=== PATIENT | female | born 1945 | race Caucasian/White ===

== ENCOUNTER 2017-04-17 18:34 | Inpatient (IN) | payer MEDICARE, MEDICAID ==
[2017-04-17 18:45] VITALS: BMI 60.2
[2017-04-17] MEDS ORDERED: Albuterol-Ipratrop 3 mg / 0.5 (3 ml) UD INH STA ×3 (19:14→22:26)
--- NOTE | 2017-04-17 19:14 | C.PDOC ---
History Of Present Illness 71 year old female was brought to the ED from shelter after being found on the floor. Patient is known to be lethargic and complains of a headache. She denies nausea, vomiting, or fever. Chief Complaint (Nursing): Altered Mental Status History Per: EMS History/Exam Limitations: None Onset/Duration Of Symptoms: Hrs Onset Of Symptoms: Cannot Confirm Onset Current Symptoms Are (Timing): Still Present Usual Baseline: Other (patient is known to be lethargic ) Use Of Anticoag/Antiplatelets: No Recent travel outside of the [place]: No Additional History Per: Patient, Halfway Associated Symptoms: denies: Fever, Vomiting, Diarrhea Past Medical History Reviewed: Historical Data, Nursing Documentation, Vital Signs Vital Signs: Last Vital Signs Temp 99.2 F 04/17/17 18:45 Pulse 79 04/17/17 22:55 Resp 16 04/17/17 22:55 BP 136/58 L 04/17/17 22:55 Pulse Ox 93 L 04/17/17 22:55 - Medical History PMH: Anemia, Anxiety, Arthritis, Bipolar Disorder, COPD (on Bipap at night), Depression, HTN, Hypothyroidism, Parkinson's Disease, Sleep Apnea (on Bipap) - [facility] [place] Procedures ASSISTANCE WITH RESPIRATORY VENTILATION, 24-96 HRS, CPAP (10/21/16) CONTINUOUS INVASIVE MECHANICAL VENTILATION <96 CONSEC HRS (12/29/12) CONTINUOUS INVASIVE MECHANICAL VENTILATION =/>96 CONSEC HRS (02/28/13) DX ULTRASOUND-HEART (08/29/13) EXCISION OF RIGHT BREAST, OPEN APPROACH, DIAGNOSTIC (09/18/15) INCIS W REM OF FORIEGN BODY OR DEV FROM SKIN & SUBCUT TISSUE (08/29/13) INSERT ENDOTRACHEAL TUBE (02/28/13) INSERT INDWELLING CATH (12/26/12) INSERTION OF INFUSION DEV INTO SUP VENA CAVA, PERC APPROACH (10/21/16) NON-INVASIVE MECHANICAL VENTILATION (08/29/13) Family History: States: Unknown Family Hx - Social History Hx Tobacco Use: (Unknown) Hx Alcohol Use: No Hx Substance Use: No - Immunization History Hx Tetanus Toxoid Vaccination: No Hx Influenza Vaccination: No Hx Pneumococcal Vaccination: No (05/28/2009) Review Of Systems Constitutional: Negative for: Fever, Chills Cardiovascular: Negative for: Chest Pain Respiratory: Negative for: Cough, Shortness of Breath Gastrointestinal: Negative for: Nausea, Vomiting, Abdominal Pain, Diarrhea Neurological: Positive for: Headache Physical Exam - Physical Exam Appears: Non-toxic, No Acute Distress Skin: Warm, Dry Head: Atraumatic Eye(s): bilateral: Normal Inspection, PERRL, EOMI Oral Mucosa: Moist Neck: Supple Chest: Symmetrical, No Deformity Cardiovascular: Rhythm Regular, No Murmur Respiratory: No Rales, No Rhonchi, No Wheezing, Other (diminished breath sounds bilaterally ) Gastrointestinal/Abdominal: Soft, No Tenderness, No Distention, No Guarding, No Rebound Extremity: No Tenderness, No Calf Tenderness, Capillary Refill (good capillary refill, less than two seconds ), No Deformity, No Swelling Neurological/Psych: Other (Patient is arousable and able to answer questions. No focal defecits. ) ED Course And Treatment - Laboratory Results Result Diagrams: 04/17/17 19:20 04/17/17 20:44 ECG: Interpreted By Me, Viewed By Wy ECG Rhythm: Sinus Rhythm ECG Interpretation: Normal, No Acute Changes Interpretation Of ECG: NSR, no T wave abnormlity, normal tracings Rate From EC O2 Sat by Pulse Oximetry: 89 (on room air. Patient at 100 Sat on O2 mask. ) Pulse Ox Interpretation: Abnormal - Radiology CXR: Interpreted by Me, Viewed By Me CXR Interpretation: Yes: No Acute Disease, Other (potable chest-no definite infiltrate noted) - CT Scan/US Head CT W/O contrast Other Rad Studies (CT/US): Read By Radiologist, Radiology Report Reviewed CT/US Interpretation: FINDINGS: Brain: There is mild cortical atrophy noted of the left cerebral hemisphere as compared to the right. No hemorrhage. No significant white matter disease. No edema. Ventricles: Unremarkable. No ventriculomegaly. Bones/joints: There is hyperostosis frontalis interna. No acute fracture. Soft tissues: There are 6 para falcine lipomas. The largest measures 3 mm. Sinuses: There is opacification of the right maxillary sinus. Mastoid air cells: Motion artifact degrades images at the skull base. There is opacification of the right. mastoid air cells.. Other: There are bilateral ocular lens implants. IMPRESSION: 1. Opacified right maxillary sinus. 2. 6 para falcine lipomas. The largest measures 3 mm. 3. Mild global atrophy of the left cerebral hemisphere as compared to the right. 4. Partial opacification of the right mastoid air cells. Progress Note: Head CT, EKG, CXR, UA, and labs were ordered. Patient was given albuterol and IV fluids. ABG shows respiratory acidosis. Patient placed on BIPAP. Family presents document of patient's DNI. Disposition Discussed With Dr.: Hayden Tovar Jr. Doctor Will See Patient In The: Hospital Counseled Patient/Family Regarding: Diagnosis - Disposition Disposition: HOSPITALIZED Disposition Time: 22:58 Condition: GUARDED Forms: [employer] (Greenlandic) - POA Present On Arrival: None - Clinical Impression Clinical Impression: Respiratory failure, COPD (chronic obstructive pulmonary disease), Acute respiratory acidosis, Urinary tract infection - Scribe Statement The provider has reviewed the documentation as recorded by the Scribe Angi Estrada All medical record entries made by the Scribe were at my direction and personally dictated by me. I have reviewed the chart and agree that the record accurately reflects my personal performance of the history, physical exam, medical decision making, and the department course for this patient. I have also personally directed, reviewed, and agree with the discharge instructions and disposition.
[2017-04-17] MEDS ORDERED: Sodium Chloride 0.9% 1,000 ML IV ONE (19:15)
[2017-04-17] MEDS ORDERED: Sodium Chloride 0.9% 1,000 ML ONE (19:26)
[2017-04-17] MEDS ORDERED: Albuterol-Ipratrop 3 mg / 0.5 (3 ml) UD ONE ×3 (19:32→23:01)
[2017-04-17 19:35] LABS: RBC URINE 3 /hpf (0-3); URINE BACTERIA RARE (<OCC); URINE BILIRUBIN NEGATIVE (NEGATIVE); URINE COLOR Amber (YELLOW); URINE GLUCOSE (UA) NORMAL (Normal); URINE KETONE TRACE mg/dL (NEGATIVE); URINE PROTEIN 2+ mg/dL (NEGATIVE); URINE UROBILINOGEN NORMAL mg/dL (0.2-1.0); WBC URINE 6 /hpf (0-5)
[2017-04-17 19:37] LABS: URINE BLOOD TRACE (NEGATIVE); URINE LEUKOCYTE ESTERASE 1+ Leu/uL (Negative)
[2017-04-17 19:39] LABS: BASO # 0.1 K/uL (0.0-0.2); BASO % 0.7 % (0.0-2.0); EOS # 0.1 K/uL (0.0-0.7); EOS % 1.1 % (0.0-4.0); HEMATOCRIT 41.3 % (34.0-47.0); LYMPH # 2.4 K/uL (1.0-4.3); LYMPH % 19.4 % (20.0-40.0); MEAN CELL VOLUME 85.4 fL (81.0-99.0); MEAN CORPUSCULAR HEMOGLOBIN 26.9 pg (27.0-31.0); MEAN CORPUSCULAR HGB CONC 31.5 g/dL (33.0-37.0); MONO % 8.1 % (0.0-10.0); NRBC % 0.1 % (0.0-2.0); RED CELL DISTRIBUTION WIDTH 14.6 % (11.5-14.5); WHITE BLOOD COUNT 12.4 K/uL (4.8-10.8)
[2017-04-17 19:42] LABS: ABG ALLEN TEST POS; ARTERIAL BLOOD HGB O2 SAT 89.3 % (95.0-98.0); DRAW SITE RRA; HHB 7.4 % (0.0-5.0); METHEMOGLOBIN 1.2 % (0.0-3.0)
[2017-04-17] MEDS ORDERED: Ciprofloxacin 400mg/200ml D5W 400 MG/200 ML BAG IVPB STA (19:53)
[2017-04-17] MEDS ORDERED: Ciprofloxacin 400mg/200ml D5W 400 MG/200 ML BAG IVPB ONE (20:02)
[2017-04-17 20:08] LABS: CHLORIDE 98 mmol/L (98-107)
[2017-04-17 20:09] LABS: POTASSIUM 5.9 mmol/L (3.6-5.2); SODIUM 134 mmol/L (132-148)
[2017-04-17 20:11] LABS: AST/SGOT 17 U/L (14-36); BILIRUBIN,TOTAL 0.5 mg/dL (0.2-1.3); BLOOD UREA NITROGEN 18 mg/dL (7-17); CARBON DIOXIDE 29 mmol/L (22-30); GFR AFRICAN-AMERICAN > 60
[2017-04-17 20:12] LABS: ALKALINE PHOSPHATASE 68 U/L (38-126); ALT/SGPT 17 U/L (9-52); CALCIUM 8.8 mg/dl (8.6-10.4); GLUCOSE,RANDOM 128 mg/dL (65-105)
[2017-04-17 21:04] LABS: CHLORIDE 97 mmol/L (98-107); POTASSIUM 5.7 mmol/L (3.6-5.2); SODIUM 135 mmol/L (132-148)
[2017-04-17 21:07] LABS: BLOOD UREA NITROGEN 19 mg/dL (7-17); CARBON DIOXIDE 29 mmol/L (22-30); GFR AFRICAN-AMERICAN > 60; GLUCOSE,RANDOM 124 mg/dL (65-105)
[2017-04-17 21:08] LABS: CALCIUM 8.9 mg/dl (8.6-10.4)
[2017-04-17] MEDS ORDERED: Sodium Bicarbonate (8.4%) 50 Meq Syringe IVP ONE (21:12)
--- NOTE | 2017-04-17 21:12 | CT ---
EXAM: CT Head Without Intravenous Contrast EXAM DATE/TIME: Exam ordered 04/17/2017 7:11 PM CLINICAL HISTORY: 71 years and in both feet with an ileus and the assessment during the she's in the she's cyst in she of 20 and now is before no, female; Pain; Headache; Headache not specified TECHNIQUE: Axial computed tomography images of the head/brain without intravenous contrast. All CT scans at this facility use one or more dose reduction techniques, viz.: automated exposure control; ma/kV adjustment per patient size (including targeted exams where dose is matched to indication; i.e. head); or iterative reconstruction technique. Coronal and sagittal reformatted images were created and reviewed. COMPARISON: No relevant prior studies available. FINDINGS: Brain: There is mild cortical atrophy noted of the left cerebral hemisphere as compared to the right. No hemorrhage. No significant white matter disease. No edema. Ventricles: Unremarkable. No ventriculomegaly. Bones/joints: There is hyperostosis frontalis interna. No acute fracture. Soft tissues: There are 6 para falcine lipomas. The largest measures 3 mm. Sinuses: There is opacification of the right maxillary sinus. Mastoid air cells: Motion artifact degrades images at the skull base. There is opacification of the right mastoid air cells.. Other: There are bilateral ocular lens implants IMPRESSION: 1. Opacified right maxillary sinus 2. 6 para falcine lipomas. The largest measures 3 mm. 3. Mild global atrophy of the left cerebral hemisphere as compared to the right 4. Partial opacification of the right mastoid air cells.
[2017-04-17] MEDS ORDERED: (Novolin R) Insulin Human Regular 100 units/ml vial IV ONE (21:13)
[2017-04-17] MEDS ORDERED: Dextrose 50% SYRINGE Inj (50 ml) IV STA (21:13)
[2017-04-17] MEDS ORDERED: Sodium Bicarbonate (8.4%) 50 Meq Syringe ONE (21:21)
[2017-04-17] MEDS ORDERED: Dextrose 50% SYRINGE Inj (50 ml) ONE (21:21)
[2017-04-17] MEDS ORDERED: (Novolin R) Insulin Human Regular 100 units/ml vial ONE (21:22)
[2017-04-17 22:53] LABS: ARTERIAL BLOOD GAS MODE BiPAP; DRAW SITE RBA
[2017-04-18] MEDS: Albuterol-Ipratrop 3 mg / 0.5 (3 ml) UD INH SCH ×4 (02:37→20:25)
--- NOTE | 2017-04-18 04:03 | CP.PCM.HP ---
History of Present Illness - History of Present Illness History of Present Illness: CC: AMS and respiratory distress HPI: Patient is a 71 year old female with past medical history of Anemia, Anxiety, Arthritis, Bipolar Disorder, COPD, Depression, HTN, Hypothyroidism, Parkinson's, Sleep Apnea (on Bipap), who was brought to the ED via [facility] her [facility] due to alerted mental status change. As per EMS, patient was found on the floor in the [facility]. During patient encounter, patient was in respiratory distress and was placed on Bipap. Patient was very lethargic therefore, ROS and detailed HPI cannot be obtained. However, patient was responsive to pain. As per conservation with Dr. Tovar and on-call flame hardening machine operator, Dr. Cobb, regarding patient's condition and stability; clinical decision was made to admit patient to the ICU for close monitoring. PMHx: Anemia, Anxiety, Arthritis, Bipolar Disorder, COPD, Depression, HTN, Hypothyroidism, Parkinson's, Sleep Apnea (on Bipap) (As per chart review) PSHx: Right knee fusion, 1 ovary removed, uterine/ovarian cyst removal, C- sections, hysterectomy (As per chart review) FHx: HTN-mother, aunt, uncle; DM-son; Breast cysts-mother. (As per chart review) Medications: Please refer to the chart Allergies: Cephalosporins, penicillins, clonazepam, mustard (As per mariam review) Social History: Smoked 5 cigs/day for 40 yrs, quit 10 yrs ago. Denies EtOH and drug use (As per mariam review) Medications given in the ER: Duonebs, Cipro 400mg IV, Dextrose 50%, Solu-Medrol , Bicarb 50meq IVP, NS @ ud, Novolin R 10 units Present on Admission - Present on Admission Any Indicators Present on Admission: No Review of Systems - Review of Systems Review of Systems: Unable to access as patient was very lethargic Past Patient History - Infectious Disease Hx of Infectious Diseases: VRE - Past Medical History & Family History Past Medical History?: Yes - Past Social History Smoking Status: Never Smoked - CARDIAC Hx Cardiac Disorders: Yes Hx Angina: Yes Hx Hypertension: Yes - PULMONARY Hx Chronic Obstructive Pulmonary Disease (COPD): Yes (on Bipap at night) Hx Sleep Apnea: Yes (on Bipap) - NEUROLOGICAL Hx Parkinson's Disease: Yes - HEENT Hx HEENT Problems: No - RENAL Hx Chronic Kidney Disease: No - ENDOCRINE/METABOLIC Hx Hypothyroidism: Yes - HEMATOLOGICAL/ONCOLOGICAL Hx Anemia: Yes - INTEGUMENTARY Hx Dermatological Problems: No - MUSCULOSKELETAL/RHEUMATOLOGICAL Hx Falls: No - GASTROINTESTINAL Hx Constipation: Yes Hx Gastroesophageal Reflux: Yes - GENITOURINARY/GYNECOLOGICAL Hx Incontinence: Yes Hx Urinary Tract Infection: Yes - PSYCHIATRIC Hx Anxiety: Yes Hx Depression: Yes Hx Substance Use: No - SURGICAL HISTORY Hx Surgeries: Yes Other/Comment: right knee replacement 2014; right knee prosthesis removal s/p infection 2014 - ANESTHESIA Hx Anesthesia: Yes Hx Anesthesia Reactions: No Hx Malignant Hyperthermia: No Meds Allergies/Adverse Reactions: Allergies Allergy/AdvReac Type Severity Reaction Status Date / Time Cephalosporins Allergy Intermediate RASH Verified 04/17/17 18:44 Penicillins Allergy Intermediate RASH Verified 04/17/17 18:44 clonazepam [From Klonopin] Allergy Verified 04/17/17 18:44 mustard Allergy Intermediate RASH Uncoded 04/17/17 18:44 Physical Exam - Constitutional Appears: Non-toxic - Head Exam Head Exam: ATRAUMATIC - Respiratory Exam Respiratory Exam: Rales Additional comments: Limited due to patient habitus On BIPAP - Cardiovascular Exam Cardiovascular Exam: REGULAR RHYTHM, +S1, +S2 - GI/Abdominal Exam GI & Abdominal Exam: Normal Bowel Sounds, Soft - Extremities Exam Extremities exam: Positive for: tenderness. Negative for: pedal edema Additional comments: Patient was responsive with sign of discomfort upon palpation Results - Vital Signs Recent Vital Signs: Last Vital Signs Temp 96.9 F L 04/18/17 00:00 Pulse 94 H 04/18/17 03:30 Resp 14 04/18/17 03:30 BP 127/69 04/18/17 03:24 Pulse Ox 99 04/18/17 03:30 - Labs Result Diagrams: 04/17/17 19:20 04/17/17 20:44 Assessment & Plan (1) Acute respiratory acidosis Assessment and Plan: Cane Loader, Dr. Cobb consulted--> help appreciated * Admitted to the ICU ABG: * pH: 7.18 * PCO2: 96 * PO2: 62 * HCO3: 27.8 -Duonebs RQ6 PRN -Solumedrol 40mg IV Q8H Status: Acute (2) Hypothyroidism Assessment and Plan: - Synthroid 150mcg PO daily Status: Acute (3) HTN (hypertension) Assessment and Plan: Continue home medications * Coreg 25mg PO BID * Hydralazine 50mg PO DAILY * Imdur 30mg PO DAILY Status: Acute (4) Leukocytosis Assessment and Plan: On admission: -WBC: 12.4 -Cipro 200mg IV Q12H - NS @ 100MLS/HR - Monitor with am labs Status: Acute (5) Parkinsons Assessment and Plan: Continue home medications: - Sinemet 2 tab PO TID Status: Chronic (6) Prophylactic measure Assessment and Plan: - Scds - Pepcid 20mg PO BID Status: Acute
[2017-04-18] MEDS: MethylPREDNISolone 40 mg Vial IVP SCH ×3 (06:21→21:41)
[2017-04-18 06:56] LABS: CHLORIDE 95 mmol/L (98-107); POTASSIUM 5.4 mmol/L (3.6-5.2); SODIUM 137 mmol/L (132-148)
[2017-04-18 06:58] LABS: ALKALINE PHOSPHATASE 75 U/L (38-126); AST/SGOT 16 U/L (14-36); BILIRUBIN,TOTAL 0.4 mg/dL (0.2-1.3); CARBON DIOXIDE 27 mmol/L (22-30); GFR AFRICAN-AMERICAN > 60; TOTAL PROTEIN 7.4 g/dL (6.3-8.3)
[2017-04-18 06:59] LABS: ALT/SGPT 16 U/L (9-52); BLOOD UREA NITROGEN 23 mg/dL (7-17); CALCIUM 8.8 mg/dl (8.6-10.4); GLUCOSE,RANDOM 155 mg/dL (65-105); MAGNESIUM 2.2 mg/dL (1.6-2.3); PHOSPHOROUS 4.8 mg/dL (2.5-4.5)
[2017-04-18 08:15] LABS: BASO % 0.2 % (0.0-2.0); EOS % 0.1 % (0.0-4.0); HEMATOCRIT 39.9 % (34.0-47.0); LYMPH % 8.4 % (20.0-40.0); MEAN CELL VOLUME 86.3 fL (81.0-99.0); MEAN CORPUSCULAR HEMOGLOBIN 27.1 pg (27.0-31.0); MEAN CORPUSCULAR HGB CONC 31.4 g/dL (33.0-37.0); MEAN PLATELET VOLUME 8.3 fL (7.2-11.7); MONO # 0.2 K/uL (0.0-0.8); MONO % 1.2 % (0.0-10.0); PLATELET COUNT 284 K/uL (130-400); RED CELL DISTRIBUTION WIDTH 14.7 % (11.5-14.5); WHITE BLOOD COUNT 12.5 K/uL (4.8-10.8)
--- NOTE | 2017-04-18 08:28 | RAD ---
HISTORY: hypoxemia COMPARISON: 10/20/2016 FINDINGS: LUNGS: Limited exam given marked shallow lung volumes. Left lung base pathology-not excluded. No gross change appreciated between exams. PLEURA: Probable pleural effusion -similar-appearing, no pneumothorax apparent. CARDIOVASCULAR: Cardiomegaly leaving given the lung volumes suspect. Mild pulmonary venous congestion -a consideration -shallow lung volumes and crowding likely contributory OSSEOUS STRUCTURES: No significant abnormalities. VISUALIZED UPPER ABDOMEN: Normal. OTHER FINDINGS: None. IMPRESSION: As before, markedly limited exam- per very shallow lung volumes. No interval mid or upper lobe infiltrates. Cardiomegaly and pulmonary vasculature pattern - similar-appearing. Pulmonary venous congestion with small left pleural effusion probable
[2017-04-18 09:14] LABS: ABG ALLEN TEST POS; ARTERIAL BLOOD GAS MODE BiPAP; DRAW SITE RR
[2017-04-18 09:18] LABS: TOTAL CELLS COUNTED 100
[2017-04-18 09:24] LABS: NEUTROPHIL 90 % (50-75)
[2017-04-18] MEDS: Levothyroxine 150 MCG TAB PO SCH (09:31)
[2017-04-18] MEDS: Ciprofloxacin 200mg/100ml D5W 100 ML IVPB SCH ×2 (11:26→21:49)
[2017-04-18] MEDS: Clotrimazole 1% Cream 15 GM TUBE TOP SCH ×2 (12:24→17:26)
--- NOTE | 2017-04-18 15:10 | CP.PCM.CON ---
<Brian Dean R - Last Filed: 04/18/17 15:07> History of Present Illness - History of Present Illness History of Present Illness: CC: AMS and respiratory distress HPI: Patient is a 71 year old female with past medical history of Anemia, Anxiety, Arthritis, Bipolar Disorder, COPD, Depression, HTN, Hypothyroidism, Parkinson's, Sleep Apnea (on Bipap), who was brought to the ED via EMS from her long-term due to alerted mental status change. As per EMS, patient was found on the floor in the long-term. During patient encounter, patient was in respiratory distress and was placed on Bipap. Patient was very lethargic therefore, ROS and detailed HPI cannot be obtained. However, patient was responsive to pain. As per conservation with Dr. Tovar and on-call lens finisher, Dr. Cobb, regarding patient's condition and stability; clinical decision was made to admit patient to the ICU for close monitoring. PMHx: Anemia, Anxiety, Arthritis, Bipolar Disorder, COPD, Depression, HTN, Hypothyroidism, Parkinson's, Sleep Apnea (on Bipap) (As per chart review) PSHx: Right knee fusion, 1 ovary removed, uterine/ovarian cyst removal, C- sections, hysterectomy (As per chart review) FHx: HTN-mother, aunt, uncle; DM-son; Breast cysts-mother. (As per chart review) Medications: Please refer to the chart Allergies: Cephalosporins, penicillins, clonazepam, mustard (As per mariam review) Social History: Smoked 5 cigs/day for 40 yrs, quit 10 yrs ago. Denies EtOH and drug use (As per mariam review) Medications given in the ER: Duonebs, Cipro 400mg IV, Dextrose 50%, Solu-Medrol , Bicarb 50meq IVP, NS @ ud, Novolin R 10 units Review of Systems - Review of Systems Systems not reviewed;Unavailable: Respiratory Distress Past Patient History - Infectious Disease Hx of Infectious Diseases: VRE - Past Medical History & Family History Past Medical History?: Yes - Past Social History Smoking Status: Never Smoked - CARDIAC Hx Cardiac Disorders: Yes Hx Angina: Yes Hx Hypertension: Yes - PULMONARY Hx Chronic Obstructive Pulmonary Disease (COPD): Yes (on Bipap at night) Hx Sleep Apnea: Yes (on Bipap) - NEUROLOGICAL Hx Parkinson's Disease: Yes - HEENT Hx HEENT Problems: No - RENAL Hx Chronic Kidney Disease: No - ENDOCRINE/METABOLIC Hx Hypothyroidism: Yes - HEMATOLOGICAL/ONCOLOGICAL Hx Anemia: Yes - INTEGUMENTARY Hx Dermatological Problems: No - MUSCULOSKELETAL/RHEUMATOLOGICAL Hx Falls: No - GASTROINTESTINAL Hx Constipation: Yes Hx Gastroesophageal Reflux: Yes - GENITOURINARY/GYNECOLOGICAL Hx Incontinence: Yes Hx Urinary Tract Infection: Yes - PSYCHIATRIC Hx Anxiety: Yes Hx Depression: Yes Hx Substance Use: No - SURGICAL HISTORY Hx Surgeries: Yes Other/Comment: right knee replacement 2014; right knee prosthesis removal s/p infection 2014 - ANESTHESIA Hx Anesthesia: Yes Hx Anesthesia Reactions: No Hx Malignant Hyperthermia: No Meds Allergies/Adverse Reactions: Allergies Allergy/AdvReac Type Severity Reaction Status Date / Time Cephalosporins Allergy Intermediate RASH Verified 04/17/17 18:44 Penicillins Allergy Intermediate RASH Verified 04/17/17 18:44 clonazepam [From Klonopin] Allergy Verified 04/17/17 18:44 mustard Allergy Intermediate RASH Uncoded 04/17/17 18:44 - Medications Medications: Current Medications Albuterol/Ipratropium (Duoneb 3 Mg/0.5 Mg (3 Ml) Ud) 3 ml INH RQ6 [facility] Last Admin: 04/18/17 14:08 Dose: 3 ml Carbidopa/Levodopa (Sinemet) 2 tab PO TID [facility] Last Admin: 04/18/17 13:56 Dose: 2 tab Carvedilol (Coreg) 25 mg PO BID [facility] Last Admin: 04/18/17 09:31 Dose: 25 mg Clotrimazole (Lotrimin 1%) 15 gm TOP BID [facility] Last Admin: 04/18/17 12:24 Dose: 1 applic Docusate Sodium (Colace) 200 mg PO HS [facility] Famotidine (Pepcid) 20 mg PO BID [facility] Last Admin: 04/18/17 09:31 Dose: 20 mg Heparin Sodium (Porcine) (Heparin) 5,000 units SC Q8 [facility] Last Admin: 04/18/17 13:54 Dose: 5,000 units Hydralazine HCl (Apresoline) 50 mg PO DAILY [facility] Last Admin: 04/18/17 09:32 Dose: 50 mg Ciprofloxacin (Cipro 200mg/100ml D5w) 100 mls @ 67 mls/hr IVPB Q12H [facility] Last Admin: 04/18/17 11:26 Dose: 67 mls/hr Isosorbide Mononitrate (Imdur) 30 mg PO DAILY [facility] Last Admin: 04/18/17 09:31 Dose: 30 mg Lactulose (Enulose) 10 gm PO [facility] Levothyroxine Sodium (Synthroid) 150 mcg PO DAILY@0630 [facility] Last Admin: 04/18/17 09:31 Dose: 150 mcg Methylprednisolone (Solu-Medrol) 40 mg IVP Q8 [facility] Last Admin: 04/18/17 13:53 Dose: 40 mg Sennosides (Senokot Tab) 8.6 mg PO [facility] Physical Exam - Constitutional Appears: Non-toxic - Head Exam Head Exam: ATRAUMATIC - Respiratory Exam Respiratory Exam: Rales Additional comments: limited due to patient habitus; on bipap - Cardiovascular Exam Cardiovascular Exam: REGULAR RHYTHM, +S1, +S2 - GI/Abdominal Exam GI & Abdominal Exam: Normal Bowel Sounds, Soft - Extremities Exam Extremities exam: Positive for: normal inspection - Skin Skin Exam: Dry, Intact, Normal Color, Warm Results - Vital Signs Recent Vital Signs: Last Vital Signs Temp 97 F L 04/18/17 04:00 Pulse 83 04/18/17 14:08 Resp 12 04/18/17 07:00 BP 144/73 04/18/17 09:31 Pulse Ox 98 04/18/17 07:00 - Labs Result Diagrams: 04/18/17 07:59 04/18/17 06:34 Labs: Laboratory Results - last 24 hr 04/18/17 04/18/17 04/18/17 06:34 07:59 09:09 WBC 12.5 H RBC 4.63 Hgb 12.5 Hct 39.9 MCV 86.3 MCH 27.1 MCHC 31.4 L RDW 14.7 H Plt Count 284 MPV 8.3 Neut % (Auto) 90.1 H Lymph % (Auto) 8.4 L [place] % (Auto) 1.2 Eos % (Auto) 0.1 Baso % (Auto) 0.2 Neut # 11.3 H Lymph # 1.0 [place] # 0.2 Eos # 0.0 Baso # 0.0 Neutrophils % (Manual) 90 H Lymphocytes % (Manual) 9 L Monocytes % (Manual) 1 Platelet Estimate Normal Basophilic Stippling Slight Puncture Site Rr pCO2 85 H* pO2 78 L HCO3 24.1 ABG pH 7.16 L* ABG Total CO2 32.9 H ABG O2 Saturation 97.0 ABG Base Excess -0.8 Donta Test Pos ABG Potassium 4.8 A-a O2 Difference 30.0 Respiratory Index 0.4 Glucose 157 H Lactate 0.5 L Vent Mode Bipap FiO2 30.0 Inspiratory BiPAP 18 Expiratory BiPAP 8 Crit Value Called To Dr sutton Crit Value Called By Neris delvalle flight service specialist Crit Value Read Back Y Blood Gas Notified Time 915 Sodium 137 138.0 Potassium 5.4 H Chloride 95 L 102.0 Carbon Dioxide 27 Anion Gap 20 BUN 23 H Creatinine 0.8 Est GFR ( Amer) > 60 Est GFR (Non-Af Amer) > 60 Random Glucose 155 H Calcium 8.8 Phosphorus 4.8 H Magnesium 2.2 Total Bilirubin 0.4 AST 16 ALT 16 Alkaline Phosphatase 75 Total Protein 7.4 Albumin 3.7 Globulin 3.8 Albumin/Globulin Ratio 1.0 Arterial Blood Potassium 4.8 Assessment & Plan - Assessment and Plan (Free Text) Assessment: Patient is a 71 year old female with past medical history of Anemia, Anxiety, Arthritis, Bipolar Disorder, COPD, Depression, HTN, Hypothyroidism, Parkinson's , Sleep Apnea (on Bipap), who was brought to the ED via EMS from her long-term due to alerted mental status change. During encounter patient found to be in respiratory distress and was placed on Bipap. POLST form has been filled and patient is DNI. Neuro: Hx of Parkinson's - Carbidopa/Levodopa 2 tab po tid Pulmonary: Hx of COPD - retaining CO2, acidodic - duoneb - methylprednisolone 40mg iv q8 - follow ABGs - DNI CV: Hx of HTN - carvedilol 25mg po bid - hydralazine 50mg po daily - isosorbide 30mg po daily Endocrine: Hx of hypothyroidism - levothyroxine 150 mcg po daily GI: - docusate 200mg po hs - famotidine 20mg po bid - lactulose 10g po hs - sennosides 8.6mg po hs Hematology: Hx of anemia - H/H wnl Renal: elevated BUN - BUN/Cr: 23/0.8 MSK: ID: leukocytosis - UA: (+) protein, (+) trace blood, (+) leukocyte esterase, (+) wbc, (+) hyaline casts - ciprofloxacin 200mg iv q12 - clotrimazole 15mg topical - F/U blood cx, urine cx, MRSA screen Prophylaxis: - GI: famotidine 20mg po bid - DVT: heparin 5000u q8, SCDs - Diet: NPO <Tray Sutton P - Last Filed: 04/18/17 20:52> Meds - Medications Medications: Current Medications Albuterol/Ipratropium (Duoneb 3 Mg/0.5 Mg (3 Ml) Ud) 3 ml INH RQ6 [facility] Last Admin: 04/18/17 20:25 Dose: 3 ml Carbidopa/Levodopa (Sinemet) 2 tab PO TID [facility] Last Admin: 04/18/17 18:00 Dose: 2 tab Carvedilol (Coreg) 25 mg PO BID [facility] Last Admin: 04/18/17 17:24 Dose: 25 mg Clotrimazole (Lotrimin 1%) 15 gm TOP BID [facility] Last Admin: 04/18/17 17:26 Dose: 1 applic Docusate Sodium (Colace) 200 mg PO HS [facility] Famotidine (Pepcid) 20 mg PO BID [facility] Last Admin: 04/18/17 17:24 Dose: 20 mg Heparin Sodium (Porcine) (Heparin) 5,000 units SC Q8 [facility] Last Admin: 04/18/17 13:54 Dose: 5,000 units Hydralazine HCl (Apresoline) 50 mg PO DAILY [facility] Last Admin: 04/18/17 09:32 Dose: 50 mg Ciprofloxacin (Cipro 200mg/100ml D5w) 100 mls @ 67 mls/hr IVPB Q12H [facility] Last Admin: 04/18/17 11:26 Dose: 67 mls/hr Isosorbide Mononitrate (Imdur) 30 mg PO DAILY [facility] Last Admin: 04/18/17 09:31 Dose: 30 mg Lactulose (Enulose) 10 gm PO [facility] Levothyroxine Sodium (Synthroid) 150 mcg PO DAILY@0630 [facility] Last Admin: 04/18/17 09:31 Dose: 150 mcg Methylprednisolone (Solu-Medrol) 40 mg IVP Q8 [facility] Last Admin: 04/18/17 13:53 Dose: 40 mg Sennosides (Senokot Tab) 8.6 mg PO HS [facility] Results - Vital Signs Recent Vital Signs: Last Vital Signs Temp 98.5 F 04/18/17 20:00 Pulse 71 04/18/17 20:30 Resp 10 L 04/18/17 20:30 BP 119/56 L 04/18/17 20:11 Pulse Ox 99 04/18/17 20:30 - Labs Result Diagrams: 04/18/17 07:59 04/18/17 06:34 Labs: Laboratory Results - last 24 hr 04/18/17 04/18/17 04/18/17 06:34 07:59 09:09 WBC 12.5 H RBC 4.63 Hgb 12.5 Hct 39.9 MCV 86.3 MCH 27.1 MCHC 31.4 L RDW 14.7 H Plt Count 284 MPV 8.3 Neut % (Auto) 90.1 H Lymph % (Auto) 8.4 L [place] % (Auto) 1.2 Eos % (Auto) 0.1 Baso % (Auto) 0.2 Neut # 11.3 H Lymph # 1.0 [place] # 0.2 Eos # 0.0 Baso # 0.0 Neutrophils % (Manual) 90 H Lymphocytes % (Manual) 9 L Monocytes % (Manual) 1 Platelet Estimate Normal Basophilic Stippling Slight Puncture Site Rr pCO2 85 H* pO2 78 L HCO3 24.1 ABG pH 7.16 L* ABG Total CO2 32.9 H ABG O2 Saturation 97.0 ABG Base Excess -0.8 ABG Hemoglobin ABG Carboxyhemoglobin POC ABG HHb (Measured) ABG Methemoglobin Donta Test Pos ABG Potassium 4.8 A-a O2 Difference 30.0 Respiratory Index 0.4 Hgb O2 Saturation Glucose 157 H Lactate 0.5 L Vent Mode Bipap FiO2 30.0 Inspiratory BiPAP 18 Expiratory BiPAP 8 Crit Value Called To Dr sutton Crit Value Called By Neris delvalle flight service specialist Crit Value Read Back Y Blood Gas Notified Time 915 Sodium 137 138.0 Potassium 5.4 H Chloride 95 L 102.0 Carbon Dioxide 27 Anion Gap 20 BUN 23 H Creatinine 0.8 Est GFR ( Amer) > 60 Est GFR (Non-Af Amer) > 60 Random Glucose 155 H Calcium 8.8 Phosphorus 4.8 H Magnesium 2.2 Total Bilirubin 0.4 AST 16 ALT 16 Alkaline Phosphatase 75 Total Protein 7.4 Albumin 3.7 Globulin 3.8 Albumin/Globulin Ratio 1.0 Arterial Blood Potassium 4.8 04/18/17 16:20 WBC RBC Hgb Hct MCV MCH MCHC RDW Plt Count MPV Neut % (Auto) Lymph % (Auto) [place] % (Auto) Eos % (Auto) Baso % (Auto) Neut # Lymph # [place] # Eos # Baso # Neutrophils % (Manual) Lymphocytes % (Manual) Monocytes % (Manual) Platelet Estimate Basophilic Stippling Puncture Site Rra pCO2 69 H pO2 93 HCO3 27.9 ABG pH 7.28 L ABG Total CO2 34.5 H ABG O2 Saturation 98.5 H ABG Base Excess 3.8 H ABG Hemoglobin 12.2 ABG Carboxyhemoglobin 1.7 H POC ABG HHb (Measured) 1.5 ABG Methemoglobin 1.1 Donta Test Pos ABG Potassium A-a O2 Difference 35.0 Respiratory Index 0.4 Hgb O2 Saturation 95.8 Glucose Lactate Vent Mode FiO2 30.0 Inspiratory BiPAP 18 Expiratory BiPAP 9 Crit Value Called To Crit Value Called By Crit Value Read Back Blood Gas Notified Time Sodium Potassium Chloride Carbon Dioxide Anion Gap BUN Creatinine Est GFR ( Amer) Est GFR (Non-Af Amer) Random Glucose Calcium Phosphorus Magnesium Total Bilirubin AST ALT Alkaline Phosphatase Total Protein Albumin Globulin Albumin/Globulin Ratio Arterial Blood Potassium Attending/Attestation - Attestation I have personally seen and examined this patient.: Yes I have fully participated in the care of the patient.: Yes I have reviewed all pertinent clinical information: Yes Notes (Text): Patient was admitted overnight to the ICU Patient is a 71 year old female with past medical history of Anemia, Anxiety, Arthritis, Bipolar Disorder, COPD, Depression, HTN, Hypothyroidism, Parkinson's , Sleep Apnea, obesity hypoventilation on bipap, DNI on POLST was admitted with lethargy with severe CO2 retention in 90's resp acidosis, patient since in ICU on BIPAP FIO2 30% has been more awake but pleasantly confused with improvement in Ph to 7.26, PCO2 69. Empiric iv cipro started for the uti, continued home meds, no sedatives, dvt prophylaxis heparin subq, gi prophylaxis.
[2017-04-18 16:28] LABS: ABG ALLEN TEST POS; ARTERIAL BLOOD HGB O2 SAT 95.8 % (95.0-98.0); CARBOXYHEMOGLOBIN 1.7 % (0.5-1.5); DRAW SITE RRA; HHB 1.5 % (0.0-5.0); METHEMOGLOBIN 1.1 % (0.0-3.0)
--- NOTE | 2017-04-18 21:55 | CARD ---
APPROVED REPORT EKG Measurement Heart [id number] <Conclusion> Normal sinus rhythm Normal ECG
[2017-04-19] MEDS: Albuterol-Ipratrop 3 mg / 0.5 (3 ml) UD INH SCH ×2 (01:58→08:14)
[2017-04-19 05:42] LABS: BASO % 0.1 % (0.0-2.0); HEMATOCRIT 36.2 % (34.0-47.0); LYMPH # 0.9 K/uL (1.0-4.3); LYMPH % 10.1 % (20.0-40.0); MEAN CELL VOLUME 85.2 fL (81.0-99.0); MEAN CORPUSCULAR HEMOGLOBIN 26.4 pg (27.0-31.0); MEAN PLATELET VOLUME 9.1 fL (7.2-11.7); MONO # 0.2 K/uL (0.0-0.8); MONO % 1.8 % (0.0-10.0); RED CELL DISTRIBUTION WIDTH 14.5 % (11.5-14.5); WHITE BLOOD COUNT 9.2 K/uL (4.8-10.8)
[2017-04-19] MEDS: MethylPREDNISolone 40 mg Vial IVP SCH ×3 (05:42→21:28)
[2017-04-19] MEDS: Levothyroxine 150 MCG TAB PO SCH (05:58)
[2017-04-19 06:10] LABS: CHLORIDE 96 mmol/L (98-107); POTASSIUM 4.8 mmol/L (3.6-5.2); SODIUM 136 mmol/L (132-148)
[2017-04-19 06:12] LABS: BILIRUBIN,TOTAL 0.3 mg/dL (0.2-1.3); GFR AFRICAN-AMERICAN > 60
[2017-04-19 06:13] LABS: ALKALINE PHOSPHATASE 68 U/L (38-126); ALT/SGPT 22 U/L (9-52); AST/SGOT 27 U/L (14-36); BLOOD UREA NITROGEN 29 mg/dL (7-17); CARBON DIOXIDE 29 mmol/L (22-30); GLUCOSE,RANDOM 135 mg/dL (65-105); PHOSPHOROUS 2.9 mg/dL (2.5-4.5); TOTAL PROTEIN 6.8 g/dL (6.3-8.3)
[2017-04-19 06:14] LABS: CALCIUM 8.9 mg/dl (8.6-10.4); MAGNESIUM 2.4 mg/dL (1.6-2.3)
[2017-04-19 06:21] LABS: ABG ALLEN TEST POS; ARTERIAL BLOOD GAS MODE BiPAP; ARTERIAL BLOOD HGB O2 SAT 95.9 % (95.0-98.0); CARBOXYHEMOGLOBIN 1.5 % (0.5-1.5); DRAW SITE R RAD; HHB 1.4 % (0.0-5.0); METHEMOGLOBIN 1.2 % (0.0-3.0)
[2017-04-19] MEDS: Ciprofloxacin 200mg/100ml D5W 100 ML IVPB SCH ×2 (10:12→21:29)
[2017-04-19] MEDS: Clotrimazole 1% Cream 15 GM TUBE TOP SCH ×2 (10:19→17:28)
--- NOTE | 2017-04-19 11:57 | RAD ---
HISTORY: leukocytosis, respiratory distress, COPD COMPARISON: Comparison is made to 04/17/2017 FINDINGS: LUNGS: This study is again limited due to the patient's body habitus. Interval mild improvement in the lungs since the previous exam. PLEURA: No significant pleural effusion identified, no pneumothorax apparent. CARDIOVASCULAR: Cardiomegaly is again noted. OSSEOUS STRUCTURES: No significant abnormalities. VISUALIZED UPPER ABDOMEN: Normal. OTHER FINDINGS: None. IMPRESSION: Limited study due to the patient's body habitus. Interval mild improvement in the lungs since the previous exam. Suspicious for cardiomegaly.
[2017-04-19] MEDS ORDERED: Albuterol-Ipratrop 3 mg / 0.5 (3 ml) UD INH SCH (12:00)
[2017-04-19] MEDS: Albuterol-Ipratrop 3 mg / 0.5 (3 ml) UD INH PRN (14:08)
--- NOTE | 2017-04-19 15:24 | CP.CCUPN ---
<JermaineBrian R - Last Filed: 04/19/17 16:43> CCU Subjective - Physician Review Subjective (Free Text): Patient was seen and examined at bedside. Patient is alert, conversational, and much improved since yesterday when she was very confused. She complains of headache and pain in her legs b/l (hx of diabetic neuropathy). She had no other complaints. She denies chest pain, shortness of breath, abdominal pain, states she had a BM and is urinating normally. 04/19/17 16:43 CCU Objective - Vital Signs / Intake & Output Vital Signs (Last 4 hours): Vital Signs Pulse Resp BP Pulse Ox 04/19/17 12:11 66 20 135/69 97 04/19/17 11:53 71 Intake and Output (Last 8hrs): Intake & Output 04/19/17 04/19/17 04/19/17 06:59 14:59 22:59 Intake Total 440 100 Output Total 1050 400 Balance -610 -300 Weight 326 lb 4.546 oz Intake: Intake, IV Amount 100 100 Right Upper arm 100 Right Wrist 100 Oral 340 0 Output: Urine 1050 400 Urine, Voided 1050 400 Other: # Bowel Movements 0 0 - Physical Exam Narrative Physical Exam (Free Text): morbid obesity 04/19/17 15:44 Head: Positive for: Atraumatic Pupils: Positive for: PERRL Respiratory/Chest: Positive for: Decreased Breath Sounds, Rales, Other (limited pulmonary exam due to patient habitus; on bipap) Cardiovascular: Positive for: Regular Rate and Rhythm, Normal S1, S2 Abdomen: Positive for: Normal Bowel Sounds Upper Extremity: Negative for: Edema Lower Extremity: Positive for: Normal Inspection, NORMAL PULSES, Neurovascularly Intact, Capillary Refill < 2 s. Negative for: Edema, Cyanosis, Tenderness Skin: Positive for: Warm, Normal Color - Medications Active Medications: Active Medications Generic Name Dose Route Start Last Admin Trade Name Freq PRN Reason Stop Dose Admin Albuterol/Ipratropium 3 ml 04/19/17 09:45 04/19/17 14:08 Duoneb 3 Mg/0.5 Mg (3 Ml) Ud INH 3 ml QID PRN Administration Shortness of Breath Carbidopa/Levodopa 2 tab 04/18/17 18:00 04/19/17 13:41 Sinemet PO 2 tab TID TIMOTEO Administration Carvedilol 25 mg 04/18/17 10:00 04/19/17 10:19 Coreg PO 25 mg BID TIMOTEO Administration Clotrimazole 15 gm 04/18/17 10:00 04/19/17 10:19 Lotrimin 1% TOP 1 applic BID TIMOTEO Administration Docusate Sodium 200 mg 04/18/17 22:00 04/18/17 21:40 Colace PO 200 mg HS TIMOTEO Administration Famotidine 20 mg 04/18/17 10:00 04/19/17 10:19 Pepcid PO 20 mg BID TIMOTEO Administration Heparin Sodium (Porcine) 5,000 units 04/18/17 09:30 04/19/17 13:41 Heparin SC 5,000 units Q8 TIMOTEO Administration Hydralazine HCl 50 mg 04/18/17 10:00 04/19/17 10:19 Apresoline PO 50 mg DAILY TIMOTEO Administration Ciprofloxacin 100 mls @ 67 mls/hr 04/18/17 10:00 04/19/17 10:12 Cipro 200mg/100ml D5w IVPB 67 mls/hr Q12H TIMOTEO Administration Isosorbide Mononitrate 30 mg 04/18/17 10:00 04/19/17 10:19 Imdur PO 30 mg DAILY TIMOTEO Administration Lactulose 10 gm 04/18/17 22:00 04/18/17 21:41 Enulose PO 10 gm HS TIMOTEO Administration Levothyroxine Sodium 150 mcg 04/18/17 06:30 04/19/17 05:58 Synthroid PO 150 mcg DAILY@0630 TIMOTEO Administration Methylprednisolone 40 mg 04/18/17 06:00 04/19/17 15:15 Solu-Medrol IVP 40 mg Q8 TIMOTEO Administration Sennosides 8.6 mg 04/18/17 22:00 04/18/17 21:41 Senokot Tab PO 8.6 mg HS TIMOTEO Administration - Patient Studies Lab Studies: Microbiology Studies 04/18/17 08:50 MRSA Culture (Admit) - Final Naris MRSA NOT DETECTED Lab Studies 04/19/17 04/19/17 04/19/17 Range/Units 13:24 05:36 05:36 WBC 9.2 (4.8-10.8) K/uL RBC 4.25 (3.80-5.20) Mil/uL Hgb 11.2 (11.0-16.0) g/dL Hct 36.2 (34.0-47.0) % MCV 85.2 (81.0-99.0) fL MCH 26.4 L (27.0-31.0) pg MCHC 31.0 L (33.0-37.0) g/dL RDW 14.5 (11.5-14.5) % Plt Count 267 (130-400) K/uL MPV 9.1 (7.2-11.7) fL Neut % (Auto) 88.0 H (50.0-75.0) % Lymph % (Auto) 10.1 L (20.0-40.0) % [place] % (Auto) 1.8 (0.0-10.0) % Eos % (Auto) 0.0 (0.0-4.0) % Baso % (Auto) 0.1 (0.0-2.0) % Neut # 8.1 H (1.8-7.0) K/uL Lymph # 0.9 L (1.0-4.3) K/uL [place] # 0.2 (0.0-0.8) K/uL Eos # 0.0 (0.0-0.7) K/uL Baso # 0.0 (0.0-0.2) K/uL Puncture Site pCO2 (35-45) mm/Hg pO2 (80-100) mm/Hg HCO3 (21-28) mmol/L ABG pH (7.35-7.45) ABG Total CO2 (22-28) mmol/L ABG O2 Saturation (95-98) % ABG Base Excess (-2.0-3.0) mmol/L ABG Hemoglobin (11.7-17.4) g/dL ABG Carboxyhemoglobin (0.5-1.5) % POC ABG HHb (Measured) (0.0-5.0) % ABG Methemoglobin (0.0-3.0) % [place] Test A-a O2 Difference mm/Hg Respiratory Index Hgb O2 Saturation (95.0-98.0) % Vent Mode FiO2 % Inspiratory BiPAP Expiratory BiPAP Sodium 136 (132-148) mmol/L Potassium 4.8 (3.6-5.2) mmol/L Chloride 96 L (98-107) mmol/L Carbon Dioxide 29 (22-30) mmol/L Anion Gap 16 (10-20) BUN 29 H (7-17) mg/dL Creatinine 0.7 (0.7-1.2) MG/DL Est GFR ( Amer) > 60 Est GFR (Non-Af Amer) > 60 POC Glucose (mg/dL) 128 H (65-110) mg/dL Random Glucose 135 H (65-105) mg/dL Calcium 8.9 (8.6-10.4) mg/dl Phosphorus 2.9 (2.5-4.5) mg/dL Magnesium 2.4 H (1.6-2.3) mg/dL Total Bilirubin 0.3 (0.2-1.3) mg/dL AST 27 (14-36) U/L ALT 22 (9-52) U/L Alkaline Phosphatase 68 (38-126) U/L Total Protein 6.8 (6.3-8.3) g/dL Albumin 3.4 L (3.5-5.0) g/dL Globulin 3.4 (2.2-3.9) gm/dL Albumin/Globulin Ratio 1.0 (1.0-2.1) 04/19/17 04/18/17 Range/Units 04:56 16:20 WBC (4.8-10.8) K/uL RBC (3.80-5.20) Mil/uL Hgb (11.0-16.0) g/dL Hct (34.0-47.0) % MCV (81.0-99.0) fL MCH (27.0-31.0) pg MCHC (33.0-37.0) g/dL RDW (11.5-14.5) % Plt Count (130-400) K/uL MPV (7.2-11.7) fL Neut % (Auto) (50.0-75.0) % Lymph % (Auto) (20.0-40.0) % [place] % (Auto) (0.0-10.0) % Eos % (Auto) (0.0-4.0) % Baso % (Auto) (0.0-2.0) % Neut # (1.8-7.0) K/uL Lymph # (1.0-4.3) K/uL [place] # (0.0-0.8) K/uL Eos # (0.0-0.7) K/uL Baso # (0.0-0.2) K/uL Puncture Site R rad Rra pCO2 67 H 69 H (35-45) mm/Hg pO2 116 H 93 (80-100) mm/Hg HCO3 28.6 H 27.9 (21-28) mmol/L ABG pH 7.30 L 7.28 L (7.35-7.45) ABG Total CO2 35.1 H 34.5 H (22-28) mmol/L ABG O2 Saturation 98.6 H 98.5 H (95-98) % ABG Base Excess 4.7 H 3.8 H (-2.0-3.0) mmol/L ABG Hemoglobin 12.1 12.2 (11.7-17.4) g/dL ABG Carboxyhemoglobin 1.5 1.7 H (0.5-1.5) % POC ABG HHb (Measured) 1.4 1.5 (0.0-5.0) % ABG Methemoglobin 1.2 1.1 (0.0-3.0) % [place] Test Pos Pos A-a O2 Difference -21.0 35.0 mm/Hg Respiratory Index -0.2 0.4 Hgb O2 Saturation 95.9 95.8 (95.0-98.0) % Vent Mode Bipap FiO2 25.0 30.0 % Inspiratory BiPAP 18 18 Expiratory BiPAP 9 9 Sodium (132-148) mmol/L Potassium (3.6-5.2) mmol/L Chloride (98-107) mmol/L Carbon Dioxide (22-30) mmol/L Anion Gap (10-20) BUN (7-17) mg/dL Creatinine (0.7-1.2) MG/DL Est GFR ( Amer) Est GFR (Non-Af Amer) POC Glucose (mg/dL) (65-110) mg/dL Random Glucose (65-105) mg/dL Calcium (8.6-10.4) mg/dl Phosphorus (2.5-4.5) mg/dL Magnesium (1.6-2.3) mg/dL Total Bilirubin (0.2-1.3) mg/dL AST (14-36) U/L ALT (9-52) U/L Alkaline Phosphatase (38-126) U/L Total Protein (6.3-8.3) g/dL Albumin (3.5-5.0) g/dL Globulin (2.2-3.9) gm/dL Albumin/Globulin Ratio (1.0-2.1) Laboratory Results - last 24 hr 04/18/17 04/19/17 04/19/17 16:20 04:56 05:36 WBC 9.2 RBC 4.25 Hgb 11.2 Hct 36.2 MCV 85.2 MCH 26.4 L MCHC 31.0 L RDW 14.5 Plt Count 267 MPV 9.1 Neut % (Auto) 88.0 H Lymph % (Auto) 10.1 L [place] % (Auto) 1.8 Eos % (Auto) 0.0 Baso % (Auto) 0.1 Neut # 8.1 H Lymph # 0.9 L [place] # 0.2 Eos # 0.0 Baso # 0.0 Puncture Site Rra R rad pCO2 69 H 67 H pO2 93 116 H HCO3 27.9 28.6 H ABG pH 7.28 L 7.30 L ABG Total CO2 34.5 H 35.1 H ABG O2 Saturation 98.5 H 98.6 H ABG Base Excess 3.8 H 4.7 H ABG Hemoglobin 12.2 12.1 ABG Carboxyhemoglobin 1.7 H 1.5 POC ABG HHb (Measured) 1.5 1.4 ABG Methemoglobin 1.1 1.2 [place] Test Pos Pos A-a O2 Difference 35.0 -21.0 Respiratory Index 0.4 -0.2 Hgb O2 Saturation 95.8 95.9 Vent Mode Bipap FiO2 30.0 25.0 Inspiratory BiPAP 18 18 Expiratory BiPAP 9 9 Sodium Potassium Chloride Carbon Dioxide Anion Gap BUN Creatinine Est GFR ( Amer) Est GFR (Non-Af Amer) POC Glucose (mg/dL) Random Glucose Calcium Phosphorus Magnesium Total Bilirubin AST ALT Alkaline Phosphatase Total Protein Albumin Globulin Albumin/Globulin Ratio 04/19/17 04/19/17 05:36 13:24 WBC RBC Hgb Hct MCV MCH MCHC RDW Plt Count MPV Neut % (Auto) Lymph % (Auto) [place] % (Auto) Eos % (Auto) Baso % (Auto) Neut # Lymph # [place] # Eos # Baso # Puncture Site pCO2 pO2 HCO3 ABG pH ABG Total CO2 ABG O2 Saturation ABG Base Excess ABG Hemoglobin ABG Carboxyhemoglobin POC ABG HHb (Measured) ABG Methemoglobin [place] Test A-a O2 Difference Respiratory Index Hgb O2 Saturation Vent Mode FiO2 Inspiratory BiPAP Expiratory BiPAP Sodium 136 Potassium 4.8 Chloride 96 L Carbon Dioxide 29 Anion Gap 16 BUN 29 H Creatinine 0.7 Est GFR ( Amer) > 60 Est GFR (Non-Af Amer) > 60 POC Glucose (mg/dL) 128 H Random Glucose 135 H Calcium 8.9 Phosphorus 2.9 Magnesium 2.4 H Total Bilirubin 0.3 AST 27 ALT 22 Alkaline Phosphatase 68 Total Protein 6.8 Albumin 3.4 L Globulin 3.4 Albumin/Globulin Ratio 1.0 Fingerstick Blood Sugar Results: 146 Review of Systems - Review of Systems Systems not reviewed;Unavailable: Other - Constitutional Constitutional: absent: Fever, Chills, Sweats - Cardiovascular Cardiovascular: absent: Chest Pain, Diaphoresis - Respiratory Respiratory: absent: Cough, Dyspnea, Wheezing - Gastrointestinal Gastrointestinal: absent: Abdominal Pain, Constipation, Diarrhea - Genitourinary Genitourinary: absent: Dysuria - Musculoskeletal Musculoskeletal: Myalgias Additional comments: pain in legs b/l - Neurological Neurological: absent: Confusion Critical Care Progress Note - Nutrition Nutrition: Nutrition Category Date Time Status Heart Healthy Diet [DIET] Diets 04/19/17 Breakfast Active Assessment/Plan - Assessment and Plan (Free Text) Assessment: Patient is a 71 year old female with past medical history of Anemia, Anxiety, Arthritis, Bipolar Disorder, COPD, Depression, HTN, Hypothyroidism, Parkinson's , Sleep Apnea (on Bipap), who was brought to the ED via EMS from her intermediate due to alerted mental status change. She was admitted with lethargy with severe CO2 retention in 90's resp acidosis. POLST form has been filled and patient is DNI. ICU Course: Patient admitted to ICU on 04/18/17 and put on BIPAP FIO2 30% with Ph to 7.26, PCO2 69. Continued home meds, no sedatives, empiric IV cipro for positive UA. Overnight patient on BIPAP FIO2 25% with Ph to 7.30, PCO2 67. Today trial of breathing without BIPAP started and now patient breathing comfortably on 4L nasal cannula. Given clinical improvement and successful trial of breathing on nasal cannula, patient will be transferred to med/surg. Neuro: Hx of Parkinson's - Carbidopa/Levodopa 2 tab po tid Pulmonary: Hx of COPD - retaining CO2, acidodic - duoneb - methylprednisolone 40mg iv q8 - follow ABGs - DNI CV: Hx of HTN - carvedilol 25mg po bid - hydralazine 50mg po daily - isosorbide 30mg po daily Endocrine: Hx of hypothyroidism; Hx of DM - levothyroxine 150 mcg po daily - accuchecks; renal diet GI: - docusate 200mg po hs - famotidine 20mg po bid - lactulose 10g po hs - sennosides 8.6mg po hs Hematology: Hx of anemia - H/H wnl Renal: elevated BUN - BUN/Cr: 23/0.8 MSK: ID: leukocytosis - UA: (+) protein, (+) trace blood, (+) leukocyte esterase, (+) wbc, (+) hyaline casts - ciprofloxacin 200mg iv q12 - clotrimazole 15mg topical - F/U blood cx, urine cx, MRSA screen Prophylaxis: - GI: famotidine 20mg po bid - DVT: heparin 5000u q8, SCDs - Diet: renal diet <Lang Burton - Last Filed: 04/19/17 17:26> CCU Objective - Vital Signs / Intake & Output Intake and Output (Last 8hrs): Intake & Output 04/19/17 04/19/17 04/19/17 06:59 14:59 22:59 Intake Total 440 100 Output Total 1050 400 Balance -610 -300 Weight 326 lb 4.546 oz Intake: Intake, IV Amount 100 100 Right Upper arm 100 Right Wrist 100 Oral 340 0 Output: Urine 1050 400 Urine, Voided 1050 400 Other: # Bowel Movements 0 0 - Medications Active Medications: Active Medications Generic Name Dose Route Start Last Admin Trade Name Freq PRN Reason Stop Dose Admin Albuterol/Ipratropium 3 ml 04/19/17 09:45 04/19/17 14:08 Duoneb 3 Mg/0.5 Mg (3 Ml) Ud INH 3 ml QID PRN Administration Shortness of Breath Carbidopa/Levodopa 2 tab 04/18/17 18:00 04/19/17 13:41 Sinemet PO 2 tab TID TIMOTEO Administration Carvedilol 25 mg 04/18/17 10:00 04/19/17 10:19 Coreg PO 25 mg BID TIMOTEO Administration Clotrimazole 15 gm 04/18/17 10:00 04/19/17 10:19 Lotrimin 1% TOP 1 applic BID TIMOTEO Administration Docusate Sodium 200 mg 04/18/17 22:00 04/18/17 21:40 Colace PO 200 mg HS TIMOTEO Administration Famotidine 20 mg 04/18/17 10:00 04/19/17 10:19 Pepcid PO 20 mg BID TIMOTEO Administration Heparin Sodium (Porcine) 5,000 units 04/18/17 09:30 04/19/17 13:41 Heparin SC 5,000 units Q8 TIMOTEO Administration Hydralazine HCl 50 mg 04/18/17 10:00 04/19/17 10:19 Apresoline PO 50 mg DAILY TIMOTEO Administration Ciprofloxacin 100 mls @ 67 mls/hr 04/18/17 10:00 04/19/17 10:12 Cipro 200mg/100ml D5w IVPB 67 mls/hr Q12H TIMOTEO Administration Isosorbide Mononitrate 30 mg 04/18/17 10:00 04/19/17 10:19 Imdur PO 30 mg DAILY TIMOTEO Administration Lactulose 10 gm 04/18/17 22:00 04/18/17 21:41 Enulose PO 10 gm HS TIMOTEO Administration Levothyroxine Sodium 150 mcg 04/18/17 06:30 04/19/17 05:58 Synthroid PO 150 mcg DAILY@0630 TIMOTEO Administration Methylprednisolone 40 mg 04/18/17 06:00 04/19/17 15:15 Solu-Medrol IVP 40 mg Q8 TIMOTEO Administration Sennosides 8.6 mg 04/18/17 22:00 04/18/17 21:41 Senokot Tab PO 8.6 mg HS TIMOTEO Administration - Patient Studies Lab Studies: Microbiology Studies 04/18/17 08:50 MRSA Culture (Admit) - Final Naris MRSA NOT DETECTED Lab Studies 04/19/17 04/19/17 04/19/17 Range/Units 16:45 13:24 05:36 WBC (4.8-10.8) K/uL RBC (3.80-5.20) Mil/uL Hgb (11.0-16.0) g/dL Hct (34.0-47.0) % MCV (81.0-99.0) fL MCH (27.0-31.0) pg MCHC (33.0-37.0) g/dL RDW (11.5-14.5) % Plt Count (130-400) K/uL MPV (7.2-11.7) fL Neut % (Auto) (50.0-75.0) % Lymph % (Auto) (20.0-40.0) % [place] % (Auto) (0.0-10.0) % Eos % (Auto) (0.0-4.0) % Baso % (Auto) (0.0-2.0) % Neut # (1.8-7.0) K/uL Lymph # (1.0-4.3) K/uL [place] # (0.0-0.8) K/uL Eos # (0.0-0.7) K/uL Baso # (0.0-0.2) K/uL Puncture Site pCO2 (35-45) mm/Hg pO2 (80-100) mm/Hg HCO3 (21-28) mmol/L ABG pH (7.35-7.45) ABG Total CO2 (22-28) mmol/L ABG O2 Saturation (95-98) % ABG Base Excess (-2.0-3.0) mmol/L ABG Hemoglobin (11.7-17.4) g/dL ABG Carboxyhemoglobin (0.5-1.5) % POC ABG HHb (Measured) (0.0-5.0) % ABG Methemoglobin (0.0-3.0) % [place] Test A-a O2 Difference mm/Hg Respiratory Index Hgb O2 Saturation (95.0-98.0) % Vent Mode FiO2 % Inspiratory BiPAP Expiratory BiPAP Sodium 136 (132-148) mmol/L Potassium 4.8 (3.6-5.2) mmol/L Chloride 96 L (98-107) mmol/L Carbon Dioxide 29 (22-30) mmol/L Anion Gap 16 (10-20) BUN 29 H (7-17) mg/dL Creatinine 0.7 (0.7-1.2) MG/DL Est GFR ( Amer) > 60 Est GFR (Non-Af Amer) > 60 POC Glucose (mg/dL) 135 H 128 H (65-110) mg/dL Random Glucose 135 H (65-105) mg/dL Calcium 8.9 (8.6-10.4) mg/dl Phosphorus 2.9 (2.5-4.5) mg/dL Magnesium 2.4 H (1.6-2.3) mg/dL Total Bilirubin 0.3 (0.2-1.3) mg/dL AST 27 (14-36) U/L ALT 22 (9-52) U/L Alkaline Phosphatase 68 (38-126) U/L Total Protein 6.8 (6.3-8.3) g/dL Albumin 3.4 L (3.5-5.0) g/dL Globulin 3.4 (2.2-3.9) gm/dL Albumin/Globulin Ratio 1.0 (1.0-2.1) 04/19/17 04/19/17 Range/Units 05:36 04:56 WBC 9.2 (4.8-10.8) K/uL RBC 4.25 (3.80-5.20) Mil/uL Hgb 11.2 (11.0-16.0) g/dL Hct 36.2 (34.0-47.0) % MCV 85.2 (81.0-99.0) fL MCH 26.4 L (27.0-31.0) pg MCHC 31.0 L (33.0-37.0) g/dL RDW 14.5 (11.5-14.5) % Plt Count 267 (130-400) K/uL MPV 9.1 (7.2-11.7) fL Neut % (Auto) 88.0 H (50.0-75.0) % Lymph % (Auto) 10.1 L (20.0-40.0) % [place] % (Auto) 1.8 (0.0-10.0) % Eos % (Auto) 0.0 (0.0-4.0) % Baso % (Auto) 0.1 (0.0-2.0) % Neut # 8.1 H (1.8-7.0) K/uL Lymph # 0.9 L (1.0-4.3) K/uL [place] # 0.2 (0.0-0.8) K/uL Eos # 0.0 (0.0-0.7) K/uL Baso # 0.0 (0.0-0.2) K/uL Puncture Site R rad pCO2 67 H (35-45) mm/Hg pO2 116 H (80-100) mm/Hg HCO3 28.6 H (21-28) mmol/L ABG pH 7.30 L (7.35-7.45) ABG Total CO2 35.1 H (22-28) mmol/L ABG O2 Saturation 98.6 H (95-98) % ABG Base Excess 4.7 H (-2.0-3.0) mmol/L ABG Hemoglobin 12.1 (11.7-17.4) g/dL ABG Carboxyhemoglobin 1.5 (0.5-1.5) % POC ABG HHb (Measured) 1.4 (0.0-5.0) % ABG Methemoglobin 1.2 (0.0-3.0) % [place] Test Pos A-a O2 Difference -21.0 mm/Hg Respiratory Index -0.2 Hgb O2 Saturation 95.9 (95.0-98.0) % Vent Mode Bipap FiO2 25.0 % Inspiratory BiPAP 18 Expiratory BiPAP 9 Sodium (132-148) mmol/L Potassium (3.6-5.2) mmol/L Chloride (98-107) mmol/L Carbon Dioxide (22-30) mmol/L Anion Gap (10-20) BUN (7-17) mg/dL Creatinine (0.7-1.2) MG/DL Est GFR ( Amer) Est GFR (Non-Af Amer) POC Glucose (mg/dL) (65-110) mg/dL Random Glucose (65-105) mg/dL Calcium (8.6-10.4) mg/dl Phosphorus (2.5-4.5) mg/dL Magnesium (1.6-2.3) mg/dL Total Bilirubin (0.2-1.3) mg/dL AST (14-36) U/L ALT (9-52) U/L Alkaline Phosphatase (38-126) U/L Total Protein (6.3-8.3) g/dL Albumin (3.5-5.0) g/dL Globulin (2.2-3.9) gm/dL Albumin/Globulin Ratio (1.0-2.1) Laboratory Results - last 24 hr 04/19/17 04/19/17 04/19/17 04:56 05:36 05:36 WBC 9.2 RBC 4.25 Hgb 11.2 Hct 36.2 MCV 85.2 MCH 26.4 L MCHC 31.0 L RDW 14.5 Plt Count 267 MPV 9.1 Neut % (Auto) 88.0 H Lymph % (Auto) 10.1 L [place] % (Auto) 1.8 Eos % (Auto) 0.0 Baso % (Auto) 0.1 Neut # 8.1 H Lymph # 0.9 L [place] # 0.2 Eos # 0.0 Baso # 0.0 Puncture Site R rad pCO2 67 H pO2 116 H HCO3 28.6 H ABG pH 7.30 L ABG Total CO2 35.1 H ABG O2 Saturation 98.6 H ABG Base Excess 4.7 H ABG Hemoglobin 12.1 ABG Carboxyhemoglobin 1.5 POC ABG HHb (Measured) 1.4 ABG Methemoglobin 1.2 [place] Test Pos A-a O2 Difference -21.0 Respiratory Index -0.2 Hgb O2 Saturation 95.9 Vent Mode Bipap FiO2 25.0 Inspiratory BiPAP 18 Expiratory BiPAP 9 Sodium 136 Potassium 4.8 Chloride 96 L Carbon Dioxide 29 Anion Gap 16 BUN 29 H Creatinine 0.7 Est GFR ( Amer) > 60 Est GFR (Non-Af Amer) > 60 POC Glucose (mg/dL) Random Glucose 135 H Calcium 8.9 Phosphorus 2.9 Magnesium 2.4 H Total Bilirubin 0.3 AST 27 ALT 22 Alkaline Phosphatase 68 Total Protein 6.8 Albumin 3.4 L Globulin 3.4 Albumin/Globulin Ratio 1.0 04/19/17 04/19/17 13:24 16:45 WBC RBC Hgb Hct MCV MCH MCHC RDW Plt Count MPV Neut % (Auto) Lymph % (Auto) [place] % (Auto) Eos % (Auto) Baso % (Auto) Neut # Lymph # [place] # Eos # Baso # Puncture Site pCO2 pO2 HCO3 ABG pH ABG Total CO2 ABG O2 Saturation ABG Base Excess ABG Hemoglobin ABG Carboxyhemoglobin POC ABG HHb (Measured) ABG Methemoglobin [place] Test A-a O2 Difference Respiratory Index Hgb O2 Saturation Vent Mode FiO2 Inspiratory BiPAP Expiratory BiPAP Sodium Potassium Chloride Carbon Dioxide Anion Gap BUN Creatinine Est GFR ( Amer) Est GFR (Non-Af Amer) POC Glucose (mg/dL) 128 H 135 H Random Glucose Calcium Phosphorus Magnesium Total Bilirubin AST ALT Alkaline Phosphatase Total Protein Albumin Globulin Albumin/Globulin Ratio Critical Care Progress Note - Nutrition Nutrition: Nutrition Category Date Time Status Diabetic [Consistent Carbohydrate] [DIET] Diets 04/19/17 Dinner Active Attending/Attestation - Attestation I have personally seen and examined this patient.: Yes I have fully participated in the care of the patient.: Yes I have reviewed all pertinent clinical information: Yes Notes (Text): 04/19/17 17:24 I have seen and examined the patient. Medical records, lab studies, and imaging were reviewed by me and a management plan was formulated on multidisciplinary rounds with resident Dr. Torres. I agree with their above documented assessment and plan. Patient is clinically improved. Still requires BIPAP at night and prn during the day. Most likely has obesity hypoventilation along with FESTUS. Can downgrade to the floors. Critical Care Time 35 minutes. Multi-disciplinary rounds were performed with house staff, nursing, speech therapy, respiratory therapy, pharmacy and nutrition with integrated input from the primary team/attending and other consulting services. The documented time is cumulative and includes review of patient data/exams/labs/chart review and examination of the patient on rounds and throughout the day; time is exclusive of any procedures or teaching time.
[2017-04-20] MEDS: MethylPREDNISolone 40 mg Vial IVP SCH (06:24)
[2017-04-20] MEDS: Levothyroxine 150 MCG TAB PO SCH (06:55)
--- NOTE | 2017-04-20 09:18 | RAD ---
HISTORY: leukocytosis, respirtaroy distress, COPD COMPARISON: Portable chest 04/19/2017. FINDINGS: LUNGS: The left base is difficult to penetrate due to body habitus. Linear atelectasis suggested in the retrocardiac left base. No definite acute infiltrate identified bilaterally. PLEURA: No significant pleural effusion identified, no pneumothorax apparent. CARDIOVASCULAR: Cardiomegaly appears stable without CHF pattern appreciate this time. OSSEOUS STRUCTURES: No significant abnormalities. VISUALIZED UPPER ABDOMEN: Normal. OTHER FINDINGS: None. IMPRESSION: Linear atelectasis is suggested at the left base with no definitive infiltrate or pleural effusion identified bilaterally or pneumothorax.
[2017-04-20] MEDS ORDERED: Enalaprilat 2.5 MG/2 ML IV ONE (09:30)
[2017-04-20 09:32] LABS: ABG ALLEN TEST POS; ARTERIAL BLOOD HGB O2 SAT 87.3 % (95.0-98.0); CARBOXYHEMOGLOBIN 2.2 % (0.5-1.5); DRAW SITE RRA; HHB 9.1 % (0.0-5.0); METHEMOGLOBIN 1.3 % (0.0-3.0)
[2017-04-20 09:51] LABS: BASO % 0.5 % (0.0-2.0); EOS % 0.2 % (0.0-4.0); HEMATOCRIT 39.7 % (34.0-47.0); LYMPH # 1.2 K/uL (1.0-4.3); LYMPH % 13.8 % (20.0-40.0); MEAN CELL VOLUME 84.4 fL (81.0-99.0); MEAN CORPUSCULAR HEMOGLOBIN 26.8 pg (27.0-31.0); MEAN CORPUSCULAR HGB CONC 31.8 g/dL (33.0-37.0); MEAN PLATELET VOLUME 8.9 fL (7.2-11.7); MONO # 0.5 K/uL (0.0-0.8); MONO % 5.2 % (0.0-10.0); NRBC % 0.1 % (0.0-2.0); RED CELL DISTRIBUTION WIDTH 14.3 % (11.5-14.5); WHITE BLOOD COUNT 8.7 K/uL (4.8-10.8)
[2017-04-20 10:03] LABS: CHLORIDE 99 mmol/L (98-107); SODIUM 137 mmol/L (132-148)
[2017-04-20 10:05] LABS: GFR AFRICAN-AMERICAN > 60
[2017-04-20 10:06] LABS: ALB/GLOB RATIO 1.1 (1.0-2.1); ALKALINE PHOSPHATASE 56 U/L (38-126); ALT/SGPT 23 U/L (9-52); AST/SGOT 32 U/L (14-36); BILIRUBIN,TOTAL 0.8 mg/dL (0.2-1.3); BLOOD UREA NITROGEN 27 mg/dL (7-17); CALCIUM 8.8 mg/dl (8.6-10.4); CARBON DIOXIDE 31 mmol/L (22-30); GLUCOSE,RANDOM 138 mg/dL (65-105); MAGNESIUM 2.1 mg/dL (1.6-2.3); PHOSPHOROUS 2.8 mg/dL (2.5-4.5); POTASSIUM 5.4 mmol/L (3.6-5.2); TOTAL PROTEIN 7.2 g/dL (6.3-8.3)
[2017-04-20] MEDS: Ciprofloxacin 200mg/100ml D5W 100 ML IVPB SCH ×2 (10:58→21:46)
[2017-04-20] MEDS: Clotrimazole 1% Cream 15 GM TUBE TOP SCH ×2 (11:03→18:08)
[2017-04-20] MEDS: (Novolog) Insulin Aspart, Recombinant 100 u/ml 10 ml vial SC SCH ×3 (12:45→21:55)
--- NOTE | 2017-04-20 20:13 | CP.PCM.PN ---
<Alba Soto - Last Filed: 04/20/17 20:07> Subjective - Date & Time of Evaluation Date of Evaluation: 04/20/17 Time of Evaluation: 11:00 - Subjective Subjective: Medicine Note: Patient was seen and examined at bedside in the AM. Per nurse no acute events overnight. Patient states she has chronic leg pain. Patient states she has no other complaints. Objective - Vital Signs/Intake and Output Vital Signs (last 24 hours): Temp Pulse Resp BP Pulse Ox 97.6 F 65 22 157/87 H 98 04/20/17 17:00 04/20/17 17:00 04/20/17 17:00 04/20/17 18:08 04/20/17 17:00 Intake and Output: 04/20/17 04/21/17 18:59 06:59 Intake Total 350 Output Total 650 Balance -300 - Medications Medications: Current Medications Albuterol/Ipratropium (Duoneb 3 Mg/0.5 Mg (3 Ml) Ud) 3 ml INH QID PRN PRN Reason: Shortness of Breath Last Admin: 04/19/17 14:08 Dose: 3 ml Carbidopa/Levodopa (Sinemet) 2 tab PO TID [facility] Last Admin: 04/20/17 18:09 Dose: 2 tab Carvedilol (Coreg) 25 mg PO BID [facility] Last Admin: 04/20/17 18:08 Dose: 25 mg Clotrimazole (Lotrimin 1%) 15 gm TOP BID [facility] Last Admin: 04/20/17 18:08 Dose: 1 applic Docusate Sodium (Colace) 200 mg PO HS [facility] Last Admin: 04/19/17 21:27 Dose: 200 mg Enalapril Maleate (Vasotec) 5 mg PO DAILY [facility] Famotidine (Pepcid) 20 mg PO BID [facility] Last Admin: 04/20/17 18:09 Dose: 20 mg Heparin Sodium (Porcine) (Heparin) 5,000 units SC Q8 [facility] Last Admin: 04/20/17 14:56 Dose: 5,000 units Hydralazine HCl (Apresoline) 50 mg PO DAILY [facility] Last Admin: 04/20/17 10:59 Dose: 50 mg Ciprofloxacin (Cipro 200mg/100ml D5w) 100 mls @ 67 mls/hr IVPB Q12H [facility] Last Admin: 04/20/17 10:58 Dose: 67 mls/hr Insulin Aspart (Novolog) 0 unit SC ACHS [facility] PRN Reason: Protocol Last Admin: 04/20/17 16:48 Dose: Not Given Isosorbide Mononitrate (Imdur) 30 mg PO DAILY [facility] Last Admin: 04/20/17 10:59 Dose: 30 mg Lactulose (Enulose) 10 gm PO HS [facility] Last Admin: 04/19/17 21:27 Dose: 10 gm Levothyroxine Sodium (Synthroid) 150 mcg PO DAILY@0630 [facility] Last Admin: 04/20/17 06:55 Dose: 150 mcg Methylprednisolone (Solu-Medrol) 40 mg IVP DAILY [facility] Sennosides (Senokot Tab) 8.6 mg PO [facility] Last Admin: 04/19/17 22:55 Dose: 8.6 mg - Labs Labs: 04/20/17 09:46 04/20/17 09:46 - Constitutional Appears: No Acute Distress - Head Exam Head Exam: ATRAUMATIC, NORMAL INSPECTION, NORMOCEPHALIC - Eye Exam Eye Exam: EOMI, Normal appearance, PERRL Pupil Exam: NORMAL ACCOMODATION - ENT Exam ENT Exam: Mucous Membranes Moist - Respiratory Exam Respiratory Exam: Clear to Ausculation Bilateral, NORMAL BREATHING PATTERN - Cardiovascular Exam Cardiovascular Exam: REGULAR RHYTHM, RRR, +S1, +S2 - GI/Abdominal Exam GI & Abdominal Exam: Soft, Normal Bowel Sounds. absent: Tenderness - Extremities Exam Extremities Exam: Normal Inspection, Tenderness (bilateral leg tenderness) - Neurological Exam Neurological Exam: Alert, Awake, Oriented x3 - Psychiatric Exam Psychiatric exam: Normal Affect, Normal Mood - Skin Skin Exam: Normal Color, Warm Assessment and Plan - Assessment and Plan (Free Text) Plan: History of COPD - retaining CO2 - duoneb - methylprednisolone 40mg iv q8 - BIPap 25% History of Parkinson's - Carbidopa/Levodopa 2 tab po tid History of HTN - carvedilol 25mg po bid - hydralazine 50mg po daily - isosorbide 30mg po daily - Analapril 5mg daily History of Hypothyroidism - levothyroxine 150 mcg po daily History of Anemia Monitor Leukocytosis - UA: (+) protein, (+) trace blood, (+) leukocyte esterase, (+) wbc, (+) hyaline casts - ciprofloxacin 200mg iv q12 - clotrimazole 15mg topical - F/U blood cx - no growth - preliminary - urine cx - no growth - MRSA screen- no detected Prophylaxis: - GI: famotidine 20mg po bid - DVT: heparin 5000u q8, SCDs Case Discussed with Dr. Guy Soto PGY-1 <Hayden Tovar Jr. - Last Filed: 04/22/17 14:09> Objective - Vital Signs/Intake and Output Vital Signs (last 24 hours): Temp Pulse Resp BP Pulse Ox 97.4 F L 74 20 130/80 100 04/22/17 07:25 04/22/17 07:49 04/22/17 07:25 04/22/17 10:06 04/22/17 07:25 Intake and Output: 04/22/17 04/22/17 06:59 18:59 Intake Total 900 Output Total 500 Balance 400 - Labs Labs: 04/22/17 08:34 04/22/17 11:01 Attending/Attestation - Attestation I have personally seen and examined this patient.: Yes I have fully participated in the care of the patient.: Yes I have reviewed all pertinent clinical information, including history, physical exam and plan: Yes Notes (Text): 04/22/17 14:09 Agree with resident note and plan of care
[2017-04-21] MEDS: Levothyroxine 150 MCG TAB PO SCH (06:00)
[2017-04-21] MEDS: (Novolog) Insulin Aspart, Recombinant 100 u/ml 10 ml vial SC SCH ×4 (07:48→21:11)
[2017-04-21] MEDS: Albuterol-Ipratrop 3 mg / 0.5 (3 ml) UD INH PRN ×2 (07:50→19:23)
--- NOTE | 2017-04-21 07:55 | RAD ---
HISTORY: leukocytosis, respirtaroy distress, COPD COMPARISON: Portable chest 04/20/2017. FINDINGS: LUNGS: Prior linear atelectasis appears to have resolved with left base. No acute infiltrate is identified bilaterally. PLEURA: No significant pleural effusion identified, no pneumothorax apparent. CARDIOVASCULAR: Cardiomegaly appears unchanged. No pulmonary vascular derangement identified. OSSEOUS STRUCTURES: No significant abnormalities. VISUALIZED UPPER ABDOMEN: Normal. OTHER FINDINGS: None. IMPRESSION: No definite acute pulmonary disease is identified. Linear atelectasis left base appears to have cleared. Stable cardiomegaly.
[2017-04-21] MEDS: MethylPREDNISolone 40 mg Vial IVP SCH (09:10)
[2017-04-21] MEDS: Clotrimazole 1% Cream 15 GM TUBE TOP SCH ×2 (09:11→17:17)
[2017-04-21] MEDS: Ciprofloxacin 200mg/100ml D5W 100 ML IVPB SCH (10:08)
--- NOTE | 2017-04-21 11:07 | CP.PCM.PN ---
<Alba Soto - Last Filed: 04/21/17 16:12> Subjective - Date & Time of Evaluation Date of Evaluation: 04/21/17 Time of Evaluation: 09:00 - Subjective Subjective: Medicine Note: Patient was seen and examined at bedside in the AM. Per nurse no acute events overnight. Patient states she has chronic leg pain. Patient states she has no other complaints. Objective - Vital Signs/Intake and Output Vital Signs (last 24 hours): Temp Pulse Resp BP Pulse Ox 98.3 F 67 23 168/90 H 98 04/21/17 08:00 04/21/17 08:00 04/21/17 08:00 04/21/17 09:09 04/21/17 08:00 Intake and Output: 04/21/17 04/21/17 06:59 18:59 Intake Total 715 Output Total 1400 Balance -685 - Medications Medications: Current Medications Albuterol/Ipratropium (Duoneb 3 Mg/0.5 Mg (3 Ml) Ud) 3 ml INH QID PRN PRN Reason: Shortness of Breath Last Admin: 04/21/17 07:50 Dose: 3 ml Carbidopa/Levodopa (Sinemet) 2 tab PO TID [facility] Last Admin: 04/21/17 09:06 Dose: 2 tab Carvedilol (Coreg) 25 mg PO BID [facility] Last Admin: 04/21/17 09:07 Dose: 25 mg Clotrimazole (Lotrimin 1%) 15 gm TOP BID [facility] Last Admin: 04/21/17 09:11 Dose: 1 applic Docusate Sodium (Colace) 200 mg PO HS [facility] Last Admin: 04/20/17 21:54 Dose: 200 mg Enalapril Maleate (Vasotec) 5 mg PO DAILY [facility] Last Admin: 04/21/17 09:09 Dose: 5 mg Famotidine (Pepcid) 20 mg PO BID [facility] Last Admin: 04/21/17 09:07 Dose: 20 mg Heparin Sodium (Porcine) (Heparin) 5,000 units SC Q8 [facility] Last Admin: 04/21/17 06:00 Dose: 5,000 units Hydralazine HCl (Apresoline) 50 mg PO DAILY [facility] Last Admin: 04/21/17 09:06 Dose: 50 mg Ciprofloxacin (Cipro 200mg/100ml D5w) 100 mls @ 67 mls/hr IVPB Q12H [facility] Last Admin: 04/21/17 10:08 Dose: 67 mls/hr Insulin Aspart (Novolog) 0 unit SC ACHS [facility] PRN Reason: Protocol Last Admin: 04/21/17 07:48 Dose: Not Given Isosorbide Mononitrate (Imdur) 30 mg PO DAILY [facility] Last Admin: 04/21/17 09:07 Dose: 30 mg Lactulose (Enulose) 10 gm PO [facility] Last Admin: 04/20/17 21:54 Dose: 10 gm Levothyroxine Sodium (Synthroid) 150 mcg PO DAILY@0630 [facility] Last Admin: 04/21/17 06:00 Dose: 150 mcg Methylprednisolone (Solu-Medrol) 40 mg IVP DAILY [facility] Last Admin: 04/21/17 09:10 Dose: 40 mg Sennosides (Senokot Tab) 8.6 mg PO [facility] Last Admin: 04/20/17 21:55 Dose: 8.6 mg - Labs Labs: 04/20/17 09:46 04/20/17 09:46 - Constitutional Appears: No Acute Distress - Head Exam Head Exam: ATRAUMATIC, NORMAL INSPECTION, NORMOCEPHALIC - Eye Exam Eye Exam: EOMI, Normal appearance, PERRL Pupil Exam: NORMAL ACCOMODATION - ENT Exam ENT Exam: Mucous Membranes Moist - Respiratory Exam Respiratory Exam: Clear to Ausculation Bilateral, NORMAL BREATHING PATTERN Additional comments: Bipap 25% - Cardiovascular Exam Cardiovascular Exam: REGULAR RHYTHM, RRR, +S1, +S2 - GI/Abdominal Exam GI & Abdominal Exam: Soft, Normal Bowel Sounds. absent: Tenderness - Extremities Exam Extremities Exam: Tenderness (bilateral leg tenderness) - Neurological Exam Neurological Exam: Alert, Awake, Oriented x3 - Psychiatric Exam Psychiatric exam: Normal Affect - Skin Skin Exam: Normal Color, Warm Assessment and Plan - Assessment and Plan (Free Text) Plan: History of COPD - retaining CO2 - duoneb - methylprednisolone 40mg iv q8 - BIPap 25% History of Parkinson's - Carbidopa/Levodopa 2 tab po tid History of HTN - carvedilol 25mg po bid - hydralazine 50mg po daily - isosorbide 30mg po daily - Analapril 5mg daily History of Hypothyroidism - levothyroxine 150 mcg po daily History of Anemia Monitor Leukocytosis - UA: (+) protein, (+) trace blood, (+) leukocyte esterase, (+) wbc, (+) hyaline casts - ciprofloxacin 200mg iv q12 - clotrimazole 15mg topical - F/U blood cx - no growth - preliminary - urine cx - no growth - MRSA screen- no detected Prophylaxis: - GI: famotidine 20mg po bid - DVT: heparin 5000u q8, SCDs Disposition: Spoke with case management transfer to [facility] tomorrow 04/22/[address] Guy Soto PGY-1 <Hayden Tovar Jr. - Last Filed: 04/22/17 14:12> Objective - Vital Signs/Intake and Output Vital Signs (last 24 hours): Temp Pulse Resp BP Pulse Ox 97.4 F L 74 20 130/80 100 04/22/17 07:25 04/22/17 07:49 04/22/17 07:25 04/22/17 10:06 04/22/17 07:25 Intake and Output: 04/22/17 04/22/17 06:59 18:59 Intake Total 900 Output Total 500 Balance 400 - Labs Labs: 04/22/17 08:34 04/22/17 11:01 Attending/Attestation - Attestation I have personally seen and examined this patient.: Yes I have fully participated in the care of the patient.: Yes I have reviewed all pertinent clinical information, including history, physical exam and plan: Yes Notes (Text): 04/22/17 14:12 Agree with resident note and plan of care
[2017-04-21] MEDS ORDERED: Aluminum Hydroxide/Magnesium Hydroxide Susp (30 mL) PO PRN (13:55)
[2017-04-21 14:02] LABS: BASO % 0.4 % (0.0-2.0); HEMATOCRIT 39.8 % (34.0-47.0); LYMPH % 11.7 % (20.0-40.0); MEAN CELL VOLUME 84.9 fL (81.0-99.0); MEAN CORPUSCULAR HEMOGLOBIN 26.7 pg (27.0-31.0); MEAN CORPUSCULAR HGB CONC 31.5 g/dL (33.0-37.0); MEAN PLATELET VOLUME 8.9 fL (7.2-11.7); MONO # 0.2 K/uL (0.0-0.8); MONO % 2.8 % (0.0-10.0); RED CELL DISTRIBUTION WIDTH 14.7 % (11.5-14.5); WHITE BLOOD COUNT 8.9 K/uL (4.8-10.8)
[2017-04-21 14:09] LABS: ALKALINE PHOSPHATASE 60 U/L (38-126); ALT/SGPT 16 U/L (9-52); AST/SGOT 17 U/L (14-36); BILIRUBIN,TOTAL 0.4 mg/dL (0.2-1.3); BLOOD UREA NITROGEN 19 mg/dL (7-17); CALCIUM 8.9 mg/dl (8.6-10.4); CARBON DIOXIDE 32 mmol/L (22-30); CHLORIDE 93 mmol/L (98-107); GFR AFRICAN-AMERICAN > 60; GLUCOSE,RANDOM 204 mg/dL (65-105); MAGNESIUM 1.9 mg/dL (1.6-2.3); PHOSPHOROUS 3.4 mg/dL (2.5-4.5); POTASSIUM 4.3 mmol/L (3.6-5.2); SODIUM 135 mmol/L (132-148); TOTAL PROTEIN 6.8 g/dL (6.3-8.3)
[2017-04-21 16:05] VITALS: RESP 20; O2SAT 100
[2017-04-22] MEDS: Levothyroxine 150 MCG TAB PO SCH (05:45)
[2017-04-22 07:30] VITALS: TEMP 97.4
[2017-04-22] MEDS: Albuterol-Ipratrop 3 mg / 0.5 (3 ml) UD INH PRN ×2 (07:48→13:14)
[2017-04-22 07:51] VITALS: PULSE 74
[2017-04-22] MEDS: (Novolog) Insulin Aspart, Recombinant 100 u/ml 10 ml vial SC SCH ×2 (08:09→11:14)
[2017-04-22 08:43] LABS: BASO % 0.4 % (0.0-2.0); EOS % 0.4 % (0.0-4.0); HEMATOCRIT 41.5 % (34.0-47.0); LYMPH # 3.3 K/uL (1.0-4.3); LYMPH % 34.2 % (20.0-40.0); MEAN CELL VOLUME 85.9 fL (81.0-99.0); MEAN CORPUSCULAR HEMOGLOBIN 26.8 pg (27.0-31.0); MEAN CORPUSCULAR HGB CONC 31.2 g/dL (33.0-37.0); MEAN PLATELET VOLUME 9.7 fL (7.2-11.7); MONO # 1.4 K/uL (0.0-0.8); MONO % 14.5 % (0.0-10.0); NRBC % 0.1 % (0.0-2.0); RED CELL DISTRIBUTION WIDTH 14.7 % (11.5-14.5); WHITE BLOOD COUNT 9.6 K/uL (4.8-10.8)
[2017-04-22 10:08] VITALS: BP 130/80
[2017-04-22] MEDS: MethylPREDNISolone 40 mg Vial IVP SCH (10:08)
--- NOTE | 2017-04-22 10:36 | CP.PCM.DIS ---
Provider - Provider Date of Admission: 04/17/17 22:56 Attending physician: Hayden Tovar Jr, MD Time Spent in preparation of Discharge (in minutes): 45 Diagnosis - Discharge Diagnosis (1) COPD (chronic obstructive pulmonary disease) Status: Chronic Comment: Please see summary for details. (2) Urinary tract infection Status: Acute Comment: Please see summary for details. (3) HTN (hypertension) Status: Chronic Comment: Please see summary for details. (4) Hypothyroidism Status: Chronic Comment: Please see summary for details. (5) Parkinsons Status: Chronic Comment: Please see summary for details. Hospital Course - Lab Results Lab Results: Micro Results 04/20/17 15:18 [facility] MRSA Culture - Final MRSA NOT DETECTED 04/18/17 08:50 [facility] MRSA Culture (Admit) - Final MRSA NOT DETECTED Most Recent Lab Values WBC 9.6 K/uL (4.8-10.8) 04/22/17 08:34 RBC 4.83 Mil/uL (3.80-5.20) 04/22/17 08:34 Hgb 12.9 g/dL (11.0-16.0) 04/22/17 08:34 Hct 41.5 % (34.0-47.0) 04/22/17 08:34 MCV 85.9 fL (81.0-99.0) 04/22/17 08:34 MCH 26.8 pg (27.0-31.0) L 04/22/17 08:34 MCHC 31.2 g/dL (33.0-37.0) L 04/22/17 08:34 RDW 14.7 % (11.5-14.5) H 04/22/17 08:34 Plt Count 220 K/uL (130-400) 04/22/17 08:34 MPV 9.7 fL (7.2-11.7) 04/22/17 08:34 Neut % (Auto) 50.5 % (50.0-75.0) 04/22/17 08:34 Lymph % (Auto) 34.2 % (20.0-40.0) 04/22/17 08:34 [place] % (Auto) 14.5 % (0.0-10.0) H 04/22/17 08:34 Eos % (Auto) 0.4 % (0.0-4.0) 04/22/17 08:34 Baso % (Auto) 0.4 % (0.0-2.0) 04/22/17 08:34 Neut # 4.9 K/uL (1.8-7.0) 04/22/17 08:34 Lymph # 3.3 K/uL (1.0-4.3) 04/22/17 08:34 [place] # 1.4 K/uL (0.0-0.8) H 04/22/17 08:34 Eos # 0.0 K/uL (0.0-0.7) 04/22/17 08:34 Baso # 0.0 K/uL (0.0-0.2) 04/22/17 08:34 Neutrophils % (Manual) 90 % (50-75) H 04/18/17 07:59 Lymphocytes % (Manual) 9 % (20-40) L 04/18/17 07:59 Monocytes % (Manual) 1 % (0-10) 04/18/17 07:59 Platelet Estimate Normal (NORMAL) 04/18/17 07:59 Basophilic Stippling Slight 04/18/17 07:59 Puncture Site Rra 04/20/17 05:27 pCO2 55 mm/Hg (35-45) H 04/20/17 05:27 pO2 51 mm/Hg (80-100) L 04/20/17 05:27 HCO3 31.3 mmol/L (21-28) H 04/20/17 05:27 ABG pH 7.41 (7.35-7.45) 04/20/17 05:27 ABG Total CO2 36.6 mmol/L (22-28) H 04/20/17 05:27 ABG O2 Saturation 90.6 % (95-98) L 04/20/17 05:27 ABG Base Excess 8.5 mmol/L (-2.0-3.0) H 04/20/17 05:27 ABG Hemoglobin 13.0 g/dL (11.7-17.4) 04/20/17 05:27 ABG Carboxyhemoglobin 2.2 % (0.5-1.5) H 04/20/17 05:27 POC ABG HHb (Measured) 9.1 % (0.0-5.0) H 04/20/17 05:27 ABG Methemoglobin 1.3 % (0.0-3.0) 04/20/17 05:27 [place] Test Pos 04/20/17 05:27 ABG Potassium 4.8 mmol/L (3.6-5.2) 04/18/17 09:09 A-a O2 Difference 80.0 mm/Hg 04/20/17 05:27 Respiratory Index 1.6 04/20/17 05:27 Hgb O2 Saturation 87.3 % (95.0-98.0) L 04/20/17 05:27 Sodium 138.0 mmol/l (132-148) 04/18/17 09:09 Chloride 102.0 mmol/L (98-107) 04/18/17 09:09 Glucose 157 mg/dl (65-105) H 04/18/17 09:09 Lactate 0.5 mmol/L (0.7-2.1) L 04/18/17 09:09 Liter Flow 2.0 04/20/17 05:27 Vent Mode Bipap 04/19/17 04:56 FiO2 28.0 % 04/20/17 05:27 Inspiratory BiPAP 18 04/19/17 04:56 Expiratory BiPAP 9 04/19/17 04:56 Crit Value Called To Dr little 04/18/17 09:09 Crit Value Called By Neris delvalle electric shaver mechanic 04/18/17 09:09 Crit Value Read Back Y 04/18/17 09:09 Blood Gas Notified Time 915 04/18/17 09:09 Sodium 135 mmol/L (132-148) 04/21/17 13:52 Potassium 4.3 mmol/L (3.6-5.2) 04/21/17 13:52 Chloride 93 mmol/L (98-107) L 04/21/17 13:52 Carbon Dioxide 32 mmol/L (22-30) H 04/21/17 13:52 Anion Gap 14 (10-20) 04/21/17 13:52 BUN 19 mg/dL (7-17) H 04/21/17 13:52 Creatinine 0.7 MG/DL (0.7-1.2) 04/21/17 13:52 Est GFR ( Amer) > 60 04/21/17 13:52 Est GFR (Non-Af Amer) > 60 04/21/17 13:52 POC Glucose (mg/dL) 144 mg/dL (65-110) H 04/22/17 07:28 Random Glucose 204 mg/dL (65-105) H 04/21/17 13:52 Calcium 8.9 mg/dl (8.6-10.4) 04/21/17 13:52 Phosphorus 3.4 mg/dL (2.5-4.5) 04/21/17 13:52 Magnesium 1.9 mg/dL (1.6-2.3) 04/21/17 13:52 Total Bilirubin 0.4 mg/dL (0.2-1.3) 04/21/17 13:52 AST 17 U/L (14-36) 04/21/17 13:52 ALT 16 U/L (9-52) 04/21/17 13:52 Alkaline Phosphatase 60 U/L (38-126) 04/21/17 13:52 Troponin I < 0.0120 ng/mL (0.00-0.120) 04/17/17 22:10 Total Protein 6.8 g/dL (6.3-8.3) 04/21/17 13:52 Albumin 3.4 g/dL (3.5-5.0) L 04/21/17 13:52 Globulin 3.4 gm/dL (2.2-3.9) 04/21/17 13:52 Albumin/Globulin Ratio 1.0 (1.0-2.1) 04/21/17 13:52 Arterial Blood Potassium 4.8 mmol/L (3.6-5.2) 04/18/17 09:09 Urine Color Jill (YELLOW) 04/17/17 19:26 Urine Clarity Hazy (Clear) 04/17/17 19:26 Urine pH 5.0 (5.0-8.0) 04/17/17 19:26 Ur Specific [place] 1.018 (1.003-1.030) 04/17/17 19:26 Urine Protein 2+ mg/dL (NEGATIVE) H 04/17/17 19:26 Urine Glucose (UA) Normal mg/dL (Normal) 04/17/17 19:26 Urine Ketones Trace mg/dL (NEGATIVE) 04/17/17 19:26 Urine Blood Trace (NEGATIVE) H 04/17/17 19:26 Urine Nitrate Negative (NEGATIVE) 04/17/17 19:26 Urine Bilirubin Negative (NEGATIVE) 04/17/17 19:26 Urine Urobilinogen Normal mg/dL (0.2-1.0) 04/17/17 19:26 Ur Leukocyte Esterase 1+ [place]/uL (Negative) H 04/17/17 19:26 Urine WBC (Auto) 6 /hpf (0-5) H 04/17/17 19:26 Urine RBC (Auto) 3 /hpf (0-3) 04/17/17 19:26 Ur Squamous Epith Cells 1 /hpf (0-5) 04/17/17 19:26 Urine Bacteria Rare (<OCC) 04/17/17 19:26 Hyaline Casts 6-10 /lpf (0-2) H 04/17/17 19:26 - Hospital Course Hospital Course: "CC: AMS and respiratory distress HPI: Patient is a 71 year old female with past medical history of Anemia, Anxiety, Arthritis, Bipolar Disorder, COPD, Depression, HTN, Hypothyroidism, Parkinson's, Sleep Apnea (on Bipap), who was [facility] the ED [facility] due to alerted mental status change. As per EMS, patient was [facility]. During patient encounter, patient was in respiratory distress and was placed on Bipap. Patient was very lethargic therefore, ROS and detailed HPI cannot be obtained. However, patient was responsive to pain. As per conservation with Dr. Tovar and on-call sand mixer operator, Dr. Cobb, regarding patient's condition and stability; clinical decision was made to admit patient to the ICU for close monitoring." Hospital course: Head CT: 1. opacified right maxillary sinus, 2. 6 para falcine lipomas. largest measures 3mm. 3. mild global atrophy of the left cerebral hemisphere as compared to the right, 4. partial opacification of the right mastoid air cells. Parkinson's: Patient treated with Carbidopa/Levodopa 2 tab po tid and BiPAP COPD: Patient treated with duoneb and methylprednisolone 40mg iv q8. ABGs were followed HTN: Patient treated with carvedilol 25mg po bid, hydralazine 50mg po daily, isosorbide 30mg po daily, analapril 5mg daily Hypothyroid: Patient treated with levothyroxine 150 mcg po daily GI: Patient treated with docusate 200mg po hs, famotidine 20mg po bid, lactulose 10g po hs, sennosides 8.6mg po hs UTI: patient treated with ciprofloxacin 200mg iv q12, clotrimazole 15mg topical Prophylactic treatment: GI: famotidine 20mg po bid, DVT: heparin 5000u q8, SCDs Patient moved out of ICU on 04/20. Blood cultures, urine culture and MRSA screen were negative. Patient is improving and feeling better. Patient stable for discharge to [facility] as per Dr. Tovar. Discharge Exam - Head Exam Head Exam: ATRAUMATIC, NORMAL INSPECTION, NORMOCEPHALIC - Eye Exam Eye Exam: EOMI, Normal appearance, PERRL - ENT Exam ENT Exam: Mucous Membranes Moist - Neck Exam Neck exam: Full Rom - Respiratory Exam Respiratory Exam: Clear to PA & Lateral, NORMAL BREATHING PATTERN. absent: Rales, Rhonchi, Wheezes, Respiratory Distress, Stridor - Cardiovascular Exam Cardiovascular Exam: REGULAR RHYTHM, RRR - GI/Abdominal Exam GI & Abdominal Exam: Normal Bowel Sounds, Soft. absent: Distended, Firm, Tenderness - Extremities Exam Extremities exam: tenderness - Neurological Exam Neurological exam: Alert, Oriented x3 - Psychiatric Exam Psychiatric exam: Normal Affect, Normal Mood - Skin Skin Exam: Intact, Normal Color, Warm Discharge Plan - Discharge Medications Prescriptions: Enalapril Maleate [Vasotec] 5 mg PO DAILY #30 tab - Follow Up Plan Condition: GUARDED Disposition: REHAB FACILITY/REHAB UNIT Instructions: Enalapril (By mouth), COPD (Chronic Obstructive Pulmonary Disease ) (DC), Chronic Respiratory Failure (DC)
[2017-04-22 11:21] LABS: CHLORIDE 96 mmol/L (98-107)
[2017-04-22 11:22] LABS: POTASSIUM 4.1 mmol/L (3.6-5.2); SODIUM 136 mmol/L (132-148)
[2017-04-22 11:23] LABS: BILIRUBIN,TOTAL 0.5 mg/dL (0.2-1.3); GFR AFRICAN-AMERICAN > 60
[2017-04-22 11:24] LABS: ALB/GLOB RATIO 1.1 (1.0-2.1); ALKALINE PHOSPHATASE 54 U/L (38-126); ALT/SGPT 15 U/L (9-52); AST/SGOT 17 U/L (14-36); BLOOD UREA NITROGEN 19 mg/dL (7-17); CARBON DIOXIDE 32 mmol/L (22-30); GLUCOSE,RANDOM 116 mg/dL (65-105); PHOSPHOROUS 2.5 mg/dL (2.5-4.5); TOTAL PROTEIN 6.6 g/dL (6.3-8.3)
[2017-04-22 11:25] LABS: CALCIUM 8.5 mg/dl (8.6-10.4); MAGNESIUM 1.8 mg/dL (1.6-2.3)
== END 2017-04-22 13:36 | DRG 189 ==
LOC: C.ER 18:34 → C.9I 22:56 → C.3T 04-20 17:51
PROVIDERS: ADMIT Internal Medicine; ATTEND Internal Medicine
PROC: 5A09457 Assistance with Respiratory Ventilation, 24-96 Consecutive Hours, Continuous Positive Airway Pressure (ICD-10-PCS; principal; 2017-04-17)
DX: J96.90 Respiratory failure, unspecified, unspecified whether with hypoxia or hypercapnia (principal); E87.2 Acidosis; G20 Parkinson's disease; E11.40 Type 2 diabetes mellitus with diabetic neuropathy, unspecified; E66.2 Morbid (severe) obesity with alveolar hypoventilation; N39.0 Urinary tract infection, site not specified; Z68.43 Body mass index [BMI] 50.0-59.9, adult; I10 Essential (primary) hypertension; E03.9 Hypothyroidism, unspecified; J44.9 Chronic obstructive pulmonary disease, unspecified; F31.9 Bipolar disorder, unspecified; G89.29 Other chronic pain; F41.9 Anxiety disorder, unspecified; D64.9 Anemia, unspecified; Z96.651 Presence of right artificial knee joint; Z83.3 Family history of diabetes mellitus; K21.9 Gastro-esophageal reflux disease without esophagitis; D17.9 Benign lipomatous neoplasm, unspecified; Z79.4 Long term (current) use of insulin; Z87.891 Personal history of nicotine dependence

== ENCOUNTER 2017-07-14 00:44 | Inpatient (IN) | payer MEDICARE, MEDICAID ==
[2017-07-14 00:46] VITALS: BMI 60.2
[2017-07-14] MEDS ORDERED: MethylPREDNISolone 40 mg Vial IVP STA (01:11)
[2017-07-14] MEDS ORDERED: Albuterol-Ipratrop 3 mg / 0.5 (3 ml) UD INH STA ×3 (01:11)
--- NOTE | 2017-07-14 01:20 | C.PDOC ---
History Of Present Illness 72 year old female with a Hx of COPD [facility] and [facility]MS. Patient was recently admitted in the past for similar symptoms and was found to be hypoxic and hypercarbic. Due to patient's lethargy no further Hx can be obtained. Time Seen by Provider: 07/14/17 00:49 Chief Complaint (Nursing): Altered Mental Status History Per: EMS History/Exam Limitations: None Onset/Duration Of Symptoms: Hrs Onset Of Symptoms: Cannot Confirm Onset Current Symptoms Are (Timing): Still Present Exacerbating Factor(s): Unknown Use Of Anticoag/Antiplatelets: Unknown Speech Is: Other (Cannot assess) Recent travel outside of the [place]: No Associated Symptoms: Other (Lethargy) Past Medical History Reviewed: Historical Data, Nursing Documentation, Vital Signs Vital Signs: Last Vital Signs Temp 98.3 F 07/15/17 08:00 Pulse 65 07/15/17 11:00 Resp 15 07/15/17 11:00 BP 153/72 H 07/15/17 10:46 Pulse Ox 100 07/15/17 11:00 - Medical History PMH: Anemia, Anxiety, Arthritis, Bipolar Disorder, COPD, Depression, HTN, Hypothyroidism, Parkinson's Disease, Sleep Apnea (on Bipap) - [facility] Procedures ASSISTANCE WITH RESPIRATORY VENTILATION, 24-96 HRS, CPAP (06/22/17) CONTINUOUS INVASIVE MECHANICAL VENTILATION <96 CONSEC HRS (12/29/12) CONTINUOUS INVASIVE MECHANICAL VENTILATION =/>96 CONSEC HRS (02/28/13) DX ULTRASOUND-HEART (08/29/13) EXCISION OF RIGHT BREAST, OPEN APPROACH, DIAGNOSTIC (09/18/15) INCIS W REM OF FORIEGN BODY OR DEV FROM SKIN & SUBCUT TISSUE (08/29/13) INSERT ENDOTRACHEAL TUBE (02/28/13) INSERT INDWELLING CATH (12/26/12) INSERTION OF INFUSION DEV INTO SUP VENA CAVA, PERC APPROACH (10/21/16) NON-INVASIVE MECHANICAL VENTILATION (08/29/13) Family History: States: Unknown Family Hx - Social History Hx Tobacco Use: (Unknown) Hx Alcohol Use: No Hx Substance Use: No - Immunization History Hx Tetanus Toxoid Vaccination: No Hx Influenza Vaccination: No Hx Pneumococcal Vaccination: No (05/28/2009) Review Of Systems Review Of Systems: ROS cannot be obtained secondary to pt's inabilty to answer questions. Physical Exam - Physical Exam Appears: Other (Morbidly Obese) Skin: Warm, Dry Head: Atraumatic, Normacephalic Eye(s): bilateral: Normal Inspection, PERRL Oral Mucosa: Moist Neck: Normal, Supple Chest: Symmetrical, No Tenderness Cardiovascular: Rhythm Regular Respiratory: Other (Diminished breath sounds symmetrically and bilaterally) Gastrointestinal/Abdominal: Soft, No Tenderness ED Course And Treatment - Laboratory Results Result Diagrams: 07/15/17 06:20 07/15/17 06:20 ECG: Interpreted By Me, Viewed By Me ECG Rhythm: Sinus Rhythm Interpretation Of ECG: No ST/T wave changes. Rate From EC O2 Sat by Pulse Oximetry: 95 (Room air) Pulse Ox Interpretation: Normal - CT Scan/US CT Head Other Rad Studies (CT/US): Read By Radiologist, Radiology Report Reviewed CT/US Interpretation: EXAM: CT Head Without Intravenous Contrast. CLINICAL HISTORY: 72 years old, female; Signs and symptoms; Altered mental status/ memory loss; Confusion or. disorientation; Additional info: AMS. TECHNIQUE: Axial computed tomography images of the head/brain without intravenous contrast. All CT scans at. this facility use one or more dose reduction techniques, viz.: automated exposure control; ma/kV. adjustment per patient size (including targeted exams where dose is matched to indication; i.e. head); . or iterative reconstruction technique. COMPARISON: CT - HEAD W/O CONTRAST 2017-06-22 01:29. FINDINGS: Limitations: Motion artifact - mild. Brain: Mild atrophy. No definite intracranial hemorrhage. No mass. No definite edema. Ventricles: No hydrocephalus. Bones/joints: No acute fracture. Soft tissues: Unremarkable. Sinuses: Complete opacification of RIGHT maxillary sinus. Scattered minimal mucosal thickening of. remaining sinuses. Mastoid air cells : Partial opacification of RIGHT mastoid. Orbits: Unremarkable as visualized. Tubes, lines and devices: Endotracheal tube. IMPRESSION: 1. No definite acute intracranial abnormality. Acute infarction may be CT occult within first 24 hours. If a focal deficit persists, consider followup CT or MRI for further evaluation. 2. Sinus disease. 3. Mastoid disease. 4. Incidental/non-acute findings are described above. Medical Decision Making Medical Decision Making: Blood work, EKG, and CXR ordered. Duoneb and prednisone administered. [id number]: call made out to Dr. Tovar, aceepts to service. anestehisa intubated pt as pt with large neck, large tongue, difficult airway. accepted to [facility] Disposition - Disposition Disposition: HOSPITALIZED Disposition Time: 03:00 Condition: CRITICAL - Clinical Impression Clinical Impression: COPD (chronic obstructive pulmonary disease), Respiratory failure, Acute respiratory acidosis, Acute respiratory failure with hypoxia and hypercapnia - Scribe Statement The provider has reviewed the documentation as recorded by the Scribe Shilo Estrada All medical record entries made by the Guerreroibe were at my direction and personally dictated by me. I have reviewed the chart and agree that the record accurately reflects my personal performance of the history, physical exam, medical decision making, and the department course for this patient. I have also personally directed, reviewed, and agree with the discharge instructions and disposition.
[2017-07-14] MEDS ORDERED: Albuterol-Ipratrop 3 mg / 0.5 (3 ml) UD ONE (01:22)
[2017-07-14 01:50] LABS: BASO # 0.1 K/uL (0.0-0.2); BASO % 0.6 % (0.0-2.0); EOS # 0.1 K/uL (0.0-0.7); EOS % 0.4 % (0.0-4.0); LYMPH # 2.1 K/uL (1.0-4.3); LYMPH % 17.2 % (20.0-40.0); MEAN CELL VOLUME 88.9 fL (81.0-99.0); MEAN CORPUSCULAR HEMOGLOBIN 27.6 pg (27.0-31.0); MEAN CORPUSCULAR HGB CONC 31.1 g/dL (33.0-37.0); MEAN PLATELET VOLUME 8.3 fL (7.2-11.7); RED CELL DISTRIBUTION WIDTH 15.2 % (11.5-14.5); WHITE BLOOD COUNT 12.3 K/uL (4.8-10.8)
[2017-07-14 02:10] LABS: ALKALINE PHOSPHATASE 60 U/L (38-126); ALT/SGPT 20 U/L (9-52); AST/SGOT 11 U/L (14-36); BILIRUBIN,TOTAL 0.3 mg/dL (0.2-1.3); BLOOD UREA NITROGEN 20 mg/dL (7-17); CALCIUM 8.6 mg/dl (8.6-10.4); CHLORIDE 91 mmol/L (98-107); GFR AFRICAN-AMERICAN > 60; GLUCOSE,RANDOM 132 mg/dL (65-105); POTASSIUM 4.3 mmol/L (3.6-5.2); SODIUM 137 mmol/L (132-148); TOTAL PROTEIN 7.5 g/dL (6.3-8.3)
[2017-07-14 02:20] LABS: CARBON DIOXIDE 39 mmol/L (22-30)
[2017-07-14] MEDS ORDERED: Midazolam 2 MG/2 ML VIAL ONE (02:44)
[2017-07-14] MEDS ORDERED: Propofol 10 mg/ml Inj (20 ML) ONE (02:46)
--- NOTE | 2017-07-14 03:01 | CP.PCM.CON ---
History of Present Illness - History of Present Illness History of Present Illness: 72 y/o patient not responding to any tactile or noxious stimuli. Patient placed on bi-pap but no air movement. Patient immediately intubated using glydoscope. No other history could be obtained. As patient was in Co2 narcosis. Review of Systems - Review of Systems Systems not reviewed;Unavailable: Intubated Review of Systems: Limited ROS 2nd Co2 narcosis Past Patient History - Infectious Disease Hx of Infectious Diseases: VRE - Tetanus Immunizations Tetanus Immunization: Unknown - Past Medical History & Family History Past Medical History?: Yes - Past Social History Smoking Status: Unable to obtain as patient has Co2 narcosis - CARDIAC Hx Hypertension: Yes - PULMONARY Hx Chronic Obstructive Pulmonary Disease (COPD): Yes Hx Sleep Apnea: Yes (on Bipap) - NEUROLOGICAL Hx Parkinson's Disease: Yes - HEENT Hx HEENT Problems: No - RENAL Hx Chronic Kidney Disease: No - ENDOCRINE/METABOLIC Hx Hypothyroidism: Yes - HEMATOLOGICAL/ONCOLOGICAL Hx Anemia: Yes - INTEGUMENTARY Hx Dermatological Problems: No - MUSCULOSKELETAL/RHEUMATOLOGICAL Hx Arthritis: Yes - GASTROINTESTINAL Hx Constipation: Yes Hx Gastroesophageal Reflux: Yes - GENITOURINARY/GYNECOLOGICAL Hx Incontinence: Yes Hx Urinary Tract Infection: Yes - PSYCHIATRIC Hx Anxiety: Yes Hx Bipolar Disorder: Yes Hx Depression: Yes Hx Substance Use: No - SURGICAL HISTORY Hx Surgeries: Yes Other/Comment: right knee replacement 2014; right knee prosthesis removal s/p infection 2014 - ANESTHESIA Hx Anesthesia: Yes Hx Anesthesia Reactions: No Hx Malignant Hyperthermia: No Meds Allergies/Adverse Reactions: Allergies Allergy/AdvReac Type Severity Reaction Status Date / Time Cephalosporins Allergy Intermediate RASH Verified 04/17/17 18:44 Penicillins Allergy Intermediate RASH Verified 04/17/17 18:44 clonazepam [From Klonopin] Allergy Verified 04/17/17 18:44 mustard Allergy Intermediate RASH Uncoded 04/17/17 18:44 Physical Exam - Constitutional Appears: In Acute Distress, Confused Additional comments: obese - Head Exam Additional comments: pupils pinpoint - Respiratory Exam Respiratory Exam: Decreased Breath Sounds - Cardiovascular Exam Cardiovascular Exam: +S1, +S2 - GI/Abdominal Exam Additional comments: obese, soft, limited - Extremities Exam Additional comments: edema lower leg with scar at knee c/.w previous knee surgery - Neurological Exam Additional comments: not responsive to stimuli, Co2 narcosis Results - Vital Signs Recent Vital Signs: Last Vital Signs Temp Pulse 73 11/26/17 01:11 Resp 18 07/14/17 01:07 BP 116/95 H 07/14/17 01:07 Pulse Ox 95 07/14/17 02:36 - Labs Result Diagrams: 07/14/17 01:47 07/14/17 01:47 Labs: Laboratory Results - last 24 hr 07/14/17 07/14/17 07/14/17 01:19 01:47 01:47 WBC 12.3 H D RBC 4.16 Hgb 11.5 Hct 37.0 MCV 88.9 D MCH 27.6 MCHC 31.1 L RDW 15.2 H Plt Count 310 MPV 8.3 Neut % (Auto) 73.8 Lymph % (Auto) 17.2 L [place] % (Auto) 8.0 Eos % (Auto) 0.4 Baso % (Auto) 0.6 Neut # 9.0 H Lymph # 2.1 [place] # 1.0 H Eos # 0.1 Baso # 0.1 PT INR APTT Puncture Site R b pCO2 101 H* pO2 90 HCO3 22.0 ABG pH 7.07 L* ABG Total CO2 32.4 H ABG O2 Saturation 97.2 ABG Base Excess -3.6 L Donta Test Na ABG Potassium 2.7 L A-a O2 Difference 497.0 Respiratory Index 5.5 Sodium 146.0 137 Chloride 115.0 H 91 L Glucose 101 Lactate 0.5 L Liter Flow 15.0 FiO2 100.0 Crit Value Called To Dr sol Crit Value Called By Yecenia ayala rt Crit Value Read Back Y Blood Gas Notified Time 126 Potassium 4.3 Carbon Dioxide 39 H Anion Gap 11 BUN 20 H Creatinine 0.8 Est GFR ( Amer) > 60 Est GFR (Non-Af Amer) > 60 Random Glucose 132 H Calcium 8.6 Total Bilirubin 0.3 AST 11 L D ALT 20 Alkaline Phosphatase 60 Troponin I < 0.0120 NT-Pro-B Natriuret Pep 362 Total Protein 7.5 Albumin 3.7 Globulin 3.8 Albumin/Globulin Ratio 1.0 Arterial Blood Potassium 2.7 L 07/14/17 01:47 WBC RBC Hgb Hct MCV MCH MCHC RDW Plt Count MPV Neut % (Auto) Lymph % (Auto) [place] % (Auto) Eos % (Auto) Baso % (Auto) Neut # Lymph # [place] # Eos # Baso # PT 11.3 INR 1.0 APTT 36 H Puncture Site pCO2 pO2 HCO3 ABG pH ABG Total CO2 ABG O2 Saturation ABG Base Excess Donta Test ABG Potassium A-a O2 Difference Respiratory Index Sodium Chloride Glucose Lactate Liter Flow FiO2 Crit Value Called To Crit Value Called By Crit Value Read Back Blood Gas Notified Time Potassium Carbon Dioxide Anion Gap BUN Creatinine Est GFR ( Amer) Est GFR (Non-Af Amer) Random Glucose Calcium Total Bilirubin AST ALT Alkaline Phosphatase Troponin I NT-Pro-B Natriuret Pep Total Protein Albumin Globulin Albumin/Globulin Ratio Arterial Blood Potassium - EKG Data EKG Interpreted by: Myself EKG shows normal: Sinus rhythm Rate: Normal Assessment & Plan - Assessment and Plan (Free Text) Plan: -Hypercapneic respiratory failure: immediately intubated by anesthesia, patient not responsive during intubation. continue ventilation to keep spo2 >92 and pH b /w 7.35-7.45, start bronchodilators -Leukocytosis: sepsis protocol, serial lactic, IVF, yonug culture, Empriical abx, moxi/vanco/aztreonam. -Utox, pending, CT head pending -BGM q6hrs, ISS/aspart -propofol to keep rass score -2 -dvt ppx heparin sq -pud ppx ppi cc time 45 minutes -repeat abg pending -multiple diagnostic tests pending -prognosis unknown pending above diagnostic tests. - Date & Time Date: 07/14/17 Time: 03:05
[2017-07-14] MEDS ORDERED: Propofol 10 mg/ml 1,000 MG/100 ML VIAL IVP PRN (03:20)
--- NOTE | 2017-07-14 03:21 | CP.PCM.CON ---
History of Present Illness - History of Present Illness History of Present Illness: 72 y/o HTN, DM hypothyroidism, morbidly obesity, in ER obtunded from CO2 narcosis. Called for emergent intubation. Review of Systems - Review of Systems Systems not reviewed;Unavailable: Respiratory Distress - Gastrointestinal Additional comments: soft Past Patient History - Infectious Disease Hx of Infectious Diseases: VRE - Tetanus Immunizations Tetanus Immunization: Unknown - Past Medical History & Family History Past Medical History?: Yes - Past Social History Smoking Status: Unable to obtain as patient has Co2 narcosis - CARDIAC Hx Hypertension: Yes - PULMONARY Hx Chronic Obstructive Pulmonary Disease (COPD): Yes Hx Sleep Apnea: Yes (on Bipap) - NEUROLOGICAL Hx Parkinson's Disease: Yes - HEENT Hx HEENT Problems: No - RENAL Hx Chronic Kidney Disease: No - ENDOCRINE/METABOLIC Hx Hypothyroidism: Yes - HEMATOLOGICAL/ONCOLOGICAL Hx Anemia: Yes - INTEGUMENTARY Hx Dermatological Problems: No - MUSCULOSKELETAL/RHEUMATOLOGICAL Hx Arthritis: Yes - GASTROINTESTINAL Hx Constipation: Yes Hx Gastroesophageal Reflux: Yes - GENITOURINARY/GYNECOLOGICAL Hx Incontinence: Yes Hx Urinary Tract Infection: Yes - PSYCHIATRIC Hx Anxiety: Yes Hx Bipolar Disorder: Yes Hx Depression: Yes Hx Substance Use: No - SURGICAL HISTORY Hx Surgeries: Yes Other/Comment: right knee replacement 2014; right knee prosthesis removal s/p infection 2014 - ANESTHESIA Hx Anesthesia: Yes Hx Anesthesia Reactions: No Hx Malignant Hyperthermia: No Meds Allergies/Adverse Reactions: Allergies Allergy/AdvReac Type Severity Reaction Status Date / Time Cephalosporins Allergy Intermediate RASH Verified 04/17/17 18:44 Penicillins Allergy Intermediate RASH Verified 04/17/17 18:44 clonazepam [From Klonopin] Allergy Verified 04/17/17 18:44 mustard Allergy Intermediate RASH Uncoded 04/17/17 18:44 - Medications Medications: Current Medications Albuterol/Ipratropium (Duoneb 3 Mg/0.5 Mg (3 Ml) Ud) 3 ml INH RQ6 TIMOTEO Physical Exam - Constitutional Appears: In Acute Distress - Respiratory Exam Additional comments: coarse, decreased breath sounds/hypoventilating - Cardiovascular Exam Cardiovascular Exam: REGULAR RHYTHM - GI/Abdominal Exam GI & Abdominal Exam: Soft - Extremities Exam Additional comments: all extremities warm well perfused Results - Vital Signs Recent Vital Signs: Last Vital Signs Temp Pulse 73 07/14/17 01:11 Resp 18 07/14/17 01:07 BP 116/95 H 07/14/17 01:07 Pulse Ox 95 07/14/17 02:36 - Labs Result Diagrams: 07/14/17 01:47 07/14/17 01:47 Labs: Laboratory Results - last 24 hr 07/14/17 07/14/17 07/14/17 01:19 01:47 01:47 WBC 12.3 H D RBC 4.16 Hgb 11.5 Hct 37.0 MCV 88.9 D MCH 27.6 MCHC 31.1 L RDW 15.2 H Plt Count 310 MPV 8.3 Neut % (Auto) 73.8 Lymph % (Auto) 17.2 L Pe[place] % (Auto) 8.0 Eos % (Auto) 0.4 Baso % (Auto) 0.6 Neut # 9.0 H Lymph # 2.1 Pe[place] # 1.0 H Eos # 0.1 Baso # 0.1 PT INR APTT Puncture Site R b pCO2 101 H* pO2 90 HCO3 22.0 ABG pH 7.07 L* ABG Total CO2 32.4 H ABG O2 Saturation 97.2 ABG Base Excess -3.6 L Donta Test Na ABG Potassium 2.7 L A-a O2 Difference 497.0 Respiratory Index 5.5 Sodium 146.0 137 Chloride 115.0 H 91 L Glucose 101 Lactate 0.5 L Liter Flow 15.0 FiO2 100.0 Crit Value Called To Dr sol Crit Value Called By Yecenia ayala rt Crit Value Read Back Y Blood Gas Notified Time 126 Potassium 4.3 Carbon Dioxide 39 H Anion Gap 11 BUN 20 H Creatinine 0.8 Est GFR ( Amer) > 60 Est GFR (Non-Af Amer) > 60 Random Glucose 132 H Calcium 8.6 Total Bilirubin 0.3 AST 11 L D ALT 20 Alkaline Phosphatase 60 Troponin I < 0.0120 NT-Pro-B Natriuret Pep 362 Total Protein 7.5 Albumin 3.7 Globulin 3.8 Albumin/Globulin Ratio 1.0 Arterial Blood Potassium 2.7 L 07/14/17 01:47 WBC RBC Hgb Hct MCV MCH MCHC RDW Plt Count MPV Neut % (Auto) Lymph % (Auto) Peach % (Auto) Eos % (Auto) Baso % (Auto) Neut # Lymph # [place] # Eos # Baso # PT 11.3 INR 1.0 APTT 36 H Puncture Site pCO2 pO2 HCO3 ABG pH ABG Total CO2 ABG O2 Saturation ABG Base Excess Donta Test ABG Potassium A-a O2 Difference Respiratory Index Sodium Chloride Glucose Lactate Liter Flow FiO2 Crit Value Called To Crit Value Called By Crit Value Read Back Blood Gas Notified Time Potassium Carbon Dioxide Anion Gap BUN Creatinine Est GFR ( Amer) Est GFR (Non-Af Amer) Random Glucose Calcium Total Bilirubin AST ALT Alkaline Phosphatase Troponin I NT-Pro-B Natriuret Pep Total Protein Albumin Globulin Albumin/Globulin Ratio Arterial Blood Potassium
[2017-07-14] MEDS ORDERED: Vancomycin 1 gm/NS 200 ml 1 GM/200 ML BAG IVPB STA (03:22)
[2017-07-14] MEDS ORDERED: Sodium Chloride 0.9% 1,000 ML IV SCH (03:30)
--- NOTE | 2017-07-14 03:32 | PCM.ANES ---
Anesthesia Emergent Intubation - Diagnosis Working Diagnosis:: C02 narcosis, respiratory acidosis, hypercapneic respiratory failure - Intubation Attempts Previous Number of Intubation Attempts:: 1 - Pre-Intubation Vital Signs Blood Pressure: 120/83 Heart Rate: 100 O2 Sat: 85 Oxygen Delivery Method: BiPAP Level Of Consciousness: Comatose/Unresponsive Intubation Meds Given: Succinylcholine - Airway Management Oropharyngeal Area Suctioned: Yes Rapid Sequence: Yes Cricoid Pressure: Yes Possible Aspiration: No - Method of Intubation Intubation Method: Oral ETT ETT Size: 7.0 Lipline@: 22 Easy: Yes Atramatic: Yes - Intubation Devices Ridgeley Scope Used: Yes - Placement Confirmation Breath Sounds Present & Equal Bilaterally: Yes Gurgling Sounds Not Audible at Epigastrum: Yes Positive EtCO2: Yes Portable CXR: Yes (pending) Recommendations: Ventilator - Post-Intubation Vital Signs Blood Pressure: 140/80 Heart Rate: 90 Respiratory Rate: 18 O2 Sat: 99
[2017-07-14] MEDS ORDERED: Aztreonam 1 GM in Sodium Chloride 0.9% 100 ML IVPB SCH ×3 (04:00→06:45)
[2017-07-14 04:03] LABS: ABG MECHANICAL RATE 22; ARTERIAL BLOOD GAS MODE A/C; ATERIAL BLOOD GAS PEEP 5
--- NOTE | 2017-07-14 04:03 | CP.PCM.HP ---
History of Present Illness - History of Present Illness History of Present Illness: HPI: 71F with PMH COPD and DM per ER nurse presents to the ED from [facility] after being found unresponsive in the [facility] since 5pm. Patient was recently admitted in the past for similar symptoms and was found to be hypoxic and hypercarbic. Patient was intubated in the ED. ROS could not be obtained. PMD: Dr. Tovar [facility] Medical History per [facility] paperwork: Pyogenic arthritis; HTN; anemia; parkinson's disease; anxiety disorder; COPD; bipolar disorder; inflammatory polyneuropathy; angina pectoris; constipation; unspecified acute conjunctivitis ; hypothyroidism; major depressive disorder; CAD; GERD; lyme disease; Diabetes Present on Admission - Present on Admission Any Indicators Present on Admission: No Review of Systems - Review of Systems Systems not reviewed;Unavailable: Intubated Past Patient History - Infectious Disease Hx of Infectious Diseases: VRE - Tetanus Immunizations Tetanus Immunization: Unknown - Past Medical History & Family History Past Medical History?: Yes - Past Social History Smoking Status: Unable to obtain as patient has Co2 narcosis - CARDIAC Hx Hypertension: Yes - PULMONARY Hx Chronic Obstructive Pulmonary Disease (COPD): Yes Hx Sleep Apnea: Yes (on Bipap) - NEUROLOGICAL Hx Parkinson's Disease: Yes - HEENT Hx HEENT Problems: No - RENAL Hx Chronic Kidney Disease: No - ENDOCRINE/METABOLIC Hx Hypothyroidism: Yes - HEMATOLOGICAL/ONCOLOGICAL Hx Anemia: Yes - INTEGUMENTARY Hx Dermatological Problems: No - MUSCULOSKELETAL/RHEUMATOLOGICAL Hx Arthritis: Yes - GASTROINTESTINAL Hx Constipation: Yes Hx Gastroesophageal Reflux: Yes - GENITOURINARY/GYNECOLOGICAL Hx Incontinence: Yes Hx Urinary Tract Infection: Yes - PSYCHIATRIC Hx Anxiety: Yes Hx Bipolar Disorder: Yes Hx Depression: Yes Hx Substance Use: No - SURGICAL HISTORY Hx Surgeries: Yes Other/Comment: right knee replacement 2014; right knee prosthesis removal s/p infection 2015 - ANESTHESIA Hx Anesthesia: Yes Hx Anesthesia Reactions: No Hx Malignant Hyperthermia: No Meds Allergies/Adverse Reactions: Allergies Allergy/AdvReac Type Severity Reaction Status Date / Time Cephalosporins Allergy Intermediate RASH Verified 04/17/17 18:44 Penicillins Allergy Intermediate RASH Verified 04/17/17 18:44 clonazepam [From Klonopin] Allergy Verified 04/17/17 18:44 mustard Allergy Intermediate RASH Uncoded 04/17/17 18:44 Physical Exam - Constitutional Appears: Chronically Ill - Head Exam Head Exam: ATRAUMATIC, NORMAL INSPECTION - Eye Exam Pupil Exam: Fixed - ENT Exam ENT Exam: Mucous Membranes Dry - Respiratory Exam Respiratory Exam: NORMAL BREATHING PATTERN - Cardiovascular Exam Cardiovascular Exam: REGULAR RHYTHM, +S1, +S2 - GI/Abdominal Exam GI & Abdominal Exam: Hypoactive Bowel Sounds, Soft - Extremities Exam Extremities exam: Positive for: normal inspection - Skin Skin Exam: Normal Color, Warm Results - Vital Signs Recent Vital Signs: Last Vital Signs Temp Pulse 100 H 07/14/17 03:39 Resp 18 07/14/17 01:07 BP 120/83 07/14/17 03:39 Pulse Ox 85 L 07/14/17 03:39 - Labs Result Diagrams: 07/14/17 01:47 07/14/17 01:47 Labs: Laboratory Results - last 24 hr 07/14/17 07/14/17 07/14/17 01:19 01:47 01:47 WBC 12.3 H D RBC 4.16 Hgb 11.5 Hct 37.0 MCV 88.9 D MCH 27.6 MCHC 31.1 L RDW 15.2 H Plt Count 310 MPV 8.3 Neut % (Auto) 73.8 Lymph % (Auto) 17.2 L Jennings % (Auto) 8.0 Eos % (Auto) 0.4 Baso % (Auto) 0.6 Neut # 9.0 H Lymph # 2.1 Jennings # 1.0 H Eos # 0.1 Baso # 0.1 PT INR APTT Puncture Site R b pCO2 101 H* pO2 90 HCO3 22.0 ABG pH 7.07 L* ABG Total CO2 32.4 H ABG O2 Saturation 97.2 ABG Base Excess -3.6 L Donta Test Na ABG Potassium 2.7 L A-a O2 Difference 497.0 Respiratory Index 5.5 Sodium 146.0 137 Chloride 115.0 H 91 L Glucose 101 Lactate 0.5 L Liter Flow 15.0 FiO2 100.0 Crit Value Called To Dr sol Crit Value Called By Yecenia ayala rt Crit Value Read Back Y Blood Gas Notified Time 126 Potassium 4.3 Carbon Dioxide 39 H Anion Gap 11 BUN 20 H Creatinine 0.8 Est GFR ( Amer) > 60 Est GFR (Non-Af Amer) > 60 Random Glucose 132 H Calcium 8.6 Total Bilirubin 0.3 AST 11 L D ALT 20 Alkaline Phosphatase 60 Troponin I < 0.0120 NT-Pro-B Natriuret Pep 362 Total Protein 7.5 Albumin 3.7 Globulin 3.8 Albumin/Globulin Ratio 1.0 Arterial Blood Potassium 2.7 L 07/14/17 01:47 WBC RBC Hgb Hct MCV MCH MCHC RDW Plt Count MPV Neut % (Auto) Lymph % (Auto) [place] % (Auto) Eos % (Auto) Baso % (Auto) Neut # Lymph # [place] # Eos # Baso # PT 11.3 INR 1.0 APTT 36 H Puncture Site pCO2 pO2 HCO3 ABG pH ABG Total CO2 ABG O2 Saturation ABG Base Excess Donta Test ABG Potassium A-a O2 Difference Respiratory Index Sodium Chloride Glucose Lactate Liter Flow FiO2 Crit Value Called To Crit Value Called By Crit Value Read Back Blood Gas Notified Time Potassium Carbon Dioxide Anion Gap BUN Creatinine Est GFR ( Amer) Est GFR (Non-Af Amer) Random Glucose Calcium Total Bilirubin AST ALT Alkaline Phosphatase Troponin I NT-Pro-B Natriuret Pep Total Protein Albumin Globulin Albumin/Globulin Ratio Arterial Blood Potassium Assessment & Plan - Assessment and Plan (Free Text) Assessment: 1.) Hypercapneic respiratory failure - patient intubated by anesthesia in the ED - Patient admitted to the ICU - f/u head CT - f/u chest xray - Propofol 10mg/ml 2.) Leukocytosis: - Sepsis protocol - f/u repeat ABG - IVF @42cc/hr - f/u blood culture and sputum culture Medications: * vancomycin 1g * Aztreonam 1gm q8h * moxifloxaxin 400mg q24h 3.) Prophylaxis - heparin sc - protonix 40mg IV q12h
[2017-07-14] MEDS: Moxifloxacin IV 400mg/250ml NS 400 MG/250 ML BAG IVPB SCH (04:20)
[2017-07-14] MEDS ORDERED: Propofol 10 mg/ml 1,000 MG/100 ML VIAL ONE (04:26)
--- NOTE | 2017-07-14 05:12 | CT ---
EXAM: CT Head Without Intravenous Contrast CLINICAL HISTORY: 72 years old, female; Signs and symptoms; Altered mental status/memory loss; Confusion or disorientation; Additional info: AMS TECHNIQUE: Axial computed tomography images of the head/brain without intravenous contrast. All CT scans at this facility use one or more dose reduction techniques, viz.: automated exposure control; ma/kV adjustment per patient size (including targeted exams where dose is matched to indication; i.e. head); or iterative reconstruction technique. COMPARISON: CT - HEAD W/O CONTRAST 2017-06-22 01:29 FINDINGS: Limitations: Motion artifact - mild. Brain: Mild atrophy. No definite intracranial hemorrhage. No mass. No definite edema. Ventricles: No hydrocephalus. Bones/joints: No acute fracture. Soft tissues: Unremarkable. Sinuses: Complete opacification of RIGHT maxillary sinus. Scattered minimal mucosal thickening of remaining sinuses. Mastoid air cells: Partial opacification of RIGHT mastoid. Orbits: Unremarkable as visualized. Tubes, lines and devices: Endotracheal tube. IMPRESSION: 1. No definite acute intracranial abnormality. Acute infarction may be CT occult within first 24 hours. If a focal deficit persists, consider followup CT or MRI for further evaluation. 2. Sinus disease. 3. Mastoid disease. 4. Incidental/non-acute findings are described above.
[2017-07-14] MEDS ORDERED: Vancomycin 1 gm/NS 200 ml 1 GM/200 ML BAG IVPB ONE (06:00)
[2017-07-14 06:19] LABS: ABG ALLEN TEST POS; ABG MECHANICAL RATE 22; ARTERIAL BLOOD GAS MODE A/C; ATERIAL BLOOD GAS PEEP 5; DRAW SITE RR
[2017-07-14 06:21] LABS: DRAW SITE R B
[2017-07-14] MEDS: MethylPREDNISolone 40 mg Vial IVP SCH ×3 (06:36→21:35)
[2017-07-14 06:41] LABS: RBC URINE 4 /hpf (0-3); URINE BACTERIA MANY (<OCC); URINE BILIRUBIN NEGATIVE (NEGATIVE); URINE BLOOD NEGATIVE (NEGATIVE); URINE COLOR Amber (YELLOW); URINE GLUCOSE (UA) NORMAL (Normal); URINE KETONE TRACE mg/dL (NEGATIVE); URINE LEUKOCYTE ESTERASE 2+ Leu/uL (Negative); URINE PROTEIN 3+ mg/dL (NEGATIVE); URINE UROBILINOGEN NORMAL mg/dL (0.2-1.0); WBC URINE 316 /hpf (0-5)
[2017-07-14] MEDS: (Novolog) Insulin Aspart, Recombinant 100 u/ml 10 ml vial SC SCH ×3 (06:41→18:00)
[2017-07-14] MEDS ORDERED: Propofol 10 mg/ml Inj (100 ml) IV PRN (07:00)
[2017-07-14] MEDS ORDERED: Propofol 10 mg/ml Inj (100 ml) IV SCH (07:00)
[2017-07-14] MEDS: Propofol 10 mg/ml 1,000 MG/100 ML VIAL IV PRN ×5 (07:00→23:10)
[2017-07-14 07:04] LABS: PHOSPHOROUS 3.9 mg/dL (2.5-4.5)
[2017-07-14] MEDS: Sodium Chloride 0.9% 1,000 ML IV SCH ×2 (12:00→19:00)
--- NOTE | 2017-07-14 19:10 | RAD ---
HISTORY: et tube Comparison chest dated COMPARISON: Comparison chest dated 07/14/2017 at 01:32 hours FINDINGS: ETT tip lies approximately 4.7 cm above aleena. LUNGS: Right basilar atelectasis. Left lower lobe opacity may represent sequela underpenetration and cardiomegaly however possibility of left lower lobe atelectasis/infiltrate and effusion not excluded. PLEURA: No significant pleural effusion identified, no pneumothorax apparent. CARDIOVASCULAR: Cardiomegaly. OSSEOUS STRUCTURES: No significant abnormalities. VISUALIZED UPPER ABDOMEN: Normal. OTHER FINDINGS: None. IMPRESSION: ETT as above. Right basilar atelectasis. Left lower lobe opacity may represent sequela underpenetration and cardiomegaly however possibility of left lower lobe atelectasis/infiltrate and effusion not excluded.
--- NOTE | 2017-07-14 19:11 | RAD ---
PROCEDURE: CHEST RADIOGRAPH, 1 VIEW HISTORY: chest pain COMPARISON: Comparison made with chest radiograph 06/22/2017. FINDINGS: LUNGS: Poor inspiration with low lung volumes, crowded bronchovascular markings and mild bibasilar atelectasis. PLEURA: No pneumothorax or pleural fluid seen. CARDIOVASCULAR: Cardiomegaly. OSSEOUS STRUCTURES: No significant abnormalities. VISUALIZED UPPER ABDOMEN: Normal. OTHER FINDINGS: None. IMPRESSION: Poor inspiration with low lung volumes, crowded bronchovascular markings and mild bibasilar atelectasis.
[2017-07-14] MEDS: Albuterol-Ipratrop 3 mg / 0.5 (3 ml) UD INH SCH (20:50)
[2017-07-15] MEDS: (Novolog) Insulin Aspart, Recombinant 100 u/ml 10 ml vial SC SCH ×5 (00:56→22:46)
[2017-07-15] MEDS: Albuterol-Ipratrop 3 mg / 0.5 (3 ml) UD INH SCH ×4 (02:54→20:34)
[2017-07-15] MEDS: Moxifloxacin IV 400mg/250ml NS 400 MG/250 ML BAG IVPB SCH (03:33)
[2017-07-15] MEDS: Propofol 10 mg/ml 1,000 MG/100 ML VIAL IV PRN (03:38)
[2017-07-15] MEDS: Sodium Chloride 0.9% 1,000 ML IV SCH (03:40)
[2017-07-15 05:54] LABS: ABG ALLEN TEST POS; ABG MECHANICAL RATE 18; ARTERIAL BLOOD GAS MODE PRVC; ARTERIAL BLOOD HGB O2 SAT 96.2 % (95.0-98.0); ATERIAL BLOOD GAS PEEP 5; CARBOXYHEMOGLOBIN 1.5 % (0.5-1.5); DRAW SITE RR; HHB 1.3 % (0.0-5.0)
[2017-07-15] MEDS: MethylPREDNISolone 40 mg Vial IVP SCH ×3 (06:38→23:26)
[2017-07-15 06:40] LABS: BASO % 0.1 % (0.0-2.0); HEMATOCRIT 32.2 % (34.0-47.0); LYMPH # 1.5 K/uL (1.0-4.3); LYMPH % 15.8 % (20.0-40.0); MEAN CELL VOLUME 84.9 fL (81.0-99.0); MEAN CORPUSCULAR HEMOGLOBIN 28.4 pg (27.0-31.0); MEAN CORPUSCULAR HGB CONC 33.5 g/dL (33.0-37.0); MEAN PLATELET VOLUME 8.8 fL (7.2-11.7); MONO # 0.9 K/uL (0.0-0.8); MONO % 8.8 % (0.0-10.0); RED CELL DISTRIBUTION WIDTH 15.2 % (11.5-14.5); WHITE BLOOD COUNT 9.6 K/uL (4.8-10.8)
[2017-07-15 06:54] LABS: CHLORIDE 95 mmol/L (98-107)
[2017-07-15 07:22] LABS: ALB/GLOB RATIO 1.2 (1.0-2.1); ALKALINE PHOSPHATASE 66 U/L (38-126); ALT/SGPT 24 U/L (9-52); AST/SGOT 12 U/L (14-36); BILIRUBIN,TOTAL 0.6 mg/dL (0.2-1.3); BLOOD UREA NITROGEN 23 mg/dL (7-17); CARBON DIOXIDE 30 mmol/L (22-30); GFR AFRICAN-AMERICAN > 60; GLUCOSE,RANDOM 136 mg/dL (65-105); MAGNESIUM 1.8 mg/dL (1.6-2.3); PHOSPHOROUS 2.3 mg/dL (2.5-4.5); POTASSIUM 3.7 mmol/L (3.6-5.2); SODIUM 131 mmol/L (132-148)
[2017-07-15] MEDS: Levothyroxine 150 MCG TAB PO SCH (10:10)
--- NOTE | 2017-07-15 11:10 | RAD ---
HISTORY: on vent COMPARISON: Portable chest 07/14/2017. FINDINGS: Nasogastric tube is now placed with the tip directed into the left parveen abdomen but off the image inferiorly. Endotracheal tube is unchanged in position. LUNGS: Persistent dense opacification left base is unchanged with crowding of the right medial right basilar bronchovascular markings favored over additional infiltrate. PLEURA: Left pleural effusions not excluded. None is seen at the right. No pneumothorax in the interval bilaterally. CARDIOVASCULAR: Prominent cardiac silhouette is stable with borderline pulmonary venous congestion however. OSSEOUS STRUCTURES: No significant abnormalities. VISUALIZED UPPER ABDOMEN: Normal. OTHER FINDINGS: None. IMPRESSION: Stable chest radiograph with persistent dense atelectasis or infiltrate opacified base with left pleural effusion not excluded. The crowding of the bronchovascular markings is favored over infiltrate in the right infrahilar space/medial right base. Nasogastric tube now identified in position.
--- NOTE | 2017-07-15 17:10 | CP.CCUPN ---
CCU Subjective - Physician Review Subjective (Free Text): PGY1 ICU Progress Note for Dr. Cobb Patient seen and examined at bedside this morning. Patient intubated. ROS unobtainable. CCU Objective - Vital Signs / Intake & Output Vital Signs (Last 4 hours): Vital Signs Temp Pulse Resp BP Pulse Ox 07/15/17 16:00 98.8 F 65 11 L 07/15/17 15:53 65 17 147/88 100 07/15/17 15:01 69 12 147/88 100 07/15/17 15:00 73 23 07/15/17 14:01 69 29 H 160/79 H 100 07/15/17 14:00 66 29 H 100 Intake and Output (Last 8hrs): Intake & Output 07/15/17 07/15/17 07/15/17 06:59 14:59 22:59 Intake Total 1355.0 466.5 40 Output Total 295 350 100 Balance 1060.0 116.5 -60 Weight 299 lb 9.731 oz Intake: IV 248 Intake, IV Amount 1107.0 466.5 RF TLC Distal 150.2 41.5 RF TLC Medial 956.8 425 Oral 0 TPN/PPN 40 Output: Urine 295 350 100 Urethral (Edmond) 295 350 100 Other: # Bowel Movements 0 - Physical Exam Head: Positive for: Atraumatic, Normocephalic Respiratory/Chest: Positive for: Decreased Breath Sounds (obese). Negative for : Respiratory Distress, Accessory Muscle Use Upper Extremity: Negative for: Edema Lower Extremity: Positive for: Edema Neurological: Positive for: Other (intubated) Skin: Negative for: Warm, Dry Psychiatric: Negative for: Alert - Medications Active Medications: Active Medications Generic Name Dose Route Start Last Admin Trade Name Freq PRN Reason Stop Dose Admin Albuterol/Ipratropium 3 ml 07/14/17 08:00 07/15/17 14:35 Duoneb 3 Mg/0.5 Mg (3 Ml) Ud INH 3 ml RQ6 TIMOTEO Administration Carvedilol 25 mg 07/14/17 18:00 07/15/17 10:10 Coreg PO 25 mg BID TIMOTEO Administration Docusate Sodium 200 mg 07/14/17 22:00 07/14/17 21:36 Colace PO 200 mg HS TIMOTEO Administration Duloxetine HCl 30 mg 07/14/17 18:00 07/15/17 10:10 Cymbalta PO 30 mg BID TIMOTEO Administration Enalapril Maleate 5 mg 07/15/17 10:00 07/15/17 10:11 Vasotec PO 5 mg DAILY TIMOTEO Administration Gabapentin 300 mg 07/14/17 18:00 07/15/17 10:10 Neurontin PO 300 mg BID TIMOTEO Administration Heparin Sodium (Porcine) 5,000 units 07/14/17 06:00 07/15/17 14:02 Heparin SC 5,000 units Q8 TIMOTEO Administration Aztreonam 1 gm/ Sodium 50 mls @ 200 mls/hr 07/14/17 06:45 07/15/17 14:02 Chloride IVPB 200 mls/hr Q8H TIMOTEO Administration Propofol 1,000 mg in 100 mls @ 33.29 mls/hr 07/14/17 07:39 07/15/17 06:30 Diprivan IV 10 mcg/kg/min .Q3H1M PRN 8.323 mls/hr TITRATE PER MD ORDER Titration Protocol 40 MCG/KG/MIN Insulin Aspart 0 unit 07/14/17 06:00 07/15/17 12:54 Novolog SC 2 unit Q6 TIMOTEO Administration Protocol Levothyroxine Sodium 150 mcg 07/15/17 10:00 07/15/17 10:10 Synthroid PO 150 mcg DAILY TIMOTEO Administration Methylprednisolone 40 mg 07/14/17 06:00 07/15/17 14:02 Solu-Medrol IVP 40 mg Q8 TIMOTEO Administration Montelukast Sodium 10 mg 07/15/17 10:00 07/15/17 10:10 Singulair PO 10 mg DAILY TIMOTEO Administration Moxifloxacin HCl 400 mg 07/16/17 10:00 Avelox PO DAILY TIMOTEO Pantoprazole Sodium 40 mg 07/14/17 03:30 07/15/17 16:54 Protonix Inj IVP 40 mg Q12H TIMOTEO Administration - Patient Studies Lab Studies: Microbiology Studies 07/14/17 01:30 Blood Culture - Preliminary Blood NO GROWTH AFTER 24 HOURS 07/14/17 01:00 Blood Culture - Preliminary Blood NO GROWTH AFTER 24 HOURS 07/14/17 06:02 Urine Culture - Preliminary Urine Gram Negative Darwin 07/14/17 05:41 Gram Stain - Final Trachasp Lab Studies 11/27/17 11/27/17 11/27/17 Range/Units 12:24 06:36 06:20 WBC 9.6 (4.8-10.8) K/uL RBC 3.80 (3.80-5.20) Mil/uL Hgb 10.8 L (11.0-16.0) g/dL Hct 32.2 L (34.0-47.0) % MCV 84.9 D (81.0-99.0) fL MCH 28.4 (27.0-31.0) pg MCHC 33.5 (33.0-37.0) g/dL RDW 15.2 H (11.5-14.5) % Plt Count 296 (130-400) K/uL MPV 8.8 (7.2-11.7) fL Neut % (Auto) 75.3 H (50.0-75.0) % Lymph % (Auto) 15.8 L (20.0-40.0) % George % (Auto) 8.8 (0.0-10.0) % Eos % (Auto) 0.0 (0.0-4.0) % Baso % (Auto) 0.1 (0.0-2.0) % Neut # 7.2 H (1.8-7.0) K/uL Lymph # 1.5 (1.0-4.3) K/uL George # 0.9 H (0.0-0.8) K/uL Eos # 0.0 (0.0-0.7) K/uL Baso # 0.0 (0.0-0.2) K/uL Puncture Site pCO2 (35-45) mm/Hg pO2 (80-100) mm/Hg HCO3 (21-28) mmol/L ABG pH (7.35-7.45) ABG Total CO2 (22-28) mmol/L ABG O2 Saturation (95-98) % ABG Base Excess (-2.0-3.0) mmol/L ABG Hemoglobin (11.7-17.4) g/dL ABG Carboxyhemoglobin (0.5-1.5) % POC ABG HHb (Measured) (0.0-5.0) % ABG Methemoglobin (0.0-3.0) % Donta Test A-a O2 Difference mm/Hg Respiratory Index Hgb O2 Saturation (95.0-98.0) % Vent Mode Mechanical Rate FiO2 % Tidal Volume PEEP Sodium (132-148) mmol/L Potassium (3.6-5.2) mmol/L Chloride (98-107) mmol/L Carbon Dioxide (22-30) mmol/L Anion Gap (10-20) BUN (7-17) mg/dL Creatinine (0.7-1.2) mg/dL Est GFR ( Amer) Est GFR (Non-Af Amer) POC Glucose (mg/dL) 161 H (65-110) mg/dL Random Glucose (65-105) mg/dL Lactic Acid 1.4 (0.7-2.1) mmol/L Calcium (8.6-10.4) mg/dl Phosphorus (2.5-4.5) mg/dL Magnesium (1.6-2.3) mg/dL Total Bilirubin (0.2-1.3) mg/dL AST (14-36) U/L ALT (9-52) U/L Alkaline Phosphatase (38-126) U/L Troponin I (0.00-0.120) ng/mL Total Protein (6.3-8.3) g/dL Albumin (3.5-5.0) g/dL Globulin (2.2-3.9) gm/dL Albumin/Globulin Ratio (1.0-2.1) 07/15/17 07/15/17 07/15/17 Range/Units 06:20 05:35 05:03 WBC (4.8-10.8) K/uL RBC (3.80-5.20) Mil/uL Hgb (11.0-16.0) g/dL Hct (34.0-47.0) % MCV (81.0-99.0) fL MCH (27.0-31.0) pg MCHC (33.0-37.0) g/dL RDW (11.5-14.5) % Plt Count (130-400) K/uL MPV (7.2-11.7) fL Neut % (Auto) (50.0-75.0) % Lymph % (Auto) (20.0-40.0) % George % (Auto) (0.0-10.0) % Eos % (Auto) (0.0-4.0) % Baso % (Auto) (0.0-2.0) % Neut # (1.8-7.0) K/uL Lymph # (1.0-4.3) K/uL George # (0.0-0.8) K/uL Eos # (0.0-0.7) K/uL Baso # (0.0-0.2) K/uL Puncture Site Rr pCO2 41 (35-45) mm/Hg pO2 103 H (80-100) mm/Hg HCO3 32.5 H (21-28) mmol/L ABG pH 7.52 H (7.35-7.45) ABG Total CO2 34.8 H (22-28) mmol/L ABG O2 Saturation 98.7 H (95-98) % ABG Base Excess 9.7 H (-2.0-3.0) mmol/L ABG Hemoglobin 11.0 L (11.7-17.4) g/dL ABG Carboxyhemoglobin 1.5 (0.5-1.5) % POC ABG HHb (Measured) 1.3 (0.0-5.0) % ABG Methemoglobin 1.0 (0.0-3.0) % Donta Test Pos A-a O2 Difference 345.0 mm/Hg Respiratory Index 3.3 Hgb O2 Saturation 96.2 (95.0-98.0) % Vent Mode Prvc Mechanical Rate 18 FiO2 70.0 % Tidal Volume 450 PEEP 5 Sodium 131 L (132-148) mmol/L Potassium 3.7 (3.6-5.2) mmol/L Chloride 95 L (98-107) mmol/L Carbon Dioxide 30 (22-30) mmol/L Anion Gap 10 (10-20) BUN 23 H (7-17) mg/dL Creatinine 0.7 (0.7-1.2) mg/dL Est GFR ( Amer) > 60 Est GFR (Non-Af Amer) > 60 POC Glucose (mg/dL) 149 H (65-110) mg/dL Random Glucose 136 H (65-105) mg/dL Lactic Acid (0.7-2.1) mmol/L Calcium 8.0 L (8.6-10.4) mg/dl Phosphorus 2.3 L (2.5-4.5) mg/dL Magnesium 1.8 (1.6-2.3) mg/dL Total Bilirubin 0.6 (0.2-1.3) mg/dL AST 12 L (14-36) U/L ALT 24 (9-52) U/L Alkaline Phosphatase 66 (38-126) U/L Troponin I 0.0120 (0.00-0.120) ng/mL Total Protein 6.0 L (6.3-8.3) g/dL Albumin 3.3 L (3.5-5.0) g/dL Globulin 2.7 (2.2-3.9) gm/dL Albumin/Globulin Ratio 1.2 (1.0-2.1) 07/15/17 07/14/17 07/14/17 Range/Units 00:20 23:44 17:47 WBC (4.8-10.8) K/uL RBC (3.80-5.20) Mil/uL Hgb (11.0-16.0) g/dL Hct (34.0-47.0) % MCV (81.0-99.0) fL MCH (27.0-31.0) pg MCHC (33.0-37.0) g/dL RDW (11.5-14.5) % Plt Count (130-400) K/uL MPV (7.2-11.7) fL Neut % (Auto) (50.0-75.0) % Lymph % (Auto) (20.0-40.0) % George % (Auto) (0.0-10.0) % Eos % (Auto) (0.0-4.0) % Baso % (Auto) (0.0-2.0) % Neut # (1.8-7.0) K/uL Lymph # (1.0-4.3) K/uL George # (0.0-0.8) K/uL Eos # (0.0-0.7) K/uL Baso # (0.0-0.2) K/uL Puncture Site pCO2 (35-45) mm/Hg pO2 (80-100) mm/Hg HCO3 (21-28) mmol/L ABG pH (7.35-7.45) ABG Total CO2 (22-28) mmol/L ABG O2 Saturation (95-98) % ABG Base Excess (-2.0-3.0) mmol/L ABG Hemoglobin (11.7-17.4) g/dL ABG Carboxyhemoglobin (0.5-1.5) % POC ABG HHb (Measured) (0.0-5.0) % ABG Methemoglobin (0.0-3.0) % Donta Test A-a O2 Difference mm/Hg Respiratory Index Hgb O2 Saturation (95.0-98.0) % Vent Mode Mechanical Rate FiO2 % Tidal Volume PEEP Sodium (132-148) mmol/L Potassium (3.6-5.2) mmol/L Chloride (98-107) mmol/L Carbon Dioxide (22-30) mmol/L Anion Gap (10-20) BUN (7-17) mg/dL Creatinine (0.7-1.2) mg/dL Est GFR ( Amer) Est GFR (Non-Af Amer) POC Glucose (mg/dL) 183 H 152 H (65-110) mg/dL Random Glucose (65-105) mg/dL Lactic Acid (0.7-2.1) mmol/L Calcium (8.6-10.4) mg/dl Phosphorus (2.5-4.5) mg/dL Magnesium (1.6-2.3) mg/dL Total Bilirubin (0.2-1.3) mg/dL AST (14-36) U/L ALT (9-52) U/L Alkaline Phosphatase (38-126) U/L Troponin I < 0.0120 (0.00-0.120) ng/mL Total Protein (6.3-8.3) g/dL Albumin (3.5-5.0) g/dL Globulin (2.2-3.9) gm/dL Albumin/Globulin Ratio (1.0-2.1) Laboratory Results - last 24 hr 07/14/17 07/14/17 07/15/17 17:47 23:44 00:20 WBC RBC Hgb Hct MCV MCH MCHC RDW Plt Count MPV Neut % (Auto) Lymph % (Auto) George % (Auto) Eos % (Auto) Baso % (Auto) Neut # Lymph # George # Eos # Baso # Puncture Site pCO2 pO2 HCO3 ABG pH ABG Total CO2 ABG O2 Saturation ABG Base Excess ABG Hemoglobin ABG Carboxyhemoglobin POC ABG HHb (Measured) ABG Methemoglobin Donta Test A-a O2 Difference Respiratory Index Hgb O2 Saturation Vent Mode Mechanical Rate FiO2 Tidal Volume PEEP Sodium Potassium Chloride Carbon Dioxide Anion Gap BUN Creatinine Est GFR ( Amer) Est GFR (Non-Af Amer) POC Glucose (mg/dL) 152 H 183 H Random Glucose Lactic Acid Calcium Phosphorus Magnesium Total Bilirubin AST ALT Alkaline Phosphatase Troponin I < 0.0120 Total Protein Albumin Globulin Albumin/Globulin Ratio 07/15/17 07/15/17 07/15/17 05:03 05:35 06:20 WBC RBC Hgb Hct MCV MCH MCHC RDW Plt Count MPV Neut % (Auto) Lymph % (Auto) George % (Auto) Eos % (Auto) Baso % (Auto) Neut # Lymph # George # Eos # Baso # Puncture Site Rr pCO2 41 pO2 103 H HCO3 32.5 H ABG pH 7.52 H ABG Total CO2 34.8 H ABG O2 Saturation 98.7 H ABG Base Excess 9.7 H ABG Hemoglobin 11.0 L ABG Carboxyhemoglobin 1.5 POC ABG HHb (Measured) 1.3 ABG Methemoglobin 1.0 Donta Test Pos A-a O2 Difference 345.0 Respiratory Index 3.3 Hgb O2 Saturation 96.2 Vent Mode Prvc Mechanical Rate 18 FiO2 70.0 Tidal Volume 450 PEEP 5 Sodium 131 L Potassium 3.7 Chloride 95 L Carbon Dioxide 30 Anion Gap 10 BUN 23 H Creatinine 0.7 Est GFR ( Amer) > 60 Est GFR (Non-Af Amer) > 60 POC Glucose (mg/dL) 149 H Random Glucose 136 H Lactic Acid Calcium 8.0 L Phosphorus 2.3 L Magnesium 1.8 Total Bilirubin 0.6 AST 12 L ALT 24 Alkaline Phosphatase 66 Troponin I 0.0120 Total Protein 6.0 L Albumin 3.3 L Globulin 2.7 Albumin/Globulin Ratio 1.2 07/15/17 07/15/17 07/15/17 06:20 06:36 12:24 WBC 9.6 RBC 3.80 Hgb 10.8 L Hct 32.2 L MCV 84.9 D MCH 28.4 MCHC 33.5 RDW 15.2 H Plt Count 296 MPV 8.8 Neut % (Auto) 75.3 H Lymph % (Auto) 15.8 L George % (Auto) 8.8 Eos % (Auto) 0.0 Baso % (Auto) 0.1 Neut # 7.2 H Lymph # 1.5 George # 0.9 H Eos # 0.0 Baso # 0.0 Puncture Site pCO2 pO2 HCO3 ABG pH ABG Total CO2 ABG O2 Saturation ABG Base Excess ABG Hemoglobin ABG Carboxyhemoglobin POC ABG HHb (Measured) ABG Methemoglobin Donta Test A-a O2 Difference Respiratory Index Hgb O2 Saturation Vent Mode Mechanical Rate FiO2 Tidal Volume PEEP Sodium Potassium Chloride Carbon Dioxide Anion Gap BUN Creatinine Est GFR ( Amer) Est GFR (Non-Af Amer) POC Glucose (mg/dL) 161 H Random Glucose Lactic Acid 1.4 Calcium Phosphorus Magnesium Total Bilirubin AST ALT Alkaline Phosphatase Troponin I Total Protein Albumin Globulin Albumin/Globulin Ratio Fingerstick Blood Sugar Results: 149 Review of Systems - Review of Systems Systems not reviewed;Unavailable: Intubated Assessment/Plan - Assessment and Plan (Free Text) Assessment: 72 year old female with PMH of COPD and DM presents with hypercapneic respiratory failure, intubated in the ED. Plan: Respiratory: Intubated - CPAP w/ PS 12/28 35% - CPAP trail, possible extubation. will monitor. pCO2 47/pO2 72/HCO3 30.2/pH 7.44 CXR 07/15 - Stable chest radiograph with persistent dense atelectasis or infiltrate opacified base with left pleural effusion not excluded. The crowding of the bronchovascular markings is favored over infiltrate in the right infrahilar space/medial right base. Nasogastric tube now identified in position. Duonebs 3ml RQ6 Solumedrol 40 mg IVP Q8H Singulair 10mg PO daily Neuro: Head CT 07/14 - No definite acute intracranial abnormality. Acute infarction may be CT occult within first 24 hours. If a focal deficit persists, consider follow up CT or MRI for further evaluation. Sinus disease. Mastoid disease. Propofol drip Home meds - Cymbalta, Neurotin ID: Urine Culture - Gram Negative Darwin Blood Culture - Gram Positive Cocci x 1; negative x1 @ 24 hours Sputum Culture - negative Aztreonam 1gm IVPB Q8H Avelox 400mg PO daily CV: Coreg 25mg PO BID Vasotec 5mg PO daily Prophylactic Care: Heparin 5000u SC Q8H Protonix 40mg IVP Q12H ISS Synthroid 150mcg PO daily Case discussed with Dr. Reza Rondon
[2017-07-15 17:33] LABS: ARTERIAL BLOOD HGB O2 SAT 94.5 % (95.0-98.0); ATERIAL BLOOD GAS PEEP 5; CARBOXYHEMOGLOBIN 1.9 % (0.5-1.5); DRAW SITE RRA; HHB 2.7 % (0.0-5.0); METHEMOGLOBIN 0.9 % (0.0-3.0)
[2017-07-16] MEDS: Albuterol-Ipratrop 3 mg / 0.5 (3 ml) UD INH SCH ×4 (03:03→20:04)
[2017-07-16] MEDS: MethylPREDNISolone 40 mg Vial IVP SCH ×3 (05:22→21:59)
[2017-07-16 06:23] LABS: BASO % 0.1 % (0.0-2.0); HEMATOCRIT 35.3 % (34.0-47.0); LYMPH # 1.4 K/uL (1.0-4.3); LYMPH % 17.4 % (20.0-40.0); MEAN CORPUSCULAR HEMOGLOBIN 28.2 pg (27.0-31.0); MEAN CORPUSCULAR HGB CONC 32.8 g/dL (33.0-37.0); MEAN PLATELET VOLUME 8.9 fL (7.2-11.7); MONO # 0.7 K/uL (0.0-0.8); MONO % 8.8 % (0.0-10.0); NRBC % 0.1 % (0.0-2.0); RED CELL DISTRIBUTION WIDTH 15.3 % (11.5-14.5); WHITE BLOOD COUNT 7.8 K/uL (4.8-10.8)
[2017-07-16 07:47] LABS: ALB/GLOB RATIO 1.3 (1.0-2.1); ALKALINE PHOSPHATASE 67 U/L (38-126); ALT/SGPT 24 U/L (9-52); AST/SGOT 14 U/L (14-36); BILIRUBIN,TOTAL 0.6 mg/dL (0.2-1.3); BLOOD UREA NITROGEN 20 mg/dL (7-17); CALCIUM 7.7 mg/dl (8.6-10.4); CARBON DIOXIDE 29 mmol/L (22-30); CHLORIDE 96 mmol/L (98-107); GFR AFRICAN-AMERICAN > 60; GLUCOSE,RANDOM 131 mg/dL (65-105); PHOSPHOROUS 3.5 mg/dL (2.5-4.5); POTASSIUM 3.8 mmol/L (3.6-5.2); SODIUM 134 mmol/L (132-148); TOTAL PROTEIN 6.4 g/dL (6.3-8.3)
[2017-07-16] MEDS: (Novolog) Insulin Aspart, Recombinant 100 u/ml 10 ml vial SC SCH ×4 (08:06→22:03)
[2017-07-16] MEDS: Levothyroxine 150 MCG TAB PO SCH (09:16)
--- NOTE | 2017-07-16 10:47 | RAD ---
HISTORY: post extubation COMPARISON: 07/15/2017. FINDINGS: LUNGS: The right lung is clear. There is persistent consolidation in the left lower lobe. PLEURA: No change in left pleural effusion. No right pleural effusion or no pneumothorax apparent. CARDIOVASCULAR: Normal. OSSEOUS STRUCTURES: No significant abnormalities. VISUALIZED UPPER ABDOMEN: Normal. OTHER FINDINGS: None. IMPRESSION: Little interval change in left lower lobe consolidation and left pleural effusion. Follow-up is advised.
--- NOTE | 2017-07-16 16:52 | CP.CCUPN ---
<Mario Rondon - Last Filed: 07/16/17 17:01> CCU Subjective - Physician Review Subjective (Free Text): PGY1 ICU Progress Note for Dr. Romeo Patient seen and examined at bedside this morning. Patient is resting in bed on BiPAP. Patient state she is breathing better but does not appear completely comfortable. She says she is feeling much better and has no complaints at this time. CCU Objective - Vital Signs / Intake & Output Vital Signs (Last 4 hours): Vital Signs Temp Pulse Resp BP Pulse Ox 07/16/17 16:03 66 07/16/17 16:00 98.1 F 67 20 100 07/16/17 15:23 63 21 149/80 100 07/16/17 15:00 61 22 100 07/16/17 14:23 63 24 153/84 H 100 07/16/17 14:09 63 07/16/17 14:00 65 23 100 07/16/17 13:23 70 23 157/75 H 100 07/16/17 13:00 74 16 97 Intake and Output (Last 8hrs): Intake & Output 07/16/17 07/16/17 07/16/17 06:59 14:59 22:59 Intake Total 100 800 0 Output Total 920 975 Balance -820 -175 0 Weight 307 lb 5.19 oz Intake: Intake, IV Amount 50 RF TLC Proximal 50 Oral 750 0 TPN/PPN 100 Output: Urine 920 975 Urethral (Edmond) 920 775 Urine, Voided 200 Other: # Bowel Movements 1 - Physical Exam Head: Positive for: Atraumatic, Normocephalic Respiratory/Chest: Positive for: Respiratory Distress (mildly. short of breath.) , Decreased Breath Sounds (obese). Negative for: Accessory Muscle Use Upper Extremity: Negative for: Edema Lower Extremity: Positive for: Edema Neurological: Positive for: Motor Func Grossly Intact, Other (extubated. SOB on BiPAP) Skin: Positive for: Warm, Dry Psychiatric: Positive for: Alert, Oriented x 3 - Medications Active Medications: Active Medications Generic Name Dose Route Start Last Admin Trade Name Freq PRN Reason Stop Dose Admin Albuterol/Ipratropium 3 ml 07/14/17 08:00 07/16/17 14:08 Duoneb 3 Mg/0.5 Mg (3 Ml) Ud INH 3 ml RQ6 TIMOTEO Administration Carvedilol 25 mg 07/14/17 18:00 07/16/17 09:12 Coreg PO 25 mg BID TIMOTEO Administration Docusate Sodium 200 mg 07/14/17 22:00 07/15/17 22:22 Colace PO 200 mg HS TIMOTEO Administration Duloxetine HCl 30 mg 07/14/17 18:00 07/16/17 09:16 Cymbalta PO 30 mg BID TIMOTEO Administration Enalapril Maleate 5 mg 07/15/17 10:00 07/16/17 09:12 Vasotec PO 5 mg DAILY TIMOTEO Administration Gabapentin 300 mg 07/14/17 18:00 07/16/17 09:11 Neurontin PO 300 mg BID TIMOTEO Administration Heparin Sodium (Porcine) 5,000 units 07/14/17 06:00 07/16/17 13:48 Heparin SC 5,000 units Q8 TIMOTEO Administration Aztreonam 1 gm/ Sodium 50 mls @ 200 mls/hr 07/14/17 06:45 07/16/17 13:49 Chloride IVPB 200 mls/hr Q8H TIMOTEO Administration Insulin Aspart 0 unit 07/15/17 22:00 07/16/17 12:19 Novolog SC 2 unit ACHS TIMOTEO Administration Protocol Levothyroxine Sodium 150 mcg 07/15/17 10:00 07/16/17 09:16 Synthroid PO 150 mcg DAILY TIMOTEO Administration Methylprednisolone 40 mg 07/14/17 06:00 07/16/17 13:47 Solu-Medrol IVP 40 mg Q8 TIMOTEO Administration Montelukast Sodium 10 mg 07/15/17 10:00 07/16/17 09:11 Singulair PO 10 mg DAILY TIMOTEO Administration Moxifloxacin HCl 400 mg 07/16/17 10:00 07/16/17 09:11 Avelox PO 400 mg DAILY TIMOTEO Administration Pantoprazole Sodium 40 mg 07/14/17 03:30 07/16/17 15:45 Protonix Inj IVP 40 mg Q12H TIMOTEO Administration - Patient Studies Lab Studies: Microbiology Studies 07/14/17 01:30 Blood Culture - Preliminary Blood NO GROWTH AFTER 48 HOURS 07/14/17 05:41 Gram Stain - Final Trachasp Sputum Culture - Final NORMAL ORAL BREANNA 07/14/17 04:16 MRSA Culture (Admit) - Final Nose 07/14/17 06:02 Urine Culture - Final Urine Providencia Styadirtii 07/14/17 01:00 S.aureus & Coag-Neg Staph PNA FISH - Final Blood Blood Culture - Preliminary Gram Positive Cocci Gram Stain - Final Lab Studies 07/16/17 07/16/17 07/16/17 Range/Units 16:08 11:20 07:12 WBC (4.8-10.8) K/uL RBC (3.80-5.20) Mil/uL Hgb (11.0-16.0) g/dL Hct (34.0-47.0) % MCV (81.0-99.0) fL MCH (27.0-31.0) pg MCHC (33.0-37.0) g/dL RDW (11.5-14.5) % Plt Count (130-400) K/uL MPV (7.2-11.7) fL Neut % (Auto) (50.0-75.0) % Lymph % (Auto) (20.0-40.0) % [place] % (Auto) (0.0-10.0) % Eos % (Auto) (0.0-4.0) % Baso % (Auto) (0.0-2.0) % Neut # (1.8-7.0) K/uL Lymph # (1.0-4.3) K/uL [place] # (0.0-0.8) K/uL Eos # (0.0-0.7) K/uL Baso # (0.0-0.2) K/uL Puncture Site pCO2 (35-45) mm/Hg pO2 (80-100) mm/Hg HCO3 (21-28) mmol/L ABG pH (7.35-7.45) ABG Total CO2 (22-28) mmol/L ABG O2 Saturation (95-98) % ABG Base Excess (-2.0-3.0) mmol/L ABG Hemoglobin (11.7-17.4) g/dL ABG Carboxyhemoglobin (0.5-1.5) % POC ABG HHb (Measured) (0.0-5.0) % ABG Methemoglobin (0.0-3.0) % [place] Test A-a O2 Difference mm/Hg Respiratory Index Hgb O2 Saturation (95.0-98.0) % FiO2 % PEEP Pressure Support Sodium (132-148) mmol/L Potassium (3.6-5.2) mmol/L Chloride (98-107) mmol/L Carbon Dioxide (22-30) mmol/L Anion Gap (10-20) BUN (7-17) mg/dL Creatinine (0.7-1.2) mg/dL Est GFR ( Amer) Est GFR (Non-Af Amer) POC Glucose (mg/dL) 178 H 194 H 136 H (65-110) mg/dL Random Glucose (65-105) mg/dL Calcium (8.6-10.4) mg/dl Phosphorus (2.5-4.5) mg/dL Magnesium (1.6-2.3) mg/dL Total Bilirubin (0.2-1.3) mg/dL AST (14-36) U/L ALT (9-52) U/L Alkaline Phosphatase (38-126) U/L Troponin I (0.00-0.120) ng/mL Total Protein (6.3-8.3) g/dL Albumin (3.5-5.0) g/dL Globulin (2.2-3.9) gm/dL Albumin/Globulin Ratio (1.0-2.1) 07/16/17 07/16/17 07/16/17 Range/Units 06:15 06:15 05:12 WBC 7.8 (4.8-10.8) K/uL RBC 4.10 (3.80-5.20) Mil/uL Hgb 11.6 (11.0-16.0) g/dL Hct 35.3 (34.0-47.0) % MCV 86.0 (81.0-99.0) fL MCH 28.2 (27.0-31.0) pg MCHC 32.8 L (33.0-37.0) g/dL RDW 15.3 H (11.5-14.5) % Plt Count 321 (130-400) K/uL MPV 8.9 (7.2-11.7) fL Neut % (Auto) 73.7 (50.0-75.0) % Lymph % (Auto) 17.4 L (20.0-40.0) % [place] % (Auto) 8.8 (0.0-10.0) % Eos % (Auto) 0.0 (0.0-4.0) % Baso % (Auto) 0.1 (0.0-2.0) % Neut # 5.8 (1.8-7.0) K/uL Lymph # 1.4 (1.0-4.3) K/uL [place] # 0.7 (0.0-0.8) K/uL Eos # 0.0 (0.0-0.7) K/uL Baso # 0.0 (0.0-0.2) K/uL Puncture Site pCO2 (35-45) mm/Hg pO2 (80-100) mm/Hg HCO3 (21-28) mmol/L ABG pH (7.35-7.45) ABG Total CO2 (22-28) mmol/L ABG O2 Saturation (95-98) % ABG Base Excess (-2.0-3.0) mmol/L ABG Hemoglobin (11.7-17.4) g/dL ABG Carboxyhemoglobin (0.5-1.5) % POC ABG HHb (Measured) (0.0-5.0) % ABG Methemoglobin (0.0-3.0) % [place] Test A-a O2 Difference mm/Hg Respiratory Index Hgb O2 Saturation (95.0-98.0) % FiO2 % PEEP Pressure Support Sodium 134 (132-148) mmol/L Potassium 3.8 (3.6-5.2) mmol/L Chloride 96 L (98-107) mmol/L Carbon Dioxide 29 (22-30) mmol/L Anion Gap 13 (10-20) BUN 20 H (7-17) mg/dL Creatinine 0.7 (0.7-1.2) mg/dL Est GFR ( Amer) > 60 Est GFR (Non-Af Amer) > 60 POC Glucose (mg/dL) 166 H (65-110) mg/dL Random Glucose 131 H (65-105) mg/dL Calcium 7.7 L (8.6-10.4) mg/dl Phosphorus 3.5 (2.5-4.5) mg/dL Magnesium 2.0 (1.6-2.3) mg/dL Total Bilirubin 0.6 (0.2-1.3) mg/dL AST 14 (14-36) U/L ALT 24 (9-52) U/L Alkaline Phosphatase 67 (38-126) U/L Troponin I < 0.0120 (0.00-0.120) ng/mL Total Protein 6.4 (6.3-8.3) g/dL Albumin 3.6 (3.5-5.0) g/dL Globulin 2.8 (2.2-3.9) gm/dL Albumin/Globulin Ratio 1.3 (1.0-2.1) 07/15/17 07/15/17 07/15/17 Range/Units 22:44 17:37 17:30 WBC (4.8-10.8) K/uL RBC (3.80-5.20) Mil/uL Hgb (11.0-16.0) g/dL Hct (34.0-47.0) % MCV (81.0-99.0) fL MCH (27.0-31.0) pg MCHC (33.0-37.0) g/dL RDW (11.5-14.5) % Plt Count (130-400) K/uL MPV (7.2-11.7) fL Neut % (Auto) (50.0-75.0) % Lymph % (Auto) (20.0-40.0) % [place] % (Auto) (0.0-10.0) % Eos % (Auto) (0.0-4.0) % Baso % (Auto) (0.0-2.0) % Neut # (1.8-7.0) K/uL Lymph # (1.0-4.3) K/uL [place] # (0.0-0.8) K/uL Eos # (0.0-0.7) K/uL Baso # (0.0-0.2) K/uL Puncture Site Rra pCO2 47 H (35-45) mm/Hg pO2 72 L (80-100) mm/Hg HCO3 30.2 H (21-28) mmol/L ABG pH 7.44 (7.35-7.45) ABG Total CO2 33.3 H (22-28) mmol/L ABG O2 Saturation 97.2 (95-98) % ABG Base Excess 6.8 H (-2.0-3.0) mmol/L ABG Hemoglobin 11.6 L (11.7-17.4) g/dL ABG Carboxyhemoglobin 1.9 H (0.5-1.5) % POC ABG HHb (Measured) 2.7 (0.0-5.0) % ABG Methemoglobin 0.9 (0.0-3.0) % [place] Test Na A-a O2 Difference 119.0 mm/Hg Respiratory Index 1.7 Hgb O2 Saturation 94.5 L (95.0-98.0) % FiO2 35.0 % PEEP 5 Pressure Support 12 Sodium (132-148) mmol/L Potassium (3.6-5.2) mmol/L Chloride (98-107) mmol/L Carbon Dioxide (22-30) mmol/L Anion Gap (10-20) BUN (7-17) mg/dL Creatinine (0.7-1.2) mg/dL Est GFR ( Amer) Est GFR (Non-Af Amer) POC Glucose (mg/dL) 150 H 148 H (65-110) mg/dL Random Glucose (65-105) mg/dL Calcium (8.6-10.4) mg/dl Phosphorus (2.5-4.5) mg/dL Magnesium (1.6-2.3) mg/dL Total Bilirubin (0.2-1.3) mg/dL AST (14-36) U/L ALT (9-52) U/L Alkaline Phosphatase (38-126) U/L Troponin I (0.00-0.120) ng/mL Total Protein (6.3-8.3) g/dL Albumin (3.5-5.0) g/dL Globulin (2.2-3.9) gm/dL Albumin/Globulin Ratio (1.0-2.1) Laboratory Results - last 24 hr 07/15/17 07/15/17 07/15/17 17:30 17:37 22:44 WBC RBC Hgb Hct MCV MCH MCHC RDW Plt Count MPV Neut % (Auto) Lymph % (Auto) [place] % (Auto) Eos % (Auto) Baso % (Auto) Neut # Lymph # [place] # Eos # Baso # Puncture Site Rra pCO2 47 H pO2 72 L HCO3 30.2 H ABG pH 7.44 ABG Total CO2 33.3 H ABG O2 Saturation 97.2 ABG Base Excess 6.8 H ABG Hemoglobin 11.6 L ABG Carboxyhemoglobin 1.9 H POC ABG HHb (Measured) 2.7 ABG Methemoglobin 0.9 [place] Test Na A-a O2 Difference 119.0 Respiratory Index 1.7 Hgb O2 Saturation 94.5 L FiO2 35.0 PEEP 5 Pressure Support 12 Sodium Potassium Chloride Carbon Dioxide Anion Gap BUN Creatinine Est GFR ( Amer) Est GFR (Non-Af Amer) POC Glucose (mg/dL) 148 H 150 H Random Glucose Calcium Phosphorus Magnesium Total Bilirubin AST ALT Alkaline Phosphatase Troponin I Total Protein Albumin Globulin Albumin/Globulin Ratio 07/16/17 07/16/17 07/16/17 05:12 06:15 06:15 WBC 7.8 RBC 4.10 Hgb 11.6 Hct 35.3 MCV 86.0 MCH 28.2 MCHC 32.8 L RDW 15.3 H Plt Count 321 MPV 8.9 Neut % (Auto) 73.7 Lymph % (Auto) 17.4 L [place] % (Auto) 8.8 Eos % (Auto) 0.0 Baso % (Auto) 0.1 Neut # 5.8 Lymph # 1.4 [place] # 0.7 Eos # 0.0 Baso # 0.0 Puncture Site pCO2 pO2 HCO3 ABG pH ABG Total CO2 ABG O2 Saturation ABG Base Excess ABG Hemoglobin ABG Carboxyhemoglobin POC ABG HHb (Measured) ABG Methemoglobin [place] Test A-a O2 Difference Respiratory Index Hgb O2 Saturation FiO2 PEEP Pressure Support Sodium 134 Potassium 3.8 Chloride 96 L Carbon Dioxide 29 Anion Gap 13 BUN 20 H Creatinine 0.7 Est GFR ( Amer) > 60 Est GFR (Non-Af Amer) > 60 POC Glucose (mg/dL) 166 H Random Glucose 131 H Calcium 7.7 L Phosphorus 3.5 Magnesium 2.0 Total Bilirubin 0.6 AST 14 ALT 24 Alkaline Phosphatase 67 Troponin I < 0.0120 Total Protein 6.4 Albumin 3.6 Globulin 2.8 Albumin/Globulin Ratio 1.3 07/16/17 07/16/17 07/16/17 07:12 11:20 16:08 WBC RBC Hgb Hct MCV MCH MCHC RDW Plt Count MPV Neut % (Auto) Lymph % (Auto) [place] % (Auto) Eos % (Auto) Baso % (Auto) Neut # Lymph # [place] # Eos # Baso # Puncture Site pCO2 pO2 HCO3 ABG pH ABG Total CO2 ABG O2 Saturation ABG Base Excess ABG Hemoglobin ABG Carboxyhemoglobin POC ABG HHb (Measured) ABG Methemoglobin [place] Test A-a O2 Difference Respiratory Index Hgb O2 Saturation FiO2 PEEP Pressure Support Sodium Potassium Chloride Carbon Dioxide Anion Gap BUN Creatinine Est GFR ( Amer) Est GFR (Non-Af Amer) POC Glucose (mg/dL) 136 H 194 H 178 H Random Glucose Calcium Phosphorus Magnesium Total Bilirubin AST ALT Alkaline Phosphatase Troponin I Total Protein Albumin Globulin Albumin/Globulin Ratio Fingerstick Blood Sugar Results: 194 Review of Systems - Review of Systems All systems: reviewed and no additional remarkable complaints except (as per HPI ) Critical Care Progress Note - Nutrition Nutrition: Nutrition Category Date Time Status Consistent Carbohydrate [DIET] Diets 07/16/17 Lunch Active Assessment/Plan - Assessment and Plan (Free Text) Assessment: 72 year old female with PMH of COPD and DM presents with hypercapneic respiratory failure, intubated in the ED. Patient extubated yesterday, currently on BiPAP. Plan: Respiratory: Extubated. BiPAP setting on 03/04 on FiO2 35% CXR 07/16 - Little interval change in left lower lobe consolidation and left pleural effusion. Duonebs 3ml RQ6 Solumedrol 40 mg IVP Q8H Singulair 10mg PO daily Neuro: Head CT 07/14 - No definite acute intracranial abnormality. Acute infarction may be CT occult within first 24 hours. If a focal deficit persists, consider follow up CT or MRI for further evaluation. Sinus disease. Mastoid disease. Propofol drip - discontinued Home meds - Cymbalta, Neurotin ID: Urine Culture - Providencia Stuartii - susceptible to Aztreonam Blood Culture - Gram Positive Cocci x 1; negative x1 @ 48 hours Sputum Culture - negative Aztreonam 1gm IVPB Q8H Avelox 400mg PO daily CV: Coreg 25mg PO BID Vasotec 5mg PO daily Prophylactic Care: Heparin 5000u SC Q8H Protonix 40mg IVP Q12H ISS Synthroid 150mcg PO daily Colace 200mg PO HS Case discussed with Dr. Ousmane Rondon <Johan Romeo S - Last Filed: 07/17/17 17:42> CCU Objective - Vital Signs / Intake & Output Vital Signs (Last 4 hours): Vital Signs Temp Pulse Resp BP Pulse Ox 07/17/17 16:00 98.5 F 62 22 100 07/17/17 15:38 68 20 165/90 H 07/17/17 15:23 63 23 179/83 H 07/17/17 15:00 66 22 07/17/17 14:23 67 24 168/89 H 07/17/17 13:57 69 Intake and Output (Last 8hrs): Intake & Output 07/17/17 07/17/17 07/17/17 06:59 14:59 22:59 Intake Total 50 600 Output Total 700 700 500 Balance -650 -100 -500 Weight 321 lb 13.998 oz Intake: Intake, IV Amount 50 50 RF TLC Proximal 50 50 Oral 0 550 Output: Urine 700 700 500 Urine, Voided 700 700 500 - Medications Active Medications: Active Medications Generic Name Dose Route Start Last Admin Trade Name Freq PRN Reason Stop Dose Admin Albuterol/Ipratropium 3 ml 07/14/17 08:00 07/17/17 13:57 Duoneb 3 Mg/0.5 Mg (3 Ml) Ud INH 3 ml RQ6 TIMOTEO Administration Carvedilol 25 mg 07/14/17 18:00 07/17/17 09:18 Coreg PO 25 mg BID TIMOTEO Administration Docusate Sodium 200 mg 07/14/17 22:00 07/16/17 21:58 Colace PO 200 mg HS TIMOTEO Administration Duloxetine HCl 30 mg 07/14/17 18:00 07/17/17 09:19 Cymbalta PO 30 mg BID TIMOTEO Administration Enalapril Maleate 5 mg 07/15/17 10:00 07/17/17 09:20 Vasotec PO 5 mg DAILY TIMOTEO Administration Gabapentin 300 mg 07/14/17 18:00 07/17/17 09:19 Neurontin PO 300 mg BID TIMOTEO Administration Heparin Sodium (Porcine) 5,000 units 07/14/17 06:00 07/17/17 13:55 Heparin SC 5,000 units Q8 TIMOTEO Administration Aztreonam 1 gm/ Sodium 100 mls @ 200 mls/hr 07/17/17 22:45 Chloride IVPB Q8H TIMOTEO Insulin Aspart 0 unit 07/15/17 22:00 07/17/17 17:00 Novolog SC 2 unit ACHS TIMOTEO Administration Protocol Levothyroxine Sodium 150 mcg 07/15/17 10:00 07/17/17 09:20 Synthroid PO 150 mcg DAILY TIMOTEO Administration Methylprednisolone 40 mg 07/14/17 06:00 07/17/17 13:55 Solu-Medrol IVP 40 mg Q8 TIMOTEO Administration Montelukast Sodium 10 mg 07/15/17 10:00 07/17/17 09:19 Singulair PO 10 mg DAILY TIMOTEO Administration Moxifloxacin HCl 400 mg 07/16/17 10:00 07/17/17 09:17 Avelox PO 400 mg DAILY TIMOTEO Administration Pantoprazole Sodium 40 mg 07/14/17 03:30 07/17/17 15:45 Protonix Inj IVP 40 mg Q12H TIMOTEO Administration - Patient Studies Lab Studies: Microbiology Studies 07/14/17 01:30 Blood Culture - Preliminary Blood NO GROWTH AFTER 3 DAYS 07/14/17 01:00 S.aureus & Coag-Neg Staph PNA FISH - Final Blood Blood Culture - Final Coagulase Neg Staphylococcus Gram Stain - Final Lab Studies 07/17/17 07/17/17 07/17/17 Range/Units 16:20 11:50 07:27 WBC (4.8-10.8) K/uL RBC (3.80-5.20) Mil/uL Hgb (11.0-16.0) g/dL Hct (34.0-47.0) % MCV (81.0-99.0) fL MCH (27.0-31.0) pg MCHC (33.0-37.0) g/dL RDW (11.5-14.5) % Plt Count (130-400) K/uL MPV (7.2-11.7) fL Neut % (Auto) (50.0-75.0) % Lymph % (Auto) (20.0-40.0) % [place] % (Auto) (0.0-10.0) % Eos % (Auto) (0.0-4.0) % Baso % (Auto) (0.0-2.0) % Neut # (1.8-7.0) K/uL Lymph # (1.0-4.3) K/uL [place] # (0.0-0.8) K/uL Eos # (0.0-0.7) K/uL Baso # (0.0-0.2) K/uL Sodium (132-148) mmol/L Potassium (3.6-5.2) mmol/L Chloride (98-107) mmol/L Carbon Dioxide (22-30) mmol/L Anion Gap (10-20) BUN (7-17) mg/dL Creatinine (0.7-1.2) mg/dL Est GFR ( Amer) Est GFR (Non-Af Amer) POC Glucose (mg/dL) 164 H 239 H 120 H (65-110) mg/dL Random Glucose (65-105) mg/dL Calcium (8.6-10.4) mg/dl Phosphorus (2.5-4.5) mg/dL Magnesium (1.6-2.3) mg/dL Total Bilirubin (0.2-1.3) mg/dL AST (14-36) U/L ALT (9-52) U/L Alkaline Phosphatase (38-126) U/L Total Protein (6.3-8.3) g/dL Albumin (3.5-5.0) g/dL Globulin (2.2-3.9) gm/dL Albumin/Globulin Ratio (1.0-2.1) 07/17/17 07/17/17 07/16/17 Range/Units 06:29 06:29 21:34 WBC 7.7 (4.8-10.8) K/uL RBC 4.20 (3.80-5.20) Mil/uL Hgb 11.5 (11.0-16.0) g/dL Hct 36.3 (34.0-47.0) % MCV 86.6 (81.0-99.0) fL MCH 27.3 (27.0-31.0) pg MCHC 31.5 L (33.0-37.0) g/dL RDW 15.5 H (11.5-14.5) % Plt Count 332 (130-400) K/uL MPV 8.9 (7.2-11.7) fL Neut % (Auto) 71.6 (50.0-75.0) % Lymph % (Auto) 19.3 L (20.0-40.0) % [place] % (Auto) 8.9 (0.0-10.0) % Eos % (Auto) 0.0 (0.0-4.0) % Baso % (Auto) 0.2 (0.0-2.0) % Neut # 5.5 (1.8-7.0) K/uL Lymph # 1.5 (1.0-4.3) K/uL [place] # 0.7 (0.0-0.8) K/uL Eos # 0.0 (0.0-0.7) K/uL Baso # 0.0 (0.0-0.2) K/uL Sodium 133 (132-148) mmol/L Potassium 4.1 (3.6-5.2) mmol/L Chloride 96 L (98-107) mmol/L Carbon Dioxide 30 (22-30) mmol/L Anion Gap 11 (10-20) BUN 23 H (7-17) mg/dL Creatinine 0.8 (0.7-1.2) mg/dL Est GFR ( Amer) > 60 Est GFR (Non-Af Amer) > 60 POC Glucose (mg/dL) 173 H (65-110) mg/dL Random Glucose 125 H (65-105) mg/dL Calcium 7.5 L (8.6-10.4) mg/dl Phosphorus 2.8 (2.5-4.5) mg/dL Magnesium 2.0 (1.6-2.3) mg/dL Total Bilirubin 0.3 (0.2-1.3) mg/dL AST 12 L (14-36) U/L ALT 30 (9-52) U/L Alkaline Phosphatase 61 (38-126) U/L Total Protein 7.3 (6.3-8.3) g/dL Albumin 3.6 (3.5-5.0) g/dL Globulin 3.7 (2.2-3.9) gm/dL Albumin/Globulin Ratio 1.0 (1.0-2.1) Laboratory Results - last 24 hr 07/16/17 07/17/17 07/17/17 21:34 06:29 06:29 WBC 7.7 RBC 4.20 Hgb 11.5 Hct 36.3 MCV 86.6 MCH 27.3 MCHC 31.5 L RDW 15.5 H Plt Count 332 MPV 8.9 Neut % (Auto) 71.6 Lymph % (Auto) 19.3 L [place] % (Auto) 8.9 Eos % (Auto) 0.0 Baso % (Auto) 0.2 Neut # 5.5 Lymph # 1.5 [place] # 0.7 Eos # 0.0 Baso # 0.0 Sodium 133 Potassium 4.1 Chloride 96 L Carbon Dioxide 30 Anion Gap 11 BUN 23 H Creatinine 0.8 Est GFR ( Amer) > 60 Est GFR (Non-Af Amer) > 60 POC Glucose (mg/dL) 173 H Random Glucose 125 H Calcium 7.5 L Phosphorus 2.8 Magnesium 2.0 Total Bilirubin 0.3 AST 12 L ALT 30 Alkaline Phosphatase 61 Total Protein 7.3 Albumin 3.6 Globulin 3.7 Albumin/Globulin Ratio 1.0 07/17/17 07/17/17 07/17/17 07:27 11:50 16:20 WBC RBC Hgb Hct MCV MCH MCHC RDW Plt Count MPV Neut % (Auto) Lymph % (Auto) [place] % (Auto) Eos % (Auto) Baso % (Auto) Neut # Lymph # [place] # Eos # Baso # Sodium Potassium Chloride Carbon Dioxide Anion Gap BUN Creatinine Est GFR ( Amer) Est GFR (Non-Af Amer) POC Glucose (mg/dL) 120 H 239 H 164 H Random Glucose Calcium Phosphorus Magnesium Total Bilirubin AST ALT Alkaline Phosphatase Total Protein Albumin Globulin Albumin/Globulin Ratio Critical Care Progress Note - Nutrition Nutrition: Nutrition Category Date Time Status Consistent Carbohydrate [DIET] Diets 07/16/17 Lunch Active Attending/Attestation - Attestation I have personally seen and examined this patient.: Yes I have fully participated in the care of the patient.: Yes I have reviewed all pertinent clinical information: Yes Notes (Text): Patient seen and examined in the intensive care unit. 72 year old female with PMH of COPD and DM presents with hypercapneic respiratory failure, intubated in the ED. Patient extubated yesterday, currently on BiPAP. Continue steroids, nebulizer treatment and antibiotics Follow-up ABG and chest x-ray
[2017-07-17] MEDS: Albuterol-Ipratrop 3 mg / 0.5 (3 ml) UD INH SCH ×4 (01:04→20:34)
[2017-07-17 06:36] LABS: BASO % 0.2 % (0.0-2.0); HEMATOCRIT 36.3 % (34.0-47.0); LYMPH # 1.5 K/uL (1.0-4.3); LYMPH % 19.3 % (20.0-40.0); MEAN CELL VOLUME 86.6 fL (81.0-99.0); MEAN CORPUSCULAR HEMOGLOBIN 27.3 pg (27.0-31.0); MEAN CORPUSCULAR HGB CONC 31.5 g/dL (33.0-37.0); MEAN PLATELET VOLUME 8.9 fL (7.2-11.7); MONO # 0.7 K/uL (0.0-0.8); MONO % 8.9 % (0.0-10.0); NRBC % 0.1 % (0.0-2.0); RED CELL DISTRIBUTION WIDTH 15.5 % (11.5-14.5); WHITE BLOOD COUNT 7.7 K/uL (4.8-10.8)
[2017-07-17] MEDS: MethylPREDNISolone 40 mg Vial IVP SCH ×3 (06:57→21:44)
[2017-07-17 07:15] LABS: ALKALINE PHOSPHATASE 61 U/L (38-126); ALT/SGPT 30 U/L (9-52); AST/SGOT 12 U/L (14-36); BILIRUBIN,TOTAL 0.3 mg/dL (0.2-1.3); BLOOD UREA NITROGEN 23 mg/dL (7-17); CALCIUM 7.5 mg/dl (8.6-10.4); CARBON DIOXIDE 30 mmol/L (22-30); CHLORIDE 96 mmol/L (98-107); GFR AFRICAN-AMERICAN > 60; GLUCOSE,RANDOM 125 mg/dL (65-105); PHOSPHOROUS 2.8 mg/dL (2.5-4.5); POTASSIUM 4.1 mmol/L (3.6-5.2); SODIUM 133 mmol/L (132-148); TOTAL PROTEIN 7.3 g/dL (6.3-8.3)
[2017-07-17] MEDS: (Novolog) Insulin Aspart, Recombinant 100 u/ml 10 ml vial SC SCH ×4 (08:42→21:43)
[2017-07-17] MEDS: Levothyroxine 150 MCG TAB PO SCH (09:20)
--- NOTE | 2017-07-17 12:19 | RAD ---
PROCEDURE: CHEST RADIOGRAPH, 1 VIEW HISTORY: s/p picc line insertion COMPARISON: 07/16/2017 FINDINGS: LUNGS: Examination limited due to portable technique and oblique positioning of the patient. No infiltrate identified. Previously described left lower lobe consolidation is not clearly evident. PLEURA: No pneumothorax or pleural fluid seen. CARDIOVASCULAR: Normal. OSSEOUS STRUCTURES: No significant abnormalities. VISUALIZED UPPER ABDOMEN: Normal. OTHER FINDINGS: None. IMPRESSION: No active disease.
--- NOTE | 2017-07-17 14:00 | CP.CCUPN ---
<Mario Rondon - Last Filed: 07/17/17 13:58> CCU Subjective - Physician Review Subjective (Free Text): PGY1 ICU Progress Note for Dr. Romeo Patient seen and examined at bedside this morning. Patient is laying in bed, eating breakfast with oxygen delivered by [place]. Patient states she is feeling much better. She has a sore throat but she remembers this as being similar from the last time she was intubated. Patient has no complaints at this time. CCU Objective - Vital Signs / Intake & Output Vital Signs (Last 4 hours): Vital Signs Temp Pulse Resp BP Pulse Ox 07/17/17 13:26 80 16 174/138 H 07/17/17 13:00 78 17 07/17/17 12:23 70 15 170/80 H 07/17/17 12:00 98.7 F 70 17 07/17/17 11:23 69 14 164/79 H 80 L 07/17/17 11:00 70 17 100 07/17/17 10:23 72 18 158/77 H Intake and Output (Last 8hrs): Intake & Output 07/16/17 07/17/17 07/17/17 22:59 06:59 14:59 Intake Total 450 50 200 Output Total 300 700 700 Balance 150 -650 -500 Weight 321 lb 13.998 oz Intake: Intake, IV Amount 50 50 0 RF TLC Proximal 50 50 0 Oral 400 0 200 Output: Urine 300 700 700 Urine, Voided 300 700 700 - Physical Exam Head: Positive for: Atraumatic, Normocephalic Mouth: Positive for: Moist Mucous Membranes Respiratory/Chest: Positive for: Clear to Auscultation, Decreased Breath Sounds (obese). Negative for: Accessory Muscle Use Cardiovascular: Positive for: Regular Rate and Rhythm Abdomen: Positive for: Other (obese). Negative for: Tenderness, Distention Upper Extremity: Negative for: Edema Lower Extremity: Positive for: Edema Neurological: Positive for: Motor Func Grossly Intact. Negative for: Speech Normal (mildly SOB - patient states that this is her baseline) Skin: Positive for: Warm, Dry Psychiatric: Positive for: Alert, Oriented x 3 - Medications Active Medications: Active Medications Generic Name Dose Route Start Last Admin Trade Name Freq PRN Reason Stop Dose Admin Albuterol/Ipratropium 3 ml 07/14/17 08:00 07/17/17 13:57 Duoneb 3 Mg/0.5 Mg (3 Ml) Ud INH 3 ml RQ6 TIMOETO Administration Carvedilol 25 mg 07/14/17 18:00 07/17/17 09:18 Coreg PO 25 mg BID TIMOTEO Administration Docusate Sodium 200 mg 07/14/17 22:00 07/16/17 21:58 Colace PO 200 mg HS TIMOTEO Administration Duloxetine HCl 30 mg 07/14/17 18:00 07/17/17 09:19 Cymbalta PO 30 mg BID TIMOTEO Administration Enalapril Maleate 5 mg 07/15/17 10:00 07/17/17 09:20 Vasotec PO 5 mg DAILY TIMOTEO Administration Gabapentin 300 mg 07/14/17 18:00 07/17/17 09:19 Neurontin PO 300 mg BID TIMOTEO Administration Heparin Sodium (Porcine) 5,000 units 07/14/17 06:00 07/17/17 06:56 Heparin SC 5,000 units Q8 TIMOTEO Administration Aztreonam 1 gm/ Sodium 50 mls @ 200 mls/hr 07/14/17 06:45 07/17/17 06:00 Chloride IVPB 200 mls/hr Q8H TIMOTEO Administration Insulin Aspart 0 unit 07/15/17 22:00 07/17/17 11:58 Novolog SC 3 unit ACHS TIMOTEO Administration Protocol Levothyroxine Sodium 150 mcg 07/15/17 10:00 07/17/17 09:20 Synthroid PO 150 mcg DAILY TIMOTEO Administration Methylprednisolone 40 mg 07/14/17 06:00 07/17/17 06:57 Solu-Medrol IVP 40 mg Q8 TIMOTEO Administration Montelukast Sodium 10 mg 07/15/17 10:00 07/17/17 09:19 Singulair PO 10 mg DAILY TIMOTEO Administration Moxifloxacin HCl 400 mg 07/16/17 10:00 07/17/17 09:17 Avelox PO 400 mg DAILY TIMOTEO Administration Pantoprazole Sodium 40 mg 07/14/17 03:30 07/17/17 04:30 Protonix Inj IVP 40 mg Q12H TIMOTEO Administration - Patient Studies Lab Studies: Microbiology Studies 07/14/17 01:30 Blood Culture - Preliminary Blood NO GROWTH AFTER 3 DAYS 07/14/17 01:00 S.aureus & Coag-Neg Staph PNA FISH - Final Blood Blood Culture - Final Coagulase Neg Staphylococcus Gram Stain - Final 07/14/17 05:41 Gram Stain - Final Trachasp Sputum Culture - Final NORMAL ORAL BREANNA 07/14/17 04:16 MRSA Culture (Admit) - Final Nose Lab Studies 07/17/17 07/17/17 07/17/17 Range/Units 07:27 06:29 06:29 WBC 7.7 (4.8-10.8) K/uL RBC 4.20 (3.80-5.20) Mil/uL Hgb 11.5 (11.0-16.0) g/dL Hct 36.3 (34.0-47.0) % MCV 86.6 (81.0-99.0) fL MCH 27.3 (27.0-31.0) pg MCHC 31.5 L (33.0-37.0) g/dL RDW 15.5 H (11.5-14.5) % Plt Count 332 (130-400) K/uL MPV 8.9 (7.2-11.7) fL Neut % (Auto) 71.6 (50.0-75.0) % Lymph % (Auto) 19.3 L (20.0-40.0) % [place] % (Auto) 8.9 (0.0-10.0) % Eos % (Auto) 0.0 (0.0-4.0) % Baso % (Auto) 0.2 (0.0-2.0) % Neut # 5.5 (1.8-7.0) K/uL Lymph # 1.5 (1.0-4.3) K/uL [place] # 0.7 (0.0-0.8) K/uL Eos # 0.0 (0.0-0.7) K/uL Baso # 0.0 (0.0-0.2) K/uL Sodium 133 (132-148) mmol/L Potassium 4.1 (3.6-5.2) mmol/L Chloride 96 L (98-107) mmol/L Carbon Dioxide 30 (22-30) mmol/L Anion Gap 11 (10-20) BUN 23 H (7-17) mg/dL Creatinine 0.8 (0.7-1.2) mg/dL Est GFR ( Amer) > 60 Est GFR (Non-Af Amer) > 60 POC Glucose (mg/dL) 120 H (65-110) mg/dL Random Glucose 125 H (65-105) mg/dL Calcium 7.5 L (8.6-10.4) mg/dl Phosphorus 2.8 (2.5-4.5) mg/dL Magnesium 2.0 (1.6-2.3) mg/dL Total Bilirubin 0.3 (0.2-1.3) mg/dL AST 12 L (14-36) U/L ALT 30 (9-52) U/L Alkaline Phosphatase 61 (38-126) U/L Total Protein 7.3 (6.3-8.3) g/dL Albumin 3.6 (3.5-5.0) g/dL Globulin 3.7 (2.2-3.9) gm/dL Albumin/Globulin Ratio 1.0 (1.0-2.1) 07/16/17 07/16/17 Range/Units 21:34 16:08 WBC (4.8-10.8) K/uL RBC (3.80-5.20) Mil/uL Hgb (11.0-16.0) g/dL Hct (34.0-47.0) % MCV (81.0-99.0) fL MCH (27.0-31.0) pg MCHC (33.0-37.0) g/dL RDW (11.5-14.5) % Plt Count (130-400) K/uL MPV (7.2-11.7) fL Neut % (Auto) (50.0-75.0) % Lymph % (Auto) (20.0-40.0) % [place] % (Auto) (0.0-10.0) % Eos % (Auto) (0.0-4.0) % Baso % (Auto) (0.0-2.0) % Neut # (1.8-7.0) K/uL Lymph # (1.0-4.3) K/uL [place] # (0.0-0.8) K/uL Eos # (0.0-0.7) K/uL Baso # (0.0-0.2) K/uL Sodium (132-148) mmol/L Potassium (3.6-5.2) mmol/L Chloride (98-107) mmol/L Carbon Dioxide (22-30) mmol/L Anion Gap (10-20) BUN (7-17) mg/dL Creatinine (0.7-1.2) mg/dL Est GFR ( Amer) Est GFR (Non-Af Amer) POC Glucose (mg/dL) 173 H 178 H (65-110) mg/dL Random Glucose (65-105) mg/dL Calcium (8.6-10.4) mg/dl Phosphorus (2.5-4.5) mg/dL Magnesium (1.6-2.3) mg/dL Total Bilirubin (0.2-1.3) mg/dL AST (14-36) U/L ALT (9-52) U/L Alkaline Phosphatase (38-126) U/L Total Protein (6.3-8.3) g/dL Albumin (3.5-5.0) g/dL Globulin (2.2-3.9) gm/dL Albumin/Globulin Ratio (1.0-2.1) Laboratory Results - last 24 hr 07/16/17 07/16/17 07/17/17 16:08 21:34 06:29 WBC 7.7 RBC 4.20 Hgb 11.5 Hct 36.3 MCV 86.6 MCH 27.3 MCHC 31.5 L RDW 15.5 H Plt Count 332 MPV 8.9 Neut % (Auto) 71.6 Lymph % (Auto) 19.[address] [place] % (Auto) 8.9 Eos % (Auto) 0.0 Baso % (Auto) 0.2 Neut # 5.5 Lymph # 1.5 [place] # 0.7 Eos # 0.0 Baso # 0.0 Sodium Potassium Chloride Carbon Dioxide Anion Gap BUN Creatinine Est GFR ( Amer) Est GFR (Non-Af Amer) POC Glucose (mg/dL) 178 H 173 H Random Glucose Calcium Phosphorus Magnesium Total Bilirubin AST ALT Alkaline Phosphatase Total Protein Albumin Globulin Albumin/Globulin Ratio 07/17/17 07/17/17 06:29 07:27 WBC RBC Hgb Hct MCV MCH MCHC RDW Plt Count MPV Neut % (Auto) Lymph % (Auto) [place] % (Auto) Eos % (Auto) Baso % (Auto) Neut # Lymph # [place] # Eos # Baso # Sodium 133 Potassium 4.1 Chloride 96 L Carbon Dioxide 30 Anion Gap 11 BUN 23 H Creatinine 0.8 Est GFR ( Amer) > 60 Est GFR (Non-Af Amer) > 60 POC Glucose (mg/dL) 120 H Random Glucose 125 H Calcium 7.5 L Phosphorus 2.8 Magnesium 2.0 Total Bilirubin 0.3 AST 12 L ALT 30 Alkaline Phosphatase 61 Total Protein 7.3 Albumin 3.6 Globulin 3.7 Albumin/Globulin Ratio 1.0 Fingerstick Blood Sugar Results: 239 Review of Systems - Review of Systems All systems: reviewed and no additional remarkable complaints except (as per HPI ) Critical Care Progress Note - Nutrition Nutrition: Nutrition Category Date Time Status Consistent Carbohydrate [DIET] Diets 07/16/17 Lunch Active Assessment/Plan - Assessment and Plan (Free Text) Assessment: 72 year old female with PMH of COPD and DM presents with hypercapneic respiratory failure and sepsis Plan: Respiratory: Extubated. BiPAP setting on 03/04 on FiO2 35% CXR 07/17 - No active disease. Duonebs 3ml RQ6 Solumedrol 40 mg IVP Q8H Singulair 10mg PO daily Neuro: Head CT 07/14 - No definite acute intracranial abnormality. Acute infarction may be CT occult within first 24 hours. If a focal deficit persists, consider follow up CT or MRI for further evaluation. Sinus disease. Mastoid disease. Home meds - [place] Neurontin ID: Sepsis WBC 7.7 Urine Culture - Providencia Stuartii - susceptible to Aztreonam Blood Culture - Coag Neg Staph x 1 (believed to be contamination) ; negative x1 @ 48 hours Sputum Culture - negative Aztreonam 1gm IVPB Q8H Avelox 400mg PO daily CV: Coreg 25mg PO BID Vasotec 5mg PO daily Prophylactic Care: Heparin 5000u SC Q8H Protonix 40mg IVP Q12H ISS Synthroid 150mcg PO daily Colace 200mg PO HS Case discussed with Dr. Ousmane Rondon <Johan Romeo - Last Filed: 07/17/17 17:43> CCU Objective - Vital Signs / Intake & Output Vital Signs (Last 4 hours): Vital Signs Temp Pulse Resp BP Pulse Ox 07/17/17 16:00 98.5 F 62 22 100 07/17/17 15:38 68 20 165/90 H 07/17/17 15:23 63 23 179/83 H 07/17/17 15:00 66 22 07/17/17 14:23 67 24 168/89 H 07/17/17 13:57 69 Intake and Output (Last 8hrs): Intake & Output 07/17/17 07/17/17 07/17/17 06:59 14:59 22:59 Intake Total 50 600 Output Total 700 700 500 Balance -650 -100 -500 Weight 321 lb 13.998 oz Intake: Intake, IV Amount 50 50 RF TLC Proximal 50 50 Oral 0 550 Output: Urine 700 700 500 Urine, Voided 700 700 500 - Medications Active Medications: Active Medications Generic Name Dose Route Start Last Admin Trade Name Ruddyq PRN Reason Stop Dose Admin Albuterol/Ipratropium 3 ml 07/14/17 08:00 07/17/17 13:57 Duoneb 3 Mg/0.5 Mg (3 Ml) Ud INH 3 ml RQ6 TIMOTEO Administration Carvedilol 25 mg 07/14/17 18:00 07/17/17 09:18 Coreg PO 25 mg BID TIMOTEO Administration Docusate Sodium 200 mg 07/14/17 22:00 07/16/17 21:58 Colace PO 200 mg HS TIMOTEO Administration Duloxetine HCl 30 mg 07/14/17 18:00 07/17/17 09:19 Cymbalta PO 30 mg BID TIMOTEO Administration Enalapril Maleate 5 mg 07/15/17 10:00 07/17/17 09:20 Vasotec PO 5 mg DAILY TIMOTEO Administration Gabapentin 300 mg 07/14/17 18:00 07/17/17 09:19 Neurontin PO 300 mg BID TIMOTEO Administration Heparin Sodium (Porcine) 5,000 units 07/14/17 06:00 07/17/17 13:55 Heparin SC 5,000 units Q8 TIMOTEO Administration Aztreonam 1 gm/ Sodium 100 mls @ 200 mls/hr 07/17/17 22:45 Chloride IVPB Q8H [facility] Insulin Aspart 0 unit 07/15/17 22:00 07/17/17 17:00 Novolog SC 2 unit ACHS TIMOTEO Administration Protocol Levothyroxine Sodium 150 mcg 07/15/17 10:00 07/17/17 09:20 Synthroid PO 150 mcg DAILY TIMOTEO Administration Methylprednisolone 40 mg 07/14/17 06:00 07/17/17 13:55 Solu-Medrol IVP 40 mg Q8 TIMOTEO Administration Montelukast Sodium 10 mg 07/15/17 10:00 07/17/17 09:19 Singulair PO 10 mg DAILY TIMOTEO Administration Moxifloxacin HCl 400 mg 07/16/17 10:00 07/17/17 09:17 Avelox PO 400 mg DAILY TIMOTEO Administration Pantoprazole Sodium 40 mg 07/14/17 03:30 07/17/17 15:45 Protonix Inj IVP 40 mg Q12H TIMOTEO Administration - Patient Studies Lab Studies: Microbiology Studies 07/14/17 01:30 Blood Culture - Preliminary Blood NO GROWTH AFTER 3 DAYS 07/14/17 01:00 S.aureus & Coag-Neg Staph PNA FISH - Final Blood Blood Culture - Final Coagulase Neg Staphylococcus Gram Stain - Final Lab Studies 07/17/17 07/17/17 07/17/17 Range/Units 16:20 11:50 07:27 WBC (4.8-10.8) K/uL RBC (3.80-5.20) Mil/uL Hgb (11.0-16.0) g/dL Hct (34.0-47.0) % MCV (81.0-99.0) fL MCH (27.0-31.0) pg MCHC (33.0-37.0) g/dL RDW (11.5-14.5) % Plt Count (130-400) K/uL MPV (7.2-11.7) fL Neut % (Auto) (50.0-75.0) % Lymph % (Auto) (20.0-40.0) % [place] % (Auto) (0.0-10.0) % Eos % (Auto) (0.0-4.0) % Baso % (Auto) (0.0-2.0) % Neut # (1.8-7.0) K/uL Lymph # (1.0-4.3) K/uL [place] # (0.0-0.8) K/uL Eos # (0.0-0.7) K/uL Baso # (0.0-0.2) K/uL Sodium (132-148) mmol/L Potassium (3.6-5.2) mmol/L Chloride (98-107) mmol/L Carbon Dioxide (22-30) mmol/L Anion Gap (10-20) BUN (7-17) mg/dL Creatinine (0.7-1.2) mg/dL Est GFR ( Amer) Est GFR (Non-Af Amer) POC Glucose (mg/dL) 164 H 239 H 120 H (65-110) mg/dL Random Glucose (65-105) mg/dL Calcium (8.6-10.4) mg/dl Phosphorus (2.5-4.5) mg/dL Magnesium (1.6-2.3) mg/dL Total Bilirubin (0.2-1.3) mg/dL AST (14-36) U/L ALT (9-52) U/L Alkaline Phosphatase (38-126) U/L Total Protein (6.3-8.3) g/dL Albumin (3.5-5.0) g/dL Globulin (2.2-3.9) gm/dL Albumin/Globulin Ratio (1.0-2.1) 07/17/17 07/17/17 07/16/17 Range/Units 06:29 06:29 21:34 WBC 7.7 (4.8-10.8) K/uL RBC 4.20 (3.80-5.20) Mil/uL Hgb 11.5 (11.0-16.0) g/dL Hct 36.3 (34.0-47.0) % MCV 86.6 (81.0-99.0) fL MCH 27.3 (27.0-31.0) pg MCHC 31.5 L (33.0-37.0) g/dL RDW 15.5 H (11.5-14.5) % Plt Count 332 (130-400) K/uL MPV 8.9 (7.2-11.7) fL Neut % (Auto) 71.6 (50.0-75.0) % Lymph % (Auto) 19.3 L (20.0-40.0) % [place] % (Auto) 8.9 (0.0-10.0) % Eos % (Auto) 0.0 (0.0-4.0) % Baso % (Auto) 0.2 (0.0-2.0) % Neut # 5.5 (1.8-7.0) K/uL Lymph # 1.5 (1.0-4.3) K/uL [place] # 0.7 (0.0-0.8) K/uL Eos # 0.0 (0.0-0.7) K/uL Baso # 0.0 (0.0-0.2) K/uL Sodium 133 (132-148) mmol/L Potassium 4.1 (3.6-5.2) mmol/L Chloride 96 L (98-107) mmol/L Carbon Dioxide 30 (22-30) mmol/L Anion Gap 11 (10-20) BUN 23 H (7-17) mg/dL Creatinine 0.8 (0.7-1.2) mg/dL Est GFR ( Amer) > 60 Est GFR (Non-Af Amer) > 60 POC Glucose (mg/dL) 173 H (65-110) mg/dL Random Glucose 125 H (65-105) mg/dL Calcium 7.5 L (8.6-10.4) mg/dl Phosphorus 2.8 (2.5-4.5) mg/dL Magnesium 2.0 (1.6-2.3) mg/dL Total Bilirubin 0.3 (0.2-1.3) mg/dL AST 12 L (14-36) U/L ALT 30 (9-52) U/L Alkaline Phosphatase 61 (38-126) U/L Total Protein 7.3 (6.3-8.3) g/dL Albumin 3.6 (3.5-5.0) g/dL Globulin 3.7 (2.2-3.9) gm/dL Albumin/Globulin Ratio 1.0 (1.0-2.1) Laboratory Results - last 24 hr 07/16/17 07/17/17 07/17/17 21:34 06:29 06:29 WBC 7.7 RBC 4.20 Hgb 11.5 Hct 36.3 MCV 86.6 MCH 27.3 MCHC 31.5 L RDW 15.5 H Plt Count 332 MPV 8.9 Neut % (Auto) 71.6 Lymph % (Auto) 19.[address] [place] % (Auto) 8.9 Eos % (Auto) 0.0 Baso % (Auto) 0.2 Neut # 5.5 Lymph # 1.5 [place] # 0.7 Eos # 0.0 Baso # 0.0 Sodium 133 Potassium 4.1 Chloride 96 L Carbon Dioxide 30 Anion Gap 11 BUN 23 H Creatinine 0.8 Est GFR ( Amer) > 60 Est GFR (Non-Af Amer) > 60 POC Glucose (mg/dL) 173 H Random Glucose 125 H Calcium 7.5 L Phosphorus 2.8 Magnesium 2.0 Total Bilirubin 0.3 AST 12 L ALT 30 Alkaline Phosphatase 61 Total Protein 7.3 Albumin 3.6 Globulin 3.7 Albumin/Globulin Ratio 1.0 07/17/17 07/17/17 07/17/17 07:27 11:50 16:20 WBC RBC Hgb Hct MCV MCH MCHC RDW Plt Count MPV Neut % (Auto) Lymph % (Auto) [place] % (Auto) Eos % (Auto) Baso % (Auto) Neut # Lymph # [place] # Eos # Baso # Sodium Potassium Chloride Carbon Dioxide Anion Gap BUN Creatinine Est GFR ( Amer) Est GFR (Non-Af Amer) POC Glucose (mg/dL) 120 H 239 H 164 H Random Glucose Calcium Phosphorus Magnesium Total Bilirubin AST ALT Alkaline Phosphatase Total Protein Albumin Globulin Albumin/Globulin Ratio Critical Care Progress Note - Nutrition Nutrition: Nutrition Category Date Time Status Consistent Carbohydrate [DIET] Diets 07/16/17 Lunch Active Attending/Attestation - Attestation I have personally seen and examined this patient.: Yes I have fully participated in the care of the patient.: Yes I have reviewed all pertinent clinical information: Yes Notes (Text): 07/17/17 17:42 Patient seen and examined Case discussed with STAFF Continue IV steroids, nebulizer treatment Continue BiPAP as needed Stable for transfer to floor
--- NOTE | 2017-07-17 14:58 | RAD ---
PROCEDURE: CHEST RADIOGRAPH, 1 VIEW HISTORY: unable to verify PICC tip. COMPARISON: 07/17/2017 FINDINGS: LUNGS: Clear. PLEURA: Minimal blunting of both costophrenic angles may reflect small pleural effusions or chronic pleural thickening. CARDIOVASCULAR: Mild cardiomegaly. This may be artifactual due to oblique positioning and portable technique. There is a new right PICC catheter terminating at the cavoatrial junction. OSSEOUS STRUCTURES: No significant abnormalities. VISUALIZED UPPER ABDOMEN: Normal. OTHER FINDINGS: None. IMPRESSION: New right PICC catheter terminating at the cavoatrial junction.
[2017-07-17] MEDS: Aztreonam 1 GM in Sodium Chloride 0.9% 100 ML IVPB SCH (22:45)
[2017-07-18] MEDS: Albuterol-Ipratrop 3 mg / 0.5 (3 ml) UD INH SCH ×4 (01:46→19:53)
[2017-07-18] MEDS: Aztreonam 1 GM in Sodium Chloride 0.9% 100 ML IVPB SCH ×3 (06:00→22:00)
[2017-07-18 06:33] LABS: BASO % 0.3 % (0.0-2.0); HEMATOCRIT 37.2 % (34.0-47.0); LYMPH # 1.7 K/uL (1.0-4.3); LYMPH % 20.2 % (20.0-40.0); MEAN CELL VOLUME 85.8 fL (81.0-99.0); MEAN CORPUSCULAR HEMOGLOBIN 28.2 pg (27.0-31.0); MEAN CORPUSCULAR HGB CONC 32.9 g/dL (33.0-37.0); MEAN PLATELET VOLUME 8.7 fL (7.2-11.7); MONO % 11.8 % (0.0-10.0); NRBC % 0.1 % (0.0-2.0); RED CELL DISTRIBUTION WIDTH 15.5 % (11.5-14.5); WHITE BLOOD COUNT 8.5 K/uL (4.8-10.8)
[2017-07-18] MEDS: MethylPREDNISolone 40 mg Vial IVP SCH (06:34)
[2017-07-18 07:01] LABS: ALKALINE PHOSPHATASE 51 U/L (38-126); ALT/SGPT 34 U/L (9-52); AST/SGOT 18 U/L (14-36); BILIRUBIN,TOTAL 0.3 mg/dL (0.2-1.3); BLOOD UREA NITROGEN 22 mg/dL (7-17); CALCIUM 7.6 mg/dl (8.6-10.4); CARBON DIOXIDE 30 mmol/L (22-30); CHLORIDE 95 mmol/L (98-107); GFR AFRICAN-AMERICAN > 60; GLUCOSE,RANDOM 123 mg/dL (65-105); PHOSPHOROUS 3.3 mg/dL (2.5-4.5); POTASSIUM 4.8 mmol/L (3.6-5.2); SODIUM 134 mmol/L (132-148); TOTAL PROTEIN 7.1 g/dL (6.3-8.3)
[2017-07-18] MEDS: (Novolog) Insulin Aspart, Recombinant 100 u/ml 10 ml vial SC SCH ×4 (07:23→22:12)
[2017-07-18] MEDS: Levothyroxine 150 MCG TAB PO SCH (09:06)
--- NOTE | 2017-07-18 11:01 | CP.CCUPN ---
<Mario Rondon - Last Filed: 07/18/17 15:56> CCU Subjective - Physician Review Subjective (Free Text): PGY1 ICU Progress Note for Dr. Rivera Patient seen and examined at bedside this morning. Patient is laying in bed and is in good spirits. Patient states she is feeling well and has no complaints at this time. CCU Objective - Vital Signs / Intake & Output Vital Signs (Last 4 hours): Vital Signs Temp Pulse Resp BP Pulse Ox 07/18/17 09:24 65 15 172/63 H 07/18/17 09:07 199/83 H 07/18/17 09:03 199/83 H 07/18/17 08:35 62 13 199/83 H 100 07/18/17 08:00 97.7 F 07/18/17 07:52 54 L 07/18/17 07:00 62 19 Intake and Output (Last 8hrs): Intake & Output 07/17/17 07/18/17 07/18/17 22:59 06:59 14:59 Intake Total 470 850 300 Output Total 293 351 9140 Balance - Weight 316 lb Intake: Intake, IV Amount 100 100 0 RF TLC Proximal 100 100 0 Oral 370 750 300 Output: Urine 647 693 9445 Urine, Voided 098 690 7570 Stool 0 Other: # Bowel Movements 0 - Physical Exam Head: Positive for: Atraumatic, Normocephalic Pupils: Positive for: PERRL Extroacular Muscles: Positive for: EOMI Conjunctiva: Positive for: Normal Mouth: Positive for: Moist Mucous Membranes Respiratory/Chest: Positive for: Clear to Auscultation, Decreased Breath Sounds (obese). Negative for: Accessory Muscle Use Cardiovascular: Positive for: Regular Rate and Rhythm Abdomen: Positive for: Other (obese). Negative for: Tenderness, Distention Upper Extremity: Negative for: Edema Lower Extremity: Positive for: Edema Neurological: Positive for: Motor Func Grossly Intact. Negative for: Speech Normal (mildly SOB - patient states that this is her baseline) Skin: Positive for: Warm, Dry Psychiatric: Positive for: Alert, Oriented x 3 - Medications Active Medications: Active Medications Generic Name Dose Route Start Last Admin Trade Name Freq PRN Reason Stop Dose Admin Acetaminophen 650 mg 07/18/17 10:56 Tylenol 325mg Tab PO Q6 PRN Fever/pain Albuterol/Ipratropium 3 ml 07/14/17 08:00 07/18/17 07:52 Duoneb 3 Mg/0.5 Mg (3 Ml) Ud INH 3 ml RQ6 TIMOTEO Administration Carvedilol 25 mg 07/14/17 18:00 07/18/17 09:03 Coreg PO 25 mg BID TIMOTEO Administration Docusate Sodium 200 mg 07/14/17 22:00 07/17/17 21:03 Colace PO 200 mg HS TIMOTEO Administration Duloxetine HCl 30 mg 07/14/17 18:00 07/18/17 09:05 Cymbalta PO 30 mg BID TIMOTEO Administration Enalapril Maleate 5 mg 07/15/17 10:00 07/18/17 09:07 Vasotec PO 5 mg DAILY TIMOTEO Administration Gabapentin 300 mg 07/14/17 18:00 07/18/17 09:06 Neurontin PO 300 mg BID TIMOTEO Administration Heparin Sodium (Porcine) 5,000 units 07/14/17 06:00 07/18/17 06:20 Heparin SC 5,000 units Q8 TIMOTEO Administration Aztreonam 1 gm/ Sodium 100 mls @ 200 mls/hr 07/17/17 22:45 07/18/17 06:00 Chloride IVPB 200 mls/hr Q8H TIMOTEO Administration Insulin Aspart 0 unit 07/15/17 22:00 07/18/17 07:23 Novolog SC Not Given ACHS [facility] Protocol Levothyroxine Sodium 150 mcg 07/15/17 10:00 07/18/17 09:06 Synthroid PO 150 mcg DAILY TIMOTEO Administration Montelukast Sodium 10 mg 07/15/17 10:00 07/18/17 09:06 Singulair PO 10 mg DAILY TIMOTEO Administration Pantoprazole Sodium 40 mg 07/19/17 10:00 Protonix Ec Tab PO DAILY [facility] Prednisone 40 mg 07/19/17 10:00 Prednisone Tab PO DAILY [facility] - Patient Studies Lab Studies: Microbiology Studies 07/14/17 01:30 Blood Culture - Preliminary Blood NO GROWTH AFTER 3 DAYS 07/14/17 01:00 S.aureus & Coag-Neg Staph PNA FISH - Final Blood Blood Culture - Final Coagulase Neg Staphylococcus Gram Stain - Final Lab Studies 07/18/17 07/18/17 07/18/17 Range/Units 07:19 06:26 06:26 WBC 8.5 (4.8-10.8) K/uL RBC 4.33 (3.80-5.20) Mil/uL Hgb 12.2 (11.0-16.0) g/dL Hct 37.2 (34.0-47.0) % MCV 85.8 (81.0-99.0) fL MCH 28.2 (27.0-31.0) pg MCHC 32.9 L (33.0-37.0) g/dL RDW 15.5 H (11.5-14.5) % Plt Count 302 (130-400) K/uL MPV 8.7 (7.2-11.7) fL Neut % (Auto) 67.7 (50.0-75.0) % Lymph % (Auto) 20.2 (20.0-40.0) % [place] % (Auto) 11.8 H (0.0-10.0) % Eos % (Auto) 0.0 (0.0-4.0) % Baso % (Auto) 0.3 (0.0-2.0) % Neut # 5.8 (1.8-7.0) K/uL Lymph # 1.7 (1.0-4.3) K/uL [place] # 1.0 H (0.0-0.8) K/uL Eos # 0.0 (0.0-0.7) K/uL Baso # 0.0 (0.0-0.2) K/uL Sodium 134 (132-148) mmol/L Potassium 4.8 (3.6-5.2) mmol/L Chloride 95 L (98-107) mmol/L Carbon Dioxide 30 (22-30) mmol/L Anion Gap 13 (10-20) BUN 22 H (7-17) mg/dL Creatinine 0.6 L (0.7-1.2) mg/dL Est GFR ( Amer) > 60 Est GFR (Non-Af Amer) > 60 POC Glucose (mg/dL) 131 H (65-110) mg/dL Random Glucose 123 H (65-105) mg/dL Calcium 7.6 L (8.6-10.4) mg/dl Phosphorus 3.3 (2.5-4.5) mg/dL Magnesium 2.0 (1.6-2.3) mg/dL Total Bilirubin 0.3 (0.2-1.3) mg/dL AST 18 (14-36) U/L ALT 34 (9-52) U/L Alkaline Phosphatase 51 (38-126) U/L Total Protein 7.1 (6.3-8.3) g/dL Albumin 3.5 (3.5-5.0) g/dL Globulin 3.6 (2.2-3.9) gm/dL Albumin/Globulin Ratio 1.0 (1.0-2.1) 07/17/17 07/17/17 07/17/17 Range/Units 21:12 16:20 11:50 WBC (4.8-10.8) K/uL RBC (3.80-5.20) Mil/uL Hgb (11.0-16.0) g/dL Hct (34.0-47.0) % MCV (81.0-99.0) fL MCH (27.0-31.0) pg MCHC (33.0-37.0) g/dL RDW (11.5-14.5) % Plt Count (130-400) K/uL MPV (7.2-11.7) fL Neut % (Auto) (50.0-75.0) % Lymph % (Auto) (20.0-40.0) % [place] % (Auto) (0.0-10.0) % Eos % (Auto) (0.0-4.0) % Baso % (Auto) (0.0-2.0) % Neut # (1.8-7.0) K/uL Lymph # (1.0-4.3) K/uL [place] # (0.0-0.8) K/uL Eos # (0.0-0.7) K/uL Baso # (0.0-0.2) K/uL Sodium (132-148) mmol/L Potassium (3.6-5.2) mmol/L Chloride (98-107) mmol/L Carbon Dioxide (22-30) mmol/L Anion Gap (10-20) BUN (7-17) mg/dL Creatinine (0.7-1.2) mg/dL Est GFR ( Amer) Est GFR (Non-Af Amer) POC Glucose (mg/dL) 157 H 164 H 239 H (65-110) mg/dL Random Glucose (65-105) mg/dL Calcium (8.6-10.4) mg/dl Phosphorus (2.5-4.5) mg/dL Magnesium (1.6-2.3) mg/dL Total Bilirubin (0.2-1.3) mg/dL AST (14-36) U/L ALT (9-52) U/L Alkaline Phosphatase (38-126) U/L Total Protein (6.3-8.3) g/dL Albumin (3.5-5.0) g/dL Globulin (2.2-3.9) gm/dL Albumin/Globulin Ratio (1.0-2.1) Laboratory Results - last 24 hr 07/17/17 07/17/17 07/17/17 11:50 16:20 21:12 WBC RBC Hgb Hct MCV MCH MCHC RDW Plt Count MPV Neut % (Auto) Lymph % (Auto) [place] % (Auto) Eos % (Auto) Baso % (Auto) Neut # Lymph # [place] # Eos # Baso # Sodium Potassium Chloride Carbon Dioxide Anion Gap BUN Creatinine Est GFR ( Amer) Est GFR (Non-Af Amer) POC Glucose (mg/dL) 239 H 164 H 157 H Random Glucose Calcium Phosphorus Magnesium Total Bilirubin AST ALT Alkaline Phosphatase Total Protein Albumin Globulin Albumin/Globulin Ratio 07/18/17 07/18/17 07/18/17 06:26 06:26 07:19 WBC 8.5 RBC 4.33 Hgb 12.2 Hct 37.2 MCV 85.8 MCH 28.2 MCHC 32.9 L RDW 15.5 H Plt Count 302 MPV 8.7 Neut % (Auto) 67.7 Lymph % (Auto) 20.2 [place] % (Auto) 11.8 H Eos % (Auto) 0.0 Baso % (Auto) 0.3 Neut # 5.8 Lymph # 1.7 [place] # 1.0 H Eos # 0.0 Baso # 0.0 Sodium 134 Potassium 4.8 Chloride 95 L Carbon Dioxide 30 Anion Gap 13 BUN 22 H Creatinine 0.6 L Est GFR ( Amer) > 60 Est GFR (Non-Af Amer) > 60 POC Glucose (mg/dL) 131 H Random Glucose 123 H Calcium 7.6 L Phosphorus 3.3 Magnesium 2.0 Total Bilirubin 0.3 AST 18 ALT 34 Alkaline Phosphatase 51 Total Protein 7.1 Albumin 3.5 Globulin 3.6 Albumin/Globulin Ratio 1.0 Fingerstick Blood Sugar Results: 131 Review of Systems - Review of Systems All systems: reviewed and no additional remarkable complaints except (as per HPI ) Critical Care Progress Note - Nutrition Nutrition: Nutrition Category Date Time Status Consistent Carbohydrate [DIET] Diets 07/16/17 Lunch Active Assessment/Plan - Assessment and Plan (Free Text) Assessment: 72 year old female with PMH of COPD and DM presents with hypercapneic respiratory failure and sepsis Plan: Respiratory: Extubated. BiPAP PRN CXR 07/17 - No active disease. Duonebs 3ml RQ6 Solumedrol 40 mg IVP Q8H - discontinued Prednisone 40 mg PO daily Singulair 10mg PO daily Neuro: Normal Mental Status Head CT 07/14 - No definite acute intracranial abnormality. Acute infarction may be CT occult within first 24 hours. If a focal deficit persists, consider follow up CT or MRI for further evaluation. Sinus disease. Mastoid disease. Home meds - Cymbalta, Neurontin ID: Sepsis WBC 8.5 Urine Culture - Providencia Stuartii - susceptible to Aztreonam Blood Culture - Coag Neg Staph x 1 (believed to be contamination) ; negative x1 @ 3 days Sputum Culture - negative Aztreonam 1gm IVPB Q8H Avelox 400mg PO daily - discontinued CV: Coreg 25mg PO BID Vasotec 5mg PO daily Prophylactic Care: Heparin 5000u SC Q8H Protonix 40mg PO daily ISS Synthroid 150mcg PO daily - f/u TSH in am Colace 200mg PO HS Case discussed with Dr. Miguel Rondon <Hudson Rivera - Last Filed: 07/18/17 18:59> CCU Objective - Vital Signs / Intake & Output Vital Signs (Last 4 hours): Vital Signs Temp Pulse Resp BP Pulse Ox 07/18/17 18:23 66 17 146/75 95 07/18/17 17:25 69 18 124/93 H 65 L 07/18/17 17:18 153/74 H 07/18/17 16:24 63 153/74 H 97 07/18/17 16:00 98.6 F 07/18/17 15:08 64 10 L 186/93 H 100 Intake and Output (Last 8hrs): Intake & Output 07/18/17 07/18/17 07/18/17 06:59 14:59 22:59 Intake Total 850 600 700 Output Total 900 2400 520 Balance -50 -1800 180 Weight 316 lb Intake: Intake, IV Amount 100 0 100 RF TLC Proximal 100 0 Right PICC 100 Oral 750 600 600 Output: Urine 900 2400 520 Urine, Voided 900 2400 520 Stool 0 - Medications Active Medications: Active Medications Generic Name Dose Route Start Last Admin Trade Name Freq PRN Reason Stop Dose Admin Acetaminophen 650 mg 07/18/17 10:56 07/18/17 11:07 Tylenol 325mg Tab PO 650 mg Q6 PRN Administration Fever/pain Albuterol/Ipratropium 3 ml 07/14/17 08:00 07/18/17 13:56 Duoneb 3 Mg/0.5 Mg (3 Ml) Ud INH 3 ml RQ6 TIMOTEO Administration Carvedilol 25 mg 07/14/17 18:00 07/18/17 17:18 Coreg PO 25 mg BID TIMOTEO Administration Docusate Sodium 200 mg 07/14/17 22:00 07/17/17 21:03 Colace PO 200 mg HS TIMOTEO Administration Duloxetine HCl 30 mg 07/14/17 18:00 07/18/17 17:19 Cymbalta PO 30 mg BID TIMOTEO Administration Enalapril Maleate 5 mg 07/15/17 10:00 07/18/17 09:07 Vasotec PO 5 mg DAILY TIMOTEO Administration Gabapentin 300 mg 07/14/17 18:00 07/18/17 17:20 Neurontin PO 300 mg BID TIMOTEO Administration Heparin Sodium (Porcine) 5,000 units 07/14/17 06:00 07/18/17 17:18 Heparin SC 5,000 units Q8 TIMOTEO Administration Aztreonam 1 gm/ Sodium 100 mls @ 200 mls/hr 07/17/17 22:45 07/18/17 17:12 Chloride IVPB 200 mls/hr Q8H TIMOTEO Administration Insulin Aspart 0 unit 07/15/17 22:00 07/18/17 17:05 Novolog SC Not Given ACHS TIMOTEO Protocol Levothyroxine Sodium 150 mcg 07/15/17 10:00 07/18/17 09:06 Synthroid PO 150 mcg DAILY TIMOTEO Administration Montelukast Sodium 10 mg 07/15/17 10:00 07/18/17 09:06 Singulair PO 10 mg DAILY TIMOTEO Administration Pantoprazole Sodium 40 mg 07/19/17 10:00 Protonix Ec Tab PO DAILY TIMOTEO Prednisone 40 mg 07/19/17 10:00 Prednisone Tab PO DAILY TIMOTEO - Patient Studies Lab Studies: Microbiology Studies 07/14/17 01:30 Blood Culture - Preliminary Blood NO GROWTH AFTER 4 DAYS Lab Studies 07/18/17 07/18/17 07/18/17 Range/Units 16:37 11:08 07:19 WBC (4.8-10.8) K/uL RBC (3.80-5.20) Mil/uL Hgb (11.0-16.0) g/dL Hct (34.0-47.0) % MCV (81.0-99.0) fL MCH (27.0-31.0) pg MCHC (33.0-37.0) g/dL RDW (11.5-14.5) % Plt Count (130-400) K/uL MPV (7.2-11.7) fL Neut % (Auto) (50.0-75.0) % Lymph % (Auto) (20.0-40.0) % [place] % (Auto) (0.0-10.0) % Eos % (Auto) (0.0-4.0) % Baso % (Auto) (0.0-2.0) % Neut # (1.8-7.0) K/uL Lymph # (1.0-4.3) K/uL [place] # (0.0-0.8) K/uL Eos # (0.0-0.7) K/uL Baso # (0.0-0.2) K/uL Sodium (132-148) mmol/L Potassium (3.6-5.2) mmol/L Chloride (98-107) mmol/L Carbon Dioxide (22-30) mmol/L Anion Gap (10-20) BUN (7-17) mg/dL Creatinine (0.7-1.2) mg/dL Est GFR ( Amer) Est GFR (Non-Af Amer) POC Glucose (mg/dL) 137 H 253 H 131 H (65-110) mg/dL Random Glucose (65-105) mg/dL Calcium (8.6-10.4) mg/dl Phosphorus (2.5-4.5) mg/dL Magnesium (1.6-2.3) mg/dL Total Bilirubin (0.2-1.3) mg/dL AST (14-36) U/L ALT (9-52) U/L Alkaline Phosphatase (38-126) U/L Total Protein (6.3-8.3) g/dL Albumin (3.5-5.0) g/dL Globulin (2.2-3.9) gm/dL Albumin/Globulin Ratio (1.0-2.1) 07/18/17 07/18/17 07/17/17 Range/Units 06:26 06:26 21:12 WBC 8.5 (4.8-10.8) K/uL RBC 4.33 (3.80-5.20) Mil/uL Hgb 12.2 (11.0-16.0) g/dL Hct 37.2 (34.0-47.0) % MCV 85.8 (81.0-99.0) fL MCH 28.2 (27.0-31.0) pg MCHC 32.9 L (33.0-37.0) g/dL RDW 15.5 H (11.5-14.5) % Plt Count 302 (130-400) K/uL MPV 8.7 (7.2-11.7) fL Neut % (Auto) 67.7 (50.0-75.0) % Lymph % (Auto) 20.2 (20.0-40.0) % [place] % (Auto) 11.8 H (0.0-10.0) % Eos % (Auto) 0.0 (0.0-4.0) % Baso % (Auto) 0.3 (0.0-2.0) % Neut # 5.8 (1.8-7.0) K/uL Lymph # 1.7 (1.0-4.3) K/uL [place] # 1.0 H (0.0-0.8) K/uL Eos # 0.0 (0.0-0.7) K/uL Baso # 0.0 (0.0-0.2) K/uL Sodium 134 (132-148) mmol/L Potassium 4.8 (3.6-5.2) mmol/L Chloride 95 L (98-107) mmol/L Carbon Dioxide 30 (22-30) mmol/L Anion Gap 13 (10-20) BUN 22 H (7-17) mg/dL Creatinine 0.6 L (0.7-1.2) mg/dL Est GFR ( Amer) > 60 Est GFR (Non-Af Amer) > 60 POC Glucose (mg/dL) 157 H (65-110) mg/dL Random Glucose 123 H (65-105) mg/dL Calcium 7.6 L (8.6-10.4) mg/dl Phosphorus 3.3 (2.5-4.5) mg/dL Magnesium 2.0 (1.6-2.3) mg/dL Total Bilirubin 0.3 (0.2-1.3) mg/dL AST 18 (14-36) U/L ALT 34 (9-52) U/L Alkaline Phosphatase 51 (38-126) U/L Total Protein 7.1 (6.3-8.3) g/dL Albumin 3.5 (3.5-5.0) g/dL Globulin 3.6 (2.2-3.9) gm/dL Albumin/Globulin Ratio 1.0 (1.0-2.1) Laboratory Results - last 24 hr 07/17/17 07/18/17 07/18/17 21:12 06:26 06:26 WBC 8.5 RBC 4.33 Hgb 12.2 Hct 37.2 MCV 85.8 MCH 28.2 MCHC 32.9 L RDW 15.5 H Plt Count 302 MPV 8.7 Neut % (Auto) 67.7 Lymph % (Auto) 20.2 [place] % (Auto) 11.8 H Eos % (Auto) 0.0 Baso % (Auto) 0.3 Neut # 5.8 Lymph # 1.7 [place] # 1.0 H Eos # 0.0 Baso # 0.0 Sodium 134 Potassium 4.8 Chloride 95 L Carbon Dioxide 30 Anion Gap 13 BUN 22 H Creatinine 0.6 L Est GFR ( Amer) > 60 Est GFR (Non-Af Amer) > 60 POC Glucose (mg/dL) 157 H Random Glucose 123 H Calcium 7.6 L Phosphorus 3.3 Magnesium 2.0 Total Bilirubin 0.3 AST 18 ALT 34 Alkaline Phosphatase 51 Total Protein 7.1 Albumin 3.5 Globulin 3.6 Albumin/Globulin Ratio 1.0 07/18/17 07/18/17 07/18/17 07:19 11:08 16:37 WBC RBC Hgb Hct MCV MCH MCHC RDW Plt Count MPV Neut % (Auto) Lymph % (Auto) [place] % (Auto) Eos % (Auto) Baso % (Auto) Neut # Lymph # [place] # Eos # Baso # Sodium Potassium Chloride Carbon Dioxide Anion Gap BUN Creatinine Est GFR ( Amer) Est GFR (Non-Af Amer) POC Glucose (mg/dL) 131 H 253 H 137 H Random Glucose Calcium Phosphorus Magnesium Total Bilirubin AST ALT Alkaline Phosphatase Total Protein Albumin Globulin Albumin/Globulin Ratio Critical Care Progress Note - Nutrition Nutrition: Nutrition Category Date Time Status Consistent Carbohydrate [DIET] Diets 07/16/17 Lunch Active Attending/Attestation - Attestation I have personally seen and examined this patient.: Yes I have fully participated in the care of the patient.: Yes I have reviewed all pertinent clinical information: Yes Notes (Text): 07/18/17 18:59 Today: June The Patient was seen and examined at the bedside, Medical records reviewed, and management issues were discussed and formulated with the house staff. I have reviewed all the relevant clinical, laboratory, hemodynamic, radiographic data and medications Events reviewed Pain issues, skin care, head of the bed elevation, glycemic control were addressed. Agree with above resident's assessment and treatment plans of care as transcribed in Dr. Rondon note.
[2017-07-19] MEDS ORDERED: Acetaminophen 650mg/20.3ml solution UD PO PRN (00:15)
[2017-07-19] MEDS: Albuterol-Ipratrop 3 mg / 0.5 (3 ml) UD INH SCH ×4 (01:42→19:42)
[2017-07-19] MEDS: Aztreonam 1 GM in Sodium Chloride 0.9% 100 ML IVPB SCH ×3 (06:11→21:44)
[2017-07-19 06:34] LABS: BASO % 0.3 % (0.0-2.0); EOS # 0.1 K/uL (0.0-0.7); EOS % 1.1 % (0.0-4.0); HEMATOCRIT 40.9 % (34.0-47.0); LYMPH # 3.6 K/uL (1.0-4.3); LYMPH % 30.2 % (20.0-40.0); MEAN CORPUSCULAR HEMOGLOBIN 27.1 pg (27.0-31.0); MEAN CORPUSCULAR HGB CONC 31.1 g/dL (33.0-37.0); MEAN PLATELET VOLUME 8.6 fL (7.2-11.7); MONO # 1.9 K/uL (0.0-0.8); MONO % 15.6 % (0.0-10.0); NRBC % 0.1 % (0.0-2.0); RED CELL DISTRIBUTION WIDTH 15.5 % (11.5-14.5)
[2017-07-19 06:40] LABS: ALB/GLOB RATIO 1.3 (1.0-2.1); ALKALINE PHOSPHATASE 51 U/L (38-126); ALT/SGPT 48 U/L (9-52); AST/SGOT 22 U/L (14-36); BILIRUBIN,TOTAL 0.6 mg/dL (0.2-1.3); BLOOD UREA NITROGEN 22 mg/dL (7-17); CALCIUM 7.8 mg/dl (8.6-10.4); CARBON DIOXIDE 32 mmol/L (22-30); CHLORIDE 97 mmol/L (98-107); GFR AFRICAN-AMERICAN > 60; GLUCOSE,RANDOM 116 mg/dL (65-105); PHOSPHOROUS 3.4 mg/dL (2.5-4.5); POTASSIUM 4.5 mmol/L (3.6-5.2); SODIUM 134 mmol/L (132-148); TOTAL PROTEIN 6.2 g/dL (6.3-8.3)
[2017-07-19 07:09] LABS: THYROID STIMULATING HORMONE 4.03 mIU/L (0.46-4.68)
[2017-07-19] MEDS: (Novolog) Insulin Aspart, Recombinant 100 u/ml 10 ml vial SC SCH ×4 (07:30→21:26)
[2017-07-19] MEDS: Levothyroxine 150 MCG TAB PO SCH (09:41)
[2017-07-19] MEDS ORDERED: Pantoprazole 40 mg EC Tab PO SCH (10:00)
--- NOTE | 2017-07-19 18:21 | CP.PCM.DIS ---
Provider - Provider Date of Admission: 07/14/17 02:49 Attending physician: Hayden Tovar Jr, MD Time Spent in preparation of Discharge (in minutes): 35 Hospital Course - Lab Results Lab Results: Micro Results 07/14/17 01:30 Blood Blood Culture - Final NO GROWTH AFTER 5 DAYS 07/14/17 01:30 Blood Gram Stain - Final TEST NOT PERFORMED 07/14/17 01:00 Blood S.aureus & Coag-Neg Staph PNA FISH - Final 07/14/17 01:00 Blood Blood Culture - Final Coagulase Neg Staphylococcus 07/14/17 01:00 Blood Gram Stain - Final 07/14/17 05:41 Trachasp Gram Stain - Final 07/14/17 05:41 Trachasp Sputum Culture - Final NORMAL ORAL BREANNA 07/14/17 04:16 Nose MRSA Culture (Admit) - Final 07/14/17 06:02 Urine Urine Culture - Final Providencia Stuartii Most Recent Lab Values WBC 12.0 K/uL (4.8-10.8) H 07/19/17 06:18 RBC 4.71 Mil/uL (3.80-5.20) 07/19/17 06:18 Hgb 12.7 g/dL (11.0-16.0) 07/19/17 06:18 Hct 40.9 % (34.0-47.0) 07/19/17 06:18 MCV 87.0 fL (81.0-99.0) 07/19/17 06:18 MCH 27.1 pg (27.0-31.0) 07/19/17 06:18 MCHC 31.1 g/dL (33.0-37.0) L 07/19/17 06:18 RDW 15.5 % (11.5-14.5) H 07/19/17 06:18 Plt Count 304 K/uL (130-400) 07/19/17 06:18 MPV 8.6 fL (7.2-11.7) 07/19/17 06:18 Neut % (Auto) 52.8 % (50.0-75.0) 07/19/17 06:18 Lymph % (Auto) 30.2 % (20.0-40.0) 07/19/17 06:18 [place] % (Auto) 15.6 % (0.0-10.0) H 07/19/17 06:18 Eos % (Auto) 1.1 % (0.0-4.0) 07/19/17 06:18 Baso % (Auto) 0.3 % (0.0-2.0) 07/19/17 06:18 Neut # 6.3 K/uL (1.8-7.0) 07/19/17 06:18 Lymph # 3.6 K/uL (1.0-4.3) 07/19/17 06:18 [place] # 1.9 K/uL (0.0-0.8) H 07/19/17 06:18 Eos # 0.1 K/uL (0.0-0.7) 07/19/17 06:18 Baso # 0.0 K/uL (0.0-0.2) 07/19/17 06:18 PT 11.3 SECONDS (9.7-12.2) 07/14/17 01:47 INR 1.0 07/14/17 01:47 APTT 36 SECONDS (21-34) H 07/14/17 01:47 Puncture Site Rra 07/15/17 17:30 pCO2 47 mm/Hg (35-45) H 07/15/17 17:30 pO2 72 mm/Hg (80-100) L 07/15/17 17:30 HCO3 30.2 mmol/L (21-28) H 07/15/17 17:30 ABG pH 7.44 (7.35-7.45) 07/15/17 17:30 ABG Total CO2 33.3 mmol/L (22-28) H 07/15/17 17:30 ABG O2 Saturation 97.2 % (95-98) 07/15/17 17:30 ABG Base Excess 6.8 mmol/L (-2.0-3.0) H 07/15/17 17:30 ABG Hemoglobin 11.6 g/dL (11.7-17.4) L 07/15/17 17:30 ABG Carboxyhemoglobin 1.9 % (0.5-1.5) H 07/15/17 17:30 POC ABG HHb (Measured) 2.7 % (0.0-5.0) 07/15/17 17:30 ABG Methemoglobin 0.9 % (0.0-3.0) 07/15/17 17:30 [place] Test Na 07/15/17 17:30 ABG Potassium 2.7 mmol/L (3.6-5.2) L 07/14/17 01:19 A-a O2 Difference 119.0 mm/Hg 07/15/17 17:30 Respiratory Index 1.7 07/15/17 17:30 Hgb O2 Saturation 94.5 % (95.0-98.0) L 07/15/17 17:30 Sodium 146.0 mmol/l (132-148) 07/14/17 01:19 Chloride 115.0 mmol/L (98-107) H 07/14/17 01:19 Glucose 101 mg/dl (65-105) 07/14/17 01:19 Lactate 0.5 mmol/L (0.7-2.1) L 07/14/17 01:19 Liter Flow 15.0 07/14/17 01:19 Vent Mode Prvc 07/15/17 05:03 Mechanical Rate 18 07/15/17 05:03 FiO2 35.0 % 07/15/17 17:30 Tidal Volume 450 07/15/17 05:03 PEEP 5 07/15/17 17:30 Pressure Support 12 07/15/17 17:30 Crit Value Called To Dr sol 07/14/17 01:19 Crit Value Called By Yecenia ayala rt 07/14/17 01:19 Crit Value Read Back Y 07/14/17 01:19 Blood Gas Notified Time 126 07/14/17 01:19 Sodium 134 mmol/L (132-148) 07/19/17 06:18 Potassium 4.5 mmol/L (3.6-5.2) 07/19/17 06:18 Chloride 97 mmol/L (98-107) L 07/19/17 06:18 Carbon Dioxide 32 mmol/L (22-30) H 07/19/17 06:18 Anion Gap 10 (10-20) 07/19/17 06:18 BUN 22 mg/dL (7-17) H 07/19/17 06:18 Creatinine 0.7 mg/dL (0.7-1.2) 07/19/17 06:18 Est GFR ( Amer) > 60 07/19/17 06:18 Est GFR (Non-Af Amer) > 60 07/19/17 06:18 POC Glucose (mg/dL) 246 mg/dL (65-110) H 07/19/17 16:32 Random Glucose 116 mg/dL (65-105) H 07/19/17 06:18 Lactic Acid 1.4 mmol/L (0.7-2.1) 07/15/17 06:36 Calcium 7.8 mg/dl (8.6-10.4) L 07/19/17 06:18 Phosphorus 3.4 mg/dL (2.5-4.5) 07/19/17 06:18 Magnesium 2.0 mg/dL (1.6-2.3) 07/19/17 06:18 Total Bilirubin 0.6 mg/dL (0.2-1.3) 07/19/17 06:18 AST 22 U/L (14-36) 07/19/17 06:18 ALT 48 U/L (9-52) 07/19/17 06:18 Alkaline Phosphatase 51 U/L (38-126) 07/19/17 06:18 Troponin I < 0.0120 ng/mL (0.00-0.120) 07/16/17 06:15 NT-Pro-B Natriuret Pep 407 pg/mL (0-900) 07/14/17 06:30 Total Protein 6.2 g/dL (6.3-8.3) L 07/19/17 06:18 Albumin 3.5 g/dL (3.5-5.0) 07/19/17 06:18 Globulin 2.8 gm/dL (2.2-3.9) 07/19/17 06:18 Albumin/Globulin Ratio 1.3 (1.0-2.1) 07/19/17 06:18 Procalcitonin < 0.05 NG/ML (0.19-0.49) L 07/14/17 06:30 TSH 3rd Generation 4.03 mIU/L (0.46-4.68) 07/19/17 06:18 Arterial Blood Potassium 2.7 mmol/L (3.6-5.2) L 07/14/17 01:19 Urine Color Jill (YELLOW) 07/14/17 06:30 Urine Clarity Hazy (Clear) 07/14/17 06:30 Urine pH 5.0 (5.0-8.0) 07/14/17 06:30 Ur Specific [place] 1.023 (1.003-1.030) 07/14/17 06:30 Urine Protein 3+ mg/dL (NEGATIVE) H 07/14/17 06:30 Urine Glucose (UA) Normal mg/dL (Normal) 07/14/17 06:30 Urine Ketones Trace mg/dL (NEGATIVE) 07/14/17 06:30 Urine Blood Negative (NEGATIVE) 07/14/17 06:30 Urine Nitrate Positive (NEGATIVE) H 07/14/17 06:30 Urine Bilirubin Negative (NEGATIVE) 07/14/17 06:30 Urine Urobilinogen Normal mg/dL (0.2-1.0) 07/14/17 06:30 Ur Leukocyte Esterase 2+ Cony/uL (Negative) H 07/14/17 06:30 Urine WBC (Auto) 316 /hpf (0-5) H 07/14/17 06:30 Urine RBC (Auto) 4 /hpf (0-3) H 07/14/17 06:30 Ur Squamous Epith Cells 7 /hpf (0-5) H 07/14/17 06:30 Urine Bacteria Many (<OCC) H 07/14/17 06:30 Urine Opiates Screen Negative (NEGATIVE) 07/14/17 06:30 Urine Methadone Screen Negative (NEGATIVE) 07/14/17 06:30 Ur Barbiturates Screen Negative (NEGATIVE) 07/14/17 06:30 Ur Phencyclidine Scrn Negative (NEGATIVE) 07/14/17 06:30 Ur Amphetamines Screen Negative (NEGATIVE) 07/14/17 06:30 U Benzodiazepines Scrn Negative (NEGATIVE) 07/14/17 06:30 U Oth Cocaine Metabols Negative (NEGATIVE) 07/14/17 06:30 U Cannabinoids Screen Negative (NEGATIVE) 07/14/17 06:30 - Hospital Course Hospital Course: HPI ( As per admission): 71F with PMHx COPD and DM per ER nurse presents to the ED from assisted after being found unresponsive in the assisted since 5pm. Patient was recently admitted in the past for similar symptoms and was found to be hypoxic and hypercarbic. Patient was intubated in the ED. ROS could not be obtained. Hospital Course: Patient was admitted with the consideration hypercapneic respiratory failure, patient was placed on BIpap but no air movement was noted, therefore, patient was intubated. In addition, sepsis protocol was initiated and urine culture was positive Providencia Stuartii and Blood culture positive for coagulase negative staphylcoccus, therefore, patient was started on the appropriate antibiotics. Patient was extubated on 07/16/17 and was placed on BiPap and was breathing comfortably. By the third day of admission, patient was downgraded from BiPap to nasal cannula and did well. Patient had no acute issues during the hospital course. Patient was deemed stable and was discharge to [facility]. Pertinent Imaging: Head CT 07/14 - No definite acute intracranial abnormality. Acute infarction may be CT occult within first 24 hours. This is a brief summary of events. For a complete course, please refer to the medical records Discharge Exam - Head Exam Head Exam: ATRAUMATIC, NORMAL INSPECTION - Eye Exam Eye Exam: EOMI - ENT Exam ENT Exam: Mucous Membranes Moist - Respiratory Exam Respiratory Exam: NORMAL BREATHING PATTERN Additional comments: Cleared anteriorly, limited exam due to body habitus - Cardiovascular Exam Cardiovascular Exam: REGULAR RHYTHM, +S1, +S2 - GI/Abdominal Exam GI & Abdominal Exam: Normal Bowel Sounds, Soft. absent: Tenderness - Extremities Exam Extremities exam: normal inspection - Neurological Exam Neurological exam: Alert - Psychiatric Exam Psychiatric exam: Normal Affect - Skin Skin Exam: Normal Color Discharge Plan - Follow Up Plan Condition: CRITICAL Disposition: HOME/ ROUTINE Instructions: COPD (Chronic Obstructive Pulmonary Disease) (DC), Chronic Respiratory Failure (DC) Additional Instructions: Please discharge patient to [facility] as per Dr. Tovar Patient should continue home medications as prescribed Please follow up with your PMD Patient return to the ED if symptoms resumes or worsen
[2017-07-19 18:53] VITALS: BP 134/84
[2017-07-19 20:17] VITALS: PULSE 74; RESP 17; O2SAT 100
[2017-07-19 20:20] VITALS: TEMP 98.2
== END 2017-07-19 23:50 | disposition home or self-care (01) | DRG 871 ==
LOC: C.ER 00:44 → C.9E 02:49 → C.9I 03:35
PROVIDERS: ADMIT Internal Medicine; ATTEND Internal Medicine
PROC: 0BH17EZ Insertion of Endotracheal Airway into Trachea, Via Natural or Artificial Opening (ICD-10-PCS; principal; 2017-07-14)
PROC: 5A1945Z Respiratory Ventilation, 24-96 Consecutive Hours (ICD-10-PCS; 2017-07-14)
PROC: 5A09457 Assistance with Respiratory Ventilation, 24-96 Consecutive Hours, Continuous Positive Airway Pressure (ICD-10-PCS; 2017-07-15)
DX: A41.9 Sepsis, unspecified organism (principal); J96.02 Acute respiratory failure with hypercapnia; E87.2 Acidosis; Z68.42 Body mass index [BMI] 45.0-49.9, adult; N39.0 Urinary tract infection, site not specified; B96.89 Other specified bacterial agents as the cause of diseases classified elsewhere; I10 Essential (primary) hypertension; E11.9 Type 2 diabetes mellitus without complications; I25.10 Atherosclerotic heart disease of native coronary artery without angina pectoris; G20 Parkinson's disease; E03.9 Hypothyroidism, unspecified; G47.30 Sleep apnea, unspecified; J44.9 Chronic obstructive pulmonary disease, unspecified; E66.01 Morbid (severe) obesity due to excess calories; F31.9 Bipolar disorder, unspecified; K21.9 Gastro-esophageal reflux disease without esophagitis; Z87.440 Personal history of urinary (tract) infections

== ENCOUNTER 2017-09-07 11:28 | Inpatient (IN) | payer MEDICARE, MEDICAID ==
[2017-09-07 11:28] VITALS: BMI 60.2
[2017-09-07 12:21] LABS: BASO # 0.1 K/uL (0.0-0.2); BASO % 0.9 % (0.0-2.0); EOS # 0.1 K/uL (0.0-0.7); HEMOGLOBIN 11.7 g/dL (11.0-16.0); LYMPH # 1.9 K/uL (1.0-4.3); LYMPH % 15.2 % (20.0-40.0); MEAN CELL VOLUME 87.5 fL (81.0-99.0); MEAN CORPUSCULAR HEMOGLOBIN 28.1 pg (27.0-31.0); MEAN CORPUSCULAR HGB CONC 32.1 g/dL (33.0-37.0); MEAN PLATELET VOLUME 8.8 fL (7.2-11.7); MONO # 1.2 K/uL (0.0-0.8); MONO % 9.4 % (0.0-10.0); NEUT # 9.2 K/uL (1.8-7.0); NEUT % 73.5 % (50.0-75.0); RBC 4.18 Mil/uL (3.80-5.20); RED CELL DISTRIBUTION WIDTH 14.2 % (11.5-14.5); WHITE BLOOD COUNT 12.5 K/uL (4.8-10.8)
[2017-09-07 12:29] LABS: ABG ALLEN TEST PO; ARTERIAL BLOOD GAS HCO3 27.2 mmol/L (21-28); ARTERIAL BLOOD GAS HEMOGLOBIN 11.5 g/dL (11.7-17.4); ARTERIAL BLOOD GAS O2 SAT 98.8 % (95-98); ARTERIAL BLOOD GAS PCO2 93 mm/Hg (35-45); ARTERIAL BLOOD GAS PH 7.17 (7.35-7.45); ARTERIAL BLOOD GAS PO2 102 mm/Hg (80-100); ARTERIAL BLOOD GAS TCO2 36.8 mmol/L (22-28)
[2017-09-07 12:38] LABS: ALB/GLOB RATIO 1.1 (1.0-2.1); ALBUMIN 3.9 g/dL (3.5-5.0); ALT/SGPT 14 U/L (9-52); AST/SGOT 17 U/L (14-36); BLOOD UREA NITROGEN 23 mg/dL (7-17); CALCIUM 8.4 mg/dl (8.6-10.4); GFR AFRICAN-AMERICAN > 60; GFR NON-AFRICAN AMERICAN > 60
[2017-09-07 12:45] LABS: B-TYPE NATRIURETIC PEPTIDE 220 pg/mL (0-900)
--- NOTE | 2017-09-07 12:54 | C.PDOC ---
History Of Present Illness 72 y/o female sent [facility] because of altered mental status and low pulse-ox. Patient has known hx of COPD. Has an order for BiPAP, and given prn as needed. Pt was previously diagnosed with pneumonia earlier this month and was treated with levaquin. Patient denies fever or cough at this time. According to nursing, on arrival patient was awake and alert, able to speech and answer questions. Time Seen by Provider: 09/07/17 11:44 Chief Complaint (Nursing): Respiratory Distress History Per: Patient History/Exam Limitations: no limitations Onset/Duration Of Symptoms: Hrs Current Symptoms Are (Timing): Still Present Associated Symptoms: Other (Altered mental status). denies: Fever, Productive Cough Recent travel outside of the [place]: No Past Medical History Reviewed: Historical Data, Nursing Documentation, Vital Signs Vital Signs: Last Vital Signs Temp Pulse 74 09/07/17 14:11 Resp 18 09/07/17 14:11 BP 105/42 L 09/07/17 14:11 Pulse Ox 100 09/07/17 14:21 - Medical History PMH: Anemia, Anxiety, Arthritis, Bipolar Disorder, COPD, Depression, HTN, Hypothyroidism, Parkinson's Disease, Sleep Apnea (on Bipap) - [employer] Procedures ASSISTANCE WITH RESPIRATORY VENTILATION, 24-96 HRS, CPAP (07/14/17) CONTINUOUS INVASIVE MECHANICAL VENTILATION <96 CONSEC HRS (12/29/12) CONTINUOUS INVASIVE MECHANICAL VENTILATION =/>96 CONSEC HRS (02/28/13) DX ULTRASOUND-HEART (08/29/13) EXCISION OF RIGHT BREAST, OPEN APPROACH, DIAGNOSTIC (09/18/15) INCIS W REM OF FORIEGN BODY OR DEV FROM SKIN & SUBCUT TISSUE (08/29/13) INSERT ENDOTRACHEAL TUBE (02/28/13) INSERT INDWELLING CATH (12/26/12) INSERTION OF ENDOTRACHEAL AIRWAY INTO TRACHEA, VIA OPENING (07/14/17) INSERTION OF INFUSION DEV INTO SUP VENA CAVA, PERC APPROACH (10/21/16) NON-INVASIVE MECHANICAL VENTILATION (08/29/13) RESPIRATORY VENTILATION, 24-96 CONSECUTIVE HOURS (07/14/17) Family History: States: Unknown Family Hx - Social History Hx Tobacco Use: (Unknown) Hx Alcohol Use: No Hx Substance Use: No - Immunization History Hx Tetanus Toxoid Vaccination: No Hx Influenza Vaccination: No Hx Pneumococcal Vaccination: No (05/28/2009) Review Of Systems Constitutional: Positive for: Other (Low pulse-ox). Negative for: Fever Respiratory: Negative for: Cough Gastrointestinal: Negative for: Nausea, Vomiting, Diarrhea Neurological: Positive for: Altered Mental Status. Negative for: Weakness, Numbness Physical Exam - Physical Exam Appears: Non-toxic, No Acute Distress Skin: Warm, Dry Head: Atraumatic, Normacephalic Eye(s): bilateral: Normal Inspection Nose: Other (Pulse 80% 2L; nasal cannula) Oral Mucosa: Moist Neck: Supple Chest: Symmetrical, No Tenderness Cardiovascular: Rhythm Regular Respiratory: Normal Breath Sounds, No Rales, No Rhonchi, No Wheezing Gastrointestinal/Abdominal: Soft, No Tenderness, Other (Obese ) Extremity: Normal ROM, No Tenderness, No Swelling Extremity: Bilateral: Normal Color And Temperature, Normal ROM Neurological/Psych: Oriented x3, Normal Speech, Normal Cognition, Other (no focal deficits) ED Course And Treatment - Laboratory Results Result Diagrams: 09/07/17 12:15 09/07/17 12:15 Lab Interpretation: Abnormal (WBC 12.5, Na 129, Cl 90, BUN 23 pCO2 93, pO2 102 pH 7.17 on BIPAP 50%) ECG: Interpreted By Me ECG Rhythm: Sinus Rhythm ECG Interpretation: No Acute Changes O2 Sat by Pulse Oximetry: 100 (RA) Pulse Ox Interpretation: Normal - Radiology CXR: Viewed By Me, Read By Radiologist CXR Interpretation: Yes: Cardiomegaly Progress Note: Ordered EKG, BG, blood work, CXR, and BIPAP procedure. 1:00 O2 on BIPAP lowered to 35%, Pulse ox remains 99%. will repeat ABG. Reevaluation Time: 14:33 Reassessment Condition: Unchanged - Physician Consult Information Time Consulting Physician Contacted: 14:20 Physician Contacted: Hayden Tovar Jr. Outcome Of Conversation: Patient is well known to him and has a history of frequent episodes of hypercapnia. she will be admitted for pulmonary evaluation. Consultation with Dr Ousmane talavera. Disposition - Disposition Disposition: HOSPITALIZED Disposition Time: 14:34 Condition: FAIR - POA Present On Arrival: None - Clinical Impression Clinical Impression: COPD (chronic obstructive pulmonary disease), Hypercapnic acidosis - Scribe Statement The provider has reviewed the documentation as recorded by the Guerreroibjohn Poole All medical record entries made by the Scribe were at my direction and personally dictated by me. I have reviewed the chart and agree that the record accurately reflects my personal performance of the history, physical exam, medical decision making, and the department course for this patient. I have also personally directed, reviewed, and agree with the discharge instructions and disposition.
--- NOTE | 2017-09-07 13:53 | RAD ---
PROCEDURE: CHEST RADIOGRAPH, 1 VIEW HISTORY: SOB COMPARISON: 07/17/2017 FINDINGS: LUNGS: Clear. PLEURA: No pneumothorax or pleural fluid seen. CARDIOVASCULAR: Mild cardiomegaly. No congestive change. OSSEOUS STRUCTURES: No significant abnormalities. VISUALIZED UPPER ABDOMEN: Normal. OTHER FINDINGS: None. IMPRESSION: No active disease.
[2017-09-07 15:11] LABS: ARTERIAL BLOOD GAS HEMOGLOBIN 11.9 g/dL (11.7-17.4)
--- NOTE | 2017-09-07 15:23 | CP.PCM.HP ---
<Carlos Manuel Owens - Last Filed: 09/07/17 15:20> History of Present Illness - History of Present Illness History of Present Illness: PGY2 Resident - Medicine H&P CC: HPI: 72 y/o [facility] sent from [facility] because of altered mental status and low pulse-ox. Patient has known hx of COPD. Has an order for BiPAP, and given prn as needed. Pt was previously diagnosed with pneumonia earlier this month and was treated with levaquin. Patient denies fever or cough at this time. According to nursing, on arrival patient was awake and alert, able to speech and answer questions. PMHx: Anemia, Anxiety, Arthritis, Bipolar Disorder, COPD, Depression, HTN, Hypothyroidism, Parkinson's, Sleep Apnea (on Bipap) (As per chart review) PSHx: Right knee fusion, 1 ovary removed, uterine/ovarian cyst removal, C- sections, hysterectomy (As per chart review) FHx: HTN-mother, aunt, uncle; DM-son; Breast cysts-mother. (As per chart review) Medications: Please refer to the chart Allergies: Cephalosporins, penicillins, clonazepam, mustard (As per maraim review) Social History: Smoked 5 cigs/day for 40 yrs, quit 10 yrs ago. Denies EtOH and drug use (As per mariam review) PMD: Dr. Tovar Review of Systems: -Gen: denies fever, chills, headache, lethargy, weakness. -HEENT: denies dizziness, change in vision, change in hearing, sore throat, dysphagia, nasal congestion, mucous. -Cardio: denies chest pain, palpitations, lower extremity edema, orthopnea. -Resp: denies cough, dyspnea, hemoptysis, wheezing, pain on inspiration. -GI: denies abdominal pain, nausea/vomiting, diarrhea/constipation, hematochezia , hematemesis. -: denies dysuria, urinary freq, incontinence, hematuria, change in urinary stream. -MSK: denies back pain, muscle weakness, radiating pain. -Skin: denies itching, rash, lesions. -Neuro: denies confusion, numbness, tingling, focal weakness, radicular pain, syncope. -Psych: denies anxiety, depression, H/I, S/I, hallucinations. Past Patient History - Infectious Disease Hx of Infectious Diseases: VRE - Tetanus Immunizations Tetanus Immunization: Unknown - Past Medical History & Family History Past Medical History?: Yes - Past Social History Smoking Status: Former Smoker - CARDIAC Hx Hypertension: Yes - PULMONARY Hx Chronic Obstructive Pulmonary Disease (COPD): Yes Hx Sleep Apnea: Yes (on Bipap) - NEUROLOGICAL Hx Parkinson's Disease: Yes - HEENT Hx HEENT Problems: No - RENAL Hx Chronic Kidney Disease: No - ENDOCRINE/METABOLIC Hx Hypothyroidism: Yes - HEMATOLOGICAL/ONCOLOGICAL Hx Anemia: Yes - INTEGUMENTARY Hx Dermatological Problems: No - MUSCULOSKELETAL/RHEUMATOLOGICAL Hx Arthritis: Yes - GASTROINTESTINAL Hx Gastrointestinal Disorders: Yes Hx Constipation: Yes Hx Gastroesophageal Reflux: Yes - GENITOURINARY/GYNECOLOGICAL Hx Genitourinary Disorders: Yes Hx Incontinence: Yes Hx Urinary Tract Infection: Yes - PSYCHIATRIC Hx Anxiety: Yes Hx Bipolar Disorder: Yes Hx Depression: Yes Hx Substance Use: No - SURGICAL HISTORY Hx Surgeries: Yes Hx Orthopedic Surgery: Yes Other/Comment: right knee replacement 2014; right knee prosthesis removal s/p infection 2014 - ANESTHESIA Hx Anesthesia: Yes Hx Anesthesia Reactions: No Hx Malignant Hyperthermia: No Meds Allergies/Adverse Reactions: Allergies Allergy/AdvReac Type Severity Reaction Status Date / Time Cephalosporins Allergy Intermediate RASH Verified 09/07/17 11:46 Penicillins Allergy Intermediate RASH Verified 09/07/17 11:46 clonazepam [From Klonopin] Allergy Verified 09/07/17 11:46 mustard Allergy Intermediate RASH Uncoded 04/17/17 18:44 Results - Vital Signs Recent Vital Signs: Last Vital Signs Temp Pulse 74 09/07/17 14:11 Resp 18 09/07/17 14:11 BP 105/42 L 09/07/17 14:11 Pulse Ox 100 09/07/17 14:35 - Labs Result Diagrams: 09/07/17 12:15 09/07/17 12:15 Labs: Laboratory Results - last 24 hr 09/07/17 09/07/17 09/07/17 12:15 12:15 12:25 WBC 12.5 H RBC 4.18 Hgb 11.7 Hct 36.6 MCV 87.5 MCH 28.1 MCHC 32.1 L RDW 14.2 Plt Count 291 MPV 8.8 Neut % (Auto) 73.5 Lymph % (Auto) 15.2 L [place] % (Auto) 9.4 Eos % (Auto) 1.0 Baso % (Auto) 0.9 Neut # 9.2 H Lymph # 1.9 [place] # 1.2 H Eos # 0.1 Baso # 0.1 Puncture Site Lra pCO2 93 H* pO2 102 H HCO3 27.2 ABG pH 7.17 L* ABG Total CO2 36.8 H ABG O2 Saturation 98.8 H ABG Base Excess 3.0 ABG Hemoglobin 11.5 L ABG Carboxyhemoglobin 2.4 H POC ABG HHb (Measured) 1.2 ABG Methemoglobin 1.1 Donta Test Po A-a O2 Difference 138.0 Respiratory Index 1.4 Hgb O2 Saturation 95.2 Vent Mode Bipap FiO2 50.0 Inspiratory BiPAP 12 Expiratory BiPAP 6 Crit Value Called To md Raphael Crit Value Called By Mathew torres,oil well services supervisor Crit Value Read Back Y Blood Gas Notified Time 1235 Sodium 129 L Potassium 4.6 Chloride 90 L Carbon Dioxide 32 H Anion Gap 12 BUN 23 H Creatinine 0.9 Est GFR ( Amer) > 60 Est GFR (Non-Af Amer) > 60 Random Glucose 158 H Calcium 8.4 L Total Bilirubin 0.4 AST 17 ALT 14 Alkaline Phosphatase 50 Troponin I < 0.0120 NT-Pro-B Natriuret Pep 220 Total Protein 7.3 Albumin 3.9 Globulin 3.4 Albumin/Globulin Ratio 1.1 09/07/17 15:07 WBC RBC Hgb Hct MCV MCH MCHC RDW Plt Count MPV Neut % (Auto) Lymph % (Auto) [place] % (Auto) Eos % (Auto) Baso % (Auto) Neut # Lymph # [place] # Eos # Baso # Puncture Site Rra pCO2 104 H* pO2 74 L HCO3 27.6 ABG pH 7.14 L* ABG Total CO2 38.6 H ABG O2 Saturation 96.2 ABG Base Excess 3.5 H ABG Hemoglobin 11.9 ABG Carboxyhemoglobin 2.3 H POC ABG HHb (Measured) 3.7 ABG Methemoglobin 1.3 Donta Test Po A-a O2 Difference 46.0 Respiratory Index 0.6 Hgb O2 Saturation 92.7 L Vent Mode Bipap FiO2 35.0 Inspiratory BiPAP 16 Expiratory BiPAP 6 Crit Value Called To md Raphael Crit Value Called By Venkat torres,oil well services supervisor Crit Value Read Back Y Blood Gas Notified Time 1515 Sodium Potassium Chloride Carbon Dioxide Anion Gap BUN Creatinine Est GFR ( Amer) Est GFR (Non-Af Amer) Random Glucose Calcium Total Bilirubin AST ALT Alkaline Phosphatase Troponin I NT-Pro-B Natriuret Pep Total Protein Albumin Globulin Albumin/Globulin Ratio Assessment & Plan - Date & Time Date: 09/07/17 Time: 15:21 <Niyah Reyes - Last Filed: 09/07/17 15:38> Present on Admission - Present on Admission Any Indicators Present on Admission: No Results - Vital Signs Recent Vital Signs: Last Vital Signs Temp Pulse 69 09/07/17 15:30 Resp 16 09/07/17 15:30 BP 107/49 L 09/07/17 15:30 Pulse Ox 95 09/07/17 15:30 - Labs Result Diagrams: 09/07/17 12:15 09/07/17 12:15 Labs: Laboratory Results - last 24 hr 09/07/17 09/07/17 09/07/17 12:15 12:15 12:25 WBC 12.5 H RBC 4.18 Hgb 11.7 Hct 36.6 MCV 87.5 MCH 28.1 MCHC 32.1 L RDW 14.2 Plt Count 291 MPV 8.8 Neut % (Auto) 73.5 Lymph % (Auto) 15.2 L [place] % (Auto) 9.4 Eos % (Auto) 1.0 Baso % (Auto) 0.9 Neut # 9.2 H Lymph # 1.9 [place] # 1.2 H Eos # 0.1 Baso # 0.1 Puncture Site Lra pCO2 93 H* pO2 102 H HCO3 27.2 ABG pH 7.17 L* ABG Total CO2 36.8 H ABG O2 Saturation 98.8 H ABG Base Excess 3.0 ABG Hemoglobin 11.5 L ABG Carboxyhemoglobin 2.4 H POC ABG HHb (Measured) 1.2 ABG Methemoglobin 1.1 Donta Test Po A-a O2 Difference 138.0 Respiratory Index 1.4 Hgb O2 Saturation 95.2 Vent Mode Bipap FiO2 50.0 Inspiratory BiPAP 12 Expiratory BiPAP 6 Crit Value Called To md Raphael Crit Value Called By Mathew torres,oil well services supervisor Crit Value Read Back Y Blood Gas Notified Time 1235 Sodium 129 L Potassium 4.6 Chloride 90 L Carbon Dioxide 32 H Anion Gap 12 BUN 23 H Creatinine 0.9 Est GFR ( Amer) > 60 Est GFR (Non-Af Amer) > 60 Random Glucose 158 H Calcium 8.4 L Total Bilirubin 0.4 AST 17 ALT 14 Alkaline Phosphatase 50 Troponin I < 0.0120 NT-Pro-B Natriuret Pep 220 Total Protein 7.3 Albumin 3.9 Globulin 3.4 Albumin/Globulin Ratio 1.1 09/07/17 15:07 WBC RBC Hgb Hct MCV MCH MCHC RDW Plt Count MPV Neut % (Auto) Lymph % (Auto) [place] % (Auto) Eos % (Auto) Baso % (Auto) Neut # Lymph # [place] # Eos # Baso # Puncture Site Rra pCO2 104 H* pO2 74 L HCO3 27.6 ABG pH 7.14 L* ABG Total CO2 38.6 H ABG O2 Saturation 96.2 ABG Base Excess 3.5 H ABG Hemoglobin 11.9 ABG Carboxyhemoglobin 2.3 H POC ABG HHb (Measured) 3.7 ABG Methemoglobin 1.3 Donta Test Po A-a O2 Difference 46.0 Respiratory Index 0.6 Hgb O2 Saturation 92.7 L Vent Mode Bipap FiO2 35.0 Inspiratory BiPAP 16 Expiratory BiPAP 6 Crit Value Called To Er, Crit Value Called By Venkat torres,elieser Crit Value Read Back Y Blood Gas Notified Time 1515 Sodium Potassium Chloride Carbon Dioxide Anion Gap BUN Creatinine Est GFR ( Amer) Est GFR (Non-Af Amer) Random Glucose Calcium Total Bilirubin AST ALT Alkaline Phosphatase Troponin I NT-Pro-B Natriuret Pep Total Protein Albumin Globulin Albumin/Globulin Ratio Addendum Addendum: 09/07/17 15:37 Repeat ABG showing worsening hypercapnia and acidosis. Case discussed with Dr Romeo and Dr Burton. Patient to be transferred to ICU. BIPAP settings changed to 20/10 with rate 18. Patient still responsive.
[2017-09-07 17:54] LABS: ABG ALLEN TEST POS; ARTERIAL BLOOD GAS HCO3 26.5 mmol/L (21-28); ARTERIAL BLOOD GAS O2 SAT 97.5 % (95-98); ARTERIAL BLOOD GAS PCO2 87 mm/Hg (35-45); ARTERIAL BLOOD GAS PH 7.19 (7.35-7.45); ARTERIAL BLOOD GAS PO2 77 mm/Hg (80-100); ARTERIAL BLOOD GAS TCO2 35.9 mmol/L (22-28)
--- NOTE | 2017-09-07 18:16 | CP.PCM.CON ---
History of Present Illness - History of Present Illness History of Present Illness: 72yo F. PMHx COPD, parkinson's disease, hypothyroidism, anemia of chronic disease, arthritis, GERD, anxiety, depression, bipolar disorder, HTN. p/w recurrent acute respiratory failure with hypercarbia. Review of Systems - Review of Systems All systems: reviewed and no additional remarkable complaints except - Respiratory Respiratory: Dyspnea Past Patient History - Infectious Disease Hx of Infectious Diseases: VRE - Tetanus Immunizations Tetanus Immunization: Unknown - Past Medical History & Family History Past Medical History?: Yes - Past Social History Smoking Status: Former Smoker - CARDIAC Hx Hypertension: Yes - PULMONARY Hx Chronic Obstructive Pulmonary Disease (COPD): Yes Hx Sleep Apnea: Yes (on Bipap) - NEUROLOGICAL Hx Parkinson's Disease: Yes - HEENT Hx HEENT Problems: No - RENAL Hx Chronic Kidney Disease: No - ENDOCRINE/METABOLIC Hx Hypothyroidism: Yes - HEMATOLOGICAL/ONCOLOGICAL Hx Anemia: Yes - INTEGUMENTARY Hx Dermatological Problems: No - MUSCULOSKELETAL/RHEUMATOLOGICAL Hx Arthritis: Yes - GASTROINTESTINAL Hx Gastrointestinal Disorders: Yes Hx Constipation: Yes Hx Gastroesophageal Reflux: Yes - GENITOURINARY/GYNECOLOGICAL Hx Genitourinary Disorders: Yes Hx Incontinence: Yes Hx Urinary Tract Infection: Yes - PSYCHIATRIC Hx Anxiety: Yes Hx Bipolar Disorder: Yes Hx Depression: Yes Hx Substance Use: No - SURGICAL HISTORY Hx Surgeries: Yes Hx Orthopedic Surgery: Yes Other/Comment: right knee replacement 2014; right knee prosthesis removal s/p infection 2014 - ANESTHESIA Hx Anesthesia: Yes Hx Anesthesia Reactions: No Hx Malignant Hyperthermia: No Meds Allergies/Adverse Reactions: Allergies Allergy/AdvReac Type Severity Reaction Status Date / Time Cephalosporins Allergy Intermediate RASH Verified 09/07/17 11:46 Penicillins Allergy Intermediate RASH Verified 09/07/17 11:46 clonazepam [From Klonopin] Allergy Verified 09/07/17 11:46 mustard Allergy Intermediate RASH Uncoded 04/17/17 18:44 Physical Exam - Head Exam Head Exam: ATRAUMATIC, NORMAL INSPECTION, NORMOCEPHALIC - Eye Exam Eye Exam: EOMI, Normal appearance, PERRL - ENT Exam ENT Exam: Mucous Membranes Moist, Normal Exam - Respiratory Exam Respiratory Exam: Clear to Auscultation Bilateral, NORMAL BREATHING PATTERN - Cardiovascular Exam Cardiovascular Exam: REGULAR RHYTHM - GI/Abdominal Exam GI & Abdominal Exam: Normal Bowel Sounds, Soft. absent: Tenderness - Neurological Exam Neurological exam: Alert, CN II-XII Intact, Normal Gait, Oriented x3, Reflexes Normal - Psychiatric Exam Psychiatric exam: Anxious, Normal Affect Results - Vital Signs Recent Vital Signs: Last Vital Signs Temp Pulse 71 09/07/17 15:40 Resp 16 09/07/17 15:30 BP 107/49 L 09/07/17 15:30 Pulse Ox 95 09/07/17 15:30 - Labs Result Diagrams: 09/07/17 12:15 09/07/17 12:15 Labs: Laboratory Results - last 24 hr 09/07/17 09/07/17 09/07/17 12:15 12:15 12:25 WBC 12.5 H RBC 4.18 Hgb 11.7 Hct 36.6 MCV 87.5 MCH 28.1 MCHC 32.1 L RDW 14.2 Plt Count 291 MPV 8.8 Neut % (Auto) 73.5 Lymph % (Auto) 15.2 L [place] % (Auto) 9.4 Eos % (Auto) 1.0 Baso % (Auto) 0.9 Neut # 9.2 H Lymph # 1.9 [place] # 1.2 H Eos # 0.1 Baso # 0.1 Puncture Site Lra pCO2 93 H* pO2 102 H HCO3 27.2 ABG pH 7.17 L* ABG Total CO2 36.8 H ABG O2 Saturation 98.8 H ABG Base Excess 3.0 ABG Hemoglobin 11.5 L ABG Carboxyhemoglobin 2.4 H POC ABG HHb (Measured) 1.2 ABG Methemoglobin 1.1 Donta Test Po A-a O2 Difference 138.0 Respiratory Index 1.4 Hgb O2 Saturation 95.2 Vent Mode Bipap FiO2 50.0 Inspiratory BiPAP 12 Expiratory BiPAP 6 Crit Value Called To md Raphael Crit Value Called By Mathew torres,computer information systems instructor Crit Value Read Back Y Blood Gas Notified Time 1235 Sodium 129 L Potassium 4.6 Chloride 90 L Carbon Dioxide 32 H Anion Gap 12 BUN 23 H Creatinine 0.9 Est GFR ( Amer) > 60 Est GFR (Non-Af Amer) > 60 Random Glucose 158 H Calcium 8.4 L Total Bilirubin 0.4 AST 17 ALT 14 Alkaline Phosphatase 50 Troponin I < 0.0120 NT-Pro-B Natriuret Pep 220 Total Protein 7.3 Albumin 3.9 Globulin 3.4 Albumin/Globulin Ratio 1.1 09/07/17 15:07 WBC RBC Hgb Hct MCV MCH MCHC RDW Plt Count MPV Neut % (Auto) Lymph % (Auto) [place] % (Auto) Eos % (Auto) Baso % (Auto) Neut # Lymph # [place] # Eos # Baso # Puncture Site Rra pCO2 87 H* pO2 77 L HCO3 26.5 ABG pH 7.19 L* ABG Total CO2 35.9 H ABG O2 Saturation 97.5 ABG Base Excess 2.2 ABG Hemoglobin 11.9 ABG Carboxyhemoglobin 2.3 H POC ABG HHb (Measured) 3.7 ABG Methemoglobin 1.3 Donta Test Pos A-a O2 Difference 64.0 Respiratory Index 0.8 Hgb O2 Saturation 92.7 L Vent Mode Bipap FiO2 35.0 Inspiratory BiPAP 20 Expiratory BiPAP 10 Crit Value Called To Dr to Crit Value Called By [facility] Crit Value Read Back Y Blood Gas Notified Time 1754 Sodium Potassium Chloride Carbon Dioxide Anion Gap BUN Creatinine Est GFR ( Amer) Est GFR (Non-Af Amer) Random Glucose Calcium Total Bilirubin AST ALT Alkaline Phosphatase Troponin I NT-Pro-B Natriuret Pep Total Protein Albumin Globulin Albumin/Globulin Ratio Assessment & Plan (1) Acute respiratory failure with hypoxia and hypercapnia Assessment and Plan: 72yo F. PMHx COPD, parkinson's disease, hypothyroidism, anemia of chronic disease, arthritis, GERD, anxiety, depression, bipolar disorder, HTN. p/w recurrent acute respiratory failure with hypercarbia. Neuro: alert and oriented x 3 Pulm: acute respiratory failure with hypercarbia and hypoxia, continue on BIPAP. Risk for intubation is high. Steroids, duonebs. CV: hemodynamically stable. Hem: anemia of chronic disease, is stable. Renal: no acute issues Endo: hypothyroidism continue levothyroxine GI: NPO while on BIPAP ID: no acute issues. DVT proph - lovenox GI proph - protonix for GERD Code status - full code Critical Care Time spent 35 minutes Multi-disciplinary rounds were performed with house staff, nursing, speech therapy, respiratory therapy, pharmacy and nutrition with integrated input from the primary team/attending and other consulting services. The documented time is cumulative and includes review of patient data/exams/labs/chart review and examination of the patient on rounds and throughout the day; time is exclusive of any procedures or teaching time. Status: Acute
--- NOTE | 2017-09-07 18:41 | CP.PCM.HP ---
History of Present Illness - History of Present Illness History of Present Illness: PGY2 Resident - Medicine H&P HPI: This 72 year old female with PMHx of Anemia, Anxiety, Arthritis, Bipolar Disorder, COPD, Depression, HTN, Hypothyroidism, Parkinson's, Sleep Apnea (on Bipap) - was sent from her [facility] secondary to AMS and low pulse-ox. Per chart review, patient was diagnosed with pneumonia earlier this month and was treated with Levaquin. She has a long-standing history of frequent hypercapnic episodes requiring hospital admission. She was placed on BiPAP in the ED, however repeat ABG showed worsening hypercapnia and acidosis. ROS was limited as patient is on BiPAP, lethargic, and SOB. Due to the severity of her presentation, she was admitted directly to the ICU. PMHx: Anemia, Anxiety, Arthritis, Bipolar Disorder, COPD, Depression, HTN, Hypothyroidism, Parkinson's, Sleep Apnea (on Bipap) (per chart review) PSHx: Right knee fusion, 1 ovary removed, uterine/ovarian cyst removal, C- sections, hysterectomy (per chart review) FHx: HTN-mother, aunt, uncle; DM-son; Breast cysts-mother. (per chart review) Meds: Please refer to the chart Allergies: Cephalosporins, penicillins, clonazepam, mustard (per mariam review) SocHx: Smoked 5 cigs/day for 40 yrs, quit 10 yrs ago. Denies EtOH and drug use ( per mariam review) PMD: Dr. Tovar Present on Admission - Present on Admission Any Indicators Present on Admission: No History of DVT/PE: No History of Uncontrolled Diabetes: No Review of Systems - Review of Systems Systems not reviewed;Unavailable: Respiratory Distress Past Patient History - Infectious Disease Hx of Infectious Diseases: VRE - Tetanus Immunizations Tetanus Immunization: Unknown - Past Medical History & Family History Past Medical History?: Yes - Past Social History Smoking Status: Former Smoker - CARDIAC Hx Hypertension: Yes - PULMONARY Hx Chronic Obstructive Pulmonary Disease (COPD): Yes Hx Sleep Apnea: Yes (on Bipap) - NEUROLOGICAL Hx Parkinson's Disease: Yes - HEENT Hx HEENT Problems: No - RENAL Hx Chronic Kidney Disease: No - ENDOCRINE/METABOLIC Hx Hypothyroidism: Yes - HEMATOLOGICAL/ONCOLOGICAL Hx Anemia: Yes - INTEGUMENTARY Hx Dermatological Problems: No - MUSCULOSKELETAL/RHEUMATOLOGICAL Hx Arthritis: Yes - GASTROINTESTINAL Hx Gastrointestinal Disorders: Yes Hx Constipation: Yes Hx Gastroesophageal Reflux: Yes - GENITOURINARY/GYNECOLOGICAL Hx Genitourinary Disorders: Yes Hx Incontinence: Yes Hx Urinary Tract Infection: Yes - PSYCHIATRIC Hx Anxiety: Yes Hx Bipolar Disorder: Yes Hx Depression: Yes Hx Substance Use: No - SURGICAL HISTORY Hx Surgeries: Yes Hx Orthopedic Surgery: Yes Other/Comment: right knee replacement 2014; right knee prosthesis removal s/p infection 2014 - ANESTHESIA Hx Anesthesia: Yes Hx Anesthesia Reactions: No Hx Malignant Hyperthermia: No Meds Allergies/Adverse Reactions: Allergies Allergy/AdvReac Type Severity Reaction Status Date / Time Cephalosporins Allergy Intermediate RASH Verified 09/07/17 11:46 Penicillins Allergy Intermediate RASH Verified 09/07/17 11:46 clonazepam [From Klonopin] Allergy Verified 09/07/17 11:46 mustard Allergy Intermediate RASH Uncoded 04/17/17 18:44 Physical Exam - Additional Findings Additional findings: - Constitutional Appears: Chronically Ill - Eye Exam Eye Exam: PERRL - ENT Exam Additional comments: on BiPAP - Respiratory Exam Respiratory Exam: Decreased Breath Sounds (2/2 body habitus ), Clear to Auscultation Bilateral. absent: Rales, Rhonchi, Wheezes Additional comments: On BiPAP, short of breath - Cardiovascular Exam Cardiovascular Exam: REGULAR RHYTHM, +S1, +S2. absent: Bradycardia, Tachycardia , Diastolic murmur, Gallop, Rubs, Systolic Murmur - GI/Abdominal Exam GI & Abdominal Exam: Normal Bowel Sounds, Soft Additional comments: Obese abdomen - Extremities Exam Extremities exam: Positive for: normal inspection - Neurological Exam Neurological exam: Altered, Oriented x3 Note- lethargic - Skin Skin Exam: Dry, Intact, Normal Color, Cool Results - Vital Signs Recent Vital Signs: Last Vital Signs Temp Pulse 75 09/07/17 18:28 Resp 18 09/07/17 18:28 BP 107/51 L 09/07/17 18:28 Pulse Ox 87 L 09/07/17 18:28 - Labs Result Diagrams: 09/07/17 12:15 09/07/17 12:15 Labs: Laboratory Results - last 24 hr 09/07/17 09/07/17 09/07/17 12:15 12:15 12:25 WBC 12.5 H RBC 4.18 Hgb 11.7 Hct 36.6 MCV 87.5 MCH 28.1 MCHC 32.1 L RDW 14.2 Plt Count 291 MPV 8.8 Neut % (Auto) 73.5 Lymph % (Auto) 15.2 L Bacon % (Auto) 9.4 Eos % (Auto) 1.0 Baso % (Auto) 0.9 Neut # 9.2 H Lymph # 1.9 Bacon # 1.2 H Eos # 0.1 Baso # 0.1 Puncture Site Lra pCO2 93 H* pO2 102 H HCO3 27.2 ABG pH 7.17 L* ABG Total CO2 36.8 H ABG O2 Saturation 98.8 H ABG Base Excess 3.0 ABG Hemoglobin 11.5 L ABG Carboxyhemoglobin 2.4 H POC ABG HHb (Measured) 1.2 ABG Methemoglobin 1.1 Donta Test Po A-a O2 Difference 138.0 Respiratory Index 1.4 Hgb O2 Saturation 95.2 Vent Mode Bipap FiO2 50.0 Inspiratory BiPAP 12 Expiratory BiPAP 6 Crit Value Called To Ermd Crit Value Called By Mathew torres,loan review manager Crit Value Read Back Y Blood Gas Notified Time 1235 Sodium 129 L Potassium 4.6 Chloride 90 L Carbon Dioxide 32 H Anion Gap 12 BUN 23 H Creatinine 0.9 Est GFR ( Amer) > 60 Est GFR (Non-Af Amer) > 60 Random Glucose 158 H Calcium 8.4 L Total Bilirubin 0.4 AST 17 ALT 14 Alkaline Phosphatase 50 Troponin I < 0.0120 NT-Pro-B Natriuret Pep 220 Total Protein 7.3 Albumin 3.9 Globulin 3.4 Albumin/Globulin Ratio 1.1 09/07/17 15:07 WBC RBC Hgb Hct MCV MCH MCHC RDW Plt Count MPV Neut % (Auto) Lymph % (Auto) Bacon % (Auto) Eos % (Auto) Baso % (Auto) Neut # Lymph # Bacon # Eos # Baso # Puncture Site Rra pCO2 87 H* pO2 77 L HCO3 26.5 ABG pH 7.19 L* ABG Total CO2 35.9 H ABG O2 Saturation 97.5 ABG Base Excess 2.2 ABG Hemoglobin 11.9 ABG Carboxyhemoglobin 2.3 H POC ABG HHb (Measured) 3.7 ABG Methemoglobin 1.3 Donta Test Pos A-a O2 Difference 64.0 Respiratory Index 0.8 Hgb O2 Saturation 92.7 L Vent Mode Bipap FiO2 35.0 Inspiratory BiPAP 20 Expiratory BiPAP 10 Crit Value Called To Dr to Crit Value Called By Michael christiana Crit Value Read Back Y Blood Gas Notified Time 1754 Sodium Potassium Chloride Carbon Dioxide Anion Gap BUN Creatinine Est GFR ( Amer) Est GFR (Non-Af Amer) Random Glucose Calcium Total Bilirubin AST ALT Alkaline Phosphatase Troponin I NT-Pro-B Natriuret Pep Total Protein Albumin Globulin Albumin/Globulin Ratio Assessment & Plan - Assessment and Plan (Free Text) Assessment: Acute respiratory failure with hypoxia and hypercapnia Patient was high risk and admitted directly to ICU Consult placed to Pulm, Dr. Romeo - help appreciated Continue on BIPAP. Steroids, duonebs. Pantoprazole Sodium (Protonix Inj) 40 mg IVP DAILY [facility] Solu-Medrol 40 mg IVP Q8H [facility] Hypothyroidism Continue Synthroid 75 mcg IVP DAILY [facility] Diabetes Insulin Aspart (Novolog) 0 unit SC Q6 [facility] Insulin Detemir (Levemir) 14 unit SC HS [facility] Leukocytosis WBC 12.5; afebrile - no antibiotics at this time Will monitor - likely 2/2 steroid use Prophylaxis DVT proph - lovenox GI proph - protonix for GERD Code status - full code NPO (on BiPAP) NS 0.9 at 60cc/hr SCDs Case discussed with attending. All medical management as per Dr. Tovar - Date & Time Date: 09/07/17 Time: 15:21
[2017-09-07] MEDS ORDERED: Sodium Chloride 0.9% 1,000 ML IV ONE (19:00)
[2017-09-07] MEDS: Albuterol-Ipratrop 3 mg / 0.5 (3 ml) UD INH SCH (20:29)
--- NOTE | 2017-09-07 20:32 | CP.PCM.CON ---
History of Present Illness - History of Present Illness History of Present Illness: reason for consultation: hypercapnic respiratory failure [id number] female with history of COPD, sleep apnea, bipolar disorder, depression, Parkinson's disease who was transferred from intermediate for altered mental status. Patient found to have elevated pCO2, was placed on BiPAP and admitted to ICU . patient open eyes to tactile stimuli PMHx: Anemia, Anxiety, Arthritis, Bipolar Disorder, COPD, Depression, HTN, Hypothyroidism, Parkinson's, Sleep Apnea (on Bipap) (As per chart review) PSHx: Right knee fusion, 1 ovary removed, uterine/ovarian cyst removal, C- sections, hysterectomy (As per chart review) FHx: HTN-mother, aunt, uncle; DM-son; Breast cysts-mother. (As per chart review) Medications: Please refer to the chart Allergies: Cephalosporins, penicillins, clonazepam, mustard (As per mariam review) Social History: Smoked 5 cigs/day for 40 yrs, quit 10 yrs ago. Denies EtOH and drug use (As per mariam review) Review of Systems - Review of Systems Systems not reviewed;Unavailable: Other (on BiPAP) Past Patient History - Infectious Disease Hx of Infectious Diseases: VRE - Tetanus Immunizations Tetanus Immunization: Unknown - Past Medical History & Family History Past Medical History?: Yes - Past Social History Smoking Status: Former Smoker - CARDIAC Hx Hypertension: Yes - PULMONARY Hx Chronic Obstructive Pulmonary Disease (COPD): Yes Hx Sleep Apnea: Yes (on Bipap) - NEUROLOGICAL Hx Parkinson's Disease: Yes - HEENT Hx HEENT Problems: No - RENAL Hx Chronic Kidney Disease: No - ENDOCRINE/METABOLIC Hx Hypothyroidism: Yes - HEMATOLOGICAL/ONCOLOGICAL Hx Anemia: Yes - INTEGUMENTARY Hx Dermatological Problems: No - MUSCULOSKELETAL/RHEUMATOLOGICAL Hx Arthritis: Yes - GASTROINTESTINAL Hx Gastrointestinal Disorders: Yes Hx Constipation: Yes Hx Gastroesophageal Reflux: Yes - GENITOURINARY/GYNECOLOGICAL Hx Genitourinary Disorders: Yes Hx Incontinence: Yes Hx Urinary Tract Infection: Yes - PSYCHIATRIC Hx Anxiety: Yes Hx Bipolar Disorder: Yes Hx Depression: Yes Hx Substance Use: No - SURGICAL HISTORY Hx Surgeries: Yes Hx Orthopedic Surgery: Yes Other/Comment: right knee replacement 2014; right knee prosthesis removal s/p infection 2014 - ANESTHESIA Hx Anesthesia: Yes Hx Anesthesia Reactions: No Hx Malignant Hyperthermia: No Meds Allergies/Adverse Reactions: Allergies Allergy/AdvReac Type Severity Reaction Status Date / Time Cephalosporins Allergy Intermediate RASH Verified 09/07/17 11:46 Penicillins Allergy Intermediate RASH Verified 09/07/17 11:46 clonazepam [From Klonopin] Allergy Verified 09/07/17 11:46 mustard Allergy Intermediate RASH Uncoded 04/17/17 18:44 - Medications Medications: Current Medications Albuterol/Ipratropium (Duoneb 3 Mg/0.5 Mg (3 Ml) Ud) 3 ml INH RQ6 [facility] Enoxaparin Sodium (Lovenox) 40 mg SC DAILY [facility] Sodium Chloride (Sodium Chloride 0.9%) 1,000 mls @ 60 mls/hr IV CONT ONE Stop: 09/08/17 11:39 Last Admin: 09/07/17 19:58 Dose: 60 mls/hr Insulin Aspart (Novolog) 0 unit SC Q6 [facility] PRN Reason: Protocol Insulin Detemir (Levemir) 14 unit SC HS [facility] Levothyroxine Sodium (Synthroid) 75 mcg IVP DAILY [facility] Methylprednisolone (Solu-Medrol) 40 mg IVP Q8H [facility] Pantoprazole Sodium (Protonix Inj) 40 mg IVP DAILY [facility] Physical Exam - Head Exam Head Exam: ATRAUMATIC, NORMOCEPHALIC - Eye Exam Eye Exam: Normal appearance - ENT Exam ENT Exam: Normal Oropharynx - Respiratory Exam Respiratory Exam: Decreased Breath Sounds - Cardiovascular Exam Cardiovascular Exam: REGULAR RHYTHM Results - Vital Signs Recent Vital Signs: Last Vital Signs Temp 97.6 F 09/07/17 18:51 Pulse 70 09/07/17 20:00 Resp 17 09/07/17 20:00 BP 111/48 L 09/07/17 19:29 Pulse Ox 98 09/07/17 20:00 - Labs Result Diagrams: 09/07/17 12:15 09/07/17 12:15 Labs: Laboratory Results - last 24 hr 09/07/17 09/07/17 09/07/17 12:15 12:15 12:25 WBC 12.5 H RBC 4.18 Hgb 11.7 Hct 36.6 MCV 87.5 MCH 28.1 MCHC 32.1 L RDW 14.2 Plt Count 291 MPV 8.8 Neut % (Auto) 73.5 Lymph % (Auto) 15.2 L H[place] % (Auto) 9.4 Eos % (Auto) 1.0 Baso % (Auto) 0.9 Neut # 9.2 H Lymph # 1.9 Hays # 1.2 H Eos # 0.1 Baso # 0.1 Puncture Site Lra pCO2 93 H* pO2 102 H HCO3 27.2 ABG pH 7.17 L* ABG Total CO2 36.8 H ABG O2 Saturation 98.8 H ABG Base Excess 3.0 ABG Hemoglobin 11.5 L ABG Carboxyhemoglobin 2.4 H POC ABG HHb (Measured) 1.2 ABG Methemoglobin 1.1 Donta Test Po A-a O2 Difference 138.0 Respiratory Index 1.4 Hgb O2 Saturation 95.2 Vent Mode Bipap FiO2 50.0 Inspiratory BiPAP 12 Expiratory BiPAP 6 Crit Value Called To md Raphael Crit Value Called By Mathew torres,hay stacker operator Crit Value Read Back Y Blood Gas Notified Time 1235 Sodium 129 L Potassium 4.6 Chloride 90 L Carbon Dioxide 32 H Anion Gap 12 BUN 23 H Creatinine 0.9 Est GFR ( Amer) > 60 Est GFR (Non-Af Amer) > 60 Random Glucose 158 H Calcium 8.4 L Total Bilirubin 0.4 AST 17 ALT 14 Alkaline Phosphatase 50 Troponin I < 0.0120 NT-Pro-B Natriuret Pep 220 Total Protein 7.3 Albumin 3.9 Globulin 3.4 Albumin/Globulin Ratio 1.1 09/07/17 15:07 WBC RBC Hgb Hct MCV MCH MCHC RDW Plt Count MPV Neut % (Auto) Lymph % (Auto) Hays % (Auto) Eos % (Auto) Baso % (Auto) Neut # Lymph # Hays # Eos # Baso # Puncture Site Rra pCO2 87 H* pO2 77 L HCO3 26.5 ABG pH 7.19 L* ABG Total CO2 35.9 H ABG O2 Saturation 97.5 ABG Base Excess 2.2 ABG Hemoglobin 11.9 ABG Carboxyhemoglobin 2.3 H POC ABG HHb (Measured) 3.7 ABG Methemoglobin 1.3 Donta Test Pos A-a O2 Difference 64.0 Respiratory Index 0.8 Hgb O2 Saturation 92.7 L Vent Mode Bipap FiO2 35.0 Inspiratory BiPAP 20 Expiratory BiPAP 10 Crit Value Called To Dr to Crit Value Called By Michael villeda Crit Value Read Back Y Blood Gas Notified Time 1754 Sodium Potassium Chloride Carbon Dioxide Anion Gap BUN Creatinine Est GFR ( Amer) Est GFR (Non-Af Amer) Random Glucose Calcium Total Bilirubin AST ALT Alkaline Phosphatase Troponin I NT-Pro-B Natriuret Pep Total Protein Albumin Globulin Albumin/Globulin Ratio Assessment & Plan (1) Acute respiratory failure with hypoxia and hypercapnia Status: Acute Comment: continue BiPAP. Followup ABG. Ventilatory support if condition worsen. IV steroids. Nebulizer treatment. empirc antibiotic coverage (2) COPD (chronic obstructive pulmonary disease) Status: Chronic (3) Parkinsons Status: Chronic
[2017-09-07 21:01] LABS: ARTERIAL BLOOD GAS HCO3 27.2 mmol/L (21-28); ARTERIAL BLOOD GAS HEMOGLOBIN 11.3 g/dL (11.7-17.4); ARTERIAL BLOOD GAS O2 SAT 95.6 % (95-98); ARTERIAL BLOOD GAS PCO2 96 mm/Hg (35-45); ARTERIAL BLOOD GAS PH 7.16 (7.35-7.45); ARTERIAL BLOOD GAS PO2 64 mm/Hg (80-100); ARTERIAL BLOOD GAS TCO2 37.1 mmol/L (22-28)
[2017-09-08 02:30] LABS: ABG ALLEN TEST POS; ARTERIAL BLOOD GAS HCO3 12.6 mmol/L (21-28); ARTERIAL BLOOD GAS HEMOGLOBIN 4.7 g/dL (11.7-17.4); ARTERIAL BLOOD GAS O2 SAT 89.5 % (95-98); ARTERIAL BLOOD GAS PCO2 28 mm/Hg (35-45); ARTERIAL BLOOD GAS PO2 43 mm/Hg (80-100); ARTERIAL BLOOD GAS TCO2 11.8 mmol/L (22-28)
[2017-09-08] MEDS: Albuterol-Ipratrop 3 mg / 0.5 (3 ml) UD INH SCH ×4 (02:37→19:50)
[2017-09-08] MEDS: MethylPREDNISolone 40 mg Vial IVP SCH ×3 (03:05→19:39)
[2017-09-08 03:23] LABS: ABG ALLEN TEST POS; ARTERIAL BLOOD GAS HCO3 25.5 mmol/L (21-28); ARTERIAL BLOOD GAS O2 SAT 95.4 % (95-98); ARTERIAL BLOOD GAS PCO2 73 mm/Hg (35-45); ARTERIAL BLOOD GAS PH 7.23 (7.35-7.45); ARTERIAL BLOOD GAS PO2 69 mm/Hg (80-100); ARTERIAL BLOOD GAS TCO2 32.8 mmol/L (22-28)
[2017-09-08] MEDS: (Novolog) Insulin Aspart, Recombinant 100 u/ml 10 ml vial SC SCH ×4 (06:13→18:49)
[2017-09-08 06:52] LABS: HEMOGLOBIN 11.9 g/dL (11.0-16.0); MEAN CELL VOLUME 88.8 fL (81.0-99.0); MEAN CORPUSCULAR HEMOGLOBIN 28.1 pg (27.0-31.0); MEAN CORPUSCULAR HGB CONC 31.7 g/dL (33.0-37.0); MEAN PLATELET VOLUME 9.2 fL (7.2-11.7); RBC 4.24 Mil/uL (3.80-5.20); RED CELL DISTRIBUTION WIDTH 14.5 % (11.5-14.5); WHITE BLOOD COUNT 10.2 K/uL (4.8-10.8)
[2017-09-08 07:08] LABS: ALB/GLOB RATIO 1.1 (1.0-2.1); ALBUMIN 3.8 g/dL (3.5-5.0); CALCIUM 8.4 mg/dl (8.6-10.4); MAGNESIUM 2.2 mg/dL (1.6-2.3)
[2017-09-08] MEDS: Levothyroxine 100 mcg (0.1 mg) Inj IVP SCH (11:30)
[2017-09-08] MEDS: Enoxaparin 40 mg Syringe SC SCH (11:30)
[2017-09-08 12:00] LABS: ABG ALLEN TEST PO; ARTERIAL BLOOD GAS HCO3 27.5 mmol/L (21-28); ARTERIAL BLOOD GAS HEMOGLOBIN 10.7 g/dL (11.7-17.4); ARTERIAL BLOOD GAS O2 SAT 97.7 % (95-98); ARTERIAL BLOOD GAS PCO2 61 mm/Hg (35-45); ARTERIAL BLOOD GAS PH 7.31 (7.35-7.45); ARTERIAL BLOOD GAS PO2 78 mm/Hg (80-100); ARTERIAL BLOOD GAS TCO2 32.6 mmol/L (22-28)
[2017-09-08] MEDS ORDERED: Influenza Virus Vaccine 45 mcg/0.5 ml Syr (36 months - 7 yrs) IM ONE (16:04)
[2017-09-08] MEDS ORDERED: Albuterol-Ipratrop 3 mg / 0.5 (3 ml) UD IH PRN (20:29)
--- NOTE | 2017-09-08 21:18 | CP.PCM.PN ---
Subjective - Date & Time of Evaluation Date of Evaluation: 09/08/17 Time of Evaluation: 07:00 - Subjective Subjective: Medicine Progress Note: Patient was seen and examined at bedside in the AM. Per nurse no acute events overnight. No complaints at this time. Objective - Vital Signs/Intake and Output Vital Signs (last 24 hours): Temp Pulse Resp BP Pulse Ox 98.5 F 76 9 L 159/75 H 100 09/08/17 16:00 09/08/17 20:00 09/08/17 20:00 09/08/17 19:30 09/08/17 20:00 Intake and Output: 09/08/17 09/09/17 18:59 06:59 Intake Total 720 60 Output Total 1350 0 Balance -630 60 - Medications Medications: Current Medications Albuterol/Ipratropium (Duoneb 3 Mg/0.5 Mg (3 Ml) Ud) 3 ml INH RQ6 [facility] Last Admin: 09/08/17 19:50 Dose: 3 ml Albuterol/Ipratropium (Duoneb 3 Mg/0.5 Mg (3 Ml) Ud) 3 ml IH RQ6 PRN PRN Reason: Shortness of Breath Carbidopa/Levodopa (Sinemet) 1 tab PO TID [facility] Carvedilol (Coreg) 25 mg PO BID [facility] Clonidine HCl (Catapres) 0.1 mg PO BID [facility] Docusate Sodium (Colace) 200 mg PO HS [facility] Duloxetine HCl (Cymbalta) 30 mg PO BID [facility] Enalapril Maleate (Vasotec) 5 mg PO DAILY [facility] Enoxaparin Sodium (Lovenox) 40 mg SC DAILY [facility] [place] Last Admin: 09/08/17 11:30 Dose: 40 mg Escitalopram Oxalate (Lexapro) 20 mg PO DAILY [facility] Famotidine (Pepcid) 20 mg PO DAILY [facility] [place] Ferrous Sulfate (Feosol) 325 mg PO BID [facility] Home Med (Buprenorphine [Butrans]) 1 each TD QWK [facility] Hydralazine HCl (Apresoline) 50 mg PO DAILY [facility] [place] Insulin Aspart (Novolog) 0 unit SC Q6 [facility] PRN Reason: Protocol Last Admin: 09/08/17 18:49 Dose: Not Given Insulin Detemir (Levemir) 14 unit SC HS [facility] [place] Isosorbide Mononitrate (Imdur Er) 30 mg PO QAM [facility] Levothyroxine Sodium (Synthroid) 75 mcg IVP DAILY [facility] [place] Last Admin: 09/08/17 11:30 Dose: 75 mcg Levothyroxine Sodium (Synthroid) 150 mcg PO DAILY@0630 [facility] Methylprednisolone (Solu-Medrol) 40 mg IVP Q8H [facility] [place] Last Admin: 09/08/17 19:39 Dose: 40 mg Montelukast Sodium (Singulair) 10 mg PO DAILY [facility] Pantoprazole Sodium (Protonix Inj) 40 mg IVP DAILY [facility] [place] Last Admin: 09/08/17 11:30 Dose: 40 mg Pramipexole Dihydrochloride (Mirapex) 0.25 mg PO HS [facility] - Labs Labs: 09/08/17 06:38 09/08/17 06:40 - Constitutional Appears: No Acute Distress - Head Exam Head Exam: ATRAUMATIC, NORMAL INSPECTION - Eye Exam Eye Exam: EOMI, Normal appearance - ENT Exam ENT Exam: Mucous Membranes Moist - Respiratory Exam Respiratory Exam: Clear to Ausculation Bilateral, NORMAL BREATHING PATTERN Additional comments: bipap - GI/Abdominal Exam GI & Abdominal Exam: Soft, Normal Bowel Sounds. absent: Tenderness Additional comments: obese - Neurological Exam Neurological Exam: Alert, Awake - Psychiatric Exam Psychiatric exam: Normal Affect, Normal Mood Assessment and Plan - Assessment and Plan (Free Text) Assessment: Acute respiratory failure with hypoxia and hypercapnia Patient was high risk and admitted directly to ICU Consult placed to PulDr. Ousmane myrick - help appreciated Continue on BIPAP. Steroids, duonebs. Pantoprazole Sodium (Protonix Inj) 40 mg IVP DAILY [facility] Solu-Medrol 40 mg IVP Q8H [facility] Hypothyroidism Continue Synthroid 75 mcg IVP DAILY [facility] Diabetes Insulin Aspart (Novolog) 0 unit SC Q6 [facility] Insulin Detemir (Levemir) 14 unit SC HS [facility] Leukocytosis WBC 12.5; afebrile - no antibiotics at this time Will monitor - likely 2/2 steroid use Prophylaxis DVT proph - lovenox GI proph - protonix for GERD Code status - full code NPO (on BiPAP) NS 0.9 at 60cc/hr SCDs Case discussed with Dr. Guy Soto PGY-1
[2017-09-08] MEDS: Insulin Detemir 100 units/ml Vial (Levemir) SC SCH (21:40)
[2017-09-09] MEDS: (Novolog) Insulin Aspart, Recombinant 100 u/ml 10 ml vial SC SCH ×4 (00:38→18:24)
[2017-09-09] MEDS: Albuterol-Ipratrop 3 mg / 0.5 (3 ml) UD INH SCH (01:38)
[2017-09-09 02:56] VITALS: RESP 20
[2017-09-09] MEDS: MethylPREDNISolone 40 mg Vial IVP SCH ×3 (03:01→18:22)
[2017-09-09] MEDS ORDERED: Levothyroxine 150 MCG TAB PO SCH (06:30)
[2017-09-09 08:56] VITALS: TEMP 98.4
[2017-09-09] MEDS ORDERED: Influenza Vaccine 60 mcg/0.5 mL SYR (4YR UP) IM ONE (10:00)
[2017-09-09] MEDS: Levothyroxine 100 mcg (0.1 mg) Inj IVP SCH (11:06)
[2017-09-09] MEDS: Enoxaparin 40 mg Syringe SC SCH (11:16)
--- NOTE | 2017-09-09 13:26 | CP.PCM.DIS ---
Provider - Provider Date of Admission: 09/07/17 14:36 Attending physician: Hayden Tovar Jr, MD Primary care physician: Dr. Tovar Consults: Pulmonology: Dr. Romeo Time Spent in preparation of Discharge (in minutes): 45 Hospital Course - Lab Results Lab Results: Micro Results 09/07/17 Unknown Naris MRSA Culture (Admit) - Final MRSA DETECTED Most Recent Lab Values WBC 10.2 K/uL (4.8-10.8) 09/08/17 06:38 RBC 4.24 Mil/uL (3.80-5.20) 09/08/17 06:38 Hgb 11.9 g/dL (11.0-16.0) 09/08/17 06:38 Hct 37.6 % (34.0-47.0) 09/08/17 06:38 MCV 88.8 fL (81.0-99.0) 09/08/17 06:38 MCH 28.1 pg (27.0-31.0) 09/08/17 06:38 MCHC 31.7 g/dL (33.0-37.0) L 09/08/17 06:38 RDW 14.5 % (11.5-14.5) 09/08/17 06:38 Plt Count 292 K/uL (130-400) 09/08/17 06:38 MPV 9.2 fL (7.2-11.7) 09/08/17 06:38 Neut % (Auto) 73.5 % (50.0-75.0) 09/07/17 12:15 Lymph % (Auto) 15.2 % (20.0-40.0) L 09/07/17 12:15 [place] % (Auto) 9.4 % (0.0-10.0) 09/07/17 12:15 Eos % (Auto) 1.0 % (0.0-4.0) 09/07/17 12:15 Baso % (Auto) 0.9 % (0.0-2.0) 09/07/17 12:15 Neut # 9.2 K/uL (1.8-7.0) H 09/07/17 12:15 Lymph # 1.9 K/uL (1.0-4.3) 09/07/17 12:15 [place] # 1.2 K/uL (0.0-0.8) H 09/07/17 12:15 Eos # 0.1 K/uL (0.0-0.7) 09/07/17 12:15 Baso # 0.1 K/uL (0.0-0.2) 09/07/17 12:15 Puncture Site Rra 09/08/17 11:57 pCO2 61 mm/Hg (35-45) H 09/08/17 11:57 pO2 78 mm/Hg (80-100) L 09/08/17 11:57 HCO3 27.5 mmol/L (21-28) 09/08/17 11:57 ABG pH 7.31 (7.35-7.45) L 09/08/17 11:57 ABG Total CO2 32.6 mmol/L (22-28) H 09/08/17 11:57 ABG O2 Saturation 97.7 % (95-98) 09/08/17 11:57 ABG Base Excess 3.3 mmol/L (-2.0-3.0) H 09/08/17 11:57 ABG Hemoglobin 10.7 g/dL (11.7-17.4) L 09/08/17 11:57 ABG Carboxyhemoglobin 2.2 % (0.5-1.5) H 09/08/17 11:57 POC ABG HHb (Measured) 2.2 % (0.0-5.0) 09/08/17 11:57 ABG Methemoglobin 1.1 % (0.0-3.0) 09/08/17 11:57 Donta Test Po 09/08/17 11:57 ABG Potassium 4.6 mmol/L (3.6-5.2) 09/08/17 03:12 A-a O2 Difference 60.0 mm/Hg 09/08/17 11:57 Respiratory Index 0.8 09/08/17 11:57 Hgb O2 Saturation 94.5 % (95.0-98.0) L 09/08/17 11:57 Sodium 135.0 mmol/l (132-148) 09/08/17 03:12 Chloride 101.0 mmol/L (98-107) 09/08/17 03:12 Glucose 152 mg/dl (65-105) H 09/08/17 03:12 Lactate 0.5 mmol/L (0.7-2.1) L 09/08/17 03:12 Vent Mode Bipap 09/08/17 11:57 FiO2 30.0 % 09/08/17 11:57 Tidal Volume 10 09/07/17 08:57 Inspiratory BiPAP 20 09/08/17 11:57 Expiratory BiPAP 10 09/08/17 11:57 Crit Value Called To [facility] agricultural adviser 09/08/17 03:12 Crit Value Called By Yecenia daniel rt 09/08/17 03:12 Crit Value Read Back Y 09/08/17 03:12 Blood Gas Notified Time 320 09/08/17 03:12 Sodium 131 mmol/L (132-148) L 09/08/17 06:40 Potassium 5.2 mmol/L (3.6-5.2) 09/08/17 06:40 Chloride 91 mmol/L (98-107) L 09/08/17 06:40 Carbon Dioxide 32 mmol/L (22-30) H 09/08/17 06:40 Anion Gap 14 (10-20) 09/08/17 06:40 BUN 31 mg/dL (7-17) H 09/08/17 06:40 Creatinine 1.2 mg/dL (0.7-1.2) 09/08/17 06:40 Est GFR ( Amer) 54 09/08/17 06:40 Est GFR (Non-Af Amer) 44 09/08/17 06:40 POC Glucose (mg/dL) 123 mg/dL (65-110) H 09/09/17 06:25 Random Glucose 145 mg/dL (65-105) H 09/08/17 06:40 Calcium 8.4 mg/dl (8.6-10.4) L 09/08/17 06:40 Phosphorus 5.5 mg/dL (2.5-4.5) H 09/08/17 06:40 Magnesium 2.2 mg/dL (1.6-2.3) 09/08/17 06:40 Total Bilirubin 0.4 mg/dL (0.2-1.3) 09/08/17 06:40 AST 27 U/L (14-36) 09/08/17 06:40 ALT 19 U/L (9-52) 09/08/17 06:40 Alkaline Phosphatase 58 U/L (38-126) 09/08/17 06:40 Troponin I < 0.0120 ng/mL (0.00-0.120) 09/07/17 12:15 NT-Pro-B Natriuret Pep 220 pg/mL (0-900) 09/07/17 12:15 Total Protein 7.3 g/dL (6.3-8.3) 09/08/17 06:40 Albumin 3.8 g/dL (3.5-5.0) 09/08/17 06:40 Globulin 3.5 gm/dL (2.2-3.9) 09/08/17 06:40 Albumin/Globulin Ratio 1.1 (1.0-2.1) 09/08/17 06:40 Arterial Blood Potassium 4.6 mmol/L (3.6-5.2) 09/08/17 03:12 - Hospital Course Hospital Course: HPI: This 72 year old female with PMHx of Anemia, Anxiety, Arthritis, Bipolar Disorder, COPD, Depression, HTN, Hypothyroidism, Parkinson's, Sleep Apnea (on Bipap) - was sent from her detention secondary to AMS and low pulse-ox. Per chart review, patient was diagnosed with pneumonia earlier this month and was treated with Levaquin. She has a long-standing history of frequent hypercapnic episodes requiring hospital admission. She was placed on BiPAP in the ED, however repeat ABG showed worsening hypercapnia and acidosis. ROS was limited as patient is on BiPAP, lethargic, and SOB. Due to the severity of her presentation, she was admitted directly to the ICU. PMD: Dr. Tovar PMHx: Anemia, Anxiety, Arthritis, Bipolar Disorder, COPD, Depression, HTN, Hypothyroidism, Parkinson's, Sleep Apnea (on Bipap) (per chart review) PSHx: Right knee fusion, 1 ovary removed, uterine/ovarian cyst removal, C- sections, hysterectomy (per chart review) FHx: HTN-mother, aunt, uncle; DM-son; Breast cysts-mother. (per chart review) Meds: Please refer to the chart Allergies: Cephalosporins, penicillins, clonazepam, mustard (per mariam review) SocHx: Smoked 5 cigs/day for 40 yrs, quit 10 yrs ago. Denies EtOH and drug use ( per mariam review) Hospital Course: Patient was admitted on 09/07/17 for respiratory distress. In the ED, labs were drawn and chest xray was performed. ICU was immediately consulted due to patients high risk of respiratory failure. Chest xray showed no active pulmonary disease. Patient was found to be hypercarbic and placed on BiPAP; steroids and duonebs were started. Pulmonolgy, Dr. Romeo, was consulted and recommended to continue BiPAP, steroids, duonebs and monitor ABGs. Labs showed leukocytosis which was likely secondary to steroid use and trended down to normal range the following day. Patient's history of diabetes and hypothyroidism were monitored and managed throughout hospital stay. Patient improved and was transferred to the floors on the morning of 09/09/17. Patient was seen and examined at bedside. Patient has BiPAP on as needed. Patient was in no respiratory distress and reports feeling better. Patient is stable for transfer to her detention. Patient should continue using BiPAP at detention. Patient must follow up with PMD within one week of discharge. This is a brief summary of the hospital course. Please see EMR for more details. Discharge Exam - Head Exam Head Exam: ATRAUMATIC, NORMAL INSPECTION - Eye Exam Eye Exam: EOMI - ENT Exam ENT Exam: Mucous Membranes Moist - Respiratory Exam Respiratory Exam: Decreased Breath Sounds, NORMAL BREATHING PATTERN. absent: Rales, Rhonchi, Wheezes, Respiratory Distress Additional comments: on BiPAP - Cardiovascular Exam Cardiovascular Exam: REGULAR RHYTHM, +S1, +S2 - GI/Abdominal Exam GI & Abdominal Exam: Normal Bowel Sounds, Soft. absent: Distended, Firm, Guarding, Tenderness Additional comments: Obese abdomen - Extremities Exam Extremities exam: normal inspection - Neurological Exam Neurological exam: Alert, Oriented x3 - Psychiatric Exam Psychiatric exam: Normal Affect, Normal Mood - Skin Skin Exam: Dry, Intact, Normal Color, Warm Discharge Plan - Follow Up Plan Condition: FAIR Disposition: HOME/ ROUTINE Instructions: Diabetic Foot Care (DC), Diabetes Mellitus Type 2 in Adults (DC) , COPD (Chronic Obstructive Pulmonary Disease) (DC), Basic Carbohydrate Counting (DC), Meal Planning with the Plate Method (DC), Meal Planning with Diabetes Exchanges (DC), Chronic Respiratory Failure (DC) Additional Instructions: Patient is stable for discharge to detention. Patient should continue all home medications. Patient should continue to use BiPAP. Patient must follow up with their PMD, Dr. Tovar, within one week of discharge. If symptoms worsen or reoccur, patient should return to the ED. Referrals: Hayden Tovar Jr., MD [Medical Doctor] -
[2017-09-09 16:48] VITALS: PULSE 64; O2SAT 99
--- NOTE | 2017-09-09 18:03 | CP.PCM.PN ---
Subjective - Date & Time of Evaluation Date of Evaluation: 09/09/17 Time of Evaluation: 09:30 Objective - Vital Signs/Intake and Output Vital Signs (last 24 hours): Temp Pulse Resp BP Pulse Ox 98.4 F 64 20 165/80 H 99 09/09/17 15:16 09/09/17 15:16 09/09/17 15:16 09/09/17 15:16 09/09/17 15:16 Intake and Output: 09/09/17 09/09/17 06:59 18:59 Intake Total 480 200 Output Total 200 400 Balance 280 -200 - Medications Medications: Current Medications Albuterol/Ipratropium (Duoneb 3 Mg/0.5 Mg (3 Ml) Ud) 3 ml INH RQ6 [facility] Last Admin: 09/09/17 01:38 Dose: 3 ml Albuterol/Ipratropium (Duoneb 3 Mg/0.5 Mg (3 Ml) Ud) 3 ml IH RQ6 PRN PRN Reason: Shortness of Breath Carbidopa/Levodopa (Sinemet) 1 tab PO TID [facility] Last Admin: 09/09/17 13:26 Dose: 1 tab Carvedilol (Coreg) 25 mg PO BID [facility] Last Admin: 09/09/17 11:26 Dose: 25 mg Clonidine HCl (Catapres) 0.1 mg PO BID [facility] Last Admin: 09/09/17 11:21 Dose: 0.1 mg Docusate Sodium (Colace) 200 mg PO HS [facility] Last Admin: 09/08/17 21:39 Dose: 200 mg Duloxetine HCl (Cymbalta) 30 mg PO BID [facility] Last Admin: 09/09/17 11:26 Dose: 30 mg Enalapril Maleate (Vasotec) 5 mg PO DAILY [facility] Last Admin: 09/09/17 11:21 Dose: 5 mg Enoxaparin Sodium (Lovenox) 40 mg SC DAILY [facility] Last Admin: 09/09/17 11:16 Dose: 40 mg Escitalopram Oxalate (Lexapro) 20 mg PO DAILY [facility] Last Admin: 09/09/17 11:17 Dose: 20 mg Famotidine (Pepcid) 20 mg PO DAILY [facility] Last Admin: 09/09/17 11:20 Dose: 20 mg Ferrous Sulfate (Feosol) 325 mg PO BID [facility] Last Admin: 09/09/17 11:17 Dose: 325 mg Home Med (Buprenorphine [Butrans]) 1 each TD QWK [facility] Hydralazine HCl (Apresoline) 50 mg PO DAILY [facility] Last Admin: 09/09/17 11:26 Dose: Not Given Insulin Aspart (Novolog) 0 unit SC Q6 [facility] PRN Reason: Protocol Last Admin: 09/09/17 12:35 Dose: Not Given Insulin Detemir (Levemir) 14 unit SC HS [facility] Last Admin: 09/08/17 21:40 Dose: Not Given Isosorbide Mononitrate (Imdur Er) 30 mg PO QAM [facility] Last Admin: 09/09/17 11:17 Dose: 30 mg Levothyroxine Sodium (Synthroid) 150 mcg PO DAILY@0630 [facility] Methylprednisolone (Solu-Medrol) 40 mg IVP Q8H [facility] Last Admin: 09/09/17 11:20 Dose: 40 mg Montelukast Sodium (Singulair) 10 mg PO DAILY [facility] Last Admin: 09/09/17 11:24 Dose: 10 mg Pantoprazole Sodium (Protonix Inj) 40 mg IVP DAILY [facility] Last Admin: 09/09/17 11:21 Dose: 40 mg Pramipexole Dihydrochloride (Mirapex) 0.25 mg PO [facility] Last Admin: 09/08/17 21:40 Dose: 0.25 mg - Labs Labs: 09/08/17 06:38 09/08/17 06:40 Assessment and Plan (1) Acute respiratory failure with hypoxia and hypercapnia Status: Acute (2) COPD (chronic obstructive pulmonary disease) Status: Chronic (3) Parkinsons Status: Chronic
[2017-09-09 18:24] VITALS: BP 166/88
[2017-09-09] MEDS: Insulin Detemir 100 units/ml Vial (Levemir) SC SCH (22:55)
--- NOTE | 2017-09-09 23:37 | CARD ---
APPROVED REPORT EKG Measurement Heart [id number] <Conclusion> Sinus rhythm with 1o AV block Baseline artifact Otehrwise normal EKG
[2017-09-10] MEDS ORDERED: Levothyroxine 150 MCG TAB PO SCH (06:30)
[2017-09-15] MEDS ORDERED: BUPRENORPHINE TD SCH (10:00)
== END 2017-09-09 23:55 | DRG 189 ==
LOC: C.ER 11:28 → C.9E 14:36 → C.9I 15:38 → C.6T 09-09 02:35
PROVIDERS: ADMIT Internal Medicine; ATTEND Internal Medicine
PROC: 5A09457 Assistance with Respiratory Ventilation, 24-96 Consecutive Hours, Continuous Positive Airway Pressure (ICD-10-PCS; principal; 2017-09-07)
DX: J96.22 Acute and chronic respiratory failure with hypercapnia (principal); E87.2 Acidosis; G20 Parkinson's disease; D63.8 Anemia in other chronic diseases classified elsewhere; E11.9 Type 2 diabetes mellitus without complications; D72.829 Elevated white blood cell count, unspecified; E03.9 Hypothyroidism, unspecified; J44.9 Chronic obstructive pulmonary disease, unspecified; R41.82 Altered mental status, unspecified; F32.9 Major depressive disorder, single episode, unspecified; I10 Essential (primary) hypertension; F41.9 Anxiety disorder, unspecified; G47.30 Sleep apnea, unspecified; Z87.891 Personal history of nicotine dependence; Z96.651 Presence of right artificial knee joint; K21.9 Gastro-esophageal reflux disease without esophagitis; Z79.4 Long term (current) use of insulin; Z88.0 Allergy status to penicillin; T38.0X5A Adverse effect of glucocorticoids and synthetic analogues, initial encounter

== ENCOUNTER 2017-09-16 11:47 | Inpatient (IN) | payer MEDICARE, MEDICAID ==
[2017-09-16 11:47] VITALS: BMI 60.2
[2017-09-16] MEDS ORDERED: MethylPREDNISolone 40 mg Vial IVP STA (12:00)
[2017-09-16] MEDS ORDERED: Albuterol-Ipratrop 3 mg / 0.5 (3 ml) UD INH STA ×3 (12:00→12:01)
[2017-09-16 12:31] LABS: VENOUS BLOOD GAS BASE EXCESS 9.4 mmol/L (0.0-2.0); VENOUS BLOOD GAS PCO2 95 mmHg (40-60); VENOUS BLOOD GAS PO2 61 mm/Hg (30-55); VENOUS BLOOD PH 7.24 (7.32-7.43)
[2017-09-16 12:36] LABS: BASO # 0.1 K/uL (0.0-0.2); BASO % 1.2 % (0.0-2.0); EOS # 0.1 K/uL (0.0-0.7); EOS % 1.1 % (0.0-4.0); HEMOGLOBIN 12.2 g/dL (11.0-16.0); LYMPH # 1.8 K/uL (1.0-4.3); LYMPH % 15.8 % (20.0-40.0); MEAN CORPUSCULAR HEMOGLOBIN 27.5 pg (27.0-31.0); MEAN CORPUSCULAR HGB CONC 31.8 g/dL (33.0-37.0); MEAN PLATELET VOLUME 9.3 fL (7.2-11.7); MONO % 8.3 % (0.0-10.0); NEUT # 8.5 K/uL (1.8-7.0); NEUT % 73.6 % (50.0-75.0); NRBC % 0.1 % (0.0-2.0); RBC 4.43 Mil/uL (3.80-5.20); WHITE BLOOD COUNT 11.6 K/uL (4.8-10.8)
[2017-09-16 12:40] LABS: MEAN CELL VOLUME 86.7 fL (81.0-99.0)
[2017-09-16] MEDS ORDERED: Albuterol-Ipratrop 3 mg / 0.5 (3 ml) UD ONE (12:47)
[2017-09-16 12:48] LABS: INR 0.9; PROTHROMBIN TIME 10.4 SECONDS (9.7-12.2)
[2017-09-16 12:51] LABS: SQUAMOUS EPITHIAL 1 /hpf (0-5); URINE BILIRUBIN NEGATIVE (NEGATIVE); URINE BLOOD NEGATIVE (NEGATIVE); URINE CLARITY Clear (Clear); URINE COLOR Yellow (YELLOW); URINE GLUCOSE (UA) NORMAL (Normal); URINE LEUKOCYTE ESTERASE NEG Leu/uL (Negative); URINE NITRATE NEGATIVE (NEGATIVE); URINE PROTEIN 2+ mg/dL (NEGATIVE); URINE UROBILINOGEN NORMAL mg/dL (0.2-1.0)
--- NOTE | 2017-09-16 13:11 | C.PDOC ---
History Of Present Illness 72 y/o female with history of COPD and Hypercapnia brought to ED by EMS from [facility] in an Altered Mental status. Patient seen at ED multiple times for similar episode. HPI limited secondary to Patient's clinical condition. Time Seen by Provider: 09/16/17 11:57 Chief Complaint (Nursing): Altered Mental Status History Per: EMS History/Exam Limitations: Clinical Condition Onset/Duration Of Symptoms: Hrs Current Symptoms Are (Timing): Still Present Past Medical History Reviewed: Historical Data, Nursing Documentation, Vital Signs Vital Signs: Last Vital Signs Temp 98.5 F 09/16/17 17:59 Pulse 70 09/16/17 18:02 Resp 19 09/16/17 18:02 BP 144/72 09/16/17 18:03 Pulse Ox 98 09/16/17 18:02 - Medical History PMH: Anemia, Anxiety, Arthritis, Bipolar Disorder, COPD, Depression, HTN, Hypothyroidism, Parkinson's Disease, Sleep Apnea (on Bipap) Surgical History: No Surg Hx - [facility] Procedures ASSISTANCE WITH RESPIRATORY VENTILATION, 24-96 HRS, CPAP (09/07/17) CONTINUOUS INVASIVE MECHANICAL VENTILATION <96 CONSEC HRS (12/29/12) CONTINUOUS INVASIVE MECHANICAL VENTILATION =/>96 CONSEC HRS (02/28/13) DX ULTRASOUND-HEART (08/29/13) EXCISION OF RIGHT BREAST, OPEN APPROACH, DIAGNOSTIC (09/18/15) INCIS W REM OF FORIEGN BODY OR DEV FROM SKIN & SUBCUT TISSUE (08/29/13) INSERT ENDOTRACHEAL TUBE (02/28/13) INSERT INDWELLING CATH (12/26/12) INSERTION OF ENDOTRACHEAL AIRWAY INTO TRACHEA, VIA OPENING (07/14/17) INSERTION OF INFUSION DEV INTO SUP VENA CAVA, PERC APPROACH (10/21/16) NON-INVASIVE MECHANICAL VENTILATION (08/29/13) RESPIRATORY VENTILATION, 24-96 CONSECUTIVE HOURS (07/14/17) Family History: States: No Known Family Hx - Social History Hx Tobacco Use: (Unknown) Hx Alcohol Use: No Hx Substance Use: No - Immunization History Hx Tetanus Toxoid Vaccination: No Hx Influenza Vaccination: No Hx Pneumococcal Vaccination: No (05/28/2009) Review Of Systems Review Of Systems: ROS cannot be obtained secondary to pt's inabilty to answer questions. Physical Exam - Physical Exam Appears: Other (Arousable to external rub) Skin: Warm, Dry, No Rash Head: Atraumatic, Normacephalic Eye(s): bilateral: Normal Inspection Oral Mucosa: Moist Neck: Normal ROM, Supple Cardiovascular: Rhythm Regular Respiratory: Decreased Breath Sounds (bilateral), No Rales, No Rhonchi, No Wheezing Gastrointestinal/Abdominal: Soft, No Tenderness, No Guarding, No Rebound Extremity: Normal ROM, Capillary Refill (<2 seconds) ED Course And Treatment - Laboratory Results Result Diagrams: 09/16/17 12:33 09/16/17 12:57 ECG: Interpreted By Me, Viewed By Me ECG Rhythm: Sinus Rhythm Rate From EC (bpm) O2 Sat by Pulse Oximetry: 98 (RA) Pulse Ox Interpretation: Normal Critical Care Time - Critical Care Note Total Time (in mins): 60 Documented critical care: time excludes all time spent performing seperately billable procedures. Disposition - Disposition Disposition: HOSPITALIZED Disposition Time: 14:53 Condition: CRITICAL - Clinical Impression Clinical Impression: COPD (chronic obstructive pulmonary disease), Hypercarbia - Scribe Statement The provider has reviewed the documentation as recorded by the Guerreroibjohn Miner All medical record entries made by the Guerreroibjohn were at my direction and personally dictated by me. I have reviewed the chart and agree that the record accurately reflects my personal performance of the history, physical exam, medical decision making, and the department course for this patient. I have also personally directed, reviewed, and agree with the discharge instructions and disposition. Decision To Admit - Pt Status Changed To: Hospital Disposition Of: Inpatient - Admit Certification Admit to Inpatient:: After my assessment, the patient will require hospitalization for at least two midnights. This is because of the severity of symptoms shown, intensity of services needed, and/or the medical risk in this patient being treated as an outpatient. - InPatient: Physician Admission Certification:: need icu - . Bed Request Type: ICU Admitting Physician: Hayden Tovar Jr. Patient Diagnosis: COPD (chronic obstructive pulmonary disease), Hypercarbia
--- NOTE | 2017-09-16 13:39 | RAD ---
PROCEDURE: CHEST RADIOGRAPH, 1 VIEW HISTORY: chest pain COMPARISON: Comparison chest dated 09/07/2017 FINDINGS: LUNGS: Poor inspiration with low lung volumes, crowded bronchovascular markings and mild bibasilar atelectasis left greater than right. There also appears to be small left-sided effusion. PLEURA: No pneumothorax or pleural fluid seen. CARDIOVASCULAR: Cardiomegaly. OSSEOUS STRUCTURES: Multilevel degenerative spondylosis thoracic spine with Monica scoliosis the mid to lower thoracic region. . VISUALIZED UPPER ABDOMEN: Normal. OTHER FINDINGS: None. IMPRESSION: Poor inspiration with low lung volumes, crowded bronchovascular markings and mild bibasilar atelectasis left greater than right. There also appears to be small left-sided effusion.
[2017-09-16 13:42] LABS: ALB/GLOB RATIO 1.1 (1.0-2.1); ALBUMIN 3.7 g/dL (3.5-5.0); ALT/SGPT 9 U/L (9-52); AST/SGOT 26 U/L (14-36); BLOOD UREA NITROGEN 18 mg/dL (7-17); CALCIUM 8.4 mg/dl (8.6-10.4); GFR AFRICAN-AMERICAN > 60; GFR NON-AFRICAN AMERICAN > 60
[2017-09-16 13:49] LABS: B-TYPE NATRIURETIC PEPTIDE 370 pg/mL (0-900)
[2017-09-16] MEDS ORDERED: Sodium Chloride 0.9% 1,000 ML ONE (14:09)
[2017-09-16 14:20] LABS: ABG ALLEN TEST PO; ARTERIAL BLOOD GAS HCO3 31.5 mmol/L (21-28); ARTERIAL BLOOD GAS HEMOGLOBIN 11.3 g/dL (11.7-17.4); ARTERIAL BLOOD GAS O2 SAT 96.1 % (95-98); ARTERIAL BLOOD GAS PCO2 83 mm/Hg (35-45); ARTERIAL BLOOD GAS PH 7.27 (7.35-7.45); ARTERIAL BLOOD GAS PO2 74 mm/Hg (80-100); ARTERIAL BLOOD GAS TCO2 40.6 mmol/L (22-28)
--- NOTE | 2017-09-16 15:14 | CP.PCM.HP ---
History of Present Illness - History of Present Illness History of Present Illness: Medicine H/P CC: AMS HPI: Patient is a 72F with hx of COPD, HTN and Parkinsons and multiple previous hospitalizations for similar complaints is brought to ED by EMS from [facility] with AMS. Pt unable to answer questions and is unresponsive at time of interview. CCU consulted after ABG reveals significant respiratory acidosis. Patient wa given duonebs x 2, solumedrol 125 and [address] mg [address]ix[address] Patient was place on a bipap at that time and repeat ABG was taken. She continued to be acidotic at that time in spite of improving CO2 levels. Patient will be transported to ICU at this time for closer monitoring. PMH: Anemia, anxiety, arthritis, bipolar, COPD, depresseion, HTN, hypothyroidism , Parkinsons, FESTUS (per chart review) PSH: Rt knee fusion, 1 ovary removed, hysterectomy, C-sections (per chart review) Fam: HTN in mom, aunt, uncle, DM in son, breast cysts in mother (per chart review) Social: 5 cig/day for 40 years, quit 10 years ago. Denies EtOH and drug use ( per chart review). Allergies: cephalosporins, PCN, clonazepam, mustard PMD: Tovar Present on Admission - Present on Admission Any Indicators Present on Admission: No Review of Systems - Review of Systems Review of Systems: per HPI Past Patient History - Infectious Disease Hx of Infectious Diseases: VRE - Tetanus Immunizations Tetanus Immunization: Unknown - Past Medical History & Family History Past Medical History?: Yes - Past Social History Smoking Status: Former Smoker - CARDIAC Hx Hypertension: Yes - PULMONARY Hx Chronic Obstructive Pulmonary Disease (COPD): Yes Hx Sleep Apnea: Yes (on Bipap) - NEUROLOGICAL Hx Parkinson's Disease: Yes - HEENT Hx HEENT Problems: No - RENAL Hx Chronic Kidney Disease: No - ENDOCRINE/METABOLIC Hx Hypothyroidism: Yes - HEMATOLOGICAL/ONCOLOGICAL Hx Anemia: Yes - INTEGUMENTARY Hx Dermatological Problems: No - MUSCULOSKELETAL/RHEUMATOLOGICAL Hx Arthritis: Yes - GASTROINTESTINAL Hx Gastrointestinal Disorders: Yes Hx Constipation: Yes Hx Gastroesophageal Reflux: Yes - GENITOURINARY/GYNECOLOGICAL Hx Genitourinary Disorders: Yes Hx Incontinence: Yes Hx Urinary Tract Infection: Yes - PSYCHIATRIC Hx Anxiety: Yes Hx Bipolar Disorder: Yes Hx Depression: Yes Hx Substance Use: No - SURGICAL HISTORY Hx Surgeries: Yes Hx Orthopedic Surgery: Yes Other/Comment: right knee replacement 2014; right knee prosthesis removal s/p infection 2015 - ANESTHESIA Hx Anesthesia: Yes Hx Anesthesia Reactions: No Hx Malignant Hyperthermia: No Meds Allergies/Adverse Reactions: Allergies Allergy/AdvReac Type Severity Reaction Status Date / Time Cephalosporins Allergy Intermediate RASH Verified 09/16/17 12:06 Penicillins Allergy Intermediate RASH Verified 09/16/17 12:06 clonazepam [From Klonopin] Allergy Verified 09/16/17 12:06 mustard Allergy Intermediate RASH Uncoded 09/16/17 12:06 Physical Exam - Constitutional Appears: Chronically Ill - Head Exam Head Exam: ATRAUMATIC, NORMAL INSPECTION, NORMOCEPHALIC - Eye Exam Eye Exam: EOMI Additional comments: on BIPAP - ENT Exam ENT Exam: Mucous Membranes Moist - Respiratory Exam Respiratory Exam: Respiratory Distress Additional comments: On BIPAP - Cardiovascular Exam Cardiovascular Exam: REGULAR RHYTHM - GI/Abdominal Exam GI & Abdominal Exam: Normal Bowel Sounds, Soft. absent: Distended, Tenderness - Extremities Exam Extremities exam: Negative for: joint swelling, tenderness - Skin Skin Exam: Dry, Intact, Normal Color, Warm Results - Vital Signs Recent Vital Signs: Last Vital Signs Temp 99 F 09/16/17 11:50 Pulse 66 09/16/17 14:44 Resp 24 09/16/17 14:44 BP 143/78 09/16/17 14:44 Pulse Ox 98 09/16/17 14:55 - Labs Result Diagrams: 09/16/17 12:33 09/16/17 12:57 Labs: Laboratory Results - last 24 hr 09/16/17 09/16/17 09/16/17 12:27 12:33 12:33 WBC 11.6 H RBC 4.43 Hgb 12.2 Hct 38.4 MCV 86.7 D MCH 27.5 MCHC 31.8 L RDW 15.0 H Plt Count 270 MPV 9.3 Neut % (Auto) 73.6 Lymph % (Auto) 15.8 L [place] % (Auto) 8.3 Eos % (Auto) 1.1 Baso % (Auto) 1.2 Neut # 8.5 H Lymph # 1.8 [place] # 1.0 H Eos # 0.1 Baso # 0.1 PT 10.4 INR 0.9 APTT 43 H Puncture Site pCO2 pO2 61 H HCO3 ABG pH ABG Total CO2 ABG O2 Saturation ABG Base Excess ABG Hemoglobin ABG Carboxyhemoglobin POC ABG HHb (Measured) ABG Methemoglobin Donta Test VBG pH 7.24 L VBG pCO2 95 H* VBG HCO3 32.0 VBG Total CO2 43.6 H VBG O2 Sat (Calc) 91.6 H VBG Base Excess 9.4 H VBG Potassium 4.3 A-a O2 Difference Respiratory Index Hgb O2 Saturation Sodium 135.0 Chloride 97.0 L Glucose 148 H Lactate 0.5 L Vent Mode FiO2 Inspiratory BiPAP Expiratory BiPAP Crit Value Called To mauricio Roy Crit Value Called By Venkat torres,metal window frame maker Crit Value Read Back Y Blood Gas Notified Time 1235 Potassium Carbon Dioxide Anion Gap BUN Creatinine Est GFR ( Amer) Est GFR (Non-Af Amer) Random Glucose Calcium Total Bilirubin AST ALT Alkaline Phosphatase Troponin I NT-Pro-B Natriuret Pep Total Protein Albumin Globulin Albumin/Globulin Ratio Venous Blood Potassium 4.3 Urine Color Urine Clarity Urine pH Ur Specific [place] Urine Protein Urine Glucose (UA) Urine Ketones Urine Blood Urine Nitrate Urine Bilirubin Urine Urobilinogen Ur Leukocyte Esterase Urine WBC (Auto) Urine RBC (Auto) Ur Squamous Epith Cells 09/16/17 09/16/17 09/16/17 12:33 12:57 14:16 WBC RBC Hgb Hct MCV MCH MCHC RDW Plt Count MPV Neut % (Auto) Lymph % (Auto) [place] % (Auto) Eos % (Auto) Baso % (Auto) Neut # Lymph # [place] # Eos # Baso # PT INR APTT Puncture Site Rra pCO2 83 H* pO2 74 L HCO3 31.5 H ABG pH 7.27 L ABG Total CO2 40.6 H ABG O2 Saturation 96.1 ABG Base Excess 8.6 H ABG Hemoglobin 11.3 L ABG Carboxyhemoglobin 2.4 H POC ABG HHb (Measured) 3.8 ABG Methemoglobin 0.9 Donta Test Po VBG pH VBG pCO2 VBG HCO3 VBG Total CO2 VBG O2 Sat (Calc) VBG Base Excess VBG Potassium A-a O2 Difference 107.0 Respiratory Index 1.4 Hgb O2 Saturation 92.9 L Sodium 130 L Chloride 89 L Glucose Lactate Vent Mode Bipap FiO2 40.0 Inspiratory BiPAP 18 Expiratory BiPAP 8 Crit Value Called To Crit Value Called By [email or web address].atel,metal window frame maker Crit Value Read Back Y Blood Gas Notified Time 1425 Potassium 5.4 H Carbon Dioxide 38 H Anion Gap 8 L BUN 18 H Creatinine 0.6 L Est GFR ( Amer) > 60 Est GFR (Non-Af Amer) > 60 Random Glucose 138 H Calcium 8.4 L Total Bilirubin 1.0 AST 26 ALT 9 D Alkaline Phosphatase 40 Troponin I 0.0140 NT-Pro-B Natriuret Pep 370 Total Protein 7.1 Albumin 3.7 Globulin 3.4 Albumin/Globulin Ratio 1.1 Venous Blood Potassium Urine Color Yellow Urine Clarity Clear Urine pH 7.0 Ur Specific [place] 1.011 Urine Protein 2+ H Urine Glucose (UA) Normal Urine Ketones Trace Urine Blood Negative Urine Nitrate Negative Urine Bilirubin Negative Urine Urobilinogen Normal Ur Leukocyte Esterase Neg Urine WBC (Auto) < 1 Urine RBC (Auto) 1 Ur Squamous Epith Cells 1 Assessment & Plan (1) Acute respiratory acidosis Assessment and Plan: duonebs lasix solumedrol abg ICU monitoring BiPAP PRN Will consider intubation if patient continues to deteriorate Status: Acute Priority: High
--- NOTE | 2017-09-16 15:24 | CP.PCM.CON ---
History of Present Illness - History of Present Illness History of Present Illness: CCU Consult note HPI: CC: AMS HPI: Patient is a 72F with hx of COPD, HTN and Parkinsons and multiple previous hospitalizations for similar complaints is brought to ED by EMS from group home with AMS. Pt unable to answer questions and is unresponsive at time of interview. CCU consulted after ABG reveals significant respiratory acidosis. Patient wa given duonebs x 2, solumedrol 125 and 20 mg lasix. Patient was place on a bipap at that time and repeat ABG was taken. She continued to be acidotic at that time in spite of improving CO2 levels. Patient will be transported to ICU at this time for closer monitoring. PMH: Anemia, anxiety, arthritis, bipolar, COPD, depresseion, HTN, hypothyroidism , Parkinsons, FESTUS (per chart review) PSH: Rt knee fusion, 1 ovary removed, hysterectomy, C-sections (per chart review) Fam: HTN in mom, aunt, uncle, DM in son, breast cysts in mother (per chart review) Social: 5 cig/day for 40 years, quit 10 years ago. Denies EtOH and drug use ( per chart review). Allergies: cephalosporins, PCN, clonazepam, mustard PMD: Tovar Review of Systems - Review of Systems Review of Systems: per hpi Past Patient History - Infectious Disease Hx of Infectious Diseases: VRE - Tetanus Immunizations Tetanus Immunization: Unknown - Past Medical History & Family History Past Medical History?: Yes - Past Social History Smoking Status: Former Smoker - CARDIAC Hx Hypertension: Yes - PULMONARY Hx Chronic Obstructive Pulmonary Disease (COPD): Yes Hx Sleep Apnea: Yes (on Bipap) - NEUROLOGICAL Hx Parkinson's Disease: Yes - HEENT Hx HEENT Problems: No - RENAL Hx Chronic Kidney Disease: No - ENDOCRINE/METABOLIC Hx Hypothyroidism: Yes - HEMATOLOGICAL/ONCOLOGICAL Hx Anemia: Yes - INTEGUMENTARY Hx Dermatological Problems: No - MUSCULOSKELETAL/RHEUMATOLOGICAL Hx Arthritis: Yes - GASTROINTESTINAL Hx Gastrointestinal Disorders: Yes Hx Constipation: Yes Hx Gastroesophageal Reflux: Yes - GENITOURINARY/GYNECOLOGICAL Hx Genitourinary Disorders: Yes Hx Incontinence: Yes Hx Urinary Tract Infection: Yes - PSYCHIATRIC Hx Anxiety: Yes Hx Bipolar Disorder: Yes Hx Depression: Yes Hx Substance Use: No - SURGICAL HISTORY Hx Surgeries: Yes Hx Orthopedic Surgery: Yes Other/Comment: right knee replacement 2014; right knee prosthesis removal s/p infection 2015 - ANESTHESIA Hx Anesthesia: Yes Hx Anesthesia Reactions: No Hx Malignant Hyperthermia: No Meds Allergies/Adverse Reactions: Allergies Allergy/AdvReac Type Severity Reaction Status Date / Time Cephalosporins Allergy Intermediate RASH Verified 09/16/17 12:06 Penicillins Allergy Intermediate RASH Verified 09/16/17 12:06 clonazepam [From Klonopin] Allergy Verified 09/16/17 12:06 mustard Allergy Intermediate RASH Uncoded 09/16/17 12:06 Physical Exam - Constitutional Appears: Chronically Ill - Head Exam Head Exam: ATRAUMATIC, NORMAL INSPECTION, NORMOCEPHALIC - Eye Exam Eye Exam: EOMI Pupil Exam: NORMAL ACCOMODATION - ENT Exam ENT Exam: Mucous Membranes Moist - Respiratory Exam Additional comments: BiPAP - GI/Abdominal Exam GI & Abdominal Exam: Normal Bowel Sounds, Soft. absent: Distended, Tenderness - Extremities Exam Extremities exam: Negative for: joint swelling, tenderness - Neurological Exam Neurological exam: Alert - Skin Skin Exam: Dry, Intact, Normal Color, Warm Results - Vital Signs Recent Vital Signs: Last Vital Signs Temp 99 F 09/16/17 11:50 Pulse 66 09/16/17 14:44 Resp 24 09/16/17 14:44 BP 143/78 09/16/17 14:44 Pulse Ox 98 09/16/17 14:55 - Labs Result Diagrams: 09/16/17 12:33 09/16/17 12:57 Labs: Laboratory Results - last 24 hr 09/16/17 09/16/17 09/16/17 12:27 12:33 12:33 WBC 11.6 H RBC 4.43 Hgb 12.2 Hct 38.4 MCV 86.7 D MCH 27.5 MCHC 31.8 L RDW 15.0 H Plt Count 270 MPV 9.3 Neut % (Auto) 73.6 Lymph % (Auto) 15.8 L [place] % (Auto) 8.3 Eos % (Auto) 1.1 Baso % (Auto) 1.2 Neut # 8.5 H Lymph # 1.8 [place] # 1.0 H Eos # 0.1 Baso # 0.1 PT 10.4 INR 0.9 APTT 43 H Puncture Site pCO2 pO2 61 H HCO3 ABG pH ABG Total CO2 ABG O2 Saturation ABG Base Excess ABG Hemoglobin ABG Carboxyhemoglobin POC ABG HHb (Measured) ABG Methemoglobin Donta Test VBG pH 7.24 L VBG pCO2 95 H* VBG HCO3 32.0 VBG Total CO2 43.6 H VBG O2 Sat (Calc) 91.6 H VBG Base Excess 9.4 H VBG Potassium 4.3 A-a O2 Difference Respiratory Index Hgb O2 Saturation Sodium 135.0 Chloride 97.0 L Glucose 148 H Lactate 0.5 L Vent Mode FiO2 Inspiratory BiPAP Expiratory BiPAP Crit Value Called To mauricio Roy Crit Value Called By Venkat torres,microfilm machine operator Crit Value Read Back Y Blood Gas Notified Time 1235 Potassium Carbon Dioxide Anion Gap BUN Creatinine Est GFR ( Amer) Est GFR (Non-Af Amer) Random Glucose Calcium Total Bilirubin AST ALT Alkaline Phosphatase Troponin I NT-Pro-B Natriuret Pep Total Protein Albumin Globulin Albumin/Globulin Ratio Venous Blood Potassium 4.3 Urine Color Urine Clarity Urine pH Ur Specific [place] Urine Protein Urine Glucose (UA) Urine Ketones Urine Blood Urine Nitrate Urine Bilirubin Urine Urobilinogen Ur Leukocyte Esterase Urine WBC (Auto) Urine RBC (Auto) Ur Squamous Epith Cells 09/16/17 09/16/17 09/16/17 12:33 12:57 14:16 WBC RBC Hgb Hct MCV MCH MCHC RDW Plt Count MPV Neut % (Auto) Lymph % (Auto) [place] % (Auto) Eos % (Auto) Baso % (Auto) Neut # Lymph # [place] # Eos # Baso # PT INR APTT Puncture Site Rra pCO2 83 H* pO2 74 L HCO3 31.5 H ABG pH 7.27 L ABG Total CO2 40.6 H ABG O2 Saturation 96.1 ABG Base Excess 8.6 H ABG Hemoglobin 11.3 L ABG Carboxyhemoglobin 2.4 H POC ABG HHb (Measured) 3.8 ABG Methemoglobin 0.9 Donta Test Po VBG pH VBG pCO2 VBG HCO3 VBG Total CO2 VBG O2 Sat (Calc) VBG Base Excess VBG Potassium A-a O2 Difference 107.0 Respiratory Index 1.4 Hgb O2 Saturation 92.9 L Sodium 130 L Chloride 89 L Glucose Lactate Vent Mode Bipap FiO2 40.0 Inspiratory BiPAP 18 Expiratory BiPAP 8 Crit Value Called To Crit Value Called By [email or web address],microfilm machine operator Crit Value Read Back Y Blood Gas Notified Time 1425 Potassium 5.4 H Carbon Dioxide 38 H Anion Gap 8 L BUN 18 H Creatinine 0.6 L Est GFR ( Amer) > 60 Est GFR (Non-Af Amer) > 60 Random Glucose 138 H Calcium 8.4 L Total Bilirubin 1.0 AST 26 ALT 9 D Alkaline Phosphatase 40 Troponin I 0.0140 NT-Pro-B Natriuret Pep 370 Total Protein 7.1 Albumin 3.7 Globulin 3.4 Albumin/Globulin Ratio 1.1 Venous Blood Potassium Urine Color Yellow Urine Clarity Clear Urine pH 7.0 Ur Specific [place] 1.011 Urine Protein 2+ H Urine Glucose (UA) Normal Urine Ketones Trace Urine Blood Negative Urine Nitrate Negative Urine Bilirubin Negative Urine Urobilinogen Normal Ur Leukocyte Esterase Neg Urine WBC (Auto) < 1 Urine RBC (Auto) 1 Ur Squamous Epith Cells 1 Assessment & Plan (1) Acute respiratory acidosis Status: Acute Priority: High - Assessment and Plan (Free Text) Assessment: 72F respiratory acidosis/AMS Plan: Neuro: AMS most likely 2/2 to acidosis and co2 retention BIPAP, consider intubation if patient deteriorates Cards: HTN vasotec coreg Pulm: Bipap, repeat abg, consider intubation, heide her GI: Pepcid Renal: no acute issues Endo: DM, ISS High, accuchecks PPX: pepcid, heparin
[2017-09-16] MEDS ORDERED: (Novolin R) Insulin Human Regular 100 units/ml vial SC SCH ×2 (16:30→21:30)
[2017-09-16] MEDS: Albuterol-Ipratrop 3 mg / 0.5 (3 ml) UD INH SCH (20:09)
[2017-09-16 21:55] LABS: ARTERIAL BLOOD GAS HCO3 31.6 mmol/L (21-28); ARTERIAL BLOOD GAS HEMOGLOBIN 12.8 g/dL (11.7-17.4); ARTERIAL BLOOD GAS O2 SAT 97.8 % (95-98); ARTERIAL BLOOD GAS PCO2 75 mm/Hg (35-45); ARTERIAL BLOOD GAS PH 7.31 (7.35-7.45); ARTERIAL BLOOD GAS PO2 92 mm/Hg (80-100); ARTERIAL BLOOD GAS TCO2 40.1 mmol/L (22-28)
[2017-09-16] MEDS: Enalaprilat 2.5 MG/2 ML IV SCH (22:12)
[2017-09-17] MEDS: (Novolin R) Insulin Human Regular 100 units/ml vial SC SCH ×4 (00:24→18:48)
[2017-09-17] MEDS: Albuterol-Ipratrop 3 mg / 0.5 (3 ml) UD INH SCH ×4 (02:35→19:39)
[2017-09-17 06:03] LABS: ABG ALLEN TEST POS; ARTERIAL BLOOD GAS HCO3 30.7 mmol/L (21-28); ARTERIAL BLOOD GAS HEMOGLOBIN 12.3 g/dL (11.7-17.4); ARTERIAL BLOOD GAS O2 SAT 98.4 % (95-98); ARTERIAL BLOOD GAS PCO2 76 mm/Hg (35-45); ARTERIAL BLOOD GAS PH 7.29 (7.35-7.45); ARTERIAL BLOOD GAS PO2 95 mm/Hg (80-100); ARTERIAL BLOOD GAS TCO2 38.8 mmol/L (22-28)
[2017-09-17] MEDS: Enalaprilat 2.5 MG/2 ML IV SCH ×2 (06:23→09:45)
[2017-09-17 06:33] LABS: BASO # 0.1 K/uL (0.0-0.2); BASO % 0.9 % (0.0-2.0); EOS % 0.1 % (0.0-4.0); LYMPH # 1.5 K/uL (1.0-4.3); LYMPH % 21.4 % (20.0-40.0); MEAN CELL VOLUME 86.6 fL (81.0-99.0); MEAN CORPUSCULAR HEMOGLOBIN 28.5 pg (27.0-31.0); MEAN CORPUSCULAR HGB CONC 32.9 g/dL (33.0-37.0); MEAN PLATELET VOLUME 9.8 fL (7.2-11.7); MONO # 0.4 K/uL (0.0-0.8); MONO % 5.3 % (0.0-10.0); NEUT % 72.3 % (50.0-75.0); RBC 4.22 Mil/uL (3.80-5.20); RED CELL DISTRIBUTION WIDTH 14.8 % (11.5-14.5)
[2017-09-17 06:46] LABS: ALB/GLOB RATIO 1.1 (1.0-2.1); ALBUMIN 3.6 g/dL (3.5-5.0); ALT/SGPT 19 U/L (9-52); AST/SGOT 13 U/L (14-36); BLOOD UREA NITROGEN 29 mg/dL (7-17); CALCIUM 8.4 mg/dl (8.6-10.4); GFR AFRICAN-AMERICAN > 60; GFR NON-AFRICAN AMERICAN > 60; MAGNESIUM 1.9 mg/dL (1.6-2.3)
--- NOTE | 2017-09-17 08:57 | RAD ---
Chest x-ray single frontal view History: Shortness of breath. Comparison: 09/16/2017 Findings: Right hilar prominence. Mild venous congestion. Patchy increased markings at the left lung base with small left pleural effusion. Enlarged ectatic aorta. Cardiomegaly. Degenerative changes in the spine and shoulders. Impression: Right hilar prominence. Mild venous congestion. Patchy increased markings at the left lung base with small left pleural effusion. Enlarged ectatic aorta. Cardiomegaly.
[2017-09-17] MEDS ORDERED: MethylPREDNISolone 40 mg Vial IVP SCH (10:00)
--- NOTE | 2017-09-17 14:36 | CP.CCUPN ---
<Ron Dodge - Last Filed: 09/17/17 14:34> CCU Subjective - Physician Review Subjective (Free Text): 09/17/17 14:34 patient seen and examined at bedisde doing much better breathing much better off of BiPAP refusing TLC at this time Tolerating diet CCU Objective - Vital Signs / Intake & Output Vital Signs (Last 4 hours): Vital Signs Temp Pulse Resp BP Pulse Ox 09/17/17 12:00 99.2 F 85 18 98 09/17/17 11:50 80 17 99 09/17/17 11:48 74 14 117/67 96 09/17/17 11:40 78 19 97 09/17/17 11:30 81 18 97 09/17/17 11:20 78 12 97 09/17/17 11:10 78 14 99 09/17/17 11:00 77 14 96 09/17/17 10:50 73 18 99 09/17/17 10:48 75 14 120/72 96 09/17/17 10:40 75 14 100 Intake and Output (Last 8hrs): Intake & Output 09/16/17 09/17/17 09/17/17 22:59 06:59 14:59 Intake Total 0 0 Output Total 470 255 115 Balance -470 -255 -115 Weight 305 lb 4.8 oz 304 lb 14.4 oz Intake: Intake, IV Amount 0 0 Left Hand 0 0 Right Antecubital 0 0 Output: Urine 470 255 115 Urethral (Edmond) 470 255 115 - Physical Exam Head: Positive for: Atraumatic, Normocephalic Pupils: Positive for: PERRL Extroacular Muscles: Positive for: EOMI Conjunctiva: Positive for: Normal Mouth: Positive for: Moist Mucous Membranes Neck: Positive for: Normal Range of Motion Respiratory/Chest: Positive for: Clear to Auscultation Cardiovascular: Positive for: Regular Rate and Rhythm Abdomen: Positive for: Normal Bowel Sounds. Negative for: Tenderness, Distention, Peritoneal Signs Psychiatric: Positive for: Alert, Oriented x 3 - Medications Active Medications: Active Medications Generic Name Dose Route Start Last Admin Trade Name Freq PRN Reason Stop Dose Admin Albuterol/Ipratropium 3 ml 09/16/17 20:00 09/17/17 14:20 Duoneb 3 Mg/0.5 Mg (3 Ml) Ud INH 3 ml RQ6 TIMOTEO Administration Carvedilol 25 mg 09/16/17 18:00 09/16/17 18:03 Coreg PO Not Given BID [facility] Enalaprilat 1.25 mg 09/16/17 21:45 09/17/17 09:45 Vasotec IV Not Given Q6H [facility] Famotidine 20 mg 09/18/17 10:00 Pepcid PO DAILY [facility] Heparin Sodium (Porcine) 5,000 units 09/16/17 22:00 09/17/17 14:24 Heparin SC 5,000 units Q8 TIMOTEO Administration Insulin Human Regular 0 unit 09/17/17 00:00 09/17/17 12:02 Novolin R SC Not Given Q6H [facility] Protocol Methylprednisolone 40 mg 09/17/17 10:00 Solu-Medrol IVP Q8H [facility] - Patient Studies Lab Studies: Lab Studies 09/17/17 09/17/17 09/17/17 Range/Units 06:30 06:25 06:23 WBC 7.0 (4.8-10.8) K/uL RBC 4.22 (3.80-5.20) Mil/uL Hgb 12.0 (11.0-16.0) g/dL Hct 36.5 (34.0-47.0) % MCV 86.6 (81.0-99.0) fL MCH 28.5 (27.0-31.0) pg MCHC 32.9 L (33.0-37.0) g/dL RDW 14.8 H (11.5-14.5) % Plt Count 269 (130-400) K/uL MPV 9.8 (7.2-11.7) fL Neut % (Auto) 72.3 (50.0-75.0) % Lymph % (Auto) 21.4 (20.0-40.0) % [place] % (Auto) 5.3 (0.0-10.0) % Eos % (Auto) 0.1 (0.0-4.0) % Baso % (Auto) 0.9 (0.0-2.0) % Neut # 5.0 (1.8-7.0) K/uL Lymph # 1.5 (1.0-4.3) K/uL [place]on # 0.4 (0.0-0.8) K/uL Eos # 0.0 (0.0-0.7) K/uL Baso # 0.1 (0.0-0.2) K/uL Puncture Site pCO2 (35-45) mm/Hg pO2 (80-100) mm/Hg HCO3 (21-28) mmol/L ABG pH (7.35-7.45) ABG Total CO2 (22-28) mmol/L ABG O2 Saturation (95-98) % ABG Base Excess (-2.0-3.0) mmol/L ABG Hemoglobin (11.7-17.4) g/dL ABG Carboxyhemoglobin (0.5-1.5) % POC ABG HHb (Measured) (0.0-5.0) % ABG Methemoglobin (0.0-3.0) % Donta Test A-a O2 Difference mm/Hg Respiratory Index Hgb O2 Saturation (95.0-98.0) % Vent Mode FiO2 % Inspiratory BiPAP Expiratory BiPAP Crit Value Called To Crit Value Called By Crit Value Read Back Blood Gas Notified Time Sodium 132 (132-148) mmol/L Potassium 4.6 (3.6-5.2) mmol/L Chloride 90 L (98-107) mmol/L Carbon Dioxide 34 H (22-30) mmol/L Anion Gap 13 (10-20) BUN 29 H (7-17) mg/dL Creatinine 0.7 (0.7-1.2) mg/dL Est GFR ( Amer) > 60 Est GFR (Non-Af Amer) > 60 POC Glucose (mg/dL) 116 H (65-110) mg/dL Random Glucose 126 H (65-105) mg/dL Calcium 8.4 L (8.6-10.4) mg/dl Phosphorus 5.3 H (2.5-4.5) mg/dL Magnesium 1.9 (1.6-2.3) mg/dL Total Bilirubin 0.4 (0.2-1.3) mg/dL AST 13 L D (14-36) U/L ALT 19 (9-52) U/L Alkaline Phosphatase 50 (38-126) U/L Total Protein 7.0 (6.3-8.3) g/dL Albumin 3.6 (3.5-5.0) g/dL Globulin 3.3 (2.2-3.9) gm/dL Albumin/Globulin Ratio 1.1 (1.0-2.1) 09/17/17 09/16/17 09/16/17 Range/Units 05:33 23:40 21:51 WBC (4.8-10.8) K/uL RBC (3.80-5.20) Mil/uL Hgb (11.0-16.0) g/dL Hct (34.0-47.0) % MCV (81.0-99.0) fL MCH (27.0-31.0) pg MCHC (33.0-37.0) g/dL RDW (11.5-14.5) % Plt Count (130-400) K/uL MPV (7.2-11.7) fL Neut % (Auto) (50.0-75.0) % Lymph % (Auto) (20.0-40.0) % [place] % (Auto) (0.0-10.0) % Eos % (Auto) (0.0-4.0) % Baso % (Auto) (0.0-2.0) % Neut # (1.8-7.0) K/uL Lymph # (1.0-4.3) K/uL [place]on # (0.0-0.8) K/uL Eos # (0.0-0.7) K/uL Baso # (0.0-0.2) K/uL Puncture Site Rr Rra pCO2 76 H* 75 H* (35-45) mm/Hg pO2 95 92 (80-100) mm/Hg HCO3 30.7 H 31.6 H (21-28) mmol/L ABG pH 7.29 L 7.31 L (7.35-7.45) ABG Total CO2 38.8 H 40.1 H (22-28) mmol/L ABG O2 Saturation 98.4 H 97.8 (95-98) % ABG Base Excess 7.4 H 8.7 H (-2.0-3.0) mmol/L ABG Hemoglobin 12.3 12.8 (11.7-17.4) g/dL ABG Carboxyhemoglobin 2.0 H 2.1 H (0.5-1.5) % POC ABG HHb (Measured) 1.6 2.1 (0.0-5.0) % ABG Methemoglobin 0.8 1.2 (0.0-3.0) % Donta Test Pos Na A-a O2 Difference 60.0 64.0 mm/Hg Respiratory Index 0.6 0.7 Hgb O2 Saturation 95.6 94.6 L (95.0-98.0) % Vent Mode Bipap Bipap FiO2 35.0 35.0 % Inspiratory BiPAP 20 20 Expiratory BiPAP 10 10 Crit Value Called To Kate [facility] agricultural service worker Crit Value Called By Tereso ledge man Lendl Crit Value Read Back Y Y Blood Gas Notified Time 602 2155 Sodium (132-148) mmol/L Potassium (3.6-5.2) mmol/L Chloride (98-107) mmol/L Carbon Dioxide (22-30) mmol/L Anion Gap (10-20) BUN (7-17) mg/dL Creatinine (0.7-1.2) mg/dL Est GFR ( Amer) Est GFR (Non-Af Amer) POC Glucose (mg/dL) 143 H (65-110) mg/dL Random Glucose (65-105) mg/dL Calcium (8.6-10.4) mg/dl Phosphorus (2.5-4.5) mg/dL Magnesium (1.6-2.3) mg/dL Total Bilirubin (0.2-1.3) mg/dL AST (14-36) U/L ALT (9-52) U/L Alkaline Phosphatase (38-126) U/L Total Protein (6.3-8.3) g/dL Albumin (3.5-5.0) g/dL Globulin (2.2-3.9) gm/dL Albumin/Globulin Ratio (1.0-2.1) Laboratory Results - last 24 hr 09/16/17 09/16/17 09/17/17 21:51 23:40 05:33 WBC RBC Hgb Hct MCV MCH MCHC RDW Plt Count MPV Neut % (Auto) Lymph % (Auto) [place]berson % (Auto) Eos % (Auto) Baso % (Auto) Neut # Lymph # [place] # Eos # Baso # Puncture Site Rra Rr pCO2 75 H* 76 H* pO2 92 95 HCO3 31.6 H 30.7 H ABG pH 7.31 L 7.29 L ABG Total CO2 40.1 H 38.8 H ABG O2 Saturation 97.8 98.4 H ABG Base Excess 8.7 H 7.4 H ABG Hemoglobin 12.8 12.3 ABG Carboxyhemoglobin 2.1 H 2.0 H POC ABG HHb (Measured) 2.1 1.6 ABG Methemoglobin 1.2 0.8 Donta Test Na Pos A-a O2 Difference 64.0 60.0 Respiratory Index 0.7 0.6 Hgb O2 Saturation 94.6 L 95.6 Vent Mode Bipap Bipap FiO2 35.0 35.0 Inspiratory BiPAP 20 20 Expiratory BiPAP 10 10 Crit Value Called To [facility] agricultural service workerangie Love Crit Value Called By Rowena Rider ledge man Crit Value Read Back Y Y Blood Gas Notified Time 2155 602 Sodium Potassium Chloride Carbon Dioxide Anion Gap BUN Creatinine Est GFR ( Amer) Est GFR (Non-Af Amer) POC Glucose (mg/dL) 143 H Random Glucose Calcium Phosphorus Magnesium Total Bilirubin AST ALT Alkaline Phosphatase Total Protein Albumin Globulin Albumin/Globulin Ratio 09/17/17 09/17/17 09/17/17 06:23 06:25 06:30 WBC 7.0 RBC 4.22 Hgb 12.0 Hct 36.5 MCV 86.6 MCH 28.5 MCHC 32.9 L RDW 14.8 H Plt Count 269 MPV 9.8 Neut % (Auto) 72.3 Lymph % (Auto) 21.4 [place]on % (Auto) 5.3 Eos % (Auto) 0.1 Baso % (Auto) 0.9 Neut # 5.0 Lymph # 1.5 [place]on # 0.4 Eos # 0.0 Baso # 0.1 Puncture Site pCO2 pO2 HCO3 ABG pH ABG Total CO2 ABG O2 Saturation ABG Base Excess ABG Hemoglobin ABG Carboxyhemoglobin POC ABG HHb (Measured) ABG Methemoglobin Donta Test A-a O2 Difference Respiratory Index Hgb O2 Saturation Vent Mode FiO2 Inspiratory BiPAP Expiratory BiPAP Crit Value Called To Crit Value Called By Crit Value Read Back Blood Gas Notified Time Sodium 132 Potassium 4.6 Chloride 90 L Carbon Dioxide 34 H Anion Gap 13 BUN 29 H Creatinine 0.7 Est GFR ( Amer) > 60 Est GFR (Non-Af Amer) > 60 POC Glucose (mg/dL) 116 H Random Glucose 126 H Calcium 8.4 L Phosphorus 5.3 H Magnesium 1.9 Total Bilirubin 0.4 AST 13 L D ALT 19 Alkaline Phosphatase 50 Total Protein 7.0 Albumin 3.6 Globulin 3.3 Albumin/Globulin Ratio 1.1 Fingerstick Blood Sugar Results: 129 Critical Care Progress Note - Nutrition Nutrition: Nutrition Category Date Time Status Consistent Carbohydrate [DIET] Diets 09/17/17 Lunch Active Assessment/Plan - Assessment and Plan (Free Text) Assessment: 72F with acute on chronic respiratory acidosis 2/2 copd exacerbation Plan: Psych: no acute issues Neuro: Parkinsons Cardio: HTN vasotec 1.25 mg IV Q6hr coreg 25mg PO BID Pulm: Chronic COPD BiPap FI02 35%, IPAP 20, EPAP 10, RR 16 PRN; on NC now tolerating well duoneb Solumedrol 40mg IV Q8hr GI: no active problems Renal: no acute issues Endo: DM2 ISS High accuchecks Prophylaxis: pepcid, heparin <Ousmane,Johan S - Last Filed: 09/17/17 17:36> CCU Objective - Vital Signs / Intake & Output Vital Signs (Last 4 hours): Vital Signs Temp Pulse Resp BP Pulse Ox 09/17/17 17:22 78 15 161/80 H 97 09/17/17 17:20 79 9 L 98 09/17/17 17:10 77 14 100 09/17/17 17:00 76 16 99 09/17/17 16:50 74 15 100 09/17/17 16:44 73 19 168/90 H 97 09/17/17 16:40 76 13 98 09/17/17 16:30 77 11 L 100 09/17/17 16:20 73 22 100 09/17/17 16:10 73 19 100 09/17/17 16:00 99.1 F 71 19 100 09/17/17 15:50 73 14 99 09/17/17 15:49 79 17 87/72 L 99 09/17/17 15:40 72 18 100 09/17/17 15:30 75 12 100 09/17/17 15:20 76 17 100 09/17/17 15:10 72 16 100 09/17/17 15:00 74 14 09/17/17 14:50 79 14 09/17/17 14:49 78 15 94/71 L 09/17/17 14:40 79 15 09/17/17 14:30 77 25 H 09/17/17 14:20 81 11 L 100 09/17/17 14:10 77 15 98 09/17/17 14:00 76 13 95 09/17/17 13:50 76 18 100 09/17/17 13:48 78 15 117/60 100 09/17/17 13:40 79 15 98 Intake and Output (Last 8hrs): Intake & Output 09/17/17 09/17/17 09/17/17 06:59 14:59 22:59 Intake Total 0 375 300 Output Total 255 230 70 Balance -255 145 230 Weight 304 lb 14.4 oz Intake: Intake, IV Amount 0 Left Hand 0 Right Antecubital 0 Oral 375 300 Output: Urine 255 230 70 Urethral (Edmond) 255 230 70 - Medications Active Medications: Active Medications Generic Name Dose Route Start Last Admin Trade Name Ruddyq PRN Reason Stop Dose Admin Albuterol/Ipratropium 3 ml 09/16/17 20:00 09/17/17 14:20 Duoneb 3 Mg/0.5 Mg (3 Ml) Ud INH 3 ml RQ6 TIMOTEO Administration Carvedilol 25 mg 09/16/17 18:00 09/16/17 18:03 Coreg PO Not Given BID TIMOTEO Enalapril Maleate 20 mg 09/17/17 15:45 09/17/17 17:22 Vasotec PO 20 mg DAILY TIMOTEO Administration Famotidine 20 mg 09/17/17 17:30 09/17/17 17:22 Pepcid PO 20 mg DAILY TIMOTEO Administration Heparin Sodium (Porcine) 5,000 units 09/16/17 22:00 09/17/17 14:24 Heparin SC 5,000 units Q8 TIMOTEO Administration Insulin Human Regular 0 unit 09/17/17 00:00 09/17/17 12:02 Novolin R SC Not Given Q6H [facility] Protocol Prednisone 20 mg 09/17/17 15:45 09/17/17 16:37 Prednisone Tab PO 20 mg DAILY TIMOTEO Administration - Patient Studies Lab Studies: Lab Studies 09/17/17 09/17/17 09/17/17 Range/Units 11:40 06:30 06:25 WBC 7.0 (4.8-10.8) K/uL RBC 4.22 (3.80-5.20) Mil/uL Hgb 12.0 (11.0-16.0) g/dL Hct 36.5 (34.0-47.0) % MCV 86.6 (81.0-99.0) fL MCH 28.5 (27.0-31.0) pg MCHC 32.9 L (33.0-37.0) g/dL RDW 14.8 H (11.5-14.5) % Plt Count 269 (130-400) K/uL MPV 9.8 (7.2-11.7) fL Neut % (Auto) 72.3 (50.0-75.0) % Lymph % (Auto) 21.4 (20.0-40.0) % [place] % (Auto) 5.3 (0.0-10.0) % Eos % (Auto) 0.1 (0.0-4.0) % Baso % (Auto) 0.9 (0.0-2.0) % Neut # 5.0 (1.8-7.0) K/uL Lymph # 1.5 (1.0-4.3) K/uL [place]on # 0.4 (0.0-0.8) K/uL Eos # 0.0 (0.0-0.7) K/uL Baso # 0.1 (0.0-0.2) K/uL Puncture Site pCO2 (35-45) mm/Hg pO2 (80-100) mm/Hg HCO3 (21-28) mmol/L ABG pH (7.35-7.45) ABG Total CO2 (22-28) mmol/L ABG O2 Saturation (95-98) % ABG Base Excess (-2.0-3.0) mmol/L ABG Hemoglobin (11.7-17.4) g/dL ABG Carboxyhemoglobin (0.5-1.5) % POC ABG HHb (Measured) (0.0-5.0) % ABG Methemoglobin (0.0-3.0) % Donta Test A-a O2 Difference mm/Hg Respiratory Index Hgb O2 Saturation (95.0-98.0) % Vent Mode FiO2 % Inspiratory BiPAP Expiratory BiPAP Crit Value Called To Crit Value Called By Crit Value Read Back Blood Gas Notified Time Sodium (132-148) mmol/L Potassium (3.6-5.2) mmol/L Chloride (98-107) mmol/L Carbon Dioxide (22-30) mmol/L Anion Gap (10-20) BUN (7-17) mg/dL Creatinine (0.7-1.2) mg/dL Est GFR ( Amer) Est GFR (Non-Af Amer) POC Glucose (mg/dL) 129 H 116 H (65-110) mg/dL Random Glucose (65-105) mg/dL Calcium (8.6-10.4) mg/dl Phosphorus (2.5-4.5) mg/dL Magnesium (1.6-2.3) mg/dL Total Bilirubin (0.2-1.3) mg/dL AST (14-36) U/L ALT (9-52) U/L Alkaline Phosphatase (38-126) U/L Total Protein (6.3-8.3) g/dL Albumin (3.5-5.0) g/dL Globulin (2.2-3.9) gm/dL Albumin/Globulin Ratio (1.0-2.1) 09/17/17 09/17/17 09/16/17 Range/Units 06:23 05:33 23:40 WBC (4.8-10.8) K/uL RBC (3.80-5.20) Mil/uL Hgb (11.0-16.0) g/dL Hct (34.0-47.0) % MCV (81.0-99.0) fL MCH (27.0-31.0) pg MCHC (33.0-37.0) g/dL RDW (11.5-14.5) % Plt Count (130-400) K/uL MPV (7.2-11.7) fL Neut % (Auto) (50.0-75.0) % Lymph % (Auto) (20.0-40.0) % [place] % (Auto) (0.0-10.0) % Eos % (Auto) (0.0-4.0) % Baso % (Auto) (0.0-2.0) % Neut # (1.8-7.0) K/uL Lymph # (1.0-4.3) K/uL [place] # (0.0-0.8) K/uL Eos # (0.0-0.7) K/uL Baso # (0.0-0.2) K/uL Puncture Site Rr pCO2 76 H* (35-45) mm/Hg pO2 95 (80-100) mm/Hg HCO3 30.7 H (21-28) mmol/L ABG pH 7.29 L (7.35-7.45) ABG Total CO2 38.8 H (22-28) mmol/L ABG O2 Saturation 98.4 H (95-98) % ABG Base Excess 7.4 H (-2.0-3.0) mmol/L ABG Hemoglobin 12.3 (11.7-17.4) g/dL ABG Carboxyhemoglobin 2.0 H (0.5-1.5) % POC ABG HHb (Measured) 1.6 (0.0-5.0) % ABG Methemoglobin 0.8 (0.0-3.0) % Donta Test Pos A-a O2 Difference 60.0 mm/Hg Respiratory Index 0.6 Hgb O2 Saturation 95.6 (95.0-98.0) % Vent Mode Bipap FiO2 35.0 % Inspiratory BiPAP 20 Expiratory BiPAP 10 Crit Value Called To Kate Crit Value Called By Tereso ledge man Crit Value Read Back Y Blood Gas Notified Time 602 Sodium 132 (132-148) mmol/L Potassium 4.6 (3.6-5.2) mmol/L Chloride 90 L (98-107) mmol/L Carbon Dioxide 34 H (22-30) mmol/L Anion Gap 13 (10-20) BUN 29 H (7-17) mg/dL Creatinine 0.7 (0.7-1.2) mg/dL Est GFR ( Amer) > 60 Est GFR (Non-Af Amer) > 60 POC Glucose (mg/dL) 143 H (65-110) mg/dL Random Glucose 126 H (65-105) mg/dL Calcium 8.4 L (8.6-10.4) mg/dl Phosphorus 5.3 H (2.5-4.5) mg/dL Magnesium 1.9 (1.6-2.3) mg/dL Total Bilirubin 0.4 (0.2-1.3) mg/dL AST 13 L D (14-36) U/L ALT 19 (9-52) U/L Alkaline Phosphatase 50 (38-126) U/L Total Protein 7.0 (6.3-8.3) g/dL Albumin 3.6 (3.5-5.0) g/dL Globulin 3.3 (2.2-3.9) gm/dL Albumin/Globulin Ratio 1.1 (1.0-2.1) 09/16/17 Range/Units 21:51 WBC (4.8-10.8) K/uL RBC (3.80-5.20) Mil/uL Hgb (11.0-16.0) g/dL Hct (34.0-47.0) % MCV (81.0-99.0) fL MCH (27.0-31.0) pg MCHC (33.0-37.0) g/dL RDW (11.5-14.5) % Plt Count (130-400) K/uL MPV (7.2-11.7) fL Neut % (Auto) (50.0-75.0) % Lymph % (Auto) (20.0-40.0) % [place] % (Auto) (0.0-10.0) % Eos % (Auto) (0.0-4.0) % Baso % (Auto) (0.0-2.0) % Neut # (1.8-7.0) K/uL Lymph # (1.0-4.3) K/uL [place] # (0.0-0.8) K/uL Eos # (0.0-0.7) K/uL Baso # (0.0-0.2) K/uL Puncture Site Rra pCO2 75 H* (35-45) mm/Hg pO2 92 (80-100) mm/Hg HCO3 31.6 H (21-28) mmol/L ABG pH 7.31 L (7.35-7.45) ABG Total CO2 40.1 H (22-28) mmol/L ABG O2 Saturation 97.8 (95-98) % ABG Base Excess 8.7 H (-2.0-3.0) mmol/L ABG Hemoglobin 12.8 (11.7-17.4) g/dL ABG Carboxyhemoglobin 2.1 H (0.5-1.5) % POC ABG HHb (Measured) 2.1 (0.0-5.0) % ABG Methemoglobin 1.2 (0.0-3.0) % Donta Test Na A-a O2 Difference 64.0 mm/Hg Respiratory Index 0.7 Hgb O2 Saturation 94.6 L (95.0-98.0) % Vent Mode Bipap FiO2 35.0 % Inspiratory BiPAP 20 Expiratory BiPAP 10 Crit Value Called To [facility] agricultural service worker Crit Value Called By Rowena Crit Value Read Back Y Blood Gas Notified Time 4 Sodium (132-148) mmol/L Potassium (3.6-5.2) mmol/L Chloride (98-107) mmol/L Carbon Dioxide (22-30) mmol/L Anion Gap (10-20) BUN (7-17) mg/dL Creatinine (0.7-1.2) mg/dL Est GFR ( Amer) Est GFR (Non-Af Amer) POC Glucose (mg/dL) (65-110) mg/dL Random Glucose (65-105) mg/dL Calcium (8.6-10.4) mg/dl Phosphorus (2.5-4.5) mg/dL Magnesium (1.6-2.3) mg/dL Total Bilirubin (0.2-1.3) mg/dL AST (14-36) U/L ALT (9-52) U/L Alkaline Phosphatase (38-126) U/L Total Protein (6.3-8.3) g/dL Albumin (3.5-5.0) g/dL Globulin (2.2-3.9) gm/dL Albumin/Globulin Ratio (1.0-2.1) Laboratory Results - last 24 hr 09/16/17 09/16/17 09/17/17 21:51 23:40 05:33 WBC RBC Hgb Hct MCV MCH MCHC RDW Plt Count MPV Neut % (Auto) Lymph % (Auto) [place] % (Auto) Eos % (Auto) Baso % (Auto) Neut # Lymph # [place] # Eos # Baso # Puncture Site Rra Rr pCO2 75 H* 76 H* pO2 92 95 HCO3 31.6 H 30.7 H ABG pH 7.31 L 7.29 L ABG Total CO2 40.1 H 38.8 H ABG O2 Saturation 97.8 98.4 H ABG Base Excess 8.7 H 7.4 H ABG Hemoglobin 12.8 12.3 ABG Carboxyhemoglobin 2.1 H 2.0 H POC ABG HHb (Measured) 2.1 1.6 ABG Methemoglobin 1.2 0.8 Donta Test Na Pos A-a O2 Difference 64.0 60.0 Respiratory Index 0.7 0.6 Hgb O2 Saturation 94.6 L 95.6 Vent Mode Bipap Bipap FiO2 35.0 35.0 Inspiratory BiPAP 20 20 Expiratory BiPAP 10 10 Crit Value Called To [facility] agricultural service workerangie Love Crit Value Called By Rowena Rider ledge man Crit Value Read Back Y Y Blood Gas Notified Time 2151 602 Sodium Potassium Chloride Carbon Dioxide Anion Gap BUN Creatinine Est GFR ( Amer) Est GFR (Non-Af Amer) POC Glucose (mg/dL) 143 H Random Glucose Calcium Phosphorus Magnesium Total Bilirubin AST ALT Alkaline Phosphatase Total Protein Albumin Globulin Albumin/Globulin Ratio 09/17/17 09/17/17 09/17/17 06:23 06:25 06:30 WBC 7.0 RBC 4.22 Hgb 12.0 Hct 36.5 MCV 86.6 MCH 28.5 MCHC 32.9 L RDW 14.8 H Plt Count 269 MPV 9.8 Neut % (Auto) 72.3 Lymph % (Auto) 21.4 [place] % (Auto) 5.3 Eos % (Auto) 0.1 Baso % (Auto) 0.9 Neut # 5.0 Lymph # 1.5 [place]berson # 0.4 Eos # 0.0 Baso # 0.1 Puncture Site pCO2 pO2 HCO3 ABG pH ABG Total CO2 ABG O2 Saturation ABG Base Excess ABG Hemoglobin ABG Carboxyhemoglobin POC ABG HHb (Measured) ABG Methemoglobin Donta Test A-a O2 Difference Respiratory Index Hgb O2 Saturation Vent Mode FiO2 Inspiratory BiPAP Expiratory BiPAP Crit Value Called To Crit Value Called By Crit Value Read Back Blood Gas Notified Time Sodium 132 Potassium 4.6 Chloride 90 L Carbon Dioxide 34 H Anion Gap 13 BUN 29 H Creatinine 0.7 Est GFR ( Amer) > 60 Est GFR (Non-Af Amer) > 60 POC Glucose (mg/dL) 116 H Random Glucose 126 H Calcium 8.4 L Phosphorus 5.3 H Magnesium 1.9 Total Bilirubin 0.4 AST 13 L D ALT 19 Alkaline Phosphatase 50 Total Protein 7.0 Albumin 3.6 Globulin 3.3 Albumin/Globulin Ratio 1.1 09/17/17 11:40 WBC RBC Hgb Hct MCV MCH MCHC RDW Plt Count MPV Neut % (Auto) Lymph % (Auto) [place] % (Auto) Eos % (Auto) Baso % (Auto) Neut # Lymph # [place] # Eos # Baso # Puncture Site pCO2 pO2 HCO3 ABG pH ABG Total CO2 ABG O2 Saturation ABG Base Excess ABG Hemoglobin ABG Carboxyhemoglobin POC ABG HHb (Measured) ABG Methemoglobin [place]a Test A-a O2 Difference Respiratory Index Hgb O2 Saturation Vent Mode FiO2 Inspiratory BiPAP Expiratory BiPAP Crit Value Called To Crit Value Called By Crit Value Read Back Blood Gas Notified Time Sodium Potassium Chloride Carbon Dioxide Anion Gap BUN Creatinine Est GFR ( Amer) Est GFR (Non-Af Amer) POC Glucose (mg/dL) 129 H Random Glucose Calcium Phosphorus Magnesium Total Bilirubin AST ALT Alkaline Phosphatase Total Protein Albumin Globulin Albumin/Globulin Ratio Critical Care Progress Note - Nutrition Nutrition: Nutrition Category Date Time Status Consistent Carbohydrate [DIET] Diets 09/17/17 Lunch Active Attending/Attestation - Attestation I have personally seen and examined this patient.: Yes I have fully participated in the care of the patient.: Yes I have reviewed all pertinent clinical information: Yes Notes (Text): 09/17/17 17:35 patient seen and examined in the intensive care unit. pt discussed with housestaff in the morning rounds Patient much more aphasic and responsive patient is off BiPAP Continue nebulizer treatment and steroids Continue BiPAP at night as needed Follow-up ABG
[2017-09-18] MEDS: Albuterol-Ipratrop 3 mg / 0.5 (3 ml) UD INH SCH ×4 (01:49→19:16)
[2017-09-18] MEDS ORDERED: Labetalol 25mg/5ml Syringe IVP STA (03:40)
[2017-09-18 06:29] LABS: BASO # 0.1 K/uL (0.0-0.2); BASO % 0.6 % (0.0-2.0); EOS % 0.1 % (0.0-4.0); LYMPH # 3.4 K/uL (1.0-4.3); LYMPH % 26.6 % (20.0-40.0); MEAN CORPUSCULAR HEMOGLOBIN 28.6 pg (27.0-31.0); MEAN CORPUSCULAR HGB CONC 33.2 g/dL (33.0-37.0); MEAN PLATELET VOLUME 9.3 fL (7.2-11.7); MONO # 1.2 K/uL (0.0-0.8); MONO % 9.6 % (0.0-10.0); NEUT % 63.1 % (50.0-75.0); RBC 3.86 Mil/uL (3.80-5.20); RED CELL DISTRIBUTION WIDTH 14.5 % (11.5-14.5); WHITE BLOOD COUNT 12.6 K/uL (4.8-10.8)
[2017-09-18 07:00] LABS: ALB/GLOB RATIO 1.2 (1.0-2.1); ALBUMIN 3.4 g/dL (3.5-5.0); ALT/SGPT 18 U/L (9-52); AST/SGOT 10 U/L (14-36); BLOOD UREA NITROGEN 29 mg/dL (7-17); CALCIUM 7.8 mg/dl (8.6-10.4); GFR AFRICAN-AMERICAN > 60; GFR NON-AFRICAN AMERICAN > 60
[2017-09-18] MEDS: (Novolin R) Insulin Human Regular 100 units/ml vial SC SCH ×4 (07:30→22:35)
--- NOTE | 2017-09-18 11:32 | CP.CCUPN ---
CCU Subjective - Physician Review Subjective (Free Text): 09/18/17 11:31 patient seen and examined at bedside breathing much better tolerating diet ok for transfer to [facility] no need for ICU care at this time CCU Objective - Vital Signs / Intake & Output Vital Signs (Last 4 hours): Vital Signs Temp Pulse Resp BP Pulse Ox 09/18/17 11:03 70 09/18/17 10:23 69 21 143/59 L 100 09/18/17 10:09 175/67 H 09/18/17 10:00 78 13 100 09/18/17 09:23 69 21 175/67 H 100 09/18/17 09:00 73 14 100 09/18/17 08:23 63 11 L 158/73 H 52 L 09/18/17 08:05 63 09/18/17 08:00 98.6 F 61 16 100 Intake and Output (Last 8hrs): Intake & Output 09/17/17 09/18/17 09/18/17 22:59 06:59 14:59 Intake Total 900 200 500 Output Total 305 530 260 Balance 595 -330 240 Weight 308 lb 2 oz Intake: Intake, IV Amount 0 0 0 Right Antecubital 0 0 0 Oral 900 200 500 Output: Urine 305 530 260 Urethral ([place]) 305 530 260 - Physical Exam Head: Positive for: Atraumatic, Normocephalic Pupils: Positive for: PERRL Extroacular Muscles: Positive for: EOMI Conjunctiva: Positive for: Normal Mouth: Positive for: Moist Mucous Membranes Neck: Positive for: Normal Range of Motion Respiratory/Chest: Positive for: Clear to Auscultation Cardiovascular: Positive for: Regular Rate and Rhythm Abdomen: Positive for: Normal Bowel Sounds. Negative for: Tenderness, Distention, Peritoneal Signs Psychiatric: Positive for: Alert, Oriented x 3 - Medications Active Medications: Active Medications Generic Name Dose Route Start Last Admin Trade Name Freq PRN Reason Stop Dose Admin Acetaminophen 650 mg 09/18/17 03:42 09/18/17 04:06 Tylenol 325mg Tab PO 650 mg Q6 PRN Administration Headache Albuterol/Ipratropium 3 ml 09/16/17 20:00 09/18/17 08:04 Duoneb 3 Mg/0.5 Mg (3 Ml) Ud INH 3 ml RQ6 TIMOTEO Administration Carvedilol 25 mg 09/16/17 18:00 09/16/17 18:03 Coreg PO Not Given BID TIMOTEO Enalapril Maleate 20 mg 09/17/17 15:45 09/18/17 10:09 Vasotec PO 20 mg DAILY TIM[facility]O Administration Famotidine 20 mg 09/17/17 17:30 09/18/17 10:09 Pepcid PO 20 mg DAILY TIMOTEO Administration Heparin Sodium (Porcine) 5,000 units 09/16/17 22:00 09/18/17 06:01 Heparin SC 5,000 units Q8 TIMOTEO Administration Insulin Human Regular 0 unit 09/18/17 07:30 09/18/17 07:30 Novolin R SC Not Given ACHS [facility] Protocol Prednisone 20 mg 09/17/17 15:45 09/18/17 10:09 Prednisone Tab PO 20 mg DAILY TIMOTEO Administration - Patient Studies Lab Studies: Microbiology Studies 09/16/17 17:54 MRSA Culture (Admit) - Final Naris MRSA DETECTED Lab Studies 09/18/17 09/18/17 09/18/17 Range/Units 11:01 07:25 06:19 WBC (4.8-10.8) K/uL RBC (3.80-5.20) Mil/uL Hgb (11.0-16.0) g/dL Hct (34.0-47.0) % MCV (81.0-99.0) fL MCH (27.0-31.0) pg MCHC (33.0-37.0) g/dL RDW (11.5-14.5) % Plt Count (130-400) K/uL MPV (7.2-11.7) fL Neut % (Auto) (50.0-75.0) % Lymph % (Auto) (20.0-40.0) % [place] % (Auto) (0.0-10.0) % Eos % (Auto) (0.0-4.0) % Baso % (Auto) (0.0-2.0) % Neut # (Auto) (1.8-7.0) K/uL Lymph # (Auto) (1.0-4.3) K/uL [place] # (Auto) (0.0-0.8) K/uL Eos # (Auto) (0.0-0.7) K/uL Baso # (Auto) (0.0-0.2) K/uL Sodium 127 L (132-148) mmol/L Potassium 4.2 (3.6-5.2) mmol/L Chloride 91 L (98-107) mmol/L Carbon Dioxide 33 H (22-30) mmol/L Anion Gap 7 L (10-20) BUN 29 H (7-17) mg/dL Creatinine 0.7 (0.7-1.2) mg/dL Est GFR ( Amer) > 60 Est GFR (Non-Af Amer) > 60 POC Glucose (mg/dL) 134 H 92 (65-110) mg/dL Random Glucose 98 (65-105) mg/dL Calcium 7.8 L (8.6-10.4) mg/dl Phosphorus 2.3 L (2.5-4.5) mg/dL Magnesium 2.0 (1.6-2.3) mg/dL Total Bilirubin 0.4 (0.2-1.3) mg/dL AST 10 L D (14-36) U/L ALT 18 (9-52) U/L Alkaline Phosphatase 45 (38-126) U/L Total Protein 6.2 L (6.3-8.3) g/dL Albumin 3.4 L (3.5-5.0) g/dL Globulin 2.8 (2.2-3.9) gm/dL Albumin/Globulin Ratio 1.2 (1.0-2.1) 09/18/17 09/17/17 09/17/17 Range/Units 06:18 17:46 11:40 WBC 12.6 H D (4.8-10.8) K/uL RBC 3.86 (3.80-5.20) Mil/uL Hgb 11.0 (11.0-16.0) g/dL Hct 33.2 L (34.0-47.0) % MCV 86.0 (81.0-99.0) fL MCH 28.6 (27.0-31.0) pg MCHC 33.2 (33.0-37.0) g/dL RDW 14.5 (11.5-14.5) % Plt Count 238 (130-400) K/uL MPV 9.3 (7.2-11.7) fL Neut % (Auto) 63.1 (50.0-75.0) % Lymph % (Auto) 26.6 (20.0-40.0) % [place] % (Auto) 9.6 (0.0-10.0) % Eos % (Auto) 0.1 (0.0-4.0) % Baso % (Auto) 0.6 (0.0-2.0) % Neut # (Auto) 8.0 H (1.8-7.0) K/uL Lymph # (Auto) 3.4 (1.0-4.3) K/uL [place] # (Auto) 1.2 H (0.0-0.8) K/uL Eos # (Auto) 0.0 (0.0-0.7) K/uL Baso # (Auto) 0.1 (0.0-0.2) K/uL Sodium (132-148) mmol/L Potassium (3.6-5.2) mmol/L Chloride (98-107) mmol/L Carbon Dioxide (22-30) mmol/L Anion Gap (10-20) BUN (7-17) mg/dL Creatinine (0.7-1.2) mg/dL Est GFR ( Amer) Est GFR (Non-Af Amer) POC Glucose (mg/dL) 128 H 129 H (65-110) mg/dL Random Glucose (65-105) mg/dL Calcium (8.6-10.4) mg/dl Phosphorus (2.5-4.5) mg/dL Magnesium (1.6-2.3) mg/dL Total Bilirubin (0.2-1.3) mg/dL AST (14-36) U/L ALT (9-52) U/L Alkaline Phosphatase (38-126) U/L Total Protein (6.3-8.3) g/dL Albumin (3.5-5.0) g/dL Globulin (2.2-3.9) gm/dL Albumin/Globulin Ratio (1.0-2.1) Laboratory Results - last 24 hr 09/17/17 09/17/17 09/18/17 11:40 17:46 06:18 WBC 12.6 H D RBC 3.86 Hgb 11.0 Hct 33.2 L MCV 86.0 MCH 28.6 MCHC 33.2 RDW 14.5 Plt Count 238 MPV 9.3 Neut % (Auto) 63.1 Lymph % (Auto) 26.6 [place] % (Auto) 9.6 Eos % (Auto) 0.1 Baso % (Auto) 0.6 Neut # (Auto) 8.0 H Lymph # (Auto) 3.4 [place] # (Auto) 1.2 H Eos # (Auto) 0.0 Baso # (Auto) 0.1 Sodium Potassium Chloride Carbon Dioxide Anion Gap BUN Creatinine Est GFR ( Amer) Est GFR (Non-Af Amer) POC Glucose (mg/dL) 129 H 128 H Random Glucose Calcium Phosphorus Magnesium Total Bilirubin AST ALT Alkaline Phosphatase Total Protein Albumin Globulin Albumin/Globulin Ratio 09/18/17 09/18/17 09/18/17 06:19 07:25 11:01 WBC RBC Hgb Hct MCV MCH MCHC RDW Plt Count MPV Neut % (Auto) Lymph % (Auto) [place] % (Auto) Eos % (Auto) Baso % (Auto) Neut # (Auto) Lymph # (Auto) [place] # (Auto) Eos # (Auto) Baso # (Auto) Sodium 127 L Potassium 4.2 Chloride 91 L Carbon Dioxide 33 H Anion Gap 7 L BUN 29 H Creatinine 0.7 Est GFR ( Amer) > 60 Est GFR (Non-Af Amer) > 60 POC Glucose (mg/dL) 92 134 H Random Glucose 98 Calcium 7.8 L Phosphorus 2.3 L Magnesium 2.0 Total Bilirubin 0.4 AST 10 L D ALT 18 Alkaline Phosphatase 45 Total Protein 6.2 L Albumin 3.4 L Globulin 2.8 Albumin/Globulin Ratio 1.2 Fingerstick Blood Sugar Results: 92 Critical Care Progress Note - Nutrition Nutrition: Nutrition Category Date Time Status Consistent Carbohydrate [DIET] Diets 09/17/17 Lunch Active
[2017-09-19] MEDS: Albuterol-Ipratrop 3 mg / 0.5 (3 ml) UD INH SCH ×2 (01:27→07:29)
--- NOTE | 2017-09-19 08:50 | CARD ---
APPROVED REPORT EKG Measurement Heart [id number] <Conclusion> Normal sinus rhythm poor r wave progression nonspecific st t wave abn abNormal ECG
[2017-09-19] MEDS: (Novolin R) Insulin Human Regular 100 units/ml vial SC SCH (08:54)
--- NOTE | 2017-09-19 14:00 | CP.PCM.DIS ---
Provider - Provider Date of Admission: 09/16/17 14:51 Attending physician: Hayden Tovar Jr, MD Primary care physician: Dr. Tovar Consults: Pulmonology: Dr. Romeo Time Spent in preparation of Discharge (in minutes): 45 Hospital Course - Lab Results Lab Results: Micro Results 09/16/17 17:54 Naris MRSA Culture (Admit) - Final MRSA DETECTED Most Recent Lab Values WBC 12.6 K/uL (4.8-10.8) H D 09/18/17 06:18 RBC 3.86 Mil/uL (3.80-5.20) 09/18/17 06:18 Hgb 11.0 g/dL (11.0-16.0) 09/18/17 06:18 Hct 33.2 % (34.0-47.0) L 09/18/17 06:18 MCV 86.0 fL (81.0-99.0) 09/18/17 06:18 MCH 28.6 pg (27.0-31.0) 09/18/17 06:18 MCHC 33.2 g/dL (33.0-37.0) 09/18/17 06:18 RDW 14.5 % (11.5-14.5) 09/18/17 06:18 Plt Count 238 K/uL (130-400) 09/18/17 06:18 MPV 9.3 fL (7.2-11.7) 09/18/17 06:18 Neut % (Auto) 63.1 % (50.0-75.0) 09/18/17 06:18 Lymph % (Auto) 26.6 % (20.0-40.0) 09/18/17 06:18 [place] % (Auto) 9.6 % (0.0-10.0) 09/18/17 06:18 Eos % (Auto) 0.1 % (0.0-4.0) 09/18/17 06:18 Baso % (Auto) 0.6 % (0.0-2.0) 09/18/17 06:18 Neut # (Auto) 8.0 K/uL (1.8-7.0) H 09/18/17 06:18 Lymph # (Auto) 3.4 K/uL (1.0-4.3) 09/18/17 06:18 [place] # (Auto) 1.2 K/uL (0.0-0.8) H 09/18/17 06:18 Eos # (Auto) 0.0 K/uL (0.0-0.7) 09/18/17 06:18 Baso # (Auto) 0.1 K/uL (0.0-0.2) 09/18/17 06:18 PT 10.4 SECONDS (9.7-12.2) 09/16/17 12:33 INR 0.9 09/16/17 12:33 APTT 43 SECONDS (21-34) H 09/16/17 12:33 Puncture Site Rr 09/17/17 05:33 pCO2 76 mm/Hg (35-45) H* 09/17/17 05:33 pO2 95 mm/Hg (80-100) 09/17/17 05:33 HCO3 30.7 mmol/L (21-28) H 09/17/17 05:33 ABG pH 7.29 (7.35-7.45) L 09/17/17 05:33 ABG Total CO2 38.8 mmol/L (22-28) H 09/17/17 05:33 ABG O2 Saturation 98.4 % (95-98) H 09/17/17 05:33 ABG Base Excess 7.4 mmol/L (-2.0-3.0) H 09/17/17 05:33 ABG Hemoglobin 12.3 g/dL (11.7-17.4) 09/17/17 05:33 ABG Carboxyhemoglobin 2.0 % (0.5-1.5) H 09/17/17 05:33 POC ABG HHb (Measured) 1.6 % (0.0-5.0) 09/17/17 05:33 ABG Methemoglobin 0.8 % (0.0-3.0) 09/17/17 05:33 [place] Test Pos 09/17/17 05:33 VBG pH 7.24 (7.32-7.43) L 09/16/17 12:27 VBG pCO2 95 mmHg (40-60) H* 09/16/17 12:27 VBG HCO3 32.0 mmol/L 09/16/17 12:27 VBG Total CO2 43.6 mmol/L (22-28) H 09/16/17 12:27 VBG O2 Sat (Calc) 91.6 % (40-65) H 09/16/17 12:27 VBG Base Excess 9.4 mmol/L (0.0-2.0) H 09/16/17 12:27 VBG Potassium 4.3 mmol/L (3.6-5.2) 09/16/17 12:27 A-a O2 Difference 60.0 mm/Hg 09/17/17 05:33 Respiratory Index 0.6 09/17/17 05:33 Hgb O2 Saturation 95.6 % (95.0-98.0) 09/17/17 05:33 Sodium 135.0 mmol/l (132-148) 09/16/17 12:27 Chloride 97.0 mmol/L (98-107) L 09/16/17 12:27 Glucose 148 mg/dl (65-105) H 09/16/17 12:27 Lactate 0.5 mmol/L (0.7-2.1) L 09/16/17 12:27 Vent Mode Bipap 09/17/17 05:33 FiO2 35.0 % 09/17/17 05:33 Inspiratory BiPAP 20 09/17/17 05:33 Expiratory BiPAP 10 09/17/17 05:33 Crit Value Called To Kate 09/17/17 05:33 Crit Value Called By Tereso assemblies and installations inspector 09/17/17 05:33 Crit Value Read Back Y 09/17/17 05:33 Blood Gas Notified Time 602 09/17/17 05:33 Sodium 127 mmol/L (132-148) L 09/18/17 06:19 Potassium 4.2 mmol/L (3.6-5.2) 09/18/17 06:19 Chloride 91 mmol/L (98-107) L 09/18/17 06:19 Carbon Dioxide 33 mmol/L (22-30) H 09/18/17 06:19 Anion Gap 7 (10-20) L 09/18/17 06:19 BUN 29 mg/dL (7-17) H 09/18/17 06:19 Creatinine 0.7 mg/dL (0.7-1.2) 09/18/17 06:19 Est GFR ( Amer) > 60 09/18/17 06:19 Est GFR (Non-Af Amer) > 60 09/18/17 06:19 POC Glucose (mg/dL) 150 mg/dL (65-110) H 09/19/17 11:16 Random Glucose 98 mg/dL (65-105) 09/18/17 06:19 Calcium 7.8 mg/dl (8.6-10.4) L 09/18/17 06:19 Phosphorus 2.3 mg/dL (2.5-4.5) L 09/18/17 06:19 Magnesium 2.0 mg/dL (1.6-2.3) 09/18/17 06:19 Total Bilirubin 0.4 mg/dL (0.2-1.3) 09/18/17 06:19 AST 10 U/L (14-36) L D 09/18/17 06:19 ALT 18 U/L (9-52) 09/18/17 06:19 Alkaline Phosphatase 45 U/L (38-126) 09/18/17 06:19 Troponin I 0.0140 ng/mL (0.00-0.120) 09/16/17 12:57 NT-Pro-B Natriuret Pep 370 pg/mL (0-900) 09/16/17 12:57 Total Protein 6.2 g/dL (6.3-8.3) L 09/18/17 06:19 Albumin 3.4 g/dL (3.5-5.0) L 09/18/17 06:19 Globulin 2.8 gm/dL (2.2-3.9) 09/18/17 06:19 Albumin/Globulin Ratio 1.2 (1.0-2.1) 09/18/17 06:19 Venous Blood Potassium 4.3 mmol/L (3.6-5.2) 09/16/17 12:27 Urine Color Yellow (YELLOW) 09/16/17 12:33 Urine Clarity Clear (Clear) 09/16/17 12:33 Urine pH 7.0 (5.0-8.0) 09/16/17 12:33 Ur Specific [place] 1.011 (1.003-1.030) 09/16/17 12:33 Urine Protein 2+ mg/dL (NEGATIVE) H 09/16/17 12:33 Urine Glucose (UA) Normal mg/dL (Normal) 09/16/17 12:33 Urine Ketones Trace mg/dL (NEGATIVE) 09/16/17 12:33 Urine Blood Negative (NEGATIVE) 09/16/17 12:33 Urine Nitrate Negative (NEGATIVE) 09/16/17 12:33 Urine Bilirubin Negative (NEGATIVE) 09/16/17 12:33 Urine Urobilinogen Normal mg/dL (0.2-1.0) 09/16/17 12:33 Ur Leukocyte Esterase Neg [place]/uL (Negative) 09/16/17 12:33 Urine WBC (Auto) < 1 /hpf (0-5) 09/16/17 12:33 Urine RBC (Auto) 1 /hpf (0-3) 09/16/17 12:33 Ur Squamous Epith Cells 1 /hpf (0-5) 09/16/17 12:33 - Hospital Course Hospital Course: CC: AMS HPI: Patient is a 72F with hx of COPD, HTN and Parkinsons and multiple previous hospitalizations for similar complaints is brought to ED by EMS from half-way with AMS. Pt unable to answer questions and is unresponsive at time of interview. CCU consulted after ABG reveals significant respiratory acidosis. Patient wa given duonebs x 2, solumedrol 125 and [address] Patient was place on a bipap at that time and repeat ABG was taken. She continued to be acidotic at that time in spite of improving CO2 levels. Patient will be transported to ICU at this time for closer monitoring. PMH: Anemia, anxiety, arthritis, bipolar, COPD, depression, HTN, hypothyroidism , Parkinsons, FESTUS (per chart review) PSH: Rt knee fusion, 1 ovary removed, hysterectomy, C-sections (per chart review) Fam: HTN in mom, aunt, uncle, DM in son, breast cysts in mother (per chart review) Social: 5 cig/day for 40 years, quit 10 years ago. Denies EtOH and drug use ( per chart review). Allergies: cephalosporins, PCN, clonazepam, mustard PMD: [place] Hospital Course: Patient was admitted on 09/16/17 for respiratory distress. In the ED, labs were drawn and chest xray was performed. ICU was consulted due to patients high risk of respiratory failure and patient was transferred to the ICU for continued monitoring. Chest xray on 09/16 showed poor inspiration with low lung volumes, crowded bronchovascular marking and mild bibasilar atelectasis , left greater than right; small left sided effusion. Patient was placed on BiPAP; lasix, steroids and duonebs were started. Labs showed leukocytosis, likely secondary to steroid use. Chest xray on 09/17 showed right hilar prominence, mild venous congestion, patchy increased markings at left lung base with small left pleural effusion, enlarged ectatic aorta, and cardiomegaly. Patient's history of diabetes was monitored and managed throughout hospital stay. Patient improved and was transferred to the floors on 09/18/17. Pulmonolgy , Dr. Romeo, was consulted and recommended to continue duonebs and consider trilogy-noninvasive ventilator. Patient was seen and examined at bedside. Patient has BiPAP on as needed. Patient was in no respiratory distress and reports feeling better. Patient is stable for transfer to her half-way. Patient should continue using BiPAP at half-way. Patient must follow up with PMD, Dr. Tovar, within one week of discharge. This is a brief summary of the hospital course. Please see EMR for more details. Discharge Exam - Head Exam Head Exam: ATRAUMATIC, NORMAL INSPECTION, NORMOCEPHALIC - Eye Exam Eye Exam: EOMI, Normal appearance - ENT Exam ENT Exam: Mucous Membranes Moist - Respiratory Exam Respiratory Exam: NORMAL BREATHING PATTERN. absent: Rales, Rhonchi, Wheezes, Respiratory Distress - Cardiovascular Exam Cardiovascular Exam: REGULAR RHYTHM, +S1, +S2 - GI/Abdominal Exam GI & Abdominal Exam: Normal Bowel Sounds, Soft. absent: Distended, Firm, Tenderness Additional comments: Obese - Neurological Exam Neurological exam: Alert, Oriented x3 - Psychiatric Exam Psychiatric exam: Normal Affect, Normal Mood - Skin Skin Exam: Dry, Intact, Normal Color, Warm Discharge Plan - Follow Up Plan Condition: STABLE Disposition: REHAB FACILITY/REHAB UNIT Instructions: Heart Healthy Diet (DC), COPD (Chronic Obstructive Pulmonary Disease) (DC), Hypertension (DC) Additional Instructions: [facility] all home medications. Patient must continue to use BiPAP. Patient must follow up with their PMD, Dr. Tovar, within one week of discharge. If symptoms worsen or reoccur, patient should return to the ED. Referrals: Johan Romeo MD [Staff Provider] -
[2017-09-19 15:50] VITALS: RESP 18; TEMP 98.8; O2SAT 98
[2017-09-19 16:06] VITALS: BP 155/71; PULSE 71
--- NOTE | 2017-09-19 16:09 | CP.PCM.CON ---
History of Present Illness - History of Present Illness History of Present Illness: Patient is a 72 y.o F with PMH of COPD, HTN, anemia, anxiety, hypothyroidism, FESTUS and Parkinsons presented with AMS and significant respiratory acidosis. Patient was given nebulizer treatment and Solumedrol, and placed on bipap. Patient is more responsive this morning, and tolerating diet. Off Bipap. Condition is stable. Assessment and Plan: Patient is a 72 y.o F with PMH of COPD, HTN, anemia, anxiety, hypothyroidism, FESTUS and Parkinsons presented with AMS, respiratory acidosis and co2 retention. -Continue nebulizer treatments -Patient will benefit from Trilogy- noninvasive ventilator -CXR from 09/17 showed right hilar prominence, mild venous congesion, patchy increased markings at the left lung base with small left pleural effusion. Enlarged ectatic aorta. Cardiomegaly. Past Patient History - Infectious Disease Hx of Infectious Diseases: VRE - Tetanus Immunizations Tetanus Immunization: Unknown - Past Medical History & Family History Past Medical History?: Yes - Past Social History Smoking Status: Former Smoker - CARDIAC Hx Hypertension: Yes - PULMONARY Hx Chronic Obstructive Pulmonary Disease (COPD): Yes - NEUROLOGICAL Hx Parkinson's Disease: Yes - HEENT Hx HEENT Problems: No - RENAL Hx Chronic Kidney Disease: No - ENDOCRINE/METABOLIC Hx Hypothyroidism: Yes - HEMATOLOGICAL/ONCOLOGICAL Hx Anemia: Yes - INTEGUMENTARY Hx Dermatological Problems: No - MUSCULOSKELETAL/RHEUMATOLOGICAL Hx Arthritis: Yes - GASTROINTESTINAL Hx Gastrointestinal Disorders: Yes Hx Constipation: Yes Hx Gastroesophageal Reflux: Yes - GENITOURINARY/GYNECOLOGICAL Hx Genitourinary Disorders: Yes Hx Incontinence: Yes Hx Urinary Tract Infection: Yes - PSYCHIATRIC Hx Anxiety: Yes Hx Bipolar Disorder: Yes Hx Depression: Yes Hx Substance Use: No - SURGICAL HISTORY Hx Surgeries: Yes Hx Hysterectomy: Yes Hx Orthopedic Surgery: Yes Other/Comment: right knee replacement 2015; right knee prosthesis removal s/p infection 2015 - ANESTHESIA Hx Anesthesia: Yes Hx Anesthesia Reactions: No Hx Malignant Hyperthermia: No Has any member of the family had a problem w/ anesthesia?: No Meds Home Medications: Home Medication List Medication Instructions Recorded Confirmed Type Gabapentin [Neurontin] 300 mg PO BID cap 09/19/17 Rx Allergies/Adverse Reactions: Allergies Allergy/AdvReac Type Severity Reaction Status Date / Time Cephalosporins Allergy Intermediate RASH Verified 09/16/17 12:06 Penicillins Allergy Intermediate RASH Verified 09/16/17 12:06 clonazepam [From Klonopin] Allergy Verified 09/16/17 12:06 mustard Allergy Intermediate RASH Uncoded 09/16/17 12:06 - Medications Medications: Current Medications Acetaminophen (Tylenol 325mg Tab) 650 mg PO Q6 PRN PRN Reason: Headache Last Admin: 09/18/17 12:56 Dose: 650 mg Albuterol/Ipratropium (Duoneb 3 Mg/0.5 Mg (3 Ml) Ud) 3 ml INH RQ6 [facility] Last Admin: 09/19/17 07:29 Dose: 3 ml Carvedilol (Coreg) 25 mg PO BID [facility] Last Admin: 09/16/17 18:03 Dose: Not Given Enalapril Maleate (Vasotec) 20 mg PO DAILY [facility] Last Admin: 09/19/17 09:53 Dose: 20 mg Famotidine (Pepcid) 20 mg PO DAILY [facility] Last Admin: 09/19/17 09:53 Dose: 20 mg Gabapentin (Neurontin) 300 mg PO BID [facility] Last Admin: 09/19/17 09:53 Dose: 300 mg Heparin Sodium (Porcine) (Heparin) 5,000 units SC Q8 [facility] Last Admin: 09/19/17 13:29 Dose: 5,000 units Insulin Human Regular (Novolin R) 0 unit SC ACHS [facility] PRN Reason: Protocol Last Admin: 09/19/17 08:54 Dose: Not Given Prednisone (Prednisone Tab) 20 mg PO DAILY [facility] Last Admin: 09/19/17 09:53 Dose: 20 mg Results - Vital Signs Recent Vital Signs: Last Vital Signs Temp 98.8 F 09/19/17 15:42 Pulse 71 09/19/17 16:05 Resp 18 09/19/17 15:42 BP 155/71 H 09/19/17 16:05 Pulse Ox 98 09/19/17 15:42 - Labs Result Diagrams: 09/18/17 06:18 09/18/17 06:19 Labs: Laboratory Results - last 24 hr 09/18/17 09/18/17 09/19/17 16:14 21:15 06:10 POC Glucose (mg/dL) 177 H 132 H 108 09/19/17 11:16 POC Glucose (mg/dL) 150 H
== END 2017-09-19 16:41 | DRG 191 ==
LOC: C.ER 11:47 → C.9I 14:51 → C.9E 14:51 → C.6T 09-18 16:35
PROVIDERS: ADMIT Internal Medicine; ATTEND Internal Medicine
PROC: 5A09457 Assistance with Respiratory Ventilation, 24-96 Consecutive Hours, Continuous Positive Airway Pressure (ICD-10-PCS; principal; 2017-09-17)
DX: J44.1 Chronic obstructive pulmonary disease with (acute) exacerbation (principal); E87.2 Acidosis; R06.89 Other abnormalities of breathing; G20 Parkinson's disease; R47.01 Aphasia; E11.9 Type 2 diabetes mellitus without complications; D72.829 Elevated white blood cell count, unspecified; J98.11 Atelectasis; I11.9 Hypertensive heart disease without heart failure; I51.7 Cardiomegaly; I77.819 Aortic ectasia, unspecified site; K21.9 Gastro-esophageal reflux disease without esophagitis; G47.33 Obstructive sleep apnea (adult) (pediatric); F31.9 Bipolar disorder, unspecified; E03.9 Hypothyroidism, unspecified; T38.0X5A Adverse effect of glucocorticoids and synthetic analogues, initial encounter; Z96.651 Presence of right artificial knee joint; Z87.440 Personal history of urinary (tract) infections; Z79.899 Other long term (current) drug therapy; Z87.891 Personal history of nicotine dependence; Z90.710 Acquired absence of both cervix and uterus

== ENCOUNTER 2017-12-11 16:28 | Inpatient (IN) | payer MEDICARE, MEDICAID ==
[2017-12-11 16:28] VITALS: BMI 60.2
--- NOTE | 2017-12-11 17:27 | C.PDOC ---
History Of Present Illness 72 year old female, whose PMHx includes Bipolar Disorder, COPD (on BiPAP at night), depression, hypertension, hyperthyroidism, and Parkinson's Disease, presents to the ED after being sent from her correction for evaluation of altered mental status onset earlier today. prison's initial 911 call was placed with complaint of shortness of breath. Upon medic arrival, patient appeared lethargic and was responsive but nonverbal. Patient underwent admission for altered mental status in August 2017 and was discharged in September. Patient also had an ICU admission for respiratory acidosis in Aug 2017. Patient appears lethargic in the ED but is able to shake her head to gesture "yes" or "no" to questions. Patient shakes her head gesturing "no" when asked if she is in pain or is having trouble breathing. Additional history limited secondary to patient's clinical condition. Time Seen by Provider: 12/11/17 16:44 Chief Complaint (Nursing): Altered Mental Status History Per: Patient, EMS History/Exam Limitations: Clinical Condition Onset/Duration Of Symptoms: Hrs Onset Of Symptoms: Cannot Confirm Onset Current Symptoms Are (Timing): Still Present Usual Baseline: Alert Oriented, Other (patient is verbal, alert and oriented at baseline ) Additional History Per: Patient, EMS Past Medical History Reviewed: Historical Data, Nursing Documentation, Vital Signs Vital Signs: Last Vital Signs Temp Pulse 78 12/11/17 18:28 Resp 14 12/11/17 18:05 BP 134/70 12/11/17 18:05 Pulse Ox 97 12/11/17 18:26 - Medical History PMH: Anemia, Anxiety, Arthritis, Bipolar Disorder, COPD, Depression, HTN, Hypothyroidism, Parkinson's Disease, Sleep Apnea (on Bipap) Denies: Chronic Kidney Disease Surgical History: No Surg Hx - [facility] Procedures ASSISTANCE WITH RESPIRATORY VENTILATION, 24-96 HRS, CPAP (09/16/17) CONTINUOUS INVASIVE MECHANICAL VENTILATION <96 CONSEC HRS (12/29/12) CONTINUOUS INVASIVE MECHANICAL VENTILATION =/>96 CONSEC HRS (02/28/13) DX ULTRASOUND-HEART (08/29/13) EXCISION OF RIGHT BREAST, OPEN APPROACH, DIAGNOSTIC (09/18/15) INCIS W REM OF FORIEGN BODY OR DEV FROM SKIN & SUBCUT TISSUE (08/29/13) INSERT ENDOTRACHEAL TUBE (02/28/13) INSERT INDWELLING CATH (12/26/12) INSERTION OF ENDOTRACHEAL AIRWAY INTO TRACHEA, VIA OPENING (07/14/17) INSERTION OF INFUSION DEV INTO SUP VENA CAVA, PERC APPROACH (10/21/16) NON-INVASIVE MECHANICAL VENTILATION (08/29/13) RESPIRATORY VENTILATION, 24-96 CONSECUTIVE HOURS (07/14/17) Family History: States: Unknown Family Hx - Social History Hx Tobacco Use: (Unknown) Hx Alcohol Use: No Hx Substance Use: No - Immunization History Hx Tetanus Toxoid Vaccination: No Hx Influenza Vaccination: No Hx Pneumococcal Vaccination: No (05/28/2009) Review Of Systems Review Of Systems: ROS cannot be obtained secondary to pt's inabilty to answer questions. Physical Exam - Physical Exam Appears: Non-toxic, No Acute Distress, Other (lethargic ) Skin: Normal Color, Warm, Dry Head: Atraumatic, Normacephalic Eye(s): bilateral: Normal Inspection Oral Mucosa: Moist Neck: Supple Chest: Symmetrical, No Deformity, No Tenderness Cardiovascular: Rhythm Regular, No Murmur Respiratory: Normal Breath Sounds, No Rales, No Rhonchi, No Wheezing Gastrointestinal/Abdominal: Soft, No Tenderness, No Guarding, No Rebound Extremity: Normal ROM, Capillary Refill (less than 2 seconds ) Neurological/Psych: No Normal Speech (nonverbal ), Eyes Open With Command ED Course And Treatment - Laboratory Results Result Diagrams: 12/11/17 17:37 Lab Interpretation: Abnormal (ABG PCO2 83, PO2 82 on NC, Hgb 9.0) ECG: Interpreted By Nd ECG Rhythm: Sinus Rhythm ECG Interpretation: Normal O2 Sat by Pulse Oximetry: 97 (on RA) Pulse Ox Interpretation: Normal Progress Note: Bloodwork, CXR, EKG ordered and reviewed. Patient in respiratory failure with hypercapnia. BIPAP started. Reevaluation Time: 19:40 Reassessment Condition: Improved (More alert on BIPAP. No respiratory distress. Responsive to verbal stimulation.) - Physician Consult Information Time Consulting Physician Contacted: 18:25 Physician Contacted: Hayden Tovar Jr. Outcome Of Conversation: Patient well known to him. Will admit. Requesting ICU evaluation. Disposition - Disposition Disposition: HOSPITALIZED Disposition Time: 19:41 Condition: SERIOUS - POA Present On Arrival: None - Clinical Impression Clinical Impression: Acute respiratory acidosis, Acute respiratory failure with hypoxia and hypercapnia, COPD (chronic obstructive pulmonary disease) - Scribe Statement The provider has reviewed the documentation as recorded by the Scribe (Radha Foster) Provider Attestation: All medical record entries made by the Scribe were at my direction and personally dictated by me. I have reviewed the chart and agree that the record accurately reflects my personal performance of the history, physical exam, medical decision making, and the department course for this patient. I have also personally directed, reviewed, and agree with the discharge instructions and disposition.
[2017-12-11 17:54] LABS: BASO # 0.1 K/uL (0.0-0.2); BASO % 0.7 % (0.0-2.0); EOS # 0.1 K/uL (0.0-0.7); EOS % 1.4 % (0.0-4.0); LYMPH # 1.3 K/uL (1.0-4.3); LYMPH % 14.8 % (20.0-40.0); MEAN CELL VOLUME 88.3 fL (81.0-99.0); MEAN CORPUSCULAR HEMOGLOBIN 28.4 pg (27.0-31.0); MEAN CORPUSCULAR HGB CONC 32.2 g/dL (33.0-37.0); MEAN PLATELET VOLUME 8.3 fL (7.2-11.7); MONO # 0.8 K/uL (0.0-0.8); MONO % 9.2 % (0.0-10.0); NEUT # 6.3 K/uL (1.8-7.0); NEUT % 73.9 % (50.0-75.0); RBC 3.16 Mil/uL (3.80-5.20); RED CELL DISTRIBUTION WIDTH 14.7 % (11.5-14.5); WHITE BLOOD COUNT 8.5 K/uL (4.8-10.8)
[2017-12-11 17:55] LABS: ARTERIAL BLOOD GAS O2 SAT 96.8 % (95-98); ARTERIAL BLOOD GAS PCO2 83 mm/Hg (35-45); ARTERIAL BLOOD GAS PH 7.27 (7.35-7.45); ARTERIAL BLOOD GAS PO2 82 mm/Hg (80-100); ARTERIAL BLOOD GAS TCO2 40.6 mmol/L (22-28)
[2017-12-11 20:31] LABS: ABG ALLEN TEST POS; ARTERIAL BLOOD GAS O2 SAT 98.9 % (95-98); ARTERIAL BLOOD GAS PCO2 79 mm/Hg (35-45); ARTERIAL BLOOD GAS PH 7.28 (7.35-7.45); ARTERIAL BLOOD GAS PO2 117 mm/Hg (80-100); ARTERIAL BLOOD GAS TCO2 39.5 mmol/L (22-28)
--- NOTE | 2017-12-11 20:39 | CP.PCM.CON ---
History of Present Illness - History of Present Illness History of Present Illness: 72yo F. PMHx COPD (former smoker), HTN, Parkinsons, bipolar disorder, FESTUS, morbid obesity, obesity hypoovenitlation, anxiety, arthritis, and multiple hospitalizations for hypercarbic respiratory failure with AMS. presents with recurrent hypercarbic respiratory failure with AMS. Review of Systems - Review of Systems Systems not reviewed;Unavailable: Altered Mental Status Past Patient History - Infectious Disease Hx of Infectious Diseases: VRE - Tetanus Immunizations Tetanus Immunization: Unknown - Past Medical History & Family History Past Medical History?: Yes - Past Social History Smoking Status: Former Smoker - CARDIAC Hx Hypertension: Yes - PULMONARY Hx Chronic Obstructive Pulmonary Disease (COPD): Yes Hx Sleep Apnea: Yes (on Bipap) - NEUROLOGICAL Hx Parkinson's Disease: Yes - HEENT Hx HEENT Problems: No - RENAL Hx Chronic Kidney Disease: No - ENDOCRINE/METABOLIC Hx Hypothyroidism: Yes - HEMATOLOGICAL/ONCOLOGICAL Hx Anemia: Yes - INTEGUMENTARY Hx Dermatological Problems: No - MUSCULOSKELETAL/RHEUMATOLOGICAL Hx Arthritis: Yes - GASTROINTESTINAL Hx Gastrointestinal Disorders: Yes Hx Constipation: Yes Hx Gastroesophageal Reflux: Yes - GENITOURINARY/GYNECOLOGICAL Hx Genitourinary Disorders: Yes Hx Incontinence: Yes Hx Urinary Tract Infection: Yes - PSYCHIATRIC Hx Anxiety: Yes Hx Bipolar Disorder: Yes Hx Depression: Yes Hx Substance Use: No - SURGICAL HISTORY Hx Surgeries: Yes Hx Hysterectomy: Yes Hx Orthopedic Surgery: Yes Other/Comment: right knee replacement 2014; right knee prosthesis removal s/p infection 2014 - ANESTHESIA Hx Anesthesia: Yes Hx Anesthesia Reactions: No Hx Malignant Hyperthermia: No Meds Allergies/Adverse Reactions: Allergies Allergy/AdvReac Type Severity Reaction Status Date / Time Cephalosporins Allergy Intermediate RASH Verified 12/11/17 16:41 Penicillins Allergy Intermediate RASH Verified 12/11/17 16:41 clonazepam [From Klonopin] Allergy Verified 12/11/17 16:41 mustard Allergy Intermediate RASH Uncoded 12/11/17 16:41 Physical Exam - Head Exam Head Exam: ATRAUMATIC, NORMAL INSPECTION, NORMOCEPHALIC - Eye Exam Eye Exam: EOMI, Normal appearance, PERRL Pupil Exam: NORMAL ACCOMODATION, PERRL - ENT Exam ENT Exam: Mucous Membranes Moist, Normal Exam - Respiratory Exam Respiratory Exam: Decreased Breath Sounds (at bases), Clear to Auscultation Bilateral, NORMAL BREATHING PATTERN - Cardiovascular Exam Cardiovascular Exam: REGULAR RHYTHM - GI/Abdominal Exam GI & Abdominal Exam: Normal Bowel Sounds, Soft. absent: Tenderness - Extremities Exam Extremities exam: Positive for: normal inspection - Neurological Exam Neurological exam: Alert - Psychiatric Exam Additional comments: lethargic Results - Vital Signs Recent Vital Signs: Last Vital Signs Temp Pulse 69 12/11/17 20:24 Resp 16 12/11/17 20:24 BP 139/70 12/11/17 20:24 Pulse Ox 97 12/11/17 20:24 - Labs Result Diagrams: 12/11/17 17:37 12/11/17 20:24 Labs: Laboratory Results - last 24 hr 12/11/17 12/11/17 12/11/17 16:40 17:37 17:51 WBC 8.5 RBC 3.16 L Hgb 9.0 L D Hct 27.9 L MCV 88.3 D MCH 28.4 MCHC 32.2 L RDW 14.7 H Plt Count 226 MPV 8.3 Neut % (Auto) 73.9 Lymph % (Auto) 14.8 L [place] % (Auto) 9.2 Eos % (Auto) 1.4 Baso % (Auto) 0.7 Neut # (Auto) 6.3 Lymph # (Auto) 1.3 [place] # (Auto) 0.8 Eos # (Auto) 0.1 Baso # (Auto) 0.1 Puncture Site B pCO2 83 H* pO2 82 HCO3 31.0 H ABG pH 7.27 L ABG Total CO2 40.6 H ABG O2 Saturation 96.8 ABG Base Excess 7.9 H ABG Hemoglobin ABG Carboxyhemoglobin POC ABG HHb (Measured) ABG Methemoglobin Donta Test Na ABG Potassium 4.2 A-a O2 Difference 71.0 Respiratory Index 0.9 Hgb O2 Saturation Sodium 127.0 L Chloride 91.0 L Glucose 133 H Lactate 0.6 L Liter Flow 4.0 Vent Mode Mechanical Rate FiO2 36.0 Inspiratory BiPAP Expiratory BiPAP Crit Value Called To Amy Crit Value Called By Ponce barrientos Crit Value Read Back Y Blood Gas Notified Time 1750 POC Glucose (mg/dL) 152 H Arterial Blood Potassium 4.2 12/11/17 20:25 WBC RBC Hgb Hct MCV MCH MCHC RDW Plt Count MPV Neut % (Auto) Lymph % (Auto) [place] % (Auto) Eos % (Auto) Baso % (Auto) Neut # (Auto) Lymph # (Auto) [place] # (Auto) Eos # (Auto) Baso # (Auto) Puncture Site Rradial pCO2 79 H* pO2 117 H HCO3 31.0 H ABG pH 7.28 L ABG Total CO2 39.5 H ABG O2 Saturation 98.9 H ABG Base Excess 7.8 H ABG Hemoglobin 12.0 ABG Carboxyhemoglobin 1.9 H POC ABG HHb (Measured) 1.1 ABG Methemoglobin 1.1 Donta Test Pos ABG Potassium A-a O2 Difference 34.0 Respiratory Index 0.3 Hgb O2 Saturation 95.9 Sodium Chloride Glucose Lactate Liter Flow Vent Mode Bipap Mechanical Rate 20 FiO2 35.0 Inspiratory BiPAP 25 Expiratory BiPAP 10 Crit Value Called To Crit Value Called By Lacey rosas rcp Crit Value Read Back Y Blood Gas Notified Time 2030 POC Glucose (mg/dL) Arterial Blood Potassium Assessment & Plan (1) Acute respiratory failure with hypercapnia Assessment and Plan: 72yo F. PMHx COPD (former smoker), HTN, Parkinsons, bipolar disorder, FSETUS, morbid obesity, obesity hypoovenitlation, anxiety, arthritis, and multiple hospitalizations for hypercarbic respiratory failure with AMS. presents with recurrent hypercarbic respiratory failure with AMS. Neuro: alert, follows commands, metabolic encephalopathy from hypercarbia. Pulm: acute respiratory failure with hypercarbia secondary to FESTUS, started on BIPAP. COPD continue steroids, duonebs. CV: hemodynamically stable Hem: anemia of chronic disease Renal: no acute issues, urine output wnl Endo: no acute issues GI: NPO while on BIPAP ID: empiric azithromycin, for possible atypical colonization. DVT proph - lovenox GI proph - not currently indicated Code status - Full code Critical Care Time spent 35 minutes Multi-disciplinary rounds were performed with house staff, nursing, speech therapy, respiratory therapy, pharmacy and nutrition with integrated input from the primary team/attending and other consulting services. The documented time is cumulative and includes review of patient data/exams/labs/chart review and examination of the patient on rounds and throughout the day; time is exclusive of any procedures or teaching time. Status: Acute
[2017-12-11 20:48] LABS: ALBUMIN 3.6 g/dL (3.5-5.0); AST/SGOT 14 U/L (14-36); BLOOD UREA NITROGEN 16 mg/dL (7-17); CALCIUM 8.7 mg/dl (8.6-10.4); GFR AFRICAN-AMERICAN > 60; GFR NON-AFRICAN AMERICAN > 60
[2017-12-11 20:52] LABS: ALT/SGPT < 6 U/L (9-52)
[2017-12-11 20:59] LABS: B-TYPE NATRIURETIC PEPTIDE 334 pg/mL (0-900)
[2017-12-11] MEDS ORDERED: Sodium Chloride 0.9% 1,000 ML IV SCH (21:15)
[2017-12-11 22:37] LABS: ARTERIAL BLOOD GAS HCO3 29.1 mmol/L (21-28); ARTERIAL BLOOD GAS HEMOGLOBIN 12.1 g/dL (11.7-17.4); ARTERIAL BLOOD GAS O2 SAT 97.7 % (95-98); ARTERIAL BLOOD GAS PCO2 85 mm/Hg (35-45); ARTERIAL BLOOD GAS PH 7.23 (7.35-7.45); ARTERIAL BLOOD GAS PO2 91 mm/Hg (80-100); ARTERIAL BLOOD GAS TCO2 38.2 mmol/L (22-28)
[2017-12-12] MEDS: MethylPREDNISolone 40 mg Vial IVP SCH ×4 (00:06→18:18)
[2017-12-12] MEDS: Albuterol-Ipratrop 3 mg / 0.5 (3 ml) UD INH SCH ×6 (00:09→19:11)
[2017-12-12 05:56] LABS: ABG ALLEN TEST POS; ARTERIAL BLOOD GAS HCO3 29.3 mmol/L (21-28); ARTERIAL BLOOD GAS HEMOGLOBIN 13.3 g/dL (11.7-17.4); ARTERIAL BLOOD GAS O2 SAT 97.5 % (95-98); ARTERIAL BLOOD GAS PCO2 87 mm/Hg (35-45); ARTERIAL BLOOD GAS PH 7.23 (7.35-7.45); ARTERIAL BLOOD GAS PO2 87 mm/Hg (80-100); ARTERIAL BLOOD GAS TCO2 39.1 mmol/L (22-28)
[2017-12-12 06:36] LABS: BASO % 0.2 % (0.0-2.0); EOS % 0.1 % (0.0-4.0); LYMPH # 0.8 K/uL (1.0-4.3); LYMPH % 8.9 % (20.0-40.0); MEAN CELL VOLUME 85.9 fL (81.0-99.0); MEAN CORPUSCULAR HEMOGLOBIN 28.2 pg (27.0-31.0); MEAN CORPUSCULAR HGB CONC 32.9 g/dL (33.0-37.0); MEAN PLATELET VOLUME 8.9 fL (7.2-11.7); MONO % 0.5 % (0.0-10.0); NEUT # 8.5 K/uL (1.8-7.0); NEUT % 90.3 % (50.0-75.0); PLATELET COUNT 296 K/uL (130-400); RBC 4.47 Mil/uL (3.80-5.20); WHITE BLOOD COUNT 9.4 K/uL (4.8-10.8)
--- NOTE | 2017-12-12 06:51 | RAD ---
Chest x-ray single frontal view History: Shortness of breath. Comparison: 09/16/2017 Findings: Moderate venous congestion. Small left pleural effusion. Patchy increased consolidative changes in the right infrahilar region as well as at the left mid to lower lung zone. Cardiomegaly. Calcification at the aortic knob. Degenerative changes in the spine and shoulders. Impression: Moderate venous congestion. Small left pleural effusion. Patchy increased consolidative changes in the right infrahilar region as well as at the left mid to lower lung zone. Cardiomegaly. Calcification at the aortic knob.
[2017-12-12 06:53] LABS: ALBUMIN 3.9 g/dL (3.5-5.0); ALT/SGPT 7 U/L (9-52); AST/SGOT 13 U/L (14-36); BLOOD UREA NITROGEN 14 mg/dL (7-17); CALCIUM 8.9 mg/dl (8.6-10.4); GFR AFRICAN-AMERICAN > 60; GFR NON-AFRICAN AMERICAN > 60
[2017-12-12 07:17] LABS: HEMOGLOBIN 12.6 g/dL (11.0-16.0)
[2017-12-12] MEDS ORDERED: Enalaprilat 2.5 MG/2 ML IV ONE (07:45)
[2017-12-12] MEDS ORDERED: (Novolog) Insulin Aspart, Recombinant 100 u/ml 10 ml vial SC SCH (08:45)
[2017-12-12] MEDS: Enoxaparin 40 mg Syringe SC SCH (10:21)
[2017-12-12] MEDS: Azithromycin 500 MG in Sodium Chloride 0.9% 250 ML IVPB SCH (10:21)
[2017-12-12 10:40] LABS: ANISOCYTOSIS SLIGHT; LYMPHOCYTE 8 % (20-40); MONOCYTE 1 % (0-10); NEUTROPHIL 91 % (50-75); PLATELET ESTIMATE NORMAL (NORMAL); TOTAL CELLS COUNTED 100
[2017-12-12 10:41] LABS: LARGE PLATELETS PRESENT; TARGET CELLS SLIGHT
[2017-12-12] MEDS: (Novolog) Insulin Aspart, Recombinant 100 u/ml 10 ml vial SC SCH ×2 (12:16→18:19)
--- NOTE | 2017-12-12 14:39 | CP.CCUPN ---
<Jasen Chaudhary S - Last Filed: 12/12/17 14:28> CCU Subjective - Physician Review Subjective (Free Text): 12/12/17 14:28 Patient seen and examined. Patient is arousable to noxious stimuli as well as loud verbal stimuli. When asked how she was doing, the patient nodded her head. Could not ascertain ROS at this time. CCU Objective - Vital Signs / Intake & Output Vital Signs (Last 4 hours): Vital Signs Temp Pulse Resp BP Pulse Ox 12/12/17 13:10 72 12/12/17 13:00 71 15 96 12/12/17 12:50 71 18 97 12/12/17 12:40 71 14 97 12/12/17 12:36 71 12 149/64 12/12/17 12:30 72 15 97 12/12/17 12:20 73 10 L 97 12/12/17 12:10 73 11 L 96 12/12/17 12:00 98.2 F 72 20 95 12/12/17 11:50 70 12 99 12/12/17 11:40 69 16 99 12/12/17 11:37 71 16 112/55 L 89 L 12/12/17 11:30 71 20 97 12/12/17 11:20 75 25 H 96 12/12/17 11:19 75 12/12/17 11:10 78 18 100 12/12/17 11:00 86 17 100 12/12/17 10:50 88 19 100 12/12/17 10:40 83 12 98 12/12/17 10:36 89 14 168/65 H 100 12/12/17 10:30 86 15 100 Intake and Output (Last 8hrs): Intake & Output 12/11/17 12/12/17 12/12/17 22:59 06:59 14:59 Intake Total 75 600 460 Output Total 220 450 Balance 75 380 10 Weight 350 lb 299 lb 13.259 oz Intake: Intake, IV Amount 75 600 400 left thumb 75 600 400 left thumb 0 Oral 60 Output: Urine 220 450 Urine, Voided 220 450 Other: # Voids Urine, Voided 1 - Physical Exam Head: Positive for: Atraumatic, Normocephalic Pupils: Positive for: PERRL Extroacular Muscles: Positive for: EOMI Mouth: Positive for: Moist Mucous Membranes Respiratory/Chest: Positive for: Decreased Breath Sounds Cardiovascular: Positive for: Regular Rate and Rhythm, Normal S1, S2 Abdomen: Positive for: Normal Bowel Sounds. Negative for: Tenderness Upper Extremity: Negative for: Edema Lower Extremity: Positive for: Edema Skin: Positive for: Warm, Dry - Medications Active Medications: Active Medications Generic Name Dose Route Start Last Admin Trade Name Freq PRN Reason Stop Dose Admin Albuterol/Ipratropium 3 ml 12/12/17 00:00 12/12/17 11:19 Duoneb 3 Mg/0.5 Mg (3 Ml) Ud INH 3 ml RQ4 TIMOTEO Administration Carvedilol 25 mg 12/12/17 10:00 12/12/17 10:21 Coreg PO 25 mg BID TIMOTEO Administration Clonidine HCl 0.1 mg 12/12/17 10:00 12/12/17 10:20 Catapres PO 0.1 mg BID TIMOTEO Administration Enoxaparin Sodium 40 mg 12/12/17 10:00 12/12/17 10:21 Lovenox SC 40 mg DAILY TIMOTEO Administration Famotidine 20 mg 12/12/17 10:00 12/12/17 10:21 Pepcid PO 20 mg BID TIMOTEO Administration Furosemide 40 mg 12/12/17 10:00 12/12/17 10:21 Lasix IVP 40 mg DAILY TIMOTEO Administration Azithromycin 500 mg/ Sodium 250 mls @ 250 mls/hr 12/12/17 10:00 12/12/17 10: 21 Chloride IVPB 12/17/17 10:01 250 mls/hr DAILY TIMOTEO Administration Protocol Insulin Aspart 0 unit 12/12/17 12:00 12/12/17 12:16 Novolog SC Not Given Q6 [facility] Protocol Insulin Detemir 14 unit 12/12/17 22:00 Levemir SC HS TIMOTEO Methylprednisolone 40 mg 12/12/17 00:00 12/12/17 12:19 Solu-Medrol IVP 12/13/17 18:01 40 mg Q6 TIMOTEO Administration Pneumococcal Polyvalent Vaccine 0.5 ml 12/13/17 10:00 Pneumovax 23 Vaccine IM 12/13/17 10:01 .ONCE ONE - Patient Studies Lab Studies: Lab Studies 12/12/17 12/12/17 12/12/17 Range/Units 11:32 09:46 06:30 WBC (4.8-10.8) K/uL RBC (3.80-5.20) Mil/uL Hgb (11.0-16.0) g/dL Hct (34.0-47.0) % MCV (81.0-99.0) fL MCH (27.0-31.0) pg MCHC (33.0-37.0) g/dL RDW (11.5-14.5) % Plt Count (130-400) K/uL MPV (7.2-11.7) fL Neut % (Auto) (50.0-75.0) % Lymph % (Auto) (20.0-40.0) % Reeves % (Auto) (0.0-10.0) % Eos % (Auto) (0.0-4.0) % Baso % (Auto) (0.0-2.0) % Neut # (Auto) (1.8-7.0) K/uL Lymph # (Auto) (1.0-4.3) K/uL Reeves # (Auto) (0.0-0.8) K/uL Eos # (Auto) (0.0-0.7) K/uL Baso # (Auto) (0.0-0.2) K/uL Neutrophils % (Manual) (50-75) % Lymphocytes % (Manual) (20-40) % Monocytes % (Manual) (0-10) % Platelet Estimate (NORMAL) Large Platelets Anisocytosis (manual) Target Cells Puncture Site pCO2 (35-45) mm/Hg pO2 (80-100) mm/Hg HCO3 (21-28) mmol/L ABG pH (7.35-7.45) ABG Total CO2 (22-28) mmol/L ABG O2 Saturation (95-98) % ABG Base Excess (-2.0-3.0) mmol/L ABG Hemoglobin (11.7-17.4) g/dL ABG Carboxyhemoglobin (0.5-1.5) % POC ABG HHb (Measured) (0.0-5.0) % ABG Methemoglobin (0.0-3.0) % Donta Test ABG Potassium (3.6-5.2) mmol/L A-a O2 Difference mm/Hg Respiratory Index Hgb O2 Saturation (95.0-98.0) % Sodium 134 (132-148) mmol/l Chloride 90 L (98-107) mmol/L Glucose (65-105) mg/dl Lactate (0.7-2.1) mmol/L Liter Flow Vent Mode Mechanical Rate FiO2 % Inspiratory BiPAP Expiratory BiPAP Crit Value Called To Crit Value Called By Crit Value Read Back Blood Gas Notified Time Potassium 4.4 (3.6-5.2) mmol/L Carbon Dioxide 34 H (22-30) mmol/L Anion Gap 15 (10-20) BUN 14 (7-17) mg/dL Creatinine 0.6 L (0.7-1.2) mg/dL Est GFR ( Amer) > 60 Est GFR (Non-Af Amer) > 60 POC Glucose (mg/dL) 143 H (65-110) mg/dL Random Glucose 163 H (65-105) mg/dL Hemoglobin A1c 6.3 (4.2-6.5) % Calcium 8.9 (8.6-10.4) mg/dl Phosphorus 5.5 H (2.5-4.5) mg/dL Magnesium 2.0 (1.6-2.3) mg/dL Total Bilirubin 0.3 (0.2-1.3) mg/dL AST 13 L (14-36) U/L ALT 7 L (9-52) U/L Alkaline Phosphatase 60 (38-126) U/L Troponin I (0.00-0.120) ng/mL NT-Pro-B Natriuret Pep (0-900) pg/mL Total Protein 7.6 (6.3-8.3) g/dL Albumin 3.9 (3.5-5.0) g/dL Globulin 3.7 (2.2-3.9) gm/dL Albumin/Globulin Ratio 1.0 (1.0-2.1) Arterial Blood Potassium (3.6-5.2) mmol/L 12/12/17 12/12/17 12/11/17 Range/Units 06:28 05:36 22:33 WBC 9.4 (4.8-10.8) K/uL RBC 4.47 (3.80-5.20) Mil/uL Hgb 12.6 D (11.0-16.0) g/dL Hct 38.4 (34.0-47.0) % MCV 85.9 D (81.0-99.0) fL MCH 28.2 (27.0-31.0) pg MCHC 32.9 L (33.0-37.0) g/dL RDW 15.0 H (11.5-14.5) % Plt Count 296 (130-400) K/uL MPV 8.9 (7.2-11.7) fL Neut % (Auto) 90.3 H (50.0-75.0) % Lymph % (Auto) 8.9 L (20.0-40.0) % Reeves % (Auto) 0.5 (0.0-10.0) % Eos % (Auto) 0.1 (0.0-4.0) % Baso % (Auto) 0.2 (0.0-2.0) % Neut # (Auto) 8.5 H (1.8-7.0) K/uL Lymph # (Auto) 0.8 L (1.0-4.3) K/uL Reeves # (Auto) 0.0 (0.0-0.8) K/uL Eos # (Auto) 0.0 (0.0-0.7) K/uL Baso # (Auto) 0.0 (0.0-0.2) K/uL Neutrophils % (Manual) 91 H (50-75) % Lymphocytes % (Manual) 8 L (20-40) % Monocytes % (Manual) 1 (0-10) % Platelet Estimate Normal (NORMAL) Large Platelets Present Anisocytosis (manual) Slight Target Cells Slight Puncture Site Rr Rra pCO2 87 H* 85 H* (35-45) mm/Hg pO2 87 91 (80-100) mm/Hg HCO3 29.3 H 29.1 H (21-28) mmol/L ABG pH 7.23 L 7.23 L (7.35-7.45) ABG Total CO2 39.1 H 38.2 H (22-28) mmol/L ABG O2 Saturation 97.5 97.7 (95-98) % ABG Base Excess 5.7 H 5.4 H (-2.0-3.0) mmol/L ABG Hemoglobin 13.3 12.1 (11.7-17.4) g/dL ABG Carboxyhemoglobin 2.0 H 1.9 H (0.5-1.5) % POC ABG HHb (Measured) 2.4 2.2 (0.0-5.0) % ABG Methemoglobin 0.8 0.9 (0.0-3.0) % Donta Test Pos Na ABG Potassium (3.6-5.2) mmol/L A-a O2 Difference 54.0 52.0 mm/Hg Respiratory Index 0.6 0.6 Hgb O2 Saturation 94.9 L 95.0 (95.0-98.0) % Sodium (132-148) mmol/l Chloride (98-107) mmol/L Glucose (65-105) mg/dl Lactate (0.7-2.1) mmol/L Liter Flow Vent Mode Bipap Bipap Mechanical Rate 20 FiO2 35.0 35.0 % Inspiratory BiPAP 20 20 Expiratory BiPAP 10 10 Crit Value Called To Clarence granger rn Fela interior horticulturist Crit Value Called By Tereso tool supervisor Lendl Crit Value Read Back Y Y Blood Gas Notified Time 071 [id number] Potassium (3.6-5.2) mmol/L Carbon Dioxide (22-30) mmol/L Anion Gap (10-20) BUN (7-17) mg/dL Creatinine (0.7-1.2) mg/dL Est GFR ( Amer) Est GFR (Non-Af Amer) POC Glucose (mg/dL) (65-110) mg/dL Random Glucose (65-105) mg/dL Hemoglobin A1c (4.2-6.5) % Calcium (8.6-10.4) mg/dl Phosphorus (2.5-4.5) mg/dL Magnesium (1.6-2.3) mg/dL Total Bilirubin (0.2-1.3) mg/dL AST (14-36) U/L ALT (9-52) U/L Alkaline Phosphatase (38-126) U/L Troponin I (0.00-0.120) ng/mL NT-Pro-B Natriuret Pep (0-900) pg/mL Total Protein (6.3-8.3) g/dL Albumin (3.5-5.0) g/dL Globulin (2.2-3.9) gm/dL Albumin/Globulin Ratio (1.0-2.1) Arterial Blood Potassium (3.6-5.2) mmol/L 12/11/17 12/11/17 12/11/17 Range/Units 20:25 20:24 17:51 WBC (4.8-10.8) K/uL RBC (3.80-5.20) Mil/uL Hgb (11.0-16.0) g/dL Hct (34.0-47.0) % MCV (81.0-99.0) fL MCH (27.0-31.0) pg MCHC (33.0-37.0) g/dL RDW (11.5-14.5) % Plt Count (130-400) K/uL MPV (7.2-11.7) fL Neut % (Auto) (50.0-75.0) % Lymph % (Auto) (20.0-40.0) % Reeves % (Auto) (0.0-10.0) % Eos % (Auto) (0.0-4.0) % Baso % (Auto) (0.0-2.0) % Neut # (Auto) (1.8-7.0) K/uL Lymph # (Auto) (1.0-4.3) K/uL Reeves # (Auto) (0.0-0.8) K/uL Eos # (Auto) (0.0-0.7) K/uL Baso # (Auto) (0.0-0.2) K/uL Neutrophils % (Manual) (50-75) % Lymphocytes % (Manual) (20-40) % Monocytes % (Manual) (0-10) % Platelet Estimate (NORMAL) Large Platelets Anisocytosis (manual) Target Cells Puncture Site Rradial B pCO2 79 H* 83 H* (35-45) mm/Hg pO2 117 H 82 (80-100) mm/Hg HCO3 31.0 H 31.0 H (21-28) mmol/L ABG pH 7.28 L 7.27 L (7.35-7.45) ABG Total CO2 39.5 H 40.6 H (22-28) mmol/L ABG O2 Saturation 98.9 H 96.8 (95-98) % ABG Base Excess 7.8 H 7.9 H (-2.0-3.0) mmol/L ABG Hemoglobin 12.0 (11.7-17.4) g/dL ABG Carboxyhemoglobin 1.9 H (0.5-1.5) % POC ABG HHb (Measured) 1.1 (0.0-5.0) % ABG Methemoglobin 1.1 (0.0-3.0) % Donta Test Pos Na ABG Potassium 4.2 (3.6-5.2) mmol/L A-a O2 Difference 34.0 71.0 mm/Hg Respiratory Index 0.3 0.9 Hgb O2 Saturation 95.9 (95.0-98.0) % Sodium 125 L 127.0 L (132-148) mmol/l Chloride 84 L 91.0 L (98-107) mmol/L Glucose 133 H (65-105) mg/dl Lactate 0.6 L (0.7-2.1) mmol/L Liter Flow 4.0 Vent Mode Bipap Mechanical Rate 20 FiO2 35.0 36.0 % Inspiratory BiPAP 25 Expiratory BiPAP 10 Crit Value Called To Dr.verano Reyes Crit Value Called By nanette Irene Crit Value Read Back Y Y Blood Gas Notified Time 2030 175 Potassium 4.2 (3.6-5.2) mmol/L Carbon Dioxide 31 H (22-30) mmol/L Anion Gap 14 (10-20) BUN 16 (7-17) mg/dL Creatinine 0.8 (0.7-1.2) mg/dL Est GFR ( Amer) > 60 Est GFR (Non-Af Amer) > 60 POC Glucose (mg/dL) (65-110) mg/dL Random Glucose 126 H (65-105) mg/dL Hemoglobin A1c (4.2-6.5) % Calcium 8.7 (8.6-10.4) mg/dl Phosphorus (2.5-4.5) mg/dL Magnesium 1.9 (1.6-2.3) mg/dL Total Bilirubin 0.4 (0.2-1.3) mg/dL AST 14 D (14-36) U/L ALT < 6 L D (9-52) U/L Alkaline Phosphatase 53 (38-126) U/L Troponin I < 0.0120 (0.00-0.120) ng/mL NT-Pro-B Natriuret Pep 334 (0-900) pg/mL Total Protein 7.2 (6.3-8.3) g/dL Albumin 3.6 (3.5-5.0) g/dL Globulin 3.6 (2.2-3.9) gm/dL Albumin/Globulin Ratio 1.0 (1.0-2.1) Arterial Blood Potassium 4.2 (3.6-5.2) mmol/L 12/11/17 12/11/17 Range/Units 17:37 16:40 WBC 8.5 (4.8-10.8) K/uL RBC 3.16 L (3.80-5.20) Mil/uL Hgb 9.0 L D (11.0-16.0) g/dL Hct 27.9 L (34.0-47.0) % MCV 88.3 D (81.0-99.0) fL MCH 28.4 (27.0-31.0) pg MCHC 32.2 L (33.0-37.0) g/dL RDW 14.7 H (11.5-14.5) % Plt Count 226 (130-400) K/uL MPV 8.3 (7.2-11.7) fL Neut % (Auto) 73.9 (50.0-75.0) % Lymph % (Auto) 14.8 L (20.0-40.0) % Reeves % (Auto) 9.2 (0.0-10.0) % Eos % (Auto) 1.4 (0.0-4.0) % Baso % (Auto) 0.7 (0.0-2.0) % Neut # (Auto) 6.3 (1.8-7.0) K/uL Lymph # (Auto) 1.3 (1.0-4.3) K/uL Reeves # (Auto) 0.8 (0.0-0.8) K/uL Eos # (Auto) 0.1 (0.0-0.7) K/uL Baso # (Auto) 0.1 (0.0-0.2) K/uL Neutrophils % (Manual) (50-75) % Lymphocytes % (Manual) (20-40) % Monocytes % (Manual) (0-10) % Platelet Estimate (NORMAL) Large Platelets Anisocytosis (manual) Target Cells Puncture Site pCO2 (35-45) mm/Hg pO2 (80-100) mm/Hg HCO3 (21-28) mmol/L ABG pH (7.35-7.45) ABG Total CO2 (22-28) mmol/L ABG O2 Saturation (95-98) % ABG Base Excess (-2.0-3.0) mmol/L ABG Hemoglobin (11.7-17.4) g/dL ABG Carboxyhemoglobin (0.5-1.5) % POC ABG HHb (Measured) (0.0-5.0) % ABG Methemoglobin (0.0-3.0) % Donta Test ABG Potassium (3.6-5.2) mmol/L A-a O2 Difference mm/Hg Respiratory Index Hgb O2 Saturation (95.0-98.0) % Sodium (132-148) mmol/l Chloride (98-107) mmol/L Glucose (65-105) mg/dl Lactate (0.7-2.1) mmol/L Liter Flow Vent Mode Mechanical Rate FiO2 % Inspiratory BiPAP Expiratory BiPAP Crit Value Called To Crit Value Called By Crit Value Read Back Blood Gas Notified Time Potassium (3.6-5.2) mmol/L Carbon Dioxide (22-30) mmol/L Anion Gap (10-20) BUN (7-17) mg/dL Creatinine (0.7-1.2) mg/dL Est GFR ( Amer) Est GFR (Non-Af Amer) POC Glucose (mg/dL) 152 H (65-110) mg/dL Random Glucose (65-105) mg/dL Hemoglobin A1c (4.2-6.5) % Calcium (8.6-10.4) mg/dl Phosphorus (2.5-4.5) mg/dL Magnesium (1.6-2.3) mg/dL Total Bilirubin (0.2-1.3) mg/dL AST (14-36) U/L ALT (9-52) U/L Alkaline Phosphatase (38-126) U/L Troponin I (0.00-0.120) ng/mL NT-Pro-B Natriuret Pep (0-900) pg/mL Total Protein (6.3-8.3) g/dL Albumin (3.5-5.0) g/dL Globulin (2.2-3.9) gm/dL Albumin/Globulin Ratio (1.0-2.1) Arterial Blood Potassium (3.6-5.2) mmol/L Laboratory Results - last 24 hr 12/11/17 12/11/17 12/11/17 16:40 17:37 17:51 WBC 8.5 RBC 3.16 L Hgb 9.0 L D Hct 27.9 L MCV 88.3 D MCH 28.4 MCHC 32.2 L RDW 14.7 H Plt Count 226 MPV 8.3 Neut % (Auto) 73.9 Lymph % (Auto) 14.8 L Reeves % (Auto) 9.2 Eos % (Auto) 1.4 Baso % (Auto) 0.7 Neut # (Auto) 6.3 Lymph # (Auto) 1.3 Reeves # (Auto) 0.8 Eos # (Auto) 0.1 Baso # (Auto) 0.1 Neutrophils % (Manual) Lymphocytes % (Manual) Monocytes % (Manual) Platelet Estimate Large Platelets Anisocytosis (manual) Target Cells Puncture Site B pCO2 83 H* pO2 82 HCO3 31.0 H ABG pH 7.27 L ABG Total CO2 40.6 H ABG O2 Saturation 96.8 ABG Base Excess 7.9 H ABG Hemoglobin ABG Carboxyhemoglobin POC ABG HHb (Measured) ABG Methemoglobin Donta Test Na ABG Potassium 4.2 A-a O2 Difference 71.0 Respiratory Index 0.9 Hgb O2 Saturation Sodium 127.0 L Chloride 91.0 L Glucose 133 H Lactate 0.6 L Liter Flow 4.0 Vent Mode Mechanical Rate FiO2 36.0 Inspiratory BiPAP Expiratory BiPAP Crit Value Called To Amy Crit Value Called By Ponce barrientos Crit Value Read Back Y Blood Gas Notified Time 1751 Potassium Carbon Dioxide Anion Gap BUN Creatinine Est GFR ( Amer) Est GFR (Non-Af Amer) POC Glucose (mg/dL) 152 H Random Glucose Hemoglobin A1c Calcium Phosphorus Magnesium Total Bilirubin AST ALT Alkaline Phosphatase Troponin I NT-Pro-B Natriuret Pep Total Protein Albumin Globulin Albumin/Globulin Ratio Arterial Blood Potassium 4.2 0412/11/17 12/11/17 20:24 20:25 22:33 WBC RBC Hgb Hct MCV MCH MCHC RDW Plt Count MPV Neut % (Auto) Lymph % (Auto) Reeves % (Auto) Eos % (Auto) Baso % (Auto) Neut # (Auto) Lymph # (Auto) Reeves # (Auto) Eos # (Auto) Baso # (Auto) Neutrophils % (Manual) Lymphocytes % (Manual) Monocytes % (Manual) Platelet Estimate Large Platelets Anisocytosis (manual) Target Cells Puncture Site Rradial Rra pCO2 79 H* 85 H* pO2 117 H 91 HCO3 31.0 H 29.1 H ABG pH 7.28 L 7.23 L ABG Total CO2 39.5 H 38.2 H ABG O2 Saturation 98.9 H 97.7 ABG Base Excess 7.8 H 5.4 H ABG Hemoglobin 12.0 12.1 ABG Carboxyhemoglobin 1.9 H 1.9 H POC ABG HHb (Measured) 1.1 2.2 ABG Methemoglobin 1.1 0.9 Donta Test Pos Na ABG Potassium A-a O2 Difference 34.0 52.0 Respiratory Index 0.3 0.6 Hgb O2 Saturation 95.9 95.0 Sodium 125 L Chloride 84 L Glucose Lactate Liter Flow Vent Mode Bipap Bipap Mechanical Rate 20 20 FiO2 35.0 35.0 Inspiratory BiPAP 25 20 Expiratory BiPAP 10 10 Crit Value Called To Dr.verano Chahal interior horticulturist Crit Value Called By nanette Irene Crit Value Read Back Y Y Blood Gas Notified Time 2030 2236 Potassium 4.2 Carbon Dioxide 31 H Anion Gap 14 BUN 16 Creatinine 0.8 Est GFR ( Amer) > 60 Est GFR (Non-Af Amer) > 60 POC Glucose (mg/dL) Random Glucose 126 H Hemoglobin A1c Calcium 8.7 Phosphorus Magnesium 1.9 Total Bilirubin 0.4 AST 14 D ALT < 6 L D Alkaline Phosphatase 53 Troponin I < 0.0120 NT-Pro-B Natriuret Pep 334 Total Protein 7.2 Albumin 3.6 Globulin 3.6 Albumin/Globulin Ratio 1.0 Arterial Blood Potassium 12/12/17 12/12/17 12/12/17 05:36 06:28 06:30 WBC 9.4 RBC 4.47 Hgb 12.6 D Hct 38.4 MCV 85.9 D MCH 28.2 MCHC 32.9 L RDW 15.0 H Plt Count 296 MPV 8.9 Neut % (Auto) 90.3 H Lymph % (Auto) 8.9 L Reeves % (Auto) 0.5 Eos % (Auto) 0.1 Baso % (Auto) 0.2 Neut # (Auto) 8.5 H Lymph # (Auto) 0.8 L Reeves # (Auto) 0.0 Eos # (Auto) 0.0 Baso # (Auto) 0.0 Neutrophils % (Manual) 91 H Lymphocytes % (Manual) 8 L Monocytes % (Manual) 1 Platelet Estimate Normal Large Platelets Present Anisocytosis (manual) Slight Target Cells Slight Puncture Site Rr pCO2 87 H* pO2 87 HCO3 29.3 H ABG pH 7.23 L ABG Total CO2 39.1 H ABG O2 Saturation 97.5 ABG Base Excess 5.7 H ABG Hemoglobin 13.3 ABG Carboxyhemoglobin 2.0 H POC ABG HHb (Measured) 2.4 ABG Methemoglobin 0.8 Donta Test Pos ABG Potassium A-a O2 Difference 54.0 Respiratory Index 0.6 Hgb O2 Saturation 94.9 L Sodium 134 Chloride 90 L Glucose Lactate Liter Flow Vent Mode Bipap Mechanical Rate FiO2 35.0 Inspiratory BiPAP 20 Expiratory BiPAP 10 Crit Value Called To Clarence granger rn Crit Value Called By Tereso tool supervisor Crit Value Read Back Y Blood Gas Notified Time 556 Potassium 4.4 Carbon Dioxide 34 H Anion Gap 15 BUN 14 Creatinine 0.6 L Est GFR ( Amer) > 60 Est GFR (Non-Af Amer) > 60 POC Glucose (mg/dL) Random Glucose 163 H Hemoglobin A1c Calcium 8.9 Phosphorus 5.5 H Magnesium 2.0 Total Bilirubin 0.3 AST 13 L ALT 7 L Alkaline Phosphatase 60 Troponin I NT-Pro-B Natriuret Pep Total Protein 7.6 Albumin 3.9 Globulin 3.7 Albumin/Globulin Ratio 1.0 Arterial Blood Potassium 12/12/17 12/12/17 09:46 11:32 WBC RBC Hgb Hct MCV MCH MCHC RDW Plt Count MPV Neut % (Auto) Lymph % (Auto) Reeves % (Auto) Eos % (Auto) Baso % (Auto) Neut # (Auto) Lymph # (Auto) Reeves # (Auto) Eos # (Auto) Baso # (Auto) Neutrophils % (Manual) Lymphocytes % (Manual) Monocytes % (Manual) Platelet Estimate Large Platelets Anisocytosis (manual) Target Cells Puncture Site pCO2 pO2 HCO3 ABG pH ABG Total CO2 ABG O2 Saturation ABG Base Excess ABG Hemoglobin ABG Carboxyhemoglobin POC ABG HHb (Measured) ABG Methemoglobin Donta Test ABG Potassium A-a O2 Difference Respiratory Index Hgb O2 Saturation Sodium Chloride Glucose Lactate Liter Flow Vent Mode Mechanical Rate FiO2 Inspiratory BiPAP Expiratory BiPAP Crit Value Called To Crit Value Called By Crit Value Read Back Blood Gas Notified Time Potassium Carbon Dioxide Anion Gap BUN Creatinine Est GFR ( Amer) Est GFR (Non-Af Amer) POC Glucose (mg/dL) 143 H Random Glucose Hemoglobin A1c 6.3 Calcium Phosphorus Magnesium Total Bilirubin AST ALT Alkaline Phosphatase Troponin I NT-Pro-B Natriuret Pep Total Protein Albumin Globulin Albumin/Globulin Ratio Arterial Blood Potassium EKG/Cardiology Studies: Cardiology / EKG Studies 12/11/17 16:37 ELECTROCARDIOGRAM Stat Comment: Mode Of Transportation: BED Reason For Exam: SOB 12/11/17 16:58 ELECTROCARDIOGRAM Stat Comment: Mode Of Transportation: BED Reason For Exam: SOB Fingerstick Blood Sugar Results: 143 Assessment/Plan - Assessment and Plan (Free Text) Assessment: This is a 72 year old female with PMHx COPD, FESTUS, HTN, Parkinsons Disease, Bipolar disorder, morbid obesity, obesity hypoventilation syndrome, anxiety, arthritis who presented with hypercarbic respiratory failure with AMS. Neuro Awake, but not alert or verbal Cardio Assessment: Hx of HTN Coreg 25 mg PO BID Clonidine 0.1 mg PO BID Pulm Assessment: Hypercarbic respiratory failure, Hx of COPD On BiPAP: titrate FiO2 to keep saturation between 90-92% Duoneb Q4H TIMOTEO Solumedrol 40 mg IV Q6 x 8 total doses GI Pepcid 20 mg PO BID NPO for now except meds Endocrine Assessment: DM Aspart ISS Q6H Levemir 14 units HS Infectious Diseases Azithromycin 500 mg IV daily x 5 doses Prophylaxis Lovenox 40 mg SC daily Pepcid 20 mg PO BID Discussed with Dr. Lynda Foster <Reina Foster - Last Filed: 12/12/17 16:23> CCU Objective - Vital Signs / Intake & Output Vital Signs (Last 4 hours): Vital Signs Temp Pulse Resp BP Pulse Ox 12/12/17 16:10 73 13 97 12/12/17 16:00 98.5 F 74 11 L 94 L 12/12/17 15:50 74 12 97 12/12/17 15:44 70 16 151/84 H 89 L 12/12/17 15:40 74 15 89 L 12/12/17 15:37 72 24 96 12/12/17 15:30 76 14 95 12/12/17 15:20 73 14 96 12/12/17 15:10 78 18 97 12/12/17 15:00 70 18 99 12/12/17 14:50 74 17 97 12/12/17 14:40 71 16 96 12/12/17 14:36 71 20 174/81 H 97 12/12/17 14:30 70 15 96 12/12/17 14:20 69 15 96 12/12/17 14:10 70 15 96 12/12/17 14:00 73 20 97 12/12/17 13:50 73 20 97 12/12/17 13:40 68 16 97 12/12/17 13:35 71 13 163/74 H 97 12/12/17 13:30 71 16 96 12/12/17 13:20 71 14 96 12/12/17 13:10 71 12 97 12/12/17 13:00 71 15 96 12/12/17 12:50 71 18 97 12/12/17 12:40 71 14 97 12/12/17 12:36 71 12 149/64 12/12/17 12:30 72 15 97 12/12/17 12:20 73 10 L 97 Intake and Output (Last 8hrs): Intake & Output 12/12/17 12/12/17 12/12/17 06:59 14:59 22:59 Intake Total 600 460 0 Output Total 220 450 200 Balance 380 10 -200 Weight 299 lb 13.259 oz Intake: Intake, IV Amount 600 400 0 left thumb 600 400 0 left thumb 0 Oral 60 0 Output: Urine 220 450 200 Urine, Voided 220 450 200 Other: # Voids Urine, Voided 1 - Medications Active Medications: Active Medications Generic Name Dose Route Start Last Admin Trade Name Freq PRN Reason Stop Dose Admin Albuterol/Ipratropium 3 ml 12/12/17 00:00 12/12/17 16:09 Duoneb 3 Mg/0.5 Mg (3 Ml) Ud INH 3 ml RQ4 TIMOTEO Administration Carvedilol 25 mg 12/12/17 10:00 12/12/17 10:21 Coreg PO 25 mg BID TIMOTEO Administration Clonidine HCl 0.1 mg 12/12/17 10:00 12/12/17 10:20 Catapres PO 0.1 mg BID TIMOTEO Administration Enoxaparin Sodium 40 mg 12/12/17 10:00 12/12/17 10:21 Lovenox SC 40 mg DAILY TIMOTEO Administration Famotidine 20 mg 12/12/17 10:00 12/12/17 10:21 Pepcid PO 20 mg BID TIMOTEO Administration Furosemide 40 mg 12/12/17 10:00 12/12/17 10:21 Lasix IVP 40 mg DAILY TIMOTEO Administration Azithromycin 500 mg/ Sodium 250 mls @ 250 mls/hr 12/12/17 10:00 12/12/17 10: 21 Chloride IVPB 12/17/17 10:01 250 mls/hr DAILY TIMOTEO Administration Protocol Insulin Aspart 0 unit 12/12/17 12:00 12/12/17 12:16 Novolog SC Not Given Q6 [facility] Protocol Insulin Detemir 14 unit 12/12/17 22:00 Levemir SC HS TIMOTEO Methylprednisolone 40 mg 12/12/17 00:00 12/12/17 12:19 Solu-Medrol IVP 12/13/17 18:01 40 mg Q6 TIMOTEO Administration Pneumococcal Polyvalent Vaccine 0.5 ml 12/13/17 10:00 Pneumovax 23 Vaccine IM 12/13/17 10:01 .ONCE ONE - Patient Studies Lab Studies: Lab Studies 12/12/17 12/12/17 12/12/17 Range/Units 11:32 09:46 06:30 WBC (4.8-10.8) K/uL RBC (3.80-5.20) Mil/uL Hgb (11.0-16.0) g/dL Hct (34.0-47.0) % MCV (81.0-99.0) fL MCH (27.0-31.0) pg MCHC (33.0-37.0) g/dL RDW (11.5-14.5) % Plt Count (130-400) K/uL MPV (7.2-11.7) fL Neut % (Auto) (50.0-75.0) % Lymph % (Auto) (20.0-40.0) % Reeves % (Auto) (0.0-10.0) % Eos % (Auto) (0.0-4.0) % Baso % (Auto) (0.0-2.0) % Neut # (Auto) (1.8-7.0) K/uL Lymph # (Auto) (1.0-4.3) K/uL Reeves # (Auto) (0.0-0.8) K/uL Eos # (Auto) (0.0-0.7) K/uL Baso # (Auto) (0.0-0.2) K/uL Neutrophils % (Manual) (50-75) % Lymphocytes % (Manual) (20-40) % Monocytes % (Manual) (0-10) % Platelet Estimate (NORMAL) Large Platelets Anisocytosis (manual) Target Cells Puncture Site pCO2 (35-45) mm/Hg pO2 (80-100) mm/Hg HCO3 (21-28) mmol/L ABG pH (7.35-7.45) ABG Total CO2 (22-28) mmol/L ABG O2 Saturation (95-98) % ABG Base Excess (-2.0-3.0) mmol/L ABG Hemoglobin (11.7-17.4) g/dL ABG Carboxyhemoglobin (0.5-1.5) % POC ABG HHb (Measured) (0.0-5.0) % ABG Methemoglobin (0.0-3.0) % [place] Test ABG Potassium (3.6-5.2) mmol/L A-a O2 Difference mm/Hg Respiratory Index Hgb O2 Saturation (95.0-98.0) % Sodium 134 (132-148) mmol/l Chloride 90 L (98-107) mmol/L Glucose (65-105) mg/dl Lactate (0.7-2.1) mmol/L Liter Flow Vent Mode Mechanical Rate FiO2 % Inspiratory BiPAP Expiratory BiPAP Crit Value Called To Crit Value Called By Crit Value Read Back Blood Gas Notified Time Potassium 4.4 (3.6-5.2) mmol/L Carbon Dioxide 34 H (22-30) mmol/L Anion Gap 15 (10-20) BUN 14 (7-17) mg/dL Creatinine 0.6 L (0.7-1.2) mg/dL Est GFR ( Amer) > 60 Est GFR (Non-Af Amer) > 60 POC Glucose (mg/dL) 143 H (65-110) mg/dL Random Glucose 163 H (65-105) mg/dL Hemoglobin A1c 6.3 (4.2-6.5) % Calcium 8.9 (8.6-10.4) mg/dl Phosphorus 5.5 H (2.5-4.5) mg/dL Magnesium 2.0 (1.6-2.3) mg/dL Total Bilirubin 0.3 (0.2-1.3) mg/dL AST 13 L (14-36) U/L ALT 7 L (9-52) U/L Alkaline Phosphatase 60 (38-126) U/L Troponin I (0.00-0.120) ng/mL NT-Pro-B Natriuret Pep (0-900) pg/mL Total Protein 7.6 (6.3-8.3) g/dL Albumin 3.9 (3.5-5.0) g/dL Globulin 3.7 (2.2-3.9) gm/dL Albumin/Globulin Ratio 1.0 (1.0-2.1) Arterial Blood Potassium (3.6-5.2) mmol/L 12/12/17 12/12/17 12/11/17 Range/Units 06:28 05:36 22:33 WBC 9.4 (4.8-10.8) K/uL RBC 4.47 (3.80-5.20) Mil/uL Hgb 12.6 D (11.0-16.0) g/dL Hct 38.4 (34.0-47.0) % MCV 85.9 D (81.0-99.0) fL MCH 28.2 (27.0-31.0) pg MCHC 32.9 L (33.0-37.0) g/dL RDW 15.0 H (11.5-14.5) % Plt Count 296 (130-400) K/uL MPV 8.9 (7.2-11.7) fL Neut % (Auto) 90.3 H (50.0-75.0) % Lymph % (Auto) 8.9 L (20.0-40.0) % Reeves % (Auto) 0.5 (0.0-10.0) % Eos % (Auto) 0.1 (0.0-4.0) % Baso % (Auto) 0.2 (0.0-2.0) % Neut # (Auto) 8.5 H (1.8-7.0) K/uL Lymph # (Auto) 0.8 L (1.0-4.3) K/uL Reeves # (Auto) 0.0 (0.0-0.8) K/uL Eos # (Auto) 0.0 (0.0-0.7) K/uL Baso # (Auto) 0.0 (0.0-0.2) K/uL Neutrophils % (Manual) 91 H (50-75) % Lymphocytes % (Manual) 8 L (20-40) % Monocytes % (Manual) 1 (0-10) % Platelet Estimate Normal (NORMAL) Large Platelets Present Anisocytosis (manual) Slight Target Cells Slight Puncture Site Rr Rra pCO2 87 H* 85 H* (35-45) mm/Hg pO2 87 91 (80-100) mm/Hg HCO3 29.3 H 29.1 H (21-28) mmol/L ABG pH 7.23 L 7.23 L (7.35-7.45) ABG Total CO2 39.1 H 38.2 H (22-28) mmol/L ABG O2 Saturation 97.5 97.7 (95-98) % ABG Base Excess 5.7 H 5.4 H (-2.0-3.0) mmol/L ABG Hemoglobin 13.3 12.1 (11.7-17.4) g/dL ABG Carboxyhemoglobin 2.0 H 1.9 H (0.5-1.5) % POC ABG HHb (Measured) 2.4 2.2 (0.0-5.0) % ABG Methemoglobin 0.8 0.9 (0.0-3.0) % [place] Test Pos Na ABG Potassium (3.6-5.2) mmol/L A-a O2 Difference 54.0 52.0 mm/Hg Respiratory Index 0.6 0.6 Hgb O2 Saturation 94.9 L 95.0 (95.0-98.0) % Sodium (132-148) mmol/l Chloride (98-107) mmol/L Glucose (65-105) mg/dl Lactate (0.7-2.1) mmol/L Liter Flow Vent Mode Bipap Bipap Mechanical Rate 20 FiO2 35.0 35.0 % Inspiratory BiPAP 20 20 Expiratory BiPAP 10 10 Crit Value Called To Clarence granger rn Fela interior horticulturist Crit Value Called By Tereso tool supervisor Lendl Crit Value Read Back Y Y Blood Gas Notified Time 556 8047 Potassium (3.6-5.2) mmol/L Carbon Dioxide (22-30) mmol/L Anion Gap (10-20) BUN (7-17) mg/dL Creatinine (0.7-1.2) mg/dL Est GFR ( Amer) Est GFR (Non-Af Amer) POC Glucose (mg/dL) (65-110) mg/dL Random Glucose (65-105) mg/dL Hemoglobin A1c (4.2-6.5) % Calcium (8.6-10.4) mg/dl Phosphorus (2.5-4.5) mg/dL Magnesium (1.6-2.3) mg/dL Total Bilirubin (0.2-1.3) mg/dL AST (14-36) U/L ALT (9-52) U/L Alkaline Phosphatase (38-126) U/L Troponin I (0.00-0.120) ng/mL NT-Pro-B Natriuret Pep (0-900) pg/mL Total Protein (6.3-8.3) g/dL Albumin (3.5-5.0) g/dL Globulin (2.2-3.9) gm/dL Albumin/Globulin Ratio (1.0-2.1) Arterial Blood Potassium (3.6-5.2) mmol/L 12/11/17 12/11/17 12/11/17 Range/Units 20:25 20:24 17:51 WBC (4.8-10.8) K/uL RBC (3.80-5.20) Mil/uL Hgb (11.0-16.0) g/dL Hct (34.0-47.0) % MCV (81.0-99.0) fL MCH (27.0-31.0) pg MCHC (33.0-37.0) g/dL RDW (11.5-14.5) % Plt Count (130-400) K/uL MPV (7.2-11.7) fL Neut % (Auto) (50.0-75.0) % Lymph % (Auto) (20.0-40.0) % Reeves % (Auto) (0.0-10.0) % Eos % (Auto) (0.0-4.0) % Baso % (Auto) (0.0-2.0) % Neut # (Auto) (1.8-7.0) K/uL Lymph # (Auto) (1.0-4.3) K/uL Reeves # (Auto) (0.0-0.8) K/uL Eos # (Auto) (0.0-0.7) K/uL Baso # (Auto) (0.0-0.2) K/uL Neutrophils % (Manual) (50-75) % Lymphocytes % (Manual) (20-40) % Monocytes % (Manual) (0-10) % Platelet Estimate (NORMAL) Large Platelets Anisocytosis (manual) Target Cells Puncture Site Rradial B pCO2 79 H* 83 H* (35-45) mm/Hg pO2 117 H 82 (80-100) mm/Hg HCO3 31.0 H 31.0 H (21-28) mmol/L ABG pH 7.28 L 7.27 L (7.35-7.45) ABG Total CO2 39.5 H 40.6 H (22-28) mmol/L ABG O2 Saturation 98.9 H 96.8 (95-98) % ABG Base Excess 7.8 H 7.9 H (-2.0-3.0) mmol/L ABG Hemoglobin 12.0 (11.7-17.4) g/dL ABG Carboxyhemoglobin 1.9 H (0.5-1.5) % POC ABG HHb (Measured) 1.1 (0.0-5.0) % ABG Methemoglobin 1.1 (0.0-3.0) % [place] Test Pos Na ABG Potassium 4.2 (3.6-5.2) mmol/L A-a O2 Difference 34.0 71.0 mm/Hg Respiratory Index 0.3 0.9 Hgb O2 Saturation 95.9 (95.0-98.0) % Sodium 125 L 127.0 L (132-148) mmol/l Chloride 84 L 91.0 L (98-107) mmol/L Glucose 133 H (65-105) mg/dl Lactate 0.6 L (0.7-2.1) mmol/L Liter Flow 4.0 Vent Mode Bipap Mechanical Rate 20 FiO2 35.0 36.0 % Inspiratory BiPAP 25 Expiratory BiPAP 10 Crit Value Called To Dr.verano Reyes Crit Value Called By nanette Irene Crit Value Read Back Y Y Blood Gas Notified Time 2030 1754 Potassium 4.2 (3.6-5.2) mmol/L Carbon Dioxide 31 H (22-30) mmol/L Anion Gap 14 (10-20) BUN 16 (7-17) mg/dL Creatinine 0.8 (0.7-1.2) mg/dL Est GFR ( Amer) > 60 Est GFR (Non-Af Amer) > 60 POC Glucose (mg/dL) (65-110) mg/dL Random Glucose 126 H (65-105) mg/dL Hemoglobin A1c (4.2-6.5) % Calcium 8.7 (8.6-10.4) mg/dl Phosphorus (2.5-4.5) mg/dL Magnesium 1.9 (1.6-2.3) mg/dL Total Bilirubin 0.4 (0.2-1.3) mg/dL AST 14 D (14-36) U/L ALT < 6 L D (9-52) U/L Alkaline Phosphatase 53 (38-126) U/L Troponin I < 0.0120 (0.00-0.120) ng/mL NT-Pro-B Natriuret Pep 334 (0-900) pg/mL Total Protein 7.2 (6.3-8.3) g/dL Albumin 3.6 (3.5-5.0) g/dL Globulin 3.6 (2.2-3.9) gm/dL Albumin/Globulin Ratio 1.0 (1.0-2.1) Arterial Blood Potassium 4.2 (3.6-5.2) mmol/L 12/11/17 12/11/17 Range/Units 17:37 16:40 WBC 8.5 (4.8-10.8) K/uL RBC 3.16 L (3.80-5.20) Mil/uL Hgb 9.0 L D (11.0-16.0) g/dL Hct 27.9 L (34.0-47.0) % MCV 88.3 D (81.0-99.0) fL MCH 28.4 (27.0-31.0) pg MCHC 32.2 L (33.0-37.0) g/dL RDW 14.7 H (11.5-14.5) % Plt Count 226 (130-400) K/uL MPV 8.3 (7.2-11.7) fL Neut % (Auto) 73.9 (50.0-75.0) % Lymph % (Auto) 14.8 L (20.0-40.0) % Reeves % (Auto) 9.2 (0.0-10.0) % Eos % (Auto) 1.4 (0.0-4.0) % Baso % (Auto) 0.7 (0.0-2.0) % Neut # (Auto) 6.3 (1.8-7.0) K/uL Lymph # (Auto) 1.3 (1.0-4.3) K/uL Reeves # (Auto) 0.8 (0.0-0.8) K/uL Eos # (Auto) 0.1 (0.0-0.7) K/uL Baso # (Auto) 0.1 (0.0-0.2) K/uL Neutrophils % (Manual) (50-75) % Lymphocytes % (Manual) (20-40) % Monocytes % (Manual) (0-10) % Platelet Estimate (NORMAL) Large Platelets Anisocytosis (manual) Target Cells Puncture Site pCO2 (35-45) mm/Hg pO2 (80-100) mm/Hg HCO3 (21-28) mmol/L ABG pH (7.35-7.45) ABG Total CO2 (22-28) mmol/L ABG O2 Saturation (95-98) % ABG Base Excess (-2.0-3.0) mmol/L ABG Hemoglobin (11.7-17.4) g/dL ABG Carboxyhemoglobin (0.5-1.5) % POC ABG HHb (Measured) (0.0-5.0) % ABG Methemoglobin (0.0-3.0) % [place] Test ABG Potassium (3.6-5.2) mmol/L A-a O2 Difference mm/Hg Respiratory Index Hgb O2 Saturation (95.0-98.0) % Sodium (132-148) mmol/l Chloride (98-107) mmol/L Glucose (65-105) mg/dl Lactate (0.7-2.1) mmol/L Liter Flow Vent Mode Mechanical Rate FiO2 % Inspiratory BiPAP Expiratory BiPAP Crit Value Called To Crit Value Called By Crit Value Read Back Blood Gas Notified Time Potassium (3.6-5.2) mmol/L Carbon Dioxide (22-30) mmol/L Anion Gap (10-20) BUN (7-17) mg/dL Creatinine (0.7-1.2) mg/dL Est GFR ( Amer) Est GFR (Non-Af Amer) POC Glucose (mg/dL) 152 H (65-110) mg/dL Random Glucose (65-105) mg/dL Hemoglobin A1c (4.2-6.5) % Calcium (8.6-10.4) mg/dl Phosphorus (2.5-4.5) mg/dL Magnesium (1.6-2.3) mg/dL Total Bilirubin (0.2-1.3) mg/dL AST (14-36) U/L ALT (9-52) U/L Alkaline Phosphatase (38-126) U/L Troponin I (0.00-0.120) ng/mL NT-Pro-B Natriuret Pep (0-900) pg/mL Total Protein (6.3-8.3) g/dL Albumin (3.5-5.0) g/dL Globulin (2.2-3.9) gm/dL Albumin/Globulin Ratio (1.0-2.1) Arterial Blood Potassium (3.6-5.2) mmol/L Laboratory Results - last 24 hr 12/11/17 12/11/1712/11/18 16:40 17:37 17:51 WBC 8.5 RBC 3.16 L Hgb 9.0 L D Hct 27.9 L MCV 88.3 D MCH 28.4 MCHC 32.2 L RDW 14.7 H Plt Count 226 MPV 8.3 Neut % (Auto) 73.9 Lymph % (Auto) 14.8 L Reeves % (Auto) 9.2 Eos % (Auto) 1.4 Baso % (Auto) 0.7 Neut # (Auto) 6.3 Lymph # (Auto) 1.3 Reeves # (Auto) 0.8 Eos # (Auto) 0.1 Baso # (Auto) 0.1 Neutrophils % (Manual) Lymphocytes % (Manual) Monocytes % (Manual) Platelet Estimate Large Platelets Anisocytosis (manual) Target Cells Puncture Site B pCO2 83 H* pO2 82 HCO3 31.0 H ABG pH 7.27 L ABG Total CO2 40.6 H ABG O2 Saturation 96.8 ABG Base Excess 7.9 H ABG Hemoglobin ABG Carboxyhemoglobin POC ABG HHb (Measured) ABG Methemoglobin Donta Test Na ABG Potassium 4.2 A-a O2 Difference 71.0 Respiratory Index 0.9 Hgb O2 Saturation Sodium 127.0 L Chloride 91.0 L Glucose 133 H Lactate 0.6 L Liter Flow 4.0 Vent Mode Mechanical Rate FiO2 36.0 Inspiratory BiPAP Expiratory BiPAP Crit Value Called To Amy Crit Value Called By Ponce barrientos Crit Value Read Back Y Blood Gas Notified Time 1755 Potassium Carbon Dioxide Anion Gap BUN Creatinine Est GFR ( Amer) Est GFR (Non-Af Amer) POC Glucose (mg/dL) 152 H Random Glucose Hemoglobin A1c Calcium Phosphorus Magnesium Total Bilirubin AST ALT Alkaline Phosphatase Troponin I NT-Pro-B Natriuret Pep Total Protein Albumin Globulin Albumin/Globulin Ratio Arterial Blood Potassium 4.2 12/11/17 12/11/17 12/11/17 20:24 20:25 22:33 WBC RBC Hgb Hct MCV MCH MCHC RDW Plt Count MPV Neut % (Auto) Lymph % (Auto) Reeves % (Auto) Eos % (Auto) Baso % (Auto) Neut # (Auto) Lymph # (Auto) Reeves # (Auto) Eos # (Auto) Baso # (Auto) Neutrophils % (Manual) Lymphocytes % (Manual) Monocytes % (Manual) Platelet Estimate Large Platelets Anisocytosis (manual) Target Cells Puncture Site Rradial Rra pCO2 79 H* 85 H* pO2 117 H 91 HCO3 31.0 H 29.1 H ABG pH 7.28 L 7.23 L ABG Total CO2 39.5 H 38.2 H ABG O2 Saturation 98.9 H 97.7 ABG Base Excess 7.8 H 5.4 H ABG Hemoglobin 12.0 12.1 ABG Carboxyhemoglobin 1.9 H 1.9 H POC ABG HHb (Measured) 1.1 2.2 ABG Methemoglobin 1.1 0.9 D[place] Test Pos Na ABG Potassium A-a O2 Difference 34.0 52.0 Respiratory Index 0.3 0.6 Hgb O2 Saturation 95.9 95.0 Sodium 125 L Chloride 84 L Glucose Lactate Liter Flow Vent Mode Bipap Bipap Mechanical Rate 20 20 FiO2 35.0 35.0 Inspiratory BiPAP 25 20 Expiratory BiPAP 10 10 Crit Value Called To Dr.verano Chahal interior horticulturist Crit Value Called By nanette Irene Crit Value Read Back Y Y Blood Gas Notified Time 2030 2237 Potassium 4.2 Carbon Dioxide 31 H Anion Gap 14 BUN 16 Creatinine 0.8 Est GFR ( Amer) > 60 Est GFR (Non-Af Amer) > 60 POC Glucose (mg/dL) Random Glucose 126 H Hemoglobin A1c Calcium 8.7 Phosphorus Magnesium 1.9 Total Bilirubin 0.4 AST 14 D ALT < 6 L D Alkaline Phosphatase 53 Troponin I < 0.0120 NT-Pro-B Natriuret Pep 334 Total Protein 7.2 Albumin 3.6 Globulin 3.6 Albumin/Globulin Ratio 1.0 Arterial Blood Potassium 12/12/17 12/12/17 12/12/17 05:36 06:28 06:30 WBC 9.4 RBC 4.47 Hgb 12.6 D Hct 38.4 MCV 85.9 D MCH 28.2 MCHC 32.9 L RDW 15.0 H Plt Count 296 MPV 8.9 Neut % (Auto) 90.3 H Lymph % (Auto) 8.9 L Reeves % (Auto) 0.5 Eos % (Auto) 0.1 Baso % (Auto) 0.2 Neut # (Auto) 8.5 H Lymph # (Auto) 0.8 L Reeves # (Auto) 0.0 Eos # (Auto) 0.0 Baso # (Auto) 0.0 Neutrophils % (Manual) 91 H Lymphocytes % (Manual) 8 L Monocytes % (Manual) 1 Platelet Estimate Normal Large Platelets Present Anisocytosis (manual) Slight Target Cells Slight Puncture Site Rr pCO2 87 H* pO2 87 HCO3 29.3 H ABG pH 7.23 L ABG Total CO2 39.1 H ABG O2 Saturation 97.5 ABG Base Excess 5.7 H ABG Hemoglobin 13.3 ABG Carboxyhemoglobin 2.0 H POC ABG HHb (Measured) 2.4 ABG Methemoglobin 0.8 [place] Test Pos ABG Potassium A-a O2 Difference 54.0 Respiratory Index 0.6 Hgb O2 Saturation 94.9 L Sodium 134 Chloride 90 L Glucose Lactate Liter Flow Vent Mode Bipap Mechanical Rate FiO2 35.0 Inspiratory BiPAP 20 Expiratory BiPAP 10 Crit Value Called To Clarence granger rn Crit Value Called By Tereso tool supervisor Crit Value Read Back Y Blood Gas Notified Time 556 Potassium 4.4 Carbon Dioxide 34 H Anion Gap 15 BUN 14 Creatinine 0.6 L Est GFR ( Amer) > 60 Est GFR (Non-Af Amer) > 60 POC Glucose (mg/dL) Random Glucose 163 H Hemoglobin A1c Calcium 8.9 Phosphorus 5.5 H Magnesium 2.0 Total Bilirubin 0.3 AST 13 L ALT 7 L Alkaline Phosphatase 60 Troponin I NT-Pro-B Natriuret Pep Total Protein 7.6 Albumin 3.9 Globulin 3.7 Albumin/Globulin Ratio 1.0 Arterial Blood Potassium 12/12/17 12/12/17 09:46 11:32 WBC RBC Hgb Hct MCV MCH MCHC RDW Plt Count MPV Neut % (Auto) Lymph % (Auto) Reeves % (Auto) Eos % (Auto) Baso % (Auto) Neut # (Auto) Lymph # (Auto) Reeves # (Auto) Eos # (Auto) Baso # (Auto) Neutrophils % (Manual) Lymphocytes % (Manual) Monocytes % (Manual) Platelet Estimate Large Platelets Anisocytosis (manual) Target Cells Puncture Site pCO2 pO2 HCO3 ABG pH ABG Total CO2 ABG O2 Saturation ABG Base Excess ABG Hemoglobin ABG Carboxyhemoglobin POC ABG HHb (Measured) ABG Methemoglobin Donta Test ABG Potassium A-a O2 Difference Respiratory Index Hgb O2 Saturation Sodium Chloride Glucose Lactate Liter Flow Vent Mode Mechanical Rate FiO2 Inspiratory BiPAP Expiratory BiPAP Crit Value Called To Crit Value Called By Crit Value Read Back Blood Gas Notified Time Potassium Carbon Dioxide Anion Gap BUN Creatinine Est GFR ( Amer) Est GFR (Non-Af Amer) POC Glucose (mg/dL) 143 H Random Glucose Hemoglobin A1c 6.3 Calcium Phosphorus Magnesium Total Bilirubin AST ALT Alkaline Phosphatase Troponin I NT-Pro-B Natriuret Pep Total Protein Albumin Globulin Albumin/Globulin Ratio Arterial Blood Potassium EKG/Cardiology Studies: Cardiology / EKG Studies 12/11/17 16:37 ELECTROCARDIOGRAM Stat Comment: Mode Of Transportation: BED Reason For Exam: SOB 12/11/17 16:58 ELECTROCARDIOGRAM Stat Comment: Mode Of Transportation: BED Reason For Exam: SOB Critical Care Progress Note - Nutrition Nutrition: Nutrition Category Date Time Status NPO Diet [DIET] Diets 12/12/17 Breakfast Active Assessment/Plan - Assessment and Plan (Free Text) Plan: Above resident note reviewed and verified. Patient with high BMI with h/o obstructive lung disease and obesity hypoventilation was taking multiple opiods (not detected in urine). Hyper-capneic respiratory failure Patient will benefit from bi-pap -continue bronchodilators -HTN: continue home medications -CXR reveals congestion: lasix, hold IVF -repeat ABG -Dulcolax [place] for constipation (enterohepatic circulation) -PT/OT - Date & Time Date: 12/12/17 Time: 16:23
[2017-12-12 17:11] LABS: ARTERIAL BLOOD GAS HCO3 32.4 mmol/L (21-28); ARTERIAL BLOOD GAS O2 SAT 98.8 % (95-98); ARTERIAL BLOOD GAS PCO2 73 mm/Hg (35-45); ARTERIAL BLOOD GAS PH 7.33 (7.35-7.45); ARTERIAL BLOOD GAS PO2 110 mm/Hg (80-100); ARTERIAL BLOOD GAS TCO2 40.7 mmol/L (22-28)
[2017-12-12] MEDS ORDERED: Insulin Detemir 100 units/ml Vial (Levemir) SC SCH ×2 (22:00)
[2017-12-13] MEDS: Albuterol-Ipratrop 3 mg / 0.5 (3 ml) UD INH SCH ×6 (00:10→19:32)
[2017-12-13] MEDS: MethylPREDNISolone 40 mg Vial IVP SCH ×2 (05:32)
[2017-12-13] MEDS: (Novolog) Insulin Aspart, Recombinant 100 u/ml 10 ml vial SC SCH ×5 (05:49→21:39)
[2017-12-13 06:01] LABS: ARTERIAL BLOOD GAS HCO3 32.9 mmol/L (21-28); ARTERIAL BLOOD GAS HEMOGLOBIN 12.3 g/dL (11.7-17.4); ARTERIAL BLOOD GAS O2 SAT 96.7 % (95-98); ARTERIAL BLOOD GAS PCO2 72 mm/Hg (35-45); ARTERIAL BLOOD GAS PH 7.34 (7.35-7.45); ARTERIAL BLOOD GAS PO2 72 mm/Hg (80-100)
[2017-12-13 06:34] LABS: ALB/GLOB RATIO 1.1 (1.0-2.1); ALBUMIN 3.7 g/dL (3.5-5.0); ALT/SGPT 8 U/L (9-52); AST/SGOT 14 U/L (14-36); BLOOD UREA NITROGEN 24 mg/dL (7-17); CALCIUM 8.7 mg/dl (8.6-10.4); GFR AFRICAN-AMERICAN > 60; GFR NON-AFRICAN AMERICAN > 60
[2017-12-13] MEDS: Enoxaparin 40 mg Syringe SC SCH (09:57)
[2017-12-13] MEDS ORDERED: Pneumococcal 23-Valent Vaccine IM ONE (10:00)
--- NOTE | 2017-12-13 12:44 | CP.CCUPN ---
<Jasen Chaudhary - Last Filed: 12/13/17 12:37> CCU Subjective - Physician Review Subjective (Free Text): 12/12/17 14:28 Patient seen and examined. Patient is arousable to noxious stimuli as well as loud verbal stimuli. When asked how she was doing, the patient nodded her head. Could not ascertain ROS at this time. 12/13/17 12:37 Patient seen and examined. Patient is off of the BiPAP this morning and sitting in a chair. Patient requesting to speak with her PMD. CCU Objective - Vital Signs / Intake & Output Vital Signs (Last 4 hours): Vital Signs Pulse Resp BP Pulse Ox 12/13/17 11:00 80 14 12/13/17 10:50 74 11 L 85 L 12/13/17 10:46 124/100 H 12/13/17 10:30 78 15 93 L 12/13/17 10:00 77 13 88 L 12/13/17 09:57 141/68 12/13/17 09:56 141/68 12/13/17 09:50 75 16 89 L 12/13/17 09:40 74 11 L 91 L 12/13/17 09:30 72 11 L 86 L 12/13/17 09:24 70 13 141/68 12/13/17 09:20 69 18 87 L 12/13/17 09:10 71 11 L 92 L 12/13/17 09:00 68 10 L 97 12/13/17 08:53 73 14 90 L Intake and Output (Last 8hrs): Intake & Output 12/12/17 12/13/17 12/13/17 22:59 06:59 14:59 Intake Total 50 0 720 Output Total 1300 50 Balance -1250 -50 720 Weight 295 lb 6.711 oz Intake: Intake, IV Amount 0 0 left thumb 0 left thumb 0 0 Oral 50 0 720 Output: Urine 1300 50 Urine, Voided 1300 50 Other: # Voids Urine, Voided 1 # Bowel Movements 1 - Physical Exam Head: Positive for: Atraumatic, Normocephalic Pupils: Positive for: PERRL Extroacular Muscles: Positive for: EOMI Mouth: Positive for: Moist Mucous Membranes Respiratory/Chest: Positive for: Decreased Breath Sounds Cardiovascular: Positive for: Regular Rate and Rhythm, Normal S1, S2 Abdomen: Positive for: Normal Bowel Sounds. Negative for: Tenderness Upper Extremity: Negative for: Edema Lower Extremity: Positive for: Edema Skin: Positive for: Warm, Dry - Medications Active Medications: Active Medications Generic Name Dose Route Start Last Admin Trade Name Freq PRN Reason Stop Dose Admin Albuterol/Ipratropium 3 ml 12/12/17 00:00 12/13/17 11:13 Duoneb 3 Mg/0.5 Mg (3 Ml) Ud INH 3 ml RQ4 TIMOTEO Administration Bisacodyl 10 mg 12/12/17 16:30 12/12/17 16:43 Dulcolax [place] 10 mg DAILY TIMOTEO Administration Carvedilol 25 mg 12/12/17 10:00 12/13/17 09:56 Coreg PO 25 mg BID TIMOTEO Administration Clonidine HCl 0.1 mg 12/12/17 10:00 12/13/17 09:56 Catapres PO 0.1 mg BID TIMOTEO Administration Enoxaparin Sodium 40 mg 12/12/17 10:00 12/13/17 09:57 Lovenox SC 40 mg DAILY TIMOTEO Administration Famotidine 20 mg 12/12/17 10:00 12/13/17 09:57 Pepcid PO 20 mg BID TIMOTEO Administration Furosemide 40 mg 12/13/17 10:00 12/13/17 09:57 Lasix PO 40 mg DAILY TIMOTEO Administration Azithromycin 500 mg/ Sodium 250 mls @ 250 mls/hr 12/12/17 10:00 12/12/17 10: 21 Chloride IVPB 12/17/17 10:01 250 mls/hr DAILY TIMOTEO Administration Protocol Insulin Aspart 0 unit 12/13/17 11:30 Novolog SC ACHS [facility] Protocol Insulin Detemir 14 unit 12/13/17 22:00 Levemir SC HS [facility] - Patient Studies Lab Studies: Microbiology Studies 12/11/17 21:33 MRSA Culture (Admit) - Final Nose MRSA NOT DETECTED Lab Studies 12/13/17 12/13/17 12/13/17 Range/Units 12:00 06:12 05:53 Puncture Site Rra pCO2 72 H* (35-45) mm/Hg pO2 72 L (80-100) mm/Hg HCO3 32.9 H (21-28) mmol/L ABG pH 7.34 L (7.35-7.45) ABG Total CO2 41.0 H (22-28) mmol/L ABG O2 Saturation 96.7 (95-98) % ABG Base Excess 10.3 H (-2.0-3.0) mmol/L ABG Hemoglobin 12.3 (11.7-17.4) g/dL ABG Carboxyhemoglobin 2.0 H (0.5-1.5) % POC ABG HHb (Measured) 3.2 (0.0-5.0) % ABG Methemoglobin 0.7 (0.0-3.0) % Donta Test Na ABG Potassium (3.6-5.2) mmol/L A-a O2 Difference 16.0 mm/Hg Respiratory Index 0.2 Hgb O2 Saturation 94.1 L (95.0-98.0) % Sodium 137 (132-148) mmol/l Chloride 93 L (98-107) mmol/L Glucose (65-105) mg/dl Lactate (0.7-2.1) mmol/L Vent Mode Bipap FiO2 25.0 % Inspiratory BiPAP 25 Expiratory BiPAP 12 Crit Value Called To [place] [employer] extension educator Crit Value Called By Rowena Crit Value Read Back Y Blood Gas Notified Time 601 Potassium 4.6 (3.6-5.2) mmol/L Carbon Dioxide 35 H (22-30) mmol/L Anion Gap 14 (10-20) BUN 24 H (7-17) mg/dL Creatinine 0.7 (0.7-1.2) mg/dL Est GFR ( Amer) > 60 Est GFR (Non-Af Amer) > 60 POC Glucose (mg/dL) 197 H (65-110) mg/dL Random Glucose 134 H (65-105) mg/dL Calcium 8.7 (8.6-10.4) mg/dl Phosphorus 4.1 (2.5-4.5) mg/dL Magnesium 2.2 (1.6-2.3) mg/dL Total Bilirubin 0.5 (0.2-1.3) mg/dL AST 14 (14-36) U/L ALT 8 L (9-52) U/L Alkaline Phosphatase 49 (38-126) U/L Total Protein 7.2 (6.3-8.3) g/dL Albumin 3.7 (3.5-5.0) g/dL Globulin 3.5 (2.2-3.9) gm/dL Albumin/Globulin Ratio 1.1 (1.0-2.1) Arterial Blood Potassium (3.6-5.2) mmol/L 12/13/17 12/12/17 12/12/17 Range/Units 05:47 23:19 17:56 Puncture Site pCO2 (35-45) mm/Hg pO2 (80-100) mm/Hg HCO3 (21-28) mmol/L ABG pH (7.35-7.45) ABG Total CO2 (22-28) mmol/L ABG O2 Saturation (95-98) % ABG Base Excess (-2.0-3.0) mmol/L ABG Hemoglobin (11.7-17.4) g/dL ABG Carboxyhemoglobin (0.5-1.5) % POC ABG HHb (Measured) (0.0-5.0) % ABG Methemoglobin (0.0-3.0) % Donta Test ABG Potassium (3.6-5.2) mmol/L A-a O2 Difference mm/Hg Respiratory Index Hgb O2 Saturation (95.0-98.0) % Sodium (132-148) mmol/l Chloride (98-107) mmol/L Glucose (65-105) mg/dl Lactate (0.7-2.1) mmol/L Vent Mode FiO2 % Inspiratory BiPAP Expiratory BiPAP Crit Value Called To Crit Value Called By Crit Value Read Back Blood Gas Notified Time Potassium (3.6-5.2) mmol/L Carbon Dioxide (22-30) mmol/L Anion Gap (10-20) BUN (7-17) mg/dL Creatinine (0.7-1.2) mg/dL Est GFR ( Amer) Est GFR (Non-Af Amer) POC Glucose (mg/dL) 134 H 136 H 135 H (65-110) mg/dL Random Glucose (65-105) mg/dL Calcium (8.6-10.4) mg/dl Phosphorus (2.5-4.5) mg/dL Magnesium (1.6-2.3) mg/dL Total Bilirubin (0.2-1.3) mg/dL AST (14-36) U/L ALT (9-52) U/L Alkaline Phosphatase (38-126) U/L Total Protein (6.3-8.3) g/dL Albumin (3.5-5.0) g/dL Globulin (2.2-3.9) gm/dL Albumin/Globulin Ratio (1.0-2.1) Arterial Blood Potassium (3.6-5.2) mmol/L 12/12/17 Range/Units 17:07 Puncture Site Rra pCO2 73 H* (35-45) mm/Hg pO2 110 H (80-100) mm/Hg HCO3 32.4 H (21-28) mmol/L ABG pH 7.33 L (7.35-7.45) ABG Total CO2 40.7 H (22-28) mmol/L ABG O2 Saturation 98.8 H (95-98) % ABG Base Excess 9.6 H (-2.0-3.0) mmol/L ABG Hemoglobin (11.7-17.4) g/dL ABG Carboxyhemoglobin (0.5-1.5) % POC ABG HHb (Measured) (0.0-5.0) % ABG Methemoglobin (0.0-3.0) % Donta Test Na ABG Potassium 3.9 (3.6-5.2) mmol/L A-a O2 Difference -23.0 mm/Hg Respiratory Index -0.2 Hgb O2 Saturation (95.0-98.0) % Sodium 135.0 (132-148) mmol/l Chloride 97.0 L (98-107) mmol/L Glucose 130 H (65-105) mg/dl Lactate 0.7 (0.7-2.1) mmol/L Vent Mode Aprv FiO2 25.0 % Inspiratory BiPAP 25 Expiratory BiPAP 12 Crit Value Called To [place] [employer] extension educator Crit Value Called By Lendl Crit Value Read Back Y Blood Gas Notified Time 1710 Potassium (3.6-5.2) mmol/L Carbon Dioxide (22-30) mmol/L Anion Gap (10-20) BUN (7-17) mg/dL Creatinine (0.7-1.2) mg/dL Est GFR ( Amer) Est GFR (Non-Af Amer) POC Glucose (mg/dL) (65-110) mg/dL Random Glucose (65-105) mg/dL Calcium (8.6-10.4) mg/dl Phosphorus (2.5-4.5) mg/dL Magnesium (1.6-2.3) mg/dL Total Bilirubin (0.2-1.3) mg/dL AST (14-36) U/L ALT (9-52) U/L Alkaline Phosphatase (38-126) U/L Total Protein (6.3-8.3) g/dL Albumin (3.5-5.0) g/dL Globulin (2.2-3.9) gm/dL Albumin/Globulin Ratio (1.0-2.1) Arterial Blood Potassium 3.9 (3.6-5.2) mmol/L Laboratory Results - last 24 hr 12/12/17 12/12/17 12/12/17 17:07 17:56 23:19 Puncture Site Rra pCO2 73 H* pO2 110 H HCO3 32.4 H ABG pH 7.33 L ABG Total CO2 40.7 H ABG O2 Saturation 98.8 H ABG Base Excess 9.6 H ABG Hemoglobin ABG Carboxyhemoglobin POC ABG HHb (Measured) ABG Methemoglobin Donta Test Na ABG Potassium 3.9 A-a O2 Difference -23.0 Respiratory Index -0.2 Hgb O2 Saturation Sodium 135.0 Chloride 97.0 L Glucose 130 H Lactate 0.7 Vent Mode Aprv FiO2 25.0 Inspiratory BiPAP 25 Expiratory BiPAP 12 Crit Value Called To [place] [employer] extension educator Crit Value Called By Rowena Crit Value Read Back Y Blood Gas Notified Time 1710 Potassium Carbon Dioxide Anion Gap BUN Creatinine Est GFR ( Amer) Est GFR (Non-Af Amer) POC Glucose (mg/dL) 135 H 136 H Random Glucose Calcium Phosphorus Magnesium Total Bilirubin AST ALT Alkaline Phosphatase Total Protein Albumin Globulin Albumin/Globulin Ratio Arterial Blood Potassium 3.9 12/13/17 12/13/17 12/13/17 05:47 05:53 06:12 Puncture Site Rra pCO2 72 H* pO2 72 L HCO3 32.9 H ABG pH 7.34 L ABG Total CO2 41.0 H ABG O2 Saturation 96.7 ABG Base Excess 10.3 H ABG Hemoglobin 12.3 ABG Carboxyhemoglobin 2.0 H POC ABG HHb (Measured) 3.2 ABG Methemoglobin 0.7 Donta Test Na ABG Potassium A-a O2 Difference 16.0 Respiratory Index 0.2 Hgb O2 Saturation 94.1 L Sodium 137 Chloride 93 L Glucose Lactate Vent Mode Bipap FiO2 25.0 Inspiratory BiPAP 25 Expiratory BiPAP 12 Crit Value Called To [place] agricultural extension educator Crit Value Called By Rowena Crit Value Read Back Y Blood Gas Notified Time 601 Potassium 4.6 Carbon Dioxide 35 H Anion Gap 14 BUN 24 H Creatinine 0.7 Est GFR ( Amer) > 60 Est GFR (Non-Af Amer) > 60 POC Glucose (mg/dL) 134 H Random Glucose 134 H Calcium 8.7 Phosphorus 4.1 Magnesium 2.2 Total Bilirubin 0.5 AST 14 ALT 8 L Alkaline Phosphatase 49 Total Protein 7.2 Albumin 3.7 Globulin 3.5 Albumin/Globulin Ratio 1.1 Arterial Blood Potassium 12/13/17 12:00 Puncture Site pCO2 pO2 HCO3 ABG pH ABG Total CO2 ABG O2 Saturation ABG Base Excess ABG Hemoglobin ABG Carboxyhemoglobin POC ABG HHb (Measured) ABG Methemoglobin Donta Test ABG Potassium A-a O2 Difference Respiratory Index Hgb O2 Saturation Sodium Chloride Glucose Lactate Vent Mode FiO2 Inspiratory BiPAP Expiratory BiPAP Crit Value Called To Crit Value Called By Crit Value Read Back Blood Gas Notified Time Potassium Carbon Dioxide Anion Gap BUN Creatinine Est GFR ( Amer) Est GFR (Non-Af Amer) POC Glucose (mg/dL) 197 H Random Glucose Calcium Phosphorus Magnesium Total Bilirubin AST ALT Alkaline Phosphatase Total Protein Albumin Globulin Albumin/Globulin Ratio Arterial Blood Potassium Fingerstick Blood Sugar Results: 134 Critical Care Progress Note - Nutrition Nutrition: Nutrition Category Date Time Status Diabetic [Consistent Carbohydrate] [DIET] Diets 12/13/17 Breakfast Active Assessment/Plan - Assessment and Plan (Free Text) Assessment: This is a 72 year old female with PMHx COPD, FESTUS, HTN, Parkinsons Disease, Bipolar disorder, morbid obesity, obesity hypoventilation syndrome, anxiety, arthritis who presented with hypercarbic respiratory failure with AMS. After CO2 retention has decreased, the patient is now conversing with us and out of bed to chair. Neuro Awake, alert, verbal Cardio Assessment: Hx of HTN Coreg 25 mg PO BID Clonidine 0.1 mg PO BID Lasix 40 mg PO daily Pulm Assessment: Hypercarbic respiratory failure, Hx of COPD On BiPAP: titrate FiO2 to keep saturation between 90-92% Duoneb Q4H TIMOTEO GI Carbohydrate consistent diet Pepcid 20 mg PO BID Endocrine Assessment: DM Aspart ISS ACHS Levemir 14 units HS Infectious Diseases Azithromycin 500 mg IV daily x 5 doses Prophylaxis Lovenox 40 mg SC daily Pepcid 20 mg PO BID Discussed with Dr. Lynda Foster <CristianReina - Last Filed: 12/13/17 13:48> CCU Objective - Vital Signs / Intake & Output Vital Signs (Last 4 hours): Vital Signs Pulse Resp BP Pulse Ox 12/13/17 11:00 80 14 12/13/17 10:50 74 11 L 85 L 12/13/17 10:46 124/100 H 12/13/17 10:30 78 15 93 L 12/13/17 10:00 77 13 88 L 12/13/17 09:57 141/68 12/13/17 09:56 141/68 12/13/17 09:50 75 16 89 L Intake and Output (Last 8hrs): Intake & Output 12/12/17 12/13/17 12/13/17 22:59 06:59 14:59 Intake Total 50 0 720 Output Total 1300 50 Balance -1250 -50 720 Weight 295 lb 6.711 oz Intake: Intake, IV Amount 0 0 left thumb 0 left thumb 0 0 Oral 50 0 720 Output: Urine 1300 50 Urine, Voided 1300 50 Other: # Voids Urine, Voided 1 # Bowel Movements 1 - Medications Active Medications: Active Medications Generic Name Dose Route Start Last Admin Trade Name Freq PRN Reason Stop Dose Admin Albuterol/Ipratropium 3 ml 12/12/17 00:00 12/13/17 11:13 Duoneb 3 Mg/0.5 Mg (3 Ml) Ud INH 3 ml RQ4 TIMOTEO Administration Bisacodyl 10 mg 12/12/17 16:30 12/13/17 13:12 Dulcolax AK Not Given DAILY TIMOTEO Carvedilol 25 mg 12/12/17 10:00 12/13/17 09:56 Coreg PO 25 mg BID TIMOTEO Administration Clonidine HCl 0.1 mg 12/12/17 10:00 12/13/17 09:56 Catapres PO 0.1 mg BID TIMOTEO Administration Enoxaparin Sodium 40 mg 12/12/17 10:00 12/13/17 09:57 Lovenox SC 40 mg DAILY TIMOTEO Administration Famotidine 20 mg 12/12/17 10:00 12/13/17 09:57 Pepcid PO 20 mg BID TIMOTEO Administration Furosemide 40 mg 12/13/17 10:00 12/13/17 09:57 Lasix PO 40 mg DAILY TIMOTEO Administration Azithromycin 500 mg/ Sodium 250 mls @ 250 mls/hr 12/12/17 10:00 12/13/17 13: 13 Chloride IVPB 12/17/17 10:01 250 mls/hr DAILY TIMOTEO Administration Protocol Insulin Aspart 0 unit 12/13/17 11:30 12/13/17 13:13 Novolog SC 2 unit ACHS [facility] Administration Protocol Insulin Detemir 14 unit 12/13/17 22:00 Levemir SC HS [facility] - Patient Studies Lab Studies: Microbiology Studies 12/11/17 21:33 MRSA Culture (Admit) - Final Nose MRSA NOT DETECTED Lab Studies 12/13/17 12/13/17 12/13/17 Range/Units 12:00 06:12 05:53 Puncture Site Rra pCO2 72 H* (35-45) mm/Hg pO2 72 L (80-100) mm/Hg HCO3 32.9 H (21-28) mmol/L ABG pH 7.34 L (7.35-7.45) ABG Total CO2 41.0 H (22-28) mmol/L ABG O2 Saturation 96.7 (95-98) % ABG Base Excess 10.3 H (-2.0-3.0) mmol/L ABG Hemoglobin 12.3 (11.7-17.4) g/dL ABG Carboxyhemoglobin 2.0 H (0.5-1.5) % POC ABG HHb (Measured) 3.2 (0.0-5.0) % ABG Methemoglobin 0.7 (0.0-3.0) % Donta Test Na ABG Potassium (3.6-5.2) mmol/L A-a O2 Difference 16.0 mm/Hg Respiratory Index 0.2 Hgb O2 Saturation 94.1 L (95.0-98.0) % Sodium 137 (132-148) mmol/l Chloride 93 L (98-107) mmol/L Glucose (65-105) mg/dl Lactate (0.7-2.1) mmol/L Vent Mode Bipap FiO2 25.0 % Inspiratory BiPAP 25 Expiratory BiPAP 12 Crit Value Called To [place] agricultural extension educator Crit Value Called By Rowena Crit Value Read Back Y Blood Gas Notified Time 601 Potassium 4.6 (3.6-5.2) mmol/L Carbon Dioxide 35 H (22-30) mmol/L Anion Gap 14 (10-20) BUN 24 H (7-17) mg/dL Creatinine 0.7 (0.7-1.2) mg/dL Est GFR ( Amer) > 60 Est GFR (Non-Af Amer) > 60 POC Glucose (mg/dL) 197 H (65-110) mg/dL Random Glucose 134 H (65-105) mg/dL Calcium 8.7 (8.6-10.4) mg/dl Phosphorus 4.1 (2.5-4.5) mg/dL Magnesium 2.2 (1.6-2.3) mg/dL Total Bilirubin 0.5 (0.2-1.3) mg/dL AST 14 (14-36) U/L ALT 8 L (9-52) U/L Alkaline Phosphatase 49 (38-126) U/L Total Protein 7.2 (6.3-8.3) g/dL Albumin 3.7 (3.5-5.0) g/dL Globulin 3.5 (2.2-3.9) gm/dL Albumin/Globulin Ratio 1.1 (1.0-2.1) Arterial Blood Potassium (3.6-5.2) mmol/L 12/13/17 12/12/17 12/12/17 Range/Units 05:47 23:19 17:56 Puncture Site pCO2 (35-45) mm/Hg pO2 (80-100) mm/Hg HCO3 (21-28) mmol/L ABG pH (7.35-7.45) ABG Total CO2 (22-28) mmol/L ABG O2 Saturation (95-98) % ABG Base Excess (-2.0-3.0) mmol/L ABG Hemoglobin (11.7-17.4) g/dL ABG Carboxyhemoglobin (0.5-1.5) % POC ABG HHb (Measured) (0.0-5.0) % ABG Methemoglobin (0.0-3.0) % Donta Test ABG Potassium (3.6-5.2) mmol/L A-a O2 Difference mm/Hg Respiratory Index Hgb O2 Saturation (95.0-98.0) % Sodium (132-148) mmol/l Chloride (98-107) mmol/L Glucose (65-105) mg/dl Lactate (0.7-2.1) mmol/L Vent Mode FiO2 % Inspiratory BiPAP Expiratory BiPAP Crit Value Called To Crit Value Called By Crit Value Read Back Blood Gas Notified Time Potassium (3.6-5.2) mmol/L Carbon Dioxide (22-30) mmol/L Anion Gap (10-20) BUN (7-17) mg/dL Creatinine (0.7-1.2) mg/dL Est GFR ( Amer) Est GFR (Non-Af Amer) POC Glucose (mg/dL) 134 H 136 H 135 H (65-110) mg/dL Random Glucose (65-105) mg/dL Calcium (8.6-10.4) mg/dl Phosphorus (2.5-4.5) mg/dL Magnesium (1.6-2.3) mg/dL Total Bilirubin (0.2-1.3) mg/dL AST (14-36) U/L ALT (9-52) U/L Alkaline Phosphatase (38-126) U/L Total Protein (6.3-8.3) g/dL Albumin (3.5-5.0) g/dL Globulin (2.2-3.9) gm/dL Albumin/Globulin Ratio (1.0-2.1) Arterial Blood Potassium (3.6-5.2) mmol/L 12/12/17 Range/Units 17:07 Puncture Site Rra pCO2 73 H* (35-45) mm/Hg pO2 110 H (80-100) mm/Hg HCO3 32.4 H (21-28) mmol/L ABG pH 7.33 L (7.35-7.45) ABG Total CO2 40.7 H (22-28) mmol/L ABG O2 Saturation 98.8 H (95-98) % ABG Base Excess 9.6 H (-2.0-3.0) mmol/L ABG Hemoglobin (11.7-17.4) g/dL ABG Carboxyhemoglobin (0.5-1.5) % POC ABG HHb (Measured) (0.0-5.0) % ABG Methemoglobin (0.0-3.0) % Donta Test Na ABG Potassium 3.9 (3.6-5.2) mmol/L A-a O2 Difference -23.0 mm/Hg Respiratory Index -0.2 Hgb O2 Saturation (95.0-98.0) % Sodium 135.0 (132-148) mmol/l Chloride 97.0 L (98-107) mmol/L Glucose 130 H (65-105) mg/dl Lactate 0.7 (0.7-2.1) mmol/L Vent Mode Aprv FiO2 25.0 % Inspiratory BiPAP 25 Expiratory BiPAP 12 Crit Value Called To [place] agricultural extension educator Crit Value Called By Rowena Crit Value Read Back Y Blood Gas Notified Time 1710 Potassium (3.6-5.2) mmol/L Carbon Dioxide (22-30) mmol/L Anion Gap (10-20) BUN (7-17) mg/dL Creatinine (0.7-1.2) mg/dL Est GFR ( Amer) Est GFR (Non-Af Amer) POC Glucose (mg/dL) (65-110) mg/dL Random Glucose (65-105) mg/dL Calcium (8.6-10.4) mg/dl Phosphorus (2.5-4.5) mg/dL Magnesium (1.6-2.3) mg/dL Total Bilirubin (0.2-1.3) mg/dL AST (14-36) U/L ALT (9-52) U/L Alkaline Phosphatase (38-126) U/L Total Protein (6.3-8.3) g/dL Albumin (3.5-5.0) g/dL Globulin (2.2-3.9) gm/dL Albumin/Globulin Ratio (1.0-2.1) Arterial Blood Potassium 3.9 (3.6-5.2) mmol/L Laboratory Results - last 24 hr 12/12/17 12/12/17 12/12/17 17:07 17:56 23:19 Puncture Site Rra pCO2 73 H* pO2 110 H HCO3 32.4 H ABG pH 7.33 L ABG Total CO2 40.7 H ABG O2 Saturation 98.8 H ABG Base Excess 9.6 H ABG Hemoglobin ABG Carboxyhemoglobin POC ABG HHb (Measured) ABG Methemoglobin Donta Test Na ABG Potassium 3.9 A-a O2 Difference -23.0 Respiratory Index -0.2 Hgb O2 Saturation Sodium 135.0 Chloride 97.0 L Glucose 130 H Lactate 0.7 Vent Mode Aprv FiO2 25.0 Inspiratory BiPAP 25 Expiratory BiPAP 12 Crit Value Called To [place] agricultural extension educator Crit Value Called By Rowena Crit Value Read Back Y Blood Gas Notified Time 1710 Potassium Carbon Dioxide Anion Gap BUN Creatinine Est GFR ( Amer) Est GFR (Non-Af Amer) POC Glucose (mg/dL) 135 H 136 H Random Glucose Calcium Phosphorus Magnesium Total Bilirubin AST ALT Alkaline Phosphatase Total Protein Albumin Globulin Albumin/Globulin Ratio Arterial Blood Potassium 3.9 12/13/17 12/13/17 12/13/17 05:47 05:53 06:12 Puncture Site Rra pCO2 72 H* pO2 72 L HCO3 32.9 H ABG pH 7.34 L ABG Total CO2 41.0 H ABG O2 Saturation 96.7 ABG Base Excess 10.3 H ABG Hemoglobin 12.3 ABG Carboxyhemoglobin 2.0 H POC ABG HHb (Measured) 3.2 ABG Methemoglobin 0.7 Donta Test Na ABG Potassium A-a O2 Difference 16.0 Respiratory Index 0.2 Hgb O2 Saturation 94.1 L Sodium 137 Chloride 93 L Glucose Lactate Vent Mode Bipap FiO2 25.0 Inspiratory BiPAP 25 Expiratory BiPAP 12 Crit Value Called To [place] agricultural extension educator Crit Value Called By Rowena Crit Value Read Back Y Blood Gas Notified Time 601 Potassium 4.6 Carbon Dioxide 35 H Anion Gap 14 BUN 24 H Creatinine 0.7 Est GFR ( Amer) > 60 Est GFR (Non-Af Amer) > 60 POC Glucose (mg/dL) 134 H Random Glucose 134 H Calcium 8.7 Phosphorus 4.1 Magnesium 2.2 Total Bilirubin 0.5 AST 14 ALT 8 L Alkaline Phosphatase 49 Total Protein 7.2 Albumin 3.7 Globulin 3.5 Albumin/Globulin Ratio 1.1 Arterial Blood Potassium 12/13/17 12:00 Puncture Site pCO2 pO2 HCO3 ABG pH ABG Total CO2 ABG O2 Saturation ABG Base Excess ABG Hemoglobin ABG Carboxyhemoglobin POC ABG HHb (Measured) ABG Methemoglobin Donta Test ABG Potassium A-a O2 Difference Respiratory Index Hgb O2 Saturation Sodium Chloride Glucose Lactate Vent Mode FiO2 Inspiratory BiPAP Expiratory BiPAP Crit Value Called To Crit Value Called By Crit Value Read Back Blood Gas Notified Time Potassium Carbon Dioxide Anion Gap BUN Creatinine Est GFR ( Amer) Est GFR (Non-Af Amer) POC Glucose (mg/dL) 197 H Random Glucose Calcium Phosphorus Magnesium Total Bilirubin AST ALT Alkaline Phosphatase Total Protein Albumin Globulin Albumin/Globulin Ratio Arterial Blood Potassium Critical Care Progress Note - Nutrition Nutrition: Nutrition Category Date Time Status Diabetic [Consistent Carbohydrate] [DIET] Diets 12/13/17 Breakfast Active Assessment/Plan - Assessment and Plan (Free Text) Plan: Above resident has documented my clinical findings, including assessment and management. -PAtient is awake alert off bi-pap -tolerating oral diet -PAtient remains hemodynamically stable. -AVOID OPOIDS AND BENZOS - Date & Time Date: 12/13/17 Time: 13:48
[2017-12-13] MEDS: Azithromycin 500 MG in Sodium Chloride 0.9% 250 ML IVPB SCH (13:13)
--- NOTE | 2017-12-13 13:19 | CARD ---
APPROVED REPORT EKG Measurement Heart [id number] <Conclusion> Normal sinus rhythm Normal ECG
[2017-12-13 16:36] LABS: CK-MB 0.36 ng/mL (0.0-3.38)
[2017-12-13] MEDS: Insulin Detemir 100 units/ml Vial (Levemir) SC SCH (21:38)
[2017-12-14] MEDS: Albuterol-Ipratrop 3 mg / 0.5 (3 ml) UD INH SCH ×6 (01:11→19:19)
[2017-12-14] MEDS: (Novolog) Insulin Aspart, Recombinant 100 u/ml 10 ml vial SC SCH ×4 (08:59→21:47)
[2017-12-14] MEDS: Azithromycin 500 MG in Sodium Chloride 0.9% 250 ML IVPB SCH (10:27)
[2017-12-14] MEDS: Enoxaparin 40 mg Syringe SC SCH (10:30)
--- NOTE | 2017-12-14 17:09 | CP.PCM.PN ---
Subjective - Date & Time of Evaluation Date of Evaluation: 12/14/17 Time of Evaluation: 16:59 - Subjective Subjective: PGY2 progress note for Dr. Tovar Pt seen and examined at bedside. No acute events overnight. patient was downgraded to tele yesterday. Pt states breathing has improved. Currently denies having any Cp, SOB, abd pain, N/v/D/C, F/C. Pt tolerating PO intake and having regular BMs. Objective - Vital Signs/Intake and Output Vital Signs (last 24 hours): Temp Pulse Resp BP Pulse Ox 98.1 F 57 L 12 127/74 98 12/14/17 08:00 12/14/17 08:27 12/14/17 08:00 12/14/17 10:27 12/14/17 08:00 Intake and Output: 12/14/17 12/14/17 06:59 18:59 Intake Total 500 Output Total 800 Balance -300 - Medications Medications: Current Medications Albuterol/Ipratropium (Duoneb 3 Mg/0.5 Mg (3 Ml) Ud) 3 ml INH RQ4 [facility] Last Admin: 12/14/17 13:05 Dose: 3 ml Bisacodyl (Dulcolax) 10 mg OK DAILY [facility] Last Admin: 12/14/17 10:27 Dose: Not Given Carvedilol (Coreg) 25 mg PO BID [facility] Last Admin: 12/14/17 10:27 Dose: 25 mg Clonidine HCl (Catapres) 0.1 mg PO BID [facility] Last Admin: 12/14/17 10:27 Dose: 0.1 mg Enoxaparin Sodium (Lovenox) 40 mg SC DAILY [facility] Last Admin: 12/14/17 10:30 Dose: 40 mg Famotidine (Pepcid) 20 mg PO BID [facility] Last Admin: 12/14/17 10:26 Dose: 20 mg Furosemide (Lasix) 40 mg PO DAILY [facility] Last Admin: 12/14/17 10:26 Dose: 40 mg Azithromycin 500 mg/ Sodium (Chloride) 250 mls @ 250 mls/hr IVPB DAILY [facility] PRN Reason: Protocol Stop: 12/17/17 10:01 Last Admin: 12/14/17 10:27 Dose: 250 mls/hr Insulin Aspart (Novolog) 0 unit SC ACHS [facility] PRN Reason: Protocol Last Admin: 12/14/17 08:59 Dose: Not Given Insulin Detemir (Levemir) 14 unit SC HS [facility] Last Admin: 12/13/17 21:38 Dose: 14 unit - Labs Labs: 12/12/17 06:28 12/13/17 06:12 - Constitutional Appears: Non-toxic, No Acute Distress - Head Exam Head Exam: ATRAUMATIC - ENT Exam ENT Exam: Mucous Membranes Moist - Respiratory Exam Respiratory Exam: Clear to Ausculation Bilateral. absent: Accessory Muscle Use , Rales, Rhonchi, Wheezes, Respiratory Distress - Cardiovascular Exam Cardiovascular Exam: REGULAR RHYTHM, +S1, +S2. absent: Gallop, Rubs, Murmur - GI/Abdominal Exam GI & Abdominal Exam: Soft, Normal Bowel Sounds. absent: Distended, Firm, Guarding, Rigid, Tenderness, Organomegaly - Extremities Exam Extremities Exam: absent: Pedal Edema, Tenderness - Neurological Exam Neurological Exam: Alert, Awake, Oriented x3 - Psychiatric Exam Psychiatric exam: Normal Affect, Normal Mood - Skin Skin Exam: Dry, Intact, Normal Color, Warm Assessment and Plan - Assessment and Plan (Free Text) Assessment: 72 year old female with PMHx DM, COPD, FESTUS, HTN, Parkinsons Disease, Bipolar disorder, morbid obesity, obesity hypoventilation syndrome, anxiety, arthritis who presented with hypercarbic respiratory failure with AMS. Hypercarbic Respiratory Failure - With history of COPD, FESTUS and morbid obesity - Improved - currently on NC and saturating well - Continue Duonebs - continue zithromax x 5 doses 12/12-12/17 HTN - Continue Coreg 25 mg po BID - Clonidine 0.1 mg po BID - Lasixs 40 gm po QD DM - Accuchecks ACHS - Levemir 14 units HS - ISS Prophylaxis Lovenox 40 mg SC daily Pepcid 20 mg PO BID Colace PT/OT Dispo: Case management consulted for D/C back to shelter All orders and management per Dr. Tovar
--- NOTE | 2017-12-14 17:48 | CP.PCM.DIS ---
Provider - Provider Date of Admission: 12/11/17 19:39 Attending physician: Hayden Tovar Jr, MD Primary care physician: Dr. Tovar Consults: Critical Care; Dr. Lynda Foster Time Spent in preparation of Discharge (in minutes): 55 Diagnosis - Discharge Diagnosis (1) FESTUS (obstructive sleep apnea) Status: Chronic (2) Acute respiratory failure with hypercapnia Status: Acute (3) COPD (chronic obstructive pulmonary disease) Status: Chronic (4) Diabetes Status: Chronic (5) HTN (hypertension) Status: Chronic (6) Parkinsons Status: Chronic Hospital Course - Lab Results Lab Results: Micro Results 12/11/17 21:33 Nose MRSA Culture (Admit) - Final MRSA NOT DETECTED Most Recent Lab Values WBC 9.4 K/uL (4.8-10.8) 12/12/17 06:28 RBC 4.47 Mil/uL (3.80-5.20) 12/12/17 06:28 Hgb 12.6 g/dL (11.0-16.0) D 12/12/17 06:28 Hct 38.4 % (34.0-47.0) 12/12/17 06:28 MCV 85.9 fL (81.0-99.0) D 12/12/17 06:28 MCH 28.2 pg (27.0-31.0) 12/12/17 06:28 MCHC 32.9 g/dL (33.0-37.0) L 12/12/17 06:28 RDW 15.0 % (11.5-14.5) H 12/12/17 06:28 Plt Count 296 K/uL (130-400) 12/12/17 06:28 MPV 8.9 fL (7.2-11.7) 12/12/17 06:28 Neut % (Auto) 90.3 % (50.0-75.0) H 12/12/17 06:28 Lymph % (Auto) 8.9 % (20.0-40.0) L 12/12/17 06:28 [place] % (Auto) 0.5 % (0.0-10.0) 12/12/17 06:28 Eos % (Auto) 0.1 % (0.0-4.0) 12/12/17 06:28 Baso % (Auto) 0.2 % (0.0-2.0) 12/12/17 06:28 Neut # (Auto) 8.5 K/uL (1.8-7.0) H 12/12/17 06:28 Lymph # (Auto) 0.8 K/uL (1.0-4.3) L 12/12/17 06:28 [place] # (Auto) 0.0 K/uL (0.0-0.8) 12/12/17 06:28 Eos # (Auto) 0.0 K/uL (0.0-0.7) 12/12/17 06:28 Baso # (Auto) 0.0 K/uL (0.0-0.2) 12/12/17 06:28 Neutrophils % (Manual) 91 % (50-75) H 12/12/17 06:28 Lymphocytes % (Manual) 8 % (20-40) L 12/12/17 06:28 Monocytes % (Manual) 1 % (0-10) 12/12/17 06:28 Platelet Estimate Normal (NORMAL) 12/12/17 06:28 Large Platelets Present 12/12/17 06:28 Anisocytosis (manual) Slight 12/12/17 06:28 Target Cells Slight 12/12/17 06:28 Puncture Site Rra 12/13/17 05:53 pCO2 72 mm/Hg (35-45) H* 12/13/17 05:53 pO2 72 mm/Hg (80-100) L 12/13/17 05:53 HCO3 32.9 mmol/L (21-28) H 12/13/17 05:53 ABG pH 7.34 (7.35-7.45) L 12/13/17 05:53 ABG Total CO2 41.0 mmol/L (22-28) H 12/13/17 05:53 ABG O2 Saturation 96.7 % (95-98) 12/13/17 05:53 ABG Base Excess 10.3 mmol/L (-2.0-3.0) H 12/13/17 05:53 ABG Hemoglobin 12.3 g/dL (11.7-17.4) 12/13/17 05:53 ABG Carboxyhemoglobin 2.0 % (0.5-1.5) H 12/13/17 05:53 POC ABG HHb (Measured) 3.2 % (0.0-5.0) 12/13/17 05:53 ABG Methemoglobin 0.7 % (0.0-3.0) 12/13/17 05:53 [place] Test Na 12/13/17 05:53 ABG Potassium 3.9 mmol/L (3.6-5.2) 12/12/17 17:07 A-a O2 Difference 16.0 mm/Hg 12/13/17 05:53 Respiratory Index 0.2 12/13/17 05:53 Hgb O2 Saturation 94.1 % (95.0-98.0) L 12/13/17 05:53 Sodium 135.0 mmol/l (132-148) 12/12/17 17:07 Chloride 97.0 mmol/L (98-107) L 12/12/17 17:07 Glucose 130 mg/dl (65-105) H 12/12/17 17:07 Lactate 0.7 mmol/L (0.7-2.1) 12/12/17 17:07 Liter Flow 4.0 12/11/17 17:51 Vent Mode Bipap 12/13/17 05:53 Mechanical Rate 20 12/11/17 22:33 FiO2 25.0 % 12/13/17 05:53 Inspiratory BiPAP 12/13/17 05:53 Expiratory BiPAP 12/13/17 05:53 Crit Value Called To [employer] laboratory technician 12/13/17 05:53 Crit Value Called By Lendbrunilda 12/13/17 05:53 Crit Value Read Back Y 12/13/17 05:53 Blood Gas Notified Time 601 12/13/17 05:53 Sodium 137 mmol/L (132-148) 12/13/17 06:12 Potassium 4.6 mmol/L (3.6-5.2) 12/13/17 06:12 Chloride 93 mmol/L (98-107) L 12/13/17 06:12 Carbon Dioxide 35 mmol/L (22-30) H 12/13/17 06:12 Anion Gap 14 (10-20) 12/13/17 06:12 BUN 24 mg/dL (7-17) H 12/13/17 06:12 Creatinine 0.7 mg/dL (0.7-1.2) 12/13/17 06:12 Est GFR ( Amer) > 60 12/13/17 06:12 Est GFR (Non-Af Amer) > 60 12/13/17 06:12 POC Glucose (mg/dL) 89 mg/dL (65-110) 12/14/17 16:27 Random Glucose 134 mg/dL (65-105) H 12/13/17 06:12 Hemoglobin A1c 6.3 % (4.2-6.5) 12/12/17 09:46 Calcium 8.7 mg/dl (8.6-10.4) 12/13/17 06:12 Phosphorus 4.1 mg/dL (2.5-4.5) 12/13/17 06:12 Magnesium 2.2 mg/dL (1.6-2.3) 12/13/17 06:12 Total Bilirubin 0.5 mg/dL (0.2-1.3) 12/13/17 06:12 AST 14 U/L (14-36) 12/13/17 06:12 ALT 8 U/L (9-52) L 12/13/17 06:12 Alkaline Phosphatase 49 U/L (38-126) 12/13/17 06:12 Total Creatine Kinase < 20 U/L (30-135) L 12/13/17 16:08 CK-MB (Mass) 0.36 ng/mL (0.0-3.38) 12/13/17 16:08 Troponin I < 0.0120 ng/mL (0.00-0.120) 12/13/17 16:08 NT-Pro-B Natriuret Pep 334 pg/mL (0-900) 12/11/17 20:24 Total Protein 7.2 g/dL (6.3-8.3) 12/13/17 06:12 Albumin 3.7 g/dL (3.5-5.0) 12/13/17 06:12 Globulin 3.5 gm/dL (2.2-3.9) 12/13/17 06:12 Albumin/Globulin Ratio 1.1 (1.0-2.1) 12/13/17 06:12 Arterial Blood Potassium 3.9 mmol/L (3.6-5.2) 12/12/17 17:07 - Hospital Course Hospital Course: H&P: 72yo F. PMHx COPD (former smoker), DM, HTN, Parkinsons, bipolar disorder, FESTUS, morbid obesity, obesity hypoovenitlation, anxiety, arthritis, and multiple hospitalizations for hypercarbic respiratory failure with AMS. presents with recurrent hypercarbic respiratory failure with AMS. Briefly, patient presented with lethargy secondary to hypercarbic respiratory failure. Chest x ray on admission showed moderate venous congestion, small left pleural effusion and patchy increased consolidative changes in the right infrahilar region as well as left mid and lower lung. ICU consult was requested and patient was admitted to ICU. Patient was placed on BiPAP, breathing treatment, steroids and antibiotics. As patient respiratory status improved through the next few days, her mental status also improved. Patient was than down-graded out of ICU to telemetry. Patient's respiratory status remained stable and she was deemed stable for discharge back to halfway per Dr. Tovar. - Date & Time of H&P Date of H&P: 12/14/17 Time of H&P: 17:51 Discharge Exam - Head Exam Head Exam: ATRAUMATIC, NORMOCEPHALIC - Eye Exam Eye Exam: EOMI - ENT Exam ENT Exam: Mucous Membranes Moist - Respiratory Exam Respiratory Exam: Clear to PA & Lateral, NORMAL BREATHING PATTERN. absent: Accessory Muscle Use, Rales, Rhonchi, Wheezes - Cardiovascular Exam Cardiovascular Exam: REGULAR RHYTHM, +S1, +S2. absent: Diastolic murmur, Gallop , Rubs, Systolic Murmur - GI/Abdominal Exam GI & Abdominal Exam: Normal Bowel Sounds, Soft. absent: Distended, Firm, Guarding, Rigid, Unremarkable - Neurological Exam Neurological exam: Alert, Oriented x3 - Psychiatric Exam Psychiatric exam: Normal Affect, Normal Mood - Skin Skin Exam: Dry, Intact, Normal Color, Warm Discharge Plan - Follow Up Plan Condition: IMPROVED Disposition: NURSING FACILITY MEDICAID CERT Additional Instructions: Patient stable for discharge back to halfway per Dr. Tovar. Patient to continue her home medications as prescribed. Patient will continue Zithromax for 3 more days (stop on 12/17/17).
[2017-12-14 20:01] LABS: HEMOGLOBIN 11.4 g/dL (11.0-16.0); MEAN CORPUSCULAR HEMOGLOBIN 27.5 pg (27.0-31.0); MEAN CORPUSCULAR HGB CONC 32.3 g/dL (33.0-37.0); MEAN PLATELET VOLUME 8.7 fL (7.2-11.7); RBC 4.16 Mil/uL (3.80-5.20); RED CELL DISTRIBUTION WIDTH 15.1 % (11.5-14.5); WHITE BLOOD COUNT 11.5 K/uL (4.8-10.8)
[2017-12-14 20:16] LABS: ALB/GLOB RATIO 1.1 (1.0-2.1); ALBUMIN 3.3 g/dL (3.5-5.0); ALT/SGPT 12 U/L (9-52); AST/SGOT 11 U/L (14-36); BLOOD UREA NITROGEN 25 mg/dL (7-17); CALCIUM 8.2 mg/dl (8.6-10.4); GFR AFRICAN-AMERICAN > 60; GFR NON-AFRICAN AMERICAN > 60
[2017-12-14] MEDS: Insulin Detemir 100 units/ml Vial (Levemir) SC SCH (21:52)
[2017-12-14 23:53] VITALS: O2SAT 100
[2017-12-15] MEDS: Albuterol-Ipratrop 3 mg / 0.5 (3 ml) UD INH SCH ×4 (00:52→11:09)
[2017-12-15] MEDS: (Novolog) Insulin Aspart, Recombinant 100 u/ml 10 ml vial SC SCH (08:36)
[2017-12-15] MEDS: Enoxaparin 40 mg Syringe SC SCH (09:24)
[2017-12-15 12:45] VITALS: BP 116/74; PULSE 62; RESP 14; TEMP 98.2
== END 2017-12-15 13:10 | DRG 189 ==
LOC: C.ER 16:28 → C.9I 19:39 → C.9E 19:39
PROVIDERS: ADMIT Internal Medicine; ATTEND Internal Medicine
PROC: 5A09457 Assistance with Respiratory Ventilation, 24-96 Consecutive Hours, Continuous Positive Airway Pressure (ICD-10-PCS; principal; 2017-12-11)
PROC: 03H733Z Insertion of Infusion Device into Right Brachial Artery, Percutaneous Approach (ICD-10-PCS; 2017-12-13)
DX: J96.02 Acute respiratory failure with hypercapnia (principal); G93.41 Metabolic encephalopathy; J44.1 Chronic obstructive pulmonary disease with (acute) exacerbation; E87.2 Acidosis; E66.2 Morbid (severe) obesity with alveolar hypoventilation; I10 Essential (primary) hypertension; G47.33 Obstructive sleep apnea (adult) (pediatric); E11.9 Type 2 diabetes mellitus without complications; E03.9 Hypothyroidism, unspecified; D63.8 Anemia in other chronic diseases classified elsewhere; G20 Parkinson's disease; F31.9 Bipolar disorder, unspecified; Z68.42 Body mass index [BMI] 45.0-49.9, adult; K21.9 Gastro-esophageal reflux disease without esophagitis; Z96.651 Presence of right artificial knee joint; Z87.891 Personal history of nicotine dependence; Z79.4 Long term (current) use of insulin; Z90.710 Acquired absence of both cervix and uterus; Z87.440 Personal history of urinary (tract) infections

== ENCOUNTER 2018-01-07 14:05 | Inpatient (IN) | payer MEDICARE, MEDICAID ==
[2018-01-07 14:05] VITALS: BMI 60.2
[2018-01-07] MEDS ORDERED: Naloxone 0.4 mg/ml Inj (Adult) IVP ONE (15:11)
[2018-01-07 15:14] LABS: BASO # 0.1 K/uL (0.0-0.2); BASO % 0.7 % (0.0-2.0); EOS % 0.2 % (0.0-4.0); HEMOGLOBIN 11.3 g/dL (11.0-16.0); LYMPH # 1.7 K/uL (1.0-4.3); MEAN CORPUSCULAR HGB CONC 31.4 g/dL (33.0-37.0); MEAN PLATELET VOLUME 8.6 fL (7.2-11.7); MONO # 0.9 K/uL (0.0-0.8); MONO % 5.9 % (0.0-10.0); NEUT # 12.6 K/uL (1.8-7.0); NEUT % 82.2 % (50.0-75.0); RBC 4.03 Mil/uL (3.80-5.20); RED CELL DISTRIBUTION WIDTH 14.6 % (11.5-14.5); WHITE BLOOD COUNT 15.3 K/uL (4.8-10.8)
--- NOTE | 2018-01-07 15:15 | C.PDOC ---
History Of Present Illness 72yo female with history of COPD, dementia, is sent to ER from [facility] for evaluation of altered mental status. A full HPI and ROS is limited due to the patient's clinical condition. PMD: Dr. Lor Foster Time Seen by Provider: 01/07/18 14:43 Chief Complaint (Nursing): Altered Mental Status History Per: Other (halfway records) History/Exam Limitations: Clinical Condition Onset/Duration Of Symptoms: Unknown Past Medical History Reviewed: Historical Data, Nursing Documentation, Vital Signs Vital Signs: Last Vital Signs Temp 97.6 F 01/07/18 15:26 Pulse 74 01/07/18 22:03 Resp 18 01/07/18 21:40 BP 139/75 01/07/18 21:37 Pulse Ox 90 L 01/07/18 22:28 - Medical History PMH: Anemia, Anxiety, Arthritis, Bipolar Disorder, COPD, Depression, HTN, Hypothyroidism, Parkinson's Disease, Sleep Apnea (on Bipap) Denies: Chronic Kidney Disease Surgical History: No Surg Hx - [facility] Procedures ASSISTANCE WITH RESPIRATORY VENTILATION, 24-96 HRS, CPAP (12/11/17) CONTINUOUS INVASIVE MECHANICAL VENTILATION <96 CONSEC HRS (12/29/12) CONTINUOUS INVASIVE MECHANICAL VENTILATION =/>96 CONSEC HRS (02/28/13) DX ULTRASOUND-HEART (08/29/13) EXCISION OF RIGHT BREAST, OPEN APPROACH, DIAGNOSTIC (09/18/15) INCIS W REM OF FORIEGN BODY OR DEV FROM SKIN & SUBCUT TISSUE (08/29/13) INSERT ENDOTRACHEAL TUBE (02/28/13) INSERT INDWELLING CATH (12/26/12) INSERTION OF ENDOTRACHEAL AIRWAY INTO TRACHEA, VIA OPENING (07/14/17) INSERTION OF INFUSION DEV INTO SUP VENA CAVA, PERC APPROACH (10/21/16) INSERTION OF INFUSION DEVICE INTO R BRACH ART, PERC APPROACH (12/11/17) NON-INVASIVE MECHANICAL VENTILATION (08/29/13) RESPIRATORY VENTILATION, 24-96 CONSECUTIVE HOURS (07/14/17) Family History: States: Unknown Family Hx - Social History Hx Tobacco Use: (Unknown) Hx Alcohol Use: No Hx Substance Use: No - Immunization History Hx Tetanus Toxoid Vaccination: No Hx Influenza Vaccination: No Hx Pneumococcal Vaccination: No (05/28/2009) Review Of Systems Except As Marked, All Systems Reviewed And Found Negative. Constitutional: Negative for: Fever, Chills Eyes: Negative for: Pain ENT: Negative for: Ear Pain, Throat Pain Cardiovascular: Negative for: Chest Pain Respiratory: Negative for: Cough, Shortness of Breath, SOB with Excertion, Pleuritic Pain Gastrointestinal: Negative for: Nausea, Vomiting, Abdominal Pain, Constipation, Melena Genitourinary: Negative for: Dysuria, Hematuria Musculoskeletal: Negative for: Neck Pain, Shoulder Pain, Back Pain Skin: Negative for: Rash Neurological: Positive for: Altered Mental Status. Negative for: Weakness Psych: Negative for: Anxiety, Depression Physical Exam - Physical Exam Appears: Other (morbidly obese) Skin: Warm, Dry Head: Atraumatic, Normacephalic Eye(s): bilateral: Other (constricted pupils 2mm) Ear(s): Bilateral: Normal Oral Mucosa: Moist Tongue: Normal Appearing Lips: Normal Appearing Teeth: Normal Dentition Throat: Normal Neck: Normal ROM, Supple Chest: Symmetrical Cardiovascular: Other (heart sounds distant) Respiratory: Decreased Breath Sounds, Other (posterior crackles) Gastrointestinal/Abdominal: Soft, No Tenderness, Other (large pannus) Back: Normal Inspection, No Vertebral Tenderness, No Paraspinal Tenderness Extremity: Normal ROM, No Pedal Edema Extremity: Bilateral: Atraumatic Neurological/Psych: Other (lethargic but arousable to voice commands) ED Course And Treatment - Laboratory Results Result Diagrams: 01/07/18 15:08 01/07/18 15:50 ECG: Interpreted By Id ECG Rhythm: Sinus Rhythm, 1st Degree HB Interpretation Of ECG: [place] 218 QRS 100 QT 438 QTC 444 Rate From EC O2 Sat by Pulse Oximetry: 90 Critical Care Time - Critical Care Note Total Time (in mins): 45 Documented critical care: time excludes all time spent performing seperately billable procedures. Medical Decision Making Medical Decision Making: Impression: Altered mental status Plan: -- Labs -- CT head -- CXR -- Narcan 0.04mg IVP -- Urinalysis -- ABG shock panel Time: 1548 CXR FINDINGS: LUNGS: There are low lung volumes. There is mild pulmonary venous congestion. PLEURA: Suspect small pleural effusions. No pneumothorax. CARDIOVASCULAR: Persistent moderate cardiomegaly. Atherosclerotic aortic arch calcifications are present. OSSEOUS STRUCTURES: No significant abnormalities. VISUALIZED UPPER ABDOMEN: Normal. OTHER FINDINGS: None. IMPRESSION: Persistent moderate cardiomegaly and suspect small pleural effusions with mild pulmonary venous congestion. Time: 1556 PH 7.1 Co2 119 PO 31 patient to be placed on BIPAP and if she failed, patient to be intubated. Time: 1625 CT Head FINDINGS: HEMORRHAGE: No intracranial hemorrhage. BRAIN: Kurtz-white matter differentiation is preserved. There is no mass, mass effect or abnormal extra-axial fluid collection VENTRICLES: There is mild age-related global parenchymal volume loss and proportionate enlargement of the ventricles and cortical sulci. CALVARIUM: The skull base and calvarium are normal. There is mild hyperostosis frontalis interna. PARANASAL SINUSES: There is mild chronic right maxillary sinusitis. The remaining included paranasal sinuses are clear. MASTOID AIR CELLS: Unremarkable as visualized. No inflammatory changes. OTHER FINDINGS: None. IMPRESSION: No acute intracranial abnormality. Mild age-related global parenchymal volume loss. Time: [address] Romeo and patient to be admitted to ICU. Patient given lasix IVP Time: 20:24 Case discussed with patient's primary doctor, Dr. Lor Foster, who accepts patient for admission. Disposition - Disposition Disposition: HOSPITALIZED Disposition Time: 20:24 Condition: CRITICAL - Clinical Impression Clinical Impression: Acute respiratory failure with hypoxia and hypercapnia - Scribe Statement The provider has reviewed the documentation as recorded by the Scribe (Nori Kim) Provider Attestation: All medical record entries made by the Scribe were at my direction and personally dictated by me. I have reviewed the chart and agree that the record accurately reflects my personal performance of the history, physical exam, medical decision making, and the department course for this patient. I have also personally directed, reviewed, and agree with the discharge instructions and disposition.
--- NOTE | 2018-01-07 15:50 | RAD ---
PROCEDURE: CHEST RADIOGRAPH, 1 VIEW HISTORY: AMS COMPARISON: 12/11/2017. FINDINGS: LUNGS: There are low lung volumes. There is mild pulmonary venous congestion. PLEURA: Suspect small pleural effusions. No pneumothorax. CARDIOVASCULAR: Persistent moderate cardiomegaly. Atherosclerotic aortic arch calcifications are present. OSSEOUS STRUCTURES: No significant abnormalities. VISUALIZED UPPER ABDOMEN: Normal. OTHER FINDINGS: None. IMPRESSION: Persistent moderate cardiomegaly and suspect small pleural effusions with mild pulmonary venous congestion.
[2018-01-07 15:53] LABS: ARTERIAL BLOOD GAS O2 SAT 58.9 % (95-98); ARTERIAL BLOOD GAS PCO2 119 mm/Hg (35-45); ARTERIAL BLOOD GAS PH 7.13 (7.35-7.45); ARTERIAL BLOOD GAS PO2 31 mm/Hg (80-100); ARTERIAL BLOOD GAS TCO2 43.3 mmol/L (22-28)
[2018-01-07 16:08] LABS: PROTHROMBIN TIME 11.3 SECONDS (9.7-12.2)
[2018-01-07] MEDS ORDERED: Calcium Gluconate 4.65 mEq/10 ml Inj ONE (16:15)
[2018-01-07 16:16] LABS: ALB/GLOB RATIO 1.1 (1.0-2.1); ALBUMIN 3.7 g/dL (3.5-5.0); ALT/SGPT 13 U/L (9-52); AST/SGOT 24 U/L (14-36); BLOOD UREA NITROGEN 22 mg/dL (7-17); GFR AFRICAN-AMERICAN > 60; GFR NON-AFRICAN AMERICAN 55
[2018-01-07] MEDS ORDERED: Dextrose 50% SYRINGE Inj (50 ml) ONE (16:16)
[2018-01-07] MEDS ORDERED: Magnesium Sulfate 1 gm in D5W 0 GM/0 ML BAG IVPB ONE (16:17)
[2018-01-07] MEDS ORDERED: (Novolin R) Insulin Human Regular 100 units/ml vial ONE (16:17)
--- NOTE | 2018-01-07 16:27 | CT ---
PROCEDURE: CT HEAD WITHOUT CONTRAST. HISTORY: AMS COMPARISON: 07/14/2017. TECHNIQUE: Axial computed tomography images were obtained through the head/brain without intravenous contrast. Radiation dose: Total exam DLP = 1446.71 mGy-cm. This CT exam was performed using one or more of the following dose reduction techniques: Automated exposure control, adjustment of the mA and/or kV according to patient size, and/or use of iterative reconstruction technique. FINDINGS: HEMORRHAGE: No intracranial hemorrhage. BRAIN: Kurtz-white matter differentiation is preserved. There is no mass, mass effect or abnormal extra-axial fluid collection VENTRICLES: There is mild age-related global parenchymal volume loss and proportionate enlargement of the ventricles and cortical sulci. CALVARIUM: The skull base and calvarium are normal. There is mild hyperostosis frontalis interna. PARANASAL SINUSES: There is mild chronic right maxillary sinusitis. The remaining included paranasal sinuses are clear. MASTOID AIR CELLS: Unremarkable as visualized. No inflammatory changes. OTHER FINDINGS: None. IMPRESSION: No acute intracranial abnormality. Mild age-related global parenchymal volume loss.
[2018-01-07 17:33] LABS: ABG ALLEN TEST POS; ARTERIAL BLOOD GAS HCO3 28.9 mmol/L (21-28); ARTERIAL BLOOD GAS HEMOGLOBIN 11.6 g/dL (11.7-17.4); ARTERIAL BLOOD GAS O2 SAT 97.3 % (95-98); ARTERIAL BLOOD GAS PCO2 89 mm/Hg (35-45); ARTERIAL BLOOD GAS PH 7.21 (7.35-7.45); ARTERIAL BLOOD GAS PO2 77 mm/Hg (80-100); ARTERIAL BLOOD GAS TCO2 38.3 mmol/L (22-28)
[2018-01-07 18:27] LABS: SQUAMOUS EPITHIAL < 1 /hpf (0-5); URINE BACTERIA RARE (<OCC); URINE BILIRUBIN NEGATIVE (NEGATIVE); URINE BLOOD NEGATIVE (NEGATIVE); URINE CLARITY Clear (Clear); URINE COLOR Yellow (YELLOW); URINE GLUCOSE (UA) NORMAL (Normal); URINE LEUKOCYTE ESTERASE NEG Leu/uL (Negative); URINE PROTEIN 1+ mg/dL (NEGATIVE); URINE UROBILINOGEN NORMAL mg/dL (0.2-1.0)
[2018-01-07 20:09] LABS: ARTERIAL BLOOD GAS HEMOGLOBIN 11.9 g/dL (11.7-17.4); ARTERIAL BLOOD GAS O2 SAT 97.6 % (95-98); ARTERIAL BLOOD GAS PCO2 88 mm/Hg (35-45); ARTERIAL BLOOD GAS PH 7.23 (7.35-7.45); ARTERIAL BLOOD GAS PO2 78 mm/Hg (80-100); ARTERIAL BLOOD GAS TCO2 39.6 mmol/L (22-28)
--- NOTE | 2018-01-07 20:12 | CP.PCM.CON ---
History of Present Illness - History of Present Illness History of Present Illness: 72yo female with history of COPD,Obesity hypoventillation syndrome,Bipolar disorder,HTN,DM,Hypothyroidism former smoker with multiple admissions for hypercapnic respiratory failure sent to ER from [facility] for evaluation of altered mental status. In ER patients pH was 7.13 with ,PaCO2 of 119 ,place on BIPAP with improvement in PaCO2 and mental status. Patient is able to answer questions.She doesnot know why she is in the hospital.Denies chestpain,palpitations,nausea,vomiting,abdominal pain.Uses BIPAP at the intermediate Review of Systems - Constitutional Constitutional: absent: Chills, Fever - EENT Eyes: absent: Pain Ears: absent: Ear Pain, Dizziness Nose/Mouth/Throat: absent: Nasal Congestion, Sore Throat - Cardiovascular Cardiovascular: absent: Chest Pain, Leg Edema - Respiratory Respiratory: absent: Cough, Dyspnea, Chest Congestion - Gastrointestinal Gastrointestinal: absent: Abdominal Pain, Nausea, Vomiting - Genitourinary Genitourinary: absent: Dysuria - Musculoskeletal Musculoskeletal: absent: Joint Swelling - Neurological Neurological: absent: Dizziness - Endocrine Endocrine: absent: Palpitations, Polyuria Past Patient History - Infectious Disease Hx of Infectious Diseases: VRE - Tetanus Immunizations Tetanus Immunization: Unknown - Past Medical History & Family History Past Medical History?: Yes - Past Social History Smoking Status: Former Smoker Alcohol: None - CARDIAC Hx Hypertension: Yes - PULMONARY Hx Chronic Obstructive Pulmonary Disease (COPD): Yes Hx Sleep Apnea: Yes (on Bipap) - NEUROLOGICAL Hx Parkinson's Disease: Yes - HEENT Hx HEENT Problems: No - RENAL Hx Chronic Kidney Disease: No - ENDOCRINE/METABOLIC Hx Hypothyroidism: Yes - HEMATOLOGICAL/ONCOLOGICAL Hx Anemia: Yes - INTEGUMENTARY Hx Dermatological Problems: No - MUSCULOSKELETAL/RHEUMATOLOGICAL Hx Arthritis: Yes - GASTROINTESTINAL Hx Gastrointestinal Disorders: Yes Hx Constipation: Yes Hx Gastroesophageal Reflux: Yes - GENITOURINARY/GYNECOLOGICAL Hx Genitourinary Disorders: Yes Hx Incontinence: Yes Hx Urinary Tract Infection: Yes - PSYCHIATRIC Hx Anxiety: Yes Hx Bipolar Disorder: Yes Hx Depression: Yes Hx Substance Use: No - SURGICAL HISTORY Hx Surgeries: Yes Hx Hysterectomy: Yes Hx Orthopedic Surgery: Yes Other/Comment: right knee replacement 2014; right knee prosthesis removal s/p infection 2014 - ANESTHESIA Hx Anesthesia: Yes Hx Anesthesia Reactions: No Hx Malignant Hyperthermia: No Meds Allergies/Adverse Reactions: Allergies Allergy/AdvReac Type Severity Reaction Status Date / Time Cephalosporins Allergy Intermediate RASH Verified 01/07/18 14:29 Penicillins Allergy Intermediate RASH Verified 01/07/18 14:29 clonazepam [From Klonopin] Allergy Verified 01/07/18 14:29 mustard Allergy Intermediate RASH Uncoded 01/07/18 14:29 Physical Exam - Constitutional Appears: No Acute Distress Additional comments: morbidly obese - Head Exam Head Exam: ATRAUMATIC, NORMAL INSPECTION, NORMOCEPHALIC - Eye Exam Eye Exam: EOMI, PERRL. absent: Conjunctival injection - ENT Exam ENT Exam: Mucous Membranes Dry, Normal External Ear Exam - Neck Exam Neck exam: Positive for: Normal Inspection - Respiratory Exam Respiratory Exam: Clear to Auscultation Bilateral Additional comments: on BIPAP,decreased air entry in bases no rhonchi or rales - Cardiovascular Exam Cardiovascular Exam: REGULAR RHYTHM. absent: JVD - GI/Abdominal Exam GI & Abdominal Exam: Normal Bowel Sounds, Soft. absent: Tenderness Additional comments: Obese - Extremities Exam Extremities exam: Positive for: normal inspection. Negative for: calf tenderness, pedal edema - Neurological Exam Neurological exam: Alert, Oriented x3 - Skin Skin Exam: Dry, Intact, Warm Results - Vital Signs Recent Vital Signs: Last Vital Signs Temp 97.6 F 01/07/18 15:26 Pulse 69 01/07/18 18:22 Resp 16 01/07/18 18:22 BP 137/61 01/07/18 18:22 Pulse Ox 90 L 01/07/18 18:57 - Labs Result Diagrams: 01/07/18 15:08 01/07/18 15:50 Labs: Laboratory Results - last 24 hr 01/07/18 01/07/18 01/07/18 14:12 15:08 15:50 WBC 15.3 H RBC 4.03 Hgb 11.3 Hct 35.9 MCV 89.0 D MCH 28.0 MCHC 31.4 L RDW 14.6 H Plt Count 321 MPV 8.6 Neut % (Auto) 82.2 H Lymph % (Auto) 11.0 L [place] % (Auto) 5.9 Eos % (Auto) 0.2 Baso % (Auto) 0.7 Neut # (Auto) 12.6 H Lymph # (Auto) 1.7 [place] # (Auto) 0.9 H Eos # (Auto) 0.0 Baso # (Auto) 0.1 PT 11.3 INR 1.0 APTT 30 Puncture Site pCO2 pO2 HCO3 ABG pH ABG Total CO2 ABG O2 Saturation ABG Base Excess ABG Hemoglobin ABG Carboxyhemoglobin POC ABG HHb (Measured) ABG Methemoglobin Donta Test ABG Potassium A-a O2 Difference Respiratory Index Hgb O2 Saturation Sodium Chloride Glucose Lactate Liter Flow FiO2 Inspiratory BiPAP Expiratory BiPAP Crit Value Called To Crit Value Called By Crit Value Read Back Blood Gas Notified Time Potassium Carbon Dioxide Anion Gap BUN Creatinine Est GFR ( Amer) Est GFR (Non-Af Amer) POC Glucose (mg/dL) 191 H Random Glucose Calcium Total Bilirubin AST ALT Alkaline Phosphatase Total Protein Albumin Globulin Albumin/Globulin Ratio Arterial Blood Potassium Urine Color Urine Clarity Urine pH Ur Specific [place] Urine Protein Urine Glucose (UA) Urine Ketones Urine Blood Urine Nitrate Urine Bilirubin Urine Urobilinogen Ur Leukocyte Esterase Urine WBC (Auto) Urine RBC (Auto) Ur Squamous Epith Cells Urine Bacteria Hyaline Casts 01/07/18 01/07/18 01/07/18 15:50 15:50 17:25 WBC RBC Hgb Hct MCV MCH MCHC RDW Plt Count MPV Neut % (Auto) Lymph % (Auto) [place] % (Auto) Eos % (Auto) Baso % (Auto) Neut # (Auto) Lymph # (Auto) [place] # (Auto) Eos # (Auto) Baso # (Auto) PT INR APTT Puncture Site Rb Lra pCO2 119 H* 89 H* pO2 31 L* 77 L HCO3 28.0 28.9 H ABG pH 7.13 L* 7.21 L ABG Total CO2 43.3 H 38.3 H ABG O2 Saturation 58.9 L 97.3 ABG Base Excess 6.0 H 5.2 H ABG Hemoglobin 11.6 L ABG Carboxyhemoglobin 2.2 H POC ABG HHb (Measured) 2.6 ABG Methemoglobin 1.4 Donta Test Na Pos ABG Potassium 4.6 A-a O2 Difference 20.0 26.0 Respiratory Index 0.6 0.3 Hgb O2 Saturation 93.8 L Sodium 134.0 134 Chloride 95.0 L 91 L Glucose 155 H Lactate 0.7 Liter Flow 2.0 FiO2 28.0 30.0 Inspiratory BiPAP 22 Expiratory BiPAP 11 Crit Value Called To Dr yanci cosme Crit Value Called By Michael sanidad [facility] Crit Value Read Back Y Y Blood Gas Notified Time 1553 1733 Potassium 5.2 Carbon Dioxide 35 H Anion Gap 13 BUN 22 H Creatinine 1.0 Est GFR ( Amer) > 60 Est GFR (Non-Af Amer) 55 POC Glucose (mg/dL) Random Glucose 157 H Calcium 9.0 Total Bilirubin 0.5 AST 24 ALT 13 Alkaline Phosphatase 66 Total Protein 7.1 Albumin 3.7 Globulin 3.4 Albumin/Globulin Ratio 1.1 Arterial Blood Potassium 4.6 Urine Color Urine Clarity Urine pH Ur Specific [place] Urine Protein Urine Glucose (UA) Urine Ketones Urine Blood Urine Nitrate Urine Bilirubin Urine Urobilinogen Ur Leukocyte Esterase Urine WBC (Auto) Urine RBC (Auto) Ur Squamous Epith Cells Urine Bacteria Hyaline Casts 01/07/18 18:20 WBC RBC Hgb Hct MCV MCH MCHC RDW Plt Count MPV Neut % (Auto) Lymph % (Auto) [place] % (Auto) Eos % (Auto) Baso % (Auto) Neut # (Auto) Lymph # (Auto) [place] # (Auto) Eos # (Auto) Baso # (Auto) PT INR APTT Puncture Site pCO2 pO2 HCO3 ABG pH ABG Total CO2 ABG O2 Saturation ABG Base Excess ABG Hemoglobin ABG Carboxyhemoglobin POC ABG HHb (Measured) ABG Methemoglobin Donta Test ABG Potassium A-a O2 Difference Respiratory Index Hgb O2 Saturation Sodium Chloride Glucose Lactate Liter Flow FiO2 Inspiratory BiPAP Expiratory BiPAP Crit Value Called To Crit Value Called By Crit Value Read Back Blood Gas Notified Time Potassium Carbon Dioxide Anion Gap BUN Creatinine Est GFR ( Amer) Est GFR (Non-Af Amer) POC Glucose (mg/dL) Random Glucose Calcium Total Bilirubin AST ALT Alkaline Phosphatase Total Protein Albumin Globulin Albumin/Globulin Ratio Arterial Blood Potassium Urine Color Yellow Urine Clarity Clear Urine pH 7.0 Ur Specific [place] 1.011 Urine Protein 1+ H Urine Glucose (UA) Normal Urine Ketones Negative Urine Blood Negative Urine Nitrate Negative Urine Bilirubin Negative Urine Urobilinogen Normal Ur Leukocyte Esterase Neg Urine WBC (Auto) 5 Urine RBC (Auto) 4 H Ur Squamous Epith Cells < 1 Urine Bacteria Rare Hyaline Casts 6-10 H - EKG Data EKG Interpreted by: Myself - Imaging and Cardiology Chest x-ray Status: Image reviewed by me, Report reviewed by me CT scan - head Status: Image reviewed by me, Report reviewed by me Assessment & Plan - Assessment and Plan (Free Text) Assessment: 1.Hypercapnic respiratory failure in 72 y/o female with COPD/OHS with multiple admissions for respiratory failure,clinically improved with BIPAP Continue BIPAP Bronchodilators steroids 2.HTN Coreg,vasotec,clonidine,imdur 3.DM NPO tonight Insulin 4.Hypothyroidism on synthroid 5.Bipolar disorder
[2018-01-07] MEDS ORDERED: Albuterol-Ipratrop 3 mg / 0.5 (3 ml) UD INH PRN (20:45)
[2018-01-07] MEDS ORDERED: methylPREDNISolone 40 MG in Sodium Chloride 0.9% 100 ML IVPB SCH (22:00)
[2018-01-07] MEDS: MethylPREDNISolone 40 mg Vial IV SCH (22:36)
[2018-01-08 00:23] LABS: ABG ALLEN TEST POS; ARTERIAL BLOOD GAS HCO3 30.4 mmol/L (21-28); ARTERIAL BLOOD GAS HEMOGLOBIN 11.8 g/dL (11.7-17.4); ARTERIAL BLOOD GAS O2 SAT 95.1 % (95-98); ARTERIAL BLOOD GAS PCO2 82 mm/Hg (35-45); ARTERIAL BLOOD GAS PH 7.26 (7.35-7.45); ARTERIAL BLOOD GAS PO2 63 mm/Hg (80-100); ARTERIAL BLOOD GAS TCO2 39.3 mmol/L (22-28)
[2018-01-08] MEDS: (Novolin R) Insulin Human Regular 100 units/ml vial SC SCH ×5 (00:32→21:59)
[2018-01-08 05:56] LABS: ABG ALLEN TEST POS; ARTERIAL BLOOD GAS HCO3 31.6 mmol/L (21-28); ARTERIAL BLOOD GAS HEMOGLOBIN 12.1 g/dL (11.7-17.4); ARTERIAL BLOOD GAS O2 SAT 97.1 % (95-98); ARTERIAL BLOOD GAS PCO2 72 mm/Hg (35-45); ARTERIAL BLOOD GAS PH 7.32 (7.35-7.45); ARTERIAL BLOOD GAS PO2 82 mm/Hg (80-100); ARTERIAL BLOOD GAS TCO2 39.3 mmol/L (22-28)
[2018-01-08] MEDS: MethylPREDNISolone 40 mg Vial IV SCH ×3 (05:56→21:58)
[2018-01-08] MEDS: Levothyroxine 150 MCG TAB PO SCH (06:14)
[2018-01-08 06:51] LABS: ALB/GLOB RATIO 1.2 (1.0-2.1); ALBUMIN 4.3 g/dL (3.5-5.0); ALT/SGPT 13 U/L (9-52); AST/SGOT 18 U/L (14-36); BLOOD UREA NITROGEN 25 mg/dL (7-17); CALCIUM 8.9 mg/dl (8.6-10.4); GFR AFRICAN-AMERICAN > 60; GFR NON-AFRICAN AMERICAN > 60
[2018-01-08 06:56] LABS: BASO % 0.1 % (0.0-2.0); HEMOGLOBIN 11.4 g/dL (11.0-16.0); LYMPH # 1.1 K/uL (1.0-4.3); LYMPH % 7.8 % (20.0-40.0); MEAN CELL VOLUME 87.1 fL (81.0-99.0); MEAN CORPUSCULAR HEMOGLOBIN 27.6 pg (27.0-31.0); MEAN CORPUSCULAR HGB CONC 31.7 g/dL (33.0-37.0); MONO # 0.1 K/uL (0.0-0.8); MONO % 0.8 % (0.0-10.0); NEUT # 12.5 K/uL (1.8-7.0); NEUT % 91.3 % (50.0-75.0); NRBC % 0.1 % (0.0-2.0); PLATELET COUNT 335 K/uL (130-400); RBC 4.14 Mil/uL (3.80-5.20); RED CELL DISTRIBUTION WIDTH 14.3 % (11.5-14.5); WHITE BLOOD COUNT 13.7 K/uL (4.8-10.8)
--- NOTE | 2018-01-08 08:27 | RAD ---
PROCEDURE: CHEST RADIOGRAPH, 1 VIEW HISTORY: respiratory failure COMPARISON: 01/07/2018. FINDINGS: LUNGS: The lungs are well inflated and clear. PLEURA: No pneumothorax or pleural fluid seen. CARDIOVASCULAR: Again seen is moderate cardiomegaly. OSSEOUS STRUCTURES: No significant abnormalities. VISUALIZED UPPER ABDOMEN: Normal. OTHER FINDINGS: None. IMPRESSION: No active pulmonary disease.
[2018-01-08 08:54] LABS: LYMPHOCYTE 10 % (20-40); MONOCYTE 1 % (0-10); NEUTROPHIL 89 % (50-75); PLATELET ESTIMATE NORMAL (NORMAL); TOTAL CELLS COUNTED 100
[2018-01-08] MEDS: Enoxaparin 40 mg Syringe SC SCH (10:18)
[2018-01-08] MEDS: Ciprofloxacin 400mg/200ml D5W 400 MG/200 ML BAG IVPB SCH ×2 (10:19→21:30)
--- NOTE | 2018-01-08 13:26 | CARD ---
APPROVED REPORT EKG Measurement Heart [id number] <Conclusion> Sinus rhythm with 1st degree AV block Otherwise normal ECG
[2018-01-08] MEDS: Albuterol-Ipratrop 3 mg / 0.5 (3 ml) UD INH SCH ×2 (13:34→19:28)
--- NOTE | 2018-01-08 16:11 | RAD ---
HISTORY: verify right PICC COMPARISON: Plain radiographs performed earlier the same day FINDINGS: The right PICC line terminates in the axillary vein. LUNGS: The lungs are clear. PLEURA: No significant pleural effusion identified, no pneumothorax apparent. CARDIOVASCULAR: The heart is normal in size. Atherosclerotic aortic arch calcifications are present. OSSEOUS STRUCTURES: No significant abnormalities. VISUALIZED UPPER ABDOMEN: Normal. OTHER FINDINGS: None. IMPRESSION: The right PICC line terminates in the axillary vein. No acute findings.
--- NOTE | 2018-01-08 17:31 | CP.PCM.HP ---
Past Patient History - Infectious Disease Hx of Infectious Diseases: VRE - Tetanus Immunizations Tetanus Immunization: Unknown - Past Medical History & Family History Past Medical History?: Yes - Past Social History Smoking Status: Former Smoker - CARDIAC Hx Hypertension: Yes - PULMONARY Hx Chronic Obstructive Pulmonary Disease (COPD): Yes Hx Sleep Apnea: Yes (on Bipap) - NEUROLOGICAL Hx Parkinson's Disease: Yes - HEENT Hx HEENT Problems: No - RENAL Hx Chronic Kidney Disease: No - ENDOCRINE/METABOLIC Hx Hypothyroidism: Yes - HEMATOLOGICAL/ONCOLOGICAL Hx Anemia: Yes - INTEGUMENTARY Hx Dermatological Problems: No - MUSCULOSKELETAL/RHEUMATOLOGICAL Hx Arthritis: Yes - GASTROINTESTINAL Hx Gastrointestinal Disorders: Yes Hx Constipation: Yes Hx Gastroesophageal Reflux: Yes - GENITOURINARY/GYNECOLOGICAL Hx Genitourinary Disorders: Yes Hx Incontinence: Yes Hx Urinary Tract Infection: Yes - PSYCHIATRIC Hx Anxiety: Yes Hx Bipolar Disorder: Yes Hx Depression: Yes Hx Substance Use: No - SURGICAL HISTORY Hx Surgeries: Yes Hx Hysterectomy: Yes Hx Orthopedic Surgery: Yes Other/Comment: right knee replacement 2014; right knee prosthesis removal s/p infection 2014 - ANESTHESIA Hx Anesthesia: Yes Hx Anesthesia Reactions: No Hx Malignant Hyperthermia: No Meds Allergies/Adverse Reactions: Allergies Allergy/AdvReac Type Severity Reaction Status Date / Time Cephalosporins Allergy Intermediate RASH Verified 01/07/18 14:29 Penicillins Allergy Intermediate RASH Verified 01/07/18 14:29 clonazepam [From Klonopin] Allergy Verified 01/07/18 14:29 mustard Allergy Intermediate RASH Uncoded 01/07/18 14:29 Physical Exam - Constitutional Appears: Well - Head Exam Head Exam: ATRAUMATIC, NORMAL INSPECTION, NORMOCEPHALIC - Eye Exam Eye Exam: EOMI, Normal appearance, PERRL Pupil Exam: NORMAL ACCOMODATION, PERRL - ENT Exam ENT Exam: Mucous Membranes Moist, Normal Exam - Neck Exam Neck exam: Positive for: Normal Inspection - Respiratory Exam Respiratory Exam: Decreased Breath Sounds - Cardiovascular Exam Cardiovascular Exam: REGULAR RHYTHM, +S1, +S2 - GI/Abdominal Exam GI & Abdominal Exam: Diminished Bowel Sounds, Soft - Rectal Exam Rectal Exam: Deferred Results - Vital Signs Recent Vital Signs: Last Vital Signs Temp 99.2 F 01/08/18 12:00 Pulse 80 01/08/18 15:40 Resp 17 01/08/18 15:07 BP 124/73 01/08/18 15:07 Pulse Ox 92 L 01/08/18 15:07 - Labs Result Diagrams: 01/08/18 06:28 01/08/18 06:28 Labs: Laboratory Results - last 24 hr 01/07/18 01/07/18 01/07/18 17:25 18:20 20:06 WBC RBC Hgb Hct MCV MCH MCHC RDW Plt Count MPV Neut % (Auto) Lymph % (Auto) [place] % (Auto) Eos % (Auto) Baso % (Auto) Neut # (Auto) Lymph # (Auto) [place] # (Auto) Eos # (Auto) Baso # (Auto) Neutrophils % (Manual) Lymphocytes % (Manual) Monocytes % (Manual) Platelet Estimate RBC Morphology Puncture Site Lra Rra pCO2 89 H* 88 H* pO2 77 L 78 L HCO3 28.9 H 30.0 H ABG pH 7.21 L 7.23 L ABG Total CO2 38.3 H 39.6 H ABG O2 Saturation 97.3 97.6 ABG Base Excess 5.2 H 6.6 H ABG Hemoglobin 11.6 L 11.9 ABG Carboxyhemoglobin 2.2 H 2.4 H POC ABG HHb (Measured) 2.6 2.3 ABG Methemoglobin 1.4 1.2 Donta Test Pos Na A-a O2 Difference 26.0 26.0 Respiratory Index 0.3 0.3 Hgb O2 Saturation 93.8 L 94.2 L Vent Mode Bipap FiO2 30.0 30.0 Inspiratory BiPAP 22 18 Expiratory BiPAP 11 8 Crit Value Called To Dr carmelina Cerrato md Crit Value Called By [facility] Crit Value Read Back Y Y Blood Gas Notified Time 1732 2008 Sodium Potassium Chloride Carbon Dioxide Anion Gap BUN Creatinine Est GFR ( Amer) Est GFR (Non-Af Amer) POC Glucose (mg/dL) Random Glucose Calcium Phosphorus Magnesium Total Bilirubin AST ALT Alkaline Phosphatase Troponin I Total Protein Albumin Globulin Albumin/Globulin Ratio TSH 3rd Generation Urine Color Yellow Urine Clarity Clear Urine pH 7.0 Ur Specific [place] 1.011 Urine Protein 1+ H Urine Glucose (UA) Normal Urine Ketones Negative Urine Blood Negative Urine Nitrate Negative Urine Bilirubin Negative Urine Urobilinogen Normal Ur Leukocyte Esterase Neg Urine WBC (Auto) 5 Urine RBC (Auto) 4 H Ur Squamous Epith Cells < 1 Urine Bacteria Rare Hyaline Casts 6-10 H 01/08/18 01/08/18 01/08/18 00:09 00:17 05:30 WBC RBC Hgb Hct MCV MCH MCHC RDW Plt Count MPV Neut % (Auto) Lymph % (Auto) [place] % (Auto) Eos % (Auto) Baso % (Auto) Neut # (Auto) Lymph # (Auto) [place] # (Auto) Eos # (Auto) Baso # (Auto) Neutrophils % (Manual) Lymphocytes % (Manual) Monocytes % (Manual) Platelet Estimate RBC Morphology Puncture Site Rr Rr pCO2 82 H* 72 H* pO2 63 L 82 HCO3 30.4 H 31.6 H ABG pH 7.26 L 7.32 L ABG Total CO2 39.3 H 39.3 H ABG O2 Saturation 95.1 97.1 ABG Base Excess 7.1 H 8.6 H ABG Hemoglobin 11.8 12.1 ABG Carboxyhemoglobin 2.2 H 2.0 H POC ABG HHb (Measured) 4.8 2.8 ABG Methemoglobin 0.4 1.1 Donta Test Pos Pos A-a O2 Difference 48.0 42.0 Respiratory Index 0.8 0.5 Hgb O2 Saturation 92.7 L 94.1 L Vent Mode Bipap Bipap FiO2 30.0 30.0 Inspiratory BiPAP 20 20 Expiratory BiPAP 10 10 Crit Value Called To Dr. elkin Fournier Crit Value Called By [facility] Crit Value Read Back Y Y Blood Gas Notified Time 22 555 Sodium Potassium Chloride Carbon Dioxide Anion Gap BUN Creatinine Est GFR ( Amer) Est GFR (Non-Af Amer) POC Glucose (mg/dL) 117 H Random Glucose Calcium Phosphorus Magnesium Total Bilirubin AST ALT Alkaline Phosphatase Troponin I Total Protein Albumin Globulin Albumin/Globulin Ratio TSH 3rd Generation Urine Color Urine Clarity Urine pH Ur Specific [place] Urine Protein Urine Glucose (UA) Urine Ketones Urine Blood Urine Nitrate Urine Bilirubin Urine Urobilinogen Ur Leukocyte Esterase Urine WBC (Auto) Urine RBC (Auto) Ur Squamous Epith Cells Urine Bacteria Hyaline Casts 01/08/18 01/08/18 01/08/18 05:44 06:28 06:28 WBC 13.7 H RBC 4.14 Hgb 11.4 Hct 36.0 MCV 87.1 MCH 27.6 MCHC 31.7 L RDW 14.3 Plt Count 335 MPV 9.0 Neut % (Auto) 91.3 H Lymph % (Auto) 7.8 L [place] % (Auto) 0.8 Eos % (Auto) 0.0 Baso % (Auto) 0.1 Neut # (Auto) 12.5 H Lymph # (Auto) 1.1 [place] # (Auto) 0.1 Eos # (Auto) 0.0 Baso # (Auto) 0.0 Neutrophils % (Manual) 89 H Lymphocytes % (Manual) 10 L Monocytes % (Manual) 1 Platelet Estimate Normal RBC Morphology Normal Puncture Site pCO2 pO2 HCO3 ABG pH ABG Total CO2 ABG O2 Saturation ABG Base Excess ABG Hemoglobin ABG Carboxyhemoglobin POC ABG HHb (Measured) ABG Methemoglobin Donta Test A-a O2 Difference Respiratory Index Hgb O2 Saturation Vent Mode FiO2 Inspiratory BiPAP Expiratory BiPAP Crit Value Called To Crit Value Called By Crit Value Read Back Blood Gas Notified Time Sodium 135 Potassium 5.0 Chloride 92 L Carbon Dioxide 33 H Anion Gap 14 BUN 25 H Creatinine 0.8 Est GFR ( Amer) > 60 Est GFR (Non-Af Amer) > 60 POC Glucose (mg/dL) 153 H Random Glucose 134 H Calcium 8.9 Phosphorus 4.1 Magnesium 2.3 Total Bilirubin 0.5 AST 18 ALT 13 Alkaline Phosphatase 83 Troponin I < 0.0120 Total Protein 8.0 Albumin 4.3 Globulin 3.7 Albumin/Globulin Ratio 1.2 TSH 3rd Generation 0.41 L Urine Color Urine Clarity Urine pH Ur Specific [place] Urine Protein Urine Glucose (UA) Urine Ketones Urine Blood Urine Nitrate Urine Bilirubin Urine Urobilinogen Ur Leukocyte Esterase Urine WBC (Auto) Urine RBC (Auto) Ur Squamous Epith Cells Urine Bacteria Hyaline Casts 01/08/18 01/08/18 11:40 16:39 WBC RBC Hgb Hct MCV MCH MCHC RDW Plt Count MPV Neut % (Auto) Lymph % (Auto) [place] % (Auto) Eos % (Auto) Baso % (Auto) Neut # (Auto) Lymph # (Auto) [place] # (Auto) Eos # (Auto) Baso # (Auto) Neutrophils % (Manual) Lymphocytes % (Manual) Monocytes % (Manual) Platelet Estimate RBC Morphology Puncture Site pCO2 pO2 HCO3 ABG pH ABG Total CO2 ABG O2 Saturation ABG Base Excess ABG Hemoglobin ABG Carboxyhemoglobin POC ABG HHb (Measured) ABG Methemoglobin Donta Test A-a O2 Difference Respiratory Index Hgb O2 Saturation Vent Mode FiO2 Inspiratory BiPAP Expiratory BiPAP Crit Value Called To Crit Value Called By Crit Value Read Back Blood Gas Notified Time Sodium Potassium Chloride Carbon Dioxide Anion Gap BUN Creatinine Est GFR ( Amer) Est GFR (Non-Af Amer) POC Glucose (mg/dL) 219 H 117 H Random Glucose Calcium Phosphorus Magnesium Total Bilirubin AST ALT Alkaline Phosphatase Troponin I Total Protein Albumin Globulin Albumin/Globulin Ratio TSH 3rd Generation Urine Color Urine Clarity Urine pH Ur Specific [place] Urine Protein Urine Glucose (UA) Urine Ketones Urine Blood Urine Nitrate Urine Bilirubin Urine Urobilinogen Ur Leukocyte Esterase Urine WBC (Auto) Urine RBC (Auto) Ur Squamous Epith Cells Urine Bacteria Hyaline Casts
--- NOTE | 2018-01-08 19:16 | CP.PCM.PN ---
Subjective - Date & Time of Evaluation Date of Evaluation: 01/08/18 Time of Evaluation: 16:00 - Subjective Subjective: 72yo female with history of COPD,Obesity hypoventillation syndrome,Bipolar disorder,HTN,DM,Hypothyroidism former smoker with multiple admissions for hypercapnic respiratory failure sent to ER from [facility] for evaluation of altered mental status. In ER patients pH was 7.13 with ,PaCO2 of 119 ,place on BIPAP with improvement in PaCO2 and mental status. Objective - Vital Signs/Intake and Output Vital Signs (last 24 hours): Temp Pulse Resp BP Pulse Ox 99.1 F 86 20 115/76 99 01/08/18 16:00 01/08/18 18:00 01/08/18 18:00 01/08/18 17:59 01/08/18 18:00 Intake and Output: 01/08/18 01/09/18 18:59 06:59 Intake Total 800 Output Total 450 Balance 350 - Medications Medications: Current Medications Albuterol/Ipratropium (Duoneb 3 Mg/0.5 Mg (3 Ml) Ud) 3 ml INH RQ6 [facility] Last Admin: 01/08/18 13:34 Dose: 3 ml Carvedilol (Coreg) 12.5 mg PO BID [facility] Last Admin: 01/08/18 17:59 Dose: 12.5 mg Clonidine HCl (Catapres) 0.1 mg PO BID [facility] Last Admin: 01/08/18 18:01 Dose: Not Given Enoxaparin Sodium (Lovenox) 40 mg SC DAILY [facility] Last Admin: 01/08/18 10:18 Dose: 40 mg Famotidine (Pepcid) 20 mg PO DAILY [facility] Last Admin: 01/08/18 10:18 Dose: 20 mg Furosemide (Lasix) 40 mg IVP DAILY [facility] Ciprofloxacin (Cipro 400mg/200ml Dsw) 400 mg in 200 mls @ 133 mls/hr IVPB Q12H [facility] PRN Reason: Protocol Last Admin: 01/08/18 10:19 Dose: 133 mls/hr Insulin Human Regular (Novolin R) 0 unit SC ACHS [facility] PRN Reason: Protocol Last Admin: 01/08/18 16:30 Dose: Not Given Isosorbide Mononitrate (Imdur Er) 30 mg PO DAILY [facility] Last Admin: 01/08/18 10:18 Dose: 30 mg Ketorolac Tromethamine (Toradol) 30 mg IVP Q6 PRN PRN Reason: Pain, severe (8-10) Stop: 01/11/18 12:01 Last Admin: 01/08/18 12:20 Dose: 30 mg Levothyroxine Sodium (Synthroid) 150 mcg PO DAILY@0630 [facility] Last Admin: 01/08/18 06:14 Dose: 150 mcg Methylprednisolone (Solu-Medrol) 40 mg IV Q8H [facility] Last Admin: 01/08/18 14:19 Dose: 40 mg Montelukast Sodium (Singulair) 10 mg PO HS [facility] Last Admin: 01/07/18 23:17 Dose: Not Given - Labs Labs: 01/08/18 06:28 01/08/18 06:28 PT 11.3 SECONDS (9.7-12.2) 01/07/18 15:50 INR 1.0 01/07/18 15:50 APTT 30 SECONDS (21-34) 01/07/18 15:50 - Head Exam Head Exam: ATRAUMATIC, NORMOCEPHALIC - ENT Exam ENT Exam: Mucous Membranes Moist - Neck Exam Neck Exam: Normal Inspection - Respiratory Exam Respiratory Exam: Decreased Breath Sounds - Cardiovascular Exam Cardiovascular Exam: REGULAR RHYTHM Assessment and Plan (1) Acute respiratory failure with hypercapnia Assessment & Plan: cont BIPAP iv steroids nebuliser treatment lasix Status: Acute (2) COPD (chronic obstructive pulmonary disease) Status: Acute (3) FESTUS (obstructive sleep apnea) Status: Chronic
[2018-01-09] MEDS: Albuterol-Ipratrop 3 mg / 0.5 (3 ml) UD INH SCH ×4 (01:00→20:25)
[2018-01-09] MEDS: MethylPREDNISolone 40 mg Vial IV SCH ×3 (06:53→22:20)
[2018-01-09] MEDS: Levothyroxine 150 MCG TAB PO SCH (06:53)
[2018-01-09] MEDS: (Novolin R) Insulin Human Regular 100 units/ml vial SC SCH ×4 (08:10→22:25)
[2018-01-09] MEDS: Ciprofloxacin 400mg/200ml D5W 400 MG/200 ML BAG IVPB SCH ×2 (10:00→22:23)
[2018-01-09] MEDS: Enoxaparin 40 mg Syringe SC SCH (10:43)
--- NOTE | 2018-01-09 13:04 | CP.PCM.CON ---
History of Present Illness - History of Present Illness History of Present Illness: I was asked to see patient by Dr Lor Foster. patient is a 72 year old female with PMH HTN, hypercholesterolemia who presents with dsypnea. Patient has sleep apnea and obesity hypoventilation syndrome. She has altered mental status associated with hypercapneic respiratory failure. Review of Systems - Constitutional Constitutional: absent: As Per HPI, Anorexia, Chills, Daytime Sleepiness, Excessive Sweating, Fatigue, Fever, Frequent Falls, Headache, Increased Appetite , Lethargy, Malaise, Night Sweats, Snoring, Sleep Apnea, Weight Gain, Weight Loss, Weakness, Other - EENT Eyes: absent: As Per HPI, Blind Spots, Blurred Vision, Change in Vision, Decreased Night Vision, Diplopia, Discharge, Dry Eye, Exophthalmos, Floaters, Irritation, Itchy Eyes, Loss of Peripheral Vision, Pain, Photophobia, Requires Corrective Lenses, Sees Flashes, Spots in Vision, Tunnel Vision, Other Visual Disturbances, Loss of Vision, Other Ears: absent: As Per HPI, Decreased Hearing, Ear Discharge, Ear Pain, Tinnitus, Abnormal Hearing, Disequilibrium, Dizziness, Other Nose/Mouth/Throat: absent: As Per HPI, Epistaxis, Nasal Congestion, Nasal Discharge, Nasal Obstruction, Nasal Trauma, Nose Pain, Post Nasal Drip, Sinus Pain, Sinus Pressure, Bleeding Gums, Change in Voice, Dental Pain, Dry Mouth, Dysphagia, Halitosis, Hoarsness, Lip Swelling, Mouth Lesions, Mouth Pain, Odynophagia, Sore Throat, Throat Swelling, Tongue Swelling, Facial Pain, Neck Pain, Neck Mass, Other - Breasts Breasts: absent: As Per HPI, Change in Shape, Mass, Pain, Nipple Discharge, Nipple Inversion, Skin Changes, Swelling, Other - Cardiovascular Cardiovascular: Dyspnea - Respiratory Respiratory: Dyspnea - Gastrointestinal Gastrointestinal: absent: As Per HPI, Abdominal Pain, Belching, Bloating, Change in Bowel Habits, Change in Stool Character, Coffee Ground Emesis, Constipation, Cramping, Diarrhea, Dyspepsia, Dysphagia, Early Satiety, Excessive Flatus, Fecal Incontinence, Heartburn, Hematemesis, Hematochezia, Loose Stools, Melena, Nausea, Odynophagia, Temesmus, Vomiting, Other - Genitourinary Genitourinary: absent: As Per HPI, Change in Urinary Stream, Difficulty Urinating, Dysuria, Flank Pain, Hematuria, Pyuria, Nocturia, Urinary Incontinence, Urinary Frequency, Urinary Hesitance, Urinary Urgency, Voiding Freq/Small Amts, Freq UTI, Hx Renal/Bladder Calculi, Hx /Renal Surgery, Bladder Distension, Other - Musculoskeletal Musculoskeletal: absent: As Per HPI, Abnormal Gait, Arthralgias, Atrophy, Back Pain, Deformity, Joint Swelling, Limited Range of Motion, Loss of Height, Muscle Cramps, Muscle Weakness, Myalgias, Neck Pain, Numbness, Radiating Pain into Limb, Stiffness, Tingling, Other - Integumentary Integumentary: absent: As Per HPI, Acne, Alopecia, Bleeding Lesions, Change in Hair, Change in Nails, Change in Pigmentation, Changing Lesions, Dry Skin, Erythema, Furuncle, Hirsutism, Lesions, New Lesions, Non-Healing Lesions, Photosensitivity, Pruritus, Rash, Skin Pain, Skin Ulcer, Sores, Striae, Swelling , Unusual Bruising, Wounds, Jaundice, Other - Neurological Neurological: absent: As Per HPI, Abnormal Gait, Abnormal Hearing, Abnormal Movements, Abnormal Speech, Behavioral Changes, Burning Sensations, Confusion, Convulsions, Disequilibrium, Dizziness, Numbness, Focal Weakness, Frequent Falls , Headaches, Lack of Coordination, Loss of Vision, Memory Loss, Paresthesias, Radicular Pain, Restless Legs, Sensory Deficit, Syncope, Tingling, Tremor, Vertigo, Weakness, Other Visual Disturbances, Other - Psychiatric Psychiatric: absent: As Per HPI, Abnormal Sleep Pattern, Anhedonia, Anxiety, Auditory Hallucinations, Behavioral Changes, Change in Appetite, Change in Libido, Confusion, Depression, Difficulty Concentrating, Hallucinations, Homicidal Ideation, Hopelessness, Irritability, Memory Loss, Mood Swings, Panic Attacks, Paranoia, Suicidal Ideation, Visual Hallucinations, Tactile Hallucinations, Other - Endocrine Endocrine: absent: As Per HPI, Change in Body Appearance, Change in Libido, Cold Intolorance, Deepening of Voice, Excessive Sweating, Fatigue, Flushing, Heat Intolorance, Increase in Ring/Shoe/Hat Size, Palpitations, Polydipsia, Polyphagia, Polyuria, Other - Hematologic/Lymphatic Hematologic: absent: As Per HPI, Easy Bleeding, Easy Bruising, Lymphadenopathy, Other Past Patient History - Infectious Disease Hx of Infectious Diseases: VRE - Tetanus Immunizations Tetanus Immunization: Unknown - Past Medical History & Family History Past Medical History?: Yes - Past Social History Smoking Status: Former Smoker - CARDIAC Hx Hypertension: Yes - PULMONARY Hx Chronic Obstructive Pulmonary Disease (COPD): Yes Hx Sleep Apnea: Yes (on Bipap) - NEUROLOGICAL Hx Parkinson's Disease: Yes - HEENT Hx HEENT Problems: No - RENAL Hx Chronic Kidney Disease: No - ENDOCRINE/METABOLIC Hx Hypothyroidism: Yes - HEMATOLOGICAL/ONCOLOGICAL Hx Anemia: Yes - INTEGUMENTARY Hx Dermatological Problems: No - MUSCULOSKELETAL/RHEUMATOLOGICAL Hx Arthritis: Yes - GASTROINTESTINAL Hx Gastrointestinal Disorders: Yes Hx Constipation: Yes Hx Gastroesophageal Reflux: Yes - GENITOURINARY/GYNECOLOGICAL Hx Genitourinary Disorders: Yes Hx Incontinence: Yes Hx Urinary Tract Infection: Yes - PSYCHIATRIC Hx Anxiety: Yes Hx Bipolar Disorder: Yes Hx Depression: Yes Hx Substance Use: No - SURGICAL HISTORY Hx Surgeries: Yes Hx Hysterectomy: Yes Hx Orthopedic Surgery: Yes Other/Comment: right knee replacement 2014; right knee prosthesis removal s/p infection 2014 - ANESTHESIA Hx Anesthesia: Yes Hx Anesthesia Reactions: No Hx Malignant Hyperthermia: No Meds Allergies/Adverse Reactions: Allergies Allergy/AdvReac Type Severity Reaction Status Date / Time Cephalosporins Allergy Intermediate RASH Verified 01/07/18 14:29 Penicillins Allergy Intermediate RASH Verified 01/07/18 14:29 clonazepam [From Klonopin] Allergy Verified 01/07/18 14:29 mustard Allergy Intermediate RASH Uncoded 01/07/18 14:29 - Medications Medications: Current Medications Albuterol/Ipratropium (Duoneb 3 Mg/0.5 Mg (3 Ml) Ud) 3 ml INH RQ6 [facility] Last Admin: 01/09/18 07:48 Dose: 3 ml Carvedilol (Coreg) 12.5 mg PO BID [facility] Last Admin: 01/09/18 10:42 Dose: 12.5 mg Clonidine HCl (Catapres) 0.1 mg PO BID [facility] Last Admin: 01/09/18 10:42 Dose: 0.1 mg Enoxaparin Sodium (Lovenox) 40 mg SC DAILY [facility] Last Admin: 01/09/18 10:43 Dose: 40 mg Famotidine (Pepcid) 20 mg PO DAILY [facility] Last Admin: 01/09/18 10:42 Dose: 20 mg Furosemide (Lasix) 40 mg IVP DAILY [facility] Last Admin: 01/09/18 10:42 Dose: 40 mg Ciprofloxacin (Cipro 400mg/200ml Dsw) 400 mg in 200 mls @ 133 mls/hr IVPB Q12H [facility] PRN Reason: Protocol Last Admin: 01/09/18 10:00 Dose: 133 mls/hr Insulin Human Regular (Novolin R) 0 unit SC ACHS [facility] PRN Reason: Protocol Last Admin: 01/09/18 12:32 Dose: 3 unit Isosorbide Mononitrate (Imdur Er) 30 mg PO DAILY [facility] Last Admin: 01/09/18 10:42 Dose: 30 mg Ketorolac Tromethamine (Toradol) 30 mg IVP Q6 PRN PRN Reason: Pain, severe (8-10) Stop: 01/11/18 12:01 Last Admin: 01/09/18 10:54 Dose: 30 mg Levothyroxine Sodium (Synthroid) 150 mcg PO DAILY@0630 [facility] Last Admin: 01/09/18 06:53 Dose: 150 mcg Methylprednisolone (Solu-Medrol) 40 mg IV Q8H [facility] Last Admin: 01/09/18 06:53 Dose: 40 mg Montelukast Sodium (Singulair) 10 mg PO HS [facility] Last Admin: 01/08/18 21:58 Dose: 10 mg Physical Exam - Head Exam Head Exam: NORMAL INSPECTION - Eye Exam Eye Exam: Normal appearance - ENT Exam ENT Exam: Mucous Membranes Moist - Neck Exam Neck exam: Positive for: Full Rom - Respiratory Exam Respiratory Exam: Decreased Breath Sounds - Cardiovascular Exam Cardiovascular Exam: REGULAR RHYTHM - GI/Abdominal Exam GI & Abdominal Exam: Normal Bowel Sounds - Rectal Exam Rectal Exam: Deferred - Extremities Exam Extremities exam: Negative for: pedal edema - Back Exam Back exam: NORMAL INSPECTION - Neurological Exam Neurological exam: Alert, Oriented x3 - Psychiatric Exam Additional comments: patient - Skin Skin Exam: Normal Color Results - Vital Signs Recent Vital Signs: Last Vital Signs Temp 97.5 F L 01/09/18 08:00 Pulse 75 01/09/18 09:00 Resp 14 01/09/18 09:00 BP 164/90 H 01/09/18 10:42 Pulse Ox 84 L 01/09/18 08:37 - Labs Result Diagrams: 01/08/18 06:28 01/08/18 06:28 Labs: Laboratory Results - last 24 hr 05/01/08/18 01/09/18 16:39 21:18 07:49 POC Glucose (mg/dL) 117 H 134 H 176 H 01/09/18 11:39 POC Glucose (mg/dL) 219 H - EKG Data EKG Interpreted by: Myself Assessment & Plan (1) COPD (chronic obstructive pulmonary disease) Assessment and Plan: patient's presentation is likely due COPD. Recommend echo to evaluate LV function and RV function. Status: Chronic (2) HTN (hypertension) Status: Chronic
--- NOTE | 2018-01-09 14:00 | CARD ---
APPROVED REPORT EKG Measurement Heart [id number] <Conclusion> Normal sinus rhythm Nonspecific ST and T wave abnormality Abnormal ECG
--- NOTE | 2018-01-09 14:27 | CP.PCM.CON ---
History of Present Illness - History of Present Illness History of Present Illness: INFECTIOUS DISEASE CONSULT. HPI: 72yo female with history of COPD, Morbid Obesity hypoventillation syndrome, Bipolar disorder,HTN,DM,Hypothyroidism former smoker with multiple admissions for hypercapnic respiratory failure sent to ER from [facility] on 01/07 for evaluation of altered mental status. In ER patients pH was 7.13 with ,PaCO2 of 119 ,placed on BIPAP with improvement in PaCO2 and mental status. PT PRESENTLY ON BIPAP. HX IS LIMITED UNABLE TO GIVE MUCH DETAILS. STATES HAS THICK SECRETIONS UNABLE TO EXPECTORATE. PT DENIES CHEST PAIN,OR PALPITATIONS. PT HAS MULTIPLE ALLERGIES. INFECTIOUS DISEASE CONSULT REQUESTED BY PMD DR Darrell NARVAEZ FOR AMS/EXASCERBATION OF COPD. PMH: Anemia, Anxiety, Arthritis, Bipolar Disorder, COPD, Depression, HTN, Hypothyroidism, Parkinson's Disease, Sleep Apnea (on Bipap) Denies: Chronic Kidney Disease Surgical History: No Surg Hx - [facility] Procedures ASSISTANCE WITH RESPIRATORY VENTILATION, 24-96 HRS, CPAP (12/11/17) CONTINUOUS INVASIVE MECHANICAL VENTILATION <96 CONSEC HRS (12/29/12) CONTINUOUS INVASIVE MECHANICAL VENTILATION =/>96 CONSEC HRS (02/28/13) DX ULTRASOUND-HEART (08/29/13) EXCISION OF RIGHT BREAST, OPEN APPROACH, DIAGNOSTIC (09/18/15) INCIS W REM OF FORIEGN BODY OR DEV FROM SKIN & SUBCUT TISSUE (08/29/13) INSERT ENDOTRACHEAL TUBE (02/28/13) INSERT INDWELLING CATH (12/26/12) INSERTION OF ENDOTRACHEAL AIRWAY INTO TRACHEA, VIA OPENING (07/14/17) INSERTION OF INFUSION DEV INTO SUP VENA CAVA, PERC APPROACH (10/21/16) INSERTION OF INFUSION DEVICE INTO R BRACH ART, PERC APPROACH (12/11/17) NON-INVASIVE MECHANICAL VENTILATION (08/29/13) RESPIRATORY VENTILATION, 24-96 CONSECUTIVE HOURS (07/14/17) Family History: States: Unknown Family Hx - Social History Hx Tobacco Use: (Unknown) Hx Alcohol Use: No Hx Substance Use: No - Immunization History Hx Tetanus Toxoid Vaccination: No Hx Influenza Vaccination: No Hx Pneumococcal Vaccination: No (05/28/2009 Review of Systems - Review of Systems All systems: reviewed and no additional remarkable complaints except - Cardiovascular Cardiovascular: As Per HPI, Dyspnea, Dyspnea on Exertion, Edema. absent: Chest Pain - Respiratory Respiratory: Cough, Dyspnea on Exertion, Change in Mucous Color. absent: Hemoptysis - Gastrointestinal Gastrointestinal: absent: Abdominal Pain, Diarrhea - Genitourinary Genitourinary: absent: Dysuria - Neurological Neurological: absent: Headaches - Hematologic/Lymphatic Hematologic: As Per HPI Past Patient History - Infectious Disease Hx of Infectious Diseases: VRE - Tetanus Immunizations Tetanus Immunization: Unknown - Past Medical History & Family History Past Medical History?: Yes - Past Social History Smoking Status: Former Smoker - CARDIAC Hx Hypertension: Yes - PULMONARY Hx Chronic Obstructive Pulmonary Disease (COPD): Yes Hx Sleep Apnea: Yes (on Bipap) - NEUROLOGICAL Hx Parkinson's Disease: Yes - HEENT Hx HEENT Problems: No - RENAL Hx Chronic Kidney Disease: No - ENDOCRINE/METABOLIC Hx Hypothyroidism: Yes - HEMATOLOGICAL/ONCOLOGICAL Hx Anemia: Yes - INTEGUMENTARY Hx Dermatological Problems: No - MUSCULOSKELETAL/RHEUMATOLOGICAL Hx Arthritis: Yes - GASTROINTESTINAL Hx Gastrointestinal Disorders: Yes Hx Constipation: Yes Hx Gastroesophageal Reflux: Yes - GENITOURINARY/GYNECOLOGICAL Hx Genitourinary Disorders: Yes Hx Incontinence: Yes Hx Urinary Tract Infection: Yes - PSYCHIATRIC Hx Anxiety: Yes Hx Bipolar Disorder: Yes Hx Depression: Yes Hx Substance Use: No - SURGICAL HISTORY Hx Surgeries: Yes Hx Hysterectomy: Yes Hx Orthopedic Surgery: Yes Other/Comment: right knee replacement 2014; right knee prosthesis removal s/p infection 2014 - ANESTHESIA Hx Anesthesia: Yes Hx Anesthesia Reactions: No Hx Malignant Hyperthermia: No Meds Allergies/Adverse Reactions: Allergies Allergy/AdvReac Type Severity Reaction Status Date / Time Cephalosporins Allergy Intermediate RASH Verified 01/07/18 14:29 Penicillins Allergy Intermediate RASH Verified 01/07/18 14:29 clonazepam [From Klonopin] Allergy Verified 01/07/18 14:29 mustard Allergy Intermediate RASH Uncoded 01/07/18 14:29 - Medications Medications: Current Medications Albuterol/Ipratropium (Duoneb 3 Mg/0.5 Mg (3 Ml) Ud) 3 ml INH RQ6 [facility] Last Admin: 01/09/18 07:48 Dose: 3 ml Carvedilol (Coreg) 12.5 mg PO BID [facility] Last Admin: 01/09/18 10:42 Dose: 12.5 mg Clonidine HCl (Catapres) 0.1 mg PO BID [facility] Last Admin: 01/09/18 10:42 Dose: 0.1 mg Enoxaparin Sodium (Lovenox) 40 mg SC DAILY [facility] Last Admin: 01/09/18 10:43 Dose: 40 mg Famotidine (Pepcid) 20 mg PO DAILY [facility] Last Admin: 01/09/18 10:42 Dose: 20 mg Furosemide (Lasix) 40 mg IVP DAILY [facility] Last Admin: 01/09/18 10:42 Dose: 40 mg Ciprofloxacin (Cipro 400mg/200ml Dsw) 400 mg in 200 mls @ 133 mls/hr IVPB Q12H [facility] PRN Reason: Protocol Last Admin: 01/09/18 10:00 Dose: 133 mls/hr Insulin Human Regular (Novolin R) 0 unit SC ACHS [facility] PRN Reason: Protocol Last Admin: 01/09/18 12:32 Dose: 3 unit Isosorbide Mononitrate (Imdur Er) 30 mg PO DAILY [facility] Last Admin: 01/09/18 10:42 Dose: 30 mg Ketorolac Tromethamine (Toradol) 30 mg IVP Q6 PRN PRN Reason: Pain, severe (8-10) Stop: 01/11/18 12:01 Last Admin: 01/09/18 10:54 Dose: 30 mg Levothyroxine Sodium (Synthroid) 150 mcg PO DAILY@0630 [facility] Last Admin: 01/09/18 06:53 Dose: 150 mcg Methylprednisolone (Solu-Medrol) 40 mg IV Q8H [facility] Last Admin: 01/09/18 13:50 Dose: 40 mg Montelukast Sodium (Singulair) 10 mg PO HS [facility] Last Admin: 01/08/18 21:58 Dose: 10 mg Physical Exam - Constitutional Appears: No Acute Distress - Head Exam Head Exam: ATRAUMATIC - Eye Exam Eye Exam: EOMI, PERRL - ENT Exam ENT Exam: Normal Oropharynx - Neck Exam Neck exam: Positive for: Normal Inspection - Respiratory Exam Respiratory Exam: Prolonged Expiratory Phase, Wheezes - Cardiovascular Exam Cardiovascular Exam: REGULAR RHYTHM, +S1, +S2 - GI/Abdominal Exam GI & Abdominal Exam: Normal Bowel Sounds, Soft. absent: Organomegaly, Tenderness - Extremities Exam Extremities exam: Positive for: pedal edema, pedal pulses present. Negative for : calf tenderness - Neurological Exam Neurological exam: Alert, CN II-XII Intact - Psychiatric Exam Psychiatric exam: Normal Mood - Skin Skin Exam: Normal Color, Warm Results - Vital Signs Recent Vital Signs: Last Vital Signs Temp 97.5 F L 01/09/18 08:00 Pulse 75 01/09/18 09:00 Resp 14 01/09/18 09:00 BP 164/90 H 01/09/18 10:42 Pulse Ox 84 L 01/09/18 08:37 - Labs Result Diagrams: 01/08/18 06:28 01/08/18 06:28 Labs: Laboratory Results - last 24 hr 01/08/18 01/08/18 01/09/18 16:39 21:18 07:49 POC Glucose (mg/dL) 117 H 134 H 176 H 01/09/18 11:39 POC Glucose (mg/dL) 219 H - Imaging and Cardiology Chest x-ray Status: Report reviewed by me (01/08/18 - NAD) Assessment & Plan (1) Acute respiratory failure with hypoxia and hypercapnia Status: Acute (2) COPD (chronic obstructive pulmonary disease) Status: Acute (3) Leukocytosis Status: Acute (4) FESTUS (obstructive sleep apnea) Status: Acute - Assessment and Plan (Free Text) Plan: PLAN; CONTINUE IV CIPRO 400MG IVPB Q 12HRLY. F/U SPUTUM CULTURE IV SOLUMEDROL PER PULMONARY PULMONARY TOILET.
--- NOTE | 2018-01-09 17:34 | CP.PCM.PN ---
Subjective - Date & Time of Evaluation Date of Evaluation: 01/09/18 Time of Evaluation: 10:55 - Subjective Subjective: Patient seen and examined. Patient more interactive and able to answer questions about how she was feeling. Patient states she feels improved on BiPap and pCO2 continues to trend down. Will continue to monitor. 1. Hypercapnic Respiratory Acidosis CO2 retention likely secondary to obesity-induced hypoventilation. pCO2 = 72 today, down from 119 on 01/07. Continue BiPap. 2. COPD Continue Duoneb breathing treatments, Solu-medrol 40 mg IV q8 Objective - Vital Signs/Intake and Output Vital Signs (last 24 hours): Temp Pulse Resp BP Pulse Ox 98.2 F 89 20 167/87 H 97 01/09/18 17:10 01/09/18 17:10 01/09/18 17:10 01/09/18 17:18 01/09/18 17:10 - Medications Medications: Current Medications Albuterol/Ipratropium (Duoneb 3 Mg/0.5 Mg (3 Ml) Ud) 3 ml INH RQ6 [facility] Last Admin: 01/09/18 07:48 Dose: 3 ml Carvedilol (Coreg) 12.5 mg PO BID [facility] Last Admin: 01/09/18 17:18 Dose: 12.5 mg Clonidine HCl (Catapres) 0.1 mg PO BID [facility] Last Admin: 01/09/18 17:18 Dose: 0.1 mg Enoxaparin Sodium (Lovenox) 40 mg SC DAILY [facility] Last Admin: 01/09/18 10:43 Dose: 40 mg Famotidine (Pepcid) 20 mg PO DAILY [facility] Last Admin: 01/09/18 10:42 Dose: 20 mg Furosemide (Lasix) 40 mg IVP DAILY [facility] Last Admin: 01/09/18 10:42 Dose: 40 mg Ciprofloxacin (Cipro 400mg/200ml Dsw) 400 mg in 200 mls @ 133 mls/hr IVPB Q12H [facility] PRN Reason: Protocol Last Admin: 01/09/18 10:00 Dose: 133 mls/hr Insulin Human Regular (Novolin R) 0 unit SC ACHS [facility] PRN Reason: Protocol Last Admin: 01/09/18 17:02 Dose: Not Given Isosorbide Mononitrate (Imdur Er) 30 mg PO DAILY [facility] Last Admin: 01/09/18 10:42 Dose: 30 mg Ketorolac Tromethamine (Toradol) 30 mg IVP Q6 PRN PRN Reason: Pain, severe (8-10) Stop: 01/11/18 12:01 Last Admin: 01/09/18 10:54 Dose: 30 mg Levothyroxine Sodium (Synthroid) 150 mcg PO DAILY@0630 [facility] Last Admin: 01/09/18 06:53 Dose: 150 mcg Methylprednisolone (Solu-Medrol) 40 mg IV Q8H [facility] Last Admin: 01/09/18 13:50 Dose: 40 mg Montelukast Sodium (Singulair) 10 mg PO HS [facility] Last Admin: 01/08/18 21:58 Dose: 10 mg - Labs Labs: 01/08/18 06:28 01/08/18 06:28 PT 11.3 SECONDS (9.7-12.2) 01/07/18 15:50 INR 1.0 01/07/18 15:50 APTT 30 SECONDS (21-34) 01/07/18 15:50 Assessment and Plan (1) Acute respiratory failure with hypercapnia Status: Acute (2) COPD (chronic obstructive pulmonary disease) Status: Acute (3) FESTUS (obstructive sleep apnea) Status: Chronic
--- NOTE | 2018-01-09 21:13 | CP.PCM.PN ---
Subjective - Date & Time of Evaluation Date of Evaluation: 01/09/18 Time of Evaluation: 11:20 - Subjective Subjective: clinically same Objective - Vital Signs/Intake and Output Vital Signs (last 24 hours): Temp Pulse Resp BP Pulse Ox 98.2 F 89 20 167/87 H 97 01/09/18 17:10 01/09/18 17:10 01/09/18 17:10 01/09/18 17:18 01/09/18 17:10 - Medications Medications: Current Medications Albuterol/Ipratropium (Duoneb 3 Mg/0.5 Mg (3 Ml) Ud) 3 ml INH RQ6 [facility] Last Admin: 01/09/18 20:25 Dose: 3 ml Carvedilol (Coreg) 12.5 mg PO BID [facility] Last Admin: 01/09/18 17:18 Dose: 12.5 mg Clonidine HCl (Catapres) 0.1 mg PO BID [facility] Last Admin: 01/09/18 17:18 Dose: 0.1 mg Enoxaparin Sodium (Lovenox) 40 mg SC DAILY [facility] Last Admin: 01/09/18 10:43 Dose: 40 mg Famotidine (Pepcid) 20 mg PO DAILY [facility] Last Admin: 01/09/18 10:42 Dose: 20 mg Furosemide (Lasix) 40 mg IVP DAILY [facility] Last Admin: 01/09/18 10:42 Dose: 40 mg Ciprofloxacin (Cipro 400mg/200ml Dsw) 400 mg in 200 mls @ 133 mls/hr IVPB Q12H [facility] PRN Reason: Protocol Last Admin: 01/09/18 10:00 Dose: 133 mls/hr Insulin Human Regular (Novolin R) 0 unit SC ACHS [facility] PRN Reason: Protocol Last Admin: 01/09/18 17:02 Dose: Not Given Isosorbide Mononitrate (Imdur Er) 30 mg PO DAILY [facility] Last Admin: 01/09/18 10:42 Dose: 30 mg Ketorolac Tromethamine (Toradol) 30 mg IVP Q6 PRN PRN Reason: Pain, severe (8-10) Stop: 01/11/18 12:01 Last Admin: 01/09/18 10:54 Dose: 30 mg Levothyroxine Sodium (Synthroid) 150 mcg PO DAILY@0630 [facility] Last Admin: 05/24/18 06:53 Dose: 150 mcg Methylprednisolone (Solu-Medrol) 40 mg IV Q8H [facility] Last Admin: 01/09/18 13:50 Dose: 40 mg Montelukast Sodium (Singulair) 10 mg PO HS [facility] Last Admin: 01/08/18 21:58 Dose: 10 mg - Labs Labs: 01/08/18 06:28 01/08/18 06:28 PT 11.3 SECONDS (9.7-12.2) 01/07/18 15:50 INR 1.0 01/07/18 15:50 APTT 30 SECONDS (21-34) 01/07/18 15:50 - Constitutional Appears: Well - Head Exam Head Exam: ATRAUMATIC, NORMAL INSPECTION, NORMOCEPHALIC - Eye Exam Eye Exam: EOMI, Normal appearance, PERRL Pupil Exam: NORMAL ACCOMODATION, PERRL - ENT Exam ENT Exam: Mucous Membranes Moist, Normal Exam - Neck Exam Neck Exam: Full ROM, Normal Inspection. absent: Lymphadenopathy - Respiratory Exam Respiratory Exam: Decreased Breath Sounds - Cardiovascular Exam Cardiovascular Exam: REGULAR RHYTHM, +S1, +S2 - GI/Abdominal Exam GI & Abdominal Exam: Soft, Diminished Bowel Sounds - Rectal Exam Rectal Exam: Deferred
[2018-01-10] MEDS: Albuterol-Ipratrop 3 mg / 0.5 (3 ml) UD INH SCH ×4 (01:56→19:13)
[2018-01-10] MEDS: MethylPREDNISolone 40 mg Vial IV SCH ×3 (05:41→21:58)
[2018-01-10] MEDS: Levothyroxine 150 MCG TAB PO SCH (05:41)
[2018-01-10] MEDS: (Novolin R) Insulin Human Regular 100 units/ml vial SC SCH ×4 (08:01→21:57)
[2018-01-10] MEDS: Ciprofloxacin 400mg/200ml D5W 400 MG/200 ML BAG IVPB SCH ×2 (10:12→21:58)
[2018-01-10] MEDS: Enoxaparin 40 mg Syringe SC SCH (10:14)
--- NOTE | 2018-01-10 10:52 | CP.PCM.PN ---
Subjective - Date & Time of Evaluation Date of Evaluation: 01/10/18 Time of Evaluation: 07:20 - Subjective Subjective: The patient seen and examined Patient remains on BiPAP Awake and responsive Good appetite Objective - Vital Signs/Intake and Output Vital Signs (last 24 hours): Temp Pulse Resp BP Pulse Ox 98.5 F 65 20 139/70 98 01/10/18 08:45 01/10/18 08:45 01/10/18 08:45 01/10/18 10:14 01/10/18 08:45 Intake and Output: 01/10/18 01/10/18 06:59 18:59 Intake Total 710 Balance 710 - Medications Medications: Current Medications Albuterol/Ipratropium (Duoneb 3 Mg/0.5 Mg (3 Ml) Ud) 3 ml INH RQ6 [facility] Last Admin: 01/10/18 08:34 Dose: 3 ml Carvedilol (Coreg) 12.5 mg PO BID [facility] Last Admin: 01/10/18 10:14 Dose: 12.5 mg Clonidine HCl (Catapres) 0.1 mg PO BID [facility] Last Admin: 01/10/18 10:12 Dose: 0.1 mg Enoxaparin Sodium (Lovenox) 40 mg SC DAILY [facility] Last Admin: 01/10/18 10:14 Dose: 40 mg Famotidine (Pepcid) 20 mg PO DAILY [facility] Last Admin: 01/10/18 10:12 Dose: 20 mg Furosemide (Lasix) 40 mg IVP DAILY [facility] Last Admin: 01/10/18 10:14 Dose: 40 mg Ciprofloxacin (Cipro 400mg/200ml Dsw) 400 mg in 200 mls @ 133 mls/hr IVPB Q12H [facility] PRN Reason: Protocol Last Admin: 01/10/18 10:12 Dose: 133 mls/hr Insulin Human Regular (Novolin R) 0 unit SC ACHS [facility] PRN Reason: Protocol Last Admin: 01/10/18 08:01 Dose: Not Given Isosorbide Mononitrate (Imdur Er) 30 mg PO DAILY [facility] Last Admin: 01/10/18 10:12 Dose: 30 mg Ketorolac Tromethamine (Toradol) 30 mg IVP Q6 PRN PRN Reason: Pain, severe (8-10) Stop: 01/11/18 12:01 Last Admin: 01/09/18 10:54 Dose: 30 mg Levothyroxine Sodium (Synthroid) 150 mcg PO DAILY@0630 [facility] Last Admin: 01/10/18 05:41 Dose: 150 mcg Methylprednisolone (Solu-Medrol) 40 mg IV Q8H [facility] Last Admin: 01/10/18 05:41 Dose: 40 mg Montelukast Sodium (Singulair) 10 mg PO HS [facility] Last Admin: 01/09/18 22:20 Dose: 10 mg - Labs Labs: 01/08/18 06:28 01/08/18 06:28 PT 11.3 SECONDS (9.7-12.2) 01/07/18 15:50 INR 1.0 01/07/18 15:50 APTT 30 SECONDS (21-34) 01/07/18 15:50 - Head Exam Head Exam: ATRAUMATIC, NORMOCEPHALIC - ENT Exam ENT Exam: Mucous Membranes Moist - Respiratory Exam Respiratory Exam: Decreased Breath Sounds - Cardiovascular Exam Cardiovascular Exam: REGULAR RHYTHM - GI/Abdominal Exam GI & Abdominal Exam: Soft, Normal Bowel Sounds - Extremities Exam Extremities Exam: Pedal Edema - Neurological Exam Neurological Exam: Awake Assessment and Plan (1) Acute respiratory failure with hypercapnia Assessment & Plan: Continue BiPAP as needed And at night Taper steroids Continue nebulizer treatment Continue Lasix Status: Acute (2) COPD (chronic obstructive pulmonary disease) Status: Acute (3) FESTUS (obstructive sleep apnea) Status: Chronic
--- NOTE | 2018-01-10 17:43 | CARD ---
APPROVED REPORT EXAM: Two-dimensional and M-mode echocardiogram with Doppler and color Doppler. Other Information Quality : TDSRhythm : INDICATION Dyspnea Chest Pain COPD RISK FACTORS Hypertension Diabetes 2D DIMENSIONS IVSd1.3 (0.7-1.1cm)LVDd4.4 (3.9-5.9cm) PWd1.3 (0.7-1.1cm)LVDs2.7 (2.5-4.0cm) FS (%) 39.1 %LVEF (%)69.8 (>50%) M-Mode DIMENSIONS Left Atrium (MM)3.75 (2.5-4.0cm)Aortic Root3.63 (2.2-3.7cm) Aortic Cusp Exc.2.65 (1.5-2.0cm) Mitral Valve MV E Ggmfzsus12.8cm/sMV A Hyhousnm63.8cm/s Tricuspid Valve TR Peak Pssazldt694hl/sTR Peak Gr.[id number] LEFT VENTRICLE The left ventricle is normal size. There is normal left ventricular wall thickness. The left ventricular function is normal. The left ventricular ejection fraction is within the normal range. There is normal LV segmental wall motion. Transmitral Doppler flow pattern is abnormal. RIGHT VENTRICLE The right ventricle is normal size. ATRIA The left atrium size is normal. The right atrium size is normal. AORTIC VALVE The aortic valve is normal in structure. MITRAL VALVE The mitral valve is normal in structure. TRICUSPID VALVE There is trace tricuspid regurgitation. <Conclusion> Technically difficult study. Normal LV systolic function. Diastolic dysfunction. Normal chamber size. Trace TR.
--- NOTE | 2018-01-10 18:20 | CP.PCM.PN ---
Subjective - Date & Time of Evaluation Date of Evaluation: 01/10/18 Time of Evaluation: 12:20 - Subjective Subjective: clinically same Objective - Vital Signs/Intake and Output Vital Signs (last 24 hours): Temp Pulse Resp BP Pulse Ox 99.1 F 64 20 159/81 H 99 01/10/18 15:25 01/10/18 15:25 01/10/18 15:25 01/10/18 17:45 01/10/18 15:25 Intake and Output: 01/10/18 01/10/18 06:59 18:59 Intake Total 710 Balance 710 - Medications Medications: Current Medications Albuterol/Ipratropium (Duoneb 3 Mg/0.5 Mg (3 Ml) Ud) 3 ml INH RQ6 [facility] Last Admin: 01/10/18 13:21 Dose: 3 ml Carvedilol (Coreg) 12.5 mg PO BID [facility] Last Admin: 01/10/18 17:45 Dose: 12.5 mg Clonidine HCl (Catapres) 0.1 mg PO BID [facility] Last Admin: 01/10/18 17:45 Dose: 0.1 mg Enoxaparin Sodium (Lovenox) 40 mg SC DAILY [facility] Last Admin: 01/10/18 10:14 Dose: 40 mg Famotidine (Pepcid) 20 mg PO DAILY [facility] Last Admin: 01/10/18 10:12 Dose: 20 mg Furosemide (Lasix) 40 mg IVP DAILY [facility] Last Admin: 01/10/18 10:14 Dose: 40 mg Ciprofloxacin (Cipro 400mg/200ml Dsw) 400 mg in 200 mls @ 133 mls/hr IVPB Q12H [facility] PRN Reason: Protocol Last Admin: 01/10/18 10:12 Dose: 133 mls/hr Insulin Human Regular (Novolin R) 0 unit SC ACHS [facility] PRN Reason: Protocol Last Admin: 01/10/18 17:41 Dose: 2 unit Isosorbide Mononitrate (Imdur Er) 30 mg PO DAILY [facility] Last Admin: 01/10/18 10:12 Dose: 30 mg Levothyroxine Sodium (Synthroid) 150 mcg PO DAILY@0630 [facility] Last Admin: 01/10/18 05:41 Dose: 150 mcg Methylprednisolone (Solu-Medrol) 40 mg IV Q8H [facility] Last Admin: 01/10/18 13:54 Dose: 40 mg Montelukast Sodium (Singulair) 10 mg PO HS [facility] Last Admin: 01/09/18 22:20 Dose: 10 mg - Labs Labs: 01/08/18 06:28 01/08/18 06:28 PT 11.3 SECONDS (9.7-12.2) 01/07/18 15:50 INR 1.0 01/07/18 15:50 APTT 30 SECONDS (21-34) 01/07/18 15:50 - Constitutional Appears: Well - Head Exam Head Exam: ATRAUMATIC, NORMAL INSPECTION, NORMOCEPHALIC - Eye Exam Eye Exam: EOMI, Normal appearance, PERRL Pupil Exam: NORMAL ACCOMODATION, PERRL - ENT Exam ENT Exam: Mucous Membranes Moist, Normal Exam - Neck Exam Neck Exam: Full ROM, Normal Inspection. absent: Lymphadenopathy - Respiratory Exam Respiratory Exam: Decreased Breath Sounds - Cardiovascular Exam Cardiovascular Exam: REGULAR RHYTHM, +S1, +S2 - GI/Abdominal Exam GI & Abdominal Exam: Soft, Diminished Bowel Sounds - Rectal Exam Rectal Exam: Deferred
[2018-01-11] MEDS: Albuterol-Ipratrop 3 mg / 0.5 (3 ml) UD INH SCH ×4 (01:27→19:42)
[2018-01-11] MEDS: MethylPREDNISolone 40 mg Vial IV SCH (06:14)
[2018-01-11] MEDS: Levothyroxine 150 MCG TAB PO SCH (06:15)
[2018-01-11 06:59] LABS: BASO % 0.4 % (0.0-2.0); HEMOGLOBIN 11.6 g/dL (11.0-16.0); LYMPH # 1.2 K/uL (1.0-4.3); LYMPH % 17.9 % (20.0-40.0); MEAN CELL VOLUME 85.9 fL (81.0-99.0); MEAN CORPUSCULAR HEMOGLOBIN 27.8 pg (27.0-31.0); MEAN CORPUSCULAR HGB CONC 32.3 g/dL (33.0-37.0); MEAN PLATELET VOLUME 9.3 fL (7.2-11.7); MONO # 0.4 K/uL (0.0-0.8); MONO % 6.5 % (0.0-10.0); NEUT # 5.1 K/uL (1.8-7.0); NEUT % 75.2 % (50.0-75.0); RBC 4.19 Mil/uL (3.80-5.20); RED CELL DISTRIBUTION WIDTH 14.7 % (11.5-14.5); WHITE BLOOD COUNT 6.7 K/uL (4.8-10.8)
[2018-01-11 07:35] LABS: BLOOD UREA NITROGEN 39 mg/dL (7-17); GFR AFRICAN-AMERICAN > 60; GFR NON-AFRICAN AMERICAN > 60
[2018-01-11 07:53] LABS: CALCIUM 6.7 mg/dl (8.6-10.4)
[2018-01-11] MEDS: (Novolin R) Insulin Human Regular 100 units/ml vial SC SCH ×4 (08:30→22:40)
--- NOTE | 2018-01-11 11:42 | CP.PCM.PN ---
Subjective - Date & Time of Evaluation Date of Evaluation: 01/11/18 Time of Evaluation: 11:40 - Subjective Subjective: The patient was Seen/interviewed and examined by me at the bedside, Medical records reviewed and Management issues were discussed and formulated with the house staff. Events reviewe, Less dyspnea Remains on BIPAP No chest pain overnight. Afebrile, NSR on the monitor, AM Labs reviewed, No Leucocytosis Objective - Vital Signs/Intake and Output Vital Signs (last 24 hours): Temp Pulse Resp BP Pulse Ox 97.6 F 60 18 157/86 H 99 01/11/18 07:00 01/11/18 08:17 01/11/18 07:00 01/11/18 07:00 01/11/18 07:00 Intake and Output: 01/11/18 01/11/18 06:59 18:59 Intake Total 250 Output Total 1150 Balance -900 - Medications Medications: Current Medications Albuterol/Ipratropium (Duoneb 3 Mg/0.5 Mg (3 Ml) Ud) 3 ml INH RQ6 [facility] Last Admin: 01/11/18 08:15 Dose: 3 ml Carvedilol (Coreg) 12.5 mg PO BID [facility] Last Admin: 01/10/18 17:45 Dose: 12.5 mg Clonidine HCl (Catapres) 0.1 mg PO BID [facility] Last Admin: 01/10/18 17:45 Dose: 0.1 mg Enoxaparin Sodium (Lovenox) 40 mg SC DAILY [facility] Last Admin: 01/10/18 10:14 Dose: 40 mg Famotidine (Pepcid) 20 mg PO DAILY [facility] Last Admin: 01/10/18 10:12 Dose: 20 mg Furosemide (Lasix) 40 mg IVP DAILY [facility] Last Admin: 01/10/18 10:14 Dose: 40 mg Insulin Human Regular (Novolin R) 0 unit SC ACHS [facility] PRN Reason: Protocol Last Admin: 01/10/18 21:57 Dose: Not Given Isosorbide Mononitrate (Imdur Er) 30 mg PO DAILY [facility] Last Admin: 01/10/18 10:12 Dose: 30 mg Levothyroxine Sodium (Synthroid) 150 mcg PO DAILY@0630 [facility] Last Admin: 01/11/18 06:15 Dose: 150 mcg Methylprednisolone (Solu-Medrol) 40 mg IV Q8H [facility] Last Admin: 01/11/18 06:14 Dose: 40 mg Montelukast Sodium (Singulair) 10 mg PO HS [facility] Last Admin: 01/10/18 21:58 Dose: 10 mg - Labs Labs: 01/11/18 06:48 01/11/18 06:48 PT 11.3 SECONDS (9.7-12.2) 01/07/18 15:50 INR 1.0 01/07/18 15:50 APTT 30 SECONDS (21-34) 01/07/18 15:50 - Head Exam Head Exam: ATRAUMATIC, NORMAL INSPECTION - Eye Exam Eye Exam: EOMI. absent: Conjunctival injection - ENT Exam ENT Exam: Mucous Membranes Moist - Neck Exam Neck Exam: Full ROM, Normal Inspection. absent: Lymphadenopathy, Tenderness, Thyromegaly - Respiratory Exam Respiratory Exam: Prolonged Expiratory Phase, Wheezes. absent: Accessory Muscle Use, Chest Wall Tenderness - Cardiovascular Exam Cardiovascular Exam: REGULAR RHYTHM, +S1, +S2. absent: Bradycardia, Tachycardia , JVD, RRR - GI/Abdominal Exam GI & Abdominal Exam: Soft, Normal Bowel Sounds. absent: Distended, Firm, Guarding, Rigid - Extremities Exam Extremities Exam: Full ROM, Normal Capillary Refill, Normal Inspection. absent : Joint Swelling, Pedal Edema, Tenderness - Neurological Exam Neurological Exam: Alert Assessment and Plan (1) Acute respiratory failure with hypoxia and hypercapnia Status: Acute (2) COPD (chronic obstructive pulmonary disease) Status: Acute (3) FESTUS (obstructive sleep apnea) Status: Acute - Assessment and Plan (Free Text) Assessment: Continue BiPAP as needed And at night Taper steroids Continue nebulizer treatment Continue Lasix
[2018-01-11] MEDS: Enoxaparin 40 mg Syringe SC SCH (12:59)
--- NOTE | 2018-01-11 15:46 | CP.PCM.PN ---
Subjective - Date & Time of Evaluation Date of Evaluation: 01/11/18 Time of Evaluation: 10:20 - Subjective Subjective: clinically same Objective - Vital Signs/Intake and Output Vital Signs (last 24 hours): Temp Pulse Resp BP Pulse Ox 97.6 F 60 18 140/72 99 01/11/18 07:00 01/11/18 08:17 01/11/18 07:00 01/11/18 13:01 01/11/18 07:00 Intake and Output: 01/11/18 01/11/18 06:59 18:59 Intake Total 250 Output Total 1150 Balance -900 - Medications Medications: Current Medications Albuterol/Ipratropium (Duoneb 3 Mg/0.5 Mg (3 Ml) Ud) 3 ml INH RQ6 [facility] Last Admin: 01/11/18 13:16 Dose: 3 ml Carvedilol (Coreg) 12.5 mg PO BID [facility] Last Admin: 01/11/18 12:59 Dose: 12.5 mg Clonidine HCl (Catapres) 0.1 mg PO BID [facility] Last Admin: 01/11/18 13:00 Dose: 0.1 mg Enoxaparin Sodium (Lovenox) 40 mg SC DAILY [facility] Last Admin: 01/11/18 12:59 Dose: 40 mg Famotidine (Pepcid) 20 mg PO DAILY [facility] Last Admin: 01/11/18 13:00 Dose: 20 mg Furosemide (Lasix) 40 mg IVP DAILY [facility] Last Admin: 01/11/18 13:01 Dose: 40 mg Insulin Human Regular (Novolin R) 0 unit SC ACHS [facility] PRN Reason: Protocol Last Admin: 01/11/18 14:32 Dose: 3 unit Isosorbide Mononitrate (Imdur Er) 30 mg PO DAILY [facility] Last Admin: 01/11/18 13:04 Dose: 30 mg Levothyroxine Sodium (Synthroid) 150 mcg PO DAILY@0630 [facility] Last Admin: 01/11/18 06:15 Dose: 150 mcg Methylprednisolone (Solu-Medrol) 40 mg IV Q8H [facility] Last Admin: 01/11/18 06:14 Dose: 40 mg Montelukast Sodium (Singulair) 10 mg PO HS [facility] Last Admin: 01/10/18 21:58 Dose: 10 mg Tramadol HCl (Ultram) 50 mg PO Q6H PRN PRN Reason: MODERATE PAIN Last Admin: 01/11/18 12:59 Dose: 50 mg - Labs Labs: 01/11/18 06:48 01/11/18 06:48 PT 11.3 SECONDS (9.7-12.2) 01/07/18 15:50 INR 1.0 01/07/18 15:50 APTT 30 SECONDS (21-34) 01/07/18 15:50 - Constitutional Appears: Well - Head Exam Head Exam: ATRAUMATIC, NORMAL INSPECTION, NORMOCEPHALIC - Eye Exam Eye Exam: EOMI, Normal appearance, PERRL Pupil Exam: NORMAL ACCOMODATION, PERRL - ENT Exam ENT Exam: Mucous Membranes Moist, Normal Exam - Neck Exam Neck Exam: Full ROM, Normal Inspection. absent: Lymphadenopathy - Respiratory Exam Respiratory Exam: Decreased Breath Sounds - Cardiovascular Exam Cardiovascular Exam: REGULAR RHYTHM, +S1, +S2 - GI/Abdominal Exam GI & Abdominal Exam: Soft, Diminished Bowel Sounds - Rectal Exam Rectal Exam: Deferred
[2018-01-11] MEDS ORDERED: MethylPREDNISolone 40 mg Vial IVP ONE ×2 (20:00→22:30)
--- NOTE | 2018-01-11 20:00 | CP.PCM.PN ---
Subjective - Date & Time of Evaluation Date of Evaluation: 01/11/18 Time of Evaluation: 20:00 - Subjective Subjective: AFEBRILE,TMAX 99.1 OFF BIPAP. ON NASAL CANULA. +VE SECRETIONS. ON ABX. Objective - Vital Signs/Intake and Output Vital Signs (last 24 hours): Temp Pulse Resp BP Pulse Ox 99.1 F 70 20 142/74 98 01/11/18 15:26 01/11/18 15:26 01/11/18 15:26 01/11/18 18:24 01/11/18 15:26 - Medications Medications: Current Medications Albuterol/Ipratropium (Duoneb 3 Mg/0.5 Mg (3 Ml) Ud) 3 ml INH RQ6 [facility] Last Admin: 01/11/18 19:42 Dose: 3 ml Carvedilol (Coreg) 12.5 mg PO BID [facility] Last Admin: 01/11/18 18:24 Dose: 12.5 mg Clonidine HCl (Catapres) 0.1 mg PO BID [facility] Last Admin: 01/11/18 18:24 Dose: 0.1 mg Enoxaparin Sodium (Lovenox) 40 mg SC DAILY [facility] Last Admin: 01/11/18 12:59 Dose: 40 mg Famotidine (Pepcid) 20 mg PO DAILY [facility] Last Admin: 01/11/18 13:00 Dose: 20 mg Furosemide (Lasix) 40 mg IVP DAILY [facility] Last Admin: 01/11/18 13:01 Dose: 40 mg Insulin Human Regular (Novolin R) 0 unit SC ACHS [facility] PRN Reason: Protocol Last Admin: 01/11/18 18:24 Dose: 2 unit Isosorbide Mononitrate (Imdur Er) 30 mg PO DAILY [facility] Last Admin: 01/11/18 13:04 Dose: 30 mg Levothyroxine Sodium (Synthroid) 150 mcg PO DAILY@0630 [facility] Last Admin: 01/11/18 06:15 Dose: 150 mcg Methylprednisolone (Solu-Medrol) 40 mg IV Q12H [facility] Methylprednisolone (Solu-Medrol) 40 mg IVP ONCE ONE Stop: 01/11/18 20:01 Montelukast Sodium (Singulair) 10 mg PO HS [facility] Last Admin: 01/10/18 21:58 Dose: 10 mg Tramadol HCl (Ultram) 50 mg PO Q6H PRN PRN Reason: MODERATE PAIN Last Admin: 01/11/18 18:24 Dose: 50 mg - Labs Labs: 01/11/18 06:48 01/11/18 06:48 PT 11.3 SECONDS (9.7-12.2) 01/07/18 15:50 INR 1.0 01/07/18 15:50 APTT 30 SECONDS (21-34) 01/07/18 15:50 - Constitutional Appears: No Acute Distress - Head Exam Head Exam: NORMAL INSPECTION - Eye Exam Eye Exam: EOMI, PERRL - ENT Exam ENT Exam: Normal Oropharynx - Neck Exam Neck Exam: Normal Inspection - Respiratory Exam Respiratory Exam: Decreased Breath Sounds, Prolonged Expiratory Phase - Cardiovascular Exam Cardiovascular Exam: REGULAR RHYTHM, +S1, +S2 - GI/Abdominal Exam GI & Abdominal Exam: Soft, Normal Bowel Sounds. absent: Organomegaly - Extremities Exam Extremities Exam: Normal Capillary Refill, Pedal Edema. absent: Calf Tenderness , Tenderness - Neurological Exam Neurological Exam: Awake, CN II-XII Intact, Oriented x3 - Psychiatric Exam Psychiatric exam: Normal Mood - Skin Skin Exam: Normal Color, Warm Assessment and Plan (1) Acute respiratory failure with hypoxia and hypercapnia Status: Acute (2) COPD (chronic obstructive pulmonary disease) Status: Acute (3) Leukocytosis Assessment & Plan: IMPROVING. Status: Acute (4) FESTUS (obstructive sleep apnea) Status: Acute - Assessment and Plan (Free Text) Plan: CONTINUE IV CIPRO 400MG IVPB Q 12HRLY. F/U SPUTUM CULTURE IV SOLUMEDROL PER PULMONARY PULMONARY TOILET.
[2018-01-11] MEDS: Ciprofloxacin 400mg/200ml D5W 400 MG/200 ML BAG IVPB SCH (22:09)
[2018-01-11] MEDS ORDERED: Ciprofloxacin 400mg/200ml D5W 400 MG/200 ML BAG IVPB ONE (22:15)
[2018-01-11] MEDS ORDERED: Sod Polystyrene Sulf 15 gm/60 ml Susp PO ONE (22:52)
[2018-01-12] MEDS: Albuterol-Ipratrop 3 mg / 0.5 (3 ml) UD INH SCH ×4 (01:35→19:32)
[2018-01-12] MEDS: MethylPREDNISolone 40 mg Vial IV SCH ×2 (05:35→18:48)
[2018-01-12] MEDS: Levothyroxine 150 MCG TAB PO SCH (05:36)
[2018-01-12] MEDS: (Novolin R) Insulin Human Regular 100 units/ml vial SC SCH ×4 (08:28→23:00)
[2018-01-12] MEDS: Enoxaparin 40 mg Syringe SC SCH (10:57)
[2018-01-12 16:54] LABS: BLOOD UREA NITROGEN 40 mg/dL (7-17); CALCIUM 7.8 mg/dl (8.6-10.4); GFR AFRICAN-AMERICAN > 60; GFR NON-AFRICAN AMERICAN > 60
--- NOTE | 2018-01-12 18:11 | CP.PCM.PN ---
Subjective - Date & Time of Evaluation Date of Evaluation: 01/12/18 Time of Evaluation: 11:20 - Subjective Subjective: clinically same Objective - Vital Signs/Intake and Output Vital Signs (last 24 hours): Temp Pulse Resp BP Pulse Ox 98.7 F 62 20 132/85 98 01/12/18 15:30 01/12/18 15:30 01/12/18 15:30 01/12/18 15:30 01/12/18 15:30 Intake and Output: 01/12/18 01/12/18 06:59 18:59 Output Total 1200 Balance -1200 - Medications Medications: Current Medications Albuterol/Ipratropium (Duoneb 3 Mg/0.5 Mg (3 Ml) Ud) 3 ml INH RQ6 [facility] Last Admin: 01/12/18 13:25 Dose: 3 ml Carvedilol (Coreg) 12.5 mg PO BID [facility] Last Admin: 01/12/18 10:36 Dose: 12.5 mg Clonidine HCl (Catapres) 0.1 mg PO BID [facility] Last Admin: 01/12/18 10:36 Dose: 0.1 mg Enoxaparin Sodium (Lovenox) 40 mg SC DAILY [facility] Last Admin: 01/12/18 10:57 Dose: 40 mg Famotidine (Pepcid) 20 mg PO DAILY [facility] Last Admin: 01/12/18 10:36 Dose: 20 mg Furosemide (Lasix) 40 mg IVP DAILY [facility] Last Admin: 01/12/18 10:36 Dose: 40 mg Insulin Human Regular (Novolin R) 0 unit SC ACHS [facility] PRN Reason: Protocol Last Admin: 01/12/18 13:42 Dose: 3 unit Isosorbide Mononitrate (Imdur Er) 30 mg PO DAILY [facility] Last Admin: 01/12/18 10:36 Dose: 30 mg Levothyroxine Sodium (Synthroid) 150 mcg PO DAILY@0630 [facility] Last Admin: 01/12/18 05:36 Dose: 150 mcg Methylprednisolone (Solu-Medrol) 40 mg IV Q12H [facility] Last Admin: 01/12/18 05:35 Dose: 40 mg Montelukast Sodium (Singulair) 10 mg PO HS [facility] Last Admin: 01/11/18 22:40 Dose: 10 mg Tramadol HCl (Ultram) 50 mg PO Q6H PRN PRN Reason: MODERATE PAIN Last Admin: 01/12/18 05:40 Dose: 50 mg - Labs Labs: 01/11/18 06:48 01/12/18 16:20 PT 11.3 SECONDS (9.7-12.2) 01/07/18 15:50 INR 1.0 01/07/18 15:50 APTT 30 SECONDS (21-34) 01/07/18 15:50 - Constitutional Appears: Well - Head Exam Head Exam: ATRAUMATIC, NORMAL INSPECTION, NORMOCEPHALIC - Eye Exam Eye Exam: EOMI, Normal appearance, PERRL Pupil Exam: NORMAL ACCOMODATION, PERRL - ENT Exam ENT Exam: Mucous Membranes Moist, Normal Exam - Neck Exam Neck Exam: Full ROM, Normal Inspection. absent: Lymphadenopathy - Respiratory Exam Respiratory Exam: Decreased Breath Sounds - Cardiovascular Exam Cardiovascular Exam: REGULAR RHYTHM, +S1, +S2 - GI/Abdominal Exam GI & Abdominal Exam: Soft, Diminished Bowel Sounds - Rectal Exam Rectal Exam: Deferred Assessment and Plan (1) Acute respiratory failure with hypoxia and hypercapnia Status: Acute (2) Acute respiratory acidosis Status: Acute (3) Acute respiratory failure with hypercapnia Status: Acute (4) Anemia Status: Acute (5) Arthritis Status: Acute (6) Breast mass Status: Acute (7) COPD (chronic obstructive pulmonary disease) Status: Acute (8) Chest pain Status: Acute (9) Cough Status: Acute (10) Depression Status: Acute (11) Hypercapnic acidosis Status: Acute (12) Hypercarbia Status: Acute (13) Hyponatremia Status: Acute (14) Lethargic Status: Acute (15) Leukocytosis Status: Acute (16) FESTUS (obstructive sleep apnea) Status: Acute (17) Pain of breast Status: Acute (18) Preoperative cardiovascular examination Status: Acute (19) Prophylactic measure Status: Acute (20) Respiratory failure Status: Acute (21) Urinary tract infection Status: Acute (22) COPD (chronic obstructive pulmonary disease) Status: Chronic (23) Diabetes Status: Chronic (24) HTN (hypertension) Status: Chronic (25) Hypothyroidism Status: Chronic (26) FESTUS (obstructive sleep apnea) Status: Chronic (27) Parkinsons Status: Chronic
--- NOTE | 2018-01-12 21:19 | CP.PCM.PN ---
Subjective - Date & Time of Evaluation Date of Evaluation: 01/12/18 Time of Evaluation: 21:18 - Subjective Subjective: The patient was Seen/interviewed and examined by me at the bedside, Medical records reviewed and Management issues were discussed and formulated with the house staff. Events reviewe, Less dyspnea Remains on BIPAP Afebrile, Less Dyspnea, No chest pain NSR on the monitor, AM Labs reviewed, No Leucocytosis Objective - Vital Signs/Intake and Output Vital Signs (last 24 hours): Temp Pulse Resp BP Pulse Ox 98.7 F 62 20 132/85 98 01/12/18 15:30 01/12/18 15:30 01/12/18 15:30 01/12/18 15:30 01/12/18 15:30 - Medications Medications: Current Medications Albuterol/Ipratropium (Duoneb 3 Mg/0.5 Mg (3 Ml) Ud) 3 ml INH RQ6 [facility] Last Admin: 01/12/18 19:32 Dose: 3 ml Carvedilol (Coreg) 12.5 mg PO BID [facility] Last Admin: 01/12/18 10:36 Dose: 12.5 mg Clonidine HCl (Catapres) 0.1 mg PO BID [facility] Last Admin: 01/12/18 18:45 Dose: 0.1 mg Enoxaparin Sodium (Lovenox) 40 mg SC DAILY [facility] Last Admin: 01/12/18 10:57 Dose: 40 mg Famotidine (Pepcid) 20 mg PO DAILY [facility] Last Admin: 01/12/18 10:36 Dose: 20 mg Furosemide (Lasix) 40 mg IVP DAILY [facility] Last Admin: 01/12/18 10:36 Dose: 40 mg Insulin Human Regular (Novolin R) 0 unit SC [facility] PRN Reason: Protocol Last Admin: 01/12/18 17:30 Dose: Not Given Isosorbide Mononitrate (Imdur Er) 30 mg PO DAILY [facility] Last Admin: 01/12/18 10:36 Dose: 30 mg Levothyroxine Sodium (Synthroid) 150 mcg PO DAILY@0630 [facility] Last Admin: 01/12/18 05:36 Dose: 150 mcg Methylprednisolone (Solu-Medrol) 40 mg IV Q12H [facility] Last Admin: 01/12/18 18:48 Dose: 40 mg Montelukast Sodium (Singulair) 10 mg PO HS [facility] Last Admin: 01/11/18 22:40 Dose: 10 mg Tramadol HCl (Ultram) 50 mg PO Q6H PRN PRN Reason: MODERATE PAIN Last Admin: 01/12/18 05:40 Dose: 50 mg - Labs Labs: 01/11/18 06:48 01/12/18 16:20 PT 11.3 SECONDS (9.7-12.2) 01/07/18 15:50 INR 1.0 01/07/18 15:50 APTT 30 SECONDS (21-34) 01/07/18 15:50 - Constitutional Appears: Well, Non-toxic, No Acute Distress - Eye Exam Eye Exam: EOMI, Normal appearance. absent: Conjunctival injection - Neck Exam Neck Exam: Full ROM, Normal Inspection - Respiratory Exam Respiratory Exam: Clear to Ausculation Bilateral, Prolonged Expiratory Phase, Rhonchi. absent: Accessory Muscle Use, Chest Wall Tenderness, Decreased Breath Sounds, Rales, Wheezes, Respiratory Distress - Cardiovascular Exam Cardiovascular Exam: absent: Bradycardia, Tachycardia - GI/Abdominal Exam GI & Abdominal Exam: Soft, Normal Bowel Sounds. absent: Distended, Firm, Guarding, Rigid - Back Exam Back Exam: absent: CVA tenderness (L), CVA tenderness (R) - Neurological Exam Neurological Exam: Alert, Awake Assessment and Plan (1) Acute respiratory failure with hypoxia and hypercapnia Status: Acute (2) COPD (chronic obstructive pulmonary disease) Status: Acute (3) FESTUS (obstructive sleep apnea) Status: Acute - Assessment and Plan (Free Text) Assessment: Supplemental oxygen Wean off BiPAP, only at night Taper steroids Continue nebulizer treatment, Albuterol/Ipratropium (Duoneb 3 Mg/0.5 Mg (3 Ml) Ud) 3 ml INH RQ6 Continue Singulair 10 mg PO HS Continue IV Lasix Strict I&O, daily Wt
[2018-01-13 00:18] LABS: CK-MB 0.38 ng/mL (0.0-3.38)
[2018-01-13] MEDS: Albuterol-Ipratrop 3 mg / 0.5 (3 ml) UD INH SCH ×3 (02:22→13:28)
[2018-01-13] MEDS: MethylPREDNISolone 40 mg Vial IV SCH ×2 (06:06→17:24)
[2018-01-13] MEDS: Levothyroxine 150 MCG TAB PO SCH (06:07)
[2018-01-13] MEDS: (Novolin R) Insulin Human Regular 100 units/ml vial SC SCH ×4 (08:00→21:06)
--- NOTE | 2018-01-13 08:32 | RAD ---
HISTORY: chest pain COMPARISON: Portable chest radiographs 01/08/2018. FINDINGS: LUNGS: No infiltrate is suspected however a obese body habitus obscures imaging through the left base. Right hemidiaphragm is quite elevated from an indeterminate etiology. PLEURA: No significant pleural effusion identified, no pneumothorax apparent. CARDIOVASCULAR: Cardiomegaly is reiterated with mild pulmonary vascular congestion. OSSEOUS STRUCTURES: No significant abnormalities. VISUALIZED UPPER ABDOMEN: Normal. OTHER FINDINGS: None. IMPRESSION: Mild pulmonary vascular congestion. No prominent infiltrate appear right diaphragm elevation noted with increased. Etiology uncertain. Obese body habitus obscures evaluation left base.
[2018-01-13] MEDS: Enoxaparin 40 mg Syringe SC SCH (09:31)
--- NOTE | 2018-01-13 12:15 | CP.PCM.PN ---
Subjective - Date & Time of Evaluation Date of Evaluation: 01/13/18 Time of Evaluation: 08:30 - Subjective Subjective: the patient seen and examined Patient is off BiPAP and appears comfortable Fluid appetite Complaining of epigastric discomfort Afebrile Objective - Vital Signs/Intake and Output Vital Signs (last 24 hours): Temp Pulse Resp BP Pulse Ox 98.6 F 56 L 20 150/60 99 01/13/18 07:55 01/13/18 07:55 01/13/18 07:55 01/13/18 09:32 01/13/18 07:55 Intake and Output: 01/13/18 01/13/18 06:59 18:59 Intake Total 350 Output Total 1400 Balance -1050 - Medications Medications: Current Medications Albuterol/Ipratropium (Duoneb 3 Mg/0.5 Mg (3 Ml) Ud) 3 ml INH RQ6 [facility] Last Admin: 01/13/18 07:23 Dose: 3 ml Carvedilol (Coreg) 12.5 mg PO BID [facility] Last Admin: 01/13/18 09:31 Dose: 12.5 mg Clonidine HCl (Catapres) 0.1 mg PO BID [facility] Last Admin: 01/13/18 09:31 Dose: 0.1 mg Enoxaparin Sodium (Lovenox) 40 mg SC DAILY [facility] Last Admin: 01/13/18 09:31 Dose: 40 mg Famotidine (Pepcid) 20 mg PO DAILY [facility] Last Admin: 01/13/18 09:31 Dose: 20 mg Furosemide (Lasix) 40 mg IVP DAILY [facility] Last Admin: 01/13/18 09:32 Dose: 40 mg Insulin Human Regular (Novolin R) 0 unit SC [facility] PRN Reason: Protocol Last Admin: 01/13/18 08:00 Dose: 2 unit Isosorbide Mononitrate (Imdur Er) 30 mg PO DAILY [facility] Last Admin: 01/13/18 09:31 Dose: 30 mg Levothyroxine Sodium (Synthroid) 150 mcg PO DAILY@0630 [facility] Last Admin: 01/13/18 06:07 Dose: 150 mcg Methylprednisolone (Solu-Medrol) 40 mg IV Q12H [facility] Last Admin: 01/13/18 06:06 Dose: 40 mg Montelukast Sodium (Singulair) 10 mg PO HS [facility] Last Admin: 01/12/18 23:00 Dose: 10 mg Tramadol HCl (Ultram) 50 mg PO Q6H PRN PRN Reason: MODERATE PAIN Last Admin: 01/13/18 10:03 Dose: 50 mg - Labs Labs: 01/11/18 06:48 01/12/18 16:20 PT 11.3 SECONDS (9.7-12.2) 01/07/18 15:50 INR 1.0 01/07/18 15:50 APTT 30 SECONDS (21-34) 01/07/18 15:50 Assessment and Plan (1) Acute respiratory failure with hypercapnia Assessment & Plan: Continue BiPAP at night and as needed Nebulizer treatment Steroids Continue diuretics Status: Acute (2) COPD (chronic obstructive pulmonary disease) Status: Acute (3) FESTUS (obstructive sleep apnea) Status: Chronic
--- NOTE | 2018-01-13 14:24 | CP.PCM.PN ---
Subjective - Date & Time of Evaluation Date of Evaluation: 01/13/18 Time of Evaluation: 11:20 - Subjective Subjective: clinically same Objective - Vital Signs/Intake and Output Vital Signs (last 24 hours): Temp Pulse Resp BP Pulse Ox 98.6 F 56 L 20 150/60 99 01/13/18 07:55 01/13/18 07:55 01/13/18 07:55 01/13/18 09:32 01/13/18 07:55 Intake and Output: 01/13/18 01/13/18 06:59 18:59 Intake Total 350 Output Total 1400 Balance -1050 - Medications Medications: Current Medications Albuterol/Ipratropium (Duoneb 3 Mg/0.5 Mg (3 Ml) Ud) 3 ml INH RQ6 [facility] Last Admin: 01/13/18 13:28 Dose: 3 ml Carvedilol (Coreg) 12.5 mg PO BID [facility] Last Admin: 01/13/18 09:31 Dose: 12.5 mg Clonidine HCl (Catapres) 0.1 mg PO BID [facility] Last Admin: 01/13/18 09:31 Dose: 0.1 mg Enoxaparin Sodium (Lovenox) 40 mg SC DAILY [facility] Last Admin: 01/13/18 09:31 Dose: 40 mg Famotidine (Pepcid) 20 mg PO DAILY [facility] Last Admin: 01/13/18 09:31 Dose: 20 mg Furosemide (Lasix) 40 mg IVP DAILY [facility] Last Admin: 01/13/18 09:32 Dose: 40 mg Insulin Human Regular (Novolin R) 0 unit SC ACHS [facility] PRN Reason: Protocol Last Admin: 01/13/18 11:45 Dose: 3 unit Isosorbide Mononitrate (Imdur Er) 30 mg PO DAILY [facility] Last Admin: 01/13/18 09:31 Dose: 30 mg Levothyroxine Sodium (Synthroid) 150 mcg PO DAILY@0630 [facility] Last Admin: 01/13/18 06:07 Dose: 150 mcg Methylprednisolone (Solu-Medrol) 40 mg IV Q12H [facility] Last Admin: 01/13/18 06:06 Dose: 40 mg Montelukast Sodium (Singulair) 10 mg PO HS [facility] Last Admin: 01/12/18 23:00 Dose: 10 mg Tramadol HCl (Ultram) 50 mg PO Q6H PRN PRN Reason: MODERATE PAIN Last Admin: 01/13/18 10:03 Dose: 50 mg - Labs Labs: 01/11/18 06:48 01/12/18 16:20 PT 11.3 SECONDS (9.7-12.2) 01/07/18 15:50 INR 1.0 01/07/18 15:50 APTT 30 SECONDS (21-34) 01/07/18 15:50 - Constitutional Appears: Well - Head Exam Head Exam: ATRAUMATIC, NORMAL INSPECTION, NORMOCEPHALIC - Eye Exam Eye Exam: EOMI, Normal appearance, PERRL Pupil Exam: NORMAL ACCOMODATION, PERRL - ENT Exam ENT Exam: Mucous Membranes Moist, Normal Exam - Neck Exam Neck Exam: Full ROM, Normal Inspection. absent: Lymphadenopathy - Respiratory Exam Respiratory Exam: Decreased Breath Sounds - Cardiovascular Exam Cardiovascular Exam: REGULAR RHYTHM, +S1, +S2 - GI/Abdominal Exam GI & Abdominal Exam: Soft, Diminished Bowel Sounds - Rectal Exam Rectal Exam: Deferred Assessment and Plan (1) Acute respiratory failure with hypoxia and hypercapnia Status: Acute (2) Acute respiratory acidosis Status: Acute (3) Acute respiratory failure with hypercapnia Status: Acute (4) Anemia Status: Acute (5) Arthritis Status: Acute (6) Breast mass Status: Acute (7) COPD (chronic obstructive pulmonary disease) Status: Acute (8) Chest pain Status: Acute (9) Cough Status: Acute (10) Depression Status: Acute (11) Hypercapnic acidosis Status: Acute (12) Hypercarbia Status: Acute (13) Hyponatremia Status: Acute (14) Lethargic Status: Acute (15) Leukocytosis Status: Acute (16) FESTUS (obstructive sleep apnea) Status: Acute (17) Pain of breast Status: Acute (18) Preoperative cardiovascular examination Status: Acute (19) Prophylactic measure Status: Acute (20) Respiratory failure Status: Acute (21) Urinary tract infection Status: Acute (22) COPD (chronic obstructive pulmonary disease) Status: Chronic (23) Diabetes Status: Chronic (24) HTN (hypertension) Status: Chronic (25) Hypothyroidism Status: Chronic (26) FESTUS (obstructive sleep apnea) Status: Chronic (27) Parkinsons Status: Chronic
--- NOTE | 2018-01-13 18:05 | CP.PCM.PN ---
Subjective - Date & Time of Evaluation Date of Evaluation: 01/13/18 Time of Evaluation: 18:05 - Subjective Subjective: Afebrile, OFF BIPAP . Less Dyspnea, No chest pain Labs reviewed. BLOOD CULTURES -VE MRSA -VE SPUTUM CULTURE ? NOT OBTAINED CXR 01/12/18 REVIEWED mILD PERIPHERAL VASCULAR CONGESTION nO ACUTE INFILTRATE oBESE BODY HABITUS OBSCURES LEFT BASE eLEVATED RIGHT HEMIDIAPHRAGM Objective - Vital Signs/Intake and Output Vital Signs (last 24 hours): Temp Pulse Resp BP Pulse Ox 98.6 F 69 20 150/60 99 01/13/18 07:55 01/13/18 16:14 01/13/18 07:55 01/13/18 17:25 01/13/18 07:55 Intake and Output: 01/13/18 01/13/18 06:59 18:59 Intake Total 350 650 Output Total 1400 1300 Balance -1050 -650 - Medications Medications: Current Medications Carvedilol (Coreg) 12.5 mg PO BID [facility] Last Admin: 01/13/18 17:25 Dose: 12.5 mg Clonidine HCl (Catapres) 0.1 mg PO BID [facility] Last Admin: 01/13/18 17:25 Dose: 0.1 mg Enoxaparin Sodium (Lovenox) 40 mg SC DAILY [facility] Last Admin: 01/13/18 09:31 Dose: 40 mg Famotidine (Pepcid) 20 mg PO DAILY [facility] Last Admin: 01/13/18 09:31 Dose: 20 mg Furosemide (Lasix) 40 mg IVP DAILY [facility] Last Admin: 01/13/18 09:32 Dose: 40 mg Insulin Human Regular (Novolin R) 0 unit SC [facility] PRN Reason: Protocol Last Admin: 01/13/18 17:24 Dose: 1 unit Isosorbide Mononitrate (Imdur Er) 30 mg PO DAILY [facility] Last Admin: 01/13/18 09:31 Dose: 30 mg Levothyroxine Sodium (Synthroid) 150 mcg PO DAILY@0630 [facility] Last Admin: 01/13/18 06:07 Dose: 150 mcg Methylprednisolone (Solu-Medrol) 40 mg IV Q12H [facility] Last Admin: 01/13/18 17:24 Dose: 40 mg Montelukast Sodium (Singulair) 10 mg PO HS [facility] Last Admin: 01/12/18 23:00 Dose: 10 mg Tramadol HCl (Ultram) 50 mg PO Q6H PRN PRN Reason: MODERATE PAIN Last Admin: 01/13/18 10:03 Dose: 50 mg - Labs Labs: 01/11/18 06:48 01/12/18 16:20 PT 11.3 SECONDS (9.7-12.2) 01/07/18 15:50 INR 1.0 01/07/18 15:50 APTT 30 SECONDS (21-34) 01/07/18 15:50 - Constitutional Appears: No Acute Distress - Head Exam Head Exam: NORMAL INSPECTION - Eye Exam Eye Exam: EOMI, PERRL - ENT Exam ENT Exam: Normal Oropharynx - Neck Exam Neck Exam: Normal Inspection - Respiratory Exam Respiratory Exam: Prolonged Expiratory Phase - Cardiovascular Exam Cardiovascular Exam: REGULAR RHYTHM, +S1, +S2 - GI/Abdominal Exam GI & Abdominal Exam: Soft, Normal Bowel Sounds - Extremities Exam Extremities Exam: Normal Capillary Refill, Pedal Edema. absent: Calf Tenderness - Neurological Exam Neurological Exam: Alert, Awake, CN II-XII Intact, Oriented x3 - Psychiatric Exam Psychiatric exam: Normal Mood - Skin Skin Exam: Normal Color, Warm Assessment and Plan (1) Acute respiratory failure with hypoxia and hypercapnia Assessment & Plan: OFF BIPAP. CONTINUE IV CIPRO 400MG IVPB Q 12HRLY.01/08/18 FOR 4 MORE DAYS TO COMPLETE 10 DAYS CASE DISCUSSED W PMD DR Lor NARVAEZ PULMONARY TOILET PER PULMONARY. Status: Acute (2) COPD (chronic obstructive pulmonary disease) Status: Acute (3) Leukocytosis Status: Acute (4) FESTUS (obstructive sleep apnea) Status: Acute
[2018-01-13] MEDS: Ciprofloxacin 400mg/200ml D5W 400 MG/200 ML BAG IVPB SCH (19:39)
[2018-01-14] MEDS: MethylPREDNISolone 40 mg Vial IV SCH (06:53)
[2018-01-14] MEDS: Levothyroxine 150 MCG TAB PO SCH (06:55)
[2018-01-14] MEDS: Ciprofloxacin 400mg/200ml D5W 400 MG/200 ML BAG IVPB SCH (06:55)
[2018-01-14] MEDS: (Novolin R) Insulin Human Regular 100 units/ml vial SC SCH ×3 (08:31→17:20)
[2018-01-14] MEDS: Enoxaparin 40 mg Syringe SC SCH (10:10)
[2018-01-14 11:00] LABS: HEMOGLOBIN 12.7 g/dL (11.0-16.0); MEAN CELL VOLUME 85.5 fL (81.0-99.0); MEAN CORPUSCULAR HEMOGLOBIN 27.7 pg (27.0-31.0); MEAN CORPUSCULAR HGB CONC 32.4 g/dL (33.0-37.0); MEAN PLATELET VOLUME 9.5 fL (7.2-11.7); RBC 4.57 Mil/uL (3.80-5.20); RED CELL DISTRIBUTION WIDTH 14.7 % (11.5-14.5); WHITE BLOOD COUNT 11.8 K/uL (4.8-10.8)
[2018-01-14 11:17] LABS: ALB/GLOB RATIO 1.1 (1.0-2.1); ALBUMIN 3.5 g/dL (3.5-5.0); ALT/SGPT 30 U/L (9-52); AST/SGOT 23 U/L (14-36); BLOOD UREA NITROGEN 35 mg/dL (7-17); CALCIUM 8.1 mg/dl (8.6-10.4); GFR AFRICAN-AMERICAN > 60; GFR NON-AFRICAN AMERICAN > 60
--- NOTE | 2018-01-14 12:00 | CP.PCM.PN ---
Subjective - Date & Time of Evaluation Date of Evaluation: 01/14/18 Time of Evaluation: 11:59 - Subjective Subjective: PT SEEN BY DR NARVAEZ AND CLEARED FOR D/C TO [facility] TODAY. PT TO BE FOLLOWED BY DR. NARVAEZ AT [facility]. PER DR. DUEÑAS , CONTINUE CIPRO IV UNTIL 01/18; PT HAS PICC LINE FOR IV ABX. DR. MOTTA ALSO CLEARED THE PT FOR D/C. BIPAP TO BE CONTINUE THERE WELL; SETTINGS TO BE DETERMINED UPON ARRIVAL. NO FURTHER ORDERS. SW TO ARRANGE TRANSPORTATION. -PLACE UNDER THE SERVICE OF DR. Lor NARVAEZ WHILE AT [facility]--CALL UPON ARRIVAL TO FACILITY OR ADMITTING ORDERS AND BED ASSIGNMENT. -CONTINUE MEDICATIONS PER THE MED REC FORM---CHANGES CAN BE MADE BY ATTENDING. -PICC LINE CARE PER FACILITY PROTOCOL. -PER ID RECOMMENDATIONS, CONTINUE THE FOLLOWING: CIPRO 400 MG IV Q12 HOURS ( STARTED ON 01/08/18 AND THE LAST DOSE IS TO BE GIVEN ON 01/18/18). -EVALUATE FOR BIPAP SETTINGS; TO BE USED NEEDED. -FOR FURTHER ORDERS, CONTACT DR. Darrell NARVAEZ'S OFFICE. Objective - Vital Signs/Intake and Output Vital Signs (last 24 hours): Temp Pulse Resp BP Pulse Ox 98.0 F 100 H 20 152/84 H 96 01/14/18 09:04 01/14/18 09:04 01/14/18 09:04 01/14/18 10:09 01/14/18 09:04 Intake and Output: 01/14/18 01/14/18 06:59 18:59 Intake Total 680 Output Total 2500 Balance -1820 - Medications Medications: Current Medications Albuterol/Ipratropium (Duoneb 3 Mg/0.5 Mg (3 Ml) Ud) 3 ml INH RQ6 [facility] Carvedilol (Coreg) 12.5 mg PO BID [facility] Last Admin: 01/14/18 10:09 Dose: 12.5 mg Clonidine HCl (Catapres) 0.1 mg PO BID [facility] Last Admin: 01/14/18 10:09 Dose: 0.1 mg Enoxaparin Sodium (Lovenox) 40 mg SC DAILY [facility] Last Admin: 01/14/18 10:10 Dose: 40 mg Famotidine (Pepcid) 20 mg PO DAILY [facility] Last Admin: 01/14/18 10:09 Dose: 20 mg Furosemide (Lasix) 40 mg IVP DAILY [facility] Last Admin: 01/14/18 10:09 Dose: 40 mg Ciprofloxacin (Cipro 400mg/200ml Dsw) 400 mg in 200 mls @ 133 mls/hr IVPB Q12H [facility] PRN Reason: Protocol Last Admin: 01/14/18 06:55 Dose: 133 mls/hr Insulin Human Regular (Novolin R) 0 unit SC ACHS [facility] PRN Reason: Protocol Last Admin: 01/14/18 08:31 Dose: Not Given Isosorbide Mononitrate (Imdur Er) 30 mg PO DAILY [facility] Last Admin: 01/14/18 10:09 Dose: 30 mg Levothyroxine Sodium (Synthroid) 150 mcg PO DAILY@0630 [facility] Last Admin: 01/14/18 06:55 Dose: 150 mcg Methylprednisolone (Solu-Medrol) 40 mg IV Q12H [facility] Last Admin: 01/14/18 06:53 Dose: 40 mg Montelukast Sodium (Singulair) 10 mg PO HS [facility] Last Admin: 01/13/18 21:05 Dose: 10 mg Tramadol HCl (Ultram) 50 mg PO Q6H PRN PRN Reason: MODERATE PAIN Last Admin: 01/14/18 04:52 Dose: 50 mg - Labs Labs: 01/14/18 10:53 01/14/18 10:53 PT 11.3 SECONDS (9.7-12.2) 01/07/18 15:50 INR 1.0 01/07/18 15:50 APTT 30 SECONDS (21-34) 01/07/18 15:50
[2018-01-14] MEDS: Albuterol-Ipratrop 3 mg / 0.5 (3 ml) UD INH SCH (13:47)
--- NOTE | 2018-01-14 15:20 | CP.PCM.PN ---
Subjective - Date & Time of Evaluation Date of Evaluation: 01/14/18 Time of Evaluation: 12:00 - Subjective Subjective: Patient seen and examined at bedside today. Patient was resting comfortably in bed on nasal cannual in no acute distress. According to patient's nurse, patient was able to remain off BiPap all day yesterday. Patient states she is feeling better. She still has some shortness of breath but it is improved. Assessment/Plan: 1. Acute Respiratory failure with hypercapnia, Resolved - CXR 01/12: Mild pulmonary vascular congestion. No prominent infiltrate appear right diaphragm elevated noted. Etiology uncertain. - Continue Bipap at night and as needed - Patient going to [facility] - Cleared from a pulmonary standpoint 2. COPD - Continue Singulair 3. Obstructive Sleep Apnea - Continue BiPap at night Objective - Vital Signs/Intake and Output Vital Signs (last 24 hours): Temp Pulse Resp BP Pulse Ox 98.0 F 100 H 20 152/84 H 96 01/14/18 09:04 01/14/18 09:04 01/14/18 09:04 01/14/18 10:09 01/14/18 09:04 Intake and Output: 01/14/18 01/14/18 06:59 18:59 Intake Total 680 Output Total 2500 Balance -1820 - Medications Medications: Current Medications Albuterol/Ipratropium (Duoneb 3 Mg/0.5 Mg (3 Ml) Ud) 3 ml INH RQ6 [facility] Last Admin: 01/14/18 13:47 Dose: Not Given Carvedilol (Coreg) 12.5 mg PO BID [facility] Last Admin: 01/14/18 10:09 Dose: 12.5 mg Clonidine HCl (Catapres) 0.1 mg PO BID [facility] Last Admin: 01/14/18 10:09 Dose: 0.1 mg Enoxaparin Sodium (Lovenox) 40 mg SC DAILY [facility] Last Admin: 01/14/18 10:10 Dose: 40 mg Famotidine (Pepcid) 20 mg PO DAILY [facility] Last Admin: 01/14/18 10:09 Dose: 20 mg Furosemide (Lasix) 40 mg IVP DAILY [facility] Last Admin: 01/14/18 10:09 Dose: 40 mg Ciprofloxacin (Cipro 400mg/200ml Dsw) 400 mg in 200 mls @ 133 mls/hr IVPB Q12H [facility] PRN Reason: Protocol Last Admin: 01/14/18 06:55 Dose: 133 mls/hr Insulin Human Regular (Novolin R) 0 unit SC ACHS [facility] PRN Reason: Protocol Last Admin: 01/14/18 12:45 Dose: 6 unit Isosorbide Mononitrate (Imdur Er) 30 mg PO DAILY [facility] Last Admin: 01/14/18 10:09 Dose: 30 mg Levothyroxine Sodium (Synthroid) 150 mcg PO DAILY@0630 [facility] Last Admin: 01/14/18 06:55 Dose: 150 mcg Methylprednisolone (Solu-Medrol) 40 mg IV Q12H [facility] Last Admin: 01/14/18 06:53 Dose: 40 mg Montelukast Sodium (Singulair) 10 mg PO HS [facility] Last Admin: 01/13/18 21:05 Dose: 10 mg Tramadol HCl (Ultram) 50 mg PO Q6H PRN PRN Reason: MODERATE PAIN Last Admin: 01/14/18 04:52 Dose: 50 mg - Labs Labs: 01/14/18 10:53 01/14/18 10:53 PT 11.3 SECONDS (9.7-12.2) 01/07/18 15:50 INR 1.0 01/07/18 15:50 APTT 30 SECONDS (21-34) 01/07/18 15:50 Assessment and Plan (1) Acute respiratory failure with hypercapnia Status: Acute (2) COPD (chronic obstructive pulmonary disease) Status: Acute (3) FESTUS (obstructive sleep apnea) Status: Chronic
--- NOTE | 2018-01-14 15:22 | CP.PCM.PN ---
Subjective - Date & Time of Evaluation Date of Evaluation: 01/14/18 Time of Evaluation: 10:40 - Subjective Subjective: clinically same Objective - Vital Signs/Intake and Output Vital Signs (last 24 hours): Temp Pulse Resp BP Pulse Ox 98.0 F 100 H 20 152/84 H 96 01/14/18 09:04 01/14/18 09:04 01/14/18 09:04 01/14/18 10:09 01/14/18 09:04 Intake and Output: 01/14/18 01/14/18 06:59 18:59 Intake Total 680 Output Total 2500 Balance -1820 - Medications Medications: Current Medications Albuterol/Ipratropium (Duoneb 3 Mg/0.5 Mg (3 Ml) Ud) 3 ml INH RQ6 [facility] Last Admin: 01/14/18 13:47 Dose: Not Given Carvedilol (Coreg) 12.5 mg PO BID [facility] Last Admin: 01/14/18 10:09 Dose: 12.5 mg Clonidine HCl (Catapres) 0.1 mg PO BID [facility] Last Admin: 01/14/18 10:09 Dose: 0.1 mg Enoxaparin Sodium (Lovenox) 40 mg SC DAILY [facility] Last Admin: 01/14/18 10:10 Dose: 40 mg Famotidine (Pepcid) 20 mg PO DAILY [facility] Last Admin: 01/14/18 10:09 Dose: 20 mg Furosemide (Lasix) 40 mg IVP DAILY [facility] Last Admin: 01/14/18 10:09 Dose: 40 mg Ciprofloxacin (Cipro 400mg/200ml Dsw) 400 mg in 200 mls @ 133 mls/hr IVPB Q12H [facility] PRN Reason: Protocol Last Admin: 01/14/18 06:55 Dose: 133 mls/hr Insulin Human Regular (Novolin R) 0 unit SC ACHS [facility] PRN Reason: Protocol Last Admin: 01/14/18 12:45 Dose: 6 unit Isosorbide Mononitrate (Imdur Er) 30 mg PO DAILY [facility] Last Admin: 01/14/18 10:09 Dose: 30 mg Levothyroxine Sodium (Synthroid) 150 mcg PO DAILY@0630 [facility] Last Admin: 01/14/18 06:55 Dose: 150 mcg Methylprednisolone (Solu-Medrol) 40 mg IV Q12H [facility] Last Admin: 01/14/18 06:53 Dose: 40 mg Montelukast Sodium (Singulair) 10 mg PO HS [facility] Last Admin: 01/13/18 21:05 Dose: 10 mg Tramadol HCl (Ultram) 50 mg PO Q6H PRN PRN Reason: MODERATE PAIN Last Admin: 01/14/18 04:52 Dose: 50 mg - Labs Labs: 01/14/18 10:53 01/14/18 10:53 PT 11.3 SECONDS (9.7-12.2) 01/07/18 15:50 INR 1.0 01/07/18 15:50 APTT 30 SECONDS (21-34) 01/07/18 15:50 - Constitutional Appears: Well - Head Exam Head Exam: ATRAUMATIC, NORMAL INSPECTION, NORMOCEPHALIC - Eye Exam Eye Exam: EOMI, Normal appearance, PERRL Pupil Exam: NORMAL ACCOMODATION, PERRL - ENT Exam ENT Exam: Mucous Membranes Moist, Normal Exam - Neck Exam Neck Exam: Full ROM, Normal Inspection. absent: Lymphadenopathy - Respiratory Exam Respiratory Exam: Decreased Breath Sounds - Cardiovascular Exam Cardiovascular Exam: REGULAR RHYTHM, +S1, +S2 - GI/Abdominal Exam GI & Abdominal Exam: Soft, Diminished Bowel Sounds - Rectal Exam Rectal Exam: Deferred Assessment and Plan (1) Acute respiratory failure with hypoxia and hypercapnia Status: Acute (2) Acute respiratory acidosis Status: Acute (3) Acute respiratory failure with hypercapnia Status: Acute (4) Anemia Status: Acute (5) Arthritis Status: Acute (6) Breast mass Status: Acute (7) COPD (chronic obstructive pulmonary disease) Status: Acute (8) Chest pain Status: Acute (9) Cough Status: Acute (10) Depression Status: Acute (11) Hypercapnic acidosis Status: Acute (12) Hypercarbia Status: Acute (13) Hyponatremia Status: Acute (14) Lethargic Status: Acute (15) Leukocytosis Status: Acute (16) FESTUS (obstructive sleep apnea) Status: Acute (17) Pain of breast Status: Acute (18) Preoperative cardiovascular examination Status: Acute (19) Prophylactic measure Status: Acute (20) Respiratory failure Status: Acute (21) Urinary tract infection Status: Acute (22) COPD (chronic obstructive pulmonary disease) Status: Chronic (23) Diabetes Status: Chronic (24) HTN (hypertension) Status: Chronic (25) Hypothyroidism Status: Chronic (26) FESTUS (obstructive sleep apnea) Status: Chronic (27) Parkinsons Status: Chronic
[2018-01-14 16:31] VITALS: BP 144/87; PULSE 67; RESP 29; TEMP 98; O2SAT 98
== END 2018-01-14 17:25 | DRG 189 ==
LOC: C.ER 14:05 → C.9I 20:24 → C.6T 01-09 10:02
PROVIDERS: ADMIT Internal Medicine Nephrology; ATTEND Internal Medicine Nephrology
PROC: 5A09557 Assistance with Respiratory Ventilation, Greater than 96 Consecutive Hours, Continuous Positive Airway Pressure (ICD-10-PCS; principal; 2018-01-07)
DX: J96.02 Acute respiratory failure with hypercapnia (principal); J96.01 Acute respiratory failure with hypoxia; J44.9 Chronic obstructive pulmonary disease, unspecified; N39.0 Urinary tract infection, site not specified; E66.2 Morbid (severe) obesity with alveolar hypoventilation; Z68.42 Body mass index [BMI] 45.0-49.9, adult; E87.2 Acidosis; E87.1 Hypo-osmolality and hyponatremia; J32.0 Chronic maxillary sinusitis; I11.9 Hypertensive heart disease without heart failure; M85.80 Other specified disorders of bone density and structure, unspecified site; N63.0 Unspecified lump in unspecified breast; N64.4 Mastodynia; M19.90 Unspecified osteoarthritis, unspecified site; I51.7 Cardiomegaly; G20 Parkinson's disease; G47.33 Obstructive sleep apnea (adult) (pediatric); F31.9 Bipolar disorder, unspecified; F03.90 Unspecified dementia, unspecified severity, without behavioral disturbance, psychotic disturbance, mood disturbance, and anxiety; E11.9 Type 2 diabetes mellitus without complications; D64.9 Anemia, unspecified; E03.9 Hypothyroidism, unspecified; E78.00 Pure hypercholesterolemia, unspecified; K21.9 Gastro-esophageal reflux disease without esophagitis; Z96.651 Presence of right artificial knee joint; Z87.440 Personal history of urinary (tract) infections; Z79.899 Other long term (current) drug therapy; Z87.891 Personal history of nicotine dependence; Z90.710 Acquired absence of both cervix and uterus

== ENCOUNTER 2018-03-02 18:30 | Inpatient (IN) | payer MEDICARE, MEDICAID ==
[2018-03-02 18:31] VITALS: BMI 60.2
--- NOTE | 2018-03-02 19:15 | C.PDOC ---
"History Of Present Illness 72 year old female with a PMHx of morbid obesity, COPD, HTN, Sleep apnea, and diabetes, presents to the ED from the residential with altered mental status. As per residential, patient has numerous visits to the ER for hypercarbia. Patient denies fever, nausea, vomiting. Patient denies any other complaints. HPI limited due to patient's clinical condition. Time Seen by Provider: 03/02/18 18:47 Chief Complaint (Nursing): Altered Mental Status History Per: Patient History/Exam Limitations: Clinical Condition Current Symptoms Are (Timing): Still Present Exacerbating Factor(s): Diabetic Associated Symptoms: denies: Fever, Vomiting Past Medical History Reviewed: Historical Data, Nursing Documentation, Vital Signs Vital Signs: Last Vital Signs Temp 98.4 F 03/03/18 00:20 Pulse 74 03/03/18 02:00 Resp 22 03/03/18 02:00 BP 147/58 L 03/03/18 00:35 Pulse Ox 100 03/03/18 02:00 - Medical History PMH: Anemia, Anxiety, Arthritis, Bipolar Disorder, COPD, Dementia, Depression, HTN, Hypothyroidism, Parkinson's Disease, Sleep Apnea (on Bipap) Denies: Chronic Kidney Disease Other Surgeries: Hx of surgeries - [facility] Procedures ASSISTANCE WITH RESPIRATORY VENTILATION, 24-96 HRS, CPAP (12/11/17) ASSISTANCE WITH RESPIRATORY VENTILATION, >96 HRS, CPAP (01/07/18) CONTINUOUS INVASIVE MECHANICAL VENTILATION <96 CONSEC HRS (12/29/12) CONTINUOUS INVASIVE MECHANICAL VENTILATION =/>96 CONSEC HRS (02/28/13) DX ULTRASOUND-HEART (08/29/13) EXCISION OF RIGHT BREAST, OPEN APPROACH, DIAGNOSTIC (09/18/15) INCIS W REM OF FORIEGN BODY OR DEV FROM SKIN & SUBCUT TISSUE (08/29/13) INSERT ENDOTRACHEAL TUBE (02/28/13) INSERT INDWELLING CATH (12/26/12) INSERTION OF ENDOTRACHEAL AIRWAY INTO TRACHEA, VIA OPENING (07/14/17) INSERTION OF INFUSION DEV INTO SUP VENA CAVA, PERC APPROACH (10/21/16) INSERTION OF INFUSION DEVICE INTO R BRACH ART, PERC APPROACH (12/11/17) NON-INVASIVE MECHANICAL VENTILATION (08/29/13) RESPIRATORY VENTILATION, 24-96 CONSECUTIVE HOURS (07/14/17) Family History: States: No Known Family Hx - Social History Hx Tobacco Use: (Unknown) Hx Alcohol Use: No Hx Substance Use: No - Immunization History Hx Tetanus Toxoid Vaccination: No Hx Influenza Vaccination: No Hx Pneumococcal Vaccination: No (05/28/2009) Review Of Systems Except As Marked, All Systems Reviewed And Found Negative. (ROS limited due to patient's clinical condition) Constitutional: Negative for: Fever, Chills Gastrointestinal: Negative for: Nausea, Vomiting Neurological: Positive for: Altered Mental Status Physical Exam - Physical Exam Appears: Non-toxic, No Acute Distress, Other (Obese) Skin: Normal Color, Warm, Dry Head: Atraumatic, Normacephalic Eye(s): bilateral: Normal Inspection Nose: Normal Oral Mucosa: Moist Neck: Supple Chest: Symmetrical Cardiovascular: Rhythm Regular Respiratory: Other (Diminished breath sounds symmetrically ) Neurological/Psych: Other (Alert, oriented x2. ) Gait: Steady ED Course And Treatment - Laboratory Results Result Diagrams: 03/02/18 20:50 03/02/18 20:50 ECG: Interpreted By Me, Viewed By Me ECG Rhythm: Sinus Rhythm Rate From EC O2 Sat by Pulse Oximetry: 99 (RA) - CT Scan/US CT Head Other Rad Studies (CT/US): Read By Radiologist, Radiology Report Reviewed CT/US Interpretation: Name: MARIETTA CARL Age: 72Years F Date: 03/02/2018. Requesting Physician: Vincent Martin : 1945. [facility] Procedure Ordered As Accession Number of Images. CT HEAD WO CT HEAD W O CONTRAST [id number] 428. Provided Clinical History: ams. EXAM: CT Head Without Intravenous Contrast. EXAM DATE/TIME: Examination ordered 03/02/2018 7: 11 PM. Image number total count reviewed 428. CLINICAL HISTORY: The patient is 72 years old and is female; Pain; Other: AMS Facility exam id and description : Ct_heads head w/o contrast. TECHNIQUE: Axial computed tomography images of the head/brain without intravenous contrast. All CT scans at. this facility use at least one of these dose optimization techniques: automated exposure control; mA. and/or kV adjustment per patient size (includes targeted exams where dose is matched to clinical. indication); or iterative reconstruction. COMPARISON: No relevant prior studies available. FINDINGS: BRAIN: Unremarkable. No hemorrhage. No significant white matter disease. No edema. VENTRICLES: Unremarkable. No ventriculomegaly. BONES/JOINTS: Unremarkable. No acute fracture. SOFT TISSUES: Unremarkable. SINUSES: Trace ethmoid and maxillary sinus mucosal thickening. MASTOID AIR CELLS: Right mastoid and middle ear fluid. IMPRESSION: 1. Trace ethmoid and maxillary sinus mucosal thickening. 2. Right mastoid and middle ear fluid. Thank you for allowing us to participate in the care of your patient. MARIETTA CARL | Preliminary Radiology Report. CONFIDENTIALITY STATEMENT. This report is intended only for the use of the referring physician , and only in accordance with law, If you received this in error, call . Page 2 of 2. Dictated and Authenticated by: Fritz Bustillos MD. 2017 9:03 PM Eastern Time ([place] & [place]) Critical Care Time - Critical Care Note Total Time (in mins): 45 Documented critical care: time excludes all time spent performing seperately billable procedures. Medical Decision Making Medical Decision Making: Plan - CT Head - EKG - Labs - CXR - UA - Reassess noted hypercarbia. bipap intiated. repeat abg minimal improvment. accpetd icu. bipap settings increased. accepted by dr rhianna torres. Disposition - Disposition Disposition: HOSPITALIZED Disposition Time: 11:00 Condition: FAIR - Clinical Impression Clinical Impression: Altered mental status - Scribe Statement The provider has reviewed the documentation as recorded by the Scribe Kayla Clark All medical record entries made by the Scribe were at my direction and personally dictated by me. I have reviewed the chart and agree that the record accurately reflects my personal performance of the history, physical exam, medical decision making, and the department course for this patient. I have also personally directed, reviewed, and agree with the discharge instructions and disposition. Decision To Admit - Pt Status Changed To: Hospital Disposition Of: Inpatient - Admit Certification Admit to Inpatient:: After my assessment, the patient will require hospitalization for at least two midnights. This is because of the severity of symptoms shown, intensity of services needed, and/or the medical risk in this patient being treated as an outpatient. - InPatient: Physician Admission Certification:: needs icu - . Bed Request Type: Telemetry Admitting Physician: Rita Torres Patient Diagnosis: Altered mental status"
[2018-03-02 20:04] LABS: VENOUS BLOOD GAS BASE EXCESS 12.3 mmol/L (0.0-2.0); VENOUS BLOOD GAS PCO2 82 mmHg (40-60); VENOUS BLOOD GAS PO2 21 mm/Hg (30-55); VENOUS BLOOD PH 7.32 (7.32-7.43)
[2018-03-02] MEDS ORDERED: MethylPREDNISolone 40 mg Vial IVP STA (20:05)
[2018-03-02] MEDS ORDERED: Albuterol-Ipratrop 3 mg / 0.5 (3 ml) UD INH STA ×3 (20:05)
[2018-03-02] MEDS ORDERED: Albuterol-Ipratrop 3 mg / 0.5 (3 ml) UD ONE ×2 (21:02→21:22)
[2018-03-02 21:06] LABS: BASO % 0.5 % (0.0-2.0); EOS # 0.2 K/uL (0.0-0.7); EOS % 2.2 % (0.0-4.0); HEMOGLOBIN 11.3 g/dL (11.0-16.0); LYMPH # 2.2 K/uL (1.0-4.3); LYMPH % 27.2 % (20.0-40.0); MEAN CELL VOLUME 87.7 fL (81.0-99.0); MEAN CORPUSCULAR HEMOGLOBIN 27.6 pg (27.0-31.0); MEAN CORPUSCULAR HGB CONC 31.5 g/dL (33.0-37.0); MEAN PLATELET VOLUME 9.9 fL (7.2-11.7); MONO # 0.8 K/uL (0.0-0.8); MONO % 9.7 % (0.0-10.0); NEUT # 4.8 K/uL (1.8-7.0); NEUT % 60.4 % (50.0-75.0); RBC 4.09 Mil/uL (3.80-5.20); RED CELL DISTRIBUTION WIDTH 15.6 % (11.5-14.5)
[2018-03-02 21:22] LABS: ALB/GLOB RATIO 1.1 (1.0-2.1); ALBUMIN 3.6 g/dL (3.5-5.0); ALT/SGPT 17 U/L (9-52); AST/SGOT 9 U/L (14-36); BLOOD UREA NITROGEN 15 mg/dL (7-17); CALCIUM 8.7 mg/dl (8.6-10.4); GFR AFRICAN-AMERICAN > 60; GFR NON-AFRICAN AMERICAN > 60
[2018-03-02 21:25] LABS: B-TYPE NATRIURETIC PEPTIDE 61.5 pg/mL (0-900)
[2018-03-02] MEDS ORDERED: Ciprofloxacin 400mg/200ml D5W 400 MG/200 ML BAG IVPB STA (21:39)
[2018-03-02 22:20] LABS: URINE BILIRUBIN NEGATIVE (NEGATIVE); URINE BLOOD NEGATIVE (NEGATIVE); URINE CLARITY Clear (Clear); URINE COLOR Yellow (YELLOW); URINE GLUCOSE (UA) NORMAL (Normal); URINE LEUKOCYTE ESTERASE NEG Leu/uL (Negative); URINE PROTEIN 1+ mg/dL (NEGATIVE); URINE UROBILINOGEN NORMAL mg/dL (0.2-1.0)
[2018-03-02] MEDS ORDERED: Ciprofloxacin 400mg/200ml D5W 400 MG/200 ML BAG IVPB ONE (22:21)
[2018-03-02 22:34] LABS: ABG ALLEN TEST POS; ARTERIAL BLOOD GAS HCO3 38.7 mmol/L (21-28); ARTERIAL BLOOD GAS O2 SAT 98.3 % (95-98); ARTERIAL BLOOD GAS PCO2 85 mm/Hg (35-45); ARTERIAL BLOOD GAS PH 7.35 (7.35-7.45); ARTERIAL BLOOD GAS PO2 83 mm/Hg (80-100); ARTERIAL BLOOD GAS TCO2 49.5 mmol/L (22-28)
--- NOTE | 2018-03-02 23:30 | CP.PCM.CON ---
History of Present Illness - History of Present Illness History of Present Illness: 72 year old morbidly obese female with a PMHx of Obesity Hypoventillation syndrome, COPD, HTN, Parkinsons disease,hypothyroidism , diabetes,former smoker with multiple admissions for hypercapnic respiratory failure presents to the ED from the custodial with altered mental status. In Er patient had been talking then became lethargic.Intial ABG pH 7.35,PCO2 85,Po2 82. The Patient had denied fever, nausea, vomiting. HPI limited due to patient's clinical condition. Past Patient History - Infectious Disease Hx of Infectious Diseases: VRE - Tetanus Immunizations Tetanus Immunization: Unknown - Past Medical History & Family History Past Medical History?: Yes - Past Social History Smoking Status: Former Smoker - CARDIAC Hx Hypertension: Yes - PULMONARY Hx Chronic Obstructive Pulmonary Disease (COPD): Yes Hx Sleep Apnea: Yes (on Bipap) - NEUROLOGICAL Hx Dementia: Yes Hx Parkinson's Disease: Yes - HEENT Hx HEENT Problems: No - RENAL Hx Chronic Kidney Disease: No - ENDOCRINE/METABOLIC Hx Hypothyroidism: Yes - HEMATOLOGICAL/ONCOLOGICAL Hx Anemia: Yes - INTEGUMENTARY Hx Dermatological Problems: No - MUSCULOSKELETAL/RHEUMATOLOGICAL Hx Arthritis: Yes - GASTROINTESTINAL Hx Gastrointestinal Disorders: Yes Hx Constipation: Yes Hx Gastroesophageal Reflux: Yes - GENITOURINARY/GYNECOLOGICAL Hx Genitourinary Disorders: Yes Hx Incontinence: Yes Hx Urinary Tract Infection: Yes - PSYCHIATRIC Hx Anxiety: Yes Hx Bipolar Disorder: Yes Hx Depression: Yes Hx Substance Use: No - SURGICAL HISTORY Hx Surgeries: Yes Hx Hysterectomy: Yes Hx Orthopedic Surgery: Yes Other/Comment: right knee replacement 2014; right knee prosthesis removal s/p infection 2014 - ANESTHESIA Hx Anesthesia: Yes Hx Anesthesia Reactions: No Hx Malignant Hyperthermia: No Meds Allergies/Adverse Reactions: Allergies Allergy/AdvReac Type Severity Reaction Status Date / Time Cephalosporins Allergy Intermediate RASH Verified 03/02/18 18:49 Penicillins Allergy Intermediate RASH Verified 03/02/18 18:49 clonazepam [From Klonopin] Allergy Verified 03/02/18 18:49 mustard Allergy Intermediate RASH Uncoded 03/02/18 18:49 Results - Vital Signs Recent Vital Signs: Last Vital Signs Temp 98.6 F 03/02/18 21:04 Pulse 76 03/02/18 22:59 Resp 14 03/02/18 22:29 BP 137/82 03/02/18 22:29 Pulse Ox 98 03/02/18 22:29 - Labs Result Diagrams: 03/02/18 20:50 03/02/18 20:50 Labs: Laboratory Results - last 24 hr 03/02/18 03/02/18 03/02/18 10:29 18:48 19:56 WBC RBC Hgb Hct MCV MCH MCHC RDW Plt Count MPV Neut % (Auto) Lymph % (Auto) [place] % (Auto) Eos % (Auto) Baso % (Auto) Neut # (Auto) Lymph # (Auto) [place] # (Auto) Eos # (Auto) Baso # (Auto) PT INR APTT Puncture Site Lra pCO2 85 H* pO2 83 21 L HCO3 38.7 H ABG pH 7.35 ABG Total CO2 49.5 H ABG O2 Saturation 98.3 H ABG Base Excess 17.7 H ABG Hemoglobin 11.0 L ABG Carboxyhemoglobin 2.3 H POC ABG HHb (Measured) 1.6 ABG Methemoglobin 0.8 Donta Test Pos VBG pH 7.32 VBG pCO2 82 H* VBG HCO3 32.7 VBG Total CO2 44.7 H VBG O2 Sat (Calc) 38.7 L VBG Base Excess 12.3 H VBG Potassium 2.8 L A-a O2 Difference 96.0 Respiratory Index 1.2 Hgb O2 Saturation 95.3 Sodium 147.0 Chloride 106.0 Glucose 86 Lactate 0.5 L Vent Mode Bipap FiO2 40.0 Inspiratory BiPAP 12 Expiratory BiPAP 6 Crit Value Called To Er Er Crit Value Called By Rt Rt Crit Value Read Back Y Y Blood Gas Notified Time 2232 2001 Potassium Carbon Dioxide Anion Gap BUN Creatinine Est GFR ( Amer) Est GFR (Non-Af Amer) POC Glucose (mg/dL) 136 H Random Glucose Calcium Total Bilirubin AST ALT Alkaline Phosphatase Troponin I NT-Pro-B Natriuret Pep Total Protein Albumin Globulin Albumin/Globulin Ratio Venous Blood Potassium 2.8 L Urine Color Urine Clarity Urine pH Ur Specific [place] Urine Protein Urine Glucose (UA) Urine Ketones Urine Blood Urine Nitrate Urine Bilirubin Urine Urobilinogen Ur Leukocyte Esterase Urine WBC (Auto) Urine RBC (Auto) 03/02/18 03/02/18 03/02/18 20:50 20:50 20:50 WBC 8.0 RBC 4.09 Hgb 11.3 Hct 35.9 MCV 87.7 D MCH 27.6 MCHC 31.5 L RDW 15.6 H Plt Count 189 MPV 9.9 Neut % (Auto) 60.4 Lymph % (Auto) 27.2 [place] % (Auto) 9.7 Eos % (Auto) 2.2 Baso % (Auto) 0.5 Neut # (Auto) 4.8 Lymph # (Auto) 2.2 [place] # (Auto) 0.8 Eos # (Auto) 0.2 Baso # (Auto) 0.0 PT 11.0 INR 1.0 APTT 39 H Puncture Site pCO2 pO2 HCO3 ABG pH ABG Total CO2 ABG O2 Saturation ABG Base Excess ABG Hemoglobin ABG Carboxyhemoglobin POC ABG HHb (Measured) ABG Methemoglobin Donta Test VBG pH VBG pCO2 VBG HCO3 VBG Total CO2 VBG O2 Sat (Calc) VBG Base Excess VBG Potassium A-a O2 Difference Respiratory Index Hgb O2 Saturation Sodium 142 Chloride 89 L Glucose Lactate Vent Mode FiO2 Inspiratory BiPAP Expiratory BiPAP Crit Value Called To Crit Value Called By Crit Value Read Back Blood Gas Notified Time Potassium 3.8 Carbon Dioxide 45 H* D Anion Gap 12 BUN 15 Creatinine 0.7 Est GFR ( Amer) > 60 Est GFR (Non-Af Amer) > 60 POC Glucose (mg/dL) Random Glucose 115 H Calcium 8.7 Total Bilirubin 0.4 AST 9 L D ALT 17 Alkaline Phosphatase 62 Troponin I < 0.0120 NT-Pro-B Natriuret Pep 61.5 Total Protein 6.8 Albumin 3.6 Globulin 3.2 Albumin/Globulin Ratio 1.1 Venous Blood Potassium Urine Color Urine Clarity Urine pH Ur Specific [place] Urine Protein Urine Glucose (UA) Urine Ketones Urine Blood Urine Nitrate Urine Bilirubin Urine Urobilinogen Ur Leukocyte Esterase Urine WBC (Auto) Urine RBC (Auto) 03/02/18 03/02/18 22:13 22:29 WBC RBC Hgb Hct MCV MCH MCHC RDW Plt Count MPV Neut % (Auto) Lymph % (Auto) [place] % (Auto) Eos % (Auto) Baso % (Auto) Neut # (Auto) Lymph # (Auto) [place] # (Auto) Eos # (Auto) Baso # (Auto) PT INR APTT Puncture Site pCO2 pO2 HCO3 ABG pH ABG Total CO2 ABG O2 Saturation ABG Base Excess ABG Hemoglobin ABG Carboxyhemoglobin POC ABG HHb (Measured) ABG Methemoglobin Donta Test VBG pH VBG pCO2 VBG HCO3 VBG Total CO2 VBG O2 Sat (Calc) VBG Base Excess VBG Potassium A-a O2 Difference Respiratory Index Hgb O2 Saturation Sodium Chloride Glucose Lactate Vent Mode FiO2 Inspiratory BiPAP Expiratory BiPAP Crit Value Called To Crit Value Called By Crit Value Read Back Blood Gas Notified Time Potassium Carbon Dioxide Anion Gap BUN Creatinine Est GFR ( Amer) Est GFR (Non-Af Amer) POC Glucose (mg/dL) 134 H Random Glucose Calcium Total Bilirubin AST ALT Alkaline Phosphatase Troponin I NT-Pro-B Natriuret Pep Total Protein Albumin Globulin Albumin/Globulin Ratio Venous Blood Potassium Urine Color Yellow Urine Clarity Clear Urine pH 6.0 Ur Specific [place] 1.016 Urine Protein 1+ H Urine Glucose (UA) Normal Urine Ketones Negative Urine Blood Negative Urine Nitrate Negative Urine Bilirubin Negative Urine Urobilinogen Normal Ur Leukocyte Esterase Neg Urine WBC (Auto) 1 Urine RBC (Auto) 1
[2018-03-02] MEDS ORDERED: MethylPREDNISolone 40 mg Vial IVP SCH (23:45)
[2018-03-02] MEDS ORDERED: (Novolin R) Insulin Human Regular 100 units/ml vial SC SCH (23:45)
[2018-03-02] MEDS ORDERED: Vancomycin 1 GM in Sodium Chloride 0.9% 200 ML IVPB STA (23:59)
[2018-03-03] MEDS: Albuterol-Ipratrop 3 mg / 0.5 (3 ml) UD INH SCH ×5 (00:15→20:14)
[2018-03-03] MEDS: (Novolin R) Insulin Human Regular 100 units/ml vial SC SCH ×5 (00:52→21:15)
[2018-03-03] MEDS: MethylPREDNISolone 40 mg Vial IVP SCH ×3 (00:55→17:01)
[2018-03-03 05:33] LABS: ABG ALLEN TEST POS; ARTERIAL BLOOD GAS HCO3 37.6 mmol/L (21-28); ARTERIAL BLOOD GAS HEMOGLOBIN 13.1 g/dL (11.7-17.4); ARTERIAL BLOOD GAS O2 SAT 98.3 % (95-98); ARTERIAL BLOOD GAS PCO2 86 mm/Hg (35-45); ARTERIAL BLOOD GAS PH 7.34 (7.35-7.45); ARTERIAL BLOOD GAS PO2 98 mm/Hg (80-100)
[2018-03-03] MEDS: Levothyroxine 150 MCG TAB PO SCH (06:19)
[2018-03-03 06:39] LABS: BASO % 0.1 % (0.0-2.0); HEMOGLOBIN 12.3 g/dL (11.0-16.0); LYMPH # 0.9 K/uL (1.0-4.3); LYMPH % 8.3 % (20.0-40.0); MEAN CORPUSCULAR HEMOGLOBIN 28.1 pg (27.0-31.0); MEAN CORPUSCULAR HGB CONC 31.9 g/dL (33.0-37.0); MEAN PLATELET VOLUME 10.2 fL (7.2-11.7); MONO # 0.1 K/uL (0.0-0.8); MONO % 0.6 % (0.0-10.0); NEUT # 9.4 K/uL (1.8-7.0); PLATELET COUNT 200 K/uL (130-400); RBC 4.39 Mil/uL (3.80-5.20); RED CELL DISTRIBUTION WIDTH 15.3 % (11.5-14.5); WHITE BLOOD COUNT 10.4 K/uL (4.8-10.8)
[2018-03-03 06:46] LABS: ALB/GLOB RATIO 1.2 (1.0-2.1); ALT/SGPT 17 U/L (9-52); AST/SGOT 13 U/L (14-36); BLOOD UREA NITROGEN 17 mg/dL (7-17); CALCIUM 8.9 mg/dl (8.6-10.4); GFR AFRICAN-AMERICAN > 60; GFR NON-AFRICAN AMERICAN > 60
--- NOTE | 2018-03-03 08:28 | CT ---
Date of service: 03/02/2018 PROCEDURE: CT HEAD WITHOUT CONTRAST. HISTORY: Altered mental status COMPARISON: None available. TECHNIQUE: Axial computed tomography images were obtained through the head/brain without intravenous contrast. Radiation dose: Total exam DLP = 1273 mGy-cm. This CT exam was performed using one or more of the following dose reduction techniques: Automated exposure control, adjustment of the mA and/or kV according to patient size, and/or use of iterative reconstruction technique. FINDINGS: HEMORRHAGE: No intracranial hemorrhage. Increased attenuation within the lateral aspect of the left cerebellum is likely related streak artifact. BRAIN: No mass effect or edema. No atrophy or chronic microvascular ischemic changes. VENTRICLES: Unremarkable. No hydrocephalus. CALVARIUM: Unremarkable. PARANASAL SINUSES: Trace ethmoid and maxillary sinus mucosal thickening. MASTOID AIR CELLS: Right mastoid and middle ear fluid. OTHER FINDINGS: Markedly limited evaluation of the posterior fossa given streak attenuation. IMPRESSION: Sinus mucosal thickening. Right mastoid and middle ear fluid. If symptoms persists, consider correlation with MRI. These findings were preliminarily reported at 9:03 p.m. on 03/02/[address] Fritz Bustillos from [facility].
[2018-03-03 08:33] LABS: LYMPHOCYTE 7 % (20-40); MONOCYTE 1 % (0-10); NEUTROPHIL 92 % (50-75); PLATELET ESTIMATE NORMAL (NORMAL); TOTAL CELLS COUNTED 100
[2018-03-03 08:34] LABS: ANISOCYTOSIS SLIGHT
[2018-03-03] MEDS: Pantoprazole 40 mg EC Tab PO SCH (10:40)
[2018-03-03] MEDS: Enoxaparin 40 mg Syringe SC SCH (10:40)
--- NOTE | 2018-03-03 12:07 | RAD ---
Date of service: 03/02/2018 PROCEDURE: CHEST RADIOGRAPH, 1 VIEW HISTORY: chest pain COMPARISON: Chest radiograph dated 01/13/2018. FINDINGS: LUNGS: Clear. PLEURA: Stable elevation of the right hemidiaphragm. No pneumothorax or pleural fluid seen. CARDIOVASCULAR: Atherosclerotic aortic calcifications. Cardiomediastinal silhouette stably enlarged. OSSEOUS STRUCTURES: Scoliosis. Unchanged. VISUALIZED UPPER ABDOMEN: Normal. OTHER FINDINGS: None. IMPRESSION: No active disease.
--- NOTE | 2018-03-03 12:29 | CP.CCUPN ---
CCU Subjective - Physician Review Subjective (Free Text): 03/03/18 12:05 72 yo F w/ PMHx of morbif obesity, obesity hypoventilation syndrome, COPD, HTN, Parkinson's, hypothyroidism, DM and a hx of multiple previous admissions for hypercapneic respiratory failure sent to ED from [place] w/ AMS. Pt seen and examined at bedside. No complaints at this time. Currently on BiPAP. CCU Objective - Vital Signs / Intake & Output Vital Signs (Last 4 hours): Vital Signs Pulse Resp BP Pulse Ox 03/03/18 11:00 86 13 53 L 03/03/18 10:40 149/69 03/03/18 10:34 89 14 03/03/18 10:21 88 15 149/69 03/03/18 10:00 82 12 100 03/03/18 09:00 76 21 93 L 03/03/18 08:35 90 10 L 175/88 H 99 Intake and Output (Last 8hrs): Intake & Output 03/02/18 03/03/18 03/03/18 22:59 06:59 14:59 Intake Total 230 0 Output Total 200 Balance 30 0 Weight 320 lb 295 lb Intake: Intake, IV Amount 200 0 Left Antecubital 200 0 Oral 30 0 Output: Urine 200 Urine, Voided 200 Other: Voiding Method Diaper # Bowel Movements 0 - Physical Exam Head: Positive for: Atraumatic, Normocephalic Extroacular Muscles: Positive for: EOMI Conjunctiva: Positive for: Normal Mouth: Positive for: Dry Respiratory/Chest: Positive for: Good Air Exchange. Negative for: Respiratory Distress, Wheezes Cardiovascular: Positive for: Regular Rate and Rhythm, Normal S1, S2. Negative for: Murmurs Abdomen: Positive for: Normal Bowel Sounds. Negative for: Tenderness, Distention Upper Extremity: Positive for: Normal Inspection Lower Extremity: Positive for: Normal Inspection Neurological: Positive for: GCS=15 Skin: Positive for: Warm Psychiatric: Positive for: Alert - Medications Active Medications: Active Medications Generic Name Dose Route Start Last Admin Trade Name Freq PRN Reason Stop Dose Admin Albuterol/Ipratropium 3 ml 03/03/18 00:00 03/03/18 07:57 Duoneb 3 Mg/0.5 Mg (3 Ml) Ud INH 3 ml RQ4 TIMOTEO Administration Enoxaparin Sodium 40 mg 03/03/18 10:00 03/03/18 10:40 Lovenox SC 40 mg DAILY TIMOTEO Administration Furosemide 40 mg 03/03/18 10:00 03/03/18 10:40 Lasix PO 40 mg DAILY TIMOTEO Administration Insulin Human Regular 0 unit 03/03/18 16:30 Novolin R SC ACHS TIMOTEO Protocol Isosorbide Mononitrate 30 mg 03/03/18 10:00 03/03/18 10:40 Imdur Er PO 30 mg DAILY TIMOTEO Administration Levothyroxine Sodium 150 mcg 03/03/18 06:30 03/03/18 06:19 Synthroid PO 150 mcg DAILY@0630 TIMOTEO Administration Methylprednisolone 60 mg 03/03/18 01:00 03/03/18 10:39 Solu-Medrol IVP 60 mg Q8H TIMOTEO Administration Montelukast Sodium 10 mg 03/03/18 22:00 Singulair PO HS TIMOTEO Pantoprazole Sodium 40 mg 03/03/18 10:00 03/03/18 10:40 Protonix Ec Tab PO 40 mg DAILY TIMOTEO Administration - Patient Studies Lab Studies: Lab Studies 03/03/18 03/03/18 03/03/18 Range/Units 11:41 06:24 06:24 WBC 10.4 (4.8-10.8) K/uL RBC 4.39 (3.80-5.20) Mil/uL Hgb 12.3 (11.0-16.0) g/dL Hct 38.7 (34.0-47.0) % MCV 88.0 (81.0-99.0) fL MCH 28.1 (27.0-31.0) pg MCHC 31.9 L (33.0-37.0) g/dL RDW 15.3 H (11.5-14.5) % Plt Count 200 (130-400) K/uL MPV 10.2 (7.2-11.7) fL Neut % (Auto) 91.0 H (50.0-75.0) % Lymph % (Auto) 8.3 L (20.0-40.0) % [place] % (Auto) 0.6 (0.0-10.0) % Eos % (Auto) 0.0 (0.0-4.0) % Baso % (Auto) 0.1 (0.0-2.0) % Neut # (Auto) 9.4 H (1.8-7.0) K/uL Lymph # (Auto) 0.9 L (1.0-4.3) K/uL [place] # (Auto) 0.1 (0.0-0.8) K/uL Eos # (Auto) 0.0 (0.0-0.7) K/uL Baso # (Auto) 0.0 (0.0-0.2) K/uL Neutrophils % (Manual) 92 H (50-75) % Lymphocytes % (Manual) 7 L (20-40) % Monocytes % (Manual) 1 (0-10) % Platelet Estimate Normal (NORMAL) Anisocytosis (manual) Slight PT (9.7-12.2) SECONDS INR APTT (21-34) SECONDS Puncture Site pCO2 (35-45) mm/Hg pO2 (80-100) mm/Hg HCO3 (21-28) mmol/L ABG pH (7.35-7.45) ABG Total CO2 (22-28) mmol/L ABG O2 Saturation (95-98) % ABG Base Excess (-2.0-3.0) mmol/L ABG Hemoglobin (11.7-17.4) g/dL ABG Carboxyhemoglobin (0.5-1.5) % POC ABG HHb (Measured) (0.0-5.0) % ABG Methemoglobin (0.0-3.0) % [place] Test VBG pH (7.32-7.43) VBG pCO2 (40-60) mmHg VBG HCO3 mmol/L VBG Total CO2 (22-28) mmol/L VBG O2 Sat (Calc) (40-65) % VBG Base Excess (0.0-2.0) mmol/L VBG Potassium (3.6-5.2) mmol/L A-a O2 Difference mm/Hg Respiratory Index Hgb O2 Saturation (95.0-98.0) % Sodium 143 (132-148) mmol/l Chloride 90 L (98-107) mmol/L Glucose (65-105) mg/dl Lactate (0.7-2.1) mmol/L Vent Mode FiO2 % Inspiratory BiPAP Expiratory BiPAP Crit Value Called To Crit Value Called By Crit Value Read Back Blood Gas Notified Time Potassium 4.6 (3.6-5.2) mmol/L Carbon Dioxide 41 H* (22-30) mmol/L Anion Gap 17 (10-20) BUN 17 (7-17) mg/dL Creatinine 0.5 L (0.7-1.2) mg/dL Est GFR ( Amer) > 60 Est GFR (Non-Af Amer) > 60 POC Glucose (mg/dL) 170 H (65-110) mg/dL Random Glucose 197 H (65-105) mg/dL Calcium 8.9 (8.6-10.4) mg/dl Phosphorus 4.1 (2.5-4.5) mg/dL Magnesium 2.2 (1.6-2.3) mg/dL Total Bilirubin 0.5 (0.2-1.3) mg/dL AST 13 L D (14-36) U/L ALT 17 (9-52) U/L Alkaline Phosphatase 69 (38-126) U/L Troponin I (0.00-0.120) ng/mL NT-Pro-B Natriuret Pep (0-900) pg/mL Total Protein 7.5 (6.3-8.3) g/dL Albumin 4.0 (3.5-5.0) g/dL Globulin 3.5 (2.2-3.9) gm/dL Albumin/Globulin Ratio 1.2 (1.0-2.1) TSH 3rd Generation 0.04 L (0.46-4.68) mIU/L Venous Blood Potassium (3.6-5.2) mmol/L Urine Color (YELLOW) Urine Clarity (Clear) Urine pH (5.0-8.0) Ur Specific [place] (1.003-1.030) Urine Protein (NEGATIVE) mg/dL Urine Glucose (UA) (Normal) mg/dL Urine Ketones (NEGATIVE) mg/dL Urine Blood (NEGATIVE) Urine Nitrate (NEGATIVE) Urine Bilirubin (NEGATIVE) Urine Urobilinogen (0.2-1.0) mg/dL Ur Leukocyte Esterase (Negative) Cony/uL Urine WBC (Auto) (0-5) /hpf Urine RBC (Auto) (0-3) /hpf 03/03/18 03/03/18 03/03/18 Range/Units 05:45 05:25 00:50 WBC (4.8-10.8) K/uL RBC (3.80-5.20) Mil/uL Hgb (11.0-16.0) g/dL Hct (34.0-47.0) % MCV (81.0-99.0) fL MCH (27.0-31.0) pg MCHC (33.0-37.0) g/dL RDW (11.5-14.5) % Plt Count (130-400) K/uL MPV (7.2-11.7) fL Neut % (Auto) (50.0-75.0) % Lymph % (Auto) (20.0-40.0) % [place] % (Auto) (0.0-10.0) % Eos % (Auto) (0.0-4.0) % Baso % (Auto) (0.0-2.0) % Neut # (Auto) (1.8-7.0) K/uL Lymph # (Auto) (1.0-4.3) K/uL [place] # (Auto) (0.0-0.8) K/uL Eos # (Auto) (0.0-0.7) K/uL Baso # (Auto) (0.0-0.2) K/uL Neutrophils % (Manual) (50-75) % Lymphocytes % (Manual) (20-40) % Monocytes % (Manual) (0-10) % Platelet Estimate (NORMAL) Anisocytosis (manual) PT (9.7-12.2) SECONDS INR APTT (21-34) SECONDS Puncture Site Lr pCO2 86 H* (35-45) mm/Hg pO2 98 (80-100) mm/Hg HCO3 37.6 H (21-28) mmol/L ABG pH 7.34 L (7.35-7.45) ABG Total CO2 49.0 H (22-28) mmol/L ABG O2 Saturation 98.3 H (95-98) % ABG Base Excess 16.3 H (-2.0-3.0) mmol/L ABG Hemoglobin 13.1 (11.7-17.4) g/dL ABG Carboxyhemoglobin 1.7 H (0.5-1.5) % POC ABG HHb (Measured) 1.7 (0.0-5.0) % ABG Methemoglobin 1.0 (0.0-3.0) % [place] Test Pos VBG pH (7.32-7.43) VBG pCO2 (40-60) mmHg VBG HCO3 mmol/L VBG Total CO2 (22-28) mmol/L VBG O2 Sat (Calc) (40-65) % VBG Base Excess (0.0-2.0) mmol/L VBG Potassium (3.6-5.2) mmol/L A-a O2 Difference 80.0 mm/Hg Respiratory Index 0.8 Hgb O2 Saturation 95.6 (95.0-98.0) % Sodium (132-148) mmol/l Chloride (98-107) mmol/L Glucose (65-105) mg/dl Lactate (0.7-2.1) mmol/L Vent Mode Bipap FiO2 40.0 % Inspiratory BiPAP 20 Expiratory BiPAP 5 Crit Value Called To Rain dailey/rn Crit Value Called By Mark larry/rt Crit Value Read Back Y Blood Gas Notified Time 535 Potassium (3.6-5.2) mmol/L Carbon Dioxide (22-30) mmol/L Anion Gap (10-20) BUN (7-17) mg/dL Creatinine (0.7-1.2) mg/dL Est GFR ( Amer) Est GFR (Non-Af Amer) POC Glucose (mg/dL) 216 H 174 H (65-110) mg/dL Random Glucose (65-105) mg/dL Calcium (8.6-10.4) mg/dl Phosphorus (2.5-4.5) mg/dL Magnesium (1.6-2.3) mg/dL Total Bilirubin (0.2-1.3) mg/dL AST (14-36) U/L ALT (9-52) U/L Alkaline Phosphatase (38-126) U/L Troponin I (0.00-0.120) ng/mL NT-Pro-B Natriuret Pep (0-900) pg/mL Total Protein (6.3-8.3) g/dL Albumin (3.5-5.0) g/dL Globulin (2.2-3.9) gm/dL Albumin/Globulin Ratio (1.0-2.1) TSH 3rd Generation (0.46-4.68) mIU/L Venous Blood Potassium (3.6-5.2) mmol/L Urine Color (YELLOW) Urine Clarity (Clear) Urine pH (5.0-8.0) Ur Specific [place] (1.003-1.030) Urine Protein (NEGATIVE) mg/dL Urine Glucose (UA) (Normal) mg/dL Urine Ketones (NEGATIVE) mg/dL Urine Blood (NEGATIVE) Urine Nitrate (NEGATIVE) Urine Bilirubin (NEGATIVE) Urine Urobilinogen (0.2-1.0) mg/dL Ur Leukocyte Esterase (Negative) Cony/uL Urine WBC (Auto) (0-5) /hpf Urine RBC (Auto) (0-3) /hpf 03/02/18 03/02/18 03/02/18 Range/Units 22:29 22:13 20:50 WBC (4.8-10.8) K/uL RBC (3.80-5.20) Mil/uL Hgb (11.0-16.0) g/dL Hct (34.0-47.0) % MCV (81.0-99.0) fL MCH (27.0-31.0) pg MCHC (33.0-37.0) g/dL RDW (11.5-14.5) % Plt Count (130-400) K/uL MPV (7.2-11.7) fL Neut % (Auto) (50.0-75.0) % Lymph % (Auto) (20.0-40.0) % [place] % (Auto) (0.0-10.0) % Eos % (Auto) (0.0-4.0) % Baso % (Auto) (0.0-2.0) % Neut # (Auto) (1.8-7.0) K/uL Lymph # (Auto) (1.0-4.3) K/uL [place] # (Auto) (0.0-0.8) K/uL Eos # (Auto) (0.0-0.7) K/uL Baso # (Auto) (0.0-0.2) K/uL Neutrophils % (Manual) (50-75) % Lymphocytes % (Manual) (20-40) % Monocytes % (Manual) (0-10) % Platelet Estimate (NORMAL) Anisocytosis (manual) PT (9.7-12.2) SECONDS INR APTT (21-34) SECONDS Puncture Site pCO2 (35-45) mm/Hg pO2 (80-100) mm/Hg HCO3 (21-28) mmol/L ABG pH (7.35-7.45) ABG Total CO2 (22-28) mmol/L ABG O2 Saturation (95-98) % ABG Base Excess (-2.0-3.0) mmol/L ABG Hemoglobin (11.7-17.4) g/dL ABG Carboxyhemoglobin (0.5-1.5) % POC ABG HHb (Measured) (0.0-5.0) % ABG Methemoglobin (0.0-3.0) % [place] Test VBG pH (7.32-7.43) VBG pCO2 (40-60) mmHg VBG HCO3 mmol/L VBG Total CO2 (22-28) mmol/L VBG O2 Sat (Calc) (40-65) % VBG Base Excess (0.0-2.0) mmol/L VBG Potassium (3.6-5.2) mmol/L A-a O2 Difference mm/Hg Respiratory Index Hgb O2 Saturation (95.0-98.0) % Sodium 142 (132-148) mmol/l Chloride 89 L (98-107) mmol/L Glucose (65-105) mg/dl Lactate (0.7-2.1) mmol/L Vent Mode FiO2 % Inspiratory BiPAP Expiratory BiPAP Crit Value Called To Crit Value Called By Crit Value Read Back Blood Gas Notified Time Potassium 3.8 (3.6-5.2) mmol/L Carbon Dioxide 45 H* D (22-30) mmol/L Anion Gap 12 (10-20) BUN 15 (7-17) mg/dL Creatinine 0.7 (0.7-1.2) mg/dL Est GFR ( Amer) > 60 Est GFR (Non-Af Amer) > 60 POC Glucose (mg/dL) 134 H (65-110) mg/dL Random Glucose 115 H (65-105) mg/dL Calcium 8.7 (8.6-10.4) mg/dl Phosphorus (2.5-4.5) mg/dL Magnesium (1.6-2.3) mg/dL Total Bilirubin 0.4 (0.2-1.3) mg/dL AST 9 L D (14-36) U/L ALT 17 (9-52) U/L Alkaline Phosphatase 62 (38-126) U/L Troponin I < 0.0120 (0.00-0.120) ng/mL NT-Pro-B Natriuret Pep 61.5 (0-900) pg/mL Total Protein 6.8 (6.3-8.3) g/dL Albumin 3.6 (3.5-5.0) g/dL Globulin 3.2 (2.2-3.9) gm/dL Albumin/Globulin Ratio 1.1 (1.0-2.1) TSH 3rd Generation (0.46-4.68) mIU/L Venous Blood Potassium (3.6-5.2) mmol/L Urine Color Yellow (YELLOW) Urine Clarity Clear (Clear) Urine pH 6.0 (5.0-8.0) Ur Specific [place] 1.016 (1.003-1.030) Urine Protein 1+ H (NEGATIVE) mg/dL Urine Glucose (UA) Normal (Normal) mg/dL Urine Ketones Negative (NEGATIVE) mg/dL Urine Blood Negative (NEGATIVE) Urine Nitrate Negative (NEGATIVE) Urine Bilirubin Negative (NEGATIVE) Urine Urobilinogen Normal (0.2-1.0) mg/dL Ur Leukocyte Esterase Neg (Negative) Cony/uL Urine WBC (Auto) 1 (0-5) /hpf Urine RBC (Auto) 1 (0-3) /hpf 03/02/18 03/02/18 03/02/18 Range/Units 20:50 20:50 19:56 WBC 8.0 (4.8-10.8) K/uL RBC 4.09 (3.80-5.20) Mil/uL Hgb 11.3 (11.0-16.0) g/dL Hct 35.9 (34.0-47.0) % MCV 87.7 D (81.0-99.0) fL MCH 27.6 (27.0-31.0) pg MCHC 31.5 L (33.0-37.0) g/dL RDW 15.6 H (11.5-14.5) % Plt Count 189 (130-400) K/uL MPV 9.9 (7.2-11.7) fL Neut % (Auto) 60.4 (50.0-75.0) % Lymph % (Auto) 27.2 (20.0-40.0) % [place] % (Auto) 9.7 (0.0-10.0) % Eos % (Auto) 2.2 (0.0-4.0) % Baso % (Auto) 0.5 (0.0-2.0) % Neut # (Auto) 4.8 (1.8-7.0) K/uL Lymph # (Auto) 2.2 (1.0-4.3) K/uL [place] # (Auto) 0.8 (0.0-0.8) K/uL Eos # (Auto) 0.2 (0.0-0.7) K/uL Baso # (Auto) 0.0 (0.0-0.2) K/uL Neutrophils % (Manual) (50-75) % Lymphocytes % (Manual) (20-40) % Monocytes % (Manual) (0-10) % Platelet Estimate (NORMAL) Anisocytosis (manual) PT 11.0 (9.7-12.2) SECONDS INR 1.0 APTT 39 H (21-34) SECONDS Puncture Site pCO2 (35-45) mm/Hg pO2 21 L (80-100) mm/Hg HCO3 (21-28) mmol/L ABG pH (7.35-7.45) ABG Total CO2 (22-28) mmol/L ABG O2 Saturation (95-98) % ABG Base Excess (-2.0-3.0) mmol/L ABG Hemoglobin (11.7-17.4) g/dL ABG Carboxyhemoglobin (0.5-1.5) % POC ABG HHb (Measured) (0.0-5.0) % ABG Methemoglobin (0.0-3.0) % [place] Test VBG pH 7.32 (7.32-7.43) VBG pCO2 82 H* (40-60) mmHg VBG HCO3 32.7 mmol/L VBG Total CO2 44.7 H (22-28) mmol/L VBG O2 Sat (Calc) 38.7 L (40-65) % VBG Base Excess 12.3 H (0.0-2.0) mmol/L VBG Potassium 2.8 L (3.6-5.2) mmol/L A-a O2 Difference mm/Hg Respiratory Index Hgb O2 Saturation (95.0-98.0) % Sodium 147.0 (132-148) mmol/l Chloride 106.0 (98-107) mmol/L Glucose 86 (65-105) mg/dl Lactate 0.5 L (0.7-2.1) mmol/L Vent Mode FiO2 % Inspiratory BiPAP Expiratory BiPAP Crit Value Called To Er Crit Value Called By Rt Crit Value Read Back Y Blood Gas Notified Time 2001 Potassium (3.6-5.2) mmol/L Carbon Dioxide (22-30) mmol/L Anion Gap (10-20) BUN (7-17) mg/dL Creatinine (0.7-1.2) mg/dL Est GFR ( Amer) Est GFR (Non-Af Amer) POC Glucose (mg/dL) (65-110) mg/dL Random Glucose (65-105) mg/dL Calcium (8.6-10.4) mg/dl Phosphorus (2.5-4.5) mg/dL Magnesium (1.6-2.3) mg/dL Total Bilirubin (0.2-1.3) mg/dL AST (14-36) U/L ALT (9-52) U/L Alkaline Phosphatase (38-126) U/L Troponin I (0.00-0.120) ng/mL NT-Pro-B Natriuret Pep (0-900) pg/mL Total Protein (6.3-8.3) g/dL Albumin (3.5-5.0) g/dL Globulin (2.2-3.9) gm/dL Albumin/Globulin Ratio (1.0-2.1) TSH 3rd Generation (0.46-4.68) mIU/L Venous Blood Potassium 2.8 L (3.6-5.2) mmol/L Urine Color (YELLOW) Urine Clarity (Clear) Urine pH (5.0-8.0) Ur Specific [place] (1.003-1.030) Urine Protein (NEGATIVE) mg/dL Urine Glucose (UA) (Normal) mg/dL Urine Ketones (NEGATIVE) mg/dL Urine Blood (NEGATIVE) Urine Nitrate (NEGATIVE) Urine Bilirubin (NEGATIVE) Urine Urobilinogen (0.2-1.0) mg/dL Ur Leukocyte Esterase (Negative) Cony/uL Urine WBC (Auto) (0-5) /hpf Urine RBC (Auto) (0-3) /hpf 03/02/18 03/02/18 Range/Units 18:48 10:29 WBC (4.8-10.8) K/uL RBC (3.80-5.20) Mil/uL Hgb (11.0-16.0) g/dL Hct (34.0-47.0) % MCV (81.0-99.0) fL MCH (27.0-31.0) pg MCHC (33.0-37.0) g/dL RDW (11.5-14.5) % Plt Count (130-400) K/uL MPV (7.2-11.7) fL Neut % (Auto) (50.0-75.0) % Lymph % (Auto) (20.0-40.0) % [place] % (Auto) (0.0-10.0) % Eos % (Auto) (0.0-4.0) % Baso % (Auto) (0.0-2.0) % Neut # (Auto) (1.8-7.0) K/uL Lymph # (Auto) (1.0-4.3) K/uL [place] # (Auto) (0.0-0.8) K/uL Eos # (Auto) (0.0-0.7) K/uL Baso # (Auto) (0.0-0.2) K/uL Neutrophils % (Manual) (50-75) % Lymphocytes % (Manual) (20-40) % Monocytes % (Manual) (0-10) % Platelet Estimate (NORMAL) Anisocytosis (manual) PT (9.7-12.2) SECONDS INR APTT (21-34) SECONDS Puncture Site Lra pCO2 85 H* (35-45) mm/Hg pO2 83 (80-100) mm/Hg HCO3 38.7 H (21-28) mmol/L ABG pH 7.35 (7.35-7.45) ABG Total CO2 49.5 H (22-28) mmol/L ABG O2 Saturation 98.3 H (95-98) % ABG Base Excess 17.7 H (-2.0-3.0) mmol/L ABG Hemoglobin 11.0 L (11.7-17.4) g/dL ABG Carboxyhemoglobin 2.3 H (0.5-1.5) % POC ABG HHb (Measured) 1.6 (0.0-5.0) % ABG Methemoglobin 0.8 (0.0-3.0) % [place] Test Pos VBG pH (7.32-7.43) VBG pCO2 (40-60) mmHg VBG HCO3 mmol/L VBG Total CO2 (22-28) mmol/L VBG O2 Sat (Calc) (40-65) % VBG Base Excess (0.0-2.0) mmol/L VBG Potassium (3.6-5.2) mmol/L A-a O2 Difference 96.0 mm/Hg Respiratory Index 1.2 Hgb O2 Saturation 95.3 (95.0-98.0) % Sodium (132-148) mmol/l Chloride (98-107) mmol/L Glucose (65-105) mg/dl Lactate (0.7-2.1) mmol/L Vent Mode Bipap FiO2 40.0 % Inspiratory BiPAP 12 Expiratory BiPAP 6 Crit Value Called To Er Crit Value Called By Rt Crit Value Read Back Y Blood Gas Notified Time 2233 Potassium (3.6-5.2) mmol/L Carbon Dioxide (22-30) mmol/L Anion Gap (10-20) BUN (7-17) mg/dL Creatinine (0.7-1.2) mg/dL Est GFR ( Amer) Est GFR (Non-Af Amer) POC Glucose (mg/dL) 136 H (65-110) mg/dL Random Glucose (65-105) mg/dL Calcium (8.6-10.4) mg/dl Phosphorus (2.5-4.5) mg/dL Magnesium (1.6-2.3) mg/dL Total Bilirubin (0.2-1.3) mg/dL AST (14-36) U/L ALT (9-52) U/L Alkaline Phosphatase (38-126) U/L Troponin I (0.00-0.120) ng/mL NT-Pro-B Natriuret Pep (0-900) pg/mL Total Protein (6.3-8.3) g/dL Albumin (3.5-5.0) g/dL Globulin (2.2-3.9) gm/dL Albumin/Globulin Ratio (1.0-2.1) TSH 3rd Generation (0.46-4.68) mIU/L Venous Blood Potassium (3.6-5.2) mmol/L Urine Color (YELLOW) Urine Clarity (Clear) Urine pH (5.0-8.0) Ur Specific [place] (1.003-1.030) Urine Protein (NEGATIVE) mg/dL Urine Glucose (UA) (Normal) mg/dL Urine Ketones (NEGATIVE) mg/dL Urine Blood (NEGATIVE) Urine Nitrate (NEGATIVE) Urine Bilirubin (NEGATIVE) Urine Urobilinogen (0.2-1.0) mg/dL Ur Leukocyte Esterase (Negative) Cony/uL Urine WBC (Auto) (0-5) /hpf Urine RBC (Auto) (0-3) /hpf Laboratory Results - last 24 hr 03/02/18 03/02/18 03/02/18 10:29 18:48 19:56 WBC RBC Hgb Hct MCV MCH MCHC RDW Plt Count MPV Neut % (Auto) Lymph % (Auto) [place] % (Auto) Eos % (Auto) Baso % (Auto) Neut # (Auto) Lymph # (Auto) [place] # (Auto) Eos # (Auto) Baso # (Auto) Neutrophils % (Manual) Lymphocytes % (Manual) Monocytes % (Manual) Platelet Estimate Anisocytosis (manual) PT INR APTT Puncture Site Lra pCO2 85 H* pO2 83 21 L HCO3 38.7 H ABG pH 7.35 ABG Total CO2 49.5 H ABG O2 Saturation 98.3 H ABG Base Excess 17.7 H ABG Hemoglobin 11.0 L ABG Carboxyhemoglobin 2.3 H POC ABG HHb (Measured) 1.6 ABG Methemoglobin 0.8 [place] Test Pos VBG pH 7.32 VBG pCO2 82 H* VBG HCO3 32.7 VBG Total CO2 44.7 H VBG O2 Sat (Calc) 38.7 L VBG Base Excess 12.3 H VBG Potassium 2.8 L A-a O2 Difference 96.0 Respiratory Index 1.2 Hgb O2 Saturation 95.3 Sodium 147.0 Chloride 106.0 Glucose 86 Lactate 0.5 L Vent Mode Bipap FiO2 40.0 Inspiratory BiPAP 12 Expiratory BiPAP 6 Crit Value Called To Er Er Crit Value Called By Rt Rt Crit Value Read Back Y Y Blood Gas Notified Time 2232 2001 Potassium Carbon Dioxide Anion Gap BUN Creatinine Est GFR ( Amer) Est GFR (Non-Af Amer) POC Glucose (mg/dL) 136 H Random Glucose Calcium Phosphorus Magnesium Total Bilirubin AST ALT Alkaline Phosphatase Troponin I NT-Pro-B Natriuret Pep Total Protein Albumin Globulin Albumin/Globulin Ratio TSH 3rd Generation Venous Blood Potassium 2.8 L Urine Color Urine Clarity Urine pH Ur Specific [place] Urine Protein Urine Glucose (UA) Urine Ketones Urine Blood Urine Nitrate Urine Bilirubin Urine Urobilinogen Ur Leukocyte Esterase Urine WBC (Auto) Urine RBC (Auto) 03/02/18 03/02/18 03/02/18 20:50 20:50 20:50 WBC 8.0 RBC 4.09 Hgb 11.3 Hct 35.9 MCV 87.7 D MCH 27.6 MCHC 31.5 L RDW 15.6 H Plt Count 189 MPV 9.9 Neut % (Auto) 60.4 Lymph % (Auto) 27.2 [place] % (Auto) 9.7 Eos % (Auto) 2.2 Baso % (Auto) 0.5 Neut # (Auto) 4.8 Lymph # (Auto) 2.2 [place] # (Auto) 0.8 Eos # (Auto) 0.2 Baso # (Auto) 0.0 Neutrophils % (Manual) Lymphocytes % (Manual) Monocytes % (Manual) Platelet Estimate Anisocytosis (manual) PT 11.0 INR 1.0 APTT 39 H Puncture Site pCO2 pO2 HCO3 ABG pH ABG Total CO2 ABG O2 Saturation ABG Base Excess ABG Hemoglobin ABG Carboxyhemoglobin POC ABG HHb (Measured) ABG Methemoglobin Donta Test VBG pH VBG pCO2 VBG HCO3 VBG Total CO2 VBG O2 Sat (Calc) VBG Base Excess VBG Potassium A-a O2 Difference Respiratory Index Hgb O2 Saturation Sodium 142 Chloride 89 L Glucose Lactate Vent Mode FiO2 Inspiratory BiPAP Expiratory BiPAP Crit Value Called To Crit Value Called By Crit Value Read Back Blood Gas Notified Time Potassium 3.8 Carbon Dioxide 45 H* D Anion Gap 12 BUN 15 Creatinine 0.7 Est GFR ( Amer) > 60 Est GFR (Non-Af Amer) > 60 POC Glucose (mg/dL) Random Glucose 115 H Calcium 8.7 Phosphorus Magnesium Total Bilirubin 0.4 AST 9 L D ALT 17 Alkaline Phosphatase 62 Troponin I < 0.0120 NT-Pro-B Natriuret Pep 61.5 Total Protein 6.8 Albumin 3.6 Globulin 3.2 Albumin/Globulin Ratio 1.1 TSH 3rd Generation Venous Blood Potassium Urine Color Urine Clarity Urine pH Ur Specific [place] Urine Protein Urine Glucose (UA) Urine Ketones Urine Blood Urine Nitrate Urine Bilirubin Urine Urobilinogen Ur Leukocyte Esterase Urine WBC (Auto) Urine RBC (Auto) 03/02/18 03/02/18 03/03/18 22:13 22:29 00:50 WBC RBC Hgb Hct MCV MCH MCHC RDW Plt Count MPV Neut % (Auto) Lymph % (Auto) [place] % (Auto) Eos % (Auto) Baso % (Auto) Neut # (Auto) Lymph # (Auto) [place] # (Auto) Eos # (Auto) Baso # (Auto) Neutrophils % (Manual) Lymphocytes % (Manual) Monocytes % (Manual) Platelet Estimate Anisocytosis (manual) PT INR APTT Puncture Site pCO2 pO2 HCO3 ABG pH ABG Total CO2 ABG O2 Saturation ABG Base Excess ABG Hemoglobin ABG Carboxyhemoglobin POC ABG HHb (Measured) ABG Methemoglobin Donta Test VBG pH VBG pCO2 VBG HCO3 VBG Total CO2 VBG O2 Sat (Calc) VBG Base Excess VBG Potassium A-a O2 Difference Respiratory Index Hgb O2 Saturation Sodium Chloride Glucose Lactate Vent Mode FiO2 Inspiratory BiPAP Expiratory BiPAP Crit Value Called To Crit Value Called By Crit Value Read Back Blood Gas Notified Time Potassium Carbon Dioxide Anion Gap BUN Creatinine Est GFR ( Amer) Est GFR (Non-Af Amer) POC Glucose (mg/dL) 134 H 174 H Random Glucose Calcium Phosphorus Magnesium Total Bilirubin AST ALT Alkaline Phosphatase Troponin I NT-Pro-B Natriuret Pep Total Protein Albumin Globulin Albumin/Globulin Ratio TSH 3rd Generation Venous Blood Potassium Urine Color Yellow Urine Clarity Clear Urine pH 6.0 Ur Specific [place] 1.016 Urine Protein 1+ H Urine Glucose (UA) Normal Urine Ketones Negative Urine Blood Negative Urine Nitrate Negative Urine Bilirubin Negative Urine Urobilinogen Normal Ur Leukocyte Esterase Neg Urine WBC (Auto) 1 Urine RBC (Auto) 1 03/03/18 03/03/18 03/03/18 05:25 05:45 06:24 WBC 10.4 RBC 4.39 Hgb 12.3 Hct 38.7 MCV 88.0 MCH 28.1 MCHC 31.9 L RDW 15.3 H Plt Count 200 MPV 10.2 Neut % (Auto) 91.0 H Lymph % (Auto) 8.3 L [place] % (Auto) 0.6 Eos % (Auto) 0.0 Baso % (Auto) 0.1 Neut # (Auto) 9.4 H Lymph # (Auto) 0.9 L [place] # (Auto) 0.1 Eos # (Auto) 0.0 Baso # (Auto) 0.0 Neutrophils % (Manual) 92 H Lymphocytes % (Manual) 7 L Monocytes % (Manual) 1 Platelet Estimate Normal Anisocytosis (manual) Slight PT INR APTT Puncture Site Lr pCO2 86 H* pO2 98 HCO3 37.6 H ABG pH 7.34 L ABG Total CO2 49.0 H ABG O2 Saturation 98.3 H ABG Base Excess 16.3 H ABG Hemoglobin 13.1 ABG Carboxyhemoglobin 1.7 H POC ABG HHb (Measured) 1.7 ABG Methemoglobin 1.0 Donta Test Pos VBG pH VBG pCO2 VBG HCO3 VBG Total CO2 VBG O2 Sat (Calc) VBG Base Excess VBG Potassium A-a O2 Difference 80.0 Respiratory Index 0.8 Hgb O2 Saturation 95.6 Sodium Chloride Glucose Lactate Vent Mode Bipap FiO2 40.0 Inspiratory BiPAP 20 Expiratory BiPAP 5 Crit Value Called To Rain dailey/rn Crit Value Called By Mark larry/rt Crit Value Read Back Y Blood Gas Notified Time 535 Potassium Carbon Dioxide Anion Gap BUN Creatinine Est GFR ( Amer) Est GFR (Non-Af Amer) POC Glucose (mg/dL) 216 H Random Glucose Calcium Phosphorus Magnesium Total Bilirubin AST ALT Alkaline Phosphatase Troponin I NT-Pro-B Natriuret Pep Total Protein Albumin Globulin Albumin/Globulin Ratio TSH 3rd Generation Venous Blood Potassium Urine Color Urine Clarity Urine pH Ur Specific [place] Urine Protein Urine Glucose (UA) Urine Ketones Urine Blood Urine Nitrate Urine Bilirubin Urine Urobilinogen Ur Leukocyte Esterase Urine WBC (Auto) Urine RBC (Auto) 03/03/18 03/03/18 06:24 11:41 WBC RBC Hgb Hct MCV MCH MCHC RDW Plt Count MPV Neut % (Auto) Lymph % (Auto) [place] % (Auto) Eos % (Auto) Baso % (Auto) Neut # (Auto) Lymph # (Auto) [place] # (Auto) Eos # (Auto) Baso # (Auto) Neutrophils % (Manual) Lymphocytes % (Manual) Monocytes % (Manual) Platelet Estimate Anisocytosis (manual) PT INR APTT Puncture Site pCO2 pO2 HCO3 ABG pH ABG Total CO2 ABG O2 Saturation ABG Base Excess ABG Hemoglobin ABG Carboxyhemoglobin POC ABG HHb (Measured) ABG Methemoglobin Donta Test VBG pH VBG pCO2 VBG HCO3 VBG Total CO2 VBG O2 Sat (Calc) VBG Base Excess VBG Potassium A-a O2 Difference Respiratory Index Hgb O2 Saturation Sodium 143 Chloride 90 L Glucose Lactate Vent Mode FiO2 Inspiratory BiPAP Expiratory BiPAP Crit Value Called To Crit Value Called By Crit Value Read Back Blood Gas Notified Time Potassium 4.6 Carbon Dioxide 41 H* Anion Gap 17 BUN 17 Creatinine 0.5 L Est GFR ( Amer) > 60 Est GFR (Non-Af Amer) > 60 POC Glucose (mg/dL) 170 H Random Glucose 197 H Calcium 8.9 Phosphorus 4.1 Magnesium 2.2 Total Bilirubin 0.5 AST 13 L D ALT 17 Alkaline Phosphatase 69 Troponin I NT-Pro-B Natriuret Pep Total Protein 7.5 Albumin 4.0 Globulin 3.5 Albumin/Globulin Ratio 1.2 TSH 3rd Generation 0.04 L Venous Blood Potassium Urine Color Urine Clarity Urine pH Ur Specific [place] Urine Protein Urine Glucose (UA) Urine Ketones Urine Blood Urine Nitrate Urine Bilirubin Urine Urobilinogen Ur Leukocyte Esterase Urine WBC (Auto) Urine RBC (Auto) EKG/Cardiology Studies: Cardiology / EKG Studies 03/02/18 19:10 ELECTROCARDIOGRAM Stat Comment: Mode Of Transportation: BED Reason For Exam: chest pain Fingerstick Blood Sugar Results: 170 Review of Systems - Constitutional Constitutional: absent: Chills - EENT Eyes: UNREMARKABLE - Cardiovascular Cardiovascular: absent: Chest Pain, Dyspnea, Palpitations - Respiratory Respiratory: absent: Hemoptysis, Pain on Inspiration - Gastrointestinal Gastrointestinal: absent: Abdominal Pain Critical Care Progress Note - Prophylaxis GI Prophylaxis GI: PPI - Prophylaxis DVT Prophylaxis DVT: Lovenox - Nutrition Nutrition: Nutrition Category Date Time Status Heart Healthy Diet [DIET] Diets 03/03/18 Lunch Active Assessment/Plan - Assessment and Plan (Free Text) Assessment: 72 yo F w/ PMHx of morbid obesity, obesity hypoventilation syndrome, COPD, HTN, Parkinson's, hypothyroidism, DM and hypercapneic respiratory failure admitted [place] ICU from [place] w/ AMS 1. AMS most likely due to -Head CT-neg for acute findings -CXR-neg for acute findings -pH 7.34 w/ goal between 7.35-7.45 -pCO2 86, goal 35-45 -f/u blood cultures -TSH .04 -BiPAP, pending ABG 2. COPD-former smoker -Duonebs q4 singulair 10mg methylprednisolone 60mg q8 3. HTN -episodes of HTN overnight attributed to wrong sized cuff per tejal. Cuff adjusted and repeat BP 148/87 -Lasix 40mg 4. DM2 -ISS -heart healthy mod carb diet 5. Hypothyroid -TSH .04, Levothyroxine 150mcg Ppx -Lovenox 40sc -protonix 40mg
--- NOTE | 2018-03-03 16:44 | CP.PCM.CON ---
History of Present Illness - History of Present Illness History of Present Illness: Pulmonology consulted for COPD HPI: 72 year old female patient with past medical history of morbid obesity, COPD, hypertension, sleep apnea and diabetes presented to the ED from [facility] with complaint of altered mental status. Patient has history of multiple admissions due to hypercarbia. Patient was seen and examined this morning at bedside. Patient is awake and responsive. Patient is currently on BiPAP. Patient is in no acute distress. Patient is afebrile. Chest X-ray showed no active pulmonary disease. Patient has no acute complaints. PMH: Anemia, anxiety, arthritis, bipolar disorder, COPD, dementia, depression, hypertension, hypothryroidism, Parkinson's Disease, sleep apnea Meds: Albuterol/ Ipratropium 3 ml INH RQ4 Enoxaparin Sodium 40 mg SC Daily Furosemide 40 mg PO Daily Isosorbide Mononitrate 30 mg PO Daily Levothyroxine Sodium 150 mcg Po Daily Methylprednisolone 60 mg IVP Q8H Montelukast Sodium 10 mg PO HS Pantoprazole Sodium 40 mg PO Daily ROS: Constitutional: Patient denies fever and chills. Cardiovascular: Patient denies chest pain, palpitations. Respiratory: Patient denies shortness of breath, cough Gastrointestinal: Patient denies nausea, vomiting, diarrhea. Neurological: altered mental status Physical Exam HEENT: Atraumatic, normocephalic, mucuous membranes moist Repiratory: Clear to auscultation bilaterally. No wheezing or rhonchi. No use of accessory muscles. Cardiovascular: +S1/ S2, regular rate and rhythm GI: Normal bowel sounds in all 4 quadrants, no tenderness, no distention Extremities: No LE edema Neurological: Awake, alert, altered mental status Assessment: 72 year old female patient with past medical history of morbid obesity, COPD, hypertension, sleep apnea and diabetes; patient presentation consistent with COPD exacerbation and hypercapnea. 1. Altered Mental Status Status: Acute 2. COPD Status: Chronic - Albuterol/ Ipratropium 3 ml INH RQ4 - Methylprednisolone 60 mg IVP Q8H - Montelukast Sodium 10 mg PO HS - BiPAP 3. Hypertension Status: Chronic - Furosemide 40 mg PO Daily 4. Hypothyroid Status: Chronic - Levothyroxine Sodium 150 mcg Po Daily Past Patient History - Infectious Disease Hx of Infectious Diseases: VRE - Tetanus Immunizations Tetanus Immunization: Unknown - Past Medical History & Family History Past Medical History?: Yes - Past Social History Smoking Status: Former Smoker - CARDIAC Hx Hypertension: Yes - PULMONARY Hx Chronic Obstructive Pulmonary Disease (COPD): Yes Hx Sleep Apnea: Yes (on Bipap) - NEUROLOGICAL Hx Dementia: Yes Hx Parkinson's Disease: Yes - HEENT Hx HEENT Problems: No - RENAL Hx Chronic Kidney Disease: No - ENDOCRINE/METABOLIC Hx Hypothyroidism: Yes - HEMATOLOGICAL/ONCOLOGICAL Hx Anemia: Yes - INTEGUMENTARY Hx Dermatological Problems: No - MUSCULOSKELETAL/RHEUMATOLOGICAL Hx Arthritis: Yes - GASTROINTESTINAL Hx Gastrointestinal Disorders: Yes Hx Constipation: Yes Hx Gastroesophageal Reflux: Yes - GENITOURINARY/GYNECOLOGICAL Hx Genitourinary Disorders: Yes Hx Incontinence: Yes Hx Urinary Tract Infection: Yes - PSYCHIATRIC Hx Anxiety: Yes Hx Bipolar Disorder: Yes Hx Depression: Yes Hx Substance Use: No - SURGICAL HISTORY Hx Surgeries: Yes Hx Hysterectomy: Yes Hx Orthopedic Surgery: Yes Other/Comment: right knee replacement 2014; right knee prosthesis removal s/p infection 2014 - ANESTHESIA Hx Anesthesia: Yes Hx Anesthesia Reactions: No Hx Malignant Hyperthermia: No Meds Allergies/Adverse Reactions: Allergies Allergy/AdvReac Type Severity Reaction Status Date / Time Cephalosporins Allergy Intermediate RASH Verified 03/02/18 18:49 Penicillins Allergy Intermediate RASH Verified 03/02/18 18:49 clonazepam [From Klonopin] Allergy Verified 03/02/18 18:49 mustard Allergy Intermediate RASH Uncoded 03/02/18 18:49 - Medications Medications: Current Medications Albuterol/Ipratropium (Duoneb 3 Mg/0.5 Mg (3 Ml) Ud) 3 ml INH RQ4 [facility] Last Admin: 03/03/18 16:43 Dose: 3 ml Enoxaparin Sodium (Lovenox) 40 mg SC DAILY [facility] Last Admin: 03/03/18 10:40 Dose: 40 mg Furosemide (Lasix) 40 mg PO DAILY [facility] Last Admin: 03/03/18 10:40 Dose: 40 mg Insulin Human Regular (Novolin R) 0 unit SC [facility] PRN Reason: Protocol Isosorbide Mononitrate (Imdur Er) 30 mg PO DAILY [facility] Last Admin: 03/03/18 10:40 Dose: 30 mg Levothyroxine Sodium (Synthroid) 150 mcg PO DAILY@0630 [facility] Last Admin: 03/03/18 06:19 Dose: 150 mcg Methylprednisolone (Solu-Medrol) 60 mg IVP Q8H [facility] Last Admin: 03/03/18 10:39 Dose: 60 mg Montelukast Sodium (Singulair) 10 mg PO HS [facility] Pantoprazole Sodium (Protonix Ec Tab) 40 mg PO DAILY [facility] Last Admin: 03/03/18 10:40 Dose: 40 mg Results - Vital Signs Recent Vital Signs: Last Vital Signs Temp 99.0 F 03/03/18 16:00 Pulse 93 H 03/03/18 16:00 Resp 16 03/03/18 16:00 BP 115/93 H 03/03/18 15:36 Pulse Ox 99 03/03/18 16:00 - Labs Result Diagrams: 03/03/18 06:24 03/03/18 06:24 Labs: Laboratory Results - last 24 hr 03/02/18 03/02/18 03/02/18 10:29 18:48 19:56 WBC RBC Hgb Hct MCV MCH MCHC RDW Plt Count MPV Neut % (Auto) Lymph % (Auto) [place] % (Auto) Eos % (Auto) Baso % (Auto) Neut # (Auto) Lymph # (Auto) [place] # (Auto) Eos # (Auto) Baso # (Auto) Neutrophils % (Manual) Lymphocytes % (Manual) Monocytes % (Manual) Platelet Estimate Anisocytosis (manual) PT INR APTT Puncture Site Lra pCO2 85 H* pO2 83 21 L HCO3 38.7 H ABG pH 7.35 ABG Total CO2 49.5 H ABG O2 Saturation 98.3 H ABG Base Excess 17.7 H ABG Hemoglobin 11.0 L ABG Carboxyhemoglobin 2.3 H POC ABG HHb (Measured) 1.6 ABG Methemoglobin 0.8 D[place] Test Pos VBG pH 7.32 VBG pCO2 82 H* VBG HCO3 32.7 VBG Total CO2 44.7 H VBG O2 Sat (Calc) 38.7 L VBG Base Excess 12.3 H VBG Potassium 2.8 L A-a O2 Difference 96.0 Respiratory Index 1.2 Hgb O2 Saturation 95.3 Sodium 147.0 Chloride 106.0 Glucose 86 Lactate 0.5 L Vent Mode Bipap FiO2 40.0 Inspiratory BiPAP 12 Expiratory BiPAP 6 Crit Value Called To Er Er Crit Value Called By Rt Rt Crit Value Read Back Y Y Blood Gas Notified Time 2232 2001 Potassium Carbon Dioxide Anion Gap BUN Creatinine Est GFR ( Amer) Est GFR (Non-Af Amer) POC Glucose (mg/dL) 136 H Random Glucose Calcium Phosphorus Magnesium Total Bilirubin AST ALT Alkaline Phosphatase Troponin I NT-Pro-B Natriuret Pep Total Protein Albumin Globulin Albumin/Globulin Ratio TSH 3rd Generation Venous Blood Potassium 2.8 L Urine Color Urine Clarity Urine pH Ur Specific [place] Urine Protein Urine Glucose (UA) Urine Ketones Urine Blood Urine Nitrate Urine Bilirubin Urine Urobilinogen Ur Leukocyte Esterase Urine WBC (Auto) Urine RBC (Auto) 03/02/18 03/02/18 03/02/18 20:50 20:50 20:50 WBC 8.0 RBC 4.09 Hgb 11.3 Hct 35.9 MCV 87.7 D MCH 27.6 MCHC 31.5 L RDW 15.6 H Plt Count 189 MPV 9.9 Neut % (Auto) 60.4 Lymph % (Auto) 27.2 [place] % (Auto) 9.7 Eos % (Auto) 2.2 Baso % (Auto) 0.5 Neut # (Auto) 4.8 Lymph # (Auto) 2.2 [place] # (Auto) 0.8 Eos # (Auto) 0.2 Baso # (Auto) 0.0 Neutrophils % (Manual) Lymphocytes % (Manual) Monocytes % (Manual) Platelet Estimate Anisocytosis (manual) PT 11.0 INR 1.0 APTT 39 H Puncture Site pCO2 pO2 HCO3 ABG pH ABG Total CO2 ABG O2 Saturation ABG Base Excess ABG Hemoglobin ABG Carboxyhemoglobin POC ABG HHb (Measured) ABG Methemoglobin Donta Test VBG pH VBG pCO2 VBG HCO3 VBG Total CO2 VBG O2 Sat (Calc) VBG Base Excess VBG Potassium A-a O2 Difference Respiratory Index Hgb O2 Saturation Sodium 142 Chloride 89 L Glucose Lactate Vent Mode FiO2 Inspiratory BiPAP Expiratory BiPAP Crit Value Called To Crit Value Called By Crit Value Read Back Blood Gas Notified Time Potassium 3.8 Carbon Dioxide 45 H* D Anion Gap 12 BUN 15 Creatinine 0.7 Est GFR ( Amer) > 60 Est GFR (Non-Af Amer) > 60 POC Glucose (mg/dL) Random Glucose 115 H Calcium 8.7 Phosphorus Magnesium Total Bilirubin 0.4 AST 9 L D ALT 17 Alkaline Phosphatase 62 Troponin I < 0.0120 NT-Pro-B Natriuret Pep 61.5 Total Protein 6.8 Albumin 3.6 Globulin 3.2 Albumin/Globulin Ratio 1.1 TSH 3rd Generation Venous Blood Potassium Urine Color Urine Clarity Urine pH Ur Specific [place] Urine Protein Urine Glucose (UA) Urine Ketones Urine Blood Urine Nitrate Urine Bilirubin Urine Urobilinogen Ur Leukocyte Esterase Urine WBC (Auto) Urine RBC (Auto) 03/02/18 03/02/18 03/03/18 22:13 22:29 00:50 WBC RBC Hgb Hct MCV MCH MCHC RDW Plt Count MPV Neut % (Auto) Lymph % (Auto) [place] % (Auto) Eos % (Auto) Baso % (Auto) Neut # (Auto) Lymph # (Auto) [place] # (Auto) Eos # (Auto) Baso # (Auto) Neutrophils % (Manual) Lymphocytes % (Manual) Monocytes % (Manual) Platelet Estimate Anisocytosis (manual) PT INR APTT Puncture Site pCO2 pO2 HCO3 ABG pH ABG Total CO2 ABG O2 Saturation ABG Base Excess ABG Hemoglobin ABG Carboxyhemoglobin POC ABG HHb (Measured) ABG Methemoglobin Donta Test VBG pH VBG pCO2 VBG HCO3 VBG Total CO2 VBG O2 Sat (Calc) VBG Base Excess VBG Potassium A-a O2 Difference Respiratory Index Hgb O2 Saturation Sodium Chloride Glucose Lactate Vent Mode FiO2 Inspiratory BiPAP Expiratory BiPAP Crit Value Called To Crit Value Called By Crit Value Read Back Blood Gas Notified Time Potassium Carbon Dioxide Anion Gap BUN Creatinine Est GFR ( Amer) Est GFR (Non-Af Amer) POC Glucose (mg/dL) 134 H 174 H Random Glucose Calcium Phosphorus Magnesium Total Bilirubin AST ALT Alkaline Phosphatase Troponin I NT-Pro-B Natriuret Pep Total Protein Albumin Globulin Albumin/Globulin Ratio TSH 3rd Generation Venous Blood Potassium Urine Color Yellow Urine Clarity Clear Urine pH 6.0 Ur Specific [place] 1.016 Urine Protein 1+ H Urine Glucose (UA) Normal Urine Ketones Negative Urine Blood Negative Urine Nitrate Negative Urine Bilirubin Negative Urine Urobilinogen Normal Ur Leukocyte Esterase Neg Urine WBC (Auto) 1 Urine RBC (Auto) 1 03/03/18 03/03/18 03/03/18 05:25 05:45 06:24 WBC 10.4 RBC 4.39 Hgb 12.3 Hct 38.7 MCV 88.0 MCH 28.1 MCHC 31.9 L RDW 15.3 H Plt Count 200 MPV 10.2 Neut % (Auto) 91.0 H Lymph % (Auto) 8.3 L [place] % (Auto) 0.6 Eos % (Auto) 0.0 Baso % (Auto) 0.1 Neut # (Auto) 9.4 H Lymph # (Auto) 0.9 L [place] # (Auto) 0.1 Eos # (Auto) 0.0 Baso # (Auto) 0.0 Neutrophils % (Manual) 92 H Lymphocytes % (Manual) 7 L Monocytes % (Manual) 1 Platelet Estimate Normal Anisocytosis (manual) Slight PT INR APTT Puncture Site Lr pCO2 86 H* pO2 98 HCO3 37.6 H ABG pH 7.34 L ABG Total CO2 49.0 H ABG O2 Saturation 98.3 H ABG Base Excess 16.3 H ABG Hemoglobin 13.1 ABG Carboxyhemoglobin 1.7 H POC ABG HHb (Measured) 1.7 ABG Methemoglobin 1.0 Donta Test Pos VBG pH VBG pCO2 VBG HCO3 VBG Total CO2 VBG O2 Sat (Calc) VBG Base Excess VBG Potassium A-a O2 Difference 80.0 Respiratory Index 0.8 Hgb O2 Saturation 95.6 Sodium Chloride Glucose Lactate Vent Mode Bipap FiO2 40.0 Inspiratory BiPAP 20 Expiratory BiPAP 5 Crit Value Called To Rain dailey/rn Crit Value Called By Mark larry/rt Crit Value Read Back Y Blood Gas Notified Time 535 Potassium Carbon Dioxide Anion Gap BUN Creatinine Est GFR ( Amer) Est GFR (Non-Af Amer) POC Glucose (mg/dL) 216 H Random Glucose Calcium Phosphorus Magnesium Total Bilirubin AST ALT Alkaline Phosphatase Troponin I NT-Pro-B Natriuret Pep Total Protein Albumin Globulin Albumin/Globulin Ratio TSH 3rd Generation Venous Blood Potassium Urine Color Urine Clarity Urine pH Ur Specific [place] Urine Protein Urine Glucose (UA) Urine Ketones Urine Blood Urine Nitrate Urine Bilirubin Urine Urobilinogen Ur Leukocyte Esterase Urine WBC (Auto) Urine RBC (Auto) 03/03/18 03/03/18 03/03/18 06:24 11:41 16:04 WBC RBC Hgb Hct MCV MCH MCHC RDW Plt Count MPV Neut % (Auto) Lymph % (Auto) [place] % (Auto) Eos % (Auto) Baso % (Auto) Neut # (Auto) Lymph # (Auto) [place] # (Auto) Eos # (Auto) Baso # (Auto) Neutrophils % (Manual) Lymphocytes % (Manual) Monocytes % (Manual) Platelet Estimate Anisocytosis (manual) PT INR APTT Puncture Site pCO2 pO2 HCO3 ABG pH ABG Total CO2 ABG O2 Saturation ABG Base Excess ABG Hemoglobin ABG Carboxyhemoglobin POC ABG HHb (Measured) ABG Methemoglobin Donta Test VBG pH VBG pCO2 VBG HCO3 VBG Total CO2 VBG O2 Sat (Calc) VBG Base Excess VBG Potassium A-a O2 Difference Respiratory Index Hgb O2 Saturation Sodium 143 Chloride 90 L Glucose Lactate Vent Mode FiO2 Inspiratory BiPAP Expiratory BiPAP Crit Value Called To Crit Value Called By Crit Value Read Back Blood Gas Notified Time Potassium 4.6 Carbon Dioxide 41 H* Anion Gap 17 BUN 17 Creatinine 0.5 L Est GFR ( Amer) > 60 Est GFR (Non-Af Amer) > 60 POC Glucose (mg/dL) 170 H 233 H Random Glucose 197 H Calcium 8.9 Phosphorus 4.1 Magnesium 2.2 Total Bilirubin 0.5 AST 13 L D ALT 17 Alkaline Phosphatase 69 Troponin I NT-Pro-B Natriuret Pep Total Protein 7.5 Albumin 4.0 Globulin 3.5 Albumin/Globulin Ratio 1.2 TSH 3rd Generation 0.04 L Venous Blood Potassium Urine Color Urine Clarity Urine pH Ur Specific [place] Urine Protein Urine Glucose (UA) Urine Ketones Urine Blood Urine Nitrate Urine Bilirubin Urine Urobilinogen Ur Leukocyte Esterase Urine WBC (Auto) Urine RBC (Auto)
--- NOTE | 2018-03-03 17:15 | CP.PCM.HP ---
History of Present Illness - History of Present Illness History of Present Illness: Coverage for Dr. Lor Foster 72-year-old female with morbid obesity, hypertension, COPD, FESTUS, OHS, DM was brought from alf for worsening mental status. Review of records show that patient has had multiple hospitalizations for COPD exacerbation and hypercarbic respiratory failure. Patient's condition has improved after treatment in the emergency room and is currently in intensive care unit on BiPAP. Patient is more awake and follows simple commands. She denies any fever , chills and chest pain. Present on Admission - Present on Admission Any Indicators Present on Admission: No History of DVT/PE: No History of Uncontrolled Diabetes: No Urinary Catheter: No Decubitus Ulcer Present: No Review of Systems - Review of Systems All systems: reviewed and no additional remarkable complaints except (As mentioned in HPI) Past Patient History - Infectious Disease Hx of Infectious Diseases: VRE - Tetanus Immunizations Tetanus Immunization: Unknown - Past Medical History & Family History Past Medical History?: Yes - Past Social History Smoking Status: Former Smoker - CARDIAC Hx Hypertension: Yes - PULMONARY Hx Chronic Obstructive Pulmonary Disease (COPD): Yes Hx Sleep Apnea: Yes (on Bipap) - NEUROLOGICAL Hx Dementia: Yes Hx Parkinson's Disease: Yes - HEENT Hx HEENT Problems: No - RENAL Hx Chronic Kidney Disease: No - ENDOCRINE/METABOLIC Hx Hypothyroidism: Yes - HEMATOLOGICAL/ONCOLOGICAL Hx Anemia: Yes - INTEGUMENTARY Hx Dermatological Problems: No - MUSCULOSKELETAL/RHEUMATOLOGICAL Hx Arthritis: Yes - GASTROINTESTINAL Hx Gastrointestinal Disorders: Yes Hx Constipation: Yes Hx Gastroesophageal Reflux: Yes - GENITOURINARY/GYNECOLOGICAL Hx Genitourinary Disorders: Yes Hx Incontinence: Yes Hx Urinary Tract Infection: Yes - PSYCHIATRIC Hx Anxiety: Yes Hx Bipolar Disorder: Yes Hx Depression: Yes Hx Substance Use: No - SURGICAL HISTORY Hx Surgeries: Yes Hx Hysterectomy: Yes Hx Orthopedic Surgery: Yes Other/Comment: right knee replacement 2014; right knee prosthesis removal s/p infection 2015 - ANESTHESIA Hx Anesthesia: Yes Hx Anesthesia Reactions: No Hx Malignant Hyperthermia: No Meds Home Medications: Home Medication List Medication Instructions Recorded Confirmed Type Albuterol/Ipratropium [Duoneb 3 3 ml INH Q6H neb 03/06/18 Rx mg/0.5 mg (3 ml) UD] predniSONE [Prednisone] 10 mg PO DAILY #19 tab 03/06/18 Rx Allergies/Adverse Reactions: Allergies Allergy/AdvReac Type Severity Reaction Status Date / Time Cephalosporins Allergy Intermediate RASH Verified 03/02/18 18:49 Penicillins Allergy Intermediate RASH Verified 03/02/18 18:49 clonazepam [From Klonopin] Allergy Verified 03/02/18 18:49 mustard Allergy Intermediate RASH Uncoded 03/02/18 18:49 Physical Exam - Head Exam Head Exam: NORMAL INSPECTION - Eye Exam Eye Exam: Normal appearance - ENT Exam ENT Exam: Mucous Membranes Moist - Respiratory Exam Respiratory Exam: Decreased Breath Sounds, Prolonged Expiratory Phase, Wheezes - Cardiovascular Exam Cardiovascular Exam: REGULAR RHYTHM, +S1, +S2 - GI/Abdominal Exam GI & Abdominal Exam: Normal Bowel Sounds, Soft - Extremities Exam Extremities exam: Positive for: pedal edema - Neurological Exam Neurological exam: Alert Results - Vital Signs Recent Vital Signs: Last Vital Signs Temp 99.0 F 03/03/18 16:00 Pulse 93 H 03/03/18 16:35 Resp 12 03/03/18 16:35 BP 146/72 03/03/18 16:35 Pulse Ox 99 03/03/18 16:35 - Labs Result Diagrams: 03/03/18 06:24 03/03/18 06:24 Labs: Laboratory Results - last 24 hr 03/02/18 03/02/18 03/02/18 10:29 18:48 19:56 WBC RBC Hgb Hct MCV MCH MCHC RDW Plt Count MPV Neut % (Auto) Lymph % (Auto) [place] % (Auto) Eos % (Auto) Baso % (Auto) Neut # (Auto) Lymph # (Auto) [place] # (Auto) Eos # (Auto) Baso # (Auto) Neutrophils % (Manual) Lymphocytes % (Manual) Monocytes % (Manual) Platelet Estimate Anisocytosis (manual) PT INR APTT Puncture Site Lra pCO2 85 H* pO2 83 21 L HCO3 38.7 H ABG pH 7.35 ABG Total CO2 49.5 H ABG O2 Saturation 98.3 H ABG Base Excess 17.7 H ABG Hemoglobin 11.0 L ABG Carboxyhemoglobin 2.3 H POC ABG HHb (Measured) 1.6 ABG Methemoglobin 0.8 Donta Test Pos VBG pH 7.32 VBG pCO2 82 H* VBG HCO3 32.7 VBG Total CO2 44.7 H VBG O2 Sat (Calc) 38.7 L VBG Base Excess 12.3 H VBG Potassium 2.8 L A-a O2 Difference 96.0 Respiratory Index 1.2 Hgb O2 Saturation 95.3 Sodium 147.0 Chloride 106.0 Glucose 86 Lactate 0.5 L Vent Mode Bipap FiO2 40.0 Inspiratory BiPAP 12 Expiratory BiPAP 6 Crit Value Called To Er Er Crit Value Called By Rt Rt Crit Value Read Back Y Y Blood Gas Notified Time 2232 2001 Potassium Carbon Dioxide Anion Gap BUN Creatinine Est GFR ( Amer) Est GFR (Non-Af Amer) POC Glucose (mg/dL) 136 H Random Glucose Calcium Phosphorus Magnesium Total Bilirubin AST ALT Alkaline Phosphatase Troponin I NT-Pro-B Natriuret Pep Total Protein Albumin Globulin Albumin/Globulin Ratio TSH 3rd Generation Venous Blood Potassium 2.8 L Urine Color Urine Clarity Urine pH Ur Specific [place] Urine Protein Urine Glucose (UA) Urine Ketones Urine Blood Urine Nitrate Urine Bilirubin Urine Urobilinogen Ur Leukocyte Esterase Urine WBC (Auto) Urine RBC (Auto) 03/02/18 03/02/18 03/02/18 20:50 20:50 20:50 WBC 8.0 RBC 4.09 Hgb 11.3 Hct 35.9 MCV 87.7 D MCH 27.6 MCHC 31.5 L RDW 15.6 H Plt Count 189 MPV 9.9 Neut % (Auto) 60.4 Lymph % (Auto) 27.2 [place] % (Auto) 9.7 Eos % (Auto) 2.2 Baso % (Auto) 0.5 Neut # (Auto) 4.8 Lymph # (Auto) 2.2 [place] # (Auto) 0.8 Eos # (Auto) 0.2 Baso # (Auto) 0.0 Neutrophils % (Manual) Lymphocytes % (Manual) Monocytes % (Manual) Platelet Estimate Anisocytosis (manual) PT 11.0 INR 1.0 APTT 39 H Puncture Site pCO2 pO2 HCO3 ABG pH ABG Total CO2 ABG O2 Saturation ABG Base Excess ABG Hemoglobin ABG Carboxyhemoglobin POC ABG HHb (Measured) ABG Methemoglobin Donta Test VBG pH VBG pCO2 VBG HCO3 VBG Total CO2 VBG O2 Sat (Calc) VBG Base Excess VBG Potassium A-a O2 Difference Respiratory Index Hgb O2 Saturation Sodium 142 Chloride 89 L Glucose Lactate Vent Mode FiO2 Inspiratory BiPAP Expiratory BiPAP Crit Value Called To Crit Value Called By Crit Value Read Back Blood Gas Notified Time Potassium 3.8 Carbon Dioxide 45 H* D Anion Gap 12 BUN 15 Creatinine 0.7 Est GFR ( Amer) > 60 Est GFR (Non-Af Amer) > 60 POC Glucose (mg/dL) Random Glucose 115 H Calcium 8.7 Phosphorus Magnesium Total Bilirubin 0.4 AST 9 L D ALT 17 Alkaline Phosphatase 62 Troponin I < 0.0120 NT-Pro-B Natriuret Pep 61.5 Total Protein 6.8 Albumin 3.6 Globulin 3.2 Albumin/Globulin Ratio 1.1 TSH 3rd Generation Venous Blood Potassium Urine Color Urine Clarity Urine pH Ur Specific [place] Urine Protein Urine Glucose (UA) Urine Ketones Urine Blood Urine Nitrate Urine Bilirubin Urine Urobilinogen Ur Leukocyte Esterase Urine WBC (Auto) Urine RBC (Auto) 03/02/18 03/02/18 03/03/18 22:13 22:29 00:50 WBC RBC Hgb Hct MCV MCH MCHC RDW Plt Count MPV Neut % (Auto) Lymph % (Auto) [place] % (Auto) Eos % (Auto) Baso % (Auto) Neut # (Auto) Lymph # (Auto) [place] # (Auto) Eos # (Auto) Baso # (Auto) Neutrophils % (Manual) Lymphocytes % (Manual) Monocytes % (Manual) Platelet Estimate Anisocytosis (manual) PT INR APTT Puncture Site pCO2 pO2 HCO3 ABG pH ABG Total CO2 ABG O2 Saturation ABG Base Excess ABG Hemoglobin ABG Carboxyhemoglobin POC ABG HHb (Measured) ABG Methemoglobin Donta Test VBG pH VBG pCO2 VBG HCO3 VBG Total CO2 VBG O2 Sat (Calc) VBG Base Excess VBG Potassium A-a O2 Difference Respiratory Index Hgb O2 Saturation Sodium Chloride Glucose Lactate Vent Mode FiO2 Inspiratory BiPAP Expiratory BiPAP Crit Value Called To Crit Value Called By Crit Value Read Back Blood Gas Notified Time Potassium Carbon Dioxide Anion Gap BUN Creatinine Est GFR ( Amer) Est GFR (Non-Af Amer) POC Glucose (mg/dL) 134 H 174 H Random Glucose Calcium Phosphorus Magnesium Total Bilirubin AST ALT Alkaline Phosphatase Troponin I NT-Pro-B Natriuret Pep Total Protein Albumin Globulin Albumin/Globulin Ratio TSH 3rd Generation Venous Blood Potassium Urine Color Yellow Urine Clarity Clear Urine pH 6.0 Ur Specific [place] 1.016 Urine Protein 1+ H Urine Glucose (UA) Normal Urine Ketones Negative Urine Blood Negative Urine Nitrate Negative Urine Bilirubin Negative Urine Urobilinogen Normal Ur Leukocyte Esterase Neg Urine WBC (Auto) 1 Urine RBC (Auto) 1 03/03/18 03/03/18 03/03/18 05:25 05:45 06:24 WBC 10.4 RBC 4.39 Hgb 12.3 Hct 38.7 MCV 88.0 MCH 28.1 MCHC 31.9 L RDW 15.3 H Plt Count 200 MPV 10.2 Neut % (Auto) 91.0 H Lymph % (Auto) 8.3 L [place] % (Auto) 0.6 Eos % (Auto) 0.0 Baso % (Auto) 0.1 Neut # (Auto) 9.4 H Lymph # (Auto) 0.9 L [place] # (Auto) 0.1 Eos # (Auto) 0.0 Baso # (Auto) 0.0 Neutrophils % (Manual) 92 H Lymphocytes % (Manual) 7 L Monocytes % (Manual) 1 Platelet Estimate Normal Anisocytosis (manual) Slight PT INR APTT Puncture Site Lr pCO2 86 H* pO2 98 HCO3 37.6 H ABG pH 7.34 L ABG Total CO2 49.0 H ABG O2 Saturation 98.3 H ABG Base Excess 16.3 H ABG Hemoglobin 13.1 ABG Carboxyhemoglobin 1.7 H POC ABG HHb (Measured) 1.7 ABG Methemoglobin 1.0 Donta Test Pos VBG pH VBG pCO2 VBG HCO3 VBG Total CO2 VBG O2 Sat (Calc) VBG Base Excess VBG Potassium A-a O2 Difference 80.0 Respiratory Index 0.8 Hgb O2 Saturation 95.6 Sodium Chloride Glucose Lactate Vent Mode Bipap FiO2 40.0 Inspiratory BiPAP 20 Expiratory BiPAP 5 Crit Value Called To Rain dailey/rn Crit Value Called By Mark larry/rt Crit Value Read Back Y Blood Gas Notified Time 535 Potassium Carbon Dioxide Anion Gap BUN Creatinine Est GFR ( Amer) Est GFR (Non-Af Amer) POC Glucose (mg/dL) 216 H Random Glucose Calcium Phosphorus Magnesium Total Bilirubin AST ALT Alkaline Phosphatase Troponin I NT-Pro-B Natriuret Pep Total Protein Albumin Globulin Albumin/Globulin Ratio TSH 3rd Generation Venous Blood Potassium Urine Color Urine Clarity Urine pH Ur Specific [place] Urine Protein Urine Glucose (UA) Urine Ketones Urine Blood Urine Nitrate Urine Bilirubin Urine Urobilinogen Ur Leukocyte Esterase Urine WBC (Auto) Urine RBC (Auto) 03/03/18 03/03/18 03/03/18 06:24 11:41 16:04 WBC RBC Hgb Hct MCV MCH MCHC RDW Plt Count MPV Neut % (Auto) Lymph % (Auto) [place] % (Auto) Eos % (Auto) Baso % (Auto) Neut # (Auto) Lymph # (Auto) [place] # (Auto) Eos # (Auto) Baso # (Auto) Neutrophils % (Manual) Lymphocytes % (Manual) Monocytes % (Manual) Platelet Estimate Anisocytosis (manual) PT INR APTT Puncture Site pCO2 pO2 HCO3 ABG pH ABG Total CO2 ABG O2 Saturation ABG Base Excess ABG Hemoglobin ABG Carboxyhemoglobin POC ABG HHb (Measured) ABG Methemoglobin Donta Test VBG pH VBG pCO2 VBG HCO3 VBG Total CO2 VBG O2 Sat (Calc) VBG Base Excess VBG Potassium A-a O2 Difference Respiratory Index Hgb O2 Saturation Sodium 143 Chloride 90 L Glucose Lactate Vent Mode FiO2 Inspiratory BiPAP Expiratory BiPAP Crit Value Called To Crit Value Called By Crit Value Read Back Blood Gas Notified Time Potassium 4.6 Carbon Dioxide 41 H* Anion Gap 17 BUN 17 Creatinine 0.5 L Est GFR ( Amer) > 60 Est GFR (Non-Af Amer) > 60 POC Glucose (mg/dL) 170 H 233 H Random Glucose 197 H Calcium 8.9 Phosphorus 4.1 Magnesium 2.2 Total Bilirubin 0.5 AST 13 L D ALT 17 Alkaline Phosphatase 69 Troponin I NT-Pro-B Natriuret Pep Total Protein 7.5 Albumin 4.0 Globulin 3.5 Albumin/Globulin Ratio 1.2 TSH 3rd Generation 0.04 L Venous Blood Potassium Urine Color Urine Clarity Urine pH Ur Specific [place] Urine Protein Urine Glucose (UA) Urine Ketones Urine Blood Urine Nitrate Urine Bilirubin Urine Urobilinogen Ur Leukocyte Esterase Urine WBC (Auto) Urine RBC (Auto) Assessment & Plan (1) COPD exacerbation Status: Acute (2) Acute respiratory acidosis Status: Acute Priority: High (3) Acute respiratory failure with hypoxia and hypercapnia Status: Acute (4) Altered mental status Status: Acute (5) Diabetes Status: Chronic (6) HTN (hypertension) Status: Chronic (7) FESTUS (obstructive sleep apnea) Status: Chronic - Assessment and Plan (Free Text) Plan: Continue BiPAP Bronchodilators IV steroids Advair 250/50 micrograms 1 puff twice a day Accu-Chek Insulin coverage Blood pressure control DVT/GI prophylaxis
[2018-03-04] MEDS: Albuterol-Ipratrop 3 mg / 0.5 (3 ml) UD INH SCH ×7 (00:05→23:38)
[2018-03-04] MEDS: Levothyroxine 150 MCG TAB PO SCH (05:35)
[2018-03-04] MEDS: (Novolin R) Insulin Human Regular 100 units/ml vial SC SCH ×4 (08:26→21:45)
[2018-03-04] MEDS: MethylPREDNISolone 40 mg Vial IVP SCH ×3 (08:26→16:36)
[2018-03-04] MEDS: Enoxaparin 40 mg Syringe SC SCH (10:38)
[2018-03-04] MEDS: Pantoprazole 40 mg EC Tab PO SCH (10:38)
[2018-03-04 15:54] VITALS: RESP 20
--- NOTE | 2018-03-04 16:44 | CP.PCM.PN ---
Subjective - Date & Time of Evaluation Date of Evaluation: 03/04/18 Time of Evaluation: 12:30 - Subjective Subjective: Patient was seen and examined this morning at bedside. Patient is awake and reponsive. Patient continues on BiPAP. Patient is in no acute distress. Patient is afebrile. Patient has no acute complaints. PMH: Anemia, anxiety, arthritis, bipolar disorder, COPD, dementia, depression, hypertension, hypothryroidism, Parkinson's Disease, sleep apnea ROS: Constitutional: Patient denies fever and chills. Cardiovascular: Patient denies chest pain, palpitations. Respiratory: Patient denies shortness of breath, cough Gastrointestinal: Patient denies nausea, vomiting, diarrhea. Neurological: altered mental status Physical Exam HEENT: Atraumatic, normocephalic, mucuous membranes moist Repiratory: Clear to auscultation bilaterally. No wheezing or rhonchi. No use of accessory muscles. Cardiovascular: +S1/ S2, regular rate and rhythm GI: Normal bowel sounds in all 4 quadrants, no tenderness, no distention Extremities: No LE edema Neurological: Awake, alert, altered mental status Assessment: 72 year old female patient with past medical history of morbid obesity, COPD, hypertension, sleep apnea and diabetes; patient presentation consistent with COPD exacerbation and hypercapnea. 1. Altered Mental Status Status: Acute 2. COPD Status: Chronic - Albuterol/ Ipratropium 3 ml INH RQ4 - Methylprednisolone 60 mg IVP Q8H - Montelukast Sodium 10 mg PO HS - BiPAP 3. Hypertension Status: Chronic - Furosemide 40 mg PO Daily 4. Hypothyroid Status: Chronic - Levothyroxine Sodium 150 mcg Po Daily Objective - Vital Signs/Intake and Output Vital Signs (last 24 hours): Temp Pulse Resp BP Pulse Ox 98.0 F 83 20 117/79 98 03/04/18 15:00 03/04/18 15:00 03/04/18 15:00 03/04/18 15:00 03/04/18 15:00 Intake and Output: 03/04/18 03/04/18 06:59 18:59 Intake Total 480 0 Output Total 200 Balance 280 0 - Medications Medications: Current Medications Albuterol/Ipratropium (Duoneb 3 Mg/0.5 Mg (3 Ml) Ud) 3 ml INH RQ4 [facility] Last Admin: 03/04/18 16:07 Dose: 3 ml Enoxaparin Sodium (Lovenox) 40 mg SC DAILY [facility] Last Admin: 03/04/18 10:38 Dose: 40 mg Furosemide (Lasix) 40 mg PO DAILY [facility] Last Admin: 03/04/18 10:38 Dose: 40 mg Insulin Human Regular (Novolin R) 0 unit SC [facility] PRN Reason: Protocol Last Admin: 03/04/18 16:35 Dose: 4 units Isosorbide Mononitrate (Imdur Er) 30 mg PO DAILY [facility] Last Admin: 03/04/18 10:38 Dose: 30 mg Levothyroxine Sodium (Synthroid) 150 mcg PO DAILY@0630 [facility] Last Admin: 03/04/18 05:35 Dose: 150 mcg Methylprednisolone (Solu-Medrol) 60 mg IVP Q8H [facility] Last Admin: 03/04/18 16:36 Dose: 60 mg Montelukast Sodium (Singulair) 10 mg PO HS [facility] Last Admin: 03/03/18 21:15 Dose: 10 mg Pantoprazole Sodium (Protonix Ec Tab) 40 mg PO DAILY [facility] Last Admin: 03/04/18 10:38 Dose: 40 mg - Labs Labs: 03/03/18 06:24 03/03/18 06:24 PT 11.0 SECONDS (9.7-12.2) 03/02/18 20:50 INR 1.0 03/02/18 20:50 APTT 39 SECONDS (21-34) H 03/02/18 20:50
--- NOTE | 2018-03-04 18:33 | CP.PCM.PN ---
Subjective - Date & Time of Evaluation Date of Evaluation: 03/04/18 Time of Evaluation: 18:33 - Subjective Subjective: Patient seen and examined More awake and alert Off BiPAP Objective - Vital Signs/Intake and Output Vital Signs (last 24 hours): Temp Pulse Resp BP Pulse Ox 98.0 F 83 20 117/79 98 03/04/18 15:00 03/04/18 15:00 03/04/18 15:00 03/04/18 15:00 03/04/18 15:00 Intake and Output: 03/04/18 03/04/18 06:59 18:59 Intake Total 480 0 Output Total 200 Balance 280 0 - Medications Medications: Current Medications Albuterol/Ipratropium (Duoneb 3 Mg/0.5 Mg (3 Ml) Ud) 3 ml INH RQ4 [facility] Last Admin: 03/04/18 16:07 Dose: 3 ml Enoxaparin Sodium (Lovenox) 40 mg SC DAILY [facility] Last Admin: 03/04/18 10:38 Dose: 40 mg Furosemide (Lasix) 40 mg PO DAILY [facility] Last Admin: 03/04/18 10:38 Dose: 40 mg Insulin Human Regular (Novolin R) 0 unit SC [facility] PRN Reason: Protocol Last Admin: 03/04/18 16:35 Dose: 4 units Isosorbide Mononitrate (Imdur Er) 30 mg PO DAILY [facility] Last Admin: 03/04/18 10:38 Dose: 30 mg Levothyroxine Sodium (Synthroid) 150 mcg PO DAILY@0630 [facility] Last Admin: 03/04/18 05:35 Dose: 150 mcg Methylprednisolone (Solu-Medrol) 60 mg IVP Q8H [facility] Last Admin: 03/04/18 16:36 Dose: 60 mg Montelukast Sodium (Singulair) 10 mg PO HS [facility] Last Admin: 03/03/18 21:15 Dose: 10 mg Pantoprazole Sodium (Protonix Ec Tab) 40 mg PO DAILY [facility] Last Admin: 03/04/18 10:38 Dose: 40 mg - Labs Labs: 03/03/18 06:24 03/03/18 06:24 PT 11.0 SECONDS (9.7-12.2) 03/02/18 20:50 INR 1.0 03/02/18 20:50 APTT 39 SECONDS (21-34) H 03/02/18 20:50 - Head Exam Head Exam: NORMAL INSPECTION - Eye Exam Eye Exam: Normal appearance - ENT Exam ENT Exam: Mucous Membranes Moist - Respiratory Exam Respiratory Exam: Decreased Breath Sounds, Prolonged Expiratory Phase - Cardiovascular Exam Cardiovascular Exam: REGULAR RHYTHM, +S1, +S2 - GI/Abdominal Exam GI & Abdominal Exam: Soft, Normal Bowel Sounds - Extremities Exam Extremities Exam: Pedal Edema - Neurological Exam Neurological Exam: Alert, Oriented x3 Assessment and Plan (1) Acute respiratory failure with hypoxia and hypercapnia Status: Acute (2) Altered mental status Status: Acute (3) COPD exacerbation Status: Acute (4) Diabetes Status: Chronic (5) HTN (hypertension) Status: Chronic (6) FESTUS (obstructive sleep apnea) Status: Chronic - Assessment and Plan (Free Text) Plan: BiPAP as needed Bronchodilators Steroids Advair 250/50 micrograms 1 puff twice a day Accu-Chek Insulin coverage Blood pressure control DVT/GI prophylaxis
[2018-03-05] MEDS: MethylPREDNISolone 40 mg Vial IVP SCH ×3 (00:32→17:21)
[2018-03-05] MEDS: Albuterol-Ipratrop 3 mg / 0.5 (3 ml) UD INH SCH ×6 (03:09→23:28)
[2018-03-05] MEDS: Levothyroxine 150 MCG TAB PO SCH (05:54)
[2018-03-05] MEDS: (Novolin R) Insulin Human Regular 100 units/ml vial SC SCH ×4 (08:30→21:30)
[2018-03-05] MEDS: Pantoprazole 40 mg EC Tab PO SCH (09:04)
[2018-03-05] MEDS: Enoxaparin 40 mg Syringe SC SCH (09:04)
--- NOTE | 2018-03-05 16:26 | CP.PCM.PN ---
Subjective - Date & Time of Evaluation Date of Evaluation: 03/05/18 Time of Evaluation: 11:15 - Subjective Subjective: : Patient was seen and examined this morning at bedside. Patient is awake and reponsive. Patient continues on BiPAP. Patient is in no acute distress. Patient had no acute events overnight. Patient is afebrile. Patient has no acute complaints. PMH: Anemia, anxiety, arthritis, bipolar disorder, COPD, dementia, depression, hypertension, hypothryroidism, Parkinson's Disease, sleep apnea ROS: Constitutional: Patient denies fever and chills. Cardiovascular: Patient denies chest pain, palpitations. Respiratory: Patient denies shortness of breath, cough Gastrointestinal: Patient denies nausea, vomiting, diarrhea. Neurological: altered mental status Physical Exam HEENT: Atraumatic, normocephalic, mucuous membranes moist Repiratory: Clear to auscultation bilaterally. No wheezing or rhonchi. No use of accessory muscles. Cardiovascular: +S1/ S2, regular rate and rhythm GI: Normal bowel sounds in all 4 quadrants, no tenderness, no distention Extremities: No LE edema Neurological: Awake, alert, altered mental status Assessment: 72 year old female patient with past medical history of morbid obesity, COPD, hypertension, sleep apnea and diabetes; patient presentation consistent with COPD exacerbation and hypercapnea. 1. Altered Mental Status Status: Acute 2. COPD Status: Chronic - Albuterol/ Ipratropium 3 ml INH RQ4 - Methylprednisolone 60 mg IVP Q8H - Montelukast Sodium 10 mg PO HS - BiPAP 3. Hypertension Status: Chronic - Furosemide 40 mg PO Daily 4. Hypothyroid Status: Chronic - Levothyroxine Sodium 150 mcg Po Daily Objective - Vital Signs/Intake and Output Vital Signs (last 24 hours): Temp Pulse Resp BP Pulse Ox 98.2 F 81 20 143/83 100 03/05/18 15:36 03/05/18 15:47 03/05/18 15:36 03/05/18 15:36 03/05/18 15:36 Intake and Output: 03/05/18 03/05/18 06:59 18:59 Output Total 1800 Balance -1800 - Medications Medications: Current Medications Albuterol/Ipratropium (Duoneb 3 Mg/0.5 Mg (3 Ml) Ud) 3 ml INH RQ4 [facility] Last Admin: 03/05/18 16:21 Dose: 3 ml Enoxaparin Sodium (Lovenox) 40 mg SC DAILY [facility] Last Admin: 03/05/18 09:04 Dose: 40 mg Furosemide (Lasix) 40 mg PO DAILY [facility] Last Admin: 03/05/18 09:04 Dose: 40 mg Gabapentin (Neurontin) 300 mg PO BID [facility] Last Admin: 03/05/18 09:04 Dose: 300 mg Insulin Human Regular (Novolin R) 0 unit SC [facility] PRN Reason: Protocol Last Admin: 03/05/18 12:23 Dose: Not Given Isosorbide Mononitrate (Imdur Er) 30 mg PO DAILY [facility] Last Admin: 03/05/18 09:04 Dose: 30 mg Levothyroxine Sodium (Synthroid) 150 mcg PO DAILY@0630 [facility] Last Admin: 03/05/18 05:54 Dose: 150 mcg Methylprednisolone (Solu-Medrol) 60 mg IVP Q8H [facility] Last Admin: 03/05/18 09:10 Dose: 60 mg Montelukast Sodium (Singulair) 10 mg PO HS [facility] Last Admin: 03/04/18 21:51 Dose: 10 mg Pantoprazole Sodium (Protonix Ec Tab) 40 mg PO DAILY [facility] Last Admin: 03/05/18 09:04 Dose: 40 mg - Labs Labs: 03/03/18 06:24 03/03/18 06:24 PT 11.0 SECONDS (9.7-12.2) 03/02/18 20:50 INR 1.0 03/02/18 20:50 APTT 39 SECONDS (21-34) H 03/02/18 20:50
--- NOTE | 2018-03-05 16:36 | CP.PCM.PN ---
Subjective - Date & Time of Evaluation Date of Evaluation: 03/05/18 Time of Evaluation: 16:35 - Subjective Subjective: Patient seen and examined No events overnight Reports improved dyspnea Objective - Vital Signs/Intake and Output Vital Signs (last 24 hours): Temp Pulse Resp BP Pulse Ox 98.2 F 81 20 143/83 100 03/05/18 15:36 03/05/18 15:47 03/05/18 15:36 03/05/18 15:36 03/05/18 15:36 Intake and Output: 03/05/18 03/05/18 06:59 18:59 Output Total 1800 Balance -1800 - Medications Medications: Current Medications Albuterol/Ipratropium (Duoneb 3 Mg/0.5 Mg (3 Ml) Ud) 3 ml INH RQ4 [facility] Last Admin: 03/05/18 16:21 Dose: 3 ml Enoxaparin Sodium (Lovenox) 40 mg SC DAILY [facility] Last Admin: 03/05/18 09:04 Dose: 40 mg Furosemide (Lasix) 40 mg PO DAILY [facility] Last Admin: 03/05/18 09:04 Dose: 40 mg Gabapentin (Neurontin) 300 mg PO BID [facility] Last Admin: 03/05/18 09:04 Dose: 300 mg Insulin Human Regular (Novolin R) 0 unit SC [facility] PRN Reason: Protocol Last Admin: 03/05/18 12:23 Dose: Not Given Isosorbide Mononitrate (Imdur Er) 30 mg PO DAILY [facility] Last Admin: 03/05/18 09:04 Dose: 30 mg Levothyroxine Sodium (Synthroid) 150 mcg PO DAILY@0630 [facility] Last Admin: 03/05/18 05:54 Dose: 150 mcg Methylprednisolone (Solu-Medrol) 60 mg IVP Q8H [facility] Last Admin: 03/05/18 09:10 Dose: 60 mg Montelukast Sodium (Singulair) 10 mg PO HS [facility] Last Admin: 03/04/18 21:51 Dose: 10 mg Pantoprazole Sodium (Protonix Ec Tab) 40 mg PO DAILY [facility] Last Admin: 03/05/18 09:04 Dose: 40 mg - Labs Labs: 03/03/18 06:24 03/03/18 06:24 PT 11.0 SECONDS (9.7-12.2) 03/02/18 20:50 INR 1.0 03/02/18 20:50 APTT 39 SECONDS (21-34) H 03/02/18 20:50 - Head Exam Head Exam: NORMAL INSPECTION - Eye Exam Eye Exam: Normal appearance - ENT Exam ENT Exam: Mucous Membranes Moist - Respiratory Exam Respiratory Exam: Decreased Breath Sounds - Cardiovascular Exam Cardiovascular Exam: REGULAR RHYTHM - GI/Abdominal Exam GI & Abdominal Exam: Soft, Normal Bowel Sounds - Extremities Exam Extremities Exam: Pedal Edema - Neurological Exam Neurological Exam: Alert, Oriented x3 Assessment and Plan (1) Acute respiratory failure with hypercapnia Status: Acute (2) Altered mental status Status: Acute (3) COPD exacerbation Status: Acute (4) Diabetes Status: Chronic (5) HTN (hypertension) Status: Chronic (6) FESTUS (obstructive sleep apnea) Status: Chronic - Assessment and Plan (Free Text) Plan: BiPAP at night Bronchodilators IV steroids Advair 250/50 micrograms 1 puff twice a day Accu-Chek Insulin coverage Lasix DVT/GI prophylaxis
[2018-03-06] MEDS: MethylPREDNISolone 40 mg Vial IVP SCH ×3 (00:13→17:19)
[2018-03-06] MEDS: Albuterol-Ipratrop 3 mg / 0.5 (3 ml) UD INH SCH ×4 (03:19→16:13)
[2018-03-06] MEDS: Levothyroxine 150 MCG TAB PO SCH (05:43)
[2018-03-06] MEDS: (Novolin R) Insulin Human Regular 100 units/ml vial SC SCH ×3 (09:08→17:19)
[2018-03-06] MEDS: Pantoprazole 40 mg EC Tab PO SCH (09:09)
[2018-03-06] MEDS: Enoxaparin 40 mg Syringe SC SCH (09:09)
--- NOTE | 2018-03-06 14:32 | CP.PCM.PN ---
Subjective - Date & Time of Evaluation Date of Evaluation: 03/06/18 Time of Evaluation: 07:15 - Subjective Subjective: Clinically same Objective - Vital Signs/Intake and Output Vital Signs (last 24 hours): Temp Pulse Resp BP Pulse Ox 97.9 F 66 20 178/92 H 98 03/06/18 08:00 03/06/18 08:00 03/06/18 08:00 03/06/18 09:09 03/06/18 08:00 Intake and Output: 03/06/18 03/06/18 06:59 18:59 Intake Total 500 Output Total 400 Balance 100 - Medications Medications: Current Medications Albuterol/Ipratropium (Duoneb 3 Mg/0.5 Mg (3 Ml) Ud) 3 ml INH RQ4 [facility] Last Admin: 03/06/18 11:30 Dose: 3 ml Enoxaparin Sodium (Lovenox) 40 mg SC DAILY [facility] Last Admin: 03/06/18 09:09 Dose: 40 mg Furosemide (Lasix) 40 mg PO DAILY [facility] Last Admin: 03/06/18 09:09 Dose: 40 mg Gabapentin (Neurontin) 300 mg PO BID [facility] Last Admin: 03/06/18 09:09 Dose: 300 mg Insulin Human Regular (Novolin R) 0 unit SC [facility] PRN Reason: Protocol Last Admin: 03/06/18 12:19 Dose: 10 units Isosorbide Mononitrate (Imdur Er) 30 mg PO DAILY [facility] Last Admin: 03/06/18 09:09 Dose: 30 mg Levothyroxine Sodium (Synthroid) 150 mcg PO DAILY@0630 [facility] Last Admin: 03/06/18 05:43 Dose: 150 mcg Methylprednisolone (Solu-Medrol) 60 mg IVP Q8H [facility] Last Admin: 03/06/18 09:08 Dose: 60 mg Montelukast Sodium (Singulair) 10 mg PO HS [facility] Last Admin: 03/05/18 21:30 Dose: 10 mg Pantoprazole Sodium (Protonix Ec Tab) 40 mg PO DAILY [facility] Last Admin: 03/06/18 09:09 Dose: 40 mg - Labs Labs: 03/03/18 06:24 03/03/18 06:24 PT 11.0 SECONDS (9.7-12.2) 03/02/18 20:50 INR 1.0 03/02/18 20:50 APTT 39 SECONDS (21-34) H 03/02/18 20:50 - Constitutional Appears: Well - Head Exam Head Exam: ATRAUMATIC, NORMAL INSPECTION, NORMOCEPHALIC - Eye Exam Eye Exam: EOMI, Normal appearance, PERRL Pupil Exam: NORMAL ACCOMODATION, PERRL - ENT Exam ENT Exam: Mucous Membranes Moist, Normal Exam - Neck Exam Neck Exam: Full ROM, Normal Inspection. absent: Lymphadenopathy - Respiratory Exam Respiratory Exam: Decreased Breath Sounds - Cardiovascular Exam Cardiovascular Exam: REGULAR RHYTHM, +S1, +S2 - GI/Abdominal Exam GI & Abdominal Exam: Soft, Diminished Bowel Sounds - Rectal Exam Rectal Exam: Deferred
--- NOTE | 2018-03-06 14:55 | CP.PCM.PN ---
Subjective - Date & Time of Evaluation Date of Evaluation: 03/06/18 Time of Evaluation: 11:00 - Subjective Subjective: awake, alert, follows commands, no acute distress. Objective - Vital Signs/Intake and Output Vital Signs (last 24 hours): Temp Pulse Resp BP Pulse Ox 97.9 F 66 20 178/92 H 98 03/06/18 08:00 03/06/18 08:00 03/06/18 08:00 03/06/18 09:09 03/06/18 08:00 Intake and Output: 03/06/18 03/06/18 06:59 18:59 Intake Total 500 360 Output Total 400 200 Balance 100 160 - Medications Medications: Current Medications Albuterol/Ipratropium (Duoneb 3 Mg/0.5 Mg (3 Ml) Ud) 3 ml INH RQ4 [facility] Last Admin: 03/06/18 11:30 Dose: 3 ml Enoxaparin Sodium (Lovenox) 40 mg SC DAILY [facility] Last Admin: 03/06/18 09:09 Dose: 40 mg Furosemide (Lasix) 40 mg PO DAILY [facility] Last Admin: 03/06/18 09:09 Dose: 40 mg Gabapentin (Neurontin) 300 mg PO BID [facility] Last Admin: 03/06/18 09:09 Dose: 300 mg Insulin Human Regular (Novolin R) 0 unit SC [facility] PRN Reason: Protocol Last Admin: 03/06/18 12:19 Dose: 10 units Isosorbide Mononitrate (Imdur Er) 30 mg PO DAILY [facility] Last Admin: 03/06/18 09:09 Dose: 30 mg Levothyroxine Sodium (Synthroid) 150 mcg PO DAILY@0630 [facility] Last Admin: 03/06/18 05:43 Dose: 150 mcg Methylprednisolone (Solu-Medrol) 60 mg IVP Q8H [facility] Last Admin: 03/06/18 09:08 Dose: 60 mg Montelukast Sodium (Singulair) 10 mg PO HS [facility] Last Admin: 03/05/18 21:30 Dose: 10 mg Pantoprazole Sodium (Protonix Ec Tab) 40 mg PO DAILY [facility] Last Admin: 03/06/18 09:09 Dose: 40 mg - Labs Labs: 03/03/18 06:24 03/03/18 06:24 PT 11.0 SECONDS (9.7-12.2) 03/02/18 20:50 INR 1.0 03/02/18 20:50 APTT 39 SECONDS (21-34) H 03/02/18 20:50 Assessment and Plan - Assessment and Plan (Free Text) Assessment: 72 yr old female admitted from [facility] with COPD exacerbation, seen and examined. Denies sob or chest pains, no acute distress. Discussed with DR Valdivia, plan to discharge back to [place], patient in stable condition.
[2018-03-06 16:18] VITALS: BP 168/92; PULSE 80; TEMP 98.9; O2SAT 97
--- NOTE | 2018-03-06 16:19 | CP.PCM.PN ---
Subjective - Date & Time of Evaluation Date of Evaluation: 03/06/18 Time of Evaluation: 10:00 - Subjective Subjective: Patient was seen and examined this morning at bedside. Patient is awake and responsive. Patient was found comfortably laying in bed eating breakfast. Patient continues on BiPAP. Patient is in no acute distress. Patient had no acute events overnight. Patient is afebrile. Patient has no acute complaints. Patient can be discharged home. PMH: Anemia, anxiety, arthritis, bipolar disorder, COPD, dementia, depression, hypertension, hypothryroidism, Parkinson's Disease, sleep apnea ROS: Constitutional: Patient denies fever and chills. Cardiovascular: Patient denies chest pain, palpitations. Respiratory: Patient denies shortness of breath, cough Gastrointestinal: Patient denies nausea, vomiting, diarrhea. Neurological: altered mental status Physical Exam HEENT: Atraumatic, normocephalic, mucuous membranes moist Repiratory: Clear to auscultation bilaterally. No wheezing or rhonchi. No use of accessory muscles. Cardiovascular: +S1/ S2, regular rate and rhythm GI: Normal bowel sounds in all 4 quadrants, no tenderness, no distention Extremities: No LE edema Neurological: Awake, alert, altered mental status Assessment: 72 year old female patient with past medical history of morbid obesity, COPD, hypertension, sleep apnea and diabetes; patient presentation consistent with COPD exacerbation and hypercapnea. 1. Altered Mental Status Status: Acute 2. COPD Status: Chronic - Albuterol/ Ipratropium 3 ml INH RQ4 - Methylprednisolone 60 mg IVP Q8H - Montelukast Sodium 10 mg PO HS - BiPAP 3. Hypertension Status: Chronic - Furosemide 40 mg PO Daily 4. Hypothyroid Status: Chronic - Levothyroxine Sodium 150 mcg Po Daily Objective - Vital Signs/Intake and Output Vital Signs (last 24 hours): Temp Pulse Resp BP Pulse Ox 98.9 F 80 20 168/92 H 97 03/06/18 15:16 03/06/18 15:16 03/06/18 15:16 03/06/18 15:16 03/06/18 15:16 Intake and Output: 03/06/18 03/06/18 06:59 18:59 Intake Total 500 360 Output Total 400 200 Balance 100 160 - Medications Medications: Current Medications Albuterol/Ipratropium (Duoneb 3 Mg/0.5 Mg (3 Ml) Ud) 3 ml INH RQ4 [facility] Last Admin: 03/06/18 16:13 Dose: 3 ml Enoxaparin Sodium (Lovenox) 40 mg SC DAILY [facility] Last Admin: 03/06/18 09:09 Dose: 40 mg Furosemide (Lasix) 40 mg PO DAILY [facility] Last Admin: 03/06/18 09:09 Dose: 40 mg Gabapentin (Neurontin) 300 mg PO BID [facility] Last Admin: 03/06/18 09:09 Dose: 300 mg Insulin Human Regular (Novolin R) 0 unit SC [facility] PRN Reason: Protocol Last Admin: 03/06/18 12:19 Dose: 10 units Isosorbide Mononitrate (Imdur Er) 30 mg PO DAILY [facility] Last Admin: 03/06/18 09:09 Dose: 30 mg Levothyroxine Sodium (Synthroid) 150 mcg PO DAILY@0630 [facility] Last Admin: 03/06/18 05:43 Dose: 150 mcg Methylprednisolone (Solu-Medrol) 60 mg IVP Q8H [facility] Last Admin: 03/06/18 09:08 Dose: 60 mg Montelukast Sodium (Singulair) 10 mg PO HS [facility] Last Admin: 03/05/18 21:30 Dose: 10 mg Pantoprazole Sodium (Protonix Ec Tab) 40 mg PO DAILY [facility] Last Admin: 03/06/18 09:09 Dose: 40 mg Pneumococcal Polyvalent Vaccine (Pneumovax 23 Vaccine) 0.5 ml IM .ONCE ONE Stop: 03/06/18 16:31 - Labs Labs: 03/03/18 06:24 03/03/18 06:24 PT 11.0 SECONDS (9.7-12.2) 03/02/18 20:50 INR 1.0 03/02/18 20:50 APTT 39 SECONDS (21-34) H 03/02/18 20:50
[2018-03-06] MEDS ORDERED: Pneumococcal 23-Valent Vaccine IM ONE (16:30)
--- NOTE | 2018-03-07 16:18 | PQF ---
PROVIDER RESPONSE TEXT: Metabolic Encephalopathy REVIEWER QUERY TEXT: Encephalopathy Type -- Metabolic -- Other, please specify The patient's Clinical Indicators include: ?72 year old female with a PMHx of morbid obesity, COPD, HTN, Sleep apnea, and diabetes, presents to the ED from the shelter with altered mental status. As per shelter, patient has numerous vi sits to the ER for hypercarbia?. CO2: 45/41 V/S: Temp 98.4 F Pulse 74 Resp 22 BP 147/58 L Pulse Ox 100 BMI: 52.3 Appears: Non-toxic, No Acute Distress, Obese Cardiovascular: Rhythm Regular Respiratory: Diminished breath sounds symmetrically Blood Gas: pCO2 85mmHg/86mmhg Please consider verify and document Metabolic Encephalopathy, if agree. Query created by: Timmy Galaviz on 03/04/2018 11:09 AM PROVIDER RESPONSE TEXT: Acute on Chronic Respiratory Failure with hypercapnia REVIEWER QUERY TEXT: Respiratory Failure Acuity and Type Please specify the type and acuity (includes suspected or probable) Such as: -- Acute respiratory failure - With hypoxia - With hypercapnia -- Chronic respiratory failure - With hypoxia - With hypercapnia -- Acute on chronic respiratory failure - With hypoxia - With hypercapnia -- Other, please specify The patient's Clinical Indicators include: ?72 year old female with a PMHx of morbid obesity, COPD, HTN, Sleep apnea, and diabetes, presents to the ED from the shelter with altered mental status. As per shelter, patient has numerous vi sits to the ER for hypercarbia?. Appears: Non-toxic, No Acute Distress, Obese Cardiovascular: Rhythm Regular Respiratory: Diminished breath sounds symmetrically CO2: 45/41 Blood Gas: pCO2 85mmHg/86mmhg Patient in Ventilation Internal Medicine Doctor (BiPAP/CPAP). Please consider verify and document Acute on Chronic Respiratory Failure with hypercapnia, I agree. Query created by: Timmy Galaviz on 03/04/2018 11:13 AM Electronically signed by: Minda Valdivia MD 03/07/2018 4:15 PM
--- NOTE | 2018-03-08 11:29 | CARD ---
APPROVED REPORT Date of service: 03/02/2018 EKG Measurement Heart [id number] <Conclusion> Normal sinus rhythm Normal ECG
--- NOTE | 2018-03-12 02:31 | CP.PCM.DIS ---
Provider - Provider Date of Admission: 03/02/18 21:40 Attending physician: Madonna Foster MD Time Spent in preparation of Discharge (in minutes): 25 Hospital Course - Lab Results Lab Results: Micro Results 03/02/18 22:13 Blood-Venous Blood Culture - Final NO GROWTH AFTER 5 DAYS 03/02/18 22:13 Blood-Venous Gram Stain - Final TEST NOT PERFORMED 03/02/18 22:13 Blood-Venous S.aureus & Coag-Neg Staph PNA FISH - Final 03/02/18 22:13 Blood-Venous Blood Culture - Final Coagulase Neg Staphylococcus 03/02/18 22:13 Blood-Venous Gram Stain - Final 03/04/18 13:35 Naris MRSA Culture - Final MRSA NOT DETECTED 03/03/18 06:36 Naris MRSA Culture (Admit) - Final MRSA NOT DETECTED Most Recent Lab Values WBC 10.4 K/uL (4.8-10.8) 03/03/18 06:24 RBC 4.39 Mil/uL (3.80-5.20) 03/03/18 06:24 Hgb 12.3 g/dL (11.0-16.0) 03/03/18 06:24 Hct 38.7 % (34.0-47.0) 03/03/18 06:24 MCV 88.0 fL (81.0-99.0) 03/03/18 06:24 MCH 28.1 pg (27.0-31.0) 03/03/18 06:24 MCHC 31.9 g/dL (33.0-37.0) L 03/03/18 06:24 RDW 15.3 % (11.5-14.5) H 03/03/18 06:24 Plt Count 200 K/uL (130-400) 03/03/18 06:24 MPV 10.2 fL (7.2-11.7) 03/03/18 06:24 Neut % (Auto) 91.0 % (50.0-75.0) H 03/03/18 06:24 Lymph % (Auto) 8.3 % (20.0-40.0) L 03/03/18 06:24 [place] % (Auto) 0.6 % (0.0-10.0) 03/03/18 06:24 Eos % (Auto) 0.0 % (0.0-4.0) 03/03/18 06:24 Baso % (Auto) 0.1 % (0.0-2.0) 03/03/18 06:24 Neut # (Auto) 9.4 K/uL (1.8-7.0) H 03/03/18 06:24 Lymph # (Auto) 0.9 K/uL (1.0-4.3) L 03/03/18 06:24 [place] # (Auto) 0.1 K/uL (0.0-0.8) 03/03/18 06:24 Eos # (Auto) 0.0 K/uL (0.0-0.7) 03/03/18 06:24 Baso # (Auto) 0.0 K/uL (0.0-0.2) 03/03/18 06:24 Neutrophils % (Manual) 92 % (50-75) H 03/03/18 06:24 Lymphocytes % (Manual) 7 % (20-40) L 03/03/18 06:24 Monocytes % (Manual) 1 % (0-10) 03/03/18 06:24 Platelet Estimate Normal (NORMAL) 03/03/18 06:24 Anisocytosis (manual) Slight 03/03/18 06:24 PT 11.0 SECONDS (9.7-12.2) 03/02/18 20:50 INR 1.0 03/02/18 20:50 APTT 39 SECONDS (21-34) H 03/02/18 20:50 Puncture Site Lr 03/03/18 05:25 pCO2 86 mm/Hg (35-45) H* 03/03/18 05:25 pO2 98 mm/Hg (80-100) 03/03/18 05:25 HCO3 37.6 mmol/L (21-28) H 03/03/18 05:25 ABG pH 7.34 (7.35-7.45) L 03/03/18 05:25 ABG Total CO2 49.0 mmol/L (22-28) H 03/03/18 05:25 ABG O2 Saturation 98.3 % (95-98) H 03/03/18 05:25 ABG Base Excess 16.3 mmol/L (-2.0-3.0) H 03/03/18 05:25 ABG Hemoglobin 13.1 g/dL (11.7-17.4) 03/03/18 05:25 ABG Carboxyhemoglobin 1.7 % (0.5-1.5) H 03/03/18 05:25 POC ABG HHb (Measured) 1.7 % (0.0-5.0) 03/03/18 05:25 ABG Methemoglobin 1.0 % (0.0-3.0) 03/03/18 05:25 [place] Test Pos 03/03/18 05:25 VBG pH 7.32 (7.32-7.43) 03/02/18 19:56 VBG pCO2 82 mmHg (40-60) H* 03/02/18 19:56 VBG HCO3 32.7 mmol/L 03/02/18 19:56 VBG Total CO2 44.7 mmol/L (22-28) H 03/02/18 19:56 VBG O2 Sat (Calc) 38.7 % (40-65) L 03/02/18 19:56 VBG Base Excess 12.3 mmol/L (0.0-2.0) H 03/02/18 19:56 VBG Potassium 2.8 mmol/L (3.6-5.2) L 03/02/18 19:56 A-a O2 Difference 80.0 mm/Hg 03/03/18 05:25 Respiratory Index 0.8 03/03/18 05:25 Hgb O2 Saturation 95.6 % (95.0-98.0) 03/03/18 05:25 Sodium 147.0 mmol/l (132-148) 03/02/18 19:56 Chloride 106.0 mmol/L (98-107) 03/02/18 19:56 Glucose 86 mg/dl (65-105) 03/02/18 19:56 Lactate 0.5 mmol/L (0.7-2.1) L 03/02/18 19:56 Vent Mode Bipap 03/03/18 05:25 FiO2 40.0 % 03/03/18 05:25 Inspiratory BiPAP 20 03/03/18 05:25 Expiratory BiPAP 5 03/03/18 05:25 Crit Value Called To Rain [email or web address] 03/03/18 05:25 Crit Value Called By Mark [email or web address]/rt 03/03/18 05:25 Crit Value Read Back Y 03/03/18 05:25 Blood Gas Notified Time 535 03/03/18 05:25 Sodium 143 mmol/L (132-148) 03/03/18 06:24 Potassium 4.6 mmol/L (3.6-5.2) 03/03/18 06:24 Chloride 90 mmol/L (98-107) L 03/03/18 06:24 Carbon Dioxide 41 mmol/L (22-30) H* 03/03/18 06:24 Anion Gap 17 (10-20) 03/03/18 06:24 BUN 17 mg/dL (7-17) 03/03/18 06:24 Creatinine 0.5 mg/dL (0.7-1.2) L 03/03/18 06:24 Est GFR ( Amer) > 60 03/03/18 06:24 Est GFR (Non-Af Amer) > 60 03/03/18 06:24 POC Glucose (mg/dL) 295 mg/dL (65-110) H 03/06/18 16:11 Random Glucose 197 mg/dL (65-105) H 03/03/18 06:24 Calcium 8.9 mg/dl (8.6-10.4) 03/03/18 06:24 Phosphorus 4.1 mg/dL (2.5-4.5) 03/03/18 06:24 Magnesium 2.2 mg/dL (1.6-2.3) 03/03/18 06:24 Total Bilirubin 0.5 mg/dL (0.2-1.3) 03/03/18 06:24 AST 13 U/L (14-36) L D 03/03/18 06:24 ALT 17 U/L (9-52) 03/03/18 06:24 Alkaline Phosphatase 69 U/L (38-126) 03/03/18 06:24 Troponin I < 0.0120 ng/mL (0.00-0.120) 03/02/18 20:50 NT-Pro-B Natriuret Pep 61.5 pg/mL (0-900) 03/02/18 20:50 Total Protein 7.5 g/dL (6.3-8.3) 03/03/18 06:24 Albumin 4.0 g/dL (3.5-5.0) 03/03/18 06:24 Globulin 3.5 gm/dL (2.2-3.9) 03/03/18 06:24 Albumin/Globulin Ratio 1.2 (1.0-2.1) 03/03/18 06:24 TSH 3rd Generation 0.04 mIU/L (0.46-4.68) L 03/03/18 06:24 Venous Blood Potassium 2.8 mmol/L (3.6-5.2) L 03/02/18 19:56 Urine Color Yellow (YELLOW) 03/02/18 22:13 Urine Clarity Clear (Clear) 03/02/18 22:13 Urine pH 6.0 (5.0-8.0) 03/02/18 22:13 Ur Specific [place] 1.016 (1.003-1.030) 03/02/18 22:13 Urine Protein 1+ mg/dL (NEGATIVE) H 03/02/18 22:13 Urine Glucose (UA) Normal mg/dL (Normal) 03/02/18 22:13 Urine Ketones Negative mg/dL (NEGATIVE) 03/02/18 22:13 Urine Blood Negative (NEGATIVE) 03/02/18 22:13 Urine Nitrate Negative (NEGATIVE) 03/02/18 22:13 Urine Bilirubin Negative (NEGATIVE) 03/02/18 22:13 Urine Urobilinogen Normal mg/dL (0.2-1.0) 03/02/18 22:13 Ur Leukocyte Esterase Neg Cony/uL (Negative) 03/02/18 22:13 Urine WBC (Auto) 1 /hpf (0-5) 03/02/18 22:13 Urine RBC (Auto) 1 /hpf (0-3) 03/02/18 22:13 - Hospital Course Hospital Course: Patient presented with hypercapnia and altered mental status. Patient was initially admitted to intensive care unit and treated with BiPAP. Patient was also treated with IV steroids, bronchodilators and Lasix. Her condition improved and is being transferred to residential Discharge Exam - Head Exam Head Exam: ATRAUMATIC, NORMAL INSPECTION, NORMOCEPHALIC - ENT Exam ENT Exam: Mucous Membranes Moist - Respiratory Exam Respiratory Exam: Prolonged Expiratory Phase - Cardiovascular Exam Cardiovascular Exam: REGULAR RHYTHM, +S1, +S2 - GI/Abdominal Exam GI & Abdominal Exam: Normal Bowel Sounds - Extremities Exam Extremities exam: pedal edema Discharge Plan - Discharge Medications Prescriptions: predniSONE [Prednisone] 10 mg PO DAILY #19 tab - Follow Up Plan Condition: FAIR Disposition: TRANSF TO SNF Instructions: Altered Mental Status (DC), Exacerbation of COPD (DC), Altered Mental Status (GEN), Hypertension (DC), Hypertension (GEN) Referrals: Minda Valdivia MD [Staff Provider] - Rita Foster MD [Staff Provider] -
== END 2018-03-06 18:48 | DRG 70 ==
LOC: C.ER 18:30 → C.9E 21:40 → C.9I 23:21 → C.5S 03-04 14:01 → C.3T 03-06 07:01
PROVIDERS: ADMIT Internal Medicine Nephrology; ATTEND Internal Medicine Nephrology
PROC: 5A09457 Assistance with Respiratory Ventilation, 24-96 Consecutive Hours, Continuous Positive Airway Pressure (ICD-10-PCS; principal; 2018-03-02)
DX: G93.41 Metabolic encephalopathy (principal); J96.22 Acute and chronic respiratory failure with hypercapnia; J44.1 Chronic obstructive pulmonary disease with (acute) exacerbation; Z68.43 Body mass index [BMI] 50.0-59.9, adult; R41.82 Altered mental status, unspecified; E11.9 Type 2 diabetes mellitus without complications; E66.01 Morbid (severe) obesity due to excess calories; E03.9 Hypothyroidism, unspecified; G20 Parkinson's disease; Z96.651 Presence of right artificial knee joint; F02.80 Dementia in other diseases classified elsewhere, unspecified severity, without behavioral disturbance, psychotic disturbance, mood disturbance, and anxiety; F31.9 Bipolar disorder, unspecified; G47.30 Sleep apnea, unspecified; I10 Essential (primary) hypertension; K21.9 Gastro-esophageal reflux disease without esophagitis; Z87.440 Personal history of urinary (tract) infections; Z87.891 Personal history of nicotine dependence; Z79.4 Long term (current) use of insulin

== ENCOUNTER 2018-03-26 18:39 | Inpatient (IN) | payer MEDICARE, MEDICAID ==
[2018-03-26 19:11] VITALS: BMI 53.1
[2018-03-26] MEDS ORDERED: Sodium Chloride 0.9% 1,000 ML IV ONE (19:13)
--- NOTE | 2018-03-26 19:17 | C.PDOC ---
History Of Present Illness 72 year old female with a Hx of COPD and HTN sent from residential after being found lethargic. In the ER, patient is oriented and responsive to questioning, complaining of RLQ pain and chest pain. Denies nausea, vomiting, fever, or chills. Chief Complaint (Nursing): Altered Mental Status History Per: Patient History/Exam Limitations: None Onset/Duration Of Symptoms: Hrs Onset Of Symptoms: Cannot Confirm Onset Current Symptoms Are (Timing): Still Present Usual Baseline: Alert Oriented Exacerbating Factor(s): Unknown Speech Is: Normal Recent travel outside of the [place]: No Past Medical History Reviewed: Historical Data, Nursing Documentation, Vital Signs Vital Signs: Last Vital Signs Temp 97.7 F 03/26/18 19:12 Pulse 76 03/26/18 21:45 Resp 20 03/26/18 21:45 BP 104/48 L 03/26/18 21:45 Pulse Ox 99 03/26/18 21:45 - Medical History PMH: Anemia, Anxiety, Arthritis, Bipolar Disorder, COPD, Dementia, Depression, HTN, Hypothyroidism, Parkinson's Disease, Sleep Apnea (on Bipap) Denies: Chronic Kidney Disease - [facility] Procedures ASSISTANCE WITH RESPIRATORY VENTILATION, 24-96 HRS, CPAP (03/02/18) ASSISTANCE WITH RESPIRATORY VENTILATION, >96 HRS, CPAP (01/07/18) CONTINUOUS INVASIVE MECHANICAL VENTILATION <96 CONSEC HRS (12/29/12) CONTINUOUS INVASIVE MECHANICAL VENTILATION =/>96 CONSEC HRS (02/28/13) DX ULTRASOUND-HEART (08/29/13) EXCISION OF RIGHT BREAST, OPEN APPROACH, DIAGNOSTIC (09/18/15) INCIS W REM OF FORIEGN BODY OR DEV FROM SKIN & SUBCUT TISSUE (08/29/13) INSERT ENDOTRACHEAL TUBE (02/28/13) INSERT INDWELLING CATH (12/26/12) INSERTION OF ENDOTRACHEAL AIRWAY INTO TRACHEA, VIA OPENING (07/14/17) INSERTION OF INFUSION DEV INTO SUP VENA CAVA, PERC APPROACH (10/21/16) INSERTION OF INFUSION DEVICE INTO R BRACH ART, PERC APPROACH (12/11/17) NON-INVASIVE MECHANICAL VENTILATION (08/29/13) RESPIRATORY VENTILATION, 24-96 CONSECUTIVE HOURS (07/14/17) Family History: States: Unknown Family Hx - Social History Hx Tobacco Use: (Unknown) Hx Alcohol Use: No Hx Substance Use: No - Immunization History Hx Tetanus Toxoid Vaccination: No Hx Influenza Vaccination: No Hx Pneumococcal Vaccination: No (05/28/2009) Review Of Systems Constitutional: Negative for: Fever, Chills Cardiovascular: Positive for: Chest Pain. Negative for: Palpitations Respiratory: Negative for: Cough, Shortness of Breath Gastrointestinal: Positive for: Abdominal Pain. Negative for: Nausea, Vomiting Physical Exam - Physical Exam Appears: Non-toxic Skin: Normal Color, Warm, Dry Head: Atraumatic, Normacephalic Eye(s): bilateral: Normal Inspection Oral Mucosa: Moist Throat: Normal, No Erythema Neck: Normal, Supple Chest: Symmetrical, No Tenderness Cardiovascular: Rhythm Regular Respiratory: Normal Breath Sounds, No Rales, No Rhonchi, No Wheezing Gastrointestinal/Abdominal: Soft, Tenderness (Localized RLQ), No Guarding, No Rebound Back: No CVA Tenderness Neurological/Psych: Oriented x3, Normal Speech ED Course And Treatment - Laboratory Results Result Diagrams: 03/26/18 19:50 03/26/18 19:50 ECG: Interpreted By Me, Viewed By Me ECG Rhythm: Sinus Rhythm, R BBB ECG Interpretation: Abnormal Interpretation Of ECG: Sinus arrythmia with PAC. IRBBB. abnormal tracings. Rate From EC - Radiology CXR: Interpreted by Me, Viewed By Me CXR Interpretation: Yes: No Acute Disease. No: Infiltrates (no acute findings on portable CXR) Progress Note: Blood work, EKG, CXR, and urinalysis ordered. IV fluids administered. Disposition Discussed With : Rita Foster Doctor Will See Patient In The: Hospital Counseled Patient/Family Regarding: Diagnosis - Disposition Disposition: HOSPITALIZED Disposition Time: 22:26 Condition: STABLE Forms: [facility] (Romanian) - POA Present On Arrival: None - Clinical Impression Clinical Impression: COPD exacerbation, Hypercapnia, Pneumonia, Gall bladder stones - Scribe Statement The provider has reviewed the documentation as recorded by the Scribjohn Estrada All medical record entries made by the Scribe were at my direction and personally dictated by me. I have reviewed the chart and agree that the record accurately reflects my personal performance of the history, physical exam, medical decision making, and the department course for this patient. I have also personally directed, reviewed, and agree with the discharge instructions and disposition.
[2018-03-26 20:05] LABS: BASO # 0.1 K/uL (0.0-0.2); BASO % 0.6 % (0.0-2.0); EOS # 0.2 K/uL (0.0-0.7); EOS % 1.2 % (0.0-4.0); HEMOGLOBIN 11.3 g/dL (11.0-16.0); LYMPH # 2.3 K/uL (1.0-4.3); LYMPH % 17.2 % (20.0-40.0); MEAN CELL VOLUME 86.4 fL (81.0-99.0); MEAN CORPUSCULAR HEMOGLOBIN 27.4 pg (27.0-31.0); MEAN CORPUSCULAR HGB CONC 31.8 g/dL (33.0-37.0); MEAN PLATELET VOLUME 8.6 fL (7.2-11.7); MONO % 7.4 % (0.0-10.0); NEUT # 9.7 K/uL (1.8-7.0); NEUT % 73.6 % (50.0-75.0); RBC 4.13 Mil/uL (3.80-5.20); RED CELL DISTRIBUTION WIDTH 15.4 % (11.5-14.5); WHITE BLOOD COUNT 13.1 K/uL (4.8-10.8)
[2018-03-26 20:05] LABS: ARTERIAL BLOOD GAS HCO3 38.2 mmol/L (21-28); ARTERIAL BLOOD GAS HEMOGLOBIN 11.6 g/dL (11.7-17.4); ARTERIAL BLOOD GAS O2 SAT 96.6 % (95-98); ARTERIAL BLOOD GAS PCO2 73 mm/Hg (35-45); ARTERIAL BLOOD GAS PO2 74 mm/Hg (80-100); ARTERIAL BLOOD GAS TCO2 47.4 mmol/L (22-28)
[2018-03-26 20:10] LABS: ALB/GLOB RATIO 1.3 (1.0-2.1); ALBUMIN 3.7 g/dL (3.5-5.0); ALT/SGPT 14 U/L (9-52); AST/SGOT 11 U/L (14-36); BLOOD UREA NITROGEN 10 mg/dL (7-17); CALCIUM 8.9 mg/dl (8.6-10.4); GFR AFRICAN-AMERICAN > 60; GFR NON-AFRICAN AMERICAN > 60
[2018-03-26 20:20] LABS: B-TYPE NATRIURETIC PEPTIDE 237 pg/mL (0-900)
[2018-03-26] MEDS ORDERED: Iodixanol 320 MG/ML 100 ML BOTTLE IV ONE (20:25)
[2018-03-26] MEDS ORDERED: Albuterol 0.083% Inhal Sol (2.5 mg/3 mL) UD INH STA (20:27)
[2018-03-26] MEDS ORDERED: Albuterol-Ipratrop 3 mg / 0.5 (3 ml) UD INH STA ×3 (20:28→20:31)
[2018-03-26 21:47] LABS: URINE BACTERIA RARE (<OCC); URINE BILIRUBIN NEGATIVE (NEGATIVE); URINE BLOOD NEGATIVE (NEGATIVE); URINE CLARITY Clear (Clear); URINE COLOR Yellow (YELLOW); URINE GLUCOSE (UA) NORMAL (Normal); URINE HYALINE CAST 0-2 /lpf (0-2); URINE LEUKOCYTE ESTERASE NEG Leu/uL (Negative); URINE PROTEIN 1+ mg/dL (NEGATIVE)
[2018-03-26] MEDS ORDERED: cefTRIAXone IV 1 gm in Dextros 50 ML IVPB ONE (22:19)
[2018-03-26 22:20] LABS: ARTERIAL BLOOD GAS HCO3 37.3 mmol/L (21-28); ARTERIAL BLOOD GAS HEMOGLOBIN 11.7 g/dL (11.7-17.4); ARTERIAL BLOOD GAS O2 SAT 96.1 % (95-98); ARTERIAL BLOOD GAS PCO2 67 mm/Hg (35-45); ARTERIAL BLOOD GAS PH 7.42 (7.35-7.45); ARTERIAL BLOOD GAS PO2 70 mm/Hg (80-100); ARTERIAL BLOOD GAS TCO2 45.6 mmol/L (22-28)
[2018-03-26] MEDS ORDERED: Azithromycin 500mg/250ML NS 500 MG/250 ML BAG IV STA (22:20)
[2018-03-26] MEDS ORDERED: Magnesium Hydroxide Susp 30 ml UD PO PRN (23:22)
[2018-03-26] MEDS ORDERED: Azithromycin 500mg/250ML NS 500 MG/250 ML BAG IVPB SCH (23:30)
[2018-03-27] MEDS: Albuterol-Ipratrop 3 mg / 0.5 (3 ml) UD INH SCH ×6 (00:47→20:01)
[2018-03-27] MEDS: Levothyroxine 150 MCG TAB PO SCH (06:22)
[2018-03-27] MEDS: (Novolin R) Insulin Human Regular 100 units/ml vial SC SCH ×4 (08:17→21:41)
[2018-03-27 08:25] VITALS: RESP 20
--- NOTE | 2018-03-27 09:54 | RAD ---
Date of service: 03/26/2018 PROCEDURE: CHEST RADIOGRAPH, 1 VIEW HISTORY: SOB COMPARISON: 03/02/2018 FINDINGS: LUNGS: Shallow lung volumes. Limited evaluation of the left lung base due to colon shallow lung volumes, cardiomegaly, and large body habitus. Left basal pathology cannot be excluded given current appearance PLEURA: Probable left pleural effusion CARDIOVASCULAR: Cardiomegaly. Pulmonary venous congestion -similar OSSEOUS STRUCTURES: Dextroscoliosis. Thoracic spondylosis. Unchanged VISUALIZED UPPER ABDOMEN: Normal. OTHER FINDINGS: None. IMPRESSION: Limited exam. Nevertheless cardiomegaly, an mild pulmonary venous congestion findings compatible with mild CHF are suspect. Probable small left pleural effusion as well.
[2018-03-27] MEDS ORDERED: Home Med 1 UNIT (Amino Acids/Protein Hydrolys [Prostat 15 G Packet] 30 ML) PO SCH (10:00)
--- NOTE | 2018-03-27 10:14 | CP.PCM.CON ---
History of Present Illness - History of Present Illness History of Present Illness: CC: Shortness of breath HPI: 72 year old female with chronic medical conditions 1. COPD worsening on Bipap improved with hospitalization 2. Diabetes is chronic and stable on insulin 3. Morbid obesity chronic and stable Review of Systems - Review of Systems All systems: reviewed and no additional remarkable complaints except Past Patient History - Infectious Disease Hx of Infectious Diseases: VRE - Tetanus Immunizations Tetanus Immunization: Unknown - Past Medical History & Family History Past Medical History?: Yes - Past Social History Smoking Status: Former Smoker - CARDIAC Hx Hypertension: Yes - PULMONARY Hx Chronic Obstructive Pulmonary Disease (COPD): Yes Hx Sleep Apnea: Yes (on Bipap) - NEUROLOGICAL Hx Dementia: Yes Hx Parkinson's Disease: Yes - HEENT Hx HEENT Problems: No - RENAL Hx Chronic Kidney Disease: No - ENDOCRINE/METABOLIC Hx Hypothyroidism: Yes - HEMATOLOGICAL/ONCOLOGICAL Hx Anemia: Yes - INTEGUMENTARY Hx Dermatological Problems: No - MUSCULOSKELETAL/RHEUMATOLOGICAL Hx Falls: Yes - GASTROINTESTINAL Hx Gastrointestinal Disorders: Yes Hx Constipation: Yes Hx Gastroesophageal Reflux: Yes - GENITOURINARY/GYNECOLOGICAL Hx Genitourinary Disorders: Yes Hx Incontinence: Yes Hx Urinary Tract Infection: Yes - PSYCHIATRIC Hx Substance Use: No - SURGICAL HISTORY Hx Surgeries: Yes Hx Hysterectomy: Yes Hx Orthopedic Surgery: Yes Other/Comment: right knee replacement 2014; right knee prosthesis removal s/p infection 2014 - ANESTHESIA Hx Anesthesia: Yes Hx Anesthesia Reactions: No Hx Malignant Hyperthermia: No Meds Allergies/Adverse Reactions: Allergies Allergy/AdvReac Type Severity Reaction Status Date / Time Cephalosporins Allergy Intermediate RASH Verified 03/26/18 19:16 Penicillins Allergy Intermediate RASH Verified 03/26/18 19:16 clonazepam [From Klonopin] Allergy Verified 03/26/18 19:16 mustard Allergy Intermediate RASH Uncoded 03/26/18 19:16 - Medications Medications: Current Medications Acetaminophen (Tylenol 325mg Tab) 325 mg PO Q4H PRN PRN Reason: Pain, Mild (1-3) Albuterol/Ipratropium (Duoneb 3 Mg/0.5 Mg (3 Ml) Ud) 3 ml INH RQ4 [facility] Last Admin: 03/27/18 03:58 Dose: 3 ml Enoxaparin Sodium (Lovenox) 40 mg SC DAILY [facility] Furosemide (Lasix) 40 mg IVP DAILY [facility] Gabapentin (Neurontin) 300 mg PO BID [facility] Home Med (Amino Acids/Protein Hydrolys [Prostat 15 G Packet]) 30 ml PO DAILY [facility] Ceftriaxone Sodium 1 gm/ (Sodium Chloride) 100 mls @ 100 mls/hr IVPB DAILY [facility] PRN Reason: Protocol Azithromycin (Zithromax 500mg In Ns Addvantage) 500 mg in 250 mls @ 167 mls/hr IVPB Q24H [facility] PRN Reason: Protocol Last Admin: 03/27/18 01:34 Dose: 167 mls/hr Insulin Detemir (Levemir) 40 unit SC HS [facility] Insulin Human Regular (Novolin R) 0 unit SC ACHS [facility] PRN Reason: Protocol Last Admin: 03/27/18 08:17 Dose: Not Given Levothyroxine Sodium (Synthroid) 150 mcg PO DAILY@0630 [facility] Last Admin: 03/27/18 06:22 Dose: Not Given Magnesium Hydroxide (Milk Of Magnesia) 30 ml PO PRN PRN PRN Reason: Heartburn Montelukast Sodium (Singulair) 10 mg PO HS [facility] Pantoprazole Sodium (Protonix Inj) 40 mg IVP DAILY [facility] Physical Exam - Constitutional Appears: Non-toxic, Confused - Head Exam Head Exam: ATRAUMATIC, NORMAL INSPECTION - Eye Exam Eye Exam: PERRL. absent: Scleral icterus Pupil Exam: PERRL, Unequal - ENT Exam ENT Exam: Mucous Membranes Dry, Normal External Ear Exam - Neck Exam Neck exam: Negative for: Lymphadenopathy, Thyromegaly - Respiratory Exam Respiratory Exam: NORMAL BREATHING PATTERN - Cardiovascular Exam Cardiovascular Exam: REGULAR RHYTHM, RRR, +S1, +S2. absent: JVD - GI/Abdominal Exam GI & Abdominal Exam: Normal Bowel Sounds. absent: Organomegaly - Extremities Exam Extremities exam: Negative for: calf tenderness, pedal edema - Neurological Exam Neurological exam: Altered, Reflexes Normal - Psychiatric Exam Additional comments: LEthargic Results - Vital Signs Recent Vital Signs: Last Vital Signs Temp 97.9 F 03/27/18 08:24 Pulse 80 03/27/18 08:24 Resp 20 03/27/18 08:24 BP 144/80 03/27/18 08:24 Pulse Ox 99 03/27/18 08:24 - Labs Result Diagrams: 03/26/18 19:50 03/26/18 19:50 Labs: Laboratory Results - last 24 hr 03/26/18 03/26/18 03/26/18 18:51 19:50 19:50 WBC 13.1 H RBC 4.13 Hgb 11.3 Hct 35.7 MCV 86.4 MCH 27.4 MCHC 31.8 L RDW 15.4 H Plt Count 263 MPV 8.6 Neut % (Auto) 73.6 Lymph % (Auto) 17.2 L Brooke % (Auto) 7.4 Eos % (Auto) 1.2 Baso % (Auto) 0.6 Neut # (Auto) 9.7 H Lymph # (Auto) 2.3 Brooke # (Auto) 1.0 H Eos # (Auto) 0.2 Baso # (Auto) 0.1 D-Dimer, Quantitative Puncture Site pCO2 pO2 HCO3 ABG pH ABG Total CO2 ABG O2 Saturation ABG Base Excess ABG Hemoglobin ABG Carboxyhemoglobin POC ABG HHb (Measured) ABG Methemoglobin Donta Test A-a O2 Difference Respiratory Index Hgb O2 Saturation Liter Flow Mechanical Rate FiO2 Inspiratory BiPAP Expiratory BiPAP Crit Value Called To Crit Value Called By Crit Value Read Back Blood Gas Notified Time Sodium 135 Potassium 3.7 Chloride 86 L Carbon Dioxide 39 H Anion Gap 14 BUN 10 Creatinine 0.5 L Est GFR ( Amer) > 60 Est GFR (Non-Af Amer) > 60 POC Glucose (mg/dL) 117 H Random Glucose 121 H Calcium 8.9 Total Bilirubin 0.5 AST 11 L ALT 14 Alkaline Phosphatase 84 NT-Pro-B Natriuret Pep 237 Total Protein 6.7 Albumin 3.7 Globulin 2.9 Albumin/Globulin Ratio 1.3 Urine Color Urine Clarity Urine pH Ur Specific [place] Urine Protein Urine Glucose (UA) Urine Ketones Urine Blood Urine Nitrate Urine Bilirubin Urine Urobilinogen Ur Leukocyte Esterase Urine WBC (Auto) Urine RBC (Auto) Urine Bacteria Hyaline Casts 03/26/18 03/26/18 03/26/18 19:50 20:02 21:35 WBC RBC Hgb Hct MCV MCH MCHC RDW Plt Count MPV Neut % (Auto) Lymph % (Auto) Brooke % (Auto) Eos % (Auto) Baso % (Auto) Neut # (Auto) Lymph # (Auto) Brooke # (Auto) Eos # (Auto) Baso # (Auto) D-Dimer, Quantitative < 200 Puncture Site Rba pCO2 73 H* pO2 74 L HCO3 38.2 H ABG pH 7.40 ABG Total CO2 47.4 H ABG O2 Saturation 96.6 ABG Base Excess 17.1 H ABG Hemoglobin 11.6 L ABG Carboxyhemoglobin 2.1 H POC ABG HHb (Measured) 3.3 ABG Methemoglobin 1.3 Donta Test Na A-a O2 Difference Respiratory Index Hgb O2 Saturation 93.2 L Liter Flow 2.0 Mechanical Rate FiO2 Inspiratory BiPAP Expiratory BiPAP Crit Value Called To David paulson Crit Value Called By Lendbrunilda Crit Value Read Back Y Blood Gas Notified Time 2004 Sodium Potassium Chloride Carbon Dioxide Anion Gap BUN Creatinine Est GFR ( Amer) Est GFR (Non-Af Amer) POC Glucose (mg/dL) Random Glucose Calcium Total Bilirubin AST ALT Alkaline Phosphatase NT-Pro-B Natriuret Pep Total Protein Albumin Globulin Albumin/Globulin Ratio Urine Color Yellow Urine Clarity Clear Urine pH 7.0 Ur Specific [place] 1.016 Urine Protein 1+ H Urine Glucose (UA) Normal Urine Ketones Trace Urine Blood Negative Urine Nitrate Negative Urine Bilirubin Negative Urine Urobilinogen 2.0 H Ur Leukocyte Esterase Neg Urine WBC (Auto) 1 Urine RBC (Auto) 1 Urine Bacteria Rare Hyaline Casts 0-2 03/26/18 03/26/18 03/27/18 22:17 23:38 06:06 WBC RBC Hgb Hct MCV MCH MCHC RDW Plt Count MPV Neut % (Auto) Lymph % (Auto) Brooke % (Auto) Eos % (Auto) Baso % (Auto) Neut # (Auto) Lymph # (Auto) Brooke # (Auto) Eos # (Auto) Baso # (Auto) D-Dimer, Quantitative Puncture Site Rba pCO2 67 H pO2 70 L HCO3 37.3 H ABG pH 7.42 ABG Total CO2 45.6 H ABG O2 Saturation 96.1 ABG Base Excess 16.0 H ABG Hemoglobin 11.7 ABG Carboxyhemoglobin 2.1 H POC ABG HHb (Measured) 3.8 ABG Methemoglobin 0.8 Donta Test Na A-a O2 Difference 60.0 Respiratory Index 0.9 Hgb O2 Saturation 93.3 L Liter Flow Mechanical Rate 20 FiO2 30.0 Inspiratory BiPAP 16 Expiratory BiPAP 8 Crit Value Called To Crit Value Called By Crit Value Read Back Blood Gas Notified Time Sodium Potassium Chloride Carbon Dioxide Anion Gap BUN Creatinine Est GFR ( Amer) Est GFR (Non-Af Amer) POC Glucose (mg/dL) 159 H 159 H Random Glucose Calcium Total Bilirubin AST ALT Alkaline Phosphatase NT-Pro-B Natriuret Pep Total Protein Albumin Globulin Albumin/Globulin Ratio Urine Color Urine Clarity Urine pH Ur Specific [place] Urine Protein Urine Glucose (UA) Urine Ketones Urine Blood Urine Nitrate Urine Bilirubin Urine Urobilinogen Ur Leukocyte Esterase Urine WBC (Auto) Urine RBC (Auto) Urine Bacteria Hyaline Casts - EKG Data EKG Interpreted by: Myself EKG shows normal: Sinus rhythm Rate: Normal - Imaging and Cardiology Chest x-ray Additional comment: Interstitial lung disease no infiltrates Assessment & Plan - Assessment and Plan (Free Text) Assessment: 72 year old female with AMS due to delerium or dementia COPD exacerbation is now stable on abx, steroids, bronchodilators. Would encourage caution with Bipap in poor mental status. DM is chronic and stable on insulin Please call back as needed - Date & Time Date: 03/27/18 Time: 10:17
[2018-03-27] MEDS: Enoxaparin 40 mg Syringe SC SCH (10:52)
--- NOTE | 2018-03-27 14:38 | CT ---
Date of service: 03/26/2018 PROCEDURE: CT Abdomen and Pelvis without intravenous contrast HISTORY: LLQ abd pain COMPARISON: None. TECHNIQUE: Unenhanced study. Neither oral nor intravenous contrast administered. Radiation dose: Total exam DLP = 2550.56 mGy-cm. This CT exam was performed using one or more of the following dose reduction techniques: Automated exposure control, adjustment of the mA and/or kV according to patient size, and/or use of iterative reconstruction technique. FINDINGS: LOWER THORAX: Unremarkable. LIVER: Unremarkable. No gross lesion or ductal dilatation. GALLBLADDER AND BILE DUCTS: Cholelithiasis without CT evidence of acute cholecystitis. PANCREAS: Unremarkable. No gross lesion or ductal dilatation. SPLEEN: Unremarkable. ADRENALS: Unremarkable. No mass. KIDNEYS AND URETERS: Unremarkable. No hydronephrosis. No solid mass. VASCULATURE: Unremarkable. No aortic aneurysm. BOWEL: Diverticulosis without an acute inflammatory component or other associated pathologic process. APPENDIX: Unremarkable. Normal appendix. PERITONEUM: Unremarkable. No free fluid. No free air. LYMPH NODES: Unremarkable. No enlarged lymph nodes. BLADDER: Unremarkable. REPRODUCTIVE: Unremarkable. BONES: No acute fracture. Scoliosis, secondary degenerative change at multiple levels. OTHER FINDINGS: None. IMPRESSION: Cholelithiasis without CT evidence of acute cholecystitis. Additional benign and/or incidental findings described above. Concordant results (preliminary interpretation) provided by [employer]. Procedure Completed: 21:11. Preliminary ([facility]) Report: Dictated and Authenticated: 21:46. Final Interpretation: 14:36 March 27, 2018.
--- NOTE | 2018-03-27 17:12 | CP.PCM.CON ---
History of Present Illness - History of Present Illness History of Present Illness: reason for consultation; hypercapnic respiratory failure/COPD 72 year old female patient with past medical history of morbid obesity, COPD, hypertension, sleep apnea and diabetes [facility] with complaint of altered mental status. Patient has history of multiple admissions due to hypercarbia. Patient was seen and examined this morning at bedside. Patient is awake and responsive. Patient is currently on BiPAP. Patient is in no acute distress. Patient is afebrile. Chest X-ray showed no active pulmonary disease. Patient has no acute complaints. PMH: Anemia, anxiety, arthritis, bipolar disorder, COPD, dementia, depression, hypertension, hypothryroidism, Parkinson's Disease, sleep apnea Meds: Albuterol/ Ipratropium 3 ml INH RQ4 Enoxaparin Sodium 40 mg SC Daily Furosemide 40 mg PO Daily Isosorbide Mononitrate 30 mg PO Daily Levothyroxine Sodium 150 mcg Po Daily Montelukast Sodium 10 mg PO HS Pantoprazole Sodium 40 mg PO Daily Review of Systems - Review of Systems All systems: reviewed and no additional remarkable complaints except (Change in mental status) Past Patient History - Infectious Disease Hx of Infectious Diseases: VRE - Tetanus Immunizations Tetanus Immunization: Unknown - Past Medical History & Family History Past Medical History?: Yes - Past Social History Smoking Status: Former Smoker - CARDIAC Hx Hypertension: Yes - PULMONARY Hx Chronic Obstructive Pulmonary Disease (COPD): Yes - NEUROLOGICAL Hx Dementia: Yes Hx Parkinson's Disease: Yes - HEENT Hx HEENT Problems: No - RENAL Hx Chronic Kidney Disease: No - ENDOCRINE/METABOLIC Hx Hypothyroidism: Yes - HEMATOLOGICAL/ONCOLOGICAL Hx Anemia: Yes - INTEGUMENTARY Hx Dermatological Problems: No - MUSCULOSKELETAL/RHEUMATOLOGICAL Hx Falls: Yes - GASTROINTESTINAL Hx Gastrointestinal Disorders: Yes Hx Constipation: Yes Hx Gastroesophageal Reflux: Yes - GENITOURINARY/GYNECOLOGICAL Hx Genitourinary Disorders: Yes Hx Incontinence: Yes Hx Urinary Tract Infection: Yes - PSYCHIATRIC Hx Substance Use: No - SURGICAL HISTORY Hx Surgeries: Yes Hx Hysterectomy: Yes Hx Orthopedic Surgery: Yes Other/Comment: right knee replacement 2014; right knee prosthesis removal s/p infection 2014 - ANESTHESIA Hx Anesthesia: Yes Hx Anesthesia Reactions: No Hx Malignant Hyperthermia: No Meds Allergies/Adverse Reactions: Allergies Allergy/AdvReac Type Severity Reaction Status Date / Time Cephalosporins Allergy Intermediate RASH Verified 03/26/18 19:16 Penicillins Allergy Intermediate RASH Verified 03/26/18 19:16 clonazepam [From Klonopin] Allergy Verified 03/26/18 19:16 mustard Allergy Intermediate RASH Uncoded 03/26/18 19:16 - Medications Medications: Current Medications Acetaminophen (Tylenol 325mg Tab) 325 mg PO Q4H PRN PRN Reason: Pain, Mild (1-3) Albuterol/Ipratropium (Duoneb 3 Mg/0.5 Mg (3 Ml) Ud) 3 ml INH RQ4 [facility] Last Admin: 03/27/18 16:03 Dose: 3 ml Enoxaparin Sodium (Lovenox) 40 mg SC DAILY [facility] Last Admin: 03/27/18 10:52 Dose: 40 mg Furosemide (Lasix) 40 mg IVP DAILY [facility] Last Admin: 03/27/18 10:51 Dose: 40 mg Gabapentin (Neurontin) 300 mg PO BID [facility] Last Admin: 03/27/18 16:59 Dose: 300 mg Ceftriaxone Sodium 1 gm/ (Sodium Chloride) 100 mls @ 100 mls/hr IVPB DAILY [facility] PRN Reason: Protocol Last Admin: 03/27/18 10:53 Dose: 100 mls/hr Azithromycin 500 mg/ Sodium (Chloride) 250 mls @ 167 mls/hr IVPB Q24H [facility] PRN Reason: Protocol Insulin Detemir (Levemir) 40 unit SC HS [facility] Insulin Human Regular (Novolin R) 0 unit SC ACHS [facility] PRN Reason: Protocol Last Admin: 03/27/18 11:44 Dose: Not Given Levothyroxine Sodium (Synthroid) 150 mcg PO DAILY@0630 [facility] Last Admin: 03/27/18 06:22 Dose: Not Given Magnesium Hydroxide (Milk Of Magnesia) 30 ml PO PRN PRN PRN Reason: Heartburn Montelukast Sodium (Singulair) 10 mg PO HS [facility] Pantoprazole Sodium (Protonix Inj) 40 mg IVP DAILY [facility] Last Admin: 03/27/18 10:50 Dose: 40 mg Vitamin A (Vitamin A&D) 1 applic TP Q6 [facility] Physical Exam - Head Exam Head Exam: ATRAUMATIC, NORMOCEPHALIC - ENT Exam ENT Exam: Mucous Membranes Moist - Respiratory Exam Respiratory Exam: Decreased Breath Sounds - Cardiovascular Exam Cardiovascular Exam: REGULAR RHYTHM - GI/Abdominal Exam GI & Abdominal Exam: Normal Bowel Sounds - Extremities Exam Extremities exam: Positive for: normal inspection - Neurological Exam Neurological exam: Alert Results - Vital Signs Recent Vital Signs: Last Vital Signs Temp 97.9 F 03/27/18 08:24 Pulse 85 03/27/18 16:05 Resp 20 03/27/18 08:24 BP 144/80 03/27/18 10:51 Pulse Ox 99 03/27/18 08:24 - Labs Result Diagrams: 03/26/18 19:50 03/26/18 19:50 Labs: Laboratory Results - last 24 hr 03/26/18 03/26/18 03/26/18 18:51 19:50 19:50 WBC 13.1 H RBC 4.13 Hgb 11.3 Hct 35.7 MCV 86.4 MCH 27.4 MCHC 31.8 L RDW 15.4 H Plt Count 263 MPV 8.6 Neut % (Auto) 73.6 Lymph % (Auto) 17.2 L [place] % (Auto) 7.4 Eos % (Auto) 1.2 Baso % (Auto) 0.6 Neut # (Auto) 9.7 H Lymph # (Auto) 2.3 [place] # (Auto) 1.0 H Eos # (Auto) 0.2 Baso # (Auto) 0.1 D-Dimer, Quantitative Puncture Site pCO2 pO2 HCO3 ABG pH ABG Total CO2 ABG O2 Saturation ABG Base Excess ABG Hemoglobin ABG Carboxyhemoglobin POC ABG HHb (Measured) ABG Methemoglobin Donta Test A-a O2 Difference Respiratory Index Hgb O2 Saturation Liter Flow Mechanical Rate FiO2 Inspiratory BiPAP Expiratory BiPAP Crit Value Called To Crit Value Called By Crit Value Read Back Blood Gas Notified Time Sodium 135 Potassium 3.7 Chloride 86 L Carbon Dioxide 39 H Anion Gap 14 BUN 10 Creatinine 0.5 L Est GFR ( Amer) > 60 Est GFR (Non-Af Amer) > 60 POC Glucose (mg/dL) 117 H Random Glucose 121 H Calcium 8.9 Total Bilirubin 0.5 AST 11 L ALT 14 Alkaline Phosphatase 84 NT-Pro-B Natriuret Pep 237 Total Protein 6.7 Albumin 3.7 Globulin 2.9 Albumin/Globulin Ratio 1.3 Urine Color Urine Clarity Urine pH Ur Specific [place] Urine Protein Urine Glucose (UA) Urine Ketones Urine Blood Urine Nitrate Urine Bilirubin Urine Urobilinogen Ur Leukocyte Esterase Urine WBC (Auto) Urine RBC (Auto) Urine Bacteria Hyaline Casts 03/26/18 03/26/18 03/26/18 19:50 20:02 21:35 WBC RBC Hgb Hct MCV MCH MCHC RDW Plt Count MPV Neut % (Auto) Lymph % (Auto) [place] % (Auto) Eos % (Auto) Baso % (Auto) Neut # (Auto) Lymph # (Auto) [place] # (Auto) Eos # (Auto) Baso # (Auto) D-Dimer, Quantitative < 200 Puncture Site Rba pCO2 73 H* pO2 74 L HCO3 38.2 H ABG pH 7.40 ABG Total CO2 47.4 H ABG O2 Saturation 96.6 ABG Base Excess 17.1 H ABG Hemoglobin 11.6 L ABG Carboxyhemoglobin 2.1 H POC ABG HHb (Measured) 3.3 ABG Methemoglobin 1.3 Donta Test Na A-a O2 Difference Respiratory Index Hgb O2 Saturation 93.2 L Liter Flow 2.0 Mechanical Rate FiO2 Inspiratory BiPAP Expiratory BiPAP Crit Value Called To David paulson Crit Value Called By Rowena Crit Value Read Back Y Blood Gas Notified Time 2004 Sodium Potassium Chloride Carbon Dioxide Anion Gap BUN Creatinine Est GFR ( Amer) Est GFR (Non-Af Amer) POC Glucose (mg/dL) Random Glucose Calcium Total Bilirubin AST ALT Alkaline Phosphatase NT-Pro-B Natriuret Pep Total Protein Albumin Globulin Albumin/Globulin Ratio Urine Color Yellow Urine Clarity Clear Urine pH 7.0 Ur Specific [place] 1.016 Urine Protein 1+ H Urine Glucose (UA) Normal Urine Ketones Trace Urine Blood Negative Urine Nitrate Negative Urine Bilirubin Negative Urine Urobilinogen 2.0 H Ur Leukocyte Esterase Neg Urine WBC (Auto) 1 Urine RBC (Auto) 1 Urine Bacteria Rare Hyaline Casts 0-2 03/26/18 03/26/18 03/27/18 22:17 23:38 06:06 WBC RBC Hgb Hct MCV MCH MCHC RDW Plt Count MPV Neut % (Auto) Lymph % (Auto) [place] % (Auto) Eos % (Auto) Baso % (Auto) Neut # (Auto) Lymph # (Auto) [place] # (Auto) Eos # (Auto) Baso # (Auto) D-Dimer, Quantitative Puncture Site Rba pCO2 67 H pO2 70 L HCO3 37.3 H ABG pH 7.42 ABG Total CO2 45.6 H ABG O2 Saturation 96.1 ABG Base Excess 16.0 H ABG Hemoglobin 11.7 ABG Carboxyhemoglobin 2.1 H POC ABG HHb (Measured) 3.8 ABG Methemoglobin 0.8 Donta Test Na A-a O2 Difference 60.0 Respiratory Index 0.9 Hgb O2 Saturation 93.3 L Liter Flow Mechanical Rate 20 FiO2 30.0 Inspiratory BiPAP 16 Expiratory BiPAP 8 Crit Value Called To Crit Value Called By Crit Value Read Back Blood Gas Notified Time Sodium Potassium Chloride Carbon Dioxide Anion Gap BUN Creatinine Est GFR ( Amer) Est GFR (Non-Af Amer) POC Glucose (mg/dL) 159 H 159 H Random Glucose Calcium Total Bilirubin AST ALT Alkaline Phosphatase NT-Pro-B Natriuret Pep Total Protein Albumin Globulin Albumin/Globulin Ratio Urine Color Urine Clarity Urine pH Ur Specific [place] Urine Protein Urine Glucose (UA) Urine Ketones Urine Blood Urine Nitrate Urine Bilirubin Urine Urobilinogen Ur Leukocyte Esterase Urine WBC (Auto) Urine RBC (Auto) Urine Bacteria Hyaline Casts Assessment & Plan (1) COPD exacerbation Status: Acute Comment: continue BiPAP. Nebulizer treatment. add steroids. followup ABG and chest x-ray (2) Altered mental status Status: Acute (3) FESTUS (obstructive sleep apnea) Status: Acute
--- NOTE | 2018-03-27 17:31 | CP.PCM.HP ---
Past Patient History - Infectious Disease Hx of Infectious Diseases: VRE - Tetanus Immunizations Tetanus Immunization: Unknown - Past Medical History & Family History Past Medical History?: Yes - Past Social History Smoking Status: Former Smoker - CARDIAC Hx Hypertension: Yes - PULMONARY Hx Chronic Obstructive Pulmonary Disease (COPD): Yes - NEUROLOGICAL Hx Dementia: Yes Hx Parkinson's Disease: Yes - HEENT Hx HEENT Problems: No - RENAL Hx Chronic Kidney Disease: No - ENDOCRINE/METABOLIC Hx Hypothyroidism: Yes - HEMATOLOGICAL/ONCOLOGICAL Hx Anemia: Yes - INTEGUMENTARY Hx Dermatological Problems: No - MUSCULOSKELETAL/RHEUMATOLOGICAL Hx Falls: Yes - GASTROINTESTINAL Hx Gastrointestinal Disorders: Yes Hx Constipation: Yes Hx Gastroesophageal Reflux: Yes - GENITOURINARY/GYNECOLOGICAL Hx Genitourinary Disorders: Yes Hx Incontinence: Yes Hx Urinary Tract Infection: Yes - PSYCHIATRIC Hx Substance Use: No - SURGICAL HISTORY Hx Surgeries: Yes Hx Hysterectomy: Yes Hx Orthopedic Surgery: Yes Other/Comment: right knee replacement 2014; right knee prosthesis removal s/p infection 2014 - ANESTHESIA Hx Anesthesia: Yes Hx Anesthesia Reactions: No Hx Malignant Hyperthermia: No Meds Allergies/Adverse Reactions: Allergies Allergy/AdvReac Type Severity Reaction Status Date / Time Cephalosporins Allergy Intermediate RASH Verified 03/26/18 19:16 Penicillins Allergy Intermediate RASH Verified 03/26/18 19:16 clonazepam [From Klonopin] Allergy Verified 03/26/18 19:16 mustard Allergy Intermediate RASH Uncoded 03/26/18 19:16 Physical Exam - Constitutional Appears: Well - Head Exam Head Exam: ATRAUMATIC, NORMAL INSPECTION, NORMOCEPHALIC - Eye Exam Eye Exam: EOMI, Normal appearance, PERRL Pupil Exam: NORMAL ACCOMODATION, PERRL - ENT Exam ENT Exam: Mucous Membranes Moist, Normal Exam - Neck Exam Neck exam: Positive for: Normal Inspection - Respiratory Exam Respiratory Exam: Decreased Breath Sounds - Cardiovascular Exam Cardiovascular Exam: REGULAR RHYTHM, +S1, +S2 - GI/Abdominal Exam GI & Abdominal Exam: Diminished Bowel Sounds, Soft - Rectal Exam Rectal Exam: Deferred Results - Vital Signs Recent Vital Signs: Last Vital Signs Temp 98.6 F 03/27/18 15:00 Pulse 85 03/27/18 16:05 Resp 20 03/27/18 15:00 BP 114/78 03/27/18 15:00 Pulse Ox 96 03/27/18 15:00 - Labs Result Diagrams: 03/26/18 19:50 03/26/18 19:50 Labs: Laboratory Results - last 24 hr 03/26/18 03/26/18 03/26/18 18:51 19:50 19:50 WBC 13.1 H RBC 4.13 Hgb 11.3 Hct 35.7 MCV 86.4 MCH 27.4 MCHC 31.8 L RDW 15.4 H Plt Count 263 MPV 8.6 Neut % (Auto) 73.6 Lymph % (Auto) 17.2 L Sargent % (Auto) 7.4 Eos % (Auto) 1.2 Baso % (Auto) 0.6 Neut # (Auto) 9.7 H Lymph # (Auto) 2.3 S[place]ent # (Auto) 1.0 H Eos # (Auto) 0.2 Baso # (Auto) 0.1 D-Dimer, Quantitative Puncture Site pCO2 pO2 HCO3 ABG pH ABG Total CO2 ABG O2 Saturation ABG Base Excess ABG Hemoglobin ABG Carboxyhemoglobin POC ABG HHb (Measured) ABG Methemoglobin Donta Test A-a O2 Difference Respiratory Index Hgb O2 Saturation Liter Flow Mechanical Rate FiO2 Inspiratory BiPAP Expiratory BiPAP Crit Value Called To Crit Value Called By Crit Value Read Back Blood Gas Notified Time Sodium 135 Potassium 3.7 Chloride 86 L Carbon Dioxide 39 H Anion Gap 14 BUN 10 Creatinine 0.5 L Est GFR ( Amer) > 60 Est GFR (Non-Af Amer) > 60 POC Glucose (mg/dL) 117 H Random Glucose 121 H Calcium 8.9 Total Bilirubin 0.5 AST 11 L ALT 14 Alkaline Phosphatase 84 NT-Pro-B Natriuret Pep 237 Total Protein 6.7 Albumin 3.7 Globulin 2.9 Albumin/Globulin Ratio 1.3 Urine Color Urine Clarity Urine pH Ur Specific [place] Urine Protein Urine Glucose (UA) Urine Ketones Urine Blood Urine Nitrate Urine Bilirubin Urine Urobilinogen Ur Leukocyte Esterase Urine WBC (Auto) Urine RBC (Auto) Urine Bacteria Hyaline Casts 03/26/18 03/26/18 03/26/18 19:50 20:02 21:35 WBC RBC Hgb Hct MCV MCH MCHC RDW Plt Count MPV Neut % (Auto) Lymph % (Auto) Sargent % (Auto) Eos % (Auto) Baso % (Auto) Neut # (Auto) Lymph # (Auto) Sargent # (Auto) Eos # (Auto) Baso # (Auto) D-Dimer, Quantitative < 200 Puncture Site Rba pCO2 73 H* pO2 74 L HCO3 38.2 H ABG pH 7.40 ABG Total CO2 47.4 H ABG O2 Saturation 96.6 ABG Base Excess 17.1 H ABG Hemoglobin 11.6 L ABG Carboxyhemoglobin 2.1 H POC ABG HHb (Measured) 3.3 ABG Methemoglobin 1.3 Donta Test Na A-a O2 Difference Respiratory Index Hgb O2 Saturation 93.2 L Liter Flow 2.0 Mechanical Rate FiO2 Inspiratory BiPAP Expiratory BiPAP Crit Value Called To David paulson Crit Value Called By Rowena Crit Value Read Back Y Blood Gas Notified Time 2004 Sodium Potassium Chloride Carbon Dioxide Anion Gap BUN Creatinine Est GFR ( Amer) Est GFR (Non-Af Amer) POC Glucose (mg/dL) Random Glucose Calcium Total Bilirubin AST ALT Alkaline Phosphatase NT-Pro-B Natriuret Pep Total Protein Albumin Globulin Albumin/Globulin Ratio Urine Color Yellow Urine Clarity Clear Urine pH 7.0 Ur Specific [place] 1.016 Urine Protein 1+ H Urine Glucose (UA) Normal Urine Ketones Trace Urine Blood Negative Urine Nitrate Negative Urine Bilirubin Negative Urine Urobilinogen 2.0 H Ur Leukocyte Esterase Neg Urine WBC (Auto) 1 Urine RBC (Auto) 1 Urine Bacteria Rare Hyaline Casts 0-2 03/26/18 03/26/18 03/27/18 22:17 23:38 06:06 WBC RBC Hgb Hct MCV MCH MCHC RDW Plt Count MPV Neut % (Auto) Lymph % (Auto) S[place]ent % (Auto) Eos % (Auto) Baso % (Auto) Neut # (Auto) Lymph # (Auto) S[place]ent # (Auto) Eos # (Auto) Baso # (Auto) D-Dimer, Quantitative Puncture Site Rba pCO2 67 H pO2 70 L HCO3 37.3 H ABG pH 7.42 ABG Total CO2 45.6 H ABG O2 Saturation 96.1 ABG Base Excess 16.0 H ABG Hemoglobin 11.7 ABG Carboxyhemoglobin 2.1 H POC ABG HHb (Measured) 3.8 ABG Methemoglobin 0.8 Donta Test Na A-a O2 Difference 60.0 Respiratory Index 0.9 Hgb O2 Saturation 93.3 L Liter Flow Mechanical Rate 20 FiO2 30.0 Inspiratory BiPAP 16 Expiratory BiPAP 8 Crit Value Called To Crit Value Called By Crit Value Read Back Blood Gas Notified Time Sodium Potassium Chloride Carbon Dioxide Anion Gap BUN Creatinine Est GFR ( Amer) Est GFR (Non-Af Amer) POC Glucose (mg/dL) 159 H 159 H Random Glucose Calcium Total Bilirubin AST ALT Alkaline Phosphatase NT-Pro-B Natriuret Pep Total Protein Albumin Globulin Albumin/Globulin Ratio Urine Color Urine Clarity Urine pH Ur Specific [place] Urine Protein Urine Glucose (UA) Urine Ketones Urine Blood Urine Nitrate Urine Bilirubin Urine Urobilinogen Ur Leukocyte Esterase Urine WBC (Auto) Urine RBC (Auto) Urine Bacteria Hyaline Casts 03/27/18 17:29 WBC RBC Hgb Hct MCV MCH MCHC RDW Plt Count MPV Neut % (Auto) Lymph % (Auto) S[place] % (Auto) Eos % (Auto) Baso % (Auto) Neut # (Auto) Lymph # (Auto) [place] # (Auto) Eos # (Auto) Baso # (Auto) D-Dimer, Quantitative Puncture Site pCO2 pO2 HCO3 ABG pH ABG Total CO2 ABG O2 Saturation ABG Base Excess ABG Hemoglobin ABG Carboxyhemoglobin POC ABG HHb (Measured) ABG Methemoglobin Donta Test A-a O2 Difference Respiratory Index Hgb O2 Saturation Liter Flow Mechanical Rate FiO2 Inspiratory BiPAP Expiratory BiPAP Crit Value Called To Crit Value Called By Crit Value Read Back Blood Gas Notified Time Sodium Potassium Chloride Carbon Dioxide Anion Gap BUN Creatinine Est GFR ( Amer) Est GFR (Non-Af Amer) POC Glucose (mg/dL) 171 H Random Glucose Calcium Total Bilirubin AST ALT Alkaline Phosphatase NT-Pro-B Natriuret Pep Total Protein Albumin Globulin Albumin/Globulin Ratio Urine Color Urine Clarity Urine pH Ur Specific [place] Urine Protein Urine Glucose (UA) Urine Ketones Urine Blood Urine Nitrate Urine Bilirubin Urine Urobilinogen Ur Leukocyte Esterase Urine WBC (Auto) Urine RBC (Auto) Urine Bacteria Hyaline Casts
[2018-03-27] MEDS: Vitamins A & D Oint UD Foilpak TOP SCH (17:40)
[2018-03-27] MEDS: Insulin Detemir 100 units/ml Vial (Levemir) SC SCH (21:42)
[2018-03-27] MEDS: Azithromycin 500 MG in Sodium Chloride 0.9% 250 ML IVPB SCH (22:09)
[2018-03-28] MEDS: Vitamins A & D Oint UD Foilpak TOP SCH ×4 (00:07→17:49)
[2018-03-28] MEDS: Albuterol-Ipratrop 3 mg / 0.5 (3 ml) UD INH SCH ×6 (00:19→19:33)
[2018-03-28] MEDS: Levothyroxine 150 MCG TAB PO SCH (05:43)
[2018-03-28] MEDS: (Novolin R) Insulin Human Regular 100 units/ml vial SC SCH ×4 (07:55→22:03)
[2018-03-28] MEDS: Enoxaparin 40 mg Syringe SC SCH (09:49)
[2018-03-28 11:21] LABS: MEAN CELL VOLUME 87.3 fL (81.0-99.0); MEAN CORPUSCULAR HEMOGLOBIN 27.7 pg (27.0-31.0); MEAN CORPUSCULAR HGB CONC 31.8 g/dL (33.0-37.0); MEAN PLATELET VOLUME 9.6 fL (7.2-11.7); RBC 3.95 Mil/uL (3.80-5.20); RED CELL DISTRIBUTION WIDTH 15.6 % (11.5-14.5); WHITE BLOOD COUNT 8.6 K/uL (4.8-10.8)
[2018-03-28 11:42] LABS: ALB/GLOB RATIO 1.4 (1.0-2.1); ALBUMIN 3.9 g/dL (3.5-5.0); ALT/SGPT 15 U/L (9-52); AST/SGOT 10 U/L (14-36); BLOOD UREA NITROGEN 25 mg/dL (7-17); CALCIUM 8.7 mg/dl (8.6-10.4); GFR AFRICAN-AMERICAN > 60; GFR NON-AFRICAN AMERICAN > 60
--- NOTE | 2018-03-28 13:37 | CP.PCM.PN ---
Subjective - Date & Time of Evaluation Date of Evaluation: 03/28/18 Time of Evaluation: 10:00 - Subjective Subjective: patient seen and examined Shortness of breath much improved Patient is awake and responsive On BiPAP at night or as needed Objective - Vital Signs/Intake and Output Vital Signs (last 24 hours): Temp Pulse Resp BP Pulse Ox 98 F 70 20 144/78 97 03/28/18 07:56 03/28/18 07:56 03/28/18 07:56 03/28/18 09:48 03/28/18 07:56 Intake and Output: 03/28/18 03/28/18 06:59 18:59 Intake Total 700 Output Total 1850 Balance -1150 - Medications Medications: Current Medications Acetaminophen (Tylenol 325mg Tab) 325 mg PO Q4H PRN PRN Reason: Pain, Mild (1-3) Albuterol/Ipratropium (Duoneb 3 Mg/0.5 Mg (3 Ml) Ud) 3 ml INH RQ4 [facility] Last Admin: 03/28/18 11:35 Dose: 3 ml Enoxaparin Sodium (Lovenox) 40 mg SC DAILY [facility] Last Admin: 03/28/18 09:49 Dose: 40 mg Furosemide (Lasix) 40 mg IVP DAILY [facility] Last Admin: 03/28/18 09:48 Dose: 40 mg Gabapentin (Neurontin) 300 mg PO BID [facility] Last Admin: 03/28/18 09:48 Dose: 300 mg Ceftriaxone Sodium 1 gm/ (Sodium Chloride) 100 mls @ 100 mls/hr IVPB DAILY [facility] PRN Reason: Protocol Last Admin: 03/28/18 09:48 Dose: 100 mls/hr Azithromycin 500 mg/ Sodium (Chloride) 250 mls @ 167 mls/hr IVPB Q24H [facility] PRN Reason: Protocol Last Admin: 03/27/18 22:09 Dose: 167 mls/hr Insulin Detemir (Levemir) 40 unit SC HS [facility] Last Admin: 03/27/18 21:42 Dose: 40 units Insulin Human Regular (Novolin R) 0 unit SC ACHS [facility] PRN Reason: Protocol Last Admin: 03/28/18 12:58 Dose: 1 unit Levothyroxine Sodium (Synthroid) 150 mcg PO DAILY@0630 [facility] Last Admin: 03/28/18 05:43 Dose: 150 mcg Magnesium Hydroxide (Milk Of Magnesia) 30 ml PO PRN PRN PRN Reason: Heartburn Methylprednisolone (Solu-Medrol) 40 mg IV Q8H [facility] Last Admin: 03/28/18 09:44 Dose: 40 mg Montelukast Sodium (Singulair) 10 mg PO HS [facility] Pantoprazole Sodium (Protonix Inj) 40 mg IVP DAILY [facility] Last Admin: 03/28/18 09:44 Dose: 40 mg Vitamin A (Vitamin A & D Oint Ud Foilpak) 1 ea TOP Q6 [facility] Last Admin: 03/28/18 12:58 Dose: 1 ea - Labs Labs: 03/28/18 11:12 03/28/18 11:12 - Head Exam Head Exam: ATRAUMATIC, NORMOCEPHALIC - ENT Exam ENT Exam: Mucous Membranes Moist - Neck Exam Neck Exam: Normal Inspection - Respiratory Exam Respiratory Exam: Decreased Breath Sounds - Cardiovascular Exam Cardiovascular Exam: REGULAR RHYTHM - GI/Abdominal Exam GI & Abdominal Exam: Soft, Normal Bowel Sounds - Extremities Exam Extremities Exam: Pedal Edema Assessment and Plan (1) COPD exacerbation Assessment & Plan: taper steroids Continue nebulizer treatment BiPAP Followup ABG Condition much improved Status: Acute (2) Altered mental status Status: Acute (3) FESTUS (obstructive sleep apnea) Status: Acute
--- NOTE | 2018-03-28 19:39 | CP.PCM.PN ---
Subjective - Date & Time of Evaluation Date of Evaluation: 03/28/18 Time of Evaluation: 09:30 - Subjective Subjective: clinically same Objective - Vital Signs/Intake and Output Vital Signs (last 24 hours): Temp Pulse Resp BP Pulse Ox 99.2 F 82 20 128/71 96 03/28/18 15:00 03/28/18 15:00 03/28/18 15:00 03/28/18 15:00 03/28/18 15:00 Intake and Output: 03/28/18 03/29/18 18:59 06:59 Intake Total 550 Output Total 1550 Balance -1000 - Medications Medications: Current Medications Acetaminophen (Tylenol 325mg Tab) 325 mg PO Q4H PRN PRN Reason: Pain, Mild (1-3) Albuterol/Ipratropium (Duoneb 3 Mg/0.5 Mg (3 Ml) Ud) 3 ml INH RQ4 [facility] Last Admin: 03/28/18 19:33 Dose: 3 ml Enoxaparin Sodium (Lovenox) 40 mg SC DAILY [facility] Last Admin: 03/28/18 09:49 Dose: 40 mg Furosemide (Lasix) 40 mg IVP DAILY [facility] Last Admin: 03/28/18 09:48 Dose: 40 mg Gabapentin (Neurontin) 300 mg PO BID [facility] Last Admin: 03/28/18 17:50 Dose: 300 mg Ceftriaxone Sodium 1 gm/ (Sodium Chloride) 100 mls @ 100 mls/hr IVPB DAILY [facility] PRN Reason: Protocol Last Admin: 03/28/18 09:48 Dose: 100 mls/hr Azithromycin 500 mg/ Sodium (Chloride) 250 mls @ 167 mls/hr IVPB Q24H [facility] PRN Reason: Protocol Last Admin: 03/27/18 22:09 Dose: 167 mls/hr Insulin Detemir (Levemir) 40 unit SC HS [facility] Last Admin: 03/27/18 21:42 Dose: 40 units Insulin Human Regular (Novolin R) 0 unit SC ACHS [facility] PRN Reason: Protocol Last Admin: 03/28/18 17:53 Dose: 1 unit Levothyroxine Sodium (Synthroid) 150 mcg PO DAILY@0630 [facility] Last Admin: 03/28/18 05:43 Dose: 150 mcg Magnesium Hydroxide (Milk Of Magnesia) 30 ml PO PRN PRN PRN Reason: Heartburn Methylprednisolone (Solu-Medrol) 40 mg IV Q8H [facility] Last Admin: 03/28/18 17:49 Dose: 40 mg Montelukast Sodium (Singulair) 10 mg PO HS [facility] Pantoprazole Sodium (Protonix Inj) 40 mg IVP DAILY [facility] Last Admin: 03/28/18 09:44 Dose: 40 mg Vitamin A (Vitamin A & D Oint Ud Foilpak) 1 ea TOP Q6 [facility] Last Admin: 03/28/18 17:49 Dose: 1 ea - Labs Labs: 03/28/18 11:12 03/28/18 11:12 - Constitutional Appears: Well - Head Exam Head Exam: ATRAUMATIC, NORMAL INSPECTION, NORMOCEPHALIC - Eye Exam Eye Exam: EOMI, Normal appearance, PERRL Pupil Exam: NORMAL ACCOMODATION, PERRL - ENT Exam ENT Exam: Mucous Membranes Moist, Normal Exam - Neck Exam Neck Exam: Full ROM, Normal Inspection. absent: Lymphadenopathy - Respiratory Exam Respiratory Exam: Decreased Breath Sounds - Cardiovascular Exam Cardiovascular Exam: REGULAR RHYTHM, +S1, +S2 - GI/Abdominal Exam GI & Abdominal Exam: Soft, Diminished Bowel Sounds - Rectal Exam Rectal Exam: Deferred
[2018-03-28] MEDS: Insulin Detemir 100 units/ml Vial (Levemir) SC SCH (22:02)
[2018-03-28] MEDS: Azithromycin 500 MG in Sodium Chloride 0.9% 250 ML IVPB SCH (22:09)
[2018-03-29] MEDS: Vitamins A & D Oint UD Foilpak TOP SCH ×4 (00:25→17:52)
[2018-03-29] MEDS: Albuterol-Ipratrop 3 mg / 0.5 (3 ml) UD INH SCH ×7 (00:44→23:39)
[2018-03-29] MEDS: Levothyroxine 150 MCG TAB PO SCH (05:48)
[2018-03-29] MEDS: (Novolin R) Insulin Human Regular 100 units/ml vial SC SCH ×4 (08:04→22:24)
[2018-03-29] MEDS: Enoxaparin 40 mg Syringe SC SCH (09:33)
[2018-03-29] MEDS ORDERED: Pneumococcal 23-Valent Vaccine IM ONE (11:00)
[2018-03-29 11:58] LABS: HEMOGLOBIN 11.2 g/dL (11.0-16.0); MEAN CELL VOLUME 87.9 fL (81.0-99.0); MEAN CORPUSCULAR HEMOGLOBIN 28.3 pg (27.0-31.0); MEAN CORPUSCULAR HGB CONC 32.2 g/dL (33.0-37.0); MEAN PLATELET VOLUME 9.1 fL (7.2-11.7); RBC 3.94 Mil/uL (3.80-5.20); RED CELL DISTRIBUTION WIDTH 15.5 % (11.5-14.5)
[2018-03-29 12:17] LABS: BLOOD UREA NITROGEN 26 mg/dL (7-17); CALCIUM 8.9 mg/dl (8.6-10.4); GFR AFRICAN-AMERICAN > 60; GFR NON-AFRICAN AMERICAN > 60
--- NOTE | 2018-03-29 15:54 | CP.PCM.PN ---
Subjective - Date & Time of Evaluation Date of Evaluation: 03/29/18 Time of Evaluation: 10:20 - Subjective Subjective: clinically same Objective - Vital Signs/Intake and Output Vital Signs (last 24 hours): Temp Pulse Resp BP Pulse Ox 97.9 F 60 20 142/66 97 03/29/18 07:00 03/29/18 08:03 03/29/18 07:00 03/29/18 07:00 03/29/18 07:00 Intake and Output: 03/29/18 03/29/18 06:59 18:59 Intake Total 880 Output Total 2400 Balance -1520 - Medications Medications: Current Medications Acetaminophen (Tylenol 325mg Tab) 325 mg PO Q4H PRN PRN Reason: Pain, Mild (1-3) Albuterol/Ipratropium (Duoneb 3 Mg/0.5 Mg (3 Ml) Ud) 3 ml INH RQ4 [facility] Last Admin: 03/29/18 11:16 Dose: 3 ml Enoxaparin Sodium (Lovenox) 40 mg SC DAILY [facility] Last Admin: 03/29/18 09:33 Dose: 40 mg Furosemide (Lasix) 40 mg IVP DAILY [facility] Last Admin: 03/29/18 10:02 Dose: Not Given Gabapentin (Neurontin) 300 mg PO BID [facility] Last Admin: 03/29/18 09:35 Dose: 300 mg Ceftriaxone Sodium 1 gm/ (Sodium Chloride) 100 mls @ 100 mls/hr IVPB DAILY [facility] PRN Reason: Protocol Last Admin: 03/29/18 09:36 Dose: Not Given Azithromycin 500 mg/ Sodium (Chloride) 250 mls @ 167 mls/hr IVPB Q24H [facility] PRN Reason: Protocol Last Admin: 03/28/18 22:09 Dose: 167 mls/hr Insulin Detemir (Levemir) 40 unit SC HS [facility] Last Admin: 03/28/18 22:02 Dose: 40 units Insulin Human Regular (Novolin R) 0 unit SC ACHS [facility] PRN Reason: Protocol Last Admin: 03/29/18 13:00 Dose: 2 unit Levothyroxine Sodium (Synthroid) 150 mcg PO DAILY@0630 [facility] Last Admin: 03/29/18 05:48 Dose: 150 mcg Magnesium Hydroxide (Milk Of Magnesia) 30 ml PO PRN PRN PRN Reason: Heartburn Methylprednisolone (Solu-Medrol) 40 mg IV Q8H [facility] Last Admin: 03/29/18 09:36 Dose: Not Given Montelukast Sodium (Singulair) 10 mg PO HS [facility] Last Admin: 03/28/18 22:04 Dose: 10 mg Pantoprazole Sodium (Protonix Inj) 40 mg IVP DAILY [facility] Last Admin: 03/29/18 09:35 Dose: Not Given Vitamin A (Vitamin A & D Oint Ud Foilpak) 1 ea TOP Q6 [facility] Last Admin: 03/29/18 13:17 Dose: 1 ea - Labs Labs: 03/29/18 11:44 03/29/18 11:44 - Constitutional Appears: Well - Head Exam Head Exam: ATRAUMATIC, NORMAL INSPECTION, NORMOCEPHALIC - Eye Exam Eye Exam: EOMI, Normal appearance, PERRL Pupil Exam: NORMAL ACCOMODATION, PERRL - ENT Exam ENT Exam: Mucous Membranes Moist, Normal Exam - Neck Exam Neck Exam: Full ROM, Normal Inspection. absent: Lymphadenopathy - Respiratory Exam Respiratory Exam: Decreased Breath Sounds - Cardiovascular Exam Cardiovascular Exam: REGULAR RHYTHM, +S1, +S2 - GI/Abdominal Exam GI & Abdominal Exam: Soft, Diminished Bowel Sounds - Rectal Exam Rectal Exam: Deferred
[2018-03-29] MEDS: Insulin Detemir 100 units/ml Vial (Levemir) SC SCH (21:48)
--- NOTE | 2018-03-29 22:12 | CP.PCM.PN ---
Subjective - Date & Time of Evaluation Date of Evaluation: 03/29/18 Time of Evaluation: 20:20 - Subjective Subjective: patient seen and examined Lying comfortably in no acute distress BiPAP at night or as needed Overall condition much improved Fair appetite Objective - Vital Signs/Intake and Output Vital Signs (last 24 hours): Temp Pulse Resp BP Pulse Ox 99.1 F 74 20 146/78 99 03/29/18 15:00 03/29/18 15:00 03/29/18 15:00 03/29/18 15:00 03/29/18 15:00 Intake and Output: 03/29/18 03/30/18 18:59 06:59 Intake Total 400 Output Total 1000 Balance -600 - Medications Medications: Current Medications Acetaminophen (Tylenol 325mg Tab) 325 mg PO Q4H PRN PRN Reason: Pain, Mild (1-3) Albuterol/Ipratropium (Duoneb 3 Mg/0.5 Mg (3 Ml) Ud) 3 ml INH RQ4 [facility] Last Admin: 03/29/18 19:13 Dose: 3 ml Carbidopa/Levodopa (Sinemet) 2 tab PO TID [facility] Last Admin: 03/29/18 18:51 Dose: 2 tab Carvedilol (Coreg) 25 mg PO DAILY [facility] Enoxaparin Sodium (Lovenox) 40 mg SC DAILY [facility] Last Admin: 03/29/18 09:33 Dose: 40 mg Furosemide (Lasix) 40 mg IVP DAILY [facility] Last Admin: 03/29/18 10:02 Dose: Not Given Gabapentin (Neurontin) 300 mg PO BID [facility] Last Admin: 03/29/18 17:52 Dose: 300 mg Ceftriaxone Sodium 1 gm/ (Sodium Chloride) 100 mls @ 100 mls/hr IVPB DAILY [facility] PRN Reason: Protocol Last Admin: 03/29/18 09:36 Dose: Not Given Azithromycin 500 mg/ Sodium (Chloride) 250 mls @ 167 mls/hr IVPB Q24H [facility] PRN Reason: Protocol Last Admin: 03/28/18 22:09 Dose: 167 mls/hr Insulin Detemir (Levemir) 40 unit SC HS [facility] Last Admin: 03/29/18 21:48 Dose: 40 units Insulin Human Regular (Novolin R) 0 unit SC ACHS [facility] PRN Reason: Protocol Last Admin: 03/29/18 17:19 Dose: Not Given Levothyroxine Sodium (Synthroid) 150 mcg PO DAILY@0630 [facility] Last Admin: 03/29/18 05:48 Dose: 150 mcg Magnesium Hydroxide (Milk Of Magnesia) 30 ml PO PRN PRN PRN Reason: Heartburn Methylprednisolone (Solu-Medrol) 40 mg IV Q8H [facility] Last Admin: 03/29/18 17:30 Dose: Not Given Montelukast Sodium (Singulair) 10 mg PO HS [facility] Last Admin: 03/29/18 21:44 Dose: 10 mg Pantoprazole Sodium (Protonix Inj) 40 mg IVP DAILY [facility] Last Admin: 03/29/18 09:35 Dose: Not Given Vitamin A (Vitamin A & D Oint Ud Foilpak) 1 ea TOP Q6 [facility] Last Admin: 03/29/18 17:52 Dose: 1 ea - Labs Labs: 03/29/18 11:44 03/29/18 11:44 - Head Exam Head Exam: ATRAUMATIC, NORMOCEPHALIC - ENT Exam ENT Exam: Mucous Membranes Moist, Normal Exam - Respiratory Exam Respiratory Exam: Clear to Ausculation Bilateral - Cardiovascular Exam Cardiovascular Exam: REGULAR RHYTHM Assessment and Plan (1) COPD exacerbation Status: Acute (2) Altered mental status Status: Acute (3) FESTUS (obstructive sleep apnea) Status: Acute
[2018-03-29] MEDS: Azithromycin 500 MG in Sodium Chloride 0.9% 250 ML IVPB SCH (22:25)
[2018-03-30] MEDS: Vitamins A & D Oint UD Foilpak TOP SCH ×4 (00:11→17:33)
[2018-03-30] MEDS: Albuterol-Ipratrop 3 mg / 0.5 (3 ml) UD INH SCH ×6 (03:35→23:35)
[2018-03-30] MEDS: Levothyroxine 150 MCG TAB PO SCH (05:55)
[2018-03-30] MEDS: (Novolin R) Insulin Human Regular 100 units/ml vial SC SCH ×4 (07:30→21:52)
[2018-03-30] MEDS: Enoxaparin 40 mg Syringe SC SCH (09:15)
--- NOTE | 2018-03-30 13:25 | CP.PCM.PN ---
Subjective - Date & Time of Evaluation Date of Evaluation: 03/30/18 Time of Evaluation: 10:00 - Subjective Subjective: clinically same Objective - Vital Signs/Intake and Output Vital Signs (last 24 hours): Temp Pulse Resp BP Pulse Ox 98.2 F 70 20 158/85 H 97 03/30/18 07:30 03/30/18 07:42 03/30/18 07:30 03/30/18 09:17 03/30/18 07:30 Intake and Output: 03/30/18 03/30/18 06:59 18:59 Intake Total 360 Output Total 2220 Balance -1860 - Medications Medications: Current Medications Acetaminophen (Tylenol 325mg Tab) 325 mg PO Q4H PRN PRN Reason: Pain, Mild (1-3) Albuterol/Ipratropium (Duoneb 3 Mg/0.5 Mg (3 Ml) Ud) 3 ml INH RQ4 [facility] Last Admin: 03/30/18 11:15 Dose: 3 ml Carbidopa/Levodopa (Sinemet) 2 tab PO TID [facility] Last Admin: 03/30/18 09:15 Dose: 2 tab Carvedilol (Coreg) 25 mg PO DAILY [facility] Last Admin: 03/30/18 09:17 Dose: 25 mg Enoxaparin Sodium (Lovenox) 40 mg SC DAILY [facility] Last Admin: 03/30/18 09:15 Dose: 40 mg Furosemide (Lasix) 40 mg IVP DAILY [facility] Last Admin: 03/30/18 09:19 Dose: Not Given Gabapentin (Neurontin) 300 mg PO BID [facility] Last Admin: 03/30/18 09:15 Dose: 300 mg Ceftriaxone Sodium 1 gm/ (Sodium Chloride) 100 mls @ 100 mls/hr IVPB DAILY [facility] PRN Reason: Protocol Last Admin: 03/30/18 09:20 Dose: Not Given Azithromycin 500 mg/ Sodium (Chloride) 250 mls @ 167 mls/hr IVPB Q24H [facility] PRN Reason: Protocol Last Admin: 03/29/18 22:25 Dose: Not Given Insulin Detemir (Levemir) 40 unit SC HS [facility] Last Admin: 03/29/18 21:48 Dose: 40 units Insulin Human Regular (Novolin R) 0 unit SC ACHS [facility] PRN Reason: Protocol Last Admin: 03/30/18 07:30 Dose: Not Given Levothyroxine Sodium (Synthroid) 150 mcg PO DAILY@0630 [facility] Last Admin: 03/30/18 05:55 Dose: 150 mcg Magnesium Hydroxide (Milk Of Magnesia) 30 ml PO PRN PRN PRN Reason: Heartburn Methylprednisolone (Solu-Medrol) 40 mg IV Q8H [facility] Last Admin: 03/30/18 09:21 Dose: Not Given Montelukast Sodium (Singulair) 10 mg PO HS [facility] Last Admin: 03/29/18 21:44 Dose: 10 mg Pantoprazole Sodium (Protonix Inj) 40 mg IVP DAILY [facility] Last Admin: 03/30/18 09:20 Dose: Not Given Vitamin A (Vitamin A & D Oint Ud Foilpak) 1 ea TOP Q6 [facility] Last Admin: 03/30/18 05:55 Dose: 1 ea - Labs Labs: 03/29/18 11:44 03/29/18 11:44 - Constitutional Appears: Well - Head Exam Head Exam: ATRAUMATIC, NORMAL INSPECTION, NORMOCEPHALIC - Eye Exam Eye Exam: EOMI, Normal appearance, PERRL Pupil Exam: NORMAL ACCOMODATION, PERRL - ENT Exam ENT Exam: Mucous Membranes Moist, Normal Exam - Neck Exam Neck Exam: Full ROM, Normal Inspection. absent: Lymphadenopathy - Respiratory Exam Respiratory Exam: Decreased Breath Sounds - Cardiovascular Exam Cardiovascular Exam: REGULAR RHYTHM, +S1, +S2 - GI/Abdominal Exam GI & Abdominal Exam: Soft, Diminished Bowel Sounds - Rectal Exam Rectal Exam: Deferred
[2018-03-30] MEDS: Insulin Detemir 100 units/ml Vial (Levemir) SC SCH (21:52)
--- NOTE | 2018-03-30 22:14 | CARD ---
APPROVED REPORT Date of service: 03/26/2018 EKG Measurement Heart [id number] <Conclusion> Sinus rhythm with premature atrial complexes Incomplete right bundle branch block Nonspecific ST and T wave abnormality Abnormal ECG
[2018-03-30] MEDS: Azithromycin 500 MG in Sodium Chloride 0.9% 250 ML IVPB SCH (23:02)
[2018-03-31] MEDS: Vitamins A & D Oint UD Foilpak TOP SCH ×2 (00:52→05:35)
[2018-03-31] MEDS: Albuterol-Ipratrop 3 mg / 0.5 (3 ml) UD INH SCH ×3 (03:16→13:34)
[2018-03-31] MEDS: Levothyroxine 150 MCG TAB PO SCH (05:35)
[2018-03-31] MEDS: (Novolin R) Insulin Human Regular 100 units/ml vial SC SCH ×2 (07:51→11:53)
[2018-03-31 08:52] VITALS: BP 145/93; PULSE 80; TEMP 98; O2SAT 100
[2018-03-31] MEDS: Enoxaparin 40 mg Syringe SC SCH (10:57)
--- NOTE | 2018-03-31 15:26 | CP.PCM.PN ---
Subjective - Date & Time of Evaluation Date of Evaluation: 03/31/18 Time of Evaluation: 08:20 - Subjective Subjective: patient seen and examined Lying comfortably in no acute distress No cough Afebrile On BiPAP at night Stable from pulmonary standpoint Taper steroids Nebulizer treatment Objective - Vital Signs/Intake and Output Vital Signs (last 24 hours): Temp Pulse Resp BP Pulse Ox 98.0 F 80 20 145/93 H 100 03/31/18 07:25 03/31/18 07:25 03/31/18 07:25 03/31/18 10:58 03/31/18 07:25 Intake and Output: 03/31/18 03/31/18 06:59 18:59 Intake Total 360 Output Total 2400 Balance -2040 - Medications Medications: Current Medications Acetaminophen (Tylenol 325mg Tab) 325 mg PO Q4H PRN PRN Reason: Pain, Mild (1-3) Albuterol/Ipratropium (Duoneb 3 Mg/0.5 Mg (3 Ml) Ud) 3 ml INH RQ4 [facility] Last Admin: 03/31/18 13:34 Dose: 3 ml Carbidopa/Levodopa (Sinemet) 2 tab PO TID [facility] Last Admin: 03/31/18 14:01 Dose: 2 tab Carvedilol (Coreg) 25 mg PO DAILY [facility] Last Admin: 03/31/18 10:58 Dose: 25 mg Enoxaparin Sodium (Lovenox) 40 mg SC DAILY [facility] Last Admin: 03/31/18 10:57 Dose: 40 mg Furosemide (Lasix) 40 mg IVP DAILY [facility] Last Admin: 03/31/18 10:59 Dose: Not Given Gabapentin (Neurontin) 300 mg PO BID [facility] Last Admin: 03/31/18 10:57 Dose: 300 mg Ceftriaxone Sodium 1 gm/ (Sodium Chloride) 100 mls @ 100 mls/hr IVPB DAILY [facility] PRN Reason: Protocol Last Admin: 03/31/18 11:00 Dose: Not Given Azithromycin 500 mg/ Sodium (Chloride) 250 mls @ 167 mls/hr IVPB Q24H [facility] PRN Reason: Protocol Last Admin: 03/30/18 23:02 Dose: Not Given Insulin Detemir (Levemir) 40 unit SC HS [facility] Last Admin: 03/30/18 21:52 Dose: 40 units Insulin Human Regular (Novolin R) 0 unit SC ACHS [facility] PRN Reason: Protocol Last Admin: 03/31/18 11:53 Dose: Not Given Levothyroxine Sodium (Synthroid) 150 mcg PO DAILY@0630 [facility] Last Admin: 03/31/18 05:35 Dose: 150 mcg Magnesium Hydroxide (Milk Of Magnesia) 30 ml PO PRN PRN PRN Reason: Heartburn Methylprednisolone (Solu-Medrol) 40 mg IV Q8H [facility] Last Admin: 03/31/18 11:00 Dose: Not Given Montelukast Sodium (Singulair) 10 mg PO HS [facility] Last Admin: 03/30/18 21:52 Dose: 10 mg Pantoprazole Sodium (Protonix Inj) 40 mg IVP DAILY [facility] Last Admin: 03/31/18 11:00 Dose: Not Given Vitamin A (Vitamin A & D Oint Ud Foilpak) 1 ea TOP Q6 [facility] Last Admin: 03/31/18 05:35 Dose: 1 ea - Labs Labs: 03/29/18 11:44 03/29/18 11:44 Assessment and Plan (1) COPD exacerbation Status: Acute (2) Altered mental status Status: Acute (3) FESTUS (obstructive sleep apnea) Status: Acute
== END 2018-03-31 15:43 | DRG 193 ==
LOC: C.ER 18:39 → C.9E 22:36 → C.6T 22:59
PROVIDERS: ADMIT Internal Medicine Nephrology; ATTEND Internal Medicine Nephrology
PROC: 5A09557 Assistance with Respiratory Ventilation, Greater than 96 Consecutive Hours, Continuous Positive Airway Pressure (ICD-10-PCS; principal; 2018-03-26)
DX: J18.9 Pneumonia, unspecified organism (principal); J96.92 Respiratory failure, unspecified with hypercapnia; J44.0 Chronic obstructive pulmonary disease with (acute) lower respiratory infection; Z68.43 Body mass index [BMI] 50.0-59.9, adult; G47.33 Obstructive sleep apnea (adult) (pediatric); I10 Essential (primary) hypertension; G20 Parkinson's disease; F31.9 Bipolar disorder, unspecified; F03.90 Unspecified dementia, unspecified severity, without behavioral disturbance, psychotic disturbance, mood disturbance, and anxiety; E66.01 Morbid (severe) obesity due to excess calories; E11.9 Type 2 diabetes mellitus without complications; E03.9 Hypothyroidism, unspecified; Z79.4 Long term (current) use of insulin; Z87.891 Personal history of nicotine dependence; Z96.651 Presence of right artificial knee joint

== ENCOUNTER 2018-04-08 20:04 | Inpatient (IN) | payer MEDICARE, MEDICAID ==
[2018-04-08 20:04] VITALS: BMI 53.1
[2018-04-08 21:10] LABS: BASO # 0.1 K/uL (0.0-0.2); BASO % 0.7 % (0.0-2.0); EOS # 0.1 K/uL (0.0-0.7); EOS % 0.7 % (0.0-4.0); HEMOGLOBIN 11.3 g/dL (11.0-16.0); LYMPH # 1.4 K/uL (1.0-4.3); MEAN CORPUSCULAR HEMOGLOBIN 27.8 pg (27.0-31.0); MEAN CORPUSCULAR HGB CONC 30.6 g/dL (33.0-37.0); MEAN PLATELET VOLUME 8.5 fL (7.2-11.7); MONO # 1.1 K/uL (0.0-0.8); MONO % 7.5 % (0.0-10.0); NEUT # 12.4 K/uL (1.8-7.0); NEUT % 82.1 % (50.0-75.0); NRBC % 0.1 % (0.0-2.0); PLATELET COUNT 330 K/uL (130-400); RBC 4.06 Mil/uL (3.80-5.20); RED CELL DISTRIBUTION WIDTH 15.7 % (11.5-14.5)
[2018-04-08 21:13] LABS: MEAN CELL VOLUME 90.9 fL (81.0-99.0); WHITE BLOOD COUNT 15.1 K/uL (4.8-10.8)
--- NOTE | 2018-04-08 21:29 | C.PDOC ---
History Of Present Illness 72yo female, with history of anemia, bipolar disorder, COPD, hypertension, sleep apnea, is brought to ER by EMS from shelter with complaitns of shortness of breath. Patient reportedly refused BIPAP while at shelter but in the ER is agreeable. She also reports a mid-chest pressure sensation. A full HPI and ROS is unobtainable due to generalized lethargy. Of note, patient is DNI. Time Seen by Provider: 04/08/18 20:58 Chief Complaint (Nursing): Shortness Of Breath History Per: EMS History/Exam Limitations: other (generalized lethargy) Past Medical History Reviewed: Historical Data, Nursing Documentation, Vital Signs Vital Signs: Last Vital Signs Temp 99.2 F 04/08/18 20:11 Pulse 62 04/08/18 23:55 Resp 21 04/08/18 23:38 BP 113/51 L 04/08/18 23:38 Pulse Ox 94 L 04/08/18 23:38 - Medical History PMH: Anemia, Anxiety, Arthritis, Bipolar Disorder, COPD, Dementia, Depression, HTN, Hypothyroidism, Parkinson's Disease, Sleep Apnea (on Bipap) Denies: Chronic Kidney Disease Surgical History: No Surg Hx - [facility] Procedures ASSISTANCE WITH RESPIRATORY VENTILATION, 24-96 HRS, CPAP (03/02/18) ASSISTANCE WITH RESPIRATORY VENTILATION, >96 HRS, CPAP (03/26/18) CONTINUOUS INVASIVE MECHANICAL VENTILATION <96 CONSEC HRS (12/29/12) CONTINUOUS INVASIVE MECHANICAL VENTILATION =/>96 CONSEC HRS (02/28/13) DX ULTRASOUND-HEART (08/29/13) EXCISION OF RIGHT BREAST, OPEN APPROACH, DIAGNOSTIC (09/18/15) INCIS W REM OF FORIEGN BODY OR DEV FROM SKIN & SUBCUT TISSUE (08/29/13) INSERT ENDOTRACHEAL TUBE (02/28/13) INSERT INDWELLING CATH (12/26/12) INSERTION OF ENDOTRACHEAL AIRWAY INTO TRACHEA, VIA OPENING (07/14/17) INSERTION OF INFUSION DEV INTO SUP VENA CAVA, PERC APPROACH (10/21/16) INSERTION OF INFUSION DEVICE INTO R BRACH ART, PERC APPROACH (12/11/17) NON-INVASIVE MECHANICAL VENTILATION (08/29/13) RESPIRATORY VENTILATION, 24-96 CONSECUTIVE HOURS (07/14/17) Family History: States: Unknown Family Hx - Social History Hx Tobacco Use: (Unknown) Hx Alcohol Use: No Hx Substance Use: No - Immunization History Hx Tetanus Toxoid Vaccination: No Hx Influenza Vaccination: No Hx Pneumococcal Vaccination: No (05/28/2009) Review Of Systems Review Of Systems: ROS cannot be obtained secondary to pt's inabilty to answer questions. Physical Exam - Physical Exam Additional Physical Exam Comments: Constitutional: Morbidly obese. Head: Normocephalic. Atraumatic. Eyes: PERRL. ENT: Sputum present in ooropharynx. Neck: Supple. Cardiovascular: Regular rate. Radial pulse 2+ bilaterally. Chest: No tenderness. Respiratory: Clear to auscultation bilaterally. Pulse oxygen dropped to mid 80' s on room air. GI: Soft. Nontender. Back: No CVA tenderness. Musculoskeletal: No tenderness or swelling of extremities. Skin: No rash. Neurologic: Drowsy but answering questions with 1 word answers. ED Course And Treatment - Laboratory Results Result Diagrams: 04/08/18 21:04 04/08/18 21:50 O2 Sat by Pulse Oximetry: 99 (O2 3.5L via NC) Pulse Ox Interpretation: Normal Critical Care Time - Critical Care Note Total Time (in mins): 45 Comments: Required frequent reassessment and specialty consultation for life threatening condition. Documented critical care: time excludes all time spent performing seperately billable procedures. Medical Decision Making Medical Decision Making: Impression: 72yo female with shortness of breath, mid-chest pain Plan: * Labs * EKG * BIPAP * Urinalysis EKG: Sinus rhythm 66 beats per minute Poor baseline No obvious ST elevations CXR poor lung volumes, no obvious infiltrate or consolidation. Placed on BiPap, repeat abg no improvement in pCO2. Patient continues to be obtunded. Consulted ICU, According to Dr. Rivera, he discussed case with son who gives permission to intubate. Patient's DNI indicates that should she no longer have capacity to make decisions, she gives full authorization to her son to make these decisions. Disposition - Disposition Referrals: Rita Foster MD [Primary Care Provider] - Disposition: HOSPITALIZED Disposition Time: 00:32 Condition: CRITICAL Forms: [facility] (Pakistani) - Clinical Impression Clinical Impression: Hypercapnic respiratory failure - Scribe Statement The provider has reviewed the documentation as recorded by the Candelaria Kim Provider Attestation: All medical record entries made by the Scribe were at my direction and personally dictated by me. I have reviewed the chart and agree that the record accurately reflects my personal performance of the history, physical exam, medical decision making, and the department course for this patient. I have also personally directed, reviewed, and agree with the discharge instructions and disposition.
[2018-04-08 21:34] LABS: ANISOCYTOSIS SLIGHT; HYPOCHROMIC SLIGHT; LYMPHOCYTE 11 % (20-40); MONOCYTE 7 % (0-10); NEUTROPHIL 82 % (50-75); PLATELET ESTIMATE NORMAL (NORMAL); POIKILOCYTOSIS SLIGHT; TOTAL CELLS COUNTED 100
[2018-04-08 21:40] LABS: ABG ALLEN TEST POS; ARTERIAL BLOOD GAS HCO3 35.4 mmol/L (21-28); ARTERIAL BLOOD GAS O2 SAT 97.9 % (95-98); ARTERIAL BLOOD GAS PCO2 120 mm/Hg (35-45); ARTERIAL BLOOD GAS PO2 100 mm/Hg (80-100); ARTERIAL BLOOD GAS TCO2 50.6 mmol/L (22-28)
[2018-04-08 21:50] LABS: PROTHROMBIN TIME 10.7 SECONDS (9.7-12.2)
[2018-04-08 22:15] LABS: ALB/GLOB RATIO 1.2 (1.0-2.1); ALBUMIN 3.9 g/dL (3.5-5.0); ALT/SGPT 10 U/L (9-52); AST/SGOT 10 U/L (14-36); BLOOD UREA NITROGEN 25 mg/dL (7-17); CALCIUM 8.6 mg/dl (8.6-10.4); GFR NON-AFRICAN AMERICAN > 60
[2018-04-08 22:24] LABS: B-TYPE NATRIURETIC PEPTIDE 311 pg/mL (0-900); CK-MB 0.57 ng/mL (0.0-3.38)
[2018-04-08] MEDS ORDERED: Moxifloxacin IV 400mg/250ml NS 400 MG/250 ML BAG IVPB ONE ×2 (22:38→23:23)
[2018-04-08 23:38] LABS: ARTERIAL BLOOD GAS HCO3 37.3 mmol/L (21-28); ARTERIAL BLOOD GAS HEMOGLOBIN 10.9 g/dL (11.7-17.4); ARTERIAL BLOOD GAS O2 SAT 96.5 % (95-98); ARTERIAL BLOOD GAS PCO2 120 mm/Hg (35-45); ARTERIAL BLOOD GAS PH 7.21 (7.35-7.45); ARTERIAL BLOOD GAS PO2 77 mm/Hg (80-100); ARTERIAL BLOOD GAS TCO2 51.7 mmol/L (22-28)
[2018-04-09] MEDS ORDERED: Etomidate 20 mg/10ml Inj IV ONE (00:48)
--- NOTE | 2018-04-09 00:58 | CP.CCUPN ---
CCU Subjective - Physician Review Events Since Last Encounter (Free Text): 04/09/18 The patient was Seen/interviewed and examined by me at the bedside, Medical records reviewed and Management issues were discussed and formulated with the house staff. Events reviewed 77 Y/O F with PMHx Hypertension, Anemia, Anxiety, Arthritis, Bipolar Disorder, COPD, Dementia, Depression, HTN, Hypothyroidism, Parkinson's Disease and Sleep Apnea (on Bipap) Who [facility] with complains of shortness of breath and mid-chest pressure sensation. Patient reportedly refused BIPAP while at [facility] Upon evaluation in the Emergency department, she was on BIPAP, ABG with severe Acute and chronic respiratory acidosis, Pt obtruded, not following any commands, I called the son discussed the patient code status and her wishes for DNI, Son agreeable for intubation (as per JULIANNA, he is assigned HCP in case she is not able to make decisions) Patient was urgently intubated, tolerated well CCU Objective - Vital Signs / Intake & Output Vital Signs (Last 4 hours): Vital Signs Pulse Resp BP Pulse Ox 04/09/18 00:33 99 04/08/18 23:55 62 04/08/18 23:38 62 21 113/51 L 94 L 04/08/18 22:00 64 04/08/18 21:02 16 99 Intake and Output (Last 8hrs): Intake & Output 04/08/18 04/08/18 04/09/18 14:59 22:59 06:59 Weight 300 lb - Physical Exam Physical Exam Limitations: Positive for: Altered Mental Status, Clinical Condition, Uncooperative Head: Positive for: Atraumatic, Normocephalic Pupils: Positive for: PERRL, Sluggish. Negative for: Non-Reactive Extroacular Muscles: Positive for: EOMI Conjunctiva: Positive for: Normal. Negative for: Injected, Icteric Mouth: Positive for: Dry Pharnyx: Positive for: Normal Nose (External): Positive for: Atraumatic. Negative for: Abrasion Nose (Internal): Positive for: Normal Inspection Neck: Positive for: Normal Range of Motion, MIDLINE TENDERNESS, Trachea Midline. Negative for: JVD, Lymphadenopathy, Bruit Respiratory/Chest: Positive for: Respiratory Distress, Accessory Muscle Use, Decreased Breath Sounds, Rhonchi Cardiovascular: Positive for: Regular Rate and Rhythm, Normal S1, S2, Peripheal Pulses Present. Negative for: Murmurs, Irregular Rhythm, Tachycardic, Bradycardic Abdomen: Positive for: Distention, Normal Bowel Sounds. Negative for: Tenderness Neurological: Negative for: GCS=15 Psychiatric: Negative for: Alert, Oriented x 3 - Patient Studies Lab Studies: Lab Studies 04/08/18 04/08/18 04/08/18 Range/Units 23:30 21:50 21:38 WBC (4.8-10.8) K/uL RBC (3.80-5.20) Mil/uL Hgb (11.0-16.0) g/dL Hct (34.0-47.0) % MCV (81.0-99.0) fL MCH (27.0-31.0) pg MCHC (33.0-37.0) g/dL RDW (11.5-14.5) % Plt Count (130-400) K/uL MPV (7.2-11.7) fL Neut % (Auto) (50.0-75.0) % Lymph % (Auto) (20.0-40.0) % [place] % (Auto) (0.0-10.0) % Eos % (Auto) (0.0-4.0) % Baso % (Auto) (0.0-2.0) % Neut # (Auto) (1.8-7.0) K/uL Lymph # (Auto) (1.0-4.3) K/uL [place] # (Auto) (0.0-0.8) K/uL Eos # (Auto) (0.0-0.7) K/uL Baso # (Auto) (0.0-0.2) K/uL Neutrophils % (Manual) (50-75) % Lymphocytes % (Manual) (20-40) % Monocytes % (Manual) (0-10) % Platelet Estimate (NORMAL) Hypochromasia (manual) Poikilocytosis (manual Anisocytosis (manual) PT 10.7 (9.7-12.2) SECONDS INR 1.0 APTT 38 H (21-34) SECONDS Puncture Site Rb pCO2 120 H* (35-45) mm/Hg pO2 77 L (80-100) mm/Hg HCO3 37.3 H (21-28) mmol/L ABG pH 7.21 L (7.35-7.45) ABG Total CO2 51.7 H (22-28) mmol/L ABG O2 Saturation 96.5 (95-98) % ABG Base Excess 15.9 H (-2.0-3.0) mmol/L ABG Hemoglobin 10.9 L (11.7-17.4) g/dL ABG Carboxyhemoglobin 2.2 H (0.5-1.5) % POC ABG HHb (Measured) 3.4 (0.0-5.0) % ABG Methemoglobin 0.9 (0.0-3.0) % Donta Test Na ABG Potassium (3.6-5.2) mmol/L A-a O2 Difference 58.0 mm/Hg Respiratory Index 0.8 Hgb O2 Saturation 93.5 L (95.0-98.0) % Sodium 144 (132-148) mmol/l Chloride 91 L (98-107) mmol/L Glucose (65-105) mg/dl Lactate (0.7-2.1) mmol/L Liter Flow Vent Mode Bipap FiO2 40.0 % Inspiratory BiPAP 20 Expiratory BiPAP 10 Crit Value Called To Yazan simpson/rn Crit Value Called By Mark larry/rt Crit Value Read Back Y Blood Gas Notified Time 2340 Potassium 4.1 (3.6-5.2) mmol/L Carbon Dioxide 40 H* (22-30) mmol/L Anion Gap 17 (10-20) BUN 25 H (7-17) mg/dL Creatinine 0.6 L (0.7-1.2) mg/dL Est GFR ( Amer) > 60 Est GFR (Non-Af Amer) > 60 POC Glucose (mg/dL) (65-110) mg/dL Random Glucose 128 H (65-105) mg/dL Calcium 8.6 (8.6-10.4) mg/dl Total Bilirubin 0.3 (0.2-1.3) mg/dL AST 10 L (14-36) U/L ALT 10 (9-52) U/L Alkaline Phosphatase 77 (38-126) U/L Total Creatine Kinase 21 L (30-135) U/L CK-MB (Mass) 0.57 (0.0-3.38) ng/mL Troponin I < 0.0120 (0.00-0.120) ng/mL NT-Pro-B Natriuret Pep 311 (0-900) pg/mL Total Protein 7.1 (6.3-8.3) g/dL Albumin 3.9 (3.5-5.0) g/dL Globulin 3.2 (2.2-3.9) gm/dL Albumin/Globulin Ratio 1.2 (1.0-2.1) Arterial Blood Potassium (3.6-5.2) mmol/L 04/08/18 04/08/18 04/08/18 Range/Units 21:35 21:04 20:12 WBC 15.1 H D (4.8-10.8) K/uL RBC 4.06 (3.80-5.20) Mil/uL Hgb 11.3 (11.0-16.0) g/dL Hct 36.9 (34.0-47.0) % MCV 90.9 D (81.0-99.0) fL MCH 27.8 (27.0-31.0) pg MCHC 30.6 L (33.0-37.0) g/dL RDW 15.7 H (11.5-14.5) % Plt Count 330 (130-400) K/uL MPV 8.5 (7.2-11.7) fL Neut % (Auto) 82.1 H (50.0-75.0) % Lymph % (Auto) 9.0 L (20.0-40.0) % [place] % (Auto) 7.5 (0.0-10.0) % Eos % (Auto) 0.7 (0.0-4.0) % Baso % (Auto) 0.7 (0.0-2.0) % Neut # (Auto) 12.4 H (1.8-7.0) K/uL Lymph # (Auto) 1.4 (1.0-4.3) K/uL [place] # (Auto) 1.1 H (0.0-0.8) K/uL Eos # (Auto) 0.1 (0.0-0.7) K/uL Baso # (Auto) 0.1 (0.0-0.2) K/uL Neutrophils % (Manual) 82 H (50-75) % Lymphocytes % (Manual) 11 L (20-40) % Monocytes % (Manual) 7 (0-10) % Platelet Estimate Normal (NORMAL) Hypochromasia (manual) Slight Poikilocytosis (manual Slight Anisocytosis (manual) Slight PT (9.7-12.2) SECONDS INR APTT (21-34) SECONDS Puncture Site Rradial pCO2 120 H* (35-45) mm/Hg pO2 100 (80-100) mm/Hg HCO3 35.4 H (21-28) mmol/L ABG pH 7.20 L (7.35-7.45) ABG Total CO2 50.6 H (22-28) mmol/L ABG O2 Saturation 97.9 (95-98) % ABG Base Excess 13.5 H (-2.0-3.0) mmol/L ABG Hemoglobin (11.7-17.4) g/dL ABG Carboxyhemoglobin (0.5-1.5) % POC ABG HHb (Measured) (0.0-5.0) % ABG Methemoglobin (0.0-3.0) % Donta Test Pos ABG Potassium 3.5 L (3.6-5.2) mmol/L A-a O2 Difference -50.0 mm/Hg Respiratory Index -0.5 Hgb O2 Saturation (95.0-98.0) % Sodium 144.0 (132-148) mmol/l Chloride 102.0 (98-107) mmol/L Glucose 112 H (65-105) mg/dl Lactate 0.4 L (0.7-2.1) mmol/L Liter Flow 2.0 Vent Mode FiO2 28.0 % Inspiratory BiPAP Expiratory BiPAP Crit Value Called To Crit Value Called By Lacey rosas rcp Crit Value Read Back Y Blood Gas Notified Time 2140 Potassium (3.6-5.2) mmol/L Carbon Dioxide (22-30) mmol/L Anion Gap (10-20) BUN (7-17) mg/dL Creatinine (0.7-1.2) mg/dL Est GFR ( Amer) Est GFR (Non-Af Amer) POC Glucose (mg/dL) 122 H (65-110) mg/dL Random Glucose (65-105) mg/dL Calcium (8.6-10.4) mg/dl Total Bilirubin (0.2-1.3) mg/dL AST (14-36) U/L ALT (9-52) U/L Alkaline Phosphatase (38-126) U/L Total Creatine Kinase (30-135) U/L CK-MB (Mass) (0.0-3.38) ng/mL Troponin I (0.00-0.120) ng/mL NT-Pro-B Natriuret Pep (0-900) pg/mL Total Protein (6.3-8.3) g/dL Albumin (3.5-5.0) g/dL Globulin (2.2-3.9) gm/dL Albumin/Globulin Ratio (1.0-2.1) Arterial Blood Potassium 3.5 L (3.6-5.2) mmol/L Laboratory Results - last 24 hr 04/08/18 04/08/18 04/08/18 20:12 21:04 21:35 WBC 15.1 H D RBC 4.06 Hgb 11.3 Hct 36.9 MCV 90.9 D MCH 27.8 MCHC 30.6 L RDW 15.7 H Plt Count 330 MPV 8.5 Neut % (Auto) 82.1 H Lymph % (Auto) 9.0 L [place] % (Auto) 7.5 Eos % (Auto) 0.7 Baso % (Auto) 0.7 Neut # (Auto) 12.4 H Lymph # (Auto) 1.4 [place] # (Auto) 1.1 H Eos # (Auto) 0.1 Baso # (Auto) 0.1 Neutrophils % (Manual) 82 H Lymphocytes % (Manual) 11 L Monocytes % (Manual) 7 Platelet Estimate Normal Hypochromasia (manual) Slight Poikilocytosis (manual Slight Anisocytosis (manual) Slight PT INR APTT Puncture Site Rradial pCO2 120 H* pO2 100 HCO3 35.4 H ABG pH 7.20 L ABG Total CO2 50.6 H ABG O2 Saturation 97.9 ABG Base Excess 13.5 H ABG Hemoglobin ABG Carboxyhemoglobin POC ABG HHb (Measured) ABG Methemoglobin Donta Test Pos ABG Potassium 3.5 L A-a O2 Difference -50.0 Respiratory Index -0.5 Hgb O2 Saturation Sodium 144.0 Chloride 102.0 Glucose 112 H Lactate 0.4 L Liter Flow 2.0 Vent Mode FiO2 28.0 Inspiratory BiPAP Expiratory BiPAP Crit Value Called To Crit Value Called By Lacey rosas rcp Crit Value Read Back Y Blood Gas Notified Time 2140 Potassium Carbon Dioxide Anion Gap BUN Creatinine Est GFR ( Amer) Est GFR (Non-Af Amer) POC Glucose (mg/dL) 122 H Random Glucose Calcium Total Bilirubin AST ALT Alkaline Phosphatase Total Creatine Kinase CK-MB (Mass) Troponin I NT-Pro-B Natriuret Pep Total Protein Albumin Globulin Albumin/Globulin Ratio Arterial Blood Potassium 3.5 L 04/08/18 04/08/18 04/08/18 21:38 21:50 23:30 WBC RBC Hgb Hct MCV MCH MCHC RDW Plt Count MPV Neut % (Auto) Lymph % (Auto) [place] % (Auto) Eos % (Auto) Baso % (Auto) Neut # (Auto) Lymph # (Auto) [place] # (Auto) Eos # (Auto) Baso # (Auto) Neutrophils % (Manual) Lymphocytes % (Manual) Monocytes % (Manual) Platelet Estimate Hypochromasia (manual) Poikilocytosis (manual Anisocytosis (manual) PT 10.7 INR 1.0 APTT 38 H Puncture Site Rb pCO2 120 H* pO2 77 L HCO3 37.3 H ABG pH 7.21 L ABG Total CO2 51.7 H ABG O2 Saturation 96.5 ABG Base Excess 15.9 H ABG Hemoglobin 10.9 L ABG Carboxyhemoglobin 2.2 H POC ABG HHb (Measured) 3.4 ABG Methemoglobin 0.9 Donta Test Na ABG Potassium A-a O2 Difference 58.0 Respiratory Index 0.8 Hgb O2 Saturation 93.5 L Sodium 144 Chloride 91 L Glucose Lactate Liter Flow Vent Mode Bipap FiO2 40.0 Inspiratory BiPAP 20 Expiratory BiPAP 10 Crit Value Called To Yazan simpson/angie Crit Value Called By Mark larry/rt Crit Value Read Back Y Blood Gas Notified Time 2340 Potassium 4.1 Carbon Dioxide 40 H* Anion Gap 17 BUN 25 H Creatinine 0.6 L Est GFR ( Amer) > 60 Est GFR (Non-Af Amer) > 60 POC Glucose (mg/dL) Random Glucose 128 H Calcium 8.6 Total Bilirubin 0.3 AST 10 L ALT 10 Alkaline Phosphatase 77 Total Creatine Kinase 21 L CK-MB (Mass) 0.57 Troponin I < 0.0120 NT-Pro-B Natriuret Pep 311 Total Protein 7.1 Albumin 3.9 Globulin 3.2 Albumin/Globulin Ratio 1.2 Arterial Blood Potassium EKG/Cardiology Studies: Cardiology / EKG Studies 04/08/18 20:41 EKG [ELECTROCARDIOGRAM] Stat Comment: Mode Of Transportation: STRETCHER Reason For Exam: SOB Fingerstick Blood Sugar Results: 122 Review of Systems - Review of Systems Systems not reviewed;Unavailable: Altered Mental Status Critical Care Progress Note - Extremities/Vascular Does the Patient have a Central Venous Catheter?: No Does the Patient need a Central Venous Catheter?: No Does the Patient have a Edmond Catheter?: No Does the Patient need a Edmond Catheter?: No Assessment/Plan (1) Acute respiratory acidosis Current Visit: Yes Status: Acute Priority: High (2) Acute respiratory failure with hypercapnia Current Visit: Yes Status: Acute Priority: High (3) Altered mental status Current Visit: Yes Status: Acute Priority: High (4) COPD (chronic obstructive pulmonary disease) Current Visit: Yes Status: Acute Priority: High (5) COPD exacerbation Current Visit: Yes Status: Acute Priority: High (6) FESTUS (obstructive sleep apnea) Current Visit: Yes Status: Acute Priority: High - Assessment and Plan (Free Text) Assessment: Acute bronchospasm likely related to COPD exacerbation likely precipitated by Viral URI. No clinical evidence of pneumonia or PE ABG with acute respiratory acidosis Admit to the ICU Frequent neuro check Full vent support overnight Post intubation CXR and ABG Avoid alkalemia and hyperoxia. ALBUTEROL/Atrovent Nebs q4h RTC IV Methylprednisolone to 80 mg IVPB Q8H HOB maintained at 30 degrees. Maintain aspiration precutions Aggressive pulmonary toilet, chest PT, suctioning
--- NOTE | 2018-04-09 00:59 | PCM.PROC ---
Procedures Attestation:: I certify that I have explained the specified Operation(s) or Procedure(s), risks, benefits and reasonable alternatives to the Patient and/or other person responsible. The opportunity was given to ask questions and all questions answered - Intubation Time Out Performed: Yes Sedative: Etomidate Laryngoscope: [place] ET Tube Size: 8.0 ET Tube Placement Confirmation: Visualized Passing Through Cords, Breath Sounds Equal Bilaterally, No Breath Sounds Over Epigastrum, Confirmation w/Capnometry Patient Tolerated Procedure: Well, No Complications
[2018-04-09] MEDS: Propofol 10 mg/ml 1,000 MG/100 ML VIAL IV PRN ×4 (01:40→21:22)
[2018-04-09] MEDS: Albuterol-Ipratrop 3 mg / 0.5 (3 ml) UD INH SCH ×5 (03:30→19:57)
[2018-04-09 05:29] LABS: ARTERIAL BLOOD GAS HCO3 36.9 mmol/L (21-28); ARTERIAL BLOOD GAS O2 SAT 97.9 % (95-98); ARTERIAL BLOOD GAS PCO2 39 mm/Hg (35-45); ARTERIAL BLOOD GAS PO2 68 mm/Hg (80-100); ARTERIAL BLOOD GAS TCO2 39.5 mmol/L (22-28)
[2018-04-09 06:27] LABS: BASO % 0.2 % (0.0-2.0); HEMOGLOBIN 10.8 g/dL (11.0-16.0); LYMPH # 0.9 K/uL (1.0-4.3); MEAN CELL VOLUME 88.9 fL (81.0-99.0); MEAN CORPUSCULAR HEMOGLOBIN 28.3 pg (27.0-31.0); MEAN CORPUSCULAR HGB CONC 31.9 g/dL (33.0-37.0); MEAN PLATELET VOLUME 8.6 fL (7.2-11.7); MONO # 0.2 K/uL (0.0-0.8); MONO % 1.6 % (0.0-10.0); NEUT % 91.2 % (50.0-75.0); NRBC % 0.1 % (0.0-2.0); PLATELET COUNT 284 K/uL (130-400); RBC 3.83 Mil/uL (3.80-5.20); RED CELL DISTRIBUTION WIDTH 15.4 % (11.5-14.5); WHITE BLOOD COUNT 12.1 K/uL (4.8-10.8)
[2018-04-09 06:38] LABS: ALB/GLOB RATIO 1.4 (1.0-2.1); ALBUMIN 3.7 g/dL (3.5-5.0); ALT/SGPT 21 U/L (9-52); AST/SGOT 11 U/L (14-36); BLOOD UREA NITROGEN 27 mg/dL (7-17); CALCIUM 8.5 mg/dl (8.6-10.4); GFR NON-AFRICAN AMERICAN > 60
[2018-04-09 08:18] LABS: BANDS 1 % (0-2); LYMPHOCYTE 7 % (20-40); MONOCYTE 2 % (0-10); NEUTROPHIL 90 % (50-75); PLATELET ESTIMATE NORMAL (NORMAL); TOTAL CELLS COUNTED 100
[2018-04-09 08:20] LABS: ROULEAUX FORMATION SLIGHT
[2018-04-09] MEDS: Potassium & Sodium Phosphate PO SCH ×2 (10:30→18:28)
[2018-04-09] MEDS: Enoxaparin 120 mg Syringe SC SCH (10:31)
--- NOTE | 2018-04-09 10:40 | CP.CCUPN ---
<Yecenia Erazo P - Last Filed: 04/09/18 15:27> CCU Subjective - Physician Review Subjective (Free Text): PGY-1 critical care progress note. Patient seen and evaluated at bedside. Patient intubated. FiO2 50%. On propofol for sedation- will start weening off sedation prior to pressure support trial. CCU Objective - Vital Signs / Intake & Output Vital Signs (Last 4 hours): Vital Signs Pulse Resp BP Pulse Ox 04/09/18 10:30 145/70 04/09/18 07:51 72 18 114/65 100 04/09/18 07:31 71 18 129/71 99 04/09/18 07:11 71 18 132/73 99 04/09/18 06:51 71 18 139/73 98 Intake and Output (Last 8hrs): Intake & Output 04/08/18 04/09/18 04/09/18 22:59 06:59 14:59 Intake Total 206.4 120.4 Output Total 150 Balance 206.4 -29.6 Weight 300 lb 295 lb 10.238 oz Intake: IV 100 100 Intake, IV Amount 106.4 20.4 Right Forearm 106.4 20.4 Tube Feeding 0 0 Output: Urine 150 Urine, Voided 150 Other: # Voids Urine, Voided 1 1 # Bowel Movements 0 - Physical Exam Head: Positive for: Atraumatic, Normocephalic Pupils: Negative for: Non-Reactive Nose (External): Negative for: Abrasion Neck: Negative for: JVD, Lymphadenopathy Respiratory/Chest: Positive for: Decreased Breath Sounds, Other (ET tube in place) Cardiovascular: Positive for: Regular Rate and Rhythm, Normal S1, S2. Negative for: Murmurs, Irregular Rhythm, Tachycardic, Bradycardic Abdomen: Positive for: Normal Bowel Sounds. Negative for: Tenderness Lower Extremity: Negative for: Edema Neurological: Positive for: Other (pt sedated and intubated). Negative for: GCS =15 Skin: Positive for: Warm, Dry Psychiatric: Negative for: Alert, Oriented x 3 - Medications Active Medications: Active Medications Generic Name Dose Route Start Last Admin Trade Name Freq PRN Reason Stop Dose Admin Albuterol/Ipratropium 3 ml 04/09/18 04:00 04/09/18 08:02 Duoneb 3 Mg/0.5 Mg (3 Ml) Ud INH 3 ml RQ4 TIMOTEO Administration Carbidopa/Levodopa 1 tab 04/09/18 10:00 Sinemet PO TID TIMOTEO Carvedilol 25 mg 04/09/18 10:00 Coreg PO DAILY TIMOTEO Enoxaparin Sodium 120 mg 04/09/18 10:00 04/09/18 10:31 Lovenox SC 120 mg DAILY TIMOTEO Administration Furosemide 40 mg 04/09/18 10:00 04/09/18 10:30 Lasix PO 40 mg DAILY TIMOTEO Administration Gabapentin 300 mg 04/09/18 10:00 04/09/18 10:30 Neurontin PO 300 mg BID TIMOTEO Administration Propofol 1,000 mg in 100 mls @ 8.165 mls/hr 04/09/18 01:38 04/09/18 10:25 Diprivan IV 20 mcg/kg/min .[id number] PRN 16.329 mls/hr TITRATE PER MD ORDER Administration Protocol 10 MCG/KG/MIN Insulin Detemir 40 unit 04/09/18 22:00 Levemir SC HS TIMOTEO Levothyroxine Sodium 150 mcg 04/09/18 10:15 Synthroid PO DAILY@0630 TIMOTEO Methylprednisolone 80 mg 04/09/18 06:00 04/09/18 05:38 Solu-Medrol IVP 80 mg Q8 TIMOTEO Administration Montelukast Sodium 10 mg 04/09/18 22:00 Singulair PO HS TIMOTEO Pantoprazole Sodium 40 mg 04/09/18 10:00 04/09/18 10:30 Protonix Inj IVP 40 mg DAILY TIMOTEO Administration Potassium Phos/Sodium Phos 1 pkt 04/09/18 10:00 04/09/18 10:30 Neutra-Phos PO 04/11/18 10:01 1 pkt BID TIMOTEO Administration Vitamin A 1 ea 04/09/18 12:00 Vitamin A & D Oint Ud Foilpak TOP Q6 TIMOTEO - Patient Studies Lab Studies: Lab Studies 04/09/18 04/09/18 04/09/18 Range/Units 06:14 06:14 05:00 WBC 12.1 H (4.8-10.8) K/uL RBC 3.83 (3.80-5.20) Mil/uL Hgb 10.8 L (11.0-16.0) g/dL Hct 34.0 (34.0-47.0) % MCV 88.9 D (81.0-99.0) fL MCH 28.3 (27.0-31.0) pg MCHC 31.9 L (33.0-37.0) g/dL RDW 15.4 H (11.5-14.5) % Plt Count 284 (130-400) K/uL MPV 8.6 (7.2-11.7) fL Neut % (Auto) 91.2 H (50.0-75.0) % Lymph % (Auto) 7.0 L (20.0-40.0) % [place] % (Auto) 1.6 (0.0-10.0) % Eos % (Auto) 0.0 (0.0-4.0) % Baso % (Auto) 0.2 (0.0-2.0) % Neut # (Auto) 11.0 H (1.8-7.0) K/uL Lymph # (Auto) 0.9 L (1.0-4.3) K/uL [place] # (Auto) 0.2 (0.0-0.8) K/uL Eos # (Auto) 0.0 (0.0-0.7) K/uL Baso # (Auto) 0.0 (0.0-0.2) K/uL Neutrophils % (Manual) 90 H (50-75) % Band Neutrophils % 1 (0-2) % Lymphocytes % (Manual) 7 L (20-40) % Monocytes % (Manual) 2 (0-10) % Platelet Estimate Normal (NORMAL) Hypochromasia (manual) Poikilocytosis (manual Basophilic Stippling Slight Anisocytosis (manual) Rouleaux Slight PT (9.7-12.2) SECONDS INR APTT (21-34) SECONDS Puncture Site Rb pCO2 39 (35-45) mm/Hg pO2 68 L (80-100) mm/Hg HCO3 36.9 H (21-28) mmol/L ABG pH 7.60 H (7.35-7.45) ABG Total CO2 39.5 H (22-28) mmol/L ABG O2 Saturation 97.9 (95-98) % ABG Base Excess 15.4 H (-2.0-3.0) mmol/L ABG Hemoglobin 11.0 L (11.7-17.4) g/dL ABG Carboxyhemoglobin 1.5 (0.5-1.5) % POC ABG HHb (Measured) 2.0 (0.0-5.0) % ABG Methemoglobin 1.2 (0.0-3.0) % Donta Test Na ABG Potassium (3.6-5.2) mmol/L A-a O2 Difference 240.0 mm/Hg Respiratory Index 3.5 Hgb O2 Saturation 95.3 (95.0-98.0) % Sodium 137 (132-148) mmol/l Chloride 94 L (98-107) mmol/L Glucose (65-105) mg/dl Lactate (0.7-2.1) mmol/L Liter Flow Vent Mode Prvc Mechanical Rate 18 FiO2 50.0 % Tidal Volume 500 PEEP 5 Inspiratory BiPAP Expiratory BiPAP Crit Value Called To Crit Value Called By Crit Value Read Back Blood Gas Notified Time Potassium 4.2 (3.6-5.2) mmol/L Carbon Dioxide 33 H (22-30) mmol/L Anion Gap 14 (10-20) BUN 27 H (7-17) mg/dL Creatinine 0.6 L (0.7-1.2) mg/dL Est GFR ( Amer) > 60 Est GFR (Non-Af Amer) > 60 POC Glucose (mg/dL) (65-110) mg/dL Random Glucose 143 H (65-105) mg/dL Calcium 8.5 L (8.6-10.4) mg/dl Phosphorus 1.9 L (2.5-4.5) mg/dL Magnesium 2.1 (1.6-2.3) mg/dL Total Bilirubin 0.6 (0.2-1.3) mg/dL AST 11 L (14-36) U/L ALT 21 (9-52) U/L Alkaline Phosphatase 74 (38-126) U/L Total Creatine Kinase (30-135) U/L CK-MB (Mass) (0.0-3.38) ng/mL Troponin I (0.00-0.120) ng/mL NT-Pro-B Natriuret Pep (0-900) pg/mL Total Protein 6.4 (6.3-8.3) g/dL Albumin 3.7 (3.5-5.0) g/dL Globulin 2.7 (2.2-3.9) gm/dL Albumin/Globulin Ratio 1.4 (1.0-2.1) Arterial Blood Potassium (3.6-5.2) mmol/L 04/08/18 04/08/18 04/08/18 Range/Units 23:30 21:50 21:38 WBC (4.8-10.8) K/uL RBC (3.80-5.20) Mil/uL Hgb (11.0-16.0) g/dL Hct (34.0-47.0) % MCV (81.0-99.0) fL MCH (27.0-31.0) pg MCHC (33.0-37.0) g/dL RDW (11.5-14.5) % Plt Count (130-400) K/uL MPV (7.2-11.7) fL Neut % (Auto) (50.0-75.0) % Lymph % (Auto) (20.0-40.0) % [place] % (Auto) (0.0-10.0) % Eos % (Auto) (0.0-4.0) % Baso % (Auto) (0.0-2.0) % Neut # (Auto) (1.8-7.0) K/uL Lymph # (Auto) (1.0-4.3) K/uL [place] # (Auto) (0.0-0.8) K/uL Eos # (Auto) (0.0-0.7) K/uL Baso # (Auto) (0.0-0.2) K/uL Neutrophils % (Manual) (50-75) % Band Neutrophils % (0-2) % Lymphocytes % (Manual) (20-40) % Monocytes % (Manual) (0-10) % Platelet Estimate (NORMAL) Hypochromasia (manual) Poikilocytosis (manual Basophilic Stippling Anisocytosis (manual) Rouleaux PT 10.7 (9.7-12.2) SECONDS INR 1.0 APTT 38 H (21-34) SECONDS Puncture Site Rb pCO2 120 H* (35-45) mm/Hg pO2 77 L (80-100) mm/Hg HCO3 37.3 H (21-28) mmol/L ABG pH 7.21 L (7.35-7.45) ABG Total CO2 51.7 H (22-28) mmol/L ABG O2 Saturation 96.5 (95-98) % ABG Base Excess 15.9 H (-2.0-3.0) mmol/L ABG Hemoglobin 10.9 L (11.7-17.4) g/dL ABG Carboxyhemoglobin 2.2 H (0.5-1.5) % POC ABG HHb (Measured) 3.4 (0.0-5.0) % ABG Methemoglobin 0.9 (0.0-3.0) % [place]a Test Na ABG Potassium (3.6-5.2) mmol/L A-a O2 Difference 58.0 mm/Hg Respiratory Index 0.8 Hgb O2 Saturation 93.5 L (95.0-98.0) % Sodium 144 (132-148) mmol/l Chloride 91 L (98-107) mmol/L Glucose (65-105) mg/dl Lactate (0.7-2.1) mmol/L Liter Flow Vent Mode Bipap Mechanical Rate FiO2 40.0 % Tidal Volume PEEP Inspiratory BiPAP 20 Expiratory BiPAP 10 Crit Value Called To Yazan simpson/rn Crit Value Called By Mark larry/rt Crit Value Read Back Y Blood Gas Notified Time 2340 Potassium 4.1 (3.6-5.2) mmol/L Carbon Dioxide 40 H* (22-30) mmol/L Anion Gap 17 (10-20) BUN 25 H (7-17) mg/dL Creatinine 0.6 L (0.7-1.2) mg/dL Est GFR ( Amer) > 60 Est GFR (Non-Af Amer) > 60 POC Glucose (mg/dL) (65-110) mg/dL Random Glucose 128 H (65-105) mg/dL Calcium 8.6 (8.6-10.4) mg/dl Phosphorus (2.5-4.5) mg/dL Magnesium (1.6-2.3) mg/dL Total Bilirubin 0.3 (0.2-1.3) mg/dL AST 10 L (14-36) U/L ALT 10 (9-52) U/L Alkaline Phosphatase 77 (38-126) U/L Total Creatine Kinase 21 L (30-135) U/L CK-MB (Mass) 0.57 (0.0-3.38) ng/mL Troponin I < 0.0120 (0.00-0.120) ng/mL NT-Pro-B Natriuret Pep 311 (0-900) pg/mL Total Protein 7.1 (6.3-8.3) g/dL Albumin 3.9 (3.5-5.0) g/dL Globulin 3.2 (2.2-3.9) gm/dL Albumin/Globulin Ratio 1.2 (1.0-2.1) Arterial Blood Potassium (3.6-5.2) mmol/L 04/08/18 04/08/18 04/08/18 Range/Units 21:35 21:04 20:12 WBC 15.1 H D (4.8-10.8) K/uL RBC 4.06 (3.80-5.20) Mil/uL Hgb 11.3 (11.0-16.0) g/dL Hct 36.9 (34.0-47.0) % MCV 90.9 D (81.0-99.0) fL MCH 27.8 (27.0-31.0) pg MCHC 30.6 L (33.0-37.0) g/dL RDW 15.7 H (11.5-14.5) % Plt Count 330 (130-400) K/uL MPV 8.5 (7.2-11.7) fL Neut % (Auto) 82.1 H (50.0-75.0) % Lymph % (Auto) 9.0 L (20.0-40.0) % [place] % (Auto) 7.5 (0.0-10.0) % Eos % (Auto) 0.7 (0.0-4.0) % Baso % (Auto) 0.7 (0.0-2.0) % Neut # (Auto) 12.4 H (1.8-7.0) K/uL Lymph # (Auto) 1.4 (1.0-4.3) K/uL [place] # (Auto) 1.1 H (0.0-0.8) K/uL Eos # (Auto) 0.1 (0.0-0.7) K/uL Baso # (Auto) 0.1 (0.0-0.2) K/uL Neutrophils % (Manual) 82 H (50-75) % Band Neutrophils % (0-2) % Lymphocytes % (Manual) 11 L (20-40) % Monocytes % (Manual) 7 (0-10) % Platelet Estimate Normal (NORMAL) Hypochromasia (manual) Slight Poikilocytosis (manual Slight Basophilic Stippling Anisocytosis (manual) Slight Rouleaux PT (9.7-12.2) SECONDS INR APTT (21-34) SECONDS Puncture Site Rradial pCO2 120 H* (35-45) mm/Hg pO2 100 (80-100) mm/Hg HCO3 35.4 H (21-28) mmol/L ABG pH 7.20 L (7.35-7.45) ABG Total CO2 50.6 H (22-28) mmol/L ABG O2 Saturation 97.9 (95-98) % ABG Base Excess 13.5 H (-2.0-3.0) mmol/L ABG Hemoglobin (11.7-17.4) g/dL ABG Carboxyhemoglobin (0.5-1.5) % POC ABG HHb (Measured) (0.0-5.0) % ABG Methemoglobin (0.0-3.0) % D[place]a Test Pos ABG Potassium 3.5 L (3.6-5.2) mmol/L A-a O2 Difference -50.0 mm/Hg Respiratory Index -0.5 Hgb O2 Saturation (95.0-98.0) % Sodium 144.0 (132-148) mmol/l Chloride 102.0 (98-107) mmol/L Glucose 112 H (65-105) mg/dl Lactate 0.4 L (0.7-2.1) mmol/L Liter Flow 2.0 Vent Mode Mechanical Rate FiO2 28.0 % Tidal Volume PEEP Inspiratory BiPAP Expiratory BiPAP Crit Value Called To Crit Value Called By Lacey rosas rcp Crit Value Read Back Y Blood Gas Notified Time 2140 Potassium (3.6-5.2) mmol/L Carbon Dioxide (22-30) mmol/L Anion Gap (10-20) BUN (7-17) mg/dL Creatinine (0.7-1.2) mg/dL Est GFR ( Amer) Est GFR (Non-Af Amer) POC Glucose (mg/dL) 122 H (65-110) mg/dL Random Glucose (65-105) mg/dL Calcium (8.6-10.4) mg/dl Phosphorus (2.5-4.5) mg/dL Magnesium (1.6-2.3) mg/dL Total Bilirubin (0.2-1.3) mg/dL AST (14-36) U/L ALT (9-52) U/L Alkaline Phosphatase (38-126) U/L Total Creatine Kinase (30-135) U/L CK-MB (Mass) (0.0-3.38) ng/mL Troponin I (0.00-0.120) ng/mL NT-Pro-B Natriuret Pep (0-900) pg/mL Total Protein (6.3-8.3) g/dL Albumin (3.5-5.0) g/dL Globulin (2.2-3.9) gm/dL Albumin/Globulin Ratio (1.0-2.1) Arterial Blood Potassium 3.5 L (3.6-5.2) mmol/L Laboratory Results - last 24 hr 04/08/18 04/08/18 04/08/18 20:12 21:04 21:35 WBC 15.1 H D RBC 4.06 Hgb 11.3 Hct 36.9 MCV 90.9 D MCH 27.8 MCHC 30.6 L RDW 15.7 H Plt Count 330 MPV 8.5 Neut % (Auto) 82.1 H Lymph % (Auto) 9.0 L [place] % (Auto) 7.5 Eos % (Auto) 0.7 Baso % (Auto) 0.7 Neut # (Auto) 12.4 H Lymph # (Auto) 1.4 [place] # (Auto) 1.1 H Eos # (Auto) 0.1 Baso # (Auto) 0.1 Neutrophils % (Manual) 82 H Band Neutrophils % Lymphocytes % (Manual) 11 L Monocytes % (Manual) 7 Platelet Estimate Normal Hypochromasia (manual) Slight Poikilocytosis (manual Slight Basophilic Stippling Anisocytosis (manual) Slight Rouleaux PT INR APTT Puncture Site Rradial pCO2 120 H* pO2 100 HCO3 35.4 H ABG pH 7.20 L ABG Total CO2 50.6 H ABG O2 Saturation 97.9 ABG Base Excess 13.5 H ABG Hemoglobin ABG Carboxyhemoglobin POC ABG HHb (Measured) ABG Methemoglobin Donta Test Pos ABG Potassium 3.5 L A-a O2 Difference -50.0 Respiratory Index -0.5 Hgb O2 Saturation Sodium 144.0 Chloride 102.0 Glucose 112 H Lactate 0.4 L Liter Flow 2.0 Vent Mode Mechanical Rate FiO2 28.0 Tidal Volume PEEP Inspiratory BiPAP Expiratory BiPAP Crit Value Called To Crit Value Called By Lacey rosas rcp Crit Value Read Back Y Blood Gas Notified Time 2140 Potassium Carbon Dioxide Anion Gap BUN Creatinine Est GFR ( Amer) Est GFR (Non-Af Amer) POC Glucose (mg/dL) 122 H Random Glucose Calcium Phosphorus Magnesium Total Bilirubin AST ALT Alkaline Phosphatase Total Creatine Kinase CK-MB (Mass) Troponin I NT-Pro-B Natriuret Pep Total Protein Albumin Globulin Albumin/Globulin Ratio Arterial Blood Potassium 3.5 L 04/08/18 04/08/18 04/08/18 21:38 21:50 23:30 WBC RBC Hgb Hct MCV MCH MCHC RDW Plt Count MPV Neut % (Auto) Lymph % (Auto) [place] % (Auto) Eos % (Auto) Baso % (Auto) Neut # (Auto) Lymph # (Auto) [place] # (Auto) Eos # (Auto) Baso # (Auto) Neutrophils % (Manual) Band Neutrophils % Lymphocytes % (Manual) Monocytes % (Manual) Platelet Estimate Hypochromasia (manual) Poikilocytosis (manual Basophilic Stippling Anisocytosis (manual) Rouleaux PT 10.7 INR 1.0 APTT 38 H Puncture Site Rb pCO2 120 H* pO2 77 L HCO3 37.3 H ABG pH 7.21 L ABG Total CO2 51.7 H ABG O2 Saturation 96.5 ABG Base Excess 15.9 H ABG Hemoglobin 10.9 L ABG Carboxyhemoglobin 2.2 H POC ABG HHb (Measured) 3.4 ABG Methemoglobin 0.9 Donta Test Na ABG Potassium A-a O2 Difference 58.0 Respiratory Index 0.8 Hgb O2 Saturation 93.5 L Sodium 144 Chloride 91 L Glucose Lactate Liter Flow Vent Mode Bipap Mechanical Rate FiO2 40.0 Tidal Volume PEEP Inspiratory BiPAP 20 Expiratory BiPAP 10 Crit Value Called To Yazan simpson/rn Crit Value Called By Mark larry/rt Crit Value Read Back Y Blood Gas Notified Time 2340 Potassium 4.1 Carbon Dioxide 40 H* Anion Gap 17 BUN 25 H Creatinine 0.6 L Est GFR ( Amer) > 60 Est GFR (Non-Af Amer) > 60 POC Glucose (mg/dL) Random Glucose 128 H Calcium 8.6 Phosphorus Magnesium Total Bilirubin 0.3 AST 10 L ALT 10 Alkaline Phosphatase 77 Total Creatine Kinase 21 L CK-MB (Mass) 0.57 Troponin I < 0.0120 NT-Pro-B Natriuret Pep 311 Total Protein 7.1 Albumin 3.9 Globulin 3.2 Albumin/Globulin Ratio 1.2 Arterial Blood Potassium 04/09/18 04/09/18 04/09/18 05:00 06:14 06:14 WBC 12.1 H RBC 3.83 Hgb 10.8 L Hct 34.0 MCV 88.9 D MCH 28.3 MCHC 31.9 L RDW 15.4 H Plt Count 284 MPV 8.6 Neut % (Auto) 91.2 H Lymph % (Auto) 7.0 L [place] % (Auto) 1.6 Eos % (Auto) 0.0 Baso % (Auto) 0.2 Neut # (Auto) 11.0 H Lymph # (Auto) 0.9 L [place] # (Auto) 0.2 Eos # (Auto) 0.0 Baso # (Auto) 0.0 Neutrophils % (Manual) 90 H Band Neutrophils % 1 Lymphocytes % (Manual) 7 L Monocytes % (Manual) 2 Platelet Estimate Normal Hypochromasia (manual) Poikilocytosis (manual Basophilic Stippling Slight Anisocytosis (manual) Rouleaux Slight PT INR APTT Puncture Site Rb pCO2 39 pO2 68 L HCO3 36.9 H ABG pH 7.60 H ABG Total CO2 39.5 H ABG O2 Saturation 97.9 ABG Base Excess 15.4 H ABG Hemoglobin 11.0 L ABG Carboxyhemoglobin 1.5 POC ABG HHb (Measured) 2.0 ABG Methemoglobin 1.2 Donta Test Na ABG Potassium A-a O2 Difference 240.0 Respiratory Index 3.5 Hgb O2 Saturation 95.3 Sodium 137 Chloride 94 L Glucose Lactate Liter Flow Vent Mode Prvc Mechanical Rate 18 FiO2 50.0 Tidal Volume 500 PEEP 5 Inspiratory BiPAP Expiratory BiPAP Crit Value Called To Crit Value Called By Crit Value Read Back Blood Gas Notified Time Potassium 4.2 Carbon Dioxide 33 H Anion Gap 14 BUN 27 H Creatinine 0.6 L Est GFR ( Amer) > 60 Est GFR (Non-Af Amer) > 60 POC Glucose (mg/dL) Random Glucose 143 H Calcium 8.5 L Phosphorus 1.9 L Magnesium 2.1 Total Bilirubin 0.6 AST 11 L ALT 21 Alkaline Phosphatase 74 Total Creatine Kinase CK-MB (Mass) Troponin I NT-Pro-B Natriuret Pep Total Protein 6.4 Albumin 3.7 Globulin 2.7 Albumin/Globulin Ratio 1.4 Arterial Blood Potassium EKG/Cardiology Studies: Cardiology / EKG Studies 04/08/18 20:41 EKG [ELECTROCARDIOGRAM] Stat Comment: Mode Of Transportation: STRETCHER Reason For Exam: SOB Fingerstick Blood Sugar Results: 122 Review of Systems - Review of Systems Systems not reviewed;Unavailable: Intubated Critical Care Progress Note - Vent Settings MODE:: PRVC TIDAL VOLUME:: 500 RESP RATE:: 10 FIO2:: 50 PEEP:: 5 - Prophylaxis GI Prophylaxis GI: PPI - Prophylaxis DVT Prophylaxis DVT: SCDs Assessment/Plan - Assessment and Plan (Free Text) Plan: 72 yo F with PMHx of COPD, obstructive sleep apnea, HTN, anemia, bipolar disorder admitted to ICU for COPD exacerbation. Intuabated 04/08. Neuro: weened off sedation Carbidopa/Levodopa 1tab PO TID Gabapentin Cardio: Carvedilol 25mg PO daily Lasix 40mg PO daily Pulm: Intubated Pressure support trial Duoneb Q4 Methylprednisolone 80mg IVP Q8 Singulair 10mg PO HS GI: Restart diet tomorrow Renal: Cr:0.6 Endo: Levemir 40u SC HS Levothyroxine 150mcg PO daily Neutra-Phos 1pkt PO BID Heme: H/H: . Lovenox 120 SC daily ID: WBC: downtrending PPx: Protonix Dispo: Continue ICU management Case was reviewed and discussed with attending physician, Dr. Rmoeo. <Johan Romeo S - Last Filed: 04/09/18 17:26> CCU Subjective - Physician Review Critical Care Time Spent (in minutes): 35 CCU Objective - Vital Signs / Intake & Output Vital Signs (Last 4 hours): Vital Signs Pulse Resp BP Pulse Ox 04/09/18 15:11 81 24 151/79 H 100 04/09/18 15:00 76 10 L 100 04/09/18 14:51 77 10 L 132/84 100 04/09/18 14:31 80 10 L 141/87 100 04/09/18 14:30 80 18 100 04/09/18 14:11 80 14 150/81 100 04/09/18 14:00 80 11 L 100 04/09/18 13:51 77 10 L 166/81 H 100 04/09/18 13:31 76 15 162/77 H 100 04/09/18 13:30 76 18 100 Intake and Output (Last 8hrs): Intake & Output 04/09/18 04/09/18 04/09/18 06:59 14:59 22:59 Intake Total 206.4 226.5 0 Output Total 150 700 Balance 206.4 76.5 -700 Weight 295 lb 10.238 oz Intake: IV 100 100 Intake, IV Amount 106.4 126.5 0 Right Forearm 106.4 126.5 0 Tube Feeding 0 0 Output: Urine 150 700 Urine, Voided 150 700 Other: # Voids Urine, Voided 1 1 # Bowel Movements 0 - Medications Active Medications: Active Medications Generic Name Dose Route Start Last Admin Trade Name Freq PRN Reason Stop Dose Admin Albuterol/Ipratropium 3 ml 04/09/18 04:00 04/09/18 16:12 Duoneb 3 Mg/0.5 Mg (3 Ml) Ud INH 3 ml RQ4 TIMOTEO Administration Carbidopa/Levodopa 1 tab 04/09/18 10:00 04/09/18 11:07 Sinemet PO 1 tab TID TIMOTEO Administration Carvedilol 25 mg 04/09/18 10:00 Coreg PO DAILY TIMOTEO Enoxaparin Sodium 120 mg 04/09/18 10:00 04/09/18 10:31 Lovenox SC 120 mg DAILY TIMOTEO Administration Furosemide 40 mg 04/09/18 10:00 04/09/18 10:30 Lasix PO 40 mg DAILY TIMOTEO Administration Gabapentin 300 mg 04/09/18 10:00 04/09/18 10:30 Neurontin PO 300 mg BID TIMOTEO Administration Propofol 1,000 mg in 100 mls @ 8.165 mls/hr 04/09/18 01:38 04/09/18 10:25 Diprivan IV 20 mcg/kg/min .[id number] PRN 16.329 mls/hr TITRATE PER MD ORDER Administration Protocol 10 MCG/KG/MIN Insulin Detemir 40 unit 04/09/18 22:00 Levemir SC HS TIMOTEO Levothyroxine Sodium 150 mcg 04/09/18 10:15 04/09/18 11:06 Synthroid PO 150 mcg DAILY@0630 TIMOTEO Administration Methylprednisolone 80 mg 04/09/18 06:00 04/09/18 05:38 Solu-Medrol IVP 80 mg Q8 TIMOTEO Administration Montelukast Sodium 10 mg 04/09/18 22:00 Singulair PO HS TIMOTEO Pantoprazole Sodium 40 mg 04/09/18 10:00 04/09/18 10:30 Protonix Inj IVP 40 mg DAILY TIMOTEO Administration Potassium Phos/Sodium Phos 1 pkt 04/09/18 10:00 04/09/18 10:30 Neutra-Phos PO 04/11/18 10:01 1 pkt BID TIMOTEO Administration Vitamin A 1 ea 04/09/18 12:00 Vitamin A & D Oint Ud Foilpak TOP Q6 TIMOTEO - Patient Studies Lab Studies: Lab Studies 04/09/18 04/09/18 04/09/18 Range/Units 13:16 13:15 06:14 WBC (4.8-10.8) K/uL RBC (3.80-5.20) Mil/uL Hgb (11.0-16.0) g/dL Hct (34.0-47.0) % MCV (81.0-99.0) fL MCH (27.0-31.0) pg MCHC (33.0-37.0) g/dL RDW (11.5-14.5) % Plt Count (130-400) K/uL MPV (7.2-11.7) fL Neut % (Auto) (50.0-75.0) % Lymph % (Auto) (20.0-40.0) % [place] % (Auto) (0.0-10.0) % Eos % (Auto) (0.0-4.0) % Baso % (Auto) (0.0-2.0) % Neut # (Auto) (1.8-7.0) K/uL Lymph # (Auto) (1.0-4.3) K/uL [place] # (Auto) (0.0-0.8) K/uL Eos # (Auto) (0.0-0.7) K/uL Baso # (Auto) (0.0-0.2) K/uL Neutrophils % (Manual) (50-75) % Band Neutrophils % (0-2) % Lymphocytes % (Manual) (20-40) % Monocytes % (Manual) (0-10) % Platelet Estimate (NORMAL) Hypochromasia (manual) Poikilocytosis (manual Basophilic Stippling Anisocytosis (manual) Rouleaux PT (9.7-12.2) SECONDS INR APTT (21-34) SECONDS Puncture Site pCO2 (35-45) mm/Hg pO2 (80-100) mm/Hg HCO3 (21-28) mmol/L ABG pH (7.35-7.45) ABG Total CO2 (22-28) mmol/L ABG O2 Saturation (95-98) % ABG Base Excess (-2.0-3.0) mmol/L ABG Hemoglobin (11.7-17.4) g/dL ABG Carboxyhemoglobin (0.5-1.5) % POC ABG HHb (Measured) (0.0-5.0) % ABG Methemoglobin (0.0-3.0) % [place] Test ABG Potassium (3.6-5.2) mmol/L A-a O2 Difference mm/Hg Respiratory Index Hgb O2 Saturation (95.0-98.0) % Sodium 137 (132-148) mmol/l Chloride 94 L (98-107) mmol/L Glucose (65-105) mg/dl Lactate (0.7-2.1) mmol/L Liter Flow Vent Mode Mechanical Rate FiO2 % Tidal Volume PEEP Inspiratory BiPAP Expiratory BiPAP Crit Value Called To Crit Value Called By Crit Value Read Back Blood Gas Notified Time Potassium 4.2 (3.6-5.2) mmol/L Carbon Dioxide 33 H (22-30) mmol/L Anion Gap 14 (10-20) BUN 27 H (7-17) mg/dL Creatinine 0.6 L (0.7-1.2) mg/dL Est GFR ( Amer) > 60 Est GFR (Non-Af Amer) > 60 POC Glucose (mg/dL) (65-110) mg/dL Random Glucose 143 H (65-105) mg/dL Calcium 8.5 L (8.6-10.4) mg/dl Phosphorus 1.9 L (2.5-4.5) mg/dL Magnesium 2.1 (1.6-2.3) mg/dL Total Bilirubin 0.6 (0.2-1.3) mg/dL AST 11 L (14-36) U/L ALT 21 (9-52) U/L Alkaline Phosphatase 74 (38-126) U/L Total Creatine Kinase (30-135) U/L CK-MB (Mass) (0.0-3.38) ng/mL Troponin I (0.00-0.120) ng/mL NT-Pro-B Natriuret Pep (0-900) pg/mL Total Protein 6.4 (6.3-8.3) g/dL Albumin 3.7 (3.5-5.0) g/dL Globulin 2.7 (2.2-3.9) gm/dL Albumin/Globulin Ratio 1.4 (1.0-2.1) Free T4 2.20 H (0.78-2.19) ng/dL Free T3 pg/mL 3.20 (2.77-5.27) pg/mL TSH 3rd Generation 0.08 L (0.46-4.68) mIU/L Arterial Blood Potassium (3.6-5.2) mmol/L 04/09/18 04/09/18 04/08/18 Range/Units 06:14 05:00 23:30 WBC 12.1 H (4.8-10.8) K/uL RBC 3.83 (3.80-5.20) Mil/uL Hgb 10.8 L (11.0-16.0) g/dL Hct 34.0 (34.0-47.0) % MCV 88.9 D (81.0-99.0) fL MCH 28.3 (27.0-31.0) pg MCHC 31.9 L (33.0-37.0) g/dL RDW 15.4 H (11.5-14.5) % Plt Count 284 (130-400) K/uL MPV 8.6 (7.2-11.7) fL Neut % (Auto) 91.2 H (50.0-75.0) % Lymph % (Auto) 7.0 L (20.0-40.0) % [place] % (Auto) 1.6 (0.0-10.0) % Eos % (Auto) 0.0 (0.0-4.0) % Baso % (Auto) 0.2 (0.0-2.0) % Neut # (Auto) 11.0 H (1.8-7.0) K/uL Lymph # (Auto) 0.9 L (1.0-4.3) K/uL [place] # (Auto) 0.2 (0.0-0.8) K/uL Eos # (Auto) 0.0 (0.0-0.7) K/uL Baso # (Auto) 0.0 (0.0-0.2) K/uL Neutrophils % (Manual) 90 H (50-75) % Band Neutrophils % 1 (0-2) % Lymphocytes % (Manual) 7 L (20-40) % Monocytes % (Manual) 2 (0-10) % Platelet Estimate Normal (NORMAL) Hypochromasia (manual) Poikilocytosis (manual Basophilic Stippling Slight Anisocytosis (manual) Rouleaux Slight PT (9.7-12.2) SECONDS INR APTT (21-34) SECONDS Puncture Site Rb Rb pCO2 39 120 H* (35-45) mm/Hg pO2 68 L 77 L (80-100) mm/Hg HCO3 36.9 H 37.3 H (21-28) mmol/L ABG pH 7.60 H 7.21 L (7.35-7.45) ABG Total CO2 39.5 H 51.7 H (22-28) mmol/L ABG O2 Saturation 97.9 96.5 (95-98) % ABG Base Excess 15.4 H 15.9 H (-2.0-3.0) mmol/L ABG Hemoglobin 11.0 L 10.9 L (11.7-17.4) g/dL ABG Carboxyhemoglobin 1.5 2.2 H (0.5-1.5) % POC ABG HHb (Measured) 2.0 3.4 (0.0-5.0) % ABG Methemoglobin 1.2 0.9 (0.0-3.0) % [place] Test Na Na ABG Potassium (3.6-5.2) mmol/L A-a O2 Difference 240.0 58.0 mm/Hg Respiratory Index 3.5 0.8 Hgb O2 Saturation 95.3 93.5 L (95.0-98.0) % Sodium (132-148) mmol/l Chloride (98-107) mmol/L Glucose (65-105) mg/dl Lactate (0.7-2.1) mmol/L Liter Flow Vent Mode Prvc Bipap Mechanical Rate 18 FiO2 50.0 40.0 % Tidal Volume 500 PEEP 5 Inspiratory BiPAP 20 Expiratory BiPAP 10 Crit Value Called To Yazan simpson/rn Crit Value Called By Mark larry/rt Crit Value Read Back Y Blood Gas Notified Time 2340 Potassium (3.6-5.2) mmol/L Carbon Dioxide (22-30) mmol/L Anion Gap (10-20) BUN (7-17) mg/dL Creatinine (0.7-1.2) mg/dL Est GFR ( Amer) Est GFR (Non-Af Amer) POC Glucose (mg/dL) (65-110) mg/dL Random Glucose (65-105) mg/dL Calcium (8.6-10.4) mg/dl Phosphorus (2.5-4.5) mg/dL Magnesium (1.6-2.3) mg/dL Total Bilirubin (0.2-1.3) mg/dL AST (14-36) U/L ALT (9-52) U/L Alkaline Phosphatase (38-126) U/L Total Creatine Kinase (30-135) U/L CK-MB (Mass) (0.0-3.38) ng/mL Troponin I (0.00-0.120) ng/mL NT-Pro-B Natriuret Pep (0-900) pg/mL Total Protein (6.3-8.3) g/dL Albumin (3.5-5.0) g/dL Globulin (2.2-3.9) gm/dL Albumin/Globulin Ratio (1.0-2.1) Free T4 (0.78-2.19) ng/dL Free T3 pg/mL (2.77-5.27) pg/mL TSH 3rd Generation (0.46-4.68) mIU/L Arterial Blood Potassium (3.6-5.2) mmol/L 04/08/18 04/08/18 04/08/18 Range/Units 21:50 21:38 21:35 WBC (4.8-10.8) K/uL RBC (3.80-5.20) Mil/uL Hgb (11.0-16.0) g/dL Hct (34.0-47.0) % MCV (81.0-99.0) fL MCH (27.0-31.0) pg MCHC (33.0-37.0) g/dL RDW (11.5-14.5) % Plt Count (130-400) K/uL MPV (7.2-11.7) fL Neut % (Auto) (50.0-75.0) % Lymph % (Auto) (20.0-40.0) % [place] % (Auto) (0.0-10.0) % Eos % (Auto) (0.0-4.0) % Baso % (Auto) (0.0-2.0) % Neut # (Auto) (1.8-7.0) K/uL Lymph # (Auto) (1.0-4.3) K/uL [place] # (Auto) (0.0-0.8) K/uL Eos # (Auto) (0.0-0.7) K/uL Baso # (Auto) (0.0-0.2) K/uL Neutrophils % (Manual) (50-75) % Band Neutrophils % (0-2) % Lymphocytes % (Manual) (20-40) % Monocytes % (Manual) (0-10) % Platelet Estimate (NORMAL) Hypochromasia (manual) Poikilocytosis (manual Basophilic Stippling Anisocytosis (manual) Rouleaux PT 10.7 (9.7-12.2) SECONDS INR 1.0 APTT 38 H (21-34) SECONDS Puncture Site Rradial pCO2 120 H* (35-45) mm/Hg pO2 100 (80-100) mm/Hg HCO3 35.4 H (21-28) mmol/L ABG pH 7.20 L (7.35-7.45) ABG Total CO2 50.6 H (22-28) mmol/L ABG O2 Saturation 97.9 (95-98) % ABG Base Excess 13.5 H (-2.0-3.0) mmol/L ABG Hemoglobin (11.7-17.4) g/dL ABG Carboxyhemoglobin (0.5-1.5) % POC ABG HHb (Measured) (0.0-5.0) % ABG Methemoglobin (0.0-3.0) % [place] Test Pos ABG Potassium 3.5 L (3.6-5.2) mmol/L A-a O2 Difference -50.0 mm/Hg Respiratory Index -0.5 Hgb O2 Saturation (95.0-98.0) % Sodium 144 144.0 (132-148) mmol/l Chloride 91 L 102.0 (98-107) mmol/L Glucose 112 H (65-105) mg/dl Lactate 0.4 L (0.7-2.1) mmol/L Liter Flow 2.0 Vent Mode Mechanical Rate FiO2 28.0 % Tidal Volume PEEP Inspiratory BiPAP Expiratory BiPAP Crit Value Called To Crit Value Called By Lacey rosas rcp Crit Value Read Back Y Blood Gas Notified Time 2140 Potassium 4.1 (3.6-5.2) mmol/L Carbon Dioxide 40 H* (22-30) mmol/L Anion Gap 17 (10-20) BUN 25 H (7-17) mg/dL Creatinine 0.6 L (0.7-1.2) mg/dL Est GFR ( Amer) > 60 Est GFR (Non-Af Amer) > 60 POC Glucose (mg/dL) (65-110) mg/dL Random Glucose 128 H (65-105) mg/dL Calcium 8.6 (8.6-10.4) mg/dl Phosphorus (2.5-4.5) mg/dL Magnesium (1.6-2.3) mg/dL Total Bilirubin 0.3 (0.2-1.3) mg/dL AST 10 L (14-36) U/L ALT 10 (9-52) U/L Alkaline Phosphatase 77 (38-126) U/L Total Creatine Kinase 21 L (30-135) U/L CK-MB (Mass) 0.57 (0.0-3.38) ng/mL Troponin I < 0.0120 (0.00-0.120) ng/mL NT-Pro-B Natriuret Pep 311 (0-900) pg/mL Total Protein 7.1 (6.3-8.3) g/dL Albumin 3.9 (3.5-5.0) g/dL Globulin 3.2 (2.2-3.9) gm/dL Albumin/Globulin Ratio 1.2 (1.0-2.1) Free T4 (0.78-2.19) ng/dL Free T3 pg/mL (2.77-5.27) pg/mL TSH 3rd Generation (0.46-4.68) mIU/L Arterial Blood Potassium 3.5 L (3.6-5.2) mmol/L 04/08/18 04/08/18 Range/Units 21:04 20:12 WBC 15.1 H D (4.8-10.8) K/uL RBC 4.06 (3.80-5.20) Mil/uL Hgb 11.3 (11.0-16.0) g/dL Hct 36.9 (34.0-47.0) % MCV 90.9 D (81.0-99.0) fL MCH 27.8 (27.0-31.0) pg MCHC 30.6 L (33.0-37.0) g/dL RDW 15.7 H (11.5-14.5) % Plt Count 330 (130-400) K/uL MPV 8.5 (7.2-11.7) fL Neut % (Auto) 82.1 H (50.0-75.0) % Lymph % (Auto) 9.0 L (20.0-40.0) % [place] % (Auto) 7.5 (0.0-10.0) % Eos % (Auto) 0.7 (0.0-4.0) % Baso % (Auto) 0.7 (0.0-2.0) % Neut # (Auto) 12.4 H (1.8-7.0) K/uL Lymph # (Auto) 1.4 (1.0-4.3) K/uL [place] # (Auto) 1.1 H (0.0-0.8) K/uL Eos # (Auto) 0.1 (0.0-0.7) K/uL Baso # (Auto) 0.1 (0.0-0.2) K/uL Neutrophils % (Manual) 82 H (50-75) % Band Neutrophils % (0-2) % Lymphocytes % (Manual) 11 L (20-40) % Monocytes % (Manual) 7 (0-10) % Platelet Estimate Normal (NORMAL) Hypochromasia (manual) Slight Poikilocytosis (manual Slight Basophilic Stippling Anisocytosis (manual) Slight Rouleaux PT (9.7-12.2) SECONDS INR APTT (21-34) SECONDS Puncture Site pCO2 (35-45) mm/Hg pO2 (80-100) mm/Hg HCO3 (21-28) mmol/L ABG pH (7.35-7.45) ABG Total CO2 (22-28) mmol/L ABG O2 Saturation (95-98) % ABG Base Excess (-2.0-3.0) mmol/L ABG Hemoglobin (11.7-17.4) g/dL ABG Carboxyhemoglobin (0.5-1.5) % POC ABG HHb (Measured) (0.0-5.0) % ABG Methemoglobin (0.0-3.0) % [place] Test ABG Potassium (3.6-5.2) mmol/L A-a O2 Difference mm/Hg Respiratory Index Hgb O2 Saturation (95.0-98.0) % Sodium (132-148) mmol/l Chloride (98-107) mmol/L Glucose (65-105) mg/dl Lactate (0.7-2.1) mmol/L Liter Flow Vent Mode Mechanical Rate FiO2 % Tidal Volume PEEP Inspiratory BiPAP Expiratory BiPAP Crit Value Called To Crit Value Called By Crit Value Read Back Blood Gas Notified Time Potassium (3.6-5.2) mmol/L Carbon Dioxide (22-30) mmol/L Anion Gap (10-20) BUN (7-17) mg/dL Creatinine (0.7-1.2) mg/dL Est GFR ( Amer) Est GFR (Non-Af Amer) POC Glucose (mg/dL) 122 H (65-110) mg/dL Random Glucose (65-105) mg/dL Calcium (8.6-10.4) mg/dl Phosphorus (2.5-4.5) mg/dL Magnesium (1.6-2.3) mg/dL Total Bilirubin (0.2-1.3) mg/dL AST (14-36) U/L ALT (9-52) U/L Alkaline Phosphatase (38-126) U/L Total Creatine Kinase (30-135) U/L CK-MB (Mass) (0.0-3.38) ng/mL Troponin I (0.00-0.120) ng/mL NT-Pro-B Natriuret Pep (0-900) pg/mL Total Protein (6.3-8.3) g/dL Albumin (3.5-5.0) g/dL Globulin (2.2-3.9) gm/dL Albumin/Globulin Ratio (1.0-2.1) Free T4 (0.78-2.19) ng/dL Free T3 pg/mL (2.77-5.27) pg/mL TSH 3rd Generation (0.46-4.68) mIU/L Arterial Blood Potassium (3.6-5.2) mmol/L Laboratory Results - last 24 hr 04/08/18 04/08/18 04/08/18 20:12 21:04 21:35 WBC 15.1 H D RBC 4.06 Hgb 11.3 Hct 36.9 MCV 90.9 D MCH 27.8 MCHC 30.6 L RDW 15.7 H Plt Count 330 MPV 8.5 Neut % (Auto) 82.1 H Lymph % (Auto) 9.0 L [place] % (Auto) 7.5 Eos % (Auto) 0.7 Baso % (Auto) 0.7 Neut # (Auto) 12.4 H Lymph # (Auto) 1.4 [place] # (Auto) 1.1 H Eos # (Auto) 0.1 Baso # (Auto) 0.1 Neutrophils % (Manual) 82 H Band Neutrophils % Lymphocytes % (Manual) 11 L Monocytes % (Manual) 7 Platelet Estimate Normal Hypochromasia (manual) Slight Poikilocytosis (manual Slight Basophilic Stippling Anisocytosis (manual) Slight Rouleaux PT INR APTT Puncture Site Rradial pCO2 120 H* pO2 100 HCO3 35.4 H ABG pH 7.20 L ABG Total CO2 50.6 H ABG O2 Saturation 97.9 ABG Base Excess 13.5 H ABG Hemoglobin ABG Carboxyhemoglobin POC ABG HHb (Measured) ABG Methemoglobin Donta Test Pos ABG Potassium 3.5 L A-a O2 Difference -50.0 Respiratory Index -0.5 Hgb O2 Saturation Sodium 144.0 Chloride 102.0 Glucose 112 H Lactate 0.4 L Liter Flow 2.0 Vent Mode Mechanical Rate FiO2 28.0 Tidal Volume PEEP Inspiratory BiPAP Expiratory BiPAP Crit Value Called To Crit Value Called By Lacey rosas rcp Crit Value Read Back Y Blood Gas Notified Time 2140 Potassium Carbon Dioxide Anion Gap BUN Creatinine Est GFR ( Amer) Est GFR (Non-Af Amer) POC Glucose (mg/dL) 122 H Random Glucose Calcium Phosphorus Magnesium Total Bilirubin AST ALT Alkaline Phosphatase Total Creatine Kinase CK-MB (Mass) Troponin I NT-Pro-B Natriuret Pep Total Protein Albumin Globulin Albumin/Globulin Ratio Free T4 Free T3 pg/mL TSH 3rd Generation Arterial Blood Potassium 3.5 L 04/08/18 04/08/18 04/08/18 21:38 21:50 23:30 WBC RBC Hgb Hct MCV MCH MCHC RDW Plt Count MPV Neut % (Auto) Lymph % (Auto) [place] % (Auto) Eos % (Auto) Baso % (Auto) Neut # (Auto) Lymph # (Auto) [place] # (Auto) Eos # (Auto) Baso # (Auto) Neutrophils % (Manual) Band Neutrophils % Lymphocytes % (Manual) Monocytes % (Manual) Platelet Estimate Hypochromasia (manual) Poikilocytosis (manual Basophilic Stippling Anisocytosis (manual) Rouleaux PT 10.7 INR 1.0 APTT 38 H Puncture Site Rb pCO2 120 H* pO2 77 L HCO3 37.3 H ABG pH 7.21 L ABG Total CO2 51.7 H ABG O2 Saturation 96.5 ABG Base Excess 15.9 H ABG Hemoglobin 10.9 L ABG Carboxyhemoglobin 2.2 H POC ABG HHb (Measured) 3.4 ABG Methemoglobin 0.9 D[place]a Test Na ABG Potassium A-a O2 Difference 58.0 Respiratory Index 0.8 Hgb O2 Saturation 93.5 L Sodium 144 Chloride 91 L Glucose Lactate Liter Flow Vent Mode Bipap Mechanical Rate FiO2 40.0 Tidal Volume PEEP Inspiratory BiPAP 20 Expiratory BiPAP 10 Crit Value Called To Yazan simpson/rn Crit Value Called By Mark larry/rt Crit Value Read Back Y Blood Gas Notified Time 2340 Potassium 4.1 Carbon Dioxide 40 H* Anion Gap 17 BUN 25 H Creatinine 0.6 L Est GFR ( Amer) > 60 Est GFR (Non-Af Amer) > 60 POC Glucose (mg/dL) Random Glucose 128 H Calcium 8.6 Phosphorus Magnesium Total Bilirubin 0.3 AST 10 L ALT 10 Alkaline Phosphatase 77 Total Creatine Kinase 21 L CK-MB (Mass) 0.57 Troponin I < 0.0120 NT-Pro-B Natriuret Pep 311 Total Protein 7.1 Albumin 3.9 Globulin 3.2 Albumin/Globulin Ratio 1.2 Free T4 Free T3 pg/mL TSH 3rd Generation Arterial Blood Potassium 04/09/18 04/09/18 04/09/18 05:00 06:14 06:14 WBC 12.1 H RBC 3.83 Hgb 10.8 L Hct 34.0 MCV 88.9 D MCH 28.3 MCHC 31.9 L RDW 15.4 H Plt Count 284 MPV 8.6 Neut % (Auto) 91.2 H Lymph % (Auto) 7.0 L [place] % (Auto) 1.6 Eos % (Auto) 0.0 Baso % (Auto) 0.2 Neut # (Auto) 11.0 H Lymph # (Auto) 0.9 L [place] # (Auto) 0.2 Eos # (Auto) 0.0 Baso # (Auto) 0.0 Neutrophils % (Manual) 90 H Band Neutrophils % 1 Lymphocytes % (Manual) 7 L Monocytes % (Manual) 2 Platelet Estimate Normal Hypochromasia (manual) Poikilocytosis (manual Basophilic Stippling Slight Anisocytosis (manual) Rouleaux Slight PT INR APTT Puncture Site Rb pCO2 39 pO2 68 L HCO3 36.9 H ABG pH 7.60 H ABG Total CO2 39.5 H ABG O2 Saturation 97.9 ABG Base Excess 15.4 H ABG Hemoglobin 11.0 L ABG Carboxyhemoglobin 1.5 POC ABG HHb (Measured) 2.0 ABG Methemoglobin 1.2 D[place]a Test Na ABG Potassium A-a O2 Difference 240.0 Respiratory Index 3.5 Hgb O2 Saturation 95.3 Sodium 137 Chloride 94 L Glucose Lactate Liter Flow Vent Mode Prvc Mechanical Rate 18 FiO2 50.0 Tidal Volume 500 PEEP 5 Inspiratory BiPAP Expiratory BiPAP Crit Value Called To Crit Value Called By Crit Value Read Back Blood Gas Notified Time Potassium 4.2 Carbon Dioxide 33 H Anion Gap 14 BUN 27 H Creatinine 0.6 L Est GFR ( Amer) > 60 Est GFR (Non-Af Amer) > 60 POC Glucose (mg/dL) Random Glucose 143 H Calcium 8.5 L Phosphorus 1.9 L Magnesium 2.1 Total Bilirubin 0.6 AST 11 L ALT 21 Alkaline Phosphatase 74 Total Creatine Kinase CK-MB (Mass) Troponin I NT-Pro-B Natriuret Pep Total Protein 6.4 Albumin 3.7 Globulin 2.7 Albumin/Globulin Ratio 1.4 Free T4 Free T3 pg/mL TSH 3rd Generation Arterial Blood Potassium 04/09/18 04/09/18 13:15 13:16 WBC RBC Hgb Hct MCV MCH MCHC RDW Plt Count MPV Neut % (Auto) Lymph % (Auto) [place] % (Auto) Eos % (Auto) Baso % (Auto) Neut # (Auto) Lymph # (Auto) [place] # (Auto) Eos # (Auto) Baso # (Auto) Neutrophils % (Manual) Band Neutrophils % Lymphocytes % (Manual) Monocytes % (Manual) Platelet Estimate Hypochromasia (manual) Poikilocytosis (manual Basophilic Stippling Anisocytosis (manual) Rouleaux PT INR APTT Puncture Site pCO2 pO2 HCO3 ABG pH ABG Total CO2 ABG O2 Saturation ABG Base Excess ABG Hemoglobin ABG Carboxyhemoglobin POC ABG HHb (Measured) ABG Methemoglobin [place] Test ABG Potassium A-a O2 Difference Respiratory Index Hgb O2 Saturation Sodium Chloride Glucose Lactate Liter Flow Vent Mode Mechanical Rate FiO2 Tidal Volume PEEP Inspiratory BiPAP Expiratory BiPAP Crit Value Called To Crit Value Called By Crit Value Read Back Blood Gas Notified Time Potassium Carbon Dioxide Anion Gap BUN Creatinine Est GFR ( Amer) Est GFR (Non-Af Amer) POC Glucose (mg/dL) Random Glucose Calcium Phosphorus Magnesium Total Bilirubin AST ALT Alkaline Phosphatase Total Creatine Kinase CK-MB (Mass) Troponin I NT-Pro-B Natriuret Pep Total Protein Albumin Globulin Albumin/Globulin Ratio Free T4 2.20 H Free T3 pg/mL 3.20 TSH 3rd Generation 0.08 L Arterial Blood Potassium EKG/Cardiology Studies: Cardiology / EKG Studies 04/08/18 20:41 EKG [ELECTROCARDIOGRAM] Stat Comment: Mode Of Transportation: STRETCHER Reason For Exam: SOB Attending/Attestation - Attestation I have personally seen and examined this patient.: Yes I have fully participated in the care of the patient.: Yes I have reviewed all pertinent clinical information: Yes Notes (Text): 04/09/18 17:25 patient seen and examined in the intensive care unit. Patient remained intubated on ventilatory support Adjustment made on ventilator settings as ABG consistent with respiratory alkalosis Sedation vacation wean as tolerated Continue nebulizer treatment, steroids IV diuretics
--- NOTE | 2018-04-09 10:49 | RAD ---
HISTORY: SOB COMPARISON: Chest x-ray performed 03/26/18 TECHNIQUE: Chest, one view. FINDINGS: Examination limited by habitus and hypoinflation. LUNGS: Mild to moderate venous congestion. Small left pleural effusion and/or consolidation. No definite pneumothorax. Please note that chest x-ray has limited sensitivity for the detection of pulmonary masses. CARDIOVASCULAR: Cardiomegaly. OSSEOUS STRUCTURES: Degenerative changes. VISUALIZED UPPER ABDOMEN: Unremarkable. OTHER FINDINGS: None. IMPRESSION: Hypoinflation.Mild to moderate venous congestion. Small left pleural effusion and/or consolidation. Cardiomegaly.
--- NOTE | 2018-04-09 11:04 | RAD ---
HISTORY: intubation COMPARISON: Chest x-ray performed 04/08/18 TECHNIQUE: Chest, one view. FINDINGS: Examination markedly limited by habitus and hypoinflation. Endotracheal tube extends to the aleena ; recommend pulling back approximately 3 cm. Nasogastric tube extends beyond hemidiaphragm, beyond the confines of the image. LUNGS: Mild pulmonary venous congestion. Partially imaged left pleural effusion and/or consolidation. No definite pneumothorax. Please note that chest x-ray has limited sensitivity for the detection of pulmonary masses. CARDIOVASCULAR: Partially imaged cardiomegaly. OSSEOUS STRUCTURES: Degenerative changes. VISUALIZED UPPER ABDOMEN: Unremarkable. OTHER FINDINGS: None. IMPRESSION: Endotracheal tube extends to the aleena ; recommend pulling back approximately 3 cm. Findings discussed with CODY Avitia on 04/09/18 at 10:59 a.m. Nasogastric tube extends beyond hemidiaphragm, beyond the confines of the image. Mild pulmonary venous congestion. Partially imaged left pleural effusion and/or consolidation.
[2018-04-09] MEDS: Levothyroxine 150 MCG TAB PO SCH (11:06)
[2018-04-09] MEDS: Vitamins A & D Oint UD Foilpak TOP SCH ×2 (12:35→18:31)
--- NOTE | 2018-04-09 13:39 | RAD ---
Chest x-ray single frontal view History: Repositioning of endotracheal tube. Comparison: 04/09/2018 Findings: Lines and tubes in stable position. Moderate to severe venous congestion. Right hilar prominence. Elevated right hemidiaphragm. Small to moderate left pleural effusion with left basilar airspace opacity. Cardiomegaly. Degenerative changes in the spine and shoulders. Scoliotic curvature of the spine. Impression: Lines and tubes in stable position. Moderate to severe venous congestion. Right hilar prominence. Elevated right hemidiaphragm. Small to moderate left pleural effusion with left basilar airspace opacity. Cardiomegaly. Degenerative changes in the spine and shoulders. Scoliotic curvature of the spine.
[2018-04-09] MEDS ORDERED: Labetalol 5mg/ml (4ml) IVP STA (16:26)
--- NOTE | 2018-04-09 17:45 | CP.PCM.HP ---
Past Patient History - Infectious Disease Hx of Infectious Diseases: None, VRE - Tetanus Immunizations Tetanus Immunization: Unknown - Past Medical History & Family History Past Medical History?: Yes - Past Social History Smoking Status: Never Smoked - CARDIAC Hx Cardiac Disorders: Yes Hx Angina: Yes Hx Hypertension: Yes - PULMONARY Hx Respiratory Disorders: Yes Hx Chronic Obstructive Pulmonary Disease (COPD): Yes Hx Sleep Apnea: Yes (on Bipap) - NEUROLOGICAL Hx Neurological Disorder: Yes Hx Dementia: Yes Hx Parkinson's Disease: Yes - HEENT Hx HEENT Problems: No - RENAL Hx Chronic Kidney Disease: No - ENDOCRINE/METABOLIC Hx Endocrine Disorders: Yes Hx Hypothyroidism: Yes - HEMATOLOGICAL/ONCOLOGICAL Hx Blood Disorders: Yes Hx Anemia: Yes - INTEGUMENTARY Hx Dermatological Problems: No - MUSCULOSKELETAL/RHEUMATOLOGICAL Hx Musculoskeletal Disorders: Yes Hx Arthritis: Yes Hx Falls: No - GASTROINTESTINAL Hx Gastrointestinal Disorders: Yes Hx Constipation: Yes Hx Gastroesophageal Reflux: Yes - GENITOURINARY/GYNECOLOGICAL Hx Genitourinary Disorders: Yes Hx Incontinence: Yes Hx Urinary Tract Infection: Yes - PSYCHIATRIC Hx Psychophysiologic Disorder: Yes Hx Anxiety: Yes Hx Bipolar Disorder: Yes Hx Depression: Yes - SURGICAL HISTORY Hx Surgeries: Yes Hx Hysterectomy: Yes Hx Orthopedic Surgery: Yes Other/Comment: right knee replacement 2014; right knee prosthesis removal s/p infection 2015 - ANESTHESIA Hx Anesthesia: Yes Hx Anesthesia Reactions: No Hx Malignant Hyperthermia: No Meds Allergies/Adverse Reactions: Allergies Allergy/AdvReac Type Severity Reaction Status Date / Time Cephalosporins Allergy Intermediate RASH Verified 04/08/18 20:07 Penicillins Allergy Intermediate RASH Verified 04/08/18 20:07 clonazepam [From Klonopin] Allergy Verified 04/08/18 20:07 mustard Allergy Intermediate RASH Uncoded 04/08/18 20:07 Results - Vital Signs Recent Vital Signs: Last Vital Signs Temp 98.6 F 04/09/18 16:00 Pulse 87 04/09/18 17:32 Resp 16 04/09/18 17:32 BP 119/76 04/09/18 17:33 Pulse Ox 100 04/09/18 17:32 - Labs Result Diagrams: 04/09/18 06:14 04/09/18 06:14 Labs: Laboratory Results - last 24 hr 04/08/18 04/08/18 04/08/18 20:12 21:04 21:35 WBC 15.1 H D RBC 4.06 Hgb 11.3 Hct 36.9 MCV 90.9 D MCH 27.8 MCHC 30.6 L RDW 15.7 H Plt Count 330 MPV 8.5 Neut % (Auto) 82.1 H Lymph % (Auto) 9.0 L [place] % (Auto) 7.5 Eos % (Auto) 0.7 Baso % (Auto) 0.7 Neut # (Auto) 12.4 H Lymph # (Auto) 1.4 [place] # (Auto) 1.1 H Eos # (Auto) 0.1 Baso # (Auto) 0.1 Neutrophils % (Manual) 82 H Band Neutrophils % Lymphocytes % (Manual) 11 L Monocytes % (Manual) 7 Platelet Estimate Normal Hypochromasia (manual) Slight Poikilocytosis (manual Slight Basophilic Stippling Anisocytosis (manual) Slight Rouleaux PT INR APTT Puncture Site Rradial pCO2 120 H* pO2 100 HCO3 35.4 H ABG pH 7.20 L ABG Total CO2 50.6 H ABG O2 Saturation 97.9 ABG Base Excess 13.5 H ABG Hemoglobin ABG Carboxyhemoglobin POC ABG HHb (Measured) ABG Methemoglobin Donta Test Pos ABG Potassium 3.5 L A-a O2 Difference -50.0 Respiratory Index -0.5 Hgb O2 Saturation Sodium 144.0 Chloride 102.0 Glucose 112 H Lactate 0.4 L Liter Flow 2.0 Vent Mode Mechanical Rate FiO2 28.0 Tidal Volume PEEP Inspiratory BiPAP Expiratory BiPAP Crit Value Called To Crit Value Called By Lacey rosas rcp Crit Value Read Back Y Blood Gas Notified Time 2140 Potassium Carbon Dioxide Anion Gap BUN Creatinine Est GFR ( Amer) Est GFR (Non-Af Amer) POC Glucose (mg/dL) 122 H Random Glucose Calcium Phosphorus Magnesium Total Bilirubin AST ALT Alkaline Phosphatase Total Creatine Kinase CK-MB (Mass) Troponin I NT-Pro-B Natriuret Pep Total Protein Albumin Globulin Albumin/Globulin Ratio Free T4 Free T3 pg/mL TSH 3rd Generation Arterial Blood Potassium 3.5 L 04/08/18 04/08/18 04/08/18 21:38 21:50 23:30 WBC RBC Hgb Hct MCV MCH MCHC RDW Plt Count MPV Neut % (Auto) Lymph % (Auto) [place] % (Auto) Eos % (Auto) Baso % (Auto) Neut # (Auto) Lymph # (Auto) [place] # (Auto) Eos # (Auto) Baso # (Auto) Neutrophils % (Manual) Band Neutrophils % Lymphocytes % (Manual) Monocytes % (Manual) Platelet Estimate Hypochromasia (manual) Poikilocytosis (manual Basophilic Stippling Anisocytosis (manual) Rouleaux PT 10.7 INR 1.0 APTT 38 H Puncture Site Rb pCO2 120 H* pO2 77 L HCO3 37.3 H ABG pH 7.21 L ABG Total CO2 51.7 H ABG O2 Saturation 96.5 ABG Base Excess 15.9 H ABG Hemoglobin 10.9 L ABG Carboxyhemoglobin 2.2 H POC ABG HHb (Measured) 3.4 ABG Methemoglobin 0.9 Donta Test Na ABG Potassium A-a O2 Difference 58.0 Respiratory Index 0.8 Hgb O2 Saturation 93.5 L Sodium 144 Chloride 91 L Glucose Lactate Liter Flow Vent Mode Bipap Mechanical Rate FiO2 40.0 Tidal Volume PEEP Inspiratory BiPAP 20 Expiratory BiPAP 10 Crit Value Called To Yazan simpson/rn Crit Value Called By Mark larry/rt Crit Value Read Back Y Blood Gas Notified Time 2340 Potassium 4.1 Carbon Dioxide 40 H* Anion Gap 17 BUN 25 H Creatinine 0.6 L Est GFR ( Amer) > 60 Est GFR (Non-Af Amer) > 60 POC Glucose (mg/dL) Random Glucose 128 H Calcium 8.6 Phosphorus Magnesium Total Bilirubin 0.3 AST 10 L ALT 10 Alkaline Phosphatase 77 Total Creatine Kinase 21 L CK-MB (Mass) 0.57 Troponin I < 0.0120 NT-Pro-B Natriuret Pep 311 Total Protein 7.1 Albumin 3.9 Globulin 3.2 Albumin/Globulin Ratio 1.2 Free T4 Free T3 pg/mL TSH 3rd Generation Arterial Blood Potassium 04/09/18 04/09/18 04/09/18 05:00 06:14 06:14 WBC 12.1 H RBC 3.83 Hgb 10.8 L Hct 34.0 MCV 88.9 D MCH 28.3 MCHC 31.9 L RDW 15.4 H Plt Count 284 MPV 8.6 Neut % (Auto) 91.2 H Lymph % (Auto) 7.0 L [place] % (Auto) 1.6 Eos % (Auto) 0.0 Baso % (Auto) 0.2 Neut # (Auto) 11.0 H Lymph # (Auto) 0.9 L [place] # (Auto) 0.2 Eos # (Auto) 0.0 Baso # (Auto) 0.0 Neutrophils % (Manual) 90 H Band Neutrophils % 1 Lymphocytes % (Manual) 7 L Monocytes % (Manual) 2 Platelet Estimate Normal Hypochromasia (manual) Poikilocytosis (manual Basophilic Stippling Slight Anisocytosis (manual) Rouleaux Slight PT INR APTT Puncture Site Rb pCO2 39 pO2 68 L HCO3 36.9 H ABG pH 7.60 H ABG Total CO2 39.5 H ABG O2 Saturation 97.9 ABG Base Excess 15.4 H ABG Hemoglobin 11.0 L ABG Carboxyhemoglobin 1.5 POC ABG HHb (Measured) 2.0 ABG Methemoglobin 1.2 Donta Test Na ABG Potassium A-a O2 Difference 240.0 Respiratory Index 3.5 Hgb O2 Saturation 95.3 Sodium 137 Chloride 94 L Glucose Lactate Liter Flow Vent Mode Prvc Mechanical Rate 18 FiO2 50.0 Tidal Volume 500 PEEP 5 Inspiratory BiPAP Expiratory BiPAP Crit Value Called To Crit Value Called By Crit Value Read Back Blood Gas Notified Time Potassium 4.2 Carbon Dioxide 33 H Anion Gap 14 BUN 27 H Creatinine 0.6 L Est GFR ( Amer) > 60 Est GFR (Non-Af Amer) > 60 POC Glucose (mg/dL) Random Glucose 143 H Calcium 8.5 L Phosphorus 1.9 L Magnesium 2.1 Total Bilirubin 0.6 AST 11 L ALT 21 Alkaline Phosphatase 74 Total Creatine Kinase CK-MB (Mass) Troponin I NT-Pro-B Natriuret Pep Total Protein 6.4 Albumin 3.7 Globulin 2.7 Albumin/Globulin Ratio 1.4 Free T4 Free T3 pg/mL TSH 3rd Generation Arterial Blood Potassium 04/09/18 04/09/18 13:15 13:16 WBC RBC Hgb Hct MCV MCH MCHC RDW Plt Count MPV Neut % (Auto) Lymph % (Auto) [place] % (Auto) Eos % (Auto) Baso % (Auto) Neut # (Auto) Lymph # (Auto) [place] # (Auto) Eos # (Auto) Baso # (Auto) Neutrophils % (Manual) Band Neutrophils % Lymphocytes % (Manual) Monocytes % (Manual) Platelet Estimate Hypochromasia (manual) Poikilocytosis (manual Basophilic Stippling Anisocytosis (manual) Rouleaux PT INR APTT Puncture Site pCO2 pO2 HCO3 ABG pH ABG Total CO2 ABG O2 Saturation ABG Base Excess ABG Hemoglobin ABG Carboxyhemoglobin POC ABG HHb (Measured) ABG Methemoglobin Donta Test ABG Potassium A-a O2 Difference Respiratory Index Hgb O2 Saturation Sodium Chloride Glucose Lactate Liter Flow Vent Mode Mechanical Rate FiO2 Tidal Volume PEEP Inspiratory BiPAP Expiratory BiPAP Crit Value Called To Crit Value Called By Crit Value Read Back Blood Gas Notified Time Potassium Carbon Dioxide Anion Gap BUN Creatinine Est GFR ( Amer) Est GFR (Non-Af Amer) POC Glucose (mg/dL) Random Glucose Calcium Phosphorus Magnesium Total Bilirubin AST ALT Alkaline Phosphatase Total Creatine Kinase CK-MB (Mass) Troponin I NT-Pro-B Natriuret Pep Total Protein Albumin Globulin Albumin/Globulin Ratio Free T4 2.20 H Free T3 pg/mL 3.20 TSH 3rd Generation 0.08 L Arterial Blood Potassium
[2018-04-09] MEDS: Insulin Detemir 100 units/ml Vial (Levemir) SC SCH (22:52)
--- NOTE | 2018-04-09 23:43 | CARD ---
APPROVED REPORT Date of service: 04/08/2018 EKG Measurement Heart [id number] <Conclusion> Poor data quality, interpretation may be adversely affected Sinus rhythm Nonspecific T wave abnormality Abnormal ECG
[2018-04-10] MEDS: Albuterol-Ipratrop 3 mg / 0.5 (3 ml) UD INH SCH ×6 (00:02→19:40)
[2018-04-10] MEDS: Vitamins A & D Oint UD Foilpak TOP SCH ×4 (01:18→17:55)
[2018-04-10] MEDS: Propofol 10 mg/ml 1,000 MG/100 ML VIAL IV PRN (02:08)
[2018-04-10 05:55] LABS: ABG ALLEN TEST POS; ARTERIAL BLOOD GAS HCO3 34.7 mmol/L (21-28); ARTERIAL BLOOD GAS O2 SAT 97.2 % (95-98); ARTERIAL BLOOD GAS PCO2 44 mm/Hg (35-45); ARTERIAL BLOOD GAS PH 7.53 (7.35-7.45); ARTERIAL BLOOD GAS PO2 71 mm/Hg (80-100); ARTERIAL BLOOD GAS TCO2 38.2 mmol/L (22-28)
[2018-04-10 06:08] LABS: BASO % 0.3 % (0.0-2.0); HEMOGLOBIN 11.1 g/dL (11.0-16.0); LYMPH # 0.8 K/uL (1.0-4.3); LYMPH % 8.3 % (20.0-40.0); MEAN CELL VOLUME 87.5 fL (81.0-99.0); MEAN CORPUSCULAR HEMOGLOBIN 29.3 pg (27.0-31.0); MEAN CORPUSCULAR HGB CONC 33.4 g/dL (33.0-37.0); MEAN PLATELET VOLUME 10.3 fL (7.2-11.7); MONO # 0.2 K/uL (0.0-0.8); MONO % 2.3 % (0.0-10.0); NEUT # 8.1 K/uL (1.8-7.0); NEUT % 89.1 % (50.0-75.0); PLATELET COUNT 282 K/uL (130-400); RED CELL DISTRIBUTION WIDTH 16.1 % (11.5-14.5); WHITE BLOOD COUNT 9.1 K/uL (4.8-10.8)
[2018-04-10] MEDS: Levothyroxine 150 MCG TAB PO SCH (06:09)
[2018-04-10 06:44] LABS: ALB/GLOB RATIO 1.4 (1.0-2.1); ALBUMIN 3.9 g/dL (3.5-5.0); ALT/SGPT 25 U/L (9-52); AST/SGOT 12 U/L (14-36); BLOOD UREA NITROGEN 35 mg/dL (7-17); CALCIUM 8.9 mg/dl (8.6-10.4); GFR NON-AFRICAN AMERICAN > 60
--- NOTE | 2018-04-10 06:59 | CP.CCUPN ---
<Yecenia Erazo P - Last Filed: 04/10/18 19:22> CCU Subjective - Physician Review Subjective (Free Text): PGY-1 critical care progress note. Patient seen and evaluated at bedside. Patient awake, alert and oriented. Extubated this afternoon after cpap trial. Currently on bipap, SpO2 100%. Patient states breathing is much improved. States she is hungry and would like to eat. Denies chest pain, dizziness, abdominal pain, nausea, and vomiting. CCU Objective - Vital Signs / Intake & Output Vital Signs (Last 4 hours): Vital Signs Temp Pulse Resp BP Pulse Ox 04/10/18 06:16 84 14 122/61 91 L 04/10/18 05:16 86 10 L 131/73 96 04/10/18 04:16 85 17 158/69 H 97 04/10/18 04:00 99.4 F 04/10/18 03:16 81 11 L 158/89 H 100 Intake and Output (Last 8hrs): Intake & Output 04/09/18 04/09/18 04/10/18 14:59 22:59 06:59 Intake Total 226.5 181.5 255.0 Output Total 150 1100 Balance 76.5 -918.5 255.0 Weight 291 lb 0.163 oz Intake: IV 100 100 100 Intake, IV Amount 126.5 81.5 155.0 Right Forearm 126.5 81.5 155.0 Tube Feeding 0 Output: Urine 150 1100 Urine, Voided 150 1100 Other: # Voids Urine, Voided 1 1 # Bowel Movements 0 1 - Physical Exam Head: Positive for: Atraumatic, Normocephalic Pupils: Negative for: Non-Reactive Extroacular Muscles: Positive for: EOMI Conjunctiva: Positive for: Normal. Negative for: Injected, Icteric Nose (External): Negative for: Abrasion Neck: Negative for: JVD, Lymphadenopathy Respiratory/Chest: Positive for: Decreased Breath Sounds, Other (on bipap ) Cardiovascular: Positive for: Regular Rate and Rhythm, Normal S1, S2. Negative for: Murmurs, Irregular Rhythm, Tachycardic, Bradycardic Abdomen: Positive for: Normal Bowel Sounds. Negative for: Tenderness Lower Extremity: Negative for: Edema Neurological: Positive for: CN II-XII Intact. Negative for: GCS=15 Skin: Positive for: Warm, Dry Psychiatric: Positive for: Alert, Oriented x 3 - Medications Active Medications: Active Medications Generic Name Dose Route Start Last Admin Trade Name Freq PRN Reason Stop Dose Admin Albuterol/Ipratropium 3 ml 04/09/18 04:00 04/10/18 03:05 Duoneb 3 Mg/0.5 Mg (3 Ml) Ud INH 3 ml RQ4 TIMOTEO Administration Carbidopa/Levodopa 1 tab 04/09/18 10:00 04/09/18 18:29 Sinemet PO 1 tab TID TIMOTEO Administration Carvedilol 25 mg 04/09/18 18:00 04/09/18 18:28 Coreg PO 25 mg DAILY TIMOTEO Administration Enoxaparin Sodium 120 mg 04/09/18 10:00 04/09/18 10:31 Lovenox SC 120 mg DAILY TIMOTEO Administration Furosemide 40 mg 04/09/18 10:00 04/09/18 10:30 Lasix PO 40 mg DAILY TIMOTEO Administration Gabapentin 300 mg 04/09/18 10:00 04/09/18 18:28 Neurontin PO 300 mg BID TIMOTEO Administration Propofol 1,000 mg in 100 mls @ 8.165 mls/hr 04/09/18 01:38 04/10/18 02:08 Diprivan IV 25 mcg/kg/min .[id number] PRN 20.412 mls/hr TITRATE PER MD ORDER Administration Protocol 10 MCG/KG/MIN Insulin Detemir 40 unit 04/09/18 22:00 04/09/18 22:52 Levemir SC Not Given HS TIMOTEO Levothyroxine Sodium 150 mcg 04/09/18 10:15 04/10/18 06:09 Synthroid PO 150 mcg DAILY@0630 TIMOTEO Administration Methylprednisolone 80 mg 04/09/18 06:00 04/10/18 06:09 Solu-Medrol IVP 80 mg Q8 TIMOTEO Administration Montelukast Sodium 10 mg 04/09/18 22:00 04/09/18 22:52 Singulair PO 10 mg HS TIMOTEO Administration Pantoprazole Sodium 40 mg 04/09/18 10:00 04/09/18 10:30 Protonix Inj IVP 40 mg DAILY TIMOTEO Administration Potassium Phos/Sodium Phos 1 pkt 04/09/18 10:00 04/09/18 18:28 Neutra-Phos PO 04/11/18 10:01 1 pkt BID TIMOTEO Administration Vitamin A 1 ea 04/09/18 12:00 04/10/18 06:09 Vitamin A & D Oint Ud Foilpak TOP 1 ea Q6 TIMOTEO Administration - Patient Studies Lab Studies: Microbiology Studies 04/08/18 21:00 Blood Culture - Preliminary Blood-Venous NO GROWTH AFTER 24 HOURS 04/08/18 21:15 Blood Culture - Preliminary Blood-Venous NO GROWTH AFTER 24 HOURS Lab Studies 04/10/18 04/10/18 04/10/18 Range/Units 06:00 06:00 05:52 WBC 9.1 (4.8-10.8) K/uL RBC 3.80 (3.80-5.20) Mil/uL Hgb 11.1 (11.0-16.0) g/dL Hct 33.3 L (34.0-47.0) % MCV 87.5 (81.0-99.0) fL MCH 29.3 (27.0-31.0) pg MCHC 33.4 (33.0-37.0) g/dL RDW 16.1 H (11.5-14.5) % Plt Count 282 (130-400) K/uL MPV 10.3 (7.2-11.7) fL Neut % (Auto) 89.1 H (50.0-75.0) % Lymph % (Auto) 8.3 L (20.0-40.0) % [place] % (Auto) 2.3 (0.0-10.0) % Eos % (Auto) 0.0 (0.0-4.0) % Baso % (Auto) 0.3 (0.0-2.0) % Neut # (Auto) 8.1 H (1.8-7.0) K/uL Lymph # (Auto) 0.8 L (1.0-4.3) K/uL [place] # (Auto) 0.2 (0.0-0.8) K/uL Eos # (Auto) 0.0 (0.0-0.7) K/uL Baso # (Auto) 0.0 (0.0-0.2) K/uL Neutrophils % (Manual) (50-75) % Band Neutrophils % (0-2) % Lymphocytes % (Manual) (20-40) % Monocytes % (Manual) (0-10) % Platelet Estimate (NORMAL) Basophilic Stippling Rouleaux Puncture Site pCO2 (35-45) mm/Hg pO2 (80-100) mm/Hg HCO3 (21-28) mmol/L ABG pH (7.35-7.45) ABG Total CO2 (22-28) mmol/L ABG O2 Saturation (95-98) % ABG Base Excess (-2.0-3.0) mmol/L [place] Test ABG Potassium (3.6-5.2) mmol/L A-a O2 Difference mm/Hg Respiratory Index Sodium 140 (132-148) mmol/l Chloride 94 L (98-107) mmol/L Glucose (65-105) mg/dl Lactate (0.7-2.1) mmol/L Vent Mode Mechanical Rate FiO2 % Tidal Volume PEEP Potassium 3.6 (3.6-5.2) mmol/L Carbon Dioxide 37 H (22-30) mmol/L Anion Gap 14 (10-20) BUN 35 H (7-17) mg/dL Creatinine 0.9 (0.7-1.2) mg/dL Est GFR ( Amer) > 60 Est GFR (Non-Af Amer) > 60 POC Glucose (mg/dL) 199 H (65-110) mg/dL Random Glucose 186 H (65-105) mg/dL Calcium 8.9 (8.6-10.4) mg/dl Phosphorus 2.9 (2.5-4.5) mg/dL Magnesium 2.3 (1.6-2.3) mg/dL Total Bilirubin 0.3 (0.2-1.3) mg/dL AST 12 L (14-36) U/L ALT 25 (9-52) U/L Alkaline Phosphatase 74 (38-126) U/L Total Protein 6.7 (6.3-8.3) g/dL Albumin 3.9 (3.5-5.0) g/dL Globulin 2.8 (2.2-3.9) gm/dL Albumin/Globulin Ratio 1.4 (1.0-2.1) Free T4 (0.78-2.19) ng/dL Free T3 pg/mL (2.77-5.27) pg/mL TSH 3rd Generation (0.46-4.68) mIU/L Arterial Blood Potassium (3.6-5.2) mmol/L 04/10/18 04/09/18 04/09/18 Range/Units 05:18 23:57 22:03 WBC (4.8-10.8) K/uL RBC (3.80-5.20) Mil/uL Hgb (11.0-16.0) g/dL Hct (34.0-47.0) % MCV (81.0-99.0) fL MCH (27.0-31.0) pg MCHC (33.0-37.0) g/dL RDW (11.5-14.5) % Plt Count (130-400) K/uL MPV (7.2-11.7) fL Neut % (Auto) (50.0-75.0) % Lymph % (Auto) (20.0-40.0) % [place] % (Auto) (0.0-10.0) % Eos % (Auto) (0.0-4.0) % Baso % (Auto) (0.0-2.0) % Neut # (Auto) (1.8-7.0) K/uL Lymph # (Auto) (1.0-4.3) K/uL [place] # (Auto) (0.0-0.8) K/uL Eos # (Auto) (0.0-0.7) K/uL Baso # (Auto) (0.0-0.2) K/uL Neutrophils % (Manual) (50-75) % Band Neutrophils % (0-2) % Lymphocytes % (Manual) (20-40) % Monocytes % (Manual) (0-10) % Platelet Estimate (NORMAL) Basophilic Stippling Rouleaux Puncture Site Rr pCO2 44 (35-45) mm/Hg pO2 71 L (80-100) mm/Hg HCO3 34.7 H (21-28) mmol/L ABG pH 7.53 H (7.35-7.45) ABG Total CO2 38.2 H (22-28) mmol/L ABG O2 Saturation 97.2 (95-98) % ABG Base Excess 12.6 H (-2.0-3.0) mmol/L [place] Test Pos ABG Potassium 3.4 L (3.6-5.2) mmol/L A-a O2 Difference 231.0 mm/Hg Respiratory Index 3.3 Sodium 138.0 (132-148) mmol/l Chloride 100.0 (98-107) mmol/L Glucose 196 H (65-105) mg/dl Lactate 1.6 (0.7-2.1) mmol/L Vent Mode Prvc Mechanical Rate 10 FiO2 50.0 % Tidal Volume 500 PEEP 5 Potassium (3.6-5.2) mmol/L Carbon Dioxide (22-30) mmol/L Anion Gap (10-20) BUN (7-17) mg/dL Creatinine (0.7-1.2) mg/dL Est GFR ( Amer) Est GFR (Non-Af Amer) POC Glucose (mg/dL) 131 H 134 H (65-110) mg/dL Random Glucose (65-105) mg/dL Calcium (8.6-10.4) mg/dl Phosphorus (2.5-4.5) mg/dL Magnesium (1.6-2.3) mg/dL Total Bilirubin (0.2-1.3) mg/dL AST (14-36) U/L ALT (9-52) U/L Alkaline Phosphatase (38-126) U/L Total Protein (6.3-8.3) g/dL Albumin (3.5-5.0) g/dL Globulin (2.2-3.9) gm/dL Albumin/Globulin Ratio (1.0-2.1) Free T4 (0.78-2.19) ng/dL Free T3 pg/mL (2.77-5.27) pg/mL TSH 3rd Generation (0.46-4.68) mIU/L Arterial Blood Potassium 3.4 L (3.6-5.2) mmol/L 04/09/18 04/09/18 04/09/18 Range/Units 13:16 13:15 06:14 WBC (4.8-10.8) K/uL RBC (3.80-5.20) Mil/uL Hgb (11.0-16.0) g/dL Hct (34.0-47.0) % MCV (81.0-99.0) fL MCH (27.0-31.0) pg MCHC (33.0-37.0) g/dL RDW (11.5-14.5) % Plt Count (130-400) K/uL MPV (7.2-11.7) fL Neut % (Auto) (50.0-75.0) % Lymph % (Auto) (20.0-40.0) % [place] % (Auto) (0.0-10.0) % Eos % (Auto) (0.0-4.0) % Baso % (Auto) (0.0-2.0) % Neut # (Auto) (1.8-7.0) K/uL Lymph # (Auto) (1.0-4.3) K/uL [place] # (Auto) (0.0-0.8) K/uL Eos # (Auto) (0.0-0.7) K/uL Baso # (Auto) (0.0-0.2) K/uL Neutrophils % (Manual) 90 H (50-75) % Band Neutrophils % 1 (0-2) % Lymphocytes % (Manual) 7 L (20-40) % Monocytes % (Manual) 2 (0-10) % Platelet Estimate Normal (NORMAL) Basophilic Stippling Slight Rouleaux Slight Puncture Site pCO2 (35-45) mm/Hg pO2 (80-100) mm/Hg HCO3 (21-28) mmol/L ABG pH (7.35-7.45) ABG Total CO2 (22-28) mmol/L ABG O2 Saturation (95-98) % ABG Base Excess (-2.0-3.0) mmol/L [place] Test ABG Potassium (3.6-5.2) mmol/L A-a O2 Difference mm/Hg Respiratory Index Sodium (132-148) mmol/l Chloride (98-107) mmol/L Glucose (65-105) mg/dl Lactate (0.7-2.1) mmol/L Vent Mode Mechanical Rate FiO2 % Tidal Volume PEEP Potassium (3.6-5.2) mmol/L Carbon Dioxide (22-30) mmol/L Anion Gap (10-20) BUN (7-17) mg/dL Creatinine (0.7-1.2) mg/dL Est GFR ( Amer) Est GFR (Non-Af Amer) POC Glucose (mg/dL) (65-110) mg/dL Random Glucose (65-105) mg/dL Calcium (8.6-10.4) mg/dl Phosphorus (2.5-4.5) mg/dL Magnesium (1.6-2.3) mg/dL Total Bilirubin (0.2-1.3) mg/dL AST (14-36) U/L ALT (9-52) U/L Alkaline Phosphatase (38-126) U/L Total Protein (6.3-8.3) g/dL Albumin (3.5-5.0) g/dL Globulin (2.2-3.9) gm/dL Albumin/Globulin Ratio (1.0-2.1) Free T4 2.20 H (0.78-2.19) ng/dL Free T3 pg/mL 3.20 (2.77-5.27) pg/mL TSH 3rd Generation 0.08 L (0.46-4.68) mIU/L Arterial Blood Potassium (3.6-5.2) mmol/L Laboratory Results - last 24 hr 04/09/18 04/09/18 04/09/18 06:14 13:15 13:16 WBC RBC Hgb Hct MCV MCH MCHC RDW Plt Count MPV Neut % (Auto) Lymph % (Auto) [place] % (Auto) Eos % (Auto) Baso % (Auto) Neut # (Auto) Lymph # (Auto) [place] # (Auto) Eos # (Auto) Baso # (Auto) Neutrophils % (Manual) 90 H Band Neutrophils % 1 Lymphocytes % (Manual) 7 L Monocytes % (Manual) 2 Platelet Estimate Normal Basophilic Stippling Slight Rouleaux Slight Puncture Site pCO2 pO2 HCO3 ABG pH ABG Total CO2 ABG O2 Saturation ABG Base Excess [place] Test ABG Potassium A-a O2 Difference Respiratory Index Sodium Chloride Glucose Lactate Vent Mode Mechanical Rate FiO2 Tidal Volume PEEP Potassium Carbon Dioxide Anion Gap BUN Creatinine Est GFR ( Amer) Est GFR (Non-Af Amer) POC Glucose (mg/dL) Random Glucose Calcium Phosphorus Magnesium Total Bilirubin AST ALT Alkaline Phosphatase Total Protein Albumin Globulin Albumin/Globulin Ratio Free T4 2.20 H Free T3 pg/mL 3.20 TSH 3rd Generation 0.08 L Arterial Blood Potassium 04/09/18 04/09/18 04/10/18 22:03 23:57 05:18 WBC RBC Hgb Hct MCV MCH MCHC RDW Plt Count MPV Neut % (Auto) Lymph % (Auto) [place] % (Auto) Eos % (Auto) Baso % (Auto) Neut # (Auto) Lymph # (Auto) [place] # (Auto) Eos # (Auto) Baso # (Auto) Neutrophils % (Manual) Band Neutrophils % Lymphocytes % (Manual) Monocytes % (Manual) Platelet Estimate Basophilic Stippling Rouleaux Puncture Site Rr pCO2 44 pO2 71 L HCO3 34.7 H ABG pH 7.53 H ABG Total CO2 38.2 H ABG O2 Saturation 97.2 ABG Base Excess 12.6 H [place] Test Pos ABG Potassium 3.4 L A-a O2 Difference 231.0 Respiratory Index 3.3 Sodium 138.0 Chloride 100.0 Glucose 196 H Lactate 1.6 Vent Mode Prvc Mechanical Rate 10 FiO2 50.0 Tidal Volume 500 PEEP 5 Potassium Carbon Dioxide Anion Gap BUN Creatinine Est GFR ( Amer) Est GFR (Non-Af Amer) POC Glucose (mg/dL) 134 H 131 H Random Glucose Calcium Phosphorus Magnesium Total Bilirubin AST ALT Alkaline Phosphatase Total Protein Albumin Globulin Albumin/Globulin Ratio Free T4 Free T3 pg/mL TSH 3rd Generation Arterial Blood Potassium 3.4 L 04/10/18 04/10/18 04/10/18 05:52 06:00 06:00 WBC 9.1 RBC 3.80 Hgb 11.1 Hct 33.3 L MCV 87.5 MCH 29.3 MCHC 33.4 RDW 16.1 H Plt Count 282 MPV 10.3 Neut % (Auto) 89.1 H Lymph % (Auto) 8.3 L [place] % (Auto) 2.3 Eos % (Auto) 0.0 Baso % (Auto) 0.3 Neut # (Auto) 8.1 H Lymph # (Auto) 0.8 L [place] # (Auto) 0.2 Eos # (Auto) 0.0 Baso # (Auto) 0.0 Neutrophils % (Manual) Band Neutrophils % Lymphocytes % (Manual) Monocytes % (Manual) Platelet Estimate Basophilic Stippling Rouleaux Puncture Site pCO2 pO2 HCO3 ABG pH ABG Total CO2 ABG O2 Saturation ABG Base Excess [place] Test ABG Potassium A-a O2 Difference Respiratory Index Sodium 140 Chloride 94 L Glucose Lactate Vent Mode Mechanical Rate FiO2 Tidal Volume PEEP Potassium 3.6 Carbon Dioxide 37 H Anion Gap 14 BUN 35 H Creatinine 0.9 Est GFR ( Amer) > 60 Est GFR (Non-Af Amer) > 60 POC Glucose (mg/dL) 199 H Random Glucose 186 H Calcium 8.9 Phosphorus 2.9 Magnesium 2.3 Total Bilirubin 0.3 AST 12 L ALT 25 Alkaline Phosphatase 74 Total Protein 6.7 Albumin 3.9 Globulin 2.8 Albumin/Globulin Ratio 1.4 Free T4 Free T3 pg/mL TSH 3rd Generation Arterial Blood Potassium Fingerstick Blood Sugar Results: 199 Review of Systems - Review of Systems All systems: reviewed and no additional remarkable complaints except (as per HPI ) Critical Care Progress Note - Prophylaxis GI Prophylaxis GI: PPI - Prophylaxis DVT Prophylaxis DVT: Lovenox Assessment/Plan - Assessment and Plan (Free Text) Plan: 72 yo F with PMHx of COPD, obstructive sleep apnea, HTN, anemia, bipolar disorder admitted to ICU for COPD exacerbation. Intubated 04/08 due to AMS secondary to hypercapnea, pCO2 120 on admission. Hypercapnea resolved, repeat pCO2=44. Patient off sedation, awake and alert, following commands. Extubated . Neuro: off propofol sedation since this morning. Patient awake, alert and oriented x3. Carbidopa/Levodopa 1tab PO TID Gabapentin 300 mg PO BID Restart Lexapro 10mg PO tomorrow Cardio: Carvedilol 25mg PO BID, increased due to elevated sbp in the 180s off sedation Lasix 40mg PO daily Pulm: tolerated cpap trial today and subsequently extubated this afternoon, now on bipap, SpO2 100% CXR 04/10: Moderate venous congestion, patchy bibasilar airspace opacities. Moderate L and small R pleural effusion. Cardiomegaly (see full report). Duoneb Q4 Methylprednisolone 80mg IVP Q8 Singulair 10mg PO HS GI: diet pending swallow evaluation Renal: Cr:0.9 Neutra-Phos 1pkt PO BID Endo: Levemir 40u SC HS Levothyroxine 150mcg PO daily Heme: H/H stable WBC and PLT wnl ID: WBC: downtrending afebrile PPx: Protonix, Lovenox 120 SC daily Dispo: Continue ICU management Case was reviewed and discussed with attending physician, Dr. Rivera. <Hudson Rivera - Last Filed: 04/15/18 21:11> CCU Subjective - Physician Review Critical Care Time Spent (in minutes): 52 CCU Objective - Vital Signs / Intake & Output Intake and Output (Last 8hrs): Intake & Output 04/15/18 04/15/18 04/15/18 06:59 14:59 22:59 Output Total 1200 Balance -1200 Weight 295 lb Output: Urine 1200 Urine, Voided 1200 - Medications Active Medications: Active Medications Generic Name Dose Route Start Last Admin Trade Name Freq PRN Reason Stop Dose Admin Albuterol/Ipratropium 3 ml 04/15/18 00:15 04/15/18 19:12 Duoneb 3 Mg/0.5 Mg (3 Ml) Ud INH 3 ml RQ4 TIMOTEO Administration Aspirin 81 mg 04/11/18 10:00 04/15/18 09:34 Aspirin Chewable PO 81 mg DAILY TIMOTEO Administration Carbidopa/Levodopa 1 tab 04/15/18 10:00 04/15/18 18:35 Sinemet PO 1 tab BID TIMOTEO Administration Dextrose 0 ml 04/10/18 19:16 Dextrose 50% Inj IV STAT PRN Hypoglycemia Protocol Protocol Dextrose 0 gm 04/10/18 19:16 Glutose 15 PO ONCE PRN Hypoglycemia Protocol Protocol Escitalopram Oxalate 10 mg 04/11/18 10:00 04/15/18 09:34 Lexapro PO 10 mg DAILY TIMOTEO Administration Gabapentin 300 mg 04/09/18 10:00 04/15/18 18:35 Neurontin PO 300 mg BID TIMOTEO Administration Glucagon 0 mg 04/10/18 19:16 Glucagen Diagnostic Kit IM STAT PRN Hypoglycemia Protocol Protocol Insulin Detemir 40 unit 04/09/18 22:00 04/14/18 21:53 Levemir SC 40 u HS TIMOTEO Administration Insulin Human Regular 0 unit 04/11/18 17:15 04/15/18 18:35 Novolin R SC 4 units ACHS TIMOTEO Administration Protocol Levothyroxine Sodium 150 mcg 04/09/18 10:15 04/15/18 05:34 Synthroid PO 150 mcg DAILY@0630 TIMOTEO Administration Lisinopril 2.5 mg 04/11/18 10:00 04/15/18 09:45 Zestril PO 2.5 mg DAILY TIMOTEO Administration Methylprednisolone 40 mg 04/11/18 09:00 04/15/18 18:00 Solu-Medrol IVP 40 mg Q8H TIMOTEO Administration Metoprolol Tartrate 25 mg 04/11/18 18:00 04/15/18 09:33 Lopressor PO 25 mg BID TIMOTEO Administration Montelukast Sodium 10 mg 04/09/18 22:00 04/14/18 21:53 Singulair PO 10 mg HS TIMOTEO Administration Pantoprazole Sodium 40 mg 04/11/18 10:00 04/15/18 09:34 Protonix Ec Tab PO 40 mg DAILY TIMOTEO Administration Primidone 50 mg 04/15/18 22:00 Mysoline PO HS TIMOTEO Rosuvastatin Calcium 2.5 mg 04/11/18 22:00 04/14/18 21:52 Crestor PO 2.5 mg HS TIMOTEO Administration Vitamin A 1 ea 04/09/18 12:00 04/15/18 18:35 Vitamin A & D Oint Ud Foilpak TOP 1 ea Q6 TIMOTEO Administration - Patient Studies Lab Studies: Lab Studies 04/15/18 04/15/18 04/15/18 Range/Units 17:20 17:20 12:22 WBC (4.8-10.8) K/uL RBC (3.80-5.20) Mil/uL Hgb (11.0-16.0) g/dL Hct (34.0-47.0) % MCV (81.0-99.0) fL MCH (27.0-31.0) pg MCHC (33.0-37.0) g/dL RDW (11.5-14.5) % Plt Count (130-400) K/uL MPV (7.2-11.7) fL Neut % (Auto) (50.0-75.0) % Lymph % (Auto) (20.0-40.0) % [place] % (Auto) (0.0-10.0) % Eos % (Auto) (0.0-4.0) % Baso % (Auto) (0.0-2.0) % Neut # (Auto) (1.8-7.0) K/uL Lymph # (Auto) (1.0-4.3) K/uL [place] # (Auto) (0.0-0.8) K/uL Eos # (Auto) (0.0-0.7) K/uL Baso # (Auto) (0.0-0.2) K/uL Neutrophils % (Manual) (50-75) % Lymphocytes % (Manual) (20-40) % Monocytes % (Manual) (0-10) % Platelet Estimate (NORMAL) Anisocytosis (manual) Ovalocytes ESR (0-20) mm/hr Sodium (132-148) mmol/L Potassium (3.6-5.2) mmol/L Chloride (98-107) mmol/L Carbon Dioxide (22-30) mmol/L Anion Gap (10-20) BUN (7-17) mg/dL Creatinine (0.7-1.2) mg/dL Est GFR ( Amer) Est GFR (Non-Af Amer) POC Glucose (mg/dL) 175 H (65-110) mg/dL Random Glucose (65-105) mg/dL Calcium (8.6-10.4) mg/dl Phosphorus (2.5-4.5) mg/dL Magnesium (1.6-2.3) mg/dL Total Bilirubin (0.2-1.3) mg/dL AST (14-36) U/L ALT (9-52) U/L Alkaline Phosphatase (38-126) U/L Ammonia < 9 L (9-33) umol/L Total Protein (6.3-8.3) g/dL Albumin (3.5-5.0) g/dL Globulin (2.2-3.9) gm/dL Albumin/Globulin Ratio (1.0-2.1) Vitamin B12 (239-931) pg/mL Free T4 1.24 (0.78-2.19) ng/dL TSH 3rd Generation 0.31 L (0.46-4.68) mIU/L Prolactin (3.0-18.9) ng/mL 04/15/18 04/15/18 04/15/18 Range/Units 06:26 06:26 06:15 WBC 10.4 (4.8-10.8) K/uL RBC 4.37 (3.80-5.20) Mil/uL Hgb 11.9 (11.0-16.0) g/dL Hct 37.9 (34.0-47.0) % MCV 86.9 (81.0-99.0) fL MCH 27.4 (27.0-31.0) pg MCHC 31.5 L (33.0-37.0) g/dL RDW 15.8 H (11.5-14.5) % Plt Count 198 (130-400) K/uL MPV 10.3 (7.2-11.7) fL Neut % (Auto) 88.1 H (50.0-75.0) % Lymph % (Auto) 7.1 L (20.0-40.0) % [place] % (Auto) 4.8 (0.0-10.0) % Eos % (Auto) 0.0 (0.0-4.0) % Baso % (Auto) 0.0 (0.0-2.0) % Neut # (Auto) 9.2 H (1.8-7.0) K/uL Lymph # (Auto) 0.7 L (1.0-4.3) K/uL [place] # (Auto) 0.5 (0.0-0.8) K/uL Eos # (Auto) 0.0 (0.0-0.7) K/uL Baso # (Auto) 0.0 (0.0-0.2) K/uL Neutrophils % (Manual) 90 H (50-75) % Lymphocytes % (Manual) 6 L (20-40) % Monocytes % (Manual) 4 (0-10) % Platelet Estimate Normal (NORMAL) Anisocytosis (manual) Slight Ovalocytes Slight ESR 30 H (0-20) mm/hr Sodium 136 (132-148) mmol/L Potassium 4.8 (3.6-5.2) mmol/L Chloride 99 (98-107) mmol/L Carbon Dioxide 30 (22-30) mmol/L Anion Gap 13 (10-20) BUN 35 H (7-17) mg/dL Creatinine 1.0 (0.7-1.2) mg/dL Est GFR ( Amer) > 60 Est GFR (Non-Af Amer) 55 POC Glucose (mg/dL) 275 H (65-110) mg/dL Random Glucose 275 H (65-105) mg/dL Calcium 8.8 (8.6-10.4) mg/dl Phosphorus 3.4 (2.5-4.5) mg/dL Magnesium 2.3 (1.6-2.3) mg/dL Total Bilirubin 0.3 (0.2-1.3) mg/dL AST 19 (14-36) U/L ALT 39 (9-52) U/L Alkaline Phosphatase 61 (38-126) U/L Ammonia (9-33) umol/L Total Protein 6.3 (6.3-8.3) g/dL Albumin 3.6 (3.5-5.0) g/dL Globulin 2.7 (2.2-3.9) gm/dL Albumin/Globulin Ratio 1.3 (1.0-2.1) Vitamin B12 751 (239-931) pg/mL Free T4 (0.78-2.19) ng/dL TSH 3rd Generation (0.46-4.68) mIU/L Prolactin 14.6 (3.0-18.9) ng/mL 04/14/18 Range/Units 20:59 WBC (4.8-10.8) K/uL RBC (3.80-5.20) Mil/uL Hgb (11.0-16.0) g/dL Hct (34.0-47.0) % MCV (81.0-99.0) fL MCH (27.0-31.0) pg MCHC (33.0-37.0) g/dL RDW (11.5-14.5) % Plt Count (130-400) K/uL MPV (7.2-11.7) fL Neut % (Auto) (50.0-75.0) % Lymph % (Auto) (20.0-40.0) % [place] % (Auto) (0.0-10.0) % Eos % (Auto) (0.0-4.0) % Baso % (Auto) (0.0-2.0) % Neut # (Auto) (1.8-7.0) K/uL Lymph # (Auto) (1.0-4.3) K/uL [place] # (Auto) (0.0-0.8) K/uL Eos # (Auto) (0.0-0.7) K/uL Baso # (Auto) (0.0-0.2) K/uL Neutrophils % (Manual) (50-75) % Lymphocytes % (Manual) (20-40) % Monocytes % (Manual) (0-10) % Platelet Estimate (NORMAL) Anisocytosis (manual) Ovalocytes ESR (0-20) mm/hr Sodium (132-148) mmol/L Potassium (3.6-5.2) mmol/L Chloride (98-107) mmol/L Carbon Dioxide (22-30) mmol/L Anion Gap (10-20) BUN (7-17) mg/dL Creatinine (0.7-1.2) mg/dL Est GFR ( Amer) Est GFR (Non-Af Amer) POC Glucose (mg/dL) 200 H (65-110) mg/dL Random Glucose (65-105) mg/dL Calcium (8.6-10.4) mg/dl Phosphorus (2.5-4.5) mg/dL Magnesium (1.6-2.3) mg/dL Total Bilirubin (0.2-1.3) mg/dL AST (14-36) U/L ALT (9-52) U/L Alkaline Phosphatase (38-126) U/L Ammonia (9-33) umol/L Total Protein (6.3-8.3) g/dL Albumin (3.5-5.0) g/dL Globulin (2.2-3.9) gm/dL Albumin/Globulin Ratio (1.0-2.1) Vitamin B12 (239-931) pg/mL Free T4 (0.78-2.19) ng/dL TSH 3rd Generation (0.46-4.68) mIU/L Prolactin (3.0-18.9) ng/mL Laboratory Results - last 24 hr 04/14/18 04/15/18 04/15/18 20:59 06:15 06:26 WBC 10.4 RBC 4.37 Hgb 11.9 Hct 37.9 MCV 86.9 MCH 27.4 MCHC 31.5 L RDW 15.8 H Plt Count 198 MPV 10.3 Neut % (Auto) 88.1 H Lymph % (Auto) 7.1 L [place] % (Auto) 4.8 Eos % (Auto) 0.0 Baso % (Auto) 0.0 Neut # (Auto) 9.2 H Lymph # (Auto) 0.7 L [place] # (Auto) 0.5 Eos # (Auto) 0.0 Baso # (Auto) 0.0 Neutrophils % (Manual) 90 H Lymphocytes % (Manual) 6 L Monocytes % (Manual) 4 Platelet Estimate Normal Anisocytosis (manual) Slight Ovalocytes Slight ESR 30 H Sodium Potassium Chloride Carbon Dioxide Anion Gap BUN Creatinine Est GFR ( Amer) Est GFR (Non-Af Amer) POC Glucose (mg/dL) 200 H 275 H Random Glucose Calcium Phosphorus Magnesium Total Bilirubin AST ALT Alkaline Phosphatase Ammonia Total Protein Albumin Globulin Albumin/Globulin Ratio Vitamin B12 Free T4 TSH 3rd Generation Prolactin 04/15/18 04/15/18 04/15/18 06:26 12:22 17:20 WBC RBC Hgb Hct MCV MCH MCHC RDW Plt Count MPV Neut % (Auto) Lymph % (Auto) [place] % (Auto) Eos % (Auto) Baso % (Auto) Neut # (Auto) Lymph # (Auto) [place] # (Auto) Eos # (Auto) Baso # (Auto) Neutrophils % (Manual) Lymphocytes % (Manual) Monocytes % (Manual) Platelet Estimate Anisocytosis (manual) Ovalocytes ESR Sodium 136 Potassium 4.8 Chloride 99 Carbon Dioxide 30 Anion Gap 13 BUN 35 H Creatinine 1.0 Est GFR ( Amer) > 60 Est GFR (Non-Af Amer) 55 POC Glucose (mg/dL) 175 H Random Glucose 275 H Calcium 8.8 Phosphorus 3.4 Magnesium 2.3 Total Bilirubin 0.3 AST 19 ALT 39 Alkaline Phosphatase 61 Ammonia < 9 L Total Protein 6.3 Albumin 3.6 Globulin 2.7 Albumin/Globulin Ratio 1.3 Vitamin B12 751 Free T4 TSH 3rd Generation Prolactin 14.6 04/15/18 17:20 WBC RBC Hgb Hct MCV MCH MCHC RDW Plt Count MPV Neut % (Auto) Lymph % (Auto) [place] % (Auto) Eos % (Auto) Baso % (Auto) Neut # (Auto) Lymph # (Auto) [place] # (Auto) Eos # (Auto) Baso # (Auto) Neutrophils % (Manual) Lymphocytes % (Manual) Monocytes % (Manual) Platelet Estimate Anisocytosis (manual) Ovalocytes ESR Sodium Potassium Chloride Carbon Dioxide Anion Gap BUN Creatinine Est GFR ( Amer) Est GFR (Non-Af Amer) POC Glucose (mg/dL) Random Glucose Calcium Phosphorus Magnesium Total Bilirubin AST ALT Alkaline Phosphatase Ammonia Total Protein Albumin Globulin Albumin/Globulin Ratio Vitamin B12 Free T4 1.24 TSH 3rd Generation 0.31 L Prolactin Critical Care Progress Note - Nutrition Nutrition: Nutrition Category Date Time Status Consistent Carbohydrate [DIET] Diets 04/15/18 Dinner Active Assessment/Plan (1) Acute respiratory acidosis Current Visit: Yes Status: Acute Priority: High (2) Acute respiratory failure with hypercapnia Current Visit: Yes Status: Acute Priority: High (3) Altered mental status Current Visit: Yes Status: Acute Priority: High (4) COPD (chronic obstructive pulmonary disease) Current Visit: Yes Status: Acute Priority: High (5) COPD exacerbation Current Visit: Yes Status: Acute Priority: High (6) FESTUS (obstructive sleep apnea) Current Visit: Yes Status: Acute Priority: High
[2018-04-10 08:55] LABS: LYMPHOCYTE 7 % (20-40); TOTAL CELLS COUNTED 100
[2018-04-10 08:56] LABS: ANISOCYTOSIS SLIGHT; HYPOCHROMIC SLIGHT; MONOCYTE 2 % (0-10); NEUTROPHIL 91 % (50-75); PLATELET ESTIMATE NORMAL (NORMAL); POIKILOCYTOSIS SLIGHT
[2018-04-10] MEDS: Potassium & Sodium Phosphate PO SCH ×2 (10:15→17:55)
--- NOTE | 2018-04-10 10:27 | RAD ---
Chest x-ray single frontal view History: Intubation. Comparison: 04/09/2018 Findings: Endotracheal tube extending into the midthoracic trachea. NG tube extending into the stomach. Moderate venous congestion. Patchy bibasilar airspace opacities. Moderate left and small right pleural effusion. Cardiomegaly. Scoliotic curvature of the spine. Degenerative changes in the spine and shoulders. Impression: Endotracheal tube extending into the midthoracic trachea. NG tube extending into the stomach. Moderate venous congestion. Patchy bibasilar airspace opacities. Moderate left and small right pleural effusion. Cardiomegaly. Scoliotic curvature of the spine.
[2018-04-10] MEDS: Enoxaparin 120 mg Syringe SC SCH (10:55)
[2018-04-10 15:54] LABS: ABG ALLEN TEST PO; ARTERIAL BLOOD GAS HCO3 35.8 mmol/L (21-28); ARTERIAL BLOOD GAS O2 SAT 97.5 % (95-98); ARTERIAL BLOOD GAS PCO2 42 mm/Hg (35-45); ARTERIAL BLOOD GAS PH 7.56 (7.35-7.45); ARTERIAL BLOOD GAS PO2 78 mm/Hg (80-100); ARTERIAL BLOOD GAS TCO2 38.9 mmol/L (22-28)
[2018-04-10] MEDS ORDERED: Potassium Chloride 20 mEq/15 ml LIQ UD PO ONE (16:02)
--- NOTE | 2018-04-10 16:19 | PCM.PROC ---
Procedures Attestation:: I certify that I have explained the specified Operation(s) or Procedure(s), risks, benefits and reasonable alternatives to the Patient and/or other person responsible. The opportunity was given to ask questions and all questions answered - Extubation RSBI Score: 36 Clinical Parameters: Resolution/Stabilization of disease process, Hemodynamically Stable, Intact Cough/Gag Reflex, Spontaneous Respirations, Acceptable Vent Settings (FIO2<50%, PEEP<8, PaO2>75, pH>7.25) Weaning Criteria Met: Yes General Weaning Approaches: Pressure Support Ventilation (PSV) Weaning Patient Condition: Patient has been successfully extubated and assessed Oxygen Therapy: Bipap Patient Tolerated Procedure: Well
--- NOTE | 2018-04-10 17:16 | CP.PCM.CON ---
History of Present Illness - History of Present Illness History of Present Illness: reason for consultation: hypercapnic respiratory failure [id number] female with history of COPD, sleep apnea, bipolar disorder, depression, Parkinson's disease who was [place] for shortness of breath and chest pressur. Patient found to have elevated pCO2, was placed on BiPAP and admitted to ICU . in the ICU patient was intubated and placed on ventilatory support. PMHx: Anemia, Anxiety, Arthritis, Bipolar Disorder, COPD, Depression, HTN, Hypothyroidism, Parkinson's, Sleep Apnea (on Bipap) (As per chart review) PSHx: Right knee fusion, 1 ovary removed, uterine/ovarian cyst removal, C- sections, hysterectomy (As per chart review) FHx: HTN-mother, aunt, uncle; DM-son; Breast cysts-mother. (As per chart review) Medications: Please refer to the chart Allergies: Cephalosporins, penicillins, clonazepam, mustard (As per mariam review) Social History: Smoked 5 cigs/day for 40 yrs, quit 10 yrs ago. Denies EtOH and drug use (As per mariam review) Review of Systems - Review of Systems Systems not reviewed;Unavailable: Intubated Past Patient History - Infectious Disease Hx of Infectious Diseases: None, VRE - Tetanus Immunizations Tetanus Immunization: Unknown - Past Medical History & Family History Past Medical History?: Yes - Past Social History Smoking Status: Never Smoked - CARDIAC Hx Cardiac Disorders: Yes Hx Angina: Yes Hx Hypertension: Yes - PULMONARY Hx Respiratory Disorders: Yes Hx Chronic Obstructive Pulmonary Disease (COPD): Yes Hx Sleep Apnea: Yes (on Bipap) - NEUROLOGICAL Hx Neurological Disorder: Yes Hx Dementia: Yes Hx Parkinson's Disease: Yes - HEENT Hx HEENT Problems: No - RENAL Hx Chronic Kidney Disease: No - ENDOCRINE/METABOLIC Hx Endocrine Disorders: Yes Hx Hypothyroidism: Yes - HEMATOLOGICAL/ONCOLOGICAL Hx Blood Disorders: Yes Hx Anemia: Yes - INTEGUMENTARY Hx Dermatological Problems: No - MUSCULOSKELETAL/RHEUMATOLOGICAL Hx Musculoskeletal Disorders: Yes Hx Arthritis: Yes Hx Falls: No - GASTROINTESTINAL Hx Gastrointestinal Disorders: Yes Hx Constipation: Yes Hx Gastroesophageal Reflux: Yes - GENITOURINARY/GYNECOLOGICAL Hx Genitourinary Disorders: Yes Hx Incontinence: Yes Hx Urinary Tract Infection: Yes - PSYCHIATRIC Hx Psychophysiologic Disorder: Yes Hx Anxiety: Yes Hx Bipolar Disorder: Yes Hx Depression: Yes - SURGICAL HISTORY Hx Surgeries: Yes Hx Hysterectomy: Yes Hx Orthopedic Surgery: Yes Other/Comment: right knee replacement 2015; right knee prosthesis removal s/p infection 2015 - ANESTHESIA Hx Anesthesia: Yes Hx Anesthesia Reactions: No Hx Malignant Hyperthermia: No Meds Allergies/Adverse Reactions: Allergies Allergy/AdvReac Type Severity Reaction Status Date / Time Cephalosporins Allergy Intermediate RASH Verified 04/08/18 20:07 Penicillins Allergy Intermediate RASH Verified 04/08/18 20:07 clonazepam [From Klonopin] Allergy Verified 04/08/18 20:07 mustard Allergy Intermediate RASH Uncoded 04/08/18 20:07 - Medications Medications: Current Medications Albuterol/Ipratropium (Duoneb 3 Mg/0.5 Mg (3 Ml) Ud) 3 ml INH RQ4 [facility] Last Admin: 04/10/18 16:13 Dose: 3 ml Carbidopa/Levodopa (Sinemet) 1 tab PO TID [facility] Last Admin: 04/09/18 18:29 Dose: 1 tab Carvedilol (Coreg) 25 mg PO DAILY [facility] Last Admin: 04/09/18 18:28 Dose: 25 mg Enoxaparin Sodium (Lovenox) 120 mg SC DAILY [facility] Last Admin: 04/09/18 10:31 Dose: 120 mg Furosemide (Lasix) 40 mg PO DAILY [facility] Last Admin: 04/09/18 10:30 Dose: 40 mg Gabapentin (Neurontin) 300 mg PO BID [facility] Last Admin: 04/09/18 18:28 Dose: 300 mg Potassium Chloride (Potassium Chloride 10 Meq/100 Ml) 10 meq in 100 mls @ 100 mls/hr IVPB Q1H [facility] Stop: 04/10/18 17:59 Insulin Detemir (Levemir) 40 unit SC [facility] Last Admin: 04/09/18 22:52 Dose: Not Given Levothyroxine Sodium (Synthroid) 150 mcg PO DAILY@0630 [facility] Last Admin: 04/10/18 06:09 Dose: 150 mcg Methylprednisolone (Solu-Medrol) 80 mg IVP Q8 [facility] Last Admin: 04/10/18 06:09 Dose: 80 mg Montelukast Sodium (Singulair) 10 mg PO [facility] Last Admin: 04/09/18 22:52 Dose: 10 mg Pantoprazole Sodium (Protonix Inj) 40 mg IVP DAILY [facility] Last Admin: 04/09/18 10:30 Dose: 40 mg Potassium Phos/Sodium Phos (Neutra-Phos) 1 pkt PO BID [facility] Stop: 04/11/18 10:01 Last Admin: 04/09/18 18:28 Dose: 1 pkt Vitamin A (Vitamin A & D Oint Ud Foilpak) 1 ea TOP Q6 [facility] Last Admin: 04/10/18 06:09 Dose: 1 ea Physical Exam - Head Exam Head Exam: ATRAUMATIC, NORMOCEPHALIC - ENT Exam ENT Exam: Mucous Membranes Moist - Neck Exam Neck exam: Positive for: Normal Inspection - Respiratory Exam Respiratory Exam: Decreased Breath Sounds - Cardiovascular Exam Cardiovascular Exam: REGULAR RHYTHM - GI/Abdominal Exam GI & Abdominal Exam: Normal Bowel Sounds, Soft - Extremities Exam Extremities exam: Positive for: pedal edema Results - Vital Signs Recent Vital Signs: Last Vital Signs Temp 98.0 F 04/10/18 08:00 Pulse 76 04/10/18 15:15 Resp 14 04/10/18 15:15 BP 176/83 H 04/10/18 15:15 Pulse Ox 69 L 04/10/18 15:15 - Labs Result Diagrams: 04/10/18 06:00 04/10/18 06:00 Labs: Laboratory Results - last 24 hr 04/09/18 04/09/18 04/10/18 22:03 23:57 05:18 WBC RBC Hgb Hct MCV MCH MCHC RDW Plt Count MPV Neut % (Auto) Lymph % (Auto) Carbon % (Auto) Eos % (Auto) Baso % (Auto) Neut # (Auto) Lymph # (Auto) Carbon # (Auto) Eos # (Auto) Baso # (Auto) Neutrophils % (Manual) Lymphocytes % (Manual) Monocytes % (Manual) Platelet Estimate Hypochromasia (manual) Poikilocytosis (manual Anisocytosis (manual) Puncture Site Rr pCO2 44 pO2 71 L HCO3 34.7 H ABG pH 7.53 H ABG Total CO2 38.2 H ABG O2 Saturation 97.2 ABG Base Excess 12.6 H Donta Test Pos ABG Potassium 3.4 L A-a O2 Difference 231.0 Respiratory Index 3.3 Sodium 138.0 Chloride 100.0 Glucose 196 H Lactate 1.6 Vent Mode Prvc Mechanical Rate 10 FiO2 50.0 Tidal Volume 500 PEEP 5 Pressure Support Potassium Carbon Dioxide Anion Gap BUN Creatinine Est GFR ( Amer) Est GFR (Non-Af Amer) POC Glucose (mg/dL) 134 H 131 H Random Glucose Calcium Phosphorus Magnesium Total Bilirubin AST ALT Alkaline Phosphatase Total Protein Albumin Globulin Albumin/Globulin Ratio Arterial Blood Potassium 3.4 L 04/10/18 04/10/18 04/10/18 05:52 06:00 06:00 WBC 9.1 RBC 3.80 Hgb 11.1 Hct 33.3 L MCV 87.5 MCH 29.3 MCHC 33.4 RDW 16.1 H Plt Count 282 MPV 10.3 Neut % (Auto) 89.1 H Lymph % (Auto) 8.3 L Carbon % (Auto) 2.3 Eos % (Auto) 0.0 Baso % (Auto) 0.3 Neut # (Auto) 8.1 H Lymph # (Auto) 0.8 L Carbon # (Auto) 0.2 Eos # (Auto) 0.0 Baso # (Auto) 0.0 Neutrophils % (Manual) 91 H Lymphocytes % (Manual) 7 L Monocytes % (Manual) 2 Platelet Estimate Normal Hypochromasia (manual) Slight Poikilocytosis (manual Slight Anisocytosis (manual) Slight Puncture Site pCO2 pO2 HCO3 ABG pH ABG Total CO2 ABG O2 Saturation ABG Base Excess Donta Test ABG Potassium A-a O2 Difference Respiratory Index Sodium 140 Chloride 94 L Glucose Lactate Vent Mode Mechanical Rate FiO2 Tidal Volume PEEP Pressure Support Potassium 3.6 Carbon Dioxide 37 H Anion Gap 14 BUN 35 H Creatinine 0.9 Est GFR ( Amer) > 60 Est GFR (Non-Af Amer) > 60 POC Glucose (mg/dL) 199 H Random Glucose 186 H Calcium 8.9 Phosphorus 2.9 Magnesium 2.3 Total Bilirubin 0.3 AST 12 L ALT 25 Alkaline Phosphatase 74 Total Protein 6.7 Albumin 3.9 Globulin 2.8 Albumin/Globulin Ratio 1.4 Arterial Blood Potassium 04/10/18 04/10/18 11:57 15:52 WBC RBC Hgb Hct MCV MCH MCHC RDW Plt Count MPV Neut % (Auto) Lymph % (Auto) Carbon % (Auto) Eos % (Auto) Baso % (Auto) Neut # (Auto) Lymph # (Auto) Carbon # (Auto) Eos # (Auto) Baso # (Auto) Neutrophils % (Manual) Lymphocytes % (Manual) Monocytes % (Manual) Platelet Estimate Hypochromasia (manual) Poikilocytosis (manual Anisocytosis (manual) Puncture Site Rr pCO2 42 pO2 78 L HCO3 35.8 H ABG pH 7.56 H ABG Total CO2 38.9 H ABG O2 Saturation 97.5 ABG Base Excess 13.9 H Donta Test Po ABG Potassium 3.1 L A-a O2 Difference 226.0 Respiratory Index 2.9 Sodium 140.0 Chloride 101.0 Glucose 168 H Lactate 1.0 Vent Mode Cpap Mechanical Rate FiO2 50.0 Tidal Volume PEEP 5 Pressure Support 8 Potassium Carbon Dioxide Anion Gap BUN Creatinine Est GFR ( Amer) Est GFR (Non-Af Amer) POC Glucose (mg/dL) 201 H Random Glucose Calcium Phosphorus Magnesium Total Bilirubin AST ALT Alkaline Phosphatase Total Protein Albumin Globulin Albumin/Globulin Ratio Arterial Blood Potassium 3.1 L Assessment & Plan (1) Acute respiratory failure with hypercapnia Assessment and Plan: wean as tolerated Continue nebulizer treatment and IV antibiotics Followup ABG Continue Lasix Status: Acute Priority: High (2) COPD (chronic obstructive pulmonary disease) Status: Acute Priority: High (3) FESTUS (obstructive sleep apnea) Status: Acute Priority: High
--- NOTE | 2018-04-10 18:31 | CP.PCM.PN ---
Subjective - Date & Time of Evaluation Date of Evaluation: 04/10/18 Objective - Vital Signs/Intake and Output Vital Signs (last 24 hours): Temp Pulse Resp BP Pulse Ox 98.0 F 76 14 176/83 H 69 L 04/10/18 08:00 04/10/18 15:15 04/10/18 15:15 04/10/18 15:15 04/10/18 15:15 Intake and Output: 04/10/18 04/10/18 06:59 18:59 Intake Total 320.2 20.4 Output Total 400 Balance -79.8 20.4 - Medications Medications: Current Medications Albuterol/Ipratropium (Duoneb 3 Mg/0.5 Mg (3 Ml) Ud) 3 ml INH RQ4 [facility] Last Admin: 04/10/18 16:13 Dose: 3 ml Carbidopa/Levodopa (Sinemet) 1 tab PO TID [facility] Last Admin: 04/10/18 17:57 Dose: 1 tab Carvedilol (Coreg) 25 mg PO DAILY [facility] Last Admin: 04/10/18 10:56 Dose: 25 mg Enoxaparin Sodium (Lovenox) 120 mg SC DAILY [facility] Last Admin: 04/10/18 10:55 Dose: 120 mg Furosemide (Lasix) 40 mg PO DAILY [facility] Last Admin: 04/10/18 10:55 Dose: 40 mg Gabapentin (Neurontin) 300 mg PO BID [facility] Last Admin: 04/10/18 18:05 Dose: 300 mg Insulin Detemir (Levemir) 40 unit SC [facility] Last Admin: 04/09/18 22:52 Dose: Not Given Levothyroxine Sodium (Synthroid) 150 mcg PO DAILY@0630 [facility] Last Admin: 04/10/18 06:09 Dose: 150 mcg Methylprednisolone (Solu-Medrol) 80 mg IVP Q8 [facility] Last Admin: 04/10/18 14:57 Dose: 80 mg Montelukast Sodium (Singulair) 10 mg PO HS [facility] Last Admin: 04/09/18 22:52 Dose: 10 mg Pantoprazole Sodium (Protonix Inj) 40 mg IVP DAILY [facility] Last Admin: 04/10/18 10:00 Dose: 40 mg Potassium Phos/Sodium Phos (Neutra-Phos) 1 pkt PO BID [facility] Stop: 04/11/18 10:01 Last Admin: 04/10/18 17:55 Dose: 1 pkt Vitamin A (Vitamin A & D Oint Ud Foilpak) 1 ea TOP Q6 [facility] Last Admin: 04/10/18 17:55 Dose: 1 ea - Labs Labs: 04/10/18 06:00 04/10/18 06:00 PT 10.7 SECONDS (9.7-12.2) 04/08/18 21:38 INR 1.0 04/08/18 21:38 APTT 38 SECONDS (21-34) H 04/08/18 21:38
[2018-04-10] MEDS ORDERED: Glucagon Recombinant 1 mg Inj IM PRN (19:16)
[2018-04-10] MEDS ORDERED: Dextrose 50% SYRINGE Inj (50 ml) IV PRN (19:16)
[2018-04-10] MEDS: Insulin Detemir 100 units/ml Vial (Levemir) SC SCH (22:53)
[2018-04-11] MEDS: Albuterol-Ipratrop 3 mg / 0.5 (3 ml) UD INH SCH ×6 (00:19→19:45)
[2018-04-11] MEDS: Vitamins A & D Oint UD Foilpak TOP SCH ×5 (01:12→23:58)
[2018-04-11 05:44] LABS: ABG ALLEN TEST POS; ARTERIAL BLOOD GAS O2 SAT 97.2 % (95-98); ARTERIAL BLOOD GAS PCO2 47 mm/Hg (35-45); ARTERIAL BLOOD GAS PH 7.47 (7.35-7.45); ARTERIAL BLOOD GAS PO2 75 mm/Hg (80-100); ARTERIAL BLOOD GAS TCO2 35.6 mmol/L (22-28)
[2018-04-11] MEDS: Levothyroxine 150 MCG TAB PO SCH (05:50)
[2018-04-11 06:56] LABS: BASO % 0.1 % (0.0-2.0); HEMOGLOBIN 11.1 g/dL (11.0-16.0); LYMPH # 0.6 K/uL (1.0-4.3); LYMPH % 8.6 % (20.0-40.0); MEAN CELL VOLUME 86.9 fL (81.0-99.0); MEAN CORPUSCULAR HEMOGLOBIN 28.5 pg (27.0-31.0); MEAN CORPUSCULAR HGB CONC 32.7 g/dL (33.0-37.0); MEAN PLATELET VOLUME 9.3 fL (7.2-11.7); MONO # 0.1 K/uL (0.0-0.8); MONO % 2.1 % (0.0-10.0); NEUT # 6.4 K/uL (1.8-7.0); NEUT % 89.2 % (50.0-75.0); NRBC % 0.1 % (0.0-2.0); PLATELET COUNT 268 K/uL (130-400); RBC 3.92 Mil/uL (3.80-5.20); RED CELL DISTRIBUTION WIDTH 16.1 % (11.5-14.5); WHITE BLOOD COUNT 7.2 K/uL (4.8-10.8)
[2018-04-11 07:00] LABS: ALB/GLOB RATIO 1.4 (1.0-2.1); ALBUMIN 3.9 g/dL (3.5-5.0); ALT/SGPT 21 U/L (9-52); AST/SGOT 16 U/L (14-36); BLOOD UREA NITROGEN 35 mg/dL (7-17); CALCIUM 8.7 mg/dl (8.6-10.4); GFR NON-AFRICAN AMERICAN > 60
--- NOTE | 2018-04-11 07:37 | CP.CCUPN ---
<Yecenia Erazo P - Last Filed: 04/11/18 17:09> CCU Subjective - Physician Review Subjective (Free Text): PGY-1 critical care progress note. Patient seen and evaluated at bedside. On bipap now. States she feels much better. Only complains of hunger. Denies chest pain, SOB, nausea, vomiting, abdominal pain, leg pain. CCU Objective - Vital Signs / Intake & Output Vital Signs (Last 4 hours): Vital Signs Temp Pulse Resp BP Pulse Ox 04/11/18 07:16 70 17 163/81 H 100 04/11/18 06:20 78 15 163/91 H 100 04/11/18 05:49 78 04/11/18 05:15 73 20 149/74 100 04/11/18 04:00 98.2 F Intake and Output (Last 8hrs): Intake & Output 04/10/18 04/11/18 04/11/18 22:59 06:59 14:59 Intake Total 320 20 Output Total 400 300 Balance -80 -280 Weight 281 lb 15.539 oz Intake: Intake, IV Amount 270 20 Right Forearm 270 20 Oral 50 Output: Urine 400 300 Urine, Voided 400 300 Other: # Voids Urine, Voided 0 1 0 # Bowel Movements 0 - Physical Exam Head: Positive for: Atraumatic, Normocephalic Pupils: Negative for: Non-Reactive Extroacular Muscles: Positive for: EOMI Conjunctiva: Positive for: Normal. Negative for: Injected, Icteric Mouth: Positive for: Dry Pharnyx: Positive for: Normal Nose (External): Negative for: Abrasion Nose (Internal): Positive for: Normal Inspection Neck: Negative for: JVD, Lymphadenopathy Respiratory/Chest: Positive for: Decreased Breath Sounds, Other (on bipap ) Cardiovascular: Positive for: Regular Rate and Rhythm, Normal S1, S2. Negative for: Murmurs, Irregular Rhythm, Tachycardic, Bradycardic Abdomen: Positive for: Normal Bowel Sounds. Negative for: Tenderness Lower Extremity: Negative for: Edema Neurological: Positive for: CN II-XII Intact. Negative for: GCS=15 Skin: Positive for: Warm, Dry Psychiatric: Positive for: Alert, Oriented x 3 - Medications Active Medications: Active Medications Generic Name Dose Route Start Last Admin Trade Name Freq PRN Reason Stop Dose Admin Albuterol/Ipratropium 3 ml 08/22/18 04:00 04/11/18 03:06 Duoneb 3 Mg/0.5 Mg (3 Ml) Ud INH 3 ml RQ4 TIMOTEO Administration Carbidopa/Levodopa 1 tab 04/09/18 10:00 04/10/18 17:57 Sinemet PO 1 tab TID TIMOTEO Administration Carvedilol 25 mg 04/11/18 10:00 Coreg PO BID TIMOTEO Dextrose 0 ml 04/10/18 19:16 Dextrose 50% Inj IV STAT PRN Hypoglycemia Protocol Protocol Dextrose 0 gm 04/10/18 19:16 Glutose 15 PO ONCE PRN Hypoglycemia Protocol Protocol Enoxaparin Sodium 120 mg 04/09/18 10:00 04/10/18 10:55 Lovenox SC 120 mg DAILY TIMOTEO Administration Escitalopram Oxalate 10 mg 04/11/18 10:00 Lexapro PO DAILY TIMOTEO Furosemide 40 mg 04/09/18 10:00 04/10/18 10:55 Lasix PO 40 mg DAILY TIMOTEO Administration Gabapentin 300 mg 04/09/18 10:00 04/10/18 18:05 Neurontin PO 300 mg BID TIMOTEO Administration Glucagon 0 mg 04/10/18 19:16 Glucagen Diagnostic Kit IM STAT PRN Hypoglycemia Protocol Protocol Dextrose 1,000 mls @ 0 mls/hr 04/10/18 19:16 Dextrose 5% In Water 1000 Ml IV .Q0M PRN Hypoglycemia Protocol Protocol Per Protocol Insulin Detemir 40 unit 04/09/18 22:00 04/10/18 22:53 Levemir SC Not Given HS TIMOTEO Levothyroxine Sodium 150 mcg 04/09/18 10:15 04/11/18 05:50 Synthroid PO Not Given DAILY@0630 TIMOTEO Methylprednisolone 80 mg 04/09/18 06:00 04/11/18 05:49 Solu-Medrol IVP 80 mg Q8 TIMOTEO Administration Montelukast Sodium 10 mg 04/09/18 22:00 04/10/18 22:53 Singulair PO Not Given HS TIMOTEO Pantoprazole Sodium 40 mg 04/09/18 10:00 04/10/18 10:00 Protonix Inj IVP 40 mg DAILY TIMOTEO Administration Potassium Phos/Sodium Phos 1 pkt 04/09/18 10:00 04/10/18 17:55 Neutra-Phos PO 08/24/18 10:01 1 pkt BID TIMOTEO Administration Vitamin A 1 ea 04/09/18 12:00 04/11/18 05:50 Vitamin A & D Oint Ud Foilpak TOP 1 ea Q6 TIMOTEO Administration - Patient Studies Lab Studies: Microbiology Studies 04/08/18 21:00 Blood Culture - Preliminary Blood-Venous NO GROWTH AFTER 48 HOURS 04/08/18 21:15 Blood Culture - Preliminary Blood-Venous NO GROWTH AFTER 48 HOURS 04/09/18 09:36 MRSA Culture (Admit) - Final Nose MRSA NOT DETECTED Lab Studies 04/11/18 04/11/18 04/11/18 Range/Units 06:40 06:37 05:45 WBC 7.2 (4.8-10.8) K/uL RBC 3.92 (3.80-5.20) Mil/uL Hgb 11.1 (11.0-16.0) g/dL Hct 34.1 (34.0-47.0) % MCV 86.9 (81.0-99.0) fL MCH 28.5 (27.0-31.0) pg MCHC 32.7 L (33.0-37.0) g/dL RDW 16.1 H (11.5-14.5) % Plt Count 268 (130-400) K/uL MPV 9.3 (7.2-11.7) fL Neut % (Auto) 89.2 H (50.0-75.0) % Lymph % (Auto) 8.6 L (20.0-40.0) % Mckenzie % (Auto) 2.1 (0.0-10.0) % Eos % (Auto) 0.0 (0.0-4.0) % Baso % (Auto) 0.1 (0.0-2.0) % Neut # (Auto) 6.4 (1.8-7.0) K/uL Lymph # (Auto) 0.6 L (1.0-4.3) K/uL Mckenzie # (Auto) 0.1 (0.0-0.8) K/uL Eos # (Auto) 0.0 (0.0-0.7) K/uL Baso # (Auto) 0.0 (0.0-0.2) K/uL Neutrophils % (Manual) (50-75) % Lymphocytes % (Manual) (20-40) % Monocytes % (Manual) (0-10) % Platelet Estimate (NORMAL) Hypochromasia (manual) Poikilocytosis (manual Anisocytosis (manual) Puncture Site pCO2 (35-45) mm/Hg pO2 (80-100) mm/Hg HCO3 (21-28) mmol/L ABG pH (7.35-7.45) ABG Total CO2 (22-28) mmol/L ABG O2 Saturation (95-98) % ABG Base Excess (-2.0-3.0) mmol/L [place] Test ABG Potassium (3.6-5.2) mmol/L A-a O2 Difference mm/Hg Respiratory Index Sodium 141 (132-148) mmol/l Chloride 97 L (98-107) mmol/L Glucose (65-105) mg/dl Lactate (0.7-2.1) mmol/L Vent Mode FiO2 % PEEP Pressure Support Inspiratory BiPAP Expiratory BiPAP Potassium 4.2 (3.6-5.2) mmol/L Carbon Dioxide 33 H (22-30) mmol/L Anion Gap 15 (10-20) BUN 35 H (7-17) mg/dL Creatinine 0.7 (0.7-1.2) mg/dL Est GFR ( Amer) > 60 Est GFR (Non-Af Amer) > 60 POC Glucose (mg/dL) 138 H (65-110) mg/dL Random Glucose 176 H (65-105) mg/dL Calcium 8.7 (8.6-10.4) mg/dl Phosphorus 3.9 (2.5-4.5) mg/dL Magnesium 2.3 (1.6-2.3) mg/dL Total Bilirubin 0.5 (0.2-1.3) mg/dL AST 16 (14-36) U/L ALT 21 (9-52) U/L Alkaline Phosphatase 64 (38-126) U/L Total Protein 6.7 (6.3-8.3) g/dL Albumin 3.9 (3.5-5.0) g/dL Globulin 2.8 (2.2-3.9) gm/dL Albumin/Globulin Ratio 1.4 (1.0-2.1) Arterial Blood Potassium (3.6-5.2) mmol/L 08/04/11/18 04/10/18 Range/Units 05:11 00:18 17:34 WBC (4.8-10.8) K/uL RBC (3.80-5.20) Mil/uL Hgb (11.0-16.0) g/dL Hct (34.0-47.0) % MCV (81.0-99.0) fL MCH (27.0-31.0) pg MCHC (33.0-37.0) g/dL RDW (11.5-14.5) % Plt Count (130-400) K/uL MPV (7.2-11.7) fL Neut % (Auto) (50.0-75.0) % Lymph % (Auto) (20.0-40.0) % Mckenzie % (Auto) (0.0-10.0) % Eos % (Auto) (0.0-4.0) % Baso % (Auto) (0.0-2.0) % Neut # (Auto) (1.8-7.0) K/uL Lymph # (Auto) (1.0-4.3) K/uL Mckenzie # (Auto) (0.0-0.8) K/uL Eos # (Auto) (0.0-0.7) K/uL Baso # (Auto) (0.0-0.2) K/uL Neutrophils % (Manual) (50-75) % Lymphocytes % (Manual) (20-40) % Monocytes % (Manual) (0-10) % Platelet Estimate (NORMAL) Hypochromasia (manual) Poikilocytosis (manual Anisocytosis (manual) Puncture Site Lr pCO2 47 H (35-45) mm/Hg pO2 75 L (80-100) mm/Hg HCO3 32.0 H (21-28) mmol/L ABG pH 7.47 H (7.35-7.45) ABG Total CO2 35.6 H (22-28) mmol/L ABG O2 Saturation 97.2 (95-98) % ABG Base Excess 9.1 H (-2.0-3.0) mmol/L [place] Test Pos ABG Potassium 3.7 (3.6-5.2) mmol/L A-a O2 Difference 223.0 mm/Hg Respiratory Index 3.0 Sodium 142.0 (132-148) mmol/l Chloride 106.0 (98-107) mmol/L Glucose 174 H (65-105) mg/dl Lactate 0.7 (0.7-2.1) mmol/L Vent Mode Bipap FiO2 50.0 % PEEP Pressure Support Inspiratory BiPAP 14 Expiratory BiPAP 5 Potassium (3.6-5.2) mmol/L Carbon Dioxide (22-30) mmol/L Anion Gap (10-20) BUN (7-17) mg/dL Creatinine (0.7-1.2) mg/dL Est GFR ( Amer) Est GFR (Non-Af Amer) POC Glucose (mg/dL) 115 H 160 H (65-110) mg/dL Random Glucose (65-105) mg/dL Calcium (8.6-10.4) mg/dl Phosphorus (2.5-4.5) mg/dL Magnesium (1.6-2.3) mg/dL Total Bilirubin (0.2-1.3) mg/dL AST (14-36) U/L ALT (9-52) U/L Alkaline Phosphatase (38-126) U/L Total Protein (6.3-8.3) g/dL Albumin (3.5-5.0) g/dL Globulin (2.2-3.9) gm/dL Albumin/Globulin Ratio (1.0-2.1) Arterial Blood Potassium 3.7 (3.6-5.2) mmol/L 04/10/18 04/10/18 04/10/18 Range/Units 15:52 11:57 06:00 WBC (4.8-10.8) K/uL RBC (3.80-5.20) Mil/uL Hgb (11.0-16.0) g/dL Hct (34.0-47.0) % MCV (81.0-99.0) fL MCH (27.0-31.0) pg MCHC (33.0-37.0) g/dL RDW (11.5-14.5) % Plt Count (130-400) K/uL MPV (7.2-11.7) fL Neut % (Auto) (50.0-75.0) % Lymph % (Auto) (20.0-40.0) % Mckenzie % (Auto) (0.0-10.0) % Eos % (Auto) (0.0-4.0) % Baso % (Auto) (0.0-2.0) % Neut # (Auto) (1.8-7.0) K/uL Lymph # (Auto) (1.0-4.3) K/uL Mckenzie # (Auto) (0.0-0.8) K/uL Eos # (Auto) (0.0-0.7) K/uL Baso # (Auto) (0.0-0.2) K/uL Neutrophils % (Manual) 91 H (50-75) % Lymphocytes % (Manual) 7 L (20-40) % Monocytes % (Manual) 2 (0-10) % Platelet Estimate Normal (NORMAL) Hypochromasia (manual) Slight Poikilocytosis (manual Slight Anisocytosis (manual) Slight Puncture Site Rr pCO2 42 (35-45) mm/Hg pO2 78 L (80-100) mm/Hg HCO3 35.8 H (21-28) mmol/L ABG pH 7.56 H (7.35-7.45) ABG Total CO2 38.9 H (22-28) mmol/L ABG O2 Saturation 97.5 (95-98) % ABG Base Excess 13.9 H (-2.0-3.0) mmol/L [place] Test Po ABG Potassium 3.1 L (3.6-5.2) mmol/L A-a O2 Difference 226.0 mm/Hg Respiratory Index 2.9 Sodium 140.0 (132-148) mmol/l Chloride 101.0 (98-107) mmol/L Glucose 168 H (65-105) mg/dl Lactate 1.0 (0.7-2.1) mmol/L Vent Mode Cpap FiO2 50.0 % PEEP 5 Pressure Support 8 Inspiratory BiPAP Expiratory BiPAP Potassium (3.6-5.2) mmol/L Carbon Dioxide (22-30) mmol/L Anion Gap (10-20) BUN (7-17) mg/dL Creatinine (0.7-1.2) mg/dL Est GFR ( Amer) Est GFR (Non-Af Amer) POC Glucose (mg/dL) 201 H (65-110) mg/dL Random Glucose (65-105) mg/dL Calcium (8.6-10.4) mg/dl Phosphorus (2.5-4.5) mg/dL Magnesium (1.6-2.3) mg/dL Total Bilirubin (0.2-1.3) mg/dL AST (14-36) U/L ALT (9-52) U/L Alkaline Phosphatase (38-126) U/L Total Protein (6.3-8.3) g/dL Albumin (3.5-5.0) g/dL Globulin (2.2-3.9) gm/dL Albumin/Globulin Ratio (1.0-2.1) Arterial Blood Potassium 3.1 L (3.6-5.2) mmol/L Laboratory Results - last 24 hr 04/10/18 04/10/18 04/10/18 06:00 11:57 15:52 WBC RBC Hgb Hct MCV MCH MCHC RDW Plt Count MPV Neut % (Auto) Lymph % (Auto) Mckenzie % (Auto) Eos % (Auto) Baso % (Auto) Neut # (Auto) Lymph # (Auto) Mckenzie # (Auto) Eos # (Auto) Baso # (Auto) Neutrophils % (Manual) 91 H Lymphocytes % (Manual) 7 L Monocytes % (Manual) 2 Platelet Estimate Normal Hypochromasia (manual) Slight Poikilocytosis (manual Slight Anisocytosis (manual) Slight Puncture Site Rr pCO2 42 pO2 78 L HCO3 35.8 H ABG pH 7.56 H ABG Total CO2 38.9 H ABG O2 Saturation 97.5 ABG Base Excess 13.9 H [place] Test Po ABG Potassium 3.1 L A-a O2 Difference 226.0 Respiratory Index 2.9 Sodium 140.0 Chloride 101.0 Glucose 168 H Lactate 1.0 Vent Mode Cpap FiO2 50.0 PEEP 5 Pressure Support 8 Inspiratory BiPAP Expiratory BiPAP Potassium Carbon Dioxide Anion Gap BUN Creatinine Est GFR ( Amer) Est GFR (Non-Af Amer) POC Glucose (mg/dL) 201 H Random Glucose Calcium Phosphorus Magnesium Total Bilirubin AST ALT Alkaline Phosphatase Total Protein Albumin Globulin Albumin/Globulin Ratio Arterial Blood Potassium 3.1 L 04/10/18 04/11/18 04/11/18 17:34 00:18 05:11 WBC RBC Hgb Hct MCV MCH MCHC RDW Plt Count MPV Neut % (Auto) Lymph % (Auto) Mckenzie % (Auto) Eos % (Auto) Baso % (Auto) Neut # (Auto) Lymph # (Auto) Mckenzie # (Auto) Eos # (Auto) Baso # (Auto) Neutrophils % (Manual) Lymphocytes % (Manual) Monocytes % (Manual) Platelet Estimate Hypochromasia (manual) Poikilocytosis (manual Anisocytosis (manual) Puncture Site Lr pCO2 47 H pO2 75 L HCO3 32.0 H ABG pH 7.47 H ABG Total CO2 35.6 H ABG O2 Saturation 97.2 ABG Base Excess 9.1 H [place] Test Pos ABG Potassium 3.7 A-a O2 Difference 223.0 Respiratory Index 3.0 Sodium 142.0 Chloride 106.0 Glucose 174 H Lactate 0.7 Vent Mode Bipap FiO2 50.0 PEEP Pressure Support Inspiratory BiPAP 14 Expiratory BiPAP 5 Potassium Carbon Dioxide Anion Gap BUN Creatinine Est GFR ( Amer) Est GFR (Non-Af Amer) POC Glucose (mg/dL) 160 H 115 H Random Glucose Calcium Phosphorus Magnesium Total Bilirubin AST ALT Alkaline Phosphatase Total Protein Albumin Globulin Albumin/Globulin Ratio Arterial Blood Potassium 3.7 04/11/18 04/11/18 04/11/18 05:45 06:37 06:40 WBC 7.2 RBC 3.92 Hgb 11.1 Hct 34.1 MCV 86.9 MCH 28.5 MCHC 32.7 L RDW 16.1 H Plt Count 268 MPV 9.3 Neut % (Auto) 89.2 H Lymph % (Auto) 8.6 L Mckenzie % (Auto) 2.1 Eos % (Auto) 0.0 Baso % (Auto) 0.1 Neut # (Auto) 6.4 Lymph # (Auto) 0.6 L Mckenzie # (Auto) 0.1 Eos # (Auto) 0.0 Baso # (Auto) 0.0 Neutrophils % (Manual) Lymphocytes % (Manual) Monocytes % (Manual) Platelet Estimate Hypochromasia (manual) Poikilocytosis (manual Anisocytosis (manual) Puncture Site pCO2 pO2 HCO3 ABG pH ABG Total CO2 ABG O2 Saturation ABG Base Excess [place] Test ABG Potassium A-a O2 Difference Respiratory Index Sodium 141 Chloride 97 L Glucose Lactate Vent Mode FiO2 PEEP Pressure Support Inspiratory BiPAP Expiratory BiPAP Potassium 4.2 Carbon Dioxide 33 H Anion Gap 15 BUN 35 H Creatinine 0.7 Est GFR ( Amer) > 60 Est GFR (Non-Af Amer) > 60 POC Glucose (mg/dL) 138 H Random Glucose 176 H Calcium 8.7 Phosphorus 3.9 Magnesium 2.3 Total Bilirubin 0.5 AST 16 ALT 21 Alkaline Phosphatase 64 Total Protein 6.7 Albumin 3.9 Globulin 2.8 Albumin/Globulin Ratio 1.4 Arterial Blood Potassium Fingerstick Blood Sugar Results: 138 Review of Systems - Review of Systems All systems: reviewed and no additional remarkable complaints except (as per HPI ) Critical Care Progress Note - Prophylaxis GI Prophylaxis GI: PPI - Prophylaxis DVT Prophylaxis DVT: Heparin SQ Assessment/Plan - Assessment and Plan (Free Text) Plan: 72 yo F with PMHx of COPD, obstructive sleep apnea, HTN, DM, anemia, bipolar disorder admitted to ICU for COPD exacerbation. Intubated 04/08 due to AMS secondary to hypercapnea, pCO2 120 on admission. Hypercapnea resolved, repeat pCO2=44. Extubated 04/10/18. SpO2 100 on bipap . Neuro: Patient awake, alert and oriented x3. OOB to chair today Carbidopa/Levodopa 1tab PO TID Gabapentin 300 mg PO BID Lexapro 10mg PO restarted Cardio: Carvedilol switched to Lopressor 25mg Q12H Lasix 40mg PO daily crestor 5mg PO HS Lisinopril 2.5mg PO BID Pulm: bipap- titrate saturation to 92-100%, Nasal cannula when not on bipap CXR 04/11: Persistent bibasilar opacities likely representing combination of atelectasis/infiltrate and bilateral effusions (see full report). Duoneb Q4 Methylprednisolone 40mg IVP Q8 Singulair 10mg PO HS GI: Heart healthy diet Renal: Cr:0.9 Neutra-Phos 1pkt PO BID Endo: Levemir 40u SC HS RISS Levothyroxine 150mcg PO daily Heme: H/H stable WBC and PLT wnl ID: WBC: downtrending afebrile PPx: Protonix, Lovenox 120 SC daily Dispo: Continue ICU management Case was reviewed and discussed with attending physician, Dr. Lynda Foster. <Reina Foster - Last Filed: 04/11/18 18:04> CCU Objective - Vital Signs / Intake & Output Vital Signs (Last 4 hours): Vital Signs Temp Pulse Resp BP Pulse Ox 04/11/18 17:21 144/65 04/11/18 17:00 83 18 98 04/11/18 16:30 75 20 144/65 100 04/11/18 16:00 98.1 F 71 22 92 L 04/11/18 15:30 73 143/70 99 04/11/18 15:00 71 17 97 04/11/18 14:30 66 20 144/68 97 Intake and Output (Last 8hrs): Intake & Output 04/11/18 04/11/18 04/11/18 06:59 14:59 22:59 Intake Total 20 250 250 Output Total 300 Balance -280 250 250 Weight 281 lb 15.539 oz Intake: Intake, IV Amount 20 Right Forearm 20 Oral 250 250 Output: Urine 300 Urine, Voided 300 Other: # Voids Urine, Voided 1 0 # Bowel Movements 0 1 - Medications Active Medications: Active Medications Generic Name Dose Route Start Last Admin Trade Name Freq PRN Reason Stop Dose Admin Albuterol/Ipratropium 3 ml 04/09/18 04:00 04/11/18 16:20 Duoneb 3 Mg/0.5 Mg (3 Ml) Ud INH 3 ml RQ4 TIMOTEO Administration Aspirin 81 mg 04/11/18 10:00 04/11/18 09:34 Aspirin Chewable PO 81 mg DAILY TIMOTEO Administration Carbidopa/Levodopa 1 tab 04/09/18 10:00 04/11/18 17:21 Sinemet PO 1 tab TID TIMOTEO Administration Dextrose 0 ml 04/10/18 19:16 Dextrose 50% Inj IV STAT PRN Hypoglycemia Protocol Protocol Dextrose 0 gm 04/10/18 19:16 Glutose 15 PO ONCE PRN Hypoglycemia Protocol Protocol Escitalopram Oxalate 10 mg 04/11/18 10:00 04/11/18 09:34 Lexapro PO 10 mg DAILY TIMOTEO Administration Gabapentin 300 mg 04/09/18 10:00 04/11/18 17:24 Neurontin PO 300 mg BID TIMOTEO Administration Glucagon 0 mg 04/10/18 19:16 Glucagen Diagnostic Kit IM STAT PRN Hypoglycemia Protocol Protocol Heparin Sodium (Porcine) 5,000 units 04/11/18 22:00 Heparin SC Q8 TIMOTEO Dextrose 1,000 mls @ 0 mls/hr 04/10/18 19:16 Dextrose 5% In Water 1000 Ml IV .Q0M PRN Hypoglycemia Protocol Protocol Per Protocol Insulin Detemir 40 unit 04/09/18 22:00 04/10/18 22:53 Levemir SC Not Given HS TIMOTEO Insulin Human Regular 0 unit 04/11/18 17:15 04/11/18 17:21 Novolin R SC 3 units ACHS TIMOTEO Administration Protocol Levothyroxine Sodium 150 mcg 04/09/18 10:15 04/11/18 05:50 Synthroid PO Not Given DAILY@0630 TIMOTEO Lisinopril 2.5 mg 04/11/18 10:00 04/11/18 09:55 Zestril PO 2.5 mg DAILY TIMOTEO Administration Methylprednisolone 40 mg 04/11/18 09:00 04/11/18 16:41 Solu-Medrol IVP 40 mg Q8H TIMOTEO Administration Metoprolol Tartrate 25 mg 04/11/18 18:00 04/11/18 17:21 Lopressor PO 25 mg BID TIMOTEO Administration Montelukast Sodium 10 mg 04/09/18 22:00 04/10/18 22:53 Singulair PO Not Given HS TIMOTEO Pantoprazole Sodium 40 mg 04/11/18 10:00 04/11/18 09:34 Protonix Ec Tab PO 40 mg DAILY TIMOTEO Administration Rosuvastatin Calcium 2.5 mg 04/11/18 22:00 Crestor PO HS TIMOTEO Vitamin A 1 ea 04/09/18 12:00 04/11/18 17:22 Vitamin A & D Oint Ud Foilpak TOP 1 ea Q6 TIMOTEO Administration - Patient Studies Lab Studies: Microbiology Studies 04/08/18 21:00 Blood Culture - Preliminary Blood-Venous NO GROWTH AFTER 48 HOURS 04/08/18 21:15 Blood Culture - Preliminary Blood-Venous NO GROWTH AFTER 48 HOURS Lab Studies 04/11/18 04/11/18 04/11/18 Range/Units 16:25 11:35 06:40 WBC 7.2 (4.8-10.8) K/uL RBC 3.92 (3.80-5.20) Mil/uL Hgb 11.1 (11.0-16.0) g/dL Hct 34.1 (34.0-47.0) % MCV 86.9 (81.0-99.0) fL MCH 28.5 (27.0-31.0) pg MCHC 32.7 L (33.0-37.0) g/dL RDW 16.1 H (11.5-14.5) % Plt Count 268 (130-400) K/uL MPV 9.3 (7.2-11.7) fL Neut % (Auto) 89.2 H (50.0-75.0) % Lymph % (Auto) 8.6 L (20.0-40.0) % Mckenzie % (Auto) 2.1 (0.0-10.0) % Eos % (Auto) 0.0 (0.0-4.0) % Baso % (Auto) 0.1 (0.0-2.0) % Neut # (Auto) 6.4 (1.8-7.0) K/uL Lymph # (Auto) 0.6 L (1.0-4.3) K/uL Mckenzie # (Auto) 0.1 (0.0-0.8) K/uL Eos # (Auto) 0.0 (0.0-0.7) K/uL Baso # (Auto) 0.0 (0.0-0.2) K/uL Neutrophils % (Manual) 90 H (50-75) % Lymphocytes % (Manual) 7 L (20-40) % Monocytes % (Manual) 2 (0-10) % Basophils % (Manual) 1 (0-2) % Platelet Estimate Normal (NORMAL) Poikilocytosis (manual Slight Anisocytosis (manual) Slight Ovalocytes Slight Puncture Site pCO2 (35-45) mm/Hg pO2 (80-100) mm/Hg HCO3 (21-28) mmol/L ABG pH (7.35-7.45) ABG Total CO2 (22-28) mmol/L ABG O2 Saturation (95-98) % ABG Base Excess (-2.0-3.0) mmol/L [place] Test ABG Potassium (3.6-5.2) mmol/L A-a O2 Difference mm/Hg Respiratory Index Sodium (132-148) mmol/l Chloride (98-107) mmol/L Glucose (65-105) mg/dl Lactate (0.7-2.1) mmol/L Vent Mode FiO2 % Inspiratory BiPAP Expiratory BiPAP Potassium (3.6-5.2) mmol/L Carbon Dioxide (22-30) mmol/L Anion Gap (10-20) BUN (7-17) mg/dL Creatinine (0.7-1.2) mg/dL Est GFR ( Amer) Est GFR (Non-Af Amer) POC Glucose (mg/dL) 215 H 178 H (65-110) mg/dL Random Glucose (65-105) mg/dL Calcium (8.6-10.4) mg/dl Phosphorus (2.5-4.5) mg/dL Magnesium (1.6-2.3) mg/dL Total Bilirubin (0.2-1.3) mg/dL AST (14-36) U/L ALT (9-52) U/L Alkaline Phosphatase (38-126) U/L Total Protein (6.3-8.3) g/dL Albumin (3.5-5.0) g/dL Globulin (2.2-3.9) gm/dL Albumin/Globulin Ratio (1.0-2.1) Arterial Blood Potassium (3.6-5.2) mmol/L 04/11/18 04/11/18 04/11/18 Range/Units 06:37 05:45 05:11 WBC (4.8-10.8) K/uL RBC (3.80-5.20) Mil/uL Hgb (11.0-16.0) g/dL Hct (34.0-47.0) % MCV (81.0-99.0) fL MCH (27.0-31.0) pg MCHC (33.0-37.0) g/dL RDW (11.5-14.5) % Plt Count (130-400) K/uL MPV (7.2-11.7) fL Neut % (Auto) (50.0-75.0) % Lymph % (Auto) (20.0-40.0) % Mckenzie % (Auto) (0.0-10.0) % Eos % (Auto) (0.0-4.0) % Baso % (Auto) (0.0-2.0) % Neut # (Auto) (1.8-7.0) K/uL Lymph # (Auto) (1.0-4.3) K/uL Mckenzie # (Auto) (0.0-0.8) K/uL Eos # (Auto) (0.0-0.7) K/uL Baso # (Auto) (0.0-0.2) K/uL Neutrophils % (Manual) (50-75) % Lymphocytes % (Manual) (20-40) % Monocytes % (Manual) (0-10) % Basophils % (Manual) (0-2) % Platelet Estimate (NORMAL) Poikilocytosis (manual Anisocytosis (manual) Ovalocytes Puncture Site Lr pCO2 47 H (35-45) mm/Hg pO2 75 L (80-100) mm/Hg HCO3 32.0 H (21-28) mmol/L ABG pH 7.47 H (7.35-7.45) ABG Total CO2 35.6 H (22-28) mmol/L ABG O2 Saturation 97.2 (95-98) % ABG Base Excess 9.1 H (-2.0-3.0) mmol/L [place] Test Pos ABG Potassium 3.7 (3.6-5.2) mmol/L A-a O2 Difference 223.0 mm/Hg Respiratory Index 3.0 Sodium 141 142.0 (132-148) mmol/l Chloride 97 L 106.0 (98-107) mmol/L Glucose 174 H (65-105) mg/dl Lactate 0.7 (0.7-2.1) mmol/L Vent Mode Bipap FiO2 50.0 % Inspiratory BiPAP 14 Expiratory BiPAP 5 Potassium 4.2 (3.6-5.2) mmol/L Carbon Dioxide 33 H (22-30) mmol/L Anion Gap 15 (10-20) BUN 35 H (7-17) mg/dL Creatinine 0.7 (0.7-1.2) mg/dL Est GFR ( Amer) > 60 Est GFR (Non-Af Amer) > 60 POC Glucose (mg/dL) 138 H (65-110) mg/dL Random Glucose 176 H (65-105) mg/dL Calcium 8.7 (8.6-10.4) mg/dl Phosphorus 3.9 (2.5-4.5) mg/dL Magnesium 2.3 (1.6-2.3) mg/dL Total Bilirubin 0.5 (0.2-1.3) mg/dL AST 16 (14-36) U/L ALT 21 (9-52) U/L Alkaline Phosphatase 64 (38-126) U/L Total Protein 6.7 (6.3-8.3) g/dL Albumin 3.9 (3.5-5.0) g/dL Globulin 2.8 (2.2-3.9) gm/dL Albumin/Globulin Ratio 1.4 (1.0-2.1) Arterial Blood Potassium 3.7 (3.6-5.2) mmol/L 04/11/18 Range/Units 00:18 WBC (4.8-10.8) K/uL RBC (3.80-5.20) Mil/uL Hgb (11.0-16.0) g/dL Hct (34.0-47.0) % MCV (81.0-99.0) fL MCH (27.0-31.0) pg MCHC (33.0-37.0) g/dL RDW (11.5-14.5) % Plt Count (130-400) K/uL MPV (7.2-11.7) fL Neut % (Auto) (50.0-75.0) % Lymph % (Auto) (20.0-40.0) % Mckenzie % (Auto) (0.0-10.0) % Eos % (Auto) (0.0-4.0) % Baso % (Auto) (0.0-2.0) % Neut # (Auto) (1.8-7.0) K/uL Lymph # (Auto) (1.0-4.3) K/uL Mckenzie # (Auto) (0.0-0.8) K/uL Eos # (Auto) (0.0-0.7) K/uL Baso # (Auto) (0.0-0.2) K/uL Neutrophils % (Manual) (50-75) % Lymphocytes % (Manual) (20-40) % Monocytes % (Manual) (0-10) % Basophils % (Manual) (0-2) % Platelet Estimate (NORMAL) Poikilocytosis (manual Anisocytosis (manual) Ovalocytes Puncture Site pCO2 (35-45) mm/Hg pO2 (80-100) mm/Hg HCO3 (21-28) mmol/L ABG pH (7.35-7.45) ABG Total CO2 (22-28) mmol/L ABG O2 Saturation (95-98) % ABG Base Excess (-2.0-3.0) mmol/L [place] Test ABG Potassium (3.6-5.2) mmol/L A-a O2 Difference mm/Hg Respiratory Index Sodium (132-148) mmol/l Chloride (98-107) mmol/L Glucose (65-105) mg/dl Lactate (0.7-2.1) mmol/L Vent Mode FiO2 % Inspiratory BiPAP Expiratory BiPAP Potassium (3.6-5.2) mmol/L Carbon Dioxide (22-30) mmol/L Anion Gap (10-20) BUN (7-17) mg/dL Creatinine (0.7-1.2) mg/dL Est GFR ( Amer) Est GFR (Non-Af Amer) POC Glucose (mg/dL) 115 H (65-110) mg/dL Random Glucose (65-105) mg/dL Calcium (8.6-10.4) mg/dl Phosphorus (2.5-4.5) mg/dL Magnesium (1.6-2.3) mg/dL Total Bilirubin (0.2-1.3) mg/dL AST (14-36) U/L ALT (9-52) U/L Alkaline Phosphatase (38-126) U/L Total Protein (6.3-8.3) g/dL Albumin (3.5-5.0) g/dL Globulin (2.2-3.9) gm/dL Albumin/Globulin Ratio (1.0-2.1) Arterial Blood Potassium (3.6-5.2) mmol/L Laboratory Results - last 24 hr 04/11/18 04/11/18 04/11/18 00:18 05:11 05:45 WBC RBC Hgb Hct MCV MCH MCHC RDW Plt Count MPV Neut % (Auto) Lymph % (Auto) Mckenzie % (Auto) Eos % (Auto) Baso % (Auto) Neut # (Auto) Lymph # (Auto) Mckenzie # (Auto) Eos # (Auto) Baso # (Auto) Neutrophils % (Manual) Lymphocytes % (Manual) Monocytes % (Manual) Basophils % (Manual) Platelet Estimate Poikilocytosis (manual Anisocytosis (manual) Ovalocytes Puncture Site Lr pCO2 47 H pO2 75 L HCO3 32.0 H ABG pH 7.47 H ABG Total CO2 35.6 H ABG O2 Saturation 97.2 ABG Base Excess 9.1 H [place] Test Pos ABG Potassium 3.7 A-a O2 Difference 223.0 Respiratory Index 3.0 Sodium 142.0 Chloride 106.0 Glucose 174 H Lactate 0.7 Vent Mode Bipap FiO2 50.0 Inspiratory BiPAP 14 Expiratory BiPAP 5 Potassium Carbon Dioxide Anion Gap BUN Creatinine Est GFR ( Amer) Est GFR (Non-Af Amer) POC Glucose (mg/dL) 115 H 138 H Random Glucose Calcium Phosphorus Magnesium Total Bilirubin AST ALT Alkaline Phosphatase Total Protein Albumin Globulin Albumin/Globulin Ratio Arterial Blood Potassium 3.7 04/11/18 04/11/18 04/11/18 06:37 06:40 11:35 WBC 7.2 RBC 3.92 Hgb 11.1 Hct 34.1 MCV 86.9 MCH 28.5 MCHC 32.7 L RDW 16.1 H Plt Count 268 MPV 9.3 Neut % (Auto) 89.2 H Lymph % (Auto) 8.6 L Mckenzie % (Auto) 2.1 Eos % (Auto) 0.0 Baso % (Auto) 0.1 Neut # (Auto) 6.4 Lymph # (Auto) 0.6 L Mckenzie # (Auto) 0.1 Eos # (Auto) 0.0 Baso # (Auto) 0.0 Neutrophils % (Manual) 90 H Lymphocytes % (Manual) 7 L Monocytes % (Manual) 2 Basophils % (Manual) 1 Platelet Estimate Normal Poikilocytosis (manual Slight Anisocytosis (manual) Slight Ovalocytes Slight Puncture Site pCO2 pO2 HCO3 ABG pH ABG Total CO2 ABG O2 Saturation ABG Base Excess Donta Test ABG Potassium A-a O2 Difference Respiratory Index Sodium 141 Chloride 97 L Glucose Lactate Vent Mode FiO2 Inspiratory BiPAP Expiratory BiPAP Potassium 4.2 Carbon Dioxide 33 H Anion Gap 15 BUN 35 H Creatinine 0.7 Est GFR ( Amer) > 60 Est GFR (Non-Af Amer) > 60 POC Glucose (mg/dL) 178 H Random Glucose 176 H Calcium 8.7 Phosphorus 3.9 Magnesium 2.3 Total Bilirubin 0.5 AST 16 ALT 21 Alkaline Phosphatase 64 Total Protein 6.7 Albumin 3.9 Globulin 2.8 Albumin/Globulin Ratio 1.4 Arterial Blood Potassium 04/11/18 16:25 WBC RBC Hgb Hct MCV MCH MCHC RDW Plt Count MPV Neut % (Auto) Lymph % (Auto) Mckenzie % (Auto) Eos % (Auto) Baso % (Auto) Neut # (Auto) Lymph # (Auto) Mckenzie # (Auto) Eos # (Auto) Baso # (Auto) Neutrophils % (Manual) Lymphocytes % (Manual) Monocytes % (Manual) Basophils % (Manual) Platelet Estimate Poikilocytosis (manual Anisocytosis (manual) Ovalocytes Puncture Site pCO2 pO2 HCO3 ABG pH ABG Total CO2 ABG O2 Saturation ABG Base Excess Donta Test ABG Potassium A-a O2 Difference Respiratory Index Sodium Chloride Glucose Lactate Vent Mode FiO2 Inspiratory BiPAP Expiratory BiPAP Potassium Carbon Dioxide Anion Gap BUN Creatinine Est GFR ( Amer) Est GFR (Non-Af Amer) POC Glucose (mg/dL) 215 H Random Glucose Calcium Phosphorus Magnesium Total Bilirubin AST ALT Alkaline Phosphatase Total Protein Albumin Globulin Albumin/Globulin Ratio Arterial Blood Potassium Critical Care Progress Note - Nutrition Nutrition: Nutrition Category Date Time Status Heart Healthy Diet [DIET] Diets 04/11/18 Lunch Active Assessment/Plan - Assessment and Plan (Free Text) Plan: Patient seen and examined at bedside. Patient with h/o Obesity hypoventilatoin, Chronci diasotlic heart failure, Diabetes and COPD [facility] with AMS and hyper-capneic repiratory failure -Continue bi-pap to keep Spo2 b/w 90-92 and -continue bronchodialtors -PT/OT -complete abx regimen -use heparin 7500 units q8hrs d/w ICu team -Patient remains clinically stable - Date & Time Date: 04/11/18 Time: 18:04
[2018-04-11 08:43] LABS: ANISOCYTOSIS SLIGHT; BASOPHIL 1 % (0-2); LYMPHOCYTE 7 % (20-40); MONOCYTE 2 % (0-10); NEUTROPHIL 90 % (50-75); PLATELET ESTIMATE NORMAL (NORMAL); TOTAL CELLS COUNTED 100
[2018-04-11 08:44] LABS: OVALOCYTES SLIGHT; POIKILOCYTOSIS SLIGHT
[2018-04-11] MEDS: Pantoprazole 40 mg EC Tab PO SCH (09:34)
[2018-04-11] MEDS: Potassium & Sodium Phosphate PO SCH (09:34)
[2018-04-11] MEDS: MethylPREDNISolone 40 mg Vial IVP SCH ×2 (09:35→16:41)
--- NOTE | 2018-04-11 10:10 | RAD ---
Date of service: 04/11/2018 HISTORY: intubation COMPARISON: No prior. FINDINGS: Study is limited by motion artifact. Interval removal ETT and NGT. LUNGS: Persistent bibasilar opacities likely representing combination of atelectasis/infiltrate and bilateral effusions. PLEURA: As above. No pneumothorax apparent. CARDIOVASCULAR: Heart size remains mildly enlarged. OSSEOUS STRUCTURES: Moderate multilevel degenerative spondylosis with dextroscoliosis centered in the lower thoracic region. VISUALIZED UPPER ABDOMEN: Normal. OTHER FINDINGS: None. IMPRESSION: Persistent bibasilar opacities likely representing combination of atelectasis/infiltrate and bilateral effusions.
[2018-04-11] MEDS: (Novolin R) Insulin Human Regular 100 units/ml vial SC SCH ×2 (17:21→21:27)
--- NOTE | 2018-04-11 20:30 | CP.PCM.PN ---
Subjective - Date & Time of Evaluation Date of Evaluation: 04/11/18 Time of Evaluation: 11:00 - Subjective Subjective: clinically same Objective - Vital Signs/Intake and Output Vital Signs (last 24 hours): Temp Pulse Resp BP Pulse Ox 98.1 F 71 18 147/84 98 04/11/18 16:00 04/11/18 19:00 04/11/18 19:00 04/11/18 18:30 04/11/18 19:00 Intake and Output: 04/11/18 04/12/18 18:59 06:59 Intake Total 500 0 Output Total 300 Balance 200 0 - Medications Medications: Current Medications Albuterol/Ipratropium (Duoneb 3 Mg/0.5 Mg (3 Ml) Ud) 3 ml INH RQ4 [facility] Last Admin: 04/11/18 19:45 Dose: 3 ml Aspirin (Aspirin Chewable) 81 mg PO DAILY [facility] Last Admin: 04/11/18 09:34 Dose: 81 mg Carbidopa/Levodopa (Sinemet) 1 tab PO TID [facility] Last Admin: 04/11/18 17:21 Dose: 1 tab Dextrose (Dextrose 50% Inj) 0 ml IV STAT PRN; Protocol PRN Reason: Hypoglycemia Protocol Dextrose (Glutose 15) 0 gm PO ONCE PRN; Protocol PRN Reason: Hypoglycemia Protocol Escitalopram Oxalate (Lexapro) 10 mg PO DAILY [facility] Last Admin: 04/11/18 09:34 Dose: 10 mg Gabapentin (Neurontin) 300 mg PO BID [facility] Last Admin: 04/11/18 17:24 Dose: 300 mg Glucagon (Glucagen Diagnostic Kit) 0 mg IM STAT PRN; Protocol PRN Reason: Hypoglycemia Protocol Heparin Sodium (Porcine) (Heparin) 7,500 units SC Q8 [facility] Dextrose (Dextrose 5% In Water 1000 Ml) 1,000 mls @ 0 mls/hr IV .Q0M PRN; Protocol; Per Protocol PRN Reason: Hypoglycemia Protocol Insulin Detemir (Levemir) 40 unit SC HS [facility] Last Admin: 04/10/18 22:53 Dose: Not Given Insulin Human Regular (Novolin R) 0 unit SC ACHS [facility] PRN Reason: Protocol Last Admin: 04/11/18 17:21 Dose: 3 units Levothyroxine Sodium (Synthroid) 150 mcg PO DAILY@0630 [facility] Last Admin: 04/11/18 05:50 Dose: Not Given Lisinopril (Zestril) 2.5 mg PO DAILY [facility] Last Admin: 04/11/18 09:55 Dose: 2.5 mg Methylprednisolone (Solu-Medrol) 40 mg IVP Q8H [facility] Last Admin: 04/11/18 16:41 Dose: 40 mg Metoprolol Tartrate (Lopressor) 25 mg PO BID [facility] Last Admin: 04/11/18 17:21 Dose: 25 mg Montelukast Sodium (Singulair) 10 mg PO HS [facility] Last Admin: 04/10/18 22:53 Dose: Not Given Pantoprazole Sodium (Protonix Ec Tab) 40 mg PO DAILY [facility] Last Admin: 04/11/18 09:34 Dose: 40 mg Rosuvastatin Calcium (Crestor) 2.5 mg PO [facility] Vitamin A (Vitamin A & D Oint Ud Foilpak) 1 ea TOP Q6 [facility] Last Admin: 04/11/18 17:22 Dose: 1 ea - Labs Labs: 04/11/18 06:40 04/11/18 06:37 PT 10.7 SECONDS (9.7-12.2) 04/08/18 21:38 INR 1.0 04/08/18 21:38 APTT 38 SECONDS (21-34) H 04/08/18 21:38 - Constitutional Appears: Well - Head Exam Head Exam: ATRAUMATIC, NORMAL INSPECTION, NORMOCEPHALIC - Eye Exam Eye Exam: EOMI, Normal appearance, PERRL Pupil Exam: NORMAL ACCOMODATION, PERRL - ENT Exam ENT Exam: Mucous Membranes Moist, Normal Exam - Neck Exam Neck Exam: Full ROM, Normal Inspection. absent: Lymphadenopathy - Respiratory Exam Respiratory Exam: Decreased Breath Sounds - Cardiovascular Exam Cardiovascular Exam: REGULAR RHYTHM, +S1, +S2 - GI/Abdominal Exam GI & Abdominal Exam: Soft, Diminished Bowel Sounds - Rectal Exam Rectal Exam: Deferred
[2018-04-11] MEDS: Rosuvastatin Calcium 2.5 mg Tab PO SCH (21:33)
[2018-04-11] MEDS: Insulin Detemir 100 units/ml Vial (Levemir) SC SCH (21:34)
[2018-04-11] MEDS ORDERED: (Novolin R) Insulin Human Regular 100 units/ml vial SC SCH (22:00)
[2018-04-12] MEDS: MethylPREDNISolone 40 mg Vial IVP SCH ×3 (00:54→17:26)
[2018-04-12] MEDS: Albuterol-Ipratrop 3 mg / 0.5 (3 ml) UD INH SCH ×7 (00:57→23:42)
[2018-04-12] MEDS: Levothyroxine 150 MCG TAB PO SCH (06:04)
[2018-04-12] MEDS: Vitamins A & D Oint UD Foilpak TOP SCH ×4 (06:07→17:27)
[2018-04-12] MEDS: (Novolin R) Insulin Human Regular 100 units/ml vial SC SCH ×4 (08:05→22:00)
--- NOTE | 2018-04-12 08:37 | RAD ---
Date of service: 04/12/2018 HISTORY: intubation COMPARISON: No prior. FINDINGS: LUNGS: Persistent left basilar airspace disease with none on the right. PLEURA: Left pleural effusion not excluded. None is seen the right. No pneumothorax bilaterally. Inspiratory volume appears limited. CARDIOVASCULAR: Stable cardiomediastinal silhouette. No pulmonary vascular congestion. OSSEOUS STRUCTURES: No significant abnormalities. VISUALIZED UPPER ABDOMEN: Normal. OTHER FINDINGS: None. IMPRESSION: Diminished inspiratory volume. No interval change in left basilar airspace disease and possible left pleural effusion. No active disease.
[2018-04-12] MEDS: Pantoprazole 40 mg EC Tab PO SCH (09:30)
[2018-04-12 11:35] LABS: HEMOGLOBIN 11.2 g/dL (11.0-16.0); LYMPH # 0.8 K/uL (1.0-4.3); MEAN CELL VOLUME 86.1 fL (81.0-99.0); MEAN CORPUSCULAR HEMOGLOBIN 27.7 pg (27.0-31.0); MEAN CORPUSCULAR HGB CONC 32.2 g/dL (33.0-37.0); MEAN PLATELET VOLUME 9.2 fL (7.2-11.7); MONO # 0.4 K/uL (0.0-0.8); MONO % 4.8 % (0.0-10.0); NEUT # 6.9 K/uL (1.8-7.0); NEUT % 85.2 % (50.0-75.0); NRBC % 0.1 % (0.0-2.0); RBC 4.04 Mil/uL (3.80-5.20); RED CELL DISTRIBUTION WIDTH 15.9 % (11.5-14.5)
[2018-04-12 12:02] LABS: ALB/GLOB RATIO 1.5 (1.0-2.1); ALBUMIN 3.7 g/dL (3.5-5.0); ALT/SGPT 20 U/L (9-52); AST/SGOT 8 U/L (14-36); BLOOD UREA NITROGEN 28 mg/dL (7-17); GFR NON-AFRICAN AMERICAN > 60
--- NOTE | 2018-04-12 15:46 | CP.PCM.PN ---
Subjective - Date & Time of Evaluation Date of Evaluation: 04/12/18 Time of Evaluation: 08:45 - Subjective Subjective: clinically same Objective - Vital Signs/Intake and Output Vital Signs (last 24 hours): Temp Pulse Resp BP Pulse Ox 97.8 F 63 20 169/84 H 98 04/12/18 08:24 04/12/18 12:00 04/12/18 08:24 04/12/18 09:30 04/12/18 08:24 Intake and Output: 04/12/18 04/12/18 06:59 18:59 Intake Total 240 Output Total 700 900 Balance -460 -900 - Medications Medications: Current Medications Albuterol/Ipratropium (Duoneb 3 Mg/0.5 Mg (3 Ml) Ud) 3 ml INH RQ4 [facility] Last Admin: 04/12/18 11:35 Dose: 3 ml Aspirin (Aspirin Chewable) 81 mg PO DAILY [facility] Last Admin: 04/12/18 09:29 Dose: 81 mg Carbidopa/Levodopa (Sinemet) 1 tab PO TID [facility] Last Admin: 04/12/18 14:18 Dose: 1 tab Dextrose (Dextrose 50% Inj) 0 ml IV STAT PRN; Protocol PRN Reason: Hypoglycemia Protocol Dextrose (Glutose 15) 0 gm PO ONCE PRN; Protocol PRN Reason: Hypoglycemia Protocol Escitalopram Oxalate (Lexapro) 10 mg PO DAILY [facility] Last Admin: 04/12/18 10:21 Dose: 10 mg Gabapentin (Neurontin) 300 mg PO BID [facility] Last Admin: 04/12/18 09:29 Dose: 300 mg Glucagon (Glucagen Diagnostic Kit) 0 mg IM STAT PRN; Protocol PRN Reason: Hypoglycemia Protocol Heparin Sodium (Porcine) (Heparin) 7,500 units SC Q8 [facility] Last Admin: 04/12/18 14:20 Dose: Not Given Dextrose (Dextrose 5% In Water 1000 Ml) 1,000 mls @ 0 mls/hr IV .Q0M PRN; Protocol; Per Protocol PRN Reason: Hypoglycemia Protocol Insulin Detemir (Levemir) 40 unit SC HS [facility] Last Admin: 04/11/18 21:34 Dose: 40 u Insulin Human Regular (Novolin R) 0 unit SC ACHS [facility] PRN Reason: Protocol Last Admin: 04/12/18 12:27 Dose: 3 units Levothyroxine Sodium (Synthroid) 150 mcg PO DAILY@0630 [facility] Last Admin: 04/12/18 06:04 Dose: 150 mcg Lisinopril (Zestril) 2.5 mg PO DAILY [facility] Last Admin: 04/12/18 09:30 Dose: 2.5 mg Methylprednisolone (Solu-Medrol) 40 mg IVP Q8H [facility] Last Admin: 04/12/18 08:05 Dose: 40 mg Metoprolol Tartrate (Lopressor) 25 mg PO BID [facility] Last Admin: 04/12/18 09:30 Dose: 25 mg Montelukast Sodium (Singulair) 10 mg PO HS [facility] Last Admin: 04/11/18 21:33 Dose: 10 mg Pantoprazole Sodium (Protonix Ec Tab) 40 mg PO DAILY [facility] Last Admin: 04/12/18 09:30 Dose: 40 mg Rosuvastatin Calcium (Crestor) 2.5 mg PO HS [facility] Last Admin: 04/11/18 21:33 Dose: 2.5 mg Vitamin A (Vitamin A & D Oint Ud Foilpak) 1 ea TOP Q6 [facility] Last Admin: 04/12/18 12:27 Dose: 1 ea - Labs Labs: 04/12/18 11:27 04/12/18 11:27 PT 10.7 SECONDS (9.7-12.2) 04/08/18 21:38 INR 1.0 04/08/18 21:38 APTT 38 SECONDS (21-34) H 04/08/18 21:38 - Constitutional Appears: Well - Head Exam Head Exam: ATRAUMATIC, NORMAL INSPECTION, NORMOCEPHALIC - Eye Exam Eye Exam: EOMI, Normal appearance, PERRL Pupil Exam: NORMAL ACCOMODATION, PERRL - ENT Exam ENT Exam: Mucous Membranes Moist, Normal Exam - Neck Exam Neck Exam: Full ROM, Normal Inspection. absent: Lymphadenopathy - Respiratory Exam Respiratory Exam: Decreased Breath Sounds - Cardiovascular Exam Cardiovascular Exam: REGULAR RHYTHM, +S1, +S2 - GI/Abdominal Exam GI & Abdominal Exam: Soft, Diminished Bowel Sounds - Rectal Exam Rectal Exam: Deferred
[2018-04-12] MEDS: guaiFENesin 100 mg/5 ml Syrup UD PO PRN (20:16)
[2018-04-12] MEDS: Rosuvastatin Calcium 2.5 mg Tab PO SCH (21:42)
[2018-04-12] MEDS: Insulin Detemir 100 units/ml Vial (Levemir) SC SCH (21:43)
[2018-04-13] MEDS: Vitamins A & D Oint UD Foilpak TOP SCH ×4 (00:19→18:01)
[2018-04-13] MEDS: MethylPREDNISolone 40 mg Vial IVP SCH ×3 (00:19→18:02)
[2018-04-13] MEDS: Albuterol-Ipratrop 3 mg / 0.5 (3 ml) UD INH SCH ×6 (03:18→23:59)
[2018-04-13] MEDS: Levothyroxine 150 MCG TAB PO SCH (05:57)
[2018-04-13] MEDS: (Novolin R) Insulin Human Regular 100 units/ml vial SC SCH ×4 (07:30→21:20)
[2018-04-13] MEDS: Pantoprazole 40 mg EC Tab PO SCH (09:37)
[2018-04-13] MEDS: guaiFENesin 100 mg/5 ml Syrup UD PO PRN (09:38)
--- NOTE | 2018-04-13 13:30 | CP.PCM.PN ---
Subjective - Date & Time of Evaluation Date of Evaluation: 04/13/18 Time of Evaluation: 08:30 - Subjective Subjective: clinically same Objective - Vital Signs/Intake and Output Vital Signs (last 24 hours): Temp Pulse Resp BP Pulse Ox 98.3 F 57 L 18 160/80 H 96 04/13/18 07:15 04/13/18 07:15 04/13/18 07:15 04/13/18 09:37 04/13/18 07:15 Intake and Output: 04/13/18 04/13/18 06:59 18:59 Intake Total 360 Output Total 1650 Balance -1290 - Medications Medications: Current Medications Albuterol/Ipratropium (Duoneb 3 Mg/0.5 Mg (3 Ml) Ud) 3 ml INH RQ4 [facility] Last Admin: 04/13/18 12:16 Dose: 3 ml Aspirin (Aspirin Chewable) 81 mg PO DAILY [facility] Last Admin: 04/13/18 09:38 Dose: 81 mg Carbidopa/Levodopa (Sinemet) 1 tab PO TID [facility] Last Admin: 04/13/18 12:59 Dose: 1 tab Dextrose (Dextrose 50% Inj) 0 ml IV STAT PRN; Protocol PRN Reason: Hypoglycemia Protocol Dextrose (Glutose 15) 0 gm PO ONCE PRN; Protocol PRN Reason: Hypoglycemia Protocol Escitalopram Oxalate (Lexapro) 10 mg PO DAILY [facility] Last Admin: 04/13/18 09:39 Dose: 10 mg Gabapentin (Neurontin) 300 mg PO BID [facility] Last Admin: 04/13/18 09:41 Dose: 300 mg Glucagon (Glucagen Diagnostic Kit) 0 mg IM STAT PRN; Protocol PRN Reason: Hypoglycemia Protocol Guaifenesin (Robitussin) 100 mg PO Q4H PRN PRN Reason: Cough Last Admin: 04/13/18 09:38 Dose: 100 mg Heparin Sodium (Porcine) (Heparin) 7,500 units SC Q8 [facility] Last Admin: 04/13/18 13:07 Dose: Not Given Dextrose (Dextrose 5% In Water 1000 Ml) 1,000 mls @ 0 mls/hr IV .Q0M PRN; Protocol; Per Protocol PRN Reason: Hypoglycemia Protocol Insulin Detemir (Levemir) 40 unit SC HS [facility] Last Admin: 04/12/18 21:43 Dose: 40 u Insulin Human Regular (Novolin R) 0 unit SC ACHS [facility] PRN Reason: Protocol Last Admin: 04/13/18 12:00 Dose: 2 units Levothyroxine Sodium (Synthroid) 150 mcg PO DAILY@0630 [facility] Last Admin: 04/13/18 05:57 Dose: 150 mcg Lisinopril (Zestril) 2.5 mg PO DAILY [facility] Last Admin: 04/13/18 09:38 Dose: 2.5 mg Methylprednisolone (Solu-Medrol) 40 mg IVP Q8H [facility] Last Admin: 04/13/18 09:36 Dose: 40 mg Metoprolol Tartrate (Lopressor) 25 mg PO BID [facility] Last Admin: 04/13/18 09:37 Dose: 25 mg Montelukast Sodium (Singulair) 10 mg PO HS [facility] Last Admin: 04/12/18 21:42 Dose: 10 mg Pantoprazole Sodium (Protonix Ec Tab) 40 mg PO DAILY [facility] Last Admin: 04/13/18 09:37 Dose: 40 mg Rosuvastatin Calcium (Crestor) 2.5 mg PO HS [facility] Last Admin: 04/12/18 21:42 Dose: 2.5 mg Vitamin A (Vitamin A & D Oint Ud Foilpak) 1 ea TOP Q6 [facility] Last Admin: 04/13/18 12:59 Dose: 1 ea - Labs Labs: 04/12/18 11:27 04/12/18 11:27 PT 10.7 SECONDS (9.7-12.2) 04/08/18 21:38 INR 1.0 04/08/18 21:38 APTT 38 SECONDS (21-34) H 04/08/18 21:38 - Constitutional Appears: Well - Head Exam Head Exam: ATRAUMATIC, NORMAL INSPECTION, NORMOCEPHALIC - Eye Exam Eye Exam: EOMI, Normal appearance, PERRL Pupil Exam: NORMAL ACCOMODATION, PERRL - ENT Exam ENT Exam: Mucous Membranes Moist, Normal Exam - Neck Exam Neck Exam: Full ROM, Normal Inspection. absent: Lymphadenopathy - Respiratory Exam Respiratory Exam: Decreased Breath Sounds - Cardiovascular Exam Cardiovascular Exam: REGULAR RHYTHM, +S1, +S2 - GI/Abdominal Exam GI & Abdominal Exam: Soft, Diminished Bowel Sounds - Rectal Exam Rectal Exam: Deferred
[2018-04-13 13:56] LABS: BASO % 0.1 % (0.0-2.0); HEMOGLOBIN 11.6 g/dL (11.0-16.0); LYMPH # 1.1 K/uL (1.0-4.3); LYMPH % 7.9 % (20.0-40.0); MEAN CELL VOLUME 86.5 fL (81.0-99.0); MEAN CORPUSCULAR HEMOGLOBIN 28.4 pg (27.0-31.0); MEAN CORPUSCULAR HGB CONC 32.8 g/dL (33.0-37.0); MEAN PLATELET VOLUME 9.4 fL (7.2-11.7); MONO # 0.7 K/uL (0.0-0.8); MONO % 5.5 % (0.0-10.0); NEUT # 11.8 K/uL (1.8-7.0); NEUT % 86.5 % (50.0-75.0); NRBC % 0.1 % (0.0-2.0); PLATELET COUNT 241 K/uL (130-400); RED CELL DISTRIBUTION WIDTH 15.4 % (11.5-14.5)
[2018-04-13 14:01] LABS: WHITE BLOOD COUNT 13.6 K/uL (4.8-10.8)
[2018-04-13 14:10] LABS: ALB/GLOB RATIO 1.2 (1.0-2.1); ALBUMIN 3.7 g/dL (3.5-5.0); ALT/SGPT 9 U/L (9-52); AST/SGOT 10 U/L (14-36); BLOOD UREA NITROGEN 30 mg/dL (7-17); CALCIUM 8.6 mg/dl (8.6-10.4); GFR NON-AFRICAN AMERICAN > 60
[2018-04-13 14:48] LABS: LYMPHOCYTE 6 % (20-40); MONOCYTE 5 % (0-10); NEUTROPHIL 89 % (50-75); PLATELET ESTIMATE NORMAL (NORMAL); TOTAL CELLS COUNTED 100
[2018-04-13 14:49] LABS: ANISOCYTOSIS SLIGHT; HYPOCHROMIC SLIGHT; LARGE PLATELETS PRESENT; POLYCHROMIC SLIGHT; TOXIC GRANULATION PRESENT
[2018-04-13 14:50] LABS: GIANT PLATELETS PRESENT
[2018-04-13 16:15] VITALS: RESP 20
[2018-04-13] MEDS: Insulin Detemir 100 units/ml Vial (Levemir) SC SCH (21:47)
[2018-04-13] MEDS: Rosuvastatin Calcium 2.5 mg Tab PO SCH (21:47)
[2018-04-14] MEDS: Vitamins A & D Oint UD Foilpak TOP SCH ×4 (01:11→18:15)
[2018-04-14] MEDS: MethylPREDNISolone 40 mg Vial IVP SCH ×3 (01:11→18:14)
[2018-04-14] MEDS: Albuterol-Ipratrop 3 mg / 0.5 (3 ml) UD INH SCH (03:18)
[2018-04-14] MEDS: Levothyroxine 150 MCG TAB PO SCH (05:29)
[2018-04-14 07:23] LABS: MEAN PLATELET VOLUME 10.4 fL (7.2-11.7); MONO # 0.5 K/uL (0.0-0.8)
[2018-04-14 07:57] LABS: BASO # 0.1 K/uL (0.0-0.2); BASO % 0.6 % (0.0-2.0); EOS % 0.4 % (0.0-4.0); HEMOGLOBIN 11.2 g/dL (11.0-16.0); LYMPH % 8.5 % (20.0-40.0); MEAN CORPUSCULAR HEMOGLOBIN 27.7 pg (27.0-31.0); MEAN CORPUSCULAR HGB CONC 32.2 g/dL (33.0-37.0); MONO % 4.4 % (0.0-10.0); NEUT # 10.2 K/uL (1.8-7.0); NEUT % 86.1 % (50.0-75.0); NRBC % 0.2 % (0.0-2.0); PLATELET COUNT 214 K/uL (130-400); RBC 4.05 Mil/uL (3.80-5.20); RED CELL DISTRIBUTION WIDTH 15.3 % (11.5-14.5); WHITE BLOOD COUNT 11.8 K/uL (4.8-10.8)
[2018-04-14] MEDS: (Novolin R) Insulin Human Regular 100 units/ml vial SC SCH ×4 (08:16→21:15)
[2018-04-14 08:32] LABS: ALB/GLOB RATIO 1.3 (1.0-2.1); ALBUMIN 3.5 g/dL (3.5-5.0); ALT/SGPT 24 U/L (9-52); AST/SGOT 13 U/L (14-36); BLOOD UREA NITROGEN 35 mg/dL (7-17); CALCIUM 8.2 mg/dl (8.6-10.4); GFR NON-AFRICAN AMERICAN > 60
[2018-04-14 09:24] LABS: LYMPHOCYTE 8 % (20-40); MONOCYTE 4 % (0-10); NEUTROPHIL 88 % (50-75); TOTAL CELLS COUNTED 100
[2018-04-14 09:25] LABS: PLATELET ESTIMATE NORMAL (NORMAL)
[2018-04-14 09:26] LABS: ANISOCYTOSIS SLIGHT; HYPOCHROMIC SLIGHT; POLYCHROMIC SLIGHT
[2018-04-14] MEDS: Pantoprazole 40 mg EC Tab PO SCH (10:20)
--- NOTE | 2018-04-14 16:43 | CP.PCM.PN ---
Subjective - Date & Time of Evaluation Date of Evaluation: 04/14/18 Time of Evaluation: 16:00 - Subjective Subjective: the patient seen and examined No shortness of breath Patient is alert and oriented Complaining of blackouts Afebrile Objective - Vital Signs/Intake and Output Vital Signs (last 24 hours): Temp Pulse Resp BP Pulse Ox 98.4 F 64 20 163/74 H 97 04/14/18 07:22 04/14/18 12:00 04/14/18 07:22 04/14/18 10:21 04/14/18 07:22 Intake and Output: 04/14/18 04/14/18 06:59 18:59 Intake Total 1000 Output Total 2600 Balance -1600 - Medications Medications: Current Medications Aspirin (Aspirin Chewable) 81 mg PO DAILY [facility] Last Admin: 04/14/18 10:20 Dose: 81 mg Carbidopa/Levodopa (Sinemet) 1 tab PO TID [facility] Last Admin: 04/14/18 13:03 Dose: 1 tab Dextrose (Dextrose 50% Inj) 0 ml IV STAT PRN; Protocol PRN Reason: Hypoglycemia Protocol Dextrose (Glutose 15) 0 gm PO ONCE PRN; Protocol PRN Reason: Hypoglycemia Protocol Escitalopram Oxalate (Lexapro) 10 mg PO DAILY [facility] Last Admin: 04/14/18 10:20 Dose: 10 mg Gabapentin (Neurontin) 300 mg PO BID [facility] Last Admin: 04/14/18 10:20 Dose: 300 mg Glucagon (Glucagen Diagnostic Kit) 0 mg IM STAT PRN; Protocol PRN Reason: Hypoglycemia Protocol Heparin Sodium (Porcine) (Heparin) 7,500 units SC Q8 [facility] Last Admin: 04/14/18 13:03 Dose: Not Given Insulin Detemir (Levemir) 40 unit SC HS [facility] Last Admin: 04/13/18 21:47 Dose: 40 u Insulin Human Regular (Novolin R) 0 unit SC ACHS [facility] PRN Reason: Protocol Last Admin: 04/14/18 12:30 Dose: 3 units Levothyroxine Sodium (Synthroid) 150 mcg PO DAILY@0630 [facility] Last Admin: 04/14/18 05:29 Dose: 150 mcg Lisinopril (Zestril) 2.5 mg PO DAILY [facility] Last Admin: 04/14/18 10:21 Dose: 2.5 mg Methylprednisolone (Solu-Medrol) 40 mg IVP Q8H [facility] Last Admin: 04/14/18 09:21 Dose: 40 mg Metoprolol Tartrate (Lopressor) 25 mg PO BID [facility] Last Admin: 04/14/18 10:21 Dose: 25 mg Montelukast Sodium (Singulair) 10 mg PO HS [facility] Last Admin: 04/13/18 21:47 Dose: 10 mg Pantoprazole Sodium (Protonix Ec Tab) 40 mg PO DAILY [facility] Last Admin: 04/14/18 10:20 Dose: 40 mg Rosuvastatin Calcium (Crestor) 2.5 mg PO HS [facility] Last Admin: 04/13/18 21:47 Dose: 2.5 mg Vitamin A (Vitamin A & D Oint Ud Foilpak) 1 ea TOP Q6 [facility] Last Admin: 04/14/18 12:30 Dose: 1 ea - Labs Labs: 04/14/18 07:09 04/14/18 07:09 PT 10.7 SECONDS (9.7-12.2) 04/08/18 21:38 INR 1.0 04/08/18 21:38 APTT 38 SECONDS (21-34) H 04/08/18 21:38 - Head Exam Head Exam: ATRAUMATIC, NORMOCEPHALIC - ENT Exam ENT Exam: Mucous Membranes Moist - Neck Exam Neck Exam: Normal Inspection - Respiratory Exam Respiratory Exam: Clear to Ausculation Bilateral - Cardiovascular Exam Cardiovascular Exam: REGULAR RHYTHM - GI/Abdominal Exam GI & Abdominal Exam: Soft Assessment and Plan (1) Acute respiratory failure with hypercapnia Assessment & Plan: status post extubation Breathing better BiPAP at night Nebulizer treatment Switch to prednisone Neurology consult for blackouts Status: Acute (2) COPD (chronic obstructive pulmonary disease) Status: Acute (3) FESTUS (obstructive sleep apnea) Status: Acute
--- NOTE | 2018-04-14 19:50 | CP.PCM.PN ---
Subjective - Date & Time of Evaluation Date of Evaluation: 04/14/18 Time of Evaluation: 08:30 - Subjective Subjective: clinically same Objective - Vital Signs/Intake and Output Vital Signs (last 24 hours): Temp Pulse Resp BP Pulse Ox 97.8 F 65 20 159/84 H 96 04/14/18 15:00 04/14/18 15:00 04/14/18 15:00 04/14/18 18:19 04/14/18 15:00 Intake and Output: 04/14/18 04/15/18 18:59 06:59 Output Total 1250 Balance -1250 - Medications Medications: Current Medications Aspirin (Aspirin Chewable) 81 mg PO DAILY [facility] Last Admin: 04/14/18 10:20 Dose: 81 mg Carbidopa/Levodopa (Sinemet) 1 tab PO TID [facility] Last Admin: 04/14/18 18:22 Dose: 1 tab Dextrose (Dextrose 50% Inj) 0 ml IV STAT PRN; Protocol PRN Reason: Hypoglycemia Protocol Dextrose (Glutose 15) 0 gm PO ONCE PRN; Protocol PRN Reason: Hypoglycemia Protocol Escitalopram Oxalate (Lexapro) 10 mg PO DAILY [facility] Last Admin: 04/14/18 10:20 Dose: 10 mg Gabapentin (Neurontin) 300 mg PO BID [facility] Last Admin: 04/14/18 18:22 Dose: 300 mg Glucagon (Glucagen Diagnostic Kit) 0 mg IM STAT PRN; Protocol PRN Reason: Hypoglycemia Protocol Heparin Sodium (Porcine) (Heparin) 7,500 units SC Q8 [facility] Last Admin: 04/14/18 13:03 Dose: Not Given Insulin Detemir (Levemir) 40 unit SC HS [facility] Last Admin: 04/13/18 21:47 Dose: 40 u Insulin Human Regular (Novolin R) 0 unit SC ACHS [facility] PRN Reason: Protocol Last Admin: 04/14/18 18:14 Dose: 2 units Levothyroxine Sodium (Synthroid) 150 mcg PO DAILY@0630 [facility] Last Admin: 04/14/18 05:29 Dose: 150 mcg Lisinopril (Zestril) 2.5 mg PO DAILY [facility] Last Admin: 04/14/18 10:21 Dose: 2.5 mg Methylprednisolone (Solu-Medrol) 40 mg IVP Q8H [facility] Last Admin: 04/14/18 18:14 Dose: 40 mg Metoprolol Tartrate (Lopressor) 25 mg PO BID [facility] Last Admin: 04/14/18 18:19 Dose: 25 mg Montelukast Sodium (Singulair) 10 mg PO HS [facility] Last Admin: 04/13/18 21:47 Dose: 10 mg Pantoprazole Sodium (Protonix Ec Tab) 40 mg PO DAILY [facility] Last Admin: 04/14/18 10:20 Dose: 40 mg Rosuvastatin Calcium (Crestor) 2.5 mg PO HS [facility] Last Admin: 04/13/18 21:47 Dose: 2.5 mg Vitamin A (Vitamin A & D Oint Ud Foilpak) 1 ea TOP Q6 [facility] Last Admin: 04/14/18 18:15 Dose: 1 ea - Labs Labs: 04/14/18 07:09 04/14/18 07:09 PT 10.7 SECONDS (9.7-12.2) 04/08/18 21:38 INR 1.0 04/08/18 21:38 APTT 38 SECONDS (21-34) H 04/08/18 21:38 - Constitutional Appears: Well - Head Exam Head Exam: ATRAUMATIC, NORMAL INSPECTION, NORMOCEPHALIC - Eye Exam Eye Exam: EOMI, Normal appearance, PERRL Pupil Exam: NORMAL ACCOMODATION, PERRL - ENT Exam ENT Exam: Mucous Membranes Moist, Normal Exam - Neck Exam Neck Exam: Full ROM, Normal Inspection. absent: Lymphadenopathy - Respiratory Exam Respiratory Exam: Prolonged Expiratory Phase - Cardiovascular Exam Cardiovascular Exam: REGULAR RHYTHM, +S1, +S2 - GI/Abdominal Exam GI & Abdominal Exam: Soft, Diminished Bowel Sounds - Rectal Exam Rectal Exam: Deferred
[2018-04-14] MEDS: Rosuvastatin Calcium 2.5 mg Tab PO SCH (21:52)
[2018-04-14] MEDS: Insulin Detemir 100 units/ml Vial (Levemir) SC SCH (21:53)
[2018-04-15] MEDS: MethylPREDNISolone 40 mg Vial IVP SCH ×3 (00:18→18:00)
[2018-04-15] MEDS: Vitamins A & D Oint UD Foilpak TOP SCH ×4 (00:18→18:35)
[2018-04-15] MEDS: Albuterol-Ipratrop 3 mg / 0.5 (3 ml) UD INH SCH ×6 (00:31→19:12)
[2018-04-15] MEDS: Levothyroxine 150 MCG TAB PO SCH (05:34)
--- NOTE | 2018-04-15 07:15 | CP.PCM.CON ---
History of Present Illness - History of Present Illness History of Present Illness: CONSULT DICATATED OBESITY HYPOVENTILATION SYNDROME WITH CENTRAL SLEEP APNEA ON DE N CURSE FAMILIAL TREMOR NO SIGHN OF [place] - WILL TAPER OF SINEMET PRIMIDONE CAN HELP FOR TREMOR AND ??? SEIZURES EEG/CAT BRAIN NON INV VENTILATOR FOR HER SRBD DVT PROPHYLAXIS Past Patient History - Infectious Disease Hx of Infectious Diseases: None, VRE - Tetanus Immunizations Tetanus Immunization: Unknown - Past Medical History & Family History Past Medical History?: Yes - Past Social History Smoking Status: Never Smoked - CARDIAC Hx Cardiac Disorders: Yes Hx Angina: Yes Hx Hypertension: Yes - PULMONARY Hx Respiratory Disorders: Yes Hx Chronic Obstructive Pulmonary Disease (COPD): Yes Hx Sleep Apnea: Yes (on Bipap) - NEUROLOGICAL Hx Neurological Disorder: Yes Hx Dementia: Yes Hx Parkinson's Disease: Yes - HEENT Hx HEENT Problems: No - RENAL Hx Chronic Kidney Disease: No - ENDOCRINE/METABOLIC Hx Endocrine Disorders: Yes Hx Hypothyroidism: Yes - HEMATOLOGICAL/ONCOLOGICAL Hx Blood Disorders: Yes Hx Anemia: Yes - INTEGUMENTARY Hx Dermatological Problems: No - MUSCULOSKELETAL/RHEUMATOLOGICAL Hx Musculoskeletal Disorders: Yes Hx Arthritis: Yes Hx Falls: No - GASTROINTESTINAL Hx Gastrointestinal Disorders: Yes Hx Constipation: Yes Hx Gastroesophageal Reflux: Yes - GENITOURINARY/GYNECOLOGICAL Hx Genitourinary Disorders: Yes Hx Incontinence: Yes Hx Urinary Tract Infection: Yes - PSYCHIATRIC Hx Psychophysiologic Disorder: Yes Hx Anxiety: Yes Hx Bipolar Disorder: Yes Hx Depression: Yes - SURGICAL HISTORY Hx Surgeries: Yes Hx Hysterectomy: Yes Hx Orthopedic Surgery: Yes Other/Comment: right knee replacement 2014; right knee prosthesis removal s/p infection 2014 - ANESTHESIA Hx Anesthesia: Yes Hx Anesthesia Reactions: No Hx Malignant Hyperthermia: No Meds Allergies/Adverse Reactions: Allergies Allergy/AdvReac Type Severity Reaction Status Date / Time Cephalosporins Allergy Intermediate RASH Verified 04/08/18 20:07 Penicillins Allergy Intermediate RASH Verified 04/08/18 20:07 clonazepam [From Klonopin] Allergy Verified 04/08/18 20:07 mustard Allergy Intermediate RASH Uncoded 04/08/18 20:07 - Medications Medications: Current Medications Albuterol/Ipratropium (Duoneb 3 Mg/0.5 Mg (3 Ml) Ud) 3 ml INH RQ4 [facility] Last Admin: 04/15/18 04:21 Dose: 3 ml Aspirin (Aspirin Chewable) 81 mg PO DAILY [facility] Last Admin: 04/14/18 10:20 Dose: 81 mg Dextrose (Dextrose 50% Inj) 0 ml IV STAT PRN; Protocol PRN Reason: Hypoglycemia Protocol Dextrose (Glutose 15) 0 gm PO ONCE PRN; Protocol PRN Reason: Hypoglycemia Protocol Escitalopram Oxalate (Lexapro) 10 mg PO DAILY [facility] Last Admin: 04/14/18 10:20 Dose: 10 mg Gabapentin (Neurontin) 300 mg PO BID [facility] Last Admin: 04/14/18 18:22 Dose: 300 mg Glucagon (Glucagen Diagnostic Kit) 0 mg IM STAT PRN; Protocol PRN Reason: Hypoglycemia Protocol Insulin Detemir (Levemir) 40 unit SC HS [facility] Last Admin: 04/14/18 21:53 Dose: 40 u Insulin Human Regular (Novolin R) 0 unit SC [facility] PRN Reason: Protocol Last Admin: 04/14/18 21:15 Dose: Not Given Levothyroxine Sodium (Synthroid) 150 mcg PO DAILY@0630 [facility] Last Admin: 04/15/18 05:34 Dose: 150 mcg Lisinopril (Zestril) 2.5 mg PO DAILY [facility] Last Admin: 04/14/18 10:21 Dose: 2.5 mg Methylprednisolone (Solu-Medrol) 40 mg IVP Q8H [facility] Last Admin: 04/15/18 00:18 Dose: 40 mg Metoprolol Tartrate (Lopressor) 25 mg PO BID [facility] Last Admin: 04/14/18 18:19 Dose: 25 mg Montelukast Sodium (Singulair) 10 mg PO HS [facility] Last Admin: 04/14/18 21:53 Dose: 10 mg Pantoprazole Sodium (Protonix Ec Tab) 40 mg PO DAILY [facility] Last Admin: 04/14/18 10:20 Dose: 40 mg Primidone (Mysoline) 50 mg PO HS [facility] Rosuvastatin Calcium (Crestor) 2.5 mg PO HS [facility] Last Admin: 04/14/18 21:52 Dose: 2.5 mg Vitamin A (Vitamin A & D Oint Ud Foilpak) 1 ea TOP Q6 [facility] Last Admin: 04/15/18 05:34 Dose: 1 ea Results - Vital Signs Recent Vital Signs: Last Vital Signs Temp 97.8 F 04/14/18 23:10 Pulse 63 04/15/18 01:00 Resp 20 04/14/18 23:10 BP 161/72 H 04/14/18 23:10 Pulse Ox 95 04/14/18 23:10 - Labs Result Diagrams: 04/14/18 07:09 04/14/18 07:09 Labs: Laboratory Results - last 24 hr 04/14/18 04/14/18 04/14/18 06:21 07:09 07:09 WBC 11.8 H RBC 4.05 Hgb 11.2 Hct 34.8 MCV 86.0 MCH 27.7 MCHC 32.2 L RDW 15.3 H Plt Count 214 MPV 10.4 Neut % (Auto) 86.1 H Lymph % (Auto) 8.5 L [place] % (Auto) 4.4 Eos % (Auto) 0.4 Baso % (Auto) 0.6 Neut # (Auto) 10.2 H Lymph # (Auto) 1.0 [place] # (Auto) 0.5 Eos # (Auto) 0.0 Baso # (Auto) 0.1 Neutrophils % (Manual) 88 H Lymphocytes % (Manual) 8 L Monocytes % (Manual) 4 Platelet Estimate Normal Polychromasia Slight Hypochromasia (manual) Slight Anisocytosis (manual) Slight Sodium 134 Potassium 5.0 Chloride 97 L Carbon Dioxide 28 Anion Gap 14 BUN 35 H Creatinine 0.9 Est GFR ( Amer) > 60 Est GFR (Non-Af Amer) > 60 POC Glucose (mg/dL) 187 H Random Glucose 180 H Calcium 8.2 L Phosphorus 2.9 Magnesium 2.2 Total Bilirubin 0.2 AST 13 L D ALT 24 Alkaline Phosphatase 55 Total Protein 6.2 L Albumin 3.5 Globulin 2.7 Albumin/Globulin Ratio 1.3 04/14/18 04/14/18 04/14/18 11:26 16:29 20:59 WBC RBC Hgb Hct MCV MCH MCHC RDW Plt Count MPV Neut % (Auto) Lymph % (Auto) [place] % (Auto) Eos % (Auto) Baso % (Auto) Neut # (Auto) Lymph # (Auto) [place] # (Auto) Eos # (Auto) Baso # (Auto) Neutrophils % (Manual) Lymphocytes % (Manual) Monocytes % (Manual) Platelet Estimate Polychromasia Hypochromasia (manual) Anisocytosis (manual) Sodium Potassium Chloride Carbon Dioxide Anion Gap BUN Creatinine Est GFR ( Amer) Est GFR (Non-Af Amer) POC Glucose (mg/dL) 223 H 176 H 200 H Random Glucose Calcium Phosphorus Magnesium Total Bilirubin AST ALT Alkaline Phosphatase Total Protein Albumin Globulin Albumin/Globulin Ratio
[2018-04-15 07:42] LABS: ALB/GLOB RATIO 1.3 (1.0-2.1); ALBUMIN 3.6 g/dL (3.5-5.0); ALT/SGPT 39 U/L (9-52); AST/SGOT 19 U/L (14-36); BLOOD UREA NITROGEN 35 mg/dL (7-17); CALCIUM 8.8 mg/dl (8.6-10.4); GFR NON-AFRICAN AMERICAN 55
[2018-04-15] MEDS: (Novolin R) Insulin Human Regular 100 units/ml vial SC SCH ×4 (08:10→21:37)
[2018-04-15 08:30] LABS: HEMOGLOBIN 11.9 g/dL (11.0-16.0); LYMPH # 0.7 K/uL (1.0-4.3); LYMPH % 7.1 % (20.0-40.0); MEAN CELL VOLUME 86.9 fL (81.0-99.0); MEAN CORPUSCULAR HEMOGLOBIN 27.4 pg (27.0-31.0); MEAN CORPUSCULAR HGB CONC 31.5 g/dL (33.0-37.0); MEAN PLATELET VOLUME 10.3 fL (7.2-11.7); MONO # 0.5 K/uL (0.0-0.8); MONO % 4.8 % (0.0-10.0); NEUT # 9.2 K/uL (1.8-7.0); NEUT % 88.1 % (50.0-75.0); NRBC % 0.1 % (0.0-2.0); PLATELET COUNT 198 K/uL (130-400); RBC 4.37 Mil/uL (3.80-5.20); RED CELL DISTRIBUTION WIDTH 15.8 % (11.5-14.5); WHITE BLOOD COUNT 10.4 K/uL (4.8-10.8)
[2018-04-15 08:40] LABS: LYMPHOCYTE 6 % (20-40); MONOCYTE 4 % (0-10); NEUTROPHIL 90 % (50-75); PLATELET ESTIMATE NORMAL (NORMAL); TOTAL CELLS COUNTED 100
[2018-04-15 08:41] LABS: ANISOCYTOSIS SLIGHT; OVALOCYTES SLIGHT
[2018-04-15 08:52] LABS: ERYTHROCYTE SEDIMENTATION RATE 30 mm/hr (0-20)
[2018-04-15] MEDS: Pantoprazole 40 mg EC Tab PO SCH (09:34)
[2018-04-15 10:24] LABS: PROLACTIN 14.6 ng/mL (3.0-18.9)
--- NOTE | 2018-04-15 12:34 | CT ---
Date of service: 04/15/2018 PROCEDURE: CT HEAD WITHOUT CONTRAST. HISTORY: R/O mass COMPARISON: Comparison is made to the previous study dated 03/02/2018 TECHNIQUE: Axial computed tomography images were obtained through the head/brain without intravenous contrast. Radiation dose: Total exam DLP = 1638.28 mGy-cm. This CT exam was performed using one or more of the following dose reduction techniques: Automated exposure control, adjustment of the mA and/or kV according to patient size, and/or use of iterative reconstruction technique. FINDINGS: HEMORRHAGE: No intracranial hemorrhage. BRAIN: No mass effect or edema. Woam-zn-cuqxomvk atrophy and oaha-gw-obhrdenc chronic microvascular white matter ischemic disease are again noted. VENTRICLES: Unremarkable. No hydrocephalus. CALVARIUM: Unremarkable. PARANASAL SINUSES: Unremarkable as visualized. No significant inflammatory changes. MASTOID AIR CELLS: Unremarkable as visualized. No inflammatory changes. OTHER FINDINGS: None. IMPRESSION: No evidence of acute intracranial hemorrhage intracranial collection mass effect or midline shift. No significant interval change noted since the previous exam. Nabb-el-jzdkgxwy atrophy and qovh-fw-giwcembi chronic microvascular white matter ischemic disease are again noted.
--- NOTE | 2018-04-15 18:05 | CP.PCM.PN ---
Subjective - Date & Time of Evaluation Date of Evaluation: 04/15/18 Time of Evaluation: 08:30 - Subjective Subjective: clinically same Objective - Vital Signs/Intake and Output Vital Signs (last 24 hours): Temp Pulse Resp BP Pulse Ox 99.7 F H 60 20 164/85 H 95 04/15/18 15:00 04/15/18 15:00 04/15/18 15:00 04/15/18 15:00 04/15/18 15:00 Intake and Output: 04/15/18 04/15/18 06:59 18:59 Output Total 3450 Balance -3450 - Medications Medications: Current Medications Albuterol/Ipratropium (Duoneb 3 Mg/0.5 Mg (3 Ml) Ud) 3 ml INH RQ4 [facility] Last Admin: 04/15/18 12:01 Dose: 3 ml Aspirin (Aspirin Chewable) 81 mg PO DAILY [facility] Last Admin: 04/15/18 09:34 Dose: 81 mg Carbidopa/Levodopa (Sinemet) 1 tab PO BID [facility] Last Admin: 04/15/18 09:33 Dose: 1 tab Dextrose (Dextrose 50% Inj) 0 ml IV STAT PRN; Protocol PRN Reason: Hypoglycemia Protocol Dextrose (Glutose 15) 0 gm PO ONCE PRN; Protocol PRN Reason: Hypoglycemia Protocol Escitalopram Oxalate (Lexapro) 10 mg PO DAILY [facility] Last Admin: 04/15/18 09:34 Dose: 10 mg Gabapentin (Neurontin) 300 mg PO BID [facility] Last Admin: 04/15/18 09:33 Dose: 300 mg Glucagon (Glucagen Diagnostic Kit) 0 mg IM STAT PRN; Protocol PRN Reason: Hypoglycemia Protocol Insulin Detemir (Levemir) 40 unit SC HS [facility] Last Admin: 04/14/18 21:53 Dose: 40 u Insulin Human Regular (Novolin R) 0 unit SC ACHS [facility] PRN Reason: Protocol Last Admin: 04/15/18 13:16 Dose: 2 units Levothyroxine Sodium (Synthroid) 150 mcg PO DAILY@0630 [facility] Last Admin: 04/15/18 05:34 Dose: 150 mcg Lisinopril (Zestril) 2.5 mg PO DAILY [facility] Last Admin: 04/15/18 09:45 Dose: 2.5 mg Methylprednisolone (Solu-Medrol) 40 mg IVP Q8H [facility] Last Admin: 04/15/18 09:36 Dose: 40 mg Metoprolol Tartrate (Lopressor) 25 mg PO BID [facility] Last Admin: 04/15/18 09:33 Dose: 25 mg Montelukast Sodium (Singulair) 10 mg PO HS [facility] Last Admin: 04/14/18 21:53 Dose: 10 mg Pantoprazole Sodium (Protonix Ec Tab) 40 mg PO DAILY [facility] Last Admin: 04/15/18 09:34 Dose: 40 mg Primidone (Mysoline) 50 mg PO [facility] Rosuvastatin Calcium (Crestor) 2.5 mg PO HS [facility] Last Admin: 04/14/18 21:52 Dose: 2.5 mg Vitamin A (Vitamin A & D Oint Ud Foilpak) 1 ea TOP Q6 [facility] Last Admin: 04/15/18 13:17 Dose: 1 ea - Labs Labs: 04/15/18 06:26 04/15/18 06:26 PT 10.7 SECONDS (9.7-12.2) 04/08/18 21:38 INR 1.0 04/08/18 21:38 APTT 38 SECONDS (21-34) H 04/08/18 21:38 - Constitutional Appears: Well - Head Exam Head Exam: ATRAUMATIC, NORMAL INSPECTION, NORMOCEPHALIC - Eye Exam Eye Exam: EOMI, Normal appearance, PERRL Pupil Exam: NORMAL ACCOMODATION, PERRL - ENT Exam ENT Exam: Mucous Membranes Moist, Normal Exam - Neck Exam Neck Exam: Full ROM, Normal Inspection. absent: Lymphadenopathy - Respiratory Exam Respiratory Exam: Decreased Breath Sounds - Cardiovascular Exam Cardiovascular Exam: REGULAR RHYTHM, +S1, +S2 - GI/Abdominal Exam GI & Abdominal Exam: Soft, Diminished Bowel Sounds - Rectal Exam Rectal Exam: Deferred
[2018-04-15 18:15] LABS: FREE T4 1.24 ng/dL (0.78-2.19)
--- NOTE | 2018-04-15 18:50 | CON ---
Copied To: Homer Valentine MD Attending MD: Madonna Foster MD DATE: 04/15/2018 LOCATION: Room #652, bed A. REASON FOR CONSULTATION: Blackouts. CHIEF COMPLAINT: The patient was admitted on 04/08/2018 because of her mid sternal pain. Initially, she was in the ICU, been intubated and extubated lately. From neurological point, I was called into evaluate her because of her history of recurrent blackouts. HISTORY OF PRESENT ILLNESS: Ms. Linda George is a 72-year-old morbidly obese right-handed Setsw[place]-speaking female, presenting with more than a year history of blackouts. This can happen any time while she is awake. This can happen while sitting, standing, and lying down. Even it happened while during conversation, suddenly she blacks out and then she comes back up. No obvious witnessed tonic-clonic activities, bowel or bladder incontinence or bitten tongue. The patient has been suffering from tremor, which related to her mother having tremor and her son also having the tremor, been seen by neurologist in the past, been treated with Sinemet for long period of time without any benefits. No history of head trauma. No history of neck injuries. PAST MEDICAL HISTORY: Significant for bipolar disorder, COPD, dementia, depression, hypertension, hypothyroidism ?, Parkinson disease, and sleep apnea. SURGERY: No surgeries. PERSONAL HISTORY: Denies smoking or alcohol use. ALLERGIES: TO CEPHALOSPORIN, PENICILLIN, CLONAZEPAM, AND MUSTARD SEED. REVIEW OF SYSTEMS: A 12-point system being reviewed. From neuro, recurrent blackout spell. PHYSICAL EXAMINATION: VITAL SIGNS: Blood pressure 161/72, mean arterial pressure of 101, respiratory rate 20. She is on BiPAP at present. Pulse rate 63 regular, temperature 97.8. NECK: Supple. No carotid bruits. HEART: Sounds regular. CHEST: Fair air entry. EXTREMITIES: Postsurgical scar seen over the right knee. Both lower extremities are edematous with persistent tremor. NEUROLOGICAL: Mental status: She is awake, alert, and oriented to person, place, and time. Speech is clear. Naming, repetition, fluency, comprehension all within normal. No sign of depression. No sign of suicidal ideation. No sign of hallucination. Cranial nerve: Visual field intact. Pupil reactive to light. Extraocular movement normal. No nystagmus. No facial sensory deficit. No facial asymmetry. Hearing is normal. Tongue is midline. Good gag. Motor: On outstretched hand with eyes closed, no drift noted. No asterixis. Strength is equal in all four extremities. All movements are limited due to her physical nature. Deep tendon reflexes are absent. Plantars are downgoing. Sensory: Grossly intact. No cortical sensory loss. Mild distal sensory motor neuropathy. Coordination: Akfahu-er-boqh test is intact. BLOOD WORKUP: WBC 11.8, hemoglobin 11.2, hematocrit 34.8, platelet 214. Sodium 134, potassium 5, chloride 97, bicarbonate 28, BUN 35, creatinine 0.9, GFR more than 60, glucose 200, and AST 13. CONCLUSION: 1. Ms. Linda George has been presenting with recurrent episode of blackouts. Not associating with seizure activities. It could be nonconvulsive seizures or it could be complication from central sleep apnea. However, other possible causes from central nervous system should be ruled out. 2. 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 The patient does not have Parkinson disease. 3. Metabolic-induced distal sensory motor neuropathy. 4. Central sleep apnea superimposed with obesity hypoventilation syndrome under bilevel positive airway pressure. RECOMMENDATIONS: 1. CT of the head to rule out any central nervous system lesion. 2. Electroencephalogram to rule out seizures. If regular EEG is negative, the patient definitely need extended ambulatory electroencephalogram, which can be done as outpatient. 3. Sinemet should be slowly tapered off. I would like to start her on primidone and primidone dose can be titrated as she tolerates slowly. 4. DVT prophylaxis. 5. Noninvasive nocturnal ventilators can be good for her to prevent complex sleep apnea versus central sleep apnea as well. 6. The patient's condition has been well discussed with her. She agreed with my plan of management. The patient will be followed closely while she is in the hospital. Homer Valentine MD [facility]
[2018-04-15] MEDS: Rosuvastatin Calcium 2.5 mg Tab PO SCH (22:22)
[2018-04-15] MEDS: Insulin Detemir 100 units/ml Vial (Levemir) SC SCH (22:31)
[2018-04-16] MEDS: Vitamins A & D Oint UD Foilpak TOP SCH ×4 (00:14→17:49)
[2018-04-16] MEDS: MethylPREDNISolone 40 mg Vial IVP SCH ×3 (00:17→21:35)
[2018-04-16] MEDS: Albuterol-Ipratrop 3 mg / 0.5 (3 ml) UD INH SCH ×6 (00:42→19:15)
[2018-04-16] MEDS: Levothyroxine 150 MCG TAB PO SCH (05:39)
[2018-04-16] MEDS: (Novolin R) Insulin Human Regular 100 units/ml vial SC SCH ×4 (08:22→22:11)
[2018-04-16 08:56] LABS: EOS % 0.1 % (0.0-4.0); MEAN CORPUSCULAR HGB CONC 32.4 g/dL (33.0-37.0)
[2018-04-16 09:15] LABS: BASO # 0.1 K/uL (0.0-0.2); BASO % 0.6 % (0.0-2.0); HEMOGLOBIN 11.8 g/dL (11.0-16.0); LYMPH # 1.3 K/uL (1.0-4.3); LYMPH % 9.2 % (20.0-40.0); MEAN CELL VOLUME 87.1 fL (81.0-99.0); MEAN CORPUSCULAR HEMOGLOBIN 28.2 pg (27.0-31.0); MEAN PLATELET VOLUME 10.5 fL (7.2-11.7); MONO # 0.7 K/uL (0.0-0.8); MONO % 4.8 % (0.0-10.0); NEUT # 12.4 K/uL (1.8-7.0); NEUT % 85.3 % (50.0-75.0); NRBC % 0.4 % (0.0-2.0); PLATELET COUNT 188 K/uL (130-400); RBC 4.19 Mil/uL (3.80-5.20); RED CELL DISTRIBUTION WIDTH 15.5 % (11.5-14.5); WHITE BLOOD COUNT 14.6 K/uL (4.8-10.8)
[2018-04-16] MEDS: Pantoprazole 40 mg EC Tab PO SCH (09:41)
[2018-04-16 10:45] LABS: LYMPHOCYTE 11 % (20-40); MONOCYTE 3 % (0-10); NEUTROPHIL 86 % (50-75); TOTAL CELLS COUNTED 100
[2018-04-16 10:46] LABS: ANISOCYTOSIS SLIGHT; PLATELET ESTIMATE NORMAL (NORMAL); POIKILOCYTOSIS SLIGHT; TARGET CELLS SLIGHT
--- NOTE | 2018-04-16 11:05 | PN ---
Copied To: Homer Valentine MD Attending MD: Homer Valentine MD DATE OF EVALUATION: 04/16/2018 NEUROLOGICAL PROBLEM: Blackout, possible nonconvulsive seizures versus central sleep apnea. PHYSICAL EXAMINATION: GENERAL: The patient claims no blackouts; however, sleep is not bright. She is on BiPAP. VITAL SIGNS: Blood pressure 143/83, respiratory rate 20, temperature 97.9, pulse rate 80. Examination is unchanged compared with my previous examination. WORKUP: Prolactin level was 14.6, TSH is 0.31, B12 is 751. RECOMMENDATION: Continue primidone, the dose can be increased to 100 mg at night. Again, the dose can be slowly increased to 250 mg as she tolerates. Her further workup and electroencephalogram is still pending. The patient should have MRI of the brain because her physique not done at this facility. That can be done as outpatient. The patient will be followed closely with you. Homer Valentine MD MTDOctavio
[2018-04-16 11:46] LABS: ALB/GLOB RATIO 1.3 (1.0-2.1); ALBUMIN 3.7 g/dL (3.5-5.0); ALT/SGPT 40 U/L (9-52); AST/SGOT 16 U/L (14-36); BLOOD UREA NITROGEN 41 mg/dL (7-17); CALCIUM 8.8 mg/dl (8.6-10.4); GFR NON-AFRICAN AMERICAN > 60
[2018-04-16 14:32] LABS: ARTERIAL BLOOD GAS HCO3 26.6 mmol/L (21-28); ARTERIAL BLOOD GAS HEMOGLOBIN 10.9 g/dL (11.7-17.4); ARTERIAL BLOOD GAS PCO2 67 mm/Hg (35-45); ARTERIAL BLOOD GAS PH 7.28 (7.35-7.45); ARTERIAL BLOOD GAS PO2 30 mm/Hg (80-100); ARTERIAL BLOOD GAS TCO2 33.6 mmol/L (22-28)
--- NOTE | 2018-04-16 17:52 | CP.PCM.PN ---
Subjective - Date & Time of Evaluation Date of Evaluation: 04/16/18 Time of Evaluation: 09:00 - Subjective Subjective: clinically same Objective - Vital Signs/Intake and Output Vital Signs (last 24 hours): Temp Pulse Resp BP Pulse Ox 97.9 F 57 L 20 160/75 H 94 L 04/16/18 15:30 04/16/18 16:06 04/16/18 15:30 04/16/18 17:49 04/16/18 15:30 Intake and Output: 04/16/18 04/16/18 06:59 18:59 Intake Total 530 600 Output Total 2600 500 Balance -2070 100 - Medications Medications: Current Medications Albuterol/Ipratropium (Duoneb 3 Mg/0.5 Mg (3 Ml) Ud) 3 ml INH RQ4 [facility] Last Admin: 04/16/18 16:06 Dose: 3 ml Aspirin (Aspirin Chewable) 81 mg PO DAILY [facility] Last Admin: 04/16/18 09:40 Dose: 81 mg Carbidopa/Levodopa (Sinemet) 1 tab PO BID [facility] Last Admin: 04/16/18 17:49 Dose: 1 tab Dextrose (Dextrose 50% Inj) 0 ml IV STAT PRN; Protocol PRN Reason: Hypoglycemia Protocol Dextrose (Glutose 15) 0 gm PO ONCE PRN; Protocol PRN Reason: Hypoglycemia Protocol Escitalopram Oxalate (Lexapro) 10 mg PO DAILY [facility] Last Admin: 04/16/18 09:41 Dose: 10 mg Gabapentin (Neurontin) 300 mg PO BID [facility] Last Admin: 04/16/18 17:49 Dose: 300 mg Glucagon (Glucagen Diagnostic Kit) 0 mg IM STAT PRN; Protocol PRN Reason: Hypoglycemia Protocol Heparin Sodium (Porcine) (Heparin) 7,500 units SC Q8 [facility] Last Admin: 04/16/18 13:47 Dose: 7,500 units Insulin Detemir (Levemir) 40 unit SC HS [facility] Last Admin: 04/15/18 22:31 Dose: 40 u Insulin Human Regular (Novolin R) 0 unit SC ACHS [facility] PRN Reason: Protocol Last Admin: 04/16/18 17:49 Dose: 4 units Levothyroxine Sodium (Synthroid) 150 mcg PO DAILY@0630 [facility] Last Admin: 04/16/18 05:39 Dose: 150 mcg Lisinopril (Zestril) 2.5 mg PO DAILY [facility] Last Admin: 04/16/18 09:41 Dose: 2.5 mg Methylprednisolone (Solu-Medrol) 40 mg IVP Q12H [facility] Metoprolol Tartrate (Lopressor) 25 mg PO BID [facility] Last Admin: 04/16/18 17:49 Dose: 25 mg Montelukast Sodium (Singulair) 10 mg PO HS [facility] Last Admin: 04/15/18 22:22 Dose: 10 mg Pantoprazole Sodium (Protonix Ec Tab) 40 mg PO DAILY [facility] Last Admin: 04/16/18 09:41 Dose: 40 mg Primidone (Mysoline) 50 mg PO HS [facility] Last Admin: 04/15/18 22:22 Dose: 50 mg Rosuvastatin Calcium (Crestor) 2.5 mg PO [facility] Last Admin: 04/15/18 22:22 Dose: 2.5 mg Vitamin A (Vitamin A & D Oint Ud Foilpak) 1 ea TOP Q6 [facility] Last Admin: 04/16/18 17:49 Dose: 1 ea - Labs Labs: 04/16/18 08:39 04/16/18 11:18 PT 10.7 SECONDS (9.7-12.2) 04/08/18 21:38 INR 1.0 04/08/18 21:38 APTT 38 SECONDS (21-34) H 04/08/18 21:38 - Constitutional Appears: Well - Head Exam Head Exam: ATRAUMATIC, NORMAL INSPECTION, NORMOCEPHALIC - Eye Exam Eye Exam: EOMI, Normal appearance, PERRL Pupil Exam: NORMAL ACCOMODATION, PERRL - ENT Exam ENT Exam: Mucous Membranes Moist, Normal Exam - Neck Exam Neck Exam: Full ROM, Normal Inspection. absent: Lymphadenopathy - Respiratory Exam Respiratory Exam: Decreased Breath Sounds - Cardiovascular Exam Cardiovascular Exam: REGULAR RHYTHM, +S1, +S2 - GI/Abdominal Exam GI & Abdominal Exam: Soft, Diminished Bowel Sounds - Rectal Exam Rectal Exam: Deferred
--- NOTE | 2018-04-16 18:14 | CP.PCM.PN ---
Subjective - Date & Time of Evaluation Date of Evaluation: 04/16/18 Time of Evaluation: 09:45 - Subjective Subjective: Medicine progress note for Dr. Foster's service Patient is a 72 year old female s/p intubation 04/09 for AMS due to hypercapnea with subsequent extubation 04/10/18. Patient currently resting comfortably in bed out of ICU. Patient reports breathing is more comfortable compared to previous days. Objective - Vital Signs/Intake and Output Vital Signs (last 24 hours): Temp Pulse Resp BP Pulse Ox 97.9 F 57 L 20 160/75 H 94 L 04/16/18 15:30 04/16/18 16:06 04/16/18 15:30 04/16/18 17:49 04/16/18 15:30 Intake and Output: 04/16/18 04/16/18 06:59 18:59 Intake Total 530 600 Output Total 2600 500 Balance -2070 100 - Medications Medications: Current Medications Albuterol/Ipratropium (Duoneb 3 Mg/0.5 Mg (3 Ml) Ud) 3 ml INH RQ4 [facility] Last Admin: 04/16/18 16:06 Dose: 3 ml Aspirin (Aspirin Chewable) 81 mg PO DAILY [facility] Last Admin: 04/16/18 09:40 Dose: 81 mg Carbidopa/Levodopa (Sinemet) 1 tab PO BID [facility] Last Admin: 04/16/18 17:49 Dose: 1 tab Dextrose (Dextrose 50% Inj) 0 ml IV STAT PRN; Protocol PRN Reason: Hypoglycemia Protocol Dextrose (Glutose 15) 0 gm PO ONCE PRN; Protocol PRN Reason: Hypoglycemia Protocol Escitalopram Oxalate (Lexapro) 10 mg PO DAILY [facility] Last Admin: 04/16/18 09:41 Dose: 10 mg Gabapentin (Neurontin) 300 mg PO BID [facility] Last Admin: 04/16/18 17:49 Dose: 300 mg Glucagon (Glucagen Diagnostic Kit) 0 mg IM STAT PRN; Protocol PRN Reason: Hypoglycemia Protocol Heparin Sodium (Porcine) (Heparin) 7,500 units SC Q8 [facility] Last Admin: 04/16/18 13:47 Dose: 7,500 units Insulin Detemir (Levemir) 40 unit SC HS [facility] Last Admin: 04/15/18 22:31 Dose: 40 u Insulin Human Regular (Novolin R) 0 unit SC ACHS [facility] PRN Reason: Protocol Last Admin: 04/16/18 17:49 Dose: 4 units Levothyroxine Sodium (Synthroid) 150 mcg PO DAILY@0630 [facility] Last Admin: 04/16/18 05:39 Dose: 150 mcg Lisinopril (Zestril) 2.5 mg PO DAILY [facility] Last Admin: 04/16/18 09:41 Dose: 2.5 mg Methylprednisolone (Solu-Medrol) 40 mg IVP Q12H [facility] Metoprolol Tartrate (Lopressor) 25 mg PO BID [facility] Last Admin: 04/16/18 17:49 Dose: 25 mg Montelukast Sodium (Singulair) 10 mg PO HS [facility] Last Admin: 04/15/18 22:22 Dose: 10 mg Pantoprazole Sodium (Protonix Ec Tab) 40 mg PO DAILY [facility] Last Admin: 04/16/18 09:41 Dose: 40 mg Primidone (Mysoline) 50 mg PO HS [facility] Last Admin: 04/15/18 22:22 Dose: 50 mg Rosuvastatin Calcium (Crestor) 2.5 mg PO [facility] Last Admin: 04/15/18 22:22 Dose: 2.5 mg Vitamin A (Vitamin A & D Oint Ud Foilpak) 1 ea TOP Q6 [facility] Last Admin: 04/16/18 17:49 Dose: 1 ea - Labs Labs: 04/16/18 08:39 04/16/18 11:18 PT 10.7 SECONDS (9.7-12.2) 04/08/18 21:38 INR 1.0 04/08/18 21:38 APTT 38 SECONDS (21-34) H 04/08/18 21:38 - Constitutional Appears: No Acute Distress, Chronically Ill, Other (morbidly obese) - Head Exam Head Exam: ATRAUMATIC, NORMOCEPHALIC - Eye Exam Eye Exam: EOMI - ENT Exam ENT Exam: Mucous Membranes Moist - Respiratory Exam Respiratory Exam: Decreased Breath Sounds. absent: Rales, Rhonchi, Wheezes - Cardiovascular Exam Cardiovascular Exam: +S1, +S2. absent: Tachycardia, Murmur - GI/Abdominal Exam GI & Abdominal Exam: Soft, Normal Bowel Sounds. absent: Tenderness - Exam Additional comments: andrews catheter - Extremities Exam Extremities Exam: absent: Pedal Edema - Neurological Exam Neurological Exam: Alert, Awake - Psychiatric Exam Psychiatric exam: Normal Affect - Skin Skin Exam: Normal Color Assessment and Plan - Assessment and Plan (Free Text) Assessment: 72 yo F with PMHx of COPD, obstructive sleep apnea, HTN, DM, anemia, bipolar disorder admitted to ICU for COPD exacerbation. Intubated 04/08 due to AMS secondary to hypercapnea, pCO2 120 on admission. COPD with Hypercapnea patient on BiPAP at night but was using nasal canula during the day repeat ABG done today 04/16 with pCO2 67, pO2 of 30- patient placed back on BiPAP and repeat ABG ordered continue duonebs q4h, solumedrol 40mg IV Q12h Blackouts Dr. Valentine, neurology, on board to evaluate whether patient's "blackouts" are associated with central sleep apnea plan for EEG to rule out seizure activity while inpatient and possible extended study as outpatient if inpatient study is negative HTN lisinopril 2.5mg po daily metoprolol 25mg PO BID Hypothyroidism synthroid 150mcg Depression continue lexapro 10mg PO daily Diabetes continue levemir 40u SCHS ISS hypoglycemia protocol Sleep apnea continue BiPAP Familial tremor Per Dr. Valentine, patient does not have Parkinson disase but has familial tremor plan to slowly taper off sinemet and start primidone and titrate up dose as tolerated Prophylactic measure heparin sc q8h- dose 7500u due to patient's weight 140kg protonix 40mg PO daily All management as per Dr. Foster
[2018-04-16 19:08] LABS: ABG ALLEN TEST POS; ARTERIAL BLOOD GAS HCO3 25.6 mmol/L (21-28); ARTERIAL BLOOD GAS O2 SAT 95.1 % (95-98); ARTERIAL BLOOD GAS PCO2 49 mm/Hg (35-45); ARTERIAL BLOOD GAS PH 7.35 (7.35-7.45); ARTERIAL BLOOD GAS PO2 66 mm/Hg (80-100); ARTERIAL BLOOD GAS TCO2 28.6 mmol/L (22-28)
[2018-04-16] MEDS: Rosuvastatin Calcium 2.5 mg Tab PO SCH (21:18)
[2018-04-16] MEDS: Insulin Detemir 100 units/ml Vial (Levemir) SC SCH (21:19)
[2018-04-17] MEDS: Vitamins A & D Oint UD Foilpak TOP SCH ×4 (00:17→17:27)
[2018-04-17] MEDS: Albuterol-Ipratrop 3 mg / 0.5 (3 ml) UD INH SCH ×3 (00:43→16:17)
[2018-04-17] MEDS: Levothyroxine 150 MCG TAB PO SCH (06:11)
[2018-04-17 07:16] LABS: BASO % 0.1 % (0.0-2.0); HEMOGLOBIN 11.5 g/dL (11.0-16.0); LYMPH # 1.4 K/uL (1.0-4.3); LYMPH % 11.4 % (20.0-40.0); MEAN CORPUSCULAR HGB CONC 32.1 g/dL (33.0-37.0); MEAN PLATELET VOLUME 10.1 fL (7.2-11.7); MONO # 0.7 K/uL (0.0-0.8); MONO % 5.9 % (0.0-10.0); NEUT # 10.4 K/uL (1.8-7.0); NEUT % 82.6 % (50.0-75.0); RBC 4.13 Mil/uL (3.80-5.20); RED CELL DISTRIBUTION WIDTH 15.8 % (11.5-14.5); WHITE BLOOD COUNT 12.6 K/uL (4.8-10.8)
[2018-04-17 07:38] LABS: ALB/GLOB RATIO 1.3 (1.0-2.1); ALBUMIN 3.4 g/dL (3.5-5.0); ALT/SGPT 46 U/L (9-52); AST/SGOT 15 U/L (14-36); BLOOD UREA NITROGEN 36 mg/dL (7-17); CALCIUM 8.2 mg/dl (8.6-10.4); GFR NON-AFRICAN AMERICAN > 60
[2018-04-17] MEDS: MethylPREDNISolone 40 mg Vial IVP SCH (08:09)
[2018-04-17] MEDS: (Novolin R) Insulin Human Regular 100 units/ml vial SC SCH ×3 (08:11→17:28)
--- NOTE | 2018-04-17 08:19 | CP.PCM.PN ---
Subjective - Date & Time of Evaluation Date of Evaluation: 04/17/18 Time of Evaluation: 08:00 - Subjective Subjective: Medicine progress note for Dr. Foster's service Patient is a 72 year old female s/p intubation 04/09 for AMS due to hypercapnea with subsequent extubation 04/10/18. Patient currently resting comfortably in bed eating breakfast. Patient reports breathing is more comfortable compared to previous days and she states she has been using her bipap machine. Per nurse patient has refused heparin sc x2 days. Objective - Vital Signs/Intake and Output Vital Signs (last 24 hours): Temp Pulse Resp BP Pulse Ox 98.8 F 71 20 145/86 95 04/16/18 23:15 04/17/18 04:26 04/16/18 23:15 04/16/18 23:15 04/16/18 23:15 Intake and Output: 04/17/18 04/17/18 06:59 18:59 Intake Total 1000 Output Total 2100 Balance -1100 - Medications Medications: Current Medications Albuterol/Ipratropium (Duoneb 3 Mg/0.5 Mg (3 Ml) Ud) 3 ml INH RQ4 [facility] Last Admin: 04/17/18 04:25 Dose: 3 ml Aspirin (Aspirin Chewable) 81 mg PO DAILY [facility] Last Admin: 04/16/18 09:40 Dose: 81 mg Carbidopa/Levodopa (Sinemet) 1 tab PO BID [facility] Last Admin: 04/16/18 17:49 Dose: 1 tab Dextrose (Dextrose 50% Inj) 0 ml IV STAT PRN; Protocol PRN Reason: Hypoglycemia Protocol Dextrose (Glutose 15) 0 gm PO ONCE PRN; Protocol PRN Reason: Hypoglycemia Protocol Escitalopram Oxalate (Lexapro) 10 mg PO DAILY [facility] Last Admin: 04/16/18 09:41 Dose: 10 mg Gabapentin (Neurontin) 300 mg PO BID [facility] Last Admin: 04/16/18 17:49 Dose: 300 mg Glucagon (Glucagen Diagnostic Kit) 0 mg IM STAT PRN; Protocol PRN Reason: Hypoglycemia Protocol Heparin Sodium (Porcine) (Heparin) 7,500 units SC Q8 [facility] Last Admin: 04/17/18 06:11 Dose: Not Given Insulin Detemir (Levemir) 40 unit SC HS [facility] Last Admin: 04/16/18 21:19 Dose: 40 u Insulin Human Regular (Novolin R) 0 unit SC ACHS [facility] PRN Reason: Protocol Last Admin: 04/17/18 08:11 Dose: 4 units Levothyroxine Sodium (Synthroid) 150 mcg PO DAILY@0630 [facility] Last Admin: 04/17/18 06:11 Dose: 150 mcg Lisinopril (Zestril) 2.5 mg PO DAILY [facility] Last Admin: 04/16/18 09:41 Dose: 2.5 mg Methylprednisolone (Solu-Medrol) 40 mg IVP Q12H [facility] Last Admin: 04/17/18 08:09 Dose: 40 mg Metoprolol Tartrate (Lopressor) 25 mg PO BID [facility] Last Admin: 04/16/18 17:49 Dose: 25 mg Montelukast Sodium (Singulair) 10 mg PO HS [facility] Last Admin: 04/16/18 21:18 Dose: 10 mg Pantoprazole Sodium (Protonix Ec Tab) 40 mg PO DAILY [facility] Last Admin: 04/16/18 09:41 Dose: 40 mg Primidone (Mysoline) 100 mg PO [facility] Rosuvastatin Calcium (Crestor) 2.5 mg PO [facility] Last Admin: 04/16/18 21:18 Dose: 2.5 mg Vitamin A (Vitamin A & D Oint Ud Foilpak) 1 ea TOP Q6 [facility] Last Admin: 04/17/18 06:11 Dose: 1 ea - Labs Labs: 04/17/18 06:48 04/17/18 06:48 PT 10.7 SECONDS (9.7-12.2) 04/08/18 21:38 INR 1.0 04/08/18 21:38 APTT 38 SECONDS (21-34) H 04/08/18 21:38 - Constitutional Appears: No Acute Distress, Chronically Ill, Other (morbidly obese) - Eye Exam Eye Exam: EOMI, Normal appearance - ENT Exam ENT Exam: Mucous Membranes Moist - Respiratory Exam Respiratory Exam: NORMAL BREATHING PATTERN - Cardiovascular Exam Cardiovascular Exam: REGULAR RHYTHM, +S1, +S2 - GI/Abdominal Exam GI & Abdominal Exam: Soft, Normal Bowel Sounds. absent: Tenderness - Extremities Exam Extremities Exam: absent: Pedal Edema - Neurological Exam Neurological Exam: Alert, Awake - Psychiatric Exam Psychiatric exam: Normal Affect - Skin Skin Exam: Normal Color Assessment and Plan - Assessment and Plan (Free Text) Assessment: 72 yo F with PMHx of COPD, obstructive sleep apnea, HTN, DM, anemia, bipolar disorder admitted to ICU for COPD exacerbation. Intubated 04/08 due to AMS secondary to hypercapnea, pCO2 120 on admission. COPD with Hypercapnea patient on BiPAP at night but was using nasal canula during the day repeat ABG done today 04/16 with pCO2 67, pO2 of 30- patient placed back on BiPAP and repeat ABG ordered continue duonebs q4h, solumedrol 40mg IV Q12h Blackouts Dr. Valentine, neurology, on board to evaluate whether patient's "blackouts" are associated with central sleep apnea plan for EEG to rule out seizure activity while inpatient and possible extended study as outpatient if inpatient study is negative HTN lisinopril 2.5mg po daily metoprolol 25mg PO BID Hypothyroidism synthroid 150mcg Depression continue lexapro 10mg PO daily Diabetes continue levemir 40u SCHS ISS hypoglycemia protocol Sleep apnea continue BiPAP Familial tremor Per Dr. Valentine, patient does not have Parkinson disase but has familial tremor plan to slowly taper off sinemet and start primidone and titrate up dose as tolerated; per Dr. Valentine patient is stable for discharge and to follow up outpatient. Prophylactic measure heparin sc q8h- dose 7500u due to patient's weight 140kg protonix 40mg PO daily Patient stable for discharge back to LTC at [place]. All management as per Dr. Foster
[2018-04-17 09:11] VITALS: O2SAT 98
[2018-04-17] MEDS: Pantoprazole 40 mg EC Tab PO SCH (10:15)
[2018-04-17 10:45] LABS: CERULOPLASMIN 20 mg/dL (18-53)
--- NOTE | 2018-04-17 10:59 | PN ---
Copied To: Homer Valentine MD Attending MD: Homer Valentine MD DATE: 04/17/2018 NEUROLOGICAL PROBLEM: Blackout spell with central apnea and hypoventilation syndrome. PHYSICAL EXAMINATION: VITAL SIGNS: Her blood pressure 145/86, mean arterial pressure of 105, respiratory rate 18 to 20 on BiPAP, pulse rate 60 regular with temperature 98.8. The patient is sleepy, easily arousable on calling her name. Her tremor is somewhat slightly decreased. She blames that her sleep is somewhat better than previous nights. The patient is tolerating well with primidone. RECOMMENDATIONS: Primidone dose is increased to mg, that I will keep her on this current dose and the dose can be titrated as she tolerated as an outpatient. From neurological point of view, the patient is stable and can be discharged. She is medically stable and the patient is advised to see me as outpatient for followup. Homer Valentine MD
--- NOTE | 2018-04-17 11:27 | CP.PCM.PN ---
Subjective - Date & Time of Evaluation Date of Evaluation: 04/17/18 Time of Evaluation: 11:00 - Subjective Subjective: patient seen and examined On BiPAP Patient is awake and responsive Afebrile Objective - Vital Signs/Intake and Output Vital Signs (last 24 hours): Temp Pulse Resp BP Pulse Ox 97.5 F L 60 20 160/77 H 98 04/17/18 07:15 04/17/18 07:15 04/17/18 07:15 04/17/18 10:15 04/17/18 07:15 Intake and Output: 04/17/18 04/17/18 06:59 18:59 Intake Total 1000 Output Total 2100 Balance -1100 - Medications Medications: Current Medications Albuterol/Ipratropium (Duoneb 3 Mg/0.5 Mg (3 Ml) Ud) 3 ml INH RQ4 [facility] Last Admin: 04/17/18 04:25 Dose: 3 ml Aspirin (Aspirin Chewable) 81 mg PO DAILY [facility] Last Admin: 04/17/18 10:15 Dose: 81 mg Carbidopa/Levodopa (Sinemet) 1 tab PO BID [facility] Last Admin: 04/17/18 10:15 Dose: 1 tab Dextrose (Dextrose 50% Inj) 0 ml IV STAT PRN; Protocol PRN Reason: Hypoglycemia Protocol Dextrose (Glutose 15) 0 gm PO ONCE PRN; Protocol PRN Reason: Hypoglycemia Protocol Escitalopram Oxalate (Lexapro) 10 mg PO DAILY [facility] Last Admin: 04/17/18 10:15 Dose: 10 mg Gabapentin (Neurontin) 300 mg PO BID [facility] Last Admin: 04/17/18 10:15 Dose: 300 mg Glucagon (Glucagen Diagnostic Kit) 0 mg IM STAT PRN; Protocol PRN Reason: Hypoglycemia Protocol Heparin Sodium (Porcine) (Heparin) 7,500 units SC Q8 [facility] Last Admin: 04/17/18 06:11 Dose: Not Given Insulin Detemir (Levemir) 40 unit SC HS [facility] Last Admin: 04/16/18 21:19 Dose: 40 u Insulin Human Regular (Novolin R) 0 unit SC ACHS [facility] PRN Reason: Protocol Last Admin: 04/17/18 08:11 Dose: 4 units Levothyroxine Sodium (Synthroid) 150 mcg PO DAILY@0630 [facility] Last Admin: 04/17/18 06:11 Dose: 150 mcg Lisinopril (Zestril) 2.5 mg PO DAILY [facility] Last Admin: 04/17/18 10:16 Dose: 2.5 mg Methylprednisolone (Solu-Medrol) 40 mg IVP Q12H [facility] Last Admin: 04/17/18 08:09 Dose: 40 mg Metoprolol Tartrate (Lopressor) 25 mg PO BID [facility] Last Admin: 04/17/18 10:15 Dose: 25 mg Montelukast Sodium (Singulair) 10 mg PO HS [facility] Last Admin: 04/16/18 21:18 Dose: 10 mg Pantoprazole Sodium (Protonix Ec Tab) 40 mg PO DAILY [facility] Last Admin: 04/17/18 10:15 Dose: 40 mg Primidone (Mysoline) 100 mg PO [facility] Rosuvastatin Calcium (Crestor) 2.5 mg PO HS [facility] Last Admin: 04/16/18 21:18 Dose: 2.5 mg Vitamin A (Vitamin A & D Oint Ud Foilpak) 1 ea TOP Q6 [facility] Last Admin: 04/17/18 06:11 Dose: 1 ea - Labs Labs: 04/17/18 06:48 04/17/18 06:48 PT 10.7 SECONDS (9.7-12.2) 04/08/18 21:38 INR 1.0 04/08/18 21:38 APTT 38 SECONDS (21-34) H 04/08/18 21:38 - Head Exam Head Exam: ATRAUMATIC, NORMOCEPHALIC - ENT Exam ENT Exam: Mucous Membranes Moist - Neck Exam Neck Exam: Normal Inspection - Respiratory Exam Respiratory Exam: Decreased Breath Sounds - Cardiovascular Exam Cardiovascular Exam: REGULAR RHYTHM Assessment and Plan (1) COPD (chronic obstructive pulmonary disease) Assessment & Plan: Patient advised to use BiPAP Nebulizer treatment and steroids Okay to discharge to alf Status: Acute (2) FESTUS (obstructive sleep apnea) Status: Acute
[2018-04-17 15:57] VITALS: BP 148/84; TEMP 98.1
[2018-04-18 00:51] VITALS: PULSE 57
== END 2018-04-17 18:20 | DRG 208 ==
LOC: C.ER 20:04 → SUPCPDRO 20:04 → C.9I 04-09 00:28 → C.9E 04-09 00:28 → C.6T 04-11 23:50
PROVIDERS: ADMIT Internal Medicine Nephrology; ATTEND Internal Medicine Nephrology
PROC: 5A09357 Assistance with Respiratory Ventilation, Less than 24 Consecutive Hours, Continuous Positive Airway Pressure (ICD-10-PCS; 2018-04-08)
PROC: 5A1945Z Respiratory Ventilation, 24-96 Consecutive Hours (ICD-10-PCS; principal; 2018-04-09)
PROC: 0BH18EZ Insertion of Endotracheal Airway into Trachea, Via Natural or Artificial Opening Endoscopic (ICD-10-PCS; 2018-04-09)
PROC: 5A09557 Assistance with Respiratory Ventilation, Greater than 96 Consecutive Hours, Continuous Positive Airway Pressure (ICD-10-PCS; 2018-04-10)
DX: J96.02 Acute respiratory failure with hypercapnia (principal); J44.1 Chronic obstructive pulmonary disease with (acute) exacerbation; J06.9 Acute upper respiratory infection, unspecified; I10 Essential (primary) hypertension; G90.09 Other idiopathic peripheral autonomic neuropathy; G25.0 Essential tremor; R56.9 Unspecified convulsions; B34.9 Viral infection, unspecified; G47.31 Primary central sleep apnea; G20 Parkinson's disease; K21.9 Gastro-esophageal reflux disease without esophagitis; E66.01 Morbid (severe) obesity due to excess calories; Z96.651 Presence of right artificial knee joint; Z68.42 Body mass index [BMI] 45.0-49.9, adult; Z87.440 Personal history of urinary (tract) infections; Z87.891 Personal history of nicotine dependence; Z90.710 Acquired absence of both cervix and uterus; Z66 Do not resuscitate

== ENCOUNTER 2018-05-02 15:04 | Inpatient (IN) | payer MEDICARE, MEDICAID ==
[2018-05-02 15:15] VITALS: BMI 55.0
[2018-05-02] MEDS ORDERED: Naloxone 0.4 mg/ml Inj (Adult) ONE (15:16)
[2018-05-02] MEDS ORDERED: Naloxone 0.4 mg/ml Inj (Adult) IVP STA (15:16)
[2018-05-02] MEDS ORDERED: Iodixanol 320 MG/ML 100 ML BOTTLE IV ONE (15:22)
[2018-05-02 15:29] LABS: BASO # 0.1 K/uL (0.0-0.2); BASO % 0.7 % (0.0-2.0); EOS # 0.1 K/uL (0.0-0.7); EOS % 0.5 % (0.0-4.0); HEMOGLOBIN 12.4 g/dL (11.0-16.0); LYMPH # 1.1 K/uL (1.0-4.3); MEAN CORPUSCULAR HEMOGLOBIN 28.3 pg (27.0-31.0); MEAN CORPUSCULAR HGB CONC 31.5 g/dL (33.0-37.0); MEAN PLATELET VOLUME 8.9 fL (7.2-11.7); MONO # 0.4 K/uL (0.0-0.8); MONO % 2.9 % (0.0-10.0); NEUT # 12.2 K/uL (1.8-7.0); NEUT % 87.9 % (50.0-75.0); PLATELET COUNT 224 K/uL (130-400); RBC 4.38 Mil/uL (3.80-5.20); RED CELL DISTRIBUTION WIDTH 15.2 % (11.5-14.5); WHITE BLOOD COUNT 13.9 K/uL (4.8-10.8)
[2018-05-02 15:31] LABS: MEAN CELL VOLUME 89.7 fL (81.0-99.0)
[2018-05-02 15:38] LABS: INR 0.9; PROTHROMBIN TIME 10.1 SECONDS (9.7-12.2)
--- NOTE | 2018-05-02 15:55 | CT ---
Date of service: 05/02/2018 PROCEDURE: CT HEAD WITHOUT CONTRAST. HISTORY: Code Stroke COMPARISON: 04/15/2018. TECHNIQUE: Axial computed tomography images were obtained through the head/brain without intravenous contrast. Radiation dose: Total exam DLP = 5328.23 mGy-cm. This CT exam was performed using one or more of the following dose reduction techniques: Automated exposure control, adjustment of the mA and/or kV according to patient size, and/or use of iterative reconstruction technique. FINDINGS: HEMORRHAGE: No intracranial hemorrhage. BRAIN: There is no mass, mass effect or abnormal extra-axial fluid collection. There is no territorial infarction. The midline sagittal structures are normal. VENTRICLES: There is mild age-related global parenchymal volume loss and proportionate enlargement of the ventricles and cortical sulci. CALVARIUM: The skull base and calvarium are normal. PARANASAL SINUSES: There is mild chronic maxillary sinusitis. The remaining included paranasal sinuses are clear. MASTOID AIR CELLS: Predominantly clear. OTHER FINDINGS: None. IMPRESSION: No acute intracranial abnormality. Mild age-related global parenchymal volume loss. Important findings were discussed with Dr. Chinedu SAEZ on 05/02/2018 at 3:50 p.m..
[2018-05-02 15:56] LABS: LDL CHOLESTEROL 67 mg/dL (0-129)
[2018-05-02 16:03] LABS: ALB/GLOB RATIO 1.2 (1.0-2.1); ALT/SGPT 11 U/L (9-52); AST/SGOT 18 U/L (14-36); BLOOD UREA NITROGEN 18 mg/dL (7-17); GFR NON-AFRICAN AMERICAN > 60; HDL CHOLESTEROL 68 mg/dL (30-70)
[2018-05-02 16:17] LABS: LYMPHOCYTE 12 % (20-40); MONOCYTE 2 % (0-10); NEUTROPHIL 86 % (50-75); PLATELET ESTIMATE NORMAL (NORMAL); TOTAL CELLS COUNTED 100
--- NOTE | 2018-05-02 16:27 | RAD ---
Date of service: 05/02/2018 HISTORY: Code Stroke COMPARISON: 04/09/2018. FINDINGS: LUNGS: There are low lung volumes. PLEURA: No significant pleural effusion identified, no pneumothorax apparent. CARDIOVASCULAR: There is moderate cardiomegaly. OSSEOUS STRUCTURES: No significant abnormalities. VISUALIZED UPPER ABDOMEN: Normal. OTHER FINDINGS: None. IMPRESSION: Low lung volumes may be related to poor inspiratory effort. Moderate cardiomegaly.
[2018-05-02 16:48] LABS: ARTERIAL BLOOD GAS HCO3 36.3 mmol/L (21-28); ARTERIAL BLOOD GAS O2 SAT 97.7 % (95-98); ARTERIAL BLOOD GAS PCO2 107 mm/Hg (35-45); ARTERIAL BLOOD GAS PH 7.25 (7.35-7.45); ARTERIAL BLOOD GAS PO2 95 mm/Hg (80-100); ARTERIAL BLOOD GAS TCO2 50.2 mmol/L (22-28)
[2018-05-02] MEDS ORDERED: Albuterol-Ipratrop 3 mg / 0.5 (3 ml) UD ONE (16:58)
[2018-05-02] MEDS ORDERED: Sodium Chloride 0.9% 1,000 ML IV ONE (17:40)
--- NOTE | 2018-05-02 18:52 | CP.PCM.CON ---
History of Present Illness - History of Present Illness History of Present Illness: ICU consult note HPI: 72-year-old female with history of COPD, sleep apnea, bipolar disorder, depression, Parkinson's disease who [facility]. Patient found to have elevated pCO2, was placed on BiPAP and admitted to ICU. PMHx: Anemia, Anxiety, Arthritis, Bipolar Disorder, COPD, Depression, HTN, Hypothyroidism, Parkinson's, Sleep Apnea PSHx: Right knee fusion, 1 ovary removed, uterine/ovarian cyst removal, C- sections, hysterectomy FHx: HTN-mother, aunt, uncle; DM-son; Breast cysts-mother Allergies: Cephalosporins, penicillins, clonazepam, mustard Social History: Smoked 5 cigs/day for 40 yrs, quit 10 yrs ago. Denies EtOH and drug use Review of Systems - Review of Systems Systems not reviewed;Unavailable: Altered Mental Status Past Patient History - Infectious Disease Hx of Infectious Diseases: None, VRE - Tetanus Immunizations Tetanus Immunization: Unknown - Past Medical History & Family History Past Medical History?: Yes - Past Social History Smoking Status: Never Smoked - CARDIAC Hx Cardiac Disorders: Yes Hx Angina: Yes Hx Hypertension: Yes - PULMONARY Hx Respiratory Disorders: Yes Hx Chronic Obstructive Pulmonary Disease (COPD): Yes Hx Sleep Apnea: Yes (on Bipap) - NEUROLOGICAL Hx Neurological Disorder: Yes Hx Dementia: Yes Hx Parkinson's Disease: Yes - HEENT Hx HEENT Problems: No - RENAL Hx Chronic Kidney Disease: No - ENDOCRINE/METABOLIC Hx Endocrine Disorders: Yes Hx Hypothyroidism: Yes - HEMATOLOGICAL/ONCOLOGICAL Hx Blood Disorders: Yes Hx Anemia: Yes - INTEGUMENTARY Hx Dermatological Problems: No - MUSCULOSKELETAL/RHEUMATOLOGICAL Hx Musculoskeletal Disorders: Yes Hx Arthritis: Yes - GASTROINTESTINAL Hx Gastrointestinal Disorders: Yes Hx Constipation: Yes Hx Gastroesophageal Reflux: Yes - GENITOURINARY/GYNECOLOGICAL Hx Genitourinary Disorders: Yes Hx Incontinence: Yes Hx Urinary Tract Infection: Yes - PSYCHIATRIC Hx Psychophysiologic Disorder: Yes Hx Anxiety: Yes Hx Bipolar Disorder: Yes Hx Depression: Yes Hx Substance Use: No - SURGICAL HISTORY Hx Surgeries: Yes Hx Hysterectomy: Yes Hx Orthopedic Surgery: Yes Other/Comment: right knee replacement 2014; right knee prosthesis removal s/p infection 2014 - ANESTHESIA Hx Anesthesia: Yes Hx Anesthesia Reactions: No Hx Malignant Hyperthermia: No Meds Allergies/Adverse Reactions: Allergies Allergy/AdvReac Type Severity Reaction Status Date / Time Cephalosporins Allergy Intermediate RASH Verified 05/02/18 15:14 Penicillins Allergy Intermediate RASH Verified 05/02/18 15:14 clonazepam [From Klonopin] Allergy Verified 05/02/18 15:14 mustard Allergy Intermediate RASH Uncoded 04/08/18 20:07 - Medications Medications: Current Medications Albuterol/Ipratropium (Duoneb 3 Mg/0.5 Mg (3 Ml) Ud) 3 ml INH RQ4 TIMOTEO Azithromycin 500 mg/ Sodium (Chloride) 250 mls @ 250 mls/hr IVPB DAILY TIMOTEO PRN Reason: Protocol Physical Exam - Constitutional Additional comments: Somnolent, opens eyes occasionally to pain - Head Exam Head Exam: ATRAUMATIC, NORMOCEPHALIC - Eye Exam Eye Exam: EOMI - ENT Exam ENT Exam: Mucous Membranes Moist - Respiratory Exam Respiratory Exam: Decreased Breath Sounds, Prolonged Expiratory Phase - Cardiovascular Exam Cardiovascular Exam: REGULAR RHYTHM, +S1, +S2 - GI/Abdominal Exam GI & Abdominal Exam: Soft. absent: Tenderness Additional comments: Obese abdomen - Extremities Exam Extremities exam: Positive for: pedal pulses present. Negative for: calf tenderness, pedal edema - Neurological Exam Additional comments: Somnolent Results - Vital Signs Recent Vital Signs: Last Vital Signs Temp 97.1 F L 05/02/18 16:12 Pulse 69 05/02/18 18:03 Resp 18 05/02/18 18:03 BP 108/70 05/02/18 18:03 Pulse Ox 100 05/02/18 18:03 - Labs Result Diagrams: 05/02/18 15:25 05/02/18 15:25 Labs: Laboratory Results - last 24 hr 05/02/18 05/02/18 05/02/18 15:07 15:25 15:25 WBC 13.9 H RBC 4.38 Hgb 12.4 Hct 39.3 MCV 89.7 D MCH 28.3 MCHC 31.5 L RDW 15.2 H Plt Count 224 MPV 8.9 Neut % (Auto) 87.9 H Lymph % (Auto) 8.0 L [place] % (Auto) 2.9 Eos % (Auto) 0.5 Baso % (Auto) 0.7 Neut # (Auto) 12.2 H Lymph # (Auto) 1.1 [place] # (Auto) 0.4 Eos # (Auto) 0.1 Baso # (Auto) 0.1 Neutrophils % (Manual) 86 H Lymphocytes % (Manual) 12 L Monocytes % (Manual) 2 Platelet Estimate Normal PT 10.1 INR 0.9 APTT 36 H Puncture Site pCO2 pO2 HCO3 ABG pH ABG Total CO2 ABG O2 Saturation ABG Base Excess Donta Test ABG Potassium A-a O2 Difference Respiratory Index Glucose Lactate Mechanical Rate FiO2 Inspiratory BiPAP Expiratory BiPAP Crit Value Called To Crit Value Called By Crit Value Read Back Blood Gas Notified Time Sodium Potassium Chloride Carbon Dioxide Anion Gap BUN Creatinine Est GFR ( Amer) Est GFR (Non-Af Amer) POC Glucose (mg/dL) 157 H Random Glucose Hemoglobin A1c Calcium Total Bilirubin AST ALT Alkaline Phosphatase Troponin I Total Protein Albumin Globulin Albumin/Globulin Ratio Triglycerides Cholesterol LDL Cholesterol Direct HDL Cholesterol Arterial Blood Potassium 05/02/18 05/02/18 05/02/18 15:25 15:25 16:40 WBC RBC Hgb Hct MCV MCH MCHC RDW Plt Count MPV Neut % (Auto) Lymph % (Auto) [place] % (Auto) Eos % (Auto) Baso % (Auto) Neut # (Auto) Lymph # (Auto) [place] # (Auto) Eos # (Auto) Baso # (Auto) Neutrophils % (Manual) Lymphocytes % (Manual) Monocytes % (Manual) Platelet Estimate PT INR APTT Puncture Site Rb pCO2 107 H* pO2 95 HCO3 36.3 H ABG pH 7.25 L ABG Total CO2 50.2 H ABG O2 Saturation 97.7 ABG Base Excess 14.6 H Donta Test Na ABG Potassium 3.6 A-a O2 Difference 56.0 Respiratory Index 0.6 Glucose 168 H Lactate 0.5 L Mechanical Rate 18 FiO2 40.0 Inspiratory BiPAP 16 Expiratory BiPAP 8 Crit Value Called To Bonnie gary Crit Value Called By Domonique collier Crit Value Read Back Y Blood Gas Notified Time 1646 Sodium 138 137.0 Potassium 4.9 Chloride 86 L 94.0 L Carbon Dioxide 43 H* D Anion Gap 14 BUN 18 H Creatinine 0.5 L Est GFR ( Amer) > 60 Est GFR (Non-Af Amer) > 60 POC Glucose (mg/dL) Random Glucose 158 H Hemoglobin A1c 6.8 H Calcium 9.0 Total Bilirubin 0.6 AST 18 ALT 11 Alkaline Phosphatase 75 Troponin I 0.0200 Total Protein 7.3 Albumin 4.0 Globulin 3.3 Albumin/Globulin Ratio 1.2 Triglycerides 84 Cholesterol 174 LDL Cholesterol Direct 67 HDL Cholesterol 68 Arterial Blood Potassium 3.6 Assessment & Plan - Assessment and Plan (Free Text) Assessment: 72 year old female with history of COPD, sleep apnea, bipolar disorder, depression, Parkinson's disease, who [facility] for shortness of breath and chest pressure. She was found to be hypercapneic and in respiratory distress. She was placed on BIPAP and admitted to ICU. Plan: Neuro Somnolent CT head No acute intracranial abnormality.Mild age-related global parenchymal volume loss. Cardiovascular Continue to monitor BP D5 NS @ 100cc/hr IV Pulmonary CXR Low lung volumes may be related to poor inspiratory effort. Moderate cardiomegaly. ABG pH 7.25 CO2 107 O2 95 HCO3 37 Azithromycin 500mg IV Duonebs Q4 Solumedrol 60mg Q8 GI Pepcid 20mg PO Renal BUN/Cr 18/0.5 Continue to monitor I&Os D5/NS @ 100cc/hr IV ID Monitor white count Endo A1c 6.8 ISS Heme H/H 12.4/39.3 PPX: Pepcid, Lovenox Case discussed with Dr. Burton
--- NOTE | 2018-05-02 19:42 | C.PDOC ---
History Of Present Illness 72-year-old female, presents to the emergency department via BLS for "lethargy" . Pt sent in from long-term, unknown when symptoms started. Pt has a Hx of hypercapnic respiratory failure. Due to presentation, code stroke was called. Pt offered no complaint. She is full code as per family. Chief Complaint (Nursing): Weakness/Neurological Deficit History Per: EMS, Family History/Exam Limitations: clinical condition Past Medical History Reviewed: Historical Data, Nursing Documentation, Vital Signs Vital Signs: Last Vital Signs Temp 97 F L 05/03/18 00:30 Pulse 73 05/03/18 00:06 Resp 20 05/03/18 00:06 BP 119/32 L 05/03/18 00:06 Pulse Ox 95 05/03/18 00:06 - Medical History PMH: Anemia, Anxiety, Arthritis, Bipolar Disorder, COPD, Dementia, Depression, HTN, Hypothyroidism, Parkinson's Disease, Sleep Apnea (on Bipap) - [facility] Procedures ASSISTANCE WITH RESPIRATORY VENTILATION, 24-96 HRS, CPAP (03/02/18) ASSISTANCE WITH RESPIRATORY VENTILATION, <24 HRS, CPAP (04/09/18) ASSISTANCE WITH RESPIRATORY VENTILATION, >96 HRS, CPAP (04/09/18) CONTINUOUS INVASIVE MECHANICAL VENTILATION <96 CONSEC HRS (12/29/12) CONTINUOUS INVASIVE MECHANICAL VENTILATION =/>96 CONSEC HRS (02/28/13) DX ULTRASOUND-HEART (08/29/13) EXCISION OF RIGHT BREAST, OPEN APPROACH, DIAGNOSTIC (09/18/15) INCIS W REM OF FORIEGN BODY OR DEV FROM SKIN & SUBCUT TISSUE (08/29/13) INSERT ENDOTRACHEAL TUBE (02/28/13) INSERT INDWELLING CATH (12/26/12) INSERTION OF ENDOTRACHEAL AIRWAY INTO TRACHEA, ENDO (04/09/18) INSERTION OF ENDOTRACHEAL AIRWAY INTO TRACHEA, VIA OPENING (07/14/17) INSERTION OF INFUSION DEV INTO SUP VENA CAVA, PERC APPROACH (10/21/16) INSERTION OF INFUSION DEVICE INTO R BRACH ART, PERC APPROACH (12/11/17) NON-INVASIVE MECHANICAL VENTILATION (08/29/13) RESPIRATORY VENTILATION, 24-96 CONSECUTIVE HOURS (04/09/18) Family History: States: No Known Family Hx - Social History Hx Tobacco Use: (Unknown) Hx Alcohol Use: No Hx Substance Use: No - Immunization History Hx Tetanus Toxoid Vaccination: No Hx Influenza Vaccination: No Hx Pneumococcal Vaccination: No Review Of Systems Review Of Systems: ROS cannot be obtained secondary to pt's inabilty to answer questions. Physical Exam - Physical Exam Appears: Other (Minimal response with sternal rub) Skin: Warm, Dry, No Rash Head: Atraumatic, Normacephalic Eye(s): bilateral: Other (Constricted but reactive) Nose: Normal Oral Mucosa: Moist Lips: Normal Appearing Neck: Normal ROM Cardiovascular: Rhythm Regular, No Murmur Respiratory: Normal Breath Sounds, No Accessory Muscle Use Gastrointestinal/Abdominal: Soft, No Tenderness Extremity: Other (BL lower extremity edema.) ED Course And Treatment - Laboratory Results Result Diagrams: 05/02/18 15:25 05/02/18 15:25 Interpretation Of ECG: first degree AV block Rate From EC O2 Sat by Pulse Oximetry: 100 Pulse Ox Interpretation: Normal (RA) Critical Care Time - Critical Care Note Total Time (in mins): 75 Documented critical care: time excludes all time spent performing seperately billable procedures. Medical Decision Making Medical Decision Making: Case discussed with Dr Burton. Pt placed on BiPAP, states to hold off intubation at this time as pt is becoming more responsive Disposition - Disposition Disposition: HOSPITALIZED Disposition Time: 16:20 Condition: SERIOUS - Clinical Impression Clinical Impression: Acute respiratory failure with hypoxia and hypercapnia, FESTUS (obstructive sleep apnea) - Scribe Statement The provider has reviewed the documentation as recorded by the Scribe (Andrey Shin) Provider Attestation: All medical record entries made by the Scribe were at my direction and personally dictated by me. I have reviewed the chart and agree that the record accurately reflects my personal performance of the history, physical exam, medical decision making, and the department course for this patient. I have also personally directed, reviewed, and agree with the discharge instructions and disposition.
[2018-05-02] MEDS: Albuterol-Ipratrop 3 mg / 0.5 (3 ml) UD INH SCH (19:56)
[2018-05-02 20:46] LABS: ARTERIAL BLOOD GAS O2 SAT 98.6 % (95-98); ARTERIAL BLOOD GAS PCO2 113 mm/Hg (35-45); ARTERIAL BLOOD GAS PH 7.19 (7.35-7.45); ARTERIAL BLOOD GAS PO2 118 mm/Hg (80-100); ARTERIAL BLOOD GAS TCO2 46.7 mmol/L (22-28)
[2018-05-02] MEDS: Dextrose 5%/0.9% NS 1,000 ML IV SCH (21:00)
[2018-05-02] MEDS ORDERED: DOPamine 400mg/250ml D5W 400 MG/250 ML BAG IV PRN (21:49)
[2018-05-02] MEDS: (Novolin R) Insulin Human Regular 100 units/ml vial SC SCH (22:22)
[2018-05-02 22:29] LABS: ARTERIAL BLOOD GAS HCO3 27.3 mmol/L (21-28); ARTERIAL BLOOD GAS O2 SAT 93.8 % (95-98); ARTERIAL BLOOD GAS PCO2 69 mm/Hg (35-45); ARTERIAL BLOOD GAS PH 7.28 (7.35-7.45); ARTERIAL BLOOD GAS PO2 58 mm/Hg (80-100); ARTERIAL BLOOD GAS TCO2 34.5 mmol/L (22-28)
--- NOTE | 2018-05-02 22:48 | PCM.PROC ---
Procedures Attestation:: I certify that I have explained the specified Operation(s) or Procedure(s), risks, benefits and reasonable alternatives to the Patient and/or other person responsible. The opportunity was given to ask questions and all questions answered - Central Line Placement Right Femoral Triple Lumen Catheter Aseptic technique was employed throughout the procedure: Hand Hygiene done prior to procedure, Full sterile barriers (mask, hair cover, sterile gown, sterile gloves), Full body sterile drape, Chloraprep Antiseptic: 2 minute prep for Femoral Pt. Placed on Pulse Ox Monitor: Yes Central Line Prep: Povidone-Iodine 1% Local Anesthesia Used: Lidocaine 1% Amount of Anesthesia Used (mls): 5 Ultrasound Used for Placement: No Central Line Lumen Inserted: triple Post Procedure: Sutured in Place Secured by: Suture Post procedure dressing: Chlorhexidine disc (Biopatch) Post Procedure X-Ray: No Patient Tolerated Procedure: Well Additional Comments: patient hypotensive,intubated unable to give consent was unable to contact family Central line placed under emergency condition
[2018-05-02 23:11] LABS: SQUAMOUS EPITHIAL 1 /hpf (0-5); URINE BACTERIA RARE (<OCC); URINE BILIRUBIN NEGATIVE (NEGATIVE); URINE BLOOD NEGATIVE (NEGATIVE); URINE CLARITY Hazy (Clear); URINE COLOR Yellow (YELLOW); URINE GLUCOSE (UA) NORMAL (Normal); URINE LEUKOCYTE ESTERASE NEG Leu/uL (Negative); URINE PROTEIN 1+ mg/dL (NEGATIVE); URINE UROBILINOGEN NORMAL mg/dL (0.2-1.0)
[2018-05-02] MEDS: Aztreonam 2 GM in Sodium Chloride 0.9% 100 ML IVPB SCH (23:48)
[2018-05-03] MEDS: Albuterol-Ipratrop 3 mg / 0.5 (3 ml) UD INH SCH ×6 (00:31→19:37)
[2018-05-03 05:47] LABS: ABG ALLEN TEST POS; ARTERIAL BLOOD GAS HCO3 34.5 mmol/L (21-28); ARTERIAL BLOOD GAS HEMOGLOBIN 11.2 g/dL (11.7-17.4); ARTERIAL BLOOD GAS PCO2 70 mm/Hg (35-45); ARTERIAL BLOOD GAS PH 7.37 (7.35-7.45); ARTERIAL BLOOD GAS PO2 45 mm/Hg (80-100); ARTERIAL BLOOD GAS TCO2 42.6 mmol/L (22-28)
[2018-05-03] MEDS: Aztreonam 2 GM in Sodium Chloride 0.9% 100 ML IVPB SCH ×2 (06:01→15:00)
[2018-05-03] MEDS: Dextrose 5%/0.9% NS 1,000 ML IV SCH ×2 (06:02→11:30)
[2018-05-03 06:28] LABS: HEMOGLOBIN 11.4 g/dL (11.0-16.0); LYMPH # 0.5 K/uL (1.0-4.3); LYMPH % 4.4 % (20.0-40.0); MEAN CELL VOLUME 89.9 fL (81.0-99.0); MEAN CORPUSCULAR HEMOGLOBIN 28.8 pg (27.0-31.0); MEAN PLATELET VOLUME 9.3 fL (7.2-11.7); MONO # 0.1 K/uL (0.0-0.8); NEUT # 10.3 K/uL (1.8-7.0); NEUT % 94.6 % (50.0-75.0); PLATELET COUNT 200 K/uL (130-400); RBC 3.97 Mil/uL (3.80-5.20); RED CELL DISTRIBUTION WIDTH 15.1 % (11.5-14.5); WHITE BLOOD COUNT 10.9 K/uL (4.8-10.8)
[2018-05-03 06:45] LABS: ALB/GLOB RATIO 1.5 (1.0-2.1); ALT/SGPT 10 U/L (9-52); AST/SGOT 9 U/L (14-36); BLOOD UREA NITROGEN 21 mg/dL (7-17); CALCIUM 8.8 mg/dl (8.6-10.4); GFR NON-AFRICAN AMERICAN > 60
--- NOTE | 2018-05-03 07:15 | CP.PCM.CON ---
History of Present Illness - History of Present Illness History of Present Illness: I was asked to evaluate patient by Dr Lor Foster. Patient is a 72 year old female with history of HTN obesity/hypoventilation who presents from [facility] with altered mental status. Patient is a poor historian and is not able to give an adequate history. She previously was admitted to [facility] with dyspnea. There is a current concern for CVA. Review of Systems - Review of Systems Systems not reviewed;Unavailable: Altered Mental Status Past Patient History - Infectious Disease Hx of Infectious Diseases: None, VRE - Tetanus Immunizations Tetanus Immunization: Unknown - Past Medical History & Family History Past Medical History?: Yes - Past Social History Smoking Status: Never Smoked - CARDIAC Hx Hypertension: Yes - PULMONARY Hx Chronic Obstructive Pulmonary Disease (COPD): Yes Hx Sleep Apnea: Yes (on Bipap) - NEUROLOGICAL Hx Dementia: Yes Hx Parkinson's Disease: Yes - HEENT Hx HEENT Problems: No - RENAL Hx Chronic Kidney Disease: No - ENDOCRINE/METABOLIC Hx Hypothyroidism: Yes - HEMATOLOGICAL/ONCOLOGICAL Hx Anemia: Yes - INTEGUMENTARY Hx Dermatological Problems: No - MUSCULOSKELETAL/RHEUMATOLOGICAL Hx Arthritis: Yes - GASTROINTESTINAL Hx Gastrointestinal Disorders: Yes Hx Constipation: Yes Hx Gastroesophageal Reflux: Yes - GENITOURINARY/GYNECOLOGICAL Hx Genitourinary Disorders: Yes Hx Incontinence: Yes Hx Urinary Tract Infection: Yes - PSYCHIATRIC Hx Anxiety: Yes Hx Bipolar Disorder: Yes Hx Depression: Yes Hx Substance Use: No - SURGICAL HISTORY Hx Surgeries: Yes Hx Hysterectomy: Yes Hx Orthopedic Surgery: Yes Other/Comment: right knee replacement 2014; right knee prosthesis removal s/p infection 2014 - ANESTHESIA Hx Anesthesia: Yes Hx Anesthesia Reactions: No Hx Malignant Hyperthermia: No Meds Allergies/Adverse Reactions: Allergies Allergy/AdvReac Type Severity Reaction Status Date / Time Cephalosporins Allergy Intermediate RASH Verified 05/02/18 15:14 Penicillins Allergy Intermediate RASH Verified 05/02/18 15:14 clonazepam [From Klonopin] Allergy Verified 05/02/18 15:14 mustard Allergy Intermediate RASH Uncoded 04/08/18 20:07 - Medications Medications: Current Medications Albuterol/Ipratropium (Duoneb 3 Mg/0.5 Mg (3 Ml) Ud) 3 ml INH RQ4 [facility] Last Admin: 05/03/18 03:07 Dose: 3 ml Enoxaparin Sodium (Lovenox) 30 mg SC DAILY [facility] Famotidine (Pepcid) 20 mg IVP DAILY [facility] Azithromycin 500 mg/ Sodium (Chloride) 250 mls @ 250 mls/hr IVPB DAILY [facility] PRN Reason: Protocol Dextrose/Sodium Chloride (Dextrose 5%/0.9% Ns 1000 Ml) 1,000 mls @ 100 mls/hr IV .Q10H [facility] Last Admin: 05/03/18 06:02 Dose: Not Given Dopamine HCl/Dextrose (Dopamine 400mg/250ml D5w) 400 mg in 250 mls @ 10.247 mls /hr IV .Q24H PRN; Protocol; 2 MCG/KG/MIN PRN Reason: TITRATE PER MD ORDER Last Titration: 05/03/18 06:00 Dose: 0 mcg/kg/min, 0 mls/hr Aztreonam 2 gm/ Sodium (Chloride) 100 mls @ 200 mls/hr IVPB Q8H [facility] PRN Reason: Protocol Last Admin: 05/03/18 06:01 Dose: 200 mls/hr Insulin Human Regular (Novolin R) 0 unit SC ACHS [facility] PRN Reason: Protocol Last Admin: 05/02/18 22:22 Dose: Not Given Methylprednisolone (Solu-Medrol) 60 mg IV Q8 [facility] Last Admin: 05/03/18 06:00 Dose: 60 mg Physical Exam - Constitutional Appears: Chronically Ill - Head Exam Head Exam: NORMAL INSPECTION - Eye Exam Eye Exam: Normal appearance - ENT Exam ENT Exam: Mucous Membranes Moist - Neck Exam Neck exam: Positive for: Full Rom - Respiratory Exam Respiratory Exam: Decreased Breath Sounds - Cardiovascular Exam Cardiovascular Exam: REGULAR RHYTHM - GI/Abdominal Exam GI & Abdominal Exam: Normal Bowel Sounds - Rectal Exam Rectal Exam: Deferred - Extremities Exam Extremities exam: Positive for: pedal edema - Back Exam Back exam: NORMAL INSPECTION - Psychiatric Exam Psychiatric exam: Flat Affect - Skin Skin Exam: Normal Color Results - Vital Signs Recent Vital Signs: Last Vital Signs Temp 97 F L 05/03/18 00:30 Pulse 67 05/03/18 06:36 Resp 16 05/03/18 06:36 BP 135/77 05/03/18 06:36 Pulse Ox 97 05/03/18 06:36 - Labs Result Diagrams: 05/03/18 06:18 05/03/18 06:13 Labs: Laboratory Results - last 24 hr 05/02/18 05/02/18 05/02/18 15:07 15:25 15:25 WBC 13.9 H RBC 4.38 Hgb 12.4 Hct 39.3 MCV 89.7 D MCH 28.3 MCHC 31.5 L RDW 15.2 H Plt Count 224 MPV 8.9 Neut % (Auto) 87.9 H Lymph % (Auto) 8.0 L [place] % (Auto) 2.9 Eos % (Auto) 0.5 Baso % (Auto) 0.7 Neut # (Auto) 12.2 H Lymph # (Auto) 1.1 [place] # (Auto) 0.4 Eos # (Auto) 0.1 Baso # (Auto) 0.1 Neutrophils % (Manual) 86 H Lymphocytes % (Manual) 12 L Monocytes % (Manual) 2 Platelet Estimate Normal PT 10.1 INR 0.9 APTT 36 H Puncture Site pCO2 pO2 HCO3 ABG pH ABG Total CO2 ABG O2 Saturation ABG Base Excess ABG Hemoglobin ABG Carboxyhemoglobin POC ABG HHb (Measured) ABG Methemoglobin [place] Test ABG Potassium A-a O2 Difference Respiratory Index Hgb O2 Saturation Glucose Lactate Liter Flow Vent Mode Mechanical Rate FiO2 Inspiratory BiPAP Expiratory BiPAP Crit Value Called To Crit Value Called By Crit Value Read Back Blood Gas Notified Time Sodium Potassium Chloride Carbon Dioxide Anion Gap BUN Creatinine Est GFR ( Amer) Est GFR (Non-Af Amer) POC Glucose (mg/dL) 157 H Random Glucose Hemoglobin A1c Calcium Phosphorus Magnesium Total Bilirubin AST ALT Alkaline Phosphatase Troponin I Total Protein Albumin Globulin Albumin/Globulin Ratio Triglycerides Cholesterol LDL Cholesterol Direct HDL Cholesterol Arterial Blood Potassium Urine Color Urine Clarity Urine pH Ur Specific [place] Urine Protein Urine Glucose (UA) Urine Ketones Urine Blood Urine Nitrate Urine Bilirubin Urine Urobilinogen Ur Leukocyte Esterase Urine WBC (Auto) Urine RBC (Auto) Ur Squamous Epith Cells Urine Bacteria Hyaline Casts 05/02/18 05/02/18 05/02/18 15:25 15:25 16:40 WBC RBC Hgb Hct MCV MCH MCHC RDW Plt Count MPV Neut % (Auto) Lymph % (Auto) [place] % (Auto) Eos % (Auto) Baso % (Auto) Neut # (Auto) Lymph # (Auto) [place] # (Auto) Eos # (Auto) Baso # (Auto) Neutrophils % (Manual) Lymphocytes % (Manual) Monocytes % (Manual) Platelet Estimate PT INR APTT Puncture Site Rb pCO2 107 H* pO2 95 HCO3 36.3 H ABG pH 7.25 L ABG Total CO2 50.2 H ABG O2 Saturation 97.7 ABG Base Excess 14.6 H ABG Hemoglobin ABG Carboxyhemoglobin POC ABG HHb (Measured) ABG Methemoglobin Donta Test Na ABG Potassium 3.6 A-a O2 Difference 56.0 Respiratory Index 0.6 Hgb O2 Saturation Glucose 168 H Lactate 0.5 L Liter Flow Vent Mode Mechanical Rate 18 FiO2 40.0 Inspiratory BiPAP 16 Expiratory BiPAP 8 Crit Value Called To Bonnie gary Crit Value Called By Domonique collier Crit Value Read Back Y Blood Gas Notified Time 1646 Sodium 138 137.0 Potassium 4.9 Chloride 86 L 94.0 L Carbon Dioxide 43 H* D Anion Gap 14 BUN 18 H Creatinine 0.5 L Est GFR ( Amer) > 60 Est GFR (Non-Af Amer) > 60 POC Glucose (mg/dL) Random Glucose 158 H Hemoglobin A1c 6.8 H Calcium 9.0 Phosphorus Magnesium Total Bilirubin 0.6 AST 18 ALT 11 Alkaline Phosphatase 75 Troponin I 0.0200 Total Protein 7.3 Albumin 4.0 Globulin 3.3 Albumin/Globulin Ratio 1.2 Triglycerides 84 Cholesterol 174 LDL Cholesterol Direct 67 HDL Cholesterol 68 Arterial Blood Potassium 3.6 Urine Color Urine Clarity Urine pH Ur Specific [place] Urine Protein Urine Glucose (UA) Urine Ketones Urine Blood Urine Nitrate Urine Bilirubin Urine Urobilinogen Ur Leukocyte Esterase Urine WBC (Auto) Urine RBC (Auto) Ur Squamous Epith Cells Urine Bacteria Hyaline Casts 05/02/18 05/02/18 05/02/18 20:43 21:28 22:28 WBC RBC Hgb Hct MCV MCH MCHC RDW Plt Count MPV Neut % (Auto) Lymph % (Auto) [place] % (Auto) Eos % (Auto) Baso % (Auto) Neut # (Auto) Lymph # (Auto) [place] # (Auto) Eos # (Auto) Baso # (Auto) Neutrophils % (Manual) Lymphocytes % (Manual) Monocytes % (Manual) Platelet Estimate PT INR APTT Puncture Site Rb Lb pCO2 113 H* 69 H pO2 118 H 58 L HCO3 33.0 H 27.3 ABG pH 7.19 L* 7.28 L ABG Total CO2 46.7 H 34.5 H ABG O2 Saturation 98.6 H 93.8 L ABG Base Excess 10.3 H 3.5 H ABG Hemoglobin ABG Carboxyhemoglobin POC ABG HHb (Measured) ABG Methemoglobin Donta Test Na Na ABG Potassium 3.5 L A-a O2 Difference -45.0 5.0 Respiratory Index -0.4 0.1 Hgb O2 Saturation Glucose 154 H Lactate 0.4 L Liter Flow Vent Mode Bipap Bipap Mechanical Rate FiO2 30.0 21.0 Inspiratory BiPAP 20 24 Expiratory BiPAP 8 8 Crit Value Called To Dr jones Crit Value Called By Ponce barrientos Crit Value Read Back Y Blood Gas Notified Time 2045 Sodium 137.0 Potassium Chloride 97.0 L Carbon Dioxide Anion Gap BUN Creatinine Est GFR ( Amer) Est GFR (Non-Af Amer) POC Glucose (mg/dL) 187 H Random Glucose Hemoglobin A1c Calcium Phosphorus Magnesium Total Bilirubin AST ALT Alkaline Phosphatase Troponin I Total Protein Albumin Globulin Albumin/Globulin Ratio Triglycerides Cholesterol LDL Cholesterol Direct HDL Cholesterol Arterial Blood Potassium 3.5 L Urine Color Urine Clarity Urine pH Ur Specific [place] Urine Protein Urine Glucose (UA) Urine Ketones Urine Blood Urine Nitrate Urine Bilirubin Urine Urobilinogen Ur Leukocyte Esterase Urine WBC (Auto) Urine RBC (Auto) Ur Squamous Epith Cells Urine Bacteria Hyaline Casts 05/02/18 05/03/18 05/03/18 23:12 05:30 06:13 WBC RBC Hgb Hct MCV MCH MCHC RDW Plt Count MPV Neut % (Auto) Lymph % (Auto) [place] % (Auto) Eos % (Auto) Baso % (Auto) Neut # (Auto) Lymph # (Auto) [place] # (Auto) Eos # (Auto) Baso # (Auto) Neutrophils % (Manual) Lymphocytes % (Manual) Monocytes % (Manual) Platelet Estimate PT INR APTT Puncture Site R rad pCO2 70 H pO2 45 L HCO3 34.5 H ABG pH 7.37 ABG Total CO2 42.6 H ABG O2 Saturation 86.0 L ABG Base Excess 12.6 H ABG Hemoglobin 11.2 L ABG Carboxyhemoglobin 2.3 H POC ABG HHb (Measured) 13.6 H ABG Methemoglobin 0.9 Donta Test Pos ABG Potassium A-a O2 Difference 17.0 Respiratory Index 0.4 Hgb O2 Saturation 83.3 L Glucose Lactate Liter Flow 0 Vent Mode Mechanical Rate FiO2 21.0 Inspiratory BiPAP Expiratory BiPAP Crit Value Called To Crit Value Called By Crit Value Read Back Blood Gas Notified Time Sodium 137 Potassium 4.2 Chloride 91 L Carbon Dioxide 38 H Anion Gap 12 BUN 21 H Creatinine 0.7 Est GFR ( Amer) > 60 Est GFR (Non-Af Amer) > 60 POC Glucose (mg/dL) Random Glucose 211 H Hemoglobin A1c Calcium 8.8 Phosphorus 3.4 Magnesium 2.0 Total Bilirubin 0.3 AST 9 L D ALT 10 Alkaline Phosphatase 83 Troponin I Total Protein 6.7 Albumin 4.0 Globulin 2.7 Albumin/Globulin Ratio 1.5 Triglycerides Cholesterol LDL Cholesterol Direct HDL Cholesterol Arterial Blood Potassium Urine Color Yellow Urine Clarity Hazy Urine pH 5.0 Ur Specific [place] 1.012 Urine Protein 1+ H Urine Glucose (UA) Normal Urine Ketones Negative Urine Blood Negative Urine Nitrate Negative Urine Bilirubin Negative Urine Urobilinogen Normal Ur Leukocyte Esterase Neg Urine WBC (Auto) 1 Urine RBC (Auto) 2 Ur Squamous Epith Cells 1 Urine Bacteria Rare Hyaline Casts 3-5 H 05/03/18 06:18 WBC 10.9 H RBC 3.97 Hgb 11.4 Hct 35.7 MCV 89.9 MCH 28.8 MCHC 32.0 L RDW 15.1 H Plt Count 200 MPV 9.3 Neut % (Auto) 94.6 H Lymph % (Auto) 4.4 L [place] % (Auto) 1.0 Eos % (Auto) 0.0 Baso % (Auto) 0.0 Neut # (Auto) 10.3 H Lymph # (Auto) 0.5 L [place] # (Auto) 0.1 Eos # (Auto) 0.0 Baso # (Auto) 0.0 Neutrophils % (Manual) Lymphocytes % (Manual) Monocytes % (Manual) Platelet Estimate PT INR APTT Puncture Site pCO2 pO2 HCO3 ABG pH ABG Total CO2 ABG O2 Saturation ABG Base Excess ABG Hemoglobin ABG Carboxyhemoglobin POC ABG HHb (Measured) ABG Methemoglobin Donta Test ABG Potassium A-a O2 Difference Respiratory Index Hgb O2 Saturation Glucose Lactate Liter Flow Vent Mode Mechanical Rate FiO2 Inspiratory BiPAP Expiratory BiPAP Crit Value Called To Crit Value Called By Crit Value Read Back Blood Gas Notified Time Sodium Potassium Chloride Carbon Dioxide Anion Gap BUN Creatinine Est GFR ( Amer) Est GFR (Non-Af Amer) POC Glucose (mg/dL) Random Glucose Hemoglobin A1c Calcium Phosphorus Magnesium Total Bilirubin AST ALT Alkaline Phosphatase Troponin I Total Protein Albumin Globulin Albumin/Globulin Ratio Triglycerides Cholesterol LDL Cholesterol Direct HDL Cholesterol Arterial Blood Potassium Urine Color Urine Clarity Urine pH Ur Specific [place] Urine Protein Urine Glucose (UA) Urine Ketones Urine Blood Urine Nitrate Urine Bilirubin Urine Urobilinogen Ur Leukocyte Esterase Urine WBC (Auto) Urine RBC (Auto) Ur Squamous Epith Cells Urine Bacteria Hyaline Casts - EKG Data EKG Interpreted by: Myself Assessment & Plan (1) Acute respiratory failure with hypoxia and hypercapnia Assessment and Plan: continue pulmonary management. Status: Acute (2) Diabetes Assessment and Plan: risk factor for CVA, CAD. blood glucose control Status: Chronic (3) HTN (hypertension) Assessment and Plan: will adjust therapy. previous LV function is normal by echocardiogram Status: Chronic
[2018-05-03] MEDS: (Novolin R) Insulin Human Regular 100 units/ml vial SC SCH ×4 (08:16→22:33)
[2018-05-03 08:27] LABS: BANDS 1 % (0-2); EOSINOPHIL 2 % (0-4); LYMPHOCYTE 6 % (20-40); MONOCYTE 1 % (0-10); NEUTROPHIL 90 % (50-75); TOTAL CELLS COUNTED 100
[2018-05-03 08:28] LABS: ANISOCYTOSIS SLIGHT; PLATELET ESTIMATE NORMAL (NORMAL)
[2018-05-03 08:29] LABS: HYPOCHROMIC SLIGHT
--- NOTE | 2018-05-03 09:35 | CP.CCUPN ---
<Yifan Garcia - Last Filed: 05/03/18 15:32> CCU Subjective - Physician Review Subjective (Free Text): 05/03/18 15:32 Patient seen and examined in ICU this AM. Nursing reports that earlier this AM , patient became more awake and alert, and tore off her Bipap mask. This AM, patient is again lethargic, poorly responsive, and ABG concerning for hypoxia and worsening CO2 retention with pCO2 70 and pO2 45. Bipap replaced, will obtain another ABG and reassess after 2 hours of Bipap. CCU Objective - Vital Signs / Intake & Output Vital Signs (Last 4 hours): Vital Signs Pulse Resp BP Pulse Ox 05/03/18 07:36 57 L 26 H 144/82 96 05/03/18 07:06 78 18 153/69 H 98 05/03/18 07:00 80 25 H 98 05/03/18 06:36 67 16 135/77 97 05/03/18 06:06 69 13 152/76 H 94 L 05/03/18 06:00 71 13 92 L 05/03/18 05:36 73 15 145/71 81 L Intake and Output (Last 8hrs): Intake & Output 05/02/18 05/03/18 05/03/18 22:59 06:59 14:59 Intake Total 200 1121.6 100 Output Total 0 390 Balance 200 731.6 100 Weight 136.622 kg 136.6 kg Intake: IV 120 Intake, IV Amount 200 1001.6 100 Right Distal Port Femoral 101.6 Right Hand 0 0 Right Proximal Port 200 900 100 Femoral Oral 0 0 Output: Urine 0 390 Urethral ([place]) 0 390 Urine, Voided 0 0 Other: # Voids Urine, Voided 1 # Bowel Movements 1 - Physical Exam Physical Exam Limitations: Positive for: Altered Mental Status (somnolent/ poorly responsive, likely CO2 narcosis +/- hypoxia) Head: Positive for: Atraumatic, Normocephalic Pupils: Negative for: Pinpoint Extroacular Muscles: Positive for: Other (not following commands for EOMI assessment, but tried to close manually opened eyelids and moves eyes away from light challenge) Conjunctiva: Positive for: Normal. Negative for: Injected, Icteric Mouth: Positive for: Moist Mucous Membranes. Negative for: Dry, Drooling Pharnyx: Positive for: Other (Malampati 4 airway) Nose (External): Positive for: Atraumatic. Negative for: Abrasion, Contusion, Laceration Nose (Internal): Positive for: No Active Bleeding. Negative for: Epistaxis Neck: Positive for: Normal Range of Motion, Trachea Midline, Other (Bull-neck). Negative for: JVD Respiratory/Chest: Positive for: Clear to Auscultation, Decreased Breath Sounds (moderate to severely decreased breath sounds in all loera, likely some component 2/2 body habitus). Negative for: Good Air Exchange, Respiratory Distress, Wheezes, Rales, Rhonchi Cardiovascular: Positive for: Regular Rate and Rhythm, Normal S1, S2, Peripheal Pulses Present (+2 radials, +1 dorsalis pedis bilaterally). Negative for: Tachycardic, Bradycardic Abdomen: Positive for: Normal Bowel Sounds. Negative for: Distention (morbidly obese but not distended) Upper Extremity: Positive for: Normal Inspection, NORMAL PULSES. Negative for: Cyanosis, Edema, Swelling, Erythema, Deformity Lower Extremity: Positive for: Normal Inspection, NORMAL PULSES. Negative for: Edema, Cyanosis, Swelling, Erythema, Deformity Neurological: Positive for: Other (somnolent/poorly responsive, not following most commands, briefly arousable with noxious physical stimuli but rapidly returns to somnolence). Negative for: GCS=15 (GCS 11 ([id number])) Skin: Positive for: Warm, Dry, Normal Color. Negative for: Rashes Psychiatric: Positive for: Other (somnolent/poorly responsive, unable to assess) - Medications Active Medications: Active Medications Generic Name Dose Route Start Last Admin Trade Name Ruddyq PRN Reason Stop Dose Admin Albuterol/Ipratropium 3 ml 05/02/18 20:00 05/03/18 07:59 Duoneb 3 Mg/0.5 Mg (3 Ml) Ud INH 3 ml RQ4 [facility] Administration Enoxaparin Sodium 30 mg 05/03/18 10:00 Lovenox SC DAILY [facility] Famotidine 20 mg 05/03/18 10:00 Pepcid IVP DAILY [facility] Azithromycin 500 mg/ Sodium 250 mls @ 250 mls/hr 05/03/18 10:00 Chloride IVPB DAILY [facility] Protocol Dextrose/Sodium Chloride 1,000 mls @ 100 mls/hr 05/02/18 19:15 05/03/18 06:02 Dextrose 5%/0.9% Ns 1000 Ml IV Not Given .Q10H [facility] Dopamine HCl/Dextrose 400 mg in 250 mls @ 10.247 mls/hr 05/02/18 21:49 06:00 Dopamine 400mg/250ml D5w IV 0 mcg/kg/min .Q24H PRN 0 mls/hr TITRATE PER MD ORDER Titration Protocol 2 MCG/KG/MIN Aztreonam 2 gm/ Sodium 100 mls @ 200 mls/hr 05/02/18 23:00 05/03/18 06:01 Chloride IVPB 200 mls/hr Q8H [facility] Administration Protocol Insulin Human Regular 0 unit 05/02/18 22:00 05/03/18 08:16 Novolin R SC 3 u ACHS [facility] Administration Protocol Methylprednisolone 60 mg 05/02/18 22:00 05/03/18 06:00 Solu-Medrol IV 60 mg Q8 [facility] Administration - Patient Studies Lab Studies: Lab Studies 05/03/18 05/03/18 05/03/18 Range/Units 07:49 06:18 06:13 WBC 10.9 H (4.8-10.8) K/uL RBC 3.97 (3.80-5.20) Mil/uL Hgb 11.4 (11.0-16.0) g/dL Hct 35.7 (34.0-47.0) % MCV 89.9 (81.0-99.0) fL MCH 28.8 (27.0-31.0) pg MCHC 32.0 L (33.0-37.0) g/dL RDW 15.1 H (11.5-14.5) % Plt Count 200 (130-400) K/uL MPV 9.3 (7.2-11.7) fL Neut % (Auto) 94.6 H (50.0-75.0) % Lymph % (Auto) 4.4 L (20.0-40.0) % Owen % (Auto) 1.0 (0.0-10.0) % Eos % (Auto) 0.0 (0.0-4.0) % Baso % (Auto) 0.0 (0.0-2.0) % Neut # (Auto) 10.3 H (1.8-7.0) K/uL Lymph # (Auto) 0.5 L (1.0-4.3) K/uL Owen # (Auto) 0.1 (0.0-0.8) K/uL Eos # (Auto) 0.0 (0.0-0.7) K/uL Baso # (Auto) 0.0 (0.0-0.2) K/uL Neutrophils % (Manual) 90 H (50-75) % Band Neutrophils % 1 (0-2) % Lymphocytes % (Manual) 6 L (20-40) % Monocytes % (Manual) 1 (0-10) % Eosinophils % (Manual) 2 (0-4) % Platelet Estimate Normal (NORMAL) Hypochromasia (manual) Slight Anisocytosis (manual) Slight PT (9.7-12.2) SECONDS INR APTT (21-34) SECONDS Puncture Site pCO2 (35-45) mm/Hg pO2 (80-100) mm/Hg HCO3 (21-28) mmol/L ABG pH (7.35-7.45) ABG Total CO2 (22-28) mmol/L ABG O2 Saturation (95-98) % ABG Base Excess (-2.0-3.0) mmol/L ABG Hemoglobin (11.7-17.4) g/dL ABG Carboxyhemoglobin (0.5-1.5) % POC ABG HHb (Measured) (0.0-5.0) % ABG Methemoglobin (0.0-3.0) % [place] Test ABG Potassium (3.6-5.2) mmol/L A-a O2 Difference mm/Hg Respiratory Index Hgb O2 Saturation (95.0-98.0) % Glucose (65-105) mg/dl Lactate (0.7-2.1) mmol/L Liter Flow Vent Mode Mechanical Rate FiO2 % Inspiratory BiPAP Expiratory BiPAP Crit Value Called To Crit Value Called By Crit Value Read Back Blood Gas Notified Time Sodium 137 (132-148) mmol/L Potassium 4.2 (3.6-5.2) mmol/L Chloride 91 L (98-107) mmol/L Carbon Dioxide 38 H (22-30) mmol/L Anion Gap 12 (10-20) BUN 21 H (7-17) mg/dL Creatinine 0.7 (0.7-1.2) mg/dL Est GFR ( Amer) > 60 Est GFR (Non-Af Amer) > 60 POC Glucose (mg/dL) 207 H (65-110) mg/dL Random Glucose 211 H (65-105) mg/dL Hemoglobin A1c (4.2-6.5) % Calcium 8.8 (8.6-10.4) mg/dl Phosphorus 3.4 (2.5-4.5) mg/dL Magnesium 2.0 (1.6-2.3) mg/dL Total Bilirubin 0.3 (0.2-1.3) mg/dL AST 9 L D (14-36) U/L ALT 10 (9-52) U/L Alkaline Phosphatase 83 (38-126) U/L Troponin I (0.00-0.120) ng/mL Total Protein 6.7 (6.3-8.3) g/dL Albumin 4.0 (3.5-5.0) g/dL Globulin 2.7 (2.2-3.9) gm/dL Albumin/Globulin Ratio 1.5 (1.0-2.1) Triglycerides (0-149) mg/dL Cholesterol (0-199) mg/dL LDL Cholesterol Direct (0-129) mg/dL HDL Cholesterol (30-70) mg/dL Arterial Blood Potassium (3.6-5.2) mmol/L Urine Color (YELLOW) Urine Clarity (Clear) Urine pH (5.0-8.0) Ur Specific [place] (1.003-1.030) Urine Protein (NEGATIVE) mg/dL Urine Glucose (UA) (Normal) mg/dL Urine Ketones (NEGATIVE) mg/dL Urine Blood (NEGATIVE) Urine Nitrate (NEGATIVE) Urine Bilirubin (NEGATIVE) Urine Urobilinogen (0.2-1.0) mg/dL Ur Leukocyte Esterase (Negative) Cony/uL Urine WBC (Auto) (0-5) /hpf Urine RBC (Auto) (0-3) /hpf Ur Squamous Epith Cells (0-5) /hpf Urine Bacteria (<OCC) Hyaline Casts (0-2) /lpf 05/03/18 05/02/18 05/02/18 Range/Units 05:30 23:12 22:28 WBC (4.8-10.8) K/uL RBC (3.80-5.20) Mil/uL Hgb (11.0-16.0) g/dL Hct (34.0-47.0) % MCV (81.0-99.0) fL MCH (27.0-31.0) pg MCHC (33.0-37.0) g/dL RDW (11.5-14.5) % Plt Count (130-400) K/uL MPV (7.2-11.7) fL Neut % (Auto) (50.0-75.0) % Lymph % (Auto) (20.0-40.0) % Owen % (Auto) (0.0-10.0) % Eos % (Auto) (0.0-4.0) % Baso % (Auto) (0.0-2.0) % Neut # (Auto) (1.8-7.0) K/uL Lymph # (Auto) (1.0-4.3) K/uL Owen # (Auto) (0.0-0.8) K/uL Eos # (Auto) (0.0-0.7) K/uL Baso # (Auto) (0.0-0.2) K/uL Neutrophils % (Manual) (50-75) % Band Neutrophils % (0-2) % Lymphocytes % (Manual) (20-40) % Monocytes % (Manual) (0-10) % Eosinophils % (Manual) (0-4) % Platelet Estimate (NORMAL) Hypochromasia (manual) Anisocytosis (manual) PT (9.7-12.2) SECONDS INR APTT (21-34) SECONDS Puncture Site R rad Lb pCO2 70 H 69 H (35-45) mm/Hg pO2 45 L 58 L (80-100) mm/Hg HCO3 34.5 H 27.3 (21-28) mmol/L ABG pH 7.37 7.28 L (7.35-7.45) ABG Total CO2 42.6 H 34.5 H (22-28) mmol/L ABG O2 Saturation 86.0 L 93.8 L (95-98) % ABG Base Excess 12.6 H 3.5 H (-2.0-3.0) mmol/L ABG Hemoglobin 11.2 L (11.7-17.4) g/dL ABG Carboxyhemoglobin 2.3 H (0.5-1.5) % POC ABG HHb (Measured) 13.6 H (0.0-5.0) % ABG Methemoglobin 0.9 (0.0-3.0) % [place] Test Pos Na ABG Potassium (3.6-5.2) mmol/L A-a O2 Difference 17.0 5.0 mm/Hg Respiratory Index 0.4 0.1 Hgb O2 Saturation 83.3 L (95.0-98.0) % Glucose (65-105) mg/dl Lactate (0.7-2.1) mmol/L Liter Flow 0 Vent Mode Bipap Mechanical Rate FiO2 21.0 21.0 % Inspiratory BiPAP 24 Expiratory BiPAP 8 Crit Value Called To Crit Value Called By Crit Value Read Back Blood Gas Notified Time Sodium (132-148) mmol/L Potassium (3.6-5.2) mmol/L Chloride (98-107) mmol/L Carbon Dioxide (22-30) mmol/L Anion Gap (10-20) BUN (7-17) mg/dL Creatinine (0.7-1.2) mg/dL Est GFR ( Amer) Est GFR (Non-Af Amer) POC Glucose (mg/dL) (65-110) mg/dL Random Glucose (65-105) mg/dL Hemoglobin A1c (4.2-6.5) % Calcium (8.6-10.4) mg/dl Phosphorus (2.5-4.5) mg/dL Magnesium (1.6-2.3) mg/dL Total Bilirubin (0.2-1.3) mg/dL AST (14-36) U/L ALT (9-52) U/L Alkaline Phosphatase (38-126) U/L Troponin I (0.00-0.120) ng/mL Total Protein (6.3-8.3) g/dL Albumin (3.5-5.0) g/dL Globulin (2.2-3.9) gm/dL Albumin/Globulin Ratio (1.0-2.1) Triglycerides (0-149) mg/dL Cholesterol (0-199) mg/dL LDL Cholesterol Direct (0-129) mg/dL HDL Cholesterol (30-70) mg/dL Arterial Blood Potassium (3.6-5.2) mmol/L Urine Color Yellow (YELLOW) Urine Clarity Hazy (Clear) Urine pH 5.0 (5.0-8.0) Ur Specific [place] 1.012 (1.003-1.030) Urine Protein 1+ H (NEGATIVE) mg/dL Urine Glucose (UA) Normal (Normal) mg/dL Urine Ketones Negative (NEGATIVE) mg/dL Urine Blood Negative (NEGATIVE) Urine Nitrate Negative (NEGATIVE) Urine Bilirubin Negative (NEGATIVE) Urine Urobilinogen Normal (0.2-1.0) mg/dL Ur Leukocyte Esterase Neg (Negative) Cony/uL Urine WBC (Auto) 1 (0-5) /hpf Urine RBC (Auto) 2 (0-3) /hpf Ur Squamous Epith Cells 1 (0-5) /hpf Urine Bacteria Rare (<OCC) Hyaline Casts 3-5 H (0-2) /lpf 05/02/18 05/02/18 05/02/18 Range/Units 21:28 20:43 16:40 WBC (4.8-10.8) K/uL RBC (3.80-5.20) Mil/uL Hgb (11.0-16.0) g/dL Hct (34.0-47.0) % MCV (81.0-99.0) fL MCH (27.0-31.0) pg MCHC (33.0-37.0) g/dL RDW (11.5-14.5) % Plt Count (130-400) K/uL MPV (7.2-11.7) fL Neut % (Auto) (50.0-75.0) % Lymph % (Auto) (20.0-40.0) % Owen % (Auto) (0.0-10.0) % Eos % (Auto) (0.0-4.0) % Baso % (Auto) (0.0-2.0) % Neut # (Auto) (1.8-7.0) K/uL Lymph # (Auto) (1.0-4.3) K/uL Owen # (Auto) (0.0-0.8) K/uL Eos # (Auto) (0.0-0.7) K/uL Baso # (Auto) (0.0-0.2) K/uL Neutrophils % (Manual) (50-75) % Band Neutrophils % (0-2) % Lymphocytes % (Manual) (20-40) % Monocytes % (Manual) (0-10) % Eosinophils % (Manual) (0-4) % Platelet Estimate (NORMAL) Hypochromasia (manual) Anisocytosis (manual) PT (9.7-12.2) SECONDS INR APTT (21-34) SECONDS Puncture Site Rb Rb pCO2 113 H* 107 H* (35-45) mm/Hg pO2 118 H 95 (80-100) mm/Hg HCO3 33.0 H 36.3 H (21-28) mmol/L ABG pH 7.19 L* 7.25 L (7.35-7.45) ABG Total CO2 46.7 H 50.2 H (22-28) mmol/L ABG O2 Saturation 98.6 H 97.7 (95-98) % ABG Base Excess 10.3 H 14.6 H (-2.0-3.0) mmol/L ABG Hemoglobin (11.7-17.4) g/dL ABG Carboxyhemoglobin (0.5-1.5) % POC ABG HHb (Measured) (0.0-5.0) % ABG Methemoglobin (0.0-3.0) % [place] Test Na Na ABG Potassium 3.5 L 3.6 (3.6-5.2) mmol/L A-a O2 Difference -45.0 56.0 mm/Hg Respiratory Index -0.4 0.6 Hgb O2 Saturation (95.0-98.0) % Glucose 154 H 168 H (65-105) mg/dl Lactate 0.4 L 0.5 L (0.7-2.1) mmol/L Liter Flow Vent Mode Bipap Mechanical Rate 18 FiO2 30.0 40.0 % Inspiratory BiPAP 20 16 Expiratory BiPAP 8 8 Crit Value Called To Dr karen gary Crit Value Called By Ponce collier Crit Value Read Back Y Y Blood Gas Notified Time 2045 1645 Sodium 137.0 137.0 (132-148) mmol/L Potassium (3.6-5.2) mmol/L Chloride 97.0 L 94.0 L (98-107) mmol/L Carbon Dioxide (22-30) mmol/L Anion Gap (10-20) BUN (7-17) mg/dL Creatinine (0.7-1.2) mg/dL Est GFR ( Amer) Est GFR (Non-Af Amer) POC Glucose (mg/dL) 187 H (65-110) mg/dL Random Glucose (65-105) mg/dL Hemoglobin A1c (4.2-6.5) % Calcium (8.6-10.4) mg/dl Phosphorus (2.5-4.5) mg/dL Magnesium (1.6-2.3) mg/dL Total Bilirubin (0.2-1.3) mg/dL AST (14-36) U/L ALT (9-52) U/L Alkaline Phosphatase (38-126) U/L Troponin I (0.00-0.120) ng/mL Total Protein (6.3-8.3) g/dL Albumin (3.5-5.0) g/dL Globulin (2.2-3.9) gm/dL Albumin/Globulin Ratio (1.0-2.1) Triglycerides (0-149) mg/dL Cholesterol (0-199) mg/dL LDL Cholesterol Direct (0-129) mg/dL HDL Cholesterol (30-70) mg/dL Arterial Blood Potassium 3.5 L 3.6 (3.6-5.2) mmol/L Urine Color (YELLOW) Urine Clarity (Clear) Urine pH (5.0-8.0) Ur Specific [place] (1.003-1.030) Urine Protein (NEGATIVE) mg/dL Urine Glucose (UA) (Normal) mg/dL Urine Ketones (NEGATIVE) mg/dL Urine Blood (NEGATIVE) Urine Nitrate (NEGATIVE) Urine Bilirubin (NEGATIVE) Urine Urobilinogen (0.2-1.0) mg/dL Ur Leukocyte Esterase (Negative) Cony/uL Urine WBC (Auto) (0-5) /hpf Urine RBC (Auto) (0-3) /hpf Ur Squamous Epith Cells (0-5) /hpf Urine Bacteria (<OCC) Hyaline Casts (0-2) /lpf 05/02/18 05/02/18 05/02/18 Range/Units 15:25 15:25 15:25 WBC (4.8-10.8) K/uL RBC (3.80-5.20) Mil/uL Hgb (11.0-16.0) g/dL Hct (34.0-47.0) % MCV (81.0-99.0) fL MCH (27.0-31.0) pg MCHC (33.0-37.0) g/dL RDW (11.5-14.5) % Plt Count (130-400) K/uL MPV (7.2-11.7) fL Neut % (Auto) (50.0-75.0) % Lymph % (Auto) (20.0-40.0) % Owen % (Auto) (0.0-10.0) % Eos % (Auto) (0.0-4.0) % Baso % (Auto) (0.0-2.0) % Neut # (Auto) (1.8-7.0) K/uL Lymph # (Auto) (1.0-4.3) K/uL Owen # (Auto) (0.0-0.8) K/uL Eos # (Auto) (0.0-0.7) K/uL Baso # (Auto) (0.0-0.2) K/uL Neutrophils % (Manual) (50-75) % Band Neutrophils % (0-2) % Lymphocytes % (Manual) (20-40) % Monocytes % (Manual) (0-10) % Eosinophils % (Manual) (0-4) % Platelet Estimate (NORMAL) Hypochromasia (manual) Anisocytosis (manual) PT 10.1 (9.7-12.2) SECONDS INR 0.9 APTT 36 H (21-34) SECONDS Puncture Site pCO2 (35-45) mm/Hg pO2 (80-100) mm/Hg HCO3 (21-28) mmol/L ABG pH (7.35-7.45) ABG Total CO2 (22-28) mmol/L ABG O2 Saturation (95-98) % ABG Base Excess (-2.0-3.0) mmol/L ABG Hemoglobin (11.7-17.4) g/dL ABG Carboxyhemoglobin (0.5-1.5) % POC ABG HHb (Measured) (0.0-5.0) % ABG Methemoglobin (0.0-3.0) % [place] Test ABG Potassium (3.6-5.2) mmol/L A-a O2 Difference mm/Hg Respiratory Index Hgb O2 Saturation (95.0-98.0) % Glucose (65-105) mg/dl Lactate (0.7-2.1) mmol/L Liter Flow Vent Mode Mechanical Rate FiO2 % Inspiratory BiPAP Expiratory BiPAP Crit Value Called To Crit Value Called By Crit Value Read Back Blood Gas Notified Time Sodium 138 (132-148) mmol/L Potassium 4.9 (3.6-5.2) mmol/L Chloride 86 L (98-107) mmol/L Carbon Dioxide 43 H* D (22-30) mmol/L Anion Gap 14 (10-20) BUN 18 H (7-17) mg/dL Creatinine 0.5 L (0.7-1.2) mg/dL Est GFR ( Amer) > 60 Est GFR (Non-Af Amer) > 60 POC Glucose (mg/dL) (65-110) mg/dL Random Glucose 158 H (65-105) mg/dL Hemoglobin A1c 6.8 H (4.2-6.5) % Calcium 9.0 (8.6-10.4) mg/dl Phosphorus (2.5-4.5) mg/dL Magnesium (1.6-2.3) mg/dL Total Bilirubin 0.6 (0.2-1.3) mg/dL AST 18 (14-36) U/L ALT 11 (9-52) U/L Alkaline Phosphatase 75 (38-126) U/L Troponin I 0.0200 (0.00-0.120) ng/mL Total Protein 7.3 (6.3-8.3) g/dL Albumin 4.0 (3.5-5.0) g/dL Globulin 3.3 (2.2-3.9) gm/dL Albumin/Globulin Ratio 1.2 (1.0-2.1) Triglycerides 84 (0-149) mg/dL Cholesterol 174 (0-199) mg/dL LDL Cholesterol Direct 67 (0-129) mg/dL HDL Cholesterol 68 (30-70) mg/dL Arterial Blood Potassium (3.6-5.2) mmol/L Urine Color (YELLOW) Urine Clarity (Clear) Urine pH (5.0-8.0) Ur Specific [place] (1.003-1.030) Urine Protein (NEGATIVE) mg/dL Urine Glucose (UA) (Normal) mg/dL Urine Ketones (NEGATIVE) mg/dL Urine Blood (NEGATIVE) Urine Nitrate (NEGATIVE) Urine Bilirubin (NEGATIVE) Urine Urobilinogen (0.2-1.0) mg/dL Ur Leukocyte Esterase (Negative) Cony/uL Urine WBC (Auto) (0-5) /hpf Urine RBC (Auto) (0-3) /hpf Ur Squamous Epith Cells (0-5) /hpf Urine Bacteria (<OCC) Hyaline Casts (0-2) /lpf 05/02/18 05/02/18 Range/Units 15:25 15:07 WBC 13.9 H (4.8-10.8) K/uL RBC 4.38 (3.80-5.20) Mil/uL Hgb 12.4 (11.0-16.0) g/dL Hct 39.3 (34.0-47.0) % MCV 89.7 D (81.0-99.0) fL MCH 28.3 (27.0-31.0) pg MCHC 31.5 L (33.0-37.0) g/dL RDW 15.2 H (11.5-14.5) % Plt Count 224 (130-400) K/uL MPV 8.9 (7.2-11.7) fL Neut % (Auto) 87.9 H (50.0-75.0) % Lymph % (Auto) 8.0 L (20.0-40.0) % Owen % (Auto) 2.9 (0.0-10.0) % Eos % (Auto) 0.5 (0.0-4.0) % Baso % (Auto) 0.7 (0.0-2.0) % Neut # (Auto) 12.2 H (1.8-7.0) K/uL Lymph # (Auto) 1.1 (1.0-4.3) K/uL Owen # (Auto) 0.4 (0.0-0.8) K/uL Eos # (Auto) 0.1 (0.0-0.7) K/uL Baso # (Auto) 0.1 (0.0-0.2) K/uL Neutrophils % (Manual) 86 H (50-75) % Band Neutrophils % (0-2) % Lymphocytes % (Manual) 12 L (20-40) % Monocytes % (Manual) 2 (0-10) % Eosinophils % (Manual) (0-4) % Platelet Estimate Normal (NORMAL) Hypochromasia (manual) Anisocytosis (manual) PT (9.7-12.2) SECONDS INR APTT (21-34) SECONDS Puncture Site pCO2 (35-45) mm/Hg pO2 (80-100) mm/Hg HCO3 (21-28) mmol/L ABG pH (7.35-7.45) ABG Total CO2 (22-28) mmol/L ABG O2 Saturation (95-98) % ABG Base Excess (-2.0-3.0) mmol/L ABG Hemoglobin (11.7-17.4) g/dL ABG Carboxyhemoglobin (0.5-1.5) % POC ABG HHb (Measured) (0.0-5.0) % ABG Methemoglobin (0.0-3.0) % [place] Test ABG Potassium (3.6-5.2) mmol/L A-a O2 Difference mm/Hg Respiratory Index Hgb O2 Saturation (95.0-98.0) % Glucose (65-105) mg/dl Lactate (0.7-2.1) mmol/L Liter Flow Vent Mode Mechanical Rate FiO2 % Inspiratory BiPAP Expiratory BiPAP Crit Value Called To Crit Value Called By Crit Value Read Back Blood Gas Notified Time Sodium (132-148) mmol/L Potassium (3.6-5.2) mmol/L Chloride (98-107) mmol/L Carbon Dioxide (22-30) mmol/L Anion Gap (10-20) BUN (7-17) mg/dL Creatinine (0.7-1.2) mg/dL Est GFR ( Amer) Est GFR (Non-Af Amer) POC Glucose (mg/dL) 157 H (65-110) mg/dL Random Glucose (65-105) mg/dL Hemoglobin A1c (4.2-6.5) % Calcium (8.6-10.4) mg/dl Phosphorus (2.5-4.5) mg/dL Magnesium (1.6-2.3) mg/dL Total Bilirubin (0.2-1.3) mg/dL AST (14-36) U/L ALT (9-52) U/L Alkaline Phosphatase (38-126) U/L Troponin I (0.00-0.120) ng/mL Total Protein (6.3-8.3) g/dL Albumin (3.5-5.0) g/dL Globulin (2.2-3.9) gm/dL Albumin/Globulin Ratio (1.0-2.1) Triglycerides (0-149) mg/dL Cholesterol (0-199) mg/dL LDL Cholesterol Direct (0-129) mg/dL HDL Cholesterol (30-70) mg/dL Arterial Blood Potassium (3.6-5.2) mmol/L Urine Color (YELLOW) Urine Clarity (Clear) Urine pH (5.0-8.0) Ur Specific [place] (1.003-1.030) Urine Protein (NEGATIVE) mg/dL Urine Glucose (UA) (Normal) mg/dL Urine Ketones (NEGATIVE) mg/dL Urine Blood (NEGATIVE) Urine Nitrate (NEGATIVE) Urine Bilirubin (NEGATIVE) Urine Urobilinogen (0.2-1.0) mg/dL Ur Leukocyte Esterase (Negative) Cony/uL Urine WBC (Auto) (0-5) /hpf Urine RBC (Auto) (0-3) /hpf Ur Squamous Epith Cells (0-5) /hpf Urine Bacteria (<OCC) Hyaline Casts (0-2) /lpf Laboratory Results - last 24 hr 05/02/18 05/02/18 05/02/18 15:07 15:25 15:25 WBC 13.9 H RBC 4.38 Hgb 12.4 Hct 39.3 MCV 89.7 D MCH 28.3 MCHC 31.5 L RDW 15.2 H Plt Count 224 MPV 8.9 Neut % (Auto) 87.9 H Lymph % (Auto) 8.0 L Owen % (Auto) 2.9 Eos % (Auto) 0.5 Baso % (Auto) 0.7 Neut # (Auto) 12.2 H Lymph # (Auto) 1.1 Owen # (Auto) 0.4 Eos # (Auto) 0.1 Baso # (Auto) 0.1 Neutrophils % (Manual) 86 H Band Neutrophils % Lymphocytes % (Manual) 12 L Monocytes % (Manual) 2 Eosinophils % (Manual) Platelet Estimate Normal Hypochromasia (manual) Anisocytosis (manual) PT 10.1 INR 0.9 APTT 36 H Puncture Site pCO2 pO2 HCO3 ABG pH ABG Total CO2 ABG O2 Saturation ABG Base Excess ABG Hemoglobin ABG Carboxyhemoglobin POC ABG HHb (Measured) ABG Methemoglobin Donta Test ABG Potassium A-a O2 Difference Respiratory Index Hgb O2 Saturation Glucose Lactate Liter Flow Vent Mode Mechanical Rate FiO2 Inspiratory BiPAP Expiratory BiPAP Crit Value Called To Crit Value Called By Crit Value Read Back Blood Gas Notified Time Sodium Potassium Chloride Carbon Dioxide Anion Gap BUN Creatinine Est GFR ( Amer) Est GFR (Non-Af Amer) POC Glucose (mg/dL) 157 H Random Glucose Hemoglobin A1c Calcium Phosphorus Magnesium Total Bilirubin AST ALT Alkaline Phosphatase Troponin I Total Protein Albumin Globulin Albumin/Globulin Ratio Triglycerides Cholesterol LDL Cholesterol Direct HDL Cholesterol Arterial Blood Potassium Urine Color Urine Clarity Urine pH Ur Specific [place] Urine Protein Urine Glucose (UA) Urine Ketones Urine Blood Urine Nitrate Urine Bilirubin Urine Urobilinogen Ur Leukocyte Esterase Urine WBC (Auto) Urine RBC (Auto) Ur Squamous Epith Cells Urine Bacteria Hyaline Casts 05/02/18 05/02/18 05/02/18 15:25 15:25 16:40 WBC RBC Hgb Hct MCV MCH MCHC RDW Plt Count MPV Neut % (Auto) Lymph % (Auto) Owen % (Auto) Eos % (Auto) Baso % (Auto) Neut # (Auto) Lymph # (Auto) Owen # (Auto) Eos # (Auto) Baso # (Auto) Neutrophils % (Manual) Band Neutrophils % Lymphocytes % (Manual) Monocytes % (Manual) Eosinophils % (Manual) Platelet Estimate Hypochromasia (manual) Anisocytosis (manual) PT INR APTT Puncture Site Rb pCO2 107 H* pO2 95 HCO3 36.3 H ABG pH 7.25 L ABG Total CO2 50.2 H ABG O2 Saturation 97.7 ABG Base Excess 14.6 H ABG Hemoglobin ABG Carboxyhemoglobin POC ABG HHb (Measured) ABG Methemoglobin Donta Test Na ABG Potassium 3.6 A-a O2 Difference 56.0 Respiratory Index 0.6 Hgb O2 Saturation Glucose 168 H Lactate 0.5 L Liter Flow Vent Mode Mechanical Rate 18 FiO2 40.0 Inspiratory BiPAP 16 Expiratory BiPAP 8 Crit Value Called To Bonnie gary Crit Value Called By Domonique collier Crit Value Read Back Y Blood Gas Notified Time 1646 Sodium 138 137.0 Potassium 4.9 Chloride 86 L 94.0 L Carbon Dioxide 43 H* D Anion Gap 14 BUN 18 H Creatinine 0.5 L Est GFR ( Amer) > 60 Est GFR (Non-Af Amer) > 60 POC Glucose (mg/dL) Random Glucose 158 H Hemoglobin A1c 6.8 H Calcium 9.0 Phosphorus Magnesium Total Bilirubin 0.6 AST 18 ALT 11 Alkaline Phosphatase 75 Troponin I 0.0200 Total Protein 7.3 Albumin 4.0 Globulin 3.3 Albumin/Globulin Ratio 1.2 Triglycerides 84 Cholesterol 174 LDL Cholesterol Direct 67 HDL Cholesterol 68 Arterial Blood Potassium 3.6 Urine Color Urine Clarity Urine pH Ur Specific [place] Urine Protein Urine Glucose (UA) Urine Ketones Urine Blood Urine Nitrate Urine Bilirubin Urine Urobilinogen Ur Leukocyte Esterase Urine WBC (Auto) Urine RBC (Auto) Ur Squamous Epith Cells Urine Bacteria Hyaline Casts 05/02/18 05/02/18 05/02/18 20:43 21:28 22:28 WBC RBC Hgb Hct MCV MCH MCHC RDW Plt Count MPV Neut % (Auto) Lymph % (Auto) Owen % (Auto) Eos % (Auto) Baso % (Auto) Neut # (Auto) Lymph # (Auto) Owen # (Auto) Eos # (Auto) Baso # (Auto) Neutrophils % (Manual) Band Neutrophils % Lymphocytes % (Manual) Monocytes % (Manual) Eosinophils % (Manual) Platelet Estimate Hypochromasia (manual) Anisocytosis (manual) PT INR APTT Puncture Site Rb Lb pCO2 113 H* 69 H pO2 118 H 58 L HCO3 33.0 H 27.3 ABG pH 7.19 L* 7.28 L ABG Total CO2 46.7 H 34.5 H ABG O2 Saturation 98.6 H 93.8 L ABG Base Excess 10.3 H 3.5 H ABG Hemoglobin ABG Carboxyhemoglobin POC ABG HHb (Measured) ABG Methemoglobin Donta Test Na Na ABG Potassium 3.5 L A-a O2 Difference -45.0 5.0 Respiratory Index -0.4 0.1 Hgb O2 Saturation Glucose 154 H Lactate 0.4 L Liter Flow Vent Mode Bipap Bipap Mechanical Rate FiO2 30.0 21.0 Inspiratory BiPAP 20 24 Expiratory BiPAP 8 8 Crit Value Called To Dr jones Crit Value Called By Ponce barrientos Crit Value Read Back Y Blood Gas Notified Time 2045 Sodium 137.0 Potassium Chloride 97.0 L Carbon Dioxide Anion Gap BUN Creatinine Est GFR ( Amer) Est GFR (Non-Af Amer) POC Glucose (mg/dL) 187 H Random Glucose Hemoglobin A1c Calcium Phosphorus Magnesium Total Bilirubin AST ALT Alkaline Phosphatase Troponin I Total Protein Albumin Globulin Albumin/Globulin Ratio Triglycerides Cholesterol LDL Cholesterol Direct HDL Cholesterol Arterial Blood Potassium 3.5 L Urine Color Urine Clarity Urine pH Ur Specific [place] Urine Protein Urine Glucose (UA) Urine Ketones Urine Blood Urine Nitrate Urine Bilirubin Urine Urobilinogen Ur Leukocyte Esterase Urine WBC (Auto) Urine RBC (Auto) Ur Squamous Epith Cells Urine Bacteria Hyaline Casts 05/02/18 05/03/18 05/03/18 23:12 05:30 06:13 WBC RBC Hgb Hct MCV MCH MCHC RDW Plt Count MPV Neut % (Auto) Lymph % (Auto) Owen % (Auto) Eos % (Auto) Baso % (Auto) Neut # (Auto) Lymph # (Auto) Owen # (Auto) Eos # (Auto) Baso # (Auto) Neutrophils % (Manual) Band Neutrophils % Lymphocytes % (Manual) Monocytes % (Manual) Eosinophils % (Manual) Platelet Estimate Hypochromasia (manual) Anisocytosis (manual) PT INR APTT Puncture Site R rad pCO2 70 H pO2 45 L HCO3 34.5 H ABG pH 7.37 ABG Total CO2 42.6 H ABG O2 Saturation 86.0 L ABG Base Excess 12.6 H ABG Hemoglobin 11.2 L ABG Carboxyhemoglobin 2.3 H POC ABG HHb (Measured) 13.6 H ABG Methemoglobin 0.9 Donta Test Pos ABG Potassium A-a O2 Difference 17.0 Respiratory Index 0.4 Hgb O2 Saturation 83.3 L Glucose Lactate Liter Flow 0 Vent Mode Mechanical Rate FiO2 21.0 Inspiratory BiPAP Expiratory BiPAP Crit Value Called To Crit Value Called By Crit Value Read Back Blood Gas Notified Time Sodium 137 Potassium 4.2 Chloride 91 L Carbon Dioxide 38 H Anion Gap 12 BUN 21 H Creatinine 0.7 Est GFR ( Amer) > 60 Est GFR (Non-Af Amer) > 60 POC Glucose (mg/dL) Random Glucose 211 H Hemoglobin A1c Calcium 8.8 Phosphorus 3.4 Magnesium 2.0 Total Bilirubin 0.3 AST 9 L D ALT 10 Alkaline Phosphatase 83 Troponin I Total Protein 6.7 Albumin 4.0 Globulin 2.7 Albumin/Globulin Ratio 1.5 Triglycerides Cholesterol LDL Cholesterol Direct HDL Cholesterol Arterial Blood Potassium Urine Color Yellow Urine Clarity Hazy Urine pH 5.0 Ur Specific [place] 1.012 Urine Protein 1+ H Urine Glucose (UA) Normal Urine Ketones Negative Urine Blood Negative Urine Nitrate Negative Urine Bilirubin Negative Urine Urobilinogen Normal Ur Leukocyte Esterase Neg Urine WBC (Auto) 1 Urine RBC (Auto) 2 Ur Squamous Epith Cells 1 Urine Bacteria Rare Hyaline Casts 3-5 H 05/03/18 05/03/18 06:18 07:49 WBC 10.9 H RBC 3.97 Hgb 11.4 Hct 35.7 MCV 89.9 MCH 28.8 MCHC 32.0 L RDW 15.1 H Plt Count 200 MPV 9.3 Neut % (Auto) 94.6 H Lymph % (Auto) 4.4 L Owen % (Auto) 1.0 Eos % (Auto) 0.0 Baso % (Auto) 0.0 Neut # (Auto) 10.3 H Lymph # (Auto) 0.5 L Owen # (Auto) 0.1 Eos # (Auto) 0.0 Baso # (Auto) 0.0 Neutrophils % (Manual) 90 H Band Neutrophils % 1 Lymphocytes % (Manual) 6 L Monocytes % (Manual) 1 Eosinophils % (Manual) 2 Platelet Estimate Normal Hypochromasia (manual) Slight Anisocytosis (manual) Slight PT INR APTT Puncture Site pCO2 pO2 HCO3 ABG pH ABG Total CO2 ABG O2 Saturation ABG Base Excess ABG Hemoglobin ABG Carboxyhemoglobin POC ABG HHb (Measured) ABG Methemoglobin Donta Test ABG Potassium A-a O2 Difference Respiratory Index Hgb O2 Saturation Glucose Lactate Liter Flow Vent Mode Mechanical Rate FiO2 Inspiratory BiPAP Expiratory BiPAP Crit Value Called To Crit Value Called By Crit Value Read Back Blood Gas Notified Time Sodium Potassium Chloride Carbon Dioxide Anion Gap BUN Creatinine Est GFR ( Amer) Est GFR (Non-Af Amer) POC Glucose (mg/dL) 207 H Random Glucose Hemoglobin A1c Calcium Phosphorus Magnesium Total Bilirubin AST ALT Alkaline Phosphatase Troponin I Total Protein Albumin Globulin Albumin/Globulin Ratio Triglycerides Cholesterol LDL Cholesterol Direct HDL Cholesterol Arterial Blood Potassium Urine Color Urine Clarity Urine pH Ur Specific [place] Urine Protein Urine Glucose (UA) Urine Ketones Urine Blood Urine Nitrate Urine Bilirubin Urine Urobilinogen Ur Leukocyte Esterase Urine WBC (Auto) Urine RBC (Auto) Ur Squamous Epith Cells Urine Bacteria Hyaline Casts EKG/Cardiology Studies: Cardiology / EKG Studies 05/02/18 15:12 EKG [ELECTROCARDIOGRAM] Stat Comment: Mode Of Transportation: BED Reason For Exam: cp 05/02/18 15:14 ELECTROCARDIOGRAM Stat Comment: Mode Of Transportation: BED Reason For Exam: code stroke Fingerstick Blood Sugar Results: 207 Review of Systems - Review of Systems Systems not reviewed;Unavailable: Altered Mental Status Assessment/Plan - Assessment and Plan (Free Text) Assessment: This is a 72 yo F with PMH of COPD, obstructive sleep apnea/obesity hypoventilation syndrome, bipolar disorder, depression, and Parkinson's disease who was transferred from retirement for shortness of breath and chest pressure. She was found to be hypercapneic and in respiratory distress, and was transferred to ICU on Bipap. Removed it this AM, became somnolent again, now back on Bipap pending repeat ABG. Plan: Neuro: -Somnolent, arousable with noxious physical stimuli briefly but rapidly returns to somnolence Likely CO2 Narcosis +/- hypoxia (pO2 45, pCO2 70 on ABG this AM) Resuming bipap, will reassess -CT head: No acute intracranial abnormality, Mild age-related global parenchymal volume loss. -Neuro consulted, appreciate all recs; AMS likely 2/2 hypoxia, nothing from Neurologic standpoint, signing off Cardio: -maintaining MAP > 65 -D5NS decreased to 60cc/hr -Lovenox 30mg SC daily for DVT ppx -Cardio consulted, appreciate all recs; recs hypoxia/hypercarbia management as per pulm, will adjust HTN meds, reports normal LV fxn on last Echo (December 2017) Pulmonary: -CXR today reviewed and compared to prior, appears unchanged, read as stable small to moderate L pleural effusion and cardiomegaly If pleural effusion persists on CXR tmr, can consider diuresis -ABG this AM reviewed and compared to prior, concerning acutely this AM for worsening hypoxia in setting of elevated pCO2 while on Nasal [place] pCO2 70, pO2 45, pH 7.37, HCO3 34.5, FiO2 21% Improved pCO2 since admission (maxed at 113 after arrival), but acutely worsening hypoxia since switch from Bipap to NC (118 -> 58 -> 45) Resume Bipap, will repeat ABG at Noon, reassess and adjust further as needed ; if no improvement may need to intubate -Continue Duonebs Q4 TIMOTEO, Solumedrol 60mg Q8 -Pulm consulted, appreciate all recs; recs holding abx, continue Bipap, steroids , nebs Holding Zithromax and Aztreonam GI: -Pepcid 20mg PO for ppx -AMS, so NPO; if awakens, can consider HHD with Consistent Carbs Renal: -BUN/Cr 21/0.7 -Continue to monitor I&Os -D5/NS decreased to 60cc/hr ID: -Leukocytosis improved from 13.9 to 10.9 -elevated leukocytosis without fever more likely 2/2 steroids than infectious process -abx held as per Pulm's recs, will continue to monitor Endo: -A1c 6.8 -ISS and accuchecks Heme: -H/H 11.4/35.7 -No signs of bleeding, continue to monitor -Lovenox 30 units SC for DVT ppx Dispo: ICU, restarted on Bipap pending repeat ABG to assess in response to worsening hypoxia and hypercarbia, may require intubation if Bipap unsuccessful FEN: NPO, D5NS 60cc/hr Access: Peripheral IV, R groin TLC Consults: Cardio, Pulm, Neuro (signed off), ICU Ppx: Pepcid for GI, Lovenox SC for DVT Code Status: Unknown, so Full by default Seen, reviewed, and discussed with attending, Dr. Burton <Lang Burton - Last Filed: 05/03/18 17:52> CCU Objective - Vital Signs / Intake & Output Vital Signs (Last 4 hours): Vital Signs Temp Pulse Resp BP Pulse Ox 05/03/18 16:03 72 23 114/68 90 L 05/03/18 16:00 98.2 F 71 21 98 05/03/18 15:00 71 20 98 05/03/18 14:00 82 17 96 Intake and Output (Last 8hrs): Intake & Output 05/03/18 05/03/18 05/03/18 06:59 14:59 22:59 Intake Total 1121.6 1130 240 Output Total 390 255 70 Balance 731.6 875 170 Weight 301 lb 2.423 oz Intake: IV 120 Intake, IV Amount 1001.6 870 180 Right Distal Port Femoral 101.6 Right Hand 0 Right Proximal Port 900 870 180 Femoral Oral 0 260 60 Output: Urine 390 255 70 Urethral ([place]) 390 255 70 Urine, Voided 0 Emesis 0 0 Other: # Bowel Movements 1 0 0 - Medications Active Medications: Active Medications Generic Name Dose Route Start Last Admin Trade Name Freq PRN Reason Stop Dose Admin Albuterol/Ipratropium 3 ml 05/02/18 20:00 05/03/18 15:43 Duoneb 3 Mg/0.5 Mg (3 Ml) Ud INH 3 ml RQ4 TIMOTEO Administration Enoxaparin Sodium 30 mg 05/03/18 10:00 05/03/18 10:11 Lovenox SC 30 mg DAILY TIMOTEO Administration Famotidine 20 mg 05/03/18 10:00 05/03/18 10:11 Pepcid IVP 20 mg DAILY TIMOTEO Administration Azithromycin 500 mg/ Sodium 250 mls @ 250 mls/hr 05/03/18 10:00 05/03/18 12: 25 Chloride IVPB 250 mls/hr DAILY TIMOTEO Administration Protocol Dopamine HCl/Dextrose 400 mg in 250 mls @ 10.247 mls/hr 05/02/18 21:49 06:00 Dopamine 400mg/250ml D5w IV 0 mcg/kg/min .Q24H PRN 0 mls/hr TITRATE PER MD ORDER Titration Protocol 2 MCG/KG/MIN Aztreonam 2 gm/ Sodium 100 mls @ 200 mls/hr 05/02/18 23:00 05/03/18 15:00 Chloride IVPB Not Given Q8H TIMOTEO Protocol Dextrose/Sodium Chloride 1,000 mls @ 60 mls/hr 05/03/18 10:54 05/03/18 11:30 Dextrose 5%/0.9% Ns 1000 Ml IV 60 mls/hr .[id number] TIMOTEO Administration Insulin Human Regular 0 unit 05/02/18 22:00 05/03/18 16:49 Novolin R SC 2 u ACHS TIMOTEO Administration Protocol Methylprednisolone 60 mg 05/02/18 22:00 05/03/18 14:30 Solu-Medrol IV 60 mg Q8 TIMOTEO Administration - Patient Studies Lab Studies: Lab Studies 05/03/18 05/03/18 05/03/18 Range/Units 15:59 11:46 11:26 WBC (4.8-10.8) K/uL RBC (3.80-5.20) Mil/uL Hgb (11.0-16.0) g/dL Hct (34.0-47.0) % MCV (81.0-99.0) fL MCH (27.0-31.0) pg MCHC (33.0-37.0) g/dL RDW (11.5-14.5) % Plt Count (130-400) K/uL MPV (7.2-11.7) fL Neut % (Auto) (50.0-75.0) % Lymph % (Auto) (20.0-40.0) % Owen % (Auto) (0.0-10.0) % Eos % (Auto) (0.0-4.0) % Baso % (Auto) (0.0-2.0) % Neut # (Auto) (1.8-7.0) K/uL Lymph # (Auto) (1.0-4.3) K/uL Owen # (Auto) (0.0-0.8) K/uL Eos # (Auto) (0.0-0.7) K/uL Baso # (Auto) (0.0-0.2) K/uL Neutrophils % (Manual) (50-75) % Band Neutrophils % (0-2) % Lymphocytes % (Manual) (20-40) % Monocytes % (Manual) (0-10) % Eosinophils % (Manual) (0-4) % Platelet Estimate (NORMAL) Hypochromasia (manual) Anisocytosis (manual) Puncture Site Rra pCO2 66 H (35-45) mm/Hg pO2 71 L (80-100) mm/Hg HCO3 33.9 H (21-28) mmol/L ABG pH 7.38 (7.35-7.45) ABG Total CO2 41.0 H (22-28) mmol/L ABG O2 Saturation 96.4 (95-98) % ABG Base Excess 11.6 H (-2.0-3.0) mmol/L ABG Hemoglobin 11.2 L (11.7-17.4) g/dL ABG Carboxyhemoglobin 2.0 H (0.5-1.5) % POC ABG HHb (Measured) 3.5 (0.0-5.0) % ABG Methemoglobin 1.2 (0.0-3.0) % Donta Test Po ABG Potassium (3.6-5.2) mmol/L A-a O2 Difference 25.0 mm/Hg Respiratory Index 0.4 Hgb O2 Saturation 93.3 L (95.0-98.0) % Sodium (132-148) mmol/l Chloride (98-107) mmol/L Glucose (65-105) mg/dl Lactate (0.7-2.1) mmol/L Liter Flow Vent Mode Bipap FiO2 25.0 % Inspiratory BiPAP 16 Expiratory BiPAP 8 Crit Value Called To Crit Value Called By Crit Value Read Back Blood Gas Notified Time Potassium (3.6-5.2) mmol/L Carbon Dioxide (22-30) mmol/L Anion Gap (10-20) BUN (7-17) mg/dL Creatinine (0.7-1.2) mg/dL Est GFR ( Amer) Est GFR (Non-Af Amer) POC Glucose (mg/dL) 164 H 190 H (65-110) mg/dL Random Glucose (65-105) mg/dL Calcium (8.6-10.4) mg/dl Phosphorus (2.5-4.5) mg/dL Magnesium (1.6-2.3) mg/dL Total Bilirubin (0.2-1.3) mg/dL AST (14-36) U/L ALT (9-52) U/L Alkaline Phosphatase (38-126) U/L Total Protein (6.3-8.3) g/dL Albumin (3.5-5.0) g/dL Globulin (2.2-3.9) gm/dL Albumin/Globulin Ratio (1.0-2.1) Arterial Blood Potassium (3.6-5.2) mmol/L Urine Color (YELLOW) Urine Clarity (Clear) Urine pH (5.0-8.0) Ur Specific [place] (1.003-1.030) Urine Protein (NEGATIVE) mg/dL Urine Glucose (UA) (Normal) mg/dL Urine Ketones (NEGATIVE) mg/dL Urine Blood (NEGATIVE) Urine Nitrate (NEGATIVE) Urine Bilirubin (NEGATIVE) Urine Urobilinogen (0.2-1.0) mg/dL Ur Leukocyte Esterase (Negative) Cony/uL Urine WBC (Auto) (0-5) /hpf Urine RBC (Auto) (0-3) /hpf Ur Squamous Epith Cells (0-5) /hpf Urine Bacteria (<OCC) Hyaline Casts (0-2) /lpf 05/03/18 05/03/18 05/03/18 Range/Units 07:49 06:18 06:13 WBC 10.9 H (4.8-10.8) K/uL RBC 3.97 (3.80-5.20) Mil/uL Hgb 11.4 (11.0-16.0) g/dL Hct 35.7 (34.0-47.0) % MCV 89.9 (81.0-99.0) fL MCH 28.8 (27.0-31.0) pg MCHC 32.0 L (33.0-37.0) g/dL RDW 15.1 H (11.5-14.5) % Plt Count 200 (130-400) K/uL MPV 9.3 (7.2-11.7) fL Neut % (Auto) 94.6 H (50.0-75.0) % Lymph % (Auto) 4.4 L (20.0-40.0) % Owen % (Auto) 1.0 (0.0-10.0) % Eos % (Auto) 0.0 (0.0-4.0) % Baso % (Auto) 0.0 (0.0-2.0) % Neut # (Auto) 10.3 H (1.8-7.0) K/uL Lymph # (Auto) 0.5 L (1.0-4.3) K/uL Owen # (Auto) 0.1 (0.0-0.8) K/uL Eos # (Auto) 0.0 (0.0-0.7) K/uL Baso # (Auto) 0.0 (0.0-0.2) K/uL Neutrophils % (Manual) 90 H (50-75) % Band Neutrophils % 1 (0-2) % Lymphocytes % (Manual) 6 L (20-40) % Monocytes % (Manual) 1 (0-10) % Eosinophils % (Manual) 2 (0-4) % Platelet Estimate Normal (NORMAL) Hypochromasia (manual) Slight Anisocytosis (manual) Slight Puncture Site pCO2 (35-45) mm/Hg pO2 (80-100) mm/Hg HCO3 (21-28) mmol/L ABG pH (7.35-7.45) ABG Total CO2 (22-28) mmol/L ABG O2 Saturation (95-98) % ABG Base Excess (-2.0-3.0) mmol/L ABG Hemoglobin (11.7-17.4) g/dL ABG Carboxyhemoglobin (0.5-1.5) % POC ABG HHb (Measured) (0.0-5.0) % ABG Methemoglobin (0.0-3.0) % Donta Test ABG Potassium (3.6-5.2) mmol/L A-a O2 Difference mm/Hg Respiratory Index Hgb O2 Saturation (95.0-98.0) % Sodium 137 (132-148) mmol/l Chloride 91 L (98-107) mmol/L Glucose (65-105) mg/dl Lactate (0.7-2.1) mmol/L Liter Flow Vent Mode FiO2 % Inspiratory BiPAP Expiratory BiPAP Crit Value Called To Crit Value Called By Crit Value Read Back Blood Gas Notified Time Potassium 4.2 (3.6-5.2) mmol/L Carbon Dioxide 38 H (22-30) mmol/L Anion Gap 12 (10-20) BUN 21 H (7-17) mg/dL Creatinine 0.7 (0.7-1.2) mg/dL Est GFR ( Amer) > 60 Est GFR (Non-Af Amer) > 60 POC Glucose (mg/dL) 207 H (65-110) mg/dL Random Glucose 211 H (65-105) mg/dL Calcium 8.8 (8.6-10.4) mg/dl Phosphorus 3.4 (2.5-4.5) mg/dL Magnesium 2.0 (1.6-2.3) mg/dL Total Bilirubin 0.3 (0.2-1.3) mg/dL AST 9 L D (14-36) U/L ALT 10 (9-52) U/L Alkaline Phosphatase 83 (38-126) U/L Total Protein 6.7 (6.3-8.3) g/dL Albumin 4.0 (3.5-5.0) g/dL Globulin 2.7 (2.2-3.9) gm/dL Albumin/Globulin Ratio 1.5 (1.0-2.1) Arterial Blood Potassium (3.6-5.2) mmol/L Urine Color (YELLOW) Urine Clarity (Clear) Urine pH (5.0-8.0) Ur Specific [place] (1.003-1.030) Urine Protein (NEGATIVE) mg/dL Urine Glucose (UA) (Normal) mg/dL Urine Ketones (NEGATIVE) mg/dL Urine Blood (NEGATIVE) Urine Nitrate (NEGATIVE) Urine Bilirubin (NEGATIVE) Urine Urobilinogen (0.2-1.0) mg/dL Ur Leukocyte Esterase (Negative) Cony/uL Urine WBC (Auto) (0-5) /hpf Urine RBC (Auto) (0-3) /hpf Ur Squamous Epith Cells (0-5) /hpf Urine Bacteria (<OCC) Hyaline Casts (0-2) /lpf 05/03/18 05/02/18 05/02/18 Range/Units 05:30 23:12 22:28 WBC (4.8-10.8) K/uL RBC (3.80-5.20) Mil/uL Hgb (11.0-16.0) g/dL Hct (34.0-47.0) % MCV (81.0-99.0) fL MCH (27.0-31.0) pg MCHC (33.0-37.0) g/dL RDW (11.5-14.5) % Plt Count (130-400) K/uL MPV (7.2-11.7) fL Neut % (Auto) (50.0-75.0) % Lymph % (Auto) (20.0-40.0) % Owen % (Auto) (0.0-10.0) % Eos % (Auto) (0.0-4.0) % Baso % (Auto) (0.0-2.0) % Neut # (Auto) (1.8-7.0) K/uL Lymph # (Auto) (1.0-4.3) K/uL Owen # (Auto) (0.0-0.8) K/uL Eos # (Auto) (0.0-0.7) K/uL Baso # (Auto) (0.0-0.2) K/uL Neutrophils % (Manual) (50-75) % Band Neutrophils % (0-2) % Lymphocytes % (Manual) (20-40) % Monocytes % (Manual) (0-10) % Eosinophils % (Manual) (0-4) % Platelet Estimate (NORMAL) Hypochromasia (manual) Anisocytosis (manual) Puncture Site R rad Lb pCO2 70 H 69 H (35-45) mm/Hg pO2 45 L 58 L (80-100) mm/Hg HCO3 34.5 H 27.3 (21-28) mmol/L ABG pH 7.37 7.28 L (7.35-7.45) ABG Total CO2 42.6 H 34.5 H (22-28) mmol/L ABG O2 Saturation 86.0 L 93.8 L (95-98) % ABG Base Excess 12.6 H 3.5 H (-2.0-3.0) mmol/L ABG Hemoglobin 11.2 L (11.7-17.4) g/dL ABG Carboxyhemoglobin 2.3 H (0.5-1.5) % POC ABG HHb (Measured) 13.6 H (0.0-5.0) % ABG Methemoglobin 0.9 (0.0-3.0) % Donta Test Pos Na ABG Potassium (3.6-5.2) mmol/L A-a O2 Difference 17.0 5.0 mm/Hg Respiratory Index 0.4 0.1 Hgb O2 Saturation 83.3 L (95.0-98.0) % Sodium (132-148) mmol/l Chloride (98-107) mmol/L Glucose (65-105) mg/dl Lactate (0.7-2.1) mmol/L Liter Flow 0 Vent Mode Bipap FiO2 21.0 21.0 % Inspiratory BiPAP 24 Expiratory BiPAP 8 Crit Value Called To Crit Value Called By Crit Value Read Back Blood Gas Notified Time Potassium (3.6-5.2) mmol/L Carbon Dioxide (22-30) mmol/L Anion Gap (10-20) BUN (7-17) mg/dL Creatinine (0.7-1.2) mg/dL Est GFR ( Amer) Est GFR (Non-Af Amer) POC Glucose (mg/dL) (65-110) mg/dL Random Glucose (65-105) mg/dL Calcium (8.6-10.4) mg/dl Phosphorus (2.5-4.5) mg/dL Magnesium (1.6-2.3) mg/dL Total Bilirubin (0.2-1.3) mg/dL AST (14-36) U/L ALT (9-52) U/L Alkaline Phosphatase (38-126) U/L Total Protein (6.3-8.3) g/dL Albumin (3.5-5.0) g/dL Globulin (2.2-3.9) gm/dL Albumin/Globulin Ratio (1.0-2.1) Arterial Blood Potassium (3.6-5.2) mmol/L Urine Color Yellow (YELLOW) Urine Clarity Hazy (Clear) Urine pH 5.0 (5.0-8.0) Ur Specific [place] 1.012 (1.003-1.030) Urine Protein 1+ H (NEGATIVE) mg/dL Urine Glucose (UA) Normal (Normal) mg/dL Urine Ketones Negative (NEGATIVE) mg/dL Urine Blood Negative (NEGATIVE) Urine Nitrate Negative (NEGATIVE) Urine Bilirubin Negative (NEGATIVE) Urine Urobilinogen Normal (0.2-1.0) mg/dL Ur Leukocyte Esterase Neg (Negative) Cony/uL Urine WBC (Auto) 1 (0-5) /hpf Urine RBC (Auto) 2 (0-3) /hpf Ur Squamous Epith Cells 1 (0-5) /hpf Urine Bacteria Rare (<OCC) Hyaline Casts 3-5 H (0-2) /lpf 05/02/18 05/02/18 Range/Units 21:28 20:43 WBC (4.8-10.8) K/uL RBC (3.80-5.20) Mil/uL Hgb (11.0-16.0) g/dL Hct (34.0-47.0) % MCV (81.0-99.0) fL MCH (27.0-31.0) pg MCHC (33.0-37.0) g/dL RDW (11.5-14.5) % Plt Count (130-400) K/uL MPV (7.2-11.7) fL Neut % (Auto) (50.0-75.0) % Lymph % (Auto) (20.0-40.0) % Owen % (Auto) (0.0-10.0) % Eos % (Auto) (0.0-4.0) % Baso % (Auto) (0.0-2.0) % Neut # (Auto) (1.8-7.0) K/uL Lymph # (Auto) (1.0-4.3) K/uL Owen # (Auto) (0.0-0.8) K/uL Eos # (Auto) (0.0-0.7) K/uL Baso # (Auto) (0.0-0.2) K/uL Neutrophils % (Manual) (50-75) % Band Neutrophils % (0-2) % Lymphocytes % (Manual) (20-40) % Monocytes % (Manual) (0-10) % Eosinophils % (Manual) (0-4) % Platelet Estimate (NORMAL) Hypochromasia (manual) Anisocytosis (manual) Puncture Site Rb pCO2 113 H* (35-45) mm/Hg pO2 118 H (80-100) mm/Hg HCO3 33.0 H (21-28) mmol/L ABG pH 7.19 L* (7.35-7.45) ABG Total CO2 46.7 H (22-28) mmol/L ABG O2 Saturation 98.6 H (95-98) % ABG Base Excess 10.3 H (-2.0-3.0) mmol/L ABG Hemoglobin (11.7-17.4) g/dL ABG Carboxyhemoglobin (0.5-1.5) % POC ABG HHb (Measured) (0.0-5.0) % ABG Methemoglobin (0.0-3.0) % Donta Test Na ABG Potassium 3.5 L (3.6-5.2) mmol/L A-a O2 Difference -45.0 mm/Hg Respiratory Index -0.4 Hgb O2 Saturation (95.0-98.0) % Sodium 137.0 (132-148) mmol/l Chloride 97.0 L (98-107) mmol/L Glucose 154 H (65-105) mg/dl Lactate 0.4 L (0.7-2.1) mmol/L Liter Flow Vent Mode Bipap FiO2 30.0 % Inspiratory BiPAP 20 Expiratory BiPAP 8 Crit Value Called To Dr jones Crit Value Called By Ponce barrientos Crit Value Read Back Y Blood Gas Notified Time 2045 Potassium (3.6-5.2) mmol/L Carbon Dioxide (22-30) mmol/L Anion Gap (10-20) BUN (7-17) mg/dL Creatinine (0.7-1.2) mg/dL Est GFR ( Amer) Est GFR (Non-Af Amer) POC Glucose (mg/dL) 187 H (65-110) mg/dL Random Glucose (65-105) mg/dL Calcium (8.6-10.4) mg/dl Phosphorus (2.5-4.5) mg/dL Magnesium (1.6-2.3) mg/dL Total Bilirubin (0.2-1.3) mg/dL AST (14-36) U/L ALT (9-52) U/L Alkaline Phosphatase (38-126) U/L Total Protein (6.3-8.3) g/dL Albumin (3.5-5.0) g/dL Globulin (2.2-3.9) gm/dL Albumin/Globulin Ratio (1.0-2.1) Arterial Blood Potassium 3.5 L (3.6-5.2) mmol/L Urine Color (YELLOW) Urine Clarity (Clear) Urine pH (5.0-8.0) Ur Specific [place] (1.003-1.030) Urine Protein (NEGATIVE) mg/dL Urine Glucose (UA) (Normal) mg/dL Urine Ketones (NEGATIVE) mg/dL Urine Blood (NEGATIVE) Urine Nitrate (NEGATIVE) Urine Bilirubin (NEGATIVE) Urine Urobilinogen (0.2-1.0) mg/dL Ur Leukocyte Esterase (Negative) Cony/uL Urine WBC (Auto) (0-5) /hpf Urine RBC (Auto) (0-3) /hpf Ur Squamous Epith Cells (0-5) /hpf Urine Bacteria (<OCC) Hyaline Casts (0-2) /lpf Laboratory Results - last 24 hr 05/02/18 05/02/18 05/02/18 20:43 21:28 22:28 WBC RBC Hgb Hct MCV MCH MCHC RDW Plt Count MPV Neut % (Auto) Lymph % (Auto) Owen % (Auto) Eos % (Auto) Baso % (Auto) Neut # (Auto) Lymph # (Auto) Owen # (Auto) Eos # (Auto) Baso # (Auto) Neutrophils % (Manual) Band Neutrophils % Lymphocytes % (Manual) Monocytes % (Manual) Eosinophils % (Manual) Platelet Estimate Hypochromasia (manual) Anisocytosis (manual) Puncture Site Rb Lb pCO2 113 H* 69 H pO2 118 H 58 L HCO3 33.0 H 27.3 ABG pH 7.19 L* 7.28 L ABG Total CO2 46.7 H 34.5 H ABG O2 Saturation 98.6 H 93.8 L ABG Base Excess 10.3 H 3.5 H ABG Hemoglobin ABG Carboxyhemoglobin POC ABG HHb (Measured) ABG Methemoglobin Donta Test Na Na ABG Potassium 3.5 L A-a O2 Difference -45.0 5.0 Respiratory Index -0.4 0.1 Hgb O2 Saturation Sodium 137.0 Chloride 97.0 L Glucose 154 H Lactate 0.4 L Liter Flow Vent Mode Bipap Bipap FiO2 30.0 21.0 Inspiratory BiPAP 20 24 Expiratory BiPAP 8 8 Crit Value Called To Dr jones Crit Value Called By Ponce barrientos Crit Value Read Back Y Blood Gas Notified Time 2045 Potassium Carbon Dioxide Anion Gap BUN Creatinine Est GFR ( Amer) Est GFR (Non-Af Amer) POC Glucose (mg/dL) 187 H Random Glucose Calcium Phosphorus Magnesium Total Bilirubin AST ALT Alkaline Phosphatase Total Protein Albumin Globulin Albumin/Globulin Ratio Arterial Blood Potassium 3.5 L Urine Color Urine Clarity Urine pH Ur Specific [place] Urine Protein Urine Glucose (UA) Urine Ketones Urine Blood Urine Nitrate Urine Bilirubin Urine Urobilinogen Ur Leukocyte Esterase Urine WBC (Auto) Urine RBC (Auto) Ur Squamous Epith Cells Urine Bacteria Hyaline Casts 05/02/18 05/03/18 05/03/18 23:12 05:30 06:13 WBC RBC Hgb Hct MCV MCH MCHC RDW Plt Count MPV Neut % (Auto) Lymph % (Auto) Owen % (Auto) Eos % (Auto) Baso % (Auto) Neut # (Auto) Lymph # (Auto) Owen # (Auto) Eos # (Auto) Baso # (Auto) Neutrophils % (Manual) Band Neutrophils % Lymphocytes % (Manual) Monocytes % (Manual) Eosinophils % (Manual) Platelet Estimate Hypochromasia (manual) Anisocytosis (manual) Puncture Site R rad pCO2 70 H pO2 45 L HCO3 34.5 H ABG pH 7.37 ABG Total CO2 42.6 H ABG O2 Saturation 86.0 L ABG Base Excess 12.6 H ABG Hemoglobin 11.2 L ABG Carboxyhemoglobin 2.3 H POC ABG HHb (Measured) 13.6 H ABG Methemoglobin 0.9 Donta Test Pos ABG Potassium A-a O2 Difference 17.0 Respiratory Index 0.4 Hgb O2 Saturation 83.3 L Sodium 137 Chloride 91 L Glucose Lactate Liter Flow 0 Vent Mode FiO2 21.0 Inspiratory BiPAP Expiratory BiPAP Crit Value Called To Crit Value Called By Crit Value Read Back Blood Gas Notified Time Potassium 4.2 Carbon Dioxide 38 H Anion Gap 12 BUN 21 H Creatinine 0.7 Est GFR ( Amer) > 60 Est GFR (Non-Af Amer) > 60 POC Glucose (mg/dL) Random Glucose 211 H Calcium 8.8 Phosphorus 3.4 Magnesium 2.0 Total Bilirubin 0.3 AST 9 L D ALT 10 Alkaline Phosphatase 83 Total Protein 6.7 Albumin 4.0 Globulin 2.7 Albumin/Globulin Ratio 1.5 Arterial Blood Potassium Urine Color Yellow Urine Clarity Hazy Urine pH 5.0 Ur Specific [place] 1.012 Urine Protein 1+ H Urine Glucose (UA) Normal Urine Ketones Negative Urine Blood Negative Urine Nitrate Negative Urine Bilirubin Negative Urine Urobilinogen Normal Ur Leukocyte Esterase Neg Urine WBC (Auto) 1 Urine RBC (Auto) 2 Ur Squamous Epith Cells 1 Urine Bacteria Rare Hyaline Casts 3-5 H 05/03/18 05/03/18 05/03/18 06:18 07:49 11:26 WBC 10.9 H RBC 3.97 Hgb 11.4 Hct 35.7 MCV 89.9 MCH 28.8 MCHC 32.0 L RDW 15.1 H Plt Count 200 MPV 9.3 Neut % (Auto) 94.6 H Lymph % (Auto) 4.4 L Owen % (Auto) 1.0 Eos % (Auto) 0.0 Baso % (Auto) 0.0 Neut # (Auto) 10.3 H Lymph # (Auto) 0.5 L Owen # (Auto) 0.1 Eos # (Auto) 0.0 Baso # (Auto) 0.0 Neutrophils % (Manual) 90 H Band Neutrophils % 1 Lymphocytes % (Manual) 6 L Monocytes % (Manual) 1 Eosinophils % (Manual) 2 Platelet Estimate Normal Hypochromasia (manual) Slight Anisocytosis (manual) Slight Puncture Site pCO2 pO2 HCO3 ABG pH ABG Total CO2 ABG O2 Saturation ABG Base Excess ABG Hemoglobin ABG Carboxyhemoglobin POC ABG HHb (Measured) ABG Methemoglobin Donta Test ABG Potassium A-a O2 Difference Respiratory Index Hgb O2 Saturation Sodium Chloride Glucose Lactate Liter Flow Vent Mode FiO2 Inspiratory BiPAP Expiratory BiPAP Crit Value Called To Crit Value Called By Crit Value Read Back Blood Gas Notified Time Potassium Carbon Dioxide Anion Gap BUN Creatinine Est GFR ( Amer) Est GFR (Non-Af Amer) POC Glucose (mg/dL) 207 H 190 H Random Glucose Calcium Phosphorus Magnesium Total Bilirubin AST ALT Alkaline Phosphatase Total Protein Albumin Globulin Albumin/Globulin Ratio Arterial Blood Potassium Urine Color Urine Clarity Urine pH Ur Specific [place] Urine Protein Urine Glucose (UA) Urine Ketones Urine Blood Urine Nitrate Urine Bilirubin Urine Urobilinogen Ur Leukocyte Esterase Urine WBC (Auto) Urine RBC (Auto) Ur Squamous Epith Cells Urine Bacteria Hyaline Casts 05/03/18 05/03/18 11:46 15:59 WBC RBC Hgb Hct MCV MCH MCHC RDW Plt Count MPV Neut % (Auto) Lymph % (Auto) [place] % (Auto) Eos % (Auto) Baso % (Auto) Neut # (Auto) Lymph # (Auto) [place] # (Auto) Eos # (Auto) Baso # (Auto) Neutrophils % (Manual) Band Neutrophils % Lymphocytes % (Manual) Monocytes % (Manual) Eosinophils % (Manual) Platelet Estimate Hypochromasia (manual) Anisocytosis (manual) Puncture Site Rra pCO2 66 H pO2 71 L HCO3 33.9 H ABG pH 7.38 ABG Total CO2 41.0 H ABG O2 Saturation 96.4 ABG Base Excess 11.6 H ABG Hemoglobin 11.2 L ABG Carboxyhemoglobin 2.0 H POC ABG HHb (Measured) 3.5 ABG Methemoglobin 1.2 Donta Test Po ABG Potassium A-a O2 Difference 25.0 Respiratory Index 0.4 Hgb O2 Saturation 93.3 L Sodium Chloride Glucose Lactate Liter Flow Vent Mode Bipap FiO2 25.0 Inspiratory BiPAP 16 Expiratory BiPAP 8 Crit Value Called To Crit Value Called By Crit Value Read Back Blood Gas Notified Time Potassium Carbon Dioxide Anion Gap BUN Creatinine Est GFR ( Amer) Est GFR (Non-Af Amer) POC Glucose (mg/dL) 164 H Random Glucose Calcium Phosphorus Magnesium Total Bilirubin AST ALT Alkaline Phosphatase Total Protein Albumin Globulin Albumin/Globulin Ratio Arterial Blood Potassium Urine Color Urine Clarity Urine pH Ur Specific [place] Urine Protein Urine Glucose (UA) Urine Ketones Urine Blood Urine Nitrate Urine Bilirubin Urine Urobilinogen Ur Leukocyte Esterase Urine WBC (Auto) Urine RBC (Auto) Ur Squamous Epith Cells Urine Bacteria Hyaline Casts Critical Care Progress Note - Nutrition Nutrition: Nutrition Category Date Time Status Heart Healthy Diet [DIET] Diets 05/03/18 Lunch Active Attending/Attestation - Attestation I have personally seen and examined this patient.: Yes I have fully participated in the care of the patient.: Yes I have reviewed all pertinent clinical information: Yes Notes (Text): 05/03/18 17:51 I have seen and examined the patient. Medical records, lab studies, and imaging were reviewed by me and a management plan was formulated on multidisciplinary rounds with resident Dr. Garcia. I agree with their documented assessment and plan. Patient is improving on BIPAP. Continue steroids and abx for COPD exacerbation with concomitant FESTUS and OHS. Critical Care Time 35 minutes. Multi-disciplinary rounds were performed with house staff, nursing, speech therapy, respiratory therapy, pharmacy and nutrition with integrated input from the primary team/attending and other consulting services. The documented time is cumulative and includes review of patient data/exams/labs/chart review and examination of the patient on rounds and throughout the day; time is exclusive of any procedures or teaching time.
[2018-05-03] MEDS: Enoxaparin 30 mg Syringe SC SCH (10:11)
--- NOTE | 2018-05-03 11:04 | CP.PCM.CON ---
History of Present Illness - History of Present Illness History of Present Illness: reason for consultation: hypercapnic respiratory failure 72 year old female patient with past medical history of morbid obesity, COPD, hypertension, sleep apnea and diabetes presented to the ED from [facility] with complaint of altered mental status. Patient has history of multiple admissions due to hypercarbia. Patient is awake and responsive. Patient is currently on BiPAP. Patient is in no acute distress. Patient is afebrile. Chest X-ray showed no active pulmonary disease. Patient has no acute complaints. PMH: Anemia, anxiety, arthritis, bipolar disorder, COPD, dementia, depression, hypertension, hypothryroidism, Parkinson's Disease, sleep apnea Meds: Review of Systems - Review of Systems All systems: reviewed and no additional remarkable complaints except (change in mental status) Past Patient History - Infectious Disease Hx of Infectious Diseases: None, VRE - Tetanus Immunizations Tetanus Immunization: Unknown - Past Medical History & Family History Past Medical History?: Yes - Past Social History Smoking Status: Never Smoked - CARDIAC Hx Hypertension: Yes - PULMONARY Hx Chronic Obstructive Pulmonary Disease (COPD): Yes Hx Sleep Apnea: Yes (on Bipap) - NEUROLOGICAL Hx Dementia: Yes Hx Parkinson's Disease: Yes - HEENT Hx HEENT Problems: No - RENAL Hx Chronic Kidney Disease: No - ENDOCRINE/METABOLIC Hx Hypothyroidism: Yes - HEMATOLOGICAL/ONCOLOGICAL Hx Anemia: Yes - INTEGUMENTARY Hx Dermatological Problems: No - MUSCULOSKELETAL/RHEUMATOLOGICAL Hx Arthritis: Yes - GASTROINTESTINAL Hx Gastrointestinal Disorders: Yes Hx Constipation: Yes Hx Gastroesophageal Reflux: Yes - GENITOURINARY/GYNECOLOGICAL Hx Genitourinary Disorders: Yes Hx Incontinence: Yes Hx Urinary Tract Infection: Yes - PSYCHIATRIC Hx Anxiety: Yes Hx Bipolar Disorder: Yes Hx Depression: Yes Hx Substance Use: No - SURGICAL HISTORY Hx Surgeries: Yes Hx Hysterectomy: Yes Hx Orthopedic Surgery: Yes Other/Comment: right knee replacement 2014; right knee prosthesis removal s/p infection 2014 - ANESTHESIA Hx Anesthesia: Yes Hx Anesthesia Reactions: No Hx Malignant Hyperthermia: No Meds Allergies/Adverse Reactions: Allergies Allergy/AdvReac Type Severity Reaction Status Date / Time Cephalosporins Allergy Intermediate RASH Verified 05/02/18 15:14 Penicillins Allergy Intermediate RASH Verified 05/02/18 15:14 clonazepam [From Klonopin] Allergy Verified 05/02/18 15:14 mustard Allergy Intermediate RASH Uncoded 04/08/18 20:07 - Medications Medications: Current Medications Albuterol/Ipratropium (Duoneb 3 Mg/0.5 Mg (3 Ml) Ud) 3 ml INH RQ4 [facility] Last Admin: 05/03/18 07:59 Dose: 3 ml Enoxaparin Sodium (Lovenox) 30 mg SC DAILY [facility] Last Admin: 05/03/18 10:11 Dose: 30 mg Famotidine (Pepcid) 20 mg IVP DAILY [facility] Last Admin: 05/03/18 10:11 Dose: 20 mg Azithromycin 500 mg/ Sodium (Chloride) 250 mls @ 250 mls/hr IVPB DAILY [facility] PRN Reason: Protocol Dopamine HCl/Dextrose (Dopamine 400mg/250ml D5w) 400 mg in 250 mls @ 10.247 mls /hr IV .Q24H PRN; Protocol; 2 MCG/KG/MIN PRN Reason: TITRATE PER MD ORDER Last Titration: 05/03/18 06:00 Dose: 0 mcg/kg/min, 0 mls/hr Aztreonam 2 gm/ Sodium (Chloride) 100 mls @ 200 mls/hr IVPB Q8H [facility] PRN Reason: Protocol Last Admin: 05/03/18 06:01 Dose: 200 mls/hr Dextrose/Sodium Chloride (Dextrose 5%/0.9% Ns 1000 Ml) 1,000 mls @ 60 mls/hr IV .[id number] [facility] Insulin Human Regular (Novolin R) 0 unit SC ACHS [facility] PRN Reason: Protocol Last Admin: 05/03/18 08:16 Dose: 3 u Methylprednisolone (Solu-Medrol) 60 mg IV Q8 [facility] Last Admin: 05/03/18 06:00 Dose: 60 mg Physical Exam - Head Exam Head Exam: ATRAUMATIC, NORMOCEPHALIC - Eye Exam Eye Exam: Normal appearance - ENT Exam ENT Exam: Mucous Membranes Moist - Respiratory Exam Respiratory Exam: Decreased Breath Sounds - Cardiovascular Exam Cardiovascular Exam: REGULAR RHYTHM Results - Vital Signs Recent Vital Signs: Last Vital Signs Temp 98.5 F 05/03/18 04:00 Pulse 57 L 05/03/18 07:36 Resp 26 H 05/03/18 07:36 BP 144/82 05/03/18 07:36 Pulse Ox 96 05/03/18 07:36 - Labs Result Diagrams: 05/03/18 06:18 05/03/18 06:13 Labs: Laboratory Results - last 24 hr 05/02/18 05/02/18 05/02/18 15:07 15:25 15:25 WBC 13.9 H RBC 4.38 Hgb 12.4 Hct 39.3 MCV 89.7 D MCH 28.3 MCHC 31.5 L RDW 15.2 H Plt Count 224 MPV 8.9 Neut % (Auto) 87.9 H Lymph % (Auto) 8.0 L [place] % (Auto) 2.9 Eos % (Auto) 0.5 Baso % (Auto) 0.7 Neut # (Auto) 12.2 H Lymph # (Auto) 1.1 [place] # (Auto) 0.4 Eos # (Auto) 0.1 Baso # (Auto) 0.1 Neutrophils % (Manual) 86 H Band Neutrophils % Lymphocytes % (Manual) 12 L Monocytes % (Manual) 2 Eosinophils % (Manual) Platelet Estimate Normal Hypochromasia (manual) Anisocytosis (manual) PT 10.1 INR 0.9 APTT 36 H Puncture Site pCO2 pO2 HCO3 ABG pH ABG Total CO2 ABG O2 Saturation ABG Base Excess ABG Hemoglobin ABG Carboxyhemoglobin POC ABG HHb (Measured) ABG Methemoglobin Donta Test ABG Potassium A-a O2 Difference Respiratory Index Hgb O2 Saturation Glucose Lactate Liter Flow Vent Mode Mechanical Rate FiO2 Inspiratory BiPAP Expiratory BiPAP Crit Value Called To Crit Value Called By Crit Value Read Back Blood Gas Notified Time Sodium Potassium Chloride Carbon Dioxide Anion Gap BUN Creatinine Est GFR ( Amer) Est GFR (Non-Af Amer) POC Glucose (mg/dL) 157 H Random Glucose Hemoglobin A1c Calcium Phosphorus Magnesium Total Bilirubin AST ALT Alkaline Phosphatase Troponin I Total Protein Albumin Globulin Albumin/Globulin Ratio Triglycerides Cholesterol LDL Cholesterol Direct HDL Cholesterol Arterial Blood Potassium Urine Color Urine Clarity Urine pH Ur Specific [place] Urine Protein Urine Glucose (UA) Urine Ketones Urine Blood Urine Nitrate Urine Bilirubin Urine Urobilinogen Ur Leukocyte Esterase Urine WBC (Auto) Urine RBC (Auto) Ur Squamous Epith Cells Urine Bacteria Hyaline Casts 05/02/18 05/02/18 05/02/18 15:25 15:25 16:40 WBC RBC Hgb Hct MCV MCH MCHC RDW Plt Count MPV Neut % (Auto) Lymph % (Auto) [place] % (Auto) Eos % (Auto) Baso % (Auto) Neut # (Auto) Lymph # (Auto) [place] # (Auto) Eos # (Auto) Baso # (Auto) Neutrophils % (Manual) Band Neutrophils % Lymphocytes % (Manual) Monocytes % (Manual) Eosinophils % (Manual) Platelet Estimate Hypochromasia (manual) Anisocytosis (manual) PT INR APTT Puncture Site Rb pCO2 107 H* pO2 95 HCO3 36.3 H ABG pH 7.25 L ABG Total CO2 50.2 H ABG O2 Saturation 97.7 ABG Base Excess 14.6 H ABG Hemoglobin ABG Carboxyhemoglobin POC ABG HHb (Measured) ABG Methemoglobin Donta Test Na ABG Potassium 3.6 A-a O2 Difference 56.0 Respiratory Index 0.6 Hgb O2 Saturation Glucose 168 H Lactate 0.5 L Liter Flow Vent Mode Mechanical Rate 18 FiO2 40.0 Inspiratory BiPAP 16 Expiratory BiPAP 8 Crit Value Called To Bonnie gary Crit Value Called By Domonique collier Crit Value Read Back Y Blood Gas Notified Time 1646 Sodium 138 137.0 Potassium 4.9 Chloride 86 L 94.0 L Carbon Dioxide 43 H* D Anion Gap 14 BUN 18 H Creatinine 0.5 L Est GFR ( Amer) > 60 Est GFR (Non-Af Amer) > 60 POC Glucose (mg/dL) Random Glucose 158 H Hemoglobin A1c 6.8 H Calcium 9.0 Phosphorus Magnesium Total Bilirubin 0.6 AST 18 ALT 11 Alkaline Phosphatase 75 Troponin I 0.0200 Total Protein 7.3 Albumin 4.0 Globulin 3.3 Albumin/Globulin Ratio 1.2 Triglycerides 84 Cholesterol 174 LDL Cholesterol Direct 67 HDL Cholesterol 68 Arterial Blood Potassium 3.6 Urine Color Urine Clarity Urine pH Ur Specific [place] Urine Protein Urine Glucose (UA) Urine Ketones Urine Blood Urine Nitrate Urine Bilirubin Urine Urobilinogen Ur Leukocyte Esterase Urine WBC (Auto) Urine RBC (Auto) Ur Squamous Epith Cells Urine Bacteria Hyaline Casts 05/02/18 05/02/18 05/02/18 20:43 21:28 22:28 WBC RBC Hgb Hct MCV MCH MCHC RDW Plt Count MPV Neut % (Auto) Lymph % (Auto) [place] % (Auto) Eos % (Auto) Baso % (Auto) Neut # (Auto) Lymph # (Auto) [place] # (Auto) Eos # (Auto) Baso # (Auto) Neutrophils % (Manual) Band Neutrophils % Lymphocytes % (Manual) Monocytes % (Manual) Eosinophils % (Manual) Platelet Estimate Hypochromasia (manual) Anisocytosis (manual) PT INR APTT Puncture Site Rb Lb pCO2 113 H* 69 H pO2 118 H 58 L HCO3 33.0 H 27.3 ABG pH 7.19 L* 7.28 L ABG Total CO2 46.7 H 34.5 H ABG O2 Saturation 98.6 H 93.8 L ABG Base Excess 10.3 H 3.5 H ABG Hemoglobin ABG Carboxyhemoglobin POC ABG HHb (Measured) ABG Methemoglobin Donta Test Na Na ABG Potassium 3.5 L A-a O2 Difference -45.0 5.0 Respiratory Index -0.4 0.1 Hgb O2 Saturation Glucose 154 H Lactate 0.4 L Liter Flow Vent Mode Bipap Bipap Mechanical Rate FiO2 30.0 21.0 Inspiratory BiPAP 20 24 Expiratory BiPAP 8 8 Crit Value Called To Dr jones Crit Value Called By Ponce barrientos Crit Value Read Back Y Blood Gas Notified Time 2045 Sodium 137.0 Potassium Chloride 97.0 L Carbon Dioxide Anion Gap BUN Creatinine Est GFR ( Amer) Est GFR (Non-Af Amer) POC Glucose (mg/dL) 187 H Random Glucose Hemoglobin A1c Calcium Phosphorus Magnesium Total Bilirubin AST ALT Alkaline Phosphatase Troponin I Total Protein Albumin Globulin Albumin/Globulin Ratio Triglycerides Cholesterol LDL Cholesterol Direct HDL Cholesterol Arterial Blood Potassium 3.5 L Urine Color Urine Clarity Urine pH Ur Specific [place] Urine Protein Urine Glucose (UA) Urine Ketones Urine Blood Urine Nitrate Urine Bilirubin Urine Urobilinogen Ur Leukocyte Esterase Urine WBC (Auto) Urine RBC (Auto) Ur Squamous Epith Cells Urine Bacteria Hyaline Casts 05/02/18 05/03/18 05/03/18 23:12 05:30 06:13 WBC RBC Hgb Hct MCV MCH MCHC RDW Plt Count MPV Neut % (Auto) Lymph % (Auto) [place] % (Auto) Eos % (Auto) Baso % (Auto) Neut # (Auto) Lymph # (Auto) [place] # (Auto) Eos # (Auto) Baso # (Auto) Neutrophils % (Manual) Band Neutrophils % Lymphocytes % (Manual) Monocytes % (Manual) Eosinophils % (Manual) Platelet Estimate Hypochromasia (manual) Anisocytosis (manual) PT INR APTT Puncture Site R rad pCO2 70 H pO2 45 L HCO3 34.5 H ABG pH 7.37 ABG Total CO2 42.6 H ABG O2 Saturation 86.0 L ABG Base Excess 12.6 H ABG Hemoglobin 11.2 L ABG Carboxyhemoglobin 2.3 H POC ABG HHb (Measured) 13.6 H ABG Methemoglobin 0.9 Donta Test Pos ABG Potassium A-a O2 Difference 17.0 Respiratory Index 0.4 Hgb O2 Saturation 83.3 L Glucose Lactate Liter Flow 0 Vent Mode Mechanical Rate FiO2 21.0 Inspiratory BiPAP Expiratory BiPAP Crit Value Called To Crit Value Called By Crit Value Read Back Blood Gas Notified Time Sodium 137 Potassium 4.2 Chloride 91 L Carbon Dioxide 38 H Anion Gap 12 BUN 21 H Creatinine 0.7 Est GFR ( Amer) > 60 Est GFR (Non-Af Amer) > 60 POC Glucose (mg/dL) Random Glucose 211 H Hemoglobin A1c Calcium 8.8 Phosphorus 3.4 Magnesium 2.0 Total Bilirubin 0.3 AST 9 L D ALT 10 Alkaline Phosphatase 83 Troponin I Total Protein 6.7 Albumin 4.0 Globulin 2.7 Albumin/Globulin Ratio 1.5 Triglycerides Cholesterol LDL Cholesterol Direct HDL Cholesterol Arterial Blood Potassium Urine Color Yellow Urine Clarity Hazy Urine pH 5.0 Ur Specific [place] 1.012 Urine Protein 1+ H Urine Glucose (UA) Normal Urine Ketones Negative Urine Blood Negative Urine Nitrate Negative Urine Bilirubin Negative Urine Urobilinogen Normal Ur Leukocyte Esterase Neg Urine WBC (Auto) 1 Urine RBC (Auto) 2 Ur Squamous Epith Cells 1 Urine Bacteria Rare Hyaline Casts 3-5 H 15/18 05/03/18 06:18 07:49 WBC 10.9 H RBC 3.97 Hgb 11.4 Hct 35.7 MCV 89.9 MCH 28.8 MCHC 32.0 L RDW 15.1 H Plt Count 200 MPV 9.3 Neut % (Auto) 94.6 H Lymph % (Auto) 4.4 L [place] % (Auto) 1.0 Eos % (Auto) 0.0 Baso % (Auto) 0.0 Neut # (Auto) 10.3 H Lymph # (Auto) 0.5 L [place] # (Auto) 0.1 Eos # (Auto) 0.0 Baso # (Auto) 0.0 Neutrophils % (Manual) 90 H Band Neutrophils % 1 Lymphocytes % (Manual) 6 L Monocytes % (Manual) 1 Eosinophils % (Manual) 2 Platelet Estimate Normal Hypochromasia (manual) Slight Anisocytosis (manual) Slight PT INR APTT Puncture Site pCO2 pO2 HCO3 ABG pH ABG Total CO2 ABG O2 Saturation ABG Base Excess ABG Hemoglobin ABG Carboxyhemoglobin POC ABG HHb (Measured) ABG Methemoglobin Donta Test ABG Potassium A-a O2 Difference Respiratory Index Hgb O2 Saturation Glucose Lactate Liter Flow Vent Mode Mechanical Rate FiO2 Inspiratory BiPAP Expiratory BiPAP Crit Value Called To Crit Value Called By Crit Value Read Back Blood Gas Notified Time Sodium Potassium Chloride Carbon Dioxide Anion Gap BUN Creatinine Est GFR ( Amer) Est GFR (Non-Af Amer) POC Glucose (mg/dL) 207 H Random Glucose Hemoglobin A1c Calcium Phosphorus Magnesium Total Bilirubin AST ALT Alkaline Phosphatase Troponin I Total Protein Albumin Globulin Albumin/Globulin Ratio Triglycerides Cholesterol LDL Cholesterol Direct HDL Cholesterol Arterial Blood Potassium Urine Color Urine Clarity Urine pH Ur Specific [place] Urine Protein Urine Glucose (UA) Urine Ketones Urine Blood Urine Nitrate Urine Bilirubin Urine Urobilinogen Ur Leukocyte Esterase Urine WBC (Auto) Urine RBC (Auto) Ur Squamous Epith Cells Urine Bacteria Hyaline Casts Assessment & Plan (1) Acute respiratory failure with hypercapnia Status: Acute Priority: High Comment: continue BiPAP. Followup ABG. Nebulizer treatment. IV steroids. Stop antibiotic (2) FESTUS (obstructive sleep apnea) Status: Chronic (3) COPD (chronic obstructive pulmonary disease) Status: Acute Priority: High
--- NOTE | 2018-05-03 11:29 | RAD ---
Date of service: 05/03/2018 HISTORY: r/o pneumonia COMPARISON: Chest radiograph dated 05/02/2018. FINDINGS: LUNGS: Left basilar atelectasis. PLEURA: Stable elevation right hemidiaphragm. Stable small to moderate left pleural effusion. No pneumothorax apparent. CARDIOVASCULAR: Atherosclerotic aortic calcification cardiomediastinal silhouette stably enlarged. OSSEOUS STRUCTURES: Unchanged. VISUALIZED UPPER ABDOMEN: Normal. OTHER FINDINGS: None. IMPRESSION: Stable small to moderate left pleural effusion.
[2018-05-03 11:50] LABS: ABG ALLEN TEST PO; ARTERIAL BLOOD GAS HCO3 33.9 mmol/L (21-28); ARTERIAL BLOOD GAS HEMOGLOBIN 11.2 g/dL (11.7-17.4); ARTERIAL BLOOD GAS O2 SAT 96.4 % (95-98); ARTERIAL BLOOD GAS PCO2 66 mm/Hg (35-45); ARTERIAL BLOOD GAS PH 7.38 (7.35-7.45); ARTERIAL BLOOD GAS PO2 71 mm/Hg (80-100)
[2018-05-03] MEDS: Azithromycin 500 MG in Sodium Chloride 0.9% 250 ML IVPB SCH (12:25)
--- NOTE | 2018-05-03 14:15 | CP.PCM.CON ---
History of Present Illness - History of Present Illness History of Present Illness: Neurology Consultation Note: Mrs. George is a 72-year-old woman, who is admitted for respiratory distress and had altered mental status. Currently, the patient is conversant and states that she is feeling better. She is still confused about the date, but knows she is in the ICU. She said she needs to go home. Review of Systems - Review of Systems All systems: reviewed and no additional remarkable complaints except Past Patient History - Infectious Disease Hx of Infectious Diseases: None, VRE - Tetanus Immunizations Tetanus Immunization: Unknown - Past Medical History & Family History Past Medical History?: Yes - Past Social History Smoking Status: Never Smoked - CARDIAC Hx Hypertension: Yes - PULMONARY Hx Chronic Obstructive Pulmonary Disease (COPD): Yes Hx Sleep Apnea: Yes (on Bipap) - NEUROLOGICAL Hx Dementia: Yes Hx Parkinson's Disease: Yes - HEENT Hx HEENT Problems: No - RENAL Hx Chronic Kidney Disease: No - ENDOCRINE/METABOLIC Hx Hypothyroidism: Yes - HEMATOLOGICAL/ONCOLOGICAL Hx Anemia: Yes - INTEGUMENTARY Hx Dermatological Problems: No - MUSCULOSKELETAL/RHEUMATOLOGICAL Hx Arthritis: Yes - GASTROINTESTINAL Hx Gastrointestinal Disorders: Yes Hx Constipation: Yes Hx Gastroesophageal Reflux: Yes - GENITOURINARY/GYNECOLOGICAL Hx Genitourinary Disorders: Yes Hx Incontinence: Yes Hx Urinary Tract Infection: Yes - PSYCHIATRIC Hx Anxiety: Yes Hx Bipolar Disorder: Yes Hx Depression: Yes Hx Substance Use: No - SURGICAL HISTORY Hx Surgeries: Yes Hx Hysterectomy: Yes Hx Orthopedic Surgery: Yes Other/Comment: right knee replacement 2014; right knee prosthesis removal s/p infection 2014 - ANESTHESIA Hx Anesthesia: Yes Hx Anesthesia Reactions: No Hx Malignant Hyperthermia: No Meds Allergies/Adverse Reactions: Allergies Allergy/AdvReac Type Severity Reaction Status Date / Time Cephalosporins Allergy Intermediate RASH Verified 05/02/18 15:14 Penicillins Allergy Intermediate RASH Verified 05/02/18 15:14 clonazepam [From Klonopin] Allergy Verified 05/02/18 15:14 mustard Allergy Intermediate RASH Uncoded 04/08/18 20:07 - Medications Medications: Current Medications Albuterol/Ipratropium (Duoneb 3 Mg/0.5 Mg (3 Ml) Ud) 3 ml INH RQ4 [facility] Last Admin: 05/03/18 11:09 Dose: 3 ml Enoxaparin Sodium (Lovenox) 30 mg SC DAILY [facility] Last Admin: 05/03/18 10:11 Dose: 30 mg Famotidine (Pepcid) 20 mg IVP DAILY [facility] Last Admin: 05/03/18 10:11 Dose: 20 mg Azithromycin 500 mg/ Sodium (Chloride) 250 mls @ 250 mls/hr IVPB DAILY [facility] PRN Reason: Protocol Last Admin: 05/03/18 12:25 Dose: 250 mls/hr Dopamine HCl/Dextrose (Dopamine 400mg/250ml D5w) 400 mg in 250 mls @ 10.247 mls /hr IV .Q24H PRN; Protocol; 2 MCG/KG/MIN PRN Reason: TITRATE PER MD ORDER Last Titration: 05/03/18 06:00 Dose: 0 mcg/kg/min, 0 mls/hr Aztreonam 2 gm/ Sodium (Chloride) 100 mls @ 200 mls/hr IVPB Q8H [facility] PRN Reason: Protocol Last Admin: 05/03/18 06:01 Dose: 200 mls/hr Dextrose/Sodium Chloride (Dextrose 5%/0.9% Ns 1000 Ml) 1,000 mls @ 60 mls/hr IV .[id number] [facility] Last Admin: 05/03/18 11:30 Dose: 60 mls/hr Insulin Human Regular (Novolin R) 0 unit SC ACHS [facility] PRN Reason: Protocol Last Admin: 05/03/18 12:20 Dose: 2 u Methylprednisolone (Solu-Medrol) 60 mg IV Q8 [facility] Last Admin: 05/03/18 06:00 Dose: 60 mg Physical Exam - Neurological Exam Neurological exam: Alert, CN II-XII Intact, Normal Gait, Oriented x3, Reflexes Normal Additional comments: Gait not assessed due to patient's respiratory status Results - Vital Signs Recent Vital Signs: Last Vital Signs Temp 98.5 F 05/03/18 04:00 Pulse 71 05/03/18 11:09 Resp 26 H 05/03/18 07:36 BP 144/82 05/03/18 07:36 Pulse Ox 96 05/03/18 07:36 - Labs Result Diagrams: 05/03/18 06:18 05/03/18 06:13 Labs: Laboratory Results - last 24 hr 05/02/18 05/02/18 05/02/18 15:07 15:25 15:25 WBC 13.9 H RBC 4.38 Hgb 12.4 Hct 39.3 MCV 89.7 D MCH 28.3 MCHC 31.5 L RDW 15.2 H Plt Count 224 MPV 8.9 Neut % (Auto) 87.9 H Lymph % (Auto) 8.0 L [place] % (Auto) 2.9 Eos % (Auto) 0.5 Baso % (Auto) 0.7 Neut # (Auto) 12.2 H Lymph # (Auto) 1.1 [place] # (Auto) 0.4 Eos # (Auto) 0.1 Baso # (Auto) 0.1 Neutrophils % (Manual) 86 H Band Neutrophils % Lymphocytes % (Manual) 12 L Monocytes % (Manual) 2 Eosinophils % (Manual) Platelet Estimate Normal Hypochromasia (manual) Anisocytosis (manual) PT 10.1 INR 0.9 APTT 36 H Puncture Site pCO2 pO2 HCO3 ABG pH ABG Total CO2 ABG O2 Saturation ABG Base Excess ABG Hemoglobin ABG Carboxyhemoglobin POC ABG HHb (Measured) ABG Methemoglobin Donta Test ABG Potassium A-a O2 Difference Respiratory Index Hgb O2 Saturation Glucose Lactate Liter Flow Vent Mode Mechanical Rate FiO2 Inspiratory BiPAP Expiratory BiPAP Crit Value Called To Crit Value Called By Crit Value Read Back Blood Gas Notified Time Sodium Potassium Chloride Carbon Dioxide Anion Gap BUN Creatinine Est GFR ( Amer) Est GFR (Non-Af Amer) POC Glucose (mg/dL) 157 H Random Glucose Hemoglobin A1c Calcium Phosphorus Magnesium Total Bilirubin AST ALT Alkaline Phosphatase Troponin I Total Protein Albumin Globulin Albumin/Globulin Ratio Triglycerides Cholesterol LDL Cholesterol Direct HDL Cholesterol Arterial Blood Potassium Urine Color Urine Clarity Urine pH Ur Specific [place] Urine Protein Urine Glucose (UA) Urine Ketones Urine Blood Urine Nitrate Urine Bilirubin Urine Urobilinogen Ur Leukocyte Esterase Urine WBC (Auto) Urine RBC (Auto) Ur Squamous Epith Cells Urine Bacteria Hyaline Casts 05/02/18 05/02/18 05/02/18 15:25 15:25 16:40 WBC RBC Hgb Hct MCV MCH MCHC RDW Plt Count MPV Neut % (Auto) Lymph % (Auto) [place] % (Auto) Eos % (Auto) Baso % (Auto) Neut # (Auto) Lymph # (Auto) [place] # (Auto) Eos # (Auto) Baso # (Auto) Neutrophils % (Manual) Band Neutrophils % Lymphocytes % (Manual) Monocytes % (Manual) Eosinophils % (Manual) Platelet Estimate Hypochromasia (manual) Anisocytosis (manual) PT INR APTT Puncture Site Rb pCO2 107 H* pO2 95 HCO3 36.3 H ABG pH 7.25 L ABG Total CO2 50.2 H ABG O2 Saturation 97.7 ABG Base Excess 14.6 H ABG Hemoglobin ABG Carboxyhemoglobin POC ABG HHb (Measured) ABG Methemoglobin Donta Test Na ABG Potassium 3.6 A-a O2 Difference 56.0 Respiratory Index 0.6 Hgb O2 Saturation Glucose 168 H Lactate 0.5 L Liter Flow Vent Mode Mechanical Rate 18 FiO2 40.0 Inspiratory BiPAP 16 Expiratory BiPAP 8 Crit Value Called To Bonnie gary Crit Value Called By Domonique collier Crit Value Read Back Y Blood Gas Notified Time 1646 Sodium 138 137.0 Potassium 4.9 Chloride 86 L 94.0 L Carbon Dioxide 43 H* D Anion Gap 14 BUN 18 H Creatinine 0.5 L Est GFR ( Amer) > 60 Est GFR (Non-Af Amer) > 60 POC Glucose (mg/dL) Random Glucose 158 H Hemoglobin A1c 6.8 H Calcium 9.0 Phosphorus Magnesium Total Bilirubin 0.6 AST 18 ALT 11 Alkaline Phosphatase 75 Troponin I 0.0200 Total Protein 7.3 Albumin 4.0 Globulin 3.3 Albumin/Globulin Ratio 1.2 Triglycerides 84 Cholesterol 174 LDL Cholesterol Direct 67 HDL Cholesterol 68 Arterial Blood Potassium 3.6 Urine Color Urine Clarity Urine pH Ur Specific [place] Urine Protein Urine Glucose (UA) Urine Ketones Urine Blood Urine Nitrate Urine Bilirubin Urine Urobilinogen Ur Leukocyte Esterase Urine WBC (Auto) Urine RBC (Auto) Ur Squamous Epith Cells Urine Bacteria Hyaline Casts 05/02/18 05/02/18 05/02/18 20:43 21:28 22:28 WBC RBC Hgb Hct MCV MCH MCHC RDW Plt Count MPV Neut % (Auto) Lymph % (Auto) [place] % (Auto) Eos % (Auto) Baso % (Auto) Neut # (Auto) Lymph # (Auto) [place] # (Auto) Eos # (Auto) Baso # (Auto) Neutrophils % (Manual) Band Neutrophils % Lymphocytes % (Manual) Monocytes % (Manual) Eosinophils % (Manual) Platelet Estimate Hypochromasia (manual) Anisocytosis (manual) PT INR APTT Puncture Site Rb Lb pCO2 113 H* 69 H pO2 118 H 58 L HCO3 33.0 H 27.3 ABG pH 7.19 L* 7.28 L ABG Total CO2 46.7 H 34.5 H ABG O2 Saturation 98.6 H 93.8 L ABG Base Excess 10.3 H 3.5 H ABG Hemoglobin ABG Carboxyhemoglobin POC ABG HHb (Measured) ABG Methemoglobin Donta Test Na Na ABG Potassium 3.5 L A-a O2 Difference -45.0 5.0 Respiratory Index -0.4 0.1 Hgb O2 Saturation Glucose 154 H Lactate 0.4 L Liter Flow Vent Mode Bipap Bipap Mechanical Rate FiO2 30.0 21.0 Inspiratory BiPAP 20 24 Expiratory BiPAP 8 8 Crit Value Called To Dr jones Crit Value Called By Ponce barrientos Crit Value Read Back Y Blood Gas Notified Time 2045 Sodium 137.0 Potassium Chloride 97.0 L Carbon Dioxide Anion Gap BUN Creatinine Est GFR ( Amer) Est GFR (Non-Af Amer) POC Glucose (mg/dL) 187 H Random Glucose Hemoglobin A1c Calcium Phosphorus Magnesium Total Bilirubin AST ALT Alkaline Phosphatase Troponin I Total Protein Albumin Globulin Albumin/Globulin Ratio Triglycerides Cholesterol LDL Cholesterol Direct HDL Cholesterol Arterial Blood Potassium 3.5 L Urine Color Urine Clarity Urine pH Ur Specific [place] Urine Protein Urine Glucose (UA) Urine Ketones Urine Blood Urine Nitrate Urine Bilirubin Urine Urobilinogen Ur Leukocyte Esterase Urine WBC (Auto) Urine RBC (Auto) Ur Squamous Epith Cells Urine Bacteria Hyaline Casts 05/02/18 05/03/18 05/03/18 23:12 05:30 06:13 WBC RBC Hgb Hct MCV MCH MCHC RDW Plt Count MPV Neut % (Auto) Lymph % (Auto) [place] % (Auto) Eos % (Auto) Baso % (Auto) Neut # (Auto) Lymph # (Auto) [place] # (Auto) Eos # (Auto) Baso # (Auto) Neutrophils % (Manual) Band Neutrophils % Lymphocytes % (Manual) Monocytes % (Manual) Eosinophils % (Manual) Platelet Estimate Hypochromasia (manual) Anisocytosis (manual) PT INR APTT Puncture Site R rad pCO2 70 H pO2 45 L HCO3 34.5 H ABG pH 7.37 ABG Total CO2 42.6 H ABG O2 Saturation 86.0 L ABG Base Excess 12.6 H ABG Hemoglobin 11.2 L ABG Carboxyhemoglobin 2.3 H POC ABG HHb (Measured) 13.6 H ABG Methemoglobin 0.9 Donta Test Pos ABG Potassium A-a O2 Difference 17.0 Respiratory Index 0.4 Hgb O2 Saturation 83.3 L Glucose Lactate Liter Flow 0 Vent Mode Mechanical Rate FiO2 21.0 Inspiratory BiPAP Expiratory BiPAP Crit Value Called To Crit Value Called By Crit Value Read Back Blood Gas Notified Time Sodium 137 Potassium 4.2 Chloride 91 L Carbon Dioxide 38 H Anion Gap 12 BUN 21 H Creatinine 0.7 Est GFR ( Amer) > 60 Est GFR (Non-Af Amer) > 60 POC Glucose (mg/dL) Random Glucose 211 H Hemoglobin A1c Calcium 8.8 Phosphorus 3.4 Magnesium 2.0 Total Bilirubin 0.3 AST 9 L D ALT 10 Alkaline Phosphatase 83 Troponin I Total Protein 6.7 Albumin 4.0 Globulin 2.7 Albumin/Globulin Ratio 1.5 Triglycerides Cholesterol LDL Cholesterol Direct HDL Cholesterol Arterial Blood Potassium Urine Color Yellow Urine Clarity Hazy Urine pH 5.0 Ur Specific [place] 1.012 Urine Protein 1+ H Urine Glucose (UA) Normal Urine Ketones Negative Urine Blood Negative Urine Nitrate Negative Urine Bilirubin Negative Urine Urobilinogen Normal Ur Leukocyte Esterase Neg Urine WBC (Auto) 1 Urine RBC (Auto) 2 Ur Squamous Epith Cells 1 Urine Bacteria Rare Hyaline Casts 3-5 H 05/03/18 05/03/18 05/03/18 06:18 07:49 11:26 WBC 10.9 H RBC 3.97 Hgb 11.4 Hct 35.7 MCV 89.9 MCH 28.8 MCHC 32.0 L RDW 15.1 H Plt Count 200 MPV 9.3 Neut % (Auto) 94.6 H Lymph % (Auto) 4.4 L [place] % (Auto) 1.0 Eos % (Auto) 0.0 Baso % (Auto) 0.0 Neut # (Auto) 10.3 H Lymph # (Auto) 0.5 L [place] # (Auto) 0.1 Eos # (Auto) 0.0 Baso # (Auto) 0.0 Neutrophils % (Manual) 90 H Band Neutrophils % 1 Lymphocytes % (Manual) 6 L Monocytes % (Manual) 1 Eosinophils % (Manual) 2 Platelet Estimate Normal Hypochromasia (manual) Slight Anisocytosis (manual) Slight PT INR APTT Puncture Site pCO2 pO2 HCO3 ABG pH ABG Total CO2 ABG O2 Saturation ABG Base Excess ABG Hemoglobin ABG Carboxyhemoglobin POC ABG HHb (Measured) ABG Methemoglobin Donta Test ABG Potassium A-a O2 Difference Respiratory Index Hgb O2 Saturation Glucose Lactate Liter Flow Vent Mode Mechanical Rate FiO2 Inspiratory BiPAP Expiratory BiPAP Crit Value Called To Crit Value Called By Crit Value Read Back Blood Gas Notified Time Sodium Potassium Chloride Carbon Dioxide Anion Gap BUN Creatinine Est GFR ( Amer) Est GFR (Non-Af Amer) POC Glucose (mg/dL) 207 H 190 H Random Glucose Hemoglobin A1c Calcium Phosphorus Magnesium Total Bilirubin AST ALT Alkaline Phosphatase Troponin I Total Protein Albumin Globulin Albumin/Globulin Ratio Triglycerides Cholesterol LDL Cholesterol Direct HDL Cholesterol Arterial Blood Potassium Urine Color Urine Clarity Urine pH Ur Specific [place] Urine Protein Urine Glucose (UA) Urine Ketones Urine Blood Urine Nitrate Urine Bilirubin Urine Urobilinogen Ur Leukocyte Esterase Urine WBC (Auto) Urine RBC (Auto) Ur Squamous Epith Cells Urine Bacteria Hyaline Casts 05/03/18 11:46 WBC RBC Hgb Hct MCV MCH MCHC RDW Plt Count MPV Neut % (Auto) Lymph % (Auto) [place] % (Auto) Eos % (Auto) Baso % (Auto) Neut # (Auto) Lymph # (Auto) [place] # (Auto) Eos # (Auto) Baso # (Auto) Neutrophils % (Manual) Band Neutrophils % Lymphocytes % (Manual) Monocytes % (Manual) Eosinophils % (Manual) Platelet Estimate Hypochromasia (manual) Anisocytosis (manual) PT INR APTT Puncture Site Rra pCO2 66 H pO2 71 L HCO3 33.9 H ABG pH 7.38 ABG Total CO2 41.0 H ABG O2 Saturation 96.4 ABG Base Excess 11.6 H ABG Hemoglobin 11.2 L ABG Carboxyhemoglobin 2.0 H POC ABG HHb (Measured) 3.5 ABG Methemoglobin 1.2 Donta Test Po ABG Potassium A-a O2 Difference 25.0 Respiratory Index 0.4 Hgb O2 Saturation 93.3 L Glucose Lactate Liter Flow Vent Mode Bipap Mechanical Rate FiO2 25.0 Inspiratory BiPAP 16 Expiratory BiPAP 8 Crit Value Called To Crit Value Called By Crit Value Read Back Blood Gas Notified Time Sodium Potassium Chloride Carbon Dioxide Anion Gap BUN Creatinine Est GFR ( Amer) Est GFR (Non-Af Amer) POC Glucose (mg/dL) Random Glucose Hemoglobin A1c Calcium Phosphorus Magnesium Total Bilirubin AST ALT Alkaline Phosphatase Troponin I Total Protein Albumin Globulin Albumin/Globulin Ratio Triglycerides Cholesterol LDL Cholesterol Direct HDL Cholesterol Arterial Blood Potassium Urine Color Urine Clarity Urine pH Ur Specific [place] Urine Protein Urine Glucose (UA) Urine Ketones Urine Blood Urine Nitrate Urine Bilirubin Urine Urobilinogen Ur Leukocyte Esterase Urine WBC (Auto) Urine RBC (Auto) Ur Squamous Epith Cells Urine Bacteria Hyaline Casts Assessment & Plan (1) Altered mental status Assessment and Plan: This is improving and was likely due to hypoxia. No further recommendations from a neurological perspective. Thank you. Status: Acute Priority: High
--- NOTE | 2018-05-03 16:18 | CP.PCM.HP ---
Past Patient History - Infectious Disease Hx of Infectious Diseases: None, VRE - Tetanus Immunizations Tetanus Immunization: Unknown - Past Medical History & Family History Past Medical History?: Yes - Past Social History Smoking Status: Never Smoked - CARDIAC Hx Hypertension: Yes - PULMONARY Hx Chronic Obstructive Pulmonary Disease (COPD): Yes Hx Sleep Apnea: Yes (on Bipap) - NEUROLOGICAL Hx Dementia: Yes Hx Parkinson's Disease: Yes - HEENT Hx HEENT Problems: No - RENAL Hx Chronic Kidney Disease: No - ENDOCRINE/METABOLIC Hx Hypothyroidism: Yes - HEMATOLOGICAL/ONCOLOGICAL Hx Anemia: Yes - INTEGUMENTARY Hx Dermatological Problems: No - MUSCULOSKELETAL/RHEUMATOLOGICAL Hx Arthritis: Yes - GASTROINTESTINAL Hx Gastrointestinal Disorders: Yes Hx Constipation: Yes Hx Gastroesophageal Reflux: Yes - GENITOURINARY/GYNECOLOGICAL Hx Genitourinary Disorders: Yes Hx Incontinence: Yes Hx Urinary Tract Infection: Yes - PSYCHIATRIC Hx Anxiety: Yes Hx Bipolar Disorder: Yes Hx Depression: Yes Hx Substance Use: No - SURGICAL HISTORY Hx Surgeries: Yes Hx Hysterectomy: Yes Hx Orthopedic Surgery: Yes Other/Comment: right knee replacement 2014; right knee prosthesis removal s/p infection 2014 - ANESTHESIA Hx Anesthesia: Yes Hx Anesthesia Reactions: No Hx Malignant Hyperthermia: No Meds Allergies/Adverse Reactions: Allergies Allergy/AdvReac Type Severity Reaction Status Date / Time Cephalosporins Allergy Intermediate RASH Verified 05/02/18 15:14 Penicillins Allergy Intermediate RASH Verified 05/02/18 15:14 clonazepam [From Klonopin] Allergy Verified 05/02/18 15:14 mustard Allergy Intermediate RASH Uncoded 04/08/18 20:07 Physical Exam - Constitutional Appears: Well - Head Exam Head Exam: ATRAUMATIC, NORMAL INSPECTION, NORMOCEPHALIC - Eye Exam Eye Exam: EOMI, Normal appearance, PERRL Pupil Exam: NORMAL ACCOMODATION, PERRL - ENT Exam ENT Exam: Mucous Membranes Moist, Normal Exam - Neck Exam Neck exam: Positive for: Normal Inspection - Respiratory Exam Respiratory Exam: Decreased Breath Sounds - Cardiovascular Exam Cardiovascular Exam: REGULAR RHYTHM, +S1, +S2 - GI/Abdominal Exam GI & Abdominal Exam: Diminished Bowel Sounds, Soft - Rectal Exam Rectal Exam: Deferred Results - Vital Signs Recent Vital Signs: Last Vital Signs Temp 98.5 F 05/03/18 04:00 Pulse 67 05/03/18 16:03 Resp 26 H 05/03/18 07:36 BP 144/82 05/03/18 07:36 Pulse Ox 96 05/03/18 07:36 - Labs Result Diagrams: 05/03/18 06:18 05/03/18 06:13 Labs: Laboratory Results - last 24 hr 05/02/18 05/02/18 05/02/18 15:25 16:40 20:43 WBC RBC Hgb Hct MCV MCH MCHC RDW Plt Count MPV Neut % (Auto) Lymph % (Auto) Wallace % (Auto) Eos % (Auto) Baso % (Auto) Neut # (Auto) Lymph # (Auto) Wallace # (Auto) Eos # (Auto) Baso # (Auto) Neutrophils % (Manual) 86 H Band Neutrophils % Lymphocytes % (Manual) 12 L Monocytes % (Manual) 2 Eosinophils % (Manual) Platelet Estimate Normal Hypochromasia (manual) Anisocytosis (manual) Puncture Site Rb Rb pCO2 107 H* 113 H* pO2 95 118 H HCO3 36.3 H 33.0 H ABG pH 7.25 L 7.19 L* ABG Total CO2 50.2 H 46.7 H ABG O2 Saturation 97.7 98.6 H ABG Base Excess 14.6 H 10.3 H ABG Hemoglobin ABG Carboxyhemoglobin POC ABG HHb (Measured) ABG Methemoglobin Donta Test Na Na ABG Potassium 3.6 3.5 L A-a O2 Difference 56.0 -45.0 Respiratory Index 0.6 -0.4 Hgb O2 Saturation Sodium 137.0 137.0 Chloride 94.0 L 97.0 L Glucose 168 H 154 H Lactate 0.5 L 0.4 L Liter Flow Vent Mode Bipap Mechanical Rate 18 FiO2 40.0 30.0 Inspiratory BiPAP 16 20 Expiratory BiPAP 8 8 Crit Value Called To Bonnie jones Crit Value Called By Domonique barrientos Crit Value Read Back Y Y Blood Gas Notified Time 1645 2045 Potassium Carbon Dioxide Anion Gap BUN Creatinine Est GFR ( Amer) Est GFR (Non-Af Amer) POC Glucose (mg/dL) Random Glucose Calcium Phosphorus Magnesium Total Bilirubin AST ALT Alkaline Phosphatase Total Protein Albumin Globulin Albumin/Globulin Ratio Arterial Blood Potassium 3.6 3.5 L Urine Color Urine Clarity Urine pH Ur Specific [place] Urine Protein Urine Glucose (UA) Urine Ketones Urine Blood Urine Nitrate Urine Bilirubin Urine Urobilinogen Ur Leukocyte Esterase Urine WBC (Auto) Urine RBC (Auto) Ur Squamous Epith Cells Urine Bacteria Hyaline Casts 05/02/18 05/02/18 05/02/18 21:28 22:28 23:12 WBC RBC Hgb Hct MCV MCH MCHC RDW Plt Count MPV Neut % (Auto) Lymph % (Auto) Wallace % (Auto) Eos % (Auto) Baso % (Auto) Neut # (Auto) Lymph # (Auto) Wallace # (Auto) Eos # (Auto) Baso # (Auto) Neutrophils % (Manual) Band Neutrophils % Lymphocytes % (Manual) Monocytes % (Manual) Eosinophils % (Manual) Platelet Estimate Hypochromasia (manual) Anisocytosis (manual) Puncture Site Lb pCO2 69 H pO2 58 L HCO3 27.3 ABG pH 7.28 L ABG Total CO2 34.5 H ABG O2 Saturation 93.8 L ABG Base Excess 3.5 H ABG Hemoglobin ABG Carboxyhemoglobin POC ABG HHb (Measured) ABG Methemoglobin Donta Test Na ABG Potassium A-a O2 Difference 5.0 Respiratory Index 0.1 Hgb O2 Saturation Sodium Chloride Glucose Lactate Liter Flow Vent Mode Bipap Mechanical Rate FiO2 21.0 Inspiratory BiPAP 24 Expiratory BiPAP 8 Crit Value Called To Crit Value Called By Crit Value Read Back Blood Gas Notified Time Potassium Carbon Dioxide Anion Gap BUN Creatinine Est GFR ( Amer) Est GFR (Non-Af Amer) POC Glucose (mg/dL) 187 H Random Glucose Calcium Phosphorus Magnesium Total Bilirubin AST ALT Alkaline Phosphatase Total Protein Albumin Globulin Albumin/Globulin Ratio Arterial Blood Potassium Urine Color Yellow Urine Clarity Hazy Urine pH 5.0 Ur Specific [place] 1.012 Urine Protein 1+ H Urine Glucose (UA) Normal Urine Ketones Negative Urine Blood Negative Urine Nitrate Negative Urine Bilirubin Negative Urine Urobilinogen Normal Ur Leukocyte Esterase Neg Urine WBC (Auto) 1 Urine RBC (Auto) 2 Ur Squamous Epith Cells 1 Urine Bacteria Rare Hyaline Casts 3-5 H 05/03/18 05/03/18 05/03/18 05:30 06:13 06:18 WBC 10.9 H RBC 3.97 Hgb 11.4 Hct 35.7 MCV 89.9 MCH 28.8 MCHC 32.0 L RDW 15.1 H Plt Count 200 MPV 9.3 Neut % (Auto) 94.6 H Lymph % (Auto) 4.4 L Wallace % (Auto) 1.0 Eos % (Auto) 0.0 Baso % (Auto) 0.0 Neut # (Auto) 10.3 H Lymph # (Auto) 0.5 L Wallace # (Auto) 0.1 Eos # (Auto) 0.0 Baso # (Auto) 0.0 Neutrophils % (Manual) 90 H Band Neutrophils % 1 Lymphocytes % (Manual) 6 L Monocytes % (Manual) 1 Eosinophils % (Manual) 2 Platelet Estimate Normal Hypochromasia (manual) Slight Anisocytosis (manual) Slight Puncture Site R rad pCO2 70 H pO2 45 L HCO3 34.5 H ABG pH 7.37 ABG Total CO2 42.6 H ABG O2 Saturation 86.0 L ABG Base Excess 12.6 H ABG Hemoglobin 11.2 L ABG Carboxyhemoglobin 2.3 H POC ABG HHb (Measured) 13.6 H ABG Methemoglobin 0.9 Donta Test Pos ABG Potassium A-a O2 Difference 17.0 Respiratory Index 0.4 Hgb O2 Saturation 83.3 L Sodium 137 Chloride 91 L Glucose Lactate Liter Flow 0 Vent Mode Mechanical Rate FiO2 21.0 Inspiratory BiPAP Expiratory BiPAP Crit Value Called To Crit Value Called By Crit Value Read Back Blood Gas Notified Time Potassium 4.2 Carbon Dioxide 38 H Anion Gap 12 BUN 21 H Creatinine 0.7 Est GFR ( Amer) > 60 Est GFR (Non-Af Amer) > 60 POC Glucose (mg/dL) Random Glucose 211 H Calcium 8.8 Phosphorus 3.4 Magnesium 2.0 Total Bilirubin 0.3 AST 9 L D ALT 10 Alkaline Phosphatase 83 Total Protein 6.7 Albumin 4.0 Globulin 2.7 Albumin/Globulin Ratio 1.5 Arterial Blood Potassium Urine Color Urine Clarity Urine pH Ur Specific [place] Urine Protein Urine Glucose (UA) Urine Ketones Urine Blood Urine Nitrate Urine Bilirubin Urine Urobilinogen Ur Leukocyte Esterase Urine WBC (Auto) Urine RBC (Auto) Ur Squamous Epith Cells Urine Bacteria Hyaline Casts 05/03/18 05/03/18 05/03/18 07:49 11:26 11:46 WBC RBC Hgb Hct MCV MCH MCHC RDW Plt Count MPV Neut % (Auto) Lymph % (Auto) Wallace % (Auto) Eos % (Auto) Baso % (Auto) Neut # (Auto) Lymph # (Auto) Wallace # (Auto) Eos # (Auto) Baso # (Auto) Neutrophils % (Manual) Band Neutrophils % Lymphocytes % (Manual) Monocytes % (Manual) Eosinophils % (Manual) Platelet Estimate Hypochromasia (manual) Anisocytosis (manual) Puncture Site Rra pCO2 66 H pO2 71 L HCO3 33.9 H ABG pH 7.38 ABG Total CO2 41.0 H ABG O2 Saturation 96.4 ABG Base Excess 11.6 H ABG Hemoglobin 11.2 L ABG Carboxyhemoglobin 2.0 H POC ABG HHb (Measured) 3.5 ABG Methemoglobin 1.2 Donta Test Po ABG Potassium A-a O2 Difference 25.0 Respiratory Index 0.4 Hgb O2 Saturation 93.3 L Sodium Chloride Glucose Lactate Liter Flow Vent Mode Bipap Mechanical Rate FiO2 25.0 Inspiratory BiPAP 16 Expiratory BiPAP 8 Crit Value Called To Crit Value Called By Crit Value Read Back Blood Gas Notified Time Potassium Carbon Dioxide Anion Gap BUN Creatinine Est GFR ( Amer) Est GFR (Non-Af Amer) POC Glucose (mg/dL) 207 H 190 H Random Glucose Calcium Phosphorus Magnesium Total Bilirubin AST ALT Alkaline Phosphatase Total Protein Albumin Globulin Albumin/Globulin Ratio Arterial Blood Potassium Urine Color Urine Clarity Urine pH Ur Specific [place] Urine Protein Urine Glucose (UA) Urine Ketones Urine Blood Urine Nitrate Urine Bilirubin Urine Urobilinogen Ur Leukocyte Esterase Urine WBC (Auto) Urine RBC (Auto) Ur Squamous Epith Cells Urine Bacteria Hyaline Casts 05/03/18 15:59 WBC RBC Hgb Hct MCV MCH MCHC RDW Plt Count MPV Neut % (Auto) Lymph % (Auto) Wallace % (Auto) Eos % (Auto) Baso % (Auto) Neut # (Auto) Lymph # (Auto) Wallace # (Auto) Eos # (Auto) Baso # (Auto) Neutrophils % (Manual) Band Neutrophils % Lymphocytes % (Manual) Monocytes % (Manual) Eosinophils % (Manual) Platelet Estimate Hypochromasia (manual) Anisocytosis (manual) Puncture Site pCO2 pO2 HCO3 ABG pH ABG Total CO2 ABG O2 Saturation ABG Base Excess ABG Hemoglobin ABG Carboxyhemoglobin POC ABG HHb (Measured) ABG Methemoglobin Donta Test ABG Potassium A-a O2 Difference Respiratory Index Hgb O2 Saturation Sodium Chloride Glucose Lactate Liter Flow Vent Mode Mechanical Rate FiO2 Inspiratory BiPAP Expiratory BiPAP Crit Value Called To Crit Value Called By Crit Value Read Back Blood Gas Notified Time Potassium Carbon Dioxide Anion Gap BUN Creatinine Est GFR ( Amer) Est GFR (Non-Af Amer) POC Glucose (mg/dL) 164 H Random Glucose Calcium Phosphorus Magnesium Total Bilirubin AST ALT Alkaline Phosphatase Total Protein Albumin Globulin Albumin/Globulin Ratio Arterial Blood Potassium Urine Color Urine Clarity Urine pH Ur Specific [place] Urine Protein Urine Glucose (UA) Urine Ketones Urine Blood Urine Nitrate Urine Bilirubin Urine Urobilinogen Ur Leukocyte Esterase Urine WBC (Auto) Urine RBC (Auto) Ur Squamous Epith Cells Urine Bacteria Hyaline Casts
[2018-05-04] MEDS: Albuterol-Ipratrop 3 mg / 0.5 (3 ml) UD INH SCH ×6 (00:01→19:41)
[2018-05-04] MEDS: Dextrose 5%/0.9% NS 1,000 ML IV SCH ×2 (03:30→06:23)
[2018-05-04 05:52] LABS: ABG ALLEN TEST POS; ARTERIAL BLOOD GAS HCO3 33.9 mmol/L (21-28); ARTERIAL BLOOD GAS HEMOGLOBIN 10.9 g/dL (11.7-17.4); ARTERIAL BLOOD GAS O2 SAT 97.7 % (95-98); ARTERIAL BLOOD GAS PCO2 74 mm/Hg (35-45); ARTERIAL BLOOD GAS PH 7.34 (7.35-7.45); ARTERIAL BLOOD GAS PO2 88 mm/Hg (80-100); ARTERIAL BLOOD GAS TCO2 42.2 mmol/L (22-28)
[2018-05-04 06:36] LABS: BASO % 0.1 % (0.0-2.0); HEMOGLOBIN 10.5 g/dL (11.0-16.0); LYMPH # 0.9 K/uL (1.0-4.3); MEAN CELL VOLUME 88.7 fL (81.0-99.0); MEAN CORPUSCULAR HEMOGLOBIN 28.8 pg (27.0-31.0); MEAN CORPUSCULAR HGB CONC 32.4 g/dL (33.0-37.0); MEAN PLATELET VOLUME 9.5 fL (7.2-11.7); MONO # 0.2 K/uL (0.0-0.8); MONO % 2.5 % (0.0-10.0); NEUT # 7.7 K/uL (1.8-7.0); NEUT % 87.4 % (50.0-75.0); NRBC % 0.1 % (0.0-2.0); RBC 3.67 Mil/uL (3.80-5.20); RED CELL DISTRIBUTION WIDTH 15.5 % (11.5-14.5); WHITE BLOOD COUNT 8.8 K/uL (4.8-10.8)
[2018-05-04 07:01] LABS: ALB/GLOB RATIO 1.4 (1.0-2.1); ALBUMIN 3.7 g/dL (3.5-5.0); ALT/SGPT 24 U/L (9-52); AST/SGOT 11 U/L (14-36); BLOOD UREA NITROGEN 23 mg/dL (7-17); CALCIUM 8.8 mg/dl (8.6-10.4); GFR NON-AFRICAN AMERICAN > 60
[2018-05-04] MEDS: (Novolin R) Insulin Human Regular 100 units/ml vial SC SCH ×4 (08:00→21:25)
[2018-05-04] MEDS: Enoxaparin 30 mg Syringe SC SCH (09:47)
--- NOTE | 2018-05-04 11:46 | RAD ---
Date of service: 05/04/2018 HISTORY: resp distress f/u COMPARISON: Chest radiograph dated 05/03/2018. FINDINGS: LUNGS: Prominence of pulmonary vasculature may be secondary to AP technique and/or pulmonary vascular congestion. PLEURA: Stable elevation of the right hemidiaphragm. Small left pleural effusion. CARDIOVASCULAR: Atherosclerotic aortic calcifications. Cardiomediastinal silhouette stably enlarged. OSSEOUS STRUCTURES: Changed. VISUALIZED UPPER ABDOMEN: Normal. OTHER FINDINGS: None. IMPRESSION: Prominence of pulmonary vasculature may be secondary to AP technique and/or pulmonary vascular congestion. Small left pleural effusion.
--- NOTE | 2018-05-04 11:51 | CP.PCM.PN ---
Subjective - Date & Time of Evaluation Date of Evaluation: 05/04/18 Time of Evaluation: 11:51 - Subjective Subjective: Pulmonary Evaluation The patient was Seen/interviewed and examined by me at the bedside, Medical records reviewed and Management issues were discussed and formulated with the house staff. Events reviewed 77 Y/O F with PMHx Hypertension, Anemia, Anxiety, Arthritis, Bipolar Disorder, COPD, Dementia, Depression, HTN, Hypothyroidism, Parkinson's Disease and Sleep Apnea (on Bipap) Who [facility] with complains of shortness of breath Patient reportedly refused BIPAP [facility] Patient found to have elevated pCO2, was placed on BiPAP and admitted to ICU. Patient critically sick, Who is currently in ICU with Acute hypoxemic Respiratory Failure, Hypoxemia aand Hypercabnia Yesterday, she lethargic, poorly responsive, and ABG concerning for hypoxia and worsening CO2 retention with pCO2 70 and pO2 45, Bipap replaced. Today patient more awake, more comfortable, NAD BIPAP overnight Objective - Vital Signs/Intake and Output Vital Signs (last 24 hours): Temp Pulse Resp BP Pulse Ox 98.5 F 74 15 136/86 100 05/04/18 04:00 05/04/18 11:00 05/04/18 11:00 05/04/18 10:53 05/04/18 11:00 Intake and Output: 05/04/18 05/04/18 06:59 18:59 Intake Total 920 600 Output Total 400 175 Balance 520 425 - Medications Medications: Current Medications Albuterol/Ipratropium (Duoneb 3 Mg/0.5 Mg (3 Ml) Ud) 3 ml INH RQ4 [facility] Last Admin: 05/04/18 10:59 Dose: 3 ml Enoxaparin Sodium (Lovenox) 30 mg SC DAILY [facility] Last Admin: 05/04/18 09:47 Dose: 30 mg Famotidine (Pepcid) 20 mg IVP DAILY [facility] Last Admin: 05/04/18 09:47 Dose: 20 mg Azithromycin 500 mg/ Sodium (Chloride) 250 mls @ 250 mls/hr IVPB DAILY [facility] PRN Reason: Protocol Last Admin: 05/03/18 12:25 Dose: 250 mls/hr Dopamine HCl/Dextrose (Dopamine 400mg/250ml D5w) 400 mg in 250 mls @ 10.247 mls /hr IV .Q24H PRN; Protocol; 2 MCG/KG/MIN PRN Reason: TITRATE PER MD ORDER Last Titration: 05/03/18 06:00 Dose: 0 mcg/kg/min, 0 mls/hr Aztreonam 2 gm/ Sodium (Chloride) 100 mls @ 200 mls/hr IVPB Q8H [facility] PRN Reason: Protocol Last Admin: 05/03/18 15:00 Dose: Not Given Dextrose/Sodium Chloride (Dextrose 5%/0.9% Ns 1000 Ml) 1,000 mls @ 60 mls/hr IV .[id number] [facility] Last Admin: 05/04/18 06:23 Dose: 60 mls/hr Insulin Human Regular (Novolin R) 0 unit SC ACHS [facility] PRN Reason: Protocol Last Admin: 05/04/18 08:00 Dose: 2 u Methylprednisolone (Solu-Medrol) 60 mg IV Q8 [facility] Last Admin: 05/04/18 06:21 Dose: 60 mg - Labs Labs: 05/04/18 06:20 05/04/18 06:27 PT 10.1 SECONDS (9.7-12.2) 05/02/18 15:25 INR 0.9 05/02/18 15:25 APTT 36 SECONDS (21-34) H 05/02/18 15:25 - Constitutional Appears: Well, In Acute Distress (Mild distresss, ) Assessment and Plan (1) COPD exacerbation Assessment & Plan: Continue steroids, continue intermittent BIPAP and BIPAP at night. duonebs q6h , abx. Status: Acute (2) Acute respiratory failure with hypoxia and hypercapnia Assessment & Plan: BiPAP as needed and at night Continue steroids and nebulizer treatment Sepsis from unknown source, continue aztreonam and azithromycin x 5 days. Avoid alkalemia and hyperoxia. Continue diuretics as needed IV antibiotics Strict I&O, negative fluid balance Aggressive pulmonary toilet, chest PT, suctioning Status: Acute (3) Acute respiratory acidosis Status: Acute (4) Acute respiratory failure with hypercapnia Status: Acute (5) Altered mental status Status: Acute (6) COPD (chronic obstructive pulmonary disease) Status: Acute - Assessment and Plan (Free Text) Assessment: DVT proph - lovenox GI proph - pepcide andrews for strict I/O's during acute illness Code status - Full Critical Care Time spent 35 minutes
--- NOTE | 2018-05-04 14:26 | CP.PCM.PN ---
Subjective - Date & Time of Evaluation Date of Evaluation: 05/04/18 Time of Evaluation: 15:00 - Subjective Subjective: clinically same Objective - Vital Signs/Intake and Output Vital Signs (last 24 hours): Temp Pulse Resp BP Pulse Ox 98.5 F 74 15 136/86 100 05/04/18 04:00 05/04/18 11:00 05/04/18 11:00 05/04/18 10:53 05/04/18 11:00 Intake and Output: 05/04/18 05/04/18 06:59 18:59 Intake Total 920 600 Output Total 400 175 Balance 520 425 - Medications Medications: Current Medications Albuterol/Ipratropium (Duoneb 3 Mg/0.5 Mg (3 Ml) Ud) 3 ml INH RQ4 [facility] Last Admin: 05/04/18 10:59 Dose: 3 ml Enoxaparin Sodium (Lovenox) 30 mg SC DAILY [facility] Last Admin: 05/04/18 09:47 Dose: 30 mg Famotidine (Pepcid) 20 mg IVP DAILY [facility] Last Admin: 05/04/18 09:47 Dose: 20 mg Azithromycin 500 mg/ Sodium (Chloride) 250 mls @ 250 mls/hr IVPB DAILY [facility] PRN Reason: Protocol Last Admin: 05/03/18 12:25 Dose: 250 mls/hr Dopamine HCl/Dextrose (Dopamine 400mg/250ml D5w) 400 mg in 250 mls @ 10.247 mls /hr IV .Q24H PRN; Protocol; 2 MCG/KG/MIN PRN Reason: TITRATE PER MD ORDER Last Titration: 05/03/18 06:00 Dose: 0 mcg/kg/min, 0 mls/hr Aztreonam 2 gm/ Sodium (Chloride) 100 mls @ 200 mls/hr IVPB Q8H [facility] PRN Reason: Protocol Last Admin: 05/03/18 15:00 Dose: Not Given Dextrose/Sodium Chloride (Dextrose 5%/0.9% Ns 1000 Ml) 1,000 mls @ 60 mls/hr IV .[id number] [facility] Last Admin: 05/04/18 06:23 Dose: 60 mls/hr Insulin Human Regular (Novolin R) 0 unit SC ACHS [facility] PRN Reason: Protocol Last Admin: 05/04/18 08:00 Dose: 2 u Methylprednisolone (Solu-Medrol) 60 mg IV Q8 [facility] Last Admin: 05/04/18 06:21 Dose: 60 mg - Labs Labs: 05/04/18 06:20 05/04/18 06:27 PT 10.1 SECONDS (9.7-12.2) 05/02/18 15:25 INR 0.9 05/02/18 15:25 APTT 36 SECONDS (21-34) H 05/02/18 15:25 - Constitutional Appears: Well - Head Exam Head Exam: ATRAUMATIC, NORMAL INSPECTION, NORMOCEPHALIC - Eye Exam Eye Exam: EOMI, Normal appearance, PERRL Pupil Exam: NORMAL ACCOMODATION, PERRL - ENT Exam ENT Exam: Mucous Membranes Moist, Normal Exam - Neck Exam Neck Exam: Full ROM, Normal Inspection. absent: Lymphadenopathy - Respiratory Exam Respiratory Exam: Decreased Breath Sounds - Cardiovascular Exam Cardiovascular Exam: REGULAR RHYTHM, +S1, +S2 - GI/Abdominal Exam GI & Abdominal Exam: Soft, Diminished Bowel Sounds - Rectal Exam Rectal Exam: Deferred Assessment and Plan - Assessment and Plan (Free Text) Plan: Status post extubated IV azithromycin IV HTN M DuoNeb Follow-up with the pulmonary Follow-up with the neurology also status post critical care As ordered
--- NOTE | 2018-05-04 16:26 | CP.CCUPN ---
CCU Subjective - Physician Review Events Since Last Encounter (Free Text): 05/04/18 16:25 more alert today, breathing well off of BIPAP. CCU Objective - Vital Signs / Intake & Output Intake and Output (Last 8hrs): Intake & Output 05/04/18 05/04/18 05/04/18 06:59 14:59 22:59 Intake Total 580 600 Output Total 270 175 Balance 310 425 Weight 319 lb 0.142 oz Intake: Intake, IV Amount 480 300 Right Proximal Port 480 300 Femoral Oral 100 300 Output: Urine 270 175 Urethral (Andrews) 270 175 Emesis 0 Other: # Bowel Movements 0 1 - Physical Exam Narrative Physical Exam (Free Text): 05/04/18 16:25 morbidly obese Head: Positive for: Atraumatic, Normocephalic Pupils: Negative for: Pinpoint Extroacular Muscles: Positive for: Other (not following commands for EOMI assessment, but tried to close manually opened eyelids and moves eyes away from light challenge) Conjunctiva: Positive for: Normal. Negative for: Injected, Icteric Mouth: Positive for: Moist Mucous Membranes. Negative for: Dry, Drooling Pharnyx: Positive for: Other (Malampati 4 airway) Nose (External): Positive for: Atraumatic. Negative for: Abrasion, Contusion, Laceration Nose (Internal): Positive for: No Active Bleeding. Negative for: Epistaxis Neck: Positive for: Normal Range of Motion, Trachea Midline, Other (Bull-neck). Negative for: JVD Respiratory/Chest: Positive for: Clear to Auscultation, Decreased Breath Sounds (moderate to severely decreased breath sounds in all leora, likely some component 2/2 body habitus). Negative for: Good Air Exchange, Respiratory Distress, Wheezes, Rales, Rhonchi Cardiovascular: Positive for: Regular Rate and Rhythm, Normal S1, S2, Peripheal Pulses Present (+2 radials, +1 dorsalis pedis bilaterally). Negative for: Tachycardic, Bradycardic Abdomen: Positive for: Normal Bowel Sounds. Negative for: Distention (morbidly obese but not distended) Upper Extremity: Positive for: Normal Inspection, NORMAL PULSES. Negative for: Cyanosis, Edema, Swelling, Erythema, Deformity Lower Extremity: Positive for: Normal Inspection, NORMAL PULSES. Negative for: Edema, Cyanosis, Swelling, Erythema, Deformity Neurological: Positive for: Other (somnolent/poorly responsive, not following most commands, briefly arousable with noxious physical stimuli but rapidly returns to somnolence). Negative for: GCS=15 (GCS 11 ([id number])) Skin: Positive for: Warm, Dry, Normal Color. Negative for: Rashes Psychiatric: Positive for: Other (somnolent/poorly responsive, unable to assess) - Medications Active Medications: Active Medications Generic Name Dose Route Start Last Admin Trade Name Freq PRN Reason Stop Dose Admin Albuterol/Ipratropium 3 ml 05/02/18 20:00 05/04/18 16:21 Duoneb 3 Mg/0.5 Mg (3 Ml) Ud INH 3 ml RQ4 TIMOTEO Administration Enoxaparin Sodium 30 mg 05/03/18 10:00 05/04/18 09:47 Lovenox SC 30 mg DAILY TIMOTEO Administration Famotidine 20 mg 05/03/18 10:00 05/04/18 09:47 Pepcid IVP 20 mg DAILY TIMOTEO Administration Azithromycin 500 mg/ Sodium 250 mls @ 250 mls/hr 05/03/18 10:00 05/03/18 12: 25 Chloride IVPB 250 mls/hr DAILY TIMOTEO Administration Protocol Dopamine HCl/Dextrose 400 mg in 250 mls @ 10.247 mls/hr 05/02/18 21:49 06:00 Dopamine 400mg/250ml D5w IV 0 mcg/kg/min .Q24H PRN 0 mls/hr TITRATE PER MD ORDER Titration Protocol 2 MCG/KG/MIN Aztreonam 2 gm/ Sodium 100 mls @ 200 mls/hr 05/02/18 23:00 05/03/18 15:00 Chloride IVPB Not Given Q8H TIMOTEO Protocol Dextrose/Sodium Chloride 1,000 mls @ 60 mls/hr 05/03/18 10:54 05/04/18 06:23 Dextrose 5%/0.9% Ns 1000 Ml IV 60 mls/hr .[id number] TIMOTEO Administration Insulin Human Regular 0 unit 05/02/18 22:00 05/04/18 08:00 Novolin R SC 2 u ACHS TIMOTEO Administration Protocol Methylprednisolone 60 mg 05/02/18 22:00 05/04/18 06:21 Solu-Medrol IV 60 mg Q8 TIMOTEO Administration - Patient Studies Lab Studies: Microbiology Studies 05/02/18 Unknown MRSA Culture (Admit) - Final Nose MRSA NOT DETECTED 05/02/18 Unknown Urine Culture - Final Urine,Andrews No Growth (<1,000 CFU/ML) 05/02/18 23:30 Blood Culture - Preliminary Blood NO GROWTH AFTER 24 HOURS 05/02/18 23:00 Blood Culture - Preliminary Blood NO GROWTH AFTER 24 HOURS Lab Studies 05/04/18 05/04/18 05/04/18 Range/Units 11:12 07:32 06:27 WBC (4.8-10.8) K/uL RBC (3.80-5.20) Mil/uL Hgb (11.0-16.0) g/dL Hct (34.0-47.0) % MCV (81.0-99.0) fL MCH (27.0-31.0) pg MCHC (33.0-37.0) g/dL RDW (11.5-14.5) % Plt Count (130-400) K/uL MPV (7.2-11.7) fL Neut % (Auto) (50.0-75.0) % Lymph % (Auto) (20.0-40.0) % [place] % (Auto) (0.0-10.0) % Eos % (Auto) (0.0-4.0) % Baso % (Auto) (0.0-2.0) % Neut # (Auto) (1.8-7.0) K/uL Lymph # (Auto) (1.0-4.3) K/uL [place] # (Auto) (0.0-0.8) K/uL Eos # (Auto) (0.0-0.7) K/uL Baso # (Auto) (0.0-0.2) K/uL Puncture Site pCO2 (35-45) mm/Hg pO2 (80-100) mm/Hg HCO3 (21-28) mmol/L ABG pH (7.35-7.45) ABG Total CO2 (22-28) mmol/L ABG O2 Saturation (95-98) % ABG Base Excess (-2.0-3.0) mmol/L ABG Hemoglobin (11.7-17.4) g/dL ABG Carboxyhemoglobin (0.5-1.5) % POC ABG HHb (Measured) (0.0-5.0) % ABG Methemoglobin (0.0-3.0) % [place] Test A-a O2 Difference mm/Hg Respiratory Index Hgb O2 Saturation (95.0-98.0) % Vent Mode FiO2 % Inspiratory BiPAP Expiratory BiPAP Crit Value Called To Crit Value Called By Crit Value Read Back Blood Gas Notified Time Sodium 137 (132-148) mmol/L Potassium 4.0 (3.6-5.2) mmol/L Chloride 94 L (98-107) mmol/L Carbon Dioxide 38 H (22-30) mmol/L Anion Gap 9 L (10-20) BUN 23 H (7-17) mg/dL Creatinine 0.6 L (0.7-1.2) mg/dL Est GFR ( Amer) > 60 Est GFR (Non-Af Amer) > 60 POC Glucose (mg/dL) 184 H 181 H (65-110) mg/dL Random Glucose 200 H (65-105) mg/dL Calcium 8.8 (8.6-10.4) mg/dl Phosphorus 3.1 (2.5-4.5) mg/dL Magnesium 2.2 (1.6-2.3) mg/dL Total Bilirubin 0.1 L (0.2-1.3) mg/dL AST 11 L D (14-36) U/L ALT 24 (9-52) U/L Alkaline Phosphatase 68 (38-126) U/L Total Protein 6.3 (6.3-8.3) g/dL Albumin 3.7 (3.5-5.0) g/dL Globulin 2.6 (2.2-3.9) gm/dL Albumin/Globulin Ratio 1.4 (1.0-2.1) 05/04/18 05/04/18 05/03/18 Range/Units 06:20 05:35 21:35 WBC 8.8 (4.8-10.8) K/uL RBC 3.67 L (3.80-5.20) Mil/uL Hgb 10.5 L (11.0-16.0) g/dL Hct 32.5 L (34.0-47.0) % MCV 88.7 (81.0-99.0) fL MCH 28.8 (27.0-31.0) pg MCHC 32.4 L (33.0-37.0) g/dL RDW 15.5 H (11.5-14.5) % Plt Count 202 (130-400) K/uL MPV 9.5 (7.2-11.7) fL Neut % (Auto) 87.4 H (50.0-75.0) % Lymph % (Auto) 10.0 L (20.0-40.0) % [place] % (Auto) 2.5 (0.0-10.0) % Eos % (Auto) 0.0 (0.0-4.0) % Baso % (Auto) 0.1 (0.0-2.0) % Neut # (Auto) 7.7 H (1.8-7.0) K/uL Lymph # (Auto) 0.9 L (1.0-4.3) K/uL [place] # (Auto) 0.2 (0.0-0.8) K/uL Eos # (Auto) 0.0 (0.0-0.7) K/uL Baso # (Auto) 0.0 (0.0-0.2) K/uL Puncture Site Rr pCO2 74 H* (35-45) mm/Hg pO2 88 (80-100) mm/Hg HCO3 33.9 H (21-28) mmol/L ABG pH 7.34 L (7.35-7.45) ABG Total CO2 42.2 H (22-28) mmol/L ABG O2 Saturation 97.7 (95-98) % ABG Base Excess 11.6 H (-2.0-3.0) mmol/L ABG Hemoglobin 10.9 L (11.7-17.4) g/dL ABG Carboxyhemoglobin 1.7 H (0.5-1.5) % POC ABG HHb (Measured) 2.2 (0.0-5.0) % ABG Methemoglobin 1.1 (0.0-3.0) % [place] Test Pos A-a O2 Difference -2.0 mm/Hg Respiratory Index 0 Hgb O2 Saturation 95.0 (95.0-98.0) % Vent Mode Prvc FiO2 25.0 % Inspiratory BiPAP 16 Expiratory BiPAP 8 Crit Value Called To Cammie rn Crit Value Called By Tereso shot man Crit Value Read Back Y Blood Gas Notified Time 551 Sodium (132-148) mmol/L Potassium (3.6-5.2) mmol/L Chloride (98-107) mmol/L Carbon Dioxide (22-30) mmol/L Anion Gap (10-20) BUN (7-17) mg/dL Creatinine (0.7-1.2) mg/dL Est GFR ( Amer) Est GFR (Non-Af Amer) POC Glucose (mg/dL) 165 H (65-110) mg/dL Random Glucose (65-105) mg/dL Calcium (8.6-10.4) mg/dl Phosphorus (2.5-4.5) mg/dL Magnesium (1.6-2.3) mg/dL Total Bilirubin (0.2-1.3) mg/dL AST (14-36) U/L ALT (9-52) U/L Alkaline Phosphatase (38-126) U/L Total Protein (6.3-8.3) g/dL Albumin (3.5-5.0) g/dL Globulin (2.2-3.9) gm/dL Albumin/Globulin Ratio (1.0-2.1) 05/03/18 Range/Units 21:10 WBC (4.8-10.8) K/uL RBC (3.80-5.20) Mil/uL Hgb (11.0-16.0) g/dL Hct (34.0-47.0) % MCV (81.0-99.0) fL MCH (27.0-31.0) pg MCHC (33.0-37.0) g/dL RDW (11.5-14.5) % Plt Count (130-400) K/uL MPV (7.2-11.7) fL Neut % (Auto) (50.0-75.0) % Lymph % (Auto) (20.0-40.0) % [place] % (Auto) (0.0-10.0) % Eos % (Auto) (0.0-4.0) % Baso % (Auto) (0.0-2.0) % Neut # (Auto) (1.8-7.0) K/uL Lymph # (Auto) (1.0-4.3) K/uL [place] # (Auto) (0.0-0.8) K/uL Eos # (Auto) (0.0-0.7) K/uL Baso # (Auto) (0.0-0.2) K/uL Puncture Site pCO2 (35-45) mm/Hg pO2 (80-100) mm/Hg HCO3 (21-28) mmol/L ABG pH (7.35-7.45) ABG Total CO2 (22-28) mmol/L ABG O2 Saturation (95-98) % ABG Base Excess (-2.0-3.0) mmol/L ABG Hemoglobin (11.7-17.4) g/dL ABG Carboxyhemoglobin (0.5-1.5) % POC ABG HHb (Measured) (0.0-5.0) % ABG Methemoglobin (0.0-3.0) % [place] Test A-a O2 Difference mm/Hg Respiratory Index Hgb O2 Saturation (95.0-98.0) % Vent Mode FiO2 % Inspiratory BiPAP Expiratory BiPAP Crit Value Called To Crit Value Called By Crit Value Read Back Blood Gas Notified Time Sodium (132-148) mmol/L Potassium (3.6-5.2) mmol/L Chloride (98-107) mmol/L Carbon Dioxide (22-30) mmol/L Anion Gap (10-20) BUN (7-17) mg/dL Creatinine (0.7-1.2) mg/dL Est GFR ( Amer) Est GFR (Non-Af Amer) POC Glucose (mg/dL) 141 H (65-110) mg/dL Random Glucose (65-105) mg/dL Calcium (8.6-10.4) mg/dl Phosphorus (2.5-4.5) mg/dL Magnesium (1.6-2.3) mg/dL Total Bilirubin (0.2-1.3) mg/dL AST (14-36) U/L ALT (9-52) U/L Alkaline Phosphatase (38-126) U/L Total Protein (6.3-8.3) g/dL Albumin (3.5-5.0) g/dL Globulin (2.2-3.9) gm/dL Albumin/Globulin Ratio (1.0-2.1) Laboratory Results - last 24 hr 05/03/18 05/03/18 05/04/18 21:10 21:35 05:35 WBC RBC Hgb Hct MCV MCH MCHC RDW Plt Count MPV Neut % (Auto) Lymph % (Auto) [place] % (Auto) Eos % (Auto) Baso % (Auto) Neut # (Auto) Lymph # (Auto) [place] # (Auto) Eos # (Auto) Baso # (Auto) Puncture Site Rr pCO2 74 H* pO2 88 HCO3 33.9 H ABG pH 7.34 L ABG Total CO2 42.2 H ABG O2 Saturation 97.7 ABG Base Excess 11.6 H ABG Hemoglobin 10.9 L ABG Carboxyhemoglobin 1.7 H POC ABG HHb (Measured) 2.2 ABG Methemoglobin 1.1 [place] Test Pos A-a O2 Difference -2.0 Respiratory Index 0 Hgb O2 Saturation 95.0 Vent Mode Prvc FiO2 25.0 Inspiratory BiPAP 16 Expiratory BiPAP 8 Crit Value Called To Cammie rn Crit Value Called By Tereso shot man Crit Value Read Back Y Blood Gas Notified Time 551 Sodium Potassium Chloride Carbon Dioxide Anion Gap BUN Creatinine Est GFR ( Amer) Est GFR (Non-Af Amer) POC Glucose (mg/dL) 141 H 165 H Random Glucose Calcium Phosphorus Magnesium Total Bilirubin AST ALT Alkaline Phosphatase Total Protein Albumin Globulin Albumin/Globulin Ratio 05/04/18 05/04/18 05/04/18 06:20 06:27 07:32 WBC 8.8 RBC 3.67 L Hgb 10.5 L Hct 32.5 L MCV 88.7 MCH 28.8 MCHC 32.4 L RDW 15.5 H Plt Count 202 MPV 9.5 Neut % (Auto) 87.4 H Lymph % (Auto) 10.0 L [place] % (Auto) 2.5 Eos % (Auto) 0.0 Baso % (Auto) 0.1 Neut # (Auto) 7.7 H Lymph # (Auto) 0.9 L [place] # (Auto) 0.2 Eos # (Auto) 0.0 Baso # (Auto) 0.0 Puncture Site pCO2 pO2 HCO3 ABG pH ABG Total CO2 ABG O2 Saturation ABG Base Excess ABG Hemoglobin ABG Carboxyhemoglobin POC ABG HHb (Measured) ABG Methemoglobin [place] Test A-a O2 Difference Respiratory Index Hgb O2 Saturation Vent Mode FiO2 Inspiratory BiPAP Expiratory BiPAP Crit Value Called To Crit Value Called By Crit Value Read Back Blood Gas Notified Time Sodium 137 Potassium 4.0 Chloride 94 L Carbon Dioxide 38 H Anion Gap 9 L BUN 23 H Creatinine 0.6 L Est GFR ( Amer) > 60 Est GFR (Non-Af Amer) > 60 POC Glucose (mg/dL) 181 H Random Glucose 200 H Calcium 8.8 Phosphorus 3.1 Magnesium 2.2 Total Bilirubin 0.1 L AST 11 L D ALT 24 Alkaline Phosphatase 68 Total Protein 6.3 Albumin 3.7 Globulin 2.6 Albumin/Globulin Ratio 1.4 05/04/18 11:12 WBC RBC Hgb Hct MCV MCH MCHC RDW Plt Count MPV Neut % (Auto) Lymph % (Auto) [place] % (Auto) Eos % (Auto) Baso % (Auto) Neut # (Auto) Lymph # (Auto) [place] # (Auto) Eos # (Auto) Baso # (Auto) Puncture Site pCO2 pO2 HCO3 ABG pH ABG Total CO2 ABG O2 Saturation ABG Base Excess ABG Hemoglobin ABG Carboxyhemoglobin POC ABG HHb (Measured) ABG Methemoglobin [place] Test A-a O2 Difference Respiratory Index Hgb O2 Saturation Vent Mode FiO2 Inspiratory BiPAP Expiratory BiPAP Crit Value Called To Crit Value Called By Crit Value Read Back Blood Gas Notified Time Sodium Potassium Chloride Carbon Dioxide Anion Gap BUN Creatinine Est GFR ( Amer) Est GFR (Non-Af Amer) POC Glucose (mg/dL) 184 H Random Glucose Calcium Phosphorus Magnesium Total Bilirubin AST ALT Alkaline Phosphatase Total Protein Albumin Globulin Albumin/Globulin Ratio Fingerstick Blood Sugar Results: 200 Critical Care Progress Note - Nutrition Nutrition: Nutrition Category Date Time Status Heart Healthy Diet [DIET] Diets 05/03/18 Lunch Active Assessment/Plan - Assessment and Plan (Free Text) Assessment: This is a 72 yo F with PMH of COPD, obstructive sleep apnea/obesity hypoventilation syndrome, bipolar disorder, depression, and Parkinson's disease who was transferred from long term for shortness of breath and chest pressure. She was found to be hypercapneic and in respiratory distress, and was transferred to ICU on Bipap. Removed it this AM, became somnolent again, now back on Bipap pending repeat ABG. Neuro: alert and oriented today Pulm: COPD exacerbation continue steroids, continue intermittent BIPAP and BIPAP at night. duonebs q6h, abx. CV: hemodynamically stable Hem: no acute issues Renal: no acute issues Endo: no acute issues GI: heart healthy diet ID: sepsis from unknown source, continue aztreonam and azithromycin x 5 days. DVT proph - lovenox GI proph - pepcide andrews for strict I/O's during acute illness Code status - Critical Care Time spent 35 minutes Multi-disciplinary rounds were performed with house staff, nursing, speech therapy, respiratory therapy, pharmacy and nutrition with integrated input from the primary team/attending and other consulting services. The documented time is cumulative and includes review of patient data/exams/labs/chart review and examination of the patient on rounds and throughout the day; time is exclusive of any procedures or teaching time.
[2018-05-05] MEDS: Albuterol-Ipratrop 3 mg / 0.5 (3 ml) UD INH SCH ×6 (00:22→19:32)
[2018-05-05 06:21] LABS: BASO % 0.1 % (0.0-2.0); HEMOGLOBIN 10.5 g/dL (11.0-16.0); LYMPH % 12.9 % (20.0-40.0); MEAN CELL VOLUME 88.5 fL (81.0-99.0); MEAN CORPUSCULAR HEMOGLOBIN 28.9 pg (27.0-31.0); MEAN CORPUSCULAR HGB CONC 32.6 g/dL (33.0-37.0); MEAN PLATELET VOLUME 9.6 fL (7.2-11.7); MONO # 0.3 K/uL (0.0-0.8); MONO % 3.4 % (0.0-10.0); NEUT # 6.4 K/uL (1.8-7.0); NEUT % 83.6 % (50.0-75.0); NRBC % 0.2 % (0.0-2.0); RBC 3.63 Mil/uL (3.80-5.20); RED CELL DISTRIBUTION WIDTH 15.3 % (11.5-14.5); WHITE BLOOD COUNT 7.6 K/uL (4.8-10.8)
[2018-05-05 06:38] LABS: ALB/GLOB RATIO 1.3 (1.0-2.1); ALBUMIN 3.5 g/dL (3.5-5.0); ALT/SGPT 28 U/L (9-52); AST/SGOT 8 U/L (14-36); BLOOD UREA NITROGEN 25 mg/dL (7-17); CALCIUM 8.7 mg/dl (8.6-10.4); GFR NON-AFRICAN AMERICAN > 60
[2018-05-05] MEDS: (Novolin R) Insulin Human Regular 100 units/ml vial SC SCH ×4 (08:45→21:57)
[2018-05-05] MEDS: Enoxaparin 30 mg Syringe SC SCH (09:06)
--- NOTE | 2018-05-05 09:20 | CP.CCUPN ---
CCU Subjective - Physician Review Subjective (Free Text): 05/05/18 09:17 ICU Progress note Patient seen and examined at bedside. Patient is more awake, alert, speaking in full sentences and eating breakfast. Currently on NC, off BIPAP. She has no complaints currently. CCU Objective - Vital Signs / Intake & Output Vital Signs (Last 4 hours): Vital Signs Pulse Resp BP Pulse Ox 05/05/18 07:40 52 L 05/05/18 07:00 59 L 24 05/05/18 06:53 59 L 25 H 177/82 H 05/05/18 06:06 62 05/05/18 06:00 58 L 23 100 05/05/18 05:53 62 24 168/71 H 100 Intake and Output (Last 8hrs): Intake & Output 05/04/18 05/05/18 05/05/18 22:59 06:59 14:59 Intake Total 1160 200 0 Output Total 560 900 Balance 600 -700 0 Weight 306 lb 4.8 oz Intake: Intake, IV Amount 240 Right Proximal Port 240 Femoral Oral 920 200 0 Output: Urine 560 900 Urethral (Edmond) 360 Urine, Voided 200 900 Emesis 0 Other: # Bowel Movements 0 0 - Physical Exam Head: Positive for: Atraumatic, Normocephalic Pupils: Positive for: PERRL. Negative for: Pinpoint Extroacular Muscles: Positive for: EOMI, Other (not following commands for EOMI assessment, but tried to close manually opened eyelids and moves eyes away from light challenge) Conjunctiva: Positive for: Normal. Negative for: Injected, Icteric Mouth: Positive for: Moist Mucous Membranes. Negative for: Dry, Drooling Pharnyx: Positive for: Other (Malampati 4 airway) Nose (External): Positive for: Atraumatic. Negative for: Abrasion, Contusion, Laceration Nose (Internal): Positive for: No Active Bleeding. Negative for: Epistaxis Neck: Positive for: Normal Range of Motion, Trachea Midline. Negative for: JVD Respiratory/Chest: Positive for: Clear to Auscultation, Decreased Breath Sounds (Decreased breath sounds in all loera, likely secondary to body habitus. Does not appear to be in respiratory distress). Negative for: Good Air Exchange, Respiratory Distress, Wheezes, Rales, Rhonchi Cardiovascular: Positive for: Regular Rate and Rhythm, Normal S1, S2, Peripheal Pulses Present (+2 radials, +1 dorsalis pedis bilaterally). Negative for: Tachycardic, Bradycardic Abdomen: Positive for: Normal Bowel Sounds. Negative for: Distention (morbidly obese but not distended) Upper Extremity: Positive for: Normal Inspection, NORMAL PULSES. Negative for: Cyanosis, Edema, Swelling, Erythema, Deformity Lower Extremity: Positive for: Normal Inspection, NORMAL PULSES, Other (Scar on right knee). Negative for: Edema, Cyanosis, Swelling, Erythema, Deformity Neurological: Positive for: Other (Alert, awake, no longer somnolent, answers questions appropriately. ). Negative for: GCS=15 (GCS 11 ([id number])) Skin: Positive for: Warm, Dry, Normal Color. Negative for: Rashes Psychiatric: Positive for: Alert, Oriented x 3 - Medications Active Medications: Active Medications Generic Name Dose Route Start Last Admin Trade Name Freq PRN Reason Stop Dose Admin Albuterol/Ipratropium 3 ml 05/02/18 20:00 05/05/18 07:40 Duoneb 3 Mg/0.5 Mg (3 Ml) Ud INH 3 ml RQ4 [facility] Administration Enoxaparin Sodium 30 mg 05/03/18 10:00 05/05/18 09:06 Lovenox SC 30 mg DAILY [facility] Administration Famotidine 20 mg 05/03/18 10:00 05/05/18 09:06 Pepcid IVP 20 mg DAILY [facility] Administration Azithromycin 500 mg/ Sodium 250 mls @ 250 mls/hr 05/03/18 10:00 05/03/18 12: 25 Chloride IVPB 250 mls/hr DAILY [facility] Administration Protocol Aztreonam 2 gm/ Sodium 100 mls @ 200 mls/hr 05/02/18 23:00 05/03/18 15:00 Chloride IVPB Not Given Q8H [facility] Protocol Insulin Human Regular 0 unit 05/02/18 22:00 05/05/18 08:45 Novolin R SC 2 u ACHS [facility] Administration Protocol Methylprednisolone 60 mg 05/04/18 22:00 05/05/18 09:06 Solu-Medrol IV 60 mg Q12 [facility] Administration - Patient Studies Lab Studies: Microbiology Studies 05/02/18 23:30 Blood Culture - Preliminary Blood NO GROWTH AFTER 48 HOURS 05/02/18 23:00 Blood Culture - Preliminary Blood NO GROWTH AFTER 48 HOURS 05/02/18 Unknown MRSA Culture (Admit) - Final Nose MRSA NOT DETECTED 05/02/18 Unknown Urine Culture - Final Urine,Edmond No Growth (<1,000 CFU/ML) Lab Studies 05/05/18 05/05/18 05/05/18 Range/Units 07:46 06:07 06:07 WBC 7.6 (4.8-10.8) K/uL RBC 3.63 L (3.80-5.20) Mil/uL Hgb 10.5 L (11.0-16.0) g/dL Hct 32.1 L (34.0-47.0) % MCV 88.5 (81.0-99.0) fL MCH 28.9 (27.0-31.0) pg MCHC 32.6 L (33.0-37.0) g/dL RDW 15.3 H (11.5-14.5) % Plt Count 217 (130-400) K/uL MPV 9.6 (7.2-11.7) fL Neut % (Auto) 83.6 H (50.0-75.0) % Lymph % (Auto) 12.9 L (20.0-40.0) % [place] % (Auto) 3.4 (0.0-10.0) % Eos % (Auto) 0.0 (0.0-4.0) % Baso % (Auto) 0.1 (0.0-2.0) % Neut # (Auto) 6.4 (1.8-7.0) K/uL Lymph # (Auto) 1.0 (1.0-4.3) K/uL [place] # (Auto) 0.3 (0.0-0.8) K/uL Eos # (Auto) 0.0 (0.0-0.7) K/uL Baso # (Auto) 0.0 (0.0-0.2) K/uL Sodium 136 (132-148) mmol/L Potassium 4.3 (3.6-5.2) mmol/L Chloride 94 L (98-107) mmol/L Carbon Dioxide 37 H (22-30) mmol/L Anion Gap 9 L (10-20) BUN 25 H (7-17) mg/dL Creatinine 0.7 (0.7-1.2) mg/dL Est GFR ( Amer) > 60 Est GFR (Non-Af Amer) > 60 POC Glucose (mg/dL) 174 H (65-110) mg/dL Random Glucose 219 H (65-105) mg/dL Calcium 8.7 (8.6-10.4) mg/dl Phosphorus 2.3 L (2.5-4.5) mg/dL Magnesium 2.2 (1.6-2.3) mg/dL Total Bilirubin 0.1 L (0.2-1.3) mg/dL AST 8 L D (14-36) U/L ALT 28 (9-52) U/L Alkaline Phosphatase 64 (38-126) U/L Total Protein 6.2 L (6.3-8.3) g/dL Albumin 3.5 (3.5-5.0) g/dL Globulin 2.8 (2.2-3.9) gm/dL Albumin/Globulin Ratio 1.3 (1.0-2.1) 05/04/18 05/04/18 05/04/18 Range/Units 21:08 16:47 11:12 WBC (4.8-10.8) K/uL RBC (3.80-5.20) Mil/uL Hgb (11.0-16.0) g/dL Hct (34.0-47.0) % MCV (81.0-99.0) fL MCH (27.0-31.0) pg MCHC (33.0-37.0) g/dL RDW (11.5-14.5) % Plt Count (130-400) K/uL MPV (7.2-11.7) fL Neut % (Auto) (50.0-75.0) % Lymph % (Auto) (20.0-40.0) % [place] % (Auto) (0.0-10.0) % Eos % (Auto) (0.0-4.0) % Baso % (Auto) (0.0-2.0) % Neut # (Auto) (1.8-7.0) K/uL Lymph # (Auto) (1.0-4.3) K/uL [place] # (Auto) (0.0-0.8) K/uL Eos # (Auto) (0.0-0.7) K/uL Baso # (Auto) (0.0-0.2) K/uL Sodium (132-148) mmol/L Potassium (3.6-5.2) mmol/L Chloride (98-107) mmol/L Carbon Dioxide (22-30) mmol/L Anion Gap (10-20) BUN (7-17) mg/dL Creatinine (0.7-1.2) mg/dL Est GFR ( Amer) Est GFR (Non-Af Amer) POC Glucose (mg/dL) 219 H 153 H 184 H (65-110) mg/dL Random Glucose (65-105) mg/dL Calcium (8.6-10.4) mg/dl Phosphorus (2.5-4.5) mg/dL Magnesium (1.6-2.3) mg/dL Total Bilirubin (0.2-1.3) mg/dL AST (14-36) U/L ALT (9-52) U/L Alkaline Phosphatase (38-126) U/L Total Protein (6.3-8.3) g/dL Albumin (3.5-5.0) g/dL Globulin (2.2-3.9) gm/dL Albumin/Globulin Ratio (1.0-2.1) 05/04/18 Range/Units 07:32 WBC (4.8-10.8) K/uL RBC (3.80-5.20) Mil/uL Hgb (11.0-16.0) g/dL Hct (34.0-47.0) % MCV (81.0-99.0) fL MCH (27.0-31.0) pg MCHC (33.0-37.0) g/dL RDW (11.5-14.5) % Plt Count (130-400) K/uL MPV (7.2-11.7) fL Neut % (Auto) (50.0-75.0) % Lymph % (Auto) (20.0-40.0) % [place] % (Auto) (0.0-10.0) % Eos % (Auto) (0.0-4.0) % Baso % (Auto) (0.0-2.0) % Neut # (Auto) (1.8-7.0) K/uL Lymph # (Auto) (1.0-4.3) K/uL [place] # (Auto) (0.0-0.8) K/uL Eos # (Auto) (0.0-0.7) K/uL Baso # (Auto) (0.0-0.2) K/uL Sodium (132-148) mmol/L Potassium (3.6-5.2) mmol/L Chloride (98-107) mmol/L Carbon Dioxide (22-30) mmol/L Anion Gap (10-20) BUN (7-17) mg/dL Creatinine (0.7-1.2) mg/dL Est GFR ( Amer) Est GFR (Non-Af Amer) POC Glucose (mg/dL) 181 H (65-110) mg/dL Random Glucose (65-105) mg/dL Calcium (8.6-10.4) mg/dl Phosphorus (2.5-4.5) mg/dL Magnesium (1.6-2.3) mg/dL Total Bilirubin (0.2-1.3) mg/dL AST (14-36) U/L ALT (9-52) U/L Alkaline Phosphatase (38-126) U/L Total Protein (6.3-8.3) g/dL Albumin (3.5-5.0) g/dL Globulin (2.2-3.9) gm/dL Albumin/Globulin Ratio (1.0-2.1) Laboratory Results - last 24 hr 05/04/18 05/04/18 05/04/18 07:32 11:12 16:47 WBC RBC Hgb Hct MCV MCH MCHC RDW Plt Count MPV Neut % (Auto) Lymph % (Auto) [place] % (Auto) Eos % (Auto) Baso % (Auto) Neut # (Auto) Lymph # (Auto) [place] # (Auto) Eos # (Auto) Baso # (Auto) Sodium Potassium Chloride Carbon Dioxide Anion Gap BUN Creatinine Est GFR ( Amer) Est GFR (Non-Af Amer) POC Glucose (mg/dL) 181 H 184 H 153 H Random Glucose Calcium Phosphorus Magnesium Total Bilirubin AST ALT Alkaline Phosphatase Total Protein Albumin Globulin Albumin/Globulin Ratio 05/04/18 05/05/18 05/05/18 21:08 06:07 06:07 WBC 7.6 RBC 3.63 L Hgb 10.5 L Hct 32.1 L MCV 88.5 MCH 28.9 MCHC 32.6 L RDW 15.3 H Plt Count 217 MPV 9.6 Neut % (Auto) 83.6 H Lymph % (Auto) 12.9 L [place] % (Auto) 3.4 Eos % (Auto) 0.0 Baso % (Auto) 0.1 Neut # (Auto) 6.4 Lymph # (Auto) 1.0 [place] # (Auto) 0.3 Eos # (Auto) 0.0 Baso # (Auto) 0.0 Sodium 136 Potassium 4.3 Chloride 94 L Carbon Dioxide 37 H Anion Gap 9 L BUN 25 H Creatinine 0.7 Est GFR ( Amer) > 60 Est GFR (Non-Af Amer) > 60 POC Glucose (mg/dL) 219 H Random Glucose 219 H Calcium 8.7 Phosphorus 2.3 L Magnesium 2.2 Total Bilirubin 0.1 L AST 8 L D ALT 28 Alkaline Phosphatase 64 Total Protein 6.2 L Albumin 3.5 Globulin 2.8 Albumin/Globulin Ratio 1.3 05/05/18 07:46 WBC RBC Hgb Hct MCV MCH MCHC RDW Plt Count MPV Neut % (Auto) Lymph % (Auto) [place] % (Auto) Eos % (Auto) Baso % (Auto) Neut # (Auto) Lymph # (Auto) [place] # (Auto) Eos # (Auto) Baso # (Auto) Sodium Potassium Chloride Carbon Dioxide Anion Gap BUN Creatinine Est GFR ( Amer) Est GFR (Non-Af Amer) POC Glucose (mg/dL) 174 H Random Glucose Calcium Phosphorus Magnesium Total Bilirubin AST ALT Alkaline Phosphatase Total Protein Albumin Globulin Albumin/Globulin Ratio Fingerstick Blood Sugar Results: 174 Review of Systems - Constitutional Constitutional: absent: Fever, Chills - EENT Nose/Mouth/Throat: absent: Nasal Congestion - Cardiovascular Cardiovascular: absent: Chest Pain, Dyspnea - Respiratory Respiratory: absent: Cough, Dyspnea - Gastrointestinal Gastrointestinal: absent: Abdominal Pain, Diarrhea, Nausea, Vomiting - Genitourinary Genitourinary: absent: Dysuria - Psychiatric Psychiatric: absent: Anxiety, Depression Critical Care Progress Note - Nutrition Nutrition: Nutrition Category Date Time Status Heart Healthy Diet [DIET] Diets 05/03/18 Lunch Active Assessment/Plan - Assessment and Plan (Free Text) Assessment: 72 year old female with PMH of COPD, obstructive sleep apnea/obesity hypoventilation syndrome, bipolar disorder, depression, and Parkinson's disease who was transferred from half-way for shortness of breath and chest pressure. She was found to be hypercapneic and in respiratory distress, and was transferred to ICU on Bipap. BIPAP removed today, currently on NC. Plan: Neuro: Awake, alert and oriented x3 Speaking full sentences CT head: No acute intracranial abnormality, Mild age-related global parenchymal volume loss. Neuro consulted, appreciate all recs Cardio: maintaining MAP > 65 Lovenox 30mg SC daily for DVT ppx Cardio Dr. Kearney consulted, appreciate all recs; reports normal LV fxn on last Echo (December 2017) Pulmonary: CXR 05/04 : prominence of pulmonary vasculature may be secondary to AP technique and or pulmonary vascular congestion. Small left pleural effusion. Continue Duonebs Q4 [facility], Solumedrol 60mg Q8 Pulm Dr. Romeo consulted, appreciate all recs; Holding Zithromax and Aztreonam Oxygenating well off BIPAP and on NC. GI: Pepcid 20mg PO for ppx HHD with Consistent Carbs Renal: BUN/Cr 25/0.7 Continue to monitor I&Os Continue to monitor electrolytes, replete as needed ID: White count 10.5 Abx held as per Pulm's recs, will continue to monitor Endo: A1c 6.8 ISS and accuchecks Heme: H/H 10.5/32.1 No signs of bleeding, continue to monitor Lovenox 30 units SC for DVT ppx PPX: Pepcid for GI, Lovenox SC for DVT Code Status: Unknown, so Full by default Dispo: Transferred to Telemetry Case discussed with Dr. Cobb
--- NOTE | 2018-05-05 15:38 | CP.PCM.PN ---
Subjective - Date & Time of Evaluation Date of Evaluation: 05/05/18 Time of Evaluation: 15:00 - Subjective Subjective: clinically same Objective - Vital Signs/Intake and Output Vital Signs (last 24 hours): Temp Pulse Resp BP Pulse Ox 98 F 64 13 156/89 H 97 05/05/18 04:00 05/05/18 12:36 05/05/18 12:36 05/05/18 12:36 05/05/18 12:36 Intake and Output: 05/05/18 05/05/18 06:59 18:59 Intake Total 1000 150 Output Total 1100 Balance -100 150 - Medications Medications: Current Medications Albuterol/Ipratropium (Duoneb 3 Mg/0.5 Mg (3 Ml) Ud) 3 ml INH RQ4 [facility] Last Admin: 05/05/18 13:46 Dose: 3 ml Enoxaparin Sodium (Lovenox) 30 mg SC DAILY [facility] Last Admin: 05/05/18 09:06 Dose: 30 mg Famotidine (Pepcid) 20 mg IVP DAILY [facility] Last Admin: 05/05/18 09:06 Dose: 20 mg Azithromycin 500 mg/ Sodium (Chloride) 250 mls @ 250 mls/hr IVPB DAILY [facility] PRN Reason: Protocol Last Admin: 05/03/18 12:25 Dose: 250 mls/hr Aztreonam 2 gm/ Sodium (Chloride) 100 mls @ 200 mls/hr IVPB Q8H [facility] PRN Reason: Protocol Last Admin: 05/03/18 15:00 Dose: Not Given Insulin Human Regular (Novolin R) 0 unit SC ACHS [facility] PRN Reason: Protocol Last Admin: 05/05/18 12:30 Dose: 4 u Methylprednisolone (Solu-Medrol) 60 mg IV Q12 [facility] Last Admin: 05/05/18 09:06 Dose: 60 mg Vitamin A (Vitamin A & D Oint Ud Foilpak) 1 ea TOP BID [facility] - Labs Labs: 05/05/18 06:07 05/05/18 06:07 PT 10.1 SECONDS (9.7-12.2) 05/02/18 15:25 INR 0.9 05/02/18 15:25 APTT 36 SECONDS (21-34) H 05/02/18 15:25 - Constitutional Appears: Well - Head Exam Head Exam: ATRAUMATIC, NORMAL INSPECTION, NORMOCEPHALIC - Eye Exam Eye Exam: EOMI, Normal appearance, PERRL Pupil Exam: NORMAL ACCOMODATION, PERRL - ENT Exam ENT Exam: Mucous Membranes Moist, Normal Exam - Neck Exam Neck Exam: Full ROM, Normal Inspection. absent: Lymphadenopathy - Respiratory Exam Respiratory Exam: Decreased Breath Sounds - Cardiovascular Exam Cardiovascular Exam: REGULAR RHYTHM, +S1, +S2 - GI/Abdominal Exam GI & Abdominal Exam: Soft, Diminished Bowel Sounds - Rectal Exam Rectal Exam: Deferred
--- NOTE | 2018-05-05 15:39 | CP.PCM.PN ---
Subjective - Date & Time of Evaluation Date of Evaluation: 05/05/18 Time of Evaluation: 12:00 - Subjective Subjective: Patient seen and examined Patient is off BiPAP Denies shortness of breath Afebrile The patient is awake and responsive Objective - Vital Signs/Intake and Output Vital Signs (last 24 hours): Temp Pulse Resp BP Pulse Ox 98 F 64 13 156/89 H 97 05/05/18 04:00 05/05/18 12:36 05/05/18 12:36 05/05/18 12:36 05/05/18 12:36 Intake and Output: 05/05/18 05/05/18 06:59 18:59 Intake Total 1000 150 Output Total 1100 Balance -100 150 - Medications Medications: Current Medications Albuterol/Ipratropium (Duoneb 3 Mg/0.5 Mg (3 Ml) Ud) 3 ml INH RQ4 [facility] Last Admin: 05/05/18 13:46 Dose: 3 ml Enoxaparin Sodium (Lovenox) 30 mg SC DAILY [facility] Last Admin: 05/05/18 09:06 Dose: 30 mg Famotidine (Pepcid) 20 mg IVP DAILY [facility] Last Admin: 05/05/18 09:06 Dose: 20 mg Azithromycin 500 mg/ Sodium (Chloride) 250 mls @ 250 mls/hr IVPB DAILY [facility] PRN Reason: Protocol Last Admin: 05/03/18 12:25 Dose: 250 mls/hr Aztreonam 2 gm/ Sodium (Chloride) 100 mls @ 200 mls/hr IVPB Q8H [facility] PRN Reason: Protocol Last Admin: 05/03/18 15:00 Dose: Not Given Insulin Human Regular (Novolin R) 0 unit SC ACHS [facility] PRN Reason: Protocol Last Admin: 05/05/18 12:30 Dose: 4 u Methylprednisolone (Solu-Medrol) 60 mg IV Q12 [facility] Last Admin: 05/05/18 09:06 Dose: 60 mg Vitamin A (Vitamin A & D Oint Ud Foilpak) 1 ea TOP BID [facility] - Labs Labs: 05/05/18 06:07 05/05/18 06:07 PT 10.1 SECONDS (9.7-12.2) 05/02/18 15:25 INR 0.9 05/02/18 15:25 APTT 36 SECONDS (21-34) H 05/02/18 15:25 - Head Exam Head Exam: ATRAUMATIC, NORMOCEPHALIC - ENT Exam ENT Exam: Mucous Membranes Moist - Neck Exam Neck Exam: Normal Inspection - Respiratory Exam Respiratory Exam: Decreased Breath Sounds - Cardiovascular Exam Cardiovascular Exam: REGULAR RHYTHM - GI/Abdominal Exam GI & Abdominal Exam: Soft, Normal Bowel Sounds Assessment and Plan (1) Acute respiratory failure with hypercapnia Assessment & Plan: BiPAP as needed and at night Continue steroids and nebulizer treatment Status: Acute (2) FESTUS (obstructive sleep apnea) Status: Chronic (3) COPD (chronic obstructive pulmonary disease) Status: Acute
[2018-05-05] MEDS: Vitamins A & D Oint UD Foilpak TOP SCH (17:02)
[2018-05-06] MEDS: Albuterol-Ipratrop 3 mg / 0.5 (3 ml) UD INH SCH ×6 (00:36→20:20)
[2018-05-06] MEDS ORDERED: Simethicone 80 mg Chewtab PO STA (04:17)
[2018-05-06] MEDS: (Novolin R) Insulin Human Regular 100 units/ml vial SC SCH ×4 (09:23→22:27)
[2018-05-06] MEDS: Vitamins A & D Oint UD Foilpak TOP SCH ×2 (10:14→18:30)
[2018-05-06] MEDS: MethylPREDNISolone 40 mg Vial IV SCH (10:14)
[2018-05-06] MEDS: Enoxaparin 30 mg Syringe SC SCH (10:15)
--- NOTE | 2018-05-06 17:02 | CP.PCM.PN ---
Subjective - Date & Time of Evaluation Date of Evaluation: 05/06/18 Time of Evaluation: 10:45 - Subjective Subjective: clinically same Objective - Vital Signs/Intake and Output Vital Signs (last 24 hours): Temp Pulse Resp BP Pulse Ox 98.6 F 71 20 112/81 96 05/06/18 15:00 05/06/18 15:00 05/06/18 15:00 05/06/18 15:00 05/06/18 15:00 Intake and Output: 05/06/18 05/06/18 06:59 18:59 Intake Total 490 Output Total 1350 1999 Balance -860 -1999 - Medications Medications: Current Medications Albuterol/Ipratropium (Duoneb 3 Mg/0.5 Mg (3 Ml) Ud) 3 ml INH RQ4 [facility] Last Admin: 05/06/18 16:24 Dose: 3 ml Amlodipine Besylate (Norvasc) 10 mg PO DAILY [facility] Last Admin: 05/06/18 10:14 Dose: 10 mg Enoxaparin Sodium (Lovenox) 30 mg SC DAILY [facility] Last Admin: 05/06/18 10:15 Dose: 30 mg Famotidine (Pepcid) 20 mg IVP DAILY [facility] Last Admin: 05/06/18 10:15 Dose: 20 mg Azithromycin 500 mg/ Sodium (Chloride) 250 mls @ 250 mls/hr IVPB DAILY [facility] PRN Reason: Protocol Last Admin: 05/03/18 12:25 Dose: 250 mls/hr Aztreonam 2 gm/ Sodium (Chloride) 100 mls @ 200 mls/hr IVPB Q8H [facility] PRN Reason: Protocol Last Admin: 05/03/18 15:00 Dose: Not Given Insulin Human Regular (Novolin R) 0 unit SC ACHS [facility] PRN Reason: Protocol Last Admin: 05/06/18 13:09 Dose: 3 u Methylprednisolone (Solu-Medrol) 60 mg IV DAILY [facility] Last Admin: 05/06/18 10:14 Dose: 60 mg Vitamin A (Vitamin A & D Oint Ud Foilpak) 1 ea TOP BID [facility] Last Admin: 05/06/18 10:14 Dose: 1 ea - Labs Labs: 05/05/18 06:07 05/05/18 06:07 PT 10.1 SECONDS (9.7-12.2) 09/14/18 15:25 INR 0.9 05/02/18 15:25 APTT 36 SECONDS (21-34) H 05/02/18 15:25 - Constitutional Appears: Well - Head Exam Head Exam: ATRAUMATIC, NORMAL INSPECTION, NORMOCEPHALIC - Eye Exam Eye Exam: EOMI, Normal appearance, PERRL Pupil Exam: NORMAL ACCOMODATION, PERRL - ENT Exam ENT Exam: Mucous Membranes Moist, Normal Exam - Neck Exam Neck Exam: Full ROM, Normal Inspection. absent: Lymphadenopathy - Respiratory Exam Respiratory Exam: Decreased Breath Sounds - Cardiovascular Exam Cardiovascular Exam: REGULAR RHYTHM, +S1, +S2 - GI/Abdominal Exam GI & Abdominal Exam: Soft, Diminished Bowel Sounds - Rectal Exam Rectal Exam: Deferred
--- NOTE | 2018-05-06 17:52 | CP.PCM.CON ---
History of Present Illness - History of Present Illness History of Present Illness: 72 F with PMHx of COPD, dementia, depression, hypertension, hypothryroidism, Parkinson's Disease, sleep apnea, anemia, anxiety, arthritis, bipolar disorder. General surgery consulted for placement for portacath placement. Denies chest pain, n/v, abdominal pain. Review of Systems - Review of Systems Review of Systems: 12 pt ROS unremarkable except as stated in HPI Past Patient History - Infectious Disease Hx of Infectious Diseases: None, VRE - Tetanus Immunizations Tetanus Immunization: Unknown - Past Medical History & Family History Past Medical History?: Yes - Past Social History Smoking Status: Never Smoked - CARDIAC Hx Hypertension: Yes - PULMONARY Hx Chronic Obstructive Pulmonary Disease (COPD): Yes - NEUROLOGICAL Hx Dementia: Yes Hx Parkinson's Disease: Yes - HEENT Hx HEENT Problems: No - RENAL Hx Chronic Kidney Disease: No - ENDOCRINE/METABOLIC Hx Hypothyroidism: Yes - HEMATOLOGICAL/ONCOLOGICAL Hx Anemia: Yes - INTEGUMENTARY Hx Dermatological Problems: No - MUSCULOSKELETAL/RHEUMATOLOGICAL Hx Arthritis: Yes - GASTROINTESTINAL Hx Gastrointestinal Disorders: Yes Hx Constipation: Yes Hx Gastroesophageal Reflux: Yes - GENITOURINARY/GYNECOLOGICAL Hx Genitourinary Disorders: Yes Hx Incontinence: Yes Hx Urinary Tract Infection: Yes - PSYCHIATRIC Hx Anxiety: Yes Hx Bipolar Disorder: Yes Hx Depression: Yes Hx Substance Use: No - SURGICAL HISTORY Hx Surgeries: Yes Hx Hysterectomy: Yes Hx Orthopedic Surgery: Yes Other/Comment: right knee replacement 2014; right knee prosthesis removal s/p infection 2014 - ANESTHESIA Hx Anesthesia: Yes Hx Anesthesia Reactions: No Hx Malignant Hyperthermia: No Meds Allergies/Adverse Reactions: Allergies Allergy/AdvReac Type Severity Reaction Status Date / Time Cephalosporins Allergy Intermediate RASH Verified 05/02/18 15:14 Penicillins Allergy Intermediate RASH Verified 05/02/18 15:14 clonazepam [From Klonopin] Allergy Verified 05/02/18 15:14 mustard Allergy Intermediate RASH Uncoded 04/08/18 20:07 - Medications Medications: Current Medications Albuterol/Ipratropium (Duoneb 3 Mg/0.5 Mg (3 Ml) Ud) 3 ml INH RQ4 [facility] Last Admin: 05/06/18 16:24 Dose: 3 ml Amlodipine Besylate (Norvasc) 10 mg PO DAILY [facility] Last Admin: 05/06/18 10:14 Dose: 10 mg Enoxaparin Sodium (Lovenox) 30 mg SC DAILY [facility] Last Admin: 05/06/18 10:15 Dose: 30 mg Famotidine (Pepcid) 20 mg IVP DAILY [facility] Last Admin: 05/06/18 10:15 Dose: 20 mg Azithromycin 500 mg/ Sodium (Chloride) 250 mls @ 250 mls/hr IVPB DAILY [facility] PRN Reason: Protocol Last Admin: 05/03/18 12:25 Dose: 250 mls/hr Aztreonam 2 gm/ Sodium (Chloride) 100 mls @ 200 mls/hr IVPB Q8H [facility] PRN Reason: Protocol Last Admin: 05/03/18 15:00 Dose: Not Given Insulin Human Regular (Novolin R) 0 unit SC ACHS [facility] PRN Reason: Protocol Last Admin: 05/06/18 13:09 Dose: 3 u Methylprednisolone (Solu-Medrol) 60 mg IV DAILY [facility] Last Admin: 05/06/18 10:14 Dose: 60 mg Vitamin A (Vitamin A & D Oint Ud Foilpak) 1 ea TOP BID [facility] Last Admin: 05/06/18 10:14 Dose: 1 ea Physical Exam - Constitutional Appears: Chronically Ill Additional comments: morbidly obese - Eye Exam Eye Exam: Normal appearance - ENT Exam ENT Exam: Mucous Membranes Moist - Respiratory Exam Respiratory Exam: NORMAL BREATHING PATTERN - Cardiovascular Exam Cardiovascular Exam: +S1, +S2 - GI/Abdominal Exam GI & Abdominal Exam: Soft - Neurological Exam Neurological exam: Alert, Oriented x3 - Psychiatric Exam Psychiatric exam: Normal Mood - Skin Skin Exam: Dry, Normal Color Results - Vital Signs Recent Vital Signs: Last Vital Signs Temp 98.6 F 05/06/18 15:00 Pulse 71 05/06/18 16:00 Resp 20 05/06/18 15:00 BP 112/81 05/06/18 15:00 Pulse Ox 96 05/06/18 15:00 - Labs Result Diagrams: 05/05/18 06:07 05/05/18 06:07 Labs: Laboratory Results - last 24 hr 05/05/18 05/06/18 05/06/18 21:49 06:38 11:20 POC Glucose (mg/dL) 168 H 229 H 234 H 05/06/18 16:52 POC Glucose (mg/dL) 289 H Assessment & Plan - Assessment and Plan (Free Text) Assessment: 72F need for central vascular access Plan: NPO p MN IVF AM labs For portacath insertion tomorrow Consent in chart D/w Dr. Lui Soriano PGY3
[2018-05-07] MEDS: Albuterol-Ipratrop 3 mg / 0.5 (3 ml) UD INH SCH ×6 (00:18→19:23)
[2018-05-07] MEDS: (Novolin R) Insulin Human Regular 100 units/ml vial SC SCH ×4 (08:10→21:40)
[2018-05-07] MEDS: MethylPREDNISolone 40 mg Vial IV SCH (11:00)
[2018-05-07] MEDS: Azithromycin 500 MG in Sodium Chloride 0.9% 250 ML IVPB SCH (11:00)
[2018-05-07] MEDS: Vitamins A & D Oint UD Foilpak TOP SCH ×2 (11:00→17:42)
[2018-05-07] MEDS ORDERED: Lidocaine Hydrochloride 5 ML INJ ONE (12:35)
[2018-05-07] MEDS ORDERED: HEPARIN-NS 5,000 UNITS/500 ML 5,000 UNIT/500 ML BAG IV ONE (12:36)
[2018-05-07] MEDS ORDERED: Midazolam 2 MG/2 ML VIAL ONE (12:51)
[2018-05-07] MEDS ORDERED: Etomidate 20 mg/10ml Inj IV ONE (12:52)
[2018-05-07] MEDS ORDERED: Vancomycin 1 gm/D5W 200 ml 0 GM/0 ML BAG IVPB ONE (12:54)
[2018-05-07] MEDS ORDERED: Lidocaine Hydrochloride 10 ML INJ ONE (13:10)
[2018-05-07] MEDS ORDERED: Lidocaine Hydrochloride 15 ML INJ ONE (13:27)
--- NOTE | 2018-05-07 13:51 | PCM.SURG1 ---
Surgeon's Initial Post Op Note - Surgeon's Notes Surgeon: Elvin Poe MD Religious Studies Professor: Zunilda Phillips, PGY-2 Type of Anesthesia: IV Sedation, Local Anesthesia Administered By: Dr. Russell Pre-Operative Diagnosis: Poor vascular access Operative Findings: See op report Post-Operative Diagnosis: Poor vascular access Operation Performed: Right IJ portacath placement Specimen/Specimens Removed: none Estimated Blood Loss: EBL {In ML}: 10 Blood Products Given: N/A Drains Used: No Drains Post-Op Condition: Good Date of Surgery/Procedure: 05/07/18 Time of Surgery/Procedure: 13:51
--- NOTE | 2018-05-07 14:25 | CARD ---
APPROVED REPORT Date of service: 05/02/2018 EKG Measurement Heart [id number] <Conclusion> Normal sinus rhythm Possible Left atrial enlargement Incomplete right bundle branch block Nonspecific ST abnormality Abnormal ECG
--- NOTE | 2018-05-07 14:39 | RAD ---
Date of service: 05/07/2018 PROCEDURE: Intraoperative Fluoroscopy. HISTORY: CENTRAL VACULAR ACCESS FINDINGS: Fluoroscopic assistance was provided for right-sided Port-A-Cath placement. Please refer to the operative report from [facility] [place].
--- NOTE | 2018-05-07 15:04 | RAD ---
Date of service: 05/07/2018 HISTORY: RIj portacath placement COMPARISON: Portable chest 05/04/2018. FINDINGS: LUNGS: Left basilar opacity is unchanged. Interval right MediPort is identified placed by an apparent right internal jugular approach with the tip terminating at the right atrium. PLEURA: Left pleural effusion not completely excluded. None is seen the right. No pneumothorax bilaterally. CARDIOVASCULAR: Moderate cardiac silhouette reiterated with mild but diminished pulmonary vascular congestion. OSSEOUS STRUCTURES: No significant abnormalities. VISUALIZED UPPER ABDOMEN: Normal. OTHER FINDINGS: None. IMPRESSION: Interval right MediPort deployment terminating in right atrium as discussed above. Improved CHF pattern. Left basilar airspace disease/pleural effusion remain difficult to exclude.
--- NOTE | 2018-05-07 15:40 | CP.PCM.PN ---
Subjective - Date & Time of Evaluation Date of Evaluation: 05/07/18 Time of Evaluation: 14:45 - Subjective Subjective: Patient seen and examined Status post Port-A-Cath insertion No shortness of breath Patient is alert and oriented Afebrile Transfer to [facility] Nebulizer treatment Steroids BiPAP Objective - Vital Signs/Intake and Output Vital Signs (last 24 hours): Temp Pulse Resp BP Pulse Ox 97.1 F L 67 15 162/80 H 100 05/07/18 13:51 05/07/18 14:45 05/07/18 14:45 05/07/18 14:45 05/07/18 14:45 Intake and Output: 05/07/18 05/07/18 06:59 18:59 Intake Total 150 Output Total 1500 Balance -1500 150 - Medications Medications: Current Medications Acetaminophen (Tylenol 325mg Tab) 650 mg PO Q6 PRN PRN Reason: Pain, moderate (4-7) Albuterol/Ipratropium (Duoneb 3 Mg/0.5 Mg (3 Ml) Ud) 3 ml INH RQ4 [facility] [place] Last Admin: 05/07/18 14:12 Dose: Not Given Amlodipine Besylate (Norvasc) 10 mg PO DAILY [facility] Last Admin: 05/07/18 11:00 Dose: 10 mg Enoxaparin Sodium (Lovenox) 30 mg SC DAILY [facility] [place] Last Admin: 05/06/18 10:15 Dose: 30 mg Famotidine (Pepcid) 20 mg IVP DAILY [facility] [place] Last Admin: 05/07/18 11:00 Dose: 20 mg Azithromycin 500 mg/ Sodium (Chloride) 250 mls @ 250 mls/hr IVPB DAILY [facility] [place] PRN Reason: Protocol Last Admin: 05/07/18 11:00 Dose: 250 mls/hr Aztreonam 2 gm/ Sodium (Chloride) 100 mls @ 200 mls/hr IVPB Q8H [facility] PRN Reason: Protocol Last Admin: 05/03/18 15:00 Dose: Not Given Insulin Human Regular (Novolin R) 0 unit SC ACHS [facility] [place] PRN Reason: Protocol Last Admin: 05/07/18 12:01 Dose: Not Given Methylprednisolone (Solu-Medrol) 60 mg IV DAILY [facility] [place] Last Admin: 05/07/18 11:00 Dose: 60 mg Morphine Sulfate (Morphine) 2 mg IVP Q10M PRN PRN Reason: Pain, moderate (4-7) Stop: 05/07/18 15:52 Ondansetron HCl (Zofran Inj) 4 mg IVP ONCE PRN PRN Reason: Nausea/Vomiting Stop: 05/07/18 15:52 Vitamin A (Vitamin A & D Oint Ud Foilpak) 1 ea TOP BID [facility] Last Admin: 05/07/18 11:00 Dose: 1 ea - Labs Labs: 05/05/18 06:07 05/05/18 06:07 PT 10.1 SECONDS (9.7-12.2) 05/02/18 15:25 INR 0.9 05/02/18 15:25 APTT 36 SECONDS (21-34) H 05/02/18 15:25 Assessment and Plan (1) Acute respiratory failure with hypercapnia Status: Acute (2) FESTUS (obstructive sleep apnea) Status: Chronic (3) COPD (chronic obstructive pulmonary disease) Status: Acute
--- NOTE | 2018-05-07 20:31 | CP.PCM.PN ---
Subjective - Date & Time of Evaluation Date of Evaluation: 05/07/18 Time of Evaluation: 10:00 - Subjective Subjective: clinically same Objective - Vital Signs/Intake and Output Vital Signs (last 24 hours): Temp Pulse Resp BP Pulse Ox 98.7 F 69 20 145/87 99 05/07/18 15:36 05/07/18 15:36 05/07/18 15:36 05/07/18 15:36 05/07/18 15:36 Intake and Output: 05/07/18 05/08/18 18:59 06:59 Intake Total 150 Balance 150 - Medications Medications: Current Medications Acetaminophen (Tylenol 325mg Tab) 650 mg PO Q6 PRN PRN Reason: Pain, moderate (4-7) Albuterol/Ipratropium (Duoneb 3 Mg/0.5 Mg (3 Ml) Ud) 3 ml INH RQ4 [facility] Last Admin: 05/07/18 19:23 Dose: 3 ml Amlodipine Besylate (Norvasc) 10 mg PO DAILY [facility] Last Admin: 05/07/18 11:00 Dose: 10 mg Carbidopa/Levodopa (Sinemet) 2 tab PO ACTID [facility] Enoxaparin Sodium (Lovenox) 30 mg SC DAILY [facility] Last Admin: 05/06/18 10:15 Dose: 30 mg Famotidine (Pepcid) 20 mg IVP DAILY [facility] Last Admin: 05/07/18 11:00 Dose: 20 mg Azithromycin 500 mg/ Sodium (Chloride) 250 mls @ 250 mls/hr IVPB DAILY [facility] PRN Reason: Protocol Last Admin: 05/07/18 11:00 Dose: 250 mls/hr Aztreonam 2 gm/ Sodium (Chloride) 100 mls @ 200 mls/hr IVPB Q8H [facility] PRN Reason: Protocol Last Admin: 05/03/18 15:00 Dose: Not Given Insulin Human Regular (Novolin R) 0 unit SC ACHS [facility] PRN Reason: Protocol Last Admin: 05/07/18 17:42 Dose: 3 u Methylprednisolone (Solu-Medrol) 60 mg IV DAILY [facility] Last Admin: 05/07/18 11:00 Dose: 60 mg Vitamin A (Vitamin A & D Oint Ud Foilpak) 1 ea TOP BID [facility] Last Admin: 05/07/18 17:42 Dose: 1 ea - Labs Labs: 05/05/18 06:07 05/05/18 06:07 PT 10.1 SECONDS (9.7-12.2) 05/02/18 15:25 INR 0.9 05/02/18 15:25 APTT 36 SECONDS (21-34) H 05/02/18 15:25
[2018-05-07] MEDS: Rosuvastatin Calcium 2.5 mg Tab PO SCH (21:39)
[2018-05-07] MEDS: Insulin Detemir 100 units/ml Vial (Levemir) SC SCH (21:40)
[2018-05-08] MEDS: Albuterol-Ipratrop 3 mg / 0.5 (3 ml) UD INH SCH ×6 (00:33→19:40)
--- NOTE | 2018-05-08 01:04 | OP ---
PROCEDURE DATE: 05/07/2018 PREOPERATIVE DIAGNOSIS: Lack of venous access, avenia. POSTOPERATIVE DIAGNOSIS: Lack of venous access, avenia. PROCEDURE CARRIED OUT: Placement of right jugular PowerPort, ultrasound guidance micropuncture technique and fluoroscopy. SURGEON: Elvin Poe Jr., MD [place]: Zunilda Phillips DO ANESTHESIOLOGIST: Washington Russell MD ANESTHESIA: Local with sedation. INDICATIONS: The patient is a morbidly obese woman who has lack of venous access, requires it, respiratory failure, etc. OPERATIVE FINDINGS: Catheter was inserted uneventfully via the jugular vein. DESCRIPTION OF PROCEDURE: The patient was given local anesthesia. Using ultrasound guidance micropuncture technique, the right jugular vein was cannulated. Under fluoroscopy, the guidewire was advanced centrally. A sheath dilator was passed over this, and then the catheter was positioned deeper. The original fluoroscopic films remained normal. Because of the patient's habitus, retract as the patient assumes a normal upright position. After this had been done, it was flushed with heparinized saline with good flow and return. The procedure was terminated. Blood loss during the procedure was 5 to 10 mL. OPERATION CARRIED OUT: Port-A-Cath right jugular vein with C-arm fluoroscopy, ultrasound guided puncture, micropuncture technique. Ultrasound images of the neck shows the vein was 11 mm in diameter with normal compressibility and no intraluminal thrombosis. Elvin Poe Jr., MD
--- NOTE | 2018-05-08 06:25 | CON ---
DATE: 05/07/2018 PSYCHIATRIC CONSULTATION CHIEF COMPLAINT AND REASON FOR CONSULTATION: The patient was referred by Dr. Darrell Foster for evaluation and comanagement of depression and anxiety. The patient is well known to me. I have been treating her in the past for at least 10 years. HISTORY OF PRESENT ILLNESS: This is a case of 72-year-old female who is a resident of [facility] for the last 8 years. The patient was admitted here for lethargy. The patient was diagnosed of hypercapnic respiratory failure. The patient is doing much better, has BiPAP. The patient was referred for comanagement for depression and anxiety. The patient has a long history of depression and anxiety. She has been admitted numerous times in the past, but the patient on the record, was now found to be taking Lexapro 10 mg daily. The patient states that she has been feeling very anxious. The patient also has history of Parkinson's for many years and was taking Sinemet 25/100 two tabs p.o. 3 times daily but has been not prescribed in the hospital. The patient was asking to issue me as the patient is having increasing tremors and having difficulty eating current meals. The patient still has very good appetite despite the pulmonary problems. She states that she wants some medications for anxiety and also for Parkinson's. PAST MEDICAL HISTORY: A long history of depression and anxiety, history of multiple admissions in the past. History of COPD. The patient also has history of bipolar, hypertension, hypothyroidism, obesity, sleep apnea, BiPAP, Parkinson disease. DRUG AND ALCOHOL HISTORY: Denies any. ALLERGIES: THE PATIENT IS ALLERGIC TO CEPHALOSPORIN, PENICILLIN, KLONOPIN, AND MUSTARD. PSYCHOSOCIAL HISTORY: He is a long-term resident of [facility]. LIST OF CURRENT MEDICATIONS: Include azithromycin, aztreonam, DuoNeb, Lovenox, Norvasc, Novolin, Pepcid, Solu-Medrol as well as Tylenol. VITAL SIGNS: Temperature is 98.7, pulse 69, blood pressure 145/87, respirations 20, and oxygen saturation is 99%. REVIEW OF SYSTEMS: GENERAL: The patient is alert, oriented x3, seen in her room eating. The patient still is short of breath off and on. SKIN: No diaphoresis. HEENT: No headache, no dizziness. NECK: Supple. RESPIRATORY: The patient has off and on dyspnea. CARDIOVASCULAR: No chest pain. GASTROINTESTINAL: Has voracious appetite despite the pulmonary problems. EXTREMITIES: The patient is nonambulatory. Has been in bed for years. NEUROLOGIC: Alert, oriented x3. GENITOURINARY: No urinary problems. MENTAL STATUS EXAMINATION: An elderly female who is morbidly obese who is 5 feet 2 inches and 306 pounds. Mood is anxious and somatic. Affect is reactive. Speech spontaneous. The patient is quite depressed. Thought process, coherent. Thought content, no overt psychosis. The patient wants to resume her medications for Parkinson's and depression. No psychosis . No suicidal ideation. Attention and memory seemed to be fair. Insight and judgment fair. Impulse control is fair. IMPRESSION: History of recurrent depression and mood disorder secondary to medical problems. PLAN AND RECOMMENDATIONS: The patient is seen, meds reviewed. The patient has been taking Lexapro in the past; however, the patient is currently taking azithromycin and cannot be combined together. The reason that the combination of Lexapro and azithromycin may cause prolongation of QTc interval, I will hold off giving antidepressant as the patient is on this antibiotic; however we will put her back on her Sinemet for her Parkinson's. Other medications that the patient is taking at the correction includes the patient was on Neurontin as well as taking primidone. Neurontin was given for neuropathy and primidone was given probably for seizures. The patient wants to resume these medications. For now, we will hold off the patient from her SSRI as the patient is on azithromycin to avoid cardiac complications. Continue treatment plan as outlined. Jovani Wilson MD [facility]
[2018-05-08] MEDS: Levothyroxine 150 MCG TAB PO SCH (06:35)
[2018-05-08] MEDS: (Novolin R) Insulin Human Regular 100 units/ml vial SC SCH ×4 (08:18→21:35)
--- NOTE | 2018-05-08 08:34 | CP.PCM.PN ---
Subjective - Date & Time of Evaluation Date of Evaluation: 05/08/18 Time of Evaluation: 08:32 - Subjective Subjective: Vascular surgery progress note for Dr. Margaux Phillips, PGY-2 Pt S & E at bedside at 0710 Pt without complaints overnight. No acute events overnight per nursing. Objective - Vital Signs/Intake and Output Vital Signs (last 24 hours): Temp Pulse Resp BP Pulse Ox 98 F 77 20 130/81 98 05/08/18 07:47 05/08/18 07:47 05/08/18 07:47 05/08/18 07:47 05/08/18 07:47 Intake and Output: 05/08/18 05/08/18 06:59 18:59 Output Total 1650 Balance -1650 - Medications Medications: Current Medications Acetaminophen (Tylenol 325mg Tab) 650 mg PO Q6 PRN PRN Reason: Pain, moderate (4-7) Albuterol/Ipratropium (Duoneb 3 Mg/0.5 Mg (3 Ml) Ud) 3 ml INH RQ4 [facility] Last Admin: 05/08/18 08:00 Dose: 3 ml Amlodipine Besylate (Norvasc) 10 mg PO DAILY [facility] Last Admin: 05/07/18 11:00 Dose: 10 mg Carbidopa/Levodopa (Sinemet) 2 tab PO ACTID [facility] Last Admin: 05/08/18 06:35 Dose: 2 tab Enoxaparin Sodium (Lovenox) 30 mg SC DAILY [facility] Last Admin: 05/06/18 10:15 Dose: 30 mg Famotidine (Pepcid) 20 mg IVP DAILY [facility] Last Admin: 05/07/18 11:00 Dose: 20 mg Gabapentin (Neurontin) 300 mg PO BID [facility] Last Admin: 05/07/18 21:40 Dose: 300 mg Azithromycin 500 mg/ Sodium (Chloride) 250 mls @ 250 mls/hr IVPB DAILY [facility] PRN Reason: Protocol Last Admin: 05/07/18 11:00 Dose: 250 mls/hr Aztreonam 2 gm/ Sodium (Chloride) 100 mls @ 200 mls/hr IVPB Q8H [facility] PRN Reason: Protocol Last Admin: 05/03/18 15:00 Dose: Not Given Insulin Detemir (Levemir) 40 unit SC [facility] Last Admin: 09/19/18 21:40 Dose: 40 u Insulin Human Regular (Novolin R) 0 unit SC ACHS [facility] PRN Reason: Protocol Last Admin: 05/08/18 08:18 Dose: Not Given Levothyroxine Sodium (Synthroid) 150 mcg PO DAILY@0630 [facility] Last Admin: 05/08/18 06:35 Dose: 150 mcg Methylprednisolone (Solu-Medrol) 60 mg IV DAILY [facility] Last Admin: 05/07/18 11:00 Dose: 60 mg Montelukast Sodium (Singulair) 10 mg PO HS [facility] Last Admin: 05/07/18 21:40 Dose: 10 mg Rosuvastatin Calcium (Crestor) 2.5 mg PO HS [facility] Last Admin: 05/07/18 21:39 Dose: 2.5 mg Vitamin A (Vitamin A & D Oint Ud Foilpak) 1 ea TOP BID [facility] Last Admin: 05/07/18 17:42 Dose: 1 ea - Labs Labs: 05/05/18 06:07 05/05/18 06:07 PT 10.1 SECONDS (9.7-12.2) 05/02/18 15:25 INR 0.9 05/02/18 15:25 APTT 36 SECONDS (21-34) H 05/02/18 15:25 - Constitutional Appears: Non-toxic, No Acute Distress - Head Exam Head Exam: ATRAUMATIC, NORMAL INSPECTION, NORMOCEPHALIC - Eye Exam Eye Exam: EOMI, Normal appearance - ENT Exam ENT Exam: Mucous Membranes Moist, Normal Exam - Neck Exam Neck Exam: Normal Inspection Additional comments: Dressing in place over right neck/chest wall-clean/dry/intact - Respiratory Exam Respiratory Exam: NORMAL BREATHING PATTERN - GI/Abdominal Exam GI & Abdominal Exam: Soft. absent: Distended (obese), Tenderness - Neurological Exam Neurological Exam: Alert, Awake, CN II-XII Intact, Oriented x3 - Psychiatric Exam Psychiatric exam: Normal Affect, Normal Mood - Skin Skin Exam: Dry, Intact, Normal Color, Warm Assessment and Plan - Assessment and Plan (Free Text) Assessment: 72F POD#1 s/p Right IJ portacath insertion Plan: No futher vascular surgery intervention Further mgmt as per primary team Thank you for this consult Will DW Dr. Lui Phillips, PGY-2
[2018-05-08] MEDS: Azithromycin 500 MG in Sodium Chloride 0.9% 250 ML IVPB SCH (09:39)
[2018-05-08] MEDS: Vitamins A & D Oint UD Foilpak TOP SCH ×2 (09:40→17:39)
[2018-05-08] MEDS ORDERED: MethylPREDNISolone 40 mg Vial IV SCH (10:00)
--- NOTE | 2018-05-08 16:09 | CP.PCM.PN ---
Subjective - Date & Time of Evaluation Date of Evaluation: 05/08/18 Time of Evaluation: 09:45 - Subjective Subjective: clinically same Objective - Vital Signs/Intake and Output Vital Signs (last 24 hours): Temp Pulse Resp BP Pulse Ox 98 F 77 20 130/81 98 05/08/18 07:47 05/08/18 10:00 05/08/18 07:47 05/08/18 07:47 05/08/18 07:47 Intake and Output: 05/08/18 05/08/18 06:59 18:59 Intake Total 750 Output Total 1650 500 Balance -1650 250 - Medications Medications: Current Medications Acetaminophen (Tylenol 325mg Tab) 650 mg PO Q6 PRN PRN Reason: Pain, moderate (4-7) Albuterol/Ipratropium (Duoneb 3 Mg/0.5 Mg (3 Ml) Ud) 3 ml INH RQ4 [facility] Last Admin: 05/08/18 11:32 Dose: 3 ml Amlodipine Besylate (Norvasc) 10 mg PO DAILY [facility] Last Admin: 05/08/18 09:23 Dose: 10 mg Carbidopa/Levodopa (Sinemet) 2 tab PO ACTID [facility] Last Admin: 05/08/18 11:38 Dose: 2 tab Enoxaparin Sodium (Lovenox) 30 mg SC DAILY [facility] Last Admin: 05/06/18 10:15 Dose: 30 mg Famotidine (Pepcid) 20 mg IVP DAILY [facility] Last Admin: 05/08/18 09:24 Dose: 20 mg Gabapentin (Neurontin) 300 mg PO BID [facility] Last Admin: 05/08/18 09:23 Dose: 300 mg Azithromycin 500 mg/ Sodium (Chloride) 250 mls @ 250 mls/hr IVPB DAILY [facility] PRN Reason: Protocol Last Admin: 05/08/18 09:39 Dose: 250 mls/hr Aztreonam 2 gm/ Sodium (Chloride) 100 mls @ 200 mls/hr IVPB Q8H [facility] PRN Reason: Protocol Last Admin: 05/03/18 15:00 Dose: Not Given Insulin Detemir (Levemir) 40 unit SC HS [facility] Last Admin: 05/07/18 21:40 Dose: 40 u Insulin Human Regular (Novolin R) 0 unit SC ACHS [facility] PRN Reason: Protocol Last Admin: 09/20/18 11:38 Dose: 2 u Levothyroxine Sodium (Synthroid) 150 mcg PO DAILY@0630 [facility] Last Admin: 05/08/18 06:35 Dose: 150 mcg Methylprednisolone (Solu-Medrol) 40 mg IV DAILY [facility] Last Admin: 05/08/18 09:26 Dose: 40 mg Montelukast Sodium (Singulair) 10 mg PO HS [facility] Last Admin: 05/07/18 21:40 Dose: 10 mg Rosuvastatin Calcium (Crestor) 2.5 mg PO HS [facility] Last Admin: 05/07/18 21:39 Dose: 2.5 mg Vitamin A (Vitamin A & D Oint Ud Foilpak) 1 ea TOP BID [facility] Last Admin: 05/08/18 09:40 Dose: 1 ea - Labs Labs: 05/05/18 06:07 05/05/18 06:07 PT 10.1 SECONDS (9.7-12.2) 05/02/18 15:25 INR 0.9 05/02/18 15:25 APTT 36 SECONDS (21-34) H 05/02/18 15:25
--- NOTE | 2018-05-08 17:48 | CP.PCM.PN ---
Subjective - Date & Time of Evaluation Date of Evaluation: 05/08/18 Time of Evaluation: 12:00 - Subjective Subjective: patient seen and examined On BiPAP at night Awake and responsive Status post Port-A-Cath Objective - Vital Signs/Intake and Output Vital Signs (last 24 hours): Temp Pulse Resp BP Pulse Ox 97.9 F 85 20 128/73 98 05/08/18 16:00 05/08/18 16:00 05/08/18 16:00 05/08/18 16:00 05/08/18 16:00 Intake and Output: 05/08/18 05/08/18 06:59 18:59 Intake Total 750 Output Total 1650 500 Balance -1650 250 - Medications Medications: Current Medications Acetaminophen (Tylenol 325mg Tab) 650 mg PO Q6 PRN PRN Reason: Pain, moderate (4-7) Albuterol/Ipratropium (Duoneb 3 Mg/0.5 Mg (3 Ml) Ud) 3 ml INH RQ4 [facility] Last Admin: 05/08/18 16:15 Dose: 3 ml Amlodipine Besylate (Norvasc) 10 mg PO DAILY [facility] Last Admin: 05/08/18 09:23 Dose: 10 mg Carbidopa/Levodopa (Sinemet) 2 tab PO ACTID [facility] Last Admin: 05/08/18 17:39 Dose: 2 tab Enoxaparin Sodium (Lovenox) 30 mg SC DAILY [facility] Last Admin: 05/06/18 10:15 Dose: 30 mg Famotidine (Pepcid) 20 mg IVP DAILY [facility] Last Admin: 05/08/18 09:24 Dose: 20 mg Gabapentin (Neurontin) 300 mg PO BID [facility] Last Admin: 05/08/18 17:38 Dose: 300 mg Azithromycin 500 mg/ Sodium (Chloride) 250 mls @ 250 mls/hr IVPB DAILY [facility] PRN Reason: Protocol Last Admin: 05/08/18 09:39 Dose: 250 mls/hr Aztreonam 2 gm/ Sodium (Chloride) 100 mls @ 200 mls/hr IVPB Q8H [facility] PRN Reason: Protocol Last Admin: 05/03/18 15:00 Dose: Not Given Insulin Detemir (Levemir) 40 unit SC HS [facility] Last Admin: 05/07/18 21:40 Dose: 40 u Insulin Human Regular (Novolin R) 0 unit SC ACHS [facility] PRN Reason: Protocol Last Admin: 05/08/18 17:39 Dose: 6 u Levothyroxine Sodium (Synthroid) 150 mcg PO DAILY@0630 [facility] Last Admin: 05/08/18 06:35 Dose: 150 mcg Methylprednisolone (Solu-Medrol) 40 mg IV DAILY [facility] Last Admin: 05/08/18 09:26 Dose: 40 mg Montelukast Sodium (Singulair) 10 mg PO HS [facility] Last Admin: 05/07/18 21:40 Dose: 10 mg Rosuvastatin Calcium (Crestor) 2.5 mg PO HS [facility] Last Admin: 05/07/18 21:39 Dose: 2.5 mg Vitamin A (Vitamin A & D Oint Ud Foilpak) 1 ea TOP BID [facility] Last Admin: 05/08/18 17:39 Dose: 1 ea - Labs Labs: 05/05/18 06:07 05/05/18 06:07 PT 10.1 SECONDS (9.7-12.2) 05/02/18 15:25 INR 0.9 05/02/18 15:25 APTT 36 SECONDS (21-34) H 05/02/18 15:25 - Head Exam Head Exam: ATRAUMATIC, NORMOCEPHALIC - ENT Exam ENT Exam: Mucous Membranes Moist - Neck Exam Neck Exam: Normal Inspection - Respiratory Exam Respiratory Exam: Decreased Breath Sounds - Cardiovascular Exam Cardiovascular Exam: REGULAR RHYTHM - GI/Abdominal Exam GI & Abdominal Exam: Soft Assessment and Plan (1) Acute respiratory failure with hypercapnia Assessment & Plan: BiPAP at night or as needed Nebulizer treatment To prednisone Okay to DC Status: Acute (2) FESTUS (obstructive sleep apnea) Status: Chronic (3) COPD (chronic obstructive pulmonary disease) Status: Acute
[2018-05-08 20:39] LABS: BASO % 0.2 % (0.0-2.0); HEMOGLOBIN 10.5 g/dL (11.0-16.0); LYMPH # 1.5 K/uL (1.0-4.3); LYMPH % 12.9 % (20.0-40.0); MEAN CELL VOLUME 87.8 fL (81.0-99.0); MEAN CORPUSCULAR HEMOGLOBIN 27.5 pg (27.0-31.0); MEAN CORPUSCULAR HGB CONC 31.3 g/dL (33.0-37.0); MEAN PLATELET VOLUME 8.5 fL (7.2-11.7); MONO # 0.8 K/uL (0.0-0.8); MONO % 7.5 % (0.0-10.0); NEUT # 8.9 K/uL (1.8-7.0); NEUT % 79.4 % (50.0-75.0); NRBC % 0.1 % (0.0-2.0); RBC 3.81 Mil/uL (3.80-5.20); RED CELL DISTRIBUTION WIDTH 15.8 % (11.5-14.5); WHITE BLOOD COUNT 11.2 K/uL (4.8-10.8)
[2018-05-08 20:56] LABS: ALB/GLOB RATIO 1.2 (1.0-2.1); ALT/SGPT 11 U/L (9-52); AST/SGOT 18 U/L (14-36); BLOOD UREA NITROGEN 25 mg/dL (7-17); CALCIUM 7.8 mg/dl (8.6-10.4); GFR NON-AFRICAN AMERICAN > 60
[2018-05-08] MEDS: Insulin Detemir 100 units/ml Vial (Levemir) SC SCH (21:59)
[2018-05-08] MEDS: Rosuvastatin Calcium 2.5 mg Tab PO SCH (21:59)
[2018-05-09] MEDS: Albuterol-Ipratrop 3 mg / 0.5 (3 ml) UD INH SCH ×4 (00:30→11:33)
[2018-05-09] MEDS: Levothyroxine 150 MCG TAB PO SCH (06:54)
[2018-05-09] MEDS: (Novolin R) Insulin Human Regular 100 units/ml vial SC SCH ×2 (07:09→13:12)
[2018-05-09] MEDS ORDERED: MethylPREDNISolone 40 mg Vial IV SCH (08:04)
[2018-05-09] MEDS: Azithromycin 500 MG in Sodium Chloride 0.9% 250 ML IVPB SCH (10:14)
[2018-05-09] MEDS: Vitamins A & D Oint UD Foilpak TOP SCH (10:14)
--- NOTE | 2018-05-09 12:17 | CP.PCM.PN ---
Subjective - Date & Time of Evaluation Date of Evaluation: 05/09/18 Time of Evaluation: 09:00 - Subjective Subjective: clinically same Objective - Vital Signs/Intake and Output Vital Signs (last 24 hours): Temp Pulse Resp BP Pulse Ox 97.5 F L 77 20 113/70 100 05/09/18 08:00 05/09/18 10:12 05/09/18 08:00 05/09/18 10:12 05/09/18 08:00 - Medications Medications: Current Medications Acetaminophen (Tylenol 325mg Tab) 650 mg PO Q6 PRN PRN Reason: Pain, moderate (4-7) Albuterol/Ipratropium (Duoneb 3 Mg/0.5 Mg (3 Ml) Ud) 3 ml INH RQ4 [facility] Last Admin: 05/09/18 11:33 Dose: 3 ml Amlodipine Besylate (Norvasc) 10 mg PO DAILY [facility] Last Admin: 05/09/18 10:15 Dose: 10 mg Carbidopa/Levodopa (Sinemet) 2 tab PO ACTID [facility] Last Admin: 05/09/18 06:52 Dose: 2 tab Enoxaparin Sodium (Lovenox) 30 mg SC DAILY [facility] Last Admin: 05/06/18 10:15 Dose: 30 mg Famotidine (Pepcid) 20 mg IVP DAILY [facility] Last Admin: 05/09/18 10:14 Dose: 20 mg Gabapentin (Neurontin) 300 mg PO BID [facility] Last Admin: 05/09/18 10:14 Dose: 300 mg Azithromycin 500 mg/ Sodium (Chloride) 250 mls @ 250 mls/hr IVPB DAILY [facility] PRN Reason: Protocol Last Admin: 05/09/18 10:14 Dose: 250 mls/hr Aztreonam 2 gm/ Sodium (Chloride) 100 mls @ 200 mls/hr IVPB Q8H [facility] PRN Reason: Protocol Last Admin: 05/03/18 15:00 Dose: Not Given Insulin Detemir (Levemir) 40 unit SC HS [facility] Last Admin: 05/08/18 21:59 Dose: 40 u Insulin Human Regular (Novolin R) 0 unit SC ACHS [facility] PRN Reason: Protocol Last Admin: 05/09/18 07:09 Dose: Not Given Levothyroxine Sodium (Synthroid) 150 mcg PO DAILY@0630 [facility] Last Admin: 05/09/18 06:54 Dose: 150 mcg Methylprednisolone (Solu-Medrol) 20 mg IV DAILY [facility] Last Admin: 05/09/18 10:14 Dose: 20 mg Montelukast Sodium (Singulair) 10 mg PO HS [facility] Last Admin: 05/08/18 21:59 Dose: 10 mg Rosuvastatin Calcium (Crestor) 2.5 mg PO HS [facility] Last Admin: 05/08/18 21:59 Dose: 2.5 mg Vitamin A (Vitamin A & D Oint Ud Foilpak) 1 ea TOP BID [facility] Last Admin: 05/09/18 10:14 Dose: 1 ea - Labs Labs: 05/08/18 20:36 05/08/18 20:36 PT 10.1 SECONDS (9.7-12.2) 05/02/18 15:25 INR 0.9 05/02/18 15:25 APTT 36 SECONDS (21-34) H 05/02/18 15:25
--- NOTE | 2018-05-09 12:56 | CP.PCM.PN ---
Subjective - Date & Time of Evaluation Date of Evaluation: 05/09/18 Time of Evaluation: 12:56 - Subjective Subjective: PATIENT SEEN AND EXAMINED AT THE BEDSIDE Objective - Vital Signs/Intake and Output Vital Signs (last 24 hours): Temp Pulse Resp BP Pulse Ox 97.5 F L 77 20 113/70 100 05/09/18 08:00 05/09/18 10:12 05/09/18 08:00 05/09/18 10:12 05/09/18 08:00 - Medications Medications: Current Medications Acetaminophen (Tylenol 325mg Tab) 650 mg PO Q6 PRN PRN Reason: Pain, moderate (4-7) Albuterol/Ipratropium (Duoneb 3 Mg/0.5 Mg (3 Ml) Ud) 3 ml INH RQ4 [facility] Last Admin: 05/09/18 11:33 Dose: 3 ml Amlodipine Besylate (Norvasc) 10 mg PO DAILY [facility] Last Admin: 05/09/18 10:15 Dose: 10 mg Carbidopa/Levodopa (Sinemet) 2 tab PO ACTID [facility] Last Admin: 05/09/18 06:52 Dose: 2 tab Enoxaparin Sodium (Lovenox) 30 mg SC DAILY [facility] Last Admin: 05/06/18 10:15 Dose: 30 mg Famotidine (Pepcid) 20 mg IVP DAILY [facility] Last Admin: 05/09/18 10:14 Dose: 20 mg Gabapentin (Neurontin) 300 mg PO BID [facility] Last Admin: 05/09/18 10:14 Dose: 300 mg Azithromycin 500 mg/ Sodium (Chloride) 250 mls @ 250 mls/hr IVPB DAILY [facility] PRN Reason: Protocol Last Admin: 05/09/18 10:14 Dose: 250 mls/hr Aztreonam 2 gm/ Sodium (Chloride) 100 mls @ 200 mls/hr IVPB Q8H [facility] PRN Reason: Protocol Last Admin: 05/03/18 15:00 Dose: Not Given Insulin Detemir (Levemir) 40 unit SC HS [facility] Last Admin: 05/08/18 21:59 Dose: 40 u Insulin Human Regular (Novolin R) 0 unit SC ACHS [facility] PRN Reason: Protocol Last Admin: 05/09/18 07:09 Dose: Not Given Levothyroxine Sodium (Synthroid) 150 mcg PO DAILY@0630 [facility] Last Admin: 05/09/18 06:54 Dose: 150 mcg Methylprednisolone (Solu-Medrol) 20 mg IV DAILY [facility] Last Admin: 05/09/18 10:14 Dose: 20 mg Montelukast Sodium (Singulair) 10 mg PO HS [facility] Last Admin: 05/08/18 21:59 Dose: 10 mg Rosuvastatin Calcium (Crestor) 2.5 mg PO HS [facility] Last Admin: 05/08/18 21:59 Dose: 2.5 mg Vitamin A (Vitamin A & D Oint Ud Foilpak) 1 ea TOP BID [facility] Last Admin: 05/09/18 10:14 Dose: 1 ea - Labs Labs: 05/08/18 20:36 05/08/18 20:36 PT 10.1 SECONDS (9.7-12.2) 05/02/18 15:25 INR 0.9 05/02/18 15:25 APTT 36 SECONDS (21-34) H 05/02/18 15:25 Assessment and Plan - Assessment and Plan (Free Text) Assessment: S/P RIGHT SIDE MEDIPORT / DRESSING DRY AND INTACT PLACE UNDER THE SERVICE OF DR Lor NARVAEZ AT [facility] ---CALL FOR ADMITTING ORDER FOLLOW UP WITH DR AGUDELO AND DR MOTTA ----CALL FOR APPOITNEMNT CONTINUE HOME MEDICATION ORDER NEW PRESCRIPTION GIVEN AMLODIPINE 10 MG PO DAILY ACTIV[facility] TOLERATED AND FACILITY PROTOCOL RIGHT SIDE PORTACATH PER DR AGUDELO IT IS OK TO USE CALL DR Lor NARVAEZ FOR FURTHER ORDER
[2018-05-09 14:55] VITALS: BP 136/74; PULSE 76; RESP 21; TEMP 98.3; O2SAT 97
--- NOTE | 2018-05-09 16:16 | PN ---
DATE: 05/09/2018 SUBJECTIVE: The patient is seen, feeling much better and will be going back to [facility] today. The patient was made aware that she cannot take her Lexapro as the patient is on azithromycin. The patient was instructed that she can take back her Lexapro once she is off azithromycin to avoid cardiac complications. The patient continues to have a voracious appetite despite her respiratory problems. PHYSICAL EXAMINATION: VITAL SIGNS: Temperature is 97.5, pulse is 77, blood pressure is 113/70, respirations 20, and oxygen saturations 100%. REVIEW OF SYSTEMS: GENERAL: The patient is alert and oriented x 3, states she will be going home today back to the sn[facility]. SKIN: No diaphoresis. HEENT: No headache. No dizziness. NECK: Supple. RESPIRATORY: Has chronic dyspnea. CARDIOVASCULAR: No chest pain. GASTROINTESTINAL: States she has very good appetite. No nausea. No vomiting. EXTREMITIES: The patient is not ambulatory. She has been bed-bound for years. The tremors of her hands have improved since she is back on Sinemet. the patient has Parkinson's. NEUROLOGIC: Alert and oriented x3. GENITOURINARY: No urinary problems. MENTAL STATUS: A morbidly obese female, who looks at her age, anxious at times. Affect is reactive. Speech is spontaneous. Thought process coherent. Thought content, the patient will be going back to the [facility] for long-term care. No psychosis. No suicidal or homicidal ideation. Attention and memory seem to be fair. Insight and judgement are fair. Impulse control is fair. IMPRESSION: Major depression, anxiety,and mood disorder. PLAN AND RECOMMENDATIONS: The patient is seen, meds reviewed. Psych gibbs, she is stable to go back to the snf. I have told the nurse and the patient, the patient may resume Lexapro, escitalopram for depression once she is off azithromycin to avoid cardiac complications and side effects. Continue treatment plan as outlined. Jovani Wilson MD [facility]ITAL[facility]av[facility]
--- NOTE | 2018-05-16 22:56 | PQF ---
PROVIDER RESPONSE TEXT: Acute on chroci chf plus aucte resp fialure /intubated iwth acute exacerbation of copd and pneumonia REVIEWER QUERY TEXT: Rule Out Sepsis Clarification Rule out Sepsis is documented in the Medical Record. Please clarify whether: -- Patient has sepsis - Please document confirmed, suspected or probable causative organism - Please document confirmed, suspected or probable localized infection - Please clarify if sepsis is related to a device - Please clarify if sepsis was present on admission -- Sepsis was ruled out (include corresponding diagnosis for patient?s clinical picture and treatment ) -- Patient had sepsis which is resolved -- Other, please specify The patient's Clinical Indicators include: Patient admited with SOB, on BIPAP , with lethargy,. 05/04 Progress note ( Critical Care) - ID - Sepsis from Unknown source, continue Aztreonam and Azithromycin X 5 day. 05/04 Progress Note Clarence Rivera MD - Sepsis from Unknown source, continue Azteronam and Azithromycin for 5 days. Query created by: Roxana Fernando on 05/15/2018 1:57 PM Electronically signed by: Rita RAMIREZ 05/16/2018 10:52 PM
== END 2018-05-09 15:50 | DRG 193 ==
LOC: C.ER 15:04 → C.9I 16:38 → C.5S 05-05 19:56
PROVIDERS: ADMIT Internal Medicine Nephrology; ATTEND Internal Medicine Nephrology
PROC: 5A09557 Assistance with Respiratory Ventilation, Greater than 96 Consecutive Hours, Continuous Positive Airway Pressure (ICD-10-PCS; principal; 2018-05-02)
PROC: 0JH63WZ Insertion of Totally Implantable Vascular Access Device into Chest Subcutaneous Tissue and Fascia, Percutaneous Approach (ICD-10-PCS; 2018-05-07)
PROC: 05HM33Z Insertion of Infusion Device into Right Internal Jugular Vein, Percutaneous Approach (ICD-10-PCS; 2018-05-07)
DX: J18.9 Pneumonia, unspecified organism (principal); J96.01 Acute respiratory failure with hypoxia; J96.02 Acute respiratory failure with hypercapnia; E66.2 Morbid (severe) obesity with alveolar hypoventilation; J44.1 Chronic obstructive pulmonary disease with (acute) exacerbation; J44.0 Chronic obstructive pulmonary disease with (acute) lower respiratory infection; E03.9 Hypothyroidism, unspecified; E11.9 Type 2 diabetes mellitus without complications; F31.9 Bipolar disorder, unspecified; G20 Parkinson's disease; I10 Essential (primary) hypertension; Z96.651 Presence of right artificial knee joint; F02.80 Dementia in other diseases classified elsewhere, unspecified severity, without behavioral disturbance, psychotic disturbance, mood disturbance, and anxiety; K21.9 Gastro-esophageal reflux disease without esophagitis; D64.9 Anemia, unspecified; F41.9 Anxiety disorder, unspecified; Z87.891 Personal history of nicotine dependence; Z79.4 Long term (current) use of insulin

== ENCOUNTER 2018-07-07 09:39 | Inpatient (IN) | payer MEDICARE, MEDICAID ==
[2018-07-07 09:40] VITALS: BMI 55.0
[2018-07-07] MEDS ORDERED: Albuterol-Ipratrop 3 mg / 0.5 (3 ml) UD INH STA ×3 (09:46→09:47)
[2018-07-07] MEDS ORDERED: MethylPREDNISolone 40 mg Vial IVP STA (09:46)
--- NOTE | 2018-07-07 09:59 | C.PDOC ---
History Of Present Illness 73 y/o female with history of COPD [facility]. Patient has multiple ED visits for same symptoms. At ED patient arousable but unable to give further history. HPI limited secondary to patient's clinical condition. Time Seen by Provider: 07/07/18 09:42 Chief Complaint (Nursing): Respiratory Distress History Per: EMS History/Exam Limitations: clinical condition Onset/Duration Of Symptoms: Days Current Symptoms Are (Timing): Still Present Initiating Event: Upper Respiratory Illness Past Medical History Reviewed: Historical Data, Nursing Documentation, Vital Signs Vital Signs: Last Vital Signs Temp 98.7 F 07/07/18 09:49 Pulse 104 H 07/07/18 09:49 Resp 16 07/07/18 09:49 BP 146/65 07/07/18 09:49 Pulse Ox 100 07/07/18 09:49 - Medical History PMH: Anemia, Anxiety, Arthritis (B knees), Bipolar Disorder, COPD (ex-smoker), Dementia, Depression, HTN, Hypercholesterolemia, Hypothyroidism, Parkinson's Disease, Sleep Apnea (on Bipap) Surgical History: No Surg Hx - [facility] Procedures ASSISTANCE WITH RESPIRATORY VENTILATION, 24-96 HRS, CPAP (06/13/18) ASSISTANCE WITH RESPIRATORY VENTILATION, <24 HRS, CPAP (06/13/18) ASSISTANCE WITH RESPIRATORY VENTILATION, >96 HRS, CPAP (05/02/18) CONTINUOUS INVASIVE MECHANICAL VENTILATION <96 CONSEC HRS (12/29/12) CONTINUOUS INVASIVE MECHANICAL VENTILATION =/>96 CONSEC HRS (02/28/13) DX ULTRASOUND-HEART (08/29/13) EXCISION OF RIGHT BREAST, OPEN APPROACH, DIAGNOSTIC (09/18/15) INCIS W REM OF FORIEGN BODY OR DEV FROM SKIN & SUBCUT TISSUE (08/29/13) INSERT ENDOTRACHEAL TUBE (02/28/13) INSERT INDWELLING CATH (12/26/12) INSERT INFUSION DEV IN R INT JUGULAR VEIN, PERC (05/02/18) INSERT VAD RESERVOIR IN CHEST SUBCU/FASCIA, PERC (05/02/18) INSERTION OF ENDOTRACHEAL AIRWAY INTO TRACHEA, ENDO (06/13/18) INSERTION OF ENDOTRACHEAL AIRWAY INTO TRACHEA, VIA OPENING (06/20/18) INSERTION OF INFUSION DEV INTO SUP VENA CAVA, PERC APPROACH (10/21/16) INSERTION OF INFUSION DEVICE INTO R BRACH ART, PERC APPROACH (12/11/17) NON-INVASIVE MECHANICAL VENTILATION (08/29/13) RESPIRATORY VENTILATION, 24-96 CONSECUTIVE HOURS (06/13/18) RESPIRATORY VENTILATION, GREATER THAN 96 CONSECUTIVE HOURS (06/20/18) Family History: States: No Known Family Hx - Social History Hx Tobacco Use: (Unknown) Hx Alcohol Use: No Hx Substance Use: No - Immunization History Hx Tetanus Toxoid Vaccination: No Hx Influenza Vaccination: No Hx Pneumococcal Vaccination: No Review Of Systems Review Of Systems: ROS cannot be obtained secondary to pt's inabilty to answer questions. Physical Exam - Physical Exam Appears: Non-toxic, No Acute Distress Skin: Warm, Dry, No Rash Head: Atraumatic, Normacephalic Eye(s): bilateral: Normal Inspection Oral Mucosa: Moist Cardiovascular: Rhythm Regular Respiratory: No Rales, Rhonchi (diffuse), No Wheezing Gastrointestinal/Abdominal: Soft, No Tenderness, No Guarding, No Rebound Extremity: Normal ROM, No Pedal Edema, Capillary Refill (<2 seconds) ED Course And Treatment - Laboratory Results Result Diagrams: 07/07/18 10:20 07/07/18 10:20 ECG: Interpreted By Me, Viewed By Me ECG Rhythm: Sinus Tachycardia Rate From EC (BPM) O2 Sat by Pulse Oximetry: 100 (RA) Pulse Ox Interpretation: Normal Critical Care Time - Critical Care Note Total Time (in mins): 60 Documented critical care: time excludes all time spent performing seperately billable procedures. Medical Decision Making Medical Decision Making: copd/co2 retnetion numerous visits for similar inital blood gas elevated co2. bipap iniated. co2 still increasing. bipap setting increased. accepted icu. Disposition - Disposition Disposition: HOSPITALIZED Disposition Time: 14:00 Condition: CRITICAL - Clinical Impression Clinical Impression: COPD (chronic obstructive pulmonary disease), Acute respiratory failure with hypercapnia - Scribe Statement The provider has reviewed the documentation as recorded by the Candelaria Miner All medical record entries made by the Guerreroibjohn were at my direction and personally dictated by me. I have reviewed the chart and agree that the record accurately reflects my personal performance of the history, physical exam, medical decision making, and the department course for this patient. I have also personally directed, reviewed, and agree with the discharge instructions and disposition.
[2018-07-07 10:16] LABS: ABG ALLEN TEST POS; ARTERIAL BLOOD GAS HCO3 34.6 mmol/L (21-28); ARTERIAL BLOOD GAS O2 SAT 92.2 % (95-98); ARTERIAL BLOOD GAS PCO2 76 mm/Hg (35-45); ARTERIAL BLOOD GAS PH 7.35 (7.35-7.45); ARTERIAL BLOOD GAS PO2 54 mm/Hg (80-100); ARTERIAL BLOOD GAS TCO2 44.3 mmol/L (22-28)
[2018-07-07 10:26] LABS: BASO # 0.1 K/uL (0.0-0.2); EOS # 0.2 K/uL (0.0-0.7); HEMOGLOBIN 11.6 g/dL (11.0-16.0); LYMPH # 1.7 K/uL (1.0-4.3); LYMPH % 15.4 % (20.0-40.0); MEAN CELL VOLUME 87.9 fL (81.0-99.0); MEAN CORPUSCULAR HGB CONC 31.9 g/dL (33.0-37.0); MEAN PLATELET VOLUME 8.5 fL (7.2-11.7); MONO # 0.7 K/uL (0.0-0.8); MONO % 5.8 % (0.0-10.0); NEUT # 8.6 K/uL (1.8-7.0); NEUT % 75.8 % (50.0-75.0); NRBC % 0.1 % (0.0-2.0); RBC 4.14 Mil/uL (3.80-5.20); RED CELL DISTRIBUTION WIDTH 15.6 % (11.5-14.5); WHITE BLOOD COUNT 11.3 K/uL (4.8-10.8)
[2018-07-07] MEDS ORDERED: Albuterol-Ipratrop 3 mg / 0.5 (3 ml) UD ONE (10:27)
[2018-07-07 10:36] LABS: PROTHROMBIN TIME 10.9 SECONDS (9.7-12.2)
[2018-07-07 10:59] LABS: B-TYPE NATRIURETIC PEPTIDE 427 pg/mL (0-900)
[2018-07-07 11:33] LABS: ALB/GLOB RATIO 1.2 (1.0-2.1); ALBUMIN 3.6 g/dL (3.5-5.0); ALT/SGPT 21 U/L (9-52); AST/SGOT 16 U/L (14-36); BLOOD UREA NITROGEN 21 mg/dL (7-17); GFR NON-AFRICAN AMERICAN > 60
[2018-07-07] MEDS ORDERED: Potassium Chloride 20 mEq ER Tab PO STA (11:34)
[2018-07-07 12:07] LABS: ABG ALLEN TEST POS; ARTERIAL BLOOD GAS HCO3 36.2 mmol/L (21-28); ARTERIAL BLOOD GAS HEMOGLOBIN 11.1 g/dL (11.7-17.4); ARTERIAL BLOOD GAS O2 SAT 97.4 % (95-98); ARTERIAL BLOOD GAS PCO2 78 mm/Hg (35-45); ARTERIAL BLOOD GAS PH 7.35 (7.35-7.45); ARTERIAL BLOOD GAS PO2 81 mm/Hg (80-100); ARTERIAL BLOOD GAS TCO2 45.5 mmol/L (22-28)
--- NOTE | 2018-07-07 13:45 | RAD ---
Date of service: 07/07/2018 HISTORY: Shortness of breath, COPD. COMPARISON: 05/07/2018 and 06/16/2018. FINDINGS: LUNGS: No active pulmonary disease. PLEURA: No significant pleural effusion identified, no pneumothorax apparent. CARDIOVASCULAR: No atherosclerotic calcification present Venous access catheter in stable, satisfactory position. OSSEOUS STRUCTURES: No significant abnormalities. VISUALIZED UPPER ABDOMEN: Normal. OTHER FINDINGS: None. IMPRESSION: No active disease. No significant interval change compared to the prior examination(s).
--- NOTE | 2018-07-07 14:57 | CP.PCM.CON ---
<Boaz Juan - Last Filed: 07/07/18 18:51> History of Present Illness - History of Present Illness History of Present Illness: PGY-1 ICU Consult note for Dr. Cobb Patient is a 73 year old female with a PMHx of HTN, COPD, Anemia, Anxiety, Arthritis, Bipolar disorder, Dementia, Depression, Parkinson's disease, Hyperthyroidism, and Sleep Apnea who was brought to ED in from long term with worsening shortness of breath. Patient has been admitted multiple times for recurrent COPD exacerbation. At ED patient was arousable but unable to give further history. HPI limited secondary to patient's clinical condition. Patient was put on BiPAP and transferred to ICU for hypercapnic respiratory distress. PMHx: HTN, COPD, Anemia, Anxiety, Arthritis, Bipolar disorder, Dementia, Depression, Parkinson's disease, Hyperthyroidism and Sleep Apnea Surgical Hx: Hysterectomy, Right knee fusion, Oophorectomy (unknown location), Uterine/ovarian cyst removal, C- sections (unknown). FMHx: Mother - HTN, breast cysts. Meds: Prednisone, Norvasc, Metoprolol, Lisinopril, Lasix, Crestor, Mysoline, Duoneb, Singulair, Carbi/levodopa, Azelastine, Aspirin Allergies: Cephalosporins, Penicillins, Clonazepam, Mustard Social History: Lives in [facility]. Former smoker of 5 cigarettes per day for 40 years, quit 10 years ago. Denies alcohol and illicit drug use. Review of Systems - Review of Systems All systems: reviewed and no additional remarkable complaints except Past Patient History - Infectious Disease Hx of Infectious Diseases: None - Tetanus Immunizations Tetanus Immunization: Unknown - Past Medical History & Family History Past Medical History?: Yes - Past Social History Smoking Status: Unknown If Ever Smoked - CARDIAC Hx Hypercholesterolemia: Yes Hx Hypertension: Yes - PULMONARY Hx Chronic Obstructive Pulmonary Disease (COPD): Yes (ex-smoker) Hx Sleep Apnea: Yes (on Bipap) - NEUROLOGICAL Hx Dementia: Yes Hx Parkinson's Disease: Yes - HEENT Hx HEENT Problems: No - RENAL Hx Chronic Kidney Disease: No - ENDOCRINE/METABOLIC Hx Hypothyroidism: Yes - HEMATOLOGICAL/ONCOLOGICAL Hx Anemia: Yes - INTEGUMENTARY Hx Dermatological Problems: No - MUSCULOSKELETAL/RHEUMATOLOGICAL Hx Arthritis: Yes (B knees) - GASTROINTESTINAL Hx Gastrointestinal Disorders: Yes Hx Constipation: Yes Hx Gastroesophageal Reflux: Yes - GENITOURINARY/GYNECOLOGICAL Hx Genitourinary Disorders: Yes Hx Incontinence: Yes Hx Urinary Tract Infection: Yes - PSYCHIATRIC Hx Anxiety: Yes Hx Bipolar Disorder: Yes Hx Depression: Yes Hx Substance Use: No - SURGICAL HISTORY Hx Surgeries: Yes Hx Hysterectomy: Yes Hx Orthopedic Surgery: Yes Other/Comment: right knee replacement 2014; right knee prosthesis removal s/p infection 2014 - ANESTHESIA Hx Anesthesia: Yes Hx Anesthesia Reactions: No Hx Malignant Hyperthermia: No Meds Allergies/Adverse Reactions: Allergies Allergy/AdvReac Type Severity Reaction Status Date / Time Cephalosporins Allergy Intermediate RASH Verified 07/07/18 09:53 Penicillins Allergy Intermediate RASH Verified 07/07/18 09:53 clonazepam [From Klonopin] Allergy Verified 07/07/18 09:53 mustard Allergy Intermediate RASH Uncoded 07/07/18 09:53 - Medications Medications: Current Medications Albuterol/Ipratropium (Duoneb 3 Mg/0.5 Mg (3 Ml) Ud) 3 ml INH RQ4 [facility] Methylprednisolone (Solu-Medrol) 40 mg IVP Q12 [facility] Physical Exam - Constitutional Appears: No Acute Distress - Head Exam Head Exam: ATRAUMATIC, NORMOCEPHALIC - Eye Exam Eye Exam: EOMI, Normal appearance - ENT Exam ENT Exam: Mucous Membranes Moist - Respiratory Exam Respiratory Exam: Rhonchi. absent: Accessory Muscle Use, Rales, Wheezes, Respiratory Distress - Cardiovascular Exam Cardiovascular Exam: REGULAR RHYTHM, +S1, +S2. absent: Gallop, Rubs, Systolic Murmur - GI/Abdominal Exam GI & Abdominal Exam: Normal Bowel Sounds, Soft. absent: Distended, Tenderness - Extremities Exam Extremities exam: Positive for: normal inspection. Negative for: pedal edema - Neurological Exam Neurological exam: Alert - Psychiatric Exam Psychiatric exam: Normal Affect - Skin Skin Exam: Dry, Intact, Normal Color, Warm Results - Vital Signs Recent Vital Signs: Last Vital Signs Temp 98.7 F 07/07/18 09:49 Pulse 95 H 07/07/18 13:57 Resp 12 07/07/18 13:57 BP 133/79 07/07/18 13:57 Pulse Ox 100 07/07/18 14:01 - Labs Result Diagrams: 07/07/18 10:20 07/07/18 10:20 Labs: Laboratory Results - last 24 hr 07/07/18 07/07/1818 10:10 10:20 10:20 WBC 11.3 H RBC 4.14 Hgb 11.6 Hct 36.3 MCV 87.9 MCH 28.0 MCHC 31.9 L RDW 15.6 H Plt Count 178 D MPV 8.5 Neut % (Auto) 75.8 H Lymph % (Auto) 15.4 L [place] % (Auto) 5.8 Eos % (Auto) 2.0 Baso % (Auto) 1.0 Neut # (Auto) 8.6 H Lymph # (Auto) 1.7 [place] # (Auto) 0.7 Eos # (Auto) 0.2 Baso # (Auto) 0.1 PT 10.9 INR 1.0 APTT 34 Puncture Site Rba pCO2 76 H* pO2 54 L HCO3 34.6 H ABG pH 7.35 ABG Total CO2 44.3 H ABG O2 Saturation 92.2 L ABG Base Excess 12.8 H ABG Hemoglobin ABG Carboxyhemoglobin POC ABG HHb (Measured) ABG Methemoglobin Donta Test Pos ABG Potassium 2.9 L A-a O2 Difference 51.0 Respiratory Index 0.9 Hgb O2 Saturation Sodium 139.0 Chloride 98.0 Glucose 212 H Lactate 0.6 L FiO2 28.0 Inspiratory BiPAP 16 Expiratory BiPAP 8 Crit Value Called To Dr sol Crit Value Called By [facility] Crit Value Read Back Y Blood Gas Notified Time 1015 Potassium Carbon Dioxide Anion Gap BUN Creatinine Est GFR ( Amer) Est GFR (Non-Af Amer) Random Glucose Calcium Total Bilirubin AST ALT Alkaline Phosphatase Troponin I NT-Pro-B Natriuret Pep Total Protein Albumin Globulin Albumin/Globulin Ratio Arterial Blood Potassium 2.9 L 07/07/18 07/07/18 10:20 12:01 WBC RBC Hgb Hct MCV MCH MCHC RDW Plt Count MPV Neut % (Auto) Lymph % (Auto) [place] % (Auto) Eos % (Auto) Baso % (Auto) Neut # (Auto) Lymph # (Auto) [place] # (Auto) Eos # (Auto) Baso # (Auto) PT INR APTT Puncture Site Rr pCO2 78 H* pO2 81 HCO3 36.2 H ABG pH 7.35 ABG Total CO2 45.5 H ABG O2 Saturation 97.4 ABG Base Excess 14.5 H ABG Hemoglobin 11.1 L ABG Carboxyhemoglobin 2.5 H POC ABG HHb (Measured) 2.5 ABG Methemoglobin 0.8 Donta Test Pos ABG Potassium A-a O2 Difference 21.0 Respiratory Index 0.3 Hgb O2 Saturation 94.1 L Sodium 138 Chloride 89 L Glucose Lactate FiO2 28.0 Inspiratory BiPAP 18 Expiratory BiPAP 7 Crit Value Called To Vivianrn Crit Value Called By Marc castillo rrt Crit Value Read Back Y Blood Gas Notified Time 1207 Potassium 3.2 L Carbon Dioxide 42 H* D Anion Gap 10 BUN 21 H Creatinine 0.7 Est GFR ( Amer) > 60 Est GFR (Non-Af Amer) > 60 Random Glucose 212 H Calcium 9.0 Total Bilirubin 0.5 AST 16 ALT 21 Alkaline Phosphatase 91 Troponin I 0.0250 NT-Pro-B Natriuret Pep 427 Total Protein 6.6 Albumin 3.6 Globulin 3.0 Albumin/Globulin Ratio 1.2 Arterial Blood Potassium Assessment & Plan - Assessment and Plan (Free Text) Assessment: Patient is a 73 year old female who was brought to ED in from long term with worsening shortness of breath. Patient was put on BiPAP and transferred to ICU for hypercapnic respiratory distress. Plan: Neuro: - Patient seems lethargic but is responsive to stimuli Pulm: - CXR: no active disease - On BIPAP: IPAP 20, EPAP 10, FIO2 28, Rate 12 - ABG: PCO2 78, PO2 81, pH 7.35 - Duonebs Q4H [facility] - Solumedrol 40mg IV Q12H Cardiovascular: - Troponin: 0.025 - ProBNP: 427 Heme: - No acute issues Renal: - BUN/Cr: 21/0.7 - Potassium: 3.2 - In ED was given potassium chloride 10mEq IVPB and potassium chloride 40mEq PO - UA: f/u Endo: - No acute issues GI: - No acute issues ID: - WBC: 11.3 - No antibiotics at this time Prophylaxis: - SCD's Case discussed with Dr. Reza Juan, PGY-1 - Date & Time Date: 07/07/18 Time: 14:59 <Edwardo Cobb - Last Filed: 07/08/18 12:13> Meds - Medications Medications: Current Medications Albuterol/Ipratropium (Duoneb 3 Mg/0.5 Mg (3 Ml) Ud) 3 ml INH RQ4 [facility] Last Admin: 07/08/18 11:25 Dose: 3 ml Albuterol/Ipratropium (Duoneb 3 Mg/0.5 Mg (3 Ml) Ud) 3 ml INH Q6H [facility] Last Admin: 07/08/18 02:08 Dose: Not Given Amlodipine Besylate (Norvasc) 10 mg PO DAILY [facility] Last Admin: 07/08/18 10:43 Dose: Not Given Aspirin (Aspirin Chewable) 81 mg PO DAILY [facility] Last Admin: 07/08/18 09:56 Dose: 81 mg Carbidopa/Levodopa (Sinemet) 1 tab PO TID [facility] Last Admin: 07/08/18 09:56 Dose: 1 tab Docusate Sodium (Colace) 100 mg PO BID [facility] Last Admin: 07/08/18 09:58 Dose: 100 mg Escitalopram Oxalate (Lexapro) 10 mg PO DAILY [facility] Last Admin: 07/08/18 09:59 Dose: 10 mg Famotidine (Pepcid) 20 mg PO DAILY [facility] Last Admin: 07/08/18 10:00 Dose: 20 mg Furosemide (Lasix) 40 mg PO DAILY [facility] Last Admin: 07/08/18 10:03 Dose: 40 mg Gabapentin (Neurontin) 300 mg PO BID [facility] Last Admin: 07/08/18 09:59 Dose: 300 mg Moxifloxacin HCl (Avelox Iv 400mg/250ml Ns) 400 mg in 250 mls @ 167 mls/hr IVPB Q24H [facility]; Protocol Last Admin: 07/07/18 18:09 Dose: 167 mls/hr Insulin Detemir (Levemir) 50 unit SC HS [facility] Last Admin: 07/07/18 22:05 Dose: 50 u Insulin Human Regular (Novolin R) 0 unit SC ACHS [facility]; Protocol Last Admin: 07/08/18 11:34 Dose: 2 u Levothyroxine Sodium (Synthroid) 150 mcg PO 0630 [facility] Last Admin: 07/08/18 05:51 Dose: 150 mcg Lisinopril (Zestril) 2.5 mg PO DAILY [facility] Last Admin: 07/08/18 09:59 Dose: 2.5 mg Magnesium Hydroxide (Milk Of Magnesia) 30 ml PO PRN PRN PRN Reason: Heartburn Methylprednisolone (Solu-Medrol) 40 mg IVP Q12 [facility] Last Admin: 07/08/18 09:59 Dose: 40 mg Metoprolol Tartrate (Lopressor) 25 mg PO BID [facility] Last Admin: 07/08/18 10:04 Dose: Not Given Primidone (Mysoline) 100 mg PO HS [facility] Last Admin: 07/07/18 21:36 Dose: 100 mg Rosuvastatin Calcium (Crestor) 2.5 mg PO HS [facility] Last Admin: 07/07/18 21:36 Dose: 2.5 mg Results - Vital Signs Recent Vital Signs: Last Vital Signs Temp 97.8 F 07/08/18 08:00 Pulse 81 07/08/18 10:02 Resp 15 07/08/18 10:02 BP 96/38 L 07/08/18 10:04 Pulse Ox 95 07/08/18 10:02 - Labs Result Diagrams: 07/08/18 06:32 07/08/18 06:30 Labs: Laboratory Results - last 24 hr 07/07/18 07/07/18 07/07/18 16:02 16:04 21:22 WBC RBC Hgb Hct MCV MCH MCHC RDW Plt Count MPV Neut % (Auto) Lymph % (Auto) [place] % (Auto) Eos % (Auto) Baso % (Auto) Neut # (Auto) Lymph # (Auto) [place] # (Auto) Eos # (Auto) Baso # (Auto) Puncture Site Rra pCO2 69 H pO2 84 HCO3 36.2 H ABG pH 7.40 ABG Total CO2 44.8 H ABG O2 Saturation 97.8 ABG Base Excess 14.5 H Donta Test Pos A-a O2 Difference 29.0 Respiratory Index 0.3 FiO2 28 Inspiratory BiPAP 20 Expiratory BiPAP 10 Sodium Potassium Chloride Carbon Dioxide Anion Gap BUN Creatinine Est GFR ( Amer) Est GFR (Non-Af Amer) POC Glucose (mg/dL) 260 H 245 H Random Glucose Calcium Phosphorus Magnesium Total Bilirubin AST ALT Alkaline Phosphatase Total Protein Albumin Globulin Albumin/Globulin Ratio 07/08/18 07/08/18 06:30 06:32 WBC 7.5 RBC 3.92 Hgb 10.9 L Hct 34.5 MCV 88.1 MCH 27.9 MCHC 31.7 L RDW 15.5 H Plt Count 186 MPV 8.8 Neut % (Auto) 86.2 H Lymph % (Auto) 10.3 L [place] % (Auto) 3.3 Eos % (Auto) 0.0 Baso % (Auto) 0.2 Neut # (Auto) 6.4 Lymph # (Auto) 0.8 L [place] # (Auto) 0.2 Eos # (Auto) 0.0 Baso # (Auto) 0.0 Puncture Site pCO2 pO2 HCO3 ABG pH ABG Total CO2 ABG O2 Saturation ABG Base Excess Donta Test A-a O2 Difference Respiratory Index FiO2 Inspiratory BiPAP Expiratory BiPAP Sodium 137 Potassium 3.9 Chloride 91 L Carbon Dioxide 37 H Anion Gap 13 BUN 32 H Creatinine 0.8 Est GFR ( Amer) > 60 Est GFR (Non-Af Amer) > 60 POC Glucose (mg/dL) Random Glucose 258 H Calcium 8.8 Phosphorus 3.1 Magnesium 2.2 Total Bilirubin 0.4 AST 12 L D ALT 18 Alkaline Phosphatase 88 Total Protein 6.4 Albumin 3.5 Globulin 2.9 Albumin/Globulin Ratio 1.2 Attending/Attestation - Attestation I have personally seen and examined this patient.: Yes I have fully participated in the care of the patient.: Yes I have reviewed all pertinent clinical information: Yes Notes (Text): 07/08/18 12:12 73-year-old female with recurrent history of CO2 narcosis, and also recommend respirated failure. Admitted to the hospital with acute respirated failure, CO2 retention. Patient become more drowsy. More sleepy. Patient has an impending respirated failure, suggested that BiPAP. ICU monitoring. May need intubation.
[2018-07-07] MEDS: Albuterol-Ipratrop 3 mg / 0.5 (3 ml) UD INH SCH ×2 (16:25→20:13)
[2018-07-07] MEDS ORDERED: Magnesium Hydroxide Susp 30 ml UD PO PRN (16:57)
[2018-07-07] MEDS: Moxifloxacin IV 400mg/250ml NS 400 MG/250 ML BAG IVPB SCH (18:09)
--- NOTE | 2018-07-07 19:08 | CP.PCM.HP ---
Past Patient History - Infectious Disease Hx of Infectious Diseases: None - Tetanus Immunizations Tetanus Immunization: Unknown - Past Medical History & Family History Past Medical History?: Yes - Past Social History Smoking Status: Unknown If Ever Smoked - CARDIAC Hx Hypercholesterolemia: Yes Hx Hypertension: Yes - PULMONARY Hx Chronic Obstructive Pulmonary Disease (COPD): Yes (ex-smoker) Hx Sleep Apnea: Yes (on Bipap) - NEUROLOGICAL Hx Dementia: Yes Hx Parkinson's Disease: Yes - HEENT Hx HEENT Problems: No - RENAL Hx Chronic Kidney Disease: No - ENDOCRINE/METABOLIC Hx Hypothyroidism: Yes - HEMATOLOGICAL/ONCOLOGICAL Hx Anemia: Yes - INTEGUMENTARY Hx Dermatological Problems: No - MUSCULOSKELETAL/RHEUMATOLOGICAL Hx Arthritis: Yes (B knees) - GASTROINTESTINAL Hx Gastrointestinal Disorders: Yes Hx Constipation: Yes Hx Gastroesophageal Reflux: Yes - GENITOURINARY/GYNECOLOGICAL Hx Genitourinary Disorders: Yes Hx Incontinence: Yes Hx Urinary Tract Infection: Yes - PSYCHIATRIC Hx Anxiety: Yes Hx Bipolar Disorder: Yes Hx Depression: Yes Hx Substance Use: No - SURGICAL HISTORY Hx Surgeries: Yes Hx Hysterectomy: Yes Hx Orthopedic Surgery: Yes Other/Comment: right knee replacement 2014; right knee prosthesis removal s/p infection 2014 - ANESTHESIA Hx Anesthesia: Yes Hx Anesthesia Reactions: No Hx Malignant Hyperthermia: No Meds Allergies/Adverse Reactions: Allergies Allergy/AdvReac Type Severity Reaction Status Date / Time Cephalosporins Allergy Intermediate RASH Verified 07/07/18 09:53 Penicillins Allergy Intermediate RASH Verified 07/07/18 09:53 clonazepam [From Klonopin] Allergy Verified 07/07/18 09:53 mustard Allergy Intermediate RASH Uncoded 07/07/18 09:53 Physical Exam - Constitutional Appears: Well - Head Exam Head Exam: ATRAUMATIC, NORMAL INSPECTION, NORMOCEPHALIC - Eye Exam Eye Exam: EOMI, Normal appearance, PERRL Pupil Exam: NORMAL ACCOMODATION, PERRL - ENT Exam ENT Exam: Mucous Membranes Moist, Normal Exam - Neck Exam Neck exam: Positive for: Normal Inspection - Respiratory Exam Respiratory Exam: Decreased Breath Sounds - Cardiovascular Exam Cardiovascular Exam: REGULAR RHYTHM, +S1, +S2 - GI/Abdominal Exam GI & Abdominal Exam: Diminished Bowel Sounds, Soft - Rectal Exam Rectal Exam: Deferred Results - Vital Signs Recent Vital Signs: Last Vital Signs Temp 98.3 F 07/07/18 16:00 Pulse 90 07/07/18 18:00 Resp 28 H 07/07/18 18:00 BP 122/75 07/07/18 18:10 Pulse Ox 97 07/07/18 18:00 - Labs Result Diagrams: 07/07/18 10:20 07/07/18 10:20 Labs: Laboratory Results - last 24 hr 07/07/18 07/07/18 07/07/18 10:10 10:20 10:20 WBC 11.3 H RBC 4.14 Hgb 11.6 Hct 36.3 MCV 87.9 MCH 28.0 MCHC 31.9 L RDW 15.6 H Plt Count 178 D MPV 8.5 Neut % (Auto) 75.8 H Lymph % (Auto) 15.4 L [place] % (Auto) 5.8 Eos % (Auto) 2.0 Baso % (Auto) 1.0 Neut # (Auto) 8.6 H Lymph # (Auto) 1.7 [place] # (Auto) 0.7 Eos # (Auto) 0.2 Baso # (Auto) 0.1 PT 10.9 INR 1.0 APTT 34 Puncture Site Rba pCO2 76 H* pO2 54 L HCO3 34.6 H ABG pH 7.35 ABG Total CO2 44.3 H ABG O2 Saturation 92.2 L ABG Base Excess 12.8 H ABG Hemoglobin ABG Carboxyhemoglobin POC ABG HHb (Measured) ABG Methemoglobin [place]a Test Pos ABG Potassium 2.9 L A-a O2 Difference 51.0 Respiratory Index 0.9 Hgb O2 Saturation Sodium 139.0 Chloride 98.0 Glucose 212 H Lactate 0.6 L FiO2 28.0 Inspiratory BiPAP 16 Expiratory BiPAP 8 Crit Value Called To Dr sol Crit Value Called By [facility] Crit Value Read Back Y Blood Gas Notified Time 1015 Potassium Carbon Dioxide Anion Gap BUN Creatinine Est GFR ( Amer) Est GFR (Non-Af Amer) POC Glucose (mg/dL) Random Glucose Calcium Total Bilirubin AST ALT Alkaline Phosphatase Troponin I NT-Pro-B Natriuret Pep Total Protein Albumin Globulin Albumin/Globulin Ratio Arterial Blood Potassium 2.9 L 07/07/18 07/07/18 07/07/18 10:20 12:01 16:04 WBC RBC Hgb Hct MCV MCH MCHC RDW Plt Count MPV Neut % (Auto) Lymph % (Auto) [place] % (Auto) Eos % (Auto) Baso % (Auto) Neut # (Auto) Lymph # (Auto) [place] # (Auto) Eos # (Auto) Baso # (Auto) PT INR APTT Puncture Site Rr pCO2 78 H* pO2 81 HCO3 36.2 H ABG pH 7.35 ABG Total CO2 45.5 H ABG O2 Saturation 97.4 ABG Base Excess 14.5 H ABG Hemoglobin 11.1 L ABG Carboxyhemoglobin 2.5 H POC ABG HHb (Measured) 2.5 ABG Methemoglobin 0.8 [place] Test Pos ABG Potassium A-a O2 Difference 21.0 Respiratory Index 0.3 Hgb O2 Saturation 94.1 L Sodium 138 Chloride 89 L Glucose Lactate FiO2 28.0 Inspiratory BiPAP 18 Expiratory BiPAP 7 Crit Value Called To [place]ie [place] Crit Value Called By Marc castillo rrt Crit Value Read Back Y Blood Gas Notified Time 1207 Potassium 3.2 L Carbon Dioxide 42 H* D Anion Gap 10 BUN 21 H Creatinine 0.7 Est GFR ( Amer) > 60 Est GFR (Non-Af Amer) > 60 POC Glucose (mg/dL) 260 H Random Glucose 212 H Calcium 9.0 Total Bilirubin 0.5 AST 16 ALT 21 Alkaline Phosphatase 91 Troponin I 0.0250 NT-Pro-B Natriuret Pep 427 Total Protein 6.6 Albumin 3.6 Globulin 3.0 Albumin/Globulin Ratio 1.2 Arterial Blood Potassium
[2018-07-07] MEDS: Rosuvastatin Calcium 2.5 mg Tab PO SCH (21:36)
[2018-07-07] MEDS: (Novolin R) Insulin Human Regular 100 units/ml vial SC SCH (21:36)
[2018-07-07] MEDS: MethylPREDNISolone 40 mg Vial IVP SCH (21:36)
[2018-07-07] MEDS ORDERED: INSULIN DETEMIR 50 UNIT SC SCH (22:00)
[2018-07-07] MEDS: Insulin Detemir 100 units/ml Vial (Levemir) SC SCH (22:05)
[2018-07-08] MEDS: Albuterol-Ipratrop 3 mg / 0.5 (3 ml) UD INH SCH ×6 (02:08→19:42)
[2018-07-08] MEDS: Levothyroxine 150 MCG TAB PO SCH (05:51)
[2018-07-08 06:41] LABS: BASO % 0.2 % (0.0-2.0); HEMOGLOBIN 10.9 g/dL (11.0-16.0); LYMPH # 0.8 K/uL (1.0-4.3); LYMPH % 10.3 % (20.0-40.0); MEAN CELL VOLUME 88.1 fL (81.0-99.0); MEAN CORPUSCULAR HEMOGLOBIN 27.9 pg (27.0-31.0); MEAN CORPUSCULAR HGB CONC 31.7 g/dL (33.0-37.0); MEAN PLATELET VOLUME 8.8 fL (7.2-11.7); MONO # 0.2 K/uL (0.0-0.8); MONO % 3.3 % (0.0-10.0); NEUT # 6.4 K/uL (1.8-7.0); NEUT % 86.2 % (50.0-75.0); NRBC % 0.1 % (0.0-2.0); RBC 3.92 Mil/uL (3.80-5.20); RED CELL DISTRIBUTION WIDTH 15.5 % (11.5-14.5); WHITE BLOOD COUNT 7.5 K/uL (4.8-10.8)
[2018-07-08 06:52] LABS: ALB/GLOB RATIO 1.2 (1.0-2.1); ALBUMIN 3.5 g/dL (3.5-5.0); ALT/SGPT 18 U/L (9-52); AST/SGOT 12 U/L (14-36); BLOOD UREA NITROGEN 32 mg/dL (7-17); CALCIUM 8.8 mg/dl (8.6-10.4); GFR NON-AFRICAN AMERICAN > 60
[2018-07-08] MEDS: (Novolin R) Insulin Human Regular 100 units/ml vial SC SCH ×4 (07:26→22:11)
--- NOTE | 2018-07-08 07:47 | CP.CCUPN ---
CCU Subjective - Physician Review Subjective (Free Text): 07/08/18 11:04 Patient's breathing has improved. Patient is medically stable for [place] [facility] [place] Critical Care Time Spent (in minutes): 35 CCU Objective - Vital Signs / Intake & Output Vital Signs (Last 4 hours): Vital Signs Temp Pulse Resp BP Pulse Ox 07/08/18 07:00 80 20 97 07/08/18 06:48 80 17 106/90 96 07/08/18 06:00 82 15 98 07/08/18 05:47 79 12 98 07/08/18 05:00 74 24 100 07/08/18 04:46 72 22 135/79 98 07/08/18 04:00 98.2 F 75 26 H 100 07/08/18 03:50 76 Intake and Output (Last 8hrs): Intake & Output 07/07/18 07/08/18 07/08/18 22:59 06:59 14:59 Intake Total 600 200 100 Balance 600 200 100 Weight 285 lb 285 lb Intake: Intake, IV Amount 400 Right Subclavian 400 Oral 200 200 100 Other: # Voids Urine, Voided 0 0 # Bowel Movements 0 0 - Physical Exam Other physical findings (Free Text): - Constitutional Appears: No Acute Distress - Head Exam Head Exam: ATRAUMATIC, NORMOCEPHALIC - Eye Exam Eye Exam: EOMI, Normal appearance - ENT Exam ENT Exam: Mucous Membranes Moist - Respiratory Exam Respiratory Exam: Rhonchi. absent: Accessory Muscle Use, Rales, Wheezes, Respiratory Distress - Cardiovascular Exam Cardiovascular Exam: REGULAR RHYTHM, +S1, +S2. absent: Gallop, Rubs, Systolic Murmur - GI/Abdominal Exam GI & Abdominal Exam: Normal Bowel Sounds, Soft. absent: Distended, Tenderness - Extremities Exam Extremities exam: Positive for: normal inspection. Negative for: pedal edema - Neurological Exam Neurological exam: Alert - Psychiatric Exam Psychiatric exam: Normal Affect - Skin Skin Exam: Dry, Intact, Normal Color, Warm - Medications Active Medications: Active Medications Generic Name Dose Route Start Last Admin Trade Name Freq PRN Reason Stop Dose Admin Albuterol/Ipratropium 3 ml 07/07/18 16:00 07/08/18 07:35 Duoneb 3 Mg/0.5 Mg (3 Ml) Ud INH 3 ml RQ4 [facility] Administration Albuterol/Ipratropium 3 ml 07/07/18 17:00 07/08/18 02:08 Duoneb 3 Mg/0.5 Mg (3 Ml) Ud INH Not Given Q6H [facility] Amlodipine Besylate 10 mg 07/08/18 10:00 Norvasc PO DAILY [facility] Aspirin 81 mg 07/08/18 10:00 Aspirin Chewable PO DAILY [facility] Carbidopa/Levodopa 1 tab 07/07/18 18:00 07/07/18 18:09 Sinemet PO 1 tab TID [facility] Administration Docusate Sodium 100 mg 07/07/18 18:00 07/07/18 18:09 Colace PO 100 mg BID [facility] Administration Escitalopram Oxalate 10 mg 07/08/18 10:00 Lexapro PO DAILY [facility] Famotidine 20 mg 07/08/18 10:00 Pepcid PO DAILY [facility] Furosemide 40 mg 07/08/18 10:00 Lasix PO DAILY [facility] Gabapentin 300 mg 07/07/18 18:00 07/07/18 18:09 Neurontin PO 300 mg BID [facility] Administration Moxifloxacin HCl 400 mg in 250 mls @ 167 mls/hr 07/07/18 18:30 07/07/18 18:09 Avelox Iv 400mg/250ml Ns IVPB 167 mls/hr Q24H [facility] Administration Protocol Insulin Detemir 50 unit 07/07/18 22:00 07/07/18 22:05 Levemir SC 50 u HS [facility] Administration Insulin Human Regular 0 unit 07/07/18 22:00 07/08/18 07:26 Novolin R SC 3 u ACHS [facility] Administration Protocol Levothyroxine Sodium 150 mcg 07/08/18 06:30 07/08/18 05:51 Synthroid PO 150 mcg 0630 [facility] Administration Lisinopril 2.5 mg 07/08/18 10:00 Zestril PO DAILY [facility] Magnesium Hydroxide 30 ml 07/07/18 16:57 Milk Of Magnesia PO PRN PRN Heartburn Methylprednisolone 40 mg 07/07/18 22:00 07/07/18 21:36 Solu-Medrol IVP 40 mg Q12 [facility] Administration Metoprolol Tartrate 25 mg 07/07/18 18:00 07/07/18 18:10 Lopressor PO 25 mg BID [facility] Administration Pantoprazole Sodium 40 mg 07/08/18 10:00 Protonix Ec Tab PO DAILY [facility] Primidone 100 mg 07/07/18 22:00 07/07/18 21:36 Mysoline PO 100 mg HS [facility] Administration Rosuvastatin Calcium 2.5 mg 07/07/18 22:00 07/07/18 21:36 Crestor PO 2.5 mg HS [facility] Administration - Patient Studies Lab Studies: Lab Studies 07/08/18 07/08/18 07/07/18 Range/Units 06:32 06:30 21:22 WBC 7.5 (4.8-10.8) K/uL RBC 3.92 (3.80-5.20) Mil/uL Hgb 10.9 L (11.0-16.0) g/dL Hct 34.5 (34.0-47.0) % MCV 88.1 (81.0-99.0) fL MCH 27.9 (27.0-31.0) pg MCHC 31.7 L (33.0-37.0) g/dL RDW 15.5 H (11.5-14.5) % Plt Count 186 (130-400) K/uL MPV 8.8 (7.2-11.7) fL Neut % (Auto) 86.2 H (50.0-75.0) % Lymph % (Auto) 10.3 L (20.0-40.0) % [place] % (Auto) 3.3 (0.0-10.0) % Eos % (Auto) 0.0 (0.0-4.0) % Baso % (Auto) 0.2 (0.0-2.0) % Neut # (Auto) 6.4 (1.8-7.0) K/uL Lymph # (Auto) 0.8 L (1.0-4.3) K/uL [place] # (Auto) 0.2 (0.0-0.8) K/uL Eos # (Auto) 0.0 (0.0-0.7) K/uL Baso # (Auto) 0.0 (0.0-0.2) K/uL PT (9.7-12.2) SECONDS INR APTT (21-34) SECONDS Puncture Site pCO2 (35-45) mm/Hg pO2 (80-100) mm/Hg HCO3 (21-28) mmol/L ABG pH (7.35-7.45) ABG Total CO2 (22-28) mmol/L ABG O2 Saturation (95-98) % ABG Base Excess (-2.0-3.0) mmol/L ABG Hemoglobin (11.7-17.4) g/dL ABG Carboxyhemoglobin (0.5-1.5) % POC ABG HHb (Measured) (0.0-5.0) % ABG Methemoglobin (0.0-3.0) % [place] Test ABG Potassium (3.6-5.2) mmol/L A-a O2 Difference mm/Hg Respiratory Index Hgb O2 Saturation (95.0-98.0) % Sodium 137 (132-148) mmol/l Chloride 91 L (98-107) mmol/L Glucose (65-105) mg/dl Lactate (0.7-2.1) mmol/L FiO2 % Inspiratory BiPAP Expiratory BiPAP Crit Value Called To Crit Value Called By Crit Value Read Back Blood Gas Notified Time Potassium 3.9 (3.6-5.2) mmol/L Carbon Dioxide 37 H (22-30) mmol/L Anion Gap 13 (10-20) BUN 32 H (7-17) mg/dL Creatinine 0.8 (0.7-1.2) mg/dL Est GFR ( Amer) > 60 Est GFR (Non-Af Amer) > 60 POC Glucose (mg/dL) 245 H (65-110) mg/dL Random Glucose 258 H (65-105) mg/dL Calcium 8.8 (8.6-10.4) mg/dl Phosphorus 3.1 (2.5-4.5) mg/dL Magnesium 2.2 (1.6-2.3) mg/dL Total Bilirubin 0.4 (0.2-1.3) mg/dL AST 12 L D (14-36) U/L ALT 18 (9-52) U/L Alkaline Phosphatase 88 (38-126) U/L Troponin I (0.00-0.120) ng/mL NT-Pro-B Natriuret Pep (0-900) pg/mL Total Protein 6.4 (6.3-8.3) g/dL Albumin 3.5 (3.5-5.0) g/dL Globulin 2.9 (2.2-3.9) gm/dL Albumin/Globulin Ratio 1.2 (1.0-2.1) Arterial Blood Potassium (3.6-5.2) mmol/L 07/07/18 07/07/18 07/07/18 Range/Units 16:04 12:01 10:20 WBC (4.8-10.8) K/uL RBC (3.80-5.20) Mil/uL Hgb (11.0-16.0) g/dL Hct (34.0-47.0) % MCV (81.0-99.0) fL MCH (27.0-31.0) pg MCHC (33.0-37.0) g/dL RDW (11.5-14.5) % Plt Count (130-400) K/uL MPV (7.2-11.7) fL Neut % (Auto) (50.0-75.0) % Lymph % (Auto) (20.0-40.0) % [place] % (Auto) (0.0-10.0) % Eos % (Auto) (0.0-4.0) % Baso % (Auto) (0.0-2.0) % Neut # (Auto) (1.8-7.0) K/uL Lymph # (Auto) (1.0-4.3) K/uL [place] # (Auto) (0.0-0.8) K/uL Eos # (Auto) (0.0-0.7) K/uL Baso # (Auto) (0.0-0.2) K/uL PT (9.7-12.2) SECONDS INR APTT (21-34) SECONDS Puncture Site Rr pCO2 78 H* (35-45) mm/Hg pO2 81 (80-100) mm/Hg HCO3 36.2 H (21-28) mmol/L ABG pH 7.35 (7.35-7.45) ABG Total CO2 45.5 H (22-28) mmol/L ABG O2 Saturation 97.4 (95-98) % ABG Base Excess 14.5 H (-2.0-3.0) mmol/L ABG Hemoglobin 11.1 L (11.7-17.4) g/dL ABG Carboxyhemoglobin 2.5 H (0.5-1.5) % POC ABG HHb (Measured) 2.5 (0.0-5.0) % ABG Methemoglobin 0.8 (0.0-3.0) % [place] Test Pos ABG Potassium (3.6-5.2) mmol/L A-a O2 Difference 21.0 mm/Hg Respiratory Index 0.3 Hgb O2 Saturation 94.1 L (95.0-98.0) % Sodium 138 (132-148) mmol/l Chloride 89 L (98-107) mmol/L Glucose (65-105) mg/dl Lactate (0.7-2.1) mmol/L FiO2 28.0 % Inspiratory BiPAP 18 Expiratory BiPAP 7 Crit Value Called To [place]ie [place] Crit Value Called By Marc castillo rrt Crit Value Read Back Y Blood Gas Notified Time 1207 Potassium 3.2 L (3.6-5.2) mmol/L Carbon Dioxide 42 H* D (22-30) mmol/L Anion Gap 10 (10-20) BUN 21 H (7-17) mg/dL Creatinine 0.7 (0.7-1.2) mg/dL Est GFR ( Amer) > 60 Est GFR (Non-Af Amer) > 60 POC Glucose (mg/dL) 260 H (65-110) mg/dL Random Glucose 212 H (65-105) mg/dL Calcium 9.0 (8.6-10.4) mg/dl Phosphorus (2.5-4.5) mg/dL Magnesium (1.6-2.3) mg/dL Total Bilirubin 0.5 (0.2-1.3) mg/dL AST 16 (14-36) U/L ALT 21 (9-52) U/L Alkaline Phosphatase 91 (38-126) U/L Troponin I 0.0250 (0.00-0.120) ng/mL NT-Pro-B Natriuret Pep 427 (0-900) pg/mL Total Protein 6.6 (6.3-8.3) g/dL Albumin 3.6 (3.5-5.0) g/dL Globulin 3.0 (2.2-3.9) gm/dL Albumin/Globulin Ratio 1.2 (1.0-2.1) Arterial Blood Potassium (3.6-5.2) mmol/L 07/07/18 07/07/18 07/07/18 Range/Units 10:20 10:20 10:10 WBC 11.3 H (4.8-10.8) K/uL RBC 4.14 (3.80-5.20) Mil/uL Hgb 11.6 (11.0-16.0) g/dL Hct 36.3 (34.0-47.0) % MCV 87.9 (81.0-99.0) fL MCH 28.0 (27.0-31.0) pg MCHC 31.9 L (33.0-37.0) g/dL RDW 15.6 H (11.5-14.5) % Plt Count 178 D (130-400) K/uL MPV 8.5 (7.2-11.7) fL Neut % (Auto) 75.8 H (50.0-75.0) % Lymph % (Auto) 15.4 L (20.0-40.0) % [place] % (Auto) 5.8 (0.0-10.0) % Eos % (Auto) 2.0 (0.0-4.0) % Baso % (Auto) 1.0 (0.0-2.0) % Neut # (Auto) 8.6 H (1.8-7.0) K/uL Lymph # (Auto) 1.7 (1.0-4.3) K/uL [place] # (Auto) 0.7 (0.0-0.8) K/uL Eos # (Auto) 0.2 (0.0-0.7) K/uL Baso # (Auto) 0.1 (0.0-0.2) K/uL PT 10.9 (9.7-12.2) SECONDS INR 1.0 APTT 34 (21-34) SECONDS Puncture Site Rba pCO2 76 H* (35-45) mm/Hg pO2 54 L (80-100) mm/Hg HCO3 34.6 H (21-28) mmol/L ABG pH 7.35 (7.35-7.45) ABG Total CO2 44.3 H (22-28) mmol/L ABG O2 Saturation 92.2 L (95-98) % ABG Base Excess 12.8 H (-2.0-3.0) mmol/L ABG Hemoglobin (11.7-17.4) g/dL ABG Carboxyhemoglobin (0.5-1.5) % POC ABG HHb (Measured) (0.0-5.0) % ABG Methemoglobin (0.0-3.0) % [place] Test Pos ABG Potassium 2.9 L (3.6-5.2) mmol/L A-a O2 Difference 51.0 mm/Hg Respiratory Index 0.9 Hgb O2 Saturation (95.0-98.0) % Sodium 139.0 (132-148) mmol/l Chloride 98.0 (98-107) mmol/L Glucose 212 H (65-105) mg/dl Lactate 0.6 L (0.7-2.1) mmol/L FiO2 28.0 % Inspiratory BiPAP 16 Expiratory BiPAP 8 Crit Value Called To Dr sol Crit Value Called By [facility] Crit Value Read Back Y Blood Gas Notified Time 1015 Potassium (3.6-5.2) mmol/L Carbon Dioxide (22-30) mmol/L Anion Gap (10-20) BUN (7-17) mg/dL Creatinine (0.7-1.2) mg/dL Est GFR ( Amer) Est GFR (Non-Af Amer) POC Glucose (mg/dL) (65-110) mg/dL Random Glucose (65-105) mg/dL Calcium (8.6-10.4) mg/dl Phosphorus (2.5-4.5) mg/dL Magnesium (1.6-2.3) mg/dL Total Bilirubin (0.2-1.3) mg/dL AST (14-36) U/L ALT (9-52) U/L Alkaline Phosphatase (38-126) U/L Troponin I (0.00-0.120) ng/mL NT-Pro-B Natriuret Pep (0-900) pg/mL Total Protein (6.3-8.3) g/dL Albumin (3.5-5.0) g/dL Globulin (2.2-3.9) gm/dL Albumin/Globulin Ratio (1.0-2.1) Arterial Blood Potassium 2.9 L (3.6-5.2) mmol/L Laboratory Results - last 24 hr 07/07/18 07/07/18 07/07/18 10:10 10:20 10:20 WBC 11.3 H RBC 4.14 Hgb 11.6 Hct 36.3 MCV 87.9 MCH 28.0 MCHC 31.9 L RDW 15.6 H Plt Count 178 D MPV 8.5 Neut % (Auto) 75.8 H Lymph % (Auto) 15.4 L [place] % (Auto) 5.8 Eos % (Auto) 2.0 Baso % (Auto) 1.0 Neut # (Auto) 8.6 H Lymph # (Auto) 1.7 [place] # (Auto) 0.7 Eos # (Auto) 0.2 Baso # (Auto) 0.1 PT 10.9 INR 1.0 APTT 34 Puncture Site Rba pCO2 76 H* pO2 54 L HCO3 34.6 H ABG pH 7.35 ABG Total CO2 44.3 H ABG O2 Saturation 92.2 L ABG Base Excess 12.8 H ABG Hemoglobin ABG Carboxyhemoglobin POC ABG HHb (Measured) ABG Methemoglobin [place] Test Pos ABG Potassium 2.9 L A-a O2 Difference 51.0 Respiratory Index 0.9 Hgb O2 Saturation Sodium 139.0 Chloride 98.0 Glucose 212 H Lactate 0.6 L FiO2 28.0 Inspiratory BiPAP 16 Expiratory BiPAP 8 Crit Value Called To Dr sol Crit Value Called By [facility] Crit Value Read Back Y Blood Gas Notified Time 1015 Potassium Carbon Dioxide Anion Gap BUN Creatinine Est GFR ( Amer) Est GFR (Non-Af Amer) POC Glucose (mg/dL) Random Glucose Calcium Phosphorus Magnesium Total Bilirubin AST ALT Alkaline Phosphatase Troponin I NT-Pro-B Natriuret Pep Total Protein Albumin Globulin Albumin/Globulin Ratio Arterial Blood Potassium 2.9 L 07/07/18 07/07/18 07/07/18 10:20 12:01 16:04 WBC RBC Hgb Hct MCV MCH MCHC RDW Plt Count MPV Neut % (Auto) Lymph % (Auto) [place] % (Auto) Eos % (Auto) Baso % (Auto) Neut # (Auto) Lymph # (Auto) [place] # (Auto) Eos # (Auto) Baso # (Auto) PT INR APTT Puncture Site Rr pCO2 78 H* pO2 81 HCO3 36.2 H ABG pH 7.35 ABG Total CO2 45.5 H ABG O2 Saturation 97.4 ABG Base Excess 14.5 H ABG Hemoglobin 11.1 L ABG Carboxyhemoglobin 2.5 H POC ABG HHb (Measured) 2.5 ABG Methemoglobin 0.8 [place] Test Pos ABG Potassium A-a O2 Difference 21.0 Respiratory Index 0.3 Hgb O2 Saturation 94.1 L Sodium 138 Chloride 89 L Glucose Lactate FiO2 28.0 Inspiratory BiPAP 18 Expiratory BiPAP 7 Crit Value Called To Vivianrn Crit Value Called By Marc castillo rrt Crit Value Read Back Y Blood Gas Notified Time 1207 Potassium 3.2 L Carbon Dioxide 42 H* D Anion Gap 10 BUN 21 H Creatinine 0.7 Est GFR ( Amer) > 60 Est GFR (Non-Af Amer) > 60 POC Glucose (mg/dL) 260 H Random Glucose 212 H Calcium 9.0 Phosphorus Magnesium Total Bilirubin 0.5 AST 16 ALT 21 Alkaline Phosphatase 91 Troponin I 0.0250 NT-Pro-B Natriuret Pep 427 Total Protein 6.6 Albumin 3.6 Globulin 3.0 Albumin/Globulin Ratio 1.2 Arterial Blood Potassium 07/07/18 07/08/18 07/08/18 21:22 06:30 06:32 WBC 7.5 RBC 3.92 Hgb 10.9 L Hct 34.5 MCV 88.1 MCH 27.9 MCHC 31.7 L RDW 15.5 H Plt Count 186 MPV 8.8 Neut % (Auto) 86.2 H Lymph % (Auto) 10.3 L [place] % (Auto) 3.3 Eos % (Auto) 0.0 Baso % (Auto) 0.2 Neut # (Auto) 6.4 Lymph # (Auto) 0.8 L [place] # (Auto) 0.2 Eos # (Auto) 0.0 Baso # (Auto) 0.0 PT INR APTT Puncture Site pCO2 pO2 HCO3 ABG pH ABG Total CO2 ABG O2 Saturation ABG Base Excess ABG Hemoglobin ABG Carboxyhemoglobin POC ABG HHb (Measured) ABG Methemoglobin Donta Test ABG Potassium A-a O2 Difference Respiratory Index Hgb O2 Saturation Sodium 137 Chloride 91 L Glucose Lactate FiO2 Inspiratory BiPAP Expiratory BiPAP Crit Value Called To Crit Value Called By Crit Value Read Back Blood Gas Notified Time Potassium 3.9 Carbon Dioxide 37 H Anion Gap 13 BUN 32 H Creatinine 0.8 Est GFR ( Amer) > 60 Est GFR (Non-Af Amer) > 60 POC Glucose (mg/dL) 245 H Random Glucose 258 H Calcium 8.8 Phosphorus 3.1 Magnesium 2.2 Total Bilirubin 0.4 AST 12 L D ALT 18 Alkaline Phosphatase 88 Troponin I NT-Pro-B Natriuret Pep Total Protein 6.4 Albumin 3.5 Globulin 2.9 Albumin/Globulin Ratio 1.2 Arterial Blood Potassium EKG/Cardiology Studies: Cardiology / EKG Studies 07/07/18 09:46 ELECTROCARDIOGRAM Stat Comment: Mode Of Transportation: BED Reason For Exam: chest pain Fingerstick Blood Sugar Results: 260 Critical Care Progress Note - Nutrition Nutrition: Nutrition Category Date Time Status NPO Diet [DIET] Diets 07/07/18 Dinner Active
[2018-07-08] MEDS: MethylPREDNISolone 40 mg Vial IVP SCH ×2 (09:59→22:10)
[2018-07-08] MEDS ORDERED: Pantoprazole 40 mg EC Tab PO SCH (10:00)
[2018-07-08 10:56] LABS: ARTERIAL BLOOD GAS HCO3 36.2 mmol/L (21-28); ARTERIAL BLOOD GAS PCO2 69 mm/Hg (35-45); ARTERIAL BLOOD GAS PO2 84 mm/Hg (80-100)
[2018-07-08 10:57] LABS: ARTERIAL BLOOD GAS O2 SAT 97.8 % (95-98); ARTERIAL BLOOD GAS TCO2 44.8 mmol/L (22-28)
[2018-07-08 10:58] LABS: ABG ALLEN TEST POS; ARTERIAL BLOOD GAS FIO2 28 %
--- NOTE | 2018-07-08 11:58 | CP.PCM.PN ---
Subjective - Date & Time of Evaluation Date of Evaluation: 07/08/18 Time of Evaluation: 14:00 - Subjective Subjective: clinically same Objective - Vital Signs/Intake and Output Vital Signs (last 24 hours): Temp Pulse Resp BP Pulse Ox 97.8 F 81 15 96/38 L 95 07/08/18 08:00 07/08/18 10:02 07/08/18 10:02 07/08/18 10:04 07/08/18 10:02 Intake and Output: 07/08/18 07/08/18 06:59 18:59 Intake Total 300 340 Balance 300 340 - Medications Medications: Current Medications Albuterol/Ipratropium (Duoneb 3 Mg/0.5 Mg (3 Ml) Ud) 3 ml INH RQ4 [facility] Last Admin: 07/08/18 11:25 Dose: 3 ml Albuterol/Ipratropium (Duoneb 3 Mg/0.5 Mg (3 Ml) Ud) 3 ml INH Q6H [facility] Last Admin: 07/08/18 02:08 Dose: Not Given Amlodipine Besylate (Norvasc) 10 mg PO DAILY [facility] Last Admin: 07/08/18 10:43 Dose: Not Given Aspirin (Aspirin Chewable) 81 mg PO DAILY [facility] Last Admin: 07/08/18 09:56 Dose: 81 mg Carbidopa/Levodopa (Sinemet) 1 tab PO TID [facility] Last Admin: 07/08/18 09:56 Dose: 1 tab Docusate Sodium (Colace) 100 mg PO BID [facility] Last Admin: 07/08/18 09:58 Dose: 100 mg Escitalopram Oxalate (Lexapro) 10 mg PO DAILY [facility] Last Admin: 07/08/18 09:59 Dose: 10 mg Famotidine (Pepcid) 20 mg PO DAILY [facility] Last Admin: 07/08/18 10:00 Dose: 20 mg Furosemide (Lasix) 40 mg PO DAILY [facility] Last Admin: 07/08/18 10:03 Dose: 40 mg Gabapentin (Neurontin) 300 mg PO BID [facility] Last Admin: 07/08/18 09:59 Dose: 300 mg Moxifloxacin HCl (Avelox Iv 400mg/250ml Ns) 400 mg in 250 mls @ 167 mls/hr IVPB Q24H [facility]; Protocol Last Admin: 07/07/18 18:09 Dose: 167 mls/hr Insulin Detemir (Levemir) 50 unit SC [facility] Last Admin: 07/07/18 22:05 Dose: 50 u Insulin Human Regular (Novolin R) 0 unit SC [facility]; Protocol Last Admin: 07/08/18 11:34 Dose: 2 u Levothyroxine Sodium (Synthroid) 150 mcg PO 0630 [facility] Last Admin: 07/08/18 05:51 Dose: 150 mcg Lisinopril (Zestril) 2.5 mg PO DAILY [facility] Last Admin: 07/08/18 09:59 Dose: 2.5 mg Magnesium Hydroxide (Milk Of Magnesia) 30 ml PO PRN PRN PRN Reason: Heartburn Methylprednisolone (Solu-Medrol) 40 mg IVP Q12 [facility] Last Admin: 07/08/18 09:59 Dose: 40 mg Metoprolol Tartrate (Lopressor) 25 mg PO BID [facility] Last Admin: 07/08/18 10:04 Dose: Not Given Primidone (Mysoline) 100 mg PO [facility] Last Admin: 07/07/18 21:36 Dose: 100 mg Rosuvastatin Calcium (Crestor) 2.5 mg PO [facility] Last Admin: 07/07/18 21:36 Dose: 2.5 mg - Labs Labs: 07/08/18 06:32 07/08/18 06:30 PT 10.9 SECONDS (9.7-12.2) 07/07/18 10:20 INR 1.0 07/07/18 10:20 APTT 34 SECONDS (21-34) 07/07/18 10:20 - Constitutional Appears: Well - Head Exam Head Exam: ATRAUMATIC, NORMAL INSPECTION, NORMOCEPHALIC - Eye Exam Eye Exam: EOMI, Normal appearance, PERRL Pupil Exam: NORMAL ACCOMODATION, PERRL - ENT Exam ENT Exam: Mucous Membranes Moist, Normal Exam - Neck Exam Neck Exam: Full ROM, Normal Inspection. absent: Lymphadenopathy - Respiratory Exam Respiratory Exam: Decreased Breath Sounds - Cardiovascular Exam Cardiovascular Exam: REGULAR RHYTHM, +S1, +S2 - GI/Abdominal Exam GI & Abdominal Exam: Soft, Diminished Bowel Sounds - Rectal Exam Rectal Exam: Deferred
[2018-07-08] MEDS: Enoxaparin 40 mg Syringe SC SCH (15:00)
[2018-07-08] MEDS: Moxifloxacin IV 400mg/250ml NS 400 MG/250 ML BAG IVPB SCH (17:39)
--- NOTE | 2018-07-08 18:18 | CP.PCM.CON ---
History of Present Illness - History of Present Illness History of Present Illness: Reason for consultation: COPD exacerbation/respiratory failure Patient is a 73 year old female with a PMHx of HTN, COPD, Anemia, Anxiety, Arthritis, Bipolar disorder, Dementia, Depression, Parkinson's disease, Hyperthyroidism, and Sleep Apnea who was brought to ED in from long term with worsening shortness of breath. Patient has been admitted multiple times for recurrent COPD exacerbation. Patient was put on BiPAP and transferred to ICU for hypercapnic respiratory distress. PMHx: HTN, COPD, Anemia, Anxiety, Arthritis, Bipolar disorder, Dementia, Depression, Parkinson's disease, Hyperthyroidism and Sleep Apnea Surgical Hx: Hysterectomy, Right knee fusion, Oophorectomy (unknown location), Uterine/ovarian cyst removal, C- sections (unknown). FMHx: Mother - HTN, breast cysts. Meds: Prednisone, Norvasc, Metoprolol, Lisinopril, Lasix, Crestor, Mysoline, Duoneb, Singulair, Carbi/levodopa, Azelastine, Aspirin Allergies: Cephalosporins, Penicillins, Clonazepam, Mustard Social History: Lives in [facility]. Former smoker of 5 cigarettes per day for 40 years, quit 10 years ago. Denies alcohol and illicit drug use. Review of Systems - Review of Systems All systems: reviewed and no additional remarkable complaints except Past Patient History - Infectious Disease Hx of Infectious Diseases: None - Tetanus Immunizations Tetanus Immunization: Unknown - Past Medical History & Family History Past Medical History?: Yes - Past Social History Smoking Status: Unknown If Ever Smoked - CARDIAC Hx Hypercholesterolemia: Yes Hx Hypertension: Yes - PULMONARY Hx Chronic Obstructive Pulmonary Disease (COPD): Yes (ex-smoker) Hx Sleep Apnea: Yes (on Bipap) - NEUROLOGICAL Hx Dementia: Yes Hx Parkinson's Disease: Yes - HEENT Hx HEENT Problems: No - RENAL Hx Chronic Kidney Disease: No - ENDOCRINE/METABOLIC Hx Hypothyroidism: Yes - HEMATOLOGICAL/ONCOLOGICAL Hx Anemia: Yes - INTEGUMENTARY Hx Dermatological Problems: No - MUSCULOSKELETAL/RHEUMATOLOGICAL Hx Arthritis: Yes (B knees) - GASTROINTESTINAL Hx Gastrointestinal Disorders: Yes Hx Constipation: Yes Hx Gastroesophageal Reflux: Yes - GENITOURINARY/GYNECOLOGICAL Hx Genitourinary Disorders: Yes Hx Incontinence: Yes Hx Urinary Tract Infection: Yes - PSYCHIATRIC Hx Anxiety: Yes Hx Bipolar Disorder: Yes Hx Depression: Yes Hx Substance Use: No - SURGICAL HISTORY Hx Surgeries: Yes Hx Hysterectomy: Yes Hx Orthopedic Surgery: Yes Other/Comment: right knee replacement 2014; right knee prosthesis removal s/p infection 2014 - ANESTHESIA Hx Anesthesia: Yes Hx Anesthesia Reactions: No Hx Malignant Hyperthermia: No Meds Allergies/Adverse Reactions: Allergies Allergy/AdvReac Type Severity Reaction Status Date / Time Cephalosporins Allergy Intermediate RASH Verified 07/07/18 09:53 Penicillins Allergy Intermediate RASH Verified 07/07/18 09:53 clonazepam [From Klonopin] Allergy Verified 07/07/18 09:53 mustard Allergy Intermediate RASH Uncoded 07/07/18 09:53 - Medications Medications: Current Medications Albuterol/Ipratropium (Duoneb 3 Mg/0.5 Mg (3 Ml) Ud) 3 ml INH RQ4 [facility] Last Admin: 07/08/18 11:25 Dose: 3 ml Albuterol/Ipratropium (Duoneb 3 Mg/0.5 Mg (3 Ml) Ud) 3 ml INH Q6H [facility] Last Admin: 07/08/18 02:08 Dose: Not Given Amlodipine Besylate (Norvasc) 10 mg PO DAILY [facility] Last Admin: 07/08/18 10:43 Dose: Not Given Aspirin (Aspirin Chewable) 81 mg PO DAILY [facility] Last Admin: 07/08/18 09:56 Dose: 81 mg Carbidopa/Levodopa (Sinemet) 1 tab PO TID [facility] Last Admin: 07/08/18 17:09 Dose: 1 tab Docusate Sodium (Colace) 100 mg PO BID [facility] Last Admin: 07/08/18 17:09 Dose: 100 mg Enoxaparin Sodium (Lovenox) 40 mg SC DAILY [facility] Last Admin: 07/08/18 15:00 Dose: 40 mg Escitalopram Oxalate (Lexapro) 10 mg PO DAILY [facility] Last Admin: 07/08/18 09:59 Dose: 10 mg Famotidine (Pepcid) 20 mg PO DAILY [facility] Last Admin: 07/08/18 10:00 Dose: 20 mg Furosemide (Lasix) 40 mg PO DAILY [facility] Last Admin: 07/08/18 10:03 Dose: 40 mg Gabapentin (Neurontin) 300 mg PO BID [facility] Last Admin: 07/08/18 17:09 Dose: 300 mg Moxifloxacin HCl (Avelox Iv 400mg/250ml Ns) 400 mg in 250 mls @ 167 mls/hr IVPB Q24H [facility]; Protocol Last Admin: 07/08/18 17:39 Dose: 167 mls/hr Insulin Detemir (Levemir) 50 unit SC [facility] Last Admin: 07/07/18 22:05 Dose: 50 u Insulin Human Regular (Novolin R) 0 unit SC [facility]; Protocol Last Admin: 07/08/18 17:07 Dose: 4 u Levothyroxine Sodium (Synthroid) 150 mcg PO 0630 [facility] Last Admin: 07/08/18 05:51 Dose: 150 mcg Lisinopril (Zestril) 2.5 mg PO DAILY [facility] Last Admin: 07/08/18 09:59 Dose: 2.5 mg Magnesium Hydroxide (Milk Of Magnesia) 30 ml PO PRN PRN PRN Reason: Heartburn Methylprednisolone (Solu-Medrol) 40 mg IVP Q12 [facility] Last Admin: 07/08/18 09:59 Dose: 40 mg Metoprolol Tartrate (Lopressor) 25 mg PO BID [facility] Last Admin: 07/08/18 17:09 Dose: 25 mg Primidone (Mysoline) 100 mg PO [facility] Last Admin: 07/07/18 21:36 Dose: 100 mg Rosuvastatin Calcium (Crestor) 2.5 mg PO [facility] Last Admin: 07/07/18 21:36 Dose: 2.5 mg Physical Exam - Head Exam Head Exam: ATRAUMATIC, NORMOCEPHALIC - ENT Exam ENT Exam: Mucous Membranes Moist - Neck Exam Neck exam: Positive for: Normal Inspection - Respiratory Exam Respiratory Exam: Decreased Breath Sounds - Cardiovascular Exam Cardiovascular Exam: REGULAR RHYTHM - GI/Abdominal Exam GI & Abdominal Exam: Normal Bowel Sounds, Soft - Extremities Exam Extremities exam: Positive for: normal inspection - Neurological Exam Neurological exam: Alert, Oriented x3 Results - Vital Signs Recent Vital Signs: Last Vital Signs Temp 99.2 F 07/08/18 16:00 Pulse 90 07/08/18 17:08 Resp 22 07/08/18 17:08 BP 135/61 07/08/18 17:09 Pulse Ox 98 07/08/18 17:08 - Labs Result Diagrams: 07/08/18 06:32 07/08/18 06:30 Labs: Laboratory Results - last 24 hr 07/07/18 07/07/18 07/07/18 16:02 16:04 21:22 WBC RBC Hgb Hct MCV MCH MCHC RDW Plt Count MPV Neut % (Auto) Lymph % (Auto) [place] % (Auto) Eos % (Auto) Baso % (Auto) Neut # (Auto) Lymph # (Auto) [place] # (Auto) Eos # (Auto) Baso # (Auto) Puncture Site Rra pCO2 69 H pO2 84 HCO3 36.2 H ABG pH 7.40 ABG Total CO2 44.8 H ABG O2 Saturation 97.8 ABG Base Excess 14.5 H Donta Test Pos A-a O2 Difference 29.0 Respiratory Index 0.3 FiO2 28 Inspiratory BiPAP 20 Expiratory BiPAP 10 Sodium Potassium Chloride Carbon Dioxide Anion Gap BUN Creatinine Est GFR ( Amer) Est GFR (Non-Af Amer) POC Glucose (mg/dL) 260 H 245 H Random Glucose Calcium Phosphorus Magnesium Total Bilirubin AST ALT Alkaline Phosphatase Total Protein Albumin Globulin Albumin/Globulin Ratio 07/08/18 07/08/18 07/08/18 06:30 06:32 11:01 WBC 7.5 RBC 3.92 Hgb 10.9 L Hct 34.5 MCV 88.1 MCH 27.9 MCHC 31.7 L RDW 15.5 H Plt Count 186 MPV 8.8 Neut % (Auto) 86.2 H Lymph % (Auto) 10.3 L [place] % (Auto) 3.3 Eos % (Auto) 0.0 Baso % (Auto) 0.2 Neut # (Auto) 6.4 Lymph # (Auto) 0.8 L [place] # (Auto) 0.2 Eos # (Auto) 0.0 Baso # (Auto) 0.0 Puncture Site pCO2 pO2 HCO3 ABG pH ABG Total CO2 ABG O2 Saturation ABG Base Excess Donta Test A-a O2 Difference Respiratory Index FiO2 Inspiratory BiPAP Expiratory BiPAP Sodium 137 Potassium 3.9 Chloride 91 L Carbon Dioxide 37 H Anion Gap 13 BUN 32 H Creatinine 0.8 Est GFR ( Amer) > 60 Est GFR (Non-Af Amer) > 60 POC Glucose (mg/dL) 225 H Random Glucose 258 H Calcium 8.8 Phosphorus 3.1 Magnesium 2.2 Total Bilirubin 0.4 AST 12 L D ALT 18 Alkaline Phosphatase 88 Total Protein 6.4 Albumin 3.5 Globulin 2.9 Albumin/Globulin Ratio 1.2 07/08/18 16:08 WBC RBC Hgb Hct MCV MCH MCHC RDW Plt Count MPV Neut % (Auto) Lymph % (Auto) [place] % (Auto) Eos % (Auto) Baso % (Auto) Neut # (Auto) Lymph # (Auto) [place] # (Auto) Eos # (Auto) Baso # (Auto) Puncture Site pCO2 pO2 HCO3 ABG pH ABG Total CO2 ABG O2 Saturation ABG Base Excess [place] Test A-a O2 Difference Respiratory Index FiO2 Inspiratory BiPAP Expiratory BiPAP Sodium Potassium Chloride Carbon Dioxide Anion Gap BUN Creatinine Est GFR ( Amer) Est GFR (Non-Af Amer) POC Glucose (mg/dL) 311 H Random Glucose Calcium Phosphorus Magnesium Total Bilirubin AST ALT Alkaline Phosphatase Total Protein Albumin Globulin Albumin/Globulin Ratio Assessment & Plan (1) Acute respiratory failure with hypercapnia Assessment and Plan: BiPAP at night or as needed Continue nebulizer treatment Steroids Patient candidate for triligy Status: Acute Priority: High (2) COPD (chronic obstructive pulmonary disease) Status: Chronic Priority: High
[2018-07-08] MEDS: Rosuvastatin Calcium 2.5 mg Tab PO SCH (22:10)
[2018-07-08] MEDS: Insulin Detemir 100 units/ml Vial (Levemir) SC SCH (22:11)
[2018-07-09] MEDS ORDERED: Benzocaine/Menthol (Cepacol) Lozenge MT ONE (00:22)
[2018-07-09] MEDS: Albuterol-Ipratrop 3 mg / 0.5 (3 ml) UD INH SCH ×6 (01:50→20:05)
[2018-07-09] MEDS: Levothyroxine 150 MCG TAB PO SCH (06:13)
[2018-07-09 06:28] LABS: BASO % 0.2 % (0.0-2.0); HEMOGLOBIN 9.7 g/dL (11.0-16.0); LYMPH # 1.1 K/uL (1.0-4.3); LYMPH % 10.5 % (20.0-40.0); MEAN CELL VOLUME 87.1 fL (81.0-99.0); MEAN CORPUSCULAR HGB CONC 32.2 g/dL (33.0-37.0); MEAN PLATELET VOLUME 8.7 fL (7.2-11.7); MONO # 0.4 K/uL (0.0-0.8); MONO % 4.1 % (0.0-10.0); NEUT % 85.2 % (50.0-75.0); RBC 3.44 Mil/uL (3.80-5.20); RED CELL DISTRIBUTION WIDTH 15.8 % (11.5-14.5); WHITE BLOOD COUNT 10.6 K/uL (4.8-10.8)
[2018-07-09 06:35] LABS: ALB/GLOB RATIO 1.3 (1.0-2.1); ALBUMIN 3.2 g/dL (3.5-5.0); ALT/SGPT 35 U/L (9-52); AST/SGOT 18 U/L (14-36); BLOOD UREA NITROGEN 35 mg/dL (7-17); CALCIUM 8.1 mg/dl (8.6-10.4); GFR NON-AFRICAN AMERICAN 55
[2018-07-09] MEDS: (Novolin R) Insulin Human Regular 100 units/ml vial SC SCH ×4 (08:20→21:26)
[2018-07-09] MEDS: MethylPREDNISolone 40 mg Vial IVP SCH ×2 (10:08→23:06)
[2018-07-09] MEDS: Enoxaparin 40 mg Syringe SC SCH (10:08)
--- NOTE | 2018-07-09 15:01 | CP.PCM.PN ---
Subjective - Date & Time of Evaluation Date of Evaluation: 07/09/18 Time of Evaluation: 12:30 - Subjective Subjective: clinically same Objective - Vital Signs/Intake and Output Vital Signs (last 24 hours): Temp Pulse Resp BP Pulse Ox 98.5 F 75 18 145/76 96 07/09/18 07:00 07/09/18 08:50 07/09/18 07:00 07/09/18 10:07 07/09/18 07:00 Intake and Output: 07/09/18 07/09/18 06:59 18:59 Output Total 1000 Balance -1000 - Medications Medications: Current Medications Albuterol/Ipratropium (Duoneb 3 Mg/0.5 Mg (3 Ml) Ud) 3 ml INH RQ4 [facility] Last Admin: 07/09/18 11:55 Dose: 3 ml Albuterol/Ipratropium (Duoneb 3 Mg/0.5 Mg (3 Ml) Ud) 3 ml INH Q6H [facility] Last Admin: 07/09/18 11:00 Dose: Not Given Amlodipine Besylate (Norvasc) 10 mg PO DAILY [facility] Last Admin: 07/09/18 10:28 Dose: 10 mg Aspirin (Aspirin Chewable) 81 mg PO DAILY [facility] Last Admin: 07/09/18 10:06 Dose: 81 mg Carbidopa/Levodopa (Sinemet) 1 tab PO TID [facility] Last Admin: 07/09/18 14:13 Dose: 1 tab Docusate Sodium (Colace) 100 mg PO BID [facility] Last Admin: 07/09/18 10:07 Dose: 100 mg Enoxaparin Sodium (Lovenox) 40 mg SC DAILY [facility] Last Admin: 07/09/18 10:08 Dose: 40 mg Escitalopram Oxalate (Lexapro) 10 mg PO DAILY [facility] Last Admin: 07/09/18 10:28 Dose: 10 mg Famotidine (Pepcid) 20 mg PO DAILY [facility] Last Admin: 07/09/18 10:07 Dose: 20 mg Furosemide (Lasix) 40 mg PO DAILY [facility] Last Admin: 07/09/18 10:06 Dose: 40 mg Gabapentin (Neurontin) 300 mg PO BID [facility] Last Admin: 07/09/18 10:07 Dose: 300 mg Moxifloxacin HCl (Avelox Iv 400mg/250ml Ns) 400 mg in 250 mls @ 167 mls/hr IVPB Q24H [facility]; Protocol Last Admin: 07/08/18 17:39 Dose: 167 mls/hr Insulin Detemir (Levemir) 50 unit SC [facility] Last Admin: 07/08/18 22:11 Dose: 50 u Insulin Human Regular (Novolin R) 0 unit SC [facility]; Protocol Last Admin: 07/09/18 12:20 Dose: 4 units Levothyroxine Sodium (Synthroid) 150 mcg PO 0630 [facility] Last Admin: 07/09/18 06:13 Dose: 150 mcg Lisinopril (Zestril) 2.5 mg PO DAILY [facility] Last Admin: 07/09/18 10:07 Dose: 2.5 mg Magnesium Hydroxide (Milk Of Magnesia) 30 ml PO PRN PRN PRN Reason: Heartburn Methylprednisolone (Solu-Medrol) 40 mg IVP Q12 [facility] Last Admin: 07/09/18 10:08 Dose: 40 mg Metoprolol Tartrate (Lopressor) 25 mg PO BID [facility] Last Admin: 07/09/18 10:07 Dose: 25 mg Primidone (Mysoline) 100 mg PO [facility] Last Admin: 07/08/18 22:10 Dose: 100 mg Rosuvastatin Calcium (Crestor) 2.5 mg PO [facility] Last Admin: 07/08/18 22:10 Dose: 2.5 mg - Labs Labs: 07/09/18 06:16 07/09/18 06:16 PT 10.9 SECONDS (9.7-12.2) 07/07/18 10:20 INR 1.0 07/07/18 10:20 APTT 34 SECONDS (21-34) 07/07/18 10:20 - Constitutional Appears: Well - Head Exam Head Exam: ATRAUMATIC, NORMAL INSPECTION, NORMOCEPHALIC - Eye Exam Eye Exam: EOMI, Normal appearance, PERRL Pupil Exam: NORMAL ACCOMODATION, PERRL - ENT Exam ENT Exam: Mucous Membranes Moist, Normal Exam - Neck Exam Neck Exam: Full ROM, Normal Inspection. absent: Lymphadenopathy - Respiratory Exam Respiratory Exam: Decreased Breath Sounds - Cardiovascular Exam Cardiovascular Exam: REGULAR RHYTHM, +S1, +S2 - GI/Abdominal Exam GI & Abdominal Exam: Soft, Diminished Bowel Sounds - Rectal Exam Rectal Exam: Deferred
--- NOTE | 2018-07-09 16:05 | CP.PCM.PN ---
Subjective - Date & Time of Evaluation Date of Evaluation: 07/09/18 Time of Evaluation: 13:00 - Subjective Subjective: patient seen and examined Patient is is awake and responsive In no respiratory distress Afebrile Patient is off BiPAP during daytime Objective - Vital Signs/Intake and Output Vital Signs (last 24 hours): Temp Pulse Resp BP Pulse Ox 98.5 F 75 18 145/76 96 07/09/18 07:00 07/09/18 08:50 07/09/18 07:00 07/09/18 10:07 07/09/18 07:00 Intake and Output: 07/09/18 07/09/18 06:59 18:59 Output Total 1000 Balance -1000 - Medications Medications: Current Medications Albuterol/Ipratropium (Duoneb 3 Mg/0.5 Mg (3 Ml) Ud) 3 ml INH RQ4 [facility] Last Admin: 07/09/18 15:44 Dose: 3 ml Albuterol/Ipratropium (Duoneb 3 Mg/0.5 Mg (3 Ml) Ud) 3 ml INH Q6H [facility] Last Admin: 07/09/18 11:00 Dose: Not Given Amlodipine Besylate (Norvasc) 10 mg PO DAILY [facility] Last Admin: 07/09/18 10:28 Dose: 10 mg Aspirin (Aspirin Chewable) 81 mg PO DAILY [facility] Last Admin: 07/09/18 10:06 Dose: 81 mg Carbidopa/Levodopa (Sinemet) 1 tab PO TID [facility] Last Admin: 07/09/18 14:13 Dose: 1 tab Docusate Sodium (Colace) 100 mg PO BID [facility] Last Admin: 07/09/18 10:07 Dose: 100 mg Enoxaparin Sodium (Lovenox) 40 mg SC DAILY [facility] Last Admin: 07/09/18 10:08 Dose: 40 mg Escitalopram Oxalate (Lexapro) 10 mg PO DAILY [facility] Last Admin: 07/09/18 10:28 Dose: 10 mg Famotidine (Pepcid) 20 mg PO DAILY [facility] Last Admin: 07/09/18 10:07 Dose: 20 mg Furosemide (Lasix) 40 mg PO DAILY [facility] Last Admin: 07/09/18 10:06 Dose: 40 mg Gabapentin (Neurontin) 300 mg PO BID [facility] Last Admin: 07/09/18 10:07 Dose: 300 mg Moxifloxacin HCl (Avelox Iv 400mg/250ml Ns) 400 mg in 250 mls @ 167 mls/hr IVPB Q24H [facility]; Protocol Last Admin: 07/08/18 17:39 Dose: 167 mls/hr Insulin Detemir (Levemir) 50 unit SC HS [facility] Last Admin: 07/08/18 22:11 Dose: 50 u Insulin Human Regular (Novolin R) 0 unit SC [facility]; Protocol Last Admin: 07/09/18 12:20 Dose: 4 units Levothyroxine Sodium (Synthroid) 150 mcg PO 0630 [facility] Last Admin: 07/09/18 06:13 Dose: 150 mcg Lisinopril (Zestril) 2.5 mg PO DAILY [facility] Last Admin: 07/09/18 10:07 Dose: 2.5 mg Magnesium Hydroxide (Milk Of Magnesia) 30 ml PO PRN PRN PRN Reason: Heartburn Methylprednisolone (Solu-Medrol) 40 mg IVP Q12 [facility] Last Admin: 07/09/18 10:08 Dose: 40 mg Metoprolol Tartrate (Lopressor) 25 mg PO BID [facility] Last Admin: 07/09/18 10:07 Dose: 25 mg Primidone (Mysoline) 100 mg PO [facility] Last Admin: 07/08/18 22:10 Dose: 100 mg Rosuvastatin Calcium (Crestor) 2.5 mg PO [facility] Last Admin: 07/08/18 22:10 Dose: 2.5 mg - Labs Labs: 07/09/18 06:16 07/09/18 06:16 PT 10.9 SECONDS (9.7-12.2) 07/07/18 10:20 INR 1.0 07/07/18 10:20 APTT 34 SECONDS (21-34) 07/07/18 10:20 - Head Exam Head Exam: ATRAUMATIC, NORMOCEPHALIC - Eye Exam Eye Exam: Normal appearance - ENT Exam ENT Exam: Mucous Membranes Moist - Neck Exam Neck Exam: Normal Inspection - Respiratory Exam Respiratory Exam: Decreased Breath Sounds - Cardiovascular Exam Cardiovascular Exam: REGULAR RHYTHM - GI/Abdominal Exam GI & Abdominal Exam: Soft Assessment and Plan (1) Acute respiratory failure with hypercapnia Assessment & Plan: Patient is either noncompliant or not responding to BiPAP consider Trilogy Taper steroids nebulizer treatment Status: Acute (2) COPD (chronic obstructive pulmonary disease) Status: Chronic
[2018-07-09] MEDS: Moxifloxacin IV 400mg/250ml NS 400 MG/250 ML BAG IVPB SCH (18:08)
[2018-07-09] MEDS: Benzocaine/Menthol (Cepacol) Lozenge MT PRN (19:31)
[2018-07-09] MEDS: Rosuvastatin Calcium 2.5 mg Tab PO SCH (23:05)
[2018-07-09] MEDS: Insulin Detemir 100 units/ml Vial (Levemir) SC SCH (23:06)
[2018-07-10] MEDS: Albuterol-Ipratrop 3 mg / 0.5 (3 ml) UD INH SCH ×7 (00:35→19:26)
[2018-07-10] MEDS: Levothyroxine 150 MCG TAB PO SCH (06:31)
[2018-07-10] MEDS: (Novolin R) Insulin Human Regular 100 units/ml vial SC SCH ×4 (08:11→21:37)
[2018-07-10 08:14] LABS: BASO % 0.1 % (0.0-2.0); HEMOGLOBIN 9.9 g/dL (11.0-16.0); LYMPH # 0.9 K/uL (1.0-4.3); LYMPH % 8.3 % (20.0-40.0); MEAN CELL VOLUME 86.7 fL (81.0-99.0); MEAN CORPUSCULAR HEMOGLOBIN 28.3 pg (27.0-31.0); MEAN CORPUSCULAR HGB CONC 32.6 g/dL (33.0-37.0); MONO # 0.4 K/uL (0.0-0.8); MONO % 3.8 % (0.0-10.0); NEUT # 9.3 K/uL (1.8-7.0); NEUT % 87.8 % (50.0-75.0); PLATELET COUNT 194 K/uL (130-400); RBC 3.49 Mil/uL (3.80-5.20); RED CELL DISTRIBUTION WIDTH 15.8 % (11.5-14.5); WHITE BLOOD COUNT 10.6 K/uL (4.8-10.8)
[2018-07-10 08:46] LABS: ALB/GLOB RATIO 1.3 (1.0-2.1); ALBUMIN 3.4 g/dL (3.5-5.0); ALT/SGPT 37 U/L (9-52); AST/SGOT 18 U/L (14-36); BLOOD UREA NITROGEN 23 mg/dL (7-17); CALCIUM 8.2 mg/dl (8.6-10.4); GFR NON-AFRICAN AMERICAN > 60
[2018-07-10] MEDS: Benzocaine/Menthol (Cepacol) Lozenge MT PRN (09:33)
--- NOTE | 2018-07-10 09:49 | CP.PCM.PN ---
Subjective - Date & Time of Evaluation Date of Evaluation: 07/10/18 Time of Evaluation: 08:20 - Subjective Subjective: Patient seen and examined Complaining of painin both legs Afebrile BiPAP at night Breathing better Afebrile Taper steroids Nebulizer treatment Patient is requesting for dentist Objective - Vital Signs/Intake and Output Vital Signs (last 24 hours): Temp Pulse Resp BP Pulse Ox 98.2 F 60 20 128/70 97 07/09/18 23:40 07/09/18 23:40 07/09/18 23:40 07/10/18 09:25 07/09/18 23:40 Intake and Output: 07/10/18 07/10/18 06:59 18:59 Output Total 2250 Balance -2250 - Medications Medications: Current Medications Albuterol/Ipratropium (Duoneb 3 Mg/0.5 Mg (3 Ml) Ud) 3 ml INH RQ4 [facility] Last Admin: 07/10/18 07:37 Dose: 3 ml Albuterol/Ipratropium (Duoneb 3 Mg/0.5 Mg (3 Ml) Ud) 3 ml INH Q6H [facility] Last Admin: 07/09/18 11:00 Dose: Not Given Amlodipine Besylate (Norvasc) 10 mg PO DAILY [facility] Last Admin: 07/10/18 09:23 Dose: 10 mg Aspirin (Aspirin Chewable) 81 mg PO DAILY [facility] Last Admin: 07/10/18 09:24 Dose: 81 mg Benzocaine/Menthol (Cepacol Sore Throat) 1 usama MT RQ4 PRN PRN Reason: Sore Throat Last Admin: 07/10/18 09:33 Dose: 1 usama Carbidopa/Levodopa (Sinemet) 1 tab PO TID [facility] Last Admin: 07/10/18 09:23 Dose: 1 tab Docusate Sodium (Colace) 100 mg PO BID [facility] Last Admin: 07/10/18 09:23 Dose: 100 mg Enoxaparin Sodium (Lovenox) 40 mg SC DAILY [facility] Last Admin: 07/09/18 10:08 Dose: 40 mg Escitalopram Oxalate (Lexapro) 10 mg PO DAILY [facility] Last Admin: 07/10/18 09:24 Dose: 10 mg Famotidine (Pepcid) 20 mg PO DAILY [facility] Last Admin: 11/22/18 09:23 Dose: 20 mg Furosemide (Lasix) 40 mg PO DAILY [facility] Last Admin: 07/10/18 09:22 Dose: 40 mg Gabapentin (Neurontin) 300 mg PO BID [facility] Last Admin: 07/10/18 09:23 Dose: 300 mg Moxifloxacin HCl (Avelox Iv 400mg/250ml Ns) 400 mg in 250 mls @ 167 mls/hr IVPB Q24H [facility]; Protocol Last Admin: 07/09/18 18:08 Dose: 167 mls/hr Insulin Detemir (Levemir) 50 unit SC [facility] Last Admin: 07/09/18 23:06 Dose: 50 units Insulin Human Regular (Novolin R) 0 unit SC [facility]; Protocol Last Admin: 07/10/18 08:11 Dose: 4 units Levothyroxine Sodium (Synthroid) 150 mcg PO 0630 [facility] Last Admin: 07/10/18 06:31 Dose: 150 mcg Lisinopril (Zestril) 2.5 mg PO DAILY [facility] Last Admin: 07/10/18 09:24 Dose: 2.5 mg Magnesium Hydroxide (Milk Of Magnesia) 30 ml PO PRN PRN PRN Reason: Heartburn Methylprednisolone (Solu-Medrol) 40 mg IVP Q12 [facility] Last Admin: 07/09/18 23:06 Dose: 40 mg Metoprolol Tartrate (Lopressor) 25 mg PO BID [facility] Last Admin: 07/10/18 09:25 Dose: 25 mg Primidone (Mysoline) 100 mg PO [facility] Last Admin: 07/09/18 23:05 Dose: 100 mg Rosuvastatin Calcium (Crestor) 2.5 mg PO [facility] Last Admin: 07/09/18 23:05 Dose: 2.5 mg - Labs Labs: 07/10/18 06:58 07/10/18 06:58 PT 10.9 SECONDS (9.7-12.2) 07/07/18 10:20 INR 1.0 07/07/18 10:20 APTT 34 SECONDS (21-34) 07/07/18 10:20 Assessment and Plan (1) Acute respiratory failure with hypercapnia Status: Acute (2) COPD (chronic obstructive pulmonary disease) Status: Chronic
[2018-07-10] MEDS: Enoxaparin 40 mg Syringe SC SCH (10:00)
[2018-07-10 11:11] LABS: BANDS 1 % (0-2); LYMPHOCYTE 8 % (20-40); MONOCYTE 6 % (0-10); NEUTROPHIL 85 % (50-75); PLATELET ESTIMATE NORMAL (NORMAL); TOTAL CELLS COUNTED 100
[2018-07-10 11:12] LABS: ANISOCYTOSIS MODERATE; HYPOCHROMIC SLIGHT; POIKILOCYTOSIS SLIGHT
[2018-07-10 11:13] LABS: LARGE PLATELETS PRESENT; OVALOCYTES SLIGHT; POLYCHROMIC SLIGHT; TOXIC GRANULATION PRESENT
[2018-07-10] MEDS: MethylPREDNISolone 40 mg Vial IVP SCH ×2 (15:11→21:35)
[2018-07-10] MEDS: Moxifloxacin IV 400mg/250ml NS 400 MG/250 ML BAG IVPB SCH (17:53)
--- NOTE | 2018-07-10 19:48 | CP.PCM.PN ---
Subjective - Date & Time of Evaluation Date of Evaluation: 07/10/18 Time of Evaluation: 12:15 - Subjective Subjective: clinically same Objective - Vital Signs/Intake and Output Vital Signs (last 24 hours): Temp Pulse Resp BP Pulse Ox 98.1 F 74 22 144/66 97 07/10/18 15:41 07/10/18 15:41 07/10/18 15:41 07/10/18 17:53 07/10/18 15:41 - Medications Medications: Current Medications Albuterol/Ipratropium (Duoneb 3 Mg/0.5 Mg (3 Ml) Ud) 3 ml INH RQ4 [facility] Last Admin: 07/10/18 19:26 Dose: 3 ml Albuterol/Ipratropium (Duoneb 3 Mg/0.5 Mg (3 Ml) Ud) 3 ml INH Q6H [facility] Last Admin: 07/10/18 11:01 Dose: Not Given Amlodipine Besylate (Norvasc) 10 mg PO DAILY [facility] Last Admin: 07/10/18 09:23 Dose: 10 mg Aspirin (Aspirin Chewable) 81 mg PO DAILY [facility] Last Admin: 07/10/18 09:24 Dose: 81 mg Benzocaine/Menthol (Cepacol Sore Throat) 1 usama MT RQ4 PRN PRN Reason: Sore Throat Last Admin: 07/10/18 09:33 Dose: 1 usama Carbidopa/Levodopa (Sinemet) 1 tab PO TID [facility] Last Admin: 07/10/18 17:54 Dose: 1 tab Docusate Sodium (Colace) 100 mg PO BID [facility] Last Admin: 07/10/18 17:53 Dose: 100 mg Enoxaparin Sodium (Lovenox) 40 mg SC DAILY [facility] Last Admin: 07/10/18 10:00 Dose: 40 mg Escitalopram Oxalate (Lexapro) 10 mg PO DAILY [facility] Last Admin: 07/10/18 09:24 Dose: 10 mg Famotidine (Pepcid) 20 mg PO DAILY [facility] Last Admin: 07/10/18 09:23 Dose: 20 mg Furosemide (Lasix) 40 mg PO DAILY [facility] Last Admin: 07/10/18 09:22 Dose: 40 mg Gabapentin (Neurontin) 300 mg PO BID [facility] Last Admin: 07/10/18 17:54 Dose: 300 mg Moxifloxacin HCl (Avelox Iv 400mg/250ml Ns) 400 mg in 250 mls @ 167 mls/hr IVPB Q24H [facility]; Protocol Last Admin: 07/10/18 17:53 Dose: 167 mls/hr Insulin Detemir (Levemir) 50 unit SC [facility] Last Admin: 07/09/18 23:06 Dose: 50 units Insulin Human Regular (Novolin R) 0 unit SC [facility]; Protocol Last Admin: 07/10/18 17:00 Dose: 6 units Levothyroxine Sodium (Synthroid) 150 mcg PO 0630 [facility] Last Admin: 07/10/18 06:31 Dose: 150 mcg Lisinopril (Zestril) 2.5 mg PO DAILY [facility] Last Admin: 07/10/18 09:24 Dose: 2.5 mg Magnesium Hydroxide (Milk Of Magnesia) 30 ml PO PRN PRN PRN Reason: Heartburn Methylprednisolone (Solu-Medrol) 40 mg IVP Q12 [facility] Last Admin: 07/10/18 15:11 Dose: 40 mg Metoprolol Tartrate (Lopressor) 25 mg PO BID [facility] Last Admin: 07/10/18 17:53 Dose: 25 mg Primidone (Mysoline) 100 mg PO [facility] Last Admin: 07/09/18 23:05 Dose: 100 mg Rosuvastatin Calcium (Crestor) 2.5 mg PO [facility] Last Admin: 07/09/18 23:05 Dose: 2.5 mg - Labs Labs: 07/10/18 06:58 07/10/18 06:58 PT 10.9 SECONDS (9.7-12.2) 07/07/18 10:20 INR 1.0 07/07/18 10:20 APTT 34 SECONDS (21-34) 07/07/18 10:20 - Constitutional Appears: Well - Head Exam Head Exam: ATRAUMATIC, NORMAL INSPECTION, NORMOCEPHALIC - Eye Exam Eye Exam: EOMI, Normal appearance, PERRL Pupil Exam: NORMAL ACCOMODATION, PERRL - ENT Exam ENT Exam: Mucous Membranes Moist, Normal Exam - Neck Exam Neck Exam: Full ROM, Normal Inspection. absent: Lymphadenopathy - Respiratory Exam Respiratory Exam: Decreased Breath Sounds - Cardiovascular Exam Cardiovascular Exam: REGULAR RHYTHM, +S1, +S2 - GI/Abdominal Exam GI & Abdominal Exam: Soft, Diminished Bowel Sounds - Rectal Exam Rectal Exam: Deferred
[2018-07-10] MEDS: Rosuvastatin Calcium 2.5 mg Tab PO SCH (21:35)
[2018-07-10] MEDS: Insulin Detemir 100 units/ml Vial (Levemir) SC SCH (21:36)
[2018-07-11] MEDS: Benzocaine/Menthol (Cepacol) Lozenge MT PRN ×2 (00:05→08:53)
[2018-07-11] MEDS: Albuterol-Ipratrop 3 mg / 0.5 (3 ml) UD INH SCH ×8 (00:17→20:05)
[2018-07-11] MEDS: Levothyroxine 150 MCG TAB PO SCH (06:17)
[2018-07-11 08:08] LABS: ALB/GLOB RATIO 1.2 (1.0-2.1); ALBUMIN 3.2 g/dL (3.5-5.0); ALT/SGPT 38 U/L (9-52); AST/SGOT 13 U/L (14-36); BLOOD UREA NITROGEN 25 mg/dL (7-17); CALCIUM 7.8 mg/dl (8.6-10.4); GFR NON-AFRICAN AMERICAN > 60
[2018-07-11] MEDS: (Novolin R) Insulin Human Regular 100 units/ml vial SC SCH ×4 (08:24→22:06)
[2018-07-11] MEDS: Enoxaparin 40 mg Syringe SC SCH ×2 (11:12→11:28)
[2018-07-11] MEDS: MethylPREDNISolone 40 mg Vial IVP SCH ×2 (11:13→21:50)
[2018-07-11 11:42] LABS: BASO # 0.1 K/uL (0.0-0.2); BASO % 0.4 % (0.0-2.0); EOS % 0.1 % (0.0-4.0); HEMOGLOBIN 10.6 g/dL (11.0-16.0); LYMPH # 1.8 K/uL (1.0-4.3); LYMPH % 13.3 % (20.0-40.0); MEAN CELL VOLUME 87.2 fL (81.0-99.0); MEAN CORPUSCULAR HEMOGLOBIN 28.2 pg (27.0-31.0); MEAN CORPUSCULAR HGB CONC 32.4 g/dL (33.0-37.0); MEAN PLATELET VOLUME 9.2 fL (7.2-11.7); MONO # 0.9 K/uL (0.0-0.8); MONO % 6.2 % (0.0-10.0); NEUT # 11.1 K/uL (1.8-7.0); RBC 3.75 Mil/uL (3.80-5.20); RED CELL DISTRIBUTION WIDTH 15.7 % (11.5-14.5); WHITE BLOOD COUNT 13.9 K/uL (4.8-10.8)
[2018-07-11] MEDS ORDERED: Aluminum Hydroxide/Magnesium Hydroxide Susp (30 mL) PO ONE ×2 (12:15→14:45)
--- NOTE | 2018-07-11 18:55 | CP.PCM.PN ---
Subjective - Date & Time of Evaluation Date of Evaluation: 07/11/18 Time of Evaluation: 12:15 - Subjective Subjective: clinically same Objective - Vital Signs/Intake and Output Vital Signs (last 24 hours): Temp Pulse Resp BP Pulse Ox 98.9 F 59 L 20 130/87 98 07/11/18 15:10 07/11/18 15:50 07/11/18 15:10 07/11/18 18:28 07/11/18 15:10 - Medications Medications: Current Medications Acetaminophen (Tylenol 325mg Tab) 650 mg PO Q6 PRN PRN Reason: Headache Last Admin: 07/11/18 14:47 Dose: 650 mg Albuterol/Ipratropium (Duoneb 3 Mg/0.5 Mg (3 Ml) Ud) 3 ml INH RQ4 [facility] Last Admin: 07/11/18 15:44 Dose: 3 ml Albuterol/Ipratropium (Duoneb 3 Mg/0.5 Mg (3 Ml) Ud) 3 ml INH Q6H [facility] Last Admin: 07/11/18 11:00 Dose: Not Given Amlodipine Besylate (Norvasc) 10 mg PO DAILY [facility] Last Admin: 07/11/18 11:13 Dose: 10 mg Aspirin (Aspirin Chewable) 81 mg PO DAILY [facility] Last Admin: 07/11/18 11:16 Dose: 81 mg Benzocaine/Menthol (Cepacol Sore Throat) 1 usama MT RQ4 PRN PRN Reason: Sore Throat Last Admin: 07/11/18 08:53 Dose: 1 usama Carbidopa/Levodopa (Sinemet) 1 tab PO TID [facility] Last Admin: 07/11/18 18:30 Dose: 1 tab Docusate Sodium (Colace) 100 mg PO BID [facility] Last Admin: 07/11/18 18:27 Dose: 100 mg Enoxaparin Sodium (Lovenox) 40 mg SC DAILY [facility] Last Admin: 07/11/18 11:28 Dose: Not Given Escitalopram Oxalate (Lexapro) 10 mg PO DAILY [facility] Last Admin: 07/11/18 11:13 Dose: 10 mg Famotidine (Pepcid) 20 mg PO DAILY [facility] Last Admin: 07/11/18 11:16 Dose: 20 mg Furosemide (Lasix) 40 mg PO DAILY [facility] Last Admin: 07/11/18 11:15 Dose: 40 mg Gabapentin (Neurontin) 300 mg PO BID [facility] Last Admin: 07/11/18 18:29 Dose: 300 mg Moxifloxacin HCl (Avelox Iv 400mg/250ml Ns) 400 mg in 250 mls @ 167 mls/hr IVPB Q24H [facility]; Protocol Last Admin: 07/10/18 17:53 Dose: 167 mls/hr Insulin Detemir (Levemir) 50 unit SC [facility] Last Admin: 07/10/18 21:36 Dose: 50 units Insulin Human Regular (Novolin R) 0 unit SC [facility]; Protocol Last Admin: 07/11/18 18:29 Dose: 3 units Levothyroxine Sodium (Synthroid) 150 mcg PO 0630 [facility] Last Admin: 07/11/18 06:17 Dose: 150 mcg Lisinopril (Zestril) 2.5 mg PO DAILY [facility] Last Admin: 07/11/18 11:13 Dose: 2.5 mg Magnesium Hydroxide (Milk Of Magnesia) 30 ml PO PRN PRN PRN Reason: Heartburn Methylprednisolone (Solu-Medrol) 40 mg IVP Q12 [facility] Last Admin: 07/11/18 11:13 Dose: 40 mg Metoprolol Tartrate (Lopressor) 25 mg PO BID [facility] Last Admin: 07/11/18 18:28 Dose: 25 mg Primidone (Mysoline) 100 mg PO [facility] Last Admin: 07/10/18 21:35 Dose: 100 mg Rosuvastatin Calcium (Crestor) 2.5 mg PO [facility] Last Admin: 07/10/18 21:35 Dose: 2.5 mg - Labs Labs: 07/11/18 11:31 07/11/18 07:29 PT 10.9 SECONDS (9.7-12.2) 07/07/18 10:20 INR 1.0 07/07/18 10:20 APTT 34 SECONDS (21-34) 07/07/18 10:20 - Constitutional Appears: Well - Head Exam Head Exam: ATRAUMATIC, NORMAL INSPECTION, NORMOCEPHALIC - Eye Exam Eye Exam: EOMI, Normal appearance, PERRL Pupil Exam: NORMAL ACCOMODATION, PERRL - ENT Exam ENT Exam: Mucous Membranes Moist, Normal Exam - Neck Exam Neck Exam: Full ROM, Normal Inspection. absent: Lymphadenopathy - Respiratory Exam Respiratory Exam: Decreased Breath Sounds - Cardiovascular Exam Cardiovascular Exam: REGULAR RHYTHM, +S1, +S2 - GI/Abdominal Exam GI & Abdominal Exam: Soft, Diminished Bowel Sounds - Rectal Exam Rectal Exam: Deferred
--- NOTE | 2018-07-11 19:34 | CP.PCM.PN ---
Subjective - Date & Time of Evaluation Date of Evaluation: 07/11/18 Time of Evaluation: 18:40 - Subjective Subjective: patient seen and examined Patient is off BiPAP Denies shortness of breath Complaining of pain in legs secondary to neuropathy Transfer to correction Patient advised to use BiPAP at night Objective - Vital Signs/Intake and Output Vital Signs (last 24 hours): Temp Pulse Resp BP Pulse Ox 98.9 F 59 L 20 130/87 98 07/11/18 15:10 07/11/18 15:50 07/11/18 15:10 07/11/18 18:28 07/11/18 15:10 - Medications Medications: Current Medications Acetaminophen (Tylenol 325mg Tab) 650 mg PO Q6 PRN PRN Reason: Headache Last Admin: 07/11/18 14:47 Dose: 650 mg Albuterol/Ipratropium (Duoneb 3 Mg/0.5 Mg (3 Ml) Ud) 3 ml INH RQ4 [facility] Last Admin: 07/11/18 15:44 Dose: 3 ml Albuterol/Ipratropium (Duoneb 3 Mg/0.5 Mg (3 Ml) Ud) 3 ml INH Q6H [facility] Last Admin: 07/11/18 11:00 Dose: Not Given Amlodipine Besylate (Norvasc) 10 mg PO DAILY [facility] Last Admin: 07/11/18 11:13 Dose: 10 mg Aspirin (Aspirin Chewable) 81 mg PO DAILY [facility] Last Admin: 07/11/18 11:16 Dose: 81 mg Benzocaine/Menthol (Cepacol Sore Throat) 1 usama MT RQ4 PRN PRN Reason: Sore Throat Last Admin: 07/11/18 08:53 Dose: 1 usama Carbidopa/Levodopa (Sinemet) 1 tab PO TID [facility] Last Admin: 07/11/18 18:30 Dose: 1 tab Docusate Sodium (Colace) 100 mg PO BID [facility] Last Admin: 07/11/18 18:27 Dose: 100 mg Enoxaparin Sodium (Lovenox) 40 mg SC DAILY [facility] Last Admin: 07/11/18 11:28 Dose: Not Given Escitalopram Oxalate (Lexapro) 10 mg PO DAILY [facility] Last Admin: 07/11/18 11:13 Dose: 10 mg Famotidine (Pepcid) 20 mg PO DAILY [facility] Last Admin: 07/11/18 11:16 Dose: 20 mg Furosemide (Lasix) 40 mg PO DAILY [facility] Last Admin: 07/11/18 11:15 Dose: 40 mg Gabapentin (Neurontin) 300 mg PO BID [facility] Last Admin: 07/11/18 18:29 Dose: 300 mg Moxifloxacin HCl (Avelox Iv 400mg/250ml Ns) 400 mg in 250 mls @ 167 mls/hr IVPB Q24H [facility]; Protocol Last Admin: 07/10/18 17:53 Dose: 167 mls/hr Insulin Detemir (Levemir) 50 unit SC [facility] Last Admin: 07/10/18 21:36 Dose: 50 units Insulin Human Regular (Novolin R) 0 unit SC [facility]; Protocol Last Admin: 07/11/18 18:29 Dose: 3 units Levothyroxine Sodium (Synthroid) 150 mcg PO 0630 [facility] Last Admin: 07/11/18 06:17 Dose: 150 mcg Lisinopril (Zestril) 2.5 mg PO DAILY [facility] Last Admin: 07/11/18 11:13 Dose: 2.5 mg Magnesium Hydroxide (Milk Of Magnesia) 30 ml PO PRN PRN PRN Reason: Heartburn Methylprednisolone (Solu-Medrol) 40 mg IVP Q12 [facility] Last Admin: 07/11/18 11:13 Dose: 40 mg Metoprolol Tartrate (Lopressor) 25 mg PO BID [facility] Last Admin: 07/11/18 18:28 Dose: 25 mg Primidone (Mysoline) 100 mg PO [facility] Last Admin: 07/10/18 21:35 Dose: 100 mg Rosuvastatin Calcium (Crestor) 2.5 mg PO [facility] Last Admin: 07/10/18 21:35 Dose: 2.5 mg - Labs Labs: 07/11/18 11:31 07/11/18 07:29 PT 10.9 SECONDS (9.7-12.2) 07/07/18 10:20 INR 1.0 07/07/18 10:20 APTT 34 SECONDS (21-34) 07/07/18 10:20 Assessment and Plan (1) Acute respiratory failure with hypercapnia Status: Acute (2) COPD (chronic obstructive pulmonary disease) Status: Chronic
[2018-07-11] MEDS: Moxifloxacin IV 400mg/250ml NS 400 MG/250 ML BAG IVPB SCH (20:06)
[2018-07-11] MEDS: Rosuvastatin Calcium 2.5 mg Tab PO SCH (21:49)
[2018-07-11] MEDS: Insulin Detemir 100 units/ml Vial (Levemir) SC SCH (21:59)
[2018-07-12] MEDS: Benzocaine/Menthol (Cepacol) Lozenge MT PRN ×3 (00:10→09:23)
[2018-07-12] MEDS: Albuterol-Ipratrop 3 mg / 0.5 (3 ml) UD INH SCH ×5 (00:45→11:19)
[2018-07-12] MEDS: Levothyroxine 150 MCG TAB PO SCH (06:19)
[2018-07-12 08:26] LABS: BASO % 0.4 % (0.0-2.0); EOS % 0.1 % (0.0-4.0); HEMOGLOBIN 10.8 g/dL (11.0-16.0); LYMPH # 1.3 K/uL (1.0-4.3); MEAN CELL VOLUME 86.8 fL (81.0-99.0); MEAN CORPUSCULAR HEMOGLOBIN 27.9 pg (27.0-31.0); MEAN CORPUSCULAR HGB CONC 32.1 g/dL (33.0-37.0); MEAN PLATELET VOLUME 8.8 fL (7.2-11.7); MONO # 0.5 K/uL (0.0-0.8); MONO % 3.9 % (0.0-10.0); NEUT # 10.3 K/uL (1.8-7.0); NEUT % 84.6 % (50.0-75.0); NRBC % 0.2 % (0.0-2.0); RBC 3.87 Mil/uL (3.80-5.20); RED CELL DISTRIBUTION WIDTH 15.7 % (11.5-14.5); WHITE BLOOD COUNT 12.1 K/uL (4.8-10.8)
[2018-07-12 08:56] LABS: ALB/GLOB RATIO 1.4 (1.0-2.1); ALBUMIN 3.8 g/dL (3.5-5.0); ALT/SGPT 36 U/L (9-52); AST/SGOT 19 U/L (14-36); BLOOD UREA NITROGEN 29 mg/dL (7-17); CALCIUM 8.5 mg/dl (8.6-10.4); GFR NON-AFRICAN AMERICAN > 60
[2018-07-12] MEDS: (Novolin R) Insulin Human Regular 100 units/ml vial SC SCH ×3 (09:21→16:56)
[2018-07-12] MEDS: Enoxaparin 40 mg Syringe SC SCH ×2 (09:21→09:35)
[2018-07-12] MEDS: MethylPREDNISolone 40 mg Vial IVP SCH (09:22)
--- NOTE | 2018-07-12 12:39 | CP.PCM.PN ---
Subjective - Date & Time of Evaluation Date of Evaluation: 07/12/18 Time of Evaluation: 12:10 - Subjective Subjective: Patient seen today, denies any chest pain, sob, dizziness, abdominal pain, c/o sore throat a febrile vss reviewed- stable - wbc - trending down oxygen via nasal canula and saturating -97-98% No overnight events reported by RN Objective - Vital Signs/Intake and Output Vital Signs (last 24 hours): Temp Pulse Resp BP Pulse Ox 97.9 F 74 18 120/81 97 07/12/18 07:00 07/12/18 07:00 07/12/18 07:00 07/12/18 09:22 07/12/18 07:00 Intake and Output: 07/12/18 07/12/18 06:59 18:59 Output Total 1100 Balance -1100 - Medications Medications: Current Medications Acetaminophen (Tylenol 325mg Tab) 650 mg PO Q6 PRN PRN Reason: Headache Last Admin: 07/12/18 00:09 Dose: 650 mg Albuterol/Ipratropium (Duoneb 3 Mg/0.5 Mg (3 Ml) Ud) 3 ml INH RQ4 [facility] Last Admin: 07/12/18 11:19 Dose: 3 ml Albuterol/Ipratropium (Duoneb 3 Mg/0.5 Mg (3 Ml) Ud) 3 ml INH Q6H [facility] Last Admin: 07/12/18 11:18 Dose: Not Given Amlodipine Besylate (Norvasc) 10 mg PO DAILY [facility] Last Admin: 07/12/18 09:22 Dose: 10 mg Aspirin (Aspirin Chewable) 81 mg PO DAILY [facility] Last Admin: 07/12/18 09:21 Dose: 81 mg Benzocaine/Menthol (Cepacol Sore Throat) 1 usama MT RQ4 PRN PRN Reason: Sore Throat Last Admin: 07/12/18 09:23 Dose: 1 usama Carbidopa/Levodopa (Sinemet) 1 tab PO TID [facility] Last Admin: 07/12/18 09:22 Dose: 1 tab Docusate Sodium (Colace) 100 mg PO BID [facility] Last Admin: 07/12/18 09:21 Dose: 100 mg Enoxaparin Sodium (Lovenox) 40 mg SC DAILY [facility] Last Admin: 07/12/18 09:35 Dose: Not Given Escitalopram Oxalate (Lexapro) 10 mg PO DAILY [facility] Last Admin: 07/12/18 09:21 Dose: 10 mg Famotidine (Pepcid) 20 mg PO DAILY [facility] Last Admin: 07/12/18 09:21 Dose: 20 mg Furosemide (Lasix) 40 mg PO DAILY [facility] Last Admin: 07/12/18 09:22 Dose: 40 mg Gabapentin (Neurontin) 300 mg PO BID [facility] Last Admin: 07/12/18 09:21 Dose: 300 mg Moxifloxacin HCl (Avelox Iv 400mg/250ml Ns) 400 mg in 250 mls @ 167 mls/hr IVPB Q24H [facility]; Protocol Last Admin: 07/11/18 20:06 Dose: 167 mls/hr Insulin Detemir (Levemir) 50 unit SC [facility] Last Admin: 07/11/18 21:59 Dose: 50 units Insulin Human Regular (Novolin R) 0 unit SC [facility]; Protocol Last Admin: 07/12/18 09:21 Dose: 4 units Levothyroxine Sodium (Synthroid) 150 mcg PO 0630 [facility] Last Admin: 07/12/18 06:19 Dose: 150 mcg Lisinopril (Zestril) 2.5 mg PO DAILY [facility] Last Admin: 07/12/18 09:21 Dose: 2.5 mg Magnesium Hydroxide (Milk Of Magnesia) 30 ml PO PRN PRN PRN Reason: Heartburn Methylprednisolone (Solu-Medrol) 40 mg IVP Q12 [facility] Last Admin: 07/12/18 09:22 Dose: 40 mg Metoprolol Tartrate (Lopressor) 25 mg PO BID [facility] Last Admin: 07/12/18 09:22 Dose: 25 mg Primidone (Mysoline) 100 mg PO [facility] Last Admin: 07/11/18 21:59 Dose: 100 mg Rosuvastatin Calcium (Crestor) 2.5 mg PO [facility] Last Admin: 07/11/18 21:49 Dose: 2.5 mg - Labs Labs: 07/12/18 08:13 07/12/18 08:13 PT 10.9 SECONDS (9.7-12.2) 07/07/18 10:20 INR 1.0 07/07/18 10:20 APTT 34 SECONDS (21-34) 07/07/18 10:20 - Constitutional Appears: Well, Non-toxic, No Acute Distress - Respiratory Exam Respiratory Exam: Decreased Breath Sounds, Rhonchi, NORMAL BREATHING PATTERN - Neurological Exam Neurological Exam: Alert, Awake, Oriented x3 Assessment and Plan - Assessment and Plan (Free Text) Assessment: A/P 73 year old female ( halfway resident ) with a PMHx of HTN, COPD, Anemia, Anxiety, Arthritis, Bipolar disorder, Dementia, Depression, Parkinson's disease, Hyperthyroidism, and Sleep Apnea admitted with worsening shortness of breath, exc. COPD and Acute respiratory failure with hypercapnia patient was placed on BIPAP and RESP status improved Patient was off bipap during day times and o2 sat . maintained 96-97% on nasal canula seen by Dr. Romeo cleared for discharge back to [place] from pulmonary standpoint and continue BIPAP at night time D/w Dr. Bowers cleared for discharge home today and and will follow the patient at [facility] Discharge plan discussed with patient , who understands and agrees with plan
[2018-07-12 15:36] VITALS: BP 143/72; PULSE 73; RESP 20; TEMP 98.3; O2SAT 96
--- NOTE | 2018-07-12 19:24 | CP.PCM.PN ---
Subjective - Date & Time of Evaluation Date of Evaluation: 07/12/18 Time of Evaluation: 12:15 - Subjective Subjective: clinically same Objective - Vital Signs/Intake and Output Vital Signs (last 24 hours): Temp Pulse Resp BP Pulse Ox 98.3 F 73 20 143/72 96 07/12/18 15:35 07/12/18 15:35 07/12/18 15:35 07/12/18 15:35 07/12/18 15:35 Intake and Output: 07/12/18 07/13/18 18:59 06:59 Intake Total 300 Output Total 1000 Balance -700 - Medications Medications: Current Medications Acetaminophen (Tylenol 325mg Tab) 650 mg PO Q6 PRN PRN Reason: Headache Last Admin: 07/12/18 00:09 Dose: 650 mg Albuterol/Ipratropium (Duoneb 3 Mg/0.5 Mg (3 Ml) Ud) 3 ml INH RQ4 [facility] Last Admin: 07/12/18 11:19 Dose: 3 ml Amlodipine Besylate (Norvasc) 10 mg PO DAILY [facility] Last Admin: 07/12/18 09:22 Dose: 10 mg Aspirin (Aspirin Chewable) 81 mg PO DAILY [facility] Last Admin: 07/12/18 09:21 Dose: 81 mg Benzocaine/Menthol (Cepacol Sore Throat) 1 usama MT RQ4 PRN PRN Reason: Sore Throat Last Admin: 07/12/18 09:23 Dose: 1 usama Carbidopa/Levodopa (Sinemet) 1 tab PO TID [facility] Last Admin: 07/12/18 14:33 Dose: 1 tab Docusate Sodium (Colace) 100 mg PO BID [facility] Last Admin: 07/12/18 09:21 Dose: 100 mg Enoxaparin Sodium (Lovenox) 40 mg SC DAILY [facility] Last Admin: 07/12/18 09:35 Dose: Not Given Escitalopram Oxalate (Lexapro) 10 mg PO DAILY [facility] Last Admin: 07/12/18 09:21 Dose: 10 mg Famotidine (Pepcid) 20 mg PO DAILY [facility] Last Admin: 07/12/18 09:21 Dose: 20 mg Furosemide (Lasix) 40 mg PO DAILY [facility] Last Admin: 07/12/18 09:22 Dose: 40 mg Gabapentin (Neurontin) 300 mg PO BID [facility] Last Admin: 07/12/18 09:21 Dose: 300 mg Insulin Detemir (Levemir) 50 unit SC [facility] Last Admin: 07/11/18 21:59 Dose: 50 units Insulin Human Regular (Novolin R) 0 unit SC [facility]; Protocol Last Admin: 07/12/18 16:56 Dose: 5 units Levothyroxine Sodium (Synthroid) 150 mcg PO 0630 [facility] Last Admin: 07/12/18 06:19 Dose: 150 mcg Lisinopril (Zestril) 2.5 mg PO DAILY [facility] Last Admin: 07/12/18 09:21 Dose: 2.5 mg Magnesium Hydroxide (Milk Of Magnesia) 30 ml PO PRN PRN PRN Reason: Heartburn Methylprednisolone (Solu-Medrol) 40 mg IVP Q12 [facility] Last Admin: 07/12/18 09:22 Dose: 40 mg Metoprolol Tartrate (Lopressor) 25 mg PO BID [facility] Last Admin: 07/12/18 09:22 Dose: 25 mg Primidone (Mysoline) 100 mg PO [facility] Last Admin: 07/11/18 21:59 Dose: 100 mg Rosuvastatin Calcium (Crestor) 2.5 mg PO [facility] Last Admin: 07/11/18 21:49 Dose: 2.5 mg - Labs Labs: 07/12/18 08:13 07/12/18 08:13 PT 10.9 SECONDS (9.7-12.2) 07/07/18 10:20 INR 1.0 07/07/18 10:20 APTT 34 SECONDS (21-34) 07/07/18 10:20 - Constitutional Appears: Well - Head Exam Head Exam: ATRAUMATIC, NORMAL INSPECTION, NORMOCEPHALIC - Eye Exam Eye Exam: EOMI, Normal appearance, PERRL Pupil Exam: NORMAL ACCOMODATION, PERRL - ENT Exam ENT Exam: Mucous Membranes Moist, Normal Exam - Neck Exam Neck Exam: Full ROM, Normal Inspection. absent: Lymphadenopathy - Respiratory Exam Respiratory Exam: Decreased Breath Sounds - Cardiovascular Exam Cardiovascular Exam: REGULAR RHYTHM, +S1, +S2 - GI/Abdominal Exam GI & Abdominal Exam: Soft, Diminished Bowel Sounds - Rectal Exam Rectal Exam: Deferred
--- NOTE | 2018-07-14 17:47 | CARD ---
APPROVED REPORT Date of service: 07/07/2018 EKG Measurement Heart [id number] <Conclusion> Sinus tachycardia Otherwise normal ECG
== END 2018-07-12 17:05 | DRG 190 ==
LOC: C.ER 09:39 → C.9E 11:37 → C.5S 11:58 → C.9E 13:34 → C.9I 13:36 → C.6T 07-08 22:34
PROVIDERS: ADMIT Internal Medicine Nephrology; ATTEND Internal Medicine Nephrology
PROC: 5A09557 Assistance with Respiratory Ventilation, Greater than 96 Consecutive Hours, Continuous Positive Airway Pressure (ICD-10-PCS; principal; 2018-07-07)
DX: J44.1 Chronic obstructive pulmonary disease with (acute) exacerbation (principal); J96.02 Acute respiratory failure with hypercapnia; I10 Essential (primary) hypertension; G62.9 Polyneuropathy, unspecified; E03.9 Hypothyroidism, unspecified; G20 Parkinson's disease; F02.80 Dementia in other diseases classified elsewhere, unspecified severity, without behavioral disturbance, psychotic disturbance, mood disturbance, and anxiety; F31.9 Bipolar disorder, unspecified; G47.30 Sleep apnea, unspecified; E78.00 Pure hypercholesterolemia, unspecified; K21.9 Gastro-esophageal reflux disease without esophagitis; M17.0 Bilateral primary osteoarthritis of knee; Z96.651 Presence of right artificial knee joint; Z87.440 Personal history of urinary (tract) infections; Z87.891 Personal history of nicotine dependence; Z90.710 Acquired absence of both cervix and uterus; Z91.19 Patient's noncompliance with other medical treatment and regimen; Z82.49 Family history of ischemic heart disease and other diseases of the circulatory system

== ENCOUNTER 2018-07-13 00:09 | Inpatient (IN) | payer MEDICARE, MEDICAID ==
[2018-07-13 00:10] VITALS: BMI 55.0
--- NOTE | 2018-07-13 00:31 | C.PDOC ---
History Of Present Illness 73 y/o female pt came from the retirement to the ER. Nurse states that BiPAP was removed from pt and she desaturated. Pt has no complaint at this time. HPI cannot be obtained due to pt hx of dementia. Time Seen by Provider: 07/13/18 00:31 Chief Complaint (Nursing): Shortness Of Breath History Per: Patient History/Exam Limitations: clinical condition (dementia ) Onset/Duration Of Symptoms: Hrs Current Symptoms Are (Timing): Still Present Initiating Event: Other (removal of BiPAP) Exacerbating Factor(s): Exertion Current Respiratory Medications: See Home Med List Severity: Moderate Pain Scale Rating Of: 4 Associated Symptoms: Other Reports Recently: Seen In ED, Treated By A Physician, Hospitalized Recent travel outside of the [place]: No Additional History Per: [facility] Past Medical History Reviewed: Historical Data, Nursing Documentation, Vital Signs Vital Signs: Last Vital Signs Temp 98 F 07/13/18 00:18 Pulse 78 07/13/18 00:18 Resp 20 07/13/18 00:18 BP 119/71 07/13/18 00:18 Pulse Ox 96 07/13/18 00:18 - Medical History PMH: Anemia, Anxiety, Arthritis (B knees), Bipolar Disorder, COPD (ex-smoker), Dementia, Depression, HTN, Hypercholesterolemia, Hypothyroidism, Parkinson's Disease, Sleep Apnea (on Bipap) - [facility] Procedures ASSISTANCE WITH RESPIRATORY VENTILATION, 24-96 HRS, CPAP (06/13/18) ASSISTANCE WITH RESPIRATORY VENTILATION, <24 HRS, CPAP (06/13/18) ASSISTANCE WITH RESPIRATORY VENTILATION, >96 HRS, CPAP (05/02/18) CONTINUOUS INVASIVE MECHANICAL VENTILATION <96 CONSEC HRS (12/29/12) CONTINUOUS INVASIVE MECHANICAL VENTILATION =/>96 CONSEC HRS (02/28/13) DX ULTRASOUND-HEART (08/29/13) EXCISION OF RIGHT BREAST, OPEN APPROACH, DIAGNOSTIC (09/18/15) INCIS W REM OF FORIEGN BODY OR DEV FROM SKIN & SUBCUT TISSUE (08/29/13) INSERT ENDOTRACHEAL TUBE (02/28/13) INSERT INDWELLING CATH (12/26/12) INSERT INFUSION DEV IN R INT JUGULAR VEIN, PERC (05/02/18) INSERT VAD RESERVOIR IN CHEST SUBCU/FASCIA, PERC (05/02/18) INSERTION OF ENDOTRACHEAL AIRWAY INTO TRACHEA, ENDO (06/13/18) INSERTION OF ENDOTRACHEAL AIRWAY INTO TRACHEA, VIA OPENING (06/20/18) INSERTION OF INFUSION DEV INTO SUP VENA CAVA, PERC APPROACH (10/21/16) INSERTION OF INFUSION DEVICE INTO R BRACH ART, PERC APPROACH (12/11/17) NON-INVASIVE MECHANICAL VENTILATION (08/29/13) RESPIRATORY VENTILATION, 24-96 CONSECUTIVE HOURS (06/13/18) RESPIRATORY VENTILATION, GREATER THAN 96 CONSECUTIVE HOURS (06/20/18) Family History: States: Unknown Family Hx - Social History Hx Tobacco Use: (Unknown) Hx Alcohol Use: No Hx Substance Use: No - Immunization History Hx Tetanus Toxoid Vaccination: No Hx Influenza Vaccination: No Hx Pneumococcal Vaccination: No Review Of Systems Review Of Systems: ROS cannot be obtained secondary to pt's inabilty to answer questions. Physical Exam - Physical Exam Appears: Non-toxic, Other (obese) Skin: Warm, Dry Head: Normacephalic Eye(s): bilateral: Normal Inspection Oral Mucosa: Moist Neck: Trachea Midline, Supple Chest: Symmetrical, Other (port-a-cath on right chest wall ) Cardiovascular: Rhythm Regular Respiratory: No Rales, Rhonchi (scattered), No Wheezing Extremity: Bilateral: Normal Color And Temperature ED Course And Treatment - Laboratory Results Result Diagrams: 07/13/18 01:31 ECG: Interpreted By Me, Viewed By Me ECG Rhythm: Sinus Rhythm, Nonspecific Changes O2 Sat by Pulse Oximetry: 96 (RA) Pulse Ox Interpretation: Normal - Radiology CXR: Interpreted by Me, Viewed By Me CXR Interpretation: Yes: Cardiomegaly, Other (port r chest). No: Infiltrates, Fracture Progress Note: Impression: desaturated pt after removal of BiPAP. plans: -- ABG. -- EKG. -- chem labs. -- blood work. -- CXR. -- nebulizer. Pt was placed back on BiPAP Critical Care Time - Critical Care Note Total Time (in mins): 30 Documented critical care: time excludes all time spent performing seperately billable procedures. Disposition Counseled Patient/Family Regarding: Studies Performed, Diagnosis - Disposition Disposition: HOSPITALIZED Disposition Time: 00:31 Condition: FAIR Forms: [facility] (Maltese) - Clinical Impression Clinical Impression: Dyspnea, COPD (chronic obstructive pulmonary disease), Leukocytosis - Scribe Statement The provider has reviewed the documentation as recorded by the Scribe [place] Do Provider Attestation: All medical record entries made by the Scribe were at my direction and personally dictated by me. I have reviewed the chart and agree that the record accurately reflects my personal performance of the history, physical exam, medical decision making, and the department course for this patient. I have also personally directed, reviewed, and agree with the discharge instructions and disposition.
[2018-07-13] MEDS ORDERED: Albuterol-Ipratrop 3 mg / 0.5 (3 ml) UD ONE ×3 (01:18→09:43)
[2018-07-13] MEDS: Albuterol-Ipratrop 3 mg / 0.5 (3 ml) UD IH SCH (01:25)
[2018-07-13 01:26] LABS: ABG ALLEN TEST POS; ARTERIAL BLOOD GAS HCO3 36.3 mmol/L (21-28); ARTERIAL BLOOD GAS O2 SAT 98.1 % (95-98); ARTERIAL BLOOD GAS PCO2 65 mm/Hg (35-45); ARTERIAL BLOOD GAS PH 7.42 (7.35-7.45); ARTERIAL BLOOD GAS PO2 108 mm/Hg (80-100); ARTERIAL BLOOD GAS TCO2 44.2 mmol/L (22-28)
[2018-07-13 01:40] LABS: BASO # 0.2 K/uL (0.0-0.2); EOS # 0.1 K/uL (0.0-0.7); EOS % 0.5 % (0.0-4.0); HEMOGLOBIN 11.6 g/dL (11.0-16.0); LYMPH # 3.8 K/uL (1.0-4.3); LYMPH % 21.3 % (20.0-40.0); MEAN CELL VOLUME 86.5 fL (81.0-99.0); MEAN CORPUSCULAR HEMOGLOBIN 27.9 pg (27.0-31.0); MEAN CORPUSCULAR HGB CONC 32.3 g/dL (33.0-37.0); MEAN PLATELET VOLUME 8.6 fL (7.2-11.7); MONO # 1.1 K/uL (0.0-0.8); MONO % 6.4 % (0.0-10.0); NEUT # 12.7 K/uL (1.8-7.0); NEUT % 70.8 % (50.0-75.0); NRBC % 0.2 % (0.0-2.0); RBC 4.14 Mil/uL (3.80-5.20); RED CELL DISTRIBUTION WIDTH 15.9 % (11.5-14.5); WHITE BLOOD COUNT 17.8 K/uL (4.8-10.8)
[2018-07-13] MEDS ORDERED: Moxifloxacin IV 400mg/250ml NS 400 MG/250 ML BAG IVPB ONE ×2 (02:27→03:10)
[2018-07-13 02:56] LABS: ALB/GLOB RATIO 1.2 (1.0-2.1); ALBUMIN 3.6 g/dL (3.5-5.0); ALT/SGPT 28 U/L (9-52); AST/SGOT 20 U/L (14-36); BLOOD UREA NITROGEN 24 mg/dL (7-17); CALCIUM 8.5 mg/dl (8.6-10.4); GFR NON-AFRICAN AMERICAN > 60
[2018-07-13] MEDS ORDERED: Vancomycin 1 GM 1 GM/250 ML BAG IVPB ONE (03:10)
[2018-07-13] MEDS: Albuterol-Ipratrop 3 mg / 0.5 (3 ml) UD INH SCH ×4 (06:30→21:50)
[2018-07-13] MEDS ORDERED: Potassium Chloride 20 mEq 100 ML ONE (06:34)
--- NOTE | 2018-07-13 16:01 | RAD ---
Date of service: 07/13/2018 PROCEDURE: CHEST RADIOGRAPH, 1 VIEW HISTORY: SOB COMPARISON: 07/07/2018 FINDINGS: LUNGS: Clear. PLEURA: No pneumothorax or pleural fluid seen. CARDIOVASCULAR: No aortic atherosclerotic calcification present. Normal heart size. No congestive change. Right central venous infusion port noted. OSSEOUS STRUCTURES: No significant abnormalities. VISUALIZED UPPER ABDOMEN: Normal. OTHER FINDINGS: None. IMPRESSION: No active disease.
--- NOTE | 2018-07-13 17:49 | CP.PCM.CON ---
History of Present Illness - History of Present Illness History of Present Illness: Pulmonary Consult, Covering Dr Romeo The patient was Seen/interviewed and examined by me at the bedside, Medical records reviewed and Management issues were discussed and formulated with the house staff. Events reviewed 72 Years old morbidly obese Female with PMHx of COPD, HTN, Hypothyroidism, DM, Sleep Apnea, morbidly obesity with Probably obesity hypoventilation and Sleep Apnea (on Bipap at the custodial) Who was brought to ER by EMS from custodial with complains of shortness of breath Patient reportedly refused BIPAP while at custodial Patient with multiple admission for Acute hypoxemic Respiratory Failure and Hypercabnia Pt was recently admitted to [facility] on 06/13/18 with COPD exacerbation having to be intubated. She was Discharged on 06/18/18. In the ER, Alert and oriented to self. Breathing unlabored Afebrile, NSR on the monitor She was found to have elevated pCO2, was placed on BiPAP, more comfortable, NAD In the Er she desaturated pt after removal of BiPAP, Pt was placed back on BiPAP, Given nebulizer, ABG requested, based on the results, might request ICU evaluation ABG done on BIPAP 7.45/64/62/36.7/94.1% CXR: Cardiomegaly, + port r chest, No: Infiltrates Patient started on IV Solumedrol, Nebulizer and IV Avelox No need for ICU at this time, O2 sat. 100% on BIPAP Review of Systems - Review of Systems Systems not reviewed;Unavailable: Altered Mental Status, Uncooperative - Constitutional Constitutional: Lethargy, Snoring, Sleep Apnea. absent: Chills, Fever, Night Sweats - Cardiovascular Cardiovascular: absent: Chest Pain, Chest Pain at Rest, Chest Pain with Activity, Claudication, Diaphoresis, Irregular Heart Rhythm - Respiratory Respiratory: Cough, Dyspnea, Dyspnea on Exertion, Wheezing, Snoring, Chest Congestion. absent: Hemoptysis, Stridor, Pain on Inspiration - Gastrointestinal Gastrointestinal: absent: Abdominal Pain, Diarrhea, Hematemesis, Melena, Nausea, Vomiting - Neurological Neurological: absent: Behavioral Changes, Convulsions, Headaches, Lack of Coordination Past Patient History - Infectious Disease Hx of Infectious Diseases: None - Tetanus Immunizations Tetanus Immunization: Unknown - Past Medical History & Family History Past Medical History?: Yes - Past Social History Smoking Status: Unknown If Ever Smoked - CARDIAC Hx Hypercholesterolemia: Yes Hx Hypertension: Yes - PULMONARY Hx Chronic Obstructive Pulmonary Disease (COPD): Yes (ex-smoker) Hx Sleep Apnea: Yes (on Bipap) - NEUROLOGICAL Hx Dementia: Yes Hx Parkinson's Disease: Yes - HEENT Hx HEENT Problems: No - RENAL Hx Chronic Kidney Disease: No - ENDOCRINE/METABOLIC Hx Hypothyroidism: Yes - HEMATOLOGICAL/ONCOLOGICAL Hx Anemia: Yes - INTEGUMENTARY Hx Dermatological Problems: No - MUSCULOSKELETAL/RHEUMATOLOGICAL Hx Arthritis: Yes (B knees) - GASTROINTESTINAL Hx Gastrointestinal Disorders: Yes Hx Constipation: Yes Hx Gastroesophageal Reflux: Yes - GENITOURINARY/GYNECOLOGICAL Hx Genitourinary Disorders: Yes Hx Incontinence: Yes Hx Urinary Tract Infection: Yes - PSYCHIATRIC Hx Anxiety: Yes Hx Bipolar Disorder: Yes Hx Depression: Yes Hx Substance Use: No - SURGICAL HISTORY Hx Surgeries: Yes Hx Hysterectomy: Yes Hx Orthopedic Surgery: Yes Other/Comment: right knee replacement 2014; right knee prosthesis removal s/p infection 2014 - ANESTHESIA Hx Anesthesia: Yes Hx Anesthesia Reactions: No Hx Malignant Hyperthermia: No Meds Allergies/Adverse Reactions: Allergies Allergy/AdvReac Type Severity Reaction Status Date / Time Cephalosporins Allergy Intermediate RASH Verified 07/07/18 09:53 Penicillins Allergy Intermediate RASH Verified 07/07/18 09:53 clonazepam [From Klonopin] Allergy Verified 07/07/18 09:53 mustard Allergy Intermediate RASH Uncoded 07/07/18 09:53 Physical Exam - Constitutional Appears: No Acute Distress, Confused - Head Exam Head Exam: ATRAUMATIC, NORMAL INSPECTION, NORMOCEPHALIC - Eye Exam Eye Exam: EOMI, Normal appearance, PERRL Pupil Exam: NORMAL ACCOMODATION, PERRL - ENT Exam ENT Exam: Mucous Membranes Moist - Neck Exam Neck exam: Positive for: Full Rom, Normal Inspection. Negative for: Lymphadenopathy, Tenderness, Thyromegaly - Respiratory Exam Respiratory Exam: Decreased Breath Sounds, Prolonged Expiratory Phase, Rhonchi. absent: Accessory Muscle Use, Chest Wall Tenderness, Rales, Wheezes - Cardiovascular Exam Cardiovascular Exam: +S1, +S2. absent: Bradycardia, Tachycardia, Diastolic murmur, Systolic Murmur - GI/Abdominal Exam GI & Abdominal Exam: Distended, Soft. absent: Diminished Bowel Sounds, Firm, Guarding, Hernia, Rebound, Rigid, Tenderness - Extremities Exam Extremities exam: Positive for: normal capillary refill, normal inspection, pedal edema. Negative for: joint swelling, tenderness - Back Exam Back exam: absent: CVA tenderness (L), CVA tenderness (R) - Neurological Exam Neurological exam: Alert, Altered - Psychiatric Exam Psychiatric exam: Normal Affect, Normal Mood - Skin Skin Exam: Dry, Intact, Normal Color, Warm Results - Vital Signs Recent Vital Signs: Last Vital Signs Temp 98 F 07/13/18 04:50 Pulse 83 07/13/18 17:38 Resp 19 07/13/18 17:38 BP 114/82 07/13/18 17:38 Pulse Ox 99 07/13/18 17:38 - Labs Result Diagrams: 07/13/18 01:31 07/13/18 02:37 Labs: Laboratory Results - last 24 hr 07/13/18 07/13/18 07/13/18 01:22 01:31 02:37 WBC 17.8 H RBC 4.14 Hgb 11.6 Hct 35.8 MCV 86.5 MCH 27.9 MCHC 32.3 L RDW 15.9 H Plt Count 317 MPV 8.6 Neut % (Auto) 70.8 Lymph % (Auto) 21.3 Trinity % (Auto) 6.4 Eos % (Auto) 0.5 Baso % (Auto) 1.0 Neut # (Auto) 12.7 H Lymph # (Auto) 3.8 Trinity # (Auto) 1.1 H Eos # (Auto) 0.1 Baso # (Auto) 0.2 Puncture Site Lr pCO2 65 H pO2 108 H HCO3 36.3 H ABG pH 7.42 ABG Total CO2 44.2 H ABG O2 Saturation 98.1 H ABG Base Excess 14.5 H Donta Test Pos ABG Potassium 3.0 L A-a O2 Difference 96.0 Respiratory Index 0.9 Sodium 136.0 136 Chloride 96.0 L 91 L Glucose 191 H Lactate 1.3 Vent Mode Bipap FiO2 40.0 Inspiratory BiPAP 12 Expiratory BiPAP 6 Potassium 3.2 L Carbon Dioxide 35 H Anion Gap 14 BUN 24 H Creatinine 0.6 L Est GFR ( Amer) > 60 Est GFR (Non-Af Amer) > 60 Random Glucose 163 H Calcium 8.5 L Magnesium 2.1 Total Bilirubin 0.3 AST 20 ALT 28 Alkaline Phosphatase 70 Total Protein 6.7 Albumin 3.6 Globulin 3.1 Albumin/Globulin Ratio 1.2 Arterial Blood Potassium 3.0 L Assessment & Plan (1) COPD exacerbation Status: Acute Priority: High (2) COPD (chronic obstructive pulmonary disease) Status: Chronic Priority: High (3) Acute respiratory acidosis Status: Acute Priority: High (4) Acute respiratory failure with hypercapnia Status: Acute Priority: High (5) Acute respiratory failure with hypoxia and hypercapnia Status: Acute Priority: High (6) Altered mental status Status: Acute Priority: High (7) Dyspnea Status: Acute Priority: High - Assessment and Plan (Free Text) Assessment: Acute on chronic Hypercapneic Resp Failure 2 COPD Exacerbation R/O Pneumonia versus tracheobronchitis Obstructive sleep apnea Morbid Obesity with OHS CXR: Cardiomegaly, + port r chest, No: Infiltrates BIPAP IV steroids, IV Methylprednisolonel 60 mg IVBP Q 8H Nebulizer, Albuterol/Ipratropium INH RQ4 IV Avelox Lasix Singulair 10 mg PO HS Aggressive pulmonary toilet Maintain glycemic control DVT Prophylaxis with LMWH No need for ICU at this time, O2 sat. 100% on BIPAP Resume outpatient medications Full code
[2018-07-13] MEDS ORDERED: methylPREDNISolone 60 MG in Sodium Chloride 0.9% 100 ML IVPB SCH (20:00)
[2018-07-13] MEDS: MethylPREDNISolone 40 mg Vial IV SCH (20:25)
[2018-07-13 21:01] LABS: ARTERIAL BLOOD GAS HCO3 36.7 mmol/L (21-28); ARTERIAL BLOOD GAS O2 SAT 94.1 % (95-98); ARTERIAL BLOOD GAS PCO2 61 mm/Hg (35-45); ARTERIAL BLOOD GAS PH 7.45 (7.35-7.45); ARTERIAL BLOOD GAS PO2 62 mm/Hg (80-100); ARTERIAL BLOOD GAS TCO2 44.3 mmol/L (22-28)
[2018-07-14] MEDS: Albuterol-Ipratrop 3 mg / 0.5 (3 ml) UD INH SCH ×4 (01:20→20:16)
[2018-07-14] MEDS: Moxifloxacin IV 400mg/250ml NS 400 MG/250 ML BAG IVPB SCH (04:28)
[2018-07-14] MEDS: MethylPREDNISolone 40 mg Vial IV SCH ×3 (05:59→21:10)
[2018-07-14] MEDS ORDERED: Dextrose 50% SYRINGE Inj (50 ml) IV PRN (08:30)
[2018-07-14] MEDS ORDERED: Glucagon Recombinant 1 mg Inj IM PRN (08:30)
[2018-07-14] MEDS: Enoxaparin 40 mg Syringe SC SCH (10:00)
[2018-07-14] MEDS: (Novolin R) Insulin Human Regular 100 units/ml vial SC SCH ×3 (12:36→22:37)
[2018-07-15] MEDS: Albuterol-Ipratrop 3 mg / 0.5 (3 ml) UD INH SCH ×4 (01:40→19:58)
[2018-07-15] MEDS: Moxifloxacin IV 400mg/250ml NS 400 MG/250 ML BAG IVPB SCH (02:38)
[2018-07-15] MEDS: MethylPREDNISolone 40 mg Vial IV SCH ×3 (04:53→19:34)
[2018-07-15] MEDS: Levothyroxine 150 MCG TAB PO SCH (06:58)
[2018-07-15] MEDS: (Novolin R) Insulin Human Regular 100 units/ml vial SC SCH ×4 (08:20→21:28)
[2018-07-15] MEDS: Enoxaparin 40 mg Syringe SC SCH (09:39)
--- NOTE | 2018-07-15 16:24 | CP.PCM.PN ---
Subjective - Date & Time of Evaluation Date of Evaluation: 07/15/18 Time of Evaluation: 14:00 - Subjective Subjective: Patient seen and examined at bedside, lying down comfortably. Afebrile and in no acute distress. Denies shortness of breath, cough, chest pain, fever. Continue Duoneb, Singulair and Solu-medrol Will start low-dose Xanax for panic attacks reported by patient. Objective - Vital Signs/Intake and Output Vital Signs (last 24 hours): Temp Pulse Resp BP Pulse Ox 97 F L 117 H 20 153/80 H 97 07/15/18 07:00 07/15/18 08:00 07/15/18 07:00 07/15/18 09:38 07/15/18 07:00 Intake and Output: 07/15/18 07/15/18 06:59 18:59 Intake Total 490 Output Total 200 Balance 290 - Medications Medications: Current Medications Albuterol/Ipratropium (Duoneb 3 Mg/0.5 Mg (3 Ml) Ud) 3 ml INH RQ6 [facility] Last Admin: 07/15/18 13:50 Dose: 3 ml Dextrose (Dextrose 50% Inj) 0 ml IV STAT PRN; Protocol PRN Reason: Hypoglycemia Protocol Dextrose (Glutose 15) 0 gm PO ONCE PRN; Protocol PRN Reason: Hypoglycemia Protocol Enoxaparin Sodium (Lovenox) 40 mg SC DAILY [facility] Last Admin: 07/15/18 09:39 Dose: 40 mg Furosemide (Lasix) 40 mg PO DAILY [facility] Last Admin: 07/15/18 09:38 Dose: 40 mg Gabapentin (Neurontin) 300 mg PO BID [facility] Last Admin: 07/15/18 09:38 Dose: 300 mg Glucagon (Glucagen Diagnostic Kit) 0 mg IM STAT PRN; Protocol PRN Reason: Hypoglycemia Protocol Moxifloxacin HCl (Avelox Iv 400mg/250ml Ns) 400 mg in 250 mls @ 167 mls/hr IVPB Q24H [facility]; Protocol Last Admin: 07/15/18 02:38 Dose: 167 mls/hr Dextrose (Dextrose 5% In Water 1000 Ml) 1,000 mls @ 0 mls/hr IV .Q0M PRN; Protocol PRN Reason: Hypoglycemia Protocol Insulin Human Regular (Novolin R) 0 unit SC ACHS [facility]; Protocol Last Admin: 07/15/18 11:53 Dose: 6 units Levothyroxine Sodium (Synthroid) 150 mcg PO DAILY@0630 [facility] Last Admin: 07/15/18 06:58 Dose: 150 mcg Methylprednisolone (Solu-Medrol) 60 mg IV Q8H [facility] Last Admin: 07/15/18 13:00 Dose: 60 mg Montelukast Sodium (Singulair) 10 mg PO HS [facility] Last Admin: 07/14/18 21:11 Dose: 10 mg - Labs Labs: 07/13/18 01:31 07/13/18 02:37
--- NOTE | 2018-07-15 21:12 | CP.PCM.HP ---
Present on Admission - Present on Admission Any Indicators Present on Admission: No Past Patient History - Infectious Disease Hx of Infectious Diseases: None - Tetanus Immunizations Tetanus Immunization: Unknown - Past Medical History & Family History Past Medical History?: Yes - Past Social History Smoking Status: Unknown If Ever Smoked - CARDIAC Hx Hypertension: Yes - PULMONARY Hx Chronic Obstructive Pulmonary Disease (COPD): Yes (ex-smoker) Hx Sleep Apnea: Yes (on Bipap) - NEUROLOGICAL Hx Dementia: Yes Hx Parkinson's Disease: Yes - HEENT Hx HEENT Problems: No - RENAL Hx Chronic Kidney Disease: No - ENDOCRINE/METABOLIC Hx Hypothyroidism: Yes - HEMATOLOGICAL/ONCOLOGICAL Hx Anemia: Yes - INTEGUMENTARY Hx Dermatological Problems: No - MUSCULOSKELETAL/RHEUMATOLOGICAL Hx Arthritis: Yes - GASTROINTESTINAL Hx Gastrointestinal Disorders: Yes Hx Constipation: Yes Hx Gastroesophageal Reflux: Yes - GENITOURINARY/GYNECOLOGICAL Hx Genitourinary Disorders: Yes Hx Incontinence: Yes Hx Urinary Tract Infection: Yes - PSYCHIATRIC Hx Anxiety: Yes Hx Bipolar Disorder: Yes Hx Depression: Yes Hx Substance Use: No - SURGICAL HISTORY Hx Surgeries: Yes Hx Hysterectomy: Yes Hx Orthopedic Surgery: Yes Other/Comment: right knee replacement 2014; right knee prosthesis removal s/p infection 2015 - ANESTHESIA Hx Anesthesia: Yes Hx Anesthesia Reactions: No Hx Malignant Hyperthermia: No Meds Allergies/Adverse Reactions: Allergies Allergy/AdvReac Type Severity Reaction Status Date / Time Cephalosporins Allergy Intermediate RASH Verified 07/07/18 09:53 Penicillins Allergy Intermediate RASH Verified 07/07/18 09:53 clonazepam [From Klonopin] Allergy Verified 07/07/18 09:53 mustard Allergy Intermediate RASH Uncoded 07/07/18 09:53 Results - Vital Signs Recent Vital Signs: Last Vital Signs Temp 98.1 F 07/15/18 16:20 Pulse 83 07/15/18 20:00 Resp 20 07/15/18 16:20 BP 142/70 07/15/18 16:20 Pulse Ox 97 07/15/18 16:20 - Labs Result Diagrams: 07/13/18 01:31 07/13/18 02:37 Labs: Laboratory Results - last 24 hr 07/14/18 07/15/18 07/15/18 21:46 02:03 06:43 POC Glucose (mg/dL) 362 H 355 H 326 H 07/15/18 11:33 POC Glucose (mg/dL) 424 H*
--- NOTE | 2018-07-15 21:12 | CP.PCM.PN ---
Subjective - Date & Time of Evaluation Date of Evaluation: 07/15/18 Time of Evaluation: 07:00 - Subjective Subjective: clinically same Objective - Vital Signs/Intake and Output Vital Signs (last 24 hours): Temp Pulse Resp BP Pulse Ox 98.1 F 83 20 142/70 97 07/15/18 16:20 07/15/18 20:00 07/15/18 16:20 07/15/18 16:20 07/15/18 16:20 - Medications Medications: Current Medications Albuterol/Ipratropium (Duoneb 3 Mg/0.5 Mg (3 Ml) Ud) 3 ml INH RQ6 [facility] Last Admin: 07/15/18 19:58 Dose: 3 ml Aspirin (Aspirin Chewable) 81 mg PO DAILY [facility] Carbidopa/Levodopa (Sinemet) 1 tab PO TID [facility] Dextrose (Dextrose 50% Inj) 0 ml IV STAT PRN; Protocol PRN Reason: Hypoglycemia Protocol Dextrose (Glutose 15) 0 gm PO ONCE PRN; Protocol PRN Reason: Hypoglycemia Protocol Enoxaparin Sodium (Lovenox) 40 mg SC DAILY [facility] Last Admin: 07/15/18 09:39 Dose: 40 mg Furosemide (Lasix) 40 mg PO DAILY [facility] Last Admin: 07/15/18 09:38 Dose: 40 mg Furosemide (Lasix) 40 mg PO DAILY [facility] Gabapentin (Neurontin) 300 mg PO BID [facility] Last Admin: 07/15/18 17:18 Dose: 300 mg Gabapentin (Neurontin) 100 mg PO TID [facility] Glucagon (Glucagen Diagnostic Kit) 0 mg IM STAT PRN; Protocol PRN Reason: Hypoglycemia Protocol Moxifloxacin HCl (Avelox Iv 400mg/250ml Ns) 400 mg in 250 mls @ 167 mls/hr IVPB Q24H [facility]; Protocol Last Admin: 07/15/18 02:38 Dose: 167 mls/hr Dextrose (Dextrose 5% In Water 1000 Ml) 1,000 mls @ 0 mls/hr IV .Q0M PRN; Protocol PRN Reason: Hypoglycemia Protocol Insulin Human Regular (Novolin R) 0 unit SC ACHS [facility]; Protocol Last Admin: 07/15/18 17:19 Dose: 6 units Levothyroxine Sodium (Synthroid) 150 mcg PO DAILY@0630 [facility] Last Admin: 07/15/18 06:58 Dose: 150 mcg Levothyroxine Sodium (Synthroid) 150 mcg PO 0630 [facility] Methylprednisolone (Solu-Medrol) 60 mg IV Q8H [facility] Last Admin: 07/15/18 19:34 Dose: 60 mg Montelukast Sodium (Singulair) 10 mg PO HS [facility] Last Admin: 07/14/18 21:11 Dose: 10 mg Montelukast Sodium (Singulair) 10 mg PO HS [facility] Rosuvastatin Calcium (Crestor) 2.5 mg PO HS [facility] - Labs Labs: 07/13/18 01:31 07/13/18 02:37 - Constitutional Appears: Well - Head Exam Head Exam: ATRAUMATIC, NORMAL INSPECTION, NORMOCEPHALIC - Eye Exam Eye Exam: EOMI, Normal appearance, PERRL Pupil Exam: NORMAL ACCOMODATION, PERRL - ENT Exam ENT Exam: Mucous Membranes Moist, Normal Exam - Neck Exam Neck Exam: Full ROM, Normal Inspection. absent: Lymphadenopathy - Respiratory Exam Respiratory Exam: Decreased Breath Sounds - Cardiovascular Exam Cardiovascular Exam: REGULAR RHYTHM, +S1, +S2 - GI/Abdominal Exam GI & Abdominal Exam: Soft, Diminished Bowel Sounds - Rectal Exam Rectal Exam: Deferred
[2018-07-15] MEDS ORDERED: Rosuvastatin Calcium 2.5 mg Tab PO SCH (22:00)
[2018-07-16] MEDS: Albuterol-Ipratrop 3 mg / 0.5 (3 ml) UD INH SCH ×3 (01:14→13:50)
[2018-07-16] MEDS ORDERED: (Novolin R) Insulin Human Regular 100 units/ml vial SC ONE ×2 (02:55→16:39)
[2018-07-16] MEDS: Moxifloxacin IV 400mg/250ml NS 400 MG/250 ML BAG IVPB SCH (02:57)
[2018-07-16] MEDS: MethylPREDNISolone 40 mg Vial IV SCH (04:04)
[2018-07-16] MEDS: Levothyroxine 150 MCG TAB PO SCH (06:08)
[2018-07-16] MEDS ORDERED: Levothyroxine 150 MCG TAB PO SCH (06:30)
[2018-07-16] MEDS: (Novolin R) Insulin Human Regular 100 units/ml vial SC SCH ×3 (08:04→18:31)
[2018-07-16] MEDS: Enoxaparin 40 mg Syringe SC SCH (10:09)
[2018-07-16] MEDS ORDERED: (Lantus) Insulin Glargine, Recombinant SC STA (11:34)
[2018-07-16] MEDS ORDERED: MethylPREDNISolone 40 mg Vial IV SCH (12:00)
--- NOTE | 2018-07-16 15:11 | CP.PCM.PN ---
Subjective - Date & Time of Evaluation Date of Evaluation: 07/16/18 Time of Evaluation: 11:40 - Subjective Subjective: Patient seen and examined at bedside, lying down comfortably. Afebrile and in no acute distress. Denies shortness of breath, cough, chest pain, fever. On low-dose Xanax for panic attacks reported by patient. Objective - Vital Signs/Intake and Output Vital Signs (last 24 hours): Temp Pulse Resp BP Pulse Ox 97.8 F 68 20 150/78 97 07/16/18 07:40 07/16/18 09:50 07/16/18 07:40 07/16/18 10:10 07/16/18 07:40 Intake and Output: 07/16/18 07/16/18 06:59 18:59 Intake Total 790 Output Total 3200 1000 Balance -2410 -1000 - Medications Medications: Current Medications Albuterol/Ipratropium (Duoneb 3 Mg/0.5 Mg (3 Ml) Ud) 3 ml INH RQ6 [facility] Last Admin: 07/16/18 08:00 Dose: 3 ml Alprazolam (Xanax) 0.25 mg PO TID PRN PRN Reason: Anxiety Stop: 07/22/18 22:01 Last Admin: 07/16/18 11:54 Dose: 0.25 mg Aspirin (Aspirin Chewable) 81 mg PO DAILY [facility] Last Admin: 07/16/18 10:09 Dose: 81 mg Carbidopa/Levodopa (Sinemet) 1 tab PO TID [facility] Last Admin: 07/16/18 13:30 Dose: 1 tab Dextrose (Dextrose 50% Inj) 0 ml IV STAT PRN; Protocol PRN Reason: Hypoglycemia Protocol Dextrose (Glutose 15) 0 gm PO ONCE PRN; Protocol PRN Reason: Hypoglycemia Protocol Enoxaparin Sodium (Lovenox) 40 mg SC DAILY [facility] Last Admin: 07/16/18 10:09 Dose: 40 mg Furosemide (Lasix) 40 mg PO DAILY [facility] Last Admin: 07/16/18 10:10 Dose: 40 mg Gabapentin (Neurontin) 100 mg PO TID [facility] Last Admin: 07/16/18 14:47 Dose: 100 mg Glucagon (Glucagen Diagnostic Kit) 0 mg IM STAT PRN; Protocol PRN Reason: Hypoglycemia Protocol Moxifloxacin HCl (Avelox Iv 400mg/250ml Ns) 400 mg in 250 mls @ 167 mls/hr IVPB Q24H [facility]; Protocol Last Admin: 07/16/18 02:57 Dose: 167 mls/hr Dextrose (Dextrose 5% In Water 1000 Ml) 1,000 mls @ 0 mls/hr IV .Q0M PRN; Protocol PRN Reason: Hypoglycemia Protocol Insulin Detemir (Levemir) 50 unit SC HS [facility] Insulin Human Regular (Novolin R) 0 unit SC ACHS [facility]; Protocol Last Admin: 07/16/18 11:55 Dose: 6 units Levothyroxine Sodium (Synthroid) 150 mcg PO 0630 [facility] Last Admin: 07/16/18 09:08 Dose: Not Given Methylprednisolone (Solu-Medrol) 40 mg IV Q8H [facility] Last Admin: 07/16/18 13:30 Dose: 40 mg Montelukast Sodium (Singulair) 10 mg PO [facility] Last Admin: 07/15/18 21:24 Dose: 10 mg Rosuvastatin Calcium (Crestor) 2.5 mg PO [facility] Last Admin: 07/15/18 21:24 Dose: 2.5 mg - Labs Labs: 07/13/18 01:31 07/13/18 02:37 - Head Exam Head Exam: ATRAUMATIC, NORMOCEPHALIC - Eye Exam Eye Exam: Normal appearance - ENT Exam ENT Exam: Mucous Membranes Moist - Neck Exam Neck Exam: Normal Inspection - Respiratory Exam Respiratory Exam: Decreased Breath Sounds - Cardiovascular Exam Cardiovascular Exam: REGULAR RHYTHM - GI/Abdominal Exam GI & Abdominal Exam: Soft, Normal Bowel Sounds - Extremities Exam Extremities Exam: Normal Inspection Assessment and Plan (1) COPD (chronic obstructive pulmonary disease) Assessment & Plan: taper steroids Nebulizer treatment Glycemic control BiPAP at night Stable from pulmonary standpoint. Patient will benefit with Trilogy ventilator as patient not responding to BiPAP and PCO2 remains elevated with frequent admissions secondary to acute on chronic hypercapnic respiratory failure secondary to COPD. Status: Chronic (2) FESTUS (obstructive sleep apnea) Status: Acute (3) Hypercapnic respiratory failure Status: Acute
--- NOTE | 2018-07-16 16:56 | CP.PCM.PN ---
Subjective - Date & Time of Evaluation Date of Evaluation: 07/16/18 Time of Evaluation: 15:00 - Subjective Subjective: patient seen today , states feels better sob improved , c/o cough a febrile off bipap and saturating well -96% reported having panic attack at time s and then develops SOB started on low dose of xanax and patient tolerating Objective - Vital Signs/Intake and Output Vital Signs (last 24 hours): Temp Pulse Resp BP Pulse Ox 97.8 F 68 20 150/78 97 07/16/18 07:40 07/16/18 09:50 07/16/18 07:40 07/16/18 10:10 07/16/18 07:40 Intake and Output: 07/16/18 07/16/18 06:59 18:59 Intake Total 790 Output Total 3200 1000 Balance -2410 -1000 - Medications Medications: Current Medications Albuterol/Ipratropium (Duoneb 3 Mg/0.5 Mg (3 Ml) Ud) 3 ml INH RQ6 [facility] Last Admin: 07/16/18 13:50 Dose: 3 ml Alprazolam (Xanax) 0.25 mg PO TID PRN PRN Reason: Anxiety Stop: 07/22/18 22:01 Last Admin: 07/16/18 11:54 Dose: 0.25 mg Aspirin (Aspirin Chewable) 81 mg PO DAILY [facility] Last Admin: 07/16/18 10:09 Dose: 81 mg Carbidopa/Levodopa (Sinemet) 1 tab PO TID [facility] Last Admin: 07/16/18 13:30 Dose: 1 tab Dextrose (Dextrose 50% Inj) 0 ml IV STAT PRN; Protocol PRN Reason: Hypoglycemia Protocol Dextrose (Glutose 15) 0 gm PO ONCE PRN; Protocol PRN Reason: Hypoglycemia Protocol Enoxaparin Sodium (Lovenox) 40 mg SC DAILY [facility] Last Admin: 07/16/18 10:09 Dose: 40 mg Furosemide (Lasix) 40 mg PO DAILY [facility] Last Admin: 07/16/18 10:10 Dose: 40 mg Gabapentin (Neurontin) 100 mg PO TID [facility] Last Admin: 07/16/18 14:47 Dose: 100 mg Glucagon (Glucagen Diagnostic Kit) 0 mg IM STAT PRN; Protocol PRN Reason: Hypoglycemia Protocol Moxifloxacin HCl (Avelox Iv 400mg/250ml Ns) 400 mg in 250 mls @ 167 mls/hr IVPB Q24H [facility]; Protocol Last Admin: 07/16/18 02:57 Dose: 167 mls/hr Dextrose (Dextrose 5% In Water 1000 Ml) 1,000 mls @ 0 mls/hr IV .Q0M PRN; Protocol PRN Reason: Hypoglycemia Protocol Insulin Detemir (Levemir) 50 unit SC HS [facility] Insulin Human Regular (Novolin R) 0 unit SC ACHS [facility]; Protocol Last Admin: 07/16/18 11:55 Dose: 6 units Levothyroxine Sodium (Synthroid) 150 mcg PO 0630 [facility] Last Admin: 07/16/18 09:08 Dose: Not Given Methylprednisolone (Solu-Medrol) 40 mg IV Q8H [facility] Last Admin: 07/16/18 13:30 Dose: 40 mg Montelukast Sodium (Singulair) 10 mg PO HS [facility] Last Admin: 07/15/18 21:24 Dose: 10 mg Rosuvastatin Calcium (Crestor) 2.5 mg PO [facility] Last Admin: 07/15/18 21:24 Dose: 2.5 mg - Labs Labs: 07/13/18 01:31 07/13/18 02:37 Assessment and Plan - Assessment and Plan (Free Text) Assessment: A/P 73 yr old fmale with Anxiety, Arthritis (B knees), Bipolar Disorder, COPD (ex- smoker), Dementia, Depression, HTN, Hypercholesterolemia, Hypothyroidism, P arkinson's Disease, Sleep Apnea on Bipap at [place] admitted with hypoxia nad sob BS running high Patient didnot receive lantus last nigh t stat dose given Off BIPAP and saturating well seen by Dr. Jerez cleared for discharge to [place] today D/W Dr. jerez patient needs triology as per CM jhonathan triology will be available at facility [facility] use D/w Dr. Jerez cleared for discharge back to [place] today D/w Dr. Bowers cleared fro dsicharge back to [place] and Dr. Bowers will follow the patient at [place] Discharge plan discussed with patient
[2018-07-16 17:03] VITALS: PULSE 65; RESP 18; TEMP 98.9; O2SAT 96
[2018-07-16 18:50] VITALS: BP 157/75
[2018-07-17] MEDS ORDERED: Insulin Detemir 100 units/ml Vial (Levemir) SC SCH (22:00)
== END 2018-07-16 19:52 | disposition home or self-care (01) | DRG 190 ==
LOC: C.ER 00:09 → C.9E 02:29 → C.6T 21:57
PROVIDERS: ADMIT Internal Medicine; ATTEND Internal Medicine Nephrology
PROC: 5A09457 Assistance with Respiratory Ventilation, 24-96 Consecutive Hours, Continuous Positive Airway Pressure (ICD-10-PCS; principal; 2018-07-13)
DX: J44.1 Chronic obstructive pulmonary disease with (acute) exacerbation (principal); J96.22 Acute and chronic respiratory failure with hypercapnia; J96.21 Acute and chronic respiratory failure with hypoxia; E66.2 Morbid (severe) obesity with alveolar hypoventilation; E87.2 Acidosis; I11.0 Hypertensive heart disease with heart failure; I50.9 Heart failure, unspecified; E03.9 Hypothyroidism, unspecified; E11.9 Type 2 diabetes mellitus without complications; E78.00 Pure hypercholesterolemia, unspecified; F31.9 Bipolar disorder, unspecified; G20 Parkinson's disease; K21.9 Gastro-esophageal reflux disease without esophagitis; D64.9 Anemia, unspecified; F02.80 Dementia in other diseases classified elsewhere, unspecified severity, without behavioral disturbance, psychotic disturbance, mood disturbance, and anxiety; M19.90 Unspecified osteoarthritis, unspecified site; Z72.0 Tobacco use